=== PATIENT | male | born 1970 | race Caucasian/White ===

== ENCOUNTER 2016-09-26 16:30 | Emergency (ER) | payer BC ==
[2016-09-26 16:49] VITALS: BP 128/69; PULSE 99; RESP 16; TEMP 98.3
[2016-09-26] MEDS ORDERED: PROPARACAINE 0.5% OPHTH DROPS 15 ML BTL RIGHT EYE STA (18:45)
--- NOTE | 2016-09-26 18:52 | ED ---
Eye Problem HPI - General Chief complaint: Eye Problems Stated complaint: Eye Pain Time Seen by Provider: 09/26/16 18:38 Source: patient, RN notes reviewed, old records reviewed Mode of arrival: ambulatory Limitations: no limitations - History of Present Illness Initial comments: And is a 46-year-old male presenting plan of left eye pain for approximately 3 days. Patient reports that the pain started after trying on glasses at [facility]. Patient reports that he got a new pair of reading glasses and since then he has noticed increased redness and irritation of the left eye. He denies any drainage. He denies any foreign body to the eye. 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 Patient reports no decreased vision. He denies any pain with extraocular eye movements. He does not wear contacts. Patient denies any recent fever, chills, shortness of breath, chest pain, back pain, abdominal pain, nausea vomiting, numbness or tingling, dysuria or hematuria, constipation or diarrhea, headaches or visual changes, or any other current symptoms - Related Data Home Medications Medication Instructions Recorded Confirmed Atorvastatin [Lipitor] 10 mg PO DAILY 12/12/15 02/21/16 Citalopram Hydrobromide [CeleXA] 20 mg PO DAILY 12/12/15 02/21/16 Empagliflozin [Jardiance] 25 mg PO DAILY 12/12/15 02/21/16 Insulin Glargine [Lantus] 50 unit SQ HS 12/12/15 02/21/16 Pioglitazone [Actos] 30 mg PO DAILY 12/12/15 02/21/16 glipiZIDE [Glucotrol] 2.5 mg PO AC-BRKFST 12/12/15 02/21/16 metFORMIN HCL [Glucophage] 1,000 mg PO BID 12/12/15 02/21/16 Previous Rx's Medication Instructions Recorded Albuterol Inhaler [Ventolin Hfa 2 puff INHALATION Q4HR PRN #1 02/21/16 Inhaler] inhaler Promethazine 6.25MG/5Ml [Phenergan 6.25 mg PO Q4H #180 ml 02/21/16 Syrup] methylPREDNISolone [Medrol] 4 mg PO DIRECTED #1 tab.ds.pk 02/21/16 Allergies Allergy/AdvReac Type Severity Reaction Status Date / Time No Known Allergies Allergy Verified 09/26/16 16:49 Review of Systems ROS Statement: Those systems with pertinent positive or pertinent negative responses have been documented in the HPI. ROS Other: All systems not noted in ROS Statement are negative. Past Medical History Past Medical History: Diabetes Mellitus, Hyperlipidemia History of Any Multi-Drug Resistant Organisms: None Reported Past Surgical History: Cholecystectomy Past Psychological History: Anxiety Smoking Status: Former smoker Past Alcohol Use History: Occasional Past Drug Use History: None Reported General Exam - General Exam Comments Initial Comments: pleasant well appearing 46 year old male. Limitations: no limitations General appearance: alert, in no apparent distress Head exam: Present: atraumatic, normocephalic, normal inspection Eye exam: Present: PERRL, EOMI, conjunctival injection (left eye mild conjunctival injection. ). Absent: scleral icterus, periorbital swelling ENT exam: Present: normal exam, mucous membranes moist Neck exam: Present: normal inspection. Absent: tenderness, meningismus, lymphadenopathy Respiratory exam: Present: normal lung sounds bilaterally. Absent: respiratory distress, wheezes, rales, rhonchi, stridor Cardiovascular Exam: Present: regular rate, normal rhythm, normal heart sounds. Absent: systolic murmur, diastolic murmur, rubs, gallop, clicks GI/Abdominal exam: Present: soft, normal bowel sounds. Absent: distended, tenderness, guarding, rebound, rigid Extremities exam: Present: normal inspection, full ROM, normal capillary refill. Absent: tenderness, pedal edema, joint swelling, calf tenderness Back exam: Present: normal inspection Neurological exam: Present: alert, oriented X3, CN II-XII intact Psychiatric exam: Present: normal affect, normal mood Skin exam: Present: warm, dry, intact, normal color. Absent: rash Course Vital Signs 09/26/16 16:44 Temperature 98.3 F Pulse Rate 99 Respiratory 16 Rate Blood Pressure 128/69 O2 Sat by Pulse 97 Oximetry Procedures - Procedures Initial comment: Fluorescein eye exam preformed with 3 drops of proparicaine and a Wood's lamp. No evidence of foreign body after flipping eyelid and doing a through inspection. There is evdience of corneal abrasion at the 6 oclock position measuring 3mm. Patient tolerated the procedure well. Medical Decision Making - Medical Decision Making Patient is a 46 year old male with left eye injection for 3 days. He denies any eye drainage. Patient has evidence of a corneal abrasion at the 6 oclock position measuring 3 mm. Patient has been plaved on tobramycin drops and given a referral for opthamololgy. Patient has no changes in vision, and eyesight is 20/25 in both eyes. Patient understands treatment plan and will comply. Return parameters discussed. Disposition Clinical Impression: Corneal abrasion Disposition: HOME SELF-CARE Condition: Good Instructions: Corneal Abrasion (ED) Additional Instructions: Patient instructed to apply antibiotic drops every 4 hours as directed. Patient instructed to follow-up with primary care provider if symptoms continue to persist. Also follow-up with training director if any alarming signs or symptoms continue to occur. If any severe changes in vision return to the [facility]. Referrals: Summer De La Cruz DO [Primary Care Provider] - 1-2 days Hernandez De La Garza MD [STAFF PHYSICIAN] - 1-2 days Time of Disposition: 19:12
[2016-09-26] MEDS ORDERED: TOBRAMYCIN 0.3% OPHTH DROPS 5 ML BTL LEFT EYE STA (19:13)
== END 2016-09-26 19:22 | disposition home or self-care (01) ==
LOC: EC 16:30
DX: S05.02XA Injury of conjunctiva and corneal abrasion without foreign body, left eye, initial encounter (principal); X58.XXXA Exposure to other specified factors, initial encounter; E78.5 Hyperlipidemia, unspecified; E11.9 Type 2 diabetes mellitus without complications; Z87.891 Personal history of nicotine dependence; F41.9 Anxiety disorder, unspecified; Z79.899 Other long term (current) drug therapy; Z79.84 Long term (current) use of oral hypoglycemic drugs
CPT/HCPCS: 99283

== ENCOUNTER → 2016-10-05 | Outpatient (CLI) | payer BC ==
[2016-10-05 08:41] LABS: Hemoglobin A1C 16.2 % (4.2-6.1)
[2016-10-05 08:49] LABS: ALT 46 U/L (21-72); AST 19 U/L (17-59); Alkaline Phosphatase 113 U/L (38-126); Anion Gap 13 mmol/L; Blood Urea Nitrogen 23 mg/dL (9-20); Calcium 10.3 mg/dL (8.4-10.2); Carbon Dioxide 24 mmol/L (22-30); Chloride 102 mmol/L (98-107); HDL Cholesterol 49 mg/dL (40-60); Non-African American GFR(MDRD) >60 (>60 ml/min/1.73 sqM); Potassium 5.4 mmol/L (3.5-5.1); Sodium 139 mmol/L (137-145)
[2016-10-05 09:34] LABS: Glucose 460 mg/dL (74-99)
[2016-10-05 09:35] LABS: Cholesterol 350 mg/dL (<200); Triglycerides 511 mg/dL (<150)
== END | disposition home or self-care (01) ==
LOC: LABWHC1 07:56
PROVIDERS: ATTEND Internal Medicine Endocrinology, Diabetes & Metabolism
DX: E11.65 Type 2 diabetes mellitus with hyperglycemia (principal)
CPT/HCPCS: 36415; 80053; 80061; 82043; 83036

== ENCOUNTER 2017-04-30 12:53 | Inpatient (IN) | payer BC ==
[2017-04-30] MEDS ORDERED: SODIUM CHLORIDE 0.9% 1,000 ML IV STA ×2 (13:06→14:33)
--- NOTE | 2017-04-30 13:10 | ED ---
General Adult HPI <ArieMessi - Last Filed: 04/30/17 15:24> - General Source: patient, RN notes reviewed Mode of arrival: ambulatory Limitations: no limitations <Lakisha Gilliam - Last Filed: 04/30/17 15:28> - General Chief complaint: Skin/Abscess/Foreign Body Stated complaint: Male Time Seen by Provider: 04/30/17 13:01 - History of Present Illness Initial comments: 47-year-old male presents to the emergency department with a chief complaint of redness and swelling to the left testicle. Patient states it started as what looked like an ingrown hair and now is full testicle is red and swollen. Patient states it's very tender to touch. Patient admits to history of diabetes. He was put on Bactrim by his doctor a few days ago he states it is not getting any better. Patient denies any cough cold runny nose with this. Patient denies any nausea or vomiting. They were concerned due to the patient' s worsening symptoms so he thought that he should be seen. Patient states very tender to the touch better at rest or when not moving. Patient denies any recent fever, chills, shortness of breath, chest pain, back pain, abdominal pain , nausea vomiting, numbness or tingling, dysuria or hematuria, constipation or diarrhea, headaches or visual changes, or any other current symptoms. (Lakisha Gilliam) - Related Data Home Medications Medication Instructions Recorded Confirmed Citalopram Hydrobromide [CeleXA] 40 mg PO DAILY 12/12/15 04/30/17 Pioglitazone [Actos] 30 mg PO DAILY 12/12/15 04/30/17 Albuterol Inhaler [Ventolin Hfa 2 puff INHALATION RT-Q4H PRN 04/30/17 04/30/17 Inhaler] Dapagliflozin Propanediol [Farxiga] 10 mg PO DAILY 04/30/17 04/30/17 Liraglutide [Victoza 2-Jerry] 1.8 mg SQ DAILY 04/30/17 04/30/17 Ranitidine HCl [Zantac] 150 mg PO BID 04/30/17 04/30/17 Sulfamethox-Tmp 800-160Mg [Bactrim 1 tab PO Q12H 04/30/17 04/30/17 DS 800-160 mg] glipiZIDE [Glucotrol] 10 mg PO AC-BRKFST 04/30/17 04/30/17 metFORMIN HCL 1,000 mg PO BID 04/30/17 04/30/17 valACYclovir HCL [Valtrex] 1,000 mg PO TID 04/30/17 04/30/17 Allergies Allergy/AdvReac Type Severity Reaction Status Date / Time No Known Allergies Allergy Verified 04/30/17 14:12 Review of Systems ROS Other: All systems not noted in ROS Statement are negative. <Messi Sargent - Last Filed: 04/30/17 15:24> ROS Other: All systems not noted in ROS Statement are negative. <Lakisha Gilliam - Last Filed: 04/30/17 15:28> ROS Statement: Those systems with pertinent positive or pertinent negative responses have been documented in the HPI. Past Medical History Past Medical History: Diabetes Mellitus, Hyperlipidemia History of Any Multi-Drug Resistant Organisms: None Reported Past Surgical History: Cholecystectomy Past Psychological History: Anxiety Smoking Status: Former smoker Past Alcohol Use History: Occasional Past Drug Use History: None Reported <Lakisha Gilliam - Last Filed: 04/30/17 15:28> General Exam Limitations: no limitations General appearance: alert, in no apparent distress ENT exam: Present: normal exam, mucous membranes moist Neck exam: Present: normal inspection. Absent: tenderness, meningismus, lymphadenopathy Respiratory exam: Present: normal lung sounds bilaterally. Absent: respiratory distress, wheezes, rales, rhonchi, stridor Cardiovascular Exam: Present: regular rate, normal rhythm, normal heart sounds. Absent: systolic murmur, diastolic murmur, rubs, gallop, clicks exam: Present: testicular tenderness (To the left testicle), scrotal swelling (Left testicle), circumcision, other ( an erythematous swollen left testicle) Neurological exam: Present: alert, oriented X3 Psychiatric exam: Present: normal affect, normal mood Skin exam: Present: warm, dry, intact, normal color. Absent: rash <Lakisha Gilliam - Last Filed: 04/30/17 15:28> Medical Decision Making - Lab Data Result diagrams: 04/30/17 13:20 04/30/17 13:20 <Messi Sargent - Last Filed: 04/30/17 15:24> - Lab Data Result diagrams: 04/30/17 13:20 04/30/17 13:20 - Radiology Data Radiology results: report reviewed, image reviewed <Lakisha Gilliam - Last Filed: 04/30/17 15:28> - Medical Decision Making Medical decision-making. The patient presents with a tender swollen edematous scrotal sac for last several days. Previously on Augmentin now on Bactrim and infection swelling and pains getting worse. The patient is an insulin- dependent diabetic. Sugar is 450 in the emergency room. He states he did not take any of his antidiabetic medications today. He'll be started on fluids and insulin. The case was discussed with Dr. Dupree on-call urologist patient be admitted to Dr. Randolph with urology to consult. The patient was started on Zosyn. Dr. Sargent (Messi Sargent) 47 -year-old male presents emergency Department chief complaint of left testicular swelling with some associated drainage. At this time we will admit the patient has an elevated lactic acid. He has failed outpatient treatment. Nursing. Left scrotal cellulitis. Patient was started on Zosyn. We will consult urology admit to the patient's doctor Dr. Randolph. (Lakisha Gilliam) - Lab Data Lab Results 04/30/17 04/30/17 04/30/17 Range/Units 13:20 13:20 13:20 WBC 10.2 (3.8-10.6) k/uL RBC 4.19 L (4.30-5.90) m/uL Hgb 13.1 (13.0-17.5) gm/dL Hct 38.2 L (39.0-53.0) % MCV 91.2 (80.0-100.0) fL MCH 31.2 (25.0-35.0) pg MCHC 34.2 (31.0-37.0) g/dL RDW 14.0 (11.5-15.5) % Plt Count 231 (150-450) k/uL Neutrophils % 81 % Lymphocytes % 9 % Monocytes % 7 % Eosinophils % 1 % Basophils % 1 % Neutrophils # 8.2 H (1.3-7.7) k/uL Lymphocytes # 0.9 L (1.0-4.8) k/uL Monocytes # 0.7 (0-1.0) k/uL Eosinophils # 0.1 (0-0.7) k/uL Basophils # 0.1 (0-0.2) k/uL Sodium 135 L (137-145) mmol/L Potassium 4.3 (3.5-5.1) mmol/L Chloride 103 (98-107) mmol/L Carbon Dioxide 19 L (22-30) mmol/L Anion Gap 13 mmol/L BUN 13 (9-20) mg/dL Creatinine 0.90 (0.66-1.25) mg/dL Est GFR (MDRD) Af Amer >60 (>60 ml/min/1.73 sqM) Est GFR (MDRD) Non-Af >60 (>60 ml/min/1.73 sqM) Glucose 451 H* (74-99) mg/dL POC Glucose (mg/dL) (75-99) mg/dL POC Glu Environmental Protection Specialist ID Plasma Lactic Acid Don 2.5 H* (0.7-2.0) mmol/L Calcium 8.7 (8.4-10.2) mg/dL Total Bilirubin 0.6 (0.2-1.3) mg/dL AST 17 (17-59) U/L ALT 30 (21-72) U/L Alkaline Phosphatase 122 (38-126) U/L Total Protein 6.4 (6.3-8.2) g/dL Albumin 3.6 (3.5-5.0) g/dL Urine Color Urine Appearance (Clear) Urine pH (5.0-8.0) Ur Specific [place] (1.001-1.035) Urine Protein (Negative) Urine Glucose (UA) (Negative) Urine Ketones (Negative) Urine Blood (Negative) Urine Nitrite (Negative) Urine Bilirubin (Negative) Urine Urobilinogen (<2.0) mg/dL Ur Leukocyte Esterase (Negative) Acetone, Qual (Negative) 04/30/17 04/30/17 04/30/17 Range/Units 13:20 13:20 14:54 WBC (3.8-10.6) k/uL RBC (4.30-5.90) m/uL Hgb (13.0-17.5) gm/dL Hct (39.0-53.0) % MCV (80.0-100.0) fL MCH (25.0-35.0) pg MCHC (31.0-37.0) g/dL RDW (11.5-15.5) % Plt Count (150-450) k/uL Neutrophils % % Lymphocytes % % Monocytes % % Eosinophils % % Basophils % % Neutrophils # (1.3-7.7) k/uL Lymphocytes # (1.0-4.8) k/uL Monocytes # (0-1.0) k/uL Eosinophils # (0-0.7) k/uL Basophils # (0-0.2) k/uL Sodium (137-145) mmol/L Potassium (3.5-5.1) mmol/L Chloride (98-107) mmol/L Carbon Dioxide (22-30) mmol/L Anion Gap mmol/L BUN (9-20) mg/dL Creatinine (0.66-1.25) mg/dL Est GFR (MDRD) Af Amer (>60 ml/min/1.73 sqM) Est GFR (MDRD) Non-Af (>60 ml/min/1.73 sqM) Glucose (74-99) mg/dL POC Glucose (mg/dL) 414 H (75-99) mg/dL POC Glu Environmental Protection Specialist ID Lilian Belcher Plasma Lactic Acid Don (0.7-2.0) mmol/L Calcium (8.4-10.2) mg/dL Total Bilirubin (0.2-1.3) mg/dL AST (17-59) U/L ALT (21-72) U/L Alkaline Phosphatase (38-126) U/L Total Protein (6.3-8.2) g/dL Albumin (3.5-5.0) g/dL Urine Color Light Yellow Urine Appearance Clear (Clear) Urine pH 5.0 (5.0-8.0) Ur Specific [place] 1.027 (1.001-1.035) Urine Protein Negative (Negative) Urine Glucose (UA) 4+ H (Negative) Urine Ketones 1+ H (Negative) Urine Blood Negative (Negative) Urine Nitrite Negative (Negative) Urine Bilirubin Negative (Negative) Urine Urobilinogen <2.0 (<2.0) mg/dL Ur Leukocyte Esterase Negative (Negative) Acetone, Qual Negative (Negative) Disposition <Messi Sargent - Last Filed: 04/30/17 15:24> Decision Date: 04/30/17 Decision Time: 15:28 <Lakisha Gilliam - Last Filed: 04/30/17 15:28> Clinical Impression: Cellulitis of scrotum, Failure of outpatient treatment, Sepsis, Hyperglycemia Disposition: ADMITTED IP TO THIS [facility] Condition: Stable Referrals: Summer De La Cruz DO [Primary Care Provider] - 1-2 days
[2017-04-30 13:38] LABS: Appearance,Urine Clear (Clear); Bilirubin,Urine Negative (Negative); Glucose,Urine (UA) 4+ (Negative); Ketones,Urine 1+ (Negative); Leukocyte Esterase,Urine Negative (Negative); Nitrite,Urine Negative (Negative); Protein,Urine Negative (Negative); Specific Gravity,Urine 1.027 (1.001-1.035); UA Billing (MACRO vs. MICRO) CHEM; Urobilinogen,Urine <2.0 mg/dL (<2.0)
[2017-04-30 13:46] LABS: ALT 30 U/L (21-72); AST 17 U/L (17-59); Alkaline Phosphatase 122 U/L (38-126); Anion Gap 13 mmol/L; Basophils # (A) 0.1 k/uL (0-0.2); Basophils % (A) 1 %; Blood Urea Nitrogen 13 mg/dL (9-20); CH 32.6; CHCM 35.9; Calcium 8.7 mg/dL (8.4-10.2); Carbon Dioxide 19 mmol/L (22-30); Chloride 103 mmol/L (98-107); Eosinophils # (A) 0.1 k/uL (0-0.7); Eosinophils % (A) 1 %; HCT 38.2 % (39.0-53.0); HDW 2.91; HGB 13.1 gm/dL (13.0-17.5); Luc # (Auto) 0.23; Luc % (Auto) 2; Lymphocytes # (A) 0.9 k/uL (1.0-4.8); Lymphocytes % (A) 9 %; MCH 31.2 pg (25.0-35.0); MCHC 34.2 g/dL (31.0-37.0); MCV 91.2 fL (80.0-100.0); Mean Platelet Volume 8.8; Monocytes # (A) 0.7 k/uL (0-1.0); Monocytes % (A) 7 %; Neutrophils # (A) 8.2 k/uL (1.3-7.7); Neutrophils % (A) 81 %; Non-African American GFR(MDRD) >60 (>60 ml/min/1.73 sqM); Potassium 4.3 mmol/L (3.5-5.1); RBC 4.19 m/uL (4.30-5.90); Sodium 135 mmol/L (137-145); Total Bilirubin 0.6 mg/dL (0.2-1.3); Total Protein 6.4 g/dL (6.3-8.2); WBC 10.2 k/uL (3.8-10.6); WBC (Perox) 10.01
[2017-04-30 13:53] LABS: Glucose 451 mg/dL (74-99)
--- NOTE | 2017-04-30 14:15 | US ---
EXAMINATION TYPE: US scrotum with doppler. Grayscale and color Doppler Duplex imaging performed of juliette pickett scrotum. DATE OF EXAM: 04/30/2017 COMPARISON: NONE CLINICAL HISTORY: Pain. Pain bilaterally. Lump left testicle EXAM MEASUREMENTS: TESTICLES: Right Testicle: 3.7 x 2.4 x 2.2 cm Left Testicle: 3.3 x 1.9 x 2.8 cm EPIDIDYMIS HEAD: Right Epididymis: 2.2 cm Left Epididymis: 1.3 cm Doppler performed to assess for testicular vascularity; good bilateral color flow and waveforms are s een. There is no evidence of testicular torsion. Presence of hydroceles: yes, fluid collection lateral to right testicle = 2.7cm and lateral to left testicle = 2.8cm Presence of varicoceles: yes, medial to right testicle and lateral to left testicle Cystic area right epididymis = 0.4cm Increased size of varicoceles are seen on the bilaterally with Valsalva. Possible left inguinal herni a noted. IMPRESSION: 1. No current evidence of testicular torsion during the examination or epididymal orchitis. 2. Bilateral small hydroceles, simple on the left and minimally complex on the right. 3. Bilateral varicoceles. Nonemergent workup for the right varicocele is recommended. 4. Possible left inguinal hernia, correlate with clinical examination. 5. Benign 4 mm right epididymal cyst.
[2017-04-30] MEDS ORDERED: MORPHINE SULFATE 4 MG/ML SYRINGE IV STA (14:31)
[2017-04-30] MEDS ORDERED: INSULIN LISPRO (humaLOG) 300 UNIT/3 ML VIAL SQ ONE (14:54)
[2017-04-30] MEDS ORDERED: PIPERACILLIN-TAZOBACTAM 3.375 GM in DEXTROSE/WATER 1 50ML.BAG IVPB STA (14:54)
[2017-04-30 14:59] LABS: Glucose,Whole Blood 414 mg/dL (75-99)
[2017-04-30] MEDS ORDERED: ACETAMINOPHEN TAB 325 MG TAB PO PRN (15:28)
[2017-04-30] MEDS ORDERED: IBUPROFEN 400 MG TAB PO PRN (15:28)
[2017-04-30] MEDS ORDERED: NALOXONE 0.4 MG/ML 1 ML VIAL IV PRN (15:28)
[2017-04-30] MEDS ORDERED: MORPHINE SULFATE 4 MG/ML SYRINGE IV PRN (15:28)
[2017-04-30] MEDS ORDERED: ALBUTEROL NEBULIZED 2.5 MG/3 ML INHALATION PRN (15:30)
[2017-04-30 15:47] LABS: Glucose,Whole Blood 356 mg/dL (75-99)
[2017-04-30] MEDS: HYDROcodone/APAP 5-325MG 1 EACH TAB PO PRN (17:18)
[2017-04-30 17:25] LABS: Glucose,Whole Blood 264 mg/dL (75-99)
[2017-04-30 17:45] VITALS: BMI 32.4
[2017-04-30] MEDS: SODIUM CHLORIDE 0.9% 1,000 ML IV SCH (18:16)
[2017-04-30 18:23] LABS: Glucose,Whole Blood 290 mg/dL (75-99)
[2017-04-30] MEDS: INSULIN LISPRO (humaLOG) 300 UNIT/3 ML VIAL SQ SCH ×2 (18:31→20:50)
[2017-04-30 20:36] LABS: Hemoglobin A1C 11.9 % (4.2-6.1)
[2017-04-30 20:40] LABS: Glucose,Whole Blood 223 mg/dL (75-99)
[2017-04-30] MEDS: FAMOTIDINE 20 MG TAB PO SCH (20:49)
[2017-04-30] MEDS: valACYclovir HCL 1,000 MG TABLET PO SCH (20:49)
[2017-04-30] MEDS: metFORMIN 500 MG TAB PO SCH (20:50)
[2017-04-30] MEDS: PIPERACILLIN-TAZOBACTAM 3.375 GM in DEXTROSE/WATER 1 50ML.BAG IVPB SCH (23:02)
[2017-05-01] MEDS: SODIUM CHLORIDE 0.9% 1,000 ML IV SCH ×2 (03:07→16:01)
[2017-05-01 07:19] LABS: Glucose,Whole Blood 167 mg/dL (75-99)
[2017-05-01] MEDS: HYDROcodone/APAP 5-325MG 1 EACH TAB PO PRN ×3 (08:31→21:41)
[2017-05-01] MEDS: PIPERACILLIN-TAZOBACTAM 3.375 GM in DEXTROSE/WATER 1 50ML.BAG IVPB SCH ×2 (08:32→16:02)
[2017-05-01 08:40] LABS: Basophils # (A) 0.1 k/uL (0-0.2); Basophils % (A) 1 %; CH 31.6; CHCM 35.4; Eosinophils # (A) 0.1 k/uL (0-0.7); Eosinophils % (A) 2 %; HCT 34.1 % (39.0-53.0); HDW 3.01; HGB 12.1 gm/dL (13.0-17.5); Luc # (Auto) 0.22; Luc % (Auto) 3; Lymphocytes # (A) 1.2 k/uL (1.0-4.8); Lymphocytes % (A) 13 %; MCH 31.9 pg (25.0-35.0); MCHC 35.6 g/dL (31.0-37.0); MCV 89.5 fL (80.0-100.0); Monocytes # (A) 0.6 k/uL (0-1.0); Monocytes % (A) 6 %; Neutrophils # (A) 6.9 k/uL (1.3-7.7); Neutrophils % (A) 76 %; RDW 13.3 % (11.5-15.5); WBC (Perox) 9.26
[2017-05-01 08:58] LABS: ALT 34 U/L (21-72); AST 28 U/L (17-59); Alkaline Phosphatase 117 U/L (38-126); Anion Gap 7 mmol/L; Blood Urea Nitrogen 12 mg/dL (9-20); Calcium 7.9 mg/dL (8.4-10.2); Carbon Dioxide 23 mmol/L (22-30); Chloride 106 mmol/L (98-107); Glucose 165 mg/dL (74-99); Non-African American GFR(MDRD) >60 (>60 ml/min/1.73 sqM); Potassium 4.6 mmol/L (3.5-5.1); Sodium 136 mmol/L (137-145); Total Bilirubin 0.6 mg/dL (0.2-1.3); Total Protein 5.6 g/dL (6.3-8.2)
[2017-05-01] MEDS ORDERED: NON-FORMULARY DRUG (Dapagliflozin Propanediol [Farxiga] 10 MG) PO SCH (09:00)
[2017-05-01] MEDS ORDERED: NON-FORMULARY DRUG (Liraglutide [Victoza 2-Pak] 1.8 MG) SQ SCH (09:00)
[2017-05-01] MEDS: INSULIN LISPRO (humaLOG) 300 UNIT/3 ML VIAL SQ SCH ×4 (09:13→21:42)
[2017-05-01] MEDS: CITALOPRAM HYDROBROMIDE 20 MG TAB PO SCH (09:52)
[2017-05-01] MEDS: valACYclovir HCL 1,000 MG TABLET PO SCH ×3 (09:52→21:41)
[2017-05-01] MEDS: FAMOTIDINE 20 MG TAB PO SCH ×2 (09:52→21:41)
[2017-05-01] MEDS: metFORMIN 500 MG TAB PO SCH ×2 (09:52→21:41)
[2017-05-01] MEDS: PIOGLITAZONE 30 MG TAB PO SCH (09:53)
[2017-05-01] MEDS: glipiZIDE 10 MG TAB PO SCH (09:54)
--- NOTE | 2017-05-01 10:25 | P.HPIM ---
History of Present Illness H&P Date: 05/01/17 Chief Complaint: Scrotal cellulitis and abscess This is a 47-year-old male, patient of Dr. Baker. He has a known past medical history of diabetes mellitus and hyperlipidemia. Patient presents to the emergency room with increased scrotal swelling and pain and tenderness in the left testicle. Patient has a wound with some drainage coming out of it on the left testicle. Patient reports that he thinks it was an ingrown hair. And also that he had tried to pop it at one point. The symptoms started last Monday. He's been on Augmentin and Bactrim with no improvement in symptoms. He did feel some slight fever at home. But since his symptoms were not improving with antibiotics he presented to the emergency room for further evaluation and treatment. Patient was started on IV Zosyn and urology was consulted. Patient is scheduled for an I&D with urology this afternoon. He also had a blood sugar of 451. Hemoglobin A1c is 11.9. Patient reports that he has been taking his diabetes meds at home however he has not been following a very strict diet. Patient denies any chills or sweats. Denies any nausea or vomiting. Denies any bowel movement changes or urinary symptoms. Review of Systems Please refer to HPI otherwise unremarkable Past Medical History Past Medical History: Diabetes Mellitus, Hyperlipidemia History of Any Multi-Drug Resistant Organisms: None Reported Past Surgical History: Cholecystectomy Past Anesthesia/Blood Transfusion Reactions: No Reported Reaction Past Psychological History: Anxiety Smoking Status: Former smoker Past Alcohol Use History: None Reported, Occasional Past Drug Use History: None Reported - Past Family History Mother Family Medical History: Diabetes Mellitus Medications and Allergies Home Medications Medication Instructions Recorded Confirmed Type Citalopram Hydrobromide [CeleXA] 40 mg PO DAILY 12/12/15 04/30/17 History Pioglitazone [Actos] 30 mg PO DAILY 12/12/15 04/30/17 History Albuterol Inhaler [Ventolin Hfa 2 puff INHALATION RT-Q4H PRN 04/30/17 04/30/17 History Inhaler] Dapagliflozin Propanediol [Farxiga] 10 mg PO DAILY 04/30/17 04/30/17 History Liraglutide [Victoza 2-Jerry] 1.8 mg SQ DAILY 04/30/17 04/30/17 History Ranitidine HCl [Zantac] 150 mg PO BID 04/30/17 04/30/17 History Sulfamethox-Tmp 800-160Mg [Bactrim 1 tab PO Q12H 04/30/17 04/30/17 History DS 800-160 mg] glipiZIDE [Glucotrol] 10 mg PO AC-BRKFST 04/30/17 04/30/17 History metFORMIN HCL 1,000 mg PO BID 04/30/17 04/30/17 History valACYclovir HCL [Valtrex] 1,000 mg PO TID 04/30/17 04/30/17 History Allergies Allergy/AdvReac Type Severity Reaction Status Date / Time No Known Allergies Allergy Verified 04/30/17 14:12 Physical Exam Vitals: Vital Signs Temp Pulse Pulse Resp BP BP Pulse Ox 05/01/17 08:00 16 05/01/17 07:00 98.5 F 81 16 109/61 98 04/30/17 21:34 98.7 F 80 16 103/62 100 04/30/17 17:48 99 F 85 16 107/57 97 04/30/17 17:23 98.4 F 68 17 119/70 98 04/30/17 15:39 61 18 121/60 97 04/30/17 12:54 99.1 F 78 18 133/69 99 Intake and Output 04/30/17 05/01/17 05/01/17 22:59 06:59 14:59 Intake Total 300 800 Balance 300 800 Intake: IV 300 800 Sodium Chloride 0.9% 1, 300 800 000 ml @ 100 mls/hr IV . Q10H [facility] Rx#:[id number] Other: Voiding Method Toilet Toilet # Voids 1 1 1 Weight 94 kg 94 kg 94 kg Patient Weight 05/02/17 06:59 Weight 94 kg Head normocephalic Neck supple Lungs clear to auscultation bilaterally no wheezing or crackles Heart regular rate and rhythm S1-S2, no rub or gallop Abdomen is soft nontender nondistended positive bowel sounds no hepatosplenomegaly Extremities no edema Neuro alert and orientated to 3 : Scrotum is red and swollen. Top of left testicle wound present with scabbing. From and tender with palpation Results CBC & Chem 7: 05/01/17 07:43 05/01/17 07:43 Labs: Abnormal Lab Results - Last 24 Hours (Table) 04/30/17 04/30/17 04/30/17 Range/Units 13:20 13:20 13:20 RBC 4.19 L (4.30-5.90) m/uL Hgb (13.0-17.5) gm/dL Hct 38.2 L (39.0-53.0) % Neutrophils # 8.2 H (1.3-7.7) k/uL Lymphocytes # 0.9 L (1.0-4.8) k/uL Sodium 135 L (137-145) mmol/L Carbon Dioxide 19 L (22-30) mmol/L Glucose 451 H* (74-99) mg/dL POC Glucose (mg/dL) (75-99) mg/dL Hemoglobin A1c (4.2-6.1) % Plasma Lactic Acid Don 2.5 H* (0.7-2.0) mmol/L Calcium (8.4-10.2) mg/dL Total Protein (6.3-8.2) g/dL Albumin (3.5-5.0) g/dL Urine Glucose (UA) (Negative) Urine Ketones (Negative) 04/30/17 04/30/17 04/30/17 Range/Units 13:20 13:20 14:54 RBC (4.30-5.90) m/uL Hgb (13.0-17.5) gm/dL Hct (39.0-53.0) % Neutrophils # (1.3-7.7) k/uL Lymphocytes # (1.0-4.8) k/uL Sodium (137-145) mmol/L Carbon Dioxide (22-30) mmol/L Glucose (74-99) mg/dL POC Glucose (mg/dL) 414 H (75-99) mg/dL Hemoglobin A1c 11.9 H (4.2-6.1) % Plasma Lactic Acid Don (0.7-2.0) mmol/L Calcium (8.4-10.2) mg/dL Total Protein (6.3-8.2) g/dL Albumin (3.5-5.0) g/dL Urine Glucose (UA) 4+ H (Negative) Urine Ketones 1+ H (Negative) 04/30/17 04/30/17 04/30/17 Range/Units 15:44 17:22 18:13 RBC (4.30-5.90) m/uL Hgb (13.0-17.5) gm/dL Hct (39.0-53.0) % Neutrophils # (1.3-7.7) k/uL Lymphocytes # (1.0-4.8) k/uL Sodium (137-145) mmol/L Carbon Dioxide (22-30) mmol/L Glucose (74-99) mg/dL POC Glucose (mg/dL) 356 H 264 H 290 H (75-99) mg/dL Hemoglobin A1c (4.2-6.1) % Plasma Lactic Acid Don (0.7-2.0) mmol/L Calcium (8.4-10.2) mg/dL Total Protein (6.3-8.2) g/dL Albumin (3.5-5.0) g/dL Urine Glucose (UA) (Negative) Urine Ketones (Negative) 04/30/17 05/01/17 05/01/17 Range/Units 20:39 07:16 07:43 RBC 3.80 L (4.30-5.90) m/uL Hgb 12.1 L (13.0-17.5) gm/dL Hct 34.1 L (39.0-53.0) % Neutrophils # (1.3-7.7) k/uL Lymphocytes # (1.0-4.8) k/uL Sodium (137-145) mmol/L Carbon Dioxide (22-30) mmol/L Glucose (74-99) mg/dL POC Glucose (mg/dL) 223 H 167 H (75-99) mg/dL Hemoglobin A1c (4.2-6.1) % Plasma Lactic Acid Don (0.7-2.0) mmol/L Calcium (8.4-10.2) mg/dL Total Protein (6.3-8.2) g/dL Albumin (3.5-5.0) g/dL Urine Glucose (UA) (Negative) Urine Ketones (Negative) 05/01/17 Range/Units 07:43 RBC (4.30-5.90) m/uL Hgb (13.0-17.5) gm/dL Hct (39.0-53.0) % Neutrophils # (1.3-7.7) k/uL Lymphocytes # (1.0-4.8) k/uL Sodium 136 L (137-145) mmol/L Carbon Dioxide (22-30) mmol/L Glucose 165 H (74-99) mg/dL POC Glucose (mg/dL) (75-99) mg/dL Hemoglobin A1c (4.2-6.1) % Plasma Lactic Acid Don (0.7-2.0) mmol/L Calcium 7.9 L (8.4-10.2) mg/dL Total Protein 5.6 L (6.3-8.2) g/dL Albumin 2.8 L (3.5-5.0) g/dL Urine Glucose (UA) (Negative) Urine Ketones (Negative) Thrombosis Risk Factor Assmnt - Choose All That Apply Each Factor Represents 1 point: Age 41-60 years, Obesity (BMI >25), Sepsis (< 1month) Each Risk Factor Represents 2 Points: Patient confined to bed Other congenital or acquired thrombophilia - If yes, enter type in comment: No Thrombosis Risk Factor Assessment Total Risk Factor Score: 5 Thrombosis Risk Factor Assessment Level: High Risk Assessment and Plan Plan: 1. Scrotal cellulitis and left testicular abscess: Continue IV Zosyn. Urology consulted and plan for I&D this afternoon. Failed outpatient antibiotics. 2. Elevated lactic acid on admission now improved secondary to the left testicular abscess and cellulitis 3. Diabetes mellitus type 2 with uncontrolled blood sugars. Blood sugar 451 on admission with a hemoglobin A1c of 11.9. Blood sugars now 167. Continue sliding scale coverage. He is nothing by mouth. Continue metformin. Acetone negative 4. Hyperlipidemia GI prophylaxis Pepcid and DVT prophylaxis will give SCDs since patient is having surgical procedure Time with Patient: Greater than 30 (Greater than 50% of the total time spent in counseling and coordination of care.I performed an examination of the patient and discussed their management with the physician Sergeant At Arms. I have reviewed the Physician Sergeant At [employer]'s notes and agree with the documented findings and plan of care)
[2017-05-01 11:31] LABS: Glucose,Whole Blood 135 mg/dL (75-99)
--- NOTE | 2017-05-01 16:36 | P.GSCN ---
History of Present Illness Consult date: 05/01/17 Reason for Consult: Scrotal pain and swelling Requesting physician: Michael Randolph History of present illness: The patient is a 47-year-old white male who has experienced left scrotal pain and swelling since April 26, 2017. He saw Dr. De La Cruz at that time, and was placeon [facility]. However, his condition has worsened. He initially felt that he had an ingrown hair. He has had no prior similar episodes. Review of Systems - Constitutional Reports chills, Reports fever - Gastrointestinal Denies nausea, Denies vomiting - Genitourinary Denies dysuria, Denies hematuria Past Medical History Past Medical History: Diabetes Mellitus, Hyperlipidemia History of Any Multi-Drug Resistant Organisms: None Reported Past Surgical History: Cholecystectomy Past Anesthesia/Blood Transfusion Reactions: No Reported Reaction Past Psychological History: Anxiety Smoking Status: Former smoker Past Alcohol Use History: None Reported, Occasional Past Drug Use History: None Reported - Past Family History Mother Family Medical History: Diabetes Mellitus Medications and Allergies Home Medications Medication Instructions Recorded Confirmed Type Citalopram Hydrobromide [CeleXA] 40 mg PO DAILY 12/12/15 04/30/17 History Pioglitazone [Actos] 30 mg PO DAILY 12/12/15 04/30/17 History Albuterol Inhaler [Ventolin Hfa 2 puff INHALATION RT-Q4H PRN 04/30/17 04/30/17 History Inhaler] Dapagliflozin Propanediol [Farxiga] 10 mg PO DAILY 04/30/17 04/30/17 History Liraglutide [Victoza 2-Jerry] 1.8 mg SQ DAILY 04/30/17 04/30/17 History Ranitidine HCl [Zantac] 150 mg PO BID 04/30/17 04/30/17 History Sulfamethox-Tmp 800-160Mg [Bactrim 1 tab PO Q12H 04/30/17 04/30/17 History DS 800-160 mg] glipiZIDE [Glucotrol] 10 mg PO AC-BRKFST 04/30/17 04/30/17 History metFORMIN HCL 1,000 mg PO BID 04/30/17 04/30/17 History valACYclovir HCL [Valtrex] 1,000 mg PO TID 04/30/17 04/30/17 History Allergies Allergy/AdvReac Type Severity Reaction Status Date / Time No Known Allergies Allergy Verified 04/30/17 14:12 Surgical - Exam Vital Signs Temp Pulse Resp BP Pulse Ox 99.1 F 78 18 133/69 99 04/30/17 12:54 04/30/17 12:54 04/30/17 12:54 04/30/17 12:54 04/30/17 12:54 - General well developed, well nourished, no distress - Respiratory normal respiratory effort - Genitourinary normal penis with no external lesions, other (moderate left scrotal edema, with a small area of fluctuance on the upper anterior aspect of the left hemiscrotum) Results - Labs 05/01/17 07:43 05/01/17 07:43 Abnormal Lab Results - Last 24 Hours (Table) 04/30/17 04/30/17 04/30/17 Range/Units 13:20 13:20 13:20 RBC 4.19 L (4.30-5.90) m/uL Hct 38.2 L (39.0-53.0) % Neutrophils # 8.2 H (1.3-7.7) k/uL Lymphocytes # 0.9 L (1.0-4.8) k/uL Sodium 135 L (137-145) mmol/L Carbon Dioxide 19 L (22-30) mmol/L Glucose 451 H* (74-99) mg/dL POC Glucose (mg/dL) (75-99) mg/dL Hemoglobin A1c (4.2-6.1) % Plasma Lactic Acid Don 2.5 H* (0.7-2.0) mmol/L Urine Glucose (UA) (Negative) Urine Ketones (Negative) 04/30/17 04/30/17 04/30/17 Range/Units 13:20 13:20 14:54 RBC (4.30-5.90) m/uL Hct (39.0-53.0) % Neutrophils # (1.3-7.7) k/uL Lymphocytes # (1.0-4.8) k/uL Sodium (137-145) mmol/L Carbon Dioxide (22-30) mmol/L Glucose (74-99) mg/dL POC Glucose (mg/dL) 414 H (75-99) mg/dL Hemoglobin A1c 11.9 H (4.2-6.1) % Plasma Lactic Acid Don (0.7-2.0) mmol/L Urine Glucose (UA) 4+ H (Negative) Urine Ketones 1+ H (Negative) 04/30/17 04/30/17 04/30/17 Range/Units 15:44 17:22 18:13 RBC (4.30-5.90) m/uL Hct (39.0-53.0) % Neutrophils # (1.3-7.7) k/uL Lymphocytes # (1.0-4.8) k/uL Sodium (137-145) mmol/L Carbon Dioxide (22-30) mmol/L Glucose (74-99) mg/dL POC Glucose (mg/dL) 356 H 264 H 290 H (75-99) mg/dL Hemoglobin A1c (4.2-6.1) % Plasma Lactic Acid Don (0.7-2.0) mmol/L Urine Glucose (UA) (Negative) Urine Ketones (Negative) 04/30/17 Range/Units 20:39 RBC (4.30-5.90) m/uL Hct (39.0-53.0) % Neutrophils # (1.3-7.7) k/uL Lymphocytes # (1.0-4.8) k/uL Sodium (137-145) mmol/L Carbon Dioxide (22-30) mmol/L Glucose (74-99) mg/dL POC Glucose (mg/dL) 223 H (75-99) mg/dL Hemoglobin A1c (4.2-6.1) % Plasma Lactic Acid Don (0.7-2.0) mmol/L Urine Glucose (UA) (Negative) Urine Ketones (Negative) Diabetes panel 04/30/17 04/30/17 Range/Units 13:20 13:20 Sodium 135 L (137-145) mmol/L Potassium 4.3 (3.5-5.1) mmol/L Chloride 103 (98-107) mmol/L Carbon Dioxide 19 L (22-30) mmol/L BUN 13 (9-20) mg/dL Creatinine 0.90 (0.66-1.25) mg/dL Glucose 451 H* (74-99) mg/dL Hemoglobin A1c 11.9 H (4.2-6.1) % Calcium 8.7 (8.4-10.2) mg/dL AST 17 (17-59) U/L ALT 30 (21-72) U/L Alkaline Phosphatase 122 (38-126) U/L Total Protein 6.4 (6.3-8.2) g/dL Albumin 3.6 (3.5-5.0) g/dL Calcium panel 04/30/17 Range/Units 13:20 Calcium 8.7 (8.4-10.2) mg/dL Albumin 3.6 (3.5-5.0) g/dL Pituitary panel 04/30/17 Range/Units 13:20 Sodium 135 L (137-145) mmol/L Potassium 4.3 (3.5-5.1) mmol/L Chloride 103 (98-107) mmol/L Carbon Dioxide 19 L (22-30) mmol/L BUN 13 (9-20) mg/dL Creatinine 0.90 (0.66-1.25) mg/dL Glucose 451 H* (74-99) mg/dL Calcium 8.7 (8.4-10.2) mg/dL Adrenal panel 04/30/17 Range/Units 13:20 Sodium 135 L (137-145) mmol/L Potassium 4.3 (3.5-5.1) mmol/L Chloride 103 (98-107) mmol/L Carbon Dioxide 19 L (22-30) mmol/L BUN 13 (9-20) mg/dL Creatinine 0.90 (0.66-1.25) mg/dL Glucose 451 H* (74-99) mg/dL Calcium 8.7 (8.4-10.2) mg/dL Total Bilirubin 0.6 (0.2-1.3) mg/dL AST 17 (17-59) U/L ALT 30 (21-72) U/L Alkaline Phosphatase 122 (38-126) U/L Total Protein 6.4 (6.3-8.2) g/dL Albumin 3.6 (3.5-5.0) g/dL Assessment and Plan (1) Scrotal abscess Status: Acute Plan: The patient is a 47-year-old Diabetic male with progressive left scrotal pain and swelling. Ultrasound revealed possible hydroceles, but an abscess is clinically suspected. For this reason, I have suggested he undergo incision and drainage with possible drain placement. The rationale for this procedure was discussed, as were potential risks. These include anesthesia, persistent infection, and testicular injury. Time with Patient: Greater than 30
[2017-05-01 16:55] LABS: Glucose,Whole Blood 101 mg/dL (75-99)
[2017-05-01] MEDS ORDERED: ONDANSETRON 4 MG/2 ML VIAL IVP ONE (16:59)
[2017-05-01] MEDS ORDERED: IV FLUID CONTINUATION 1,000 ML IV ONE (17:00)
[2017-05-01] MEDS ORDERED: LIDOCAINE 1% INJ 10MG/ML (20 ML MDV) ONE (17:17)
[2017-05-01] MEDS ORDERED: PROPOFOL 10 MG/ML 20 ML VIAL IV ONE (17:17)
[2017-05-01] MEDS ORDERED: MIDAZOLAM 2 MG/2 ML VIAL ONE (17:17)
[2017-05-01] MEDS ORDERED: fentaNYL (PF) 50 MCG/ML 2 ML AMP ONE (17:17)
--- NOTE | 2017-05-01 17:48 | P.OP ---
Date of Procedure: 05/01/17 Preoperative Diagnosis: Left Scrotal Abscess Postoperative Diagnosis: Same Procedure(s) Performed: Incision and Drainage of Left Scrotal Abscess Implants: Anesthesia: CHANTALA Surgeon: Rd Ortega Estimated Blood Loss (ml): 20 IV fluids (ml): 300 Pathology: none sent Condition: stable Disposition: PACU Indications for Procedure: The patient is a 47-year-old male who developed left scrotal pain and swelling on 04/26/2017. His condition has worsened despite treatment with Bactrim. He is presumed to have a left scrotal abscess and comes for incision and drainage. Operative Findings: Abscess involving the upper left hemiscrotum. Description of Procedure: The patient was taken to the operating room and placed in the supine position, with his legs frog legged. The external genitalia was prepped and draped sterilely. The scrotum was examined. A small opening was present on the anterior aspect of the left upper hemiscrotum. Purulence could be expressed through this. Cultures were sent. The scalpel was then used to make a transverse incision to enlarge this opening to approximately 1 cm in length. A hemostat was passed into the wound to break down any loculations, thus opening the abscess cavity. The cavity extended superiorly only approximately 5 millimeters. Inferiorly, the cavity extended 3-4 cm. The cavity extended medially somewhat, but not at all laterally. The hemostat was passed inferiorly , and the scalpel was used to make a counterincision through the scrotal skin at the inferior aspect of the abscess cavity. The wound was then irrigated with 0.9 normal saline. A quarter-inch [place] drain was passed between the 2 incisions, and was sutured in place. The wound was again irrigated. There was no residual purulence. The wound was then packed with iodoform gauze. Blood loss was minimal. All sponge and needle counts were correct. Fluffs were placed over the incisions, followed by a scrotal support. The patient tolerated the procedure well was taken to the recovery room in stable condition.
[2017-05-01 18:09] LABS: Glucose,Whole Blood 105 mg/dL (75-99)
[2017-05-01 19:44] LABS: Glucose,Whole Blood 150 mg/dL (75-99)
[2017-05-02] MEDS: PIPERACILLIN-TAZOBACTAM 3.375 GM in DEXTROSE/WATER 1 50ML.BAG IVPB SCH ×4 (00:08→23:39)
[2017-05-02] MEDS: SODIUM CHLORIDE 0.9% 1,000 ML IV SCH ×3 (00:08→22:33)
[2017-05-02] MEDS: HYDROcodone/APAP 5-325MG 1 EACH TAB PO PRN ×3 (07:12→19:49)
[2017-05-02] MEDS: glipiZIDE 10 MG TAB PO SCH (07:12)
[2017-05-02 07:22] LABS: Glucose,Whole Blood 168 mg/dL (75-99)
[2017-05-02 07:54] LABS: Basophils # (A) 0.1 k/uL (0-0.2); Basophils % (A) 1 %; CH 32.5; CHCM 35.1; Eosinophils # (A) 0.2 k/uL (0-0.7); Eosinophils % (A) 2 %; HCT 35.8 % (39.0-53.0); HDW 2.98; HGB 11.9 gm/dL (13.0-17.5); Luc # (Auto) 0.21; Luc % (Auto) 3; Lymphocytes # (A) 1.1 k/uL (1.0-4.8); Lymphocytes % (A) 13 %; MCHC 33.3 g/dL (31.0-37.0); Mean Platelet Volume 8.5; Monocytes # (A) 0.5 k/uL (0-1.0); Monocytes % (A) 6 %; Neutrophils # (A) 6.4 k/uL (1.3-7.7); Neutrophils % (A) 76 %; RBC 3.84 m/uL (4.30-5.90); RDW 13.7 % (11.5-15.5); WBC 8.4 k/uL (3.8-10.6)
[2017-05-02] MEDS: INSULIN LISPRO (humaLOG) 300 UNIT/3 ML VIAL SQ SCH ×4 (07:56→20:23)
[2017-05-02] MEDS: metFORMIN 500 MG TAB PO SCH ×2 (07:57→20:22)
[2017-05-02] MEDS: FAMOTIDINE 20 MG TAB PO SCH ×2 (07:57→20:22)
[2017-05-02] MEDS: PIOGLITAZONE 30 MG TAB PO SCH (07:57)
[2017-05-02] MEDS: valACYclovir HCL 1,000 MG TABLET PO SCH ×3 (07:57→22:32)
[2017-05-02] MEDS: CITALOPRAM HYDROBROMIDE 20 MG TAB PO SCH (07:57)
[2017-05-02 08:27] LABS: ALT 38 U/L (21-72); AST 22 U/L (17-59); Alkaline Phosphatase 144 U/L (38-126); Anion Gap 10 mmol/L; Blood Urea Nitrogen 11 mg/dL (9-20); Calcium 8.2 mg/dL (8.4-10.2); Carbon Dioxide 20 mmol/L (22-30); Chloride 107 mmol/L (98-107); Glucose 163 mg/dL (74-99); Non-African American GFR(MDRD) >60 (>60 ml/min/1.73 sqM); Potassium 4.9 mmol/L (3.5-5.1); Sodium 137 mmol/L (137-145); Total Bilirubin 0.5 mg/dL (0.2-1.3); Total Protein 5.9 g/dL (6.3-8.2)
--- NOTE | 2017-05-02 10:51 | P.PN ---
Subjective Principal diagnosis: POD #1, s/p I & D of scrotal abscess Patient states he is feeling much better. Objective - Vital Signs Vital signs: Vital Signs Temp 97.1 F L 05/02/17 07:00 Pulse 84 05/02/17 07:34 Resp 18 05/02/17 07:00 BP 115/59 05/02/17 07:00 Pulse Ox 96 05/02/17 07:24 Intake & Output 05/01/17 05/02/17 05/02/17 18:59 06:59 18:59 Intake Total 350 1490 Output Total 20 Balance 330 1490 Weight 94 kg Intake: IV 350 900 Sodium Chloride 0.9% 1, 900 000 ml @ 100 mls/hr IV . Q10H LUIZA Rx#:[id number] Oral 590 Output: Estimated Blood Loss 20 Other: Voiding Method Toilet Toilet # Voids 1 2 - Constitutional General appearance: Present: cooperative, no acute distress - Genitourinary Genitourinary Comment(s): Normal phallus. Mild serosanguinous scrotal drainage. Packing removed. No purulence. - Psychiatric Psychiatric: Present: A&O x's 3, appropriate affect - Labs CBC & Chem 7: 05/02/17 07:22 05/02/17 07:22 Labs: Abnormal Lab Results - Last 24 Hours (Table) 05/01/17 05/01/17 05/01/17 Range/Units 11:27 16:53 18:05 RBC (4.30-5.90) m/uL Hgb (13.0-17.5) gm/dL Hct (39.0-53.0) % Carbon Dioxide (22-30) mmol/L Glucose (74-99) mg/dL POC Glucose (mg/dL) 135 H 101 H 105 H (75-99) mg/dL Calcium (8.4-10.2) mg/dL Alkaline Phosphatase (38-126) U/L Total Protein (6.3-8.2) g/dL Albumin (3.5-5.0) g/dL 05/01/17 05/02/17 05/02/17 Range/Units 19:41 07:21 07:22 RBC 3.84 L (4.30-5.90) m/uL Hgb 11.9 L (13.0-17.5) gm/dL Hct 35.8 L (39.0-53.0) % Carbon Dioxide (22-30) mmol/L Glucose (74-99) mg/dL POC Glucose (mg/dL) 150 H 168 H (75-99) mg/dL Calcium (8.4-10.2) mg/dL Alkaline Phosphatase (38-126) U/L Total Protein (6.3-8.2) g/dL Albumin (3.5-5.0) g/dL 05/02/17 Range/Units 07:22 RBC (4.30-5.90) m/uL Hgb (13.0-17.5) gm/dL Hct (39.0-53.0) % Carbon Dioxide 20 L (22-30) mmol/L Glucose 163 H (74-99) mg/dL POC Glucose (mg/dL) (75-99) mg/dL Calcium 8.2 L (8.4-10.2) mg/dL Alkaline Phosphatase 144 H (38-126) U/L Total Protein 5.9 L (6.3-8.2) g/dL Albumin 2.9 L (3.5-5.0) g/dL Microbiology - Last 24 Hours (Table) 05/01/17 17:30 Gram Stain - Preliminary Scrotum Wound Culture - Preliminary 05/01/17 17:30 Anaerobic Culture - Preliminary Scrotum 04/30/17 13:20 Blood Culture - Preliminary Blood No Growth after 24 hours Assessment and Plan (1) Scrotal abscess Status: Acute Plan: Continue Zosyn. Cultures pending. Local wound care.
[2017-05-02 12:02] LABS: Glucose,Whole Blood 198 mg/dL (75-99)
--- NOTE | 2017-05-02 17:05 | P.PN ---
Subjective This is a 47-year-old male, patient of Dr. Baker. He has a known past medical history of diabetes mellitus and hyperlipidemia. Patient presents to the emergency room with increased scrotal swelling and pain and tenderness in the left testicle. Patient has a wound with some drainage coming out of it on the left testicle. Patient reports that he thinks it was an ingrown hair. And also that he had tried to pop it at one point. The symptoms started last Monday. He's been on Augmentin and Bactrim with no improvement in symptoms. He did feel some slight fever at home. But since his symptoms were not improving with antibiotics he presented to the emergency room for further evaluation and treatment. Patient was started on IV Zosyn and urology was consulted. Patient is scheduled for an I&D with urology this afternoon. He also had a blood sugar of 451. Hemoglobin A1c is 11.9. Patient reports that he has been taking his diabetes meds at home however he has not been following a very strict diet. Patient denies any chills or sweats. Denies any nausea or vomiting. Denies any bowel movement changes or urinary symptoms. On 05/02/2017 patient was seen and examined pain and discomfort in the scrotal area has improved significantly, otherwise he denies any complaints, patient continues to receive Zosyn, cultures are still pending without any growth so far. Patient is maintained on insulin for glucose control Objective - Vital Signs Vital signs: Vital Signs Temp 98.1 F 05/02/17 15:00 Pulse 77 05/02/17 15:00 Resp 18 05/02/17 15:00 BP 117/60 05/02/17 15:00 Pulse Ox 95 05/02/17 15:00 Intake & Output 05/01/17 05/02/17 05/02/17 18:59 06:59 18:59 Intake Total 350 1490 800 Output Total 20 Balance 330 1490 800 Weight 94 kg Intake: IV 350 900 800 Sodium Chloride 0.9% 1, 900 800 000 ml @ 100 mls/hr IV . Q10H LUIZA Rx#:[id number] Oral 590 Output: Estimated Blood Loss 20 Other: Voiding Method Toilet Toilet # Voids 1 2 4 - Exam In general patient is alert and oriented 3 in no apparent distress HEENT head normocephalic and atraumatic Neck is supple no JVD no goiter no lymphadenopathy Chest exam reveals a scattered crackles in both bases no wheezing Cardiac exam reveals regular heart sounds S1 and S2 no gallops no murmurs Abdomen is soft nontender no organomegaly with normal bowel sounds Extremity exam reveals no edema no cyanosis or clubbing : Scrotum is red and swollen. Top of left testicle wound present with scabbing, tender with palpation. - Labs CBC & Chem 7: 05/02/17 07:22 05/02/17 07:22 Labs: Abnormal Lab Results - Last 24 Hours (Table) 05/01/17 05/01/17 05/02/17 Range/Units 18:05 19:41 07:21 RBC (4.30-5.90) m/uL Hgb (13.0-17.5) gm/dL Hct (39.0-53.0) % Carbon Dioxide (22-30) mmol/L Glucose (74-99) mg/dL POC Glucose (mg/dL) 105 H 150 H 168 H (75-99) mg/dL Calcium (8.4-10.2) mg/dL Alkaline Phosphatase (38-126) U/L Total Protein (6.3-8.2) g/dL Albumin (3.5-5.0) g/dL 05/02/17 05/02/17 05/02/17 Range/Units 07:22 07:22 12:01 RBC 3.84 L (4.30-5.90) m/uL Hgb 11.9 L (13.0-17.5) gm/dL Hct 35.8 L (39.0-53.0) % Carbon Dioxide 20 L (22-30) mmol/L Glucose 163 H (74-99) mg/dL POC Glucose (mg/dL) 198 H (75-99) mg/dL Calcium 8.2 L (8.4-10.2) mg/dL Alkaline Phosphatase 144 H (38-126) U/L Total Protein 5.9 L (6.3-8.2) g/dL Albumin 2.9 L (3.5-5.0) g/dL Microbiology - Last 24 Hours (Table) 04/30/17 13:20 Blood Culture - Preliminary Blood No Growth after 48 hours 05/01/17 17:30 Gram Stain - Preliminary Scrotum Wound Culture - Preliminary 05/01/17 17:30 Anaerobic Culture - Preliminary Scrotum Assessment and Plan Plan: 1. Scrotal cellulitis and left testicular abscess: Continue IV Zosyn. Urology consulted and plan for I&D this afternoon. Failed outpatient antibiotics. 2. Elevated lactic acid on admission now improved secondary to the left testicular abscess and cellulitis 3. Diabetes mellitus type 2 with uncontrolled blood sugars. Blood sugar 451 on admission with a hemoglobin A1c of 11.9. Blood sugars now 167. Continue sliding scale coverage. Continue metformin. Acetone negative 4. Hyperlipidemia
[2017-05-02 17:06] LABS: Glucose,Whole Blood 181 mg/dL (75-99)
[2017-05-02 20:12] LABS: Glucose,Whole Blood 226 mg/dL (75-99)
[2017-05-03] MEDS: HYDROcodone/APAP 5-325MG 1 EACH TAB PO PRN ×3 (04:42→19:50)
[2017-05-03] MEDS: SODIUM CHLORIDE 0.9% 1,000 ML IV SCH ×4 (04:43→23:32)
[2017-05-03 07:28] LABS: Glucose,Whole Blood 185 mg/dL (75-99)
[2017-05-03 07:54] LABS: Basophils % (A) 1 %; CH 32.1; CHCM 34.8; Eosinophils # (A) 0.3 k/uL (0-0.7); Eosinophils % (A) 4 %; HCT 35.5 % (39.0-53.0); HDW 3.07; HGB 11.9 gm/dL (13.0-17.5); Luc # (Auto) 0.19; Luc % (Auto) 3; Lymphocytes # (A) 1.3 k/uL (1.0-4.8); Lymphocytes % (A) 19 %; MCH 31.1 pg (25.0-35.0); MCHC 33.5 g/dL (31.0-37.0); MCV 92.9 fL (80.0-100.0); Mean Platelet Volume 8.3; Monocytes # (A) 0.4 k/uL (0-1.0); Monocytes % (A) 5 %; Neutrophils # (A) 4.8 k/uL (1.3-7.7); Neutrophils % (A) 69 %; RBC 3.82 m/uL (4.30-5.90); WBC (Perox) 6.91
[2017-05-03 08:15] LABS: ALT 40 U/L (21-72); AST 20 U/L (17-59); Alkaline Phosphatase 142 U/L (38-126); Anion Gap 8 mmol/L; Blood Urea Nitrogen 9 mg/dL (9-20); Carbon Dioxide 23 mmol/L (22-30); Chloride 109 mmol/L (98-107); Glucose 177 mg/dL (74-99); Non-African American GFR(MDRD) >60 (>60 ml/min/1.73 sqM); Potassium 4.5 mmol/L (3.5-5.1); Sodium 140 mmol/L (137-145); Total Bilirubin 0.3 mg/dL (0.2-1.3); Total Protein 5.8 g/dL (6.3-8.2)
[2017-05-03] MEDS: glipiZIDE 10 MG TAB PO SCH (08:28)
[2017-05-03] MEDS: CITALOPRAM HYDROBROMIDE 20 MG TAB PO SCH (08:30)
[2017-05-03] MEDS: PIPERACILLIN-TAZOBACTAM 3.375 GM in DEXTROSE/WATER 1 50ML.BAG IVPB SCH ×3 (08:31→23:29)
[2017-05-03] MEDS: FAMOTIDINE 20 MG TAB PO SCH ×2 (08:32→19:58)
[2017-05-03] MEDS: metFORMIN 500 MG TAB PO SCH ×2 (08:33→19:58)
[2017-05-03] MEDS: PIOGLITAZONE 30 MG TAB PO SCH (08:33)
[2017-05-03] MEDS: valACYclovir HCL 1,000 MG TABLET PO SCH ×3 (08:35→22:20)
[2017-05-03] MEDS: INSULIN LISPRO (humaLOG) 300 UNIT/3 ML VIAL SQ SCH ×4 (08:35→20:00)
--- NOTE | 2017-05-03 12:26 | P.PN ---
Subjective Principal diagnosis: POD #2, s/p I & D of scrotal abscess Patient states he continues to feel much better. Objective - Vital Signs Vital signs: Vital Signs Temp 98.4 F 05/03/17 07:24 Pulse 65 05/03/17 07:24 Resp 18 05/03/17 07:24 BP 125/69 05/03/17 07:24 Pulse Ox 95 05/02/17 23:00 Intake & Output 05/02/17 05/03/17 05/03/17 18:59 06:59 18:59 Intake Total 800 1200 Balance 800 1200 Weight 94 kg Intake: IV 800 1150 Sodium Chloride 0.9% 1, 800 1150 000 ml @ 100 mls/hr IV . Q10H LUIZA Rx#:[id number] Intake, IV Titration 50 Amount Piperacillin-Tazobactam 3 50 .375 gm In Dextrose/Water 1 50ml.bag @ 12.5 mls/hr IVPB Q8HR LUIZA Rx#: [id number] Other: Voiding Method Toilet # Voids 4 2 # Bowel Movements 1 - Constitutional General appearance: Present: cooperative, no acute distress - Genitourinary Genitourinary Comment(s): Normal phallus. Decreased scrotal swelling. The [place] drain is in place. There is no purulence noted. Between the 2 incisions there is a small area of eschar on the scrotal skin. - Psychiatric Psychiatric: Present: A&O x's 3, appropriate affect - Labs CBC & Chem 7: 05/03/17 07:09 05/03/17 07:09 Labs: Abnormal Lab Results - Last 24 Hours (Table) 05/02/17 05/02/17 05/03/17 Range/Units 17:03 20:09 07:09 RBC 3.82 L (4.30-5.90) m/uL Hgb 11.9 L (13.0-17.5) gm/dL Hct 35.5 L (39.0-53.0) % Chloride (98-107) mmol/L Glucose (74-99) mg/dL POC Glucose (mg/dL) 181 H 226 H (75-99) mg/dL Calcium (8.4-10.2) mg/dL Alkaline Phosphatase (38-126) U/L Total Protein (6.3-8.2) g/dL Albumin (3.5-5.0) g/dL 05/03/17 05/03/17 Range/Units 07:09 07:17 RBC (4.30-5.90) m/uL Hgb (13.0-17.5) gm/dL Hct (39.0-53.0) % Chloride 109 H (98-107) mmol/L Glucose 177 H (74-99) mg/dL POC Glucose (mg/dL) 185 H (75-99) mg/dL Calcium 8.0 L (8.4-10.2) mg/dL Alkaline Phosphatase 142 H (38-126) U/L Total Protein 5.8 L (6.3-8.2) g/dL Albumin 2.9 L (3.5-5.0) g/dL Microbiology - Last 24 Hours (Table) 04/30/17 13:20 Blood Culture - Preliminary Blood No Growth after 48 hours Assessment and Plan (1) Scrotal abscess Status: Acute Plan: The patient's condition continues to improve. Wound cultures are pending. I am hopeful that the patient may be discharged home on oral antibiotics, such as Keflex. If he remains hospitalized, I will likely remove the drain in 1-2 days. If he is discharged home, he can follow up with me in the office for drain removal. The eschar on the scrotal skin will continue to be assessed, but I do not anticipate the need for debridement
--- NOTE | 2017-05-03 13:00 | P.PN ---
Subjective This is a 47-year-old male, patient of Dr. Baker. He has a known past medical history of diabetes mellitus and hyperlipidemia. Patient presents to the emergency room with increased scrotal swelling and pain and tenderness in the left testicle. Patient has a wound with some drainage coming out of it on the left testicle. Patient reports that he thinks it was an ingrown hair. And also that he had tried to pop it at one point. The symptoms started last Monday. He's been on Augmentin and Bactrim with no improvement in symptoms. He did feel some slight fever at home. But since his symptoms were not improving with antibiotics he presented to the emergency room for further evaluation and treatment. Patient was started on IV Zosyn and urology was consulted. Patient is scheduled for an I&D with urology this afternoon. He also had a blood sugar of 451. Hemoglobin A1c is 11.9. Patient reports that he has been taking his diabetes meds at home however he has not been following a very strict diet. Patient denies any chills or sweats. Denies any nausea or vomiting. Denies any bowel movement changes or urinary symptoms. On 05/02/2017 patient was seen and examined pain and discomfort in the scrotal area has improved significantly, otherwise he denies any complaints, patient continues to receive Zosyn, cultures are still pending without any growth so far. Patient is maintained on insulin for glucose control Objective - Vital Signs Vital signs: Vital Signs Temp 98.4 F 05/03/17 07:24 Pulse 65 05/03/17 07:24 Resp 18 05/03/17 07:24 BP 125/69 05/03/17 07:24 Pulse Ox 95 05/02/17 23:00 Intake & Output 05/02/17 05/03/17 05/03/17 18:59 06:59 18:59 Intake Total 800 1200 Balance 800 1200 Weight 94 kg Intake: IV 800 1150 Sodium Chloride 0.9% 1, 800 1150 000 ml @ 100 mls/hr IV . Q10H LUIZA Rx#:[id number] Intake, IV Titration 50 Amount Piperacillin-Tazobactam 3 50 .375 gm In Dextrose/Water 1 50ml.bag @ 12.5 mls/hr IVPB Q8HR LUIZA Rx#: [id number] Other: Voiding Method Toilet # Voids 4 2 # Bowel Movements 1 - Exam In general patient is alert and oriented 3 in no apparent distress HEENT head normocephalic and atraumatic Neck is supple no JVD no goiter no lymphadenopathy Chest exam reveals a scattered crackles in both bases no wheezing Cardiac exam reveals regular heart sounds S1 and S2 no gallops no murmurs Abdomen is soft nontender no organomegaly with normal bowel sounds Extremity exam reveals no edema no cyanosis or clubbing : Scrotum is red and swollen. Top of left testicle wound present with scabbing, tender with palpation. - Labs CBC & Chem 7: 05/03/17 07:09 05/03/17 07:09 Labs: Abnormal Lab Results - Last 24 Hours (Table) 05/02/17 05/02/17 05/03/17 Range/Units 17:03 20:09 07:09 RBC 3.82 L (4.30-5.90) m/uL Hgb 11.9 L (13.0-17.5) gm/dL Hct 35.5 L (39.0-53.0) % Chloride (98-107) mmol/L Glucose (74-99) mg/dL POC Glucose (mg/dL) 181 H 226 H (75-99) mg/dL Calcium (8.4-10.2) mg/dL Alkaline Phosphatase (38-126) U/L Total Protein (6.3-8.2) g/dL Albumin (3.5-5.0) g/dL 05/03/17 05/03/17 Range/Units 07:09 07:17 RBC (4.30-5.90) m/uL Hgb (13.0-17.5) gm/dL Hct (39.0-53.0) % Chloride 109 H (98-107) mmol/L Glucose 177 H (74-99) mg/dL POC Glucose (mg/dL) 185 H (75-99) mg/dL Calcium 8.0 L (8.4-10.2) mg/dL Alkaline Phosphatase 142 H (38-126) U/L Total Protein 5.8 L (6.3-8.2) g/dL Albumin 2.9 L (3.5-5.0) g/dL Microbiology - Last 24 Hours (Table) 04/30/17 13:20 Blood Culture - Preliminary Blood No Growth after 48 hours Assessment and Plan Plan: 1. Scrotal cellulitis and left testicular abscess: Continue IV Zosyn. Urology consulted and plan for I&D this afternoon. Failed outpatient antibiotics. 2. Elevated lactic acid on admission now improved secondary to the left testicular abscess and cellulitis 3. Diabetes mellitus type 2 with uncontrolled blood sugars. Blood sugar 451 on admission with a hemoglobin A1c of 11.9. Blood sugars now 167. Continue sliding scale coverage. Continue metformin. Acetone negative 4. Hyperlipidemia At this time we are awiting culture results and awaiting removal of drainage catheter Possible discharge in the next 1 - 2 days
[2017-05-03] MEDS ORDERED: DIPHENOX-ATROP 2.5-0.025 MG 1 EACH TAB PO PRN (13:35)
[2017-05-03 14:07] LABS: Glucose,Whole Blood 228 mg/dL (75-99)
[2017-05-03 14:59] VITALS: RESP 16
[2017-05-03 17:08] LABS: Glucose,Whole Blood 149 mg/dL (75-99)
[2017-05-03 20:06] LABS: Glucose,Whole Blood 216 mg/dL (75-99)
[2017-05-04] MEDS: HYDROcodone/APAP 5-325MG 1 EACH TAB PO PRN (03:28)
[2017-05-04 07:13] LABS: Glucose,Whole Blood 196 mg/dL (75-99)
[2017-05-04 08:14] LABS: Basophils # (A) 0.1 k/uL (0-0.2); Basophils % (A) 1 %; CH 31.1; CHCM 34.5; Eosinophils # (A) 0.3 k/uL (0-0.7); Eosinophils % (A) 4 %; HCT 33.7 % (39.0-53.0); HDW 3.16; HGB 11.9 gm/dL (13.0-17.5); Luc # (Auto) 0.22; Luc % (Auto) 4; Lymphocytes # (A) 1.5 k/uL (1.0-4.8); Lymphocytes % (A) 24 %; MCH 32.1 pg (25.0-35.0); MCHC 35.3 g/dL (31.0-37.0); MCV 90.7 fL (80.0-100.0); Mean Platelet Volume 7.7; Monocytes # (A) 0.5 k/uL (0-1.0); Monocytes % (A) 7 %; Neutrophils # (A) 3.8 k/uL (1.3-7.7); Neutrophils % (A) 60 %; RBC 3.72 m/uL (4.30-5.90); RDW 13.6 % (11.5-15.5); WBC 6.3 k/uL (3.8-10.6)
[2017-05-04] MEDS: valACYclovir HCL 1,000 MG TABLET PO SCH (08:22)
[2017-05-04] MEDS: FAMOTIDINE 20 MG TAB PO SCH (08:22)
[2017-05-04] MEDS: metFORMIN 500 MG TAB PO SCH (08:22)
[2017-05-04] MEDS: glipiZIDE 10 MG TAB PO SCH (08:22)
[2017-05-04] MEDS: INSULIN LISPRO (humaLOG) 300 UNIT/3 ML VIAL SQ SCH ×2 (08:22→13:11)
[2017-05-04] MEDS: CITALOPRAM HYDROBROMIDE 20 MG TAB PO SCH (08:22)
[2017-05-04] MEDS: PIOGLITAZONE 30 MG TAB PO SCH (08:22)
[2017-05-04] MEDS: PIPERACILLIN-TAZOBACTAM 3.375 GM in DEXTROSE/WATER 1 50ML.BAG IVPB SCH (08:27)
[2017-05-04 08:31] LABS: ALT 43 U/L (21-72); AST 27 U/L (17-59); Alkaline Phosphatase 149 U/L (38-126); Anion Gap 6 mmol/L; Blood Urea Nitrogen 9 mg/dL (9-20); Calcium 8.1 mg/dL (8.4-10.2); Carbon Dioxide 25 mmol/L (22-30); Chloride 108 mmol/L (98-107); Glucose 175 mg/dL (74-99); Non-African American GFR(MDRD) >60 (>60 ml/min/1.73 sqM); Potassium 4.6 mmol/L (3.5-5.1); Sodium 139 mmol/L (137-145); Total Bilirubin 0.4 mg/dL (0.2-1.3); Total Protein 5.6 g/dL (6.3-8.2)
[2017-05-04 08:42] VITALS: BP 130/77; PULSE 65; TEMP 97.8
[2017-05-04 11:33] LABS: Glucose,Whole Blood 227 mg/dL (75-99)
--- NOTE | 2017-05-04 12:37 | P.DS ---
Providers Date of admission: 04/30/17 16:10 Expected date of discharge: 05/04/17 Attending physician: Michael Randolph Consults: 04/30/17 15:29 Consult Physician Routine Consulting Provider: Rd Ortega Consult Reason/Comments: scrotal cellulitis Do you want consulting provider notified?: Yes Primary care physician: Summer De La Cruz [place] [facility] Course: Discharge diagnosis 1. Scrotal cellulitis and left testicular abscess: Failed outpatient antibiotics. Status post I&D with urology. Urine culture growing only beta- hemolytic strep group C. Patient had been on IV Zosyn. We will discharge him with Keflex 500 mg 3 times a day for 10 days. He will follow-up with urology outpatient for drainage tube removal. 2. Elevated lactic acid on admission now improved secondary to the left testicular abscess and cellulitis 3. Diabetes mellitus type 2 with uncontrolled blood sugars. Blood sugar 451 on admission with a hemoglobin A1c of 11.9. Blood sugars now 167. Continue sliding scale coverage. Continue metformin. Acetone negative. Patient will be restarted on his home blood sugar medications. Some of them are nonformulary here. This will help better control his blood sugars. He has been educated on following a diabetic diet. 4. Hyperlipidemia Hospital course this is a 47-year-old male, patient of Dr. De La Cruz's. He has a known past medical history of diabetes mellitus and hyperlipidemia. Patient presents to the emergency room with increased scrotal swelling and pain and tenderness in the left testicle. Patient has a wound with some drainage coming out of it on the left testicle. Patient reports that he thinks it was an ingrown hair. And also that he had tried to pop it at one point. The symptoms started last Monday. He's been on Augmentin and Bactrim with no improvement in symptoms. He did feel some slight fever at home. But since his symptoms were not improving with antibiotics he presented to the emergency room for further evaluation and treatment. Patient was started on IV Zosyn and urology was consulted. Patient is scheduled for an I&D with urology this afternoon. He also had a blood sugar of 451. Hemoglobin A1c is 11.9. Patient reports that he has been taking his diabetes meds at home however he has not been following a very strict diet. Patient was seen evaluated by urology. He underwent incision and drainage of the testicular abscess. He's been treated with IV antibiotics in the form Zosyn. His symptoms have improved greatly. He has a drainage tube still in place. He'll follow with urology tomorrow to possibly have that removed. He' ll continue Keflex for 10 days. Patient is medically stable for discharge and his been cleared by urology. Please refer to chart for any further details I performed an examination of the patient and discussed their management with the physician Base Remover. I have reviewed the Physician Base Remover's notes and agree with the documented findings and plan of care Patient Condition at Discharge: Stable Plan - Discharge Summary New Discharge Prescriptions: New Cephalexin [Keflex] 500 mg PO Q8HR #30 cap HYDROcodone/APAP 5-325MG [[place] 5-325] 1 each PO Q4HR PRN #40 tab PRN Reason: Moderate Pain Continue Pioglitazone [Actos] 30 mg PO DAILY Citalopram Hydrobromide [CeleXA] 40 mg PO DAILY Ranitidine HCl [Zantac] 150 mg PO BID Liraglutide [Victoza 2-Jerry] 1.8 mg SQ DAILY Dapagliflozin Propanediol [Farxiga] 10 mg PO DAILY valACYclovir HCL [Valtrex] 1,000 mg PO TID metFORMIN HCL 1,000 mg PO BID glipiZIDE [Glucotrol] 10 mg PO AC-BRKFST Albuterol Inhaler [Ventolin Hfa Inhaler] 2 puff INHALATION RT-Q4H PRN PRN Reason: Wheezing Discontinued Sulfamethox-Tmp 800-160Mg [Bactrim DS 800-160 mg] 1 tab PO Q12H Discharge Medication List Citalopram Hydrobromide [CeleXA] 40 mg PO DAILY 12/12/15 [History] Pioglitazone [Actos] 30 mg PO DAILY 12/12/15 [History] Albuterol Inhaler [Ventolin Hfa Inhaler] 2 puff INHALATION RT-Q4H PRN 04/30/17 [ History] Dapagliflozin Propanediol [Farxiga] 10 mg PO DAILY 04/30/17 [History] Liraglutide [Victoza 2-Jerry] 1.8 mg SQ DAILY 04/30/17 [History] Ranitidine HCl [Zantac] 150 mg PO BID 04/30/17 [History] glipiZIDE [Glucotrol] 10 mg PO AC-BRKFST 04/30/17 [History] metFORMIN HCL 1,000 mg PO BID 04/30/17 [History] valACYclovir HCL [Valtrex] 1,000 mg PO TID 04/30/17 [History] Cephalexin [Keflex] 500 mg PO Q8HR #30 cap 05/04/17 [Rx] HYDROcodone/APAP 5-325MG [[place] 5-325] 1 each PO Q4HR PRN #40 tab 05/04/17 [Rx] Follow up Appointment(s)/Referral(s): Summer De La Cruz DO [Primary Care Provider] - [address] Ortega MD [STAFF PHYSICIAN] - 05/05/17 Activity/Diet/Wound Care/Special Instructions: Diet: diabetic Activity: as tolerated Discharge Disposition: HOME SELF-CARE
[2017-05-04] MEDS: SODIUM CHLORIDE 0.9% 1,000 ML IV SCH (13:04)
--- NOTE | 2017-05-04 16:51 | P.PN ---
Progress Note - Text Mr. Squires continues to feel better. He is afebrile and reports diminished scrotal pain. On examination, the scrotal edema is mild and continues to decrease. There is minimal drainage. The skin and eschar is unchanged. There is no cellulitis. The drain was removed. He is being discharged home on Keflex , and will follow up with me in 1 week. He was advised to notify me if his condition worsens in any way.
== END 2017-05-04 14:25 | disposition home or self-care (01) | DRG 728 ==
LOC: EC 12:53 → 5MS5E 16:10
PROVIDERS: ADMIT Internal Medicine; ATTEND Internal Medicine
PROC: 0H9AXZZ Drainage of Inguinal Skin, External Approach (ICD-10-PCS; principal; 2017-05-01 22:00)
DX: N45.4 Abscess of epididymis or testis (principal); E11.65 Type 2 diabetes mellitus with hyperglycemia; N49.2 Inflammatory disorders of scrotum; E78.5 Hyperlipidemia, unspecified; F41.9 Anxiety disorder, unspecified; Z79.84 Long term (current) use of oral hypoglycemic drugs; Z79.899 Other long term (current) drug therapy; Z87.891 Personal history of nicotine dependence
CPT/HCPCS: 36415; 76870; 80053; 81003; 82009; 83036; 83605; 85025; 87040; 87070; 87075; 87205; 93975; 94640; 94760; 96361; 96365; 96366; 96375; 99284

== ENCOUNTER 2017-06-01 07:36 | Emergency (ER) | payer BC ==
[2017-06-01 07:45] VITALS: BP 120/74; PULSE 107; RESP 17; TEMP 97.1
--- NOTE | 2017-06-01 08:21 | ED ---
General Adult HPI - General Chief complaint: Skin/Abscess/Foreign Body Stated complaint: cellulitis on back Time Seen by Provider: 06/01/17 08:11 Source: patient, RN notes reviewed Mode of arrival: ambulatory Limitations: no limitations - History of Present Illness Initial comments: 47-year-old male presents to the emergency Department chief complaint of area of redness to his upper back. Patient states now some purulent drainage from the area tenderness without that he should be evaluated. Patient denies any nausea vomiting fever chills with this. Patient states that he has not had before. Patient denies history of MRSA. Patient states he has had some purulent drainage. Patient states that there is pain to touch but if he sits still no pain. Patient was concerned due to his continued symptoms he thought that he should be evaluated. Patient denies any recent fever, chills, shortness of breath, chest pain, back pain, abdominal pain, nausea vomiting, numbness or tingling, dysuria or hematuria, constipation or diarrhea, headaches or visual changes, or any other current symptoms. - Related Data Home Medications Medication Instructions Recorded Confirmed Citalopram Hydrobromide [CeleXA] 40 mg PO DAILY 12/12/15 06/01/17 Pioglitazone [Actos] 30 mg PO DAILY 12/12/15 06/01/17 Albuterol Inhaler [Ventolin Hfa 2 puff INHALATION RT-Q4H PRN 04/30/17 06/01/17 Inhaler] Dapagliflozin Propanediol [Farxiga] 10 mg PO DAILY 04/30/17 06/01/17 Liraglutide [Victoza 2-Jerry] 1.8 mg SQ DAILY 04/30/17 06/01/17 glipiZIDE [Glucotrol] 10 mg PO AC-BRKFST 04/30/17 06/01/17 metFORMIN HCL 1,000 mg PO BID 04/30/17 06/01/17 Ibuprofen [Motrin] 800 mg PO Q6H PRN 06/01/17 06/01/17 Previous Rx's Medication Instructions Recorded Sulfamethox-Tmp 800-160Mg [Bactrim 2 each PO Q12HR #56 tab 06/01/17 DS 800-160 mg] Allergies Allergy/AdvReac Type Severity Reaction Status Date / Time No Known Allergies Allergy Verified 06/01/17 08:12 Review of Systems ROS Statement: Those systems with pertinent positive or pertinent negative responses have been documented in the HPI. ROS Other: All systems not noted in ROS Statement are negative. Past Medical History Past Medical History: Diabetes Mellitus, Hyperlipidemia History of Any Multi-Drug Resistant Organisms: None Reported Past Surgical History: Cholecystectomy Past Anesthesia/Blood Transfusion Reactions: No Reported Reaction Past Psychological History: Anxiety Smoking Status: Former smoker Past Alcohol Use History: None Reported, Occasional Past Drug Use History: None Reported - Past Family History Mother Family Medical History: Diabetes Mellitus General Exam Limitations: no limitations General appearance: alert, in no apparent distress Eye exam: Present: normal appearance, PERRL, EOMI. Absent: scleral icterus, conjunctival injection, periorbital swelling ENT exam: Present: normal exam, mucous membranes moist Neck exam: Present: normal inspection. Absent: tenderness, meningismus, lymphadenopathy Respiratory exam: Present: normal lung sounds bilaterally. Absent: respiratory distress, wheezes, rales, rhonchi, stridor Cardiovascular Exam: Present: regular rate, normal rhythm, normal heart sounds. Absent: systolic murmur, diastolic murmur, rubs, gallop, clicks Neurological exam: Present: alert, oriented X3 Psychiatric exam: Present: normal affect, normal mood Skin exam: Present: warm, dry, other (Patient appears to have an erythematous area surrounding abscess that does appear to be draining. It is indurated at this time with no fluctuance very hard to touch.) Course Vital Signs 06/01/17 07:41 Temperature 97.1 F L Pulse Rate 107 H Respiratory 17 Rate Blood Pressure 120/74 O2 Sat by Pulse 99 Oximetry Medical Decision Making - Medical Decision Making 47 shows male presents for draining abscess that is tender to touch. This time we discussed warm compresses to the area we discussed we will place him on antibiotics. We discussed return parameters and follow-up all patient's questions. He stated that he understood he is given plan. This time on questions have been answered. This time the patient will be discharged home. Disposition Clinical Impression: Abscess or cellulitis of back, Cellulitis and abscess of right leg Disposition: HOME SELF-CARE Condition: Stable Instructions: Abscess (ED), Cellulitis (ED) Additional Instructions: Please use medication as discussed. Please follow up with family doctor if symptoms have not improved over the next two days. Please return to the emergency room if your symptoms increase or worsen or for any other concerns. Prescriptions: Sulfamethox-Tmp 800-160Mg [Bactrim DS 800-160 mg] 2 each PO Q12HR #56 tab Referrals: Summer De La Cruz DO [Primary Care Provider] - 1-2 days Time of Disposition: 08:20
== END 2017-06-01 08:26 | disposition home or self-care (01) ==
LOC: EC 07:36
DX: L03.115 Cellulitis of right lower limb (principal); L02.415 Cutaneous abscess of right lower limb; M54.9 Dorsalgia, unspecified; R23.8 Other skin changes; E11.9 Type 2 diabetes mellitus without complications; Z87.891 Personal history of nicotine dependence; Z79.84 Long term (current) use of oral hypoglycemic drugs; Z79.899 Other long term (current) drug therapy
CPT/HCPCS: 99283

== ENCOUNTER 2017-12-19 06:16 | Observation (INO) | payer BC ==
[2017-12-19] MEDS ORDERED: ASPIRIN 81 MG PO STA (06:31)
[2017-12-19] MEDS ORDERED: NITROGLYCERIN OINT 1 INCH/GM PACKET TOPICAL STA (06:31)
--- NOTE | 2017-12-19 06:36 | ED ---
General Adult HPI - General Source: patient, RN notes reviewed Mode of arrival: ambulatory Limitations: no limitations <Arun Prabhakar - Last Filed: 12/19/17 06:33> <Torres Hutchins - Last Filed: 12/19/17 08:36> - General Chief complaint: Chest Pain Stated complaint: chest pain,arm pain Time Seen by Provider: 12/19/17 06:20 - History of Present Illness Initial comments: This is a 47-year-old male who has a past medical history significant for smoking and diabetes. Patient states for the last week he has had a cough but nonproductive. Patient states this morning he got up at 5:30 and had some chest pain in the center of his chest and it radiates to his left arm. Patient states cough and does seem to make it worse however. Patient denies any diaphoresis. Patient denies any nausea. Patient did not exert himself this morning so he does not know if exertion makes it worse. Patient denies any abdominal pain. Patient denies any recent fever but states he has had some chills this past week. Patient denies any headache patient denies numbness weakness. Patient denies lightheadedness dizziness or near syncopal episode. ( Arun Prabhakar) - Related Data Home Medications Medication Instructions Recorded Confirmed metFORMIN HCL 1,000 mg PO BID 04/30/17 12/19/17 Ibuprofen [Motrin] 800 mg PO TID PRN 06/01/17 12/19/17 Gabapentin [Neurontin] 1,200 mg PO HS 12/19/17 12/19/17 Insulin Glargine,Hum.rec.anlog 40 units SQ DAILY 12/19/17 12/19/17 [Toujeo Solostar] Insulin Lispro [humaLOG Kwikpen] See Protocol SQ AC-TID 12/19/17 12/19/17 Zolpidem [Ambien] 10 mg PO HS 12/19/17 12/19/17 glipiZIDE XL [Glucotrol Xl] 10 mg PO DAILY 12/19/17 12/19/17 Allergies Allergy/AdvReac Type Severity Reaction Status Date / Time No Known Allergies Allergy Verified 12/19/17 07:46 Review of Systems ROS Other: All systems not noted in ROS Statement are negative. <Arun Prabhakar - Last Filed: 12/19/17 06:33> ROS Other: All systems not noted in ROS Statement are negative. <Torres Hutchins Sherri - Last Filed: 12/19/17 08:36> ROS Statement: Those systems with pertinent positive or pertinent negative responses have been documented in the HPI. Past Medical History Past Medical History: Diabetes Mellitus, Hyperlipidemia History of Any Multi-Drug Resistant Organisms: None Reported Past Surgical History: Cholecystectomy Past Anesthesia/Blood Transfusion Reactions: No Reported Reaction Past Psychological History: Anxiety Smoking Status: Former smoker Past Alcohol Use History: None Reported, Occasional Past Drug Use History: None Reported - Past Family History Mother Family Medical History: Diabetes Mellitus <Arun Prabhakar - Last Filed: 12/19/17 06:33> General Exam Limitations: no limitations <Arun Prabhakar - Last Filed: 12/19/17 06:33> <SoledadivettTorres Sherri - Last Filed: 12/19/17 08:36> - General Exam Comments Initial Comments: GENERAL: Patient is well-developed and well-nourished. Patient is nontoxic and well- hydrated and is in mild distress. ENT: Neck is soft and supple. No significant lymphadenopathy is noted. Oropharynx is clear. Moist mucous membranes. Neck has full range of motion without eliciting any pain. EYES: The sclera were anicteric and conjunctiva were pink and moist. Extraocular movements were intact and pupils were equal round and reactive to light. Eyelids were unremarkable. PULMONARY: Unlabored respirations. Good breath sounds bilaterally. No audible rales rhonchi or wheezing was noted. CARDIOVASCULAR: There is a regular rate and rhythm without any murmurs gallops or rubs. ABDOMEN: Soft and nontender with normal bowel sounds. No palpable organomegaly was noted. There is no palpable pulsatile mass. SKIN: Skin is clear with no lesions or rashes and otherwise unremarkable. NEUROLOGIC: Patient is alert and oriented x3. Cranial nerves II through XII are grossly intact. Motor and sensory are also intact. Normal speech, volume and content. Symmetrical smile. MUSCULOSKELETAL: Normal extremities with adequate strength and full range of motion. No lower extremity swelling or edema. No calf tenderness. LYMPHATICS: No significant lymphadenopathy is noted PSYCHIATRIC: Normal psychiatric evaluation. (Arun Prabhakar) Vital Signs 12/19/17 12/19/17 12/19/17 06:18 06:32 07:47 Temperature 98.6 F 98 F Pulse Rate 111 H 96 Pulse Rate [ 104 H Sales Support Rep ] Respiratory 20 20 Rate Blood Pressure 144/77 132/68 O2 Sat by Pulse 99 98 Oximetry Medical Decision Making <Arun Prabhakar - Last Filed: 12/19/17 06:33> - Lab Data Result diagrams: 12/19/17 06:24 12/19/17 06:24 <Torres Hutchins - Last Filed: 12/19/17 08:36> - Medical Decision Making EKG shows sinus tachycardia at 109 bpm NH interval is 136 QRS is 104 QT interval 348 QTC is 468. Patient's EKG shows no ST segment elevation or depression or T wave abnormalities are noted. Dr. Hutchins will taking over the care of this patient at 7 AM (Arun Prabhakar ) 47 yo male presenting with 1 week of cough, and chest pain which began this morning. Patient is a diabetic, he is a current smoker. He was evaluated by Dr. Prabhakar, given aspirin and nitroglycerin. Nitroglycerin did somewhat improve his pain. Pain was described as a pressure, radiating to his left arm. Although the patient has had cough he does have significant risk factors. He will be admitted for serial cardiac enzymes as his pain began just shortly before presenting to the emergency department. Cardiology will be based on consult. Laboratory studies reveal glucose 400, he is given some IV fluids and insulin. Chest x-ray shows no focal pneumonia, there is reactive airway consistent with viral infection. (Torres Hutchins) - Lab Data Lab Results 12/19/17 12/19/17 12/19/17 Range/Units 06:24 06:24 06:24 WBC 8.2 (3.8-10.6) k/uL RBC 5.61 (4.30-5.90) m/uL Hgb 17.4 (13.0-17.5) gm/dL Hct 46.5 (39.0-53.0) % MCV 82.8 (80.0-100.0) fL MCH 31.0 (25.0-35.0) pg MCHC 37.4 H (31.0-37.0) g/dL RDW 12.1 (11.5-15.5) % Plt Count 207 (150-450) k/uL Neutrophils % (Manual) 68 % Lymphocytes % (Manual) 22 % Monocytes % (Manual) 7 % Eosinophils % (Manual) 3 % Neutrophils # (Manual) 5.58 (1.3-7.7) k/uL Lymphocytes # (Manual) 1.80 (1.0-4.8) k/uL Monocytes # (Manual) 0.57 (0-1.0) k/uL Eosinophils # (Manual) 0.25 (0-0.7) k/uL Nucleated RBCs 0 (0-0) /100 WBC Manual Slide Review Performed Hyperchromasia Moderate PT (9.0-12.0) sec INR (<1.2) APTT (22.0-30.0) sec Sodium 136 L (137-145) mmol/L Potassium 4.4 (3.5-5.1) mmol/L Chloride 96 L (98-107) mmol/L Carbon Dioxide 27 (22-30) mmol/L Anion Gap 13 mmol/L BUN 29 H (9-20) mg/dL Creatinine 0.91 (0.66-1.25) mg/dL Est GFR (CKD-EPI)AfAm >90 (>60 ml/min/1.73 sqM) Est GFR (CKD-EPI)NonAf >90 (>60 ml/min/1.73 sqM) Glucose 401 H (74-99) mg/dL Calcium 9.9 (8.4-10.2) mg/dL Magnesium 1.8 (1.6-2.3) mg/dL Total Bilirubin 0.5 (0.2-1.3) mg/dL AST 20 (17-59) U/L ALT 37 (21-72) U/L Alkaline Phosphatase 92 (38-126) U/L Total Creatine Kinase 136 (55-170) U/L CK-MB (CK-2) 1.9 (0.0-2.4) ng/mL CK-MB (CK-2) Rel Index 1.4 Troponin I <0.012 (0.000-0.034) ng/mL Total Protein 7.1 (6.3-8.2) g/dL Albumin 3.9 (3.5-5.0) g/dL 12/19/17 Range/Units 06:24 WBC (3.8-10.6) k/uL RBC (4.30-5.90) m/uL Hgb (13.0-17.5) gm/dL Hct (39.0-53.0) % MCV (80.0-100.0) fL MCH (25.0-35.0) pg MCHC (31.0-37.0) g/dL RDW (11.5-15.5) % Plt Count (150-450) k/uL Neutrophils % (Manual) % Lymphocytes % (Manual) % Monocytes % (Manual) % Eosinophils % (Manual) % Neutrophils # (Manual) (1.3-7.7) k/uL Lymphocytes # (Manual) (1.0-4.8) k/uL Monocytes # (Manual) (0-1.0) k/uL Eosinophils # (Manual) (0-0.7) k/uL Nucleated RBCs (0-0) /100 WBC Manual Slide Review Hyperchromasia PT 9.8 (9.0-12.0) sec INR 1.0 (<1.2) APTT 21.7 L (22.0-30.0) sec Sodium (137-145) mmol/L Potassium (3.5-5.1) mmol/L Chloride (98-107) mmol/L Carbon Dioxide (22-30) mmol/L Anion Gap mmol/L BUN (9-20) mg/dL Creatinine (0.66-1.25) mg/dL Est GFR (CKD-EPI)AfAm (>60 ml/min/1.73 sqM) Est GFR (CKD-EPI)NonAf (>60 ml/min/1.73 sqM) Glucose (74-99) mg/dL Calcium (8.4-10.2) mg/dL Magnesium (1.6-2.3) mg/dL Total Bilirubin (0.2-1.3) mg/dL AST (17-59) U/L ALT (21-72) U/L Alkaline Phosphatase (38-126) U/L Total Creatine Kinase (55-170) U/L CK-MB (CK-2) (0.0-2.4) ng/mL CK-MB (CK-2) Rel Index Troponin I (0.000-0.034) ng/mL Total Protein (6.3-8.2) g/dL Albumin (3.5-5.0) g/dL Disposition <Arun Prabhakar - Last Filed: 12/19/17 06:33> Is patient prescribed a controlled substance at discharge?: No Decision to Admit Reason: Admit from EC Decision Date: 12/19/17 Decision Time: 08:36 <Torres Hutchins - Last Filed: 12/19/17 08:36> Clinical Impression: Chest pain Disposition: ADMITTED IP TO THIS [facility] Condition: Stable Referrals: Summer De La Cruz DO [Primary Care Provider] - 1-2 days
[2017-12-19 06:45] LABS: Hyperchromasia Moderate; MCV 82.8 fL (80.0-100.0)
[2017-12-19 06:57] LABS: Prothrombin Time 9.8 sec (9.0-12.0)
[2017-12-19 06:58] LABS: ALT 37 U/L (21-72); AST 20 U/L (17-59); Albumin 3.9 g/dL (3.5-5.0); Alkaline Phosphatase 92 U/L (38-126); Anion Gap 13 mmol/L; Blood Urea Nitrogen 29 mg/dL (9-20); Calcium 9.9 mg/dL (8.4-10.2); Carbon Dioxide 27 mmol/L (22-30); Chloride 96 mmol/L (98-107); Glucose 401 mg/dL (74-99); Magnesium 1.8 mg/dL (1.6-2.3); Potassium 4.4 mmol/L (3.5-5.1); Sodium 136 mmol/L (137-145); Total Bilirubin 0.5 mg/dL (0.2-1.3); Total Protein 7.1 g/dL (6.3-8.2)
[2017-12-19 06:59] LABS: Partial Thromboplastin Time 21.7 sec (22.0-30.0)
[2017-12-19 07:00] LABS: HCT 46.5 % (39.0-53.0); HGB 17.4 gm/dL (13.0-17.5); MCHC 37.4 g/dL (31.0-37.0); Mean Platelet Volume 9.1; Platelet Count 207 k/uL (150-450); RBC 5.61 m/uL (4.30-5.90); RDW 12.1 % (11.5-15.5); WBC 8.2 k/uL (3.8-10.6)
--- NOTE | 2017-12-19 07:22 | XR ---
EXAMINATION TYPE: XR chest 2V DATE OF EXAM: 12/19/2017 COMPARISON: Chest x-ray February 21, 2016. HISTORY: Chest pain per patient and order. Cough and congestion. TECHNIQUE: Frontal and lateral views of the chest are obtained. FINDINGS: There is Central perihilar peribronchial cuffing with slightly more focal retrocardiac opa city. No large pleural effusion or pneumothorax is seen bilaterally. Stable somewhat low lung volume s are redemonstrated. The cardiac silhouette size is within normal limits. The osseous structures a re intact. Cholecystectomy clips are noted. IMPRESSION: Central perihilar peribronchial cuffing could reflect reactive airway disease from a vir al bronchiolitis, slightly more prominent focal retrocardiac infiltrate noted.
[2017-12-19 07:29] LABS: Eosinophils # (M) 0.25 k/uL (0-0.7); Monocytes # (M) 0.57 k/uL (0-1.0); Neutrophils # (M) 5.58 k/uL (1.3-7.7); Neutrophils % (M) 68 %; Nucleated Red Blood Cells 0 /100 WBC (0-0); Total Cells Counted 100
[2017-12-19 07:41] LABS: Creatine Kinase MB 1.9 ng/mL (0.0-2.4); Troponin I <0.012 ng/mL (0.000-0.034)
[2017-12-19 07:42] LABS: Creatine Kinase 136 U/L (55-170)
[2017-12-19] MEDS ORDERED: SODIUM CHLORIDE 0.9% 500 ML IV ONE ×2 (08:17→09:25)
[2017-12-19] MEDS ORDERED: INSULIN REGULAR 100 UNIT/ML VIAL IV ONE ×2 (08:17→09:24)
[2017-12-19] MEDS ORDERED: IPRATROPIUM-ALBUTEROL 3 ML NEB INHALATION STA ×2 (08:22→10:10)
[2017-12-19] MEDS ORDERED: NALOXONE 0.4 MG/ML 1 ML VIAL IV PRN (08:31)
[2017-12-19 09:22] LABS: Glucose,Whole Blood 360 mg/dL (75-99)
[2017-12-19] MEDS ORDERED: DEXAMETHASONE SOD PHOSPHATE 10 MG/ML 1 ML VIAL IV STA (10:12)
[2017-12-19] MEDS ORDERED: IPRATROPIUM-ALBUTEROL 3 ML NEB INHALATION PRN (11:53)
[2017-12-19] MEDS ORDERED: IBUPROFEN 800 MG TAB PO PRN (12:29)
[2017-12-19] MEDS ORDERED: INSULIN ASPART 100 UNIT/ML 1 ML 10 ML VIAL SQ SCH (12:30)
[2017-12-19 12:55] LABS: Glucose,Whole Blood 475 mg/dL (75-99)
--- NOTE | 2017-12-19 13:48 | P.CRDCN ---
History of Present Illness Consult date: 12/19/17 History of present illness: Mr. Squires is a pleasant 47-year-old male past medical history significant for diabetes mellitus, hyperlipidemia, neuropathy and tobacco use. He denies history of coronary artery disease and has never seen a coach operator for any reason. We have been asked to see him in consultation for complaints of chest pain. he states he woke up this morning with pain in the mid-sternal/pre- cordial region. The pain is described as sharp heavy pain that radiates into the left shoulder. It has been intermittent since this morning and is made worse with movement, coughing and palpation. He denies shortness of breath, dizziness, palpitations, nausea, vomiting or diaphoresis. The feeling in his arm is described more as a numb/tingling. He states he has been coughing for over a month and recently quit smoking 2 weeks ago. EKG reveals sinus tachycardia with incomplete right bundle and left atrial enlargement. No acute ST or T-wave abnormalities. Chest xray reveals central perihilar peribronchial cuffing possibly reflective of reactive airway disease possibly bronchiolitis. Laboratory data reviewed, hemoglobin 17.4, platelets 207, sodium 136, potassium 4.4, creatinine 0.9, magnesium 1.8, cardiac enzymes negative 1. Review of Systems CONSTITUTIONAL: Denies fever. Denies chills. EYES: Denies blurred vision. Denies vision changes. Denies eye pain. EARS, NOSE, MOUTH & THROAT: Denies headache. Denies sore throat. Denies ear pain. CARDIOVASCULAR: Complains of reproducible chest pain. Denies shortness of breath. Denies orthopnea. Denies PND. Denies palpitations. RESPIRATORY: Complains of cough. GASTROINTESTINAL: Denies abdominal pain. Denies diarrhea. Denies constipation. Denies nausea. Denies vomiting. MUSCULOSKELETAL: Denies myalgias. INTEGUMENTARY: Denies pruitis. Denies rash. NEUROLOGIC: Denies numbness. Denies tingling. Denies weakness. PSYCHIATRIC: Denies anxiety. Denies depression. ENDOCRINE: Denies fatigue. Denies weight change. Denies polydipsia. Denies polyurina. GENITOURINARY: Denies burning, hematuria or urgency with micturation. HEMATOLOGIC: Denies history of anemia. Denies bleeding. Past Medical History Past Medical History: Diabetes Mellitus, Hyperlipidemia Additional Past Medical History / Comment(s): IDDM type II, neuropathy bilateral feet, past scrotal cellulitis/L testicular abscess with surgery and back abscess with surgery. History of Any Multi-Drug Resistant Organisms: None Reported Past Surgical History: Cholecystectomy Additional Past Surgical History / Comment(s): I&D scrotal abscess, I&D back abscess Past Anesthesia/Blood Transfusion Reactions: No Reported Reaction Smoking Status: Former smoker - Past Family History Mother Family Medical History: Diabetes Mellitus Father History Unknown: Yes Medications and Allergies Home Medications Medication Instructions Recorded Confirmed Type metFORMIN HCL 1,000 mg PO BID 04/30/17 12/19/17 History Ibuprofen [Motrin] 800 mg PO TID PRN 06/01/17 12/19/17 History Gabapentin [Neurontin] 1,200 mg PO HS 12/19/17 12/19/17 History Insulin Glargine,Hum.rec.anlog 40 units SQ DAILY 12/19/17 12/19/17 History [Toujeo Solostar] Insulin Lispro [humaLOG Kwikpen] See Protocol SQ AC-TID 12/19/17 12/19/17 History Zolpidem [Ambien] 10 mg PO HS 12/19/17 12/19/17 History glipiZIDE XL [Glucotrol Xl] 10 mg PO DAILY 12/19/17 12/19/17 History Allergies Allergy/AdvReac Type Severity Reaction Status Date / Time No Known Allergies Allergy Verified 12/19/17 07:46 Physical Exam Vitals: Vital Signs Temp Pulse Pulse Resp BP Pulse Ox 12/19/17 13:10 97.5 F L 97 18 130/68 98 12/19/17 11:07 97 18 128/69 98 12/19/17 10:31 106 H 12/19/17 10:18 102 H 12/19/17 09:56 100 18 133/87 96 12/19/17 08:42 96 12/19/17 08:32 95 12/19/17 07:47 98 F 96 20 132/68 98 12/19/17 06:32 104 H 12/19/17 06:18 98.6 F 111 H 20 144/77 99 Intake and Output 12/18/17 12/19/17 12/19/17 22:59 06:59 14:59 Other: Weight 90.718 kg Blood pressure 130/68 heart rate 97 afebrile maintaining oxygen saturation on room air GENERAL: This is a 47-year-old male in no apparent distress at the time of my examination. HEENT: Head is atraumatic, normocephalic. Pupils are equal, round. Sclerae anicteric. Conjunctivae are clear. Mucous membranes of the mouth are moist. Neck is supple. There is no jugular venous distention. No carotid bruit is heard. LUNGS: Clear to auscultation no wheezes, rales or rhonchi. No chest wall tenderness is noted on palpation or with deep breathing. HEART: Regular rate and rhythm without murmurs, rubs or gallops. S1 and S2 heard. ABDOMEN: Soft, nontender. Bowel sounds are heard. No organomegaly noted. EXTREMITIES: No evidence of peripheral edema and no calf tenderness noted. VASCULAR: Radial and dorsalis pedis pulses palpated, no evidence of clubbing. NEUROLOGIC: Patient is awake, alert and oriented x3. Results 12/19/17 06:24 12/19/17 06:24 Cardiac Enzymes 12/19/17 12/19/17 Range/Units 06:24 06:24 AST 20 (17-59) U/L CK-MB (CK-2) 1.9 (0.0-2.4) ng/mL Troponin I <0.012 (0.000-0.034) ng/mL Coagulation 12/19/17 Range/Units 06:24 PT 9.8 (9.0-12.0) sec APTT 21.7 L (22.0-30.0) sec CBC 12/19/17 Range/Units 06:24 WBC 8.2 (3.8-10.6) k/uL RBC 5.61 (4.30-5.90) m/uL Hgb 17.4 (13.0-17.5) gm/dL Hct 46.5 (39.0-53.0) % Plt Count 207 (150-450) k/uL Comprehensive Metabolic Panel 12/19/17 Range/Units 06:24 Sodium 136 L (137-145) mmol/L Potassium 4.4 (3.5-5.1) mmol/L Chloride 96 L (98-107) mmol/L Carbon Dioxide 27 (22-30) mmol/L BUN 29 H (9-20) mg/dL Creatinine 0.91 (0.66-1.25) mg/dL Glucose 401 H (74-99) mg/dL Calcium 9.9 (8.4-10.2) mg/dL AST 20 (17-59) U/L ALT 37 (21-72) U/L Alkaline Phosphatase 92 (38-126) U/L Total Protein 7.1 (6.3-8.2) g/dL Albumin 3.9 (3.5-5.0) g/dL Current Medications Generic Name Dose Route Start Last Admin Trade Name Freq PRN Reason Stop Dose Admin Albuterol/Ipratropium 3 ml 12/19/17 12:00 Duoneb 0.5 Mg-3 Mg/3 Ml Soln INHALATION RT-QID LUIZA Albuterol/Ipratropium 3 ml 12/19/17 11:53 Duoneb 0.5 Mg-3 Mg/3 Ml Soln INHALATION RT-Q2H PRN Shortness Of Breath Or Wheezing Famotidine 20 mg 12/20/17 09:00 Pepcid PO DAILY [facility] Gabapentin 1,200 mg 12/19/17 21:00 Neurontin PO HS [facility] Glipizide 5 mg 12/20/17 07:30 Glucotrol PO AC-BID [facility] Heparin Sodium (Porcine) 5,000 unit 12/19/17 21:00 Heparin SQ Q12HR [facility] Ibuprofen 800 mg 12/19/17 12:29 Motrin PO TID PRN Pain Insulin Aspart 0 unit 12/19/17 12:30 12/19/17 13:05 Novolog SQ 9 unit ACHS [facility] Administration Protocol Insulin Detemir 40 unit 12/19/17 21:00 Levemir SQ HS [facility] Naloxone HCl 0.2 mg 12/19/17 08:31 Narcan IV Q2M PRN Opioid Reversal Zolpidem Tartrate 10 mg 12/19/17 21:00 Ambien PO HS [facility] Intake and Output 12/18/17 12/19/17 12/19/17 22:59 06:59 14:59 Other: Weight 90.718 kg 12/19/17 06:24 12/19/17 06:24 Assessment and Plan Assessment: ASSESSMENT 1. Precordial musculoskeletal chest pain, atypical for an acute coronary event. 2. Persistent cough 1 month 3. Diabetes mellitus 4. Chronic tobacco abuse PLAN Continue to obtain serial cardiac enzymes and repeat EKG in the morning. Obtain 2-D echocardiogram and Doppler study to assess cardiac structure and function. Check lipid panel in the morning. Cardiac enzymes are negative we'll proceed with a stress test in the morning to rule out stress induced cardiac ischemia. Thank you kindly for this consultation. Further recommendations to follow. Nurse Practitioner note has been reviewed, I agree with a documented findings and plan of care. Patient was seen and examined.
[2017-12-19 14:01] LABS: Creatine Kinase 122 U/L (55-170)
[2017-12-19 14:13] LABS: Creatine Kinase MB 1.4 ng/mL (0.0-2.4)
--- NOTE | 2017-12-19 14:24 | P.HPIM ---
History of Present Illness H&P Date: 12/19/17 Chief Complaint: Chest pain This is a 47-year-old male, patient of [facility]. He has a known past medical history of diabetes mellitus type 2 and nicotine dependence. Patient presents to the emergency room with complaints of left-sided chest pain that radiated into the left arm with some left arm numbness. He admits to having some shortness of breath and nausea with this pain. Patient reports pain started around 5:30 in the this morning in the center of his chest. He was getting ready for work initially thought it was related to his coughing. However, on his drive into work he started to have some blurry vision and the chest pain. He turned his car around and came straight to the emergency room. First set up her troponins were negative. EKG had shown sinus tachycardia with a heart rate of 109 and incomplete right bundle branch block. Cardiology was consulted. Patient also has been reporting a mildly productive cough for the past week. About 3 weeks ago he had done a course of antibiotics from the urgent care for an upper respiratory infection. But the cough never did resolve. Chest x-ray shows central. He'll her peribronchial coughing could reflect reactive airway disease from a viral bronchiolitis, slightly more prominent focal retrocardiac infiltrate noted. Patient is been afebrile white count normal. He was given a dose of IV Solu-Medrol and bronchodilators in the emergency room. Patient was also noted to have a blood sugar in the 400s upon admission. He states that he was running late C did not take any of his diabetic meds this morning. The blurry vision has resolved. He does still some lingering chest discomfort that does worsen with his cough. He reports some improvement after being given nitro. And he also has some tenderness with palpation of the chest wall. Patient denies any fever or chills. Denies any vomiting. Denies any bowel movement changes or urinary symptoms. Denies any numbness or tingling in the legs. Patient does report a previous stress test about 5 years ago that was negative Review of Systems Please refer to HPI otherwise unremarkable Past Medical History Past Medical History: Diabetes Mellitus, Hyperlipidemia Additional Past Medical History / Comment(s): IDDM type II, neuropathy bilateral feet, past scrotal cellulitis/L testicular abscess with surgery and back abscess with surgery. History of Any Multi-Drug Resistant Organisms: None Reported Past Surgical History: Cholecystectomy Additional Past Surgical History / Comment(s): I&D scrotal abscess, I&D back abscess Past Anesthesia/Blood Transfusion Reactions: No Reported Reaction Smoking Status: Former smoker - Past Family History Mother Family Medical History: Diabetes Mellitus Father History Unknown: Yes Medications and Allergies Home Medications Medication Instructions Recorded Confirmed Type metFORMIN HCL 1,000 mg PO BID 04/30/17 12/19/17 History Ibuprofen [Motrin] 800 mg PO TID PRN 06/01/17 12/19/17 History Gabapentin [Neurontin] 1,200 mg PO HS 12/19/17 12/19/17 History Insulin Glargine,Hum.rec.anlog 40 units SQ DAILY 12/19/17 12/19/17 History [Toujeo Solostar] Insulin Lispro [humaLOG Kwikpen] See Protocol SQ AC-TID 12/19/17 12/19/17 History Zolpidem [Ambien] 10 mg PO HS 12/19/17 12/19/17 History glipiZIDE XL [Glucotrol Xl] 10 mg PO DAILY 12/19/17 12/19/17 History Allergies Allergy/AdvReac Type Severity Reaction Status Date / Time No Known Allergies Allergy Verified 12/19/17 07:46 Physical Exam Vitals: Vital Signs Temp Pulse Pulse Resp BP Pulse Ox 12/19/17 11:07 97 18 128/69 98 12/19/17 10:31 106 H 12/19/17 10:18 102 H 12/19/17 09:56 100 18 133/87 96 12/19/17 08:42 96 12/19/17 08:32 95 12/19/17 07:47 98 F 96 20 132/68 98 12/19/17 06:32 104 H 12/19/17 06:18 98.6 F 111 H 20 144/77 99 Intake and Output 12/18/17 12/19/17 12/19/17 22:59 06:59 14:59 Other: Weight 90.718 kg Head normocephalic Neck supple Lungs when patient tries to take a deep breath he starts to cough. Otherwise on sounds are clear Heart regular rate and rhythm S1-S2, no rub or gallop. Tenderness with palpation of the chest wall Abdomen is soft nontender nondistended positive bowel sounds no hepatosplenomegaly Extremities no edema Neuro alert and orientated to 3 Results CBC & Chem 7: 12/19/17 06:24 12/19/17 06:24 Labs: Abnormal Lab Results - Last 24 Hours (Table) 12/19/17 12/19/17 12/19/17 Range/Units 06:24 06:24 06:24 MCHC 37.4 H (31.0-37.0) g/dL APTT 21.7 L (22.0-30.0) sec Sodium 136 L (137-145) mmol/L Chloride 96 L (98-107) mmol/L BUN 29 H (9-20) mg/dL Glucose 401 H (74-99) mg/dL POC Glucose (mg/dL) (75-99) mg/dL 12/19/17 Range/Units 09:21 MCHC (31.0-37.0) g/dL APTT (22.0-30.0) sec Sodium (137-145) mmol/L Chloride (98-107) mmol/L BUN (9-20) mg/dL Glucose (74-99) mg/dL POC Glucose (mg/dL) 360 H (75-99) mg/dL Thrombosis Risk Factor Assmnt - Choose All That Apply Any of the Below Risk Factors Present?: Yes Each Factor Represents 1 point: Age 41-60 years, Obesity (BMI >25) Other Risk Factors: No Other congenital or acquired thrombophilia - If yes, enter type in comment: No Thrombosis Risk Factor Assessment Total Risk Factor Score: 2 Thrombosis Risk Factor Assessment Level: Low Risk Assessment and Plan Assessment: 1. Chest pain: Troponin negative 1. EKG showing sinus tachycardia with a heart rate of 109 and incomplete right bundle branch block. Cardiology has been consulted 2. Cough with chest x-ray showing central perihilar peribronchial cuffing that could reflect reactive airway disease from a viral bronchiolitis, slightly more prominent focal retrocardiac infiltrate noted. Patient given a dose of IV dexamethasone and nebulizer treatments in the ER. Influenza screen negative. Continue nebulizer treatments. Start patient on azithromycin and Rocephin 3. Diabetes mellitus type II with elevated blood sugars on admission. Patient did not take his morning medications. We'll resume the Levemir in place of the Tojeo and glipizide. Add sliding scale coverage. 4. Nicotine dependence: Discussed smoking cessation for greater than 3 minutes. Patient is working on quitting smoking is down to 2 cigarettes a day GI prophylaxis Pepcid and DVT prophylaxis subcu heparin Time with Patient: Greater than 30 (Greater than 50% of the total time spent in counseling and coordination of care.I performed an examination of the patient and discussed their management with the physician Patternmaker Pressure Cast. I have reviewed the Physician Patternmaker Pressure Cast's notes and agree with the documented findings and plan of care)
[2017-12-19 14:33] LABS: Troponin I <0.012 ng/mL (0.000-0.034)
[2017-12-19 15:09] LABS: Glucose,Whole Blood 483 mg/dL (75-99)
[2017-12-19] MEDS: cefTRIAXone IN SWFI 1,000 MG/10 ML SYRINGE IVP SCH (15:17)
[2017-12-19] MEDS: ACETAMINOPHEN TAB 325 MG TAB PO PRN ×2 (15:20→20:23)
[2017-12-19] MEDS ORDERED: AZITHROMYCIN 500 MG in SODIUM CHLORIDE 0.9% 250 ML IVPB SCH (16:00)
[2017-12-19] MEDS: INSULIN REGULAR 100 UNIT in SODIUM CHLORIDE 0.9% 100 ML IV SCH ×2 (16:04→21:49)
[2017-12-19] MEDS: IPRATROPIUM-ALBUTEROL 3 ML NEB INHALATION SCH ×3 (16:14→19:12)
[2017-12-19 16:41] LABS: Glucose,Whole Blood 574 mg/dL (75-99)
[2017-12-19 17:04] LABS: Glucose,Whole Blood 518 mg/dL (75-99)
[2017-12-19 17:33] LABS: Glucose,Whole Blood 549 mg/dL (75-99)
[2017-12-19] MEDS: AZITHROMYCIN 500 MG TAB PO SCH (17:50)
[2017-12-19] MEDS: INSULIN ASPART 100 UNIT/ML 1 ML 10 ML VIAL SQ SCH (17:50)
[2017-12-19 18:45] LABS: Creatine Kinase 137 U/L (55-170)
[2017-12-19 18:58] LABS: Creatine Kinase MB 1.6 ng/mL (0.0-2.4); Troponin I <0.012 ng/mL (0.000-0.034)
[2017-12-19 19:05] LABS: Glucose,Whole Blood 546 mg/dL (75-99)
[2017-12-19 20:49] LABS: Glucose,Whole Blood 399 mg/dL (75-99)
[2017-12-19] MEDS ORDERED: INSULIN DETEMIR 100 UNIT/ML 10 ML VIAL SQ SCH (21:00)
[2017-12-19 21:14] LABS: Glucose,Whole Blood 342 mg/dL (75-99)
[2017-12-19] MEDS: GABAPENTIN 400 MG CAP PO SCH (21:20)
[2017-12-19] MEDS: ZOLPIDEM 10 MG TAB PO SCH (21:20)
[2017-12-19] MEDS: HEPARIN SODIUM,PORCINE 5,000 UNIT/ML 1 ML VIAL SQ SCH (21:21)
[2017-12-19 21:22] LABS: Hemoglobin A1C 12.9 % (4.0-6.0)
[2017-12-19] MEDS ORDERED: IPRATROPIUM-ALBUTEROL 3 ML NEB ONE (22:10)
[2017-12-19 22:19] LABS: Glucose,Whole Blood 241 mg/dL (75-99)
[2017-12-20 03:13] LABS: Glucose,Whole Blood 245 mg/dL (75-99)
[2017-12-20 03:13] LABS: Glucose,Whole Blood 251 mg/dL (75-99)
[2017-12-20 04:20] LABS: Glucose,Whole Blood 204 mg/dL (75-99)
[2017-12-20 06:23] LABS: Glucose,Whole Blood 257 mg/dL (75-99)
[2017-12-20] MEDS: ACETAMINOPHEN TAB 325 MG TAB PO PRN ×2 (06:45→16:25)
[2017-12-20] MEDS ORDERED: glipiZIDE 5 MG TAB PO SCH (07:30)
[2017-12-20 07:35] LABS: Basophils % (A) 0 %; Eosinophils # (A) 0.1 k/uL (0-0.7); Eosinophils % (A) 1 %; HCT 37.8 % (39.0-53.0); Hyperchromasia Slight; Lymphocytes # (A) 1.5 k/uL (1.0-4.8); Lymphocytes % (A) 14 %; MCH 30.5 pg (25.0-35.0); MCHC 36.4 g/dL (31.0-37.0); MCV 83.8 fL (80.0-100.0); Mean Platelet Volume 9.5; Monocytes # (A) 0.4 k/uL (0-1.0); Monocytes % (A) 4 %; Neutrophils # (A) 8.6 k/uL (1.3-7.7); Neutrophils % (A) 80 %; Platelet Count 201 k/uL (150-450); RBC 4.51 m/uL (4.30-5.90); WBC 10.8 k/uL (3.8-10.6)
[2017-12-20 07:45] LABS: HGB 13.8 gm/dL (13.0-17.5)
[2017-12-20 07:54] LABS: ALT 26 U/L (21-72); AST 15 U/L (17-59); Albumin 3.1 g/dL (3.5-5.0); Alkaline Phosphatase 62 U/L (38-126); Anion Gap 10 mmol/L; Blood Urea Nitrogen 24 mg/dL (9-20); Calcium 8.8 mg/dL (8.4-10.2); Carbon Dioxide 24 mmol/L (22-30); Chloride 105 mmol/L (98-107); Cholesterol 207 mg/dL (<200); Glucose 243 mg/dL (74-99); HDL Cholesterol 39 mg/dL (40-60); LDL Cholesterol,Calculated 116 mg/dL (0-99); Potassium 4.1 mmol/L (3.5-5.1); Sodium 139 mmol/L (137-145); Total Bilirubin 0.2 mg/dL (0.2-1.3); Total Protein 5.8 g/dL (6.3-8.2); Triglycerides 262 mg/dL (<150)
[2017-12-20] MEDS: IPRATROPIUM-ALBUTEROL 3 ML NEB INHALATION SCH ×4 (07:56→19:17)
[2017-12-20 08:17] LABS: Glucose,Whole Blood 247 mg/dL (75-99)
[2017-12-20 10:09] LABS: Glucose,Whole Blood 248 mg/dL (75-99)
[2017-12-20] MEDS: INSULIN ASPART 100 UNIT/ML 1 ML 10 ML VIAL SQ SCH ×3 (10:15→16:54)
[2017-12-20] MEDS: HEPARIN SODIUM,PORCINE 5,000 UNIT/ML 1 ML VIAL SQ SCH ×2 (10:19→21:32)
--- NOTE | 2017-12-20 10:35 | ECHOF ---
Referral Reason:cp MEASUREMENTS -------- HEIGHT: 170.2 cm WEIGHT: 90.7 kg BP: 128/69 RVIDd: 2.5 cm (< 3.3) IVSd: 1.1 cm (0.6 - 1.1) LVIDd: 4.5 cm (3.9 - 5.3) LVPWd: 1.1 cm (0.6 - 1.1) IVSs: 1.4 cm LVIDs: 3.2 cm LVPWs: 1.4 cm LAESV Index (A-L): 20.30 ml/m Ao Diam: 3.1 cm (2.0 - 3.7) AV Cusp: 1.9 cm (1.5 - 2.6) LA Diam: 3.4 cm (2.7 - 3.8) EPSS: 0.9 cm MV E Tawanda: 0.83 m/s MV DecT: 202 ms MV A T[place]anda: 0.87 m/s MV E/A Ratio: 0.95 RAP: 5.00 mmHg RVSP: 28.84 mmHg MV EF SLOPE: 91.98 mm/s (70 - 150) MV EXCURSION: 1.44 cm (> 18.000) FINDINGS -------- Sinus rhythm. This was a technically adequate study. The left ventricular size is normal. There is borderline concentric left ventricular hypertrophy. Overall left ventricular systolic function is normal with, an EF between 55 - 60 %. The right ventricle is normal in size and function. Normal LA size by volume 22+/-6 ml/m2. The right atrium is normal in size. Aortic valve is trileaflet and is mildly thickened. There is mild aortic regurgitation. There is no evidence of aortic stenosis. The mitral valve leaflets are mildly thickened. There is trace to mild mitral regurgitation. Trace tricuspid regurgitation present. Right ventricular systolic pressure is normal at < 35 mmHg. There is no evidence of pulmonary hypertension. Trace/mild (physiologic) pulmonic regurgitation. The aortic root size is normal. Normal inferior vena cava with normal inspiratory collapse consistent with estimated right atrial pre ssure of 5 mmHg. There is no pericardial effusion. CONCLUSIONS -------- 1. Sinus rhythm. 2. This was a technically adequate study. 3. The left ventricular size is normal. 4. There is borderline concentric left ventricular hypertrophy. 5. Overall left ventricular systolic function is normal with, an EF between 55 - 60 %. 6. Normal LA size by volume 22+/-6 ml/m2. 7. Aortic valve is trileaflet and is mildly thickened. 8. There is mild aortic regurgitation. 9. The mitral valve leaflets are mildly thickened. 10. There is trace to mild mitral regurgitation. 11. Trace tricuspid regurgitation present. 12. Right ventricular systolic pressure is normal at < 35 mmHg. 13. There is no evidence of pulmonary hypertension. 14. Trace/mild (physiologic) pulmonic regurgitation. 15. The aortic root size is normal. 16. There is no pericardial effusion. HANDLE TURNER: Eddie Mojica RDCS
[2017-12-20] MEDS: FAMOTIDINE 20 MG TAB PO SCH (10:46)
--- NOTE | 2017-12-20 11:21 | P.PN ---
Subjective Progress Note Date: 12/20/17 Mr. Squires is seen and examined this morning in follow-up from initial consultation for chest pain. Cardiac enzymes were checked and came in to be negative x3. Repeat EKG unremarkable for ST or T-wave changes. He continues to complain of frequent dry cough with pain in the mid-sternal region with each cough. The pain is again reproducible on palpation. He has been up walking the halls with no symptoms of chest pain unless he coughs. Blood sugars have been elevated and he has been started on an insulin drip per primary. He is also on antibiotics and breathing treatments around the clock with little to no improvement in his cough. Blood pressure 131/62 with heart rate 91 afebrile maintaining oxygen saturation on room air. Echocardiogram obtained reveals preserved left ventricular systolic function with ejection fraction 55-60%, borderline concentric left ventricular hypertrophy, mild aortic regurgitation and no evidence of pulmonary hypertension. LDL 116, HDL 39, triglycerides 262" half-way 107. Objective - Vital Signs Vital signs: Vital Signs Temp 98.4 F 12/20/17 07:25 Pulse 96 12/20/17 08:07 Resp 18 12/20/17 07:25 BP 131/62 12/20/17 07:25 Pulse Ox 98 12/20/17 07:25 Intake & Output 12/19/17 12/20/17 12/20/17 18:59 06:59 18:59 Intake Total 155.46 12.3 Balance 155.46 12.3 Weight 92.4 kg Intake: Intake, IV Titration 155.46 12.3 Amount Insulin Regular 100 unit 155.46 12.3 In Sodium Chloride 0.9% 100 ml @ Titrate IV .Q0M [facility] Rx#:[id number] Other: # Voids 3 - Exam GENERAL: Well-appearing, well-nourished and in no acute distress. NECK: Supple without JVD or thyromegaly. LUNGS: Breath sounds clear to auscultation bilaterally. Respiration equal and unlabored. No wheezes, rales or rhonchi. HEART: Regular rate and rhythm without murmurs, rubs or gallops. S1 and S2 heard. EXTREMITIES: Normal range of motion, no edema. No clubbing or cyanosis. Peripheral pulses intact and strong. - Labs CBC & Chem 7: 12/20/17 06:38 12/20/17 06:38 Labs: Abnormal Lab Results - Last 24 Hours (Table) 12/19/17 12/19/17 12/19/17 Range/Units 12:50 12:54 15:07 WBC (3.8-10.6) k/uL Hct (39.0-53.0) % Neutrophils # (1.3-7.7) k/uL BUN (9-20) mg/dL Glucose (74-99) mg/dL POC Glucose (mg/dL) 475 H 483 H (75-99) mg/dL Hemoglobin A1c 12.9 H (4.0-6.0) % AST (17-59) U/L Total Protein (6.3-8.2) g/dL Albumin (3.5-5.0) g/dL Triglycerides (<150) mg/dL Cholesterol (<200) mg/dL LDL Cholesterol, Calc (0-99) mg/dL HDL Cholesterol (40-60) mg/dL 12/19/17 12/19/17 12/19/17 Range/Units 16:39 17:01 17:31 WBC (3.8-10.6) k/uL Hct (39.0-53.0) % Neutrophils # (1.3-7.7) k/uL BUN (9-20) mg/dL Glucose (74-99) mg/dL POC Glucose (mg/dL) 574 H 518 H 549 H (75-99) mg/dL Hemoglobin A1c (4.0-6.0) % AST (17-59) U/L Total Protein (6.3-8.2) g/dL Albumin (3.5-5.0) g/dL Triglycerides (<150) mg/dL Cholesterol (<200) mg/dL LDL Cholesterol, Calc (0-99) mg/dL HDL Cholesterol (40-60) mg/dL 12/19/17 12/19/17 12/19/17 Range/Units 19:02 20:48 21:13 WBC (3.8-10.6) k/uL Hct (39.0-53.0) % Neutrophils # (1.3-7.7) k/uL BUN (9-20) mg/dL Glucose (74-99) mg/dL POC Glucose (mg/dL) 546 H 399 H 342 H (75-99) mg/dL Hemoglobin A1c (4.0-6.0) % AST (17-59) U/L Total Protein (6.3-8.2) g/dL Albumin (3.5-5.0) g/dL Triglycerides (<150) mg/dL Cholesterol (<200) mg/dL LDL Cholesterol, Calc (0-99) mg/dL HDL Cholesterol (40-60) mg/dL 12/19/17 12/20/17 12/20/17 Range/Units 22:17 00:17 02:17 WBC (3.8-10.6) k/uL Hct (39.0-53.0) % Neutrophils # (1.3-7.7) k/uL BUN (9-20) mg/dL Glucose (74-99) mg/dL POC Glucose (mg/dL) 241 H 245 H 251 H (75-99) mg/dL Hemoglobin A1c (4.0-6.0) % AST (17-59) U/L Total Protein (6.3-8.2) g/dL Albumin (3.5-5.0) g/dL Triglycerides (<150) mg/dL Cholesterol (<200) mg/dL LDL Cholesterol, Calc (0-99) mg/dL HDL Cholesterol (40-60) mg/dL 12/20/17 12/20/17 12/20/17 Range/Units 04:18 06:22 06:38 WBC 10.8 H (3.8-10.6) k/uL Hct 37.8 L (39.0-53.0) % Neutrophils # 8.6 H (1.3-7.7) k/uL BUN (9-20) mg/dL Glucose (74-99) mg/dL POC Glucose (mg/dL) 204 H 257 H (75-99) mg/dL Hemoglobin A1c (4.0-6.0) % AST (17-59) U/L Total Protein (6.3-8.2) g/dL Albumin (3.5-5.0) g/dL Triglycerides (<150) mg/dL Cholesterol (<200) mg/dL LDL Cholesterol, Calc (0-99) mg/dL HDL Cholesterol (40-60) mg/dL 12/20/17 12/20/17 12/20/17 Range/Units 06:38 08:14 10:06 WBC (3.8-10.6) k/uL Hct (39.0-53.0) % Neutrophils # (1.3-7.7) k/uL BUN 24 H (9-20) mg/dL Glucose 243 H (74-99) mg/dL POC Glucose (mg/dL) 247 H 248 H (75-99) mg/dL Hemoglobin A1c (4.0-6.0) % AST 15 L (17-59) U/L Total Protein 5.8 L (6.3-8.2) g/dL Albumin 3.1 L (3.5-5.0) g/dL Triglycerides 262 H (<150) mg/dL Cholesterol 207 H (<200) mg/dL LDL Cholesterol, Calc 116 H (0-99) mg/dL HDL Cholesterol 39 L (40-60) mg/dL Assessment and Plan Assessment: ASSESSMENT 1. Precordial musculoskeletal chest pain, atypical for an acute coronary event. 2. Persistent cough 1 month 3. Diabetes mellitus 4. Chronic tobacco abuse 5. Dyslipidemia PLAN An acute coronary event has been ruled out. No EKG evidence of ischemia and negative cardiac enzymes. Continue with ongoing medical management of bronchitis and uncontrolled diabetes. Recommend lifestyle modifications to decrease cholesterol and smoking cessation. Pain is musculoskeletal in nature with persistent cough. No further cardiac work -up during this admission. Follow-up with Dr. Dickson in 2-3 weeks to discuss outpatient stress testing. Nurse Practitioner note has been reviewed, I agree with a documented findings and plan of care. Patient was seen and examined.
[2017-12-20 11:31] VITALS: BMI 31.8
[2017-12-20] MEDS: cefTRIAXone IN SWFI 1,000 MG/10 ML SYRINGE IVP SCH (11:37)
--- NOTE | 2017-12-20 11:50 | P.PN ---
Subjective Progress Note Date: 12/20/17 This is a 47-year-old male, patient of [facility]. He has a known past medical history of diabetes mellitus type 2 and nicotine dependence. Patient presents to the emergency room with complaints of left-sided chest pain that radiated into the left arm with some left arm numbness. He admits to having some shortness of breath and nausea with this pain. Patient reports pain started around 5:30 in the this morning in the center of his chest. He was getting ready for work initially thought it was related to his coughing. However, on his drive into work he started to have some blurry vision and the chest pain. He turned his car around and came straight to the emergency room. First set up her troponins were negative. EKG had shown sinus tachycardia with a heart rate of 109 and incomplete right bundle branch block. Cardiology was consulted. Patient also has been reporting a mildly productive cough for the past week. About 3 weeks ago he had done a course of antibiotics from the urgent care for an upper respiratory infection. But the cough never did resolve. Chest x-ray shows central. He'll her peribronchial coughing could reflect reactive airway disease from a viral bronchiolitis, slightly more prominent focal retrocardiac infiltrate noted. Patient is been afebrile white count normal. He was given a dose of IV Solu-Medrol and bronchodilators in the emergency room. Patient was also noted to have a blood sugar in the 400s upon admission. He states that he was running late C did not take any of his diabetic meds this morning. The blurry vision has resolved. He does still some lingering chest discomfort that does worsen with his cough. He reports some improvement after being given nitro. And he also has some tenderness with palpation of the chest wall. Patient denies any fever or chills. Denies any vomiting. Denies any bowel movement changes or urinary symptoms. Denies any numbness or tingling in the legs. Patient does report a previous stress test about 5 years ago that was negative. Objective - Vital Signs Vital signs: Vital Signs Temp 98.4 F 12/20/17 07:25 Pulse 96 12/20/17 08:07 Resp 18 12/20/17 08:00 BP 131/62 12/20/17 07:25 Pulse Ox 98 12/20/17 07:25 Intake & Output 04/12/20/17 12/20/17 18:59 06:59 18:59 Intake Total 155.46 12.3 Balance 155.46 12.3 Weight 92.4 kg 92.4 kg Intake: Intake, IV Titration 155.46 12.3 Amount Insulin Regular 100 unit 155.46 12.3 In Sodium Chloride 0.9% 100 ml @ Titrate IV .Q0M [facility] Rx#:[id number] Other: Voiding Method Toilet # Voids 3 - Exam Head normocephalic Neck supple Lungs when patient tries to take a deep breath he starts to cough. Otherwise on sounds are clear Heart regular rate and rhythm S1-S2, no rub or gallop. Tenderness with palpation of the chest wall Abdomen is soft nontender nondistended positive bowel sounds no hepatosplenomegaly Extremities no edema Neuro alert and orientated to 3 - Labs CBC & Chem 7: 12/20/17 06:38 12/20/17 06:38 Labs: Abnormal Lab Results - Last 24 Hours (Table) 12/19/17 12/19/17 12/19/17 Range/Units 12:50 12:54 15:07 WBC (3.8-10.6) k/uL Hct (39.0-53.0) % Neutrophils # (1.3-7.7) k/uL BUN (9-20) mg/dL Glucose (74-99) mg/dL POC Glucose (mg/dL) 475 H 483 H (75-99) mg/dL Hemoglobin A1c 12.9 H (4.0-6.0) % AST (17-59) U/L Total Protein (6.3-8.2) g/dL Albumin (3.5-5.0) g/dL Triglycerides (<150) mg/dL Cholesterol (<200) mg/dL LDL Cholesterol, Calc (0-99) mg/dL HDL Cholesterol (40-60) mg/dL 12/19/17 12/19/17 12/19/17 Range/Units 16:39 17:01 17:31 WBC (3.8-10.6) k/uL Hct (39.0-53.0) % Neutrophils # (1.3-7.7) k/uL BUN (9-20) mg/dL Glucose (74-99) mg/dL POC Glucose (mg/dL) 574 H 518 H 549 H (75-99) mg/dL Hemoglobin A1c (4.0-6.0) % AST (17-59) U/L Total Protein (6.3-8.2) g/dL Albumin (3.5-5.0) g/dL Triglycerides (<150) mg/dL Cholesterol (<200) mg/dL LDL Cholesterol, Calc (0-99) mg/dL HDL Cholesterol (40-60) mg/dL 12/19/17 12/19/17 12/19/17 Range/Units 19:02 20:48 21:13 WBC (3.8-10.6) k/uL Hct (39.0-53.0) % Neutrophils # (1.3-7.7) k/uL BUN (9-20) mg/dL Glucose (74-99) mg/dL POC Glucose (mg/dL) 546 H 399 H 342 H (75-99) mg/dL Hemoglobin A1c (4.0-6.0) % AST (17-59) U/L Total Protein (6.3-8.2) g/dL Albumin (3.5-5.0) g/dL Triglycerides (<150) mg/dL Cholesterol (<200) mg/dL LDL Cholesterol, Calc (0-99) mg/dL HDL Cholesterol (40-60) mg/dL 12/19/17 12/20/17 12/20/17 Range/Units 22:17 00:17 02:17 WBC (3.8-10.6) k/uL Hct (39.0-53.0) % Neutrophils # (1.3-7.7) k/uL BUN (9-20) mg/dL Glucose (74-99) mg/dL POC Glucose (mg/dL) 241 H 245 H 251 H (75-99) mg/dL Hemoglobin A1c (4.0-6.0) % AST (17-59) U/L Total Protein (6.3-8.2) g/dL Albumin (3.5-5.0) g/dL Triglycerides (<150) mg/dL Cholesterol (<200) mg/dL LDL Cholesterol, Calc (0-99) mg/dL HDL Cholesterol (40-60) mg/dL 12/20/17 12/20/17 12/20/17 Range/Units 04:18 06:22 06:38 WBC 10.8 H (3.8-10.6) k/uL Hct 37.8 L (39.0-53.0) % Neutrophils # 8.6 H (1.3-7.7) k/uL BUN (9-20) mg/dL Glucose (74-99) mg/dL POC Glucose (mg/dL) 204 H 257 H (75-99) mg/dL Hemoglobin A1c (4.0-6.0) % AST (17-59) U/L Total Protein (6.3-8.2) g/dL Albumin (3.5-5.0) g/dL Triglycerides (<150) mg/dL Cholesterol (<200) mg/dL LDL Cholesterol, Calc (0-99) mg/dL HDL Cholesterol (40-60) mg/dL 12/20/17 12/20/17 12/20/17 Range/Units 06:38 08:14 10:06 WBC (3.8-10.6) k/uL Hct (39.0-53.0) % Neutrophils # (1.3-7.7) k/uL BUN 24 H (9-20) mg/dL Glucose 243 H (74-99) mg/dL POC Glucose (mg/dL) 247 H 248 H (75-99) mg/dL Hemoglobin A1c (4.0-6.0) % AST 15 L (17-59) U/L Total Protein 5.8 L (6.3-8.2) g/dL Albumin 3.1 L (3.5-5.0) g/dL Triglycerides 262 H (<150) mg/dL Cholesterol 207 H (<200) mg/dL LDL Cholesterol, Calc 116 H (0-99) mg/dL HDL Cholesterol 39 L (40-60) mg/dL Assessment and Plan Plan: 1. Chest pain: Troponin negative 1. EKG showing sinus tachycardia with a heart rate of 109 and incomplete right bundle branch block. Cardiology has been consulted 2. Cough with chest x-ray showing central perihilar peribronchial cuffing that could reflect reactive airway disease from a viral bronchiolitis, slightly more prominent focal retrocardiac infiltrate noted. Patient given a dose of IV dexamethasone and nebulizer treatments in the ER. Influenza screen negative. Continue nebulizer treatments. Start patient on azithromycin and Rocephin 3. Diabetes mellitus type II with elevated blood sugars on admission. Patient did not take his morning medications. We'll resume the Levemir in place of the Tojeo and glipizide. Add sliding scale coverage. 4. Nicotine dependence: Discussed smoking cessation for greater than 3 minutes. Patient is working on quitting smoking is down to 2 cigarettes a day GI prophylaxis Pepcid and DVT prophylaxis subcu heparin. Today patient was seen and examined he is still complaining of significant shortness of breath, no plan per Cardiology for any intervention at this time. Will consult pulmonary consultation Medication and labs were reviewed Will follow in a.m.
[2017-12-20 12:13] LABS: Glucose,Whole Blood 292 mg/dL (75-99)
[2017-12-20 14:07] LABS: Glucose,Whole Blood 269 mg/dL (75-99)
[2017-12-20] MEDS: INSULIN REGULAR 100 UNIT in SODIUM CHLORIDE 0.9% 100 ML IV SCH (14:42)
[2017-12-20 16:18] LABS: Glucose,Whole Blood 323 mg/dL (75-99)
[2017-12-20] MEDS: AZITHROMYCIN 500 MG TAB PO SCH (16:23)
[2017-12-20] MEDS: PROMETHAZ-COD 6.25-10 MG/5 ML 5 ML CUP PO PRN ×2 (17:35→21:32)
[2017-12-20 18:26] LABS: Glucose,Whole Blood 235 mg/dL (75-99)
[2017-12-20 20:08] LABS: Glucose,Whole Blood 279 mg/dL (75-99)
[2017-12-20] MEDS ORDERED: HYDROcodone/APAP 5-325MG 1 EACH TAB PO PRN (20:31)
[2017-12-20] MEDS: ZOLPIDEM 10 MG TAB PO SCH (21:31)
[2017-12-20] MEDS: GABAPENTIN 400 MG CAP PO SCH (21:32)
[2017-12-20 22:05] LABS: Glucose,Whole Blood 346 mg/dL (75-99)
[2017-12-21 00:08] LABS: Glucose,Whole Blood 191 mg/dL (75-99)
[2017-12-21 02:14] LABS: Glucose,Whole Blood 190 mg/dL (75-99)
[2017-12-21] MEDS: PROMETHAZ-COD 6.25-10 MG/5 ML 5 ML CUP PO PRN ×5 (02:41→22:45)
[2017-12-21 04:11] LABS: Glucose,Whole Blood 207 mg/dL (75-99)
[2017-12-21 05:53] LABS: Basophils # (A) 0.1 k/uL (0-0.2); Basophils % (A) 1 %; Eosinophils # (A) 0.5 k/uL (0-0.7); Eosinophils % (A) 7 %; HCT 39.2 % (39.0-53.0); HGB 13.2 gm/dL (13.0-17.5); Lymphocytes # (A) 2.2 k/uL (1.0-4.8); Lymphocytes % (A) 34 %; MCH 29.2 pg (25.0-35.0); MCHC 33.8 g/dL (31.0-37.0); MCV 86.4 fL (80.0-100.0); Monocytes # (A) 0.4 k/uL (0-1.0); Monocytes % (A) 5 %; Neutrophils # (A) 3.3 k/uL (1.3-7.7); Neutrophils % (A) 50 %; Platelet Count 183 k/uL (150-450); RBC 4.53 m/uL (4.30-5.90); RDW 12.4 % (11.5-15.5); WBC 6.6 k/uL (3.8-10.6)
[2017-12-21 06:03] LABS: ALT 21 U/L (21-72); AST 17 U/L (17-59); Albumin 2.9 g/dL (3.5-5.0); Alkaline Phosphatase 49 U/L (38-126); Anion Gap 8 mmol/L; Blood Urea Nitrogen 22 mg/dL (9-20); Calcium 8.3 mg/dL (8.4-10.2); Carbon Dioxide 26 mmol/L (22-30); Chloride 108 mmol/L (98-107); Glucose 160 mg/dL (74-99); Potassium 4.1 mmol/L (3.5-5.1); Sodium 142 mmol/L (137-145); Total Bilirubin 0.2 mg/dL (0.2-1.3); Total Protein 5.4 g/dL (6.3-8.2)
[2017-12-21 06:13] LABS: Glucose,Whole Blood 126 mg/dL (75-99)
[2017-12-21 07:04] LABS: Glucose,Whole Blood 137 mg/dL (75-99)
[2017-12-21] MEDS: IPRATROPIUM-ALBUTEROL 3 ML NEB INHALATION SCH ×4 (07:17→18:58)
[2017-12-21 08:11] LABS: Glucose,Whole Blood 202 mg/dL (75-99)
[2017-12-21] MEDS: INSULIN REGULAR 100 UNIT in SODIUM CHLORIDE 0.9% 100 ML IV SCH (08:23)
[2017-12-21] MEDS: FAMOTIDINE 20 MG TAB PO SCH (08:33)
[2017-12-21] MEDS: HEPARIN SODIUM,PORCINE 5,000 UNIT/ML 1 ML VIAL SQ SCH ×2 (08:33→20:46)
[2017-12-21] MEDS: INSULIN ASPART 100 UNIT/ML 1 ML 10 ML VIAL SQ SCH ×6 (08:33→21:26)
[2017-12-21 10:05] LABS: Glucose,Whole Blood 280 mg/dL (75-99)
--- NOTE | 2017-12-21 10:59 | XR ---
EXAMINATION TYPE: XR chest 2V DATE OF EXAM: 12/21/2017 COMPARISON: 12/19/2017 HISTORY: Chest pain TECHNIQUE: Frontal and lateral views of the chest are obtained. FINDINGS: There is no focal air space opacity. No evidence for pneumothorax. No pleural effusion. The cardiac silhouette size is within normal limits. The osseous structures are grossly intact. IMPRESSION: 1. No acute cardiopulmonary process.
[2017-12-21] MEDS: glipiZIDE 10 MG TAB PO SCH (11:07)
[2017-12-21] MEDS: cefTRIAXone IN SWFI 1,000 MG/10 ML SYRINGE IVP SCH (11:07)
[2017-12-21] MEDS: metFORMIN 500 MG TAB PO SCH ×2 (11:07→18:33)
[2017-12-21] MEDS: INSULIN DETEMIR 100 UNIT/ML 10 ML VIAL SQ SCH (11:07)
[2017-12-21] MEDS ORDERED: RX INFO: IV CONTRAST WAS GIVEN 1 EACH MISC MISCELLANE PRN (11:33)
--- NOTE | 2017-12-21 11:35 | P.PN ---
Subjective Progress Note Date: 12/21/17 This is a 47-year-old male, patient of [facility]. He has a known past medical history of diabetes mellitus type 2 and nicotine dependence. Patient presents to the emergency room with complaints of left-sided chest pain that radiated into the left arm with some left arm numbness. He admits to having some shortness of breath and nausea with this pain. Patient reports pain started around 5:30 in the this morning in the center of his chest. He was getting ready for work initially thought it was related to his coughing. However, on his drive into work he started to have some blurry vision and the chest pain. He turned his car around and came straight to the emergency room. First set up her troponins were negative. EKG had shown sinus tachycardia with a heart rate of 109 and incomplete right bundle branch block. Cardiology was consulted. Patient also has been reporting a mildly productive cough for the past week. About 3 weeks ago he had done a course of antibiotics from the urgent care for an upper respiratory infection. But the cough never did resolve. Chest x-ray shows central. He'll her peribronchial coughing could reflect reactive airway disease from a viral bronchiolitis, slightly more prominent focal retrocardiac infiltrate noted. Patient is been afebrile white count normal. He was given a dose of IV Solu-Medrol and bronchodilators in the emergency room. Patient was also noted to have a blood sugar in the 400s upon admission. He states that he was running late C did not take any of his diabetic meds this morning. The blurry vision has resolved. He does still some lingering chest discomfort that does worsen with his cough. He reports some improvement after being given nitro. And he also has some tenderness with palpation of the chest wall. Patient denies any fever or chills. Denies any vomiting. Denies any bowel movement changes or urinary symptoms. Denies any numbness or tingling in the legs. Patient does report a previous stress test about 5 years ago that was negative. 12/21/2017 patient seen by cardiology and his been cleared for discharge. Patient is still complaining of cough. Awaiting pulmonary service consult. Repeat chest x-ray for this morning is negative. A1c is 12.9. Blood sugar this morning was 137 and trending up into the 200s. We have restarted the Levemir and oral hypoglycemics. Objective - Vital Signs Vital signs: Vital Signs Temp 98.5 F 12/21/17 09:55 Pulse 80 12/21/17 11:13 Resp 16 12/21/17 09:55 BP 108/57 12/21/17 09:55 Pulse Ox 97 12/21/17 09:55 Intake & Output 12/20/17 12/21/17 12/21/17 18:59 06:59 18:59 Intake Total 583.951 5068.494 250.555 Balance 042.402 2935.494 250.555 Weight 92.4 kg Intake: IV 315 0.9 NS @ KVO 240 Insulin Regular 100 unit 75 In Sodium Chloride 0.9% 100 ml @ Titrate IV .Q0M [facility] Rx#:[id number] Intake, IV Titration 75.376 63.494 0.555 Amount Insulin Regular 100 unit 75.376 63.494 0.555 In Sodium Chloride 0.9% 100 ml @ Titrate IV .Q0M [facility] Rx#:[id number] Oral 520 1720 250 Other: Voiding Method Toilet Toilet Toilet # Voids 4 2 - Exam Head normocephalic Neck supple Lungs diminished. Deep inhale causes cough Heart regular rate and rhythm S1-S2, no rub or gallop Abdomen is soft nontender nondistended positive bowel sounds no hepatosplenomegaly Extremities no edema Neuro alert and orientated to 3 - Labs CBC & Chem 7: 12/21/17 05:32 12/21/17 05:32 Labs: Abnormal Lab Results - Last 24 Hours (Table) 12/20/17 12/20/17 12/20/17 Range/Units 12:06 14:04 16:13 Chloride (98-107) mmol/L BUN (9-20) mg/dL Glucose (74-99) mg/dL POC Glucose (mg/dL) 292 H 269 H 323 H (75-99) mg/dL Calcium (8.4-10.2) mg/dL Total Protein (6.3-8.2) g/dL Albumin (3.5-5.0) g/dL 12/20/17 12/20/17 12/20/17 Range/Units 18:23 20:02 22:02 Chloride (98-107) mmol/L BUN (9-20) mg/dL Glucose (74-99) mg/dL POC Glucose (mg/dL) 235 H 279 H 346 H (75-99) mg/dL Calcium (8.4-10.2) mg/dL Total Protein (6.3-8.2) g/dL Albumin (3.5-5.0) g/dL 12/21/17 12/21/17 12/21/17 Range/Units 00:04 02:11 04:05 Chloride (98-107) mmol/L BUN (9-20) mg/dL Glucose (74-99) mg/dL POC Glucose (mg/dL) 191 H 190 H 207 H (75-99) mg/dL Calcium (8.4-10.2) mg/dL Total Protein (6.3-8.2) g/dL Albumin (3.5-5.0) g/dL 12/21/17 12/21/17 12/21/17 Range/Units 05:32 06:11 07:02 Chloride 108 H (98-107) mmol/L BUN 22 H (9-20) mg/dL Glucose 160 H (74-99) mg/dL POC Glucose (mg/dL) 126 H 137 H (75-99) mg/dL Calcium 8.3 L (8.4-10.2) mg/dL Total Protein 5.4 L (6.3-8.2) g/dL Albumin 2.9 L (3.5-5.0) g/dL 12/21/17 12/21/17 Range/Units 08:05 10:02 Chloride (98-107) mmol/L BUN (9-20) mg/dL Glucose (74-99) mg/dL POC Glucose (mg/dL) 202 H 280 H (75-99) mg/dL Calcium (8.4-10.2) mg/dL Total Protein (6.3-8.2) g/dL Albumin (3.5-5.0) g/dL Assessment and Plan Assessment: 1. Chest pain: Troponin negative 3. EKG showing sinus tachycardia with a heart rate of 109 and incomplete right bundle branch block. NH ruled out. Patient evaluated by cardiology and cleared for discharge. Most likely his chest pain is musculoskeletal due to his cough 2. Cough with bronchitis: Continue with antibiotics and nebulizer treatment. Awaiting pulmonary service evaluation. Repeat chest x-ray negative 3. Diabetes mellitus type II with elevated blood sugars on admission. Patient did require an insulin drip. At this time we'll restart his Levemir and oral hypoglycemics 4. Nicotine dependence: Discussed smoking cessation for greater than 3 minutes. Patient is working on quitting smoking is down to 2 cigarettes a day GI prophylaxis Pepcid and DVT prophylaxis subcu heparin I performed an examination of the patient and discussed their management with the physician [employer]. I have reviewed the Physician [employer]'s notes and agree with the documented findings and plan of care
[2017-12-21 11:55] LABS: Glucose,Whole Blood 251 mg/dL (75-99)
--- NOTE | 2017-12-21 12:19 | P.CNPUL ---
History of Present Illness Consult date: 12/21/17 Requesting physician: Michael Randolph Reason for consult: dyspnea Chief complaint: Shortness of breath, cough History of present illness: This is a very pleasant 47-year-old male who follows with Dr. Martinez in the [facility]. He has a history of diabetes mellitus, hyperlipidemia. He has a history of chronic and ongoing tobacco dependence. He has not been seen by a food manager in the past. No home inhalers. He presented here to the emergency room on 12/19/2017 with complaints of midsternal chest discomfort. He also states he has had a dry nonproductive cough for approximately one month now. No fever, chills or night sweats. No hemoptysis. He had been seen and evaluated by cardiology for his chest pain. Echocardiogram revealed preserved left ventricular systolic function. No further cardiac workup was recommended. Was felt to be more of a chest wall discomfort. His tetanus ongoing symptoms were consulted today. He is seen in consultation on the observation unit. He is currently awake and alert in no acute distress. He continues with a dry nonproductive cough. He's been up and bleeding in the house without any desaturations. His chest x-ray was reviewed. There is no acute pulmonary process. No leukocytosis. He's been afebrile. Review of Systems 14 point review of system was conducted. All negative other than as mentioned in HPI. Past Medical History Past Medical History: Diabetes Mellitus, Hyperlipidemia Additional Past Medical History / Comment(s): IDDM type II, neuropathy bilateral feet, past scrotal cellulitis/L testicular abscess with surgery and back abscess with surgery. History of Any Multi-Drug Resistant Organisms: None Reported Past Surgical History: Cholecystectomy Additional Past Surgical History / Comment(s): I&D scrotal abscess, I&D back abscess Past Anesthesia/Blood Transfusion Reactions: No Reported Reaction Smoking Status: Former smoker - Past Family History Mother Family Medical History: Diabetes Mellitus Father History Unknown: Yes Medications and Allergies Home Medications Medication Instructions Recorded Confirmed Type metFORMIN HCL 1,000 mg PO BID 04/30/17 12/19/17 History Ibuprofen [Motrin] 800 mg PO TID PRN 06/01/17 12/19/17 History Albuterol Inhaler [Ventolin Hfa 1 - 2 puff INHALATION Q6HR PRN 12/19/17 History Inhaler] Gabapentin [Neurontin] 1,200 mg PO HS 12/19/17 12/19/17 History Insulin Glargine,Hum.rec.anlog 40 units SQ DAILY 12/19/17 12/19/17 History [[place] Solostar] Insulin Lispro [humaLOG Kwikpen] See Protocol SQ AC-TID 12/19/17 12/19/17 History Zolpidem [Ambien] 10 mg PO HS 12/19/17 12/19/17 History glipiZIDE XL [Glucotrol Xl] 10 mg PO DAILY 12/19/17 12/19/17 History Allergies Allergy/AdvReac Type Severity Reaction Status Date / Time No Known Allergies Allergy Verified 12/19/17 07:46 Physical Exam Vitals: Vital Signs Temp Pulse Pulse Pulse Resp BP BP 12/21/17 11:13 80 12/21/17 11:03 84 12/21/17 09:55 98.5 F 96 16 108/57 12/21/17 07:39 88 12/21/17 07:25 80 12/21/17 04:00 97.9 F 78 18 133/79 12/20/17 23:46 97.8 F 88 18 127/62 12/20/17 23:39 94 18 12/20/17 20:00 94 18 12/20/17 19:47 98.0 F 84 18 116/65 12/20/17 19:29 94 12/20/17 19:19 94 12/20/17 16:00 109 H 101 H 18 12/20/17 15:50 98.5 F 101 H 18 114/63 12/20/17 15:40 96 12/20/17 15:30 94 Pulse Ox 12/21/17 11:13 12/21/17 11:03 12/21/17 09:55 97 12/21/17 07:39 12/21/17 07:25 12/21/17 04:00 97 12/20/17 23:46 98 12/20/17 23:39 12/20/17 20:00 12/20/17 19:47 97 12/20/17 19:29 12/20/17 19:19 12/20/17 16:00 12/20/17 15:50 98 12/20/17 15:40 12/20/17 15:30 Intake and Output 12/20/17 12/21/17 12/21/17 22:59 06:59 14:59 Intake Total 1276.106 851.224 250.555 Balance 1276.106 851.224 250.555 Intake: IV 105 210 0.9 NS @ KVO 80 160 Insulin Regular 100 unit 25 50 In Sodium Chloride 0.9% 100 ml @ Titrate IV .Q0M [facility] Rx#:[id number] Intake, IV Titration 51.106 41.224 0.555 Amount Insulin Regular 100 unit 51.106 41.224 0.555 In Sodium Chloride 0.9% 100 ml @ Titrate IV .Q0M [facility] Rx#:[id number] Oral 1120 600 250 Other: Voiding Method Toilet Toilet Toilet # Voids 2 2 GENERAL EXAM: Alert, active, comfortable in no apparent distress. HEAD: Normocephalic. EYES: Normal reaction of pupils, equal size. NOSE: Clear with pink turbinates. THROAT: No erythema or exudates. NECK: No masses, no JVD. CHEST: No chest wall deformity. LUNGS: Equal air entry with no crackles, wheeze, rhonchi or dullness. CVS: S1 and S2 normal with no audible murmur, regular rhythm. ABDOMEN: No hepatosplenomegaly, normal bowel sounds, no guarding or rigidity. SPINE: No scoliosis or deformity SKIN: No rashes CENTRAL NERVOUS SYSTEM: No focal deficits, tone is normal in all 4 extremities. EXTREMITIES: There is no peripheral edema. No clubbing, no cyanosis. Peripheral pulses are intact. Results - Laboratory Findings CBC and BMP: 12/21/17 05:32 12/21/17 05:32 PT/INR, D-dimer PT 9.8 sec (9.0-12.0) 12/19/17 06:24 INR 1.0 (<1.2) 12/19/17 06:24 D-Dimer 0.24 mg/L FEU (<0.60) 12/20/17 12:07 Abnormal lab findings: Abnormal Labs 12/19/17 12/19/17 12/19/17 06:24 06:24 06:24 WBC Hct MCHC 37.4 H Neutrophils # APTT 21.7 L Sodium 136 L Chloride 96 L BUN 29 H Glucose 401 H POC Glucose (mg/dL) Hemoglobin A1c Calcium AST Total Protein Albumin Triglycerides Cholesterol LDL Cholesterol, Calc HDL Cholesterol 12/19/17 12/19/17 12/19/17 09:21 12:50 12:54 WBC Hct MCHC Neutrophils # APTT Sodium Chloride BUN Glucose POC Glucose (mg/dL) 360 H 475 H Hemoglobin A1c 12.9 H Calcium AST Total Protein Albumin Triglycerides Cholesterol LDL Cholesterol, Calc HDL Cholesterol 12/19/17 12/19/17 12/19/17 15:07 16:39 17:01 WBC Hct MCHC Neutrophils # APTT Sodium Chloride BUN Glucose POC Glucose (mg/dL) 483 H 574 H 518 H Hemoglobin A1c Calcium AST Total Protein Albumin Triglycerides Cholesterol LDL Cholesterol, Calc HDL Cholesterol 12/19/17 12/19/17 12/19/17 17:31 19:02 20:48 WBC Hct MCHC Neutrophils # APTT Sodium Chloride BUN Glucose POC Glucose (mg/dL) 549 H 546 H 399 H Hemoglobin A1c Calcium AST Total Protein Albumin Triglycerides Cholesterol LDL Cholesterol, Calc HDL Cholesterol 12/19/17 12/19/17 12/20/17 21:13 22:17 00:17 WBC Hct MCHC Neutrophils # APTT Sodium Chloride BUN Glucose POC Glucose (mg/dL) 342 H 241 H 245 H Hemoglobin A1c Calcium AST Total Protein Albumin Triglycerides Cholesterol LDL Cholesterol, Calc HDL Cholesterol 12/20/17 12/20/17 12/20/17 02:17 04:18 06:22 WBC Hct MCHC Neutrophils # APTT Sodium Chloride BUN Glucose POC Glucose (mg/dL) 251 H 204 H 257 H Hemoglobin A1c Calcium AST Total Protein Albumin Triglycerides Cholesterol LDL Cholesterol, Calc HDL Cholesterol 12/20/17 12/20/17 12/20/17 06:38 06:38 08:14 WBC 10.8 H Hct 37.8 L MCHC Neutrophils # 8.6 H APTT Sodium Chloride BUN 24 H Glucose 243 H POC Glucose (mg/dL) 247 H Hemoglobin A1c Calcium AST 15 L Total Protein 5.8 L Albumin 3.1 L Triglycerides 262 H Cholesterol 207 H LDL Cholesterol, Calc 116 H HDL Cholesterol 39 L 12/20/17 12/20/17 12/20/17 10:06 12:06 14:04 WBC Hct MCHC Neutrophils # APTT Sodium Chloride BUN Glucose POC Glucose (mg/dL) 248 H 292 H 269 H Hemoglobin A1c Calcium AST Total Protein Albumin Triglycerides Cholesterol LDL Cholesterol, Calc HDL Cholesterol 04/18/18 04/18/18 04/18/18 16:13 18:23 20:02 WBC Hct MCHC Neutrophils # APTT Sodium Chloride BUN Glucose POC Glucose (mg/dL) 323 H 235 H 279 H Hemoglobin A1c Calcium AST Total Protein Albumin Triglycerides Cholesterol LDL Cholesterol, Calc HDL Cholesterol 12/20/17 12/21/17 12/21/17 22:02 00:04 02:11 WBC Hct MCHC Neutrophils # APTT Sodium Chloride BUN Glucose POC Glucose (mg/dL) 346 H 191 H 190 H Hemoglobin A1c Calcium AST Total Protein Albumin Triglycerides Cholesterol LDL Cholesterol, Calc HDL Cholesterol 12/21/17 12/21/17 12/21/17 04:05 05:32 06:11 WBC Hct MCHC Neutrophils # APTT Sodium Chloride 108 H BUN 22 H Glucose 160 H POC Glucose (mg/dL) 207 H 126 H Hemoglobin A1c Calcium 8.3 L AST Total Protein 5.4 L Albumin 2.9 L Triglycerides Cholesterol LDL Cholesterol, Calc HDL Cholesterol 12/21/17 12/21/17 12/21/17 07:02 08:05 10:02 WBC Hct MCHC Neutrophils # APTT Sodium Chloride BUN Glucose POC Glucose (mg/dL) 137 H 202 H 280 H Hemoglobin A1c Calcium AST Total Protein Albumin Triglycerides Cholesterol LDL Cholesterol, Calc HDL Cholesterol 12/21/17 11:51 WBC Hct MCHC Neutrophils # APTT Sodium Chloride BUN Glucose POC Glucose (mg/dL) 251 H Hemoglobin A1c Calcium AST Total Protein Albumin Triglycerides Cholesterol LDL Cholesterol, Calc HDL Cholesterol - Diagnostic Findings Chest x-ray: image reviewed Assessment and Plan Assessment: Impression: #1 Atypical chest pain with ongoing shortness of breath and dry productive cough. No clear evidence of pneumonia. #2 Diabetes mellitus, type II. #3 Hyperlipidemia. #4 Chronic and ongoing tobacco dependence. Plan: The patient was seen and evaluated by Dr. Faulkner. His chest x-ray and labs were reviewed. We'll go ahead and perform a computed tomography scan of the chest with contrast to rule out any underlying abnormalities. Continue with empiric antibiotics. Continue DuoNeb inhalations. Add Pulmicort 1 mg inhalations twice a day. Continue Phenergan with codeine. He is educated regarding the importance of complete smoking cessation. He may benefit from a outpatient workup in our office to perform full pulmonary function testing to evaluate for any suspected chronic obstructive pulmonary disease. We will increase his activity as tolerated. We will continue to follow. I, the cosigning physician, performed a history & physical examination of the patient. Lungs sounds are clear. Maintaining good O2 saturations in the 90s on room air. I discussed the assessment and plan of care with my nurse practitioner, Ashley Dueñas. I attest to the above consultation as dictated by her. Time with Patient: Greater than 30
--- NOTE | 2017-12-21 16:08 | CT ---
EXAMINATION TYPE: CT chest w con DATE OF EXAM: 12/21/2017 COMPARISON: NONE HISTORY: Patient complains of chronic unproductive cough x1 month. CT DLP: 463.7 mGycm, Automated exposure control for dose reduction was used. CONTRAST: Performed injected with 100 mL of Isovue 300. TECHNIQUE: Axial images were obtained at 5 mm thick sections. Reconstructed images are reviewed on [employer] computer in the coronal plane. FINDINGS: Portion of the thyroid visualized is normal. No suspicious lung nodules or focal infiltrates are present. No enlarged mediastinal or hilar adenopathy is evident. The ascending aorta diameter at the level o f the main pulmonary artery is 3.4 cm. The main pulmonary artery diameter at the bifurcation is 2.[address] sections are obtained through the upper abdomen. Abdomen is essentially unremarkable. IMPRESSIONS: 1. No suspicious acute pulmonary process.
[2017-12-21 17:31] LABS: Glucose,Whole Blood 220 mg/dL (75-99)
[2017-12-21] MEDS: AZITHROMYCIN 500 MG TAB PO SCH (18:35)
[2017-12-21] MEDS: BUDESONIDE 1 MG/2 ML NEBU INHALATION SCH (18:58)
[2017-12-21] MEDS: GABAPENTIN 400 MG CAP PO SCH (20:46)
[2017-12-21] MEDS: ZOLPIDEM 10 MG TAB PO SCH (20:46)
[2017-12-21 20:53] LABS: Glucose,Whole Blood 166 mg/dL (75-99)
[2017-12-22] MEDS: PROMETHAZ-COD 6.25-10 MG/5 ML 5 ML CUP PO PRN ×2 (03:55→12:16)
[2017-12-22 06:59] LABS: Basophils # (A) 0.1 k/uL (0-0.2); Basophils % (A) 1 %; Eosinophils # (A) 0.6 k/uL (0-0.7); Eosinophils % (A) 8 %; HCT 41.7 % (39.0-53.0); HGB 14.1 gm/dL (13.0-17.5); Lymphocytes % (A) 28 %; MCH 29.2 pg (25.0-35.0); MCHC 33.9 g/dL (31.0-37.0); MCV 86.2 fL (80.0-100.0); Mean Platelet Volume 9.4; Monocytes # (A) 0.4 k/uL (0-1.0); Monocytes % (A) 6 %; Neutrophils # (A) 3.9 k/uL (1.3-7.7); Neutrophils % (A) 55 %; Platelet Count 194 k/uL (150-450); RBC 4.83 m/uL (4.30-5.90); RDW 12.4 % (11.5-15.5)
[2017-12-22] MEDS: IPRATROPIUM-ALBUTEROL 3 ML NEB INHALATION SCH ×2 (06:59→11:26)
[2017-12-22] MEDS: BUDESONIDE 1 MG/2 ML NEBU INHALATION SCH (06:59)
[2017-12-22 07:09] LABS: Glucose,Whole Blood 199 mg/dL (75-99)
[2017-12-22 07:44] LABS: ALT 28 U/L (21-72); AST 19 U/L (17-59); Albumin 3.1 g/dL (3.5-5.0); Alkaline Phosphatase 56 U/L (38-126); Anion Gap 7 mmol/L; Blood Urea Nitrogen 17 mg/dL (9-20); Calcium 8.6 mg/dL (8.4-10.2); Carbon Dioxide 27 mmol/L (22-30); Chloride 104 mmol/L (98-107); Glucose 208 mg/dL (74-99); Potassium 4.6 mmol/L (3.5-5.1); Sodium 138 mmol/L (137-145); Total Bilirubin 0.3 mg/dL (0.2-1.3); Total Protein 5.7 g/dL (6.3-8.2)
[2017-12-22] MEDS: INSULIN ASPART 100 UNIT/ML 1 ML 10 ML VIAL SQ SCH ×4 (08:16→13:08)
[2017-12-22] MEDS: FAMOTIDINE 20 MG TAB PO SCH (08:17)
[2017-12-22] MEDS: HEPARIN SODIUM,PORCINE 5,000 UNIT/ML 1 ML VIAL SQ SCH (08:17)
[2017-12-22] MEDS: glipiZIDE 10 MG TAB PO SCH (08:17)
[2017-12-22 08:43] VITALS: RESP 18
[2017-12-22] MEDS ORDERED: MUPIROCIN 2% OINT 22 GM TUBE TOPICAL SCH (09:00)
[2017-12-22] MEDS: INSULIN DETEMIR 100 UNIT/ML 10 ML VIAL SQ SCH (09:12)
[2017-12-22 11:57] VITALS: BP 120/71; PULSE 98; TEMP 98.1
[2017-12-22] MEDS: cefTRIAXone IN SWFI 1,000 MG/10 ML SYRINGE IVP SCH (12:12)
[2017-12-22 12:19] LABS: Glucose,Whole Blood 243 mg/dL (75-99)
--- NOTE | 2017-12-22 12:36 | P.PN ---
Subjective Progress Note Date: 12/22/17 Principal diagnosis: Shortness of breath, dry productive cough, possibly related to COPD exacerbation This is a very pleasant 47-year-old male who follows with Dr. Martinez in the [facility]. He has a history of diabetes mellitus, hyperlipidemia. He has a history of chronic and ongoing tobacco dependence. 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 No home inhalers. He presented here to the emergency room on 12/19/2017 with complaints of midsternal chest discomfort. He also states he has had a dry nonproductive cough for approximately one month now. No fever, chills or night sweats. No hemoptysis. He had been seen and evaluated by cardiology for his chest pain. Echocardiogram revealed preserved left ventricular systolic function. No further cardiac workup was recommended. Was felt to be more of a chest wall discomfort. His tetanus ongoing symptoms were consulted today. He is seen in consultation on the observation unit. He is currently awake and alert in no acute distress. He continues with a dry nonproductive cough. He's been up and bleeding in the house without any desaturations. His chest x-ray was reviewed. There is no acute pulmonary process. No leukocytosis. He's been afebrile. On 12/22/2017 patient seen in follow-up. He was started on nebulized Pulmicort , and today he reports improvement with his coughing, shortness of breath. We avoided putting patient on systemic steroids in view of his diabetes. Today he is on room air, O2 sat 98%. Afebrile, respirations are even and nonlabored, although patient does get short of breath with activity. Occasional dry nonproductive cough. Improving. No leukocytosis, renal profile and electrolytes are all within normal limits. From pulmonary standpoint patient is stable for discharge home today, and case management was alert and in regards to obtaining patient nebulizer machine for at home, and Pulmicort nebulized treatments 1 mg twice a day follow-up in the office with Dr. Faulkner in 7-10 days. Objective - Vital Signs Vital signs: Vital Signs Temp 98.1 F 12/22/17 11:56 Pulse 98 12/22/17 12:00 Resp 18 12/22/17 12:00 BP 120/71 12/22/17 11:56 Pulse Ox 98 12/22/17 11:56 Intake & Output 12/21/17 12/22/17 12/22/17 18:59 06:59 18:59 Intake Total 250.555 476 Balance 250.555 476 Intake: Intake, IV Titration 0.555 Amount Insulin Regular 100 unit 0.555 In Sodium Chloride 0.9% 100 ml @ Titrate IV .Q0M LUIZA Rx#:[id number] Oral 250 476 Other: Voiding Method Toilet Toilet Toilet - Exam GENERAL EXAM: Alert, active, comfortable in no apparent distress. HEAD: Normocephalic. EYES: Normal reaction of pupils, equal size. NOSE: Clear with pink turbinates. THROAT: No erythema or exudates. NECK: No masses, no JVD. CHEST: No chest wall deformity. LUNGS: Equal air entry with no crackles, wheeze, rhonchi or dullness. CVS: S1 and S2 normal with no audible murmur, regular rhythm. ABDOMEN: No hepatosplenomegaly, normal bowel sounds, no guarding or rigidity. SPINE: No scoliosis or deformity SKIN: No rashes CENTRAL NERVOUS SYSTEM: No focal deficits, tone is normal in all 4 extremities. EXTREMITIES: There is no peripheral edema. No clubbing, no cyanosis. Peripheral pulses are intact. - Labs CBC & Chem 7: 12/22/17 06:27 12/22/17 06:27 Labs: Abnormal Lab Results - Last 24 Hours (Table) 12/21/17 12/21/17 12/22/17 Range/Units 17:26 20:52 06:27 Glucose 208 H (74-99) mg/dL POC Glucose (mg/dL) 220 H 166 H (75-99) mg/dL Total Protein 5.7 L (6.3-8.2) g/dL Albumin 3.1 L (3.5-5.0) g/dL 12/22/17 12/22/17 Range/Units 07:06 12:10 Glucose (74-99) mg/dL POC Glucose (mg/dL) 199 H 243 H (75-99) mg/dL Total Protein (6.3-8.2) g/dL Albumin (3.5-5.0) g/dL Assessment and Plan Plan: Assessment: #1 Atypical chest pain with ongoing shortness of breath and dry productive cough , likely related to underlying COPD . No clear evidence of pneumonia. #2 Diabetes mellitus, type II. #3 Hyperlipidemia. #4 Chronic and ongoing tobacco dependence. Plan: CT chest was negative for any suspicious acute pulmonary process. Yesterday we started patient on Pulmicort, and today patient reports improvement in his dry nonproductive cough, and dyspnea. Vital signs are stable, he is on room air. From pulmonary standpoint he can be discharged home today on Pulmicort 1 mg nebulized treatments twice a day, follow-up in the office by Dr. Faulkner in 7- 10 days I performed a history & physical examination of the patient and discussed their management with my nurse practitioner, Angela Rucker. I reviewed the nurse practitioner's note and agree with the documented findings and plan of care. Lung sounds are positive for clear lung sounds. The findings and the impression was discussed with the patient. I attest to the documentation by the nurse practitioner. Time with Patient: Less than 30
--- NOTE | 2017-12-22 14:41 | P.DS ---
Providers Date of admission: 12/19/17 08:32 Expected date of discharge: 12/22/17 Attending physician: Michael Randolph Consults: 12/19/17 08:32 Consult Physician Routine Consulting Provider: Pieter Payne Consult Reason/Comments: CP Do you want consulting provider notified?: Yes 12/20/17 11:45 Consult Physician Routine Consulting Provider: Sadie Faulkner Consult Reason/Comments: shortness of breath Do you want consulting provider notified?: Yes Primary care physician: [facility] Course: Discharge diagnosis 1. Chest pain: Troponin negative 3. EKG showing sinus tachycardia with a heart rate of 109 and incomplete right bundle branch block. NM ruled out. Patient evaluated by cardiology and cleared for discharge. Most likely his chest pain is musculoskeletal due to his cough and underlying COPD. Echo shows an EF of 55-60% 2. Cough with bronchitis: Continue with antibiotics and nebulizer treatment. Chest x-ray negative. Computed tomography scan of the chest negative 3. Diabetes mellitus type II with elevated blood sugars on admission. Patient did require an insulin drip. Increase patient's Toujeo to 42 units daily 4. Nicotine dependence: Discussed smoking cessation for greater than 3 minutes. Patient is working on quitting smoking is down to 2 cigarettes a day Hospital course This is a 47-year-old male, patient of [facility]. He has a known past medical history of diabetes mellitus type 2 and nicotine dependence. Patient presents to the emergency room with complaints of left-sided chest pain that radiated into the left arm with some left arm numbness. He admits to having some shortness of breath and nausea with this pain. Patient reports pain started around 5:30 in the this morning in the center of his chest. He was getting ready for work initially thought it was related to his coughing. However, on his drive into work he started to have some blurry vision and the chest pain. He turned his car around and came straight to the emergency room. First set up her troponins were negative. EKG had shown sinus tachycardia with a heart rate of 109 and incomplete right bundle branch block. Cardiology was consulted. Patient also has been reporting a mildly productive cough for the past week. About 3 weeks ago he had done a course of antibiotics from the urgent care for an upper respiratory infection. But the cough never did resolve. Chest x-ray shows central. He'll her peribronchial coughing could reflect reactive airway disease from a viral bronchiolitis, slightly more prominent focal retrocardiac infiltrate noted. Patient is been afebrile white count normal. He was given a dose of IV Solu-Medrol and bronchodilators in the emergency room. Patient was also noted to have a blood sugar in the 400s upon admission. He states that he was running late C did not take any of his diabetic meds this morning. The blurry vision has resolved. He does still some lingering chest discomfort that does worsen with his cough. He reports some improvement after being given nitro. And he also has some tenderness with palpation of the chest wall. Patient denies any fever or chills. Denies any vomiting. Denies any bowel movement changes or urinary symptoms. Denies any numbness or tingling in the legs. Patient does report a previous stress test about 5 years ago that was negative. Patient was seen evaluated by cardiology. Acute coronary syndrome was ruled out. Likely patient's chest discomfort was related to his COPD and cough from the bronchitis. Patient will continue azithromycin for 5 more days. He was seen evaluated by pulmonary service they've added Pulmicort to his regimen of medications and will follow-up with him in the office. Patient also required an insulin drip on admission he did receive a dose of dexamethasone in the ER likely treating to his elevated blood sugars. Blood sugars have improved his A1c is 12.9. 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 At this time his Toujeo has been increased to 42 units daily. Patient is medically stable for discharge. He has been cleared by consulting physicians for discharge. Please refer to chart for any further details. I performed an examination of the patient and discussed their management with the physician Carnival Worker. I have reviewed the Physician Carnival Worker's notes and agree with the documented findings and plan of care Patient Condition at Discharge: Stable Plan - Discharge Summary Discharge Rx Participant: No New Discharge Prescriptions: New Azithromycin [Zithromax] 500 mg PO DAILY@1600 #5 tab Budesonide [Pulmicort] 1 mg INHALATION RT-BID nebu Promethaz-Cod 6.25-10 mg/5 ml [Phenergan with Codeine] 5 ml PO Q4H PRN #90 ml PRN Reason: Cold Symptoms Continue metFORMIN HCL 1,000 mg PO BID Ibuprofen [Motrin] 800 mg PO TID PRN PRN Reason: Pain Gabapentin [Neurontin] 1,200 mg PO HS Insulin Lispro [humaLOG Kwikpen] See Protocol SQ AC-TID glipiZIDE XL [Glucotrol XL] 10 mg PO DAILY Zolpidem [Ambien] 10 mg PO HS Albuterol Inhaler [Ventolin Hfa Inhaler] 1 - 2 puff INHALATION Q6HR PRN PRN Reason: sob Changed Insulin Glargine,Hum.rec.anlog [Toujeo Solostar] 42 units SQ DAILY #0 Discharge Medication List metFORMIN HCL 1,000 mg PO BID 04/30/17 [History] Ibuprofen [Motrin] 800 mg PO TID PRN 06/01/17 [History] Albuterol Inhaler [Ventolin Hfa Inhaler] 1 - 2 puff INHALATION Q6HR PRN [History] Gabapentin [Neurontin] 1,200 mg PO HS 12/19/17 [History] Insulin Lispro [humaLOG Kwikpen] See Protocol SQ AC-TID 12/19/17 [History] Zolpidem [Ambien] 10 mg PO HS 12/19/17 [History] glipiZIDE XL [Glucotrol XL] 10 mg PO DAILY 12/19/17 [History] Azithromycin [Zithromax] 500 mg PO DAILY@1600 #5 tab 12/22/17 [Rx] Budesonide [Pulmicort] 1 mg INHALATION RT-BID nebu 12/22/17 [Rx] Insulin Glargine,Hum.rec.anlog [Toujeo Solostar] 42 units SQ DAILY #0 12/22/17 [ Rx] Promethaz-Cod 6.25-10 mg/5 ml [Phenergan with Codeine] 5 ml PO Q4H PRN #90 ml [Rx] Follow up Appointment(s)/Referral(s): Summer De La Cruz DO [Primary Care Provider] - 1-2 days Alfredo Dickson MD [STAFF PHYSICIAN] - 01/11/18 4:30 pm Sadie Faulkner MD [STAFF PHYSICIAN] - 1 Week Activity/Diet/Wound Care/Special Instructions: Nebulizer - [facility] - [phone] - will deliver to bedside before discharge. Diet: diabetic Activity: as tolerated Discharge Disposition: HOME SELF-CARE
== END 2017-12-22 15:25 | disposition home or self-care (01) ==
LOC: EC 06:16 → 3OBS 08:32
PROVIDERS: ADMIT Internal Medicine; ATTEND Internal Medicine
DX: R07.89 Other chest pain (principal); J40 Bronchitis, not specified as acute or chronic; F17.210 Nicotine dependence, cigarettes, uncomplicated; E11.65 Type 2 diabetes mellitus with hyperglycemia; E11.40 Type 2 diabetes mellitus with diabetic neuropathy, unspecified; E66.9 Obesity, unspecified; Z68.31 Body mass index [BMI] 31.0-31.9, adult; F41.9 Anxiety disorder, unspecified; E78.5 Hyperlipidemia, unspecified; Z79.4 Long term (current) use of insulin; Z79.899 Other long term (current) drug therapy; Z83.3 Family history of diabetes mellitus
CPT/HCPCS: 99285 ×2; 96375 ×3; 96361 ×2; 96365; 96372 ×3; 96376 ×3; 36415; 94640 ×8; 93005; 93306; 85379; 80061; 80053 ×4; 82550; 82553; 83735; 84484; 85025 ×4; 85610; 85730; 87502; 83036; 71046 ×2; 71260; G0378 ×4; J1644 ×3; J1100; J0456; J0696 ×4; Q9967

== ENCOUNTER 2018-03-09 11:54 | Emergency (ER) | payer BC ==
[2018-03-09 12:02] VITALS: RESP 18
[2018-03-09] MEDS ORDERED: SODIUM CHLORIDE 0.9% 2,000 ML IV STA (12:10)
--- NOTE | 2018-03-09 12:20 | ED ---
General Adult HPI - General Chief complaint: Recheck/Abnormal Lab/Rx Stated complaint: hyperglycemia Time Seen by Provider: 03/09/18 12:07 Source: patient, RN notes reviewed Mode of arrival: ambulatory Limitations: no limitations - History of Present Illness Initial comments: This a 48-year-old male presents emergency from for PCPs office for hyperglycemia. Patient states that he has not taken any of his medications over the last 6 months because he just gave up on it. Patient states he now feels that he wants to get things corrected. Patient wants PCP who gave him insulin and symptom here for further evaluation. Patient, read high and was about 600 the time. Patient has no specific complaints. Patient denies any nausea, vomiting, headache, dizziness, chest pain, shortness breath. He doesn' t is mild polydipsia polyuria. - Related Data Home Medications Medication Instructions Recorded Confirmed Ibuprofen [Motrin] 800 mg PO TID PRN 06/01/17 03/09/18 Gabapentin [Neurontin] 300 mg PO TID 12/19/17 03/09/18 Allergies Allergy/AdvReac Type Severity Reaction Status Date / Time No Known Allergies Allergy Verified 03/09/18 12:38 Review of Systems ROS Statement: Those systems with pertinent positive or pertinent negative responses have been documented in the HPI. ROS Other: All systems not noted in ROS Statement are negative. Past Medical History Past Medical History: Diabetes Mellitus, Hyperlipidemia Additional Past Medical History / Comment(s): IDDM type II, neuropathy bilateral feet, past scrotal cellulitis/L testicular abscess with surgery and back abscess with surgery. History of Any Multi-Drug Resistant Organisms: None Reported Past Surgical History: Cholecystectomy Additional Past Surgical History / Comment(s): I&D scrotal abscess, I&D back abscess Past Anesthesia/Blood Transfusion Reactions: No Reported Reaction Past Psychological History: Anxiety Smoking Status: Former smoker Past Alcohol Use History: None Reported Past Drug Use History: None Reported - Past Family History Mother Family Medical History: Diabetes Mellitus Father History Unknown: Yes General Exam Limitations: no limitations General appearance: alert, in no apparent distress Head exam: Present: atraumatic, normocephalic, normal inspection Eye exam: Present: normal appearance, PERRL, EOMI. Absent: scleral icterus, conjunctival injection, periorbital swelling ENT exam: Present: normal exam, mucous membranes moist. Absent: normal oropharynx (Missing dentition noted) Neck exam: Present: normal inspection. Absent: tenderness, meningismus, lymphadenopathy Respiratory exam: Present: normal lung sounds bilaterally. Absent: respiratory distress, wheezes, rales, rhonchi, stridor Cardiovascular Exam: Present: regular rate, normal rhythm, normal heart sounds. Absent: systolic murmur, diastolic murmur, rubs, gallop, clicks GI/Abdominal exam: Present: soft, normal bowel sounds. Absent: distended, tenderness, guarding, rebound, rigid Neurological exam: Present: alert, oriented X3, CN II-XII intact Skin exam: Present: warm, dry, intact, normal color. Absent: rash Course Vital Signs 03/09/18 03/09/18 03/09/18 11:58 13:25 14:20 Temperature 97.6 F 98.0 F 97.8 F Pulse Rate 96 85 74 Respiratory 18 18 18 Rate Blood Pressure 110/72 141/81 131/79 O2 Sat by Pulse 100 84 L 96 Oximetry Medical Decision Making - Medical Decision Making This a 48-year-old male presented from for hyperglycemia. Patient stated that he had not been taking care of himself because he chose not to uses insulin. Patient went to his PCP and sent here. Patient's found to be hypoglycemic was given IV fluids and IV insulin blood sugar has improved. Patient is not in DKA. Patient will be discharged advised follow-up PCP for medications and return parameters were discussed. - Lab Data Result diagrams: 03/09/18 12:26 03/09/18 12:26 Lab Results 03/09/18 03/09/18 03/09/18 Range/Units 12:26 12:26 12:26 WBC 7.6 (3.8-10.6) k/uL RBC 5.23 (4.30-5.90) m/uL Hgb 16.1 (13.0-17.5) gm/dL Hct 46.2 (39.0-53.0) % MCV 88.3 (80.0-100.0) fL MCH 30.9 (25.0-35.0) pg MCHC 35.0 (31.0-37.0) g/dL RDW 12.7 (11.5-15.5) % Plt Count 229 (150-450) k/uL Neutrophils % 74 % Lymphocytes % 17 % Monocytes % 5 % Eosinophils % 2 % Basophils % 1 % Neutrophils # 5.6 (1.3-7.7) k/uL Lymphocytes # 1.3 (1.0-4.8) k/uL Monocytes # 0.4 (0-1.0) k/uL Eosinophils # 0.2 (0-0.7) k/uL Basophils # 0.1 (0-0.2) k/uL VBG pH (7.31-7.41) VBG pCO2 (37-51) mmHg VBG HCO3 (24-28) mmol/L Sodium 134 L (137-145) mmol/L Potassium 4.5 (3.5-5.1) mmol/L Chloride 96 L (98-107) mmol/L Carbon Dioxide 24 (22-30) mmol/L Anion Gap 14 mmol/L BUN 18 (9-20) mg/dL Creatinine 0.90 (0.66-1.25) mg/dL Est GFR (CKD-EPI)AfAm >90 (>60 ml/min/1.73 sqM) Est GFR (CKD-EPI)NonAf >90 (>60 ml/min/1.73 sqM) Glucose 527 H* (74-99) mg/dL POC Glucose (mg/dL) (75-99) mg/dL POC Glu Rubber Covering Machine Operator ID Calcium 9.4 (8.4-10.2) mg/dL Total Bilirubin 0.6 (0.2-1.3) mg/dL AST 22 (17-59) U/L ALT 33 (21-72) U/L Alkaline Phosphatase 95 (38-126) U/L Total Protein 6.8 (6.3-8.2) g/dL Albumin 4.0 (3.5-5.0) g/dL Amylase 66 (30-110) U/L Lipase 230 (23-300) U/L Urine Color Light Yellow Urine Appearance Clear (Clear) Urine pH 6.0 (5.0-8.0) Ur Specific Birney 1.025 (1.001-1.035) Urine Protein Negative (Negative) Urine Glucose (UA) 4+ H (Negative) Urine Ketones Negative (Negative) Urine Blood Negative (Negative) Urine Nitrite Negative (Negative) Urine Bilirubin Negative (Negative) Urine Urobilinogen <2.0 (<2.0) mg/dL Ur Leukocyte Esterase Negative (Negative) Acetone, Qual Negative (Negative) 03/09/18 03/09/18 03/09/18 Range/Units 12:26 13:27 14:20 WBC (3.8-10.6) k/uL RBC (4.30-5.90) m/uL Hgb (13.0-17.5) gm/dL Hct (39.0-53.0) % MCV (80.0-100.0) fL MCH (25.0-35.0) pg MCHC (31.0-37.0) g/dL RDW (11.5-15.5) % Plt Count (150-450) k/uL Neutrophils % % Lymphocytes % % Monocytes % % Eosinophils % % Basophils % % Neutrophils # (1.3-7.7) k/uL Lymphocytes # (1.0-4.8) k/uL Monocytes # (0-1.0) k/uL Eosinophils # (0-0.7) k/uL Basophils # (0-0.2) k/uL VBG pH 7.31 (7.31-7.41) VBG pCO2 56 H (37-51) mmHg VBG HCO3 27 (24-28) mmol/L Sodium (137-145) mmol/L Potassium (3.5-5.1) mmol/L Chloride (98-107) mmol/L Carbon Dioxide (22-30) mmol/L Anion Gap mmol/L BUN (9-20) mg/dL Creatinine (0.66-1.25) mg/dL Est GFR (CKD-EPI)AfAm (>60 ml/min/1.73 sqM) Est GFR (CKD-EPI)NonAf (>60 ml/min/1.73 sqM) Glucose (74-99) mg/dL POC Glucose (mg/dL) 456 H 204 H (75-99) mg/dL POC Glu Rubber Covering Machine Operator Chantal Herron Nicole Calcium (8.4-10.2) mg/dL Total Bilirubin (0.2-1.3) mg/dL AST (17-59) U/L ALT (21-72) U/L Alkaline Phosphatase (38-126) U/L Total Protein (6.3-8.2) g/dL Albumin (3.5-5.0) g/dL Amylase (30-110) U/L Lipase (23-300) U/L Urine Color Urine Appearance (Clear) Urine pH (5.0-8.0) Ur Specific Birney (1.001-1.035) Urine Protein (Negative) Urine Glucose (UA) (Negative) Urine Ketones (Negative) Urine Blood (Negative) Urine Nitrite (Negative) Urine Bilirubin (Negative) Urine Urobilinogen (<2.0) mg/dL Ur Leukocyte Esterase (Negative) Acetone, Qual (Negative) Disposition Clinical Impression: Hyperglycemia, Noncompliance with medications, Uncontrolled diabetes mellitus Disposition: HOME SELF-CARE Condition: Stable Instructions: Diabetic Hyperglycemia (ED) Additional Instructions: Please return to the Emergency Department if symptoms worsen or any other concerns. Is patient prescribed a controlled substance at d/c from ED?: No Referrals: Summer De La Cruz DO [Primary Care Provider] - 1-2 days Time of Disposition: 14:25
[2018-03-09 12:37] LABS: Appearance,Urine Clear (Clear); Bilirubin,Urine Negative (Negative); Blood,Urine Negative (Negative); Color,Urine Light Yellow; Glucose,Urine (UA) 4+ (Negative); Ketones,Urine Negative (Negative); Leukocyte Esterase,Urine Negative (Negative); Nitrite,Urine Negative (Negative); Protein,Urine Negative (Negative); Specific Gravity,Urine 1.025 (1.001-1.035); Urobilinogen,Urine <2.0 mg/dL (<2.0)
[2018-03-09 12:39] LABS: Basophils # (A) 0.1 k/uL (0-0.2); Basophils % (A) 1 %; Eosinophils # (A) 0.2 k/uL (0-0.7); Eosinophils % (A) 2 %; HCT 46.2 % (39.0-53.0); HGB 16.1 gm/dL (13.0-17.5); Lymphocytes # (A) 1.3 k/uL (1.0-4.8); Lymphocytes % (A) 17 %; MCH 30.9 pg (25.0-35.0); MCV 88.3 fL (80.0-100.0); Mean Platelet Volume 8.5; Monocytes # (A) 0.4 k/uL (0-1.0); Monocytes % (A) 5 %; Neutrophils # (A) 5.6 k/uL (1.3-7.7); Neutrophils % (A) 74 %; Platelet Count 229 k/uL (150-450); RBC 5.23 m/uL (4.30-5.90); RDW 12.7 % (11.5-15.5); VBG PH 7.31 (7.31-7.41); WBC 7.6 k/uL (3.8-10.6)
[2018-03-09 12:53] LABS: ALT 33 U/L (21-72); AST 22 U/L (17-59); Alkaline Phosphatase 95 U/L (38-126); Amylase 66 U/L (30-110); Anion Gap 14 mmol/L; Blood Urea Nitrogen 18 mg/dL (9-20); Calcium 9.4 mg/dL (8.4-10.2); Carbon Dioxide 24 mmol/L (22-30); Chloride 96 mmol/L (98-107); Lipase 230 U/L (23-300); Potassium 4.5 mmol/L (3.5-5.1); Sodium 134 mmol/L (137-145); Total Bilirubin 0.6 mg/dL (0.2-1.3); Total Protein 6.8 g/dL (6.3-8.2)
[2018-03-09 13:03] LABS: Glucose 527 mg/dL (74-99)
[2018-03-09] MEDS ORDERED: INSULIN REGULAR 100 UNIT/ML VIAL IV ONE (13:15)
[2018-03-09 13:29] LABS: Glucose,Whole Blood 456 mg/dL (75-99)
[2018-03-09 14:21] VITALS: BP 131/79; PULSE 74; TEMP 97.8
[2018-03-09 14:22] LABS: Glucose,Whole Blood 204 mg/dL (75-99)
== END 2018-03-09 14:51 | disposition home or self-care (01) ==
LOC: EC 11:54
DX: E11.65 Type 2 diabetes mellitus with hyperglycemia (principal); Z91.14 Patient's other noncompliance with medication regimen; E11.40 Type 2 diabetes mellitus with diabetic neuropathy, unspecified; Z87.891 Personal history of nicotine dependence; Z79.899 Other long term (current) drug therapy
CPT/HCPCS: 36415; 80053; 81003; 82009; 82150; 82803; 83690; 85025; 96360; 96361; 99283

== ENCOUNTER 2018-06-25 15:34 | Emergency (ER) | payer BC ==
[2018-06-25 15:44] VITALS: BP 129/83; PULSE 84; RESP 18; TEMP 97.6
[2018-06-25] MEDS ORDERED: CEPHALEXIN 500 MG CAP PO STA (15:51)
--- NOTE | 2018-06-25 15:53 | ED ---
Skin/Abscess/FB HPI - General Chief complaint: Skin/Abscess/Foreign Body Stated complaint: Lump on shoulder Time Seen by Provider: 06/25/18 15:45 Source: patient, RN notes reviewed Mode of arrival: ambulatory Limitations: no limitations - History of Present Illness Initial comments: This is a 48-year-old male who presents to the emergency department with chief complaint of left shoulder "lump." Patient states that he noticed a small lesion on his left shoulder 4 days ago. He states that it has grown in size and is becoming red. He states he has been applying a wound cream as well as an antibiotic cream. He denies any drainage. Denies any fevers or chills. States that he has a history of cellulitis and abscesses. Denies any history of MRSA. Denies chest pain or shortness of breath, abdominal pain, nausea or vomiting. - Related Data Home Medications Medication Instructions Recorded Confirmed Ibuprofen [Motrin] 800 mg PO TID PRN 06/01/17 03/09/18 Gabapentin [Neurontin] 300 mg PO TID 12/19/17 03/09/18 Previous Rx's Medication Instructions Recorded Cephalexin [Keflex] 500 mg PO Q12HR #20 cap 06/25/18 Allergies Allergy/AdvReac Type Severity Reaction Status Date / Time No Known Allergies Allergy Verified 06/25/18 15:44 Review of Systems ROS Statement: Those systems with pertinent positive or pertinent negative responses have been documented in the HPI. ROS Other: All systems not noted in ROS Statement are negative. Past Medical History Past Medical History: Diabetes Mellitus, Hyperlipidemia Additional Past Medical History / Comment(s): IDDM type II, neuropathy bilateral feet, past scrotal cellulitis/L testicular abscess with surgery and back abscess with surgery. History of Any Multi-Drug Resistant Organisms: None Reported Past Surgical History: Cholecystectomy Additional Past Surgical History / Comment(s): I&D scrotal abscess, I&D back abscess Past Anesthesia/Blood Transfusion Reactions: No Reported Reaction Past Psychological History: Anxiety Smoking Status: Current every day smoker Past Alcohol Use History: Occasional Past Drug Use History: None Reported - Past Family History Mother Family Medical History: Diabetes Mellitus Father History Unknown: Yes General Exam - General Exam Comments Initial Comments: General: Awake and alert, well-developed; in no apparent distress. HEENT: Head atraumatic, normocephalic. Pupils are equal, round and reactive to light. Extraocular movements intact. Oropharynx moist without erythema or exudate. Neck: Supple. Normal ROM. Cardiovascular: Regular rate and rhythm. No murmurs, rubs or gallops. Chest symmetrical. Respiratory: Lungs clear to auscultation bilaterally. No wheezes, rales or rhonchi. Normal respiratory effort with no use of accessory muscles. Musculoskeletal: Normal ROM, no tenderness bilateral upper and lower extremities. Ambulating normally. Skin: Approximately 2.0 cm raised erythematous area of induration with no active drainage and central dark crusting left superior shoulder. Neurological: Alert and oriented x3. CN II-XII grossly intact. Speech is fluent and answers are appropriate. No focal neuro deficits. Psychiatric: Normal mood and affect. No overt signs of depression or anxiety noted. Limitations: no limitations Course Vital Signs 06/25/18 15:42 Temperature 97.6 F Pulse Rate 84 Respiratory 18 Rate Blood Pressure 129/83 O2 Sat by Pulse 98 Oximetry Medical Decision Making - Medical Decision Making This is a 48-year-old male who presents to the emergency department with chief complaint of left shoulder "lump.". Patient has an erythematous raised area of induration on the left shoulder. No active drainage. Patient denies any fevers or chills. Denies history of MRSA. Recommended warm compresses. Patient will be started on a course of Keflex. Vitals are stable and patient is in no acute distress. He will be discharged home at this time. He is in agreement with plan and voices understanding. All questions were answered. Disposition Clinical Impression: Cellulitis Disposition: HOME SELF-CARE Condition: Good Instructions: Cellulitis (ED), Abscess (ED) Additional Instructions: Please take medications as prescribed. Please apply warm compresses 15 minutes at a time for at least 4 times daily. Please follow up with primary care provider within 1-2 days. Return to emergency department if symptoms should worsen or any concerns arise. Prescriptions: Cephalexin [Keflex] 500 mg PO Q12HR #20 cap Is patient prescribed a controlled substance at d/c from ED?: No Referrals: Summer De La Cruz DO [Primary Care Provider] - 1-2 days Time of Disposition: 15:53
== END 2018-06-25 16:03 | disposition home or self-care (01) ==
LOC: EC 15:34
DX: L03.114 Cellulitis of left upper limb (principal); G62.9 Polyneuropathy, unspecified; F41.9 Anxiety disorder, unspecified; F17.200 Nicotine dependence, unspecified, uncomplicated; Z90.49 Acquired absence of other specified parts of digestive tract; Z98.890 Other specified postprocedural states; Z79.899 Other long term (current) drug therapy
CPT/HCPCS: 99282

== ENCOUNTER 2019-11-02 14:36 | Observation (INO) | payer BC, OTHER ==
[2019-11-02] MEDS ORDERED: ASPIRIN 81 MG PO STA ×2 (14:46→15:55)
[2019-11-02 15:32] LABS: Albumin 3.8 g/dL (3.5-5.0); Calcium 9.4 mg/dL (8.4-10.2); Magnesium 1.9 mg/dL (1.6-2.3); Potassium 4.7 mmol/L (3.5-5.1); Total Bilirubin 0.3 mg/dL (0.2-1.3); Total Protein 6.7 g/dL (6.3-8.2)
--- NOTE | 2019-11-02 15:35 | ED ---
Dizziness HPI - General Source: patient Mode of arrival: ambulatory Limitations: no limitations <Keya Gray - Last Filed: 11/03/19 16:20> <Malena Christopher - Last Filed: 11/03/19 23:04> - General Chief Complaint: Dizziness Stated Complaint: Dizzy Time Seen by Provider: 11/02/19 14:46 - History of Present Illness Initial Comments: 49-year-old male with PMH of DMII insulin dependent presenting today for chief complaint of lightheadedness x4 days. Patient states that he has had been lightheaded for the past 4 days as well as experiencing some intermittent chest pain that he describes as stabbing states at times it does increase with inspiration. He states he can feel in his neck as well as in his back. Patient denies any syncope, but states he has felt pre syncopal. Patient states this has occurred in the past when he had low blood pressure. Patient denies ripping, tearing back or neck pain. Patient denies vomiting nausea nausea headache sensation that the room is spinning nor diplopia. Denies hemoptysis recent surgeries swelling recent immobilization or travel, exogenous hormone use active cancer recent DVT or pulmonary embolism. Patient did have a retinal surgery diabetic retinopathy earlier this week (right eye). Patient denies new vision loss speech changes weakness of the upper or lower extremities, sensation deficits. Patient upon arrival appears well, nontoxic. (Keya Gray) - Related Data Home Medications Medication Instructions Recorded Confirmed Ibuprofen [Motrin] 800 mg PO TID PRN 06/01/17 11/02/19 Albuterol Inhaler [Ventolin Hfa 1 - 2 puff INHALATION RT-Q6H PRN 11/02/19 11/02/19 Inhaler] DULoxetine HCL [Cymbalta] 60 mg PO DAILY 11/02/19 11/02/19 Gabapentin 800 mg PO TID 11/02/19 11/02/19 Insulin Glargine,Hum.rec.anlog 80 unit SQ HS 11/02/19 11/02/19 [Basaglar Jeniikpen U-100] Insulin Lispro [Admelog] See Protocol SQ AC-TID 11/02/19 11/02/19 Rosuvastatin [Crestor] 10 mg PO HS 11/02/19 11/02/19 metFORMIN HCL 1,000 mg PO BID 11/02/19 11/02/19 traZODone HCL 50 - 100 mg PO HS PRN 11/02/19 11/02/19 Allergies Allergy/AdvReac Type Severity Reaction Status Date / Time No Known Allergies Allergy Verified 11/02/19 15:26 Review of Systems ROS Other: All systems not noted in ROS Statement are negative. <Keya Gray - Last Filed: 11/03/19 16:20> ROS Other: All systems not noted in ROS Statement are negative. <Malena Christopher Harshal - Last Filed: 11/03/19 23:04> ROS Statement: Those systems with pertinent positive or pertinent negative responses have been documented in the HPI. Past Medical History Past Medical History: Diabetes Mellitus, Hyperlipidemia Additional Past Medical History / Comment(s): IDDM type II, neuropathy bilateral feet, past scrotal cellulitis/L testicular abscess with surgery and back abscess with surgery. History of Any Multi-Drug Resistant Organisms: None Reported Past Surgical History: Cholecystectomy Additional Past Surgical History / Comment(s): I&D scrotal abscess, I&D back abscess Past Anesthesia/Blood Transfusion Reactions: No Reported Reaction Past Psychological History: Anxiety Smoking Status: Current every day smoker Past Alcohol Use History: Occasional Past Drug Use History: None Reported - Past Family History Mother Family Medical History: Diabetes Mellitus Father History Unknown: Yes <Keya Gray - Last Filed: 11/03/19 16:20> General Exam Limitations: no limitations <Keya Gray - Last Filed: 11/03/19 16:20> - General Exam Comments Initial Comments: General: The patient is awake and alert, in no distress Eye: +3 mm pupils are equal, round and reactive to light, extra-ocular movements are intact. No nystagmus. There is normal conjunctiva bilaterally. No signs of icterus. Ears, nose, mouth and throat: There are moist mucous membranes and no oral lesions. Neck: The neck is supple, there is no tenderness or JVD. Cardiovascular: There is a regular rate and rhythm. No murmur, rub or gallop is appreciated. Respiratory: Lungs are clear to auscultation, respirations are non-labored, breath sounds are equal. No wheezes, stridor, rales, or rhonchi. Gastrointestinal: Soft, non-distended, non-tender abdomen without masses or organomegaly noted. There is no rebound or guarding present. Musculoskeletal: Normal ROM, no tenderness. Strength 5/5. Sensation intact. Radial and DP pulses equal bilaterally 2+. Neurological: A&O x 3. CN II-XII intact grossly, There are no obvious motor or sensory deficits. Coordination appears grossly intact. Speech is normal. Heel to leon, finger to nose smooth and coordinated, gait coordinated. Skin: Skin is warm and dry and no rashes or lesions are noted. NO LE edema or calf swelling. Psychiatric: Cooperative, appropriate mood & affect, normal judgment. (Keya Gray) Course Vital Signs 11/02/19 11/02/19 11/02/19 14:38 15:42 16:15 Temperature 97.8 F Pulse Rate 96 68 80 Pulse Rate [ Pulse Oximetery ] Respiratory 16 17 17 Rate Blood Pressure 118/78 95/61 102/59 Blood Pressure [Sitting] Blood Pressure [Standing] Blood Pressure [Supine] O2 Sat by Pulse 100 99 98 Oximetry 11/02/19 11/02/19 11/02/19 16:27 16:51 17:06 Temperature Pulse Rate 80 82 Pulse Rate [ 88 Pulse Oximetery ] Respiratory 17 17 17 Rate Blood Pressure 127/85 165/89 Blood Pressure 116/80 [Sitting] Blood Pressure 103/70 [Standing] Blood Pressure 150/88 [Supine] O2 Sat by Pulse 98 98 99 Oximetry Medical Decision Making - Lab Data Result diagrams: 11/02/19 15:13 11/02/19 15:13 <Keya Gray - Last Filed: 11/03/19 16:20> - Lab Data Result diagrams: 11/02/19 15:13 11/02/19 15:13 <Malena Christopher - Last Filed: 11/03/19 23:04> - Medical Decision Making 49-year-old male presents today for chief complaint of lightheadedness, pre- syncope, intermittenet chest pain. Given aspirin on arrival. nitroglycerin will be held for now as patient was found to have blood pressure in the lower aspect of normal and was significantly orthostatic. Chest pain resolved within an hour of arriving. Patient was found to have NIXON. Patient has dry lips, concern for possible pre-renal injury in the ddx, No flank pain, history of stones, patient producing urine. Now new medications. He has no current SOB, oxygenating well on RA. Dimer WNL. No active cancer, recent surgeries, calf swelling, recent adela el/immobilization. Patient will be admitted for chest pain r/o, NIXON evaluation, presyncope. Case discussed with who discussed case with accepting admitting provider. Patietn agreeable to admission. Cardiology on consult. (Keya Gray) I was available for consultation in the emergency department. The history and physical exam were done by the midlevel provider. I was consulted for this patients care. I reviewed the case with the midlevel provider and based on their presentation of the patient, I agree with the assessment, medical decision making and plan of care as documented. I discussed the case with Dr. Pollock who accepted admission Chart was dictated using [employer] dictation software. Attempts were made to correct any dictation errors however some typographical errors may persist. (Malena Christopher) - Lab Data Lab Results 11/02/19 11/02/19 11/02/19 Range/Units 15:13 15:13 15:13 WBC 7.3 (3.8-10.6) k/uL RBC 4.83 (4.30-5.90) m/uL Hgb 14.1 (13.0-17.5) gm/dL Hct 40.1 (39.0-53.0) % MCV 83.0 (80.0-100.0) fL MCH 29.2 (25.0-35.0) pg MCHC 35.1 (31.0-37.0) g/dL RDW 12.8 (11.5-15.5) % Plt Count 214 (150-450) k/uL Neutrophils % (Manual) 60 % Lymphocytes % (Manual) 36 % Monocytes % (Manual) 2 % Eosinophils % (Manual) 2 % Neutrophils # (Manual) 4.38 (1.3-7.7) k/uL Lymphocytes # (Manual) 2.63 (1.0-4.8) k/uL Monocytes # (Manual) 0.15 (0-1.0) k/uL Eosinophils # (Manual) 0.15 (0-0.7) k/uL Nucleated RBCs 0 (0-0) /100 WBC Manual Slide Review Performed Hyperchromasia Slight PT 9.9 (9.0-12.0) sec INR 0.9 (<1.2) APTT 22.5 (22.0-30.0) sec D-Dimer 0.25 (<0.60) mg/L FEU Sodium 135 L (137-145) mmol/L Potassium 4.7 (3.5-5.1) mmol/L Chloride 101 (98-107) mmol/L Carbon Dioxide 26 (22-30) mmol/L Anion Gap 8 mmol/L BUN 32 H (9-20) mg/dL Creatinine 1.83 H (0.66-1.25) mg/dL Est GFR (CKD-EPI)AfAm 49 (>60 ml/min/1.73 sqM) Est GFR (CKD-EPI)NonAf 43 (>60 ml/min/1.73 sqM) Glucose 278 H (74-99) mg/dL Calcium 9.4 (8.4-10.2) mg/dL Magnesium 1.9 (1.6-2.3) mg/dL Total Bilirubin 0.3 (0.2-1.3) mg/dL AST 18 (17-59) U/L ALT 22 (4-49) U/L Alkaline Phosphatase 81 (38-126) U/L Troponin I (0.000-0.034) ng/mL NT-Pro-B Natriuret Pep pg/mL Total Protein 6.7 (6.3-8.2) g/dL Albumin 3.8 (3.5-5.0) g/dL 11/02/19 11/02/19 Range/Units 15:13 15:13 WBC (3.8-10.6) k/uL RBC (4.30-5.90) m/uL Hgb (13.0-17.5) gm/dL Hct (39.0-53.0) % MCV (80.0-100.0) fL MCH (25.0-35.0) pg MCHC (31.0-37.0) g/dL RDW (11.5-15.5) % Plt Count (150-450) k/uL Neutrophils % (Manual) % Lymphocytes % (Manual) % Monocytes % (Manual) % Eosinophils % (Manual) % Neutrophils # (Manual) (1.3-7.7) k/uL Lymphocytes # (Manual) (1.0-4.8) k/uL Monocytes # (Manual) (0-1.0) k/uL Eosinophils # (Manual) (0-0.7) k/uL Nucleated RBCs (0-0) /100 WBC Manual Slide Review Hyperchromasia PT (9.0-12.0) sec INR (<1.2) APTT (22.0-30.0) sec D-Dimer (<0.60) mg/L FEU Sodium (137-145) mmol/L Potassium (3.5-5.1) mmol/L Chloride (98-107) mmol/L Carbon Dioxide (22-30) mmol/L Anion Gap mmol/L BUN (9-20) mg/dL Creatinine (0.66-1.25) mg/dL Est GFR (CKD-EPI)AfAm (>60 ml/min/1.73 sqM) Est GFR (CKD-EPI)NonAf (>60 ml/min/1.73 sqM) Glucose (74-99) mg/dL Calcium (8.4-10.2) mg/dL Magnesium (1.6-2.3) mg/dL Total Bilirubin (0.2-1.3) mg/dL AST (17-59) U/L ALT (4-49) U/L Alkaline Phosphatase (38-126) U/L Troponin I <0.012 (0.000-0.034) ng/mL NT-Pro-B Natriuret Pep 259 pg/mL Total Protein (6.3-8.2) g/dL Albumin (3.5-5.0) g/dL Disposition Is patient prescribed a controlled substance at d/c from ED?: No Time of Disposition: 16:21 Decision to Admit Reason: Admit from EC Decision Date: 11/02/19 Decision Time: 16:21 <Keya Gray - Last Filed: 11/03/19 16:20> <Malena Christopher - Last Filed: 11/03/19 23:04> Clinical Impression: NIXON (acute kidney injury), Chest pain, Lightheaded, Pre-syncope Disposition: ADMITTED IP TO THIS [facility] Condition: Serious
[2019-11-02] MEDS ORDERED: SODIUM CHLORIDE 0.9% 1,000 ML IV ONE (15:36)
--- NOTE | 2019-11-02 15:40 | XR ---
EXAMINATION TYPE: XR chest 2V DATE OF EXAM: 11/02/2019 COMPARISON: 12/21/2017 INDICATION: Chest pain TECHNIQUE: Frontal and lateral views of the chest are obtained. FINDINGS: The heart size is normal. The pulmonary vasculature is normal. The lungs are clear. IMPRESSION: 1. No acute pulmonary process.
[2019-11-02 15:45] LABS: HCT 40.1 % (39.0-53.0); HGB 14.1 gm/dL (13.0-17.5); Hyperchromasia Slight; MCH 29.2 pg (25.0-35.0); MCHC 35.1 g/dL (31.0-37.0); Mean Platelet Volume 9.8; Platelet Count 214 k/uL (150-450); RBC 4.83 m/uL (4.30-5.90); RDW 12.8 % (11.5-15.5); WBC 7.3 k/uL (3.8-10.6)
[2019-11-02 15:52] LABS: D-Dimer 0.25 mg/L FEU (<0.60); INR 0.9 (<1.2); Prothrombin Time 9.9 sec (9.0-12.0)
[2019-11-02] MEDS ORDERED: NITROGLYCERIN OINT 1 INCH/GM PACKET TOPICAL STA (15:55)
[2019-11-02 16:02] LABS: Eosinophils # (M) 0.15 k/uL (0-0.7); Lymphocytes # (M) 2.63 k/uL (1.0-4.8); Monocytes # (M) 0.15 k/uL (0-1.0); Neutrophils # (M) 4.38 k/uL (1.3-7.7); Neutrophils % (M) 60 %; Nucleated Red Blood Cells 0 /100 WBC (0-0); Total Cells Counted 100
[2019-11-02 16:04] LABS: Partial Thromboplastin Time 22.5 sec (22.0-30.0)
[2019-11-02] MEDS ORDERED: SODIUM CHLORIDE 0.9% 500 ML 500 ML IV ONE (16:25)
[2019-11-02] MEDS ORDERED: traZODone HCL 50 MG TAB PO PRN (17:47)
[2019-11-02 17:52] LABS: Glucose,Whole Blood 311 mg/dL (75-99)
[2019-11-02] MEDS ORDERED: INSULIN ASPART (NovoLOG) 100 UNIT/ML VIAL SQ ONE (18:08)
[2019-11-02] MEDS: SODIUM CHLORIDE 0.9% 1,000 ML IV SCH ×2 (18:09→20:32)
[2019-11-02 20:15] LABS: Glucose,Whole Blood 427 mg/dL (75-99)
[2019-11-02] MEDS: NITROGLYCERIN SL TABS 0.4 MG TAB SUBLINGUAL PRN (20:23)
[2019-11-02] MEDS: INSULIN ASPART (NovoLOG) 100 UNIT/ML VIAL SQ SCH (20:24)
[2019-11-02] MEDS ORDERED: ATORVASTATIN 20 MG TAB PO SCH (21:00)
[2019-11-02] MEDS ORDERED: INSULIN DETEMIR (LEVEMIR) 100 UNIT/ML SYR SQ SCH (21:00)
[2019-11-02] MEDS: GABAPENTIN 400 MG CAP PO SCH (22:09)
[2019-11-03 01:48] LABS: Glucose,Whole Blood 126 mg/dL (75-99)
[2019-11-03 03:17] LABS: Cholesterol 163 mg/dL (<200); HDL Cholesterol 28 mg/dL (40-60); LDL Cholesterol,Calculated 71 mg/dL (0-99); Triglycerides 321 mg/dL (<150)
[2019-11-03] MEDS: NITROGLYCERIN SL TABS 0.4 MG TAB SUBLINGUAL PRN (03:22)
[2019-11-03] MEDS: INSULIN ASPART (NovoLOG) 100 UNIT/ML VIAL SQ SCH ×4 (04:42→21:32)
[2019-11-03 05:47] LABS: Glucose,Whole Blood 132 mg/dL (75-99)
[2019-11-03] MEDS: SODIUM CHLORIDE 0.9% 1,000 ML IV SCH ×2 (06:51→11:20)
[2019-11-03] MEDS: GABAPENTIN 400 MG CAP PO SCH ×3 (08:33→21:32)
[2019-11-03] MEDS: DULoxetine HCL 30 MG CAPSULE.DR PO SCH (08:33)
[2019-11-03] MEDS ORDERED: ASPIRIN 325 MG TAB PO SCH (09:00)
[2019-11-03] MEDS ORDERED: ALBUTEROL NEBULIZED 2.5 MG/3 ML INHALATION PRN (10:57)
[2019-11-03] MEDS: PANTOPRAZOLE 40 MG/10 ML VIAL IVP SCH (11:08)
[2019-11-03] MEDS: LISINOPRIL 10 MG TAB PO SCH (11:20)
[2019-11-03 11:37] LABS: Glucose,Whole Blood 104 mg/dL (75-99)
--- NOTE | 2019-11-03 12:07 | P.HPIM ---
History of Present Illness 9-year-old male came in with complaints of retrosternal chest pain moderate pain has been going on for last 3-4 days nonradiating. denied lightheaded denied any nausea vomiting diarrhea denied any fever chills denied any cough no associated diaphoresis or shortness of breath.skin is nonpleuritic. Patient does have some mild vision problems secondary to diabetic retinopathy denies any significant visual loss. Review of Systems REVIEW OF SYSTEMS: CONSTITUTIONAL: No fever, no malaise, no fatigue. HEENT: No recent visual problems or hearing problems. Denied any sore throat. CARDIOVASCULAR: Noorthopnea, PND, no palpitations, no syncope. PULMONARY: No shortness of breath, no cough, no hemoptysis. GASTROINTESTINAL: No diarrhea, no nausea, no vomiting, no abdominal pain. NEUROLOGICAL: No headaches, no weakness, no numbness. HEMATOLOGICAL: Denies any bleeding or petechiae. GENITOURINARY: Denies any burning micturition, frequency, or urgency. MUSCULOSKELETAL/RHEUMATOLOGICAL: Denies any joint pain, swelling, or any muscle pain. ENDOCRINE: Denies any polyuria or polydipsia. The rest of the 14-point review of systems is negative. Past Medical History Past Medical History: Diabetes Mellitus, Hyperlipidemia Additional Past Medical History / Comment(s): IDDM type II, neuropathy bilateral feet, past scrotal cellulitis/L testicular abscess with surgery and back abscess with surgery. Patient had shingles a few months ago History of Any Multi-Drug Resistant Organisms: None Reported Past Surgical History: Cholecystectomy Additional Past Surgical History / Comment(s): I&D scrotal abscess, I&D back abscess Past Anesthesia/Blood Transfusion Reactions: No Reported Reaction Past Psychological History: Anxiety Additional Psychological History / Comment(s): Pt resides with his brother. He is independent. He works in [employer]. Smoking Status: Former smoker Past Alcohol Use History: Occasional Additional Past Alcohol Use History / Comment(s): Pt started smoking in 1987 and quit 2 weeks ago. Past Drug Use History: None Reported - Past Family History Mother Family Medical History: Diabetes Mellitus Father History Unknown: Yes Medications and Allergies Home Medications Medication Instructions Recorded Confirmed Type Ibuprofen [Motrin] 800 mg PO TID PRN 06/01/17 11/02/19 History Albuterol Inhaler [Ventolin Hfa 1 - 2 puff INHALATION RT-Q6H PRN 11/02/19 11/02/19 History Inhaler] DULoxetine HCL [Cymbalta] 60 mg PO DAILY 11/02/19 11/02/19 History Gabapentin 800 mg PO TID 11/02/19 11/02/19 History Insulin Glargine,Hum.rec.anlog 80 unit SQ HS 11/02/19 11/02/19 History [Basaglar Kwikpen U-100] Insulin Lispro [Admelog] See Protocol SQ AC-TID 11/02/19 11/02/19 History Rosuvastatin [Crestor] 10 mg PO HS 11/02/19 11/02/19 History metFORMIN HCL 1,000 mg PO BID 11/02/19 11/02/19 History traZODone HCL 50 - 100 mg PO HS PRN 11/02/19 11/02/19 History Allergies Allergy/AdvReac Type Severity Reaction Status Date / Time No Known Allergies Allergy Verified 11/02/19 15:26 Physical Exam Vitals: Vital Signs Temp Pulse Pulse Resp BP BP BP 11/03/19 11:18 97.7 F 82 18 139/75 11/03/19 08:00 98.1 F 84 18 140/79 11/03/19 04:00 82 16 11/03/19 03:45 82 11/03/19 03:34 83 89/53 11/03/19 03:29 83/53 11/03/19 03:22 127/76 11/03/19 03:18 97.3 F L 78 16 11/03/19 00:14 97.8 F 82 16 11/03/19 00:00 82 16 11/02/19 20:49 11/02/19 20:22 11/02/19 20:03 98.4 F 87 16 11/02/19 20:00 87 16 11/02/19 17:06 82 17 165/89 11/02/19 16:51 88 17 116/80 103/70 11/02/19 16:27 80 17 127/85 11/02/19 16:15 80 17 102/59 11/02/19 15:42 68 17 95/61 11/02/19 14:38 97.8 F 96 16 118/78 BP Pulse Ox 11/03/19 11:18 99 11/03/19 08:00 99 11/03/19 04:00 11/03/19 03:45 119/69 11/03/19 03:34 11/03/19 03:29 11/03/19 03:22 11/03/19 03:18 127/74 99 11/03/19 00:14 113/73 98 11/03/19 00:00 11/02/19 20:49 85/75 11/02/19 20:22 102/62 11/02/19 20:03 105/68 11/02/19 20:00 11/02/19 17:06 99 11/02/19 16:51 150/88 98 11/02/19 16:27 98 11/02/19 16:15 98 11/02/19 15:42 99 11/02/19 14:38 100 Intake and Output 11/02/19 11/03/19 11/03/19 22:59 06:59 14:59 Other: Voiding Method Toilet Toilet # Voids 1 Weight 87.09 kg 87.8 kg PHYSICAL EXAMINATION: GENERAL: The patient is alert and oriented x3, not in any acute distress. Well developed, well nourished. HEENT: Pupils are round and equally reacting to light. EOMI. No scleral icterus. No conjunctival pallor. Normocephalic, atraumatic. No pharyngeal erythema. No thyromegaly. CARDIOVASCULAR: S1 and S2 present. No murmurs, rubs, or gallops. PULMONARY: Chest is clear to auscultation, no wheezing or crackles. ABDOMEN: Soft, nontender, nondistended, normoactive bowel sounds. No palpable organomegaly. MUSCULOSKELETAL: No joint swelling or deformity. EXTREMITIES: No cyanosis, clubbing, or pedal edema. NEUROLOGICAL: Gross neurological examination did not reveal any focal deficits. SKIN: No rashes. Results CBC & Chem 7: 11/02/19 15:13 11/02/19 15:13 Labs: Abnormal Lab Results - Last 24 Hours (Table) 11/02/19 11/02/19 11/02/19 Range/Units 15:13 17:50 20:14 Sodium 135 L (137-145) mmol/L BUN 32 H (9-20) mg/dL Creatinine 1.83 H (0.66-1.25) mg/dL Glucose 278 H (74-99) mg/dL POC Glucose (mg/dL) 311 H 427 H (75-99) mg/dL Triglycerides (<150) mg/dL HDL Cholesterol (40-60) mg/dL 11/03/19 11/03/19 11/03/19 Range/Units 01:46 02:45 05:45 Sodium (137-145) mmol/L BUN (9-20) mg/dL Creatinine (0.66-1.25) mg/dL Glucose (74-99) mg/dL POC Glucose (mg/dL) 126 H 132 H (75-99) mg/dL Triglycerides 321 H (<150) mg/dL HDL Cholesterol 28 L (40-60) mg/dL 11/03/19 Range/Units 11:35 Sodium (137-145) mmol/L BUN (9-20) mg/dL Creatinine (0.66-1.25) mg/dL Glucose (74-99) mg/dL POC Glucose (mg/dL) 104 H (75-99) mg/dL Triglycerides (<150) mg/dL HDL Cholesterol (40-60) mg/dL Assessment and Plan Plan: chest pain: Rule out acute medicine syndromes patient has atypical chest pain patient may have some gastroesophageal reflux disease will use that pileup proton pump inhibitor has been his risk factors patient may need a stress test cardiology will evaluate the patient -diabetes mellitus unsure whether it's type I or type II patient does have diabetic retinopathy and peripheral neuropathy continue with his home regimen except for cutting down Lantus to 50 units tonight as patient will undergo stress test tomorrow continue his pre-meal insulin which he uses carb counting of believe -Depression -Hyperlipidemia -acute renal failure can be related to nonsteroidal anti-inflammatory his patient will be started on IV fluids will recheck the basic metabolic profile tomorrow patient had normal creatinine in the past nicotine abuse: Counseling was provided
--- NOTE | 2019-11-03 12:24 | P.CRDCN ---
History of Present Illness History of present illness: This is Mya Oconnor PA-C dictating a consult on this patient The patient was interviewed and examined by me as well as by Dr. Rodriguez Case discussed with Dr. Rodriguez and he agrees with the plan of care HPI Patient is a 49-year-old male with a past medical history of type 1 diabetes and dyslipidemia who presented with complaints of chest discomfort and presyncope. 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 He recently had laser eye surgery on the right eye on . On Monday he was in his normal state of health in his vision normal. He is eating and drinking normally. Patient states he woke up yesterday and felt very dizzy" woozy" and had a hard time seeing. He walked into the kitchen and he had a warm sensation come over his body. He felt like he was going to pass out but he didn't. No palpitations. He also started to feel" indigestion" in the center of his chest accompanied by a left sided sharp stabbing pain. The pain was worse when he took a deep breath. He felt short of breath and nauseated. No vomiting or diarrhea. He has had symptoms like this one time before about a year ago. The symptoms occurred while he was at work he was also vomiting. He did go to the hospital at that time and was diagnosed with dehydration. Patient came into the hospital for further evaluation. Upon presentation his pulse was 96 and his blood pressure is 118/78. EKG shows sinus mechanism without any acute ST or T-wave abnormalities. Chest x-ray showed no acute process. He received nitroglycerin without any relief. Labs demonstrated BUN 32, creatinine 1.83. Troponins negative 3. Patient seen and examined sitting in his chair. He continues to have chest discomfort this morning. Repeat EKG this again does not demonstrate any abnormalities. He is a former smoker and just quit a few days ago Drinks alcohol socially Denies any known family history of heart disease ROS: No fevers, chills or rigors, no cough, phlegm or expectoration, Positive for nausea, no vomiting or diarrhea, no hematuria, dysuria, Positive for peripheral neuropathy no strokes or seizures, no skin lesions. EXAMINATION: Patient is afebrile, pulse 80, respirations 18, blood pressure 139/75, oxygen saturation 99% on room air Patient seen and examined sitting in his chair, does not appear to be in any acute distress Lungs are clear to auscultation bilaterally Heart is regular, no audible murmurs Carotid bruit present on the left No elevated JVD No lower extremity edema REVIEW OF LABS, ECG & MEDICAL DATA WBC 7.3, hemoglobin 14.1, platelets 214, potassium 4.7, BUN 32, creatinine 1.83 Troponin negative 3 LDL 71 IMPRESSION / ASSESSMENT: Atypical chest discomfort, sharp and pleuritic in nature and associated with indigestion, no acute EKG changes, troponin negative 3 likely musculoskeletal or GI related however the patient does have risk factors, he is a diabetic and former smoker Presyncope with associated warm sensation and nausea,possibly vasovagal Type I diabetic Former smoker, just quit a few days ago Dyslipidemia PLAN: Dobutamine stress echo tomorrow, he cannot walk due to his peripheral neuropathy Increase statin dose, start Atorvastatin 40 mg daily Start Lisinopril 10 mg daily monitor BMP Monitor telemetry for arrhythmias Further evaluation of carotid bruit can be done as an outpatient Past Medical History Past Medical History: Diabetes Mellitus, Hyperlipidemia Additional Past Medical History / Comment(s): IDDM type II, neuropathy bilateral feet, past scrotal cellulitis/L testicular abscess with surgery and back abscess with surgery. Patient had shingles a few months ago History of Any Multi-Drug Resistant Organisms: None Reported Past Surgical History: Cholecystectomy Additional Past Surgical History / Comment(s): I&D scrotal abscess, I&D back abscess Past Anesthesia/Blood Transfusion Reactions: No Reported Reaction Past Psychological History: Anxiety Additional Psychological History / Comment(s): Pt resides with his brother. He is independent. He works in [employer]. Smoking Status: Former smoker Past Alcohol Use History: Occasional Additional Past Alcohol Use History / Comment(s): Pt started smoking in 1987 and quit 2 weeks ago. Past Drug Use History: None Reported - Past Family History Mother Family Medical History: Diabetes Mellitus Father History Unknown: Yes Medications and Allergies Home Medications Medication Instructions Recorded Confirmed Type Ibuprofen [Motrin] 800 mg PO TID PRN 06/01/17 11/02/19 History Albuterol Inhaler [Ventolin Hfa 1 - 2 puff INHALATION RT-Q6H PRN 11/02/19 11/02/19 History Inhaler] DULoxetine HCL [Cymbalta] 60 mg PO DAILY 11/02/19 11/02/19 History Gabapentin 800 mg PO TID 11/02/19 11/02/19 History Insulin Glargine,Hum.rec.anlog 80 unit SQ HS 11/02/19 11/02/19 History [Basaglar Kwikpen U-100] Insulin Lispro [Admelog] See Protocol SQ AC-TID 11/02/19 11/02/19 History Rosuvastatin [Crestor] 10 mg PO HS 11/02/19 11/02/19 History metFORMIN HCL 1,000 mg PO BID 11/02/19 11/02/19 History traZODone HCL 50 - 100 mg PO HS PRN 11/02/19 11/02/19 History Allergies Allergy/AdvReac Type Severity Reaction Status Date / Time No Known Allergies Allergy Verified 11/02/19 15:26 Physical Exam Vitals: Vital Signs Temp Pulse Pulse Resp BP BP BP 11/03/19 11:18 97.7 F 82 18 139/75 11/03/19 08:00 98.1 F 84 18 140/79 11/03/19 04:00 82 16 11/03/19 03:45 82 11/03/19 03:34 83 89/53 11/03/19 03:29 83/53 11/03/19 03:22 127/76 11/03/19 03:18 97.3 F L 78 16 11/03/19 00:14 97.8 F 82 16 11/03/19 00:00 82 16 11/02/19 20:49 11/02/19 20:22 11/02/19 20:03 98.4 F 87 16 11/02/19 20:00 87 16 11/02/19 17:06 82 17 165/89 11/02/19 16:51 88 17 116/80 103/70 11/02/19 16:27 80 17 127/85 11/02/19 16:15 80 17 102/59 11/02/19 15:42 68 17 95/61 11/02/19 14:38 97.8 F 96 16 118/78 BP Pulse Ox 11/03/19 11:18 99 11/03/19 08:00 99 11/03/19 04:00 11/03/19 03:45 119/69 11/03/19 03:34 11/03/19 03:29 11/03/19 03:22 11/03/19 03:18 127/74 99 11/03/19 00:14 113/73 98 11/03/19 00:00 11/02/19 20:49 85/75 11/02/19 20:22 102/62 11/02/19 20:03 105/68 11/02/19 20:00 11/02/19 17:06 99 11/02/19 16:51 150/88 98 11/02/19 16:27 98 11/02/19 16:15 98 11/02/19 15:42 99 11/02/19 14:38 100 Intake and Output 11/02/19 11/03/19 11/03/19 22:59 06:59 14:59 Other: Voiding Method Toilet Toilet # Voids 1 Weight 87.09 kg 87.8 kg Results 11/02/19 15:13 11/02/19 15:13 Cardiac Enzymes 11/02/19 11/02/19 11/02/19 Range/Units 15:13 15:13 20:26 AST 18 (17-59) U/L Troponin I <0.012 <0.012 (0.000-0.034) ng/mL 11/03/19 Range/Units 02:45 AST (17-59) U/L Troponin I <0.012 (0.000-0.034) ng/mL Coagulation 11/02/19 Range/Units 15:13 PT 9.9 (9.0-12.0) sec APTT 22.5 (22.0-30.0) sec Lipids 11/03/19 Range/Units 02:45 Triglycerides 321 H (<150) mg/dL Cholesterol 163 (<200) mg/dL HDL Cholesterol 28 L (40-60) mg/dL CBC 11/02/19 Range/Units 15:13 WBC 7.3 (3.8-10.6) k/uL RBC 4.83 (4.30-5.90) m/uL Hgb 14.1 (13.0-17.5) gm/dL Hct 40.1 (39.0-53.0) % Plt Count 214 (150-450) k/uL Comprehensive Metabolic Panel 11/02/19 Range/Units 15:13 Sodium 135 L (137-145) mmol/L Potassium 4.7 (3.5-5.1) mmol/L Chloride 101 (98-107) mmol/L Carbon Dioxide 26 (22-30) mmol/L BUN 32 H (9-20) mg/dL Creatinine 1.83 H (0.66-1.25) mg/dL Glucose 278 H (74-99) mg/dL Calcium 9.4 (8.4-10.2) mg/dL AST 18 (17-59) U/L ALT 22 (4-49) U/L Alkaline Phosphatase 81 (38-126) U/L Total Protein 6.7 (6.3-8.2) g/dL Albumin 3.8 (3.5-5.0) g/dL Current Medications Generic Name Dose Route Start Last Admin Trade Name Freq PRN Reason Stop Dose Admin Albuterol Sulfate 2.5 mg 11/03/19 10:57 Ventolin Nebulized INHALATION RT-Q6H PRN Shortness Of Breath Aspirin 81 mg 11/04/19 09:00 Aspirin PO DAILY [facility] Atorvastatin Calcium 40 mg 11/03/19 21:00 Lipitor PO HS [facility] Duloxetine HCl 30 mg 11/03/19 09:00 11/03/19 08:33 Cymbalta PO 30 mg DAILY [facility] Administration Gabapentin 400 mg 11/02/19 22:00 11/03/19 08:33 Neurontin PO 400 mg TID [facility] Administration Sodium Chloride 1,000 mls @ 130 mls/hr 11/02/19 16:30 11/03/19 11:20 Saline 0.9% IV Not Given .Q7H42M [facility] Dobutamine HCl/Dextrose 500 mg 250 mls @ 26.34 mls/hr 11/04/19 09:00 / IV Solution IV 11/04/19 18:29 .Q9H30M ONE Protocol 10 MCG/KG/MIN Insulin Aspart 0 unit 11/02/19 21:00 11/03/19 11:08 Novolog SQ Not Given ACHS [facility] Protocol Insulin Detemir 50 unit 11/03/19 21:00 Levemir SQ HS [facility] Lisinopril 10 mg 11/03/19 11:15 11/03/19 11:20 Zestril PO 10 mg DAILY [facility] Administration Nitroglycerin 0.4 mg 11/02/19 16:19 11/03/19 03:22 Nitrostat SUBLINGUAL 0.4 mg Q5M PRN Administration Chest Pain Pantoprazole Sodium 40 mg 11/03/19 11:00 11/03/19 11:08 Protonix IVP 40 mg DAILY [facility] Administration Trazodone HCl 50 mg 11/02/19 17:47 Desyrel PO HS PRN Insomnia Intake and Output 11/02/19 11/03/19 11/03/19 22:59 06:59 14:59 Other: Voiding Method Toilet Toilet # Voids 1 Weight 87.09 kg 87.8 kg 11/02/19 15:13 11/02/19 15:13
[2019-11-03] MEDS ORDERED: ONDANSETRON 4 MG/2 ML VIAL ONE (13:51)
[2019-11-03 16:39] LABS: Glucose,Whole Blood 209 mg/dL (75-99)
[2019-11-03 20:35] LABS: Glucose,Whole Blood 270 mg/dL (75-99)
[2019-11-03] MEDS: ATORVASTATIN 40 MG TAB PO SCH (21:32)
[2019-11-03] MEDS: INSULIN DETEMIR (LEVEMIR) 100 UNIT/ML SYR SQ SCH (21:32)
[2019-11-03] MEDS: ACETAMINOPHEN TAB 325 MG TAB PO PRN (21:33)
[2019-11-03] MEDS: ONDANSETRON 4 MG/2 ML VIAL IVP PRN (21:38)
[2019-11-04 04:02] VITALS: RESP 18
[2019-11-04 06:04] LABS: Glucose,Whole Blood 141 mg/dL (75-99)
[2019-11-04] MEDS: INSULIN ASPART (NovoLOG) 100 UNIT/ML VIAL SQ SCH ×4 (06:05→20:55)
[2019-11-04] MEDS: SODIUM CHLORIDE 0.9% 1,000 ML IV SCH ×3 (06:06→17:46)
[2019-11-04 06:41] LABS: African American GFR (CKD) >90 (>60 ml/min/1.73 sqM); Anion Gap 3 mmol/L; Blood Urea Nitrogen 23 mg/dL (9-20); Calcium 8.4 mg/dL (8.4-10.2); Carbon Dioxide 28 mmol/L (22-30); Chloride 106 mmol/L (98-107); Glucose 94 mg/dL (74-99); Non-African American GFR(CKD) >90 (>60 ml/min/1.73 sqM); Potassium 4.5 mmol/L (3.5-5.1); Sodium 137 mmol/L (137-145)
[2019-11-04] MEDS ORDERED: DOBUTamine DRIP for NUC MED 500 MG in DEXTROSE/WATER 1 250ML.BAG IV ONE (09:00)
[2019-11-04 09:09] LABS: Glucose,Whole Blood 89 mg/dL (75-99)
--- NOTE | 2019-11-04 10:55 | P.DS ---
Providers Date of admission: 11/02/19 16:19 Attending physician: Pasquale Pollock Consults: 11/02/19 16:19 Consult Physician Urgent Consulting Provider: Wilton Medrano Consult Reason/Comments: presyncope, chest pain Do you want consulting provider notified?: Yes Primary care physician: Meet Erazo [facility] Course: patient is admitted for near syncope lightheadedness and blurry vision secondary to near-syncope patient has positive orthostatic vitals which are improving at this time lisinopril will be discontinued which was started here eventually he will need lisinopril since he has lightheadedness, I'll discontinue his lisinopril patient will also complaining of atypical chest pain considering his risk factors patient will go for a stress test if that's negative patient will be discharged today his blood pressure is actually better today. Serum sodium and serum creatinine improved renal failure resolved. PHYSICAL EXAMINATION: GENERAL: The patient is alert and oriented x3, not in any acute distress. Well developed, well nourished. HEENT: Pupils are round and equally reacting to light. EOMI. No scleral icterus. No conjunctival pallor. Normocephalic, atraumatic. No pharyngeal erythema. No thyromegaly. CARDIOVASCULAR: S1 and S2 present. No murmurs, rubs, or gallops. PULMONARY: Chest is clear to auscultation, no wheezing or crackles. ABDOMEN: Soft, nontender, nondistended, normoactive bowel sounds. No palpable organomegaly. MUSCULOSKELETAL: No joint swelling or deformity. EXTREMITIES: No cyanosis, clubbing, or pedal edema. NEUROLOGICAL: Gross neurological examination did not reveal any focal deficits. SKIN: No rashes. Assessment and Plan Plan: chest pain: Ruled out acutecoronary syndromes syndromes patient has atypical c hest pain patient may have some gastroesophageal reflux diseaseare peptic ulcer disease for which patient will be discharged on Prilosec patient will undergo stress test today this negative patient will be discharged -presyncopeand blood revision secondary to presyncope symptoms improved patient has positive orthostatic vitals his creatinine improved with IV fluids patient received IV fluids during this hospitalization patient is still complaining of mild lightheadedness which I'm expecting to improve -diabetes mellitus unsure whether it's type I or type II patient does have diabetic retinopathy and peripheral neuropathy , patient will resume on his home regimen of insulin -Depression -Hyperlipidemia -acute renal failureprerenal azotemia secondary to intravascular well and patient there may be a contribution from nonsteroidal anti-inflammatory is renal failure resolved creatinine improved -Mild hyponatremia which is hypovolemic hyponatremia improved with IV fluids. nicotine abuse: Counseling was provided Patient Condition at Discharge: Serious Plan - Discharge Summary New Discharge Prescriptions: New Aspirin 81 mg PO DAILY #30 chew Omeprazole [PriLOSEC] 40 mg PO AC-BRKFST #14 capsule.dr Enrique traZODone HCL 50 - 100 mg PO HS PRN PRN Reason: Insomnia metFORMIN HCL 1,000 mg PO BID Rosuvastatin [Crestor] 10 mg PO HS Gabapentin 800 mg PO TID Insulin Glargine,Hum.rec.anlog [Basaglar Kwikpen U-100] 80 unit SQ HS DULoxetine HCL [Cymbalta] 60 mg PO DAILY Albuterol Inhaler [Ventolin Hfa Inhaler] 1 - 2 puff INHALATION RT-Q6H PRN PRN Reason: Shortness Of Breath Insulin Lispro [Admelog] See Protocol SQ AC-TID Discontinued Ibuprofen [Motrin] 800 mg PO TID PRN PRN Reason: Pain Discharge Medication List Albuterol Inhaler [Ventolin Hfa Inhaler] 1 - 2 puff INHALATION RT-Q6H PRN 11/02/19 [History] DULoxetine HCL [Cymbalta] 60 mg PO DAILY 11/02/19 [History] Gabapentin 800 mg PO TID 11/02/19 [History] Insulin Glargine,Hum.rec.anlog [Basaglar Kwikpen U-100] 80 unit SQ HS 11/02/19 [History] Insulin Lispro [Admelog] See Protocol SQ AC-TID 11/02/19 [History] Rosuvastatin [Crestor] 10 mg PO HS 11/02/19 [History] metFORMIN HCL 1,000 mg PO BID 11/02/19 [History] traZODone HCL 50 - 100 mg PO HS PRN 11/02/19 [History] Aspirin 81 mg PO DAILY #30 chew 11/04/19 [Rx] Omeprazole [PriLOSEC] 40 mg PO AC-BRKFST #14 capsule. 11/04/19 [Rx] Follow up Appointment(s)/Referral(s): Charles Rodriguez MD [STAFF PHYSICIAN] - 1 Week Meet Fontanez DO [Primary Care Provider] - 3 Days Discharge Disposition: HOME SELF-CARE
[2019-11-04] MEDS ORDERED: LISINOPRIL 10 MG TAB PO SCH (11:11)
[2019-11-04 11:27] LABS: Hemoglobin A1C 11.8 % (4.0-6.0)
[2019-11-04 11:55] LABS: Glucose,Whole Blood 112 mg/dL (75-99)
[2019-11-04] MEDS: ASPIRIN 81 MG PO SCH (12:21)
[2019-11-04] MEDS: DULoxetine HCL 30 MG CAPSULE.DR PO SCH (12:21)
[2019-11-04] MEDS: GABAPENTIN 400 MG CAP PO SCH ×3 (12:21→20:56)
[2019-11-04] MEDS: PANTOPRAZOLE 40 MG/10 ML VIAL IVP SCH (12:22)
[2019-11-04] MEDS: LISINOPRIL 10 MG TAB PO SCH (13:18)
--- NOTE | 2019-11-04 13:22 | ECHOS ---
STRESS ECHOCARDIOGRAM DATE OF SERVICE: 11/04/2019 INDICATIONS: Chest pain. MEDICATIONS: BASELINE HEART RATE: 80 BASELINE BLOOD PRESSURE: 153/85 MAXIMUM HEART RATE: 147 MAXIMUM BLOOD PRESSURE: 204/27 85% MPHR: 146 100% MPHR: 172 METS: MAXIMUM STAGE REACHED: TOTAL EXERCISE TIME: CLINICAL INFORMATION: The patient was given dobutamine infusion according to the standard protocol. Peak heart rate of 147 was achieved. Maximum blood pressure of 204/27 mmHg was noted. Resting EKG shows normal sinus rhythm with normal [place] interval and QRS duration and normal ST-T waves. During dobutamine infusion, no ST-segment depression suggestive of ischemia is noted. The baseline echocardiographic images reveals a normal left ventricular chamber size with normal left ventricular systolic function. At the peak dose of dobutamine infusion, normal increase in the wall thickness and contractility is noted. FINAL IMPRESSION: 1. This dobutamine stress echocardiographic study is negative for stress-induced ischemia. 2. EKG portion of the stress test is not suggestive of ischemia. MMODL / IJN: [id number] /
--- NOTE | 2019-11-04 14:36 | P.PN ---
Subjective Progress Note Date: 11/04/19 This is a 49-year-old gentleman with past medical history significant for diabetes, hyperlipidemia, who presented with symptoms of chest discomfort and syncope. He was seen in consultation by Dr. Hamilton and recommended today to undergo a dobutamine echocardiographic study. Dobutamine echocardiographic study was negative for stress-induced ischemia. Patient did have mild drop in blood pressure from sitting to standing position, he's been encouraged to increase his salt intake. Hemodynamically stable. Sodium 137, potassium 4.5, BUN 23, creatinine 0.9. Objective - Vital Signs Vital signs: Vital Signs Temp 98.0 F 11/04/19 08:30 Pulse 87 11/04/19 08:35 Resp 18 11/04/19 08:35 BP 135/80 11/04/19 08:35 Pulse Ox 99 11/04/19 08:35 Intake & Output 11/03/19 11/04/19 11/04/19 18:59 06:59 18:59 Intake Total 420 Balance 420 Weight 89 kg 89 kg Intake: Oral 420 Other: Voiding Method Toilet # Voids 2 1 - Exam Patient is afebrile, pulse 80, respirations 18, blood pressure 139/75, oxygen saturation 99% on room air Patient seen and examined sitting in his chair, does not appear to be in any acute distress Lungs are clear to auscultation bilaterally Heart is regular, no audible murmurs Carotid bruit present on the left No elevated JVD No lower extremity edema - Labs CBC & Chem 7: 11/02/19 15:13 11/04/19 05:44 Labs: Abnormal Lab Results - Last 24 Hours (Table) 11/03/19 11/03/19 11/03/19 Range/Units 02:45 16:37 20:34 BUN (9-20) mg/dL POC Glucose (mg/dL) 209 H 270 H (75-99) mg/dL Hemoglobin A1c 11.8 H (4.0-6.0) % 11/04/19 11/04/19 11/04/19 Range/Units 05:44 06:03 11:53 BUN 23 H (9-20) mg/dL POC Glucose (mg/dL) 141 H 112 H (75-99) mg/dL Hemoglobin A1c (4.0-6.0) % Assessment and Plan Plan: IMPRESSION / ASSESSMENT: #1Atypical chest discomfort, sharp and pleuritic in nature and associated with indigestion, no acute EKG changes, troponin negative 3 likely musculoskeletal or GI related however the patient does have risk factors, he is a diabetic and former smoker #2Presyncope with associated warm sensation and nausea,possibly vasovagal #3Type I diabetic #4Former smoker, just quit a few days ago #5Dyslipidemia Plan Dobutamine echocardiographic study negative for any reversible ischemia. From our perspective he may be able to be discharged home today. We will make him a follow-up appointment in the office post discharge. DNP note has been reviewed, I agree with a documented findings and plan of care. Patient was seen and examined.
[2019-11-04] MEDS: NITROGLYCERIN SL TABS 0.4 MG TAB SUBLINGUAL PRN (14:40)
[2019-11-04 15:38] VITALS: BMI 30.7
[2019-11-04 16:32] LABS: Glucose,Whole Blood 218 mg/dL (75-99)
[2019-11-04 20:48] LABS: Glucose,Whole Blood 309 mg/dL (75-99)
[2019-11-04] MEDS: ATORVASTATIN 40 MG TAB PO SCH (20:55)
[2019-11-04] MEDS: ONDANSETRON 4 MG/2 ML VIAL IVP PRN (20:55)
[2019-11-04] MEDS: INSULIN DETEMIR (LEVEMIR) 100 UNIT/ML SYR SQ SCH (20:55)
[2019-11-04] MEDS: ACETAMINOPHEN TAB 325 MG TAB PO PRN (21:02)
[2019-11-05 04:50] LABS: Glucose,Whole Blood 84 mg/dL (75-99)
[2019-11-05 06:06] LABS: Glucose,Whole Blood 159 mg/dL (75-99)
[2019-11-05] MEDS: SODIUM CHLORIDE 0.9% 1,000 ML IV SCH ×2 (06:37→06:38)
[2019-11-05] MEDS: INSULIN ASPART (NovoLOG) 100 UNIT/ML VIAL SQ SCH (06:37)
[2019-11-05] MEDS ORDERED: PANTOPRAZOLE 40 MG TABLET PO SCH (07:30)
[2019-11-05] MEDS: GABAPENTIN 400 MG CAP PO SCH (08:44)
[2019-11-05] MEDS: DULoxetine HCL 30 MG CAPSULE.DR PO SCH (08:44)
[2019-11-05] MEDS: ASPIRIN 81 MG PO SCH (08:44)
[2019-11-05 08:49] VITALS: BP 109/75; PULSE 90; TEMP 98.9
[2019-11-05 11:30] LABS: Glucose,Whole Blood 170 mg/dL (75-99)
--- NOTE | 2019-11-05 12:40 | CT ---
EXAMINATION TYPE: CT angio chest DATE OF EXAM: 11/05/2019 COMPARISON: 12/21/2017 HISTORY: chest pain CT DLP: 496.1 mGycm. Automated Exposure Control for Dose Reduction was Utilized. CONTRAST: CTA scan of the thorax is performed with IV Contrast, patient injected with 100 mL of Isovue 370, pul monary embolism protocol. MIP Images are created on CT scanner and reviewed. FINDINGS: LUNGS: The lungs are grossly clear, there is no concerning parenchymal mass or nodule identified. T here is no pleural effusion or pneumothorax seen. The tracheobronchial tree is patent. MEDIASTINUM: There is satisfactory enhancement of the pulmonary artery and its branches, there is no CT evidence for pulmonary embolism. There are no greater than 1 cm hilar or mediastinal lymph nodes. Although there is limited evaluation for coronary calcifications given the phase of contrast no alli s evidence of coronary artery calcification seen. Incidentally noted normal variant bovine aortic ar ch. No cardiomegaly or pericardial effusion is seen. Aortic root and ascending thoracic aorta are wit hin normal limits measuring 3.0 and 3.5 cm respectively. No gross evidence of thoracic aortic dissect ion seen. OTHER: Minimal bilateral retroareolar symmetric probable gynecomastia. Gallbladder surgically absent. IMPRESSION: No evidence of pulmonary embolus or thoracic aortic aneurysm. No gross evidence of thorac ic aortic dissection.
--- NOTE | 2019-11-05 13:04 | P.DS ---
Providers Date of admission: 11/02/19 16:19 Expected date of discharge: 11/05/19 Attending physician: Pasquale Pollock Consults: 11/02/19 16:19 Consult Physician Urgent Consulting Provider: Wilton Medrano Consult Reason/Comments: presyncope, chest pain Do you want consulting provider notified?: Yes Primary care physician: Meet Fontanez [facility] Course: Final diagnosis -chest pain: Ruled out acute coronary syndromes -presyncope -diabetes mellitus -Depression -Hyperlipidemia -acute renal failure prerenal azotemia secondary to intravascular depletion -Mild hyponatremia which is hypovolemic hyponatremia -nicotine abuse Discharge disposition Patient is being discharged in a stable condition with guarded prognosis to home and will follow-up with Dr. Meet Fontanez upon discharge. Patient will also follow-up with Dr. Jennifer garcia in the outpatient setting as well. Patient will continue on a baby aspirin daily along with Prilosec 40 mg daily for the next 2 weeks. Total time taken is 35 minutes. History of present illness This is a 49-year-old male who was recently admitted for syncope, lightheadedness, blurry vision secondary to a near syncopal episode who had positive orthostatic vitals and was being closely monitored. Patient was also found to have some chest pain and underwent a stress test during hospitalization which was negative. Patient had some elevated blood pressure readings and was taking lisinopril but will be discontinued until follow-up with primary care provider. During hospitalization patient also underwent CTA of the chest which was negative for any pulmonary embolism. Patient states he is staying in [place] with his aunt and uncle and her caring for them as they are sick and would like resources for closer PCP as his current PCP is in [place]. Resources will be provided. Currently patient has no reports of chest pain, shortness of breath, or palpitations. Patient is afebrile. No reports of nausea vomiting and patient is tolerating diet. Patient will continue with Prilosec 40 mg daily for the next 2 weeks and also with a baby aspirin. Patient will follow-up with cardiology in the outpatient setting as discussed and scheduled. Currently patient's condition is stable and is ready for discharge today. On exam vital signs are stable. Temp is 98.9F, pulse is 90, respirations are 16, blood pressure is 109/75, oxygen saturation is 98% on room air. Cardio S1, S2 are present. Respiratory system is clear to auscultation. Abdomen is soft and nontender. Nervous system shows no focal deficits. Please refer to medication reconciliation sheet for a list of medications. Patient Condition at Discharge: Stable Plan - Discharge Summary New Discharge Prescriptions: New Aspirin 81 mg PO DAILY #30 chew Omeprazole [PriLOSEC] 40 mg PO AC-BRKFST #14 capsule. Nitroglycerin Sl Tabs [Nitrostat] 0.4 mg SUBLINGUAL Q5M PRN #30 tab PRN Reason: Chest Pain Continue traZODone HCL 50 - 100 mg PO HS PRN PRN Reason: Insomnia metFORMIN HCL 1,000 mg PO BID Rosuvastatin [Crestor] 10 mg PO HS Gabapentin 800 mg PO TID Insulin Glargine,Hum.rec.anlog [Basaglar Kwikpen U-100] 80 unit SQ HS DULoxetine HCL [Cymbalta] 60 mg PO DAILY Albuterol Inhaler [Ventolin Hfa Inhaler] 1 - 2 puff INHALATION RT-Q6H PRN PRN Reason: Shortness Of Breath Insulin Lispro [Admelog] See Protocol SQ AC-TID Discontinued Ibuprofen [Motrin] 800 mg PO TID PRN PRN Reason: Pain Discharge Medication List Albuterol Inhaler [Ventolin Hfa Inhaler] 1 - 2 puff INHALATION RT-Q6H PRN 11/02/19 [History] DULoxetine HCL [Cymbalta] 60 mg PO DAILY 11/02/19 [History] Gabapentin 800 mg PO TID 11/02/19 [History] Insulin Glargine,Hum.rec.anlog [Basaglar Kwikpen U-100] 80 unit SQ HS 11/02/19 [History] Insulin Lispro [Admelog] See Protocol SQ AC-TID 11/02/19 [History] Rosuvastatin [Crestor] 10 mg PO HS 11/02/19 [History] metFORMIN HCL 1,000 mg PO BID 11/02/19 [History] traZODone HCL 50 - 100 mg PO HS PRN 11/02/19 [History] Aspirin 81 mg PO DAILY #30 chew 11/04/19 [Rx] Omeprazole [PriLOSEC] 40 mg PO AC-BRKFST #14 capsule. 11/04/19 [Rx] Nitroglycerin Sl Tabs [Nitrostat] 0.4 mg SUBLINGUAL Q5M PRN #30 tab 11/05/19 [Rx] Follow up Appointment(s)/Referral(s): Meet Fontanez DO [Primary Care Provider] - 11/07/19 8:30 am () Viola Heath MD [STAFF PHYSICIAN] - 1 Week Alfredo Dickson MD [STAFF PHYSICIAN] - 11/12/19 9:00 am (Monday) Patient Instructions/Handouts: Chest Pain (DC) Activity/Diet/Wound Care/Special Instructions: activity limited until follow up follow up with primary care provider upon discharge please provide number to Dr. Patience Heath for possible establishment for closer pcp follow up with cardiology continue current diet Discharge Disposition: HOME SELF-CARE
--- NOTE | 2019-11-05 13:51 | P.PN ---
Subjective Progress Note Date: 11/05/19 This is a 49-year-old gentleman with past medical history significant for diabetes, hyperlipidemia, who presented with symptoms of chest discomfort and syncope. He was seen in consultation by Dr. Hamilton and recommended today to undergo a dobutamine echocardiographic study. Dobutamine echocardiographic study was negative for stress-induced ischemia. Patient did have mild drop in blood pressure from sitting to standing position, he's been encouraged to increase his salt intake. Hemodynamically stable. Sodium 137, potassium 4.5, BUN 23, creatinine 0.9. 11/05/2019 Patient seen and examined this morning, denies any further chest pain, ambulating in the hallway without any difficulty. Hemodynamically stable. Objective - Vital Signs Vital signs: Vital Signs Temp 98.9 F 11/05/19 08:00 Pulse 90 11/05/19 08:00 Resp 18 11/05/19 08:00 BP 109/75 11/05/19 08:00 Pulse Ox 98 11/05/19 08:00 Intake & Output 11/04/19 11/05/19 11/05/19 18:59 06:59 18:59 Intake Total 236 480 Balance 236 480 Weight 89 kg 88.5 kg Intake: Oral 236 480 Other: Voiding Method Toilet Toilet Toilet # Voids 2 - Exam Patient is afebrile, pulse 80, respirations 18, blood pressure 139/75, oxygen saturation 99% on room air Patient seen and examined sitting in his chair, does not appear to be in any acute distress Lungs are clear to auscultation bilaterally Heart is regular, no audible murmurs Carotid bruit present on the left No elevated JVD No lower extremity edema - Labs CBC & Chem 7: 11/02/19 15:13 11/04/19 05:44 Labs: Abnormal Lab Results - Last 24 Hours (Table) 11/04/19 11/04/19 11/05/19 Range/Units 16:30 20:46 06:05 POC Glucose (mg/dL) 218 H 309 H 159 H (75-99) mg/dL 11/05/19 Range/Units 11:29 POC Glucose (mg/dL) 170 H (75-99) mg/dL Assessment and Plan Plan: IMPRESSION / ASSESSMENT: #1Atypical chest discomfort, sharp and pleuritic in nature and associated with indigestion, no acute EKG changes, troponin negative 3 likely musculoskeletal or GI related however the patient does have risk factors, he is a diabetic and former smoker #2Presyncope with associated warm sensation and nausea,possibly vasovagal #3Type I diabetic #4Former smoker, just quit a few days ago #5Dyslipidemia Plan Dobutamine echocardiographic study negative for any reversible ischemia. From our perspective he may be able to be discharged home today. We will make him a follow-up appointment in the office post discharge. DNP note has been reviewed, I agree with a documented findings and plan of care. Patient was seen and examined.
== END 2019-11-05 12:55 | disposition home or self-care (01) ==
LOC: EC 14:36 → 3SCARD 16:19
PROVIDERS: ADMIT Internal Medicine; ATTEND Internal Medicine
DX: R07.89 Other chest pain (principal); R55 Syncope and collapse; E10.319 Type 1 diabetes mellitus with unspecified diabetic retinopathy without macular edema; F32.9 Major depressive disorder, single episode, unspecified; E78.5 Hyperlipidemia, unspecified; E10.22 Type 1 diabetes mellitus with diabetic chronic kidney disease; N17.9 Acute kidney failure, unspecified; G62.9 Polyneuropathy, unspecified; Z79.4 Long term (current) use of insulin; N45.4 Abscess of epididymis or testis; F41.9 Anxiety disorder, unspecified; L02.212 Cutaneous abscess of back [any part, except buttock and flank]; Z87.891 Personal history of nicotine dependence; Z79.1 Long term (current) use of non-steroidal anti-inflammatories (NSAID); Z79.899 Other long term (current) drug therapy; Z79.51 Long term (current) use of inhaled steroids; Z83.3 Family history of diabetes mellitus; E87.1 Hypo-osmolality and hyponatremia; E86.1 Hypovolemia; R79.89 Other specified abnormal findings of blood chemistry
CPT/HCPCS: 96376; 96361 ×2; 96374; 96375; 93005 ×3; 99285; 36415; 93351; 85379; 83880; 80061; 80053; 80048; 83735; 84484 ×2; 85025; 85610; 85730; 87502; 83036; 71046; 71275; G0378 ×4; J1250; J2405 ×2; C9113 ×2; Q9967

== ENCOUNTER 2020-01-31 18:57 | Emergency (ER) | payer OTHER ==
--- NOTE | 2020-01-31 19:30 | ED ---
Extremity Problem HPI - General Chief complaint: Extremity Problem,Nontraumatic Stated complaint: R Big Toe Pain Time Seen by Provider: 01/31/20 19:17 Source: patient, RN notes reviewed, old records reviewed Mode of arrival: wheelchair Limitations: no limitations - History of Present Illness Initial comments: Patient is a 49-year-old male with history of diabetes who presents the emergency department today with right great toe infection. Patient reports that on Wednesdays toenail fell off. Patient states he's had since then progressive erythema from the great toe extending up to the dorsum of the foot. Patient states that he works in [employer]. He also states that he has multiple wounds over his bilateral thighs been trying to heal on his own. He's had no recent antibiotics. He denies any significant pain with movement of the great toe. - Related Data Home Medications Medication Instructions Recorded Confirmed Albuterol Inhaler (Mhu) [Ventolin 1 - 2 puff INHALATION RT-Q6H PRN 11/02/19 11/02/19 Hfa Inhaler (Mhu)] DULoxetine HCL [Cymbalta] 60 mg PO DAILY 11/02/19 11/02/19 Gabapentin 800 mg PO TID 11/02/19 11/02/19 Insulin Glargine,Hum.rec.anlog 80 unit SQ HS 11/02/19 11/02/19 [Basaglar Jeniikpen U-100] Insulin Lispro [Admelog] See Protocol SQ AC-TID 11/02/19 11/02/19 Rosuvastatin [Crestor] 10 mg PO HS 11/02/19 11/02/19 metFORMIN HCL 1,000 mg PO BID 11/02/19 11/02/19 traZODone HCL 50 - 100 mg PO HS PRN 11/02/19 11/02/19 Previous Rx's Medication Instructions Recorded Aspirin 81 mg PO DAILY #30 chew 11/04/19 Omeprazole [PriLOSEC] 40 mg PO AC-BRKFST #14 capsule. 11/04/19 Nitroglycerin Sl Tabs [Nitrostat] 0.4 mg SUBLINGUAL Q5M PRN #30 tab 11/05/19 Sulfamethox-Tmp 800-160Mg [Bactrim 2 tab PO BID #40 tab 01/31/20 DS 800-160 mg] Allergies Allergy/AdvReac Type Severity Reaction Status Date / Time No Known Allergies Allergy Verified 01/31/20 19:06 Review of Systems ROS Statement: Those systems with pertinent positive or pertinent negative responses have been documented in the HPI. ROS Other: All systems not noted in ROS Statement are negative. Past Medical History Past Medical History: Diabetes Mellitus, Hyperlipidemia Additional Past Medical History / Comment(s): IDDM type II, neuropathy bilateral feet, past scrotal cellulitis/L testicular abscess with surgery and back abscess with surgery. History of Any Multi-Drug Resistant Organisms: None Reported Past Surgical History: Cholecystectomy Additional Past Surgical History / Comment(s): I&D scrotal abscess, I&D back abscess Past Anesthesia/Blood Transfusion Reactions: No Reported Reaction Past Psychological History: Anxiety Smoking Status: Current every day smoker Past Alcohol Use History: Occasional Past Drug Use History: None Reported - Past Family History Mother Family Medical History: Diabetes Mellitus Father History Unknown: Yes General Exam - General Exam Comments Initial Comments: 49-year-old male. Alert and oriented. No significant distress. Limitations: no limitations General appearance: alert, in no apparent distress Head exam: Present: atraumatic, normocephalic, normal inspection Eye exam: Present: normal appearance ENT exam: Present: normal exam, mucous membranes moist Neck exam: Present: normal inspection. Absent: tenderness, meningismus, lymphadenopathy Respiratory exam: Present: normal lung sounds bilaterally. Absent: respiratory distress, wheezes, rales, rhonchi, stridor Cardiovascular Exam: Present: regular rate, normal rhythm, normal heart sounds. Absent: systolic murmur, diastolic murmur, rubs, gallop, clicks GI/Abdominal exam: Present: soft, normal bowel sounds. Absent: distended, tenderness, guarding, rebound, rigid Extremities exam: Present: normal inspection, full ROM, normal capillary refill. Absent: tenderness, pedal edema, joint swelling, calf tenderness Right Upper Leg exam: Present: normal inspection, full ROM Knee exam: Present: normal inspection, full ROM Lower Leg exam: Present: normal inspection, full ROM Ankle exam: Present: normal inspection, full ROM Foot/Toe exam: Present: full ROM, swelling, erythema (Patient is swelling and erythema over the right great toe. Missing first toenail. There is sloughing of skin at the first toe.). Absent: normal inspection Neurovascular tendon exam: Present: no vascular compromise Gait: observed and normal Back exam: Present: normal inspection, full ROM Neurological exam: Present: alert, oriented X3, CN II-XII intact Psychiatric exam: Present: normal affect, normal mood Skin exam: Present: warm, dry, intact, normal color. Absent: rash Course Vital Signs 01/31/20 19:02 Temperature 98.4 F Pulse Rate 94 Respiratory 18 Rate Blood Pressure 128/77 O2 Sat by Pulse 99 Oximetry Medical Decision Making - Medical Decision Making 49-year-old male presents to emergency department today with complaints of infected right great toe. Patient reports his toenail came off and he now has surrounding erythema. Wound culture obtained today with some drainage. Lab work was otherwise unremarkable he has no pain with range of motion. X-ray shows no bony destruction or concern for osteomyelitis at this time. I discussed the Patient would benefit from wound care is a diabetic with history of neuropathy. Given referral for wound care and Patient started on antibiotics. He was given The Emergency Department. Discussed Strict Return Parameters and Close Follow-Up with PCP. - Lab Data Result diagrams: 01/31/20 18:02 01/31/20 18:02 Lab Results 01/31/20 01/31/20 01/31/20 Range/Units 18:02 18:02 18:02 WBC 7.1 (3.8-10.6) k/uL RBC 3.39 L (4.30-5.90) m/uL Hgb 10.3 L (13.0-17.5) gm/dL Hct 29.9 L (39.0-53.0) % MCV 88.0 (80.0-100.0) fL MCH 30.3 (25.0-35.0) pg MCHC 34.4 (31.0-37.0) g/dL RDW 11.6 (11.5-15.5) % Plt Count 236 (150-450) k/uL Neutrophils % 65 % Lymphocytes % 21 % Monocytes % 6 % Eosinophils % 6 % Basophils % 1 % Neutrophils # 4.6 (1.3-7.7) k/uL Lymphocytes # 1.5 (1.0-4.8) k/uL Monocytes # 0.4 (0-1.0) k/uL Eosinophils # 0.4 (0-0.7) k/uL Basophils # 0.1 (0-0.2) k/uL PT 9.8 (9.0-12.0) sec INR 0.9 (<1.2) APTT 23.4 (22.0-30.0) sec Sodium 137 (137-145) mmol/L Potassium 4.6 (3.5-5.1) mmol/L Chloride 102 (98-107) mmol/L Carbon Dioxide 27 (22-30) mmol/L Anion Gap 8 mmol/L BUN 38 H (9-20) mg/dL Creatinine 1.55 H (0.66-1.25) mg/dL Est GFR (CKD-EPI)AfAm 60 (>60 ml/min/1.73 sqM) Est GFR (CKD-EPI)NonAf 52 (>60 ml/min/1.73 sqM) Glucose 257 H (74-99) mg/dL Calcium 8.8 (8.4-10.2) mg/dL Total Bilirubin 0.4 (0.2-1.3) mg/dL AST 18 (17-59) U/L ALT 19 (4-49) U/L Alkaline Phosphatase 93 (38-126) U/L Total Protein 6.9 (6.3-8.2) g/dL Albumin 3.5 (3.5-5.0) g/dL - Radiology Data Radiology results: report reviewed No Fracture dislocation of the right foot. Disposition Clinical Impression: Cellulitis in diabetic foot Disposition: HOME SELF-CARE Condition: Good Instructions (If sedation given, give patient instructions): Wound Infection (ED) Additional Instructions: Take antibiotic as prescribed. Follow-up with the wound care clinic. Return to the emergency department if any alarming signs or symptoms occur. Prescriptions: Sulfamethox-Tmp 800-160Mg [Bactrim DS 800-160 mg] 2 tab PO BID #40 tab Is patient prescribed a controlled substance at d/c from ED?: No Referrals: Meet Fontanez DO [Primary Care Provider] - 1-2 days Vandana Begrman NPC [Nurse Practitioner] - 1-2 days Time of Disposition: 21:21
--- NOTE | 2020-01-31 20:06 | XR ---
EXAMINATION TYPE: XR foot complete RT DATE OF EXAM: 01/31/2020 CLINICAL HISTORY: Right foot pain TECHNIQUE: Frontal, lateral, and oblique images of the right foot are obtained. COMPARISON: None FINDINGS: There is no acute fracture/dislocation evident in the right foot. The joint spaces in the right foot appear aligned. Mild degenerative change of the distal interphalangeal joints is seen as osseous proliferation. Very small plantar and Achilles enthesophytes are seen. The overlying soft tis regis appears unremarkable. IMPRESSION: There is no acute fracture or dislocation in the right foot.
[2020-01-31 20:25] LABS: Basophils # (A) 0.1 k/uL (0-0.2); Basophils % (A) 1 %; Eosinophils # (A) 0.4 k/uL (0-0.7); Eosinophils % (A) 6 %; HCT 29.9 % (39.0-53.0); HGB 10.3 gm/dL (13.0-17.5); Lymphocytes # (A) 1.5 k/uL (1.0-4.8); Lymphocytes % (A) 21 %; MCH 30.3 pg (25.0-35.0); MCHC 34.4 g/dL (31.0-37.0); Mean Platelet Volume 9.3; Monocytes # (A) 0.4 k/uL (0-1.0); Monocytes % (A) 6 %; Neutrophils # (A) 4.6 k/uL (1.3-7.7); Neutrophils % (A) 65 %; Platelet Count 236 k/uL (150-450); RBC 3.39 m/uL (4.30-5.90); RDW 11.6 % (11.5-15.5); WBC 7.1 k/uL (3.8-10.6)
[2020-01-31 20:33] LABS: Albumin 3.5 g/dL (3.5-5.0); Calcium 8.8 mg/dL (8.4-10.2); Potassium 4.6 mmol/L (3.5-5.1); Total Bilirubin 0.4 mg/dL (0.2-1.3); Total Protein 6.9 g/dL (6.3-8.2)
[2020-01-31 20:37] LABS: INR 0.9 (<1.2); Partial Thromboplastin Time 23.4 sec (22.0-30.0); Prothrombin Time 9.8 sec (9.0-12.0)
[2020-01-31 21:58] VITALS: BP 152/90; PULSE 88; RESP 16; TEMP 98
== END 2020-01-31 22:00 | disposition home or self-care (01) ==
LOC: EC 18:57
DX: L03.031 Cellulitis of right toe (principal); E11.42 Type 2 diabetes mellitus with diabetic polyneuropathy; E78.5 Hyperlipidemia, unspecified; F41.9 Anxiety disorder, unspecified; Z79.4 Long term (current) use of insulin; F17.200 Nicotine dependence, unspecified, uncomplicated; Z79.899 Other long term (current) drug therapy
CPT/HCPCS: 99284 ×2; 96365 ×2; 36415; 80053; 85025; 85610; 85730; 87040; 87070; 87205; 87077; 87186; 73630; J0690

== ENCOUNTER 2020-03-11 19:35 | Inpatient (IN) | payer OTHER ==
[2020-03-11] MEDS ORDERED: cefTRIAXone IN SWFI 1,000 MG/10 ML SYRINGE IVP STA (20:16)
[2020-03-11] MEDS ORDERED: VANCOMYCIN IV PER PHARMACY 1 EACH MISC MISCELLANE PRN (20:16)
--- NOTE | 2020-03-11 20:20 | ED ---
General Adult HPI - General Source: patient, RN notes reviewed, old records reviewed Mode of arrival: ambulatory Limitations: no limitations <Torres Hutchins - Last Filed: 03/11/20 20:22> <Malena Christopher - Last Filed: 03/17/20 01:26> - General Chief complaint: Shortness of Breath Stated complaint: SOB/diarrhea Time Seen by Provider: 03/11/20 20:01 - History of Present Illness Initial comments: 50-year-old male presented for evaluation of vomiting diarrhea. Patient has history diabetes. He has had approximately 5 episodes of vomiting over the past 24 hours. No specific abdominal pain. He's also had greater than 10 episodes of diarrhea. Denies fever or chills. Patient had recent I&D of left flank a bscess. He has had radius skin and soft tissue infections in the past. He does report some mild sore throat associated with his vomiting. No cough. (Torers Hutchins) - Related Data Home Medications Medication Instructions Recorded Confirmed DULoxetine HCL [Cymbalta] 60 mg PO DAILY 11/02/19 03/11/20 Gabapentin 800 mg PO TID 11/02/19 03/11/20 Insulin Glargine,Hum.rec.anlog 60 unit SQ HS 11/02/19 03/11/20 [Basaglar Kwikpen U-100] traZODone HCL 50 - 100 mg PO HS PRN 11/02/19 03/11/20 Albuterol Sulfate [Ventolin HFA] 2 puff INHALATION RT-Q6H PRN 03/11/20 03/11/20 Ibuprofen [Motrin] 800 mg PO TID-W/MEALS PRN 03/11/20 03/11/20 Semaglutide [Ozempic] 1.5 ml SQ ARAUJO 03/11/20 03/11/20 Previous Rx's Medication Instructions Recorded Omeprazole [PriLOSEC] 40 mg PO AC-BRKFST #14 capsule. 11/04/19 Nitroglycerin Sl Tabs [Nitrostat] 0.4 mg SUBLINGUAL Q5M PRN #30 tab 11/05/19 Allergies Allergy/AdvReac Type Severity Reaction Status Date / Time No Known Allergies Allergy Verified 03/11/20 22:57 Review of Systems ROS Other: All systems not noted in ROS Statement are negative. <LisetTorres Sherri - Last Filed: 03/11/20 20:22> ROS Other: All systems not noted in ROS Statement are negative. <Malena Christopher - Last Filed: 03/17/20 01:26> ROS Statement: Those systems with pertinent positive or pertinent negative responses have been documented in the HPI. Past Medical History Past Medical History: Diabetes Mellitus, Hyperlipidemia Additional Past Medical History / Comment(s): IDDM type II, neuropathy bilateral feet, gout History of Any Multi-Drug Resistant Organisms: MRSA Date of last positivie culture/infection: 01/31/20 MDRO Source:: Right Foot Past Surgical History: Cholecystectomy Additional Past Surgical History / Comment(s): I&D scrotal abscess, I&D back abscess Past Anesthesia/Blood Transfusion Reactions: No Reported Reaction Past Psychological History: Anxiety Smoking Status: Current every day smoker Past Alcohol Use History: Occasional Past Drug Use History: None Reported - Past Family History Mother Family Medical History: Diabetes Mellitus Father History Unknown: Yes <Torres Hutchins - Last Filed: 03/11/20 20:22> General Exam Limitations: no limitations General appearance: alert, in no apparent distress Head exam: Present: atraumatic, normocephalic Eye exam: Present: normal appearance, PERRL ENT exam: Present: mucous membranes dry Neck exam: Present: normal inspection. Absent: tenderness, meningismus Respiratory exam: Present: normal lung sounds bilaterally. Absent: respiratory distress, wheezes Cardiovascular Exam: Present: normal rhythm, tachycardia GI/Abdominal exam: Present: soft, tenderness (Mild suprapubic tenderness). Absent: distended, guarding Extremities exam: Present: other (Left lower leg nonhealing wound.) Back exam: Present: other (Left posterior chest wall and left flank, abscess which has been incised and approximately 4 cm of surrounding cellulitis) Neurological exam: Present: alert, oriented X3, CN II-XII intact. Absent: motor sensory deficit Psychiatric exam: Present: normal affect, normal mood Skin exam: Present: warm, dry, intact, other (Left chest wall draining abscess with minimal cellulitis, abscess and cellulitis in the left posterior chest and flank as described above.). Absent: cyanosis, diaphoretic <Torres Hutchins - Last Filed: 03/11/20 20:22> Course <Torres Hutchins - Last Filed: 03/11/20 20:22> Vital Signs 03/11/20 03/11/20 03/11/20 19:37 20:00 20:01 Temperature 99.3 F Pulse Rate 106 H 101 H Respiratory 20 18 20 Rate Blood Pressure 65/31 91/62 O2 Sat by Pulse 99 93 L Oximetry 03/11/20 03/11/20 03/11/20 20:45 21:00 21:26 Temperature Pulse Rate 98 Respiratory 18 Rate Blood Pressure 112/68 116/56 118/63 O2 Sat by Pulse 99 Oximetry 03/12/20 03/12/20 00:00 00:25 Temperature 98.9 F Pulse Rate 97 Respiratory 18 18 Rate Blood Pressure 125/63 O2 Sat by Pulse 99 Oximetry - Reevaluation(s) Reevaluation #1: 03/11/20 2100 Patient's care is signed out to Dr. Christopher at shift change awaiting laboratory testing and final disposition. (Torres Hutchins) EKG Findings - EKG Comments: EKG Findings:: EKG: Sinus tachycardia, incomplete right bundle-branch block, rate of 101, MT interval 146, QRS duration 110 over QTC 451, no ST segment elevation. <Torres Hutchins - Last Filed: 03/11/20 20:22> Medical Decision Making - Lab Data Result diagrams: 03/16/20 06:13 03/16/20 06:13 <Malena Christopher - Last Filed: 03/17/20 01:26> - Medical Decision Making Upon arrival patient is placed into room 7. He is hooked up to continuous pulse ox and cardiac monitoring. Patient has notably low blood pressures upon arrival. Blood pressure 65/31. Peripheral IV was established. Patient was given IV fluids. Originally seen by Dr. Hutchins and then care was transferred to ma. Review of labs demonstrate a white blood cell count of 20,000. Hemoglobin 11. Platelets 269. Glucose 341. Sodium 131 potassium 4.5. CO2 is 23 with an anion gap of 11. Creatinine is 2.3. Lactic acid 1.7. Patient was given a dose of Rocephin and Vanco for his left flank abscess. Abscess was I&D this AM per patient by PCP. I provided the patient with 10 units insulin due to his hyperglycemia. Patient will be admitted to the hospital in order to trend his blood pressures. Patient will remain on fluids and antiemetics. Patient placed on sliding scale. Patient is currently awaiting a bed on the floor (Malena Christopher) - Lab Data Lab Results 03/11/20 03/11/20 03/11/20 Range/Units 20:20 20:40 20:40 WBC 20.3 H (3.8-10.6) k/uL RBC 3.85 L (4.30-5.90) m/uL Hgb 11.0 L (13.0-17.5) gm/dL Hct 33.3 L (39.0-53.0) % MCV 86.5 (80.0-100.0) fL MCH 28.5 (25.0-35.0) pg MCHC 33.0 (31.0-37.0) g/dL RDW 12.1 (11.5-15.5) % Plt Count 269 (150-450) k/uL Neutrophils % 88 % Lymphocytes % 5 % Monocytes % 5 % Eosinophils % 1 % Basophils % 0 % Neutrophils # 17.9 H (1.3-7.7) k/uL Lymphocytes # 1.0 (1.0-4.8) k/uL Monocytes # 1.0 (0-1.0) k/uL Eosinophils # 0.1 (0-0.7) k/uL Basophils # 0.1 (0-0.2) k/uL PT (9.0-12.0) sec INR (<1.2) APTT (22.0-30.0) sec Sodium 131 L (137-145) mmol/L Potassium 4.5 (3.5-5.1) mmol/L Chloride 97 L (98-107) mmol/L Carbon Dioxide 23 (22-30) mmol/L Anion Gap 11 mmol/L BUN 44 H (9-20) mg/dL Creatinine 2.30 H (0.66-1.25) mg/dL Est GFR (CKD-EPI)AfAm 37 (>60 ml/min/1.73 sqM) Est GFR (CKD-EPI)NonAf 32 (>60 ml/min/1.73 sqM) Glucose 341 H (74-99) mg/dL POC Glucose (mg/dL) 373 H (75-99) mg/dL POC Glu Interventional Physician ID Aundrea Jara Plasma Lactic Acid Don (0.7-2.0) mmol/L Calcium 8.3 L (8.4-10.2) mg/dL Total Bilirubin 0.4 (0.2-1.3) mg/dL AST 16 L (17-59) U/L ALT 12 (4-49) U/L Alkaline Phosphatase 127 H (38-126) U/L Total Protein 6.5 (6.3-8.2) g/dL Albumin 3.3 L (3.5-5.0) g/dL Amylase <30 L (30-110) U/L Lipase 33 (23-300) U/L 03/11/20 03/11/20 Range/Units 20:40 20:40 WBC (3.8-10.6) k/uL RBC (4.30-5.90) m/uL Hgb (13.0-17.5) gm/dL Hct (39.0-53.0) % MCV (80.0-100.0) fL MCH (25.0-35.0) pg MCHC (31.0-37.0) g/dL RDW (11.5-15.5) % Plt Count (150-450) k/uL Neutrophils % % Lymphocytes % % Monocytes % % Eosinophils % % Basophils % % Neutrophils # (1.3-7.7) k/uL Lymphocytes # (1.0-4.8) k/uL Monocytes # (0-1.0) k/uL Eosinophils # (0-0.7) k/uL Basophils # (0-0.2) k/uL PT 10.2 (9.0-12.0) sec INR 1.0 (<1.2) APTT 23.7 (22.0-30.0) sec Sodium (137-145) mmol/L Potassium (3.5-5.1) mmol/L Chloride (98-107) mmol/L Carbon Dioxide (22-30) mmol/L Anion Gap mmol/L BUN (9-20) mg/dL Creatinine (0.66-1.25) mg/dL Est GFR (CKD-EPI)AfAm (>60 ml/min/1.73 sqM) Est GFR (CKD-EPI)NonAf (>60 ml/min/1.73 sqM) Glucose (74-99) mg/dL POC Glucose (mg/dL) (75-99) mg/dL POC Glu Interventional Physician ID Plasma Lactic Acid Don 1.7 (0.7-2.0) mmol/L Calcium (8.4-10.2) mg/dL Total Bilirubin (0.2-1.3) mg/dL AST (17-59) U/L ALT (4-49) U/L Alkaline Phosphatase (38-126) U/L Total Protein (6.3-8.2) g/dL Albumin (3.5-5.0) g/dL Amylase (30-110) U/L Lipase (23-300) U/L Disposition <Torres Hutchins - Last Filed: 03/11/20 20:22> Is patient prescribed a controlled substance at d/c from ED?: No Decision to Admit Reason: Admit from EC Decision Date: 03/11/20 Decision Time: 23:03 <Malena Christopher - Last Filed: 03/17/20 01:26> Clinical Impression: NIXON (acute kidney injury), Diabetes mellitus, Hyperglycemia, Abscess, Leukoc ytosis, Hypotension Disposition: ADMITTED IP TO THIS HOSP Condition: Stable
--- NOTE | 2020-03-11 20:45 | XR ---
EXAMINATION TYPE: XR chest 2V DATE OF EXAM: 03/11/2020 COMPARISON: 11/02/2019 HISTORY: Chest pain. Short of breath TECHNIQUE: FINDINGS: Heart and mediastinum are normal. Lungs are clear. Diaphragm is normal. Bony thorax appears normal. IMPRESSION: Normal chest. No change.
[2020-03-11 20:48] LABS: Basophils # (A) 0.1 k/uL (0-0.2); Basophils % (A) 0 %; Eosinophils # (A) 0.1 k/uL (0-0.7); Eosinophils % (A) 1 %; HCT 33.3 % (39.0-53.0); Lymphocytes % (A) 5 %; MCH 28.5 pg (25.0-35.0); MCV 86.5 fL (80.0-100.0); Mean Platelet Volume 8.9; Monocytes % (A) 5 %; Neutrophils # (A) 17.9 k/uL (1.3-7.7); Neutrophils % (A) 88 %; Platelet Count 269 k/uL (150-450); RBC 3.85 m/uL (4.30-5.90); RDW 12.1 % (11.5-15.5); WBC 20.3 k/uL (3.8-10.6)
[2020-03-11 20:59] LABS: ALT 12 U/L (4-49); AST 16 U/L (17-59); African American GFR (CKD) 37 (>60 ml/min/1.73 sqM); Albumin 3.3 g/dL (3.5-5.0); Alkaline Phosphatase 127 U/L (38-126); Amylase <30 U/L (30-110); Anion Gap 11 mmol/L; Blood Urea Nitrogen 44 mg/dL (9-20); Calcium 8.3 mg/dL (8.4-10.2); Carbon Dioxide 23 mmol/L (22-30); Chloride 97 mmol/L (98-107); Glucose 341 mg/dL (74-99); Lipase 33 U/L (23-300); Non-African American GFR(CKD) 32 (>60 ml/min/1.73 sqM); Potassium 4.5 mmol/L (3.5-5.1); Sodium 131 mmol/L (137-145); Total Bilirubin 0.4 mg/dL (0.2-1.3); Total Protein 6.5 g/dL (6.3-8.2)
[2020-03-11 21:03] LABS: Partial Thromboplastin Time 23.7 sec (22.0-30.0); Prothrombin Time 10.2 sec (9.0-12.0)
[2020-03-11] MEDS ORDERED: VANCOMYCIN 1,500 MG in SODIUM CHLORIDE 0.9% 250 ML IVPB ONE (22:00)
[2020-03-11] MEDS ORDERED: INSULIN REGULAR 100 UNIT/ML VIAL SQ ONE (23:02)
[2020-03-11] MEDS ORDERED: NALOXONE 0.4 MG/ML 1 ML VIAL IV PRN (23:04)
[2020-03-11] MEDS ORDERED: ONDANSETRON 4 MG/2 ML VIAL IVP PRN (23:04)
[2020-03-11] MEDS ORDERED: INSULIN DETEMIR (LEVEMIR) 100 UNIT/ML SYR SQ SCH (23:30)
[2020-03-12] MEDS: SODIUM CHLORIDE 0.9% 1,000 ML IV SCH ×4 (00:38→18:27)
[2020-03-12] MEDS ORDERED: GABAPENTIN 400 MG CAP PO STA (00:45)
[2020-03-12] MEDS ORDERED: IBUPROFEN 600 MG TAB PO STA (00:46)
[2020-03-12 07:53] LABS: Basophils # (A) 0.1 k/uL (0-0.2); Basophils % (A) 0 %; Eosinophils # (A) 0.3 k/uL (0-0.7); Eosinophils % (A) 1 %; HCT 32.5 % (39.0-53.0); Lymphocytes % (A) 10 %; MCH 29.6 pg (25.0-35.0); MCV 87.3 fL (80.0-100.0); Mean Platelet Volume 8.9; Monocytes # (A) 0.9 k/uL (0-1.0); Monocytes % (A) 5 %; Neutrophils % (A) 82 %; Platelet Count 272 k/uL (150-450); RBC 3.73 m/uL (4.30-5.90); RDW 12.2 % (11.5-15.5); WBC 19.5 k/uL (3.8-10.6)
[2020-03-12 07:58] LABS: Calcium 7.9 mg/dL (8.4-10.2); Potassium 4.2 mmol/L (3.5-5.1); Total Bilirubin 0.4 mg/dL (0.2-1.3); Total Protein 6.2 g/dL (6.3-8.2)
[2020-03-12] MEDS: INSULIN ASPART (NovoLOG) 100 UNIT/ML VIAL SQ SCH ×4 (08:43→21:01)
[2020-03-12] MEDS: DULoxetine HCL 60 MG CAPSULE.DR PO SCH (09:33)
[2020-03-12] MEDS: PANTOPRAZOLE 40 MG TABLET PO SCH (09:33)
[2020-03-12] MEDS ORDERED: CLINDAMYCIN 600 MG in DEXTROSE 5% IN WATER 50 ML IVPB SCH ×2 (12:30)
--- NOTE | 2020-03-12 13:38 | P.HPIM ---
History of Present Illness H&P Date: 03/12/20 Chief Complaint: Diarrhea, tired History of present complaint: This is a very pleasant 50-year-old patient was chronic stable medical conditions include diabetes mellitus type 2, peripheral neuropathy, hyperlipidemia and a prior history of MRSA the right foot. 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 Yesterday patient had 6 episodes of diarrhea and vomited about 3 times. Abdominal pain. No fever but did have some chills. Patient also was noticed to have a abscess in the left chest wall posteriorly. He felt something there for last for 5 days. Had gone to his family doctor and it I&D. Patient presents really weak tired rundown. Found to be in renal failure. Given IV fluids. Feels a bit better this morning. The felt dizzy with standing up. Outside temperatures being the 90s while he was working and mowing lawn outside. Patient felt dehydrated. No further vomiting. No further diarrhea. Review of systems: GEN.: Tired dizzy EYES: None HEENT: None NECK: None RESPIRATORY: None CARDIOVASCULAR: None GASTROINTESTINAL: As above GENITOURINARY: None MUSCULOSKELETAL: As above LYMPHATICS: None HEMATOLOGICAL: None PSYCHIATRY: None NEUROLOGICAL: No focal Past medical history to include: Diabetes, hyperlipidemia, peripheral neuropathy, MRSA infection the right foot, anxiety Social history: Patient lives with his uncle and aunt. The [place] tenderness. Smoking 2 packs a day for 20 years. Alcohol occasionally. Physical examination: VITAL SIGNS: 99.3, 106, 20, 65/31, 99% room air GENERAL: BMI 28.7, laying in bed, awake a bit tired. EYES: Pupils equal. Conjunctiva normal. HEENT: External appearance of nose and ears normal, oral cavity grossly normal. NECK: JVD not raised; masses not palpable. HEART: First and second heart sounds are normal; no edema. LUNGS: Respiratory rate normal; clear to auscultation. ABDOMEN: Soft, nontender, liver spleen not palpable, no masses palpable. PSYCH: Alert and oriented x3; mood and affect normal. CHEST wall: Left posterior chest wall shows an indurated area, with a central area having about with some pus and there. NEUROLOGICAL: Cranial nerves grossly intact; no facial asymmetry, power and sensation grossly intact. LYMPHATICS: No lymph nodes palpable in the axilla and neck INVESTIGATIONS, reviewed in the clinical context: White count 20.3 hemoglobin 11 increased neutrophils potassium 4.5 bun 44 creatinine 2.30 blood glucose 331 EKG tracing personally reviewed by me-sinus rhythm heart rate of 101 Chest x-ray film personally reviewed by me-lung manzo clear Assessment: -Acute kidney injury possibly combination of ATN from being on medication the setting of prerenal from patient having nausea vomiting diarrhea also working out of the sun. Temperature was 90. Note also patient is on Motrin. -Hypotension from volume loss and dehydration -Diabetes mellitus type 2 chronically on insulin uncontrolled with both hyper and hypoglycemia -Diabetic peripheral neuropathy -Hyperlipidemia -Left chest wall abscess that was drained in the office still significantly indurated. Patient's a prior history of MRSA infections. Likely culprit again Plan: Patient was started on IV vancomycin the ER. We'll switched her to daptomycin in view of renal function. Increase IV fluid to 1 50 mL an hour. Home medications to be resumed. Decrease Levemir to 46 units at night. Patient initially was on clear liquids and advance to soft bland diet. Check labs closely. General surgery been consulted with review to I&D. Lovenox for DVT prophylaxis. Follow labs closely. Stopped NSAIDs. Past Medical History Past Medical History: Diabetes Mellitus, Hyperlipidemia Additional Past Medical History / Comment(s): IDDM type II, neuropathy bilateral feet, gout History of Any Multi-Drug Resistant Organisms: MRSA Date of last positivie culture/infection: 01/31/20 MDRO Source:: Right Foot Past Surgical History: Cholecystectomy Additional Past Surgical History / Comment(s): I&D scrotal abscess, I&D back abscess Past Anesthesia/Blood Transfusion Reactions: No Reported Reaction Past Psychological History: Anxiety Additional Psychological History / Comment(s): Pt resides with his aunt and uncle. He is independent. He works in [employer]. Smoking Status: Former smoker Past Alcohol Use History: Occasional Additional Past Alcohol Use History / Comment(s): Pt started smoking in 1987 and quit 2 weeks ago. Past Drug Use History: None Reported - Past Family History Mother Family Medical History: Diabetes Mellitus Father History Unknown: Yes Medications and Allergies Home Medications Medication Instructions Recorded Confirmed Type DULoxetine HCL [Cymbalta] 60 mg PO DAILY 11/02/19 03/11/20 History Gabapentin 800 mg PO TID 11/02/19 03/11/20 History Insulin Glargine,Hum.rec.anlog 60 unit SQ HS 11/02/19 03/11/20 History [Basaglar Kwikpen U-100] traZODone HCL 50 - 100 mg PO HS PRN 11/02/19 03/11/20 History Omeprazole [PriLOSEC] 40 mg PO AC-BRKFST #14 capsule. 11/04/19 03/11/20 Rx Nitroglycerin Sl Tabs [Nitrostat] 0.4 mg SUBLINGUAL Q5M PRN #30 tab 11/05/19 Rx Albuterol Sulfate [Ventolin HFA] 2 puff INHALATION RT-Q6H PRN 03/11/20 03/11/20 History Ibuprofen [Motrin] 800 mg PO TID-W/MEALS PRN 03/11/20 03/11/20 History Semaglutide [Ozempic] 1.5 ml SQ ARAUJO 03/11/20 03/11/20 History Allergies Allergy/AdvReac Type Severity Reaction Status Date / Time No Known Allergies Allergy Verified 03/11/20 22:57 Physical Exam Vitals: Vital Signs Temp Pulse Pulse Resp BP BP Pulse Ox 03/12/20 07:00 97.5 F L 89 18 135/73 100 03/12/20 04:00 18 03/12/20 02:22 18 03/12/20 01:36 99.6 F 101 H 119/71 97 03/12/20 00:25 98.9 F 97 18 125/63 99 03/12/20 00:00 18 03/11/20 21:26 98 18 118/63 99 03/11/20 21:00 116/56 03/11/20 20:45 112/68 03/11/20 20:01 101 H 20 91/62 93 L 03/11/20 20:00 18 65/31 03/11/20 19:37 99.3 F 106 H 20 99 Intake and Output 03/11/20 03/12/20 03/12/20 22:59 06:59 14:59 Other: Voiding Method Urinal Weight 83.007 kg 83.007 kg Results CBC & Chem 7: 03/12/20 06:44 03/12/20 06:44 Labs: Abnormal Lab Results - Last 24 Hours (Table) 03/11/20 03/11/20 03/12/20 Range/Units 20:40 20:40 06:44 WBC 20.3 H 19.5 H (3.8-10.6) k/uL RBC 3.85 L 3.73 L (4.30-5.90) m/uL Hgb 11.0 L 11.0 L (13.0-17.5) gm/dL Hct 33.3 L 32.5 L (39.0-53.0) % Neutrophils # 17.9 H 16.0 H (1.3-7.7) k/uL Sodium 131 L (137-145) mmol/L Chloride 97 L (98-107) mmol/L BUN 44 H (9-20) mg/dL Creatinine 2.30 H (0.66-1.25) mg/dL Glucose 341 H (74-99) mg/dL Calcium 8.3 L (8.4-10.2) mg/dL AST 16 L (17-59) U/L Alkaline Phosphatase 127 H (38-126) U/L Total Protein (6.3-8.2) g/dL Albumin 3.3 L (3.5-5.0) g/dL Amylase <30 L (30-110) U/L 03/12/20 Range/Units 06:44 WBC (3.8-10.6) k/uL RBC (4.30-5.90) m/uL Hgb (13.0-17.5) gm/dL Hct (39.0-53.0) % Neutrophils # (1.3-7.7) k/uL Sodium (137-145) mmol/L Chloride (98-107) mmol/L BUN 42 H (9-20) mg/dL Creatinine 1.88 H (0.66-1.25) mg/dL Glucose 53 L (74-99) mg/dL Calcium 7.9 L (8.4-10.2) mg/dL AST 14 L (17-59) U/L Alkaline Phosphatase (38-126) U/L Total Protein 6.2 L (6.3-8.2) g/dL Albumin 3.0 L (3.5-5.0) g/dL Amylase (30-110) U/L Thrombosis Risk Factor Assmnt - Choose All That Apply Other Risk Factors: No Other congenital or acquired thrombophilia - If yes, enter type in comment: No
[2020-03-12] MEDS ORDERED: MAG HYDROX/AL HYDROX/SIMETH 30 ML CUP PO PRN (13:39)
[2020-03-12] MEDS ORDERED: MAGNESIUM HYDROXIDE 2,400 MG/10 ML CUP PO PRN (13:39)
[2020-03-12] MEDS ORDERED: LACTULOSE 20 GM/30 ML CUP PO PRN (13:39)
[2020-03-12] MEDS ORDERED: CALCIUM CARBONATE 500 MG CHEWABLE PO PRN (13:39)
[2020-03-12] MEDS ORDERED: TEMAZEPAM 15 MG CAP PO PRN (13:39)
[2020-03-12] MEDS: ENOXAPARIN 40 MG/0.4 ML SYRINGE SQ SCH (14:44)
[2020-03-12] MEDS: DAPTOmycin 500 MG in SODIUM CHLORIDE 0.9% 50 ML IVPB SCH (14:44)
[2020-03-12] MEDS: ACETAMINOPHEN TAB 325 MG TAB PO PRN ×2 (14:50→21:11)
[2020-03-12] MEDS: NICOTINE 21MG/24HR PATCH TRANSDERM SCH (15:07)
[2020-03-12 15:27] LABS: Glucose,Whole Blood 134 mg/dL (75-99)
[2020-03-12 15:30] LABS: Glucose,Whole Blood 264 mg/dL (75-99)
[2020-03-12 15:37] LABS: Glucose,Whole Blood 373 mg/dL (75-99)
[2020-03-12 15:40] LABS: Glucose,Whole Blood 327 mg/dL (75-99)
[2020-03-12 15:42] LABS: Glucose,Whole Blood 69 mg/dL (75-99)
[2020-03-12] MEDS: GABAPENTIN 300 MG CAP PO SCH ×2 (16:26→21:12)
[2020-03-12 20:35] LABS: Glucose,Whole Blood 104 mg/dL (75-99)
[2020-03-12] MEDS ORDERED: VANCOMYCIN 1,500 MG in SODIUM CHLORIDE 0.9% 250 ML IVPB SCH (21:00)
[2020-03-12] MEDS: INSULIN DETEMIR (LEVEMIR) 100 UNIT/ML SYR SQ SCH (21:11)
[2020-03-12] MEDS ORDERED: VANCOMYCIN 1,250 MG in SODIUM CHLORIDE 0.9% 250 ML IVPB SCH (23:00)
[2020-03-13] MEDS: SODIUM CHLORIDE 0.9% 1,000 ML IV SCH ×3 (02:11→12:50)
[2020-03-13] MEDS: ACETAMINOPHEN TAB 325 MG TAB PO PRN ×2 (03:37→21:40)
[2020-03-13 05:51] LABS: Glucose,Whole Blood 55 mg/dL (75-99)
[2020-03-13] MEDS ORDERED: DEXTROSE 50% SYRINGE 50 ML IVP ONE (06:00)
[2020-03-13] MEDS ORDERED: DEXTROSE 50% SYRINGE 50 ML IVP STA (06:03)
[2020-03-13] MEDS ORDERED: DEXTROSE 5%-0.9% NACL 1,000 ML IV SCH (06:15)
[2020-03-13 06:23] LABS: Calcium 7.6 mg/dL (8.4-10.2); Potassium 3.3 mmol/L (3.5-5.1)
[2020-03-13 06:27] LABS: Glucose,Whole Blood 147 mg/dL (75-99)
[2020-03-13] MEDS: INSULIN ASPART (NovoLOG) 100 UNIT/ML VIAL SQ SCH ×4 (06:32→21:41)
[2020-03-13] MEDS: NICOTINE 21MG/24HR PATCH TRANSDERM SCH (07:49)
[2020-03-13] MEDS: ENOXAPARIN 40 MG/0.4 ML SYRINGE SQ SCH (07:52)
[2020-03-13] MEDS: GABAPENTIN 300 MG CAP PO SCH ×3 (07:52→21:40)
[2020-03-13] MEDS: DULoxetine HCL 60 MG CAPSULE.DR PO SCH (07:52)
[2020-03-13] MEDS: PANTOPRAZOLE 40 MG TABLET PO SCH (07:52)
[2020-03-13 07:55] LABS: Glucose,Whole Blood 112 mg/dL (75-99)
[2020-03-13] MEDS ORDERED: POTASSIUM CHLORIDE ER 20 MEQ TAB.ER PO STA (08:59)
[2020-03-13 09:12] LABS: Basophils # (A) 0.1 k/uL (0-0.2); Basophils % (A) 1 %; Eosinophils # (A) 0.2 k/uL (0-0.7); Eosinophils % (A) 1 %; HCT 31.9 % (39.0-53.0); HGB 10.5 gm/dL (13.0-17.5); Lymphocytes # (A) 1.4 k/uL (1.0-4.8); Lymphocytes % (A) 9 %; MCH 28.8 pg (25.0-35.0); MCHC 32.8 g/dL (31.0-37.0); MCV 87.7 fL (80.0-100.0); Monocytes # (A) 0.9 k/uL (0-1.0); Monocytes % (A) 6 %; Neutrophils # (A) 12.1 k/uL (1.3-7.7); Neutrophils % (A) 82 %; Platelet Count 247 k/uL (150-450); RBC 3.63 m/uL (4.30-5.90); RDW 12.1 % (11.5-15.5); WBC 14.7 k/uL (3.8-10.6)
--- NOTE | 2020-03-13 10:30 | CT ---
EXAMINATION TYPE: CT abdomen pelvis wo con DATE OF EXAM: 03/13/2020 COMPARISON: 01/25/2013 HISTORY: Lt flank cellulitis CT DLP: 801.9 mGycm Automated exposure control for dose reduction was used. TECHNIQUE: Helical acquisition of images was performed from the lung bases through the pelvis. FINDINGS: LUNG BASES: Subsegmental changes involving the lung bases. Most typical of atelectasis. LIVER/GB: Postcholecystectomy changes. PANCREAS: No significant abnormality is seen. SPLEEN: No significant abnormality is seen. ADRENALS: No significant abnormality is seen. KIDNEYS: Nonspecific diffuse perinephric stranding can occasionally be associated with infectious lopez ology correlate clinically. No hydronephrosis. No nephrolithiasis. FREE AIR: No free air is visualized URINARY BLADDER: No significant abnormality is seen. ADENOPATHY: None visualized. OSSEOUS STRUCTURES: Mild hypertrophic change of the thoracolumbar junction.. BOWEL: No significant abnormality is seen. OTHER: Diffuse subcutaneous edema. Greater on the left. IMPRESSION: 1. Diffuse subcutaneous edema involving the left flank and back correlate for cellulitis. 2. Nonspecific perinephric edema with no evidence of hydronephrosis or nephrolithiasis. Correlate wit h urinalysis to exclude infection. 3. Post cholecystectomy.
--- NOTE | 2020-03-13 10:31 | P.GSCN ---
History of Present Illness Consult date: 03/13/20 History of present illness: CHIEF COMPLAINT: Abscess HISTORY OF PRESENT ILLNESS: The patient is a 50 year old male who was seen and evaluated. He reports having moderate size abscess along the left lower back including new lesion along the left chest wall. He has uncontrolled diabetes. He has history of MRSA. He has history of multiple incisions and drainage. PAST MEDICAL HISTORY: See list and reviewed PAST SURGICAL HISTORY: See list and reviewed MEDICATIONS: See list and reviewed ALLERGIES: See list and reviewed SOCIAL HISTORY: See list and reviewed FAMILY HISTORY: See list and reviewed REVIEW OF ORGAN SYSTEMS: CONSTITUTIONAL: No fevers or chills. No recent weight loss. EYES: Denies any trouble with vision. No glasses. HEENT: No difficulties with hearing. No nosebleeds. No difficulty swallowing. RESPIRATORY: Denies pneumonia. Denies any troubles with breathing or dyspnea on exertion. CARDIOVASCULAR: Denies any chest pain, palpitations, or recent heart attacks. Has hyperlipidemia. GASTROINTESTINAL: Denies fatty food intolerance. Denies change in bowel habits and gas bloat. GENITOURINARY: Denies any blood in urine or increased urinary frequency. NEUROLOGICAL: Has numbness or tingling along the distal extremities. No seizure disorders or headaches. MUSCULOSKELETAL: Has back pain, stiffness or joint arthritis. Has gout. SKIN: No current skin cancer. Has rash. PSYCHIATRIC: Denies current depression or suicidal thoughts. ENDOCRINE: Denies current thyroid disorders. Has blood sugar glucose intolerance. HEME/LYMPHATIC: Denies any lumps and bumps around the neck. No recent deep venous thrombosis. ALLERGY/IMMUNOLOGY: No immunoglobulin therapy. No immune deficiencies. BREAST: Denies current breast lumps, pain or nipple discharge. PHYSICAL EXAM: VITALS: Reviewed CONSTITUTIONAL: Well developed and in no acute distress. EYES: Conjuctivae without sclera icterus. Pupils are equally round and reactive to light. Extraocular movements grossly intact. HEAD, EARS, NOSE, THROAT: Moist buccal mucosa. Head is atraumatic, normocephalic. Hears conversational speech. No nasal drainage. NECK: Supple. No JV distention. No thyroidomegaly. RESPIRATORY: Non-labored respirations and equal bilateral excursions. No gross wheezes. CARDIOVASCULAR: Regular rate and rhythm. Extremities without moderate edema. Palpable 2+ radial pulses. ABDOMEN: Soft. Non-tender. Nondistended. LYMPH: No neck lymphadenopathy. MUSCULOSKELETAL: Nail and fingers with good capillary refill. SKIN: Warm and well perfused with good skin turgor. Has moderate size abscess along the left lower back including new lesion along the left chest wall. NEUROLOGIC: Cranial nerves II through XII grossly intact. Sensation upper and extremities intact. No focal or lateralizing signs. PSYCH: Appropriate affect. Alert and oriented to person, place and time. Displays appropriate insight. CLINCAL LABS: Reviewed. WBC 20,000 elevated. ASSESSMENT: 1. Sepsis 2. Complicated back abscess 3. Uncontrolled diabetes type II PLAN: 1. Recommend CT of the abdomen pelvis to also elucidate abscess and cellulitis along the back as well as chest wall. 2. Will need tight glycemic control. 3. Will proceed with incision and drainage of left lower back abscess. 4. Recommend IV antibiotics with infectious disease management Thank you for this kind consultation. Past Medical History Past Medical History: Diabetes Mellitus, Hyperlipidemia Additional Past Medical History / Comment(s): IDDM type II, neuropathy bilateral feet, gout History of Any Multi-Drug Resistant Organisms: MRSA Year Discovered:: 01/31/20 MDRO Source:: Right Foot Past Surgical History: Cholecystectomy Additional Past Surgical History / Comment(s): I&D scrotal abscess, I&D back a bscess Past Anesthesia/Blood Transfusion Reactions: No Reported Reaction Past Psychological History: Anxiety Additional Psychological History / Comment(s): Pt resides with his aunt and uncle. He is independent. He works in [employer]. Smoking Status: Former smoker Past Alcohol Use History: Occasional Additional Past Alcohol Use History / Comment(s): Pt started smoking in 1987 and quit 2 weeks ago. Past Drug Use History: None Reported - Past Family History Mother Family Medical History: Diabetes Mellitus Father History Unknown: Yes Medications and Allergies Home Medications Medication Instructions Recorded Confirmed Type Omeprazole [PriLOSEC] 40 mg PO AC-BRKFST #14 capsule. 11/04/19 07/25/20 Rx Nitroglycerin Sl Tabs [Nitrostat] 0.4 mg SUBLINGUAL Q5M PRN #30 tab 11/05/19 07/25/20 Rx Semaglutide [Ozempic] 1.5 ml SQ MO 03/11/20 07/25/20 History Gabapentin 800 mg PO TID 03/31/20 07/25/20 History DULoxetine HCL [Cymbalta] 60 mg PO DAILY 04/01/20 07/25/20 History Acetaminophen Tab [Tylenol] 650 mg PO Q4H PRN 07/25/20 07/25/20 History Albuterol Sulfate [Proair Hfa] 2 puff INHALATION RT-Q6H PRN 07/25/20 07/25/20 History Daptomycin 800mg 800 mg IV DAILY 07/25/20 07/25/20 History Fluticasone Propion/Salmeterol 1 puff INHALATION RT-BID 07/25/20 07/25/20 Hist ory [Wixela 250-50 Inhub] amLODIPine [Norvasc] 5 mg PO BID 07/25/20 07/25/20 History Furosemide [Lasix] 20 mg PO BID #60 tab 07/27/20 Rx Insulin Glargine,Hum.rec.anlog 48 unit SQ HS #0 07/27/20 07/25/20 Rx [Basaglar Kwikpen U-100] Metoprolol Tartrate [Lopressor] 25 mg PO BID #60 tab 07/27/20 Rx Potassium Chloride ER [K-Dur 20] 20 meq PO DAILY #0 07/27/20 07/25/20 Rx Allergies Allergy/AdvReac Type Severity Reaction Status Date / Time No Known Allergies Allergy Verified 07/25/20 07:36 Surgical - Exam Vital Signs Temp Pulse Resp Pulse Ox 99.3 F 106 H 20 99 03/11/20 19:37 03/11/20 19:37 03/11/20 19:37 03/11/20 19:37 Results - Labs 03/17/20 07:19 03/20/20 06:50 Abnormal Lab Results - Last 24 Hours (Table) 03/11/20 03/12/20 03/12/20 Range/Units 20:20 00:06 06:54 WBC (3.8-10.6) k/uL RBC (4.30-5.90) m/uL Hgb (13.0-17.5) gm/dL Hct (39.0-53.0) % Neutrophils # (1.3-7.7) k/uL Sodium (137-145) mmol/L Potassium (3.5-5.1) mmol/L BUN (9-20) mg/dL Creatinine (0.66-1.25) mg/dL Glucose (74-99) mg/dL POC Glucose (mg/dL) 373 H 327 H 69 L (75-99) mg/dL Calcium (8.4-10.2) mg/dL 03/12/20 03/12/20 03/12/20 Range/Units 07:29 11:52 20:34 WBC (3.8-10.6) k/uL RBC (4.30-5.90) m/uL Hgb (13.0-17.5) gm/dL Hct (39.0-53.0) % Neutrophils # (1.3-7.7) k/uL Sodium (137-145) mmol/L Potassium (3.5-5.1) mmol/L BUN (9-20) mg/dL Creatinine (0.66-1.25) mg/dL Glucose (74-99) mg/dL POC Glucose (mg/dL) 264 H 134 H 104 H (75-99) mg/dL Calcium (8.4-10.2) mg/dL 03/13/20 03/13/20 03/13/20 Range/Units 05:49 06:00 06:26 WBC (3.8-10.6) k/uL RBC (4.30-5.90) m/uL Hgb (13.0-17.5) gm/dL Hct (39.0-53.0) % Neutrophils # (1.3-7.7) k/uL Sodium 136 L (137-145) mmol/L Potassium 3.3 L (3.5-5.1) mmol/L BUN 25 H (9-20) mg/dL Creatinine 1.28 H (0.66-1.25) mg/dL Glucose 64 L (74-99) mg/dL POC Glucose (mg/dL) 55 L 147 H (75-99) mg/dL Calcium 7.6 L (8.4-10.2) mg/dL 03/13/20 03/13/20 Range/Units 07:38 08:45 WBC 14.7 H (3.8-10.6) k/uL RBC 3.63 L (4.30-5.90) m/uL Hgb 10.5 L (13.0-17.5) gm/dL Hct 31.9 L (39.0-53.0) % Neutrophils # 12.1 H (1.3-7.7) k/uL Sodium (137-145) mmol/L Potassium (3.5-5.1) mmol/L BUN (9-20) mg/dL Creatinine (0.66-1.25) mg/dL Glucose (74-99) mg/dL POC Glucose (mg/dL) 112 H (75-99) mg/dL Calcium (8.4-10.2) mg/dL Microbiology - Last 24 Hours (Table) 03/12/20 14:50 Gram Stain - Preliminary Back Wound Culture - Preliminary 03/11/20 20:40 Blood Culture - Preliminary Blood No Growth after 24 hours 03/12/20 14:50 Anaerobic Culture - Preliminary Back Diabetes panel 03/13/20 Range/Units 06:00 Sodium 136 L (137-145) mmol/L Potassium 3.3 L (3.5-5.1) mmol/L Chloride 105 (98-107) mmol/L Carbon Dioxide 24 (22-30) mmol/L BUN 25 H (9-20) mg/dL Creatinine 1.28 H (0.66-1.25) mg/dL Glucose 64 L (74-99) mg/dL Calcium 7.6 L (8.4-10.2) mg/dL Calcium panel 03/13/20 Range/Units 06:00 Calcium 7.6 L (8.4-10.2) mg/dL Pituitary panel 03/13/20 Range/Units 06:00 Sodium 136 L (137-145) mmol/L Potassium 3.3 L (3.5-5.1) mmol/L Chloride 105 (98-107) mmol/L Carbon Dioxide 24 (22-30) mmol/L BUN 25 H (9-20) mg/dL Creatinine 1.28 H (0.66-1.25) mg/dL Glucose 64 L (74-99) mg/dL Calcium 7.6 L (8.4-10.2) mg/dL Adrenal panel 03/13/20 Range/Units 06:00 Sodium 136 L (137-145) mmol/L Potassium 3.3 L (3.5-5.1) mmol/L Chloride 105 (98-107) mmol/L Carbon Dioxide 24 (22-30) mmol/L BUN 25 H (9-20) mg/dL Creatinine 1.28 H (0.66-1.25) mg/dL Glucose 64 L (74-99) mg/dL Calcium 7.6 L (8.4-10.2) mg/dL
[2020-03-13 12:06] LABS: Glucose,Whole Blood 74 mg/dL (75-99)
[2020-03-13] MEDS ORDERED: ONDANSETRON 4 MG/2 ML VIAL ONE (13:02)
[2020-03-13] MEDS ORDERED: IV FLUID CONTINUATION 1,000 ML IV ONE (13:05)
[2020-03-13] MEDS ORDERED: ONDANSETRON 4 MG/2 ML VIAL IVP ONE (13:06)
[2020-03-13] MEDS ORDERED: DEXAMETHASONE SOD PHOSPHATE 10 MG/ML 1 ML VIAL IV ONE (13:07)
[2020-03-13] MEDS ORDERED: MIDAZOLAM 2 MG/2 ML VIAL ONE (13:12)
[2020-03-13] MEDS ORDERED: PROPOFOL 10 MG/ML 20 ML VIAL IV ONE (13:12)
[2020-03-13] MEDS ORDERED: LIDOCAINE 1% INJ 10MG/ML (20 ML MDV) ONE (13:12)
[2020-03-13] MEDS ORDERED: SUCCINYLCHOLINE CHLORIDE 100 MG/5 ML SYR IV ONE (13:12)
[2020-03-13] MEDS ORDERED: fentaNYL (PF) 50 MCG/ML 2 ML AMP ONE (13:12)
[2020-03-13] MEDS ORDERED: BUPIVACAIN-EPI 0.25%-1:200,000 30 ML VIAL SQ ONE (13:51)
[2020-03-13 14:09] LABS: Glucose,Whole Blood 116 mg/dL (75-99)
--- NOTE | 2020-03-13 14:19 | P.OP ---
Date of Procedure: 03/13/20 Description of Procedure: SURGEON: CHAS JOSE MD LABOR OPERATOR: NONE. PREOPERATIVE DIAGNOSES: 1. Complex back abscess with cellulitis 2. Uncontrolled diabetes type 2 3. Diabetic neuropathy of the feet 4. Depressive disorder 5. Previous history of methicillin sensitive staph aureus infection 6. Sepsis due to complex back abscess POSTOPERATIVE DIAGNOSES: 1. Complex left lower back abscess/cellulitis to the fascia, 10 x 16 cm, over 30 mL 2. History of tobacco abuse 3. Leukocytosis 4. Chronic skin infections 5. Previous history of methicillin sensitive staph aureus infection 6. Sepsis due to complex back abscess OPERATION: 1. Incision and drainage of complex subfascial lower back abscess, 10 x 16 cm, over 30 mL 2. Mechanical debridement using 3 L of pulse lavage of complex lower back abscess, subfascial ANESTHESIA: Gen. ESTIMATED BLOOD LOSS: 10 mL. SPECIMENS REMOVED: 1. Aerobic, anaerobic culture of back abscess COMPLICATIONS: None. INDICATIONS: The patient presents with acutely erythematous large abscess of the left lower back. CT obtained demonstrated extension to the subcutaneous tissue. He presented with tachycardia, fevers and leukocytosis with white count of over 20,000. Given the complexity and size of his abscess with sepsis, prompt surgica l intervention was advised. Benefits and risks were reviewed. Informed consent was obtained. DESCRIPTION OF PROCEDURE: Patient was brought into the operating room and laid in supine position. After adequate general induction, he was positioned prone. The back was prepped and draped in a standard sterile fashion. Attention was then brought to the complex left lower back mass measured 10 x 16 cm. Using a #15 blade a transverse incision was made along the skin tension lines, 4 cm followed by a skipped incision also 4 cm in size. A hemostat was used to actually dissect through the subcutaneous tissue to the fascia whereby the abscess was subfascial. Immediately, an egress of thomas purulence was found and aerobic and anaerobic cultures were obtained. Next suction was used whereby over 30 mL of thomas pus was aspirated from the wound. Using a pulse lavage of 3 L normal saline for mechanical debridement to the fascia, the deep subcutaneous pocket was copiously irrigated. Dilute hydrogen peroxide was used to irrigate the wound. A quarter inch Chica drain was tunneled underneath the skin flap and exited via the incisions and tacked to the skin using 2-0 nylon. The skin was cleansed and covered with 4 x 4 followed by ABD and 6 inch Medipore tape. The patient was awoken from anesthesia. All sponge and instrument counts were verified correct by surgical supervisor. The patient was transferred to postanesthesia care unit in stable condition and pain free. FINDINGS: 1. Subfascial complex back abscess, 10 x 16 cm 2. Approximately 30 mL of thomas purulence evacuated.
[2020-03-13 14:23] LABS: Glucose,Whole Blood 70 mg/dL (75-99)
[2020-03-13] MEDS ORDERED: LACTATED RINGERS 1,000 ML IV ONE ×2 (14:40)
[2020-03-13] MEDS: DAPTOmycin 500 MG in SODIUM CHLORIDE 0.9% 50 ML IVPB SCH (16:09)
[2020-03-13 17:28] LABS: Glucose,Whole Blood 133 mg/dL (75-99)
[2020-03-13 20:31] LABS: Glucose,Whole Blood 303 mg/dL (75-99)
[2020-03-13] MEDS: INSULIN DETEMIR (LEVEMIR) 100 UNIT/ML SYR SQ SCH (21:40)
--- NOTE | 2020-03-13 22:44 | P.PN ---
Progress Note - Text Progress Note Date: 03/13/20 Chief Complaint: Diarrhea, tired History of present complaint: This is a very pleasant 50-year-old patient was chronic stable medical conditions include diabetes mellitus type 2, peripheral neuropathy, hyperlipidemia and a prior history of MRSA the right foot. Patient does [employer] and works outside. Yesterday patient had 6 episodes of diarrhea and vomited about 3 times. Abdominal pain. No fever but did have some chills. Patient also was noticed to have a abscess in the left chest wall posteriorly. He felt something there for last for 5 days. Had gone to his family doctor and it I&D. Patient presents really weak tired rundown. Found to be in renal ubaldo lure. Given IV fluids. Feels a bit better this morning. The felt dizzy with standing up. Outside temperatures being the 90s while he was working and mowing lawn outside. Patient felt dehydrated. No further vomiting. No further diarrhea. Admitted with acute kidney injury from ATN, hypertension, left posterior chest wall abscess. Today-fitting a bit better. Taken to the OR per surgery. About 30-40 mL of pus was obtained. Cultures growing MRSA. Review of systems: Was done for constitutional, cardiovascular, GI, pulmonary. relevant finding as above Active Medications Acetaminophen (Tylenol Tab) 650 mg PO Q6HR PRN PRN Reason: Mild Pain or Fever > 100.5 Last Admin: 03/13/20 21:40 Dose: 650 mg Documented by: Al Hydroxide/Mg Hydroxide (Maalox) 15 ml PO Q6HR PRN PRN Reason: Indigestion Calcium Carbonate/Glycine (Tums) 1,000 mg PO Q4HR PRN PRN Reason: Dyspepsia Duloxetine HCl (Cymbalta) 60 mg PO DAILY ON [facility] OF [facility] Last Admin: 03/13/20 07:52 Dose: 60 mg Documented by: Enoxaparin Sodium (Lovenox) 40 mg SQ DAILY ON [facility] OF [facility] Last Admin: 03/13/20 07:52 Dose: 40 mg Documented by: Gabapentin (Neurontin) 300 mg PO TID ON LICENSE OF [facility] Last Admin: 03/13/20 21:40 Dose: 300 mg Documented by: Sodium Chloride (Saline 0.9%) 1,000 mls @ 150 mls/hr IV .Q6H40M ON LICENSE OF [facility] Last Admin: 03/13/20 12:50 Dose: Not Given Documented by: Daptomycin 500 mg/ Sodium (Chloride) 50 mls @ 100 mls/hr IVPB Q24H ON LICENSE OF [facility]; Protocol Last Admin: 03/13/20 16:09 Dose: 100 mls/hr Documented by: Insulin Aspart (Novolog) 0 unit SQ ACHS ON [facility] OF [facility]; Protocol Last Admin: 03/13/20 21:41 Dose: 5 unit Documented by: Insulin Detemir (Levemir) 46 unit SQ HS ON [facility] OF [facility] Last Admin: 03/13/20 21:40 Dose: 46 unit Documented by: Lactulose (Cephulac) 20 gm PO DAILY PRN PRN Reason: Constipation Magnesium Hydroxide (Milk Of Magnesia) 2,400 mg PO DAILY PRN PRN Reason: Constipation Naloxone HCl (Narcan) 0.2 mg IV Q2M PRN PRN Reason: Opioid Reversal Nicotine (Habitrol 21mg/24hr Patch) 1 patch TRANSDERM DAILY ON [facility] OF [facility] Last Admin: 03/13/20 07:49 Dose: Not Given Documented by: Ondansetron HCl (Zofran) 4 mg IVP Q8HR PRN PRN Reason: Nausea And Vomiting Pantoprazole Sodium (Protonix) 40 mg PO AC-BRKFST ON LICENSE OF [facility] Last Admin: 03/13/20 07:52 Dose: 40 mg Documented by: Temazepam (Restoril) 15 mg PO HS PRN PRN Reason: Insomnia Physical examination: VITAL SIGNS: 98.6, 97, 16, 152/72 5, 98% room air GENERAL: Sitting of age of the bed EYES: Pupils equal. Conjunctiva normal. HEENT: External appearance of nose and ears normal, oral cavity grossly normal. NECK: JVD not raised; masses not palpable. HEART: First and second heart sounds are normal; no edema. LUNGS: Respiratory rate normal; clear to auscultation. ABDOMEN: Soft, nontender, liver spleen not palpable, no masses palpable. PSYCH: Alert and oriented x3; mood and affect normal. CHEST wall: Left posterior chest wall shows an indurated area, with a central area having about with some pus and there. INVESTIGATIONS, reviewed in the clinical context: White count 14.7 hemoglobin 10.5 bun 25 creatinine 1.28 Accu-Cheks 74, 70, 133 Wound culture-presumptive MRSA Previous testing White count 20.3 hemoglobin 11 increased neutrophils potassium 4.5 bun 44 creatinine 2.30 blood glucose 331 EKG tracing personally reviewed by me-sinus rhythm heart rate of 101 Chest x-ray film personally reviewed by me-lung manzo clear Assessment: -Acute kidney injury possibly combination of ATN from being on medication the setting of prerenal from patient having nausea vomiting diarrhea also working out of the sun. Temperature was 90. Note also patient is on Motrin.-Improving -Hypotension from volume loss and dehydration-improving -Diabetes mellitus type 2 chronically on insulin uncontrolled with both hyper and hypoglycemia -Diabetic peripheral neuropathy -Hyperlipidemia -Left posterior chest wall abscess that was drained in the office still significantly indurated.-Cultures growing MRSA. Status post I&D today Plan: Continue with IV daptomycin IV fluids. Repeat labs in the morning. Dressing changes as per surgery. Potassium supplemented
[2020-03-14] MEDS: SODIUM CHLORIDE 0.9% 1,000 ML IV SCH ×5 (03:22→23:15)
[2020-03-14 06:52] LABS: Glucose,Whole Blood 126 mg/dL (75-99)
[2020-03-14] MEDS: INSULIN ASPART (NovoLOG) 100 UNIT/ML VIAL SQ SCH ×5 (06:57→20:44)
[2020-03-14 07:59] LABS: African American GFR (CKD) >90 (>60 ml/min/1.73 sqM); Anion Gap 5 mmol/L; Blood Urea Nitrogen 20 mg/dL (9-20); Calcium 7.5 mg/dL (8.4-10.2); Carbon Dioxide 25 mmol/L (22-30); Chloride 106 mmol/L (98-107); Glucose 144 mg/dL (74-99); Non-African American GFR(CKD) 88 (>60 ml/min/1.73 sqM); Potassium 4.6 mmol/L (3.5-5.1); Sodium 136 mmol/L (137-145)
[2020-03-14] MEDS: DULoxetine HCL 60 MG CAPSULE.DR PO SCH (08:26)
[2020-03-14] MEDS: PANTOPRAZOLE 40 MG TABLET PO SCH (08:26)
[2020-03-14] MEDS: ENOXAPARIN 40 MG/0.4 ML SYRINGE SQ SCH (08:27)
[2020-03-14] MEDS: GABAPENTIN 300 MG CAP PO SCH ×3 (08:27→20:43)
[2020-03-14] MEDS: NICOTINE 21MG/24HR PATCH TRANSDERM SCH (08:27)
[2020-03-14 11:27] LABS: Glucose,Whole Blood 205 mg/dL (75-99)
[2020-03-14] MEDS: DAPTOmycin 500 MG in SODIUM CHLORIDE 0.9% 50 ML IVPB SCH (12:46)
--- NOTE | 2020-03-14 13:31 | P.PN ---
Subjective Progress Note Date: 03/14/20 Principal diagnosis: Back abscess Patient doing well today. Pain is improved. No fevers. Objective - Vital Signs Vital signs: Vital Signs Temp 98 F 03/14/20 07:10 Pulse 86 03/14/20 07:10 Resp 16 03/14/20 07:10 BP 148/75 03/14/20 07:10 Pulse Ox 99 03/14/20 07:10 Intake & Output 03/13/20 03/14/20 03/14/20 18:59 06:59 18:59 Intake Total 1100 1000 650 Output Total 10 Balance 1090 1000 650 Intake: IV 1100 600 Sodium Chloride 0.9% 1, 600 000 ml @ 150 mls/hr IV . Q6H40M [facility] Rx#:[id number] Intake, IV Titration 1000 50 Amount DAPTOmycin 500 mg In 50 Sodium Chloride 0.9% 50 ml @ 100 mls/hr IVPB Q24H [facility] Rx#:[id number] Sodium Chloride 0.9% 1, 1000 000 ml @ 150 mls/hr IV . Q6H40M [facility] Rx#:[id number] Output: Estimated Blood Loss 10 Other: Voiding Method Toilet Urinal # Voids 1 1 - Exam Left lower back incision and drainage site noted, small amount of purulent drainage, outside dressings changed. - Labs CBC & Chem 7: 03/13/20 08:45 03/14/20 07:23 Labs: Abnormal Lab Results - Last 24 Hours (Table) 03/12/20 03/13/20 03/13/20 Range/Units 16:44 14:22 17:27 Sodium (137-145) mmol/L Glucose (74-99) mg/dL POC Glucose (mg/dL) 116 H 70 L 133 H (75-99) mg/dL Calcium (8.4-10.2) mg/dL 03/13/20 03/14/20 03/14/20 Range/Units 20:30 06:51 07:23 Sodium 136 L (137-145) mmol/L Glucose 144 H (74-99) mg/dL POC Glucose (mg/dL) 303 H 126 H (75-99) mg/dL Calcium 7.5 L (8.4-10.2) mg/dL 03/14/20 Range/Units 11:25 Sodium (137-145) mmol/L Glucose (74-99) mg/dL POC Glucose (mg/dL) 205 H (75-99) mg/dL Calcium (8.4-10.2) mg/dL Microbiology - Last 24 Hours (Table) 03/12/20 14:50 Gram Stain - Final Back Wound Culture - Final Methicillin resist S. aureus 03/13/20 13:00 Gram Stain - Preliminary Back Wound Culture - Preliminary 03/13/20 13:00 Anaerobic Culture - Preliminary Back 03/11/20 20:40 Blood Culture - Preliminary Blood No Growth after 48 hours Assessment and Plan (1) Abscess Narrative/Plan: Patient doing better today. Continue antibiotics at this time. Change outer dressing. May shower. Current Visit: Yes Status: Acute Code(s): L02.91 - CUTANEOUS ABSCESS, UNSPECIFIED SNOMED Code(s): 293829604
[2020-03-14] MEDS: IPRATROPIUM-ALBUTEROL 3 ML NEB INHALATION SCH ×2 (15:15→19:19)
[2020-03-14 16:57] LABS: Glucose,Whole Blood 283 mg/dL (75-99)
[2020-03-14 20:17] LABS: Glucose,Whole Blood 326 mg/dL (75-99)
[2020-03-14] MEDS ORDERED: INSULIN DETEMIR (LEVEMIR) 100 UNIT/ML SYR SQ SCH (21:00)
--- NOTE | 2020-03-14 22:42 | P.PN ---
Progress Note - Text Progress Note Date: 03/14/20 Chief Complaint: Diarrhea, tired History of present complaint: This is a very pleasant 50-year-old patient was chronic stable medical conditions include diabetes mellitus type 2, peripheral neuropathy, hyperlipidemia and a prior history of MRSA the right foot. Patient does [employer] and works outside. Yesterday patient had 6 episodes of diarrhea and vomited about 3 times. Abdominal pain. No fever but did have some chills. Patient also was noticed to have a abscess in the left chest wall posteriorly. He felt something there for last for 5 days. Had gone to his family doctor and it I&D. Patient presents really weak tired rundown. Found to be in renal ubaldo lure. Given IV fluids. Feels a bit better this morning. The felt dizzy with standing up. Outside temperatures being the 90s while he was working and mowing lawn outside. Patient felt dehydrated. No further vomiting. No further diarrhea. Admitted with acute kidney injury from ATN, hypertension, left posterior chest wall abscess.Taken to the OR - 30-40 mL of pus was obtained. Cultures growing MRSA. Today-feeling better. Has a drain at the abscess site. Not much coming out. No fever no chills. Feels better. Oral intake improved. Daughter is present. Review of systems: Was done for constitutional, cardiovascular, GI, pulmonary. relevant finding as above Active Medications Acetaminophen (Tylenol Tab) 650 mg PO Q6HR PRN PRN Reason: Mild Pain or Fever > 100.5 Last Admin: 03/13/20 21:40 Dose: 650 mg Documented by: Al Hydroxide/Mg Hydroxide (Maalox) 15 ml PO Q6HR PRN PRN Reason: Indigestion Albuterol/Ipratropium (Duoneb 0.5 Mg-3 Mg/3 Ml Soln) 3 ml INHALATION RT-TID [facility] Last Admin: 03/14/20 19:19 Dose: 3 ml Documented by: Calcium Carbonate/Glycine (Tums) 1,000 mg PO Q4HR PRN PRN Reason: Dyspepsia Duloxetine HCl (Cymbalta) 60 mg PO DAILY [facility] Last Admin: 03/14/20 08:26 Dose: 60 mg Documented by: Enoxaparin Sodium (Lovenox) 40 mg SQ DAILY [facility] Last Admin: 03/14/20 08:27 Dose: 40 mg Documented by: Gabapentin (Neurontin) 300 mg PO TID [facility] Last Admin: 03/14/20 20:43 Dose: 300 mg Documented by: Sodium Chloride (Saline 0.9%) 1,000 mls @ 150 mls/hr IV .Q6H40M [facility] Last Admin: 03/14/20 15:00 Dose: 150 mls/hr Documented by: Daptomycin 500 mg/ Sodium (Chloride) 50 mls @ 100 mls/hr IVPB Q24H [facility]; Protocol Last Admin: 03/14/20 12:46 Dose: 100 mls/hr Documented by: Insulin Aspart (Novolog) 0 unit SQ ACHS [facility]; Protocol Last Admin: 03/14/20 20:44 Dose: 6 unit Documented by: Insulin Aspart (Novolog) 8 unit SQ AC-TID [facility] Last Admin: 03/14/20 17:33 Dose: 8 unit Documented by: Insulin Detemir (Levemir) 54 unit SQ HS [facility] Last Admin: 03/14/20 20:43 Dose: 54 unit Documented by: Lactulose (Cephulac) 20 gm PO DAILY PRN PRN Reason: Constipation Magnesium Hydroxide (Milk Of Magnesia) 2,400 mg PO DAILY PRN PRN Reason: Constipation Naloxone HCl (Narcan) 0.2 mg IV Q2M PRN PRN Reason: Opioid Reversal Nicotine (Habitrol 21mg/24hr Patch) 1 patch TRANSDERM DAILY [facility] Last Admin: 03/14/20 08:27 Dose: 1 patch Documented by: Ondansetron HCl (Zofran) 4 mg IVP Q8HR PRN PRN Reason: Nausea And Vomiting Pantoprazole Sodium (Protonix) 40 mg PO AC-BRKFST [facility] Last Admin: 03/14/20 08:26 Dose: 40 mg Documented by: Temazepam (Restoril) 15 mg PO HS PRN PRN Reason: Insomnia Physical examination: VITAL SIGNS: 98, 86, 16, 140-75, 99% room air GENERAL: Sitting up, comfortable EYES: Pupils equal. Conjunctiva normal. HEENT: External appearance of nose and ears normal, oral cavity grossly normal. NECK: JVD not raised; masses not palpable. HEART: First and second heart sounds are normal; no edema. LUNGS: Respiratory rate normal; clear to auscultation. ABDOMEN: Soft, nontender, liver spleen not palpable, no masses palpable. PSYCH: Alert and oriented x3; mood and affect normal. CHEST wall: Left posterior chest wall shows has a drain at the abscess site INVESTIGATIONS, reviewed in the clinical context: Potassium 4.6 creatinine 1 Previous testing White count 14.7 hemoglobin 10.5 bun 25 creatinine 1.28 Accu-Cheks 74, 70, 133 Wound culture-presumptive MRSA Previous testing White count 20.3 hemoglobin 11 increased neutrophils potassium 4.5 bun 44 creatinine 2.30 blood glucose 331 EKG tracing personally reviewed by me-sinus rhythm heart rate of 101 Chest x-ray film personally reviewed by me-lung manzo clear Assessment: -Acute kidney injury possibly combination of ATN from being on medication the setting of prerenal from patient having nausea vomiting diarrhea also working out of the sun. Temperature was 90. Note also patient is on Motrin.-Corrected -Hypotension from volume loss and dehydration-improving -Diabetes mellitus type 2 chronically on insulin uncontrolled with both hyper and hypoglycemia -Diabetic peripheral neuropathy -Hyperlipidemia -Left posterior chest wall abscess that was drained in the office still significantly indurated.-Cultures growing MRSA. Status post I&D . Plan: Continue with IV daptomycin -DC IV fluids later today. Care was discussed the patient. We'll discuss with who made rounds today
[2020-03-14] MEDS: ACETAMINOPHEN TAB 325 MG TAB PO PRN (23:15)
[2020-03-15 06:49] LABS: Glucose,Whole Blood 57 mg/dL (75-99)
[2020-03-15] MEDS: INSULIN ASPART (NovoLOG) 100 UNIT/ML VIAL SQ SCH ×7 (06:57→20:47)
[2020-03-15 07:19] LABS: Glucose,Whole Blood 62 mg/dL (75-99)
[2020-03-15 07:21] LABS: Glucose,Whole Blood 88 mg/dL (75-99)
[2020-03-15 07:31] LABS: HCT 26.4 % (39.0-53.0); MCH 30.3 pg (25.0-35.0); MCHC 34.2 g/dL (31.0-37.0); MCV 88.6 fL (80.0-100.0); Mean Platelet Volume 8.2; Platelet Count 285 k/uL (150-450); RBC 2.98 m/uL (4.30-5.90); RDW 12.2 % (11.5-15.5); WBC 7.9 k/uL (3.8-10.6)
[2020-03-15 07:52] LABS: African American GFR (CKD) >90 (>60 ml/min/1.73 sqM); Anion Gap 4 mmol/L; Blood Urea Nitrogen 18 mg/dL (9-20); Calcium 7.7 mg/dL (8.4-10.2); Carbon Dioxide 27 mmol/L (22-30); Chloride 109 mmol/L (98-107); Non-African American GFR(CKD) 83 (>60 ml/min/1.73 sqM); Sodium 140 mmol/L (137-145)
[2020-03-15 08:01] LABS: Glucose 41 mg/dL (74-99)
[2020-03-15] MEDS: ENOXAPARIN 40 MG/0.4 ML SYRINGE SQ SCH (08:04)
[2020-03-15] MEDS: GABAPENTIN 300 MG CAP PO SCH ×3 (08:04→21:50)
[2020-03-15] MEDS: DULoxetine HCL 60 MG CAPSULE.DR PO SCH (08:04)
[2020-03-15] MEDS: PANTOPRAZOLE 40 MG TABLET PO SCH (08:04)
[2020-03-15] MEDS: NICOTINE 21MG/24HR PATCH TRANSDERM SCH (08:04)
[2020-03-15] MEDS: IPRATROPIUM-ALBUTEROL 3 ML NEB INHALATION SCH ×3 (08:25→19:25)
--- NOTE | 2020-03-15 10:41 | P.PN ---
Subjective Progress Note Date: 03/15/20 Principal diagnosis: Back abscess Patient doing better today. Pain still present although somewhat improved. Mild drainage. Cultures are showing MRSA. He is afebrile. Objective - Vital Signs Vital signs: Vital Signs Temp 97.9 F 03/15/20 06:55 Pulse 100 03/15/20 06:55 Resp 16 03/15/20 06:55 BP 166/83 03/15/20 06:55 Pulse Ox 92 L 03/15/20 06:55 Intake & Output 03/14/20 03/15/20 03/15/20 18:59 06:59 18:59 Intake Total 650 Balance 650 Intake: IV 600 Sodium Chloride 0.9% 1, 600 000 ml @ 150 mls/hr IV . Q6H40M [facility] Rx#:[id number] Intake, IV Titration 50 Amount DAPTOmycin 500 mg In 50 Sodium Chloride 0.9% 50 ml @ 100 mls/hr IVPB Q24H [facility] Rx#:[id number] Other: Voiding Method Toilet Urinal - Exam Back: Drain in place, small to moderate amount of purulent drainage, mild tenderness - Labs CBC & Chem 7: 03/15/20 06:40 03/15/20 06:40 Labs: Abnormal Lab Results - Last 24 Hours (Table) 03/14/20 03/14/20 03/14/20 Range/Units 11:25 16:55 20:16 RBC (4.30-5.90) m/uL Hgb (13.0-17.5) gm/dL Hct (39.0-53.0) % Chloride (98-107) mmol/L Glucose (74-99) mg/dL POC Glucose (mg/dL) 205 H 283 H 326 H (75-99) mg/dL Calcium (8.4-10.2) mg/dL 03/15/20 03/15/20 03/15/20 Range/Units 06:40 06:40 06:46 RBC 2.98 L (4.30-5.90) m/uL Hgb 9.0 L D (13.0-17.5) gm/dL Hct 26.4 L (39.0-53.0) % Chloride 109 H (98-107) mmol/L Glucose 41 L* (74-99) mg/dL POC Glucose (mg/dL) 57 L (75-99) mg/dL Calcium 7.7 L (8.4-10.2) mg/dL 03/15/20 Range/Units 07:00 RBC (4.30-5.90) m/uL Hgb (13.0-17.5) gm/dL Hct (39.0-53.0) % Chloride (98-107) mmol/L Glucose (74-99) mg/dL POC Glucose (mg/dL) 62 L (75-99) mg/dL Calcium (8.4-10.2) mg/dL Microbiology - Last 24 Hours (Table) 03/11/20 20:40 Blood Culture - Preliminary Blood No Growth after 72 hours 03/13/20 13:00 Gram Stain - Preliminary Back Wound Culture - Preliminary Presumptive MRSA 03/12/20 14:50 Anaerobic Culture - Preliminary Back 03/12/20 14:50 Gram Stain - Final Back Wound Culture - Final Methicillin resist S. aureus Assessment and Plan (1) Abscess Narrative/Plan: Patient doing better after recent incision and drainage. Still having enough pain that ongoing antibiotics advised. Anticipate discharge tomorrow. Current Visit: Yes Status: Acute Code(s): L02.91 - CUTANEOUS ABSCESS, UNSPECIFIED SNOMED Code(s): 986793218
[2020-03-15 11:49] LABS: Glucose,Whole Blood 89 mg/dL (75-99)
[2020-03-15] MEDS: HYDROcodone/APAP 5-325MG 1 EACH TAB PO PRN (12:46)
[2020-03-15] MEDS: SODIUM CHLORIDE 0.9% 1,000 ML IV SCH (12:47)
[2020-03-15] MEDS: NAPROXEN 250 MG TAB PO SCH ×2 (13:00→20:46)
[2020-03-15] MEDS: DAPTOmycin 500 MG in SODIUM CHLORIDE 0.9% 50 ML IVPB SCH (13:02)
[2020-03-15 16:51] LABS: Glucose,Whole Blood 152 mg/dL (75-99)
--- NOTE | 2020-03-15 17:56 | P.PN ---
Progress Note - Text Progress Note Date: 03/15/20 Chief Complaint: Diarrhea, tired History of present complaint: This is a very pleasant 50-year-old patient was chronic stable medical conditions include diabetes mellitus type 2, peripheral neuropathy, hyperlipidemia and a prior history of MRSA the right foot. Patient does [employer] and works outside. Yesterday patient had 6 episodes of diarrhea and vomited about 3 times. Abdominal pain. No fever but did have some chills. Patient also was noticed to have a abscess in the left chest wall posteriorly. He felt something there for last for 5 days. Had gone to his family doctor and it I&D. Patient presents really weak tired rundown. Found to be in renal ubaldo lure. Given IV fluids. Feels a bit better this morning. The felt dizzy with standing up. Outside temperatures being the 90s while he was working and mowing lawn outside. Patient felt dehydrated. No further vomiting. No further diarrhea. Admitted with acute kidney injury from ATN, hypertension, left posterior chest wall abscess.Taken to the OR - 30-40 mL of pus was obtained. Cultures growing MRSA. Has a drain in place. Today-patient became hypoglycemic. Some drained from the abscess site. Decreased redness over the skin. Some local pain.. Review of systems: Was done for constitutional, cardiovascular, GI, pulmonary. relevant finding as above Active Medications Acetaminophen (Tylenol Tab) 650 mg PO Q6HR PRN PRN Reason: Mild Pain or Fever > 100.5 Last Admin: 03/14/20 23:15 Dose: 650 mg Documented by: Hydrocodone Bitart/Acetaminophen ([place] 5-325) 1 each PO Q4HR PRN PRN Reason: Pain Last Admin: 03/15/20 12:46 Dose: 1 each Documented by: Al Hydroxide/Mg Hydroxide (Maalox) 15 ml PO Q6HR PRN PRN Reason: Indigestion Albuterol/Ipratropium (Duoneb 0.5 Mg-3 Mg/3 Ml Soln) 3 ml INHALATION RT-TID [facility] Last Admin: 03/15/20 11:34 Dose: Not Given Documented by: Calcium Carbonate/Glycine (Tums) 1,000 mg PO Q4HR PRN PRN Reason: Dyspepsia Duloxetine HCl (Cymbalta) 60 mg PO DAILY [facility] Last Admin: 03/15/20 08:04 Dose: 60 mg Documented by: Enoxaparin Sodium (Lovenox) 40 mg SQ DAILY [facility] Last Admin: 03/15/20 08:04 Dose: 40 mg Documented by: Gabapentin (Neurontin) 300 mg PO TID [facility] Last Admin: 03/15/20 15:55 Dose: 300 mg Documented by: Daptomycin 500 mg/ Sodium (Chloride) 50 mls @ 100 mls/hr IVPB Q24H [facility]; Protocol Last Admin: 03/15/20 13:02 Dose: 100 mls/hr Documented by: Insulin Aspart (Novolog) 0 unit SQ ACHS [facility]; Protocol Last Admin: 03/15/20 17:34 Dose: 1 unit Documented by: Insulin Aspart (Novolog) 8 unit SQ AC-TID [facility] Last Admin: 03/15/20 17:34 Dose: 8 unit Documented by: Insulin Detemir (Levemir) 45 unit SQ HS [facility] Lactulose (Cephulac) 20 gm PO DAILY PRN PRN Reason: Constipation Magnesium Hydroxide (Milk Of Magnesia) 2,400 mg PO DAILY PRN PRN Reason: Constipation Naloxone HCl (Narcan) 0.2 mg IV Q2M PRN PRN Reason: Opioid Reversal Naproxen (Naprosyn) 250 mg PO BID [facility] Last Admin: 03/15/20 13:00 Dose: 250 mg Documented by: Nicotine (Habitrol 21mg/24hr Patch) 1 patch TRANSDERM DAILY [facility] Last Admin: 03/15/20 08:04 Dose: Not Given Documented by: Ondansetron HCl (Zofran) 4 mg IVP Q8HR PRN PRN Reason: Nausea And Vomiting Pantoprazole Sodium (Protonix) 40 mg PO AC-BRKFST [facility] Last Admin: 03/15/20 08:04 Dose: 40 mg Documented by: Temazepam (Restoril) 15 mg PO HS PRN PRN Reason: Insomnia Last Admin: 03/14/20 23:15 Dose: 15 mg Documented by: Physical examination: VITAL SIGNS: 98.7, 88, 17, 166/83, 92% room air GENERAL: Sitting up, comfortable EYES: Pupils equal. Conjunctiva normal. HEENT: External appearance of nose and ears normal, oral cavity grossly normal. NECK: JVD not raised; masses not palpable. HEART: First and second heart sounds are normal; no edema. LUNGS: Respiratory rate normal; clear to auscultation. ABDOMEN: Soft, nontender, liver spleen not palpable, no masses palpable. PSYCH: Alert and oriented x3; mood and affect normal. CHEST wall: Left posterior chest wall - has a drain at the abscess site. Overlying redness decreased INVESTIGATIONS, reviewed in the clinical context: Accu-Cheks 57, 62, 88 Potassium 4.6 creatinine 1 Previous testing White count 14.7 hemoglobin 10.5 bun 25 creatinine 1.28 Accu-Cheks 74, 70, 133 Wound culture-presumptive MRSA Previous testing White count 20.3 hemoglobin 11 increased neutrophils potassium 4.5 bun 44 creatinine 2.30 blood glucose 331 EKG tracing personally reviewed by me-sinus rhythm heart rate of 101 Chest x-ray film personally reviewed by me-lung manzo clear Assessment: -Acute kidney injury possibly combination of ATN from being on medication the setting of prerenal from patient having nausea vomiting diarrhea also working out of the sun. Temperature was 90. Note also patient is on Motrin.-Corrected -Hypotension from volume loss and dehydration-improving -Diabetes mellitus type 2 chronically on insulin uncontrolled with both hyper and hypoglycemia -Diabetic peripheral neuropathy -Hyperlipidemia -Left posterior chest wall abscess that was drained in the office still significantly indurated.-Cultures growing MRSA. Status post I&D . Plan: -Continue with IV daptomycin. Consult ID to see if IV antibiotics will be needed. And naproxen for pain control and anti-inflammation. Does of Levemir decreased to 45 units. Repeat labs in the morning.
[2020-03-15] MEDS ORDERED: SODIUM CHLORIDE 0.9% 1,000 ML IV SCH (18:00)
[2020-03-15 20:31] LABS: Glucose,Whole Blood 146 mg/dL (75-99)
--- NOTE | 2020-03-15 23:53 | P.CONS ---
History of Present Illness - Reason for Consult Consult date: 03/15/20 Back abscess MRSA Requesting physician: Armando Pablo - Chief Complaint Back pain swelling and redness x few days - History of Present Illness Patient is a 50-year-old male presented to the ER at [facility] on 03/11/2020 with chief complaints of feeling weak and tired dizziness and a painful sore to his left lower back area with the patient says started as a pimple and has gradually increased in size over the next few days, to become more painful swollen and red, pain on arrival to the ER was throbbing almost 8 out of 10 and no radiation, patient on admission Hospital was afebrile, subsequent to have low-grade fever 100.3F, patient did have elevated white count of 20,000 admission, patient did have a CT suggestive of subcutaneous abscess, patient has been seen by surgery and the patient did have drainage of this abscess on 03/13/2020, blood culture has been negative, local wound culture: Positive with MRSA for which infectious disease was consulted today for further management of antibiotic patient has been treated with daptomycin since admission to the hospital by admitting physician Review of Systems Positive point has been mentioned in the HPI rest of the systems are negative Past Medical History Past Medical History: Diabetes Mellitus, Hyperlipidemia Additional Past Medical History / Comment(s): IDDM type II, neuropathy bilateral feet, gout History of Any Multi-Drug Resistant Organisms: MRSA Year Discovered:: 01/31/20 MDRO Source:: Right Foot Past Surgical History: Cholecystectomy Additional Past Surgical History / Comment(s): I&D scrotal abscess, I&D back abscess Past Anesthesia/Blood Transfusion Reactions: No Reported Reaction Past Psychological History: Anxiety Additional Psychological History / Comment(s): Pt resides with his aunt and uncle. He is independent. He works in [employer]. Smoking Status: Former smoker Past Alcohol Use History: Occasional Additional Past Alcohol Use History / Comment(s): Pt started smoking in 1987 and quit 2 weeks ago. Past Drug Use History: None Reported - Past Family History Mother Family Medical History: Diabetes Mellitus Father History Unknown: Yes Medications and Allergies Home Medications Medication Instructions Recorded Confirmed Type DULoxetine HCL [Cymbalta] 60 mg PO DAILY 11/02/19 03/11/20 History Gabapentin 800 mg PO TID 11/02/19 03/11/20 History Insulin Glargine,Hum.rec.anlog 60 unit SQ HS 11/02/19 03/11/20 History [Basaglar Kwikpen U-100] traZODone HCL 50 - 100 mg PO HS PRN 11/02/19 03/11/20 History Omeprazole [PriLOSEC] 40 mg PO AC-BRKFST #14 capsule.dr 11/04/19 03/11/20 Rx Nitroglycerin Sl Tabs [Nitrostat] 0.4 mg SUBLINGUAL Q5M PRN #30 tab 11/05/19 03/11/20 Rx Albuterol Sulfate [Ventolin HFA] 2 puff INHALATION RT-Q6H PRN 03/11/20 03/11/20 History Ibuprofen [Motrin] 800 mg PO TID-W/MEALS PRN 03/11/20 03/11/20 History Semaglutide [Ozempic] 1.5 ml SQ ARAUJO 03/11/20 03/11/20 History Allergies Allergy/AdvReac Type Severity Reaction Status Date / Time No Known Allergies Allergy Verified 03/11/20 22:57 Physical Exam Vitals: Vital Signs Temp Pulse Pulse Resp BP Pulse Ox 03/15/20 06:55 97.9 F 100 16 166/83 92 L 03/15/20 01:15 98.3 F 100 18 145/76 95 03/14/20 19:29 95 03/14/20 19:20 92 03/14/20 18:47 98.7 F 104 H 18 152/82 97 03/14/20 15:30 95 03/14/20 15:15 92 Intake and Output 03/15/20 03/15/20 03/15/20 06:59 14:59 22:59 Intake Total 650 Balance 650 Intake: Intake, IV Titration 650 Amount DAPTOmycin 500 mg In 50 Sodium Chloride 0.9% 50 ml @ 100 mls/hr IVPB Q24H [facility] Rx#:[id number] Sodium Chloride 0.9% 1, 600 000 ml @ 75 mls/hr IV . [id number] [facility] Rx#:[id number] GENERAL DESCRIPTION: Middle-aged male lying in bed, no distress. No tachypnea or accessory muscle of respiration use. HEENT: Shows Pallor , no scleral icterus. Oral mucous membrane is dry. No pharyngeal erythema or thrush NECK: Trachea central, no thyromegaly. LUNGS: Unlabored breathing. Clear to auscultation anteriorly. No wheeze or crackle. HEART: S1, S2, regular rate and rhythm. No loud murmur ABDOMEN: Soft, no tenderness , guarding or rigidity, no organomegaly EXTREMITIES: No edema of feet. SKIN: Left lower back did have an area of swelling and redness and induration with a [place] drain and purulent drainage NEUROLOGICAL: The patient is awake, alert, oriented x3, mood and affect normal. Results CBC & Chem 7: 03/15/20 06:40 03/15/20 06:40 Labs: Abnormal Lab Results - Last 24 Hours (Table) 03/14/20 03/14/20 03/15/20 Range/Units 16:55 20:16 06:40 RBC (4.30-5.90) m/uL Hgb (13.0-17.5) gm/dL Hct (39.0-53.0) % Chloride 109 H (98-107) mmol/L Glucose 41 L* (74-99) mg/dL POC Glucose (mg/dL) 283 H 326 H (75-99) mg/dL Calcium 7.7 L (8.4-10.2) mg/dL 03/15/20 03/15/20 03/15/20 Range/Units 06:40 06:46 07:00 RBC 2.98 L (4.30-5.90) m/uL Hgb 9.0 L D (13.0-17.5) gm/dL Hct 26.4 L (39.0-53.0) % Chloride (98-107) mmol/L Glucose (74-99) mg/dL POC Glucose (mg/dL) 57 L 62 L (75-99) mg/dL Calcium (8.4-10.2) mg/dL Microbiology - Last 24 Hours (Table) 03/11/20 20:40 Blood Culture - Preliminary Blood No Growth after 72 hours 03/13/20 13:00 Gram Stain - Preliminary Back Wound Culture - Preliminary Presumptive MRSA 03/12/20 14:50 Anaerobic Culture - Preliminary Back 03/12/20 14:50 Gram Stain - Final Back Wound Culture - Final Methicillin resist S. aureus Assessment and Plan Assessment: 1- patient with her left lower back MRSA abscess status post surgical drainage however the patient still has significant area of induration and cellulitis with concern for possible failure of oral antibiotics (1) Abscess of lower back Current Visit: Yes Status: Acute Code(s): L02.212 - CUTANEOUS ABSCESS OF BACK [ANY PART, EXCEPT BUTTOCK] SNOMED Code(s): 275999962 (2) MRSA (methicillin resistant staph aureus) culture positive Current Visit: Yes Status: Acute Code(s): Z22.322 - CARRIER OR SUSPECTED CARRIER OF METHICILLIN RESIS STAPH SNOMED Code(s): 485734725 (3) MRSA (methicillin resistant Staphylococcus aureus) infection Current Visit: Yes Status: Acute Code(s): A49.02 - METHICILLIN RESIS STAPH INFECTION, UNSP SITE SNOMED Code(s): 279713670 Plan: 1- patient is already on daptomycin for 5 days, he will continue his structure of switching more to vancomycin as planned on possible continuation of IV daptomycin outpatient setting with a daily dose to be more feasible and then the vancomycin possible twice a day 2- midline when Outpatient IV antibiotics is arranged We will follow on clinical condition and cultures to further adjust medication if needed Thank you for this consultation will follow this patient with you Time with Patient: Greater than 30
[2020-03-16 00:30] LABS: Glucose,Whole Blood 143 mg/dL (75-99)
[2020-03-16] MEDS: INSULIN DETEMIR (LEVEMIR) 100 UNIT/ML SYR SQ SCH ×2 (00:42→23:58)
[2020-03-16] MEDS: ACETAMINOPHEN TAB 325 MG TAB PO PRN (06:20)
[2020-03-16 07:12] LABS: Glucose,Whole Blood 97 mg/dL (75-99)
[2020-03-16] MEDS: INSULIN ASPART (NovoLOG) 100 UNIT/ML VIAL SQ SCH ×7 (07:15→21:23)
[2020-03-16] MEDS: IPRATROPIUM-ALBUTEROL 3 ML NEB INHALATION SCH ×3 (07:56→20:50)
[2020-03-16 07:57] LABS: HCT 27.9 % (39.0-53.0); MCH 28.7 pg (25.0-35.0); MCHC 32.3 g/dL (31.0-37.0); MCV 88.8 fL (80.0-100.0); Mean Platelet Volume 8.2; Platelet Count 223 k/uL (150-450); RBC 3.15 m/uL (4.30-5.90); RDW 12.4 % (11.5-15.5); WBC 9.1 k/uL (3.8-10.6)
--- NOTE | 2020-03-16 08:10 | P.PN ---
Subjective From records This is a very pleasant 50-year-old patient was chronic stable medical conditions include diabetes mellitus type 2, peripheral neuropathy, hyperlipidemia and a prior history of MRSA the right foot. 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 Yesterday patient had 6 episodes of diarrhea and vomited about 3 times. Abdominal pain. No fever but did have some chills. Patient also was noticed to have a abscess in the left chest wall posteriorly. He felt something there for last for 5 days. Had gone to his family doctor and it I&D. Patient presents really weak tired rundown. Found to be in renal failure. Given IV fluids. Feels a bit better this morning. The felt dizzy with standing up. Outside temperatures being the 90s while he was working and mowing lawn outside. Patient felt dehydrated. No further vomiting. No further diarrhea. Admitted with acute kidney injury from [facility], hypertension, left posterior chest wall abscess.Taken to the OR - 30-40 mL of pus was obtained. Cultures growing MRSA. Has a drain in place. Today-patient became hypoglycemic. Some drained from the abscess site. Decreased redness over the skin. Some local pain.. Subjective 03/16/2020 This is a pleasant 50 years old male with past medical history of diabetes mellitus. Presents with left sided flank abscess secondary to MRSA per culture. Currently on daptomycin and normal saline at 50 mL per hour, he has 2 small surgical wounds the left flank with surrounding erythema/redness and swelling and tenderness from cellulitis. There is some purulent discharge Also he had some gastroenteritis-like picture presentation with improvement, however patient complaining of from dyspnea and he is on 4 L oxygen this morning saturating 94%. He complains from blurred vision but states that he does not have his eyeglasses and he'll call his daughter to get it today. His blood pressure on the high side 172/83 and we will add Norvasc 5 mg daily. Labs today show normal WBC of 9.1K. Hemoglobin was stable at 9.0. Objective - Vital Signs Vital signs: Vital Signs Temp 97.8 F 03/16/20 07:00 Pulse 98 03/16/20 07:00 Resp 18 03/16/20 07:00 BP 172/83 03/16/20 07:00 Pulse Ox 94 L 03/16/20 07:00 Intake & Output 03/15/20 03/16/2020 18:59 06:59 18:59 Intake Total 650 Balance 650 Intake: Intake, IV Titration 650 Amount DAPTOmycin 500 mg In 50 Sodium Chloride 0.9% 50 ml @ 100 mls/hr IVPB Q24H [facility] Rx#:[id number] Sodium Chloride 0.9% 1, 600 000 ml @ 75 mls/hr IV . [id number] [facility] Rx#:[id number] Other: Voiding Method Toilet Urinal # Voids 1 - Exam GENERAL: The patient is alert and oriented x3, not in any acute distress. Well developed, well nourished. HEENT: Pupils are round and equally reacting to light. EOMI. No scleral icterus. No conjunctival pallor. Normocephalic, atraumatic. No pharyngeal erythema. No thyromegaly. CARDIOVASCULAR: S1 and S2 present. No murmurs, rubs, or gallops. PULMONARY: Chest is clear to auscultation, no wheezing or crackles. -ABDOMEN: Soft, nontender, nondistended, normoactive bowel sounds. No palpable organomegaly. Left flank cellulitis with 2 surgical wounds and some purulent discharge MUSCULOSKELETAL: No joint swelling or deformity. EXTREMITIES: No cyanosis, clubbing, or pedal edema. NEUROLOGICAL: Gross neurological examination did not reveal any focal deficits. SKIN: No rashes. no petechiae. - Labs CBC & Chem 7: 03/16/20 06:13 03/15/20 06:40 Labs: Abnormal Lab Results - Last 24 Hours (Table) 03/15/20 03/15/20 03/15/20 Range/Units 06:40 16:50 20:26 RBC (4.30-5.90) m/uL Hgb (13.0-17.5) gm/dL Hct (39.0-53.0) % Chloride 109 H (98-107) mmol/L Glucose 41 L* (74-99) mg/dL POC Glucose (mg/dL) 152 H 146 H (75-99) mg/dL Calcium 7.7 L (8.4-10.2) mg/dL 03/16/20 03/16/20 Range/Units 00:26 06:13 RBC 3.15 L (4.30-5.90) m/uL Hgb 9.0 L (13.0-17.5) gm/dL Hct 27.9 L (39.0-53.0) % Chloride (98-107) mmol/L Glucose (74-99) mg/dL POC Glucose (mg/dL) 143 H (75-99) mg/dL Calcium (8.4-10.2) mg/dL Microbiology - Last 24 Hours (Table) 03/11/20 20:40 Blood Culture - Preliminary Blood No Growth after 96 hours 03/13/20 13:00 Anaerobic Culture - Preliminary Back 03/13/20 13:00 Gram Stain - Final Back Wound Culture - Final Methicillin resist S. aureus Assessment and Plan Assessment: Diagnoses: -Left flank cellulitis and abscess, status post I&D secondary to MRSA. On IV antibiotic -Acute kidney injury possibly improved -Hypotension from volume loss and dehydration-improved -Diabetes mellitus type 2 chronically on insulin uncontrolled with both hyper and hypoglycemia -Diabetic peripheral neuropathy -Hypertension, start Norvasc -Hyperlipidemia Plan: This is a pleasant 50 years old male who presents with left flank cellulitis and abscess status post I&D secondary to MRSA. Currently on antibiotics per ID team. Currently on daptomycin normocephalic 50 mL/h. His creatinine is back to normal, keep gentle hydration. Start Norvasc for high blood pressure. We'll check chest x-ray for patient is a little dyspneic. Patient is advised to get his eyeglasses and he agrees. Labs and medication were reviewed.. Continue same treatment. Continue with symptomatic treatment. Resume home medication. Monitor lytes and vitals. DVT and GI prophylaxis. Further recommendations of the clinical course of the patient DVT prophylaxis: Subcutaneous Lovenox GI Prophylaxis: Ppi
[2020-03-16 08:14] LABS: ALT 62 U/L (4-49); AST 53 U/L (17-59); African American GFR (CKD) >90 (>60 ml/min/1.73 sqM); Albumin 2.6 g/dL (3.5-5.0); Alkaline Phosphatase 257 U/L (38-126); Anion Gap 6 mmol/L; Blood Urea Nitrogen 18 mg/dL (9-20); Calcium 7.9 mg/dL (8.4-10.2); Carbon Dioxide 23 mmol/L (22-30); Chloride 108 mmol/L (98-107); Glucose 106 mg/dL (74-99); Non-African American GFR(CKD) >90 (>60 ml/min/1.73 sqM); Potassium 4.5 mmol/L (3.5-5.1); Sodium 137 mmol/L (137-145); Total Bilirubin 0.3 mg/dL (0.2-1.3); Total Protein 5.7 g/dL (6.3-8.2)
[2020-03-16] MEDS: NAPROXEN 250 MG TAB PO SCH ×2 (08:35→21:24)
[2020-03-16] MEDS: GABAPENTIN 300 MG CAP PO SCH ×3 (08:35→21:23)
[2020-03-16] MEDS: PANTOPRAZOLE 40 MG TABLET PO SCH (08:35)
[2020-03-16] MEDS: DULoxetine HCL 60 MG CAPSULE.DR PO SCH (08:35)
[2020-03-16] MEDS: NICOTINE 21MG/24HR PATCH TRANSDERM SCH (08:35)
[2020-03-16] MEDS: ENOXAPARIN 40 MG/0.4 ML SYRINGE SQ SCH (08:35)
[2020-03-16] MEDS: amLODIPine 5 MG TAB PO SCH (08:36)
--- NOTE | 2020-03-16 08:38 | XR ---
EXAMINATION TYPE: XR chest 1V DATE OF EXAM: 03/16/2020 COMPARISON: Prior chest x-ray dated 03/11/2020 HISTORY: Shortness of breath TECHNIQUE: Single frontal view of the chest is obtained. FINDINGS: Bilateral mixed interstitial and airspace disease present which is developed in the lungs in the interval. No evident pneumothorax or pleural effusion. Lung lines are low. Heart size is likel y stable. Bones are unchanged. IMPRESSION: Correlate for pneumonia, edema, follow-up is recommended.
[2020-03-16 11:35] LABS: Glucose,Whole Blood 119 mg/dL (75-99)
[2020-03-16] MEDS ORDERED: VANCOMYCIN IV PER PHARMACY 1 EACH MISC MISCELLANE PRN (13:19)
--- NOTE | 2020-03-16 13:22 | P.PN ---
Subjective Progress Note Date: 03/16/20 CHIEF COMPLAINT: Back abscess HISTORY OF PRESENT ILLNESS: 50-year-old male who is status post incision and drainage of back abscess with Dr. Feng. Patient examined at the bedside with Dr. Feng. He states his pain is tolerable. Cultures are positive for MRSA. WBC 9.1. Hemoglobin 9.0. Vital signs stable. PHYSICAL EXAM: VITAL SIGNS: Reviewed GENERAL: Well-developed in no acute distress. HEENT: No sclera icterus. Extraocular movements grossly intact. Moist buccal mucosa. Head is atraumatic, normocephalic. Hears conversational speech. No nasal drainage. NECK: Supple without lymphadenopathy. CHEST: Non-labored respirations and equal bilateral excursions. CARDIOVASCULAR: Regular rate with regular rhythm. Palpable 2+ radial pulses. ABDOMEN: Soft. Nondistended. Nontender. MUSCULOSKELETAL: No clubbing or cyanosis. NEUROLOGIC: No focal or lateralizing signs. Cranial nerves II through XII grossly intact. PSYCH: Appropriate affect. Alert and oriented to person, place and time. SKIN: Well perfused. Good skin turgor. Dressing to back clean dry intact. ASSESSMENT: 1. Back abscess PLAN: -Continue daily dressing changes -Antibiotics per Dr. Milligan -Stable for discharge home from a surgical standpoint -Patient to follow up with Dr. Feng outpatient for removal of hubert drain -We will sign off. Please reconsult if needed Nurse practitioner note has been reviewed by physician. Signing provider agrees with the documented findings, assessment, and plan of care. Objective - Vital Signs Vital signs: Vital Signs Temp 97.8 F 03/16/20 07:00 Pulse 98 03/16/20 07:00 Resp 18 03/16/20 07:00 BP 172/83 03/16/20 07:00 Pulse Ox 94 L 03/16/20 07:00 Intake & Output 03/15/20 03/16/20 03/16/20 18:59 06:59 18:59 Intake Total 650 Balance 650 Intake: Intake, IV Titration 650 Amount DAPTOmycin 500 mg In 50 Sodium Chloride 0.9% 50 ml @ 100 mls/hr IVPB Q24H [facility] Rx#:[id number] Sodium Chloride 0.9% 1, 600 000 ml @ 75 mls/hr IV . [id number] [facility] Rx#:[id number] Other: Voiding Method Toilet Urinal # Voids 1 - Labs CBC & Chem 7: 03/17/20 07:19 03/17/20 07:19 Labs: Abnormal Lab Results - Last 24 Hours (Table) 03/15/20 03/15/20 03/15/20 Range/Units 06:40 16:50 20:26 RBC (4.30-5.90) m/uL Hgb (13.0-17.5) gm/dL Hct (39.0-53.0) % Chloride (98-107) mmol/L Glucose (74-99) mg/dL POC Glucose (mg/dL) 152 H 146 H (75-99) mg/dL Calcium (8.4-10.2) mg/dL ALT (4-49) U/L Alkaline Phosphatase (38-126) U/L Total Protein (6.3-8.2) g/dL Albumin (3.5-5.0) g/dL Procalcitonin 0.19 H (0.02-0.09) ng/mL 03/16/20 03/16/20 03/16/20 Range/Units 00:26 06:13 06:13 RBC 3.15 L (4.30-5.90) m/uL Hgb 9.0 L (13.0-17.5) gm/dL Hct 27.9 L (39.0-53.0) % Chloride 108 H (98-107) mmol/L Glucose 106 H (74-99) mg/dL POC Glucose (mg/dL) 143 H (75-99) mg/dL Calcium 7.9 L (8.4-10.2) mg/dL ALT 62 H (4-49) U/L Alkaline Phosphatase 257 H (38-126) U/L Total Protein 5.7 L (6.3-8.2) g/dL Albumin 2.6 L (3.5-5.0) g/dL Procalcitonin (0.02-0.09) ng/mL Microbiology - Last 24 Hours (Table) 03/11/20 20:40 Blood Culture - Preliminary Blood No Growth after 96 hours 03/13/20 13:00 Anaerobic Culture - Preliminary Back 03/13/20 13:00 Gram Stain - Final Back Wound Culture - Final Methicillin resist S. aureus
[2020-03-16] MEDS: VANCOMYCIN 1,500 MG in SODIUM CHLORIDE 0.9% 250 ML IVPB SCH (14:56)
[2020-03-16] MEDS: FUROSEMIDE 10 MG/ML 4 ML VIAL IV SCH (14:57)
[2020-03-16 16:27] LABS: Glucose,Whole Blood 256 mg/dL (75-99)
--- NOTE | 2020-03-16 19:37 | CONS ---
CONSULTATION DATE OF SERVICE: 03/16/2020 HISTORY: This is a 50-year-old white male with a longstanding history of diabetes, type 2, and complications which include diabetic retinopathy. The patient states that he has undergone laser treatments to the retina of both eyes and believes the treating physician is Dr. Kate. More recently, the patient states that he noticed some blurred vision while watching TV the last 2 days, and also states that this has been improving to the point that his visual acuity has almost returned back to his baseline level of what it was when he first was admitted to the hospital. Previous medical history is significant for elevated glucose levels. The patient states that they have reached levels over 1000, and more recently have been in the 300 to 400 range. He is currently admitted for treatment of a MRSA infection and has been undergoing IV antibiotics since being admitted last week. He is currently resting and comfortable, in no apparent distress. On exam, visual acuity measured 20/40 uncorrected bilaterally. Pupils were equal and reactive to light. There was no afferent defect. Extraocular movements were full in all gaze positions. On penlight exam, the lids were normal. The conjunctivae were quiet. Both corneas were clear. The anterior chambers were well formed. The irides were normal and the lenses appeared clear and centered. Undilated fundus exam revealed some moderate diabetic retinopathy in the posterior pole of each eye. IMPRESSION: Diabetic retinopathy: This patient's elevated glucose is likely creating a myopic shift, and the resultant change in his vision is likely due to the lens swelling. 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 MMODL / IJN: [id number] /
[2020-03-16 21:20] LABS: Glucose,Whole Blood 162 mg/dL (75-99)
--- NOTE | 2020-03-16 22:16 | PN ---
PROGRESS NOTE DATE OF SERVICE: 03/16/2020 REASON FOR FOLLOWUP: Left lower back MRSA abscess and cellulitis. INTERVAL HISTORY: The patient is currently afebrile, has been breathing comfortably. Denies having any chest pain or shortness of breath or cough. No nausea, vomiting or abdominal pain or any worsening pain to the back area. PHYSICAL EXAMINATION: His blood pressure is 119/67 with a pulse of 107, temperature 98.5. He is 94% on 4 L nasal cannula. General description is a middle-aged male lying in bed in no distress. RESPIRATORY SYSTEM: Unlabored breathing with decreased intensity of breath sounds. No wheeze. HEART: S1, S2. Regular rate and rhythm. EXAMINATION OF BACK AREA: Overall swelling, redness and drainage have decreased. LABS: Hemoglobin is 9, white count 9.1, creatinine 0.95. Wound culture with MRSA. Blood cultures have been negative. DIAGNOSTIC IMPRESSION AND PLAN: Patient with methicillin-resistant Staphylococcus aeruginosa left lower back abscess. The patient at this time is covered with daptomycin and will be transitioned to IV vancomycin with a plan for outpatient antibiotic for at least 2 weeks and close outpatient followup. Continue supportive care. MMODL / IJN: [id number] /
[2020-03-17] LABS: Glucose,Whole Blood 285 mg/dL (75-99)
[2020-03-17] MEDS: FUROSEMIDE 10 MG/ML 4 ML VIAL IV SCH ×2 (02:19→15:21)
[2020-03-17] MEDS: VANCOMYCIN 1,500 MG in SODIUM CHLORIDE 0.9% 250 ML IVPB SCH ×2 (02:20→15:21)
[2020-03-17] MEDS: HYDROcodone/APAP 5-325MG 1 EACH TAB PO PRN (02:21)
[2020-03-17] MEDS: NICOTINE 21MG/24HR PATCH TRANSDERM SCH (07:00)
[2020-03-17] MEDS: INSULIN ASPART (NovoLOG) 100 UNIT/ML VIAL SQ SCH ×7 (07:30→21:18)
[2020-03-17 07:31] LABS: Glucose,Whole Blood 143 mg/dL (75-99)
[2020-03-17] MEDS: ENOXAPARIN 40 MG/0.4 ML SYRINGE SQ SCH (07:34)
[2020-03-17] MEDS: DULoxetine HCL 60 MG CAPSULE.DR PO SCH (08:10)
[2020-03-17] MEDS: amLODIPine 5 MG TAB PO SCH (08:10)
[2020-03-17] MEDS: PANTOPRAZOLE 40 MG TABLET PO SCH (08:11)
[2020-03-17] MEDS: GABAPENTIN 300 MG CAP PO SCH ×3 (08:11→21:24)
[2020-03-17] MEDS: NAPROXEN 250 MG TAB PO SCH ×2 (08:11→21:24)
--- NOTE | 2020-03-17 08:16 | P.PN ---
Subjective From records This is a very pleasant 50-year-old patient was chronic stable medical conditions include diabetes mellitus type 2, peripheral neuropathy, hyperlipidemia and a prior history of MRSA the right foot. 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 Yesterday patient had 6 episodes of diarrhea and vomited about 3 times. Abdominal pain. No fever but did have some chills. Patient also was noticed to have a abscess in the left chest wall posteriorly. He felt something there for last for 5 days. Had gone to his family doctor and it I&D. Patient presents really weak tired rundown. Found to be in renal failure. Given IV fluids. Feels a bit better this morning. The felt dizzy with standing up. Outside temperatures being the 90s while he was working and mowing lawn outside. Patient felt dehydrated. No further vomiting. No further diarrhea. Admitted with acute kidney injury from ATN, hypertension, left posterior chest wall abscess.Taken to the OR - 30-40 mL of pus was obtained. Cultures growing MRSA. Has a drain in place. Today-patient became hypoglycemic. Some drained from the abscess site. Decreased redness over the skin. Some local pain.. Subjective 03/16/2020 This is a pleasant 50 years old male with past medical history of diabetes mellitus. Presents with left sided flank abscess secondary to MRSA per culture. Currently on daptomycin and normal saline at 50 mL per hour, he has 2 small surgical wounds the left flank with surrounding erythema/redness and swelling and tenderness from cellulitis. There is some purulent discharge Also he had some gastroenteritis-like picture presentation with improvement, however patient complaining of from dyspnea and he is on 4 L oxygen this morning saturating 94%. He complains from blurred vision but states that he does not have his eyeglasses and he'll call his daughter to get it today. His blood pressure on the high side 172/83 and we will add Norvasc 5 mg daily. Labs today show normal WBC of 9.1K. Hemoglobin was stable at 9.0. 03/17/2020 Patient is awake and alert, his to compare from dyspnea however his blurred vision is better, communications advisor evaluated him and found him to have blurred vision secondary to fluctuating sugar level and recommended outpatient follow-up with his communications advisor, patient states that he follow-up with [facility] as per patient he has a contact information and he agrees with instruction to call and make an appointment within 1 week. No chest pain. He still saturating in 90s at 4 L oxygen via nasal cannula. Repeat chest x-ray pending the final report however when I review the CXR by myself looks like distal pulmonary congestion. Given his smoking history (quit 2 weeks prior to hospitalization) we will start the patient on Pulmicort. Echocardiogram done on 12/2017 showing ejection fraction of 55-60% with borderline LVH, we will repeat echocardiogram. In the meantime patient remains on Lasix 40 mg twice daily, we'll add fluid restriction to 1200 ml per day. Infectious disease recommended IV vancomycin for 2 weeks, surgery on the case and recommended outpatient follow-up with Dr. Victoria in one week Review of systems CONSTITUTIONAL: No fever, no malaise, no fatigue. HEENT: No recent visual problems or hearing problems. Denied any sore throat. CARDIOVASCULAR: no palpitations, no syncope. PULMONARY: no hemoptysis. GASTROINTESTINAL: No diarrhea, no nausea, no vomiting, no abdominal pain. Normoactive bowel sounds. NEUROLOGICAL: No headaches, no weakness, no numbness. HEMATOLOGICAL: Denies any bleeding or petechiae. GENITOURINARY: Denies any burning micturition, frequency, or urgency. MUSCULOSKELETAL/RHEUMATOLOGICAL: Denies any joint pain, swelling, or any muscle pain. ENDOCRINE: Denies any polyuria or polydipsia. Active Medications Generic Name Dose Route Start Last Admin Trade Name Freq PRN Reason Stop Dose Admin Acetaminophen 650 mg 03/12/20 13:39 03/16/20 06:20 Tylenol Tab PO 650 mg Q6HR PRN Administration Mild Pain or Fever > 100.5 Hydrocodone Bitart/Acetaminophen 1 each 03/15/20 09:52 03/17/20 02:21 [place] 5-325 PO 1 each Q4HR PRN Administration Pain Al Hydroxide/Mg Hydroxide 15 ml 03/12/20 13:39 Maalox PO Q6HR PRN Indigestion Albuterol/Ipratropium 3 ml 03/14/20 13:00 03/16/20 20:50 Duoneb 0.5 Mg-3 Mg/3 Ml Soln INHALATION 3 ml RT-TID LUIZA Administration Amlodipine Besylate 5 mg 03/16/20 09:00 03/17/20 08:10 Norvasc PO 5 mg DAILY LUIZA Administration Budesonide 0.5 mg 03/17/20 20:00 Pulmicort INHALATION RT-BID [facility] Calcium Carbonate/Glycine 1,000 mg 03/12/20 13:39 Tums PO Q4HR PRN Dyspepsia Duloxetine HCl 60 mg 03/12/20 09:00 03/17/20 08:10 Cymbalta PO 60 mg DAILY LUIZA Administration Enoxaparin Sodium 40 mg 03/12/20 12:15 03/17/20 07:34 Lovenox SQ Not Given DAILY [facility] Furosemide 40 mg 03/16/20 15:00 03/17/20 02:19 Lasix IV 40 mg Q12H LUIZA Administration Gabapentin 300 mg 03/12/20 16:00 03/17/20 08:11 Neurontin PO 300 mg TID [facility] Administration Vancomycin HCl 1,500 mg/ 250 mls @ 125 mls/hr 03/16/20 14:00 03/17/20 02:20 Sodium Chloride IVPB 125 mls/hr Q12H LUIZA Administration Insulin Aspart 0 unit 03/12/20 07:30 03/17/20 08:11 Novolog SQ 1 unit ACHS [facility] Administration Protocol Insulin Aspart 8 unit 03/14/20 17:30 03/17/20 07:30 Novolog SQ Not Given AC-TID [facility] Insulin Detemir 45 unit 03/15/20 21:00 03/16/20 23:58 Levemir SQ 45 unit HS [facility] Administration Lactulose 20 gm 03/12/20 13:39 Cephulac PO DAILY PRN Constipation Magnesium Hydroxide 2,400 mg 03/12/20 13:39 Milk Of Magnesia PO DAILY PRN Constipation Naloxone HCl 0.2 mg 03/11/20 23:04 Narcan IV Q2M PRN Opioid Reversal Naproxen 250 mg 03/15/20 12:15 03/16/20 21:24 Naprosyn PO 250 mg BID [facility] Administration Nicotine 1 patch 03/12/20 13:45 03/17/20 07:00 Habitrol 21mg/24hr Patch TRANSDERM Not Given DAILY [facility] Ondansetron HCl 4 mg 03/11/20 23:04 Zofran IVP Q8HR PRN Nausea And Vomiting Pantoprazole Sodium 40 mg 03/12/20 07:30 03/17/20 08:11 Protonix PO 40 mg AC-[id number] [facility] Administration Temazepam 15 mg 03/12/20 13:39 03/14/20 23:15 Restoril PO 15 mg HS PRN Administration Insomnia Objective - Vital Signs Vital signs: Vital Signs Temp 98.9 F 03/17/20 07:00 Pulse 80 03/17/20 07:00 Resp 16 03/17/20 07:00 BP 160/83 03/17/20 07:00 Pulse Ox 96 03/17/20 07:00 Intake & Output 03/16/20 03/17/20 03/17/20 18:59 06:59 18:59 Intake Total 200 Output Total 700 Balance -700 200 Intake: Oral 200 Output: Urine 700 Other: # Voids 3 - Exam GENERAL: The patient is alert and oriented x3, not in any acute distress. Well developed, well nourished. HEENT: Pupils are round and equally reacting to light. EOMI. No scleral icterus. No conjunctival pallor. Normocephalic, atraumatic. No pharyngeal erythema. No thyromegaly. CARDIOVASCULAR: S1 and S2 present. No murmurs, rubs, or gallops. PULMONARY: Chest is clear to auscultation, no wheezing or crackles. -ABDOMEN: Soft, nontender, nondistended, normoactive bowel sounds. No palpable organomegaly. Left flank cellulitis with 2 surgical wounds and some purulent discharge MUSCULOSKELETAL: No joint swelling or deformity. EXTREMITIES: No cyanosis, clubbing, or pedal edema. NEUROLOGICAL: Gross neurological examination did not reveal any focal deficits. SKIN: No rashes. no petechiae. - Labs CBC & Chem 7: 03/16/20 06:13 03/16/20 06:13 Labs: Abnormal Lab Results - Last 24 Hours (Table) 03/15/20 03/16/20 03/16/20 Range/Units 06:40 06:13 06:13 Chloride 108 H (98-107) mmol/L Glucose 106 H (74-99) mg/dL POC Glucose (mg/dL) (75-99) mg/dL Calcium 7.9 L (8.4-10.2) mg/dL ALT 62 H (4-49) U/L Alkaline Phosphatase 257 H (38-126) U/L Total Protein 5.7 L (6.3-8.2) g/dL Albumin 2.6 L (3.5-5.0) g/dL Procalcitonin 0.19 H 0.11 H (0.02-0.09) ng/mL 03/16/20 03/16/20 03/16/20 Range/Units 11:33 16:25 21:16 Chloride (98-107) mmol/L Glucose (74-99) mg/dL POC Glucose (mg/dL) 119 H 256 H 162 H (75-99) mg/dL Calcium (8.4-10.2) mg/dL ALT (4-49) U/L Alkaline Phosphatase (38-126) U/L Total Protein (6.3-8.2) g/dL Albumin (3.5-5.0) g/dL Procalcitonin (0.02-0.09) ng/mL 03/16/20 03/17/20 Range/Units 23:58 07:14 Chloride (98-107) mmol/L Glucose (74-99) mg/dL POC Glucose (mg/dL) 285 H 143 H (75-99) mg/dL Calcium (8.4-10.2) mg/dL ALT (4-49) U/L Alkaline Phosphatase (38-126) U/L Total Protein (6.3-8.2) g/dL Albumin (3.5-5.0) g/dL Procalcitonin (0.02-0.09) ng/mL Microbiology - Last 24 Hours (Table) 03/11/20 20:40 Blood Culture - Preliminary Blood No Growth after 120 hours 03/12/20 14:50 Anaerobic Culture - Final Back Assessment and Plan Assessment: Diagnoses: -Left flank cellulitis and abscess, status post I&D secondary to MRSA. On IV an tibiotic -Acute kidney injury possibly improved back to normal -Hypotension from volume loss and dehydration-improved -Diabetes mellitus type 2 chronically on insulin uncontrolled with both hyper and hypoglycemia -Diabetic peripheral neuropathy -Hypertension, start Norvasc -Hyperlipidemia Plan: This is a pleasant 50 years old male who presents with left flank cellulitis and abscess status post I&D secondary to MRSA. Currently on antibiotics per ID team. Currently on IV vancomycin His creatinine is back to normal, keep gentle hydration. DC Norvasc and continue with IV Lasix. Fluid restriction. Follow- up chest x-ray and echocardiogram. Patient instructed to follow up with his communications advisor as an outpatient and he agrees Labs and medication were reviewed.. Continue same treatment. Continue with symptomatic treatment. Resume home medication. Monitor lytes and vitals. DVT and GI prophylaxis. Further recommendations of the clinical course of the estella lemus DVT prophylaxis: Subcutaneous Lovenox GI Prophylaxis: Ppi
[2020-03-17] MEDS: IPRATROPIUM-ALBUTEROL 3 ML NEB INHALATION SCH ×3 (08:23→19:55)
[2020-03-17 08:41] LABS: Basophils # (A) 0.1 k/uL (0-0.2); Basophils % (A) 1 %; Eosinophils # (A) 0.3 k/uL (0-0.7); Eosinophils % (A) 4 %; HCT 28.8 % (39.0-53.0); HGB 9.3 gm/dL (13.0-17.5); Lymphocytes # (A) 1.2 k/uL (1.0-4.8); Lymphocytes % (A) 15 %; MCH 28.7 pg (25.0-35.0); MCHC 32.3 g/dL (31.0-37.0); MCV 88.8 fL (80.0-100.0); Mean Platelet Volume 7.7; Monocytes # (A) 0.5 k/uL (0-1.0); Monocytes % (A) 6 %; Neutrophils % (A) 72 %; Platelet Count 385 k/uL (150-450); RBC 3.25 m/uL (4.30-5.90); RDW 12.6 % (11.5-15.5); WBC 8.3 k/uL (3.8-10.6)
[2020-03-17 08:46] LABS: Potassium 4.6 mmol/L (3.5-5.1)
[2020-03-17 08:47] LABS: Calcium 8.6 mg/dL (8.4-10.2)
--- NOTE | 2020-03-17 09:14 | XR ---
EXAMINATION TYPE: XR chest 1V DATE OF EXAM: 03/17/2020 COMPARISON: Prior chest x-ray 03/16/2020 HISTORY: Interstitial airspace disease, follow-up TECHNIQUE: Single frontal view of the chest is obtained. FINDINGS: Findings are similar to prior exam, lung lines are lower. There is subsegmental basilar at electatic change suspected. Difficult to exclude minimal effusion. There is no pneumothorax. Heart si ze is likely stable. IMPRESSION: Correlate for pneumonia,, interstitial edema, follow-up.
[2020-03-17] MEDS ORDERED: LIDOCAINE 1% INJ 10MG/ML (20 ML MDV) SQ ONE (09:25)
--- NOTE | 2020-03-17 10:32 | IR ---
EXAMINATION TYPE: IR cvc insert >=5 years DATE OF EXAM: 03/17/2020 COMPARISON: NONE CLINICAL HISTORY: Infection Needs long-term intravenous access for antibiotics. PROCEDURE: Hand hygiene obtained with soap and water and alcohol-based hand rub. After informed consent, the skin overlying the right basilic vein was localized with ultrasound and n oted to be compressible and patent. An ultrasound image was obtained and submitted on the patient's chart. The overlying skin was prepped and draped and Lidocaine was used for local anesthesia. A ski n [place] was made with a scalpel. Access was gained to the vein under ultrasound guidance with a 21 ga uge needle and a 0.018 inch wire was advanced. Access site was dilated with Peel-Away sheath and cat heter tailored to the appropriate length and advanced such that the distal tip is at the cavoatrial j unction. Spot image was obtained verifying placement. Catheter was fixed to the skin and a sterile dressing was placed following hemostasis. Catheter was aspirated and flushed with saline. Patient w as discharged in stable condition without complication. Maximal barrier technique is utilized. Ultra sound image is documented on the chart. Ultrasound used with sterile technique. Fluoro time and fluoroscopic images submitted to document procedure: 250 intraoperative images, 0.4 m inutes fluoroscopy time IMPRESSION: STATUS POST ULTRASOUND AND FLUOROSCOPIC GUIDED PICC LINE PLACEMENT, READY FOR USE. THIS PROCEDURE WAS PERFORMED BY THE UNDERSIGNED.
--- NOTE | 2020-03-17 10:54 | ECHOF ---
Referral Reason:Rule out heart disease MEASUREMENTS -------- HEIGHT: 170.2 cm WEIGHT: 83.0 kg BP: RVIDd: 2.4 cm (< 3.3) IVSd: 1.2 cm (0.6 - 1.1) LVIDd: 4.5 cm (3.9 - 5.3) LVPWd: 1.4 cm (0.6 - 1.1) IVSs: 1.6 cm LVIDs: 2.7 cm LVPWs: 2.1 cm LAESV Index (A-L): 24.33 ml/m Ao Diam: 3.0 cm (2.0 - 3.7) AV Cusp: 2.0 cm (1.5 - 2.6) LA Diam: 4.3 cm (2.7 - 3.8) MV EXCURSION: 19.892 mm (> 18.000) MV EF SLOPE: 133 mm/s (70 - 150) EPSS: 0.7 cm MV E T[place]anda: 1.08 m/s MV DecT: 200 ms MV A [place]: 1.01 m/s MV E/A Ratio: 1.07 AR PHT: 384 ms RAP: 5.00 mmHg RVSP: 19.94 mmHg FINDINGS -------- Sinus rhythm. This was a technically adequate study. The left ventricular size is normal. There is mild concentric left ventricular hypertrophy. Overa ll left ventricular systolic function is normal with, an EF between 55 - 60 %. The right ventricle is normal in size. Normal LA size by volume 22+/-6 ml/m2. The right atrial size is normal. The aortic valve is trileaflet and appears structurally normal. There is mild aortic regurgitation. The mitral valve is normal. Mild mitral regurgitation is present. The tricuspid valve appears structurally normal. Mild tricuspid regurgitation present. Right vent ricular systolic pressure is normal at < 35 mmHg. There is no pulmonic regurgitation present. The aortic root size is normal. Normal inferior vena cava with normal inspiratory collapse consistent with estimated right atrial pre ssure of 5 mmHg. There is no pericardial effusion. CONCLUSIONS -------- 1. There is mild concentric left ventricular hypertrophy. 2. Overall left ventricular systolic function is normal with, an EF between 55 - 60 %. 3. Normal LA size by volume 22+/-6 ml/m2. 4. There is mild aortic regurgitation. 5. Mild mitral regurgitation is present. 6. Mild tricuspid regurgitation present. 7. There is no pericardial effusion. [employer] ENFORCEMENT OFFICER: Johana Schneider RDCS
[2020-03-17 11:40] LABS: Glucose,Whole Blood 182 mg/dL (75-99)
[2020-03-17 17:10] LABS: Glucose,Whole Blood 262 mg/dL (75-99)
[2020-03-17] MEDS: BUDESONIDE 0.5 MG/2 ML NEBU INHALATION SCH (19:55)
[2020-03-17 20:55] LABS: Glucose,Whole Blood 129 mg/dL (75-99)
--- NOTE | 2020-03-17 21:50 | PN ---
PROGRESS NOTE DATE OF SERVICE: 03/17/2020 REASON FOR FOLLOWUP: Left lower back abscess, MRSA. INTERVAL HISTORY: The patient is currently afebrile, has been breathing comfortably. Denies having any chest pain or any cough. Overall pain and discomfort to the left lower back area has decreased. Drainage has decreased. No abdominal pain or diarrhea. PHYSICAL EXAMINATION: Blood pressure 143/80 with a pulse of 100, temperature 98.8. He is 93% on room air. General description is a middle-aged male up in the bed in no distress. RESPIRATORY SYSTEM: Unlabored breathing with decreased breath sounds at the base. No wheeze. HEART: S1, S2. Regular rate and rhythm. ABDOMEN: Soft. No tenderness. Left lower back swelling and redness have decreased. No drainage on the dressing. LABS: Hemoglobin 9.3, white count 8.3, creatinine 1.20. DIAGNOSTIC IMPRESSION AND PLAN: Patient with left lower back abscess, status post surgical drainage. Culture with MRSA. Blood culture has been negative. Patient is covered with vancomycin; to continue for another week, with close outpatient followup. MMODL / IJN: [id number] /
[2020-03-17 23:50] LABS: Glucose,Whole Blood 268 mg/dL (75-99)
[2020-03-17] MEDS: INSULIN DETEMIR (LEVEMIR) 100 UNIT/ML SYR SQ SCH (23:52)
[2020-03-17] MEDS: ACETAMINOPHEN TAB 325 MG TAB PO PRN (23:54)
[2020-03-18] MEDS: FUROSEMIDE 10 MG/ML 4 ML VIAL IV SCH ×2 (02:46→14:32)
[2020-03-18] MEDS: VANCOMYCIN 1,500 MG in SODIUM CHLORIDE 0.9% 250 ML IVPB SCH (02:46)
[2020-03-18 06:58] LABS: Glucose,Whole Blood 203 mg/dL (75-99)
[2020-03-18] MEDS: NICOTINE 21MG/24HR PATCH TRANSDERM SCH (07:06)
[2020-03-18] MEDS: ENOXAPARIN 40 MG/0.4 ML SYRINGE SQ SCH (07:08)
[2020-03-18] MEDS: NAPROXEN 250 MG TAB PO SCH ×2 (07:08→21:51)
[2020-03-18] MEDS: DULoxetine HCL 60 MG CAPSULE.DR PO SCH (07:09)
[2020-03-18] MEDS: INSULIN ASPART (NovoLOG) 100 UNIT/ML VIAL SQ SCH ×7 (07:09→21:51)
[2020-03-18] MEDS: GABAPENTIN 300 MG CAP PO SCH ×3 (07:09→21:51)
[2020-03-18] MEDS: PANTOPRAZOLE 40 MG TABLET PO SCH (07:09)
[2020-03-18 07:46] LABS: Calcium 8.2 mg/dL (8.4-10.2); Magnesium 1.7 mg/dL (1.6-2.3); Potassium 4.2 mmol/L (3.5-5.1)
[2020-03-18] MEDS: IPRATROPIUM-ALBUTEROL 3 ML NEB INHALATION SCH ×3 (08:07→19:30)
[2020-03-18] MEDS: BUDESONIDE 0.5 MG/2 ML NEBU INHALATION SCH ×2 (08:07→19:30)
[2020-03-18 10:43] VITALS: BMI 28.6
[2020-03-18 11:07] LABS: Glucose,Whole Blood 219 mg/dL (75-99)
[2020-03-18] MEDS ORDERED: guaiFENesin-DM 100-10MG/5ML 10 ML CUP PO PRN (12:24)
--- NOTE | 2020-03-18 12:37 | P.PN ---
Subjective From records This is a very pleasant 50-year-old patient was chronic stable medical conditions include diabetes mellitus type 2, peripheral neuropathy, hyperlipidemia and a prior history of MRSA the right foot. 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 Yesterday patient had 6 episodes of diarrhea and vomited about 3 times. Abdominal pain. No fever but did have some chills. Patient also was noticed to have a abscess in the left chest wall posteriorly. He felt something there for last for 5 days. Had gone to his family doctor and it I&D. Patient presents really weak tired rundown. Found to be in renal failure. Given IV fluids. Feels a bit better this morning. The felt dizzy with standing up. Outside temperatures being the 90s while he was working and mowing lawn outside. Patient felt dehydrated. No further vomiting. No further diarrhea. Admitted with acute kidney injury from ATN, hypertension, left posterior chest wall abscess.Taken to the OR - 30-40 mL of pus was obtained. Cultures growing MRSA. Has a drain in place. Today-patient became hypoglycemic. Some drained from the abscess site. Decreased redness over the skin. Some local pain.. Subjective 03/16/2020 This is a pleasant 50 years old male with past medical history of diabetes mellitus. Presents with left sided flank abscess secondary to MRSA per culture. Currently on daptomycin and normal saline at 50 mL per hour, he has 2 small surgical wounds the left flank with surrounding erythema/redness and swelling and tenderness from cellulitis. There is some purulent discharge Also he had some gastroenteritis-like picture presentation with improvement, however patient complaining of from dyspnea and he is on 4 L oxygen this morning saturating 94%. He complains from blurred vision but states that he does not have his eyeglasses and he'll call his daughter to get it today. His blood pressure on the high side 172/83 and we will add Norvasc 5 mg daily. Labs today show normal WBC of 9.1K. Hemoglobin was stable at 9.0. 03/17/2020 Patient is awake and alert, his to compare from dyspnea however his blurred vision is better, side gluer evaluated him and found him to have blurred vision secondary to fluctuating sugar level and recommended outpatient follow-up with his side gluer, patient states that he follow-up with [facility] as per patient he has a contact information and he agrees with instruction to call and make an appointment within 1 week. No chest pain. He still saturating in 90s at 4 L oxygen via nasal cannula. Repeat chest x-ray pending the final report however when I review the CXR by myself looks like distal pulmonary congestion. Given his smoking history (quit 2 weeks prior to hospitalization) we will start the patient on Pulmicort. Echocardiogram done on 12/2017 showing ejection fraction of 55-60% with borderline LVH, we will repeat echocardiogram. In the meantime patient remains on Lasix 40 mg twice daily, we'll add fluid restriction to 1200 ml per day. Infectious disease recommended IV vancomycin for 2 weeks, surgery on the case and recommended outpatient follow-up with Dr. Victoria in one week 03/18/2020 Patient is fully awake and oriented, he thinks he still have some breathing difficulty however his saturation 94% on room air. Patient also has central chest pain with coughing only, he has dry cough. Rest of Vitas looks stable. Creatinine still stable 1.1 and is normal, sugar control around 200, the proximal normal. Magnesium 1.7 echocardiogram" ejection fraction 55-60% with mild LVH, no significant valve heart disease Patient remains on vancomycin IV for MRSA Says infection in his left flank area, still on IV Lasix 40 mg twice daily. We will repeat chest x-ray, start Robitussin as needed Objective - Vital Signs Vital signs: Vital Signs Temp 98.2 F 03/18/20 07:00 Pulse 100 03/18/20 11:55 Resp 18 03/18/20 07:00 BP 153/80 03/18/20 07:00 Pulse Ox 94 L 03/18/20 07:00 Intake & Output 03/17/20 03/18/20 03/18/20 18:59 06:59 18:59 Intake Total 720 250 640 Output Total 600 Balance 720 -350 640 Weight 83.007 kg Intake: Intake, IV Titration 250 Amount Vancomycin 1,500 mg In 250 Sodium Chloride 0.9% 250 ml @ 125 mls/hr IVPB Q12H [facility] Rx#:[id number] Oral 720 640 Output: Urine 600 Other: Voiding Method Toilet Urinal # Voids 3 - Exam GENERAL: The patient is alert and oriented x3, not in any acute distress. Well developed, well nourished. HEENT: Pupils are round and equally reacting to light. EOMI. No scleral icterus. No conjunctival pallor. Normocephalic, atraumatic. No pharyngeal erythema. No thyromegaly. CARDIOVASCULAR: S1 and S2 present. No murmurs, rubs, or gallops. PULMONARY: Chest is clear to auscultation, no wheezing or crackles. -ABDOMEN: Soft, nontender, nondistended, normoactive bowel sounds. No palpable organomegaly. Left flank cellulitis with 2 surgical wounds and some purulent discharge MUSCULOSKELETAL: No joint swelling or deformity. EXTREMITIES: No cyanosis, clubbing, or pedal edema. NEUROLOGICAL: Gross neurological examination did not reveal any focal deficits. SKIN: No rashes. no petechiae. - Labs CBC & Chem 7: 03/17/20 07:19 03/18/20 06:55 Labs: Abnormal Lab Results - Last 24 Hours (Table) 03/17/20 03/17/20 03/17/20 Range/Units 17:07 20:54 23:49 Carbon Dioxide (22-30) mmol/L BUN (9-20) mg/dL Glucose (74-99) mg/dL POC Glucose (mg/dL) 262 H 129 H 268 H (75-99) mg/dL Calcium (8.4-10.2) mg/dL 03/18/20 03/18/20 03/18/20 Range/Units 06:55 06:57 11:06 Carbon Dioxide 33 H (22-30) mmol/L BUN 22 H (9-20) mg/dL Glucose 175 H (74-99) mg/dL POC Glucose (mg/dL) 203 H 219 H (75-99) mg/dL Calcium 8.2 L (8.4-10.2) mg/dL Microbiology - Last 24 Hours (Table) 03/13/20 13:00 Anaerobic Culture - Final Back 03/11/20 20:40 Blood Culture - Final Blood No Growth after 144 hours 03/13/20 13:00 Gram Stain - Final Back Wound Culture - Final Methicillin resist S. aureus Assessment and Plan Assessment: Diagnoses: -Left flank cellulitis and abscess, status post I&D secondary to MRSA. On IV antibiotic -Acute kidney injury possibly improved back to normal -Hypotension from volume loss and dehydration-improved -Diabetes mellitus type 2 chronically on insulin uncontrolled with both hyper and hypoglycemia -Diabetic peripheral neuropathy -Hypertension, start Norvasc -Hyperlipidemia Plan: This is a pleasant 50 years old male who presents with left flank cellulitis and abscess status post I&D secondary to MRSA. Currently on antibiotics per ID team. Currently on IV vancomycin His creatinine is back to normal, keep gentle hydration. DC Norvasc and continue with IV Lasix. Fluid restriction. Follow- up chest x-ray Patient instructed to follow up with his side gluer as an outpatient and he agrees Labs and medication were reviewed.. Continue same treatment. Continue with symptomatic treatment. Resume home medication. Monitor lytes and vitals. DVT and GI prophylaxis. Further recommendations of the clinical course of the patient DVT prophylaxis: Subcutaneous Lovenox GI Prophylaxis: Ppi
[2020-03-18] MEDS ORDERED: VANCOMYCIN TROUGH DUE 1 EACH MISC MISCELLANE ONE (13:00)
--- NOTE | 2020-03-18 13:02 | XR ---
EXAMINATION TYPE: XR chest 1V DATE OF EXAM: 03/18/2020 COMPARISON: Chest 03/17/2020 HISTORY: Abnormal chest x-ray TECHNIQUE: Single frontal view of the chest is obtained. FINDINGS: Findings are essentially stable. IMPRESSION: No interval change evident. Correlate for pneumonia.
[2020-03-18] MEDS: HYDROcodone/APAP 5-325MG 1 EACH TAB PO PRN (13:11)
[2020-03-18] MEDS: VANCOMYCIN 1,250 MG in SODIUM CHLORIDE 0.9% 250 ML IVPB SCH (14:32)
--- NOTE | 2020-03-18 15:51 | PN ---
PROGRESS NOTE DATE OF SERVICE: 03/18/2020 REASON FOR FOLLOWUP: Left lower back abscess and cellulitis. INTERVAL HISTORY: Patient is currently afebrile, has been breathing comfortably. Denies having any chest pain or shortness of breath. Occasional cough. No abdominal pain or pain to the left lower back area. PHYSICAL EXAMINATION: Blood pressure is 153/80 with a pulse of 0=94, temperature 98.2, he is 94% on room air. General description is a middle-aged male, up in the bed in no distress. RESPIRATORY SYSTEM: Unlabored breathing, with breath sounds at the base, no wheeze. HEART: S1-S2, regular rate and rhythm. ABDOMEN: Soft, no tenderness. Left lower back wound is currently dressed, no drainage on the dressing. LABS: BUN of 22, creatinine 1.15. DIAGNOSTIC IMPRESSION AND PLAN: 1. Patient with left lower back MRSA abscess, status post drainage. Currently covered with vancomycin in view of extensive infection. 2. Keep the patient on IV vancomycin 7 days and continue with supportive care. MMODL / IJN: [id number] /
[2020-03-18 16:36] LABS: Glucose,Whole Blood 287 mg/dL (75-99)
--- NOTE | 2020-03-18 17:23 | P.CNPUL ---
History of Present Illness Consult date: 03/18/20 Requesting physician: Ramy England Reason for consult: dyspnea, hypoxemia Chief complaint: acute hypoxic respiratory failure related to possibility of pneumonia History of present illness: 50-year-old white male patient of Dr. Meet Fontanez, with history of type 2 diabetes, poorly controlled, hyperlipidemia, previous history of MRSA infection in the right foot, and abscesses involving scrotal area and his back, was admitted to the hospital on a 03/11/2020 for sepsis related to left posterior chest the skin abscess status post outpatient I&D. Patient was hypotensive on admission, with blood pressure of 65 with 31, was fluid resuscitated, started on antibiotics, he required surgical debridement of the left posterior chest abscess and drainage of 30-40 mL of purulent material. Wound culture was positive for methicillin-resistant staph aureus. patient is covered with vancomycin, ID service is following. patient developed worsening shortness of breath on 03/16/2020. She required supplemental oxygen, his initial chest x-ray on admission on 03/16/2020 showed normal chest, where lungs. his chest x-ray on 03/16/2020 showed mixed interstitial and airspace disease and bilateral lungs, w ith the possibility of fluid overload, patient was started on IV diuretics. he has diabetes, follow-up chest x-ray on 03/17/2020 showing similar findings of interstitial and airspace disease in bilateral lungs. Today patient is off the oxygen, his sat 94% on room air, that his chest x-ray findings still show persistent interstitial and airspace disease bilaterally. Mild signs are stable, no fever or chills. he is on room air, being of dyspnea, and did have some central chest pain with coughing, which is nonproductive. nebulized bronchodilators were started, patient continues on IV Lasix. his lab work was reviewed, his CBC from yesterday show white blood cell count of 8.3, chief significantly improved from admission. hemoglobin is 9.3, serum sodium was 138, potassium is 4.2, CO2 is 33, BUN is 22, creatinine is 1.15. His pro calcitonin is trending down, it was 0.19 on 03/15/2020, and subsequently came down to 0.11. echocardiogram was completed showing preserved LV function, with an EF of 55- 60%, mild MR, and mild TR, no pericardial effusion, no pulmonary hypertension Review of Systems All systems: negative Constitutional: Reports fatigue, Reports weakness, Denies chills, Denies fever Eyes: denies blurred vision, denies pain Ears, nose, mouth and throat: Denies headache, Denies sore throat Cardiovascular: Reports chest pain, Denies shortness of breath Respiratory: Reports dyspnea, Denies cough Gastrointestinal: Denies abdominal pain, Denies diarrhea, Denies nausea, Denies vomiting Musculoskeletal: Denies myalgias Integumentary: Reports boils, Reports wounds, Denies pruritus, Denies rash Neurological: Denies numbness, Denies weakness Psychiatric: Denies anxiety, Denies depression Endocrine: Denies fatigue, Denies weight change Past Medical History Past Medical History: Diabetes Mellitus, Hyperlipidemia Additional Past Medical History / Comment(s): IDDM type II, neuropathy bilateral feet, gout History of Any Multi-Drug Resistant Organisms: MRSA Date of last positivie culture/infection: 03/13/20 MDRO Source:: MRSA BACK Past Surgical History: Cholecystectomy Additional Past Surgical History / Comment(s): I&D scrotal abscess, I&D back abscess Past Anesthesia/Blood Transfusion Reactions: No Reported Reaction Past Psychological History: Anxiety Additional Psychological History / Comment(s): Pt resides with his aunt and uncle. He is independent. He works in [employer]. Past Alcohol Use History: Occasional Additional Past Alcohol Use History / Comment(s): Pt started smoking in 1987 and quit 2 weeks ago. Past Drug Use History: None Reported - Past Family History Mother Family Medical History: Diabetes Mellitus Father History Unknown: Yes Medications and Allergies Home Medications Medication Instructions Recorded Confirmed Type DULoxetine HCL [Cymbalta] 60 mg PO DAILY 11/02/19 03/11/20 History Gabapentin 800 mg PO TID 11/02/19 03/11/20 History Insulin Glargine,Hum.rec.anlog 60 unit SQ HS 11/02/19 03/11/20 History [Basaglar Kwikpen U-100] traZODone HCL 50 - 100 mg PO HS PRN 11/02/19 03/11/20 History Omeprazole [PriLOSEC] 40 mg PO AC-BRKFST #14 capsule. 11/04/19 03/11/20 Rx Nitroglycerin Sl Tabs [Nitrostat] 0.4 mg SUBLINGUAL Q5M PRN #30 tab 11/05/19 03/11/20 Rx Albuterol Sulfate [Ventolin HFA] 2 puff INHALATION RT-Q6H PRN 03/11/20 03/11/20 History Ibuprofen [Motrin] 800 mg PO TID-W/MEALS PRN 03/11/20 03/11/20 History Semaglutide [Ozempic] 1.5 ml SQ ARAUJO 03/11/20 03/11/20 History Allergies Allergy/AdvReac Type Severity Reaction Status Date / Time No Known Allergies Allergy Verified 03/11/20 22:57 Physical Exam Vitals: Vital Signs Temp Pulse Pulse Pulse Resp BP Pulse Ox 03/18/20 15:00 98.3 F 105 H 18 152/80 94 L 03/18/20 11:55 100 03/18/20 11:45 96 03/18/20 08:24 92 03/18/20 08:07 92 03/18/20 07:00 98.2 F 94 18 153/80 94 L 03/18/20 01:08 98.2 F 98 18 134/71 93 L 03/18/20 00:00 18 03/17/20 20:29 96 03/17/20 20:00 99 18 03/17/20 19:56 100 03/17/20 19:47 98.8 F 99 18 143/80 93 L Intake and Output 03/18/20 03/18/20 03/18/20 06:59 14:59 22:59 Intake Total 250 640 Output Total 600 Balance -350 640 Intake: Intake, IV Titration 250 Amount Vancomycin 1,500 mg In 250 Sodium Chloride 0.9% 250 ml @ 125 mls/hr IVPB Q12H [facility] Rx#:[id number] Oral 640 Output: Urine 600 Other: Voiding Method Toilet Urinal # Voids 3 Weight 83.007 kg GENERAL EXAM: Alert, pleasant, 50-year-old white male, on room air, the pulse ox 94%, mildly dyspneic with exertion but appears comfortable in no apparent distress. HEAD: Normocephalic/atraumatic. EYES: Normal reaction of pupils, equal size. Conjunctiva pink, sclera white. NOSE: Clear with pink turbinates. THROAT: No erythema or exudates. NECK: No masses, no JVD, no thyroid enlargement, no adenopathy. CHEST: No chest wall deformity. Symmetrical expansion. LUNGS: Equal air entry with no crackles, wheeze, rhonchi or dullness. CVS: Regular rate and rhythm, normal S1 and S2, no gallops, no murmurs, no rubs ABDOMEN: Soft, nontender. No hepatosplenomegaly, normal bowel sounds, no guarding or rigidity. EXTREMITIES: No clubbing, no edema, no cyanosis, 2+ pulses and upper and lower extremities. MUSCULOSKELETAL: Muscle strength and tone normal. SPINE: No scoliosis or deformity SKIN: left flank cellulitis, 2 surg wounds, covered with dressings CENTRAL NERVOUS SYSTEM: Alert and oriented -3. No focal deficits, tone is normal in all 4 extremities. PSYCHIATRIC: Alert and oriented -3. Appropriate affect. Intact judgment and insight. Results - Laboratory Findings CBC and BMP: 03/17/20 07:19 03/18/20 06:55 PT/INR, D-dimer PT 10.2 sec (9.0-12.0) 03/11/20 20:40 INR 1.0 (<1.2) 03/11/20 20:40 Abnormal lab findings: Abnormal Labs 03/11/20 03/11/20 03/11/20 20:20 20:40 20:40 WBC 20.3 H RBC 3.85 L Hgb 11.0 L Hct 33.3 L Neutrophils # 17.9 H Sodium 131 L Potassium Chloride 97 L Carbon Dioxide BUN 44 H Creatinine 2.30 H Glucose 341 H POC Glucose (mg/dL) 373 H Calcium 8.3 L AST 16 L ALT Alkaline Phosphatase 127 H Total Protein Albumin 3.3 L Amylase <30 L Procalcitonin 03/12/20 03/12/20 03/12/20 00:06 06:44 06:44 WBC 19.5 H RBC 3.73 L Hgb 11.0 L Hct 32.5 L Neutrophils # 16.0 H Sodium Potassium Chloride Carbon Dioxide BUN 42 H Creatinine 1.88 H Glucose 53 L POC Glucose (mg/dL) 327 H Calcium 7.9 L AST 14 L ALT Alkaline Phosphatase Total Protein 6.2 L Albumin 3.0 L Amylase Procalcitonin 03/12/20 03/12/20 03/12/20 06:54 07:29 11:52 WBC RBC Hgb Hct Neutrophils # Sodium Potassium Chloride Carbon Dioxide BUN Creatinine Glucose POC Glucose (mg/dL) 69 L 264 H 134 H Calcium AST ALT Alkaline Phosphatase Total Protein Albumin Amylase Procalcitonin 03/12/20 03/12/20 03/13/20 16:44 20:34 05:49 WBC RBC Hgb Hct Neutrophils # Sodium Potassium Chloride Carbon Dioxide BUN Creatinine Glucose POC Glucose (mg/dL) 116 H 104 H 55 L Calcium AST ALT Alkaline Phosphatase Total Protein Albumin Amylase Procalcitonin 03/13/20 03/13/20 03/13/20 06:00 06:26 07:38 WBC RBC Hgb Hct Neutrophils # Sodium 136 L Potassium 3.3 L Chloride Carbon Dioxide BUN 25 H Creatinine 1.28 H Glucose 64 L POC Glucose (mg/dL) 147 H 112 H Calcium 7.6 L AST ALT Alkaline Phosphatase Total Protein Albumin Amylase Procalcitonin 03/13/20 03/13/20 03/13/20 08:45 12:05 14:22 WBC 14.7 H RBC 3.63 L Hgb 10.5 L Hct 31.9 L Neutrophils # 12.1 H Sodium Potassium Chloride Carbon Dioxide BUN Creatinine Glucose POC Glucose (mg/dL) 74 L 70 L Calcium AST ALT Alkaline Phosphatase Total Protein Albumin Amylase Procalcitonin 03/13/20 03/13/20 03/14/20 17:27 20:30 06:51 WBC RBC Hgb Hct Neutrophils # Sodium Potassium Chloride Carbon Dioxide BUN Creatinine Glucose POC Glucose (mg/dL) 133 H 303 H 126 H Calcium AST ALT Alkaline Phosphatase Total Protein Albumin Amylase Procalcitonin 03/14/20 03/14/20 03/14/20 07:23 11:25 16:55 WBC RBC Hgb Hct Neutrophils # Sodium 136 L Potassium Chloride Carbon Dioxide BUN Creatinine Glucose 144 H POC Glucose (mg/dL) 205 H 283 H Calcium 7.5 L AST ALT Alkaline Phosphatase Total Protein Albumin Amylase Procalcitonin 03/14/20 03/15/20 03/15/20 20:16 06:40 06:40 WBC RBC Hgb Hct Neutrophils # Sodium Potassium Chloride 109 H Carbon Dioxide BUN Creatinine Glucose 41 L* POC Glucose (mg/dL) 326 H Calcium 7.7 L AST ALT Alkaline Phosphatase Total Protein Albumin Amylase Procalcitonin 0.19 H 03/15/20 03/15/20 03/15/20 06:40 06:46 07:00 WBC RBC 2.98 L Hgb 9.0 L D Hct 26.4 L Neutrophils # Sodium Potassium Chloride Carbon Dioxide BUN Creatinine Glucose POC Glucose (mg/dL) 57 L 62 L Calcium AST ALT Alkaline Phosphatase Total Protein Albumin Amylase Procalcitonin 03/15/20 03/15/20 03/16/20 16:50 20:26 00:26 WBC RBC Hgb Hct Neutrophils # Sodium Potassium Chloride Carbon Dioxide BUN Creatinine Glucose POC Glucose (mg/dL) 152 H 146 H 143 H Calcium AST ALT Alkaline Phosphatase Total Protein Albumin Amylase Procalcitonin 03/16/20 03/16/20 03/16/20 06:13 06:13 06:13 WBC RBC 3.15 L Hgb 9.0 L Hct 27.9 L Neutrophils # Sodium Potassium Chloride 108 H Carbon Dioxide BUN Creatinine Glucose 106 H POC Glucose (mg/dL) Calcium 7.9 L AST ALT 62 H Alkaline Phosphatase 257 H Total Protein 5.7 L Albumin 2.6 L Amylase Procalcitonin 0.11 H 03/16/20 03/16/20 03/16/20 11:33 16:25 21:16 WBC RBC Hgb Hct Neutrophils # Sodium Potassium Chloride Carbon Dioxide BUN Creatinine Glucose POC Glucose (mg/dL) 119 H 256 H 162 H Calcium AST ALT Alkaline Phosphatase Total Protein Albumin Amylase Procalcitonin 03/16/20 03/17/20 03/17/20 23:58 07:14 07:19 WBC RBC 3.25 L Hgb 9.3 L Hct 28.8 L Neutrophils # Sodium Potassium Chloride Carbon Dioxide BUN Creatinine Glucose POC Glucose (mg/dL) 285 H 143 H Calcium AST ALT Alkaline Phosphatase Total Protein Albumin Amylase Procalcitonin 03/17/20 03/17/20 03/17/20 07:19 11:33 17:07 WBC RBC Hgb Hct Neutrophils # Sodium Potassium Chloride Carbon Dioxide BUN 22 H Creatinine Glucose 128 H POC Glucose (mg/dL) 182 H 262 H Calcium AST ALT Alkaline Phosphatase Total Protein Albumin Amylase Procalcitonin 03/17/20 03/17/20 03/18/20 20:54 23:49 06:55 WBC RBC Hgb Hct Neutrophils # Sodium Potassium Chloride Carbon Dioxide 33 H BUN 22 H Creatinine Glucose 175 H POC Glucose (mg/dL) 129 H 268 H Calcium 8.2 L AST ALT Alkaline Phosphatase Total Protein Albumin Amylase Procalcitonin 03/18/20 03/18/20 06:57 11:06 WBC RBC Hgb Hct Neutrophils # Sodium Potassium Chloride Carbon Dioxide BUN Creatinine Glucose POC Glucose (mg/dL) 203 H 219 H Calcium AST ALT Alkaline Phosphatase Total Protein Albumin Amylase Procalcitonin - Diagnostic Findings Chest x-ray: report reviewed, image reviewed Additional studies: echocardiogram reviewed Assessment and Plan Plan: assessment: #1. Acute hypoxic respiratory failure and secondary shortness of breath possibly related to pneumonia, consider perioperative aspiration, or possibility of ARDS #2. left flank cellulitis and abscess, status post surgical I&D, secondary to MRSA, covered with vancomycin #3. Acute kidney injury related to hypotension, and ATN #4. Septic shock related to MRSA wound infection #5. Diabetes mellitus type 2, poorly controlled with diabetic retinopathy #6. Hypertension #7. Hyperlipidemia #8. Previous history of MRSA infections and skin abscess in the groin Plan: Continue antibiotics per ID service recommendations, chest x-ray has been reviewed still showing persistent interstitial and airspace infiltrates, consider perioperative aspiration pneumonia, or ARDS. Echocardiogram results have been reviewed, patient has preserved LV function, we can consider cutting back the diuretics patient is developing volume contraction alkalosis. Will continue same medical treatment, patient is feeling better overall, breathings easier, he is now on room air. will repeat chest X-ray in the morning. will follow I performed a history & physical examination of the patient and discussed their management with my nurse practitioner, Angela Rucker. I reviewed the nurse practitioner's note and agree with the documented findings and plan of care. Lung sounds are positive for diminished breath sounds. The findings and the impression was discussed with the patient. I attest to the documentation by the nurse practitioner. Time with Patient: Greater than 30
[2020-03-18 21:23] LABS: Glucose,Whole Blood 230 mg/dL (75-99)
[2020-03-18 23:26] LABS: Glucose,Whole Blood 267 mg/dL (75-99)
[2020-03-18] MEDS: INSULIN DETEMIR (LEVEMIR) 100 UNIT/ML SYR SQ SCH (23:35)
[2020-03-19] MEDS: VANCOMYCIN 1,250 MG in SODIUM CHLORIDE 0.9% 250 ML IVPB SCH ×2 (01:47→14:40)
[2020-03-19] MEDS: HYDROcodone/APAP 5-325MG 1 EACH TAB PO PRN (04:12)
[2020-03-19 06:53] LABS: Glucose,Whole Blood 85 mg/dL (75-99)
[2020-03-19] MEDS: INSULIN ASPART (NovoLOG) 100 UNIT/ML VIAL SQ SCH ×7 (07:05→21:12)
--- NOTE | 2020-03-19 07:48 | XR ---
EXAMINATION TYPE: XR chest 2V DATE OF EXAM: 03/19/2020 COMPARISON: Prior chest x-ray 03/18/2020 HISTORY: Abnormal chest x-ray TECHNIQUE: Frontal and lateral views of the chest are obtained. FINDINGS: Left-sided PICC line shows the distal tip in the right atrium. Bilateral airspace disease is present, there is no evident pneumothorax or pleural effusion. Heart size is stable. IMPRESSION: Correlate for pneumonia, edema.
[2020-03-19] MEDS: BUDESONIDE 0.5 MG/2 ML NEBU INHALATION SCH ×2 (07:51→18:55)
[2020-03-19] MEDS: IPRATROPIUM-ALBUTEROL 3 ML NEB INHALATION SCH ×3 (07:51→18:55)
[2020-03-19] MEDS: ENOXAPARIN 40 MG/0.4 ML SYRINGE SQ SCH (08:25)
[2020-03-19] MEDS: DULoxetine HCL 60 MG CAPSULE.DR PO SCH (08:26)
[2020-03-19] MEDS: GABAPENTIN 300 MG CAP PO SCH ×3 (08:26→21:12)
[2020-03-19] MEDS: NICOTINE 21MG/24HR PATCH TRANSDERM SCH (08:26)
[2020-03-19] MEDS: FUROSEMIDE 10 MG/ML 4 ML VIAL IV SCH (08:26)
[2020-03-19] MEDS: NAPROXEN 250 MG TAB PO SCH ×2 (08:26→21:12)
[2020-03-19] MEDS: PANTOPRAZOLE 40 MG TABLET PO SCH (08:26)
[2020-03-19 08:56] LABS: African American GFR (CKD) >90 (>60 ml/min/1.73 sqM); Anion Gap 5 mmol/L; Blood Urea Nitrogen 23 mg/dL (9-20); Calcium 8.5 mg/dL (8.4-10.2); Carbon Dioxide 33 mmol/L (22-30); Chloride 101 mmol/L (98-107); Glucose 60 mg/dL (74-99); Magnesium 1.9 mg/dL (1.6-2.3); Non-African American GFR(CKD) 86 (>60 ml/min/1.73 sqM); Potassium 4.4 mmol/L (3.5-5.1); Sodium 139 mmol/L (137-145)
--- NOTE | 2020-03-19 09:36 | P.PN ---
Subjective From records This is a very pleasant 50-year-old patient was chronic stable medical conditions include diabetes mellitus type 2, peripheral neuropathy, hyperlipidemia and a prior history of MRSA the right foot. 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 Yesterday patient had 6 episodes of diarrhea and vomited about 3 times. Abdominal pain. No fever but did have some chills. Patient also was noticed to have a abscess in the left chest wall posteriorly. He felt something there for last for 5 days. Had gone to his family doctor and it I&D. Patient presents really weak tired rundown. Found to be in renal failure. Given IV fluids. Feels a bit better this morning. The felt dizzy with standing up. Outside temperatures being the 90s while he was working and mowing lawn outside. Patient felt dehydrated. No further vomiting. No further diarrhea. Admitted with acute kidney injury from ATN, hypertension, left posterior chest wall abscess.Taken to the OR - 30-40 mL of pus was obtained. Cultures growing MRSA. Has a drain in place. Today-patient became hypoglycemic. Some drained from the abscess site. Decreased redness over the skin. Some local pain.. Subjective 03/16/2020 This is a pleasant 50 years old male with past medical history of diabetes mellitus. Presents with left sided flank abscess secondary to MRSA per culture. Currently on daptomycin and normal saline at 50 mL per hour, he has 2 small surgical wounds the left flank with surrounding erythema/redness and swelling and tenderness from cellulitis. There is some purulent discharge Also he had some gastroenteritis-like picture presentation with improvement, however patient complaining of from dyspnea and he is on 4 L oxygen this morning saturating 94%. He complains from blurred vision but states that he does not have his eyeglasses and he'll call his daughter to get it today. His blood pressure on the high side 172/83 and we will add Norvasc 5 mg daily. Labs today show normal WBC of 9.1K. Hemoglobin was stable at 9.0. 03/17/2020 Patient is awake and alert, his to compare from dyspnea however his blurred vision is better, balance assembler evaluated him and found him to have blurred vision secondary to fluctuating sugar level and recommended outpatient follow-up with his balance assembler, patient states that he follow-up with [facility] as per patient he has a contact information and he agrees with instruction to call and make an appointment within 1 week. No chest pain. He still saturating in 90s at 4 L oxygen via nasal cannula. Repeat chest x-ray pending the final report however when I review the CXR by myself looks like distal pulmonary congestion. Given his smoking history (quit 2 weeks prior to hospitalization) we will start the patient on Pulmicort. Echocardiogram done on 12/2017 showing ejection fraction of 55-60% with borderline LVH, we will repeat echocardiogram. In the meantime patient remains on Lasix 40 mg twice daily, we'll add fluid restriction to 1200 ml per day. Infectious disease recommended IV vancomycin for 2 weeks, surgery on the case and recommended outpatient follow-up with Dr. Victoria in one week 03/18/2020 Patient is fully awake and oriented, he thinks he still have some breathing difficulty however his saturation 94% on room air. Patient also has central chest pain with coughing only, he has dry cough. Rest of Vitas looks stable. Creatinine still stable 1.1 and is normal, sugar control around 200, the proximal normal. Magnesium 1.7 echocardiogram" ejection fraction 55-60% with mild LVH, no significant valve heart disease Patient remains on vancomycin IV for MRSA Says infection in his left flank area, still on IV Lasix 40 mg twice daily. We will repeat chest x-ray, start Robitussin as needed 03/19/2020 Patient still complaining from dyspnea although he saturating 92% on room air this morning, yesterday we checked exertional oxygen level and it was okay, we'll go neutropenic today. Pulmonary input is appreciated there is possibility of perioperative pneumonia v ersus ARDS versus aspiration pneumonia. Patient denies vomiting in the recent few days however he says that is been choking and he feels that food stuck in his throat, therefore we going to call for swallow evaluation and will discuss with infectious disease of the need to adjust his antibiotic coverage. Repeat chest x-ray this morning showing the same changes although when I review it there might be slight improvement BNP stable and sugar controlled. He still have some blurry vision, already evaluated by balance assembler, he plans to follow up with his balance assembler upon discharge Objective - Vital Signs Vital signs: Vital Signs Temp 97.8 F 03/19/20 07:00 Pulse 100 03/19/20 08:05 Resp 18 03/19/20 07:00 BP 152/79 03/19/20 07:00 Pulse Ox 92 L 03/19/20 07:00 Intake & Output 03/18/20 03/19/20 03/19/20 18:59 06:59 18:59 Intake Total 640 472 Balance 640 472 Weight 83.007 kg Intake: Intake, IV Titration 250 Amount Vancomycin 1,250 mg In 250 Sodium Chloride 0.9% 250 ml @ 125 mls/hr IVPB Q12H [facility] Rx#:[id number] Oral 640 222 Other: Voiding Method Toilet Toilet Urinal Urinal # Voids 3 1 - Exam GENERAL: The patient is alert and oriented x3, not in any acute distress. Well developed, well nourished. HEENT: Pupils are round and equally reacting to light. EOMI. No scleral icterus. No conjunctival pallor. Normocephalic, atraumatic. No pharyngeal erythema. No thyromegaly. CARDIOVASCULAR: S1 and S2 present. No murmurs, rubs, or gallops. PULMONARY: Chest is clear to auscultation, no wheezing or crackles. -ABDOMEN: Soft, nontender, nondistended, normoactive bowel sounds. No palpable organomegaly. Left flank cellulitis with 2 surgical wounds and some purulent discharge MUSCULOSKELETAL: No joint swelling or deformity. EXTREMITIES: No cyanosis, clubbing, or pedal edema. NEUROLOGICAL: Gross neurological examination did not reveal any focal deficits. SKIN: No rashes. no petechiae. - Labs CBC & Chem 7: 03/17/20 07:19 03/19/20 07:32 Labs: Abnormal Lab Results - Last 24 Hours (Table) 03/18/20 03/18/20 03/18/20 Range/Units 11:06 16:34 21:21 Carbon Dioxide (22-30) mmol/L BUN (9-20) mg/dL Glucose (74-99) mg/dL POC Glucose (mg/dL) 219 H 287 H 230 H (75-99) mg/dL 03/18/20 03/19/20 Range/Units 23:25 07:32 Carbon Dioxide 33 H (22-30) mmol/L BUN 23 H (9-20) mg/dL Glucose 60 L (74-99) mg/dL POC Glucose (mg/dL) 267 H (75-99) mg/dL Assessment and Plan Assessment: Diagnoses: -Left flank cellulitis and abscess, status post I&D secondary to MRSA. On IV antibiotic - Acute hypoxic respiratory failure (improved ) related to pneumonia, vs perioperative aspiration, or possibility of ARDS -Acute kidney injury possibly improved back to normal -Hypotension from volume loss and dehydration-improved -Diabetes mellitus type 2 chronically on insulin uncontrolled with both hyper and hypoglycemia -Diabetic peripheral neuropathy -Hypertension, start Norvasc -Hyperlipidemia Plan: This is a pleasant 50 years old male who presents with left flank cellulitis and abscess status post I&D secondary to MRSA. Currently on antibiotics per ID tea m. Currently on IV vancomycin His creatinine is back to normal, keep gentle hydration. DC Norvasc and continue with IV Lasix. Fluid restriction. Follow- up chest x-ray Check swallow evaluation, follow-up recommendation by the pulmonary and infectious disease Patient instructed to follow up with his balance assembler as an outpatient and he agrees Labs and medication were reviewed.. Continue same treatment. Continue with symptomatic treatment. Resume home medication. Monitor lytes and vitals. DVT and GI prophylaxis. Further recommendations of the clinical course of the patient DVT prophylaxis: Subcutaneous Lovenox GI Prophylaxis: Ppi
[2020-03-19 11:18] LABS: Glucose,Whole Blood 88 mg/dL (75-99)
--- NOTE | 2020-03-19 12:56 | P.PN ---
Subjective Progress Note Date: 03/19/20 Principal diagnosis: Acute hypoxic respiratory failure related to possibility of pneumonia 50-year-old white male patient of Dr. Meet Fontanez, with history of type 2 diabetes, poorly controlled, hyperlipidemia, previous history of MRSA infection in the right foot, and abscesses involving scrotal area and his back, was admitted to the hospital on a 03/11/2020 for sepsis related to left posterior chest the skin abscess status post outpatient I&D. Patient was hypotensive on admission, with blood pressure of 65 with 31, was fluid resuscitated, started on antibiotics, he required surgical debridement of the left posterior chest abscess and drainage of 30-40 mL of purulent material. Wound culture was positive for methicillin-resistant staph aureus. patient is covered with [facility], ID service is following. patient developed worsening shortness of breath on 03/16/2020. She required supplemental oxygen, his initial chest x-ray on admission on 03/16/2020 showed normal chest, where lungs. his chest x-ray on 03/16/2020 showed mixed interstitial and airspace disease and bilateral lungs, with the possibility of fluid overload, patient was started on IV diuretics. he has diabetes, follow-up chest x-ray on 03/17/2020 showing similar findings of interstitial and airspace disease in bilateral lungs. Today patient is off the oxygen, his sat 94% on room air, that his chest x-ray findings still show persistent interstitial and airspace disease bilaterally. Mild signs are stable, no fever or chills. he is on room air, being of dyspnea, and did have some central chest pain with coughing, which is nonproductive. nebulized bronchodilators were started, patient continues on IV Lasix. his lab work was reviewed, his CBC from yesterday show white blood cell count of 8.3, chief significantly improved from admission. hemoglobin is 9.3, serum sodium was 138, potassium is 4.2, CO2 is 33, BUN is 22, creatinine is 1.15. His pro calcitonin is trending down, it was 0.19 on 03/15/2020, and subsequently came down to 0.11. echocardiogram was completed showing preserved LV function, with an EF of 55- 60%, mild MR, and mild TR, no pericardial effusion, no pulmonary hypertension On 03/19/2020 patient seen in follow-up on general medical surgical floor. He is awake and alert, in no acute distress, remainder pulse ox is 92%, he states he still feels somewhat short of breath especially with exertion, but appears to be in no acute distress, lung sounds reveal scattered inspiratory crackles in bilateral mid to lower lungs posteriorly. And is going for a swallow evaluation , he does report some swallowing issues. We'll cut back his Lasix to once daily, is difficult to estimate his net fluid balance, as there is no accurate intake and output recorded. Patient is voiding without any issues, he continues on vancomycin for MRSA related abscess on his left flank. He has [address] in the surgical incision on his left flank area which is covered with the large ABG dressing, and there is still some limited purulent material around the [place] insertion site. Patient has been afebrile, hemodynamically stable. Today's chest x-ray still shows bilateral airspace disease, stable in appearance. Objective - Vital Signs Vital signs: Vital Signs Temp 97.8 F 03/19/20 07:00 Pulse 96 03/19/20 11:15 Resp 18 03/19/20 07:00 BP 152/79 03/19/20 07:00 Pulse Ox 92 L 03/19/20 07:00 Intake & Output 03/18/20 03/19/20 03/19/20 18:59 06:59 18:59 Intake Total 640 472 Balance 640 472 Weight 83.007 kg Intake: Intake, IV Titration 250 Amount Vancomycin 1,250 mg In 250 Sodium Chloride 0.9% 250 ml @ 125 mls/hr IVPB Q12H [facility] Rx#:[id number] Oral 640 222 Other: Voiding Method Toilet Toilet Urinal Urinal # Voids 3 1 - Exam GENERAL EXAM: Alert, pleasant, 50-year-old white male, on room air, the pulse ox 92%, mildly dyspneic with exertion but appears comfortable in no apparent distress. HEAD: Normocephalic/atraumatic. EYES: Normal reaction of pupils, equal size. Conjunctiva pink, sclera white. NOSE: Clear with pink turbinates. THROAT: No erythema or exudates. NECK: No masses, no JVD, no thyroid enlargement, no adenopathy. CHEST: No chest wall deformity. Symmetrical expansion. LUNGS: Equal air entry with mild inspiratory crackles over bilateral mid to lower lungs posteriorly CVS: Regular rate and rhythm, normal S1 and S2, no gallops, no murmurs, no rubs ABDOMEN: Soft, nontender. No hepatosplenomegaly, normal bowel sounds, no guarding or rigidity. EXTREMITIES: No clubbing, no edema, no cyanosis, 2+ pulses and upper and lower extremities. MUSCULOSKELETAL: Muscle strength and tone normal. SPINE: No scoliosis or deformity SKIN: left flank cellulitis, 2 surg wounds on his left flank area with 2 [place] drains with some limited purulent material from around the [place] insertion site, covered with dressings CENTRAL NERVOUS SYSTEM: Alert and oriented -3. No focal deficits, tone is normal in all 4 extremities. PSYCHIATRIC: Alert and oriented -3. Appropriate affect. Intact judgment and insight. - Labs CBC & Chem 7: 03/17/20 07:19 03/19/20 07:32 Labs: Abnormal Lab Results - Last 24 Hours (Table) 03/18/20 03/18/20 03/18/20 Range/Units 16:34 21:21 23:25 Carbon Dioxide (22-30) mmol/L BUN (9-20) mg/dL Glucose (74-99) mg/dL POC Glucose (mg/dL) 287 H 230 H 267 H (75-99) mg/dL 03/19/20 Range/Units 07:32 Carbon Dioxide 33 H (22-30) mmol/L BUN 23 H (9-20) mg/dL Glucose 60 L (74-99) mg/dL POC Glucose (mg/dL) (75-99) mg/dL Assessment and Plan Plan: assessment: #1. Acute hypoxic respiratory failure and secondary shortness of breath possibly related to pneumonia, consider perioperative aspiration, or possibility of ARDS #2. left flank cellulitis and abscess, status post surgical I&D, secondary to MRSA, covered with vancomycin #3. Acute kidney injury related to hypotension, and ATN #4. Septic shock related to MRSA wound infection #5. Diabetes mellitus type 2, poorly controlled with diabetic retinopathy #6. Hypertension #7. Hyperlipidemia #8. Previous history of MRSA infections and skin abscess in the groin Plan: Today's chest x-ray shows relatively stable appearance of bilateral airspace disease, clinically patient is stable, room air pulse ox is 92%, he is going for swallow evaluation today, continue with current antibiotic coverage, vital signs are stable, patient is afebrile, no significant cough or phlegm production. Co ntinue with once daily dose of Lasix. Patient can be considered for discharge home today on antibiotics, he will need outpatient follow-up in the office with Dr. Faulkner in the 7-10 days for repeat chest x-ray I performed a history & physical examination of the patient and discussed their management with my nurse practitioner, Angela Rucker. I reviewed the nurse practitioner's note and agree with the documented findings and plan of care. Lung sounds are positive for diminished breath sounds. The findings and the impression was discussed with the patient. I attest to the documentation by the nurse practitioner. Time with Patient: Less than 30
[2020-03-19 16:41] LABS: Glucose,Whole Blood 276 mg/dL (75-99)
[2020-03-19 21:05] LABS: Glucose,Whole Blood 151 mg/dL (75-99)
--- NOTE | 2020-03-19 23:23 | PN ---
PROGRESS NOTE DATE OF SERVICE: 03/19/2020 REASON FOR FOLLOWUP: Left posterior back abscess and cellulitis. INTERVAL HISTORY: The patient is currently afebrile. He is breathing comfortably. Complaining of some cough but no sputum production. No nausea, no vomiting. No abdominal pain or diarrhea. PHYSICAL EXAMINATION: Blood pressure is 162/88 with a pulse of 98, temperature 98.1. He is 96% on room air. General description is a middle-aged male up in the bed in no distress. RESPIRATORY SYSTEM: Unlabored breathing with decreased breath sounds at the base. No wheeze. HEART: S1, S2. Regular rate and rhythm. ABDOMEN: Soft. No tenderness. EXAMINATION OF THE BACK AREA: Swelling and redness have largely improved. LABS: BUN of 23, creatinine 1.02. DIAGNOSTIC IMPRESSION AND PLAN: Patient with a back abscess, status post surgical drainage. Culture with MRSA. Patient is covered with vancomycin; to continue and monitor his clinical course closely. Clinically doubt aspiration pneumonia in this patient. Continue supportive care. MMODL / IJN: [id number] /
[2020-03-19 23:27] LABS: Glucose,Whole Blood 199 mg/dL (75-99)
[2020-03-19] MEDS: INSULIN DETEMIR (LEVEMIR) 100 UNIT/ML SYR SQ SCH (23:42)
[2020-03-20] MEDS: VANCOMYCIN 1,250 MG in SODIUM CHLORIDE 0.9% 250 ML IVPB SCH ×2 (02:10→14:36)
[2020-03-20] MEDS: HYDROcodone/APAP 5-325MG 1 EACH TAB PO PRN ×2 (02:39→07:06)
[2020-03-20 05:39] VITALS: RESP 18
[2020-03-20] MEDS: PANTOPRAZOLE 40 MG TABLET PO SCH (07:06)
[2020-03-20] MEDS: BUDESONIDE 0.5 MG/2 ML NEBU INHALATION SCH (07:23)
[2020-03-20] MEDS: IPRATROPIUM-ALBUTEROL 3 ML NEB INHALATION SCH ×2 (07:23→11:38)
[2020-03-20 08:02] LABS: Glucose,Whole Blood 134 mg/dL (75-99)
[2020-03-20] MEDS: DULoxetine HCL 60 MG CAPSULE.DR PO SCH (08:10)
[2020-03-20] MEDS: FUROSEMIDE 10 MG/ML 4 ML VIAL IV SCH (08:10)
[2020-03-20] MEDS: NICOTINE 21MG/24HR PATCH TRANSDERM SCH (08:10)
[2020-03-20] MEDS: ENOXAPARIN 40 MG/0.4 ML SYRINGE SQ SCH (08:10)
[2020-03-20] MEDS: GABAPENTIN 300 MG CAP PO SCH ×2 (08:10→16:09)
[2020-03-20] MEDS: NAPROXEN 250 MG TAB PO SCH (08:10)
[2020-03-20] MEDS: INSULIN ASPART (NovoLOG) 100 UNIT/ML VIAL SQ SCH ×4 (08:11→12:32)
[2020-03-20 08:27] LABS: African American GFR (CKD) >90 (>60 ml/min/1.73 sqM); Anion Gap 3 mmol/L; Blood Urea Nitrogen 27 mg/dL (9-20); Calcium 8.5 mg/dL (8.4-10.2); Carbon Dioxide 33 mmol/L (22-30); Chloride 101 mmol/L (98-107); Glucose 98 mg/dL (74-99); Magnesium 1.9 mg/dL (1.6-2.3); Non-African American GFR(CKD) 82 (>60 ml/min/1.73 sqM); Sodium 137 mmol/L (137-145)
[2020-03-20 08:36] VITALS: BP 153/79; TEMP 97.5
--- NOTE | 2020-03-20 10:10 | XR ---
EXAMINATION TYPE: XR chest 1V portable DATE OF EXAM: 03/20/2020 COMPARISON: 03/19/2020 HISTORY: Chest pain TECHNIQUE: Single frontal view of the chest is obtained. FINDINGS: Scattered infiltrates are seen bilaterally with slight interval improvement suggested. Left-sided PIC C line appropriately placed. Cardiomediastinal silhouette within normal limits. IMPRESSION: 1. Scattered infiltrates are seen bilaterally with slight interval improvement suggested.
[2020-03-20 10:18] LABS: Glucose,Whole Blood 62 mg/dL (75-99)
[2020-03-20 10:30] LABS: Glucose,Whole Blood 51 mg/dL (75-99)
[2020-03-20 10:37] LABS: Glucose,Whole Blood 74 mg/dL (75-99)
[2020-03-20 11:48] VITALS: PULSE 88
[2020-03-20 11:54] LABS: Glucose,Whole Blood 116 mg/dL (75-99)
--- NOTE | 2020-03-20 12:06 | P.PN ---
Subjective Progress Note Date: 03/20/20 Principal diagnosis: Acute hypoxic respiratory failure related to possibility of pneumonia 50-year-old white male patient of Dr. Meet Fontanez, with history of type 2 diabetes, poorly controlled, hyperlipidemia, previous history of MRSA infection in the right foot, and abscesses involving scrotal area and his back, was admitted to the hospital on a 03/11/2020 for sepsis related to left posterior chest the skin abscess status post outpatient I&D. Patient was hypotensive on admission, with blood pressure of 65 with 31, was fluid resuscitated, started on antibiotics, he required surgical debridement of the left posterior chest abscess and drainage of 30-40 mL of purulent material. Wound culture was positive for methicillin-resistant staph aureus. patient is covered with [facility], ID service is following. patient developed worsening shortness of breath on 03/16/2020. She required supplemental oxygen, his initial chest x-ray on admission on 03/16/2020 showed normal chest, where lungs. his chest x-ray on 03/16/2020 showed mixed interstitial and airspace disease and bilateral lungs, with the possibility of fluid overload, patient was started on IV diuretics. he has diabetes, follow-up chest x-ray on 03/17/2020 showing similar findings of interstitial and airspace disease in bilateral lungs. Today patient is off the oxygen, his sat 94% on room air, that his chest x-ray findings still show persistent interstitial and airspace disease bilaterally. Mild signs are stable, no fever or chills. he is on room air, being of dyspnea, and did have some central chest pain with coughing, which is nonproductive. nebulized bronchodilators were started, patient continues on IV Lasix. his lab work was reviewed, his CBC from yesterday show white blood cell count of 8.3, chief significantly improved from admission. hemoglobin is 9.3, serum sodium was 138, potassium is 4.2, CO2 is 33, BUN is 22, creatinine is 1.15. His pro calcitonin is trending down, it was 0.19 on 03/15/2020, and subsequently came down to 0.11. echocardiogram was completed showing preserved LV function, with an EF of 55- 60%, mild MR, and mild TR, no pericardial effusion, no pulmonary hypertension On 03/19/2020 patient seen in follow-up on general medical surgical floor. He is awake and alert, in no acute distress, remainder pulse ox is 92%, he states he still feels somewhat short of breath especially with exertion, but appears to be in no acute distress, lung sounds reveal scattered inspiratory crackles in bilateral mid to lower lungs posteriorly. And is going for a swallow evaluation , he does report some swallowing issues. We'll cut back his Lasix to once daily, is difficult to estimate his net fluid balance, as there is no accurate intake and output recorded. Patient is voiding without any issues, he continues on vancomycin for MRSA related abscess on his left flank. He has [address] in the surgical incision on his left flank area which is covered with the large ABG dressing, and there is still some limited purulent material around the [place] insertion site. Patient has been afebrile, hemodynamically stable. Today's chest x-ray still shows bilateral airspace disease, stable in appearance. On 03/20/2020 patient seen in follow-up on general medical surgical floor. He is up ambulating in the hallway, he states last night he had episode of shortne ss of breath, he thinks may have been related to coughing, and apparently had to be placed back on supplemental oxygen, this morning his vital signs are stable. His room air pulse ox is 90-96%. He is in no apparent distress, he has been ambulating extensively in the hallway, tolerating it very well, afebrile, hemodynamically patient is stable, lung sounds still reveal some scattered crackles in bilateral mid to lower lobes, no significant wheezing, occasional cough, no phlegm production. Follow-up chest x-ray still shows scattered infiltrates seen bilaterally, with slight interval improvement. She remains on daily dose of IV Lasix, breathing treatments, and vancomycin for MRSA related le ft flank abscess, status post surgical I&D. No acute events overnight, today's labs have been reviewed, showing sodium of 137, potassium is 5.0, chloride is 101, CO2 is 33, B1 is 27, creatinine is 1.07. Patient is anticipated to be discharged home today Objective - Vital Signs Vital signs: Vital Signs Temp 97.5 F L 03/20/20 07:00 Pulse 88 03/20/20 11:48 Resp 18 03/20/20 07:00 BP 153/79 03/20/20 07:00 Pulse Ox 90 L 03/20/20 07:00 Intake & Output 03/19/20 03/20/20 03/20/20 18:59 06:59 18:59 Intake Total 1192 Output Total 725 Balance 467 Weight 90.4 kg Intake: Intake, IV Titration 250 Amount Vancomycin 1,500 mg In 250 Sodium Chloride 0.9% 250 ml @ 125 mls/hr IVPB [facility] Rx#:[id number] Oral 942 Output: Urine 725 Other: Voiding Method Toilet Toilet Toilet Urinal Urinal Urinal # Voids 3 # Bowel Movements 1 - Exam GENERAL EXAM: Alert, pleasant, 50-year-old white male, on room air, the pulse ox 96%, appears comfortable in no apparent distress. Patient is ambulating extensively in the hallway, appears to be in no acute distress, and tolerating exertion well HEAD: Normocephalic/atraumatic. EYES: Normal reaction of pupils, equal size. Conjunctiva pink, sclera white. NOSE: Clear with pink turbinates. THROAT: No erythema or exudates. NECK: No masses, no JVD, no thyroid enlargement, no adenopathy. CHEST: No chest wall deformity. Symmetrical expansion. LUNGS: Equal air entry with mild inspiratory crackles over bilateral mid to lower lungs posteriorly CVS: Regular rate and rhythm, normal S1 and S2, no gallops, no murmurs, no rubs ABDOMEN: Soft, nontender. No hepatosplenomegaly, normal bowel sounds, no guarding or rigidity. EXTREMITIES: No clubbing, no edema, no cyanosis, 2+ pulses and upper and lower extremities. MUSCULOSKELETAL: Muscle strength and tone normal. SPINE: No scoliosis or deformity SKIN: left flank cellulitis, 2 surg wounds on his left flank area with 2 [place] drains with some limited purulent material from around the [place] insertion site, covered with dressings CENTRAL NERVOUS SYSTEM: Alert and oriented -3. No focal deficits, tone is normal in all 4 extremities. PSYCHIATRIC: Alert and oriented -3. Appropriate affect. Intact judgment and insight. - Labs CBC & Chem 7: 03/17/20 07:19 03/20/20 06:50 Labs: Abnormal Lab Results - Last 24 Hours (Table) 03/19/20 03/19/20 03/19/20 Range/Units 16:40 21:00 23:25 Carbon Dioxide (22-30) mmol/L BUN (9-20) mg/dL POC Glucose (mg/dL) 276 H 151 H 199 H (75-99) mg/dL 03/20/20 03/20/20 03/20/20 Range/Units 06:50 07:52 09:59 Carbon Dioxide 33 H (22-30) mmol/L BUN 27 H (9-20) mg/dL POC Glucose (mg/dL) 134 H 62 L (75-99) mg/dL 03/20/20 03/20/20 03/20/20 Range/Units 10:19 10:35 11:52 Carbon Dioxide (22-30) mmol/L BUN (9-20) mg/dL POC Glucose (mg/dL) 51 L 74 L 116 H (75-99) mg/dL Assessment and Plan Plan: assessment: #1. Acute hypoxic respiratory failure and secondary shortness of breath possibly related to pneumonia, consider perioperative aspiration, or possibility of ARDS, resolved, and patient is currently on room air, with a pulse ox of 90- 96% #2. left flank cellulitis and abscess, status post surgical I&D, secondary to MRSA, covered with vancomycin #3. Acute kidney injury related to hypotension, and ATN #4. Septic shock related to MRSA wound infection #5. Diabetes mellitus type 2, poorly controlled with diabetic retinopathy #6. Hypertension #7. Hyperlipidemia #8. Previous history of MRSA infections and skin abscess in the groin Plan: Follow-up chest x-ray has been reviewed, still showing bilateral infiltrates with some slight improvement, clinically patient has remained stable, his been afebrile, he is on room air, he is tolerating ambulation, no acute events overnight, he remains on breathing treatments, no wheezing or congestion, or significant phlegm production. From pulmonary perspective patient can be considered for discharge home today with outpatient follow-up with Dr. Faulkner in the office in 7-10 days and follow-up chest x-ray in the office. I performed a history & physical examination of the patient and discussed their management with my nurse practitioner, Angela Rucker. I reviewed the nurse practitioner's note and agree with the documented findings and plan of care. Lung sounds are positive for diminished breath sounds. The findings and the impression was discussed with the patient. I attest to the documentation by the nurse practitioner. Time with Patient: Less than 30
[2020-03-20] MEDS ORDERED: VANCOMYCIN TROUGH DUE 1 EACH MISC MISCELLANE ONE (13:00)
--- NOTE | 2020-03-20 16:44 | PN ---
PROGRESS NOTE DATE OF SERVICE: 03/20/2020 REASON FOR FOLLOWUP: Left lower back abscess and cellulitis. INTERVAL HISTORY: The patient is currently afebrile. The patient is breathing comfortably. Denies having any chest pain or shortness of breath. Occasional cough. No abdominal pain or diarrhea. PHYSICAL EXAMINATION: His blood pressure is 153/79 with a pulse of 91, temperature 97.5. He is 90% on room air. General description is a middle-aged male up in the bed in no distress. RESPIRATORY SYSTEM: Unlabored breathing with decreased breath sounds at the base. No wheeze. HEART: S1, S2. Regular rate and rhythm. ABDOMEN: Soft. No tenderness. LABS: Vancomycin trough was slightly high today. Chest x-ray this morning: Continued infiltrates bilaterally, slight improvement. DIAGNOSTIC IMPRESSION AND PLAN: Patient with left lower back abscess, status post surgical drainage. Culture has been positive for MRSA. The patient is currently on IV vancomycin; to continue for another week to finish his course of therapy. see in the office in about a week to see need for any further IV or oral antibiotics. Questions and concerns were answered. MMODL / IJN: [id number] / NICK
[2020-03-20] MEDS ORDERED: INSULIN DETEMIR (LEVEMIR) 100 UNIT/ML SYR SQ SCH (21:00)
[2020-03-21] MEDS ORDERED: VANCOMYCIN 1,250 MG in SODIUM CHLORIDE 0.9% 250 ML IVPB SCH (06:00)
--- NOTE | 2020-03-23 09:18 | CDI ---
Documentation Clarification Form Date: 03/23/20 From: Britt Cha CCS Phone: If you have a question about this query, please contact Ro Hamilton, Cnc Machine Operator at [phone] between 8am and 5pm. Admit Date: 03/11/20 Discharge Date:03/20/20 Patient Name: Marquez Squires Visit Number: [id number] ATTENTION: The Clinical Documentation Specialists (CDI) and [facility] Coding Staff appreciate your assistance in clarifying documentation. Please respond to the clarification below the line at the bottom and electronically sign. The CDI & [facility] Coding staff will review the response and follow-up if needed. Please note: Queries are made part of the Legal Health Record. If you have any questions, please contact the author of this message via ITS. Dear Dr. England, The patient presented with the following abscess , chest, flank and back. Sepsis with septic shock is documented in the Procedure, PNs and Consult. Consult 03/18 PN 03/19, 03/20: Patient was admitted to the hospital on a 03/11/2020 for sepsis related to left posterior chest the skin abscess status post outpatient I D. Septic shock related to MRSA wound infection Procedure: Given the complexity and size of his abscess with sepsis, prompt surgical intervention was advised. History/Risk Factors: Abscess, DM w/ complications, HTN Clinical Indicators: Tachycardia, Hypotension, Elevated WBC WBC: 20.3, 19.5, 14.7 Lactic acid: 1.7 Blood cultures: No growth after 144 hours Vitals signs on admission: BP 125/63, DC 97, RR 18, Temp 98.9, O2 Sat 99 Other Clinical Indicators: Acute Renal Failure Treatment: Rocephin 1,000 mg IVP, Vancomycin 1,500 mg IVPB ID Consult: Srini Other: I&D with pulse lavage debridement In your professional opinion, please clarify if these findings signify one of the following conditions, whether the condition is POA, and cause, if known: Condition Sepsis ruled out Sepsis Severe Sepsis Septic Shock Other, please specify Unable to determine SIRS Criteria (2 or more of the following may indicate SIRS): -Temperature < 96.8F (36C) or > 101.0F (38.3C) -Heart Rate > 90 bpm -Respiratory Rate > 20 breaths/min or PaCO2 < 32 mmHg -White Blood Cell Count > 12,000 or < 4,000 cells/mm3 or > 10% bands -Lactate >2.0 mmol/L (>4.0 is equivalent to septic shock) he had sepsis on admission , with episodic fever, leukocytosis and fever he meets SIRS criteria MTDD
--- NOTE | 2020-03-23 09:30 | CDI ---
Documentation Clarification Form Date: 03/23/20 From: Britt Cha CCS Phone: If you have a question about this query, please contact Ro Hamilton, Supervisor Facepiece Line at [phone] between 8am and 5pm. Admit Date: 03/11/20 Discharge Date:03/20/20 Patient Name: Marquez Squires Visit Number: [id number] ATTENTION: The Clinical Documentation Specialists (CDI) and [facility] Coding Staff appreciate your assistance in clarifying documentation. Please respond to the clarification below the line at the bottom and electronically sign. The CDI & [facility] Coding staff will review the response and follow-up if needed. Please note: Queries are made part of the Legal Health Record. If you have any questions, please contact the author of this message via ITS. Dear Dr. England, Consult 03/18, PN 03/19, 03/20 documents: Acute hypoxic respiratory failure and secondary shortness of breath possibly related to pneumonia, consider perioperative aspiration, or possibility of ARDS History/Risk Factors: DM, HTN, Sepsis, Multiple abscess Clinical Indicators: Pneumonia postoperative X-ray: Correlate for pneumonia, edema, follow-up is recommended. Treatment: Vancomycin 1,500 mg IVPB Q 12 H O2: Nasal Cannula 2 lpm Breathing Tx: Hand nebulizer In order to capture the severity of condition, please clarify if the condition signifies and you are treating for: Aspiration Pneumonia Pneumonia (perioperative) is a complication of the procedure Pneumonia Unspecified Bacterial Pneumonia Healthcare Acquired Pneumonia/Pneumonia, unspecified Pneumonia ruled out Other, please specify Unable to determine Pneumonia Unspecified MTDD
--- NOTE | 2020-03-23 10:01 | P.DS ---
Providers Date of admission: 03/11/20 23:06 Attending physician: Armando Pablo Consults: 03/15/20 12:08 Consult Physician Routine Consulting Provider: Shaan Milligan Consult Reason/Comments: assess for iv ANTIBIOTICS Do you want consulting provider notified?: Yes 03/16/20 14:21 Consult Physician Urgent Consulting Provider: Clarence Jameson Consult Reason/Comments: Blurry Vision Do you want consulting provider notified?: Yes 03/18/20 14:05 Consult Physician Urgent Consulting Provider: Sadie Faulkner Consult Reason/Comments: dyspnea , not responding to treatment Do you want consulting provider notified?: Yes Primary care physician: [facility] Course: Diagnoses: -Left flank cellulitis and abscess, status post I&D secondary to MRSA. On IV antibiotic -Perioperative pneumonia versus ARDS -Acute kidney injury possibly improved back to normal -Hypotension from volume loss and dehydration-improved -Diabetes mellitus type 2 chronically on insulin uncontrolled with both hyper and hypoglycemia -Diabetic peripheral neuropathy -Hypertension, start Norvasc -Hyperlipidemia Hospital course: This is a pleasant 50 years old male with past medical history of diabetes melli tus. Presents with left sided flank abscess secondary to MRSA per culture. Initially he was treated with daptomycin, later on switched to vancomycin per infectious disease recommendation, patient showed interval improvement and he will be discharged on IV vancomycin as per ID team recommendation However his hospital course has been complicated with acute hypoxic respiratory failure, needing 45 L of oxygen via nasal cannula, chest x-ray showing bilateral pulmonary congestion versus infiltrate or pneumonia. Echocardiogram showed normal ejection fraction at 55-60% with mild LVH. Patient was treated initially with IV Lasix which helped him wean him off oxygen and he was saturating 90s on room air, however patient remained feel some dyspnea and the pictures x-ray showed persistent changes, at this point pulmonary services were consulted who diagnosed patient with (pneumonia, consider perioperative aspiration, or possibility of ARDS) Eventually patient showed interval improvement in his breathing improved, he denies chest pain on the day of discharge, and his left flank/side abscess and cellulitis were improving, it is a status post surgical drainage and [place] drain is in a Place with recommendation for the patient to follow up outpatient with infectious disease and surgery with Dr. Victoria and he agrees Patient returned close to his baseline on the day of discharge and he agrees to go home Patient was cleared for discharge by all consultants including surgical, infectious disease and pulmonary services Problems and management plan were discussed with the patient and he verbalized understanding and acceptance Patient was found stable and can be discharged home however he needs follow-up as an outpatient. Patient was instructed to follow up with PCP within one week a nd patient agrees. i talked to the pt and he agrees to me appointments made for him with (ID) on 03/31 and (pulmonary) on 04/01 and on 04/02 and states he will follow up with them Gen: patient is a AAOx3, no distress CVS: S1-S2, RRR, no murmur Lungs: B/L CTA, no wheezing Abdomen: soft, no distention, no tenderness, positive bowel sounds Extremity: no leg edema or induration Time spent more than 35 minutes Patient Condition at Discharge: Stable Plan - Discharge Summary Discharge Rx Participant: Yes New Discharge Prescriptions: New Furosemide [Lasix] 40 mg PO DAILY #15 tablet Insulin Detemir (Levemir) [Levemir] 40 unit SQ HS #1 vial Gabapentin [Neurontin] 300 mg PO TID #60 cap HYDROcodone/APAP 5-325MG [[place] 5-325] 1 each PO DAILY PRN 3 Days #3 tab PRN Reason: Pain INSULIN ASPART (NovoLOG) [NovoLOG (formulary)] 8 unit SQ AC-TID vial INSULIN ASPART (NovoLOG) [NovoLOG (formulary)] 0 unit SQ ACHS vial guaiFENesin-DM 100-10MG/5ML [Robitussin DM] 10 ml PO Q6H PRN #70 ml PRN Reason: Cough Acetaminophen Tab [Tylenol] 650 mg PO Q6HR PRN tab PRN Reason: Mild Pain Or Fever > 100.5 Continue DULoxetine HCL [Cymbalta] 60 mg PO DAILY Omeprazole [PriLOSEC] 40 mg PO AC-BRKFST #14 capsule. Nitroglycerin Sl Tabs [Nitrostat] 0.4 mg SUBLINGUAL Q5M PRN #30 tab PRN Reason: Chest Pain Semaglutide [Ozempic] 1.5 ml SQ ARAUJO Albuterol Sulfate [Ventolin HFA] 2 puff INHALATION RT-Q6H PRN #1 inhaler PRN Reason: Shortness Of Breath Discontinued traZODone HCL 50 - 100 mg PO HS PRN PRN Reason: Insomnia Gabapentin 800 mg PO TID Insulin Glargine,Hum.rec.anlog [Basaglar Kwikpen U-100] 60 unit SQ HS Ibuprofen [Motrin] 800 mg PO TID-W/MEALS PRN PRN Reason: Pain Discharge Medication List DULoxetine HCL [Cymbalta] 60 mg PO DAILY 11/02/19 [History] Omeprazole [PriLOSEC] 40 mg PO AC-BRKFST #14 capsule. 11/04/19 [Rx] Nitroglycerin Sl Tabs [Nitrostat] 0.4 mg SUBLINGUAL Q5M PRN #30 tab 11/05/19 [Rx] Semaglutide [Ozempic] 1.5 ml SQ ARAUJO 03/11/20 [History] Acetaminophen Tab [Tylenol] 650 mg PO Q6HR PRN tab 03/20/20 [Rx] Albuterol Sulfate [Ventolin HFA] 2 puff INHALATION RT-Q6H PRN #1 inhaler 03/20/20 [Rx] Furosemide [Lasix] 40 mg PO DAILY #15 tablet 03/20/20 [Rx] Gabapentin [Neurontin] 300 mg PO TID #60 cap 03/20/20 [Rx] HYDROcodone/APAP 5-325MG [[place] 5-325] 1 each PO DAILY PRN 3 Days #3 tab 03/20/20 [Rx] INSULIN ASPART (NovoLOG) [NovoLOG (formulary)] 0 unit SQ ACHS vial 03/20/20 [Rx] INSULIN ASPART (NovoLOG) [NovoLOG (formulary)] 8 unit SQ AC-TID vial 03/20/20 [Rx] Insulin Detemir (Levemir) [Levemir] 40 unit SQ HS #1 vial 03/20/20 [Rx] guaiFENesin-DM 100-10MG/5ML [Robitussin DM] 10 ml PO Q6H PRN #70 ml 03/20/20 [Rx] Follow up Appointment(s)/Referral(s): Meet Fontanez DO [Primary Care Provider] - 1-2 days Lucero Feng MD [STAFF PHYSICIAN] - 04/02/20 3:00 pm [facility], [NON-STAFF] - Shaan Milligan MD [STAFF PHYSICIAN] - 03/31/20 11:00 am Sadie Faulkner MD [STAFF PHYSICIAN] - 04/01/20 9:45 am Patient Instructions/Handouts: MRSA (Methicillin-Resistant Staphylococcus Aureus) (DC), Abscess Incision and Drainage (DC) Activity/Diet/Wound Care/Special Instructions: 1. Per Dr. Milligan's direction, The IV antibiotics for home will be Vancomycin with pharmacy to dose x1 week. 2. [facility] infusion company: [phone]. Supplies will be delivered to patient's home on: 03/20/2020 between 6pm and 9pm. 3. [facility] will start visits on the morning of 03/21/2020 to begin home IV antibiotic infusions. Discharge Disposition: HOME WITH HOME HEALTH SERVICES
== END 2020-03-20 17:11 | disposition home health service (06) | DRG 853 ==
LOC: EC 19:35 → 4SSUR 23:06
PROVIDERS: ADMIT Hospitalist; ATTEND Hospitalist
PROC: 0JD70ZZ Extraction of Back Subcutaneous Tissue and Fascia, Open Approach (ICD-10-PCS; principal; 2020-03-13 09:00)
PROC: 02HV33Z Insertion of Infusion Device into Superior Vena Cava, Percutaneous Approach (ICD-10-PCS; 2020-03-17)
DX: A41.02 Sepsis due to Methicillin resistant Staphylococcus aureus (principal); N17.0 Acute kidney failure with tubular necrosis; J96.01 Acute respiratory failure with hypoxia; J18.9 Pneumonia, unspecified organism; L02.212 Cutaneous abscess of back [any part, except buttock and flank]; L03.312 Cellulitis of back [any part except buttock and flank]; L03.313 Cellulitis of chest wall; L02.213 Cutaneous abscess of chest wall; L03.311 Cellulitis of abdominal wall; L02.211 Cutaneous abscess of abdominal wall; Z20.828 Contact with and (suspected) exposure to other viral communicable diseases; E11.649 Type 2 diabetes mellitus with hypoglycemia without coma; E11.311 Type 2 diabetes mellitus with unspecified diabetic retinopathy with macular edema; I95.89 Other hypotension; E11.42 Type 2 diabetes mellitus with diabetic polyneuropathy; E11.65 Type 2 diabetes mellitus with hyperglycemia; Z79.4 Long term (current) use of insulin; F32.9 Major depressive disorder, single episode, unspecified; E78.5 Hyperlipidemia, unspecified; M10.9 Gout, unspecified; F41.9 Anxiety disorder, unspecified; I45.10 Unspecified right bundle-branch block; E86.0 Dehydration; F17.210 Nicotine dependence, cigarettes, uncomplicated; H35.30 Unspecified macular degeneration; Z71.3 Dietary counseling and surveillance; I10 Essential (primary) hypertension; E87.70 Fluid overload, unspecified; I08.1 Rheumatic disorders of both mitral and tricuspid valves; Z79.899 Other long term (current) drug therapy; Z90.49 Acquired absence of other specified parts of digestive tract; Z86.14 Personal history of Methicillin resistant Staphylococcus aureus infection; Z98.890 Other specified postprocedural states; Z83.3 Family history of diabetes mellitus
CPT/HCPCS: 36415; 36573; 71045; 71046; 74176; 80048; 80053; 80202; 82150; 82565; 83605; 83690; 83735; 84145; 85025; 85027; 85610; 85730; 87040; 87070; 87075; 87077; 87186; 87205; 93005; 93306; 94640; 99285

== ENCOUNTER 2020-03-31 16:36 | Inpatient (IN) | payer OTHER ==
--- NOTE | 2020-03-31 17:50 | ED ---
General Adult HPI - General Chief complaint: Shortness of Breath Stated complaint: Vision problems Time Seen by Provider: 03/31/20 17:36 Source: patient, family Mode of arrival: wheelchair Limitations: no limitations - History of Present Illness Initial comments: Dictation was produced using [email or web address] dictation software. please excuse any grammatical, word or spelling errors. This patient was cared for during a federal and state declared state of emergency secondary to Covid 19 Chief Complaint: 50-year-old male with past medical history diabetes, hyperlipidemia, retinopathy presents with cough, vision problems and cough. History of Present Illness: Is a 50-year-old male he was just admitted to the hospital last week. Patient is admitted for left flank cellulitis and abscess. He had an I&D was also findings of MRSA. Patient also had perioperative pneumonia versus ARDS. Patient states that since being discharged she has not been feeling at baseline. He reports that having some vision problems. Recently patient had injections to his orbits. He states that he gets injections to his eyes for some sort of blood vessel problem to his retina. Patient also reports that he's been having this lingering cough. Denies any c hest pain. Denies any fever, chills or night sweats. Patient also reports that his third chief complaint is a warm sensation that intermittently goes from his toes up to his mid thigh area. Lasted for several minutes and went away. The ROS documented in this emergency department record has been reviewed and confirmed by me. Those systems with pertinent positive or negative responses have been documented in the HPI. All other systems are other negative and/or noncontributory. PHYSICAL EXAM: General Impression: Alert and oriented x3, not in acute distress HEENT: Normocephalic atraumatic, extra-ocular movements intact, pupils equal and reactive to light bilaterally, mucous membranes moist, no oropharyngeal erythema Cardiovascular: Heart regular rate and rhythm Chest: Able to complete full sentences, no retractions, no tachypnea, lungs clear to auscultation bilaterally Abdomen: abdomen soft, non-tender, non-distended, no organomegaly Musculoskeletal: Pulses present and equal in all extremities, no peripheral edema Motor: no focal deficits noted Neurological: CN II-XII grossly intact, no focal motor or sensory deficits noted Skin: Intact with no visualized rashes, surgical sickly trying intact with loop drain in place Psych: Normal affect and mood ED course: 50-year-old male presents with multiple complaints. As upon arrival shows blood pressure 72/40, respiratory signs within acceptable limits. This was likely an error because once patient got into the ER room repeat blood pressure is 92/58. Patient has multiple comorbidities. Laboratory evaluation obtained. CBC unremarkable. Coag panel is negative. Metabolic panel shows glucose of 5 with a lactic acidosis of 2.5. Significantly elevated renal markers are creatinine 3.02 and a BUN of 49. Clinical presentati on consistent with acute kidney injury. Lactic acidosis likely secondary to dehydration and hypoperfusion patient given intravenous fluids. Blood pressure remained stable in the emergency department. X-rays pending radiology rate however after my review no acute findings. Patient be admitted here discussed patient case with MUNIR Medina who is willing to accept patients care on behalf of [facility] hospitalist group. EKG interpretation: Ventricular rate 89, normal sinus rhythm, SC interval 150, QRS 100, QTC 438. No SC prolongation, no QTC prolongation, no ST or T-wave changes noted. EKG compared to 03/11/2020 showing no changes. Overall, this EKG is unremarkable - Related Data Home Medications Medication Instructions Recorded Confirmed DULoxetine HCL [Cymbalta] 60 mg PO DAILY 11/02/19 03/11/20 Semaglutide [Ozempic] 1.5 ml SQ ARAUJO 03/11/20 03/11/20 Previous Rx's Medication Instructions Recorded Omeprazole [PriLOSEC] 40 mg PO AC-BRKFST #14 capsule. 11/04/19 Nitroglycerin Sl Tabs [Nitrostat] 0.4 mg SUBLINGUAL Q5M PRN #30 tab 11/05/19 Acetaminophen Tab [Tylenol] 650 mg PO Q6HR PRN tab 03/20/20 Albuterol Sulfate [Ventolin HFA] 2 puff INHALATION RT-Q6H PRN #1 03/20/20 inhaler Furosemide [Lasix] 40 mg PO DAILY #15 tablet 03/20/20 Gabapentin [Neurontin] 300 mg PO TID #60 cap 03/20/20 HYDROcodone/APAP 5-325MG [[place] 1 each PO DAILY PRN 3 Days #3 tab 03/20/20 5-325] INSULIN ASPART (NovoLOG) [NovoLOG 0 unit SQ ACHS vial 03/20/20 (formulary)] INSULIN ASPART (NovoLOG) [NovoLOG 8 unit SQ AC-TID vial 03/20/20 (formulary)] Insulin Detemir (Levemir) [Levemir] 40 unit SQ HS #1 vial 03/20/20 guaiFENesin-DM 100-10MG/5ML 10 ml PO Q6H PRN #70 ml 03/20/20 [Robitussin DM] Allergies Allergy/AdvReac Type Severity Reaction Status Date / Time No Known Allergies Allergy Verified 03/31/20 17:21 Review of Systems ROS Statement: Those systems with pertinent positive or pertinent negative responses have been documented in the HPI. ROS Other: All systems not noted in ROS Statement are negative. Past Medical History Past Medical History: Diabetes Mellitus, Hyperlipidemia Additional Past Medical History / Comment(s): IDDM type II, neuropathy bilateral feet, gout History of Any Multi-Drug Resistant Organisms: MRSA Date of last positivie culture/infection: 03/13/20 MDRO Source:: MRSA BACK Past Surgical History: Cholecystectomy Additional Past Surgical History / Comment(s): I&D scrotal abscess, I&D back abscess Past Anesthesia/Blood Transfusion Reactions: No Reported Reaction Past Psychological History: Anxiety Smoking Status: Former smoker Past Alcohol Use History: Occasional Past Drug Use History: None Reported - Past Family History Mother Family Medical History: Diabetes Mellitus Father History Unknown: Yes General Exam Limitations: no limitations Course Vital Signs 03/31/20 03/31/20 03/31/20 17:18 17:40 18:29 Temperature 98.8 F Pulse Rate 90 94 114 H Respiratory 18 18 20 Rate Blood Pressure 72/48 92/58 117/79 O2 Sat by Pulse 99 98 96 Oximetry Medical Decision Making - Lab Data Result diagrams: 03/31/20 17:45 03/31/20 17:45 Lab Results 03/31/20 03/31/20 03/31/20 Range/Units 17:45 17:45 17:45 WBC 7.2 (3.8-10.6) k/uL RBC 4.04 L (4.30-5.90) m/uL Hgb 12.0 L (13.0-17.5) gm/dL Hct 35.4 L (39.0-53.0) % MCV 87.6 (80.0-100.0) fL MCH 29.8 (25.0-35.0) pg MCHC 34.0 (31.0-37.0) g/dL RDW 13.4 (11.5-15.5) % Plt Count 269 (150-450) k/uL Neutrophils % 67 % Lymphocytes % 18 % Monocytes % 7 % Eosinophils % 5 % Basophils % 2 % Neutrophils # 4.8 (1.3-7.7) k/uL Lymphocytes # 1.3 (1.0-4.8) k/uL Monocytes # 0.5 (0-1.0) k/uL Eosinophils # 0.4 (0-0.7) k/uL Basophils # 0.1 (0-0.2) k/uL PT 9.9 (9.0-12.0) sec INR 0.9 (<1.2) APTT 22.0 (22.0-30.0) sec Sodium 131 L (137-145) mmol/L Potassium 5.3 H (3.5-5.1) mmol/L Chloride 95 L (98-107) mmol/L Carbon Dioxide 25 (22-30) mmol/L Anion Gap 11 mmol/L BUN 49 H (9-20) mg/dL Creatinine 3.02 H (0.66-1.25) mg/dL Est GFR (CKD-EPI)AfAm 27 (>60 ml/min/1.73 sqM) Est GFR (CKD-EPI)NonAf 23 (>60 ml/min/1.73 sqM) Glucose 508 H* (74-99) mg/dL Plasma Lactic Acid Dno (0.7-2.0) mmol/L Calcium 9.4 (8.4-10.2) mg/dL Ionized Calcium Asim 4.9 (4.5-5.3) mg/dL Magnesium 2.0 (1.6-2.3) mg/dL Total Bilirubin 0.5 (0.2-1.3) mg/dL AST 18 (17-59) U/L ALT 21 (4-49) U/L Alkaline Phosphatase 192 H (38-126) U/L Troponin I (0.000-0.034) ng/mL C-Reactive Protein <5.0 (<10.0) mg/L Total Protein 8.1 (6.3-8.2) g/dL Albumin 4.2 (3.5-5.0) g/dL 03/31/20 03/31/20 Range/Units 17:45 17:45 WBC (3.8-10.6) k/uL RBC (4.30-5.90) m/uL Hgb (13.0-17.5) gm/dL Hct (39.0-53.0) % MCV (80.0-100.0) fL MCH (25.0-35.0) pg MCHC (31.0-37.0) g/dL RDW (11.5-15.5) % Plt Count (150-450) k/uL Neutrophils % % Lymphocytes % % Monocytes % % Eosinophils % % Basophils % % Neutrophils # (1.3-7.7) k/uL Lymphocytes # (1.0-4.8) k/uL Monocytes # (0-1.0) k/uL Eosinophils # (0-0.7) k/uL Basophils # (0-0.2) k/uL PT (9.0-12.0) sec INR (<1.2) APTT (22.0-30.0) sec Sodium (137-145) mmol/L Potassium (3.5-5.1) mmol/L Chloride (98-107) mmol/L Carbon Dioxide (22-30) mmol/L Anion Gap mmol/L BUN (9-20) mg/dL Creatinine (0.66-1.25) mg/dL Est GFR (CKD-EPI)AfAm (>60 ml/min/1.73 sqM) Est GFR (CKD-EPI)NonAf (>60 ml/min/1.73 sqM) Glucose (74-99) mg/dL Plasma Lactic Acid Don 2.5 H* (0.7-2.0) mmol/L Calcium (8.4-10.2) mg/dL Ionized Calcium Asim (4.5-5.3) mg/dL Magnesium (1.6-2.3) mg/dL Total Bilirubin (0.2-1.3) mg/dL AST (17-59) U/L ALT (4-49) U/L Alkaline Phosphatase (38-126) U/L Troponin I <0.012 (0.000-0.034) ng/mL C-Reactive Protein (<10.0) mg/L Total Protein (6.3-8.2) g/dL Albumin (3.5-5.0) g/dL Disposition Clinical Impression: NIXON (acute kidney injury) Disposition: ADMITTED IP TO THIS HOSP Condition: Fair Referrals: Meet Fontanez DO [Primary Care Provider] - 1-2 days Decision Time: 19:16
[2020-03-31 18:02] LABS: Basophils # (A) 0.1 k/uL (0-0.2); Basophils % (A) 2 %; Eosinophils # (A) 0.4 k/uL (0-0.7); Eosinophils % (A) 5 %; HCT 35.4 % (39.0-53.0); Lymphocytes # (A) 1.3 k/uL (1.0-4.8); Lymphocytes % (A) 18 %; MCH 29.8 pg (25.0-35.0); MCV 87.6 fL (80.0-100.0); Mean Platelet Volume 8.9; Monocytes # (A) 0.5 k/uL (0-1.0); Monocytes % (A) 7 %; Neutrophils # (A) 4.8 k/uL (1.3-7.7); Neutrophils % (A) 67 %; Platelet Count 269 k/uL (150-450); RBC 4.04 m/uL (4.30-5.90); RDW 13.4 % (11.5-15.5); WBC 7.2 k/uL (3.8-10.6)
[2020-03-31 18:09] LABS: Ionized Calcium 4.9 mg/dL (4.5-5.3)
[2020-03-31 18:11] LABS: INR 0.9 (<1.2); Prothrombin Time 9.9 sec (9.0-12.0)
[2020-03-31 18:25] LABS: ALT 21 U/L (4-49); AST 18 U/L (17-59); African American GFR (CKD) 27 (>60 ml/min/1.73 sqM); Albumin 4.2 g/dL (3.5-5.0); Alkaline Phosphatase 192 U/L (38-126); Anion Gap 11 mmol/L; Blood Urea Nitrogen 49 mg/dL (9-20); C Reactive Protein <5.0 mg/L (<10.0); Calcium 9.4 mg/dL (8.4-10.2); Carbon Dioxide 25 mmol/L (22-30); Chloride 95 mmol/L (98-107); Non-African American GFR(CKD) 23 (>60 ml/min/1.73 sqM); Potassium 5.3 mmol/L (3.5-5.1); Sodium 131 mmol/L (137-145); Total Bilirubin 0.5 mg/dL (0.2-1.3); Total Protein 8.1 g/dL (6.3-8.2)
[2020-03-31 18:34] LABS: Glucose 508 mg/dL (74-99)
[2020-03-31] MEDS ORDERED: SODIUM CHLORIDE 0.9% 1,000 ML IV STA (18:35)
[2020-03-31] MEDS ORDERED: INSULIN REGULAR 100 UNIT/ML VIAL IV ONE (18:39)
[2020-03-31] MEDS ORDERED: NALOXONE 0.4 MG/ML 1 ML VIAL IV PRN (19:13)
--- NOTE | 2020-03-31 19:54 | XR ---
EXAMINATION TYPE: XR chest 2V DATE OF EXAM: 03/31/2020 CLINICAL HISTORY: Cough. Shortness of breath. TECHNIQUE: Frontal and lateral views of the chest are obtained. COMPARISON: Chest radiograph 03/20/2020 FINDINGS: The cardiomediastinal silhouette is within normal limits for size. Pulmonary vasculature i s normal. There is improved aeration of the bilateral lungs versus 03/20/2020 comparison. There is no focal air space opacity, pleural effusion, or pneumothorax seen. The osseous structures are intact. IMPRESSION: No acute cardiopulmonary process.
[2020-03-31 20:01] LABS: Glucose,Whole Blood 202 mg/dL (75-99)
[2020-03-31 20:50] LABS: Glucose,Whole Blood 188 mg/dL (75-99)
[2020-03-31] MEDS ORDERED: HYDROcodone/APAP 5-325MG 1 EACH TAB PO PRN (20:54)
[2020-03-31] MEDS ORDERED: NITROGLYCERIN SL TABS 0.4 MG TAB SUBLINGUAL PRN (20:54)
[2020-03-31] MEDS: GABAPENTIN 400 MG CAP PO SCH (21:47)
[2020-03-31] MEDS: INSULIN DETEMIR (LEVEMIR) 100 UNIT/ML SYR SQ SCH (21:47)
[2020-03-31] MEDS: SODIUM CHLORIDE 0.9% 1,000 ML IV SCH (21:48)
[2020-03-31] MEDS: INSULIN ASPART (NovoLOG) 100 UNIT/ML VIAL SQ SCH (21:48)
[2020-04-01] MEDS: SODIUM CHLORIDE 0.9% 1,000 ML IV SCH ×2 (04:13→11:32)
[2020-04-01 07:25] LABS: Glucose,Whole Blood 139 mg/dL (75-99)
[2020-04-01] MEDS: PANTOPRAZOLE 40 MG TABLET PO SCH (07:52)
[2020-04-01] MEDS: ACETAMINOPHEN TAB 325 MG TAB PO PRN (08:09)
[2020-04-01] MEDS: ALBUTEROL NEBULIZED 2.5 MG/3 ML INHALATION PRN ×3 (08:26→15:32)
[2020-04-01] MEDS: GABAPENTIN 400 MG CAP PO SCH (09:31)
[2020-04-01] MEDS: INSULIN ASPART (NovoLOG) 100 UNIT/ML VIAL SQ SCH ×4 (09:31→21:44)
[2020-04-01] MEDS: guaiFENesin-DM 100-10MG/5ML 10 ML CUP PO PRN ×2 (09:32→19:33)
--- NOTE | 2020-04-01 10:08 | P.NPCON ---
History of Present Illness - Reason for Consult acute renal failure - History of Present Illness Reason for consultation: Acute kidney injury History of present illness: Patient is a 50-year-old male seen in renal consultation for acute kidney injury. Patient baseline creatinine is 1 and was elevated at 3.02 on admission yesterday. Patient presented to the hospital due to not feeling well and also having some vision changes. He admits to good urine output. Denies any hematuria or dysuria. Denies vomiting. States he did have some diarrhea a few days ago but none in the last 2 days. Oral intake has been fair. No chest pain or shortness of breath. Admits to taking Motrin only as needed. Has not taken it recently. Denies family history of renal disease. He does have long- standing history of diabetes mellitus. Patient's blood sugar was over 500 on admission. He is currently maintained on normal saline. He does take Lasix at home which is currently held. Chest x-ray is not suggestive of fluid overload. Patient was recently discharged from the hospital about a week ago. At that time he underwent drainage of abscess in his back and has completed 2 weeks of vancomycin. Vital signs are stable. General: The patient appeared well nourished and normally developed. HEENT: Head exam is unremarkable. Neck is without jugular venous distension. LUNGS: Lungs are clear to auscultation and percussion. Breath sounds decreased. HEART: Rate and Rhythm are regular. ABDOMEN: Soft, nontender. EXTREMITITES: No clubbing, cyanosis, or edema. Past Medical History Past Medical History: Diabetes Mellitus, Hyperlipidemia Additional Past Medical History / Comment(s): IDDM type II, neuropathy bilateral feet, gout History of Any Multi-Drug Resistant Organisms: MRSA Date of last positivie culture/infection: 03/13/20 MDRO Source:: MRSA BACK Past Surgical History: Cholecystectomy Additional Past Surgical History / Comment(s): I&D scrotal abscess, I&D back abscess Past Anesthesia/Blood Transfusion Reactions: No Reported Reaction Past Psychological History: Anxiety Additional Psychological History / Comment(s): Pt resides with his aunt and uncle. He is independent. He works in [employer]. Smoking Status: Former smoker Past Alcohol Use History: Occasional Additional Past Alcohol Use History / Comment(s): Pt started smoking in 1987 and quit 2 weeks ago. Past Drug Use History: None Reported - Past Family History Mother Family Medical History: Diabetes Mellitus Father History Unknown: Yes Medications and Allergies Home Medications Medication Instructions Recorded Confirmed Type Omeprazole [PriLOSEC] 40 mg PO AC-BRKFST #14 capsule.dr 11/04/19 03/31/20 Rx Nitroglycerin Sl Tabs [Nitrostat] 0.4 mg SUBLINGUAL Q5M PRN #30 tab 11/05/19 03/31/20 Rx Semaglutide [Ozempic] 1.5 ml SQ TU 03/11/20 03/31/20 History Acetaminophen Tab [Tylenol] 650 mg PO Q6HR PRN tab 03/20/20 03/31/20 Rx Albuterol Sulfate [Ventolin HFA] 2 puff INHALATION RT-Q6H PRN #1 03/20/20 03/31/20 Rx inhaler Furosemide [Lasix] 40 mg PO DAILY #15 tablet 03/20/20 03/31/20 Rx guaiFENesin-DM 100-10MG/5ML 10 ml PO Q6H PRN #70 ml 03/20/20 03/31/20 Rx [Robitussin DM] Gabapentin 800 mg PO TID 03/31/20 03/31/20 History HYDROcodone/APAP 5-325MG [[place] 1 tab PO DAILY PRN 03/31/20 03/31/20 History 5-325] Insulin Glargine,Hum.rec.anlog 60 unit SQ HS 03/31/20 03/31/20 History [Basaglar Kwikpen U-100] Allergies Allergy/AdvReac Type Severity Reaction Status Date / Time No Known Allergies Allergy Verified 03/31/20 19:45 Physical Exam Vitals: Vital Signs Temp Pulse Pulse Resp BP BP Pulse Ox 04/01/20 08:40 80 04/01/20 08:27 80 04/01/20 07:00 97.6 F 82 135/79 98 04/01/20 01:18 98.1 F 87 117/73 100 03/31/20 20:24 97.4 F L 88 18 102/64 98 03/31/20 20:03 102 H 16 117/87 100 03/31/20 18:29 114 H 20 117/79 96 03/31/20 17:40 94 18 92/58 98 03/31/20 17:18 98.8 F 90 18 72/48 99 Intake and Output 03/31/20 04/01/20 04/01/20 22:59 06:59 14:59 Other: Voiding Method Toilet # Voids 1 1 Weight 83.007 kg Results - Lab Results Most recent lab results Calcium 9.4 mg/dL (8.4-10.2) 03/31/20 17:45 Magnesium 2.0 mg/dL (1.6-2.3) 03/31/20 17:45 03/31/20 17:45 03/31/20 17:45 Assessment and Plan Plan: Assessment: 1. Acute kidney injury mostly prerenal secondary to hypovolemia secondary to hyperglycemia and diuretics. Creatinine 3.02 on admission. Baseline creatinine near 1. 2. Hypertonic hyponatremia secondary to hyperglycemia. Corrected sodium in the normal range. 3. Recent lower back abscess status post drainage and completion of IV vancomycin for 2 weeks. 4. Insulin-dependent diabetes mellitus. Plan: Maintain normal saline. I will decrease the rate to 75 mL an hour. Continue to hold diuretics. Check renal ultrasound. Check urinalysis. Check vancomycin level. Continue to monitor renal function and urine output. Morning labs pending. Thank you for the consultation. I will continue to follow the patient with you during his hospital stay.
[2020-04-01 11:04] LABS: Calcium 8.4 mg/dL (8.4-10.2); Magnesium 1.9 mg/dL (1.6-2.3); Potassium 4.7 mmol/L (3.5-5.1)
[2020-04-01 11:09] LABS: Vancomycin,Random 7.8 ug/mL
--- NOTE | 2020-04-01 11:26 | US ---
EXAMINATION TYPE: US kidneys/renal and bladder DATE OF EXAM: 04/01/2020 COMPARISON: NONE CLINICAL HISTORY: NIXON. Abnormal labs. EXAM MEASUREMENTS: Right Kidney: 11.2 x 5.1 x 5.8 cm Left Kidney: 10.6 x 4.7 x 5.3 cm Right Kidney: Normal. No nephrolithiasis. Left Kidney: Normal. No nephrolithiasis. Bladder: Anechoic urine. No bladder wall thickening. There is visualization of the bilateral ureteral jets. Bilateral Jets seen IMPRESSION: Normal ultrasound of the kidneys and urinary bladder. No hydronephrosis.
[2020-04-01 11:39] LABS: Glucose,Whole Blood 343 mg/dL (75-99)
[2020-04-01 12:20] LABS: Appearance,Urine Clear (Clear); Bacteria,Urine Rare /hpf; Bilirubin,Urine Negative (Negative); Blood,Urine Negative (Negative); Color,Urine Yellow; Glucose,Urine (UA) 4+ (Negative); Granular Casts,Urine 3 /lpf (0); Hyaline Casts,Urine 16 /lpf (0-2); Ketones,Urine Negative (Negative); Leukocyte Esterase,Urine Negative (Negative); Mucus,Urine Rare /hpf; Nitrite,Urine Negative (Negative); PH, Urine 5.5 (5.0-8.0); Protein,Urine 1+ (Negative); RBC,Urine <1 /hpf (0-5); Specific Gravity,Urine 1.021 (1.001-1.035); Squamous Epithelial Cell,Urine <1 /hpf (0-4); Urobilinogen,Urine <2.0 mg/dL (<2.0); WBC,Urine 2 /hpf (0-5)
[2020-04-01] MEDS: GABAPENTIN 300 MG CAP PO SCH ×2 (15:58→21:44)
[2020-04-01 16:32] LABS: Glucose,Whole Blood 349 mg/dL (75-99)
[2020-04-01] MEDS: DULoxetine HCL 60 MG CAPSULE.DR PO SCH (17:10)
[2020-04-01 21:22] LABS: Glucose,Whole Blood 246 mg/dL (75-99)
[2020-04-01] MEDS: INSULIN DETEMIR (LEVEMIR) 100 UNIT/ML SYR SQ SCH (21:44)
--- NOTE | 2020-04-02 00:43 | P.HPIM ---
History of Present Illness H&P Date: 04/01/20 Chief Complaint: Generalized weakness and fatigue Patient is been 50-year-old male with a known history of diabetes type 2 insulin-dependent, bilateral peripheral neuropathy, gout, recent IND of the back abscess status post antibiotic course and previous history of smoking came to ER with complaints of generalized weakness and blurry vision patient was also compl aining of cough. No chest pain or shortness of breath. No fever no chills. Patient was recently admitted to the hospital and was discharged about a week ago. Completed antibiotic course for MRSA infection and abscess on the left side of On admission lab data laboratory data showed WBC 7.2, hemoglobin 12.0 and platelets 269 Sodium 131, potassium 5.3, chloride 95, BUN 14 and creatinine 03.02 Blood sugar is 508 Lactic acid 2.5 Alk phos 192 CRP less than 5 Troponin less than 0.012 EKG showed normal sinus rhythm Chest x-ray showed no acute cardiopulmonary process Patient was hypotensive with blood pressure 72/48 on admission Pulse is 90 respiration 18 pulse ox 99% on room air Review of Systems Constitutional: Patient denies any fever or chills . generalized weakness and fatique. no weight loss. Abdomen: Patient denied nausea vomiting and diarrhea and abdominal pain. Cardiovascular: Patient denies any chest pain or short of breath no palpitations. Respiratory: patient denied any cough is from production. No shortness of b reath Neurologic: Patient denied any numbness or tingling headache. Musculoskeletal: Patient denies any complaints of joint swelling or deformity. Skin: Negative Psychiatric: Negative Endocrine: No heat or cold intolerance. No recent weight gain. Genitourinary: No dysuria or hematuria. All other 14 point ROS negative except the above Past Medical History Past Medical History: Diabetes Mellitus, Hyperlipidemia Additional Past Medical History / Comment(s): IDDM type II, neuropathy bilateral feet, gout History of Any Multi-Drug Resistant Organisms: MRSA Date of last positivie culture/infection: 03/13/20 MDRO Source:: MRSA BACK Past Surgical History: Cholecystectomy Additional Past Surgical History / Comment(s): I&D scrotal abscess, I&D back abscess Past Anesthesia/Blood Transfusion Reactions: No Reported Reaction Past Psychological History: Anxiety Additional Psychological History / Comment(s): Pt resides with his aunt and uncle. He is independent. He works in [employer]. Smoking Status: Former smoker Past Alcohol Use History: Occasional Additional Past Alcohol Use History / Comment(s): Pt started smoking in 1987 and quit 2 weeks ago. Past Drug Use History: None Reported - Past Family History Mother Family Medical History: Diabetes Mellitus Father History Unknown: Yes Medications and Allergies Home Medications Medication Instructions Recorded Confirmed Type Omeprazole [PriLOSEC] 40 mg PO AC-BRKFST #14 capsule. 11/04/19 03/31/20 Rx Nitroglycerin Sl Tabs [Nitrostat] 0.4 mg SUBLINGUAL Q5M PRN #30 tab 11/05/19 03/31/20 Rx Semaglutide [Ozempic] 1.5 ml SQ TU 03/11/20 03/31/20 History Acetaminophen Tab [Tylenol] 650 mg PO Q6HR PRN tab 03/20/20 03/31/20 Rx Albuterol Sulfate [Ventolin HFA] 2 puff INHALATION RT-Q6H PRN #1 03/20/20 03/31/20 Rx inhaler Furosemide [Lasix] 40 mg PO DAILY #15 tablet 03/20/20 03/31/20 Rx guaiFENesin-DM 100-10MG/5ML 10 ml PO Q6H PRN #70 ml 03/20/20 03/31/20 Rx [Robitussin DM] Gabapentin 800 mg PO TID 03/31/20 03/31/20 History HYDROcodone/APAP 5-325MG [[place] 1 tab PO DAILY PRN 03/31/20 03/31/20 History 5-325] Insulin Glargine,Hum.rec.anlog 60 unit SQ HS 03/31/20 03/31/20 History [Basaglar Kwikpen U-100] DULoxetine HCL [Cymbalta] 60 mg PO DAILY 04/01/20 04/01/20 History Allergies Allergy/AdvReac Type Severity Reaction Status Date / Time No Known Allergies Allergy Verified 03/31/20 19:45 Physical Exam Vitals: Vital Signs Temp Pulse Pulse Resp BP BP Pulse Ox 04/01/20 08:40 80 04/01/20 08:27 80 04/01/20 08:00 18 04/01/20 07:00 97.6 F 82 135/79 98 04/01/20 01:18 98.1 F 87 117/73 100 03/31/20 20:24 97.4 F L 88 18 102/64 98 03/31/20 20:03 102 H 16 117/87 100 03/31/20 18:29 114 H 20 117/79 96 03/31/20 17:40 94 18 92/58 98 03/31/20 17:18 98.8 F 90 18 72/48 99 Intake and Output 03/31/20 04/01/20 04/01/20 22:59 06:59 14:59 Intake Total 450 Balance 450 Intake: Intake, IV Titration 450 Amount Sodium Chloride 0.9% 1, 450 000 ml @ 75 mls/hr IV . [id number] [facility] Rx#:[id number] Other: Voiding Method Toilet Toilet # Voids 1 1 1 Weight 83.007 kg PHYSICAL EXAMINATION: Patient is lying in the bed comfortably, no acute distress, awake alert and oriented.. HEENT: Normocephalic. Neck is supple. Pupils reactive. Nostrils clear. Oral cavity is moist. Ears reveal no drainage. Neck reveals no JVD, carotid bruits, or thyromegaly. CHEST EXAMINATION: Trachea is central. Symmetrical expansion. Lung manzo clear to auscultation and percussion. CARDIAC: Normal S1, S2 with no gallops. No murmurs ABDOMEN: Soft. Bowel sounds normal. No organomegaly. No abdominal bruits. Extremities: reveal no edema. No clubbing or cyanosis Neurologically awake, alert, oriented x3 with well-coordinated movements. No f ocal deficits noted Skin: No rash or skin lesions. Psychiatric: Coperative. Nonsuicidal Musculoskeletal: No joint swelling or deformity. Normal range of motion. Results CBC & Chem 7: 03/31/20 17:45 04/01/20 10:35 Labs: Abnormal Lab Results - Last 24 Hours (Table) 03/31/20 03/31/20 03/31/20 Range/Units 17:45 17:45 17:45 RBC 4.04 L (4.30-5.90) m/uL Hgb 12.0 L (13.0-17.5) gm/dL Hct 35.4 L (39.0-53.0) % Sodium 131 L (137-145) mmol/L Potassium 5.3 H (3.5-5.1) mmol/L Chloride 95 L (98-107) mmol/L BUN 49 H (9-20) mg/dL Creatinine 3.02 H (0.66-1.25) mg/dL Glucose 508 H* (74-99) mg/dL POC Glucose (mg/dL) (75-99) mg/dL Plasma Lactic Acid Don 2.5 H* (0.7-2.0) mmol/L Alkaline Phosphatase 192 H (38-126) U/L 03/31/20 03/31/20 04/01/20 Range/Units 20:00 20:48 07:23 RBC (4.30-5.90) m/uL Hgb (13.0-17.5) gm/dL Hct (39.0-53.0) % Sodium (137-145) mmol/L Potassium (3.5-5.1) mmol/L Chloride (98-107) mmol/L BUN (9-20) mg/dL Creatinine (0.66-1.25) mg/dL Glucose (74-99) mg/dL POC Glucose (mg/dL) 202 H 188 H 139 H (75-99) mg/dL Plasma Lactic Acid Don (0.7-2.0) mmol/L Alkaline Phosphatase (38-126) U/L 04/01/20 04/01/20 Range/Units 10:35 11:37 RBC (4.30-5.90) m/uL Hgb (13.0-17.5) gm/dL Hct (39.0-53.0) % Sodium 134 L (137-145) mmol/L Potassium (3.5-5.1) mmol/L Chloride (98-107) mmol/L BUN 51 H (9-20) mg/dL Creatinine 2.61 H (0.66-1.25) mg/dL Glucose 336 H (74-99) mg/dL POC Glucose (mg/dL) 343 H (75-99) mg/dL Plasma Lactic Acid Don (0.7-2.0) mmol/L Alkaline Phosphatase (38-126) U/L Thrombosis Risk Factor Assmnt - DVT/VTE Prophylaxis DVT/VTE Prophylaxis: Pharmacologic Prophylaxis ordered - Choose All That Apply Each Factor Represents 1 point: Age 41-60 years Thrombosis Risk Factor Assessment Total Risk Factor Score: 1 Thrombosis Risk Factor Assessment Level: Low Risk Assessment and Plan Assessment: Hyperglycemia with uncontrolled diabetes type 2 Acute kidney injury likely secondary to prerenal. Pseudohyponatremia Lactic acidosis secondary to dehydration and tissue perfusion Recent back abscess status post incision and drainage and completed antibiotic course with vancomycin for 2 weeks GI and DVT prophylaxis Bilateral diabetic peripheral neuropathy History of gout Hyperlipidemia Previous history of smoking Plan: Patient be continued on IV hydration and started back on insulin regimen. Adjust dose as needed. Continue with insulin sliding scale. Diuretics on hold. Monitor renal function. Nephrology is on board. Follow-up closely and further recommendations based on the clinical course. Time with Patient: Greater than 30
[2020-04-02] MEDS: SODIUM CHLORIDE 0.9% 1,000 ML IV SCH ×2 (02:57→15:27)
[2020-04-02 03:22] LABS: Glucose,Whole Blood 64 mg/dL (75-99)
[2020-04-02 03:51] LABS: Glucose,Whole Blood 130 mg/dL (75-99)
[2020-04-02 07:31] LABS: Glucose,Whole Blood 108 mg/dL (75-99)
[2020-04-02 07:38] LABS: Calcium 8.1 mg/dL (8.4-10.2); Potassium 4.7 mmol/L (3.5-5.1)
[2020-04-02] MEDS: INSULIN ASPART (NovoLOG) 100 UNIT/ML VIAL SQ SCH ×4 (07:42→20:29)
[2020-04-02] MEDS: PANTOPRAZOLE 40 MG TABLET PO SCH (07:44)
[2020-04-02] MEDS: GABAPENTIN 300 MG CAP PO SCH ×3 (07:44→20:29)
[2020-04-02] MEDS: DULoxetine HCL 60 MG CAPSULE.DR PO SCH (07:44)
--- NOTE | 2020-04-02 09:27 | CONS ---
CONSULTATION DATE OF SERVICE: 04/01/2020. OPHTHALMOLOGY CONSULT: CHIEF COMPLAINT: Blurred vision. HISTORY OF PRESENT ILLNESS: Mr. Squires is a 50-year-old male with a long history of poor vision in both eyes. Patient has a history of diabetic retinopathy in both eyes and he is currently under the care of a retina specialist. The patient explains that he gets regular treatment with Avastin injections and has an appointment next week with his research advisor as an outpatient. The blurred vision is moderate and has been stable for several years. There are no recent changes in vision. There is no pain or flashes or floaters. REVIEW OF SYSTEMS: The patient reports difficulty keeping his fluids, and keeping hydrated. There is no pain, no difficulty with gait, no dizziness, no skin abnormalities or rashes, no dysuria or hematuria. PAST MEDICAL HISTORY: Significant for diabetes mellitus, hyperlipidemia, gout, renal failure. SOCIAL HISTORY: Former smoker. Patient resides with his aunt and uncle. He denies drug use. MEDICATIONS: Omeprazole, Nitrostat, Ozempic, Lasix, [place], insulin. ALLERGIES: No known drug allergies. OPHTHALMIC EXAM: Visual acuity with near without correction is 2100 in the right eye and 2200 in the left eye. Extraocular movements are full. Pupils are equal, round, and reactive to light accommodation. There is no APD. Intra-ocular pressures are soft to palpation. Anterior examination is essentially within normal limits. Posterior examination reveals retinal hemorrhages in both retinas. ASSESSMENT AND PLAN: 1. Proliferative diabetic retinopathy, bilateral. The patient is currently under the care of a retina specialist and was recently seen by his research advisor. The patient has an appointment with his research advisor next week. The patient understands the importance of keeping his blood sugars under control. 2. Diabetes mellitus type 2. Based on his retinopathy, his blood sugars need to be better controlled. He may have additional sequela from his diabetes including early cataracts or neovascular glaucoma. These additional issues need to be evaluated in an outpatient setting. I recommend the patient see me in the office in the next several weeks for evaluation of his additional possible ophthalmic sequela. He understands the importance of followup. 3. Thank you for allowing me to participate in this patient's care. MMODL / IJN: [id number] /
--- NOTE | 2020-04-02 09:33 | P.PN ---
Subjective Patient is seen in follow-up for acute kidney injury. Renal function is improving. Creatinine 1.88 today. Good urine output. Did have loose bowel movement this morning. Tolerating oral intake. Vital signs are stable. General: The patient appeared well nourished and normally developed. HEENT: Head exam is unremarkable. Neck is without jugular venous distension. LUNGS: Breath sounds decreased. HEART: Rate and Rhythm are regular. ABDOMEN: Soft, nontender. EXTREMITITES: No clubbing, cyanosis, or edema. Objective - Vital Signs Vital signs: Vital Signs Temp 98.0 F 04/02/20 07:34 Pulse 92 04/02/20 07:34 Resp 16 04/02/20 07:34 BP 168/84 04/02/20 07:34 Pulse Ox 96 04/02/20 07:34 Intake & Output 04/01/20 04/02/20 04/02/20 18:59 06:59 18:59 Intake Total 450 Balance 450 Intake: Intake, IV Titration 450 Amount Sodium Chloride 0.9% 1, 450 000 ml @ 75 mls/hr IV . [id number] [facility] Rx#:[id number] Other: Voiding Method Toilet Toilet # Voids 1 1 - Labs CBC & Chem 7: 03/31/20 17:45 04/02/20 06:59 Labs: Abnormal Lab Results - Last 24 Hours (Table) 04/01/20 04/01/20 04/01/20 Range/Units 10:35 11:37 11:46 Sodium 134 L (137-145) mmol/L Chloride (98-107) mmol/L BUN 51 H (9-20) mg/dL Creatinine 2.61 H (0.66-1.25) mg/dL Glucose 336 H (74-99) mg/dL POC Glucose (mg/dL) 343 H (75-99) mg/dL Calcium (8.4-10.2) mg/dL Urine Protein 1+ H (Negative) Urine Glucose (UA) 4+ H (Negative) Urine Bacteria Rare H (None) /hpf Hyaline Casts 16 H (0-2) /lpf Urine Mucus Rare H (None) /hpf 04/01/20 04/01/20 04/02/20 Range/Units 16:31 21:20 03:20 Sodium (137-145) mmol/L Chloride (98-107) mmol/L BUN (9-20) mg/dL Creatinine (0.66-1.25) mg/dL Glucose (74-99) mg/dL POC Glucose (mg/dL) 349 H 246 H 64 L (75-99) mg/dL Calcium (8.4-10.2) mg/dL Urine Protein (Negative) Urine Glucose (UA) (Negative) Urine Bacteria (None) /hpf Hyaline Casts (0-2) /lpf Urine Mucus (None) /hpf 04/02/20 04/02/20 04/02/20 Range/Units 03:49 06:59 07:28 Sodium (137-145) mmol/L Chloride 108 H (98-107) mmol/L BUN 40 H (9-20) mg/dL Creatinine 1.88 H (0.66-1.25) mg/dL Glucose 119 H (74-99) mg/dL POC Glucose (mg/dL) 130 H 108 H (75-99) mg/dL Calcium 8.1 L (8.4-10.2) mg/dL Urine Protein (Negative) Urine Glucose (UA) (Negative) Urine Bacteria (None) /hpf Hyaline Casts (0-2) /lpf Urine Mucus (None) /hpf Assessment and Plan Plan: Assessment: 1. Acute kidney injury mostly prerenal secondary to hypovolemia secondary to hyperglycemia and diuretics. Creatinine 3.02 on admission and is down to 1.88 today. Baseline creatinine near 1. No hydronephrosis noted on kidney ultrasound. 2. Hypertonic hyponatremia secondary to hyperglycemia. Corrected sodium in the normal range. Stable. 3. Recent lower back abscess status post drainage and completion of IV vancomycin for 2 weeks. Vancomycin level not elevated. 4. Insulin-dependent diabetes mellitus. 5. Proteinuria. Can be nonspecific in the setting of dehydration and acute kidney injury. Further workup outpatient. Plan: Maintain normal saline at 75 mL an hour. Continue to hold diuretics. Avoid nephrotoxins.
--- NOTE | 2020-04-02 10:58 | P.GSCN ---
History of Present Illness Consult date: 04/02/20 Reason for Consult: drain removal Requesting physician: Carol Sparks History of present illness: CHIEF COMPLAINT: Drain removal HISTORY OF PRESENT ILLNESS: 50-year-old male who is known to surgical services secondary to recent incision and drainage of complex lower back abscess with [place] drain insertion on 03/13/2020. Patient is readmitted to the hospital secondary to acute kidney injury and hyperglycemia. General surgery was consulted for drain removal. Patient examined at the bedside with Dr. Feng. Patient denies pain or discomfort to back. Reports minimal drainage from wound. Denies fever or chills. PAST MEDICAL HISTORY: See list. PAST SURGICAL HISTORY: See list. MEDICATIONS: See list. ALLERGIES: See list. SOCIAL HISTORY: No illicit drug use. History of nicotine dependence. REVIEW OF SYSTEMS: CONSTITUTIONAL: Denies fever or chills. HEENT: Denies eye pain. Reports vision changes. Denies hemoptysis ENDOCRINE: Denies heat or cold intolerance. CARDIOVASCULAR: Denies chest pain or pressure. RESPIRATORY: No shortness of breath. GASTROINTESTINAL: Denies abdominal pain. Denies nausea or vomiting. NEURO: Denies history of seizures. PSYCH: No depression or suicidal ideation. History of anxiety HEMATOLOGIC: Denies bleeding disorders. LYMPHATIC: The patient denies any lumps and bumps around the neck. GENITOURINARY: Denies any blood in urine or increased urinary frequency. MUSCULOSKELETAL: Denies myalgias. Denies joint swelling. Denies decreased range of motion beyond patients baseline. SKIN: Denies pruitis. Denies rash. History of recent back abscess. PHYSICAL EXAM: VITAL SIGNS: Reviewed GENERAL: Well-developed in no acute distress. HEENT: No sclera icterus. Extraocular movements grossly intact. Moist buccal mucosa. Head is atraumatic, normocephalic. Hears conversational speech. No nasal drainage. NECK: Supple without lymphadenopathy. CHEST: Non-labored respirations and equal bilateral excursions. CARDIOVASCULAR: Regular rate with regular rhythm. Palpable 2+ radial pulses. ABDOMEN: Soft. Nondistended. Nontender MUSCULOSKELETAL: No clubbing or cyanosis. NEUROLOGIC: No focal or lateralizing signs. Cranial nerves II through XII grossly intact. PSYCH: Appropriate affect. Alert and oriented to person, place and time. SKIN: Well perfused. Good skin turgor. Hubert drain to back intact with no drainage present. LABORATORY DATA: WBC 7.2. Hemoglobin 12.0. Platelet count 269. Sodium 138. Potassium 4.7. BUN 40. Creatinine 1.8. Magnesium 2.0. ASSESSMENT: 1. History of back abscess, s/p I&D and hubert drain placement PLAN: Hubert drain removed at the bedside. Patient tolerated well. Skin cleaned and new dressing applied. Patient may follow up outpatient. We will sign off. Please re-consult if needed. Nurse practitioner note has been reviewed by physician. Signing provider agrees with the documented findings, assessment, and plan of care. Past Medical History Past Medical History: Diabetes Mellitus, Hyperlipidemia Additional Past Medical History / Comment(s): IDDM type II, neuropathy bilateral feet, gout History of Any Multi-Drug Resistant Organisms: MRSA Year Discovered:: 03/13/20 MDRO Source:: MRSA BACK Past Surgical History: Cholecystectomy Additional Past Surgical History / Comment(s): I&D scrotal abscess, I&D back abscess Past Anesthesia/Blood Transfusion Reactions: No Reported Reaction Past Psychological History: Anxiety Additional Psychological History / Comment(s): Pt resides with his aunt and uncle. He is independent. He works in [employer]. Smoking Status: Former smoker Past Alcohol Use History: Occasional Additional Past Alcohol Use History / Comment(s): Pt started smoking in 1987 and quit 2 weeks ago. Past Drug Use History: None Reported - Past Family History Mother Family Medical History: Diabetes Mellitus Father History Unknown: Yes Medications and Allergies Home Medications Medication Instructions Recorded Confirmed Type Omeprazole [PriLOSEC] 40 mg PO AC-BRKFST #14 capsule. 11/04/19 03/31/20 Rx Nitroglycerin Sl Tabs [Nitrostat] 0.4 mg SUBLINGUAL Q5M PRN #30 tab 11/05/19 03/31/20 Rx Semaglutide [Ozempic] 1.5 ml SQ TU 03/11/20 03/31/20 History Acetaminophen Tab [Tylenol] 650 mg PO Q6HR PRN tab 03/20/20 03/31/20 Rx Albuterol Sulfate [Ventolin HFA] 2 puff INHALATION RT-Q6H PRN #1 03/20/20 Rx inhaler Furosemide [Lasix] 40 mg PO DAILY #15 tablet 03/20/20 03/31/20 Rx guaiFENesin-DM 100-10MG/5ML 10 ml PO Q6H PRN #70 ml 03/20/20 03/31/20 Rx [Robitussin DM] Gabapentin 800 mg PO TID 03/31/20 03/31/20 History HYDROcodone/APAP 5-325MG [[place] 1 tab PO DAILY PRN 03/31/20 03/31/20 History 5-325] Insulin Glargine,Hum.rec.anlog 60 unit SQ HS 03/31/20 03/31/20 History [Basaglar Kwikpen U-100] DULoxetine HCL [Cymbalta] 60 mg PO DAILY 04/01/20 04/01/20 History Allergies Allergy/AdvReac Type Severity Reaction Status Date / Time No Known Allergies Allergy Verified 03/31/20 19:45 Surgical - Exam Vital Signs Temp Pulse Resp BP Pulse Ox 98.8 F 90 18 72/48 99 03/31/20 17:18 03/31/20 17:18 03/31/20 17:18 03/31/20 17:18 03/31/20 17:18 Results - Labs 03/31/20 17:45 04/02/20 06:59 Abnormal Lab Results - Last 24 Hours (Table) 04/01/20 04/01/20 04/01/20 Range/Units 10:35 11:37 11:46 Sodium 134 L (137-145) mmol/L Chloride (98-107) mmol/L BUN 51 H (9-20) mg/dL Creatinine 2.61 H (0.66-1.25) mg/dL Glucose 336 H (74-99) mg/dL POC Glucose (mg/dL) 343 H (75-99) mg/dL Calcium (8.4-10.2) mg/dL Urine Protein 1+ H (Negative) Urine Glucose (UA) 4+ H (Negative) Urine Bacteria Rare H (None) /hpf Hyaline Casts 16 H (0-2) /lpf Urine Mucus Rare H (None) /hpf 04/01/20 04/01/20 04/02/20 Range/Units 16:31 21:20 03:20 Sodium (137-145) mmol/L Chloride (98-107) mmol/L BUN (9-20) mg/dL Creatinine (0.66-1.25) mg/dL Glucose (74-99) mg/dL POC Glucose (mg/dL) 349 H 246 H 64 L (75-99) mg/dL Calcium (8.4-10.2) mg/dL Urine Protein (Negative) Urine Glucose (UA) (Negative) Urine Bacteria (None) /hpf Hyaline Casts (0-2) /lpf Urine Mucus (None) /hpf 04/02/20 04/02/20 04/02/20 Range/Units 03:49 06:59 07:28 Sodium (137-145) mmol/L Chloride 108 H (98-107) mmol/L BUN 40 H (9-20) mg/dL Creatinine 1.88 H (0.66-1.25) mg/dL Glucose 119 H (74-99) mg/dL POC Glucose (mg/dL) 130 H 108 H (75-99) mg/dL Calcium 8.1 L (8.4-10.2) mg/dL Urine Protein (Negative) Urine Glucose (UA) (Negative) Urine Bacteria (None) /hpf Hyaline Casts (0-2) /lpf Urine Mucus (None) /hpf Diabetes panel 04/01/20 04/02/20 Range/Units 10:35 06:59 Sodium 134 L 138 (137-145) mmol/L Potassium 4.7 4.7 (3.5-5.1) mmol/L Chloride 102 108 H (98-107) mmol/L Carbon Dioxide 24 27 (22-30) mmol/L BUN 51 H 40 H (9-20) mg/dL Creatinine 2.61 H 1.88 H (0.66-1.25) mg/dL Glucose 336 H 119 H (74-99) mg/dL Calcium 8.4 8.1 L (8.4-10.2) mg/dL Calcium panel 04/01/20 04/02/20 Range/Units 10:35 06:59 Calcium 8.4 8.1 L (8.4-10.2) mg/dL Pituitary panel 04/01/20 04/02/20 Range/Units 10:35 06:59 Sodium 134 L 138 (137-145) mmol/L Potassium 4.7 4.7 (3.5-5.1) mmol/L Chloride 102 108 H (98-107) mmol/L Carbon Dioxide 24 27 (22-30) mmol/L BUN 51 H 40 H (9-20) mg/dL Creatinine 2.61 H 1.88 H (0.66-1.25) mg/dL Glucose 336 H 119 H (74-99) mg/dL Calcium 8.4 8.1 L (8.4-10.2) mg/dL Adrenal panel 04/01/20 04/02/20 Range/Units 10:35 06:59 Sodium 134 L 138 (137-145) mmol/L Potassium 4.7 4.7 (3.5-5.1) mmol/L Chloride 102 108 H (98-107) mmol/L Carbon Dioxide 24 27 (22-30) mmol/L BUN 51 H 40 H (9-20) mg/dL Creatinine 2.61 H 1.88 H (0.66-1.25) mg/dL Glucose 336 H 119 H (74-99) mg/dL Calcium 8.4 8.1 L (8.4-10.2) mg/dL
[2020-04-02 11:19] LABS: Glucose,Whole Blood 74 mg/dL (75-99)
[2020-04-02] MEDS: ACETAMINOPHEN TAB 325 MG TAB PO PRN ×2 (13:49→19:45)
--- NOTE | 2020-04-02 14:10 | XR ---
EXAMINATION TYPE: XR chest 1V DATE OF EXAM: 04/02/2020 COMPARISON: 03/31/2020 HISTORY: Cough TECHNIQUE: Single frontal view of the chest is obtained. FINDINGS: Bilateral consolidation and reduced inspiration. No pneumothorax. Heart size normal. No pl eural effusion. IMPRESSION: Bilateral lower lobe infiltrate or atelectasis correlate clinically.
[2020-04-02 15:21] VITALS: BMI 28.6
[2020-04-02] MEDS: ALBUTEROL NEBULIZED 2.5 MG/3 ML INHALATION PRN (15:50)
[2020-04-02 16:53] LABS: Glucose,Whole Blood 133 mg/dL (75-99)
[2020-04-02] MEDS: HEPARIN SODIUM,PORCINE 5,000 UNIT/ML 1 ML VIAL SQ SCH ×2 (17:04→23:45)
[2020-04-02 20:12] VITALS: RESP 18
[2020-04-02 20:19] LABS: Glucose,Whole Blood 300 mg/dL (75-99)
[2020-04-02] MEDS: INSULIN DETEMIR (LEVEMIR) 100 UNIT/ML SYR SQ SCH (20:28)
--- NOTE | 2020-04-03 00:27 | P.PN ---
Subjective Progress Note Date: 04/02/20 Principal diagnosis: Hyperglycemia with uncontrolled diabetes type 2 insulin-dependent Acute kidney injury Patient is been 50-year-old male with a known history of diabetes type 2 insulin-dependent, bilateral peripheral neuropathy, gout, recent IND of the back abscess status post antibiotic course and previous history of smoking came to ER with complaints of generalized weakness and blurry vision patient was also complaining of cough. No chest pain or shortness of breath. No fever no chills. Patient was recently admitted to the hospital and was discharged about a week ago. Completed antibiotic course for MRSA infection and abscess on the left side of On admission lab data laboratory data showed WBC 7.2, hemoglobin 12.0 and platelets 269 Sodium 131, potassium 5.3, chloride 95, BUN 14 and creatinine 03.02 Blood sugar is 508 Lactic acid 2.5 Alk phos 192 CRP less than 5 Troponin less than 0.012 EKG showed normal sinus rhythm Chest x-ray showed no acute cardiopulmonary process Patient was hypotensive with blood pressure 72/48 on admission Pulse is 90 respiration 18 pulse ox 99% on room air 04/02/2020 Patient is currently sitting on the chair comfortably. No complaints of chest pain. Patient complains of pleuritic chest pain with deep breathing. Chest x-ray showed bibasilar atelectasis. Unlikely pneumonia. No fever no chills. No leukocytosis. No cough or sputum production. Otherwise renal function is improving with creatinine level 1.88 today. Nephrology is following. Patient was seen by general surgery due to recent left back abscess. [place] drain was removed. Antibiotic course have been completed in the form of vancomycin at home. Patient is tolerating oral diet. Encouraged with incentive spirometry. Objective - Vital Signs Vital signs: Vital Signs Temp 98.0 F 04/02/20 20:11 Pulse 102 H 04/02/20 20:11 Resp 18 04/02/20 20:11 BP 156/78 04/02/20 20:11 Pulse Ox 98 04/02/20 20:11 Intake & Output 04/02/20 04/02/20 04/03/20 06:59 18:59 06:59 Intake Total 540 Balance 540 Weight 83.007 kg Intake: Oral 540 Other: Voiding Method Toilet Toilet # Voids 1 2 2 - Exam PHYSICAL EXAMINATION: Patient is lying in the bed comfortably, no acute distress, awake alert and oriented.. HEENT: Normocephalic. Neck is supple. Pupils reactive. Nostrils clear. Oral cavity is moist. Ears reveal no drainage. Neck reveals no JVD, carotid bruits, or thyromegaly. CHEST EXAMINATION: Trachea is central. Symmetrical expansion. Lung manzo clear to auscultation and percussion. CARDIAC: Normal S1, S2 with no gallops. No murmurs ABDOMEN: Soft. Bowel sounds normal. No organomegaly. No abdominal bruits. Extremities: reveal no edema. No clubbing or cyanosis Neurologically awake, alert, oriented x3 with well-coordinated movements. No focal deficits noted Skin: No rash or skin lesions. Psychiatric: Coperative. Nonsuicidal Musculoskeletal: No joint swelling or deformity. Normal range of motion. - Labs CBC & Chem 7: 03/31/20 17:45 04/02/20 06:59 Labs: Abnormal Lab Results - Last 24 Hours (Table) 04/02/20 04/02/20 04/02/20 Range/Units 03:20 03:49 06:59 Chloride 108 H (98-107) mmol/L BUN 40 H (9-20) mg/dL Creatinine 1.88 H (0.66-1.25) mg/dL Glucose 119 H (74-99) mg/dL POC Glucose (mg/dL) 64 L 130 H (75-99) mg/dL Calcium 8.1 L (8.4-10.2) mg/dL 04/02/20 04/02/20 04/02/20 Range/Units 07:28 11:18 16:50 Chloride (98-107) mmol/L BUN (9-20) mg/dL Creatinine (0.66-1.25) mg/dL Glucose (74-99) mg/dL POC Glucose (mg/dL) 108 H 74 L 133 H (75-99) mg/dL Calcium (8.4-10.2) mg/dL 04/02/20 Range/Units 20:17 Chloride (98-107) mmol/L BUN (9-20) mg/dL Creatinine (0.66-1.25) mg/dL Glucose (74-99) mg/dL POC Glucose (mg/dL) 300 H (75-99) mg/dL Calcium (8.4-10.2) mg/dL Assessment and Plan Assessment: Hyperglycemia with uncontrolled diabetes type 2 Acute kidney injury likely secondary to prerenal. Bibasilar atelectasis unlikely pneumonia Pseudohyponatremia Lactic acidosis secondary to dehydration and tissue perfusion Recent back abscess status post incision and drainage and completed antibiotic course with vancomycin for 2 weeks GI and DVT prophylaxis Bilateral diabetic peripheral neuropathy History of gout Hyperlipidemia Previous history of smoking Plan: Patient be continued on IV hydration and started back on insulin regimen. Adjust dose as needed. Continue with insulin sliding scale. Diuretics on hold. Monitor renal function. Nephrology is on board. Follow-up closely and further recommendations based on the clinical course. Time with Patient: Greater than 30
[2020-04-03 01:25] LABS: Glucose,Whole Blood 56 mg/dL (75-99)
[2020-04-03 01:42] LABS: Glucose,Whole Blood 53 mg/dL (75-99)
[2020-04-03 02:00] LABS: Glucose,Whole Blood 62 mg/dL (75-99)
[2020-04-03 02:22] LABS: Glucose,Whole Blood 117 mg/dL (75-99)
[2020-04-03 03:25] LABS: Glucose,Whole Blood 144 mg/dL (75-99)
[2020-04-03] MEDS: SODIUM CHLORIDE 0.9% 1,000 ML IV SCH (04:34)
[2020-04-03 07:03] LABS: Glucose,Whole Blood 120 mg/dL (75-99)
[2020-04-03] MEDS: DULoxetine HCL 60 MG CAPSULE.DR PO SCH (07:23)
[2020-04-03] MEDS: INSULIN ASPART (NovoLOG) 100 UNIT/ML VIAL SQ SCH ×2 (07:24→11:36)
[2020-04-03] MEDS: ACETAMINOPHEN TAB 325 MG TAB PO PRN (08:03)
[2020-04-03] MEDS: HEPARIN SODIUM,PORCINE 5,000 UNIT/ML 1 ML VIAL SQ SCH ×2 (08:06→15:41)
[2020-04-03] MEDS: GABAPENTIN 300 MG CAP PO SCH ×2 (08:07→15:41)
[2020-04-03] MEDS: PANTOPRAZOLE 40 MG TABLET PO SCH (08:07)
[2020-04-03 08:54] VITALS: TEMP 97.9
[2020-04-03 08:58] LABS: Basophils # (A) 0.1 k/uL (0-0.2); Basophils % (A) 1 %; Eosinophils # (A) 0.5 k/uL (0-0.7); Eosinophils % (A) 9 %; HCT 32.5 % (39.0-53.0); HGB 10.6 gm/dL (13.0-17.5); Lymphocytes # (A) 1.2 k/uL (1.0-4.8); Lymphocytes % (A) 24 %; MCH 28.6 pg (25.0-35.0); MCHC 32.7 g/dL (31.0-37.0); MCV 87.7 fL (80.0-100.0); Mean Platelet Volume 8.5; Monocytes # (A) 0.3 k/uL (0-1.0); Monocytes % (A) 6 %; Neutrophils # (A) 2.9 k/uL (1.3-7.7); Neutrophils % (A) 56 %; Platelet Count 212 k/uL (150-450); RBC 3.71 m/uL (4.30-5.90); RDW 13.5 % (11.5-15.5); WBC 5.2 k/uL (3.8-10.6)
[2020-04-03 09:16] LABS: Calcium 8.1 mg/dL (8.4-10.2); Potassium 4.9 mmol/L (3.5-5.1)
--- NOTE | 2020-04-03 11:09 | P.PN ---
Subjective Patient is seen in follow-up for acute kidney injury. Renal function is improving. Creatinine 1.37 today. Good urine output. No edema. Oral intake is good. No active complaints. Vital signs are stable. General: The patient appeared well nourished and normally developed. HEENT: Head exam is unremarkable. Neck is without jugular venous distension. LUNGS: Breath sounds decreased. HEART: Rate and Rhythm are regular. ABDOMEN: Soft, nontender. EXTREMITITES: No clubbing, cyanosis, or edema. Objective - Vital Signs Vital signs: Vital Signs Temp 97.9 F 04/03/20 08:52 Pulse 88 04/03/20 08:52 Resp 18 04/03/20 08:52 BP 185/90 04/03/20 09:35 Pulse Ox 99 04/03/20 08:52 Intake & Output 04/02/20 04/03/20 04/03/20 18:59 06:59 18:59 Intake Total 540 500 Balance 540 500 Weight 83.007 kg Intake: Oral 540 500 Other: Voiding Method Toilet Toilet Toilet # Voids 2 1 - Labs CBC & Chem 7: 04/03/20 08:18 04/03/20 08:18 Labs: Abnormal Lab Results - Last 24 Hours (Table) 04/02/20 04/02/20 04/02/20 Range/Units 11:18 16:50 20:17 RBC (4.30-5.90) m/uL Hgb (13.0-17.5) gm/dL Hct (39.0-53.0) % BUN (9-20) mg/dL Creatinine (0.66-1.25) mg/dL Glucose (74-99) mg/dL POC Glucose (mg/dL) 74 L 133 H 300 H (75-99) mg/dL Calcium (8.4-10.2) mg/dL 04/03/20 04/03/20 04/03/20 Range/Units 01:22 01:38 01:53 RBC (4.30-5.90) m/uL Hgb (13.0-17.5) gm/dL Hct (39.0-53.0) % BUN (9-20) mg/dL Creatinine (0.66-1.25) mg/dL Glucose (74-99) mg/dL POC Glucose (mg/dL) 56 L 53 L 62 L (75-99) mg/dL Calcium (8.4-10.2) mg/dL 04/03/20 04/03/20 04/03/20 Range/Units 02:19 03:22 07:03 RBC (4.30-5.90) m/uL Hgb (13.0-17.5) gm/dL Hct (39.0-53.0) % BUN (9-20) mg/dL Creatinine (0.66-1.25) mg/dL Glucose (74-99) mg/dL POC Glucose (mg/dL) 117 H 144 H 120 H (75-99) mg/dL Calcium (8.4-10.2) mg/dL 04/03/20 04/03/20 Range/Units 08:18 08:18 RBC 3.71 L (4.30-5.90) m/uL Hgb 10.6 L (13.0-17.5) gm/dL Hct 32.5 L (39.0-53.0) % BUN 27 H (9-20) mg/dL Creatinine 1.37 H (0.66-1.25) mg/dL Glucose 144 H (74-99) mg/dL POC Glucose (mg/dL) (75-99) mg/dL Calcium 8.1 L (8.4-10.2) mg/dL Assessment and Plan Plan: Assessment: 1. Acute kidney injury mostly prerenal secondary to hypovolemia secondary to hyperglycemia and diuretics. Creatinine 3.02 on admission and is down to 1.37 today. Baseline creatinine near 1. No hydronephrosis noted on kidney ultrasound. 2. Hypertonic hyponatremia secondary to hyperglycemia. Corrected sodium in the normal range. Stable. 3. Recent lower back abscess status post drainage and completion of IV vancomycin for 2 weeks. Vancomycin level not elevated. 4. Insulin-dependent diabetes mellitus. 5. Proteinuria. Can be nonspecific in the setting of dehydration and acute kidney injury. Further workup outpatient. Plan: Hep-Lock IV fluids. Continue to hold diuretics. Avoid nephrotoxins. Monitor blood pressure. If remains persistently above 140/90, can add amlodipine.
[2020-04-03 11:34] LABS: Glucose,Whole Blood 118 mg/dL (75-99)
[2020-04-03 12:01] LABS: Glucose,Whole Blood 79 mg/dL (75-99)
[2020-04-03 12:27] LABS: Glucose,Whole Blood 122 mg/dL (75-99)
[2020-04-03] MEDS ORDERED: amLODIPine 5 MG TAB PO SCH (14:45)
[2020-04-03 15:06] VITALS: PULSE 99
[2020-04-03 16:17] VITALS: BP 187/94
== END 2020-04-03 16:44 | disposition home health service (06) | DRG 683 ==
LOC: EC 16:36 → 4SSUR 19:13
PROVIDERS: ADMIT Hospitalist; ATTEND Hospitalist
PROC: 2W55XYZ Removal of Other Device on Back (ICD-10-PCS; principal; 2020-04-02)
DX: N17.9 Acute kidney failure, unspecified (principal); E87.2 Acidosis; E87.1 Hypo-osmolality and hyponatremia; J98.11 Atelectasis; Z11.59 Encounter for screening for other viral diseases; E11.3593 Type 2 diabetes mellitus with proliferative diabetic retinopathy without macular edema, bilateral; E11.36 Type 2 diabetes mellitus with diabetic cataract; E11.42 Type 2 diabetes mellitus with diabetic polyneuropathy; I95.9 Hypotension, unspecified; E11.69 Type 2 diabetes mellitus with other specified complication; E11.65 Type 2 diabetes mellitus with hyperglycemia; Z79.4 Long term (current) use of insulin; E78.5 Hyperlipidemia, unspecified; E86.0 Dehydration; M10.9 Gout, unspecified; F41.9 Anxiety disorder, unspecified; H40.89 Other specified glaucoma; R80.9 Proteinuria, unspecified; E86.1 Hypovolemia; Z71.3 Dietary counseling and surveillance; Z79.899 Other long term (current) drug therapy; Z96.89 Presence of other specified functional implants; Z86.14 Personal history of Methicillin resistant Staphylococcus aureus infection; Z87.01 Personal history of pneumonia (recurrent); Z90.49 Acquired absence of other specified parts of digestive tract; Z98.890 Other specified postprocedural states; Z87.891 Personal history of nicotine dependence; Z86.19 Personal history of other infectious and parasitic diseases; Z83.3 Family history of diabetes mellitus
CPT/HCPCS: 36415; 71045; 71046; 76770; 80048; 80053; 80202; 81001; 82330; 83605; 83735; 84484; 85025; 85610; 85730; 86140; 93005; 94640; 96360; 99285

== ENCOUNTER → 2020-05-19 | Outpatient (CLI) | payer OTHER ==
--- NOTE | 2020-05-19 17:38 | ECHOF ---
Referral Reason:E11.49 Type 2 diabetes mellitus with other diabeti MEASUREMENTS -------- HEIGHT: 170.2 cm WEIGHT: 95.3 kg BP: IVSd: 1.0 cm (0.6 - 1.1) LVIDd: 5.1 cm (3.9 - 5.3) LVPWd: 1.1 cm (0.6 - 1.1) EDV(Teich): 124 ml IVSs: 1.9 cm LVIDs: 3.0 cm LVPWs: 1.7 cm %IVS Thck: 86 % ESV(Teich): 36 ml EF(Teich): 71 % %FS: 41 % SV(Teich): 88 ml IVC: 16.69 mm LALs A4C: 4.5 cm LAAs A4C: 14.6 cm LAESV A-L A4C: 40 ml LAESV MOD A4C: 35 ml LALs A2C: 5.0 cm LAAs A2C: 17.9 cm LAESV A-L A2C: 54 ml LAESV MOD A2C: 51 ml LAESV(A-L): 49 ml LAESV Index (A-L): 23.63 ml/m Ao Diam: 2.9 cm (2.0 - 3.7) LA Diam: 3.9 cm (2.7 - 3.8) AV Cusp: 2.0 cm (1.5 - 2.6) EPSS: 1.5 cm MV E Tawanda: 1.03 m/s MV DecT: 131 ms MV Dec Eaton: 7.8 m/s MV A Tawanda: 0.93 m/s MV E/A Ratio: 1.10 MV PHT: 38 ms AV Vmax: 1.24 m/s AV maxP.13 mmHg AR Vmax: 3.45 m/s AR maxP.73 mmHg AR PHT: 322 ms AR Dec Time: 1111 ms AR Dec Eaton: 3.1 m/s TR Vmax: 2.17 m/s TR maxP.85 mmHg RAP: 5.00 mmHg RVSP: 23.85 mmHg MV EF SLOPE: 131.65 mm/s (70 - 150) MV EXCURSION: 17.70 mm (> 18.000) FINDINGS -------- This was a technically adequate study. The left ventricular size is normal. Left ventricular wall thickness is normal. Overall left vent ricular systolic function is normal with, an EF between 55 - 60 %. Normal LAP Grade 1 Diastolic Dys function. The right ventricle is normal in size. The left atrial size is normal. Normal LA size by volume 22+/-6 ml/m2. The right atrial size is normal. Interatrial and interventricular septum intact. The aortic valve is trileaflet and appears structurally normal. There is mild aortic regurgitation. The mitral valve is normal. There is trace mitral regurgitation. The tricuspid valve appears structurally normal. Trace tricuspid regurgitation present. Right clementina tricular systolic pressure is normal at < 35 mmHg. There is no pulmonic regurgitation present. The aortic root size is normal. Normal inferior vena cava with normal inspiratory collapse consistent with estimated right atrial pre ssure of 5 mmHg. There is no pericardial effusion. CONCLUSIONS -------- 1. The left ventricular size is normal. 2. Left ventricular wall thickness is normal. 3. Overall left ventricular systolic function is normal with, an EF between 55 - 60 %. 4. Normal LAP Grade 1 Diastolic Dysfunction. 5. There is mild aortic regurgitation. 6. There is trace mitral regurgitation. 7. Trace tricuspid regurgitation present. 8. There is no pericardial effusion. FLIGHT CONTROLS ENGINEER: Johana Schneider RDCS
--- NOTE | 2020-05-20 20:28 | CT ---
EXAMINATION TYPE: CT abdomen wo/w con DATE OF EXAM: 05/19/2020 COMPARISON: CT abdomen pelvis 03/13/2020. HISTORY: Elevated BP and abdominal discomfort. CT DLP: 1591.5 mGycm Automated exposure control for dose reduction was used. TECHNIQUE: Helical acquisition of images was performed from the lung bases through the top of iliac crest to include entire abdomen. CONTRAST: Performed with Oral Contrast and without and with IV Contrast, patient injected with 100 mL of Isovue 300. FINDINGS: LUNG BASES: Large bilateral pleural effusions which were not present on 03/13/2020 CT comparison. Mild calcified coronary artery disease. No significant pericardial effusion. LIVER/GB: Normal liver. Status post cholecystomy. No intrahepatic or extra hepatic biliary ductal dil atation. PANCREAS: Normal. SPLEEN: Normal. ADRENALS: Normal. KIDNEYS: No nephrolithiasis. Normal kidneys bilaterally. BOWEL: No evidence of bowel obstruction or thickening. The visualized portions of the appendix are n ormal, although not entirely seen. LYMPH NODES: No lymphadenopathy. OSSEOUS STRUCTURES: No acute osseous abnormality. PERITONEUM: No free air is visualized. No ascites. OTHER: No abdominal aortic aneurysm. There is diffuse anasarca. There is redemonstrated subcutaneous inflammatory stranding of the left flank, mildly decreased versus 03/13/2020. IMPRESSION: 1. No acute intra-abdominal process to explain patient's abdominal pain. 2. Large bilateral pleural effusions, new from 03/13/2020 CT comparison. 3. Previously demonstrated cellulitis of the left flank is mildly decreased versus 03/13/2020.
== END | disposition home or self-care (01) ==
LOC: RADECHMAIN 10:59
PROVIDERS: ATTEND Family Medicine
DX: N28.89 Other specified disorders of kidney and ureter (principal); I08.3 Combined rheumatic disorders of mitral, aortic and tricuspid valves; R06.02 Shortness of breath; R07.2 Precordial pain; E11.49 Type 2 diabetes mellitus with other diabetic neurological complication; Z79.4 Long term (current) use of insulin; N18.3 Chronic kidney disease, stage 3 (moderate)
CPT/HCPCS: 93306; 74170; 36415; Q9967

== ENCOUNTER 2020-07-25 05:01 | Inpatient (IN) | payer OTHER ==
--- NOTE | 2020-07-25 05:21 | ED ---
Chest Pain HPI - General Chief Complaint: Chest Pain Stated Complaint: Chest Pain, SOB Time Seen by Provider: 07/25/20 05:13 Source: patient, family, RN notes reviewed, old records reviewed Mode of arrival: ambulatory Limitations: no limitations - History of Present Illness Initial Comments: This is a 50-year-old male DF for evaluation recent diagnosis of valve issues with that occurs to bacteremia. Prolonged hospitalization still currently on vancomycin his infection is MRSA and his blood. Patient is having increasing shortness of breath and chest pain today. Patient also concern for significant amount of weight gain he states he is up or 50 pounds since his recent hospital admission. Occasional shortness of breath especially with MD Complaint: chest pain, other (recent diagnosis of heart infection) -: days(s) Onset: during rest Pain Location: left chest Pain Radiation: none Consistency: constant Improves With: nothing Worsens With: nothing Context: recent illness Anginal Symptoms: nausea Other Symptoms: cough Treatments Prior to Arrival: none - Related Data Home Medications Medication Instructions Recorded Confirmed Semaglutide [Ozempic] 1.5 ml SQ MO 03/11/20 07/25/20 Gabapentin 800 mg PO TID 03/31/20 07/25/20 Insulin Glargine,Hum.rec.anlog 56 unit SQ HS 03/31/20 07/25/20 [Basaglar Kwikpen U-100] DULoxetine HCL [Cymbalta] 60 mg PO DAILY 04/01/20 07/25/20 Acetaminophen Tab [Tylenol] 650 mg PO Q4H PRN 07/25/20 07/25/20 Albuterol Sulfate [Proair Hfa] 2 puff INHALATION RT-Q6H PRN 07/25/20 07/25/20 Daptomycin 800mg 800 mg IV DAILY 07/25/20 07/25/20 Fluticasone Propion/Salmeterol 1 puff INHALATION RT-BID 07/25/20 07/25/20 [Wixela 250-50 Inhub] Furosemide [Lasix] 20 mg PO DAILY 07/25/20 07/25/20 Ibuprofen [Motrin] 800 mg PO Q8H PRN 07/25/20 07/25/20 Potassium Chloride ER [K-Dur 20] 20 meq PO BID 07/25/20 07/25/20 amLODIPine [Norvasc] 5 mg PO BID 07/25/20 07/25/20 hydrALAZINE HCL [Apresoline] 25 mg PO TID 07/25/20 07/25/20 Previous Rx's Medication Instructions Recorded Omeprazole [PriLOSEC] 40 mg PO AC-LORIKFST #14 capsule. 11/04/19 Nitroglycerin Sl Tabs [Nitrostat] 0.4 mg SUBLINGUAL Q5M PRN #30 tab 11/05/19 Allergies Allergy/AdvReac Type Severity Reaction Status Date / Time No Known Allergies Allergy Verified 07/25/20 07:36 Review of Systems ROS Statement: Those systems with pertinent positive or pertinent negative responses have been documented in the HPI. ROS Other: All systems not noted in ROS Statement are negative. EKG Findings - EKG Comments: EKG Findings:: EKG shows sinus rhythm 93 NJ 164 QRS 96 QTc 447 Past Medical History Past Medical History: Heart Failure, Diabetes Mellitus, Hyperlipidemia Additional Past Medical History / Comment(s): IDDM type II, neuropathy bilateral feet, gout History of Any Multi-Drug Resistant Organisms: MRSA Date of last positivie culture/infection: 03/13/20 MDRO Source:: MRSA BACK Past Surgical History: Cholecystectomy Additional Past Surgical History / Comment(s): I&D scrotal abscess, I&D back abscess Past Anesthesia/Blood Transfusion Reactions: No Reported Reaction Past Psychological History: Anxiety Smoking Status: Former smoker Past Alcohol Use History: Occasional Past Drug Use History: None Reported - Past Family History Mother Family Medical History: Diabetes Mellitus Father History Unknown: Yes General Exam Limitations: no limitations General appearance: alert, in no apparent distress, anxious Head exam: Present: atraumatic, normocephalic, normal inspection Eye exam: Present: normal appearance, PERRL, EOMI. Absent: scleral icterus, conjunctival injection, periorbital swelling ENT exam: Present: normal exam, mucous membranes dry Neck exam: Present: normal inspection. Absent: tenderness, meningismus, lymphadenopathy Respiratory exam: Present: respiratory distress, rhonchi, accessory muscle use, decreased breath sounds, prolonged expiratory. Absent: wheezes, rales, stridor Cardiovascular Exam: Present: regular rate, normal rhythm, normal heart sounds. Absent: systolic murmur, diastolic murmur, rubs, gallop, clicks GI/Abdominal exam: Present: soft, normal bowel sounds. Absent: distended, tenderness, guarding, rebound, rigid Extremities exam: Present: normal inspection, full ROM, normal capillary refill. Absent: tenderness, pedal edema, joint swelling, calf tenderness Back exam: Present: normal inspection Neurological exam: Present: alert, oriented X3, CN II-XII intact Psychiatric exam: Present: normal affect, normal mood Skin exam: Present: warm, dry, intact, normal color. Absent: rash Course Vital Signs 07/25/20 07/25/20 05:04 06:51 Temperature 98.1 F Pulse Rate 95 87 Respiratory 22 18 Rate Blood Pressure 178/91 177/90 O2 Sat by Pulse 93 L 94 L Oximetry - Reevaluation(s) Reevaluation #1: Medical records reviewed Patient with persistent shortness of breath here in the emergency department Spoke with patient at length regarding need for diuresis, likely cardiomyopathy secondary to his recent bacterial infection, patient having difficulty understanding diagnosis, questions are attempted to be answered Patient will be admitted for diuresis and cardiology to evaluate Chest Pain MDM - MDM 50 male DF for evaluation of chest pain shortness of breath known endocarditis bacterial infection bacteremia MRSA on the ankle, the Vanco is continued, patient will have echo and evaluation regarding significant pleural effusion Disposition Clinical Impression: Endocarditis, Atypical chest pain, Pleural effusion, MRSA (methicillin resistant Staphylococcus aureus) infection Disposition: ADMITTED IP TO THIS HOSP Condition: Fair Is patient prescribed a controlled substance at d/c from ED?: No
[2020-07-25 05:33] LABS: Basophils # (A) 0.1 k/uL (0-0.2); Basophils % (A) 2 %; Eosinophils # (A) 0.2 k/uL (0-0.7); Eosinophils % (A) 4 %; HCT 30.4 % (39.0-53.0); HGB 9.9 gm/dL (13.0-17.5); Lymphocytes # (A) 0.7 k/uL (1.0-4.8); Lymphocytes % (A) 14 %; MCH 27.8 pg (25.0-35.0); MCHC 32.5 g/dL (31.0-37.0); MCV 85.5 fL (80.0-100.0); Mean Platelet Volume 7.5; Monocytes # (A) 0.4 k/uL (0-1.0); Monocytes % (A) 7 %; Neutrophils # (A) 3.6 k/uL (1.3-7.7); Neutrophils % (A) 71 %; Platelet Count 284 k/uL (150-450); RBC 3.56 m/uL (4.30-5.90); RDW 14.9 % (11.5-15.5); WBC 5.1 k/uL (3.8-10.6)
[2020-07-25 05:39] LABS: INR 1.1 (<1.2); Partial Thromboplastin Time 24.9 sec (22.0-30.0); Prothrombin Time 11.5 sec (9.0-12.0)
[2020-07-25 05:41] LABS: Albumin 3.1 g/dL (3.5-5.0); Calcium 8.5 mg/dL (8.4-10.2); Magnesium 1.8 mg/dL (1.6-2.3); Potassium 4.6 mmol/L (3.5-5.1); Total Bilirubin 0.6 mg/dL (0.2-1.3); Total Protein 6.6 g/dL (6.3-8.2)
--- NOTE | 2020-07-25 05:49 | XR ---
EXAM: XR Chest, 1 View CLINICAL HISTORY: Chest pain. TECHNIQUE: Frontal view of the chest. COMPARISON: 04/02/2020. FINDINGS: Lungs: Minimal patchy airspace disease in the mid lower lung zones. Subsegmental atelectasis left midlung zone. Pleural space: Small bilateral pleural effusions are now noted. No pneumothorax. Heart: Cardiomegaly. Mediastinum: Unremarkable. Bones/joints: Osteopenia. Other findings: Hypoaeration. IMPRESSION: 1. Cardiomegaly and small bilateral pleural effusions. Clinical correlation is advised to assess her congestive heart failure. 2. Patchy airspace disease in the mid lower lung zones bilaterally of uncertain significance. 3. Hypoaeration. 4. Osteopenia. 5. Subsegmental atelectasis left midlung zone.
[2020-07-25] MEDS ORDERED: FUROSEMIDE 10 MG/ML 4 ML VIAL IV SCH (06:45)
[2020-07-25 06:50] LABS: C Reactive Protein 6.3 mg/L (<10.0); Magnesium 1.9 mg/dL (1.6-2.3)
[2020-07-25] MEDS ORDERED: FUROSEMIDE 40 MG TAB PO SCH (09:00)
[2020-07-25] MEDS ORDERED: NITROGLYCERIN SL TABS 0.4 MG TAB SUBLINGUAL PRN (09:24)
[2020-07-25] MEDS ORDERED: ALBUTEROL NEBULIZED 2.5 MG/3 ML INHALATION PRN (09:24)
[2020-07-25] MEDS ORDERED: IBUPROFEN 800 MG TAB PO PRN (09:24)
[2020-07-25 10:20] LABS: Glucose,Whole Blood 385 mg/dL (75-99)
[2020-07-25] MEDS: PANTOPRAZOLE 40 MG TABLET PO SCH (10:23)
[2020-07-25] MEDS: INSULIN ASPART (NovoLOG) 100 UNIT/ML VIAL SQ SCH ×4 (10:23→21:29)
[2020-07-25] MEDS: METOPROLOL TARTRATE 25 MG TAB PO SCH ×2 (10:23→21:27)
[2020-07-25] MEDS: POTASSIUM CHLORIDE ER 20 MEQ TAB.ER PO SCH ×2 (10:23→21:29)
[2020-07-25] MEDS: DULoxetine HCL 60 MG CAPSULE.DR PO SCH (10:23)
[2020-07-25] MEDS: hydrALAZINE HCL 25 MG TAB PO SCH ×3 (10:23→21:27)
[2020-07-25] MEDS: ENOXAPARIN 40 MG/0.4 ML SYRINGE SQ SCH (10:23)
[2020-07-25] MEDS: amLODIPine 5 MG TAB PO SCH ×2 (10:23→21:28)
[2020-07-25] MEDS: GABAPENTIN 400 MG CAP PO SCH ×3 (11:20→21:29)
--- NOTE | 2020-07-25 11:25 | CT ---
EXAMINATION TYPE: CT chest wo con DATE OF EXAM: 07/25/2020 COMPARISON: 11/05/2019 HISTORY: dyspnea, endocarditis CT DLP: 473.[address] of the chest was performed with lung and mediastinal window settings submitted. The la ck of contrast limits evaluation of the vascular, mediastinal and parenchymal structures including th e upper abdomen. LUNGS: Moderate bilateral pleural effusions measuring AP dimension 7. Centimeters on the right and 8 cm on the left. Associated compressive atelectasis. Scattered groundglass densities within the upper lobes. MEDIASTINUM/ROCÍO: Thoracic aorta is of normal caliber with limited evaluation given lack of contrast . The heart is mildly enlarged. No evidence for mediastinal mass. No lymph nodes greater than 1cm . UPPER ABDOMEN: No significant abnormality is seen. OTHER: No significant other abnormality. IMPRESSION: 1. Moderate bilateral pleural effusions and compressive atelectasis. 2. Scattered groundglass opacities within the upper lobes may reflect acute inflammatory process.
[2020-07-25 11:49] LABS: Ferritin 74.2 ng/mL (22.0-322.0)
[2020-07-25 12:10] LABS: Glucose,Whole Blood 228 mg/dL (75-99)
--- NOTE | 2020-07-25 12:11 | P.CRDCN ---
History of Present Illness History of present illness: HISTORY OF PRESENTING ILLNESS This is a pleasant 50-year-old male past medical history significant for type 1 diabetes mellitus, hypertension, dyslipidemia and chronic nicotine dependence. He was diagnosed last month at [facility] with endocarditis and was transferred to [facility] for possible abscess. The patient believes this was located on the aortic valve. Exact details are unavailable. We have been asked to see in consultation for heart failure. He states for the previous 2-3 days he has noticed an increase in shortness of breath. He also has lower extremity edema and feels full in his abdomen. He states it feels something is pushing up from his stomach into his chest. He has some intermittent discomfort in the chest when he takes a deep breath but not with exertion. He states he's been compliant with his IV antibiotics and is sti ll has a PICC line in place. Most recent echocardiogram obtained here May 2020 reveals preserved LV systolic function with ejection fraction 55-60% with grade 1 diastolic dysfunction. DIAGNOSTICS EKG reveals sinus mechanism with no acute ST or T wave abnormalities noted. Chest xray cardiomegaly and small bilateral pleural effusions, patchy airspace disease in the mid lower lung zones bilaterally and mid lung atelectasis. CT of the chest revealed moderate bilateral pleural effusions and compressive atelectasis with scattered groundglass opacity is within the upper lobes. Laboratory reviewed, WBC 5.1, hemoglobin 9.9, platelets 284, sodium 136, potassium 4.6, creatinine 1.39, magnesium 1.9, troponin negative 2, NT proBNP 3620 and Covid negative. Current cardiac medications include Lasix 20 mg daily, amlodipine 5 mg twice a day and hydralazine 25 mg 3 times a day. REVIEW OF SYSTEMS At the time of my exam: CONSTITUTIONAL: Denies fever or chills. CARDIOVASCULAR: Complains of shortness of breath. Denies chest pain, orthopnea, PND or palpitations. RESPIRATORY: Denies cough. GASTROINTESTINAL: Denies abdominal pain, diarrhea, constipation, nausea or vomiting. MUSCULOSKELETAL: Denies myalgias. NEUROLOGIC: Denies numbness, tingling or weakness. ENDOCRINE: Denies fatigue, weight change, polydipsia or polyurina. GENITOURINARY: Denies burning, hematuria or urgency with micturation. HEMATOLOGIC: Denies history of anemia or bleeding. PHYSICAL EXAMINATION Blood pressure 191/96 heart rate 92 afebrile and maintaining oxygen saturation on nasal cannula. CONSTITUTIONAL: No apparent distress. HEENT: Head is normocephalic. Pupils are equal, round. Sclerae anicteric. Mucous membranes of the mouth are moist. No JVD. No carotid bruit. CHEST EXAMINATION: Lungs are clear to auscultation. No chest wall tenderness is noted on palpation or with deep breathing. HEART EXAMINATION: Regular rate and rhythm. S1, S2 heard. No murmurs, gallops or rub. ABDOMEN: Soft, nontender. Positive bowel sounds. EXTREMITIES: 2+ peripheral pulses, trace bilateral lower extremity edema and no calf tenderness. NEUROLOGIC EXAMINATION: Patient is awake, alert and oriented x3. ASSESSMENT Shortness of breath with hypoxia documented. Acute on chronic diastolic heart failure, improved after IV diuretics Recent diagnosis of endocarditis currently maintained on outpatient IV antibiotics Hypertension Dyslipidemia Diabetes mellitus Chronic nicotine dependence PLAN Shortness of breath multi-factorial secondary to heart failure and possible pneumonia. We will transiton to oral diuretics today and ask for pulmonary evaluation. Add lopressor 25 mg BID. Request recent MICHELET report from [facility]. Resume IV antibiotics for treatment of endocarditis. Further recommendations to follow based on clinical course. Thank you kindly for this consultation. Nurse Practitioner note has been reviewed, I agree with a documented findings and plan of care. Patient was seen and examined. Past Medical History Past Medical History: Heart Failure, Diabetes Mellitus, Hyperlipidemia Additional Past Medical History / Comment(s): IDDM type II, neuropathy bilateral feet, gout History of Any Multi-Drug Resistant Organisms: MRSA Date of last positivie culture/infection: 03/13/20 MDRO Source:: MRSA BACK Past Surgical History: Cholecystectomy Additional Past Surgical History / Comment(s): I&D scrotal abscess, I&D back ab scess Past Anesthesia/Blood Transfusion Reactions: No Reported Reaction Past Psychological History: Anxiety Smoking Status: Former smoker Past Alcohol Use History: Occasional Past Drug Use History: None Reported - Past Family History Mother Family Medical History: Diabetes Mellitus Father History Unknown: Yes Medications and Allergies Home Medications Medication Instructions Recorded Confirmed Type Omeprazole [PriLOSEC] 40 mg PO AC-BRKFST #14 capsule. 11/04/19 07/25/20 Rx Nitroglycerin Sl Tabs [Nitrostat] 0.4 mg SUBLINGUAL Q5M PRN #30 tab 11/05/19 07/25/20 Rx Semaglutide [Ozempic] 1.5 ml SQ MO 03/11/20 07/25/20 History Gabapentin 800 mg PO TID 03/31/20 07/25/20 History Insulin Glargine,Hum.rec.anlog 56 unit SQ HS 03/31/20 07/25/20 History [Basaglar Kwikpen U-100] DULoxetine HCL [Cymbalta] 60 mg PO DAILY 04/01/20 07/25/20 History Acetaminophen Tab [Tylenol] 650 mg PO Q4H PRN 07/25/20 07/25/20 History Albuterol Sulfate [Proair Hfa] 2 puff INHALATION RT-Q6H PRN 07/25/20 07/25/20 History Daptomycin 800mg 800 mg IV DAILY 07/25/20 07/25/20 History Fluticasone Propion/Salmeterol 1 puff INHALATION RT-BID 07/25/20 07/25/20 History [Wixela 250-50 Inhub] Furosemide [Lasix] 20 mg PO DAILY 07/25/20 07/25/20 History Ibuprofen [Motrin] 800 mg PO Q8H PRN 07/25/20 07/25/20 History Potassium Chloride ER [K-Dur 20] 20 meq PO BID 07/25/20 07/25/20 History amLODIPine [Norvasc] 5 mg PO BID 07/25/20 07/25/20 History hydrALAZINE HCL [Apresoline] 25 mg PO TID 07/25/20 07/25/20 History Allergies Allergy/AdvReac Type Severity Reaction Status Date / Time No Known Allergies Allergy Verified 07/25/20 07:36 Physical Exam Vitals: Vital Signs Temp Pulse Pulse Resp BP BP Pulse Ox 07/25/20 07:59 94 L 07/25/20 07:58 98.1 F 92 16 191/96 88 L 07/25/20 06:51 87 18 177/90 94 L 07/25/20 05:04 98.1 F 95 22 178/91 93 L Intake and Output 07/24/20 07/25/20 07/25/20 22:59 06:59 14:59 Other: Weight 98.883 kg Results 07/25/20 05:24 07/25/20 05:24 Cardiac Enzymes 07/25/20 07/25/20 07/25/20 Range/Units 05:24 05:24 06:38 AST 34 (17-59) U/L Lactate Dehydrogenase 659 H (313-618) U/L Troponin I <0.012 (0.000-0.034) ng/mL Coagulation 07/25/20 Range/Units 05:24 PT 11.5 (9.0-12.0) sec APTT 24.9 (22.0-30.0) sec CBC 07/25/20 Range/Units 05:24 WBC 5.1 (3.8-10.6) k/uL RBC 3.56 L (4.30-5.90) m/uL Hgb 9.9 L (13.0-17.5) gm/dL Hct 30.4 L (39.0-53.0) % Plt Count 284 (150-450) k/uL Comprehensive Metabolic Panel 07/25/20 Range/Units 05:24 Sodium 136 L (137-145) mmol/L Potassium 4.6 (3.5-5.1) mmol/L Chloride 100 (98-107) mmol/L Carbon Dioxide 34 H (22-30) mmol/L BUN 28 H (9-20) mg/dL Creatinine 1.39 H (0.66-1.25) mg/dL Glucose 368 H (74-99) mg/dL Calcium 8.5 (8.4-10.2) mg/dL AST 34 (17-59) U/L ALT 47 (4-49) U/L Alkaline Phosphatase 279 H (38-126) U/L Total Protein 6.6 (6.3-8.2) g/dL Albumin 3.1 L (3.5-5.0) g/dL Current Medications Generic Name Dose Route Start Last Admin Trade Name Freq PRN Reason Stop Dose Admin Amlodipine Besylate 5 mg 07/25/20 09:00 Amlodipine 5 Mg Tab PO BID [facility] Enoxaparin Sodium 40 mg 07/25/20 09:00 Enoxaparin 40 Mg/0.4 Ml Syringe SQ DAILY LUIZA Furosemide 40 mg 07/25/20 06:45 07/25/20 07:00 Furosemide 10 Mg/Ml 4 Ml Vial IV 40 mg Q12HR LUIZA Administration Hydralazine HCl 25 mg 07/25/20 09:00 Hydralazine Hcl 25 Mg Tab PO TID LUIZA Intake and Output 07/24/20 07/25/20 07/25/20 22:59 06:59 14:59 Other: Weight 98.883 kg 07/25/20 05:24 07/25/20 05:24
--- NOTE | 2020-07-25 12:47 | ECHOF ---
Referral Reason:Heart Failure/endocarditis MEASUREMENTS -------- HEIGHT: 170.2 cm WEIGHT: 98.9 kg BP: IVSd: 1.5 cm (0.6 - 1.1) LVIDd: 4.6 cm (3.9 - 5.3) LVPWd: 1.5 cm (0.6 - 1.1) IVSs: 1.5 cm LVIDs: 4.0 cm LVPWs: 1.7 cm LA Diam: 4.5 cm (2.7 - 3.8) LAESV Index (A-L): 35.40 ml/m Ao Diam: 3.1 cm (2.0 - 3.7) AV Cusp: 1.7 cm (1.5 - 2.6) LA Diam: 4.7 cm (2.7 - 3.8) MV EXCURSION: 15.618 mm (> 18.000) MV EF SLOPE: 71 mm/s (70 - 150) EPSS: 1.1 cm MV E Tawanda: 1.00 m/s MV DecT: 108 ms MV A Tawanda: 0.90 m/s MV E/A Ratio: 1.12 AR PHT: 690 ms RAP: 5.00 mmHg RVSP: 49.95 mmHg FINDINGS -------- Sinus rhythm. This was a technically good study. The left ventricular size is normal. There is mild concentric left ventricular hypertrophy. Overa ll left ventricular systolic function is low-normal with, an EF between 50 - 55 %. The right ventricle is normal in size. The left atrium is moderately dilated. LA is moderately dilated 34-39 ml/m2 The right atrial size is normal. There is mild aortic regurgitation. Mild mitral regurgitation is present. Mild tricuspid regurgitation present. There is moderate pulmonary hypertension. Trace/mild (physiologic) pulmonic regurgitation. The aortic root size is normal. There is a small pericardial effusion is located near the right atrium. CONCLUSIONS -------- 1. The left ventricular size is normal. 2. There is mild concentric left ventricular hypertrophy. 3. Overall left ventricular systolic function is low-normal with, an EF between 50 - 55 %. 4. The right ventricle is normal in size. 5. The left atrium is moderately dilated. 6. LA is moderately dilated 34-39 ml/m2 7. The right atrial size is normal. 8. There is mild aortic regurgitation. 9. Mild mitral regurgitation is present. 10. Mild tricuspid regurgitation present. 11. There is moderate pulmonary hypertension. 12. Trace/mild (physiologic) pulmonic regurgitation. 13. The aortic root size is normal. 14. There is a small pericardial effusion is located near the right atrium. CLINICAL EDUCATION SPECIALIST: Freya Allen RDCS
--- NOTE | 2020-07-25 14:30 | P.CNPUL ---
History of Present Illness Consult date: 07/25/20 Reason for consult: dyspnea History of present illness: A 50-year-old male patient coming into the hospital for some increased shortness of breath. This patient is a very calm to get medical history. Most recently, the patient was diagnosed having an endocarditis, secondary to MRSA, the exact involve valve is not known to me at this point although I suspect this was the aortic valve with possibly a cardiac Since. The patient is a PICC line and the patient is currently receiving daptomycin an outpatient basis. Diagnosis was established at [facility]. The patient came into the hospital because of some chest pain and shortness of breath. He is known to have diabetes mellitus type 1 and he has also hypertension and hyperlipidemia and previous history of skin and soft tissue infection with MRSA requiring incision and drainage. He is afebrile. No nausea. No vomiting. No abdominal pain. No pleurisy. No hemoptysis. His white cell count is at 5.1 with a hemoglobin of 9.9. He does have some relative lymphopenia. Correlation profile is within normal limits. Urine is a 28 with a creatinine of 1.39 consistent with an acute kidney injury. Blood sugars remain poorly controlled with a sugar of 228. The alkaline phosphatase is 279, LDH is at 659, on a 0.13 and a coronavirus: 19 testing came back negative. The chest x-ray shows cardiac regular with small bilateral pleural effusion and some atelectatic changes in lung bases. The CAT scan of the chest was ordered. The CAT scan of the chest shows some moderate size by 2 pleural effusion mainly in lung bases and these were present on a previous CAT scan of the abdomen that was done as part of a abdominal pain workup on 05/19/2020. Review of Systems Constitutional: Reports fatigue, Reports weakness, Denies chills, Denies fever Eyes: denies blurred vision, denies pain Ears, nose, mouth and throat: Denies headache, Denies sore throat Cardiovascular: Reports chest pain, admits to some exertional dyspnea. There is also some vague anterior chest wall pain. Respiratory: Reports dyspnea, Denies cough Gastrointestinal: Denies abdominal pain, Denies diarrhea, Denies nausea, Denies vomiting Musculoskeletal: Denies myalgias Integumentary: Reports boils, Reports wounds, Denies pruritus, Denies rash, history of recurrent MRSA boils most of them healed at this point in time. 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, MRSA related borders and soft tissue skin infection History of Any Multi-Drug Resistant Organisms: MRSA Date of last positivie culture/infection: 03/13/20 MDRO Source:: MRSA BACK Past Surgical History: Cholecystectomy Additional Past Surgical History / Comment(s): I&D scrotal abscess, I&D back ab scess Past Anesthesia/Blood Transfusion Reactions: No Reported Reaction Past Psychological History: Anxiety Smoking Status: Former smoker Past Alcohol Use History: Occasional Past Drug Use History: None Reported - Past Family History Mother Family Medical History: Diabetes Mellitus Father History Unknown: Yes Medications and Allergies Home Medications Medication Instructions Recorded Confirmed Type Omeprazole [PriLOSEC] 40 mg PO AC-LORIKFSKacey #14 capsule. 11/04/19 07/25/20 Rx Nitroglycerin Sl Tabs [Nitrostat] 0.4 mg SUBLINGUAL Q5M PRN #30 tab 11/05/19 07/25/20 Rx Semaglutide [Ozempic] 1.5 ml SQ MO 03/11/20 07/25/20 History Gabapentin 800 mg PO TID 03/31/20 07/25/20 History Insulin Glargine,Hum.rec.anlog 56 unit SQ HS 03/31/20 07/25/20 History [Wilagljonny Lazar U-100] DULoxetine HCL [Cymbalta] 60 mg PO DAILY 04/01/20 07/25/20 History Acetaminophen Tab [Tylenol] 650 mg PO Q4H PRN 07/25/20 07/25/20 History Albuterol Sulfate [Proair Hfa] 2 puff INHALATION RT-Q6H PRN 07/25/20 07/25/20 History Daptomycin 800mg 800 mg IV DAILY 07/25/20 07/25/20 History Fluticasone Propion/Salmeterol 1 puff INHALATION RT-BID 07/25/20 07/25/20 History [Wixela 250-50 Inhub] Furosemide [Lasix] 20 mg PO DAILY 07/25/20 07/25/20 History Ibuprofen [Motrin] 800 mg PO Q8H PRN 07/25/20 07/25/20 History Potassium Chloride ER [K-Dur 20] 20 meq PO BID 07/25/20 07/25/20 History amLODIPine [Norvasc] 5 mg PO BID 07/25/20 07/25/20 History hydrALAZINE HCL [Apresoline] 25 mg PO TID 07/25/20 07/25/20 History Allergies Allergy/AdvReac Type Severity Reaction Status Date / Time No Known Allergies Allergy Verified 07/25/20 07:36 Physical Exam Vitals: Vital Signs Temp Pulse Pulse Resp BP BP Pulse Ox 07/25/20 13:21 94 L 07/25/20 07:59 94 L 07/25/20 07:58 98.1 F 92 16 191/96 88 L 07/25/20 06:51 87 18 177/90 94 L 07/25/20 05:04 98.1 F 95 22 178/91 93 L Intake and Output 07/24/20 07/25/20 07/25/20 22:59 06:59 14:59 Other: Voiding Method Toilet Weight 98.883 kg 98.883 kg GENERAL EXAM: Alert, pleasant, 50-year-old white male, on room air, the pulse ox 94%, no significant shortness of breath at this point in time. Patient is currently on 4 L of oxygen by nasal cannula. HEAD: Normocephalic/atraumatic. EYES: Normal reaction of pupils, equal size. Conjunctiva pink, sclera white. NOSE: Clear with pink turbinates. THROAT: No erythema or exudates. NECK: No masses, no JVD, no thyroid enlargement, no adenopathy. CHEST: No chest wall deformity. Symmetrical expansion. LUNGS: Equal air entry with no crackles, wheeze, rhonchi or dullness. Breath sounds are diminished in lung bases bilaterally along with some dullness to percussion CVS: Regular rate and rhythm, normal S1 and S2, no gallops, no murmurs, no rubs, there is a stage II systolic ejection murmur over the apex. ABDOMEN: Soft, nontender. No hepatosplenomegaly, normal bowel sounds, no guarding or rigidity. EXTREMITIES: No clubbing, no edema, no cyanosis, 2+ pulses and upper and lower extremities. MUSCULOSKELETAL: Muscle strength and tone normal. SPINE: No scoliosis or deformity SKIN: left flank cellulitis, 2 surg wounds, covered with dressings CENTRAL NERVOUS SYSTEM: Alert and oriented -3. No focal deficits, tone is normal in all 4 extremities. PSYCHIATRIC: Alert and oriented -3. Appropriate affect. Intact judgment and insight. Results - Laboratory Findings CBC and BMP: 07/25/20 05:24 07/25/20 05:24 PT/INR, D-dimer PT 11.5 sec (9.0-12.0) 07/25/20 05:24 INR 1.1 (<1.2) 07/25/20 05:24 Abnormal lab findings: Abnormal Labs 07/25/20 07/25/20 07/25/20 05:24 05:24 06:38 RBC 3.56 L Hgb 9.9 L Hct 30.4 L Lymphocytes # 0.7 L Sodium 136 L Carbon Dioxide 34 H BUN 28 H Creatinine 1.39 H Glucose 368 H POC Glucose (mg/dL) Alkaline Phosphatase 279 H Lactate Dehydrogenase 659 H Creatine Kinase 184 H Albumin 3.1 L Procalcitonin 07/25/20 07/25/20 07/25/20 06:38 10:18 12:08 RBC Hgb Hct Lymphocytes # Sodium Carbon Dioxide BUN Creatinine Glucose POC Glucose (mg/dL) 385 H 228 H Alkaline Phosphatase Lactate Dehydrogenase Creatine Kinase Albumin Procalcitonin 0.13 H - Diagnostic Findings Chest x-ray: image reviewed CT scan - chest: image reviewed Assessment and Plan Plan: 1 bilateral pleural effusion, chronic, moderate right along with some compressive atelectasis. Consent underlying CHF. 2 infective endocarditis of the aortic valve along with a cardiac Status and the patient is currently on IV daptomycin via PICC line 3 chest pain, nonspecific 4 history of recurrent MRSA soft tissue infections including a left flank cellulitis/abscesses requiring incision and drainage along with multiple skin boils 5 acute kidney injury 6 diabetes mellitus type 2 with poorly controlled blood sugar 7 diabetic retinopathy 8 diabetic peripheral neuropathy 9 hypertension 10 hyperlipidemia plan No indication for pneumonia the patient has bilateral pleural effusion and this is most likely CHF and these are chronic pleural effusions as seen on previous CAT scan of the abdomen that was done 2 months ago. Nevertheless, diagnostic thoracentesis may be further helpful to characterized the exact nature of this pleural fluid. Continue daptomycin regarding infective endocarditis Monitor renal function Offered this patient Lasix 40 mg IV push every 24 hours Residual medications Blood sugar control with B insulin 50 mL at bedtime along with ascites coverage Cardiology consultation We'll continue to follow Time with Patient: Greater than 30
[2020-07-25 14:36] VITALS: BMI 34.1
[2020-07-25] MEDS: FUROSEMIDE 10 MG/ML 4 ML VIAL IV SCH ×2 (15:43→21:28)
[2020-07-25 16:30] LABS: Glucose,Whole Blood 106 mg/dL (75-99)
--- NOTE | 2020-07-25 18:46 | P.HPIM ---
History of Present Illness H&P Date: 07/25/20 Chief Complaint: Short of breath istory of present complaint: This is a very pleasant 50-year-old patient was chronic stable medical conditions include diabetes mellitus type 2, peripheral neuropathy, hyperlipidemia and a prior history of MRSA abscess and cellulitis.. Patient woke up from sleeping shortness of breath. Dry cough. No fever. Decreased appetite. No phlegm. Patient has chronic edema. No obvious chills. Patient last month was diagnosed at [facility] with endocarditis and was transferred to [facility] for a possible abscess. Possibly located aortic valve. Has a PICC line in place with IV antibiotics/daptomycin. Echocardiogram in May of this year showed EF of 55-60%. His edema is rather chronic. Review of systems: GEN.: Tired EYES: None HEENT: None NECK: None RESPIRATORY: As above CARDIOVASCULAR: Edema GASTROINTESTINAL: As above GENITOURINARY: None MUSCULOSKELETAL: As above LYMPHATICS: None HEMATOLOGICAL: None PSYCHIATRY: None NEUROLOGICAL: No focal Past medical history to include: Diabetes, hyperlipidemia, peripheral neuropathy, MRSA infection including abscess and cellulitis,, anxiety, possible aortic valve endocarditis last month for which patient is on IV daptomycin Social history: Patient lives with his 2 children. Does [employer]. Smoking 2 packs a day for 32 years-now down to 2-3 cigarettes a day.. Alcohol occasionally. Physical examination: VITAL SIGNS: 98.1, 95, 22, 178.91, 93% on room air GENERAL: BMI 34.1, sitting up in a chair, a bit anxious EYES: Pupils equal. Conjunctiva normal. HEENT: External appearance of nose and ears normal, oral cavity grossly normal. NECK: JVD not raised; masses not palpable. HEART: First and second heart sounds are normal; edema present LUNGS: Respiratory rate increased, decreased breath sounds. ABDOMEN: Soft, nontender, liver spleen not palpable, no masses palpable. PSYCH: Alert and oriented x3; mood and affect normal. NEUROLOGICAL: Cranial nerves grossly intact; no facial asymmetry, power and sensation grossly intact. LYMPHATICS: No lymph nodes palpable in the axilla and neck INVESTIGATIONS, reviewed in the clinical context: White count 5.1 hemoglobin 9.9 platelets 24 potassium 4.6 bun 28 creatinine 1.39 blood glucose 368. ABG 1.8. Troponin I 2 negative proBNP 3620 CRP 6.3 Pro-calcitonin 0.13 Coronavirus-not detected EKG tracing personally reviewed by me-normal sinus rhythm Chest x-ray film personally reviewed by me-cardiomegaly, pulmonary edema 2-D echocardiogram-EF 55-55%, moderate pulmonary hypertension Assessment: -Acute congestive heart failure exacerbation from diastolic dysfunction EF 50- 55% -Secondary pulmonary hypertension due to CHF -Recent aortic valve endocarditis for which patient is an IV daptomycin, -Diabetes mellitus type 2 chronically on insulin uncontrolled with hyperglycemia -Diabetic peripheral neuropathy -Hyperlipidemia -COPD in a current smoker -Chronic kidney disease stage III likely combination of diabetic nephropathy and hypertensive medicine sclerosis Plan: Continue IV daptomycin. Started on IV Lasix. Home medications resumed. Consultation to , ID cardiology and pulmonary. Discussed with the patient. Lovenox for DVT prophylaxis. Patient will be made inpatient expected to have more than 2 nights stay Past Medical History Past Medical History: Heart Failure, Diabetes Mellitus, Hyperlipidemia Additional Past Medical History / Comment(s): IDDM type II, neuropathy bilateral feet, gout History of Any Multi-Drug Resistant Organisms: MRSA Date of last positivie culture/infection: 03/13/20 MDRO Source:: MRSA BACK Past Surgical History: Cholecystectomy Additional Past Surgical History / Comment(s): I&D scrotal abscess, I&D back abscess Past Anesthesia/Blood Transfusion Reactions: No Reported Reaction Past Psychological History: Anxiety Additional Psychological History / Comment(s): Pt resides with his aunt and uncle. He is independent. He works in [employer]. Smoking Status: Former smoker Past Alcohol Use History: Occasional Additional Past Alcohol Use History / Comment(s): Pt started smoking in 1987 and quit 2 weeks ago. Past Drug Use History: None Reported - Past Family History Mother Family Medical History: Diabetes Mellitus Father History Unknown: Yes Medications and Allergies Home Medications Medication Instructions Recorded Confirmed Type Omeprazole [PriLOSEC] 40 mg PO LUPILLO-BRKFST #14 capsule. 11/04/19 07/25/20 Rx Nitroglycerin Sl Tabs [Nitrostat] 0.4 mg SUBLINGUAL Q5M PRN #30 tab 11/05/19 07/25/20 Rx Semaglutide [Ozempic] 1.5 ml SQ MO 03/11/20 07/25/20 History Gabapentin 800 mg PO TID 03/31/20 07/25/20 History Insulin Glargine,Hum.rec.anlog 56 unit SQ HS 03/31/20 07/25/20 History [Basaglar Kwikpen U-100] DULoxetine HCL [Cymbalta] 60 mg PO DAILY 04/01/20 07/25/20 History Acetaminophen Tab [Tylenol] 650 mg PO Q4H PRN 07/25/20 07/25/20 History Albuterol Sulfate [Proair Hfa] 2 puff INHALATION RT-Q6H PRN 07/25/20 07/25/20 History Daptomycin 800mg 800 mg IV DAILY 07/25/20 07/25/20 History Fluticasone Propion/Salmeterol 1 puff INHALATION RT-BID 07/25/20 07/25/20 History [Wixela 250-50 Inhub] Furosemide [Lasix] 20 mg PO DAILY 07/25/20 07/25/20 History Ibuprofen [Motrin] 800 mg PO Q8H PRN 07/25/20 07/25/20 History Potassium Chloride ER [K-Dur 20] 20 meq PO BID 07/25/20 07/25/20 History amLODIPine [Norvasc] 5 mg PO BID 07/25/20 07/25/20 History hydrALAZINE HCL [Apresoline] 25 mg PO TID 07/25/20 07/25/20 History Allergies Allergy/AdvReac Type Severity Reaction Status Date / Time No Known Allergies Allergy Verified 07/25/20 07:36 Physical Exam Vitals: Vital Signs Temp Pulse Pulse Resp BP BP Pulse Ox 07/25/20 07:59 94 L 07/25/20 07:58 98.1 F 92 16 191/96 88 L 07/25/20 06:51 87 18 177/90 94 L 07/25/20 05:04 98.1 F 95 22 178/91 93 L Intake and Output 07/24/20 07/25/20 07/25/20 22:59 06:59 14:59 Other: Weight 98.883 kg 98.883 kg Results CBC & Chem 7: 07/25/20 05:24 07/25/20 05:24 Labs: Abnormal Lab Results - Last 24 Hours (Table) 07/25/20 07/25/20 07/25/20 Range/Units 05:24 05:24 06:38 RBC 3.56 L (4.30-5.90) m/uL Hgb 9.9 L (13.0-17.5) gm/dL Hct 30.4 L (39.0-53.0) % Lymphocytes # 0.7 L (1.0-4.8) k/uL Sodium 136 L (137-145) mmol/L Carbon Dioxide 34 H (22-30) mmol/L BUN 28 H (9-20) mg/dL Creatinine 1.39 H (0.66-1.25) mg/dL Glucose 368 H (74-99) mg/dL POC Glucose (mg/dL) (75-99) mg/dL Alkaline Phosphatase 279 H (38-126) U/L Lactate Dehydrogenase 659 H (313-618) U/L Creatine Kinase 184 H (55-170) U/L Albumin 3.1 L (3.5-5.0) g/dL 07/25/ Range/Units 10:18 RBC (4.30-5.90) m/uL Hgb (13.0-17.5) gm/dL Hct (39.0-53.0) % Lymphocytes # (1.0-4.8) k/uL Sodium (137-145) mmol/L Carbon Dioxide (22-30) mmol/L BUN (9-20) mg/dL Creatinine (0.66-1.25) mg/dL Glucose (74-99) mg/dL POC Glucose (mg/dL) 385 H (75-99) mg/dL Alkaline Phosphatase (38-126) U/L Lactate Dehydrogenase (313-618) U/L Creatine Kinase (55-170) U/L Albumin (3.5-5.0) g/dL Thrombosis Risk Factor Assmnt - Choose All That Apply Any of the Below Risk Factors Present?: Yes Each Factor Represents 1 point: Age 41-60 years Other Risk Factors: No Thrombosis Risk Factor Assessment Total Risk Factor Score: 1 Thrombosis Risk Factor Assessment Level: Low Risk
[2020-07-25] MEDS: SYMBICORT 80-4.5 MCG INHALER INHALATION SCH (20:42)
[2020-07-25 21:09] LABS: Glucose,Whole Blood 395 mg/dL (75-99)
[2020-07-25] MEDS: INSULIN DETEMIR (LEVEMIR) 100 UNIT/ML SYR SQ SCH (21:30)
[2020-07-25] MEDS: ACETAMINOPHEN TAB 325 MG TAB PO PRN (21:41)
[2020-07-26] MEDS: PANTOPRAZOLE 40 MG TABLET PO SCH (06:50)
[2020-07-26 06:58] LABS: Glucose,Whole Blood 395 mg/dL (75-99)
[2020-07-26] MEDS: INSULIN ASPART (NovoLOG) 100 UNIT/ML VIAL SQ SCH ×4 (07:01→22:11)
[2020-07-26 08:10] LABS: Calcium 8.4 mg/dL (8.4-10.2); Potassium 4.2 mmol/L (3.5-5.1)
[2020-07-26] MEDS: SYMBICORT 80-4.5 MCG INHALER INHALATION SCH ×2 (08:10→19:37)
[2020-07-26] MEDS: ENOXAPARIN 40 MG/0.4 ML SYRINGE SQ SCH (08:44)
[2020-07-26] MEDS: GABAPENTIN 400 MG CAP PO SCH ×3 (08:44→22:10)
[2020-07-26] MEDS: POTASSIUM CHLORIDE ER 20 MEQ TAB.ER PO SCH ×2 (08:45→22:10)
[2020-07-26] MEDS: METOPROLOL TARTRATE 25 MG TAB PO SCH ×2 (08:45→22:10)
[2020-07-26] MEDS: hydrALAZINE HCL 25 MG TAB PO SCH ×3 (08:45→22:11)
[2020-07-26] MEDS: FUROSEMIDE 10 MG/ML 4 ML VIAL IV SCH (08:45)
[2020-07-26] MEDS: DULoxetine HCL 60 MG CAPSULE.DR PO SCH (08:45)
[2020-07-26] MEDS: amLODIPine 5 MG TAB PO SCH ×2 (08:45→22:10)
[2020-07-26] MEDS ORDERED: FUROSEMIDE 20 MG TAB PO SCH (09:00)
[2020-07-26] MEDS ORDERED: DAPTOMYCIN IV SCH (09:00)
[2020-07-26 09:24] LABS: Glucose,Whole Blood 106 mg/dL (75-99)
[2020-07-26 11:45] LABS: Glucose,Whole Blood 113 mg/dL (75-99)
--- NOTE | 2020-07-26 13:22 | P.PN ---
Subjective Progress Note Date: 07/26/20 Principal diagnosis: Acute on Chronic CHF PROGRESS NOTE 07/26/2020 Patient looks to be much improved this a.m. Patient sitting up at bedside with no current complaints of chest pain, chest pressure, shortness of breath or palpitations. ID being consulted. Continue with IV daptomycin for endo- carditis. Pt continues sinus rhythm. Vital signs stable. 98% on room air. Afebrile. CT of chest shows bilateral moderate pleural effusions. Patient weight down 10 kg with IV lasix. Pulmonary discussing thoracentesis. Patient is a very poor historian and probably noncompliant. Patient has hard time remembering who his physicians are for his treatments. HISTORY OF PRESENTING ILLNESS This is a pleasant 50-year-old male past medical history significant for type 1 diabetes mellitus, hypertension, dyslipidemia and chronic nicotine dependence. He was diagnosed last month at [facility] with endocarditis and was transferred to [facility] for possible abscess. The patient believes this was located on the aortic valve. Exact details are unavailable. We have been asked to see in consultation for heart failure. He states for the previous 2-3 days he has noticed an increase in shortness of breath. He also has lower extremity edema and feels full in his abdomen. He states it feels something is pushing up from his stomach into his chest. He has some intermittent discomfort in the chest when he takes a deep breath but not with exertion. He states he's been compliant with his IV antibiotics and is still has a PICC line in place. Most recent echocardiogram obtained here May 2020 reveals preserved LV systolic function with ejection fraction 55- 60% with grade 1 diastolic dysfunction. PHYSICAL EXAMINATION: HEENT: Head is atraumatic, normocephalic. Pupils are equal, round. Sclerae anicteric. Conjunctivae are clear. Mucous membranes of the mouth are moist. Neck is supple. There is no jugular venous distention. No carotid bruit is heard. No thyromegaly. LUNGS: Clear to auscultation no wheezes, rales or rhonchi. No chest wall tenderness is noted on palpation or with deep breathing. HEART: Regular rate and rhythm without murmurs, rubs or gallops. S1 and S2 heard. ABDOMEN: Abdominal exam revealed normal bowel sounds. The abdomen was soft, non- tender, and without masses, organomegaly, or appreciable enlargement of the abdominal aorta. EXTREMITIES: Examination of the extremities revealed easily palpable radial, femoral and pedal pulses. There was no cyanosis, clubbing. 3+ edema to bilateral lower extremties. No calf tenderness noted. VASCULAR: Radial and dorsalis pedis pulses palpated, no evidence of clubbing. NEUROLOGIC: Patient is awake, alert and oriented x3. There were no obvious focal neurologic abnormalities. INTEGUMENTARY: Multiple skin sores, multiple bruising and below the waist edema present. FINAL IMPRESSION: 1. Endocarditis, treatment with IV daptomycin 2. Acute on chronic Systolic Heart Failure, improved 3. Bilateral Pleural effusions 4. Hypertension 5. Diabeted mellitus PLAN: ID consulted for therapy input. Continue with Daptomycin IV. START Lasix 20 mg by oral route once daily. Continue same all other medical/medication regimes. Advised medication compliance. Advised smoking cessation. Objective - Vital Signs Vital signs: Vital Signs Temp 97.8 F 07/26/20 08:36 Pulse 82 07/26/20 08:36 Resp 14 07/26/20 10:11 BP 114/59 07/26/20 08:36 Pulse Ox 94 L 07/26/20 08:36 Intake & Output 07/25/20 07/26/20 07/26/20 18:59 06:59 18:59 Weight 98.883 kg 87.5 kg Other: Voiding Method Toilet Toilet - Labs CBC & Chem 7: 07/25/20 05:24 07/26/20 07:42 Labs: Abnormal Lab Results - Last 24 Hours (Table) 07/25/20 07/25/20 07/25/20 Range/Units 06:38 12:08 16:26 Carbon Dioxide (22-30) mmol/L BUN (9-20) mg/dL Creatinine (0.66-1.25) mg/dL POC Glucose (mg/dL) 228 H 106 H (75-99) mg/dL Procalcitonin 0.13 H (0.02-0.09) ng/mL 07/25/20 07/26/20 07/26/20 Range/Units 21:03 06:51 07:42 Carbon Dioxide 36 H (22-30) mmol/L BUN 36 H (9-20) mg/dL Creatinine 2.08 H (0.66-1.25) mg/dL POC Glucose (mg/dL) 395 H 395 H (75-99) mg/dL Procalcitonin (0.02-0.09) ng/mL 07/26/20 Range/Units 09:23 Carbon Dioxide (22-30) mmol/L BUN (9-20) mg/dL Creatinine (0.66-1.25) mg/dL POC Glucose (mg/dL) 106 H (75-99) mg/dL Procalcitonin (0.02-0.09) ng/mL Microbiology - Last 24 Hours (Table) 07/25/20 06:46 Blood Culture - Preliminary Blood No Growth after 24 hours
--- NOTE | 2020-07-26 13:59 | P.PN ---
Subjective Progress Note Date: 07/26/20 A 50-year-old male patient coming into the hospital for some increased shortness of breath. This patient is a very calm to get medical history. Most recently, the patient was diagnosed having an endocarditis, secondary to MRSA, the exact involve valve is not known to me at this point although I suspect this was the aortic valve with possibly a cardiac Since. The patient is a PICC line and the patient is currently receiving daptomycin an outpatient basis. Diagnosis was established at [facility]. The patient came into the hospital because of some chest pain and shortness of breath. He is known to have diabetes mellitus type 1 and he has also hypertension and hyperlipidemia and previous history of skin and soft tissue infection with MRSA requiring incision and drainage. He is afebrile. No nausea. No vomiting. No abdominal pain. No pleurisy. No hemoptysis. His white cell count is at 5.1 with a hemoglobin of 9.9. He does have some relative lymphopenia. Correlation profile is within normal limits. Urine is a 28 with a creatinine of 1.39 consistent with an acute kidney injury. Blood sugars remain poorly controlled with a sugar of 228. The alkaline phosphatase is 279, LDH is at 659, on a 0.13 and a coronavirus: 19 testing came back negative. The chest x-ray shows cardiac regular with small bilateral pleural effusion and some atelectatic changes in lung bases. The CAT scan of the chest was ordered. The CAT scan of the chest shows some moderate size by 2 pleural effusion mainly in lung bases and these were present on a previous CAT scan of the abdomen that was done as part of a abdominal pain workup on 05/19/2020. 07/26/2020, the patient is feeling well. No specific complaints. He is on room air oxygen. As mentioned earlier, he has bilateral pleural effusions which are essentially chronic and he would need a thoracentesis later stage. A consent wa s given. He is not producing much of urine output while being on IV Lasix. Creatinine is up to 2.08 with a mean of 38 and I and up stopping the Lasix for now. He is repeat echocardiogram was noted. There is no evidence of any valvular vegetation. His ejection fraction is normal to 50-55%. There is moderate degree of pulmonary hypertension. There is small pericardial effusion. The bowels are essentially functioning well and there is no evidence of any vegetation the patient remains on daptomycin regarding his infective endocarditis with a cardiac. The repeat blood cultures are negative thus far. Objective - Vital Signs Vital signs: Vital Signs Temp 97.8 F 07/26/20 08:36 Pulse 82 07/26/20 08:36 Resp 14 07/26/20 10:11 BP 114/59 07/26/20 08:36 Pulse Ox 94 L 07/26/20 08:36 Intake & Output 07/25/20 07/26/20 07/26/20 18:59 06:59 18:59 Weight 98.883 kg 87.5 kg Other: Voiding Method Toilet Toilet - Exam GENERAL EXAM: Alert, pleasant, 50-year-old white male, on room air, the pulse ox 94%, no significant shortness of breath at this point in time. Patient is currently on room air oxygen with a pulse ox of 94% HEAD: Normocephalic/atraumatic. EYES: Normal reaction of pupils, equal size. Conjunctiva pink, sclera white. NOSE: Clear with pink turbinates. THROAT: No erythema or exudates. NECK: No masses, no JVD, no thyroid enlargement, no adenopathy. CHEST: No chest wall deformity. Symmetrical expansion. LUNGS: Equal air entry with no crackles, wheeze, rhonchi or dullness. Breath sounds are diminished in lung bases bilaterally along with some dullness to percussion CVS: Regular rate and rhythm, normal S1 and S2, no gallops, no murmurs, no rubs, there is a stage II systolic ejection murmur over the apex. ABDOMEN: Soft, nontender. No hepatosplenomegaly, normal bowel sounds, no guarding or rigidity. EXTREMITIES: No clubbing, no edema, no cyanosis, 2+ pulses and upper and lower extremities. MUSCULOSKELETAL: Muscle strength and tone normal. SPINE: No scoliosis or deformity SKIN: left flank cellulitis, 2 surg wounds, covered with dressings CENTRAL NERVOUS SYSTEM: Alert and oriented -3. No focal deficits, tone is normal in all 4 extremities. PSYCHIATRIC: Alert and oriented -3. Appropriate affect. Intact judgment and i nsight. - Labs CBC & Chem 7: 07/25/20 05:24 07/26/20 07:42 Labs: Abnormal Lab Results - Last 24 Hours (Table) 07/25/20 07/25/20 07/26/20 Range/Units 16:26 21:03 06:51 Carbon Dioxide (22-30) mmol/L BUN (9-20) mg/dL Creatinine (0.66-1.25) mg/dL POC Glucose (mg/dL) 106 H 395 H 395 H (75-99) mg/dL 07/26/20 07/26/20 07/26/20 Range/Units 07:42 09:23 11:43 Carbon Dioxide 36 H (22-30) mmol/L BUN 36 H (9-20) mg/dL Creatinine 2.08 H (0.66-1.25) mg/dL POC Glucose (mg/dL) 106 H 113 H (75-99) mg/dL Microbiology - Last 24 Hours (Table) 07/25/20 06:46 Blood Culture - Preliminary Blood No Growth after 24 hours Assessment and Plan Plan: 1 bilateral pleural effusion, chronic, moderate right along with some compressive atelectasis. Consent underlying CHF. I reviewed the CAT scan of the chest. The CAT scan of the chest shows bilateral pleural effusion and pleural effusions were present on a previous CAT scan of the abdomen that was done back in May. As such, these are chronic pleural effusions. 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 plan No indication for pneumonia the patient has bilateral pleural effusion and this is most likely CHF and these are chronic pleural effusions as seen on previous CAT scan of the abdomen that was done 2 months ago. Nevertheless, diagnostic thoracentesis may be further helpful to characterized the exact nature of this pleural fluid. A consent was obtained. I'm going to do the procedure the later stage and this will be for diagnostic and therapeutic purposes. Continue daptomycin regarding infective endocarditis, repeat echo cardiac exam shows no evidence of any valvular vegetation Monitor renal function Hold Lasix for now Cardiology consultation We'll continue to follow
--- NOTE | 2020-07-26 16:07 | PN ---
PROGRESS NOTE This gentleman has history of endocarditis and this was a diagnosis made while he was here in [facility] and then transferred to [facility] for another opinion. This hospitalization is more for shortness of breath with bilateral pleural effusion and possible pneumonia as well. He is Covid negative. We are awaiting further input from Dr. Milligan from Infectious Disease standpoint, but in the meantime, we will continue his current antibiotics and so far the blood culture has been negative that was drawn yesterday. He has lost weight, is more comfortable, breathing easier, has no chest discomfort. Lungs also reveal improved air entry. S1-S2 heard normally. Short systolic murmur noted. We will continue antibiotics for now. Await further input from Infectious Disease and in regards to his pleural effusion, thoracentesis is being considered. MMODL / IJN: [id number] /
[2020-07-26 16:35] LABS: Glucose,Whole Blood 266 mg/dL (75-99)
--- NOTE | 2020-07-26 17:30 | P.PN ---
Progress Note - Text Progress Note Date: 07/26/20 Chief Complaint: Short of breath istory of present complaint: This is a very pleasant 50-year-old patient was chronic stable medical conditions include diabetes mellitus type 2, peripheral neuropathy, hyperlipidemia and a prior history of MRSA abscess and cellulitis.. Patient woke up from sleeping shortness of breath. Dry cough. No fever. Decreased appetite. No phlegm. Patient has chronic edema. No obvious chills. Patient last month was diagnosed at [facility] with endocarditis and was transferred to [facility] for a possible abscess. Possibly located aortic valve. Has a PICC line in place with IV antibiotics/daptomycin. Echocardiogram in May of this year showed EF of 55-60%. His edema is rather chronic. Admitted with acute CHF exacerbation EF 50-55%. Put on IV Lasix. 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 Computed tomography scan of the chest shows bilateral pleural effusions. Reviewed by Dr. Faulkner. [place] to be chronic. Today-breathing a bit better. Oral intake fair. No fever no chills. Getting antibiotics. Review of systems: Was done for constitutional, cardiovascular, GI, pulmonary. relevant finding as above Active Medications Acetaminophen (Acetaminophen Tab 325 Mg Tab) 650 mg PO Q4H PRN PRN Reason: Mild Pain or Fever > 100.5 Last Admin: 07/25/20 21:41 Dose: 650 mg Documented by: Albuterol Sulfate (Albuterol Nebulized 2.5 Mg/3 Ml) 2.5 mg INHALATION RT-Q6H PRN PRN Reason: Shortness Of Breath Amlodipine Besylate (Amlodipine 5 Mg Tab) 5 mg PO BID [facility] Last Admin: 07/26/20 08:45 Dose: 5 mg Documented by: Budesonide/Formoterol Fumarate (Symbicort 80-4.5 Mcg Inhaler) 2 puff INHALATION RT-BID [facility] Last Admin: 07/26/20 08:10 Dose: 2 puff Documented by: Duloxetine HCl (Duloxetine Hcl 60 Mg Capsule.) 60 mg PO DAILY [facility] Last Admin: 07/26/20 08:45 Dose: 60 mg Documented by: Enoxaparin Sodium (Enoxaparin 40 Mg/0.4 Ml Syringe) 40 mg SQ DAILY [facility] Last Admin: 07/26/20 08:44 Dose: 40 mg Documented by: Furosemide (Furosemide 20 Mg Tab) 20 mg PO DAILY [facility] Gabapentin (Gabapentin 400 Mg Cap) 800 mg PO TID [facility] Last Admin: 07/26/20 16:33 Dose: 800 mg Documented by: Hydralazine HCl (Hydralazine Hcl 25 Mg Tab) 25 mg PO TID [facility] Last Admin: 07/26/20 16:33 Dose: 25 mg Documented by: Daptomycin 800 mg/ Sodium (Chloride) 50 mls @ 100 mls/hr IVPB DAILY [facility] Last Admin: 07/26/20 08:45 Dose: 100 mls/hr Documented by: Ibuprofen (Ibuprofen 800 Mg Tab) 800 mg PO Q8H PRN PRN Reason: Pain Insulin Aspart (Insulin Aspart (Novolog) 100 Unit/Ml Vial) 0 unit SQ ACHS [facility]; Protocol Last Admin: 07/26/20 16:37 Dose: 4 unit Documented by: Insulin Detemir (Insulin Detemir (Levemir) 100 Unit/Ml Syr) 56 unit SQ HS [facility] Last Admin: 07/25/20 21:30 Dose: 56 unit Documented by: Metoprolol Tartrate (Metoprolol Tartrate 25 Mg Tab) 25 mg PO BID [facility] Last Admin: 07/26/20 08:45 Dose: 25 mg Documented by: Nitroglycerin (Nitroglycerin Sl Tabs 0.4 Mg Tab) 0.4 mg SUBLINGUAL Q5M PRN PRN Reason: Chest Pain Pantoprazole Sodium (Pantoprazole 40 Mg Tablet) 40 mg PO AC-BRKFST [facility] Last Admin: 07/26/20 06:50 Dose: 40 mg Documented by: Potassium Chloride (Potassium Chloride Er 20 Meq Tab.Er) 20 meq PO BID [facility] Last Admin: 07/26/20 08:45 Dose: 20 meq Documented by: Physical examination: VITAL SIGNS: Afebrile, 82, 14, 114/59, 94% room air GENERAL: BMI 34.1, sitting up, not in distress EYES: Pupils equal. Conjunctiva normal. NECK: JVD not raised; masses not palpable. HEART: First and second heart sounds are normal; edema present LUNGS: Respiratory rate increased, decreased breath sounds. ABDOMEN: Soft, nontender, liver spleen not palpable, no masses palpable. PSYCH: Alert and oriented x3; mood and affect normal. INVESTIGATIONS, reviewed in the clinical context: Bun 36 creatinine 2.08 Previous testing White count 5.1 hemoglobin 9.9 platelets 24 potassium 4.6 bun 28 creatinine 1.39 blood glucose 368. ABG 1.8. Troponin I 2 negative proBNP 3620 CRP 6.3 Pro-calcitonin 0.13 Coronavirus-not detected EKG tracing personally reviewed by me-normal sinus rhythm Chest x-ray film personally reviewed by me-cardiomegaly, pulmonary edema 2-D echocardiogram-EF 55-55%, moderate pulmonary hypertension Assessment: -Acute congestive heart failure exacerbation from diastolic dysfunction EF 50-55%-clinically improved -Bilateral pleural effusion felt to be chronic. 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 Faulkner. Patient has current acute kidney injury. Will DC Motrin. Cut back the dose of Neurontin. Repeat labs in the morning.
[2020-07-26 22:11] LABS: Glucose,Whole Blood 322 mg/dL (75-99)
[2020-07-26] MEDS: INSULIN DETEMIR (LEVEMIR) 100 UNIT/ML SYR SQ SCH (22:11)
--- NOTE | 2020-07-26 22:24 | P.CONS ---
History of Present Illness - Reason for Consult Consult date: 07/26/20 Endocarditis Requesting physician: Armando Pablo - Chief Complaint Shortness of breath and chest pain 2 days - History of Present Illness Patient is a 50-year male was recently admitted to [facility] in this patient who did have evidence of MRSA bacteremia work-up did show some possibility of aortic wall endocarditis or possible abscess subsequently the patient was transferred to [facility] for a CT surgery evaluation patient was evaluated by us CT surgery MICHELET was reviewed and they were of the pain and there was no evidence of any endocarditis or abscess they thought his bacteremia was more likely to his skin and soft tissue as he did have multiple wounds on his lower extremity patient did get a PICC line and he was advised a 4-week course of IV daptomycin with the patient is currently receiving since July 04, 2020 patient presenting to [facility] yesterday with concern for increasing shortness of breath and chest pain that apparently started the day of presentation to the hospital patient chest pain has been mostly center of the chest and described more of a sharp in nature patient also have significant weight gain and lower extremity swelling on arrival to the ER patient was afebrile patient was maintaining his sats on room air patient did have a normal white count with lymphopenia he did have a LDH of 659 CRP of 6.3 colchicine 0.13 walsh PCR was negative patient did have a chest x-ray which shows cardiomegaly and small bilateral pleural effusion. Airspace disease in the mid to lower lung zones bilaterally of uncertain significance patient did have an echocardiogram which did not show any evidence of vegetation patient also have a CT of the chest with moderate bilateral pleural effusion and compressive atelectasis scheduled on also proceed with an upper lobe segmental flight acute abdominal process patient is currently being treated with daptomycin and officially was consulted with concern for endocarditis and further antibiotic management Review of Systems Positive point has been mentioned in the HPI rest of the systems are negative Past Medical History Past Medical History: Heart Failure, Diabetes Mellitus, Hyperlipidemia Additional Past Medical History / Comment(s): IDDM type II, neuropathy bilateral feet, gout History of Any Multi-Drug Resistant Organisms: MRSA Year Discovered:: 03/13/20 MDRO Source:: MRSA BACK Past Surgical History: Cholecystectomy Additional Past Surgical History / Comment(s): I&D scrotal abscess, I&D back abscess Past Anesthesia/Blood Transfusion Reactions: No Reported Reaction Past Psychological History: Anxiety Smoking Status: Former smoker Past Alcohol Use History: Occasional Past Drug Use History: None Reported - Past Family History Mother Family Medical History: Diabetes Mellitus Father History Unknown: Yes Medications and Allergies Home Medications Medication Instructions Recorded Confirmed Type Omeprazole [PriLOSEC] 40 mg PO AC-BRKFST #14 capsule. 11/04/19 07/25/20 Rx Nitroglycerin Sl Tabs [Nitrostat] 0.4 mg SUBLINGUAL Q5M PRN #30 tab 11/05/19 07/25/20 Rx Semaglutide [Ozempic] 1.5 ml SQ MO 03/11/20 07/25/20 History Gabapentin 800 mg PO TID 03/31/20 07/25/20 History Insulin Glargine,Hum.rec.anlog 56 unit SQ HS 03/31/20 07/25/20 History [Basaglar Kwikpen U-100] DULoxetine HCL [Cymbalta] 60 mg PO DAILY 04/01/20 07/25/20 History Acetaminophen Tab [Tylenol] 650 mg PO Q4H PRN 07/25/20 07/25/20 History Albuterol Sulfate [Proair Hfa] 2 puff INHALATION RT-Q6H PRN 07/25/20 07/25/20 History Daptomycin 800mg 800 mg IV DAILY 07/25/20 07/25/20 History Fluticasone Propion/Salmeterol 1 puff INHALATION RT-BID 07/25/20 07/25/20 History [Wixela 250-50 Inhub] Furosemide [Lasix] 20 mg PO DAILY 07/25/20 07/25/20 History Ibuprofen [Motrin] 800 mg PO Q8H PRN 07/25/20 07/25/20 History Potassium Chloride ER [K-Dur 20] 20 meq PO BID 07/25/20 07/25/20 History amLODIPine [Norvasc] 5 mg PO BID 07/25/20 07/25/20 History hydrALAZINE HCL [Apresoline] 25 mg PO TID 07/25/20 07/25/20 History Allergies Allergy/AdvReac Type Severity Reaction Status Date / Time No Known Allergies Allergy Verified 07/25/20 07:36 Physical Exam Vitals: Vital Signs Temp Pulse Resp BP Pulse Ox 07/26/20 19:37 93 L 07/26/20 15:25 97.7 F 88 18 139/82 94 L 07/26/20 10:11 14 07/26/20 08:36 97.8 F 82 14 114/59 94 L 07/26/20 03:00 98.0 F 79 18 104/64 97 Intake and Output 07/26/20 07/26/20 07/26/20 06:59 14:59 22:59 Other: Voiding Method Toilet Weight 87.5 kg GENERAL DESCRIPTION: Middle-aged male lying in bed, no distress. No tachypnea or accessory muscle of respiration use. HEENT: Shows Pallor , no scleral icterus. Oral mucous membrane is dry. No pharyngeal erythema or thrush NECK: Trachea central, no thyromegaly. LUNGS: Unlabored breathing. Decreased present at the base. No wheeze or crackle. HEART: S1, S2, regular rate and rhythm. No loud murmur ABDOMEN: Soft, no tenderness , guarding or rigidity, no organomegaly EXTREMITIES: 2+ edema of feet. SKIN: No rash, no masses palpable. NEUROLOGICAL: The patient is awake, alert, oriented x3, mood and affect normal. Results CBC & Chem 7: 07/25/20 05:24 07/26/20 07:42 Labs: Abnormal Lab Results - Last 24 Hours (Table) 07/26/20 07/26/20 07/26/20 Range/Units 06:51 07:42 09:23 Carbon Dioxide 36 H (22-30) mmol/L BUN 36 H (9-20) mg/dL Creatinine 2.08 H (0.66-1.25) mg/dL POC Glucose (mg/dL) 395 H 106 H (75-99) mg/dL 07/26/20 07/26/20 07/26/20 Range/Units 11:43 16:32 22:01 Carbon Dioxide (22-30) mmol/L BUN (9-20) mg/dL Creatinine (0.66-1.25) mg/dL POC Glucose (mg/dL) 113 H 266 H 322 H (75-99) mg/dL Microbiology - Last 24 Hours (Table) 07/25/20 06:46 Blood Culture - Preliminary Blood No Growth after 24 hours Assessment and Plan Assessment: 1- patient with recent MRSA bacteremia which was thought to be related to skin and soft tissue source that his lower extremity wound and cellulitis in this patient MICHELET was reviewed by CT surgery team at [facility] and they were of the Opinion that There was no endocarditis or aortic valve abscess, the patient be converted to the hospital with decrease in shortness of breath with evidence of 2+ edema feet and bilateral pleural effusion likely secondary to underlying fluid overload state and there was no evidence of any vegetation on 2-D echocardiogram during this admission (1) MRSA (methicillin resistant Staphylococcus aureus) infection Current Visit: Yes Status: Acute Code(s): A49.02 - METHICILLIN RESIS STAPH INFECTION, UNSP SITE SNOMED Code(s): 801168765 Plan: 1- patient to continue with daptomycin 800 mg IVPB daily to finish a 6 week course of therapy 2-diuretics and management of underlying fluid overload per cardiology and pulmonary team We will follow on clinical condition and cultures to further adjust medication if needed Thank you for this consultation will follow this patient with you Time with Patient: Greater than 30
[2020-07-27] MEDS: ACETAMINOPHEN TAB 325 MG TAB PO PRN (03:00)
[2020-07-27 03:41] VITALS: TEMP 98.1
[2020-07-27 06:22] LABS: Glucose,Whole Blood 107 mg/dL (75-99)
[2020-07-27] MEDS: PANTOPRAZOLE 40 MG TABLET PO SCH (06:33)
[2020-07-27] MEDS: INSULIN ASPART (NovoLOG) 100 UNIT/ML VIAL SQ SCH (06:33)
[2020-07-27] MEDS: SYMBICORT 80-4.5 MCG INHALER INHALATION SCH (07:26)
[2020-07-27] MEDS: DULoxetine HCL 60 MG CAPSULE.DR PO SCH (07:54)
[2020-07-27] MEDS: hydrALAZINE HCL 25 MG TAB PO SCH (07:54)
[2020-07-27] MEDS: METOPROLOL TARTRATE 25 MG TAB PO SCH (07:54)
[2020-07-27] MEDS: amLODIPine 5 MG TAB PO SCH (07:54)
[2020-07-27] MEDS: GABAPENTIN 400 MG CAP PO SCH (07:54)
[2020-07-27] MEDS: POTASSIUM CHLORIDE ER 20 MEQ TAB.ER PO SCH (07:55)
[2020-07-27] MEDS: ENOXAPARIN 40 MG/0.4 ML SYRINGE SQ SCH (07:55)
[2020-07-27 08:39] VITALS: BP 99/62; PULSE 77; RESP 16
[2020-07-27] MEDS ORDERED: FUROSEMIDE 20 MG TAB PO SCH ×2 (09:00→16:00)
--- NOTE | 2020-07-27 11:10 | P.NPCON ---
History of Present Illness - Reason for Consult acute renal failure - History of Present Illness Reason for consultation: Acute kidney injury History of present illness: Patient is a 50-year-old male seen in consultation for acute kidney injury. Patient's creatinine as of 03/16/2020 was as low as 0.95. It appears that he has developed episodes of acute kidney injury in the past. Creatinine was 1.39 this admission and went up to 2.08 as of yesterday. He was maintained on IV Lasix and was subsequently changed to oral Lasix yesterday. Patient presented to the hospital with chest pain or shortness of breath. Patient recently had MRSA bacteremia mostly related to skin and soft tissue source and is currently maintained on daptomycin. There was concern for endocarditis but it appears that was not the case. There is no evidence of any vegetation on echocardiogram done this admission. Infectious disease is following. Patient tested negative for Covid. He denies use of nonsteroidals. No vomiting or diarrhea. Oral intake is fair. Good urine output. No hematuria or dysuria. He does have long-standing history of diabetes mellitus. Denies family history of renal disease. Blood cultures negative this admission. Echocardiogram revealed preserved ejection fraction with moderate pulmonary hypertension. Blood pressures on the lower side this morning. Vital signs are stable. General: The patient appeared well nourished and normally developed. HEENT: Head exam is unremarkable. Neck is without jugular venous distension. LUNGS: Lungs are clear to auscultation and percussion. Breath sounds decreased. HEART: Rate and Rhythm are regular. ABDOMEN: Soft, nontender. EXTREMITITES: 1+ edema. Past Medical History Past Medical History: Heart Failure, Diabetes Mellitus, Hyperlipidemia Additional Past Medical History / Comment(s): IDDM type II, neuropathy bilateral feet, gout History of Any Multi-Drug Resistant Organisms: MRSA Date of last positivie culture/infection: 03/13/20 MDRO Source:: MRSA BACK Past Surgical History: Cholecystectomy Additional Past Surgical History / Comment(s): I&D scrotal abscess, I&D back abscess Past Anesthesia/Blood Transfusion Reactions: No Reported Reaction Past Psychological History: Anxiety Smoking Status: Former smoker Past Alcohol Use History: Occasional Past Drug Use History: None Reported - Past Family History Mother Family Medical History: Diabetes Mellitus Father History Unknown: Yes Medications and Allergies Home Medications Medication Instructions Recorded Confirmed Type Omeprazole [PriLOSEC] 40 mg PO AC-BRKFST #14 capsule. 11/04/19 07/25/20 Rx Nitroglycerin Sl Tabs [Nitrostat] 0.4 mg SUBLINGUAL Q5M PRN #30 tab 11/05/19 07/25/20 Rx Semaglutide [Ozempic] 1.5 ml SQ MO 03/11/20 07/25/20 History Gabapentin 800 mg PO TID 03/31/20 07/25/20 History Insulin Glargine,Hum.rec.anlog 56 unit SQ HS 03/31/20 07/25/20 History [Basaglar Kwikpen U-100] DULoxetine HCL [Cymbalta] 60 mg PO DAILY 04/01/20 07/25/20 History Acetaminophen Tab [Tylenol] 650 mg PO Q4H PRN 07/25/20 07/25/20 History Albuterol Sulfate [Proair Hfa] 2 puff INHALATION RT-Q6H PRN 07/25/20 07/25/20 History Daptomycin 800mg 800 mg IV DAILY 07/25/20 07/25/20 History Fluticasone Propion/Salmeterol 1 puff INHALATION RT-BID 07/25/20 07/25/20 History [Wixela 250-50 Inhub] Furosemide [Lasix] 20 mg PO DAILY 07/25/20 07/25/20 History Ibuprofen [Motrin] 800 mg PO Q8H PRN 07/25/20 07/25/20 History Potassium Chloride ER [K-Dur 20] 20 meq PO BID 07/25/20 07/25/20 History amLODIPine [Norvasc] 5 mg PO BID 07/25/20 07/25/20 History hydrALAZINE HCL [Apresoline] 25 mg PO TID 07/25/20 07/25/20 History Allergies Allergy/AdvReac Type Severity Reaction Status Date / Time No Known Allergies Allergy Verified 07/25/20 07:36 Physical Exam Vitals: Vital Signs Temp Pulse Resp BP Pulse Ox 07/27/20 08:41 77 16 07/27/20 08:38 98.1 F 77 16 99/62 96 07/27/20 02:50 98.1 F 83 18 126/72 98 07/26/20 20:00 98 F 86 17 136/78 97 07/26/20 19:37 93 L 07/26/20 15:25 97.7 F 88 18 139/82 94 L Intake and Output 07/26/20 07/27/20 07/27/20 22:59 06:59 14:59 Other: Voiding Method Toilet Toilet Toilet # Voids 2 1 1 # Bowel Movements 1 1 Weight 88.2 kg Results - Lab Results Most recent lab results Calcium 8.4 mg/dL (8.4-10.2) 07/26/20 07:42 Magnesium 1.9 mg/dL (1.6-2.3) 07/25/20 06:38 07/25/20 05:24 07/26/20 07:42 Assessment and Plan Plan: Assessment: 1. Acute kidney injury mostly prerenal secondary to diuresis and infection. Creatinine 2.09 today. Creatinine was as low as 0.95 as of 03/16/2020. 2. MRSA bacteremia maintained on antibiotics per infectious disease. 3. Acute on chronic diastolic CHF with moderate pulmonary hypertension. 4. Benign hypertension. Blood pressure in the lower side this morning. 5. Insulin-dependent diabetes mellitus. 6. Rule out chronic kidney disease. His prior UA which showed proteinuria which is likely secondary to underlying diabetic kidney disease. Further workup outpatient. 7. Fluid overload. Plan: Increase Lasix to 20 mg twice daily. Hold amlodipine and hydralazine for systolic blood pressure less than 120. Check urinalysis. Ultrasound from March 2020 revealed no evidence of hydronephrosis. Avoid nephrotoxins. I advised the patient to maintain a fluid restriction of less than 40 ounces per day and also follow a low-salt diet. He was also advised to monitor his weight closely at home and to call if edema worsens or gains more than 2-3 pounds. Repeat BMP and magnesium level 3-4 days postdischarge. Follow up outpatient in 1-2 weeks. Thank you for the consultation. I will continue to follow the patient with you during his hospital stay.
[2020-07-27 11:52] LABS: Potassium 4.4 mmol/L (3.5-5.1)
--- NOTE | 2020-07-27 11:54 | P.PN ---
Subjective Progress Note Date: 07/27/20 This is a 50-year-old gentleman with prior history of diabetes, hypertension, hyperlipidemia, chronic nicotine dependence, patient had a recent evidence of MRSA bacteremia workup which showed possibility of aortic valve endocarditis or possible abscess, subsequently the patient was transferred to [facility] for a CT surgery evaluation. He was evaluated by computed tomography scan, MICHELET was reviewed and there was no evidence of any endocarditis or abscess, they thought his bacteremia was more likely related to skin and soft tissue as the patient did have multiple wounds on his lower extremities. He did get a PICC line and was advised a four-week course of IV daptomycin which the patient has been receiving. He presented to the hospital on this admission with symptoms of shortness of breath and chest discomfort, seen in consultation by Dr. Michelle Schwarz. Patient was also found to be in some mild heart failure and was initiated on IV Lasix which had subsequently been changed to oral diuretics. Patient did have a notable rise in his creatinine for which nephrology has also been consulted to see him. His CAT scan of the chest showed moderate bilateral pleural effusions and compressive atelectasis. Blood pressure this morning 99/62, heart rate in the 70s, 96% on room air. Laboratory data from this morning is pending Objective - Vital Signs Vital signs: Vital Signs Temp 98.1 F 07/27/20 08:38 Pulse 77 07/27/20 08:41 Resp 16 07/27/20 08:41 BP 99/62 07/27/20 08:38 Pulse Ox 96 07/27/20 11:22 Intake & Output 07/26/20 07/27/20 07/27/20 18:59 06:59 18:59 Weight 87.5 kg 88.2 kg Other: Voiding Method Toilet Toilet Toilet # Voids 1 1 # Bowel Movements 1 1 - Exam PHYSICAL EXAMINATION: GENERAL: 50-year-old gentleman in no acute distress at the time of my examination HEENT: Head is atraumatic, normocephalic. Pupils equal, round. Sclera anicteric. Conjunctiva are clear. Mucous membranes of the mouth are moist. Neck is supple. There is no elevated jugular venous pressure. No carotid bruit is heard. HEART EXAMINATION: Heart S1, S2 normal. No murmur or gallop heard. CHEST EXAMINATION: Lungs are clear with diminished air entry to the bases bilaterally ABDOMEN: Soft, nontender. Bowel sounds are heard. No organomegaly noted. EXTREMITIES: 2+ peripheral pulses with 1+ evidence of peripheral edema and no calf tenderness noted. NEUROLOGIC patient is awake, alert and oriented 3 . - Labs CBC & Chem 7: 07/25/20 05:24 07/26/20 07:42 Labs: Abnormal Lab Results - Last 24 Hours (Table) 07/26/20 07/26/20 07/27/20 Range/Units 16:32 22:01 06:20 POC Glucose (mg/dL) 266 H 322 H 107 H (75-99) mg/dL Microbiology - Last 24 Hours (Table) 07/25/20 06:46 Blood Culture - Preliminary Blood No Growth after 48 hours Assessment and Plan Plan: Assessment and plan #1 MRSA bacteremia maintained on antibiotics per infectious disease #2 diastolic congestive heart failure, acute on chronic, moderate pulmonary hypertension #3 acute on chronic kidney disease #4 diabetes #5 hypertension #6 hyperlipidemia Plan From cardiology's perspective we will defer diuretic management to nephrology. No evidence of endocarditis. We will follow this patient along with you now on an as-needed basis only, please don't hesitate to call if you have any questions. DNP note has been reviewed, I agree with a documented findings and plan of care. Patient was seen and examined.
[2020-07-27 11:55] LABS: Glucose,Whole Blood 66 mg/dL (75-99)
--- NOTE | 2020-07-27 13:55 | P.PN ---
Subjective Progress Note Date: 07/27/20 Principal diagnosis: Bilateral pleural effusions secondary to acute diastolic congestive heart failure and infective endocarditis. A 50-year-old male patient coming into the hospital for some increased shortness of breath. This patient is a very calm to get medical history. Most recently, the patient was diagnosed having an endocarditis, secondary to MRSA, the exact involve valve is not known to me at this point although I suspect this was the aortic valve with possibly a cardiac Since. The patient is a PICC line and the patient is currently receiving daptomycin an outpatient basis. Diagnosis was established at [facility]. The patient came into the hospital because of some chest pain and shortness of breath. He is known to have diabetes mellitus type 1 and he has also hypertension and hyperlipidemia and previous history of skin and soft tissue infection with MRSA requiring incision and drainage. He is afebrile. No nausea. No vomiting. No abdominal pain. No pleurisy. No hemoptysis. His white cell count is at 5.1 with a hemoglobin of 9.9. He does have some relative lymphopenia. Correlation profile is within normal limits. Urine is a 28 with a creatinine of 1.39 consistent with an acute kidney injury. Blood sugars remain poorly controlled with a sugar of 228. The alkaline phosphatase is 279, LDH is at 659, on a 0.13 and a coronavirus: 19 testing came back negative. The chest x-ray shows cardiac regular with small bilateral pleural effusion and some atelectatic changes in lung bases. The CAT scan of the chest was ordered. The CAT scan of the chest shows some moderate size by 2 pleural effusion mainly in lung bases and these were present on a previous CAT scan of the abdomen that was done as part of a abdominal pain workup on 05/19/2020. 07/26/2020, the patient is feeling well. No specific complaints. He is on room air oxygen. As mentioned earlier, he has bilateral pleural effusions which are essentially chronic and he would need a thoracentesis later stage. A consent was given. He is not producing much of urine output while being on IV Lasix. Creatinine is up to 2.08 with a mean of 38 and I and up stopping the Lasix for now. He is repeat echocardiogram was noted. There is no evidence of any valvular vegetation. His ejection fraction is normal to 50-55%. There is moderate degree of pulmonary hypertension. There is small pericardial effusion. The bowels are essentially functioning well and there is no evidence of any vegetation the patient remains on daptomycin regarding his infective endocarditis with a cardiac. The repeat blood cultures are negative thus far. Reevaluated today on 07/27/20, patient remains in the observation unit, feeling better, breathing easier, chest x-ray is showing slight improvement in his pleural effusion hence I have recommended no need for thoracentesis. Patient is on diuretics, and he is responding well to diuretics. Electrolytes are normal BUN is 41 creatinine 2.0, BNP level was 3620 LDH is 659 and CPK is 184. Patient is negative for coronavirus PCR. WBC count is 5.1 hemoglobin is 9.9 patient had previous history of MRSA bacteremia, remains on antibiotics via PICC line. Objective - Vital Signs Vital signs: Vital Signs Temp 98.1 F 07/27/20 08:38 Pulse 77 07/27/20 08:41 Resp 16 07/27/20 08:41 BP 99/62 07/27/20 08:38 Pulse Ox 96 07/27/20 11:22 Intake & Output 07/26/20 07/27/20 07/27/20 18:59 06:59 18:59 Weight 87.5 kg 88.2 kg Other: Voiding Method Toilet Toilet Toilet # Voids 1 1 # Bowel Movements 1 1 - Exam GENERAL EXAM: Revealed a 50-year-old white male in no distress. Head: Atraumatic, normocephalic. EENT: PERRLA, EOMI, no icterus. CHEST: No chest wall deformity. Symmetrical expansion. LUNGS: Equal air entry with , fine crackles at the bases. CVS: Regular rate and rhythm, normal S1 and S2, no gallops, no murmurs, no rubs, there is a stage II systolic ejection murmur over the apex. ABDOMEN: Soft, nontender. No hepatosplenomegaly, normal bowel sounds, no guarding or rigidity. EXTREMITIES: No clubbing, no edema, no cyanosis, 2+ pulses and upper and lower extremities. MUSCULOSKELETAL: Muscle strength and tone normal. SPINE: No scoliosis or deformity SKIN: left flank cellulitis, 2 surg wounds, covered with dressings, multiple skin abrasions noted and lower extremities bilaterally. CENTRAL NERVOUS SYSTEM: Alert and oriented -3. No focal deficits.. PSYCHIATRIC: Normal mood, affect and normal mental status examination. - Labs CBC & Chem 7: 07/25/20 05:24 07/27/20 11:22 Labs: Abnormal Lab Results - Last 24 Hours (Table) 07/26/20 07/26/20 07/27/20 Range/Units 16:32 22:01 06:20 Carbon Dioxide (22-30) mmol/L BUN (9-20) mg/dL Creatinine (0.66-1.25) mg/dL Glucose (74-99) mg/dL POC Glucose (mg/dL) 266 H 322 H 107 H (75-99) mg/dL Calcium (8.4-10.2) mg/dL 07/27/20 07/27/20 Range/Units 11:22 11:52 Carbon Dioxide 35 H (22-30) mmol/L BUN 41 H (9-20) mg/dL Creatinine 2.00 H (0.66-1.25) mg/dL Glucose 65 L (74-99) mg/dL POC Glucose (mg/dL) 66 L (75-99) mg/dL Calcium 8.0 L (8.4-10.2) mg/dL Microbiology - Last 24 Hours (Table) 07/25/20 06:46 Blood Culture - Preliminary Blood No Growth after 48 hours Assessment and Plan Assessment: Impression: Bilateral pleural effusions, secondary to underlying diastolic congestive heart failure, acute, and underlying infective endocarditis. Infective endocarditis of the aortic valve currently on daptomycin via PICC line. Acute kidney injury Type 2 diabetes with complications as below Diabetic retinopathy and peripheral neuropathy Benign essential hypertension Recommendation: Continue present treatment plan including diuretics, antibiotics, no need for diagnostic or therapeutic thoracentesis. Patient is presently on room air, consider discharge planning, cleared from our perspective, if cleared by cardiology for discharge planning. Cardiology is following. Nephrology is also following his renal function. We'll follow the patient is not discharged home. Time with Patient: Less than 30
--- NOTE | 2020-07-27 14:36 | PN ---
PROGRESS NOTE DATE OF SERVICE: 07/27/2020 REASON FOR FOLLOWUP: MRSA bacteremia. INTERVAL HISTORY: The patient is currently afebrile. The patient is breathing comfortably. Denies having any chest pain or shortness of breath. The patient had chest pain, his breathing has improved. Did have a cough, not bringing up any sputum. No nausea, vomiting, no abdominal pain or diarrhea. PHYSICAL EXAMINATION: Blood pressure 99/62 with pulse of 77, temperature 98.1, he is 96% on room air. General description is a middle-aged male, up in the in no distress. RESPIRATORY SYSTEM: Unlabored breathing, decreased breath sounds, no wheeze. HEART: S1, S2. Regular rate and rhythm. ABDOMEN: Soft. LEGS: Currently wrapped up. LABS: BUN 41, creatinine is 2.1. DIAGNOSTIC IMPRESSION AND PLAN: Patient with MRSA bacteremia source was lower extremity wound cellulitis in this patient currently on IV daptomycin to continue, local care to continue as ordered and close outpatient followup. MMODL / IJN: [id number] /
--- NOTE | 2020-07-28 23:42 | P.DS ---
Providers Date of admission: 07/25/20 18:42 Expected date of discharge: 07/27/20 Attending physician: Armando Pablo Consults: 07/25/20 06:31 Consult Physician Routine Consulting Provider: Pieter Payne Consult Reason/Comments: chf Do you want consulting provider notified?: Yes 07/25/20 08:54 Consult Physician Routine Consulting Provider: Sadie Faulkner Consult Reason/Comments: possible pneumonia Do you want consulting provider notified?: Yes 07/25/20 18:43 Consult Physician Routine Consulting Provider: Shaan Milligan Consult Reason/Comments: Endocarditis Do you want consulting provider notified?: Yes 07/26/20 17:31 Consult Physician Routine Consulting Provider: Rito Christine Consult Reason/Comments: Kidney disease Do you want consulting provider notified?: Yes Primary care physician: [facility] Course: Chief Complaint: Short of breath istory of present complaint: This is a very pleasant 50-year-old patient was chronic stable medical conditions include diabetes mellitus type 2, peripheral neuropathy, hyperlipidemia and a prior history of MRSA abscess and cellulitis.. Patient woke up from sleeping shortness of breath. Dry cough. No fever. Decreased appetite. No phlegm. Patient has chronic edema. No obvious chills. Patient last month was diagnosed at [facility] with endocarditis and was transferred to [facility] for a possible abscess. Possibly located aortic valve. Has a PICC line in place with IV antibiotics/daptomycin. Echocardiogram in May of this year showed EF of 55-60%. His edema is rather chronic. Admitted with acute CHF exacerbation EF 50-55%. Put on IV Lasix. IV daptomycin continued for MRSA bacteremia felt to be from lower extremity wound. Patient does not seem to have had aortic valve dermatitis.. Computed tomography scan of the chest shows bilateral pleural effusions. Reviewed by Dr. Faulkner. [place] to be chronic.not for thoracentesis. Today-breathing improved. Discussed with the patient. With complete his course of daptomycin. Cleared by cardiology and pulmonary.blood culture negative. Consultation: Dr. Faulkner [facility] Dr. Milligan from [facility] Physical examination: VITAL SIGNS:98.1, 77, 16, 99/62, 96% room air GENERAL: sitting up, comfortable EYES: Pupils equal. Conjunctiva normal. NECK: JVD not raised; masses not palpable. HEART: First and second heart sounds are normal; edema present LUNGS: Respiratory rate increased, decreased breath sounds. ABDOMEN: Soft, nontender, liver spleen not palpable, no masses palpable. PSYCH: Alert and oriented x3; mood and affect normal. INVESTIGATIONS, reviewed in the clinical context: BUN 41, creatinine 2 Previous testing White count 5.1 hemoglobin 9.9 platelets 24 potassium 4.6 bun 28 creatinine 1.39 blood glucose 368. ABG 1.8. Troponin I 2 negative proBNP 3620 CRP 6.3 Pro-calcitonin 0.13 Coronavirus-not detected EKG tracing personally reviewed by me-normal sinus rhythm Chest x-ray film personally reviewed by me-cardiomegaly, pulmonary edema 2-D echocardiogram-EF 55-55%, moderate pulmonary hypertension Assessment: -Acute congestive heart failure exacerbation from diastolic dysfunction EF 50-55%-clinically improved -Bilateral pleural effusion felt to be chronic.-not for thoracentesis -Secondary pulmonary hypertension due to CHF -recent MRSA bacteremia from lower extremity wounds. [Patient did not have aortic valve endocarditis]. 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 Nitroglycerin Sl Tabs [Nitrostat] 0.4 mg SUBLINGUAL Q5M PRN #30 tab PRN Reason: Chest Pain Semaglutide [Ozempic] 1.5 ml SQ MO DULoxetine HCL [Cymbalta] 60 mg PO DAILY Acetaminophen Tab [Tylenol] 650 mg PO Q4H PRN PRN Reason: Mild Pain Or Fever > 100.5 Albuterol Sulfate [Proair Hfa] 2 puff INHALATION RT-Q6H PRN PRN Reason: Shortness Of Breath amLODIPine [Norvasc] 5 mg PO BID Fluticasone Propion/Salmeterol [Wixela 250-50 Inhub] 1 puff INHALATION RT-BID Daptomycin 800mg 800 mg IV DAILY Changed Insulin Glargine,Hum.rec.anlog [Basaglar Kwikpen U-100] 48 unit SQ HS #0 Potassium Chloride ER [K-Dur 20] 20 meq PO DAILY #0 Furosemide [Lasix] 20 mg PO BID #60 tab Discontinued hydrALAZINE HCL [Apresoline] 25 mg PO TID Ibuprofen [Motrin] 800 mg PO Q8H PRN PRN Reason: Pain No Action Gabapentin 800 mg PO TID Discharge Medication List Omeprazole [PriLOSEC] 40 mg PO AC-BRKFST #14 capsule. 11/04/19 [Rx] Nitroglycerin Sl Tabs [Nitrostat] 0.4 mg SUBLINGUAL Q5M PRN #30 tab 11/05/19 [Rx] Semaglutide [Ozempic] 1.5 ml SQ MO 03/11/20 [History] Gabapentin 800 mg PO TID 03/31/20 [History] DULoxetine HCL [Cymbalta] 60 mg PO DAILY 04/01/20 [History] Acetaminophen Tab [Tylenol] 650 mg PO Q4H PRN 07/25/20 [History] Albuterol Sulfate [Proair Hfa] 2 puff INHALATION RT-Q6H PRN 07/25/20 [History] Daptomycin 800mg 800 mg IV DAILY 07/25/20 [History] Fluticasone Propion/Salmeterol [Wixela 250-50 Inhub] 1 puff INHALATION RT-BID 07/25/20 [History] amLODIPine [Norvasc] 5 mg PO BID 07/25/20 [History] Furosemide [Lasix] 20 mg PO BID #60 tab 07/27/20 [Rx] Insulin Glargine,Hum.rec.anlog [Basaglar Kwikpen U-100] 48 unit SQ HS #0 07/27/20 [Rx] Metoprolol Tartrate [Lopressor] 25 mg PO BID #60 tab 07/27/20 [Rx] Potassium Chloride ER [K-Dur 20] 20 meq PO DAILY #0 07/27/20 [Rx] Follow up Appointment(s)/Referral(s): [facility], [NON-STAFF] - As Needed Meet Fontanez DO [Primary Care Provider] - 1-2 days Rito Christine DO [STAFF PHYSICIAN] - 10 Days ( ) Shaan Milligan MD [STAFF PHYSICIAN] - 08/10/20 2:00 pm Sadie Faulkner MD [STAFF PHYSICIAN] - 08/03/20 2:15 pm Patient Instructions/Handouts: Endocarditis (DC), MRSA (Methicillin-Resistant Staphylococcus Aureus) (DC), Pleural Effusion (DC) Activity/Diet/Wound Care/Special Instructions: [facility] #[phone] cbc/bmp - 4 days
--- NOTE | 2020-07-29 12:37 | CDI ---
Documentation Clarification Form Date: 07/29/2020 12:27:00 PM From: Sammi Ocasio Phone: If you have a question about this query, please contact Ro Hamilton Technician Assistant at [phone] between 8am and 5pm Admit Date: 07/25/2020 06:42:00 PM Patient Name: Marquez Squires Visit Number: [id number] Discharge Date: 07/27/2020 01:38:00 PM ATTENTION: The Clinical Documentation Specialists (CDI) and [facility] Coding Staff appreciate your assistance in clarifying documentation. Please respond to the clarification below the line at the bottom and electronically sign. The CDI & [facility] Coding staff will review the response and follow-up if needed. Please note: Queries are made part of the Legal Health Record. If you have any questions, please contact the author of this message via ITS. Dr. Armando Pablo Conflicting documentation has been found in the medical record: Per Pulmonary consult and PN's 07/26 and 07/27 patient has Diabetes Type I uncontrolled. Per H and P and DCS patient has Type II Diabetes uncontrolled. Please clarify if patient has Type I or Type II Diabetes. History/Risk Factors: DM retinopathy, neuropathy, CKD III Clinical Indicators: Treatment: Insulin In your opinion, what is the most clinically appropriate diagnosis for this patient? Type I DM uncontrolled Type II DM uncontrolled Other explanation of clinical findings Unable to determine (no explanation for clinical findings) Diabetes mellitus type 2 uncontrolled MTDD
== END 2020-07-27 13:38 | disposition home or self-care (01) | DRG 291 ==
LOC: EC 05:01 → 1SOBS 06:34 → OBSVTOIN 18:42
PROVIDERS: ADMIT Hospitalist; ATTEND Hospitalist
DX: I13.0 Hypertensive heart and chronic kidney disease with heart failure and stage 1 through stage 4 chronic kidney disease, or unspecified chronic kidney disease (principal); I50.33 Acute on chronic diastolic (congestive) heart failure; J98.11 Atelectasis; L03.119 Cellulitis of unspecified part of limb; I31.3 Pericardial effusion (noninflammatory); N17.9 Acute kidney failure, unspecified; J44.9 Chronic obstructive pulmonary disease, unspecified; B95.62 Methicillin resistant Staphylococcus aureus infection as the cause of diseases classified elsewhere; I27.29 Other secondary pulmonary hypertension; D72.810 Lymphocytopenia; Z20.828 Contact with and (suspected) exposure to other viral communicable diseases; E11.22 Type 2 diabetes mellitus with diabetic chronic kidney disease; E11.65 Type 2 diabetes mellitus with hyperglycemia; N18.30 Chronic kidney disease, stage 3 unspecified; Z79.4 Long term (current) use of insulin; E11.319 Type 2 diabetes mellitus with unspecified diabetic retinopathy without macular edema; E11.42 Type 2 diabetes mellitus with diabetic polyneuropathy; E78.5 Hyperlipidemia, unspecified; F17.210 Nicotine dependence, cigarettes, uncomplicated; F41.9 Anxiety disorder, unspecified; R09.02 Hypoxemia; T50.2X5A Adverse effect of carbonic-anhydrase inhibitors, benzothiadiazides and other diuretics, initial encounter; Z79.899 Other long term (current) drug therapy; Z83.3 Family history of diabetes mellitus; Z86.79 Personal history of other diseases of the circulatory system; Z91.19 Patient's noncompliance with other medical treatment and regimen; Z90.49 Acquired absence of other specified parts of digestive tract; M10.9 Gout, unspecified; Z79.2 Long term (current) use of antibiotics
CPT/HCPCS: 36415; 71045; 71250; 80048; 80053; 82550; 82728; 83605; 83615; 83690; 83735; 83880; 84145; 84484; 85025; 85610; 85730; 86140; 87040; 87635; 93005; 93306; 94640; 96374; 99285

== ENCOUNTER 2020-10-03 13:04 | Inpatient (IN) | payer OTHER ==
[2020-10-03] MEDS ORDERED: SODIUM CHLORIDE 0.9% 500 ML 500 ML IV STA (13:16)
--- NOTE | 2020-10-03 13:41 | ED ---
General Adult HPI - General Chief complaint: Chest Pain Stated complaint: chest pain Time Seen by Provider: 10/03/20 13:15 Source: patient, RN notes reviewed, old records reviewed Mode of arrival: wheelchair Limitations: no limitations - History of Present Illness Initial comments: 50-year-old male presented for evaluation of left upper chest pain. Pain is worse with deep inspiration. Described as a sharp pain that is between his shoulder and sternum. He denies central radiating chest pain. Denies diaphoresis. Denies significant dyspnea. Denies preceding cough. No fever. No abdominal pain. No nausea vomiting or diaphoresis. He has previous history of endocarditis, CHF, type 1 diabetes. - Related Data Home Medications Medication Instructions Recorded Confirmed Gabapentin 800 mg PO TID 03/31/20 10/03/20 DULoxetine HCL [Cymbalta] 60 mg PO DAILY 04/01/20 10/03/20 Acetaminophen Tab [Tylenol] 650 mg PO Q4H PRN 07/25/20 10/03/20 Albuterol Sulfate [Proair Hfa] 2 puff INHALATION RT-Q6H PRN 07/25/20 10/03/20 Fluticasone Propion/Salmeterol 1 puff INHALATION RT-BID 07/25/20 10/03/20 [Wixela 250-50 Inhub] amLODIPine [Norvasc] 5 mg PO BID 07/25/20 10/03/20 Insulin Glargine,Hum.rec.anlog 56 unit SQ HS 10/03/20 10/03/20 [Basaglar Kwikpen U-100] Ketorolac 0.5% Ophth Soln [Acular] 1 drops RIGHT EYE QID 10/03/20 10/03/20 Ofloxacin 0.3% Ophth Soln [Ocuflox 1 drop RIGHT EYE TID 10/03/20 10/03/20 Ophth Soln] Potassium Chloride ER [K-Dur 20] 20 meq PO BID 10/03/20 10/03/20 Semaglutide [Ozempic] 1 mg SQ TH 10/03/20 10/03/20 prednisoLONE ACETATE [Pred Forte 1 drop RIGHT EYE QID 10/03/20 10/03/20 1%] traZODone HCL 150 mg PO HS 10/03/20 10/03/20 Previous Rx's Medication Instructions Recorded Omeprazole [PriLOSEC] 40 mg PO AC-BRKFST #14 capsule. 11/04/19 Nitroglycerin Sl Tabs [Nitrostat] 0.4 mg SUBLINGUAL Q5M PRN #30 tab 11/05/19 Furosemide [Lasix] 20 mg PO BID #60 tab 07/27/20 Metoprolol Tartrate [Lopressor] 25 mg PO BID #60 tab 07/27/20 Allergies Allergy/AdvReac Type Severity Reaction Status Date / Time No Known Allergies Allergy Verified 10/03/20 13:56 Review of Systems ROS Statement: Those systems with pertinent positive or pertinent negative responses have been documented in the HPI. ROS Other: All systems not noted in ROS Statement are negative. Past Medical History Past Medical History: Heart Failure, Diabetes Mellitus, Hyperlipidemia, Hypertension Additional Past Medical History / Comment(s): IDDM type II, neuropathy bilateral feet, gout History of Any Multi-Drug Resistant Organisms: MRSA Date of last positivie culture/infection: 03/13/20 MDRO Source:: MRSA BACK Past Surgical History: Cholecystectomy Additional Past Surgical History / Comment(s): I&D scrotal abscess, I&D back abscess Past Anesthesia/Blood Transfusion Reactions: No Reported Reaction Past Psychological History: Anxiety Smoking Status: Former smoker Past Alcohol Use History: Occasional Past Drug Use History: None Reported - Past Family History Mother Family Medical History: Diabetes Mellitus Father History Unknown: Yes General Exam Limitations: no limitations General appearance: alert, in no apparent distress Head exam: Present: atraumatic, normocephalic Eye exam: Present: normal appearance, PERRL ENT exam: Present: normal exam Neck exam: Present: normal inspection. Absent: tenderness, meningismus Respiratory exam: Present: decreased breath sounds (Somewhat decreased on the left). Absent: respiratory distress, wheezes, rales, rhonchi Cardiovascular Exam: Present: regular rate, normal rhythm GI/Abdominal exam: Present: soft. Absent: distended, tenderness, guarding Extremities exam: Present: normal inspection, normal capillary refill. Absent: pedal edema, joint swelling, calf tenderness Neurological exam: Present: alert, oriented X3, CN II-XII intact. Absent: motor sensory deficit Psychiatric exam: Present: normal affect, normal mood Skin exam: Present: warm, dry, intact. Absent: cyanosis, diaphoretic Course Vital Signs 10/03/20 13:05 Temperature 98.2 F Pulse Rate 101 H Respiratory 16 Rate Blood Pressure 91/63 O2 Sat by Pulse 100 Oximetry EKG Findings - EKG Comments: EKG Findings:: EKG obtained at 1315, normal sinus rhythm, possible left atrial enlargement, rate of 94, CA interval 156, QRS duration 100, QTC 445, question ST segment elevation in V2 alone versus CA depression. EKG is repeated at 1336, normal sinus rhythm, rate of 94, CA interval 152, QRS duration 96, QTC 450, no visible ST segment elevation. Medical Decision Making - Medical Decision Making 50-year-old male with left upper chest pain. Multiple medical problems include diabetes, hypertension, hyperlipidemia, endocarditis in the recent past, she has CHF. EKG showing sinus rhythm, chest x-rays negative for acute cardiopulmonary findings. He has a normal white blood cell count, hemoglobin is 12.1 which is trending up. He has creatinine 2.39 which is essentially baseline for this patient. His troponin is negative. Given the pleuritic nature of his chest pain I did order a VQ scan to rule out pulmonary embolism. Pain is improved while in the emergency department. I discussed case with Dr. Coffey who will accept admission, cardiology placed on consult, VQ scan pending. - Lab Data Result diagrams: 10/03/20 13:32 10/03/20 13:32 Lab Results 10/03/20 10/03/20 10/03/20 Range/Units 13:32 13:32 13:32 WBC 7.0 (3.8-10.6) k/uL RBC 4.33 (4.30-5.90) m/uL Hgb 12.1 L (13.0-17.5) gm/dL Hct 34.1 L (39.0-53.0) % MCV 78.8 L (80.0-100.0) fL MCH 28.1 (25.0-35.0) pg MCHC 35.7 (31.0-37.0) g/dL RDW 14.5 (11.5-15.5) % Plt Count 250 (150-450) k/uL MPV 8.6 Neutrophils % 65 % Lymphocytes % 20 % Monocytes % 7 % Eosinophils % 4 % Basophils % 1 % Neutrophils # 4.6 (1.3-7.7) k/uL Lymphocytes # 1.4 (1.0-4.8) k/uL Monocytes # 0.5 (0-1.0) k/uL Eosinophils # 0.3 (0-0.7) k/uL Basophils # 0.1 (0-0.2) k/uL PT 9.9 (9.0-12.0) sec INR 0.9 (<1.2) APTT 21.7 L (22.0-30.0) sec Sodium 132 L (137-145) mmol/L Potassium 5.1 (3.5-5.1) mmol/L Chloride 97 L (98-107) mmol/L Carbon Dioxide 23 (22-30) mmol/L Anion Gap 12 mmol/L BUN 59 H (9-20) mg/dL Creatinine 2.39 H (0.66-1.25) mg/dL Est GFR (CKD-EPI)AfAm 36 (>60 ml/min/1.73 sqM) Est GFR (CKD-EPI)NonAf 31 (>60 ml/min/1.73 sqM) Glucose 329 H (74-99) mg/dL Calcium 9.4 (8.4-10.2) mg/dL Magnesium 2.4 H (1.6-2.3) mg/dL Total Bilirubin 0.6 (0.2-1.3) mg/dL AST 32 (17-59) U/L ALT 30 (4-49) U/L Alkaline Phosphatase 171 H (38-126) U/L Troponin I (0.000-0.034) ng/mL NT-Pro-B Natriuret Pep pg/mL Total Protein 7.8 (6.3-8.2) g/dL Albumin 3.8 (3.5-5.0) g/dL Lipase 120 (23-300) U/L Coronavirus (PCR) (Not Detectd) 10/03/20 10/03/20 10/03/20 Range/Units 13:32 13:32 13:32 WBC (3.8-10.6) k/uL RBC (4.30-5.90) m/uL Hgb (13.0-17.5) gm/dL Hct (39.0-53.0) % MCV (80.0-100.0) fL MCH (25.0-35.0) pg MCHC (31.0-37.0) g/dL RDW (11.5-15.5) % Plt Count (150-450) k/uL MPV Neutrophils % % Lymphocytes % % Monocytes % % Eosinophils % % Basophils % % Neutrophils # (1.3-7.7) k/uL Lymphocytes # (1.0-4.8) k/uL Monocytes # (0-1.0) k/uL Eosinophils # (0-0.7) k/uL Basophils # (0-0.2) k/uL PT (9.0-12.0) sec INR (<1.2) APTT (22.0-30.0) sec Sodium (137-145) mmol/L Potassium (3.5-5.1) mmol/L Chloride (98-107) mmol/L Carbon Dioxide (22-30) mmol/L Anion Gap mmol/L BUN (9-20) mg/dL Creatinine (0.66-1.25) mg/dL Est GFR (CKD-EPI)AfAm (>60 ml/min/1.73 sqM) Est GFR (CKD-EPI)NonAf (>60 ml/min/1.73 sqM) Glucose (74-99) mg/dL Calcium (8.4-10.2) mg/dL Magnesium (1.6-2.3) mg/dL Total Bilirubin (0.2-1.3) mg/dL AST (17-59) U/L ALT (4-49) U/L Alkaline Phosphatase (38-126) U/L Troponin I <0.012 (0.000-0.034) ng/mL NT-Pro-B Natriuret Pep 330 pg/mL Total Protein (6.3-8.2) g/dL Albumin (3.5-5.0) g/dL Lipase (23-300) U/L Coronavirus (PCR) Not Detected (Not Detectd) Disposition Clinical Impression: Atypical chest pain, Chest pain Disposition: ADMITTED IP TO THIS [facility] Condition: Stable Is patient prescribed a controlled substance at d/c from ED?: No Referrals: Meet Fontanez DO [Primary Care Provider] - 1-2 days Decision to Admit Reason: Admit from EC Decision Date: 10/03/20 Decision Time: 14:46
[2020-10-03 13:43] LABS: Basophils # (A) 0.1 k/uL (0-0.2); Basophils % (A) 1 %; Eosinophils # (A) 0.3 k/uL (0-0.7); Eosinophils % (A) 4 %; HCT 34.1 % (39.0-53.0); HGB 12.1 gm/dL (13.0-17.5); Lymphocytes # (A) 1.4 k/uL (1.0-4.8); Lymphocytes % (A) 20 %; MCH 28.1 pg (25.0-35.0); MCHC 35.7 g/dL (31.0-37.0); MCV 78.8 fL (80.0-100.0); Mean Platelet Volume 8.6; Monocytes # (A) 0.5 k/uL (0-1.0); Monocytes % (A) 7 %; Neutrophils # (A) 4.6 k/uL (1.3-7.7); Neutrophils % (A) 65 %; Platelet Count 250 k/uL (150-450); RBC 4.33 m/uL (4.30-5.90); RDW 14.5 % (11.5-15.5)
[2020-10-03 13:58] LABS: Albumin 3.8 g/dL (3.5-5.0); Calcium 9.4 mg/dL (8.4-10.2); Magnesium 2.4 mg/dL (1.6-2.3); Potassium 5.1 mmol/L (3.5-5.1); Total Bilirubin 0.6 mg/dL (0.2-1.3); Total Protein 7.8 g/dL (6.3-8.2)
[2020-10-03 14:04] LABS: INR 0.9 (<1.2); Prothrombin Time 9.9 sec (9.0-12.0)
--- NOTE | 2020-10-03 14:04 | XR ---
EXAMINATION TYPE: XR chest 1V portable DATE OF EXAM: 10/03/2020 COMPARISON: Chest x-ray dated 07/25/2020 HISTORY: Chest pain TECHNIQUE: Single frontal view of the chest is obtained. FINDINGS: There is no focal air space opacity, pleural effusion, or pneumothorax seen. The cardiac silhouette size is within normal limits. There are overlying cardiac leads. The osseous structures a re intact. IMPRESSION: No acute process.
[2020-10-03] MEDS ORDERED: HYDROmorphone 0.5 MG/0.5 ML SYRINGE IVP STA (14:09)
[2020-10-03 14:22] LABS: Partial Thromboplastin Time 21.7 sec (22.0-30.0)
[2020-10-03] MEDS ORDERED: HYDROmorphone 1 MG/ML 1 ML SYRINGE IVP PRN (14:39)
[2020-10-03] MEDS ORDERED: NALOXONE 0.4 MG/ML 1 ML VIAL IV PRN (14:39)
[2020-10-03] MEDS ORDERED: ACETAMINOPHEN TAB 325 MG TAB PO PRN (14:39)
[2020-10-03] MEDS ORDERED: ASPIRIN 325 MG TAB PO STA (14:39)
[2020-10-03] MEDS ORDERED: HYDROmorphone 0.5 MG/0.5 ML SYRINGE IVP PRN (14:39)
[2020-10-03] MEDS ORDERED: SODIUM CHLORIDE 0.9% 1,000 ML IV SCH (14:45)
--- NOTE | 2020-10-03 15:38 | NM ---
EXAMINATION TYPE: NM pul vent and perfuse DATE OF EXAM: 10/03/2020 COMPARISON: NONE HISTORY: TECHNIQUE: Utilizing inhalation of 69.2 mCi Tc 99m DTPA aerosol and intravenous injection of 5.0 mCi of Tc 99m MAA, ventilation and perfusion images are acquired post injection in multiple projections. FINDINGS: There is fairly normal uniform ventilation and perfusion of both lungs. I see no segmental or subsegm ental defect. IMPRESSION: Normal exam. There is very low probability of pulmonary embolism.
[2020-10-03] MEDS ORDERED: NITROGLYCERIN SL TABS 0.4 MG TAB SUBLINGUAL PRN (19:11)
[2020-10-03] MEDS ORDERED: ALBUTEROL NEBULIZED 2.5 MG/3 ML INHALATION PRN (19:11)
[2020-10-03] MEDS ORDERED: ALPRAZolam 0.25 MG TAB PO PRN (19:13)
[2020-10-03] MEDS ORDERED: HYDROcodone/APAP 5-325MG 1 EACH TAB PO PRN (19:13)
[2020-10-03] MEDS: SYMBICORT 80-4.5 MCG INHALER INHALATION SCH (20:27)
--- NOTE | 2020-10-03 21:22 | HP ---
HISTORY AND PHYSICAL DATE OF SERVICE: 10/03/2020 CHIEF COMPLAINT: Chest pain. HISTORY OF PRESENT ILLNESS: This 50-year-old gentleman with a past medical history of multiple medical problems including CHF, diabetes, hypertension, hyperlipidemia, history of peripheral neuropathy history of MRSA, apparent aortic endocarditis, being followed by Dr. Meet Fontanez in the outpatient setting also had a recent history of MRSA bacteremia. The patient is complaining of left upper chest pain which is worse with deep inspiration. The patient has multiple abnormal labs including creatinine 2.39 and the baseline is only about 1.6 and even normal a few months ago. The patient admitted for evaluation and treatment. A chest x-ray which was reviewed personally by me showed no acute process. A V/Q scan was done because of the elevated D-dimer, but the creatinine showed low probability of pulmonary embolism. Covid 19 testing is negative at this time rapid testing. There is no history of fever, rigors. No headache or loss of consciousness. Patient has some vomiting at this time. 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 Examination of the skin revealed multiple cellulitis present on the right upper arm, and also right leon. PAST MEDICAL HISTORY: History of CHF, diabetes mellitus type 2, hypertension, hyperlipidemia, history of cholecystectomy. MEDICATIONS: Trazodone, PredForte, , K-Dur, Prilosec, Nitrostat. Lopressor, QV pen, Lasix, Cymbalta, Norvasc, ProAir, Tylenol. ALLERGIES: None. FAMILY HISTORY: Diabetes mellitus type 2 in the family. SOCIAL HISTORY: Previous history of smoking. No history of alcohol intake. REVIEW OF SYSTEMS: ENT: No diminished vision. No diminished hearing. Cardiovascular as mentioned earlier. RESPIRATORY: As mentioned earlier. GI no nausea or vomiting. no dysuria. NERVOUS SYSTEM: No numbness, weakness. ALLERGY/IMMUNOLOGY: No asthma or hayfever. MUSCULOSKELETAL as mentioned earlier. HEMATOLOGY/ONCOLOGY: No history of anemia. ENDOCRINE: As mentioned earlier. CONSTITUTIONAL: As mentioned earlier. DERMATOLOGY: Negative. RHEUMATOLOGY: Negative. PSYCHIATRIC: As mentioned earlier. PHYSICAL EXAMINATION: Alert and oriented times three. Pulse 90, blood pressure 150/80, respirations 16, temperature 97.6. Pulse ox 100 percent on room air. HEENT: Conjunctivae normal. NECK: No JVD. CARDIOVASCULAR: S1, S2 muffled. RESPIRATORY SYSTEM: Breath sounds diminished at the bases. A few scattered rhonchi. No crackles. ABDOMEN: Soft, nontender. No mass palpable. LEGS: No edema. No swelling. NERVOUS SYSTEM: Higher functions as mentioned earlier. Moves all 4 limbs. No focal motor or sensory deficits. LYMPHATICS: No lymph nodes palpable in the neck, axilla or groin. SKIN: No ulcers, no rashes and no bleeding. JOINTS: No active deforming arthropathy. LABS: WBC 7, hemoglobin is 12.1. Sodium is 132, creatinine 2.39. ASSESSMENT: 1. Chest pain possible unstable angina. 2. Acute renal failure with prerenal acute tubular necrosis. 3. Chronic kidney stage 3 possibly. 4. Severe multiple cellulitis process. 5. Hyponatremia. 6. Anemia microcytic. 7. History of congestive heart failure with ejection fraction 50-55 percent with chronic diastolic dysfunction. 8. History of MRSA bacteremia. 9. History of diabetes type 2. 10.Hypertension. 11.Hyperlipidemia. 12.History of bilateral peripheral neuropathy. 13.History of gout. 14.History of cholecystectomy. 15.History of anxiety. 16.Remote history of nicotine dependence. 17.FULL CODE. RECOMMENDATIONS AND DISCUSSION: This 50-year-old gentleman who presented with multiple complex medical issues, we will monitor the patient closely, continue the current medications, management and symptomatic treatment. Rule out myocardial infarction. Resume the home medications. Cardiology consultation. Repeat labs. Avoid nephrotoxic medications. Cautious IV fluids. Otherwise I would also recommend a short course of antibiotics because of the infections and I would also recommend Kefzol at this time and obtain the cultures and continue to monitor. Guarded prognosis. Further recommendations to follow. MMODL / IJN: [id number] / MTDPatience
[2020-10-03 21:23] LABS: Glucose,Whole Blood 438 mg/dL (75-99)
[2020-10-03] MEDS: amLODIPine 5 MG TAB PO SCH (21:45)
[2020-10-03] MEDS: GABAPENTIN 400 MG CAP PO SCH (22:39)
[2020-10-03] MEDS: traZODone HCL 50 MG TAB PO SCH (22:39)
[2020-10-03] MEDS: METOPROLOL TARTRATE 25 MG TAB PO SCH (22:40)
[2020-10-03] MEDS: KETOROLAC 0.5% OPHTH DROPS 5 ML BTL RIGHT EYE SCH (22:41)
[2020-10-03] MEDS: prednisoLONE ACETATE 1% OPHTH DROPS 5 ML BTL RIGHT EYE SCH (22:41)
[2020-10-03] MEDS: HEPARIN SODIUM,PORCINE 5,000 UNIT/ML 1 ML VIAL SQ SCH (22:41)
[2020-10-03] MEDS: POTASSIUM CHLORIDE ER 20 MEQ TAB.ER PO SCH (22:42)
[2020-10-03] MEDS: INSULIN ASPART (NovoLOG) 100 UNIT/ML VIAL SQ SCH (22:43)
[2020-10-03] MEDS: OFLOXACIN 0.3% OPHTH DROPS 5 ML BOTTLE RIGHT EYE SCH (22:43)
[2020-10-03] MEDS: INSULIN DETEMIR (LEVEMIR) 100 UNIT/ML SYR SQ SCH (22:44)
[2020-10-04] LABS: African American GFR (CKD) 33.7 (60.0-200.0); Albumin 3.5 g/dL (3.80-4.90); Albumin/Globulin Ratio 1.17 (1.60-3.17); Anion Gap 4.8 mmol/L (4.00-12.00); BUN/Creat Ratio 23.2 Ratio (12.00-20.00); Calcium 8.6 mg/dL (8.7-10.3); Carbon Dioxide 26.2 mmol/L (21.6-31.8); Non-African American GFR(CKD) 29.1 (60.0-200.0); Potassium 5.3 mmol/L (3.5-5.5); Total Bilirubin 0.4 mg/dL (0.2-1.2); Total Protein 6.5 g/dL (6.2-8.2)
[2020-10-04] MEDS: FUROSEMIDE 20 MG TAB PO SCH ×4 (00:12→17:37)
[2020-10-04 00:23] LABS: Amorphous Sediment,Urine Rare /hpf; Appearance,Urine Clear (Clear); Bilirubin,Urine Negative (Negative); Blood,Urine Negative (Negative); Color,Urine Light Yellow; Glucose,Urine (UA) 4+ (Negative); Hyaline Casts,Urine 10 /lpf (0-2); Ketones,Urine Negative (Negative); Leukocyte Esterase,Urine Negative (Negative); Mucus,Urine Rare /hpf; Nitrite,Urine Negative (Negative); Protein,Urine 1+ (Negative); Specific Gravity,Urine 1.018 (1.001-1.035); Urobilinogen,Urine <2.0 mg/dL (<2.0); WBC,Urine <1 /hpf (0-5)
[2020-10-04 03:04] LABS: Glucose,Whole Blood 176 mg/dL (75-99)
[2020-10-04] MEDS: POTASSIUM CHLORIDE ER 20 MEQ TAB.ER PO SCH ×2 (07:07→21:16)
[2020-10-04 07:17] LABS: Glucose,Whole Blood 151 mg/dL (75-99)
[2020-10-04] MEDS: amLODIPine 5 MG TAB PO SCH ×2 (07:20→21:15)
[2020-10-04] MEDS: METOPROLOL TARTRATE 25 MG TAB PO SCH ×2 (07:21→21:16)
[2020-10-04] MEDS ORDERED: NON FORMULARY DRUG (Omeprazole 40 MG Capsule.Dr) PO SCH (07:30)
[2020-10-04] MEDS: INSULIN ASPART (NovoLOG) 100 UNIT/ML VIAL SQ SCH ×4 (07:38→21:17)
[2020-10-04 07:48] LABS: Basophils % (A) 1 %; Eosinophils # (A) 0.3 k/uL (0-0.7); Eosinophils % (A) 5 %; HCT 28.6 % (39.0-53.0); HGB 10.5 gm/dL (13.0-17.5); Lymphocytes # (A) 1.2 k/uL (1.0-4.8); Lymphocytes % (A) 22 %; MCH 29.1 pg (25.0-35.0); MCHC 36.8 g/dL (31.0-37.0); MCV 79.2 fL (80.0-100.0); Mean Platelet Volume 8.3; Monocytes # (A) 0.3 k/uL (0-1.0); Monocytes % (A) 6 %; Neutrophils # (A) 3.4 k/uL (1.3-7.7); Neutrophils % (A) 64 %; Platelet Count 214 k/uL (150-450); RBC 3.62 m/uL (4.30-5.90); RDW 14.3 % (11.5-15.5); WBC 5.4 k/uL (3.8-10.6)
[2020-10-04] MEDS: SYMBICORT 80-4.5 MCG INHALER INHALATION SCH ×2 (07:58→19:37)
[2020-10-04] MEDS: GABAPENTIN 400 MG CAP PO SCH ×3 (08:28→21:16)
[2020-10-04] MEDS: PANTOPRAZOLE 40 MG TABLET PO SCH (08:28)
[2020-10-04] MEDS: SODIUM CHLORIDE 0.9% 1,000 ML IV SCH ×2 (08:29→21:16)
[2020-10-04] MEDS: HEPARIN SODIUM,PORCINE 5,000 UNIT/ML 1 ML VIAL SQ SCH ×2 (08:29→21:16)
[2020-10-04] MEDS: DULoxetine HCL 60 MG CAPSULE.DR PO SCH (08:29)
[2020-10-04] MEDS: KETOROLAC 0.5% OPHTH DROPS 5 ML BTL RIGHT EYE SCH ×4 (08:30→21:39)
[2020-10-04] MEDS: prednisoLONE ACETATE 1% OPHTH DROPS 5 ML BTL RIGHT EYE SCH ×4 (08:30→21:39)
[2020-10-04] MEDS: OFLOXACIN 0.3% OPHTH DROPS 5 ML BOTTLE RIGHT EYE SCH ×3 (08:30→21:39)
--- NOTE | 2020-10-04 08:53 | P.CRDCN ---
History of Present Illness Consult date: 10/04/20 Chief complaint: Chest pain History of present illness: This is a 50-year-old gentleman with a past medical history significant for diabetes and hypertension and dyslipidemia and history of heart failure with preserved ejection fraction as well as history of chronic kidney disease and also history of "infective endocarditis" presented to the hospital complaining of chest discomfort. The patient stated that he was in his usual state of healt h until yesterday when he noticed that he started experiencing discomfort over the left upper chest. Initially the chest discomfort was pleuritic in nature and worse with deep breath. Because of that d-dimer was performed and came in to be abnormal and subsequently the patient underwent a VQ scan which showed low priority for PE. Currently the patient is chest pain-free. No shortness of breath or dizziness or lightheadedness or any feeling of heart racing or fluttering or syncope. No fever or chills. The chest x-ray showed no acute abnormalities. The troponin was checked and came in to be unremarkable. Currently the patient is chest pain-free. The last echo revealed normal left ventricular systolic function without any significant valvular abnormalities. Currently the patient's blood pressure has been marginal and with a systolic pressure around 80 mmHg I am going to give the patient a bolus of 200 mm of 0.9 normal saline and continue monitor him. If he continues to be hypotensive I would transfer the patient to the third floor or intensive care unit. He denies any fever or chills. He underwent urinalysis and that showed no evidence of urinary tract infection. Past Medical History Past Medical History: Heart Failure, Diabetes Mellitus, Hyperlipidemia, Hypertension Additional Past Medical History / Comment(s): IDDM type II, neuropathy bilateral feet, gout, right eye catarct removal . History of Any Multi-Drug Resistant Organisms: MRSA Date of last positivie culture/infection: 03/13/20 MDRO Source:: MRSA BACK Past Surgical History: Cholecystectomy Additional Past Surgical History / Comment(s): I&D scrotal abscess, I&D back abscess Past Anesthesia/Blood Transfusion Reactions: No Reported Reaction Past Psychological History: Anxiety Additional Psychological History / Comment(s): He is independent. He works in [employer]. Smoking Status: Former smoker Past Alcohol Use History: Occasional Additional Past Alcohol Use History / Comment(s): Pt started smoking in 1987 and quit 2 weeks ago. Past Drug Use History: None Reported - Past Family History Mother Family Medical History: Diabetes Mellitus Father History Unknown: Yes Medications and Allergies Home Medications Medication Instructions Recorded Confirmed Type Omeprazole [PriLOSEC] 40 mg PO AC-BRKFST #14 capsule. 11/04/19 10/03/20 Rx Nitroglycerin Sl Tabs [Nitrostat] 0.4 mg SUBLINGUAL Q5M PRN #30 tab 11/05/19 10/03/20 Rx Gabapentin 800 mg PO TID 03/31/20 10/03/20 History DULoxetine HCL [Cymbalta] 60 mg PO DAILY 04/01/20 10/03/20 History Acetaminophen Tab [Tylenol] 650 mg PO Q4H PRN 07/25/20 10/03/20 History Albuterol Sulfate [Proair Hfa] 2 puff INHALATION RT-Q6H PRN 07/25/20 10/03/20 History Fluticasone Propion/Salmeterol 1 puff INHALATION RT-BID 07/25/20 10/03/20 History [Wixela 250-50 Inhub] amLODIPine [Norvasc] 5 mg PO BID 07/25/20 10/03/20 History Furosemide [Lasix] 20 mg PO BID #60 tab 07/27/20 10/03/20 Rx Metoprolol Tartrate [Lopressor] 25 mg PO BID #60 tab 07/27/20 10/03/20 Rx Insulin Glargine,Hum.rec.anlog 56 unit SQ HS 10/03/20 10/03/20 History [Wilaglar Adeliapen U-100] Ketorolac 0.5% Ophth Soln [Acular] 1 drops RIGHT EYE QID 10/03/20 10/03/20 History Ofloxacin 0.3% Ophth Soln [Ocuflox 1 drop RIGHT EYE TID 10/03/20 10/03/20 History Ophth Soln] Potassium Chloride ER [K-Dur 20] 20 meq PO BID 10/03/20 10/03/20 History Semaglutide [Ozempic] 1 mg SQ TH 10/03/20 10/03/20 History prednisoLONE ACETATE [Pred Forte 1 drop RIGHT EYE QID 10/03/20 10/03/20 History 1%] traZODone HCL 150 mg PO HS 10/03/20 10/03/20 History Allergies Allergy/AdvReac Type Severity Reaction Status Date / Time No Known Allergies Allergy Verified 10/03/20 13:56 Physical Exam Vitals: Vital Signs Temp Pulse Pulse Pulse Resp BP BP 10/04/20 07:23 82 85 16 76/52 10/04/20 01:17 97.9 F 67 16 148/67 10/03/20 20:00 67 16 10/03/20 16:24 97.6 F 90 16 153/80 10/03/20 15:43 98.1 F 88 18 118/82 10/03/20 14:47 98.1 F 93 16 120/86 10/03/20 13:05 98.2 F 101 H 16 91/63 Pulse Ox 10/04/20 07:23 98 10/04/20 01:17 97 10/03/20 20:00 10/03/20 16:24 100 10/03/20 15:43 98 10/03/20 14:47 99 10/03/20 13:05 100 Intake and Output 10/03/20 10/04/20 10/04/20 22:59 06:59 14:59 Intake Total 50 1100 Balance 50 1100 Intake: Amount of Fluid Infused ( 50 ml) Intake, IV Titration 600 Amount Sodium Chloride 0.9% 1, 600 000 ml @ 50 mls/hr IV . Q20H [facility] Rx#:[id number] Oral 500 Other: Voiding Method Toilet # Voids 2 3 # Bowel Movements 1 Weight 78.471 kg - Constitutional General appearance: no acute distress - Respiratory Respiratory: bilateral: CTA - Cardiovascular Rhythm: regular Heart sounds: normal: S1, S2 Results 10/04/20 07:01 10/03/20 19:27 Cardiac Enzymes 10/03/20 10/03/20 10/03/20 Range/Units 13:32 13:32 16:59 AST 32 (17-59) U/L Troponin I <0.012 <0.012 (0.000-0.034) ng/mL 10/03/20 10/03/20 Range/Units 19:27 19:27 AST 64 H (17-59) U/L Troponin I <0.012 (0.000-0.034) ng/mL Coagulation 10/03/20 Range/Units 13:32 PT 9.9 (9.0-12.0) sec APTT 21.7 L (22.0-30.0) sec CBC 10/03/20 10/04/20 Range/Units 13:32 07:01 WBC 7.0 5.4 (3.8-10.6) k/uL RBC 4.33 3.62 L (4.30-5.90) m/uL Hgb 12.1 L 10.5 L (13.0-17.5) gm/dL Hct 34.1 L 28.6 L (39.0-53.0) % Plt Count 250 214 (150-450) k/uL Comprehensive Metabolic Panel 10/03/20 10/03/20 Range/Units 13:32 19:27 Sodium 132 L 132 L (137-145) mmol/L Potassium 5.1 5.3 (3.5-5.1) mmol/L Chloride 97 L 101 (98-107) mmol/L Carbon Dioxide 23 26.2 (22-30) mmol/L BUN 59 H 58.0 H (9-20) mg/dL Creatinine 2.39 H 2.5 H (0.66-1.25) mg/dL Glucose 329 H 435 H (74-99) mg/dL Calcium 9.4 8.6 L (8.4-10.2) mg/dL AST 32 64 H (17-59) U/L ALT 30 42 (4-49) U/L Alkaline Phosphatase 171 H 216 H (38-126) U/L Total Protein 7.8 6.5 (6.3-8.2) g/dL Albumin 3.8 3.50 L (3.5-5.0) g/dL Current Medications Generic Name Dose Route Start Last Admin Trade Name Freq PRN Reason Stop Dose Admin Acetaminophen 650 mg 10/03/20 14:39 Acetaminophen Tab 325 Mg Tab PO Q6HR PRN Mild Pain or Fever > 100.5 Hydrocodone Bitart/Acetaminophen 1 each 10/03/20 19:13 Hydrocodone/Apap 5-325mg 1 Each Tab PO Q6HR PRN Pain Albuterol Sulfate 2.5 mg 10/03/20 19:11 Albuterol Nebulized 2.5 Mg/3 Ml INHALATION RT-Q6H PRN Shortness Of Breath Alprazolam 0.25 mg 10/03/20 19:13 Alprazolam 0.25 Mg Tab PO TID PRN Anxiety Amlodipine Besylate 5 mg 10/03/20 21:00 10/04/20 07:20 Amlodipine 5 Mg Tab PO Not Given BID LUIZA Budesonide/Formoterol Fumarate 2 puff 10/03/20 20:00 10/04/20 07:58 Symbicort 80-4.5 Mcg Inhaler INHALATION 2 puff RT-BID LUIZA Administration Duloxetine HCl 60 mg 10/04/20 09:00 10/04/20 08:29 Duloxetine Hcl 60 Mg Capsule.Dr PO 60 mg DAILY LUIZA Administration Furosemide 20 mg 10/03/20 21:00 10/04/20 07:20 Furosemide 20 Mg Tab PO Not Given BID@0900,1600 [facility] Gabapentin 800 mg 10/03/20 22:00 10/04/20 08:28 Gabapentin 400 Mg Cap PO 800 mg TID LUZIA Administration Heparin Sodium (Porcine) 5,000 unit 10/03/20 21:00 10/04/20 08:29 Heparin Sodium,Porcine 5,000 Unit/Ml 1 Ml Vial SQ 5,000 unit Q12HR LUIZA Administration Hydromorphone HCl 0.5 mg 10/03/20 14:39 Hydromorphone 0.5 Mg/0.5 Ml Syringe IVP Q3HR PRN Moderate Pain Hydromorphone HCl 1 mg 10/03/20 14:39 Hydromorphone 1 Mg/Ml 1 Ml Syringe IVP Q3HR PRN Severe Pain Sodium Chloride 1,000 mls @ 75 mls/hr 10/04/20 07:30 10/04/20 08:29 Saline 0.9% IV 75 mls/hr .[id number] LUIZA Administration Insulin Aspart 0 unit 10/03/20 21:00 10/04/20 07:38 Insulin Aspart (Novolog) 100 Unit/Ml Vial SQ Not Given ACHS [facility] Protocol Insulin Detemir 56 unit 10/03/20 21:00 10/03/20 22:44 Insulin Detemir (Levemir) 100 Unit/Ml Syr SQ 56 unit HS [facility] Administration Ketorolac Tromethamine 1 drops 10/03/20 22:00 10/04/20 08:30 Ketorolac 0.5% Ophth Drops 5 Ml Btl RIGHT EYE 1 drops QID [facility] Administration Metoprolol Tartrate 25 mg 10/03/20 21:00 10/04/20 07:21 Metoprolol Tartrate 25 Mg Tab PO Not Given BID LUIZA Naloxone HCl 0.2 mg 10/03/20 14:39 Naloxone 0.4 Mg/Ml 1 Ml Vial IV Q2M PRN Opioid Reversal Nitroglycerin 0.4 mg 10/03/20 19:11 Nitroglycerin Sl Tabs 0.4 Mg Tab SUBLINGUAL Q5M PRN Chest Pain Patient's Own ( 1 mg 10/08/20 09:00 Semaglutide [Ozempic SQ ] 1 Mg/0.75 Ml Pen. TH [facility] Injctr) Ofloxacin 1 drops 10/03/20 22:00 10/04/20 08:30 Ofloxacin 0.3% Ophth Drops 5 Ml Bottle RIGHT EYE 1 drops TID LUIZA Administration Pantoprazole Sodium 40 mg 10/04/20 07:30 10/04/20 08:28 Pantoprazole 40 Mg Tablet PO 40 mg AC-BRKFST LUIZA Administration Potassium Chloride 20 meq 10/03/20 21:00 10/04/20 07:07 Potassium Chloride Er 20 Meq Tab.Er PO Not Given BID LUIZA Prednisolone Acetate 1 drops 10/03/20 22:00 10/04/20 08:30 Prednisolone Acetate 1% Ophth Drops 5 Ml Btl RIGHT EYE 1 drops QID LUIZA Administration Trazodone HCl 150 mg 10/03/20 21:00 10/03/20 22:39 Trazodone Hcl 50 Mg Tab PO 150 mg HS LUIZA Administration Intake and Output 10/03/20 10/04/20 10/04/20 22:59 06:59 14:59 Intake Total 50 1100 Balance 50 1100 Intake: Amount of Fluid Infused ( 50 ml) Intake, IV Titration 600 Amount Sodium Chloride 0.9% 1, 600 000 ml @ 50 mls/hr IV . Q20H [facility] Rx#:[id number] Oral 500 Other: Voiding Method Toilet # Voids 2 3 # Bowel Movements 1 Weight 78.471 kg 10/04/20 07:01 10/03/20 19:27 Assessment and Plan Assessment: Assessment #1 atypical chest discomfort #2 chronic kidney disease #3 history of infective endocarditis according to him #4 margin the low blood pressure Plan #1 support the blood pressure with IV fluid #2 acute coronary event was ruled out #3 I will obtain an echocardiogram was Doppler #4 severe CAD to be ruled out with a stress test down the line #5 PT was ruled out #6 follow up with the patient
[2020-10-04] MEDS ORDERED: SODIUM CHLORIDE 0.9% 500 ML 200 ML IV ONE (10:07)
[2020-10-04] MEDS ORDERED: SODIUM CHLORIDE 0.9% 500 ML 500 ML IV ONE (11:38)
[2020-10-04 12:24] LABS: Glucose,Whole Blood 205 mg/dL (75-99)
[2020-10-04] MEDS ORDERED: LOPERAMIDE 2 MG CAP PO PRN (12:39)
[2020-10-04 12:46] LABS: Basophils % (A) 1 %; Eosinophils # (A) 0.2 k/uL (0-0.7); Eosinophils % (A) 4 %; HCT 29.4 % (39.0-53.0); HGB 10.3 gm/dL (13.0-17.5); Lymphocytes % (A) 17 %; MCH 28.7 pg (25.0-35.0); MCHC 35.2 g/dL (31.0-37.0); MCV 81.5 fL (80.0-100.0); Mean Platelet Volume 8.6; Monocytes # (A) 0.4 k/uL (0-1.0); Monocytes % (A) 7 %; Neutrophils # (A) 4.3 k/uL (1.3-7.7); Neutrophils % (A) 71 %; Platelet Count 208 k/uL (150-450); RBC 3.61 m/uL (4.30-5.90); RDW 14.6 % (11.5-15.5); WBC 6.1 k/uL (3.8-10.6)
[2020-10-04 12:48] LABS: African American GFR (CKD) 35.4 (60.0-200.0); Albumin 3.3 g/dL (3.80-4.90); Albumin/Globulin Ratio 1.27 (1.60-3.17); Anion Gap 4.7 mmol/L (4.00-12.00); BUN/Creat Ratio 23.75 Ratio (12.00-20.00); Calcium 8.7 mg/dL (8.7-10.3); Carbon Dioxide 28.3 mmol/L (21.6-31.8); Globulin 2.6 g/dL (1.6-3.3); Magnesium 2.3 mg/dL (1.5-2.4); Non-African American GFR(CKD) 30.5 (60.0-200.0); Potassium 4.6 mmol/L (3.5-5.5); Total Bilirubin 0.2 mg/dL (0.2-1.2); Total Protein 5.9 g/dL (6.2-8.2)
[2020-10-04 17:14] LABS: Glucose,Whole Blood 288 mg/dL (75-99)
--- NOTE | 2020-10-04 17:21 | PN ---
PROGRESS NOTE DATE OF SERVICE: 10/04/2020 This 50-year-old gentleman was admitted with chest pain also had acute renal failure and chronic kidney disease. Patient also had severe multiple bilateral cellulitis. Patient apparently had MRSA infection and subsequently was admitted to [facility] and referred to [facility] because of the suspicion of infective endocarditis. The details are not available. The patient was discharged with IV vancomycin for some time through the PICC line, according to him. There is no history of fever, rigors. No history of chest pain or palpitation. PAST MEDICAL HISTORY: Reviewed. REVIEW OF SYMPTOMS: CARDIOVASCULAR: No angina. RESPIRATORY: As mentioned earlier. GI as mentioned earlier. : No dysuria. NERVOUS SYSTEM: No numbness, weakness. CURRENT MEDICATIONS: Reviewed and include: Tylenol, [place], Ventolin, Xanax, Norvasc, Symbicort, Dilaudid, K- Dur, Desyrel. PHYSICAL EXAM: Patient is alert and oriented times three. Pulse 90, blood pressure 91/60, respirations 16, temperature is normal. Pulse ox 98% on room air. HEENT: Conjunctivae normal. NECK: No JVD. CARDIOVASCULAR: S1, S2. RESPIRATORY SYSTEM: Breath sounds diminished at the bases. No rhonchi. No crackles. ABDOMEN: Soft, nontender. LEGS: No edema. No swelling. NERVOUS SYSTEM: Diffusely weak. SKIN: Multiple areas of cellulitis present. LABS: WBC 6.2, hemoglobin 10.3. ASSESSMENT: 1. Chest pain possible unstable angina. 2. Acute renal failure with prerenal acute tubular necrosis. 3. Chronic kidney disease stage 3. 4. Multiple cellulitis present. 5. History of possibly recent MRSA and as well as infective endocarditis evaluated at [facility]. 6. Hyponatremia. 7. Anemia microcytic. 8. History of congestive heart failure with ejection fraction 50-55 percent with chronic diastolic dysfunction. 9. History of MRSA bacteremia. 10.History of diabetes type 2. 11.Hypertension. 12.Hyperlipidemia. 13.History of bilateral peripheral neuropathy. 14.History of gout. 15.History of cholecystectomy. 16.History of anxiety. 17.Remote history of nicotine dependence. 18.FULL CODE. RECOMMENDATIONS AND DISCUSSION: In this 50-year-old gentleman who presented with multiple complex medical issues, we will monitor the patient closely, continue the current medications, management and symptomatic treatment. Otherwise, I would recommend local cultures and also antibiotic and continue to monitor. Guarded prognosis. Further recommendations to follow. We will obtain the old records at [facility] and as well as [facility] also. See orders for details. MMODL / IJN: [id number] /
[2020-10-04 20:24] LABS: Glucose,Whole Blood 69 mg/dL (75-99)
[2020-10-04] MEDS: traZODone HCL 50 MG TAB PO SCH (21:15)
[2020-10-04] MEDS: INSULIN DETEMIR (LEVEMIR) 100 UNIT/ML SYR SQ SCH (21:16)
--- NOTE | 2020-10-05 00:02 | CONS ---
CONSULTATION DATE OF SERVICE: 10/04/2020. REASON FOR CONSULTATION: 1. Skin lesion. 2. Endocarditis. HISTORY OF PRESENT ILLNESS: The patient is a 50-year-old male admitted to [facility] in June of 2020 in this patient who did have evidence of an MRSA bacteremia. Echocardiogram was suspicious for possible abscess around the cardiac valve for which the patient subsequently was transferred to [facility]. An echocardiogram at that facility did not show any evidence of wall abscess. They thought actually was more likely due to his skin and soft tissue infection. He was given a month of daptomycin which the patient has completed. Cardiology team at [facility] recommended repeat echocardiogram for which the patient was referred back to his host/hostess in [place] which the patient has seen and have recommended against doing another echocardiogram. The patient does follow up with [facility]. He was noticed to have infected wound to the right lower extremity that has been treated with oral doxycycline and patient mentioned has improvement but not completely resolved. The patient now presented to hospital with chest pain for which the patient is being monitored by Cardiology team. He also did have an episode of hypertension, weakness that has prompted this Infectious Disease consultation especially with history of endocarditis. The patient currently denies having any fever or chills. The patient denies having any URI symptoms. No chest pain or shortness of breath or cough. No abdominal pain. He did have a wound on his lower extremity, though that is healing and no worsening or no new lesion has been noticed with no drainage from that. The patient was started on cefazolin. Infectious Disease was consulted for further management of antibiotic therapy. The patient has been afebrile since admitted to the hospital. The patient did have a normal white count. He did have elevated BUN and creatinine. REVIEW OF SYSTEMS: Positive points have been mentioned in HPI. Rest of the systems are negative. PAST MEDICAL HISTORY: Significant for heart failure, diabetes mellitus, hyperlipidemia, hypertension and MRSA bacteremia. PAST SURGICAL HISTORY: Cholecystectomy. SOCIAL HISTORY: Remote history of smoking, occasionally drinks. No drug use. FAMILY HISTORY: Mother history of diabetes mellitus. ALLERGIES: No known drug allergies. MEDICATIONS: The patient is currently on Tylenol, [place], Ventolin, Xanax, Norvasc, Symbicort, Cymbalta, Lasix, Neurontin, heparin, Dilaudid, NovoLog, Levemir, Lopressor, Narcan, Protonix, K-Dur. PHYSICAL EXAMINATION: Blood pressure 114/82 with a pulse of 90, temperature 98.6. He is 100% on room air. General description is a middle-aged male lying in bed in no distress. No tachypnea or accessory muscles of respiration use. HEENT: Examination shows slight pallor. No scleral icterus. Oral mucous membranes dry. No pharyngeal erythema or thrush. NECK: Trachea central. No thyromegaly. LUNGS: Unlabored breathing, clear to auscultation anteriorly. No wheeze or crackles. HEART S1, S2. Regular rate and rhythm. ABDOMEN: Soft, no tenderness. EXTREMITIES: No edema of the feet. Did have some skin lesions with minimal swelling, redness, but no foul-smelling drainage. NEUROLOGICAL: The patient is awake, alert, oriented x3. Mood and affect normal. LABS: Hemoglobin is 10.1, white count 6.1. Creatinine was mildly elevated. Chest x-ray report negative for any acute infiltrate. DIAGNOSTIC IMPRESSION AND PLAN: Patient admitted to the hospital with chest pain, being monitored by cardiology team in this patient who did have a history of MRSA bacteremia with concern for possible endocarditis that was ruled out by the [facility] Cardiology team and the patient has completed his antibiotic therapy. The patient did have skin lesions treated with outpatient therapy with oral doxycycline with improvement but not complete resolution. PLAN: 1. We will obtain blood cultures, CRP and a sedimentation rate. 2. Discontinue cefazolin. 3. Start the patient on 100 twice a day. 4. The patient ,may benefit from an echocardiogram. 5. We will follow up on clinical condition and culture to further adjust medication if needed. Thank you for this consultation. Will follow this patient along with you. MMODL / IJN: [id number] /
[2020-10-05 03:12] LABS: Glucose,Whole Blood 81 mg/dL (75-99)
[2020-10-05 06:19] LABS: Glucose,Whole Blood 63 mg/dL (75-99)
[2020-10-05] MEDS: PANTOPRAZOLE 40 MG TABLET PO SCH (06:22)
[2020-10-05] MEDS: INSULIN ASPART (NovoLOG) 100 UNIT/ML VIAL SQ SCH ×4 (06:22→21:01)
[2020-10-05 06:33] LABS: Glucose,Whole Blood 62 mg/dL (75-99)
[2020-10-05 07:06] LABS: Glucose,Whole Blood 143 mg/dL (75-99)
[2020-10-05 07:59] LABS: Basophils # (A) 0.1 k/uL (0-0.2); Basophils % (A) 1 %; Eosinophils # (A) 0.2 k/uL (0-0.7); Eosinophils % (A) 3 %; HCT 28.8 % (39.0-53.0); HGB 10.2 gm/dL (13.0-17.5); Lymphocytes # (A) 0.9 k/uL (1.0-4.8); Lymphocytes % (A) 15 %; MCH 28.5 pg (25.0-35.0); MCHC 35.3 g/dL (31.0-37.0); MCV 80.8 fL (80.0-100.0); Mean Platelet Volume 8.5; Monocytes # (A) 0.3 k/uL (0-1.0); Monocytes % (A) 5 %; Neutrophils # (A) 4.4 k/uL (1.3-7.7); Neutrophils % (A) 75 %; Platelet Count 219 k/uL (150-450); RBC 3.57 m/uL (4.30-5.90); WBC 5.9 k/uL (3.8-10.6)
[2020-10-05 08:15] LABS: African American GFR (CKD) 46 (>60 ml/min/1.73 sqM); Anion Gap 8 mmol/L; Blood Urea Nitrogen 38 mg/dL (9-20); Calcium 8.3 mg/dL (8.4-10.2); Carbon Dioxide 23 mmol/L (22-30); Chloride 106 mmol/L (98-107); Glucose 138 mg/dL (74-99); Non-African American GFR(CKD) 40 (>60 ml/min/1.73 sqM); Potassium 4.8 mmol/L (3.5-5.1); Sodium 137 mmol/L (137-145)
[2020-10-05] MEDS: SYMBICORT 80-4.5 MCG INHALER INHALATION SCH ×2 (08:15→21:16)
[2020-10-05 09:02] LABS: C Reactive Protein <5.0 mg/L (<10.0)
[2020-10-05] MEDS: FUROSEMIDE 20 MG TAB PO SCH ×2 (09:43→17:53)
[2020-10-05] MEDS: DULoxetine HCL 60 MG CAPSULE.DR PO SCH (09:43)
[2020-10-05] MEDS: DOXYCYCLINE 100 MG CAP PO SCH ×2 (09:43→21:01)
[2020-10-05] MEDS: METOPROLOL TARTRATE 25 MG TAB PO SCH ×2 (09:43→21:00)
[2020-10-05] MEDS: amLODIPine 5 MG TAB PO SCH (09:44)
[2020-10-05] MEDS: prednisoLONE ACETATE 1% OPHTH DROPS 5 ML BTL RIGHT EYE SCH ×4 (09:44→21:11)
[2020-10-05] MEDS: HEPARIN SODIUM,PORCINE 5,000 UNIT/ML 1 ML VIAL SQ SCH ×2 (09:44→21:01)
[2020-10-05] MEDS: KETOROLAC 0.5% OPHTH DROPS 5 ML BTL RIGHT EYE SCH ×4 (09:44→21:11)
[2020-10-05] MEDS: GABAPENTIN 400 MG CAP PO SCH ×3 (09:44→21:00)
[2020-10-05] MEDS: POTASSIUM CHLORIDE ER 20 MEQ TAB.ER PO SCH ×2 (09:45→21:02)
[2020-10-05] MEDS: OFLOXACIN 0.3% OPHTH DROPS 5 ML BOTTLE RIGHT EYE SCH ×3 (09:45→21:11)
--- NOTE | 2020-10-05 10:34 | ECHOF ---
Referral Reason:h/o endocarditis MEASUREMENTS -------- HEIGHT: 170.2 cm WEIGHT: 89.4 kg BP: RVIDd: 2.6 cm (< 3.3) IVSd: 0.9 cm (0.6 - 1.1) LVIDd: 4.7 cm (3.9 - 5.3) LVPWd: 1.4 cm (0.6 - 1.1) IVSs: 1.6 cm LVIDs: 3.1 cm LVPWs: 2.0 cm LA Diam: 3.7 cm (2.7 - 3.8) LAESV Index (A-L): 27.27 ml/m Ao Diam: 2.8 cm (2.0 - 3.7) AV Cusp: 1.9 cm (1.5 - 2.6) LA Diam: 4.4 cm (2.7 - 3.8) MV EXCURSION: 17.007 mm (> 18.000) MV EF SLOPE: 70 mm/s (70 - 150) EPSS: 0.8 cm MV E T[place]anda: 0.57 m/s MV DecT: 258 ms MV A [place]: 0.82 m/s MV E/A Ratio: 0.69 RAP: 5.00 mmHg RVSP: 19.39 mmHg FINDINGS -------- Sinus rhythm. This was a technically good study. LV size, wall thickness and systolic function are normal, with an EF greater than 55%. The left clementina tricular size is normal. The right ventricle is normal in size. Normal LA size by volume 22+/-6 ml/m2. The right atrial size is normal. The aortic valve is trileaflet, and appears structurally normal. No aortic stenosis or regurgitation. There is trace mitral regurgitation. Mild tricuspid regurgitation present. Right ventricular systolic pressure is normal at < 35 mmHg. There is no pulmonic regurgitation present. The aortic root size is normal. There is no pericardial effusion. CONCLUSIONS -------- 1. LV size, wall thickness and systolic function are normal, with an EF greater than 55%. 2. The left ventricular size is normal. 3. The right ventricle is normal in size. 4. Normal LA size by volume 22+/-6 ml/m2. 5. The right atrial size is normal. 6. There is trace mitral regurgitation. 7. Mild tricuspid regurgitation present. 8. The aortic root size is normal. 9. There is no pericardial effusion. MANAGER DESKTOP: Freya Allne RDCS
[2020-10-05 10:52] LABS: Erythrocyte Sedimentation Rate 64 mm/hr (0-15)
--- NOTE | 2020-10-05 11:27 | P.PN ---
Subjective This is a pleasant 50-year-old male past medical history significant for diabetes mellitus, hypertension, dyslipidemia, chronic diastolic heart failure and chronic kidney disease. 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 He is seen and examined sitting up in bed in no acute distress. He denies any further chest pain, no shortness of breath, dizziness or palpitations. Blood pressure 98/60 heart rate 85 afebrile and maintaining oxygen saturation room air. Echocardiogram obtained reveals preserved LV systolic function with EF greater than 55%. Laboratory data reviewed, WBC 5.9, hgb 10.2, plt 219, sodium 137, potassium 4.8, creatinine 1.92, ESR 64 and CRP less than 5. Currently maintained on amlodipine 5 mg BID, lasix 20 mg BID, lopressor 25 mg BID. GENERAL: Well-appearing, well-nourished and in no acute distress. NECK: Supple without JVD or thyromegaly. LUNGS: Breath sounds clear to auscultation bilaterally. Respiration equal and unlabored. No wheezes, rales or rhonchi. HEART: Regular rate and rhythm without murmurs, rubs or gallops. S1 and S2 heard. EXTREMITIES: Normal range of motion, no edema. No clubbing or cyanosis. Peripheral pulses intact. ASSESSMENT chest pain, pleuritic. An acute coronary event has been ruled out. Questionable history of endocarditis 07/2020. Further work-up at determined there was no endocarditis or abscess Diabetes mellitus Hypertension Dyslipidemia Chronic kidney disease Chronic diastolic heart failure, clinically euvolemic PLAN Echocardiogram reviewed, no evidence of endocarditis or valve abnormality. Initiate atorvastatin 40 mg daily due to his history of diabetes mellitus. No further cardiac work-up at this time. We will follow along as needed, follow up upon discharge with Dr. Dickson. Nurse Practitioner note has been reviewed, I agree with a documented findings and plan of care. Patient was seen and examined. Objective - Vital Signs Vital signs: Vital Signs Temp 98.1 F 10/05/20 04:00 Pulse 85 10/05/20 04:00 Resp 17 10/05/20 04:00 BP 98/60 10/05/20 04:00 Pulse Ox 99 10/05/20 04:00 Intake & Output 10/04/20 10/05/20 10/05/20 18:59 06:59 18:59 Intake Total 540 Output Total 550 Balance 540 -550 Weight 78.471 kg 89.5 kg Intake: Oral 540 Output: Urine 550 Other: Voiding Method Toilet Toilet # Voids 2 1 # Bowel Movements 4 1 - Labs CBC & Chem 7: 10/05/20 07:33 10/05/20 07:33 Labs: Abnormal Lab Results - Last 24 Hours (Table) 10/04/20 10/04/20 10/04/20 Range/Units 07:01 12:22 12:40 RBC 3.61 L (4.30-5.90) m/uL Hgb 10.3 L (13.0-17.5) gm/dL Hct 29.4 L (39.0-53.0) % Lymphocytes # (1.0-4.8) k/uL ESR (0-15) mm/hr BUN 57.0 H (9.0-27.0) mg/dL Creatinine 2.4 H (0.6-1.5) mg/dL Est GFR (CKD-EPI)AfAm 35.4 L (60.0-200.0) Est GFR (CKD-EPI)NonAf 30.5 L (60.0-200.0) BUN/Creatinine Ratio 23.75 H (12.00-20.00) Ratio Glucose (74-99) mg/dL POC Glucose (mg/dL) 205 H (75-99) mg/dL Calcium (8.4-10.2) mg/dL Alkaline Phosphatase 184 H (41-126) U/L Total Protein 5.9 L (6.2-8.2) g/dL Albumin 3.30 L (3.80-4.90) g/dL Albumin/Globulin Ratio 1.27 L (1.60-3.17) g/dL 10/04/20 10/04/20 10/05/20 Range/Units 17:03 20:24 06:18 RBC (4.30-5.90) m/uL Hgb (13.0-17.5) gm/dL Hct (39.0-53.0) % Lymphocytes # (1.0-4.8) k/uL ESR (0-15) mm/hr BUN (9.0-27.0) mg/dL Creatinine (0.6-1.5) mg/dL Est GFR (CKD-EPI)AfAm (60.0-200.0) Est GFR (CKD-EPI)NonAf (60.0-200.0) BUN/Creatinine Ratio (12.00-20.00) Ratio Glucose (74-99) mg/dL POC Glucose (mg/dL) 288 H 69 L 63 L (75-99) mg/dL Calcium (8.4-10.2) mg/dL Alkaline Phosphatase (41-126) U/L Total Protein (6.2-8.2) g/dL Albumin (3.80-4.90) g/dL Albumin/Globulin Ratio (1.60-3.17) g/dL 10/05/20 10/05/20 10/05/20 Range/Units 06:31 06:53 07:33 RBC (4.30-5.90) m/uL Hgb (13.0-17.5) gm/dL Hct (39.0-53.0) % Lymphocytes # (1.0-4.8) k/uL ESR (0-15) mm/hr BUN 38 H (9.0-27.0) mg/dL Creatinine 1.92 H (0.6-1.5) mg/dL Est GFR (CKD-EPI)AfAm (60.0-200.0) Est GFR (CKD-EPI)NonAf (60.0-200.0) BUN/Creatinine Ratio (12.00-20.00) Ratio Glucose 138 H (74-99) mg/dL POC Glucose (mg/dL) 62 L 143 H (75-99) mg/dL Calcium 8.3 L (8.4-10.2) mg/dL Alkaline Phosphatase (41-126) U/L Total Protein (6.2-8.2) g/dL Albumin (3.80-4.90) g/dL Albumin/Globulin Ratio (1.60-3.17) g/dL 10/05/20 Range/Units 07:33 RBC 3.57 L (4.30-5.90) m/uL Hgb 10.2 L (13.0-17.5) gm/dL Hct 28.8 L (39.0-53.0) % Lymphocytes # 0.9 L (1.0-4.8) k/uL ESR 64 H (0-15) mm/hr BUN (9.0-27.0) mg/dL Creatinine (0.6-1.5) mg/dL Est GFR (CKD-EPI)AfAm (60.0-200.0) Est GFR (CKD-EPI)NonAf (60.0-200.0) BUN/Creatinine Ratio (12.00-20.00) Ratio Glucose (74-99) mg/dL POC Glucose (mg/dL) (75-99) mg/dL Calcium (8.4-10.2) mg/dL Alkaline Phosphatase (41-126) U/L Total Protein (6.2-8.2) g/dL Albumin (3.80-4.90) g/dL Albumin/Globulin Ratio (1.60-3.17) g/dL Microbiology - Last 24 Hours (Table) 10/04/20 17:32 Gram Stain - Preliminary Knee - Right Wound Culture - Preliminary
[2020-10-05 11:41] LABS: Glucose,Whole Blood 256 mg/dL (75-99)
[2020-10-05] MEDS: ATORVASTATIN 40 MG TAB PO SCH (12:31)
--- NOTE | 2020-10-05 13:13 | CT ---
EXAMINATION TYPE: CT brain wo con DATE OF EXAM: 10/05/2020 COMPARISON: None. HISTORY: Weakness CT DLP: 1052.4 mGycm. Automated Exposure Control for Dose Reduction was Utilized. TECHNIQUE: CT scan of the head is performed without contrast. FINDINGS: There is no acute intracranial hemorrhage, mass effect, or midline shift identified. The ventricles and sulci are within normal limits in size. Elmore-white matter differentiation fairly well -maintained. The globes are intact and the visualized sinuses are clear. IMPRESSION: No acute intracranial hemorrhage or midline shift is seen.
--- NOTE | 2020-10-05 16:10 | PN ---
PROGRESS NOTE DATE OF SERVICE: 10/05/2020 HISTORY OF PRESENT ILLNESS: This 50-year-old gentleman who was admitted with chest pain also had renal failure and acute on chronic kidney disease as well. The patient also had multiple cellulitis especially on the right upper and lower limbs. 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 Currently the patient is complaining of some chest pain. The patient also had some hypotension and the patient had been closely monitored at this time. Lab colbert, the white count is normal at 5.9, hemoglobin 10.2. The patient had elevated ESR at 64 and CRP was less than 5. Creatinine is 1.92, which is an improvement from the previous labs. The albumin was 3.3. The COVID-19 was negative. PAST MEDICAL HISTORY: Reviewed. REVIEW OF SYSTEMS: CARDIOVASCULAR SYSTEM: As mentioned earlier. RESPIRATORY SYSTEM: As mentioned earlier. GI: As mentioned earlier. : No dysuria. NERVOUS SYSTEM: No numbness or weakness. CURRENT MEDICATIONS: Current medications are reviewed and include Tylenol, [place], Xanax, Lipitor, Symbicort, doxycycline, Cymbalta, Lasix, Neurontin, heparin, NovoLog, Levemir, Acular, Nitro, Protonix. PHYSICAL EXAMINATION: Patient is alert and oriented x3. Pulse is 92, blood pressure 120/61, respirations 16, temperature 97.5, pulse ox 99% on room air. HEENT: Conjunctivae normal. NECK: No jugular venous distention. CARDIOVASCULAR: S1, S2 muffled. RESPIRATORY: Breath sounds diminished at the bases. Scattered rhonchi and crackles. ABDOMEN: Soft, nontender. LEGS: Significant ulceration present. NERVOUS SYSTEM: No focal deficits. LABS: Creatinine is 1.92, hemoglobin 10.2. ASSESSMENT: 1. Chest pain possible unstable angina. 2. Acute renal failure with prerenal acute tubular necrosis. 3. Chronic kidney disease stage 3, baseline. 4. 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 5. Multiple cellulitis on the right side, upper and lower limbs. 6. Hyponatremia. 7. Anemia microcytic. 8. Relative hypotension. 9. History of congestive heart failure, ejection fraction 50% to 55% with chronic diastolic dysfunction. 10.History of MRSA bacteremia. 11.History of diabetes mellitus type 2. 12.Hypertension. 13.Hyperlipidemia. 14.History of bilateral peripheral neuropathy. 15.History of gout. 16.History of cholecystectomy. 17.History of anxiety. 18.Remote history of nicotine dependence. 19.FULL CODE. RECOMMENDATIONS AND DISCUSSION: Recommend to continue current medications, continue with monitoring and symptomatic treatment. Continue with antibiotics. Patient is on doxycycline per Dr. Milligan for the superficial infections. Blood cultures are pending at this time. Otherwise, we will continue to monitor. The patient had relative hypotension. The exact etiology is not known at this time. I would also recommend a D-dimer and if it is positive, I would also recommend DVT scan as well. Prognosis guarded. Further recommendations to follow. MMODL / IJN: [id number] /
[2020-10-05 16:45] LABS: Glucose,Whole Blood 155 mg/dL (75-99)
[2020-10-05] MEDS: SODIUM CHLORIDE 0.9% 1,000 ML IV SCH (17:55)
[2020-10-05 20:34] LABS: Glucose,Whole Blood 226 mg/dL (75-99)
[2020-10-05] MEDS: traZODone HCL 50 MG TAB PO SCH (20:59)
[2020-10-05] MEDS: INSULIN DETEMIR (LEVEMIR) 100 UNIT/ML SYR SQ SCH (21:01)
--- NOTE | 2020-10-05 22:00 | PN ---
PROGRESS NOTE DATE OF SERVICE: 10/05/2020 REASON FOR FOLLOW UP: Multiple skin lesions with MRSA infection. INTERVAL HISTORY: Patient is currently afebrile, has been breathing comfortably. Denies having any chest pain. No shortness of breath or cough. No abdominal pain or diarrhea. Denies any worsening lesions to the lower extremity. PHYSICAL EXAMINATION: Blood pressure 137/72 with a pulse of 94, temperature of 98.7. He is 97% on room air. General description is a middle-aged male up in the bed in no distress. Respiratory system: Unlabored breathing with decreased breath sounds in the bases. No wheeze. Heart S1, S2. Regular rate and rhythm. ABDOMEN: Soft, no tenderness. Legs have multiple lesions but minimal redness. No drainage. LABS: Hemoglobin is 10.3, white count 5.9, BUN of 30, creatinine 1.92. Culture from the showing presumptive MRSA. Blood culture so far pending. Echocardiogram did not show any vegetation. DIAGNOSTIC IMPRESSION AND PLAN: Patient with multiple skin lesions with MRSA infection. The patient did have borderline kidney function. Covered with doxycycline, to continue. Will wait for the blood culture to finalize and monitor clinical course closely. Continue with doxycycline. MMODL / IJN: [id number] /
[2020-10-06 06:02] LABS: Glucose,Whole Blood 134 mg/dL (75-99)
[2020-10-06] MEDS: INSULIN ASPART (NovoLOG) 100 UNIT/ML VIAL SQ SCH ×4 (06:19→20:56)
[2020-10-06] MEDS: PANTOPRAZOLE 40 MG TABLET PO SCH (06:33)
[2020-10-06] MEDS: FUROSEMIDE 20 MG TAB PO SCH ×2 (08:44→15:07)
[2020-10-06] MEDS: ATORVASTATIN 40 MG TAB PO SCH (08:44)
[2020-10-06] MEDS: DULoxetine HCL 60 MG CAPSULE.DR PO SCH (08:44)
[2020-10-06] MEDS: GABAPENTIN 400 MG CAP PO SCH ×3 (08:44→22:11)
[2020-10-06] MEDS: DOXYCYCLINE 100 MG CAP PO SCH ×2 (08:44→20:53)
[2020-10-06] MEDS: HEPARIN SODIUM,PORCINE 5,000 UNIT/ML 1 ML VIAL SQ SCH ×2 (08:44→20:53)
[2020-10-06] MEDS: POTASSIUM CHLORIDE ER 20 MEQ TAB.ER PO SCH ×2 (08:44→20:52)
[2020-10-06] MEDS: METOPROLOL TARTRATE 25 MG TAB PO SCH ×2 (08:44→20:53)
[2020-10-06] MEDS: prednisoLONE ACETATE 1% OPHTH DROPS 5 ML BTL RIGHT EYE SCH ×4 (08:45→22:11)
[2020-10-06] MEDS: KETOROLAC 0.5% OPHTH DROPS 5 ML BTL RIGHT EYE SCH ×4 (08:45→22:11)
[2020-10-06] MEDS: OFLOXACIN 0.3% OPHTH DROPS 5 ML BOTTLE RIGHT EYE SCH ×3 (08:45→22:12)
[2020-10-06] MEDS: SODIUM CHLORIDE 0.9% 1,000 ML IV SCH ×2 (09:01→15:10)
[2020-10-06 09:03] LABS: Basophils # (A) 0.1 k/uL (0-0.2); Basophils % (A) 1 %; Eosinophils # (A) 0.3 k/uL (0-0.7); Eosinophils % (A) 6 %; HCT 30.6 % (39.0-53.0); HGB 10.3 gm/dL (13.0-17.5); Lymphocytes # (A) 1.4 k/uL (1.0-4.8); Lymphocytes % (A) 26 %; MCH 27.4 pg (25.0-35.0); MCHC 33.5 g/dL (31.0-37.0); MCV 81.7 fL (80.0-100.0); Mean Platelet Volume 8.8; Monocytes # (A) 0.3 k/uL (0-1.0); Monocytes % (A) 6 %; Neutrophils # (A) 3.2 k/uL (1.3-7.7); Neutrophils % (A) 59 %; Platelet Count 223 k/uL (150-450); RBC 3.75 m/uL (4.30-5.90); RDW 14.4 % (11.5-15.5); WBC 5.5 k/uL (3.8-10.6)
[2020-10-06 09:16] LABS: Calcium 8.8 mg/dL (8.4-10.2); Potassium 4.7 mmol/L (3.5-5.1)
[2020-10-06] MEDS: SYMBICORT 80-4.5 MCG INHALER INHALATION SCH ×2 (09:38→20:31)
[2020-10-06 11:56] LABS: Glucose,Whole Blood 118 mg/dL (75-99)
--- NOTE | 2020-10-06 13:25 | PN ---
PROGRESS NOTE DATE OF SERVICE: 10/06/2020 REASON FOR FOLLOWUP: Lower extremity wound and secondary infection with MRSA. INTERVAL HISTORY: The patient is currently afebrile, has been breathing comfortably. Did mention complaining of feeling weak, especially when he gets up. No chest pain though. No abdominal pain. No new skin lesion or any pain or swelling associated with it. No drainage. PHYSICAL EXAMINATION: Blood pressure 121/70 with a pulse of 84, temperature 97.9. He is 98% on room air. General description is a middle-aged male lying in bed in no distress. RESPIRATORY SYSTEM: Unlabored breathing, clear to auscultation anteriorly. HEART: S1, S2. Regular rate and rhythm. ABDOMEN: Soft, no tenderness. Right leg did have a small wound superficial with no swelling, no redness, no drainage. LABS: Hemoglobin is 10.3, white count of 5.5, BUN of 25, creatinine 1.71. Blood culture has been negative. DIAGNOSTIC IMPRESSION AND PLAN: Patient with multiple wound to the lower extremities with possible secondary cellulitis covered with doxycycline to continue. Blood culture has been negative. Echo did not show any abnormality to the wall, especially vegetation. Continue supportive care. MMODL / IJN: [id number] /
--- NOTE | 2020-10-06 14:16 | CT ---
EXAMINATION TYPE: CT brain wo con DATE OF EXAM: 10/06/2020 COMPARISON: 10/05/2020 INDICATION: Weakness DLP: 1099.4 mGycm, Automated exposure control for dose reduction was used. CONTRAST: None CT of the brain is performed utilizing 3 mm thick sections through the posterior fossa and 3 mm thick sections through the remaining calvarium. Study is performed within 24 hours of arrival to the hosp [facility]. No abnormal hyperdensity is present to suggest an acute intracranial hemorrhage. No mass lesion is evident. No acute infarcts are evident. Ventricles and sulci are appropriate for the patient age. Paranasal sinuses and mastoid air cells within the [id number] are clear. IMPRESSIONS: 1. No Acute intracranial process.
[2020-10-06] MEDS: IOPAMIDOL CONTRAST (ORAL USE) VIAL PO PRN ×2 (15:07→16:28)
--- NOTE | 2020-10-06 16:03 | PN ---
PROGRESS NOTE DATE OF SERVICE: 10/06/2020 This 50-year-old gentleman who was admitted with chest pain also had acute renal failure. The patient also had chronic kidney disease. Patient also had history of recent endocarditis, had to rule out abscess. Patient will be completing the antibiotic treatment. The patient also had MRSA grown from the skin infected site. Last night, the patient had problems with the legs with some weakness and the patient being closely monitored at this time. There is no history of fever or rigors. No history of headache, loss of consciousness or seizures. Patient not feeling well. A 2D echo with Doppler which was done on 10/05/2020 read by Cardiology did not show acute abnormality. Aortic root size was normal. PAST MEDICAL HISTORY: Reviewed. REVIEW OF SYSTEMS: CARDIOVASCULAR SYSTEM: As mentioned earlier. RESPIRATORY SYSTEM: As mentioned earlier. GI: As mentioned earlier. : No dysuria. NERVOUS SYSTEM: No numbness or weakness. CURRENT MEDICATIONS: Current medications are reviewed and include Tylenol, [place], Ventolin, Xanax, Lipitor, Symbicort b.i.d. Vibramycin, Cymbalta, Lasix, Neurontin, heparin, Imodium, Lopressor. Doses are reviewed. PHYSICAL EXAMINATION: The patient is alert and oriented x3. Pulse 84, blood pressure 121/70, respiration 18, temperature 97.9, pulse ox 98% on room air. HEENT: Conjunctivae normal. NECK: No jugular venous distention. CARDIOVASCULAR: S1, S2 muffled. RESPIRATORY: Breath sounds diminished at the bases. A few scattered rhonchi and crackles. ABDOMEN: Soft, nontender. LEGS: No edema. No swelling NERVOUS SYSTEM: Diffusely weak. LAB STUDIES: Hemoglobin 10.3 otherwise creatinine is 1.71. Accu-Cheks noted. Glucose 65. ASSESSMENT: 1. Chest pain possible unstable angina, present on admission. 2. Weakness of the legs, rule out transient ischemic attack. 3. Acute renal failure with prerenal acute tubular necrosis. 4. Chronic kidney disease, stage 3, baseline. 5. 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 treated with daptomycin for 4 weeks from [facility]. 6. Multiple cellulitis on the right side, upper and lower limbs, possibly from MRSA. 7. Hyponatremia. 8. Anemia, microcytic. 9. Relative hypotension. 10.History of congestive heart failure, ejection fraction 50% to 55% with chronic diastolic dysfunction. 11.History of MRSA bacteremia previously. 12.History of diabetes mellitus type 2. 13.Hypertension. 14.Hyperlipidemia. 15.History of bilateral peripheral neuropathy. 16.History of gout. 17.History of cholecystectomy. 18.History of anxiety. 19.Remote history of nicotine dependence. 20.FULL CODE. RECOMMENDATIONS AND DISCUSSION: Recommend to continue current medications, continue symptomatic treatment and continue the antibiotics. Infectious Disease is following the patient closely. Recommend repeat labs in the morning. Otherwise, I would also recommend a CT scan of the chest, abdomen and pelvis to complete the workup also. Otherwise, the CT scan of the brain. Neurology consultation. Guarded prognosis. Further recommendations to follow. MMODL / IJN: [id number] / MTDD
[2020-10-06 16:51] LABS: Glucose,Whole Blood 205 mg/dL (75-99)
--- NOTE | 2020-10-06 19:18 | CT ---
EXAMINATION TYPE: CT ChestAbdPelvis wo con DATE OF EXAM: 10/06/2020 COMPARISON: CT abdomen and chest 05/19/2020 and 07/25/2020 HISTORY: Endocarditis CT DLP: 699 mGycm Automated exposure control for dose reduction was used. Images obtained from the thoracic inlet to the floor the pelvis with oral contrast only.. The lungs are clear of consolidation. There is no evidence of a pulmonary mass. There is no pleural e ffusion. There is no pericardial effusion. Heart size is fairly normal. There are no hilar masses. Th ere is no mediastinal adenopathy. There are a few small paratracheal lymph nodes up to 1 cm. There is contrast in the stomach. Liver and spleen are intact. There are clips from cholecystectomy. There is no pancreatic mass. There is no adrenal mass. The bile ducts are not dilated. Kidneys have normal size. There is mild per inephric fat stranding unchanged compared to old exam. There is no hydronephrosis. Ureters are not di lated. There is no retroperitoneal adenopathy. There is normal contrast opacification of the small prema wel. There is no mesenteric edema. There is no ascites or free air. There is no bowel obstruction. Ap pendix is partly filled with air and posterior and appears normal. Bladder distends smoothly. There is no inguinal hernia. There is no free fluid in the pelvis. There i s no sign of a pelvic mass. The lumbar and thoracic vertebra have normal spacing and alignment. There is no compression fracture. Sternum is intact. The bony pelvis is intact. Hip joints are intact. The ribs appear intact. IMPRESSION: Negative CT scan of the chest abdomen pelvis. There is clearing of the bilateral pleural effusions co mpared to old exam. There is clearing of the small pericardial effusion.
[2020-10-06 20:13] LABS: Glucose,Whole Blood 266 mg/dL (75-99)
[2020-10-06] MEDS: traZODone HCL 50 MG TAB PO SCH (20:55)
[2020-10-06] MEDS: INSULIN DETEMIR (LEVEMIR) 100 UNIT/ML SYR SQ SCH (20:56)
[2020-10-07 00:45] LABS: Glucose,Whole Blood 100 mg/dL (75-99)
[2020-10-07 02:52] LABS: Glucose,Whole Blood 57 mg/dL (75-99)
[2020-10-07 03:09] LABS: Glucose,Whole Blood 82 mg/dL (75-99)
[2020-10-07 06:19] LABS: Glucose,Whole Blood 114 mg/dL (75-99)
[2020-10-07] MEDS: INSULIN ASPART (NovoLOG) 100 UNIT/ML VIAL SQ SCH ×4 (06:39→22:15)
[2020-10-07] MEDS: SODIUM CHLORIDE 0.9% 1,000 ML IV SCH ×2 (06:41→16:49)
[2020-10-07] MEDS: PANTOPRAZOLE 40 MG TABLET PO SCH (06:41)
[2020-10-07] MEDS: SYMBICORT 80-4.5 MCG INHALER INHALATION SCH ×2 (08:05→19:02)
[2020-10-07 08:14] LABS: Basophils # (A) 0.1 k/uL (0-0.2); Basophils % (A) 1 %; Eosinophils # (A) 0.3 k/uL (0-0.7); Eosinophils % (A) 5 %; HCT 28.8 % (39.0-53.0); HGB 9.9 gm/dL (13.0-17.5); Lymphocytes # (A) 1.3 k/uL (1.0-4.8); Lymphocytes % (A) 20 %; MCHC 34.2 g/dL (31.0-37.0); MCV 81.9 fL (80.0-100.0); Mean Platelet Volume 8.5; Monocytes # (A) 0.4 k/uL (0-1.0); Monocytes % (A) 6 %; Neutrophils # (A) 4.2 k/uL (1.3-7.7); Neutrophils % (A) 66 %; Platelet Count 200 k/uL (150-450); Poikilocytosis Slight; RBC 3.51 m/uL (4.30-5.90); RDW 15.9 % (11.5-15.5); WBC 6.3 k/uL (3.8-10.6)
[2020-10-07] MEDS: POTASSIUM CHLORIDE ER 20 MEQ TAB.ER PO SCH ×2 (08:39→22:19)
[2020-10-07] MEDS: METOPROLOL TARTRATE 25 MG TAB PO SCH ×2 (08:39→22:17)
[2020-10-07] MEDS: KETOROLAC 0.5% OPHTH DROPS 5 ML BTL RIGHT EYE SCH ×4 (08:39→22:55)
[2020-10-07] MEDS: DULoxetine HCL 60 MG CAPSULE.DR PO SCH (08:39)
[2020-10-07] MEDS: GABAPENTIN 400 MG CAP PO SCH ×3 (08:39→22:16)
[2020-10-07] MEDS: prednisoLONE ACETATE 1% OPHTH DROPS 5 ML BTL RIGHT EYE SCH ×4 (08:39→22:56)
[2020-10-07] MEDS: FUROSEMIDE 20 MG TAB PO SCH ×2 (08:39→15:25)
[2020-10-07] MEDS: DOXYCYCLINE 100 MG CAP PO SCH ×2 (08:39→22:14)
[2020-10-07] MEDS: ATORVASTATIN 40 MG TAB PO SCH (08:39)
[2020-10-07] MEDS: OFLOXACIN 0.3% OPHTH DROPS 5 ML BOTTLE RIGHT EYE SCH ×3 (08:40→22:56)
[2020-10-07] MEDS: HEPARIN SODIUM,PORCINE 5,000 UNIT/ML 1 ML VIAL SQ SCH ×2 (08:40→22:10)
--- NOTE | 2020-10-07 10:08 | P.CNNES ---
History of Present Illness Consult date: 10/07/20 Requesting physician: Niko Coffey Reason for Consult: weakness History of Present Illness: This is a 50-year-old gentleman with history of uncontrolled diabetes who is insulin dependent (diabetes for >20 years), diabetic peripheral neuropathy hypertension, hyperlipidemia, heart failure preserved ejection fraction and ch ronic kidney disease as well as history of endocarditis that presented to the emergency department with chest discomfort of left upper quadrant. As well as the patient was having the pain with inspiration. Neurologist consulted because of the patient's generalized weaknes. During the hospital stay his initial blood pressure was 153/80 but the next day his blood pressure systolic was in the 70s to 90s and diastolic was in the 40s to 50s. His blood pressure improved and that he has not had any further hypertensive episodes but according to the nurse his blood pressure continues to fluctuates. During overnight from 10/05/20 till 10/06/20, patient had an episode where he was sitting and then he tried and he attempted walking and he felt his whole body was weak, he said his legs gave out but he didn't fall. He didn't lose consciousness, denied urinary or bowel incontinence or tongue bite. He said his whole body was weak and his legs gave out and he felt lightheaded during the episode as well as that he had the blurry vision episode lasted for couple minutes according to him. He said that he's been having that's for at least 6 more and happens at random times and he can be sitting down or he can be going from sitting to standing and he feels lightheaded dizzy. Again he denies loss of consciousness with these episodes. He said that at home he does not check his sugars. He also had an episode of glucose of 65 on 10/06/2020 serum in the morning in our facility. Patient denies history of seizure in the past. He denies any focal weakness, numbness, visual disturbance or difficulty getting his words out at this time. Workup in the hospital consisted of: Patient orthostatic on 10/06/2020 at around 17:57 is supine is 140/62 with a heart rate of 87 sitting is 141/68 with a heart rate of 88 and standing is a 130/69 with a heart rate of 87. Therefore this is negative for orthostatic hypotension. CT of the head on 10/05/2020 is reported as no acute intracranial hemorrhage or midline shift is seen. Patient had another CT of the head on 10/06/2020 for weakness and was reported as no acute intracranial process. EKG is reported as normal sinus rhythm. Normal EKG. 2-D echo was reported as left ventricular size is normal as well as the wall thickness is normal. Ejection fraction of 55%. Normal left atrial size. In the hospital the patient does not have any leukocytosis. He does have anemia initially hemoglobin of 512.1 and the latest is 9.9 initial MCV 78.8 but that recent is 81.9. ESR is 64. On initial presentation the patient sodium is 132 and the most recent is 139. On initial presentation the creatinine was 2.39 and the most recent is 1.71. His glucose has been peripheral ranging from 65-435. He had an episode of 65 on 10/06/2020 and that blood was drawn around 8:38am and it is serum glucose. TSH is 1.23 which is considered normal. AST is 32 and ALT is 30. Urinary analysis is negative for urinary tract infection Coronavirus PCR: Negative. Upon reviewing the hemoglobin A1c and the patient's record there is improvement was as high as 16.2 and 2017 and then the repeated after 6 month in 2017 and went down to 11.9 but it continues to be elevated the last one is an May 2020 and that's 9.6 Review of Systems Review of system: The 12 point system was reviewed and apparent positive and negative per HPI. Past Medical History Past Medical History: Heart Failure, Diabetes Mellitus, Hyperlipidemia, Hypertension Additional Past Medical History / Comment(s): IDDM type II, neuropathy bilateral feet, gout, right eye catarct removal . History of Any Multi-Drug Resistant Organisms: MRSA Date of last positivie culture/infection: 03/13/20 MDRO Source:: MRSA BACK Past Surgical History: Cholecystectomy Additional Past Surgical History / Comment(s): I&D scrotal abscess, I&D back abscess Past Anesthesia/Blood Transfusion Reactions: No Reported Reaction Past Psychological History: Anxiety Additional Psychological History / Comment(s): He is independent. He works in [employer]. Smoking Status: Former smoker Past Alcohol Use History: Occasional Additional Past Alcohol Use History / Comment(s): Pt started smoking in 1987 and quit 2 weeks ago. Past Drug Use History: None Reported - Past Family History Mother Family Medical History: Diabetes Mellitus Father History Unknown: Yes Medications and Allergies Home Medications Medication Instructions Recorded Confirmed Type Omeprazole [PriLOSEC] 40 mg PO LUPILLO-BRKFST #14 amparo. 11/04/19 10/03/20 Rx Nitroglycerin Sl Tabs [Nitrostat] 0.4 mg SUBLINGUAL Q5M PRN #30 tab 11/05/19 10/03/20 Rx Gabapentin 800 mg PO TID 03/31/20 10/03/20 History DULoxetine HCL [Cymbalta] 60 mg PO DAILY 04/01/20 10/03/20 History Acetaminophen Tab [Tylenol] 650 mg PO Q4H PRN 07/25/20 10/03/20 History Albuterol Sulfate [Proair Hfa] 2 puff INHALATION RT-Q6H PRN 07/25/20 10/03/20 History Fluticasone Propion/Salmeterol 1 puff INHALATION RT-BID 07/25/20 10/03/20 History [Wixela 250-50 Inhub] amLODIPine [Norvasc] 5 mg PO BID 07/25/20 10/03/20 History Furosemide [Lasix] 20 mg PO BID #60 tab 07/27/20 10/03/20 Rx Metoprolol Tartrate [Lopressor] 25 mg PO BID #60 tab 07/27/20 10/03/20 Rx Insulin Glargine,Hum.rec.anlog 56 unit SQ HS 10/03/20 10/03/20 History [Basaglar Kwikpen U-100] Ketorolac 0.5% Ophth Soln [Acular] 1 drops RIGHT EYE QID 10/03/20 10/03/20 History Ofloxacin 0.3% Ophth Soln [Ocuflox 1 drop RIGHT EYE TID 10/03/20 10/03/20 History Ophth Soln] Potassium Chloride ER [K-Dur 20] 20 meq PO BID 10/03/20 10/03/20 History Semaglutide [Ozempic] 1 mg SQ TH 10/03/20 10/03/20 History prednisoLONE ACETATE [Pred Forte 1 drop RIGHT EYE QID 10/03/20 10/03/20 History 1%] traZODone HCL 150 mg PO HS 10/03/20 10/03/20 History Allergies Allergy/AdvReac Type Severity Reaction Status Date / Time No Known Allergies Allergy Verified 10/03/20 13:56 Physical Examination - Vital Signs Vital Signs: Vital Signs Temp Pulse Pulse Pulse Pulse Pulse Resp 10/07/20 03:05 97.9 F 94 18 10/07/20 00:15 98.7 F 93 18 10/06/20 20:35 98.1 F 89 17 10/06/20 17:58 88 87 87 10/06/20 17:57 10/06/20 15:11 97.7 F 83 18 10/06/20 13:33 89 18 10/06/20 12:00 97.9 F 84 18 10/06/20 08:41 97.9 F 86 16 BP BP BP BP Pulse Ox 10/07/20 03:05 154/84 99 10/07/20 00:15 124/60 99 10/06/20 20:35 114/66 100 10/06/20 17:58 10/06/20 17:57 141/68 138/69 140/63 10/06/20 15:11 143/72 99 10/06/20 13:33 10/06/20 12:00 121/70 98 10/06/20 08:41 118/62 99 Intake and Output 10/06/20 10/07/20 10/07/20 22:59 06:59 14:59 Intake Total 960 Balance 960 Intake: Oral 960 Other: Voiding Method Toilet Toilet Urinal # Voids 2 2 Weight 87.5 kg GENERAL: The patient is lying in bed and is not in acute distress. CHEST: The heart rate is regular rate rhythm. No murmurs to auscultation. LUNG: Clear to auscultation bilaterally no wheezing noted throughout. Not labored breathing. ABDOMEN/GI: Bowel sounds present in all 4 quadrants. No tenderness to palpation throughout. INTEGUMENTARY: Has different ertyhematous somewhat circular skin lesion on the right lower extremity (from scratching) leading to infection (Per nurse has MRSA). NEUROLOGICAL: Higher mental function: The patient is awake, alert, oriented to self, place and time. Patient is following commands. No aphasia and no neglect. Cranial nerves: The pupils are round, equal and reactive to light and accommodation. Visual manzo are full to confrontation throughout. Extraocular movement is intact no nystagmus is noted. Facial sensation is normal to touch throughout. The facial strength is normal throughout. Hearing is normal bilaterally to hand rub. Tongue is midline and moved [id number] without any difficulty. No dysarthria is noted. Shoulder shrug is normal bilaterally. Motor: Gait is normal with normal arms swings. The strength is 5 over 5 throughout. Normal tone and bulk. Cerebellum: Normal finger to nose bilaterally. Sensation: Sensation is normal to touch throughout. Reflexes (right/left): 1+ throughout except ankles are 0+ bilaterally and patellar are 0-1 bilaterally. Plantars are downgoing bilaterally. Results - Laboratory Findings CBC and BMP: 10/07/20 07:32 10/06/20 08:38 Abnormal Lab Findings: Abnormal Labs 10/03/20 10/03/20 10/03/20 13:32 13:32 13:32 RBC Hgb 12.1 L Hct 34.1 L MCV 78.8 L RDW Lymphocytes # ESR APTT 21.7 L D-Dimer Sodium 132 L Chloride 97 L BUN 59 H Creatinine 2.39 H Est GFR (CKD-EPI)AfAm Est GFR (CKD-EPI)NonAf BUN/Creatinine Ratio Glucose 329 H POC Glucose (mg/dL) Calcium Magnesium 2.4 H AST Alkaline Phosphatase 171 H Total Protein Albumin Albumin/Globulin Ratio Urine Protein Urine Glucose (UA) Amorphous Sediment Hyaline Casts Urine Mucus 10/03/20 10/03/20 10/03/20 19:27 21:22 22:55 RBC Hgb Hct MCV RDW Lymphocytes # ESR APTT D-Dimer Sodium 132 L Chloride BUN 58.0 H Creatinine 2.5 H Est GFR (CKD-EPI)AfAm 33.7 L Est GFR (CKD-EPI)NonAf 29.1 L BUN/Creatinine Ratio 23.20 H Glucose 435 H POC Glucose (mg/dL) 438 H Calcium 8.6 L Magnesium AST 64 H Alkaline Phosphatase 216 H Total Protein Albumin 3.50 L Albumin/Globulin Ratio 1.17 L Urine Protein 1+ H Urine Glucose (UA) 4+ H Amorphous Sediment Rare H Hyaline Casts 10 H Urine Mucus Rare H 10/04/20 10/04/20 10/04/20 03:02 07:01 07:01 RBC 3.62 L Hgb 10.5 L Hct 28.6 L MCV 79.2 L RDW Lymphocytes # ESR APTT D-Dimer Sodium Chloride BUN 57.0 H Creatinine 2.4 H Est GFR (CKD-EPI)AfAm 35.4 L Est GFR (CKD-EPI)NonAf 30.5 L BUN/Creatinine Ratio 23.75 H Glucose POC Glucose (mg/dL) 176 H Calcium Magnesium AST Alkaline Phosphatase 184 H Total Protein 5.9 L Albumin 3.30 L Albumin/Globulin Ratio 1.27 L Urine Protein Urine Glucose (UA) Amorphous Sediment Hyaline Casts Urine Mucus 10/04/20 10/04/20 10/04/20 07:16 12:22 12:40 RBC 3.61 L Hgb 10.3 L Hct 29.4 L MCV RDW Lymphocytes # ESR APTT D-Dimer Sodium Chloride BUN Creatinine Est GFR (CKD-EPI)AfAm Est GFR (CKD-EPI)NonAf BUN/Creatinine Ratio Glucose POC Glucose (mg/dL) 151 H 205 H Calcium Magnesium AST Alkaline Phosphatase Total Protein Albumin Albumin/Globulin Ratio Urine Protein Urine Glucose (UA) Amorphous Sediment Hyaline Casts Urine Mucus 10/04/20 10/04/20 10/05/20 17:03 20:24 06:18 RBC Hgb Hct MCV RDW Lymphocytes # ESR APTT D-Dimer Sodium Chloride BUN Creatinine Est GFR (CKD-EPI)AfAm Est GFR (CKD-EPI)NonAf BUN/Creatinine Ratio Glucose POC Glucose (mg/dL) 288 H 69 L 63 L Calcium Magnesium AST Alkaline Phosphatase Total Protein Albumin Albumin/Globulin Ratio Urine Protein Urine Glucose (UA) Amorphous Sediment Hyaline Casts Urine Mucus 10/05/20 10/05/20 10/05/20 06:31 06:53 07:33 RBC Hgb Hct MCV RDW Lymphocytes # ESR APTT D-Dimer Sodium Chloride BUN 38 H Creatinine 1.92 H Est GFR (CKD-EPI)AfAm Est GFR (CKD-EPI)NonAf BUN/Creatinine Ratio Glucose 138 H POC Glucose (mg/dL) 62 L 143 H Calcium 8.3 L Magnesium AST Alkaline Phosphatase Total Protein Albumin Albumin/Globulin Ratio Urine Protein Urine Glucose (UA) Amorphous Sediment Hyaline Casts Urine Mucus 10/05/20 10/05/20 10/05/20 07:33 11:40 15:14 RBC 3.57 L Hgb 10.2 L Hct 28.8 L MCV RDW Lymphocytes # 0.9 L ESR 64 H APTT D-Dimer 0.78 H Sodium Chloride BUN Creatinine Est GFR (CKD-EPI)AfAm Est GFR (CKD-EPI)NonAf BUN/Creatinine Ratio Glucose POC Glucose (mg/dL) 256 H Calcium Magnesium AST Alkaline Phosphatase Total Protein Albumin Albumin/Globulin Ratio Urine Protein Urine Glucose (UA) Amorphous Sediment Hyaline Casts Urine Mucus 10/05/20 10/05/20 10/06/20 16:43 20:32 06:01 RBC Hgb Hct MCV RDW Lymphocytes # ESR APTT D-Dimer Sodium Chloride BUN Creatinine Est GFR (CKD-EPI)AfAm Est GFR (CKD-EPI)NonAf BUN/Creatinine Ratio Glucose POC Glucose (mg/dL) 155 H 226 H 134 H Calcium Magnesium AST Alkaline Phosphatase Total Protein Albumin Albumin/Globulin Ratio Urine Protein Urine Glucose (UA) Amorphous Sediment Hyaline Casts Urine Mucus 10/06/20 10/06/20 10/06/20 08:38 08:38 11:55 RBC 3.75 L Hgb 10.3 L Hct 30.6 L MCV RDW Lymphocytes # ESR APTT D-Dimer Sodium Chloride BUN 25 H Creatinine 1.71 H Est GFR (CKD-EPI)AfAm Est GFR (CKD-EPI)NonAf BUN/Creatinine Ratio Glucose 65 L POC Glucose (mg/dL) 118 H Calcium Magnesium AST Alkaline Phosphatase Total Protein Albumin Albumin/Globulin Ratio Urine Protein Urine Glucose (UA) Amorphous Sediment Hyaline Casts Urine Mucus 10/06/20 10/06/20 10/07/20 16:50 20:05 00:43 RBC Hgb Hct MCV RDW Lymphocytes # ESR APTT D-Dimer Sodium Chloride BUN Creatinine Est GFR (CKD-EPI)AfAm Est GFR (CKD-EPI)NonAf BUN/Creatinine Ratio Glucose POC Glucose (mg/dL) 205 H 266 H 100 H Calcium Magnesium AST Alkaline Phosphatase Total Protein Albumin Albumin/Globulin Ratio Urine Protein Urine Glucose (UA) Amorphous Sediment Hyaline Casts Urine Mucus 10/07/20 10/07/20 10/07/20 02:50 06:16 07:32 RBC 3.51 L Hgb 9.9 L Hct 28.8 L MCV RDW 15.9 H Lymphocytes # ESR APTT D-Dimer Sodium Chloride BUN Creatinine Est GFR (CKD-EPI)AfAm Est GFR (CKD-EPI)NonAf BUN/Creatinine Ratio Glucose POC Glucose (mg/dL) 57 L 114 H Calcium Magnesium AST Alkaline Phosphatase Total Protein Albumin Albumin/Globulin Ratio Urine Protein Urine Glucose (UA) Amorphous Sediment Hyaline Casts Urine Mucus Assessment and Plan Assessment: This is a 50-year-old gentleman multiple medical problems that presented to the emergency department on 10/03/2020 for chest discomfort in the left upper quad rant and having pain with inspiration. During the hospital stay, had episodes of hypotensive and the systolic was ranging between 70 to 90s while diastolic was ranging between 40s to 50s as well as the patient the has brittle diabetes and the last serum glucose was 65 on 10/06/2020. Generalized weakness due to multifactorial: Episodes of hypotensive, brittle diabetes with episode of mild hypoglycemia not that significant and possibly a component of autonomic dysfunction especially with uncontrolled diabetes Diabetic peripheral neuropathy Brittle diabetes Uncontrolled diabetes who is insulin dependent Episodes of hypotension---resolved Acute on chronic kidney insufficiency Hyperlipidemia Heart failure with preserved ejection fraction History of endocarditis Hypertension Plan: Patient orthostatic on 10/06/2020 at around 17:57 is supine is 140/62 with a heart rate of 87 sitting is 141/68 with a heart rate of 88 and standing is a 130/69 with a heart rate of 87. Therefore this is negative for orthostatic hypotension. CT of the head on 10/05/2020 is reported as no acute intracranial hemorrhage or midline shift is seen. Patient had another CT of the head on 10/06/2020 for weakness and was reported as no acute intracranial process. 2-D echo was reported as left ventricular size is normal as well as the wall thickness is normal. Ejection fraction of 55%. Normal left atrial size. TSH is 1.23 which is considered normal. AST is 32 and ALT is 30. I ordered vitamin B12 and folate and that is pending. I ordered Vitamin B6. I ordered tilt table test. Consulted physical therapy and occupation therapy. The patient is on gabapentin 800 mg 1 tablet 3 times a day for his peripheral neuropathy. The patient is on Cymbalta 60 mg daily The patient is on opiates and Xanax. I recommend avoiding pain medications and benzos medication as much as possible. Reason avoid any further hypotensive episode as well as hypoglycemic episode which can cause generalized weakness as well as falls and we will defer the management to the primary team. Thank you for the consultation. Franklin Long M.D. Neuro-hospitalist Time with Patient: Greater than 30
[2020-10-07 11:34] LABS: Glucose,Whole Blood 306 mg/dL (75-99)
[2020-10-07 11:36] LABS: Glucose,Whole Blood 325 mg/dL (75-99)
--- NOTE | 2020-10-07 12:54 | P.PN ---
Subjective Progress Note Date: 10/07/20 This is a 50-year-old male who was recently admitted with chest pain was also found to have acute renal failure and is being closely monitored. Does have history of chronic kidney disease and diabetes mellitus and patient is maintained on Accu-Cheks before meals and at bedtime uncontrolled blood sugars. Patient continues to have right lower extremity discomfort and continues with oral antibiotics in the form of doxycycline. Infectious disease is following. Patient states he does follow with the wound care clinic in the outpatient setting. Patient states he has been having episodes of fall be tight feeling and weakness in the lower extremities with position changes and standing and neurology was consulted. Tilt table test was ordered and currently pending at this time. Patient underwent CT abdomen chest and pelvis which was negative and also shows the lungs are clear of consolidation with no evidence of pleural effusion or pericardial effusion noted. Blood cultures remain negative. C ultures of the right knee finalized showing MRSA. Patient currently denies any chest pain or shortness of breath. Patient is tolerating diet with no reports of nausea or vomiting noted. PT/OT to evaluate the patient. Review of systems: Constitutional: No reports of fatigue, fever, or chills Cardiovascular: No reports of chest pain or palpitations Respiratory: No reports of shortness of breath or cough GI: No reports of nausea, vomiting, or diarrhea : No reports of dysuria or retention Neurovascular: Reports occasional weakness of the lower extremities All medications have been reviewed Active Medications Acetaminophen (Acetaminophen Tab 325 Mg Tab) 650 mg PO Q6HR PRN PRN Reason: Mild Pain or Fever > 100.5 Hydrocodone Bitart/Acetaminophen (Hydrocodone/Apap 5-325mg 1 Each Tab) 1 each PO Q6HR PRN PRN Reason: Pain Albuterol Sulfate (Albuterol Nebulized 2.5 Mg/3 Ml) 2.5 mg INHALATION RT-Q6H PRN PRN Reason: Shortness Of Breath Alprazolam (Alprazolam 0.25 Mg Tab) 0.25 mg PO TID PRN PRN Reason: Anxiety Atorvastatin Calcium (Atorvastatin 40 Mg Tab) 40 mg PO DAILY [facility] Last Admin: 10/07/20 08:39 Dose: 40 mg Documented by: Budesonide/Formoterol Fumarate (Symbicort 80-4.5 Mcg Inhaler) 2 puff INHALATION RT-BID [facility] Last Admin: 10/07/20 08:05 Dose: 2 puff Documented by: Doxycycline Monohydrate (Doxycycline 100 Mg Cap) 100 mg PO BID [facility] Last Admin: 10/07/20 08:39 Dose: 100 mg Documented by: Duloxetine HCl (Duloxetine Hcl 60 Mg Capsule.Dr) 60 mg PO DAILY [facility] Last Admin: 10/07/20 08:39 Dose: 60 mg Documented by: Furosemide (Furosemide 20 Mg Tab) 20 mg PO BID@0900,1600 [facility] Last Admin: 10/07/20 08:39 Dose: 20 mg Documented by: Gabapentin (Gabapentin 400 Mg Cap) 800 mg PO TID [facility] Last Admin: 10/07/20 08:39 Dose: 800 mg Documented by: Heparin Sodium (Porcine) (Heparin Sodium,Porcine 5,000 Unit/Ml 1 Ml Vial) 5,000 unit SQ Q12HR [facility] Last Admin: 10/07/20 08:40 Dose: 5,000 unit Documented by: Hydromorphone HCl (Hydromorphone 0.5 Mg/0.5 Ml Syringe) 0.5 mg IVP Q3HR PRN PRN Reason: Moderate Pain Hydromorphone HCl (Hydromorphone 1 Mg/Ml 1 Ml Syringe) 1 mg IVP Q3HR PRN PRN Reason: Severe Pain Sodium Chloride (Saline 0.9%) 1,000 mls @ 75 mls/hr IV .[id number] [facility] Last Admin: 10/07/20 06:41 Dose: 75 mls/hr Documented by: Insulin Aspart (Insulin Aspart (Novolog) 100 Unit/Ml Vial) 0 unit SQ [facility]; Protocol Last Admin: 10/07/20 12:08 Dose: 5 unit Documented by: Insulin Detemir (Insulin Detemir (Levemir) 100 Unit/Ml Syr) 56 unit SQ HS [facility] Last Admin: 10/06/20 20:56 Dose: 56 unit Documented by: Ketorolac Tromethamine (Ketorolac 0.5% Ophth Drops 5 Ml Btl) 1 drops RIGHT EYE QID [facility] Last Admin: 10/07/20 12:08 Dose: 1 drops Documented by: Loperamide HCl (Loperamide 2 Mg Cap) 2 mg PO QID PRN PRN Reason: Diarrhea Last Admin: 10/04/20 12:50 Dose: 2 mg Documented by: Metoprolol Tartrate (Metoprolol Tartrate 25 Mg Tab) 25 mg PO BID [facility] Last Admin: 10/07/20 08:39 Dose: 25 mg Documented by: Naloxone HCl (Naloxone 0.4 Mg/Ml 1 Ml Vial) 0.2 mg IV Q2M PRN PRN Reason: Opioid Reversal Nitroglycerin (Nitroglycerin Sl Tabs 0.4 Mg Tab) 0.4 mg SUBLINGUAL Q5M PRN PRN Reason: Chest Pain Patient's Own ( Semaglutide [Ozempic ] 1 Mg/0.75 Ml Pen. Injctr) 1 mg SQ TH [facility] Ofloxacin (Ofloxacin 0.3% Ophth Drops 5 Ml Bottle) 1 drops RIGHT EYE TID [facility] Last Admin: 10/07/20 08:40 Dose: 1 drops Documented by: Pantoprazole Sodium (Pantoprazole 40 Mg Tablet) 40 mg PO AC-BRKFST [facility] Last Admin: 10/07/20 06:41 Dose: 40 mg Documented by: Potassium Chloride (Potassium Chloride Er 20 Meq Tab.Er) 20 meq PO BID [facility] Last Admin: 10/07/20 08:39 Dose: 20 meq Documented by: Prednisolone Acetate (Prednisolone Acetate 1% Ophth Drops 5 Ml Btl) 1 drops RIGHT EYE QID [facility] Last Admin: 10/07/20 12:09 Dose: 1 drops Documented by: Trazodone HCl (Trazodone Hcl 50 Mg Tab) 150 mg PO HS [facility] Last Admin: 10/06/20 20:55 Dose: 150 mg Documented by: Objective - Vital Signs Vital signs: Vital Signs Temp 98.4 F 10/07/20 08:36 Pulse 87 10/07/20 08:36 Resp 18 10/07/20 08:36 BP 115/66 10/07/20 08:36 Pulse Ox 99 10/07/20 08:36 Intake & Output 10/06/20 10/07/20 10/07/20 18:59 06:59 18:59 Intake Total 2640 960 Balance 2640 960 Weight 87.5 kg Intake: Oral 2640 960 Other: Voiding Method Toilet Toilet Toilet Urinal Urinal # Voids 2 2 1 - Exam Gen: This is a 50-year-old male awake, alert and oriented 3, well-developed, well-nourished. Temp is 98.4F, pulse is 87, respirations are 18, blood pressure is 115/66 and oxygen saturation is 99% on room air. HEENT: Head is atraumatic, normocephalic. Pupils equal, round. Sclerae is anicteric. NECK: Supple. No JVD. No lymphadenopathy. No thyromegaly. LUNGS: Diminished breath sounds with some scattered rhonchi noted. No intercostal retractions. HEART: S1, S2 are muffled ABDOMEN: Soft. Bowel sounds are present. No masses. No tenderness. EXTREMITIES: No pedal edema. No calf tenderness. NEUROLOGICAL: Patient is awake, alert and oriented x3. Diffusely weak - Labs CBC & Chem 7: 10/07/20 07:32 10/06/20 08:38 Labs: Abnormal Lab Results - Last 24 Hours (Table) 10/06/20 10/06/20 10/07/20 Range/Units 16:50 20:05 00:43 RBC (4.30-5.90) m/uL Hgb (13.0-17.5) gm/dL Hct (39.0-53.0) % RDW (11.5-15.5) % POC Glucose (mg/dL) 205 H 266 H 100 H (75-99) mg/dL 10/07/20 10/07/20 10/07/20 Range/Units 02:50 06:16 07:32 RBC 3.51 L (4.30-5.90) m/uL Hgb 9.9 L (13.0-17.5) gm/dL Hct 28.8 L (39.0-53.0) % RDW 15.9 H (11.5-15.5) % POC Glucose (mg/dL) 57 L 114 H (75-99) mg/dL 10/07/20 10/07/20 Range/Units 11:33 11:35 RBC (4.30-5.90) m/uL Hgb (13.0-17.5) gm/dL Hct (39.0-53.0) % RDW (11.5-15.5) % POC Glucose (mg/dL) 306 H 325 H (75-99) mg/dL Microbiology - Last 24 Hours (Table) 10/06/20 08:38 Blood Culture - Preliminary Blood No Growth after 24 hours 10/05/20 07:33 Blood Culture - Preliminary Blood No Growth after 48 hours 10/04/20 17:32 Gram Stain - Final Knee - Right Wound Culture - Final Methicillin resist S. 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 treated with daptomycin for 4 weeks from [facility] Multiple cellulitis on the right side, upper and lower limbs, possibly from MRSA Hyponatremia anemia, microcytic Relative hypotension History of congestive heart failure, ejection fraction 50-55% with chronic diastolic dysfunction MRSA bacteremia previously History of diabetes mellitus type 2 Hypertension hyperlipidemia History of bilateral peripheral neuropathy history of gout history of cholecystectomy History of anxiety Remote history of nicotine dependence Full code Recommendations and discussion: Recommend to continue with current medications, management, and symptomatic treatment. PT/OT to evaluate the patient. Increase activity as tolerated. Patient is maintained on oral doxycycline and will continue and infectious disease is following. Neurology also evaluated the patient and ordered tilt table testing which is currently pending at this time. Will await report. Patient underwent CT scan of the chest abdomen pelvis mentioned previously. Continue to monitor blood sugars before meals and at bedtime and treat accordingly. Given multiple complex medical issues, prognosis is guarded. Further recommendations to follow. Possible discharge in 24-48 hours.
[2020-10-07 14:14] VITALS: BMI 30.2
[2020-10-07 16:36] LABS: Glucose,Whole Blood 308 mg/dL (75-99)
[2020-10-07 20:45] LABS: Glucose,Whole Blood 268 mg/dL (75-99)
[2020-10-07] MEDS: INSULIN DETEMIR (LEVEMIR) 100 UNIT/ML SYR SQ SCH (22:11)
[2020-10-07] MEDS: CLINDAMYCIN 150 MG CAP PO SCH (22:15)
[2020-10-07] MEDS: traZODone HCL 50 MG TAB PO SCH (22:20)
--- NOTE | 2020-10-07 22:30 | PN ---
PROGRESS NOTE DATE OF SERVICE: 10/07/2020 REASON FOR FOLLOWUP: Multiple skin lesions with MRSA infection. INTERVAL HISTORY: The patient is currently afebrile. The patient is breathing comfortably. Denies having any chest pain or shortness of breath or cough. No abdominal pain or any pain to his wound area. PHYSICAL EXAMINATION: Blood pressure 152/78 with a pulse of 88, temperature 97.8. He is 100% on room air. General description is a middle-aged male lying in bed in no distress. RESPIRATORY SYSTEM: Unlabored breathing. Clear to auscultation anteriorly. HEART: S1, S2. Regular rate and rhythm. ABDOMEN: Soft. No tenderness. LABS: Wound culture with MRSA that is resistant to doxycycline, tetracycline patient with multiple skin destruction with secondary MRSA infection that is resistant to the tetracycline. Antibiotic will be switched over to oral clindamycin, as he is not able to use vancomycin because of his borderline kidney function, and Zyvox cannot be used because of the patient is on. MMODL / IJN: [id number] /
[2020-10-08 03:15] LABS: Glucose,Whole Blood 344 mg/dL (75-99)
[2020-10-08 06:07] LABS: Glucose,Whole Blood 207 mg/dL (75-99)
[2020-10-08] MEDS: PANTOPRAZOLE 40 MG TABLET PO SCH (06:43)
[2020-10-08] MEDS: INSULIN ASPART (NovoLOG) 100 UNIT/ML VIAL SQ SCH ×4 (06:43→20:36)
[2020-10-08] MEDS: SODIUM CHLORIDE 0.9% 1,000 ML IV SCH ×2 (06:44→18:33)
[2020-10-08] MEDS: SYMBICORT 80-4.5 MCG INHALER INHALATION SCH ×2 (07:52→20:22)
[2020-10-08] MEDS ORDERED: SEMAGLUTIDE 1 MG/0.75 ML SQ SCH (09:00)
[2020-10-08] MEDS: DULoxetine HCL 60 MG CAPSULE.DR PO SCH (09:26)
[2020-10-08] MEDS: ATORVASTATIN 40 MG TAB PO SCH (09:26)
[2020-10-08] MEDS: GABAPENTIN 400 MG CAP PO SCH ×3 (09:27→19:55)
[2020-10-08] MEDS: POTASSIUM CHLORIDE ER 20 MEQ TAB.ER PO SCH ×2 (09:27→19:49)
[2020-10-08] MEDS: METOPROLOL TARTRATE 25 MG TAB PO SCH ×2 (09:27→19:55)
[2020-10-08] MEDS: HEPARIN SODIUM,PORCINE 5,000 UNIT/ML 1 ML VIAL SQ SCH ×2 (09:27→19:55)
[2020-10-08] MEDS: FUROSEMIDE 20 MG TAB PO SCH ×2 (09:27→16:33)
[2020-10-08] MEDS: prednisoLONE ACETATE 1% OPHTH DROPS 5 ML BTL RIGHT EYE SCH ×4 (09:27→19:56)
[2020-10-08] MEDS: OFLOXACIN 0.3% OPHTH DROPS 5 ML BOTTLE RIGHT EYE SCH ×3 (09:28→19:56)
[2020-10-08] MEDS: KETOROLAC 0.5% OPHTH DROPS 5 ML BTL RIGHT EYE SCH ×4 (09:28→19:56)
[2020-10-08] MEDS: CLINDAMYCIN 150 MG CAP PO SCH ×3 (09:32→19:55)
[2020-10-08 11:56] LABS: Glucose,Whole Blood 177 mg/dL (75-99)
--- NOTE | 2020-10-08 11:58 | P.PN ---
Subjective Progress Note Date: 10/08/20 Patient was seen today and he stated that he has not had any further episodes of falls or near falls. He denies of any focal weakness, numbness, visual disturbance or difficulty getting his words out. He had a tilt table test on 10/07/20 and I was notified by the nurse that the upon standing his blood pressure dropped on the tilt table test. There is no preliminary or final reports in the system yet. The patient sugar continues to be in the 200s to 300's level. Objective - Vital Signs Vital signs: Vital Signs Temp 98.5 F 10/08/20 08:00 Pulse 98 10/08/20 08:00 Resp 16 10/08/20 08:00 BP 130/67 10/08/20 08:00 Pulse Ox 97 10/08/20 08:00 Intake & Output 10/07/20 10/08/20 10/08/20 18:59 06:59 18:59 Intake Total 1440 720 Balance 1440 720 Weight 87.5 kg 87.5 kg Intake: Oral 1440 720 Other: Voiding Method Toilet Toilet Toilet Urinal Urinal Urinal # Voids 3 0 1 # Bowel Movements 0 - Exam GENERAL: The patient is lying in bed and is not in acute distress. INTEGUMENTARY: Has different ertyhematous somewhat circular skin lesion on the right lower extremity (from scratching) leading to infection (Per nurse has MRSA). NEUROLOGICAL: Higher mental function: The patient is awake, alert, oriented to self, place and time. Patient is following commands. No aphasia and no neglect. Cranial nerves: The pupils are round, equal and reactive to light and accommodation. Visual manzo are full to confrontation throughout. Extraocular movement is intact no nystagmus is noted. Facial sensation is normal to touch throughout. The facial strength is normal throughout. Hearing is normal bilaterally to hand rub. Tongue is midline and moved [id number] without any difficulty. No dysarthria is noted. Shoulder shrug is normal bilaterally. Motor: Gait is normal with normal arms swings. The strength is 5 over 5 throughout. Normal tone and bulk. Cerebellum: Normal finger to nose bilaterally. Sensation: Sensation is normal to touch throughout. Reflexes (right/left): 1+ throughout except ankles are 0+ bilaterally and patellar are 0-1 bilaterally. Plantars are downgoing bilaterally. - Labs CBC & Chem 7: 10/07/20 07:32 10/08/20 14:22 Labs: Abnormal Lab Results - Last 24 Hours (Table) 10/07/20 10/07/20 10/08/20 Range/Units 16:34 20:40 03:13 POC Glucose (mg/dL) 308 H 268 H 344 H (75-99) mg/dL 10/08/20 Range/Units 06:02 POC Glucose (mg/dL) 207 H (75-99) mg/dL Microbiology - Last 24 Hours (Table) 10/06/20 08:38 Blood Culture - Preliminary Blood No Growth after 48 hours 10/05/20 07:33 Blood Culture - Preliminary Blood No Growth after 72 hours Assessment and Plan Assessment: This is a 50-year-old gentleman multiple medical problems that presented to the emergency department on 10/03/2020 for chest discomfort in the left upper quadrant and having pain with inspiration. During the hospital stay, had episodes of hypotensive and the systolic was ranging between 70 to 90s while diastolic was ranging between 40s to 50s as well as the patient the has brittle diabetes and the last serum glucose was 65 on 10/06/2020. Generalized weakness due to multifactorial: Episodes of hypotensive, brittle diabetes with episode of mild hypoglycemia not that significant and seems autonomic dysfunction especially with uncontrolled diabetes Possible autonomic dysfunction (especially with positive tilt table test) Diabetic peripheral neuropathy Cellulitis (MRSA) Brittle sugar Uncontrolled diabetes who is insulin dependent Episodes of hypotension---resolved Acute on chronic kidney insufficiency Hyperlipidemia Heart failure with preserved ejection fraction History of endocarditis Hypertension Plan: Patient orthostatic on 10/06/2020 at around 17:57 is supine is 140/62 with a heart rate of 87 sitting is 141/68 with a heart rate of 88 and standing is a 130/69 with a heart rate of 87. Therefore this is negative for orthostatic hypotension. CT of the head on 10/05/2020 is reported as no acute intracranial hemorrhage or midline shift is seen. Patient had another CT of the head on 10/06/2020 for weakness and was reported as no acute intracranial process. 2-D echo was reported as left ventricular size is normal as well as the wall thickness is normal. Ejection fraction of 55%. Normal left atrial size. TSH is 1.23 which is considered normal. AST is 32 and ALT is 30. Vitamin B12 level: 741 (normal). Folate and Vitamin B6 are pending. Tilt table test report is pending. I notified the nurse practitioner from the primary team as well as the nurse for cardiology to reevaluate him especially with the positive tilt table test. Possibly the patient can benefit from a salt tablet if his blood pressure Dropping or maybe midodrine but will get the opinoin of cardiology team. Recommend better control of the diabetes. Physical therapy and occupation therapy are consulted. The patient is on gabapentin 800 mg 1 tablet 3 times a day for his peripheral neuropathy. The patient is on Cymbalta 60 mg daily The patient is on opiates and Xanax. I recommend avoiding pain medications and benzos medication as much as possible. Reason avoid any further hypotensive episode as well as hypoglycemic episode which can cause generalized weakness as well as falls and we will defer the management to the primary team. I recommended the patient follows up with a neurologist as an outpatient within 2 weeks. Infection disease is on board. Will defer the rest of the medical management to the primary team. Franklin Long M.D. Neuro-hospitalist Time with Patient: Less than 30
[2020-10-08] MEDS: MUPIROCIN 2% OINT 22 GM TUBE TOPICAL SCH ×3 (12:21→19:56)
[2020-10-08 14:56] LABS: Calcium 8.5 mg/dL (8.4-10.2); Potassium 5.5 mmol/L (3.5-5.1)
[2020-10-08] MEDS ORDERED: SODIUM POLYSTYRENE SULFONATE 15 GM/60 ML BOTTLE PO STA (15:03)
--- NOTE | 2020-10-08 15:12 | PN ---
PROGRESS NOTE DATE OF SERVICE: 10/08/2020 REASON FOR FOLLOWUP: Multiple skin lesions with MRSA infection. INTERVAL HISTORY: The patient is currently afebrile. Patient is breathing comfortably. Patient denies having any chest pain or shortness of breath or cough. No abdominal pain or any worsening pain to the leg wound area. PHYSICAL EXAMINATION: Blood pressure 138/77, pulse of 92, temperature 98.1. He is 100% on room air. General description is a middle-aged male lying in bed in no distress. RESPIRATORY SYSTEM: Unlabored breathing, clear to auscultation anteriorly. HEART: S1, S2. Regular rate and rhythm. ABDOMEN: Soft, no tenderness. Right leg has some superficial ulceration. No significant cellulitis. LABS: No new labs have been obtained today. DIAGNOSTIC IMPRESSION AND PLAN: Patient admitted to the hospital with , has had chest pain, did have extensive workup due to chest negative for any abnormality. Blood culture has been negative. Echocardiogram did not show any vegetation. The patient is currently on oral clindamycin to continue for about 5 to 6 days. Patient continue local care with dry Aquacel Silver dressing. MMODL / IJN: [id number] /
--- NOTE | 2020-10-08 15:20 | P.PN ---
Subjective Progress Note Date: 10/08/20 This is a 50-year-old male who was recently admitted with chest pain was also found to have acute renal failure and is being closely monitored. Does have history of chronic kidney disease and diabetes mellitus and patient is maintained on Accu-Cheks before meals and at bedtime uncontrolled blood sugars. Patient continues to have right lower extremity discomfort and continues with oral antibiotics in the form of doxycycline. Infectious disease is following. Patient states he does follow with the wound care clinic in the outpatient setting. Patient states he has been having episodes of fall be tight feeling and weakness in the lower extremities with position changes and standing and neurology was consulted. Tilt table test was ordered and currently pending at this time. Patient underwent CT abdomen chest and pelvis which was negative and also shows the lungs are clear of consolidation with no evidence of pleural effusion or pericardial effusion noted. Blood cultures remain negative. C ultures of the right knee finalized showing MRSA. Patient currently denies any chest pain or shortness of breath. Patient is tolerating diet with no reports of nausea or vomiting noted. PT/OT to evaluate the patient. 10/08/2020 Patient is seen and evaluated in follow-up and continues to have intermittent periods of chest pain and is being closely monitored. Patient underwent tilt table test which per nursing staff was noted to be positive as patient became hypotensive and awaiting for official report. Patient states he continues to have periods of weakness in the lower extremities and feelings of dizziness and fogginess with position changes. Potassium was elevated at 5.5 today and will repeat a.m. labs. A dose of Kayexalate will be given. Creatinine is currently 1.78. Multiple medical consultations following. Patient with multiple wounds healing and non-healing with scabs noted all over upper and lower extremities and mupirocin ordered. Patient is currently maintained on oral antibiotics in the form of clindamycin for MRSA noted on cultures and patient is unable to tolerate vancomycin given worsening kidney functions. Infectious disease is following. Review of systems: Constitutional: No reports of fatigue, fever, or chills, reports occasional dizziness with position changes Cardiovascular: No reports of chest pain or palpitations Respiratory: No reports of shortness of breath or cough GI: No reports of nausea, vomiting, or diarrhea : No reports of dysuria or retention Neurovascular: Reports occasional weakness of the lower extremities All medications have been reviewed Active Medications Acetaminophen (Acetaminophen Tab 325 Mg Tab) 650 mg PO Q6HR PRN PRN Reason: Mild Pain or Fever > 100.5 Hydrocodone Bitart/Acetaminophen (Hydrocodone/Apap 5-325mg 1 Each Tab) 1 each PO Q6HR PRN PRN Reason: Pain Albuterol Sulfate (Albuterol Nebulized 2.5 Mg/3 Ml) 2.5 mg INHALATION RT-Q6H PRN PRN Reason: Shortness Of Breath Alprazolam (Alprazolam 0.25 Mg Tab) 0.25 mg PO TID PRN PRN Reason: Anxiety Atorvastatin Calcium (Atorvastatin 40 Mg Tab) 40 mg PO DAILY [facility] Last Admin: 10/08/20 09:26 Dose: 40 mg Documented by: Budesonide/Formoterol Fumarate (Symbicort 80-4.5 Mcg Inhaler) 2 puff INHALATION RT-BID [facility] Last Admin: 10/08/20 07:52 Dose: 2 puff Documented by: Clindamycin HCl (Clindamycin 150 Mg Cap) 450 mg PO TID [facility] Last Admin: 10/08/20 09:32 Dose: 450 mg Documented by: Duloxetine HCl (Duloxetine Hcl 60 Mg Capsule.Dr) 60 mg PO DAILY [facility] Last Admin: 10/08/20 09:26 Dose: 60 mg Documented by: Furosemide (Furosemide 20 Mg Tab) 20 mg PO BID@0900,1600 [facility] Last Admin: 10/08/20 09:27 Dose: 20 mg Documented by: Gabapentin (Gabapentin 400 Mg Cap) 800 mg PO TID [facility] Last Admin: 10/08/20 09:27 Dose: 800 mg Documented by: Heparin Sodium (Porcine) (Heparin Sodium,Porcine 5,000 Unit/Ml 1 Ml Vial) 5,000 unit SQ Q12HR [facility] Last Admin: 10/08/20 09:27 Dose: 5,000 unit Documented by: Hydromorphone HCl (Hydromorphone 0.5 Mg/0.5 Ml Syringe) 0.5 mg IVP Q3HR PRN PRN Reason: Moderate Pain Hydromorphone HCl (Hydromorphone 1 Mg/Ml 1 Ml Syringe) 1 mg IVP Q3HR PRN PRN Reason: Severe Pain Sodium Chloride (Saline 0.9%) 1,000 mls @ 75 mls/hr IV .[id number] [facility] Last Admin: 10/08/20 06:44 Dose: 75 mls/hr Documented by: Insulin Aspart (Insulin Aspart (Novolog) 100 Unit/Ml Vial) 0 unit SQ [facility]; Protocol Last Admin: 10/08/20 12:21 Dose: 2 unit Documented by: Insulin Detemir (Insulin Detemir (Levemir) 100 Unit/Ml Syr) 56 unit SQ HS [facility] Last Admin: 10/07/20 22:11 Dose: 56 unit Documented by: Ketorolac Tromethamine (Ketorolac 0.5% Ophth Drops 5 Ml Btl) 1 drops RIGHT EYE QID [facility] Last Admin: 10/08/20 13:57 Dose: 1 drops Documented by: Loperamide HCl (Loperamide 2 Mg Cap) 2 mg PO QID PRN PRN Reason: Diarrhea Last Admin: 10/04/20 12:50 Dose: 2 mg Documented by: Metoprolol Tartrate (Metoprolol Tartrate 25 Mg Tab) 25 mg PO BID [facility] Last Admin: 10/08/20 09:27 Dose: 25 mg Documented by: Mupirocin (Mupirocin 2% Oint 22 Gm Tube) 1 applic TOPICAL TID [facility] Last Admin: 10/08/20 12:21 Dose: 1 applic Documented by: Naloxone HCl (Naloxone 0.4 Mg/Ml 1 Ml Vial) 0.2 mg IV Q2M PRN PRN Reason: Opioid Reversal Nitroglycerin (Nitroglycerin Sl Tabs 0.4 Mg Tab) 0.4 mg SUBLINGUAL Q5M PRN PRN Reason: Chest Pain Patient's Own ( Semaglutide [Ozempic ] 1 Mg/0.75 Ml Pen. Injctr) 1 mg SQ TH [facility] Last Admin: 10/08/20 09:28 Dose: Not Given Documented by: Ofloxacin (Ofloxacin 0.3% Ophth Drops 5 Ml Bottle) 1 drops RIGHT EYE TID [facility] Last Admin: 10/08/20 09:28 Dose: 1 drops Documented by: Pantoprazole Sodium (Pantoprazole 40 Mg Tablet) 40 mg PO AC-BRKFST [facility] Last Admin: 10/08/20 06:43 Dose: 40 mg Documented by: Potassium Chloride (Potassium Chloride Er 20 Meq Tab.Er) 20 meq PO BID [facility] Last Admin: 10/08/20 09:27 Dose: 20 meq Documented by: Prednisolone Acetate (Prednisolone Acetate 1% Ophth Drops 5 Ml Btl) 1 drops RIGHT EYE QID [facility] Last Admin: 10/08/20 13:58 Dose: 1 drops Documented by: Trazodone HCl (Trazodone Hcl 50 Mg Tab) 150 mg PO HS [facility] Last Admin: 10/07/20 22:20 Dose: 150 mg Documented by: Objective - Vital Signs Vital signs: Vital Signs Temp 98.5 F 10/08/20 08:00 Pulse 98 10/08/20 08:00 Resp 16 10/08/20 08:00 BP 130/67 10/08/20 08:00 Pulse Ox 97 10/08/20 08:00 Intake & Output 10/07/20 10/08/20 10/08/20 18:59 06:59 18:59 Intake Total 1440 720 Balance 1440 720 Weight 87.5 kg 87.5 kg Intake: Oral 1440 720 Other: Voiding Method Toilet Toilet Toilet Urinal Urinal Urinal # Voids 3 0 1 # Bowel Movements 0 - Exam Gen: This is a 50-year-old male awake, alert and oriented 3, well-developed, well-nourished. Temp is 98.1F, pulse is 92, respirations are 16, blood pressure is 138/77 and oxygen saturation is 100% on room air. HEENT: Head is atraumatic, normocephalic. Pupils equal, round. Sclerae is anicteric. NECK: Supple. No JVD. No lymphadenopathy. No thyromegaly. LUNGS: Diminished breath sounds with some scattered rhonchi noted. No intercostal retractions. HEART: S1, S2 are muffled ABDOMEN: Soft. Bowel sounds are present. No masses. No tenderness. EXTREMITIES: No pedal edema. No calf tenderness. Multiple wounds healing and nonhealing with multiple scabs noted to bilateral upper and lower extremities with ulceration noted on the right leon NEUROLOGICAL: Patient is awake, alert and oriented x3. Diffusely weak - Labs CBC & Chem 7: 10/07/20 07:32 10/08/20 14:22 Labs: Abnormal Lab Results - Last 24 Hours (Table) 10/07/20 10/07/20 10/07/20 Range/Units 11:33 11:35 16:34 POC Glucose (mg/dL) 306 H 325 H 308 H (75-99) mg/dL 10/07/20 10/08/20 10/08/20 Range/Units 20:40 03:13 06:02 POC Glucose (mg/dL) 268 H 344 H 207 H (75-99) mg/dL Microbiology - Last 24 Hours (Table) 10/06/20 08:38 Blood Culture - Preliminary Blood No Growth after 48 hours 10/05/20 07:33 Blood Culture - Preliminary Blood No Growth after 72 hours Assessment and Plan Assessment: Chest pain possible unstable angina, present on admission Weakness of the legs, rule out TIA Positive tilt table test Acute renal failure with prerenal acute tubular necrosis Chronic kidney disease, stage III, baseline 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 treated with daptomycin for 4 weeks from [facility] Multiple cellulitis on the right side, upper and lower limbs, possibly from MRSA Hyponatremia anemia, microcytic Relative hypotension History of congestive heart failure, ejection fraction 50-55% with chronic diastolic dysfunction MRSA bacteremia previously History of diabetes mellitus type 2 Hypertension hyperlipidemia History of bilateral peripheral neuropathy history of gout history of cholecystectomy History of anxiety Remote history of nicotine dependence Full code Recommendations and discussion: Recommend to continue with current medications, management, and symptomatic treatment. PT/OT following. Patient continues to have lower extremity weakness and dizziness intermittently when getting up. Patient underwent tilt table test with cardiology yesterday and was positive and patient became hypotensive unable to complete the rest of the testing. Creatinine slightly elevated at 1.75 today and will repeat a.m. labs. Patient is maintained on oral clindamycin and will continue and infectious disease is following. Mupirocin ordered for multiple wounds that are healing and non-healing with scabs noted over upper and lower extremities. Neurology following. Awaiting official tilt table report. Continue to monitor blood sugars before meals and at bedtime and treat accordingly. Given multiple complex medical issues, prognosis is guarded. Further recommendations to follow. Possible discharge in 24-48 hours.
[2020-10-08 16:34] LABS: Glucose,Whole Blood 90 mg/dL (75-99)
--- NOTE | 2020-10-08 18:37 | P.EPPROC ---
- EP Procedure Note Electrophysiology Procedure Note: Diagnosis Recurrent syncope 12-lead EKG was reviewed and shows sinus rhythm with early repolarization abnormality inferolaterally normal TN interval and QT interval no delta waves Tilt table test per protocol Baseline blood pressure 160/85 mmHg Baseline heart rate 86 beats a minute Patient was tilted upright at an angle of 70 per protocol There was an immediate drop in blood pressure to 97/57 mmHg without any change in heart rate. The blood pressure further declined slowly to 65 x 50 m mercury. He complained of blurring of vision and feeling weak in the legs When he was a supine his blood pressure immediately improved to 109/65 mmHg and then 246/72 mmHg Impression Normal twelve-lead EKG Orthostatic hypotension syndrome/dysautonomia
[2020-10-08] MEDS: traZODone HCL 50 MG TAB PO SCH (19:55)
[2020-10-08 20:17] LABS: Glucose,Whole Blood 300 mg/dL (75-99)
[2020-10-08] MEDS: INSULIN DETEMIR (LEVEMIR) 100 UNIT/ML SYR SQ SCH (20:37)
[2020-10-09] MEDS: SODIUM CHLORIDE 0.9% 1,000 ML IV SCH (03:00)
[2020-10-09] MEDS: PANTOPRAZOLE 40 MG TABLET PO SCH (06:29)
[2020-10-09 06:30] LABS: Glucose,Whole Blood 122 mg/dL (75-99)
[2020-10-09] MEDS: INSULIN ASPART (NovoLOG) 100 UNIT/ML VIAL SQ SCH ×4 (06:30→21:21)
[2020-10-09] MEDS: SYMBICORT 80-4.5 MCG INHALER INHALATION SCH ×2 (07:45→20:00)
[2020-10-09 08:20] LABS: Calcium 8.1 mg/dL (8.4-10.2); Potassium 4.3 mmol/L (3.5-5.1)
[2020-10-09] MEDS: FUROSEMIDE 20 MG TAB PO SCH (08:45)
[2020-10-09] MEDS: CLINDAMYCIN 150 MG CAP PO SCH ×3 (08:45→21:29)
[2020-10-09] MEDS: ATORVASTATIN 40 MG TAB PO SCH (08:45)
[2020-10-09] MEDS: HEPARIN SODIUM,PORCINE 5,000 UNIT/ML 1 ML VIAL SQ SCH ×2 (08:45→21:20)
[2020-10-09] MEDS: DULoxetine HCL 60 MG CAPSULE.DR PO SCH (08:45)
[2020-10-09] MEDS: GABAPENTIN 400 MG CAP PO SCH ×3 (08:45→21:20)
[2020-10-09] MEDS: POTASSIUM CHLORIDE ER 20 MEQ TAB.ER PO SCH ×2 (08:45→21:20)
[2020-10-09] MEDS: OFLOXACIN 0.3% OPHTH DROPS 5 ML BOTTLE RIGHT EYE SCH ×3 (08:46→21:21)
[2020-10-09] MEDS: prednisoLONE ACETATE 1% OPHTH DROPS 5 ML BTL RIGHT EYE SCH ×4 (08:46→21:22)
[2020-10-09] MEDS: KETOROLAC 0.5% OPHTH DROPS 5 ML BTL RIGHT EYE SCH ×4 (08:46→21:22)
[2020-10-09] MEDS: MUPIROCIN 2% OINT 22 GM TUBE TOPICAL SCH ×3 (08:47→21:21)
[2020-10-09] MEDS: METOPROLOL TARTRATE 25 MG TAB PO SCH (08:48)
[2020-10-09 11:58] LABS: Glucose,Whole Blood 285 mg/dL (75-99)
--- NOTE | 2020-10-09 13:36 | P.PN ---
Subjective This is a pleasant 50-year-old male past medical history significant for diabetes mellitus, hypertension, dyslipidemia, chronic diastolic heart failure and chronic kidney disease. 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 He is seen and examined sitting up in bed in no acute distress. He had a tilt table test yesterday that was positive. He continues to have orthostatic changes. He denies chest pain, shortness of breath, dizziness or palpitations. Blood pressure 107/64 heart rate 85 afebrile and maintaining oxygen saturation on room air. Currently maintained on atorvastatin 40 mg daily, lasix 20 mg BID, lopresor 25 mg BID. Laboratory data reviewed, sodium 138, potassium 4.3, creatinine 1.74. GENERAL: Well-appearing, well-nourished and in no acute distress. NECK: Supple without JVD or thyromegaly. LUNGS: Breath sounds clear to auscultation bilaterally. Respiration equal and unlabored. No wheezes, rales or rhonchi. HEART: Regular rate and rhythm without murmurs, rubs or gallops. S1 and S2 heard. EXTREMITIES: Normal range of motion, no edema. No clubbing or cyanosis. Peripheral pulses intact. Multiple ulcers on the lower extremities. ASSESSMENT chest pain, pleuritic. An acute coronary event has been ruled out. Questionable history of endocarditis 07/2020. Further work-up at determined there was no endocarditis or abscess Diabetes mellitus Hypertension Dyslipidemia Chronic kidney disease Chronic diastolic heart failure, clinically euvolemic PLAN Discontinue lopressor and lasix. Apply FLORA hose. Check for orthostatic changes in the morning. Nurse Practitioner note has been reviewed, I agree with a documented findings and plan of care. Patient was seen and examined. Objective - Vital Signs Vital signs: Vital Signs Temp 97.5 F L 10/09/20 12:00 Pulse 85 10/09/20 12:00 Resp 15 10/09/20 12:00 BP 107/64 10/09/20 12:00 Pulse Ox 98 10/09/20 12:00 Intake & Output 10/08/20 10/09/20 10/09/20 18:59 06:59 18:59 Intake Total 1200 1000 Balance 1200 1000 Weight 89.5 kg Intake: Oral 1200 1000 Other: Voiding Method Toilet Toilet Urinal Urinal # Voids 2 1 # Bowel Movements 1 - Labs CBC & Chem 7: 10/07/20 07:32 10/09/20 07:22 Labs: Abnormal Lab Results - Last 24 Hours (Table) 10/08/20 10/08/20 10/09/20 Range/Units 14:22 20:15 06:28 Sodium 136 L (137-145) mmol/L Potassium 5.5 H (3.5-5.1) mmol/L Carbon Dioxide (22-30) mmol/L BUN 28 H (9-20) mg/dL Creatinine 1.78 H (0.66-1.25) mg/dL Glucose 102 H (74-99) mg/dL POC Glucose (mg/dL) 300 H 122 H (75-99) mg/dL Calcium (8.4-10.2) mg/dL 10/09/20 10/09/20 Range/Units 07:22 11:57 Sodium (137-145) mmol/L Potassium (3.5-5.1) mmol/L Carbon Dioxide 32 H (22-30) mmol/L BUN 30 H (9-20) mg/dL Creatinine 1.74 H (0.66-1.25) mg/dL Glucose 118 H (74-99) mg/dL POC Glucose (mg/dL) 285 H (75-99) mg/dL Calcium 8.1 L (8.4-10.2) mg/dL Microbiology - Last 24 Hours (Table) 10/06/20 08:38 Blood Culture - Preliminary Blood No Growth after 72 hours 10/05/20 07:33 Blood Culture - Preliminary Blood No Growth after 96 hours
--- NOTE | 2020-10-09 14:23 | PN ---
PROGRESS NOTE DATE OF SERVICE: 10/09/2020 REASON FOR FOLLOWUP: Multiple skin lesions with MRSA infection. INTERVAL HISTORY: The patient is currently afebrile, has been breathing comfortably. Denies having any chest pain. No shortness of breath or cough. No abdominal pain. No pain to the lower extremity wound. PHYSICAL EXAMINATION: Blood pressure is 107/64, pulse of 85, temperature 97.5. He is 98% on room air. General description is a middle-aged male up in the bed in no distress. RESPIRATORY SYSTEM: Unlabored breathing, clear to auscultation anteriorly. HEART: S1, S2. Regular rate and rhythm. ABDOMEN: Soft, no tenderness. Legs are currently dressed up. No obvious drainage on the dressing. LABS: BUN of 30, creatinine 1.74. DIAGNOSTIC IMPRESSION AND PLAN: Patient with bilateral extremity multiple wounds with secondary cellulitis, MRSA, on oral clindamycin to continue for about a week and continue with supportive care. MMODL / IJN: [id number] /
--- NOTE | 2020-10-09 14:26 | P.PN ---
Subjective Progress Note Date: 10/09/20 This is a 50-year-old male who was recently admitted with chest pain was also found to have acute renal failure and is being closely monitored. Does have history of chronic kidney disease and diabetes mellitus and patient is maintained on Accu-Cheks before meals and at bedtime uncontrolled blood sugars. Patient continues to have right lower extremity discomfort and continues with oral antibiotics in the form of doxycycline. Infectious disease is following. Patient states he does follow with the wound care clinic in the outpatient setting. Patient states he has been having episodes of fall be tight feeling and weakness in the lower extremities with position changes and standing and neurology was consulted. Tilt table test was ordered and currently pending at this time. Patient underwent CT abdomen chest and pelvis which was negative and also shows the lungs are clear of consolidation with no evidence of pleural effusion or pericardial effusion noted. Blood cultures remain negative. C ultures of the right knee finalized showing MRSA. Patient currently denies any chest pain or shortness of breath. Patient is tolerating diet with no reports of nausea or vomiting noted. PT/OT to evaluate the patient. 10/08/2020 Patient is seen and evaluated in follow-up and continues to have intermittent periods of chest pain and is being closely monitored. Patient underwent tilt table test which per nursing staff was noted to be positive as patient became hypotensive and awaiting for official report. Patient states he continues to have periods of weakness in the lower extremities and feelings of dizziness and fogginess with position changes. Potassium was elevated at 5.5 today and will repeat a.m. labs. A dose of Kayexalate will be given. Creatinine is currently 1.78. Multiple medical consultations following. Patient with multiple wounds healing and non-healing with scabs noted all over upper and lower extremities and mupirocin ordered. Patient is currently maintained on oral antibiotics in the form of clindamycin for MRSA noted on cultures and patient is unable to tolerate vancomycin given worsening kidney functions. Infectious disease is following. 10/09/2020 Patient continues to be extremely orthostatic and is being closely monitored. Cardiology following closely recommending discontinuing Lasix and Lopressor. Patient was maintained on gentle IV hydration for continued elevated creatinine which continues to be elevated with a BUN of 30 and creatinine is 1.74. Potassium was found to be elevated and corrected and is currently 4.3 today with sodium of 138. Blood sugars being closely monitored as they continue to be variable with extreme lows and highs as noted per nursing staff. Patient is maintained on sliding scale along with long acting and will continue to monitor Accu-Cheks before meals and at bedtime. Patient to continue with oral clindamycin due to worsening creatinine and unable to tolerate vancomycin with cultures being positive for MRSA. Infectious disease is following. Patient instructed when getting up to get up slowly and sit on at the side of the bed for 1-2 minutes prior to getting up. Patient underwent tilt table test showing orthostatic hypotension syndrome/dysautonomia and cardiology is following closely. Cardiology recommending close observation for an additional 24 hours to monitor blood pressures and medication changes. Will continue to monitor closely. Review of systems: Constitutional: No reports of fatigue, fever, or chills, reports continued dizziness and visual fogginess with position changes Cardiovascular: No reports of chest pain or palpitations Respiratory: No reports of shortness of breath or cough GI: No reports of nausea, vomiting, or diarrhea : No reports of dysuria or retention Neurovascular: Reports occasional weakness of the lower extremities All medications have been reviewed Active Medications Acetaminophen (Acetaminophen Tab 325 Mg Tab) 650 mg PO Q6HR PRN PRN Reason: Mild Pain or Fever > 100.5 Hydrocodone Bitart/Acetaminophen (Hydrocodone/Apap 5-325mg 1 Each Tab) 1 each PO Q6HR PRN PRN Reason: Pain Albuterol Sulfate (Albuterol Nebulized 2.5 Mg/3 Ml) 2.5 mg INHALATION RT-Q6H PRN PRN Reason: Shortness Of Breath Alprazolam (Alprazolam 0.25 Mg Tab) 0.25 mg PO TID PRN PRN Reason: Anxiety Atorvastatin Calcium (Atorvastatin 40 Mg Tab) 40 mg PO DAILY [facility] Last Admin: 10/09/20 08:45 Dose: 40 mg Documented by: Budesonide/Formoterol Fumarate (Symbicort 80-4.5 Mcg Inhaler) 2 puff INHALATION RT-BID [facility] Last Admin: 10/09/20 07:45 Dose: Not Given Documented by: Clindamycin HCl (Clindamycin 150 Mg Cap) 450 mg PO TID [facility] Last Admin: 10/09/20 08:45 Dose: 450 mg Documented by: Duloxetine HCl (Duloxetine Hcl 60 Mg Capsule.Dr) 60 mg PO DAILY [facility] Last Admin: 10/09/20 08:45 Dose: 60 mg Documented by: Gabapentin (Gabapentin 400 Mg Cap) 800 mg PO TID [facility] Last Admin: 10/09/20 08:45 Dose: 800 mg Documented by: Heparin Sodium (Porcine) (Heparin Sodium,Porcine 5,000 Unit/Ml 1 Ml Vial) 5,000 unit SQ Q12HR [facility] Last Admin: 10/09/20 08:45 Dose: 5,000 unit Documented by: Hydromorphone HCl (Hydromorphone 0.5 Mg/0.5 Ml Syringe) 0.5 mg IVP Q3HR PRN PRN Reason: Moderate Pain Hydromorphone HCl (Hydromorphone 1 Mg/Ml 1 Ml Syringe) 1 mg IVP Q3HR PRN PRN Reason: Severe Pain Insulin Aspart (Insulin Aspart (Novolog) 100 Unit/Ml Vial) 0 unit SQ [facility]; Protocol Last Admin: 10/09/20 12:26 Dose: 5 unit Documented by: Insulin Detemir (Insulin Detemir (Levemir) 100 Unit/Ml Syr) 56 unit SQ [facility] Last Admin: 10/08/20 20:37 Dose: 56 unit Documented by: Ketorolac Tromethamine (Ketorolac 0.5% Ophth Drops 5 Ml Btl) 1 drops RIGHT EYE QID [facility] Last Admin: 10/09/20 12:26 Dose: 1 drops Documented by: Loperamide HCl (Loperamide 2 Mg Cap) 2 mg PO QID PRN PRN Reason: Diarrhea Last Admin: 10/04/20 12:50 Dose: 2 mg Documented by: Mupirocin (Mupirocin 2% Oint 22 Gm Tube) 1 applic TOPICAL TID [facility] Last Admin: 10/09/20 08:47 Dose: 1 applic Documented by: Naloxone HCl (Naloxone 0.4 Mg/Ml 1 Ml Vial) 0.2 mg IV Q2M PRN PRN Reason: Opioid Reversal Nitroglycerin (Nitroglycerin Sl Tabs 0.4 Mg Tab) 0.4 mg SUBLINGUAL Q5M PRN PRN Reason: Chest Pain Patient's Own ( Semaglutide [Ozempic ] 1 Mg/0.75 Ml Pen. Injctr) 1 mg SQ [facility] Last Admin: 10/08/20 09:28 Dose: Not Given Documented by: Ofloxacin (Ofloxacin 0.3% Ophth Drops 5 Ml Bottle) 1 drops RIGHT EYE TID [facility] Last Admin: 10/09/20 08:46 Dose: 1 drops Documented by: Pantoprazole Sodium (Pantoprazole 40 Mg Tablet) 40 mg PO AC-BRKFST [facility] Last Admin: 10/09/20 06:29 Dose: 40 mg Documented by: Potassium Chloride (Potassium Chloride Er 20 Meq Tab.Er) 20 meq PO BID [facility] Last Admin: 10/09/20 08:45 Dose: 20 meq Documented by: Prednisolone Acetate (Prednisolone Acetate 1% Ophth Drops 5 Ml Btl) 1 drops RIGHT EYE QID [facility] Last Admin: 10/09/20 12:26 Dose: 1 drops Documented by: Trazodone HCl (Trazodone Hcl 50 Mg Tab) 150 mg PO HS [facility] Last Admin: 10/08/20 19:55 Dose: 150 mg Documented by: Objective - Vital Signs Vital signs: Vital Signs Temp 97.6 F 10/09/20 08:00 Pulse 89 10/09/20 08:00 Resp 16 10/09/20 08:00 BP 113/60 10/09/20 08:00 Pulse Ox 99 10/09/20 08:00 Intake & Output 10/08/20 10/09/20 10/09/20 18:59 06:59 18:59 Intake Total 1200 1000 Balance 1200 1000 Weight 89.5 kg Intake: Oral 1200 1000 Other: Voiding Method Toilet Toilet Urinal Urinal # Voids 2 1 # Bowel Movements 1 - Exam Gen: This is a 50-year-old male awake, alert and oriented 3, well-developed, well-nourished. Temp is 97.6F, pulse is 89, respirations are 16, blood pressure is 113/60 and oxygen saturation is 99% on room air. HEENT: Head is atraumatic, normocephalic. Pupils equal, round. Sclerae is anicteric. NECK: Supple. No JVD. No lymphadenopathy. No thyromegaly. LUNGS: Diminished breath sounds with some scattered rhonchi noted. No intercostal retractions. HEART: S1, S2 are muffled ABDOMEN: Soft. Bowel sounds are present. No masses. No tenderness. EXTREMITIES: No pedal edema. No calf tenderness. Multiple wounds healing and nonhealing with multiple scabs noted to bilateral upper and lower extremities with ulceration noted on the right leon NEUROLOGICAL: Patient is awake, alert and oriented x3. Diffusely weak - Labs CBC & Chem 7: 10/07/20 07:32 10/09/20 07:22 Labs: Abnormal Lab Results - Last 24 Hours (Table) 10/06/20 10/08/20 10/08/20 Range/Units 08:38 11:55 14:22 Sodium 136 L (137-145) mmol/L Potassium 5.5 H (3.5-5.1) mmol/L Carbon Dioxide (22-30) mmol/L BUN 28 H (9-20) mg/dL Creatinine 1.78 H (0.66-1.25) mg/dL Glucose 102 H (74-99) mg/dL POC Glucose (mg/dL) 177 H (75-99) mg/dL Calcium (8.4-10.2) mg/dL RBC Folate 1,028 H (280 - 791) ng/mL 10/08/20 10/09/20 10/09/20 Range/Units 20:15 06:28 07:22 Sodium (137-145) mmol/L Potassium (3.5-5.1) mmol/L Carbon Dioxide 32 H (22-30) mmol/L BUN 30 H (9-20) mg/dL Creatinine 1.74 H (0.66-1.25) mg/dL Glucose 118 H (74-99) mg/dL POC Glucose (mg/dL) 300 H 122 H (75-99) mg/dL Calcium 8.1 L (8.4-10.2) mg/dL RBC Folate (280 - 791) ng/mL Microbiology - Last 24 Hours (Table) 10/06/20 08:38 Blood Culture - Preliminary Blood No Growth after 72 hours 10/05/20 07:33 Blood Culture - Preliminary Blood No Growth after 96 hours Assessment and Plan Assessment: Chest pain possible unstable angina, present on admission Orthostatic hypotension syndrome/dysautonomia as noted on tilt table test Weakness of the legs, rule out TIA Acute renal failure with prerenal acute tubular necrosis Chronic kidney disease, stage III, baseline 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 treated with daptomycin for 4 weeks from [facility] Multiple areas of cellulitis on the right side, upper and lower limbs, possibly from MRSA Hyponatremia anemia, microcytic Relative hypotension History of congestive heart failure, ejection fraction 50-55% with chronic diastolic dysfunction MRSA bacteremia previously History of diabetes mellitus type 2 Hypertension hyperlipidemia History of bilateral peripheral neuropathy history of gout history of cholecystectomy History of anxiety Remote history of nicotine dependence Full code Recommendations and discussion: Recommend to continue with current medications, management, and symptomatic treatment. PT/OT following. Patient continues to have lower extremity weakness and dizziness intermittently when getting up. Patient tilt table test positive for orthostatic hypotension syndrome/dysautonomia. Cardiology following recommending close observation for an additional 24 hours and Lasix and metoprolol have been discontinued. IV fluids discontinued as well. Creatinine continues to be elevated at 1.74 today. Continue with close monitoring of vital signs and continue with orthostatic blood pressures. Patient is maintained on oral clindamycin and will continue and infectious disease is following. Continue to monitor blood sugars before meals and at bedtime and treat accordingly with long-acting along with sliding scale. Given multiple complex medical issues, prognosis is guarded. Further recommendations to follow. Anticipate discharge in 24 hours.
--- NOTE | 2020-10-09 15:53 | P.PN ---
Subjective Progress Note Date: 10/09/20 She was seen at bedside and he stated that he is doing well. He denies any further episodes of feeling weakness of her lower extremity or having the any falls. He feels much better today compared to the his initial presentation. I was notified by the nurse that the cardiology stopped Lasix as well as met oprolol. He had a tilt table test on 10/08/2020 through reported as normal tall lead EKG. It showed orthostatic hypotension syndrome/dysautonomia. In the body it is documented as baseline blood pressure is 160/85 mmHg and the heart rate was 86 beats a minute. The patient was tilted upright at an angle of 70 per protocol then there is immediate drop in blood pressure to 97/57 without any change in heart rate he complained of blurring of the vision and feeling weak in his legs. It is noted in the cardiology note Questionable history of endocarditis 07/2020. Further work-up at [facility] determined there was no endocarditis or abscess. Objective - Vital Signs Vital signs: Vital Signs Temp 97.5 F L 10/09/20 12:00 Pulse 85 10/09/20 12:00 Resp 15 10/09/20 12:00 BP 107/64 10/09/20 12:00 Pulse Ox 98 10/09/20 12:00 Intake & Output 10/08/20 10/09/20 10/09/20 18:59 06:59 18:59 Intake Total 1200 1000 660 Balance 1200 1000 660 Weight 89.5 kg Intake: Oral 1200 1000 660 Other: Voiding Method Toilet Toilet Urinal Urinal # Voids 2 1 2 # Bowel Movements 1 1 - Exam GENERAL: The patient is lying in bed and is not in acute distress. INTEGUMENTARY: Has different ertyhematous somewhat circular skin lesion on the right lower extremity (from scratching) leading to infection (Per nurse has MRSA). NEUROLOGICAL: Higher mental function: The patient is awake, alert, oriented to self, place and time. Patient is following commands. No aphasia and no neglect. Cranial nerves: The pupils are round, equal and reactive to light and accommodation. Visual manzo are full to confrontation throughout. Extraocular movement is intact no nystagmus is noted. Facial sensation is normal to touch throughout. The facial strength is normal throughout. Hearing is normal bilaterally to hand rub. Tongue is midline and moved [id number] without any difficulty. No dysarthria is noted. Shoulder shrug is normal bilaterally. Motor: Gait is normal with normal arms swings. The strength is 5 over 5 throughout. Normal tone and bulk. Cerebellum: Normal finger to nose bilaterally. Sensation: Sensation is normal to touch throughout. Reflexes (right/left): 1+ throughout except ankles are 0+ bilaterally and patellar are 0-1 bilaterally. Plantars are downgoing bilaterally. - Labs CBC & Chem 7: 10/07/20 07:32 10/09/20 07:22 Labs: Abnormal Lab Results - Last 24 Hours (Table) 10/08/20 10/09/20 10/09/20 Range/Units 20:15 06:28 07:22 Carbon Dioxide 32 H (22-30) mmol/L BUN 30 H (9-20) mg/dL Creatinine 1.74 H (0.66-1.25) mg/dL Glucose 118 H (74-99) mg/dL POC Glucose (mg/dL) 300 H 122 H (75-99) mg/dL Calcium 8.1 L (8.4-10.2) mg/dL 10/09/20 Range/Units 11:57 Carbon Dioxide (22-30) mmol/L BUN (9-20) mg/dL Creatinine (0.66-1.25) mg/dL Glucose (74-99) mg/dL POC Glucose (mg/dL) 285 H (75-99) mg/dL Calcium (8.4-10.2) mg/dL Microbiology - Last 24 Hours (Table) 10/06/20 08:38 Blood Culture - Preliminary Blood No Growth after 72 hours 10/05/20 07:33 Blood Culture - Preliminary Blood No Growth after 96 hours Assessment and Plan Assessment: This is a 50-year-old gentleman multiple medical problems that presented to the emergency department on 10/03/2020 for chest discomfort in the left upper quadrant and having pain with inspiration. During the hospital stay, had episodes of hypotensive and the systolic was ranging between 70 to 90s while diastolic was ranging between 40s to 50s as well as the patient the has brittle diabetes and the last serum glucose was 65 on 10/06/2020. Autonomic dysfunction / Orthostatic hypotension (with positive tilt table test) Generalized weakness due to multifactorial: Episodes of hypotensive, brittle diabetes with episode of mild hypoglycemia not that significant and seems autonomic dysfunction especially with uncontrolled diabetes Diabetic peripheral neuropathy Cellulitis (MRSA) Brittle sugar Uncontrolled diabetes who is insulin dependent Episodes of hypotension---resolved Acute on chronic kidney insufficiency Hyperlipidemia Heart failure with preserved ejection fraction Questionable history of endocarditis 07/2020. Further work-up at [facility] determined there was no endocarditis or abscess. Hypertension Plan: * Patient orthostatic on 10/06/2020 at around 17:57 is supine is 140/62 with a heart rate of 87 sitting is 141/68 with a heart rate of 88 and standing is a 130/69 with a heart rate of 87. Therefore this is negative for orthostatic hypotension. * CT of the head on 10/05/2020 is reported as no acute intracranial hemorrhage or midline shift is seen. * Patient had another CT of the head on 10/06/2020 for weakness and was reported as no acute intracranial process. * Tilt table test on 10/08/2020 through reported as normal tall lead EKG. It showed orthostatic hypotension syndrome/dysautonomia. In the body it is documented as baseline blood pressure is 160/85 mmHg and the heart rate was 86 beats a minute. The patient was tilted upright at an angle of 70 per protocol then there is immediate drop in blood pressure to 97/57 without any change in heart rate he complained of blurring of the vision and feeling weak in his legs. * 2-D echo was reported as left ventricular size is normal as well as the wall thickness is normal. Ejection fraction of 55%. Normal left atrial size. * TSH is 1.23 which is considered normal. * AST is 32 and ALT is 30. * Vitamin B12 level: 741 (normal). Folate and Vitamin B6 are pending. * Cardiology team stopped Lopressor as well as Lasix and the the patient will be wearing FLORA hose per cardiology team. * Regarding that this autonomic dysfunction/orthostatic hypotension patient needs to follow-up with a cardiology team as well as neurology team as an outpatient. * Recommend better control of the diabetes. * Physical therapy and occupation therapy are consulted. * The patient is on gabapentin 800 mg 1 tablet 3 times a day for his peripheral neuropathy. * The patient is on Cymbalta 60 mg daily * The patient is on opiates and Xanax. I recommend avoiding pain medications and benzos medication as much as possible. * Reason avoid any further hypotensive episode as well as hypoglycemic episode which can cause generalized weakness as well as falls and we will defer the management to the primary team. * I recommended the patient follows up with a neurologist as an outpatient within 2 weeks. * Infection disease is on board. * Will defer the rest of the medical management to the primary team. There is no further neurological work-up needed. Franklin Long M.D. Neuro-hospitalist Time with Patient: Less than 30
[2020-10-09 17:07] LABS: Glucose,Whole Blood 237 mg/dL (75-99)
[2020-10-09 20:55] LABS: Glucose,Whole Blood 317 mg/dL (75-99)
[2020-10-09] MEDS: traZODone HCL 50 MG TAB PO SCH (21:20)
[2020-10-09] MEDS: INSULIN DETEMIR (LEVEMIR) 100 UNIT/ML SYR SQ SCH (21:20)
[2020-10-10 06:20] LABS: Glucose,Whole Blood 132 mg/dL (75-99)
[2020-10-10] MEDS: PANTOPRAZOLE 40 MG TABLET PO SCH (06:24)
[2020-10-10] MEDS: INSULIN ASPART (NovoLOG) 100 UNIT/ML VIAL SQ SCH ×4 (06:24→20:56)
[2020-10-10] MEDS: SYMBICORT 80-4.5 MCG INHALER INHALATION SCH ×2 (07:54→19:28)
[2020-10-10] MEDS: POTASSIUM CHLORIDE ER 20 MEQ TAB.ER PO SCH ×2 (09:52→20:55)
[2020-10-10] MEDS: ATORVASTATIN 40 MG TAB PO SCH (09:52)
[2020-10-10] MEDS: GABAPENTIN 400 MG CAP PO SCH ×3 (09:53→20:55)
[2020-10-10] MEDS: DULoxetine HCL 60 MG CAPSULE.DR PO SCH (09:53)
[2020-10-10] MEDS: CLINDAMYCIN 150 MG CAP PO SCH ×3 (09:53→20:55)
[2020-10-10] MEDS: HEPARIN SODIUM,PORCINE 5,000 UNIT/ML 1 ML VIAL SQ SCH ×2 (09:53→20:56)
[2020-10-10] MEDS: MUPIROCIN 2% OINT 22 GM TUBE TOPICAL SCH ×3 (09:54→20:57)
[2020-10-10] MEDS: OFLOXACIN 0.3% OPHTH DROPS 5 ML BOTTLE RIGHT EYE SCH ×3 (09:54→20:56)
[2020-10-10] MEDS: prednisoLONE ACETATE 1% OPHTH DROPS 5 ML BTL RIGHT EYE SCH ×4 (09:54→20:56)
[2020-10-10] MEDS: KETOROLAC 0.5% OPHTH DROPS 5 ML BTL RIGHT EYE SCH ×4 (09:54→20:56)
[2020-10-10 11:43] LABS: Glucose,Whole Blood 264 mg/dL (75-99)
--- NOTE | 2020-10-10 14:35 | P.PN ---
Subjective Progress Note Date: 10/10/20 The patient was interviewed and examined sitting comfortably on the side of the bed. He states overall he feels as though he has improved since discontinuing his diuretic. He denies any chest pain or chest pressure. No shortness of breath, palpitations, dizziness, or lightheadedness. His blood pressure did drop on orthostatic pressures yesterday. GENERAL: Well-appearing, well-nourished and in no acute distress. NECK: Supple without JVD or thyromegaly. LUNGS: Breath sounds clear to auscultation bilaterally. Respiration equal and unlabored. No wheezes, rales or rhonchi. HEART: Regular rate and rhythm without murmurs, rubs or gallops. S1 and S2 heard. EXTREMITIES: Normal range of motion, no edema. No clubbing or cyanosis. Multiple ulcers on the lower extremities. Compression socks in place. 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 Plan of care has been reviewed and agreed upon by Dr Rodriguez. Objective - Vital Signs Vital signs: Vital Signs Temp 98.1 F 10/10/20 08:00 Pulse 98 10/10/20 12:00 Resp 18 10/10/20 12:00 BP 132/75 10/10/20 12:00 Pulse Ox 98 10/10/20 12:00 Intake & Output 10/09/20 10/10/20 10/10/20 18:59 06:59 18:59 Intake Total 1260 480 840 Balance 1260 480 840 Weight 89.5 kg Intake: Oral 1260 480 840 Other: Voiding Method Toilet Urinal # Voids 2 2 2 # Bowel Movements 1 - Labs CBC & Chem 7: 10/07/20 07:32 10/09/20 07:22 Labs: Abnormal Lab Results - Last 24 Hours (Table) 10/09/20 10/09/20 10/10/20 Range/Units 16:55 20:54 06:19 POC Glucose (mg/dL) 237 H 317 H 132 H (75-99) mg/dL 10/10/20 Range/Units 11:41 POC Glucose (mg/dL) 264 H (75-99) mg/dL Microbiology - Last 24 Hours (Table) 10/06/20 08:38 Blood Culture - Preliminary Blood No Growth after 96 hours 10/05/20 07:33 Blood Culture - Preliminary Blood No Growth after 120 hours
[2020-10-10 16:48] LABS: Glucose,Whole Blood 294 mg/dL (75-99)
--- NOTE | 2020-10-10 18:45 | PN ---
PROGRESS NOTE DATE OF SERVICE: 10/10/2020 REASON FOR FOLLOWUP: Multiple lower extremity skin wound secondary to MRSA infection. INTERVAL HISTORY: Patient is currently afebrile. Patient is breathing comfortably. Denies having any chest pain. No shortness of breath. No abdominal pain or any worsening pain to his leg wound area. PHYSICAL EXAMINATION: Blood pressure 132/75 with a pulse of 98, temperature 98.1. He is 98% on room air. General description is a middle-aged male lying in bed in no distress. Respiratory system: Unlabored breathing, clear to auscultation anteriorly. Heart S1, S2. Regular rate and rhythm. Abdomen soft, no tenderness. Leg wounds are currently dressed. No drainage on the dressing. LABS: No new labs have been obtained today. DIAGNOSTIC IMPRESSION AND PLAN: Patient with multiple lower extremity wounds with secondary cellulitis. Culture positive for MRSA. Patient is covered with clindamycin. Local care with dry Aquacel dressing and close outpatient followup in [facility] on discharge. MMODL / IJN: [id number] /
[2020-10-10 20:05] LABS: Glucose,Whole Blood 311 mg/dL (75-99)
--- NOTE | 2020-10-10 20:39 | PN ---
PROGRESS NOTE DATE OF SERVICE: 10/10/2020. This 50-year-old gentleman who was admitted with chest pain also had multiple medical issues including orthostatic hypotension. Cardiology following the patient closely and as well as Neurology. The blood sugar is elevated. No chest pain. No palpitations. No fever. PHYSICAL EXAMINATION: Alert and oriented times three. Pulse 101, blood pressure 125/60, respiration 18, temperature is 98.1, pulse ox 98% on room air. HEENT: Conjunctivae normal. NECK: No JVD. CARDIOVASCULAR: S1, S2 muffled. RESPIRATORY: Breath sounds diminished in the bases. No rhonchi. No crackles. ABDOMEN: Soft, nontender. LEGS are no edema. No swelling. NERVOUS SYSTEM: No focal deficits. LABS: Hemoglobin 9.9, sodium 130, potassium 4.3. ASSESSMENT: 1. Chest pain possible unstable angina, present on admission. 2. Orthostatic hypotension possible dysautonomia. Positive tilt-table test. 3. Weakness of the legs, rule out transient ischemic attack. 4. Acute renal failure with acute prerenal acute tubular necrosis. 5. Chronic kidney stage 3 baseline. 6. History of recent endocarditis with aortic root abscess with aortic regurgitation, treated with daptomycin for 4 weeks at [facility]. 7. Multiple areas of cellulitis of the right side, upper and lower limbs, possibly from MRSA. 8. Hyponatremia. 9. Anemia microcytic. 10.Relative hypotension. 11.Congestive heart failure, ejection fraction 50% to 55% with chronic diastolic dysfunction. 12.History of diabetes type 2. 13.Hypertension. 14.Hyperlipidemia. 15.History of bilateral peripheral neuropathy. 16.History of gout. 17.History of cholecystectomy. 18.Anxiety. 19.Remote history of nicotine dependence. 20.FULL CODE. RECOMMENDATIONS AND DISCUSSION: Recommend to continue current medications, monitoring, symptomatic treatment. Otherwise, at this time, I will recommend repeat labs. Continue the rest of the medications. Continue the antibiotics per Dr. Milligan. The patient is on clindamycin. Guarded prognosis. Further recommendations to follow. MMODL / IJN: [id number] /
[2020-10-10] MEDS: traZODone HCL 50 MG TAB PO SCH (20:55)
[2020-10-10] MEDS: INSULIN DETEMIR (LEVEMIR) 100 UNIT/ML SYR SQ SCH (20:56)
[2020-10-11 06:38] LABS: Glucose,Whole Blood 138 mg/dL (75-99)
[2020-10-11] MEDS: INSULIN ASPART (NovoLOG) 100 UNIT/ML VIAL SQ SCH ×4 (06:46→21:04)
[2020-10-11] MEDS: PANTOPRAZOLE 40 MG TABLET PO SCH (06:46)
[2020-10-11 07:06] LABS: Basophils # (A) 0.1 k/uL (0-0.2); Basophils % (A) 1 %; Eosinophils # (A) 0.3 k/uL (0-0.7); Eosinophils % (A) 6 %; HCT 27.9 % (39.0-53.0); HGB 9.6 gm/dL (13.0-17.5); Lymphocytes # (A) 1.4 k/uL (1.0-4.8); Lymphocytes % (A) 25 %; MCH 28.3 pg (25.0-35.0); MCHC 34.4 g/dL (31.0-37.0); MCV 82.2 fL (80.0-100.0); Mean Platelet Volume 8.5; Monocytes # (A) 0.4 k/uL (0-1.0); Monocytes % (A) 7 %; Neutrophils # (A) 3.4 k/uL (1.3-7.7); Neutrophils % (A) 59 %; Platelet Count 202 k/uL (150-450); RBC 3.39 m/uL (4.30-5.90); RDW 14.7 % (11.5-15.5); WBC 5.7 k/uL (3.8-10.6)
[2020-10-11 07:18] LABS: Calcium 8.7 mg/dL (8.4-10.2); Potassium 4.6 mmol/L (3.5-5.1)
[2020-10-11] MEDS: SYMBICORT 80-4.5 MCG INHALER INHALATION SCH ×2 (08:01→20:27)
[2020-10-11] MEDS: GABAPENTIN 400 MG CAP PO SCH ×3 (09:36→21:04)
[2020-10-11] MEDS: POTASSIUM CHLORIDE ER 20 MEQ TAB.ER PO SCH (09:36)
[2020-10-11] MEDS: CLINDAMYCIN 150 MG CAP PO SCH ×3 (09:37→21:03)
[2020-10-11] MEDS: HEPARIN SODIUM,PORCINE 5,000 UNIT/ML 1 ML VIAL SQ SCH ×2 (09:37→21:04)
[2020-10-11] MEDS: ATORVASTATIN 40 MG TAB PO SCH (09:37)
[2020-10-11] MEDS: DULoxetine HCL 60 MG CAPSULE.DR PO SCH (09:37)
[2020-10-11] MEDS: prednisoLONE ACETATE 1% OPHTH DROPS 5 ML BTL RIGHT EYE SCH ×4 (09:38→21:05)
[2020-10-11] MEDS: KETOROLAC 0.5% OPHTH DROPS 5 ML BTL RIGHT EYE SCH ×4 (09:38→21:05)
[2020-10-11] MEDS: OFLOXACIN 0.3% OPHTH DROPS 5 ML BOTTLE RIGHT EYE SCH ×3 (09:38→21:05)
[2020-10-11] MEDS: MUPIROCIN 2% OINT 22 GM TUBE TOPICAL SCH ×3 (09:39→21:15)
--- NOTE | 2020-10-11 10:47 | P.PN ---
Subjective Progress Note Date: 10/11/20 Stated that he can use to be doing well. Denies off any further weakness of lower extremities. Denies any further episodes of falls. Patient stated that for the past 3 days he has been feeling much better and denies any further episodes of light-headedness upon standing up or walking. He denies of any lower back pain or urinary or bowel incontinence. Deneis of any focal weakness. Patient most recent orthostatic on 10/10/2020 at 2000 shows that the blood pressure supine is 181/87 with a heart rate of 101; sitting is 161/73 with a heart rate of 102 and standing is a blood pressure of 136/63 with a heart rate of 103 which is consistent with orthostatic hypotension. Objective - Vital Signs Vital signs: Vital Signs Temp 98.4 F 10/11/20 03:25 Pulse 97 10/11/20 03:25 Resp 17 10/11/20 03:25 BP 119/62 10/11/20 03:25 Pulse Ox 98 10/11/20 03:25 Intake & Output 10/10/20 10/11/20 10/11/20 18:59 06:59 18:59 Intake Total 1320 540 360 Balance 1320 540 360 Weight 88 kg Intake: Oral 1320 540 360 Other: Voiding Method Toilet Urinal # Voids 2 1 - Exam GENERAL: The patient is lying in bed and is not in acute distress. INTEGUMENTARY: Has different ertyhematous somewhat circular skin lesion on the right lower extremity (from scratching) leading to infection (Per nurse has MRSA). NEUROLOGICAL: Higher mental function: The patient is awake, alert, oriented to self, place and time. Patient is following commands. No aphasia and no neglect. Cranial nerves: The pupils are round, equal and reactive to light and accommodation. Visual manzo are full to confrontation throughout. Extraocular movement is intact no nystagmus is noted. Facial sensation is normal to touch throughout. The facial strength is normal throughout. Hearing is normal bilaterally to hand rub. Tongue is midline and moved [id number] without any difficulty. No dysarthria is noted. Shoulder shrug is normal bilaterally. Motor: Gait is normal with normal arms swings. The strength is 5 over 5 throughout. Normal tone and bulk. Cerebellum: Normal finger to nose bilaterally. Sensation: Sensation is normal to touch throughout. Reflexes (right/left): 1+ throughout except ankles are 0+ bilaterally and patellar are 0-1 bilaterally. Plantars are downgoing bilaterally. - Labs CBC & Chem 7: 10/11/20 06:41 10/11/20 06:41 Labs: Abnormal Lab Results - Last 24 Hours (Table) 10/10/20 10/10/20 10/10/20 Range/Units 11:41 16:46 20:03 RBC (4.30-5.90) m/uL Hgb (13.0-17.5) gm/dL Hct (39.0-53.0) % Carbon Dioxide (22-30) mmol/L BUN (9-20) mg/dL Creatinine (0.66-1.25) mg/dL Glucose (74-99) mg/dL POC Glucose (mg/dL) 264 H 294 H 311 H (75-99) mg/dL 10/11/20 10/11/20 10/11/20 Range/Units 06:37 06:41 06:41 RBC 3.39 L (4.30-5.90) m/uL Hgb 9.6 L (13.0-17.5) gm/dL Hct 27.9 L (39.0-53.0) % Carbon Dioxide 31 H (22-30) mmol/L BUN 31 H (9-20) mg/dL Creatinine 1.59 H (0.66-1.25) mg/dL Glucose 116 H (74-99) mg/dL POC Glucose (mg/dL) 138 H (75-99) mg/dL Microbiology - Last 24 Hours (Table) 10/06/20 08:38 Blood Culture - Preliminary Blood No Growth after 96 hours 10/05/20 07:33 Blood Culture - Preliminary Blood No Growth after 120 hours Assessment and Plan Assessment: This is a 50-year-old gentleman multiple medical problems that presented to the emergency department on 10/03/2020 for chest discomfort in the left upper quadrant and having pain with inspiration. During the hospital stay, had episodes of hypotensive and the systolic was ranging between 70 to 90s while diastolic was ranging between 40s to 50s as well as the patient the has brittle diabetes and the last serum glucose was 65 on 10/06/2020. Orthostatic hypotension/Dysautonomia (with positive tilt table test) Generalized weakness due to multifactorial: Episodes of hypotensive, brittle diabetes with episode of mild hypoglycemia not that significant and seems autonomic dysfunction especially with uncontrolled diabetes Diabetic peripheral neuropathy Cellulitis (MRSA) Brittle sugar Uncontrolled diabetes who is insulin dependent Episodes of hypotension---resolved Acute on chronic kidney insufficiency Hyperlipidemia Heart failure with preserved ejection fraction Questionable history of endocarditis 07/2020. Further work-up at [facility] determined there was no endocarditis or abscess. Hypertension Plan: * Patient orthostatic on 10/06/2020 at around 17:57 is supine is 140/62 with a heart rate of 87 sitting is 141/68 with a heart rate of 88 and standing is a 130/69 with a heart rate of 87. Therefore this is negative for orthostatic hypotension. * CT of the head on 10/05/2020 is reported as no acute intracranial hemorrhage or midline shift is seen. * Patient had another CT of the head on 10/06/2020 for weakness and was reported as no acute intracranial process. * Tilt table test on 10/08/2020 through reported as normal tall lead EKG. It sh owed orthostatic hypotension syndrome/dysautonomia. In the body it is documented as baseline blood pressure is 160/85 mmHg and the heart rate was 86 beats a minute. The patient was tilted upright at an angle of 70 per protocol then there is immediate drop in blood pressure to 97/57 without any change in heart rate he complained of blurring of the vision and feeling weak in his legs. * 2-D echo was reported as left ventricular size is normal as well as the wall thickness is normal. Ejection fraction of 55%. Normal left atrial size. * TSH is 1.23 which is considered normal. * AST is 32 and ALT is 30. * Vitamin B12 level: 741 (normal). Folate and Vitamin B6 are pending. * Cardiology team stopped Lopressor as well as Lasix and the the patient will be wearing FLORA hose per cardiology team. * Regarding that this autonomic Orthostatic hypotension. His most recent orthostatic on 10/10/2019 1 at night was positive. Consider midodrine (2.5mg q8 hours then titrate up if needed) vs Fludrcortisone (0.1mg 1 tab bid) versus salt tablets. I spoke with Cardiology team and will start him on salt tablets since his blood pressure is elevated currently. * Recommend better control of the diabetes. * Physical therapy and occupation therapy are consulted. * The patient is on gabapentin 800 mg 1 tablet 3 times a day for his peripheral neuropathy. * The patient is on Cymbalta 60 mg daily * The patient is on opiates and Xanax. I recommend avoiding pain medications and benzos medication as much as possible. * Reason avoid any further hypotensive episode as well as hypoglycemic episode which can cause generalized weakness as well as falls and we will defer the management to the primary team. * I recommended the patient follows up with a neurologist as an outpatient withi n 2 weeks. * Infection disease is on board. * Will defer the rest of the medical management to the primary team. From the neurology perspective will follow sporadically if he continues to be in the hospital. Dr. Cerda will start coverage tomorrow for neurology service. Franklin Long M.D. Neuro-hospitalist Time with Patient: Less than 30
[2020-10-11 11:46] LABS: Glucose,Whole Blood 250 mg/dL (75-99)
--- NOTE | 2020-10-11 13:24 | P.PN ---
Subjective Progress Note Date: 10/11/20 The patient was interviewed and examined sitting comfortably on the side of the bed. He states he feels well. He did have one episode of dizziness in the bathroom last night when having a bowel movement. He denies any chest pain or chest pressure. No shortness of breath or palpitations. GENERAL: Well-appearing, well-nourished and in no acute distress. NECK: Supple without JVD or thyromegaly. LUNGS: Breath sounds clear to auscultation bilaterally. Respiration equal and unlabored. No wheezes, rales or rhonchi. HEART: Regular rate and rhythm without murmurs, rubs or gallops. S1 and S2 heard. EXTREMITIES: Normal range of motion, no edema. No clubbing or cyanosis. Multiple ulcers on the lower extremities. Compression socks in place. VITALS: Orthostatic blood pressures last evening showed supine hypertension at 181/87 with drop in blood pressure to 161/73 sitting, and then 136/63 standing. Similar readings this morning. 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 #3 orthostatic hypotension, positive tilt table test #4 dyslipidemia #5 chronic kidney disease, improving #6 chronic diastolic heart failure, currently euvolemic PLAN: Start patient on captopril 12.5 mg at at bedtime for nocturnal supine hypertension Continue to avoid diuretics Do not recommend Florinef or sodium tablets for orthostatic blood pressure changes as he has supine hypertension; consider Midodrine only for symptomatic orthostatic changes in blood pressure Aggressive diabetes management Continue compression socks and encourage adequate hydration The patient has been seen and evaluated. Plan of care has been reviewed and agreed upon by Dr Rodriguez. Objective - Vital Signs Vital signs: Vital Signs Temp 98.1 F 10/11/20 08:00 Pulse 101 H 10/11/20 08:00 Resp 18 10/11/20 08:00 BP 133/67 10/11/20 08:00 Pulse Ox 99 10/11/20 08:00 Intake & Output 10/10/20 10/11/20 10/11/20 18:59 06:59 18:59 Intake Total 1320 540 360 Balance 1320 540 360 Weight 88 kg Intake: Oral 1320 540 360 Other: Voiding Method Toilet Urinal # Voids 2 1 - Labs CBC & Chem 7: 10/11/20 06:41 10/11/20 06:41 Labs: Abnormal Lab Results - Last 24 Hours (Table) 10/10/20 10/10/20 10/11/20 Range/Units 16:46 20:03 06:37 RBC (4.30-5.90) m/uL Hgb (13.0-17.5) gm/dL Hct (39.0-53.0) % Carbon Dioxide (22-30) mmol/L BUN (9-20) mg/dL Creatinine (0.66-1.25) mg/dL Glucose (74-99) mg/dL POC Glucose (mg/dL) 294 H 311 H 138 H (75-99) mg/dL 10/11/20 10/11/20 10/11/20 Range/Units 06:41 06:41 11:45 RBC 3.39 L (4.30-5.90) m/uL Hgb 9.6 L (13.0-17.5) gm/dL Hct 27.9 L (39.0-53.0) % Carbon Dioxide 31 H (22-30) mmol/L BUN 31 H (9-20) mg/dL Creatinine 1.59 H (0.66-1.25) mg/dL Glucose 116 H (74-99) mg/dL POC Glucose (mg/dL) 250 H (75-99) mg/dL Microbiology - Last 24 Hours (Table) 10/06/20 08:38 Blood Culture - Preliminary Blood No Growth after 120 hours 10/05/20 07:33 Blood Culture - Final Blood No Growth after 144 hours
--- NOTE | 2020-10-11 14:36 | P.PN ---
Progress Note - Text Discussed management plan with patient's nurse and nurse practitioner Patient has severe uncontrolled diabetes with diabetic neuropathy and autonomic dysfunction He has severe supine hypertension and evidence of dysautonomia/orthostatic hypotension syndrome We stopped his Lasix and metoprolol This resulted in improvement in symptoms but his nocturnal, supine hypertension and orthostatic drop persisted However he is asymptomatic from this orthostatic drop At this time I would avoid salt, salt tablets a Florinef since this would exac erbate supine hypertension and increase nocturnal natriuresis and exacerbate a.m. orthostatic changes The role of Midrin is only symptomatic and during waking hours him a when patient is upright. If he has asymptomatic from his orthostatic hypotension then there is no clear role for Midrin He is a diabetic and needs garrison inhibitors He also needs better blood pressure control to blunt the supine hypertension I will start him on captopril once daily in the evening at about 9 PM only. Once a day captopril timed at 9 PM to counteract supine hypertension Orthostatic blood pressure check tomorrow morning
--- NOTE | 2020-10-11 14:57 | PN ---
PROGRESS NOTE DATE OF SERVICE: 10/11/2020. This 50-year-old gentleman was admitted chest pain, possible unstable angina, also had orthostatic hypotension. The patient being closely monitored. No chest pain. No palpitations. No fever. PHYSICAL EXAMINATION: The patient is alert and oriented times three. Pulse 100. Blood pressure is 156/70, respiration 18, temp 98.1, pulse ox 99% on room air. HEENT: Conjunctivae normal. NECK: No JVD. CARDIOVASCULAR: S1, S2 muffled. RESPIRATION: Breath sounds diminished in the bases. No rhonchi. No crackles. ABDOMEN: Soft. Nontender. LEGS are no edema. No swelling. NERVOUS SYSTEM: No focal deficits. LABS: Hemoglobin 9.6 and creatinine is 1.59. ASSESSMENT: 1. Chest pain possible unstable angina, present on admission. 2. Orthostatic hypotension possible dysautonomia possible tilt table test. 3. Weakness of the legs, rule out transient ischemic attack. 4. Acute renal failure with acute prerenal tubular necrosis. 5. Chronic kidney stage 3 baseline. 6. 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 7. Multiple areas of cellulitis of the right side, upper and lower limbs, possibly from MRSA. 8. Hyponatremia. 9. Anemia microcytic. 10.Relative hypotension. 11.Congestive heart failure with ejection fraction 50-55 percent with chronic diastolic dysfunction. 12.History of diabetes type 2. 13.Hypertension. 14.Hyperlipidemia. 15.History of bilateral peripheral neuropathy. 16.History of gout. 17.History of cholecystectomy. 18.Anxiety. 19.Remote history of nicotine dependence. 20.FULL CODE. RECOMMENDATIONS AND DISCUSSION: In this 50-year-old gentleman who presented with multiple complex medical issues, we will monitor the patient closely, continue the current medications, continue symptomatic treatment. Continue to check orthostatic vitals. Otherwise, continue the rest of medications. Blood culture negative for 5 days. Closely follow with Cardiology. Further recommendations to follow. MMODL / IJN: [id number] /
[2020-10-11 16:47] LABS: Glucose,Whole Blood 263 mg/dL (75-99)
[2020-10-11 20:23] LABS: Glucose,Whole Blood 313 mg/dL (75-99)
[2020-10-11] MEDS: INSULIN DETEMIR (LEVEMIR) 100 UNIT/ML SYR SQ SCH (21:03)
[2020-10-11] MEDS: traZODone HCL 50 MG TAB PO SCH (21:04)
--- NOTE | 2020-10-11 23:04 | PN ---
PROGRESS NOTE DATE OF SERVICE: 10/11/2020 REASON FOR FOLLOWUP: Bilateral lower extremity wound and cellulitis. INTERVAL HISTORY: Patient is currently afebrile, breathing comfortably. Denies any chest pain, cough, abdominal pain, or any worsening lower extremity wound area. PHYSICAL EXAMINATION: Blood pressure 166/79 with a pulse of 90, temperature 98.1. She is 97% on room air. General description: The patient is a middle-aged male lying in bed in no distress. Respiratory system: Unlabored breathing, clear to auscultation anteriorly. Heart S1, S2. Regular rate and rhythm. ABDOMEN: Soft. No tenderness. LEGS: Wounds currently no significant redness or drainage. LABS: Hemoglobin is 9.8, white count 5.7, BUN of 31, creatinine 1.59. DIAGNOSTIC IMPRESSION AND PLAN: Patient with bilateral lower extremity wound with cellulitis. Culture positive for MRSA. Patient on oral clindamycin. Local care with dry Aquacel silver dressing and followup [facility]. MMODL / IJN: [id number] /
[2020-10-12 06:12] LABS: Glucose,Whole Blood 124 mg/dL (75-99)
[2020-10-12] MEDS: PANTOPRAZOLE 40 MG TABLET PO SCH (06:53)
[2020-10-12] MEDS: INSULIN ASPART (NovoLOG) 100 UNIT/ML VIAL SQ SCH ×4 (06:54→20:29)
[2020-10-12 07:27] LABS: Basophils % (A) 1 %; Eosinophils # (A) 0.3 k/uL (0-0.7); Eosinophils % (A) 5 %; HCT 27.4 % (39.0-53.0); HGB 9.2 gm/dL (13.0-17.5); Lymphocytes # (A) 1.3 k/uL (1.0-4.8); Lymphocytes % (A) 22 %; MCH 27.9 pg (25.0-35.0); MCHC 33.5 g/dL (31.0-37.0); MCV 83.2 fL (80.0-100.0); Mean Platelet Volume 8.4; Monocytes # (A) 0.4 k/uL (0-1.0); Monocytes % (A) 6 %; Neutrophils # (A) 3.8 k/uL (1.3-7.7); Neutrophils % (A) 63 %; Platelet Count 207 k/uL (150-450); RBC 3.29 m/uL (4.30-5.90); RDW 15.3 % (11.5-15.5)
[2020-10-12 07:44] LABS: Calcium 8.7 mg/dL (8.4-10.2)
[2020-10-12] MEDS: SYMBICORT 80-4.5 MCG INHALER INHALATION SCH ×2 (07:52→21:25)
[2020-10-12] MEDS: DULoxetine HCL 60 MG CAPSULE.DR PO SCH (08:52)
[2020-10-12] MEDS: ATORVASTATIN 40 MG TAB PO SCH (08:52)
[2020-10-12] MEDS: CLINDAMYCIN 150 MG CAP PO SCH ×3 (08:52→20:30)
[2020-10-12] MEDS: prednisoLONE ACETATE 1% OPHTH DROPS 5 ML BTL RIGHT EYE SCH ×4 (08:52→20:32)
[2020-10-12] MEDS: GABAPENTIN 400 MG CAP PO SCH ×3 (08:52→20:31)
[2020-10-12] MEDS: HEPARIN SODIUM,PORCINE 5,000 UNIT/ML 1 ML VIAL SQ SCH ×2 (08:52→20:31)
[2020-10-12] MEDS: OFLOXACIN 0.3% OPHTH DROPS 5 ML BOTTLE RIGHT EYE SCH ×3 (08:52→20:32)
[2020-10-12] MEDS: MUPIROCIN 2% OINT 22 GM TUBE TOPICAL SCH ×3 (08:53→22:15)
[2020-10-12] MEDS: KETOROLAC 0.5% OPHTH DROPS 5 ML BTL RIGHT EYE SCH ×4 (08:53→20:32)
[2020-10-12 11:53] LABS: Glucose,Whole Blood 264 mg/dL (75-99)
--- NOTE | 2020-10-12 11:59 | CDI ---
Documentation Clarification Form Date: 10/12/2020 11:44:28 AM From: Joanna Ramires CCS, CCDS Admit Date: 10/06/2020 12:37:00 PM Patient Name: Marquez Squires Visit Number: [id number] Discharge Date: ATTENTION: The Clinical Documentation Specialists (CDI) and [facility] Coding Staff appreciate your assistance in clarifying documentation. Please respond to the clarification below the line at the bottom and electronically sign. The CDI & [facility] Coding staff will review the response and follow-up if needed. Please note: Queries are made part of the Legal Health Record. If you have any questions, please contact the author of this message via ITS. Dr. Niko Coffey: Per the Attending Progress Notes: 10/07, 10/08: Chest pain, possible unstable angina, present on admission, weakness in legs, rule out TIA. Per the Attending Progress Note 10/09: Chest pain possible unstable angina, present on admission, Orthostatic hypotension syndrome/dysautonomia as noted on tilt table test. Weakness of the legs, rule out TIA Patient history/risk factors: Hypertension, CKD III, Hyperlipidemia, DM Type I with Bilateral Peripheral Neuropathy, Endocarditis with aortic root abscess, History of MRSA, CHF: Chronic Diastolic, Former Smoker. Clinical indicators: Patient presented to the ED on 10/03 with Chest Pain to left upper chest, worse with deep inspiration. VS 10/03: T 98.2, P 101, R 16 - 18, BP 91/63 - 118/82; PO 100 RA VS 10/06: T 97.6, P 89, R 16-18, BP 100/54 - 121/70; PO 98 RA LAB 10/06: Hgb 10.3, BUN 25, Creatinine 1.71, Glucose 65 RAD: 10/03 CXR: No acute process. 10/03 NM lung scan: Very low probability of PE. 10/05 CT Brain: No acute intracranial hemorrhage or midline shift. 10/06 CT Brain: No acute intracranial process 10/06 CT Chest/Abdomen/Pelvis: Negative CT scan of the chest abdomen pelvis. There is clearing of the bilateral pleural effusions compared to old exam. There is clearing of the small pericardial effusion. EKG 10/03: R 94 nsr. 10/04: R 81 nsr, Inc RBBB. 10/08 Tilt Table Test: Orthostatic Hypotension syndrome/Dysautonomia In your professional opinion, please clarify the following: o TIA ruled out o TIA ruled in, please specify cause if known: o TIA ruled in, Etiology unknown or unable to determine o Other (please specify): (Last Revision: June 2017) TIA ruled ou MTDD
[2020-10-12] MEDS: MIDODRINE 5 MG TAB PO SCH ×2 (12:21→17:02)
--- NOTE | 2020-10-12 13:05 | P.PN ---
Subjective Progress Note Date: 10/12/20 This is a 50-year-old male who was recently admitted with chest pain, possible unstable angina, also had orthostatic hypotension and is being closely monitored. Cardiology following closely and making adjustments to medications. Midodrine being added as patient continues to have orthostatic hypotension. Captopril has been added as well at night. Patient did have a recent tilt table test which was positive showing orthostatic hypotension syndrome/dysautonomia. Patient states he continues to have weakness and dizziness noted with position changes and getting up to the bathroom this morning. Creatinine this morning is 1.75 with a BUN of 31. Review of systems: Constitutional: No reports of fatigue, fever, or chills Cardiovascular: No reports of chest pain or palpitations Respiratory: No reports of shortness of breath or cough GI: No reports of nausea, vomiting, or diarrhea : No reports of dysuria or retention Neurovascular: reports weakness of the lower extremities with getting up and p osition changes All medications have been reviewed Active Medications Acetaminophen (Acetaminophen Tab 325 Mg Tab) 650 mg PO Q6HR PRN PRN Reason: Mild Pain or Fever > 100.5 Last Admin: 10/11/20 23:51 Dose: 650 mg Documented by: Hydrocodone Bitart/Acetaminophen (Hydrocodone/Apap 5-325mg 1 Each Tab) 1 each PO Q6HR PRN PRN Reason: Pain Albuterol Sulfate (Albuterol Nebulized 2.5 Mg/3 Ml) 2.5 mg INHALATION RT-Q6H PRN PRN Reason: Shortness Of Breath Alprazolam (Alprazolam 0.25 Mg Tab) 0.25 mg PO TID PRN PRN Reason: Anxiety Atorvastatin Calcium (Atorvastatin 40 Mg Tab) 40 mg PO DAILY [facility] Last Admin: 10/12/20 08:52 Dose: 40 mg Documented by: Budesonide/Formoterol Fumarate (Symbicort 80-4.5 Mcg Inhaler) 2 puff INHALATION RT-BID [facility] Last Admin: 10/12/20 07:52 Dose: 2 puff Documented by: Captopril (Captopril 25 Mg Tab) 12.5 mg PO HS [facility] Last Admin: 10/11/20 21:03 Dose: 12.5 mg Documented by: Clindamycin HCl (Clindamycin 150 Mg Cap) 450 mg PO TID [facility] Last Admin: 10/12/20 08:52 Dose: 450 mg Documented by: Duloxetine HCl (Duloxetine Hcl 60 Mg Capsule.Dr) 60 mg PO DAILY [facility] Last Admin: 10/12/20 08:52 Dose: 60 mg Documented by: Gabapentin (Gabapentin 400 Mg Cap) 800 mg PO TID [facility] Last Admin: 10/12/20 08:52 Dose: 800 mg Documented by: Heparin Sodium (Porcine) (Heparin Sodium,Porcine 5,000 Unit/Ml 1 Ml Vial) 5,000 unit SQ Q12HR [facility] Last Admin: 10/12/20 08:52 Dose: 5,000 unit Documented by: Hydromorphone HCl (Hydromorphone 0.5 Mg/0.5 Ml Syringe) 0.5 mg IVP Q3HR PRN PRN Reason: Moderate Pain Hydromorphone HCl (Hydromorphone 1 Mg/Ml 1 Ml Syringe) 1 mg IVP Q3HR PRN PRN Reason: Severe Pain Insulin Aspart (Insulin Aspart (Novolog) 100 Unit/Ml Vial) 0 unit SQ [facility]; Protocol Last Admin: 10/12/20 12:21 Dose: 4 unit Documented by: Insulin Detemir (Insulin Detemir (Levemir) 100 Unit/Ml Syr) 56 unit SQ [facility] Last Admin: 10/11/20 21:03 Dose: 56 unit Documented by: Ketorolac Tromethamine (Ketorolac 0.5% Ophth Drops 5 Ml Btl) 1 drops RIGHT EYE QID [facility] Last Admin: 10/12/20 08:53 Dose: 1 drops Documented by: Loperamide HCl (Loperamide 2 Mg Cap) 2 mg PO QID PRN PRN Reason: Diarrhea Last Admin: 10/04/20 12:50 Dose: 2 mg Documented by: Midodrine (Midodrine 5 Mg Tab) 2.5 mg PO AC-TID [facility] Last Admin: 10/12/20 12:21 Dose: Not Given Documented by: Mupirocin (Mupirocin 2% Oint 22 Gm Tube) 1 applic TOPICAL TID [facility] Last Admin: 10/12/20 08:53 Dose: 1 applic Documented by: Naloxone HCl (Naloxone 0.4 Mg/Ml 1 Ml Vial) 0.2 mg IV Q2M PRN PRN Reason: Opioid Reversal Nitroglycerin (Nitroglycerin Sl Tabs 0.4 Mg Tab) 0.4 mg SUBLINGUAL Q5M PRN PRN Reason: Chest Pain Patient's Own ( Semaglutide [Ozempic ] 1 Mg/0.75 Ml Pen. Injctr) 1 mg SQ TH [facility] Last Admin: 10/08/20 09:28 Dose: Not Given Documented by: Ofloxacin (Ofloxacin 0.3% Ophth Drops 5 Ml Bottle) 1 drops RIGHT EYE TID [facility] Last Admin: 10/12/20 08:52 Dose: 1 drops Documented by: Pantoprazole Sodium (Pantoprazole 40 Mg Tablet) 40 mg PO AC-BRKFST [facility] Last Admin: 10/12/20 06:53 Dose: 40 mg Documented by: Prednisolone Acetate (Prednisolone Acetate 1% Ophth Drops 5 Ml Btl) 1 drops RIGHT EYE QID [facility] Last Admin: 10/12/20 08:52 Dose: 1 drops Documented by: Trazodone HCl (Trazodone Hcl 50 Mg Tab) 150 mg PO HS [facility] Last Admin: 10/11/20 21:04 Dose: 150 mg Documented by: Objective - Vital Signs Vital signs: Vital Signs Temp 97.8 F 10/12/20 08:05 Pulse 88 10/12/20 08:05 Resp 18 10/12/20 08:05 BP 119/70 10/12/20 08:05 Pulse Ox 98 10/12/20 08:05 Intake & Output 10/11/20 10/12/20 10/12/20 18:59 06:59 18:59 Intake Total 1080 826 Balance 1080 826 Weight 84.7 kg Intake: Oral 1080 826 Other: Voiding Method Toilet Urinal # Voids 2 2 - Exam Gen: This is a 50-year-old male awake, alert and oriented 3, well-developed, well-nourished. Temp is 97.8F, pulse is 90, respirations are 18, blood pressure is 119/70 and oxygen saturation is 98% on room air. Blood pressure supine is 133/75 with a heart rate of 88, standing blood pressure is 113/60 with a heart rate of 91 HEENT: Head is atraumatic, normocephalic. Pupils equal, round. Sclerae is anicteric. NECK: Supple. No JVD. No lymphadenopathy. No thyromegaly. LUNGS: Diminished breath sounds with some scattered rhonchi noted. No intercostal retractions. HEART: S1, S2 are muffled ABDOMEN: Soft. Bowel sounds are present. No masses. No tenderness. EXTREMITIES: No pedal edema. No calf tenderness. Multiple wounds healing and nonhealing with multiple scabs noted to bilateral upper and lower extremities with ulceration noted on the right leon, showing some improvement NEUROLOGICAL: Patient is awake, alert and oriented x3. Diffusely weak - Labs CBC & Chem 7: 10/12/20 06:49 10/12/20 06:49 Labs: Abnormal Lab Results - Last 24 Hours (Table) 10/11/20 10/11/20 10/11/20 Range/Units 11:45 16:45 20:22 RBC (4.30-5.90) m/uL Hgb (13.0-17.5) gm/dL Hct (39.0-53.0) % Sodium (137-145) mmol/L Carbon Dioxide (22-30) mmol/L BUN (9-20) mg/dL Creatinine (0.66-1.25) mg/dL Glucose (74-99) mg/dL POC Glucose (mg/dL) 250 H 263 H 313 H (75-99) mg/dL 10/12/20 10/12/20 10/12/20 Range/Units 06:10 06:49 06:49 RBC 3.29 L (4.30-5.90) m/uL Hgb 9.2 L (13.0-17.5) gm/dL Hct 27.4 L (39.0-53.0) % Sodium 136 L (137-145) mmol/L Carbon Dioxide 31 H (22-30) mmol/L BUN 31 H (9-20) mg/dL Creatinine 1.75 H (0.66-1.25) mg/dL Glucose 73 L (74-99) mg/dL POC Glucose (mg/dL) 124 H (75-99) mg/dL Microbiology - Last 24 Hours (Table) 10/06/20 08:38 Blood Culture - Final Blood No Growth after 144 hours 10/05/20 07:33 Blood Culture - Final Blood No Growth after 144 hours Assessment and Plan Assessment: Chest pain possible unstable angina, present on admission Orthostatic hypotension syndrome, possible dysautonomia with positive tilt table test Weakness of the legs, rule out TIA Acute renal failure with prerenal acute tubular necrosis Chronic kidney disease, stage III, baseline 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 treated with daptomycin for 4 weeks from [facility] Multiple areas of cellulitis on the right side, upper and lower limbs, possibly from MRSA Hyponatremia anemia, microcytic Relative hypotension History of congestive heart failure, ejection fraction 50-55% with chronic diastolic dysfunction MRSA bacteremia previously History of diabetes mellitus type 2 Hypertension hyperlipidemia History of bilateral peripheral neuropathy history of gout history of cholecystectomy History of anxiety Remote history of nicotine dependence Full code Recommendations and discussion: Recommend to continue with current medications, management, and symptomatic treatment. Cardiology and infectious disease following. Continue with close monitoring of vital signs and continue with orthostatic blood pressures. Patient continues to be orthostatic and medications are being adjusted. Patient is maintained on oral clindamycin and will continue. Blood cultures remain negative. Continue to monitor blood sugars before meals and at bedtime and treat accordingly with long-acting along with sliding scale. Given multiple complex medical issues, prognosis is guarded. Further recommendations to follow. Possible discharge in 24 hours.
--- NOTE | 2020-10-12 15:05 | P.PN ---
Subjective Progress Note Date: 10/12/20 HISTORY OF PRESENT ILLNESS: Patient examined this morning at the bedside. Patient denies chest pain or pressure. Denies shortness of breath. Patient had positive tilt table test during admission. His lasix and metoprolol have been discontinued. Orthostatic blood pressures this morning reveal supine 140/80, sitting 130/70, and standing 90/50. Patient states he felt some weakness in his legs when he was standing and some dizziness. PHYSICAL EXAM: VITAL SIGNS: Reviewed. GENERAL: Well-developed in no acute distress. NECK: Supple. No JVD or thyromegaly LUNGS: Respirations even and unlabored. Lungs essentially clear to auscultation bilaterally. HEART: Regular rate and rhythm. S1 and S2 heard. EXTREMITIES: Normal range of motion. No clubbing or cyanosis. Peripheral pulses intact. No lower extremity edema ASSESSMENT: Dysautonomia, positive tilt table test Orthostatic hypotension Diabetes mellitus, uncontrolled Hyperlipidemia Chronic kidney disease Chronic diastolic heart failure, currently euvolemic PLAN: Lasix and metoprolol have been discontinued over the weekend Captopril 12.5mg at HS added yesterday per Dr. Jennifer Dickson recommends adding Midodrine 2.5mg TID Repeat orthostatic blood pressures tomorrow Further recommendations pending patient course Nurse practitioner note has been reviewed by physician. Signing provider agrees with the documented findings, assessment, and plan of care. Objective - Vital Signs Vital signs: Vital Signs Temp 97.3 F L 10/12/20 12:30 Pulse 93 10/12/20 12:30 Resp 18 10/12/20 12:30 BP 172/90 10/12/20 12:30 Pulse Ox 98 10/12/20 12:30 Intake & Output 10/11/20 10/12/20 10/12/20 18:59 06:59 18:59 Intake Total 1080 826 Balance 1080 826 Weight 84.7 kg Intake: Oral 1080 826 Other: Voiding Method Toilet Urinal # Voids 2 2 # Bowel Movements 0 - Labs CBC & Chem 7: 10/12/20 06:49 10/12/20 06:49 Labs: Abnormal Lab Results - Last 24 Hours (Table) 10/11/20 10/11/20 10/12/20 Range/Units 16:45 20:22 06:10 RBC (4.30-5.90) m/uL Hgb (13.0-17.5) gm/dL Hct (39.0-53.0) % Sodium (137-145) mmol/L Carbon Dioxide (22-30) mmol/L BUN (9-20) mg/dL Creatinine (0.66-1.25) mg/dL Glucose (74-99) mg/dL POC Glucose (mg/dL) 263 H 313 H 124 H (75-99) mg/dL 10/12/20 10/12/20 10/12/20 Range/Units 06:49 06:49 11:51 RBC 3.29 L (4.30-5.90) m/uL Hgb 9.2 L (13.0-17.5) gm/dL Hct 27.4 L (39.0-53.0) % Sodium 136 L (137-145) mmol/L Carbon Dioxide 31 H (22-30) mmol/L BUN 31 H (9-20) mg/dL Creatinine 1.75 H (0.66-1.25) mg/dL Glucose 73 L (74-99) mg/dL POC Glucose (mg/dL) 264 H (75-99) mg/dL Microbiology - Last 24 Hours (Table) 10/06/20 08:38 Blood Culture - Final Blood No Growth after 144 hours
[2020-10-12 16:54] LABS: Glucose,Whole Blood 167 mg/dL (75-99)
[2020-10-12 20:13] LABS: Glucose,Whole Blood 257 mg/dL (75-99)
[2020-10-12] MEDS: INSULIN DETEMIR (LEVEMIR) 100 UNIT/ML SYR SQ SCH (20:29)
[2020-10-12] MEDS: traZODone HCL 50 MG TAB PO SCH (20:31)
--- NOTE | 2020-10-12 21:24 | PN ---
PROGRESS NOTE DATE OF SERVICE: 10/12/2020 REASON FOR FOLLOWUP: Multiple skin lesions with MRSA infection. INTERVAL HISTORY: The patient is currently afebrile. The patient is breathing comfortably. The patient denies having any chest pain or cough. No abdominal pain no diarrhea. PHYSICAL EXAMINATION: Blood pressure is 119/70, pulse of 90, temperature 97.8. He is 98% on room air. General description is a middle-aged male lying in bed in no distress. RESPIRATORY SYSTEM: Unlabored breathing. Clear to auscultation. HEART: S1, S2. Regular rate and rhythm. ABDOMEN: Soft. No tenderness. LEGS: Multiple superficial ulcerations. No significant drainage. LABS: Hemoglobin is 9.2, white count 6.0, BUN of 21, creatinine 1.75. DIAGNOSTIC IMPRESSION AND PLAN: Patient with multiple skin wounds with secondary methicillin-resistant Staphylococcus aeruginosa infection. The patient is currently on oral doxycycline; to continue for another few days. Local care with dry Aquacel Silver dressing and close outpatient followup in the wound care center. MMODL / IJN: [id number] /
--- NOTE | 2020-10-12 21:52 | P.PN ---
Subjective Progress Note Date: 10/12/20 Patient was seen for a follow-up. Patient was initially seen by Dr. Crow Long. Please refer to his note for detail. Patient states that he came to the hospital for chest pain, dizziness, shortness of breath. Patient had a near syncopal spell, when he was sitting on the edge of the bed, couldn't stand up, he required help to go to the bathroom. Patient had an episode of hypotension which his systolic blood pressure was running between 70 to 90s. Patient had a tilt table test on 10/08/2020, which was positive for orthostatic hypotension syndrome/dysautonomia. CT head showed no acute process. Patient has been started on midodrine 2.5 mg 3 times a day. Patient also on gabapentin 800 mg 3 times a day, Cymbalta 60 mg, Captopril 12.5 mg at bedtime and trazodone 150 mg at bedtime, which can also produce orthostasis. Patient has diabetes for last 20 years. Patient's hemoglobin A1c 9.6 on 0 05/19/2020. Vitamin B6 is borderline 9 on 10/07/2020. B12 is 12/09/1939, RBC folate 1028. TSH normal. Telemetry monitoring showing sinus rhythm, sinus tachycardia. Objective - Vital Signs Vital signs: Vital Signs Temp 98.2 F 10/12/20 20:00 Pulse 97 10/12/20 20:00 Resp 18 10/12/20 20:00 BP 176/83 10/12/20 20:00 Pulse Ox 98 10/12/20 20:00 Intake & Output 10/12/20 10/12/20 10/13/20 06:59 18:59 06:59 Intake Total 1486 Balance 1486 Weight 84.7 kg Intake: Oral 1486 Other: Voiding Method Toilet Urinal # Voids 2 1 # Bowel Movements 0 - Exam Patient's mental status, speech and language functions are normal. Cranial nerves are normal. Muscle strength is normal in both arms area and in the lower limbs, patient's hip flexion is slightly weak, 5-on the left, ankle dorsiflexion also 5-on the left with some giveaway weakness at times. Sensations are equal. No ataxia. Gait deferred. - Labs CBC & Chem 7: 10/12/20 06:49 10/12/20 06:49 Labs: Abnormal Lab Results - Last 24 Hours (Table) 10/12/20 10/12/20 10/12/20 Range/Units 06:10 06:49 06:49 RBC 3.29 L (4.30-5.90) m/uL Hgb 9.2 L (13.0-17.5) gm/dL Hct 27.4 L (39.0-53.0) % Sodium 136 L (137-145) mmol/L Carbon Dioxide 31 H (22-30) mmol/L BUN 31 H (9-20) mg/dL Creatinine 1.75 H (0.66-1.25) mg/dL Glucose 73 L (74-99) mg/dL POC Glucose (mg/dL) 124 H (75-99) mg/dL 10/12/20 10/12/20 10/12/20 Range/Units 11:51 16:53 20:12 RBC (4.30-5.90) m/uL Hgb (13.0-17.5) gm/dL Hct (39.0-53.0) % Sodium (137-145) mmol/L Carbon Dioxide (22-30) mmol/L BUN (9-20) mg/dL Creatinine (0.66-1.25) mg/dL Glucose (74-99) mg/dL POC Glucose (mg/dL) 264 H 167 H 257 H (75-99) mg/dL Microbiology - Last 24 Hours (Table) 10/06/20 08:38 Blood Culture - Final Blood No Growth after 144 hours Assessment and Plan Assessment: * Near syncopal spell, probably due to Orthostatic hypotension with positive tilt table test. * Diabetes, poorly controlled with diabetic neuropathy. * Cellulitis with MRSA. * Acute on chronic renal insufficiency * Hypertension Plan: * Patient's 2-D echo from 10/05/2020 shows EF > 55%, normal left atrial size. Trace MR. * We will check carotid Doppler to rule out stenosis. * Optimize control of diabetes. * Patient started on midodrine 2.5 mg 3 times a day for orthostatic hypotension. * Consider aspirin 81 mg daily if no medical contraindication. * Continue Lipitor. * Patient has mild renal insufficiency, therefore we'll decrease dose of gabapentin to 600 mg 3 times a day. * Consider decreasing trazodone to 100 mg, which can also produce orthostasis.
[2020-10-12] MEDS: GABAPENTIN 300 MG CAP PO SCH (22:16)
[2020-10-13 06:10] LABS: Glucose,Whole Blood 75 mg/dL (75-99)
[2020-10-13] MEDS: INSULIN ASPART (NovoLOG) 100 UNIT/ML VIAL SQ SCH ×2 (06:10→12:35)
[2020-10-13] MEDS: PANTOPRAZOLE 40 MG TABLET PO SCH (06:22)
[2020-10-13] MEDS: MIDODRINE 5 MG TAB PO SCH ×2 (06:22→12:35)
[2020-10-13 08:02] LABS: Calcium 8.7 mg/dL (8.4-10.2)
[2020-10-13] MEDS: SYMBICORT 80-4.5 MCG INHALER INHALATION SCH (08:23)
--- NOTE | 2020-10-13 08:27 | US ---
EXAMINATION TYPE: US carotid duplex BILAT DATE OF EXAM: 10/13/2020 COMPARISON: NONE CLINICAL HISTORY: Near syncope. EXAM MEASUREMENTS: RIGHT: Peak Systolic Velocity (PSV) cm/sec ----- Right CCA: 71.5 ----- Right ICA: 83.4 ----- Right ECA: 89.4 ICA/CCA ratio: 1.2 RIGHT: End Diastole cm/sec ----- Right CCA: 18.8 ----- Right ICA: 38.0 ----- Right ECA: 8.7 LEFT: Peak Systolic Velocity (PSV) cm/sec ----- Left CCA: 68.9 ----- Left ICA: 104.6 ----- Left ECA: 135.0 ICA/CCA ratio: 1.5 LEFT: End Diastole cm/sec ----- Left CCA: 17.5 ----- Left ICA: 29.4 ----- Left ECA: 7.4 VERTEBRALS (direction of flow): Right Vertebral: Antegrade Left Vertebral: Antegrade Rhythm: Normal Mild atherosclerotic changes with no significant velocity increases. Grayscale, color Doppler, spect ral Doppler imaging performed of the carotid arteries. Waveform analysis does not show significant st enosis of the internal carotid arteries. IMPRESSION: No hemodynamic significant stenosis the proximal internal carotid arteries by Doppler cr iteria, an indirect measurement of carotid stenosis Criteria for Assigning % of Stenosis / Diameter reduction (Estimation based on the indirect measurements of the internal carotid artery velocities (ICA PSV). 1. Normal (no stenosis)=ICA PSV < 125 cm/s: ratio < 2.0: ICA EDV<40 cm/s. 2. Less than 50% stenosis=ICA PSV < 125 cm/s: ratio < 2.0: ICA EDV<40 cm/s. 3. 50 to 69% stenosis=ICA PSV of 125 to 230 cm/s: ration 2.0 ? 4.0: ICA EDV 40-100 cm/s. 4. Greater than 70% stenosis to near occlusion= ICA PSV > 230 cm/s: ratio > 4.0: ICA EDV > 100 cm/s. 5. Near occlusion= ICA PSV velocities may be low or undetectable: variable ratio and ICA EDV. 6. Total occlusion=unable to detect flow.
[2020-10-13] MEDS: ATORVASTATIN 40 MG TAB PO SCH (10:47)
[2020-10-13] MEDS: CLINDAMYCIN 150 MG CAP PO SCH (10:48)
[2020-10-13] MEDS: DULoxetine HCL 60 MG CAPSULE.DR PO SCH (10:49)
[2020-10-13] MEDS: HEPARIN SODIUM,PORCINE 5,000 UNIT/ML 1 ML VIAL SQ SCH (10:50)
[2020-10-13] MEDS: GABAPENTIN 300 MG CAP PO SCH (10:50)
[2020-10-13] MEDS: KETOROLAC 0.5% OPHTH DROPS 5 ML BTL RIGHT EYE SCH ×2 (10:51→13:52)
[2020-10-13] MEDS: OFLOXACIN 0.3% OPHTH DROPS 5 ML BOTTLE RIGHT EYE SCH (10:54)
[2020-10-13] MEDS: prednisoLONE ACETATE 1% OPHTH DROPS 5 ML BTL RIGHT EYE SCH ×2 (10:55→13:52)
[2020-10-13] MEDS: MUPIROCIN 2% OINT 22 GM TUBE TOPICAL SCH (10:56)
[2020-10-13 11:58] VITALS: BP 144/71; PULSE 89; RESP 14; TEMP 98
[2020-10-13 12:02] LABS: Glucose,Whole Blood 161 mg/dL (75-99)
--- NOTE | 2020-10-13 13:54 | PN ---
PROGRESS NOTE DATE OF SERVICE: 10/13/2020 REASON FOR FOLLOWUP: Bilateral lower extremity wound, cellulitis and MRSA. INTERVAL HISTORY: The patient is currently afebrile. The patient is breathing comfortably. Waiting for discharge. Denies having any chest pain or shortness of breath or cough. No abdominal pain or diarrhea. PHYSICAL EXAMINATION: Blood pressure 144/71 with a pulse of 89, temperature 98. He is 99% on room air. General description is a middle-aged male up in the bed in no distress. RESPIRATORY SYSTEM: Unlabored breathing, clear to auscultation anteriorly. HEART: S1, S2. Regular rate and rhythm. ABDOMEN: Soft, no tenderness. Leg wounds are currently dressed. No drainage on the dressing. LABS: BUN of 33, creatinine 1.74. DIAGNOSTIC IMPRESSION AND PLAN: Patient with multiple superficial wounds to the lower extremity with secondary cellulitis, culture positive for MRSA. Plan is to local wound care with Aquacel Silver dressing. Follow up in the [facility]. days of clindamycin. Prescription sent to the pharmacy. MMYINGL / IJN: [id number] /
--- NOTE | 2020-10-13 15:13 | P.PN ---
Subjective Progress Note Date: 10/13/20 HISTORY OF PRESENT ILLNESS: 10/12/2020 Patient examined this morning at the bedside. Patient denies chest pain or pressure. Denies shortness of breath. Patient had positive tilt table test during admission. His lasix and metoprolol have been discontinued. Orthostatic blood pressures this morning reveal supine 140/80, sitting 130/70, and standing 90/50. Patient states he felt some weakness in his legs when he was standing and some dizziness. 10/13/2020 Patient examined this point the bedside. He denies chest pain or pressure. Denies shortness of breath. Orthostatic blood pressures completed at 1 AM revealed blood pressure supine 169/86. Blood pressure standing 177/86. Blood pressure sitting 177/85. Repeat orthostatics performed this morning at 9 AM revealed blood pressure supine 136/80. Blood pressure standing 112/58. Blood pressure sitting 120/76. Patient states he did not feel dizzy or lightheaded today when orthostatic blood pressures were performed. PHYSICAL EXAM: VITAL SIGNS: Reviewed. GENERAL: Well-developed in no acute distress. NECK: Supple. No JVD or thyromegaly LUNGS: Respirations even and unlabored. Lungs essentially clear to auscultation bilaterally. HEART: Regular rate and rhythm. S1 and S2 heard. EXTREMITIES: Normal range of motion. No clubbing or cyanosis. Peripheral pulses intact. No lower extremity edema ASSESSMENT: Dysautonomia, positive tilt table test Orthostatic hypotension Diabetes mellitus, uncontrolled Hyperlipidemia Chronic kidney disease Chronic diastolic heart failure, currently euvolemic PLAN: Continue current cardiac medications Patient may be discharged home today from a cardiac standpoint. He is to follow up on an outpatient basis. Nurse practitioner note has been reviewed by physician. Signing provider agrees with the documented findings, assessment, and plan of care. Objective - Vital Signs Vital signs: Vital Signs Temp 98.0 F 10/13/20 11:57 Pulse 89 10/13/20 11:57 Resp 14 10/13/20 11:57 BP 144/71 10/13/20 11:57 Pulse Ox 99 10/13/20 11:57 Intake & Output 10/12/20 10/13/20 10/13/20 18:59 06:59 18:59 Intake Total 1486 1440 Balance 1486 1440 Weight 84.5 kg Intake: Oral 1486 1440 Other: Voiding Method Toilet Toilet Urinal Urinal # Voids 1 # Bowel Movements 0 0 - Labs CBC & Chem 7: 10/12/20 06:49 10/13/20 06:55 Labs: Abnormal Lab Results - Last 24 Hours (Table) 10/12/20 10/12/20 10/13/20 Range/Units 16:53 20:12 06:55 Sodium 136 L (137-145) mmol/L BUN 33 H (9-20) mg/dL Creatinine 1.74 H (0.66-1.25) mg/dL Glucose 70 L (74-99) mg/dL POC Glucose (mg/dL) 167 H 257 H (75-99) mg/dL 10/13/20 Range/Units 11:48 Sodium (137-145) mmol/L BUN (9-20) mg/dL Creatinine (0.66-1.25) mg/dL Glucose (74-99) mg/dL POC Glucose (mg/dL) 161 H (75-99) mg/dL Microbiology - Last 24 Hours (Table) 10/06/20 08:38 Blood Culture - Final Blood No Growth after 144 hours
--- NOTE | 2020-10-13 18:52 | P.PN ---
Subjective Progress Note Date: 10/13/20 09/12/2020: Patient feeling fine, no further syncopal spells. Patient's sitting on the sofa. Wants to go home. No focal symptoms. 09/11/2020: Patient was seen for a follow-up. Patient was initially seen by Dr. Crow Long. Please refer to his note for detail. Patient states that he came to the hospital for chest pain, dizziness, shortness of breath. Patient had a near syncopal spell, when he was sitting on the edge of the bed, couldn't stand up, he required help to go to the bathroom. Patient had an episode of hypotension which his systolic blood pressure was running between 70 to 90s. Patient had a tilt table test on 10/08/2020, which was positive for orthostatic hypotension syndrome/dysautonomia. CT head showed no acute process. Patient has been started on midodrine 2.5 mg 3 times a day. Patient also on gabapentin 800 mg 3 times a day, Cymbalta 60 mg, Captopril 12.5 mg at bedtime and trazodone 150 mg at bedtime, which can also produce orthostasis. Patient has diabetes for last 20 years. Patient's hemoglobin A1c 9.6 on 05/19/2020. Vitamin B6 is borderline 9 on 10/07/2020. B12 is 12/09/1939, RBC folate 1028. TSH normal. Telemetry monitoring showing sinus rhythm, sinus tachycardia. Objective - Vital Signs Vital signs: Vital Signs Temp 98.0 F 10/13/20 11:57 Pulse 89 10/13/20 11:57 Resp 14 10/13/20 11:57 BP 144/71 10/13/20 11:57 Pulse Ox 99 10/13/20 11:57 Intake & Output 10/12/20 10/13/20 10/13/20 18:59 06:59 18:59 Intake Total 1486 840 Balance 1486 840 Weight 84.5 kg Intake: Oral 1486 840 Other: Voiding Method Toilet Toilet Urinal Urinal # Voids 1 # Bowel Movements 0 - Exam Patient's mental status, speech and language functions are normal. Cranial nerves are normal. Muscle strength is normal in both arms area and in the lower limbs, patient's hip flexion is slightly weak, 5-on the left, ankle dorsiflexion also 5-on the left with some giveaway weakness at times. Sensations are equal. No ataxia. Gait deferred. - Labs CBC & Chem 7: 10/12/20 06:49 10/13/20 06:55 Labs: Abnormal Lab Results - Last 24 Hours (Table) 10/12/20 10/12/20 10/13/20 Range/Units 16:53 20:12 06:55 Sodium 136 L (137-145) mmol/L BUN 33 H (9-20) mg/dL Creatinine 1.74 H (0.66-1.25) mg/dL Glucose 70 L (74-99) mg/dL POC Glucose (mg/dL) 167 H 257 H (75-99) mg/dL 10/13/20 Range/Units 11:48 Sodium (137-145) mmol/L BUN (9-20) mg/dL Creatinine (0.66-1.25) mg/dL Glucose (74-99) mg/dL POC Glucose (mg/dL) 161 H (75-99) mg/dL Microbiology - Last 24 Hours (Table) 10/06/20 08:38 Blood Culture - Final Blood No Growth after 144 hours Assessment and Plan Assessment: * Near syncopal spell, probably due to Orthostatic hypotension with positive tilt table test. * Diabetes, poorly controlled with diabetic neuropathy. * Cellulitis with MRSA. * Acute on chronic renal insufficiency * Hypertension Plan: * Patient's 2-D echo from 10/05/2020 shows EF > 55%, normal left atrial size. Trace MR. * Carotid Doppler revealed no hemodynamic significant stenosis. * Optimize control of diabetes. * Continue midodrine 2.5 mg 3 times a day for orthostatic hypotension. * Consider aspirin 81 mg daily if no medical contraindication. * Continue Lipitor. * Patient has mild renal insufficiency, therefore we'll decrease dose of gabapentin to 600 mg 3 times a day. * Consider decreasing trazodone to 100 mg, which can also produce orthostasis. * Neurologically clear for discharge.
--- NOTE | 2020-10-14 01:14 | P.DS ---
Providers Date of admission: 10/06/20 12:37 Attending physician: Niko Coffey Consults: 10/03/20 14:40 Consult Physician Routine Consulting Provider: Wilton Medrano Consult Reason/Comments: CP Do you want consulting provider notified?: Yes 10/04/20 12:39 Consult Physician Routine Consulting Provider: Shaan Milligan Consult Reason/Comments: hx of endocarditis, hypotension Do you want consulting provider notified?: Yes 10/06/20 11:57 Consult Physician Routine Consulting Provider: Franklin Long Consult Reason/Comments: weakness Do you want consulting provider notified?: Already Contacted 10/08/20 14:57 Consult Physician Routine Consulting Provider: Charles Rodriguez Consult Reason/Comments: orthostatic hypotension Do you want consulting provider notified?: Already Contacted Primary care physician: Meet Erazo [facility] Course: Diagnoses: Chest pain , POA. Completely resolved and patient was cleared for discharge by building operator Orthostatic hypotension syndrome, possible dysautonomia with positive tilt table test. Started on medial drain. Improved Bilateral leg cellulitis secondary to MRSA. Discharge on oral clindamycin as per ID team Dizziness secondary to orthostatic hypertension and possible medication. Completely resolved prior to discharge and patient was cleared by neurologist and building operator to go home today Acute renal failure with prerenal acute tubular necrosis. 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 treated with daptomycin for 4 weeks from [facility] Multiple areas of cellulitis on the right side, upper and lower limbs, possibly from MRSA Hyponatremia anemia, microcytic Relative hypotension History of congestive heart failure, ejection fraction 50-55% with chronic diastolic dysfunction MRSA bacteremia previously History of diabetes mellitus type 2 Hypertension hyperlipidemia History of bilateral peripheral neuropathy history of gout history of cholecystectomy History of anxiety Remote history of nicotine dependence Hospital course: This is a 50-year-old male with multiple medical problems as above. Presents because of chest pain with complete resolution Perative discharge however patient was not a still complaining from dizziness and he is been evaluated by neurologist and building operator, patient had positive tilt table test secondary to dysautonomia. Patient was started on midodrine and FLORA hose socks. Also his metoprolol, Lasix and Norvasc were stopped and he was started on captopril upon discharge. Also medial drain has been added. His blood pressure is improved and his orthostatic hypotension is also improved, patient today he was still in me that his dizziness is completely resolved and he denies any headache or weakness. On the top of that I spoke with her son who recommended to lower his trazodone from 150 down to 100 mg daily, patient informed and he agrees. He states he takes trazodone to help him sleep. Patient had an unremarkable CT of the chest, abdomen and pelvis without contrast. Pulmonary perfusion was very low probability for PE. Wound culture was growing MRSA and patient was placed on oral clindamycin per ID team upon discharge On the day of discharge patient states that he is back to his baseline and he was eager to go home today. He denies chest pain or dyspnea. No weakness or numbness or headache. No change in urine or bowel habits. No fever Patient was cleared for discharge by all consultants including building operator, neurologist and infectious disease team Problems and management plan were discussed with the patient and he verbalized understanding and acceptance Patient was found stable and can be discharged home however he needs follow-up as an outpatient. Patient was instructed to follow up with PCP Dr. Izaguirre within one week and patient agrees I called and spoke with his PCP and they discussed the case with her with a recommendation for outpatient follow-up with building operator and neurologist and she currently took note of these. Also patient was instructed to follow up with Dr. Dickson in 1-2 weeks and neurologist in 2 weeks and he agrees to call and make his own appointment Physical exam Gen: patient is a AAOx3, no distress CVS: S1-S2, RRR, no murmur Lungs: B/L CTA, no wheezing Abdomen: soft, no distention, no tenderness, positive bowel sounds Extremity: no leg edema or induration Time spent more than 35 minutes Patient Condition at Discharge: Stable Plan - Discharge Summary Discharge Rx Participant: No New Discharge Prescriptions: New captopriL [Capoten] 12.5 mg PO HS #15 tab traZODone HCL [Desyrel] 100 mg PO HS #30 tab Atorvastatin [Lipitor] 40 mg PO DAILY #30 tab Midodrine [ProAmatine] 2.5 mg PO AC-TID #50 tab Clindamycin [Cleocin] 300 mg PO Q8H #24 cap Continue Omeprazole [PriLOSEC] 40 mg PO AC-BRKFST #14 capsule. Nitroglycerin Sl Tabs [Nitrostat] 0.4 mg SUBLINGUAL Q5M PRN #30 tab PRN Reason: Chest Pain Gabapentin 800 mg PO TID DULoxetine HCL [Cymbalta] 60 mg PO DAILY Acetaminophen Tab [Tylenol] 650 mg PO Q4H PRN PRN Reason: Mild Pain Or Fever > 100.5 Albuterol Sulfate [Proair Hfa] 2 puff INHALATION RT-Q6H PRN PRN Reason: Shortness Of Breath Fluticasone Propion/Salmeterol [Wixela 250-50 Inhub] 1 puff INHALATION RT-BID prednisoLONE ACETATE [Pred Forte 1%] 1 drop RIGHT EYE QID Ofloxacin 0.3% Ophth Soln [Ocuflox Ophth Soln] 1 drop RIGHT EYE TID Ketorolac 0.5% Ophth Soln [Acular 0.5%] 1 drops RIGHT EYE QID Semaglutide [Ozempic] 1 mg SQ TH Insulin Glargine,Hum.rec.anlog [Basaglar Kwikpen U-100] 56 unit SQ HS Discontinued amLODIPine [Norvasc] 5 mg PO BID Furosemide [Lasix] 20 mg PO BID #60 tab Metoprolol Tartrate [Lopressor] 25 mg PO BID #60 tab Potassium Chloride ER [K-Dur 20] 20 meq PO BID traZODone HCL 150 mg PO HS Discharge Medication List Omeprazole [PriLOSEC] 40 mg PO AC-BRKFST #14 capsule. 11/04/19 [Rx] Nitroglycerin Sl Tabs [Nitrostat] 0.4 mg SUBLINGUAL Q5M PRN #30 tab 11/05/19 [Rx] Gabapentin 800 mg PO TID 03/31/20 [History] DULoxetine HCL [Cymbalta] 60 mg PO DAILY 04/01/20 [History] Acetaminophen Tab [Tylenol] 650 mg PO Q4H PRN 07/25/20 [History] Albuterol Sulfate [Proair Hfa] 2 puff INHALATION RT-Q6H PRN 07/25/20 [History] Fluticasone Propion/Salmeterol [Wixela 250-50 Inhub] 1 puff INHALATION RT-BID 07/25/20 [History] Insulin Glargine,Hum.rec.anlog [Wilagljonny Delvallepen U-100] 56 unit SQ HS 10/03/20 [History] Ketorolac 0.5% Ophth Soln [Acular 0.5%] 1 drops RIGHT EYE QID 10/03/20 [History] Ofloxacin 0.3% Ophth Soln [Ocuflox Ophth Soln] 1 drop RIGHT EYE TID 10/03/20 [History] Semaglutide [Ozempic] 1 mg SQ TH 10/03/20 [History] prednisoLONE ACETATE [Pred Forte 1%] 1 drop RIGHT EYE QID 10/03/20 [History] Atorvastatin [Lipitor] 40 mg PO DAILY #30 tab 10/13/20 [Rx] Clindamycin [Cleocin] 300 mg PO Q8H #24 cap 10/13/20 [Rx] Midodrine [ProAmatine] 2.5 mg PO AC-TID #50 tab 10/13/20 [Rx] captopriL [Capoten] 12.5 mg PO HS #15 tab 10/13/20 [Rx] traZODone HCL [Desyrel] 100 mg PO HS #30 tab 10/13/20 [Rx] Follow up Appointment(s)/Referral(s): Juan Woodall MD [REFERRING] - 2 Weeks (office will call you with an appointment) Zina Meier PAC [REFERRING] - 10/20/20 9:15 am Jonathan Strong MD [Medical Doctor] - 2 Weeks (neurologist ) Ariella Woodall MD [REFERRING] - 2 Weeks (neurologist ) Alfredo Dickson MD [STAFF PHYSICIAN] - 10/22/20 10:30 am Patient Instructions/Handouts: Angina (DC), Hypotension (DC) Activity/Diet/Wound Care/Special Instructions: Heart healthy diet Activity is restricted until you see your doctor Continue using FLORA hose and follow-up with your doctor Discharge Disposition: HOME SELF-CARE
== END 2020-10-13 15:04 | disposition home or self-care (01) | DRG 91 ==
LOC: EC 13:04 → 6NMEDSUR 15:12 → 3SCARD 10-04 10:00 → OBSVTOIN 10-06 12:37
PROVIDERS: ADMIT Hospitalist; ATTEND Hospitalist
PROC: 4A02XFZ Measurement of Cardiac Rhythm, External Approach (ICD-10-PCS; principal; 2020-10-08)
PROC: 4A03XB1 Measurement of Arterial Pressure, Peripheral, External Approach (ICD-10-PCS; principal; 2020-10-08)
DX: G90.1 Familial dysautonomia [Riley-Day] (principal); N17.0 Acute kidney failure with tubular necrosis; E87.1 Hypo-osmolality and hyponatremia; I13.0 Hypertensive heart and chronic kidney disease with heart failure and stage 1 through stage 4 chronic kidney disease, or unspecified chronic kidney disease; I50.32 Chronic diastolic (congestive) heart failure; L03.115 Cellulitis of right lower limb; L03.116 Cellulitis of left lower limb; L03.114 Cellulitis of left upper limb; L03.113 Cellulitis of right upper limb; E10.42 Type 1 diabetes mellitus with diabetic polyneuropathy; E10.22 Type 1 diabetes mellitus with diabetic chronic kidney disease; E10.65 Type 1 diabetes mellitus with hyperglycemia; E10.649 Type 1 diabetes mellitus with hypoglycemia without coma; I95.1 Orthostatic hypotension; B95.62 Methicillin resistant Staphylococcus aureus infection as the cause of diseases classified elsewhere; D50.9 Iron deficiency anemia, unspecified; E78.5 Hyperlipidemia, unspecified; F41.9 Anxiety disorder, unspecified; I35.1 Nonrheumatic aortic (valve) insufficiency; N18.30 Chronic kidney disease, stage 3 unspecified; Z20.822 Contact with and (suspected) exposure to COVID-19; Z79.4 Long term (current) use of insulin; Z79.899 Other long term (current) drug therapy; Z83.3 Family history of diabetes mellitus; Z86.14 Personal history of Methicillin resistant Staphylococcus aureus infection; Z86.79 Personal history of other diseases of the circulatory system; Z87.891 Personal history of nicotine dependence; Z90.49 Acquired absence of other specified parts of digestive tract; Z98.41 Cataract extraction status, right eye; Z86.19 Personal history of other infectious and parasitic diseases; M10.9 Gout, unspecified
CPT/HCPCS: 36415; 70450; 71045; 71250; 74176; 78582; 80048; 80053; 81001; 82607; 82747; 83690; 83735; 83880; 84207; 84443; 84484; 85025; 85379; 85610; 85652; 85730; 86140; 87040; 87070; 87077; 87186; 87205; 87635; 93005; 93306; 93660; 93880; 94640; 96374; 99285

== ENCOUNTER 2020-11-13 13:29 | Emergency (ER) | payer OTHER ==
[2020-11-13 13:33] VITALS: RESP 18
[2020-11-13] MEDS ORDERED: KETOROLAC 15 MG/ML 1 ML VIAL IM STA (14:24)
--- NOTE | 2020-11-13 14:38 | ED ---
Skin/Abscess/FB HPI - General Chief complaint: Skin/Abscess/Foreign Body Stated complaint: Facial Rash Time Seen by Provider: 11/13/20 14:12 Source: patient, RN notes reviewed Mode of arrival: ambulatory Limitations: no limitations - History of Present Illness Initial comments: 50-year-old white male patient presents to the emergency room with 2-3 days of facial abscesses 3. States was seen at urgent care yesterday and prescribed an oral antibiotic he believes is Keflex, states unable to sleep related to pain whenever anything touches his face increases pain. Was told that this could be related to folliculitis from him trying to grow his shetty. Patient denies fevers, nausea vomiting. Patient denies any trauma or risk of foreign body. MD complaint: abscess/boil -: days(s) (3) Location: face (one to right side of face near oral commissure, two to upper cheek, all with dried blood and yellow crust) Severity scale (1-10): 8 Quality: sharp Consistency: constant Improves with: none (given oral abx yesterday by urgent care, and 2% cream (unknown name)) Worsens with: palpation, movement Context: other (thinks related to growing his shetty) Associated symptoms: denies other symptoms Treatments Prior to Arrival: antibiotic - Related Data Home Medications Medication Instructions Recorded Confirmed Gabapentin 800 mg PO TID 03/31/20 10/03/20 DULoxetine HCL [Cymbalta] 60 mg PO DAILY 04/01/20 10/03/20 Acetaminophen Tab [Tylenol] 650 mg PO Q4H PRN 07/25/20 10/03/20 Albuterol Sulfate [Proair Hfa] 2 puff INHALATION RT-Q6H PRN 07/25/20 10/03/20 Fluticasone Propion/Salmeterol 1 puff INHALATION RT-BID 07/25/20 10/03/20 [Wixela 250-50 Inhub] Insulin Glargine,Hum.rec.anlog 56 unit SQ HS 10/03/20 10/03/20 [Jaciel Lazar U-100] Ketorolac 0.5% Ophth Soln [Acular 1 drops RIGHT EYE QID 10/03/20 10/03/20 0.5%] Ofloxacin 0.3% Ophth Soln [Ocuflox 1 drop RIGHT EYE TID 10/03/20 10/03/20 Ophth Soln] Semaglutide [Ozempic] 1 mg SQ TH 10/03/20 10/03/20 prednisoLONE ACETATE [Pred Forte 1 drop RIGHT EYE QID 10/03/20 10/03/20 1%] Previous Rx's Medication Instructions Recorded Omeprazole [PriLOSEC] 40 mg PO AC-BRKFST #14 capsule.dr 11/04/19 Nitroglycerin Sl Tabs [Nitrostat] 0.4 mg SUBLINGUAL Q5M PRN #30 tab 11/05/19 Atorvastatin [Lipitor] 40 mg PO DAILY #30 tab 10/13/20 Clindamycin [Cleocin] 300 mg PO Q8H #24 cap 10/13/20 Midodrine [ProAmatine] 2.5 mg PO AC-TID #50 tab 10/13/20 captopriL [Capoten] 12.5 mg PO HS #15 tab 10/13/20 traZODone HCL [Desyrel] 100 mg PO HS #30 tab 10/13/20 Sulfamethox-Tmp 800-160Mg [Bactrim 1 tab PO Q12HR #14 tab 11/13/20 DS 800-160 mg] Allergies Allergy/AdvReac Type Severity Reaction Status Date / Time No Known Allergies Allergy Verified 11/13/20 13:33 Review of Systems ROS Statement: Those systems with pertinent positive or pertinent negative responses have been documented in the HPI. ROS Other: All systems not noted in ROS Statement are negative. Past Medical History Past Medical History: Heart Failure, Diabetes Mellitus, Hyperlipidemia, Hypertension Additional Past Medical History / Comment(s): IDDM type II, neuropathy bilateral feet, gout, right eye catarct removal . History of Any Multi-Drug Resistant Organisms: MRSA Date of last positivie culture/infection: 10/04/20 MDRO Source:: Right Knee Past Surgical History: Cholecystectomy Additional Past Surgical History / Comment(s): I&D scrotal abscess, I&D back abscess Past Anesthesia/Blood Transfusion Reactions: No Reported Reaction Past Psychological History: Anxiety Smoking Status: Current every day smoker Past Alcohol Use History: Occasional Past Drug Use History: None Reported - Past Family History Mother Family Medical History: Diabetes Mellitus Father History Unknown: Yes General Exam Limitations: no limitations General appearance: alert, in no apparent distress Head exam: Present: atraumatic Eye exam: Present: normal appearance, PERRL, EOMI. Absent: scleral icterus, conjunctival injection, periorbital swelling ENT exam: Present: normal exam, mucous membranes moist Neck exam: Present: normal inspection. Absent: tenderness, meningismus, lymphadenopathy Respiratory exam: Present: normal lung sounds bilaterally. Absent: respiratory distress, wheezes, rales, rhonchi, stridor Cardiovascular Exam: Present: regular rate, normal rhythm, normal heart sounds. Absent: systolic murmur, diastolic murmur, rubs, gallop, clicks Neurological exam: Present: alert, oriented X3, CN II-XII intact Psychiatric exam: Present: normal affect, normal mood Skin exam: Present: warm, dry, intact, normal color. Absent: rash Course Vital Signs 11/13/20 13:31 Temperature 97.7 F Pulse Rate 95 Respiratory 18 Rate Blood Pressure 196/91 O2 Sat by Pulse 98 Oximetry Medical Decision Making - Medical Decision Making Patient currently on Keflex from urgent care, will add MRSA coverage and prescrib Bactrim. no concern for periorbital cellulitis, no systemic signs of fever, no fluctuance to any lesion noted. Patient directed to return if worse and warm moist compresses TID. Disposition Clinical Impression: Facial abscess, Abscess Disposition: HOME SELF-CARE Condition: Good Instructions (If sedation given, give patient instructions): Abscess (ED) Additional Instructions: Take previously prescribed Keflex in addition to the Bactrim prescribed today. Warm moist compresses 3 times a day along with 1 to hot showers again. Return if worsening symptoms, fever, or increased facial swelling. Prescriptions: Sulfamethox-Tmp 800-160Mg [Bactrim DS 800-160 mg] 1 tab PO Q12HR #14 tab Is patient prescribed a controlled substance at d/c from ED?: No Referrals: Meet Fontanez DO [Primary Care Provider] - 1-2 days Time of Disposition: 14:51
[2020-11-13 15:18] VITALS: BP 177/78; PULSE 77; TEMP 98.1
== END 2020-11-13 15:00 | disposition home or self-care (01) ==
LOC: EC 13:29
DX: L02.01 Cutaneous abscess of face (principal); I11.0 Hypertensive heart disease with heart failure; I50.9 Heart failure, unspecified; Z79.1 Long term (current) use of non-steroidal anti-inflammatories (NSAID); Z79.4 Long term (current) use of insulin; Z79.51 Long term (current) use of inhaled steroids; E11.9 Type 2 diabetes mellitus without complications; E78.5 Hyperlipidemia, unspecified; F17.200 Nicotine dependence, unspecified, uncomplicated; F41.9 Anxiety disorder, unspecified
CPT/HCPCS: 99283; 96372; J1885

== ENCOUNTER 2020-12-03 22:33 | Emergency (ER) | payer OTHER ==
[2020-12-03 22:48] VITALS: TEMP 97.6
[2020-12-04 00:22] VITALS: BP 172/76; PULSE 87; RESP 19
[2020-12-04] MEDS ORDERED: SODIUM CHLORIDE 0.9% 1,000 ML IV STA ×3 (00:24→02:01)
--- NOTE | 2020-12-04 00:24 | ED ---
Dizziness HPI - General Chief Complaint: Dizziness Stated Complaint: Weakness, fall, chest pain, vomiting Time Seen by Provider: 12/04/20 00:07 Source: patient, RN notes reviewed, old records reviewed Limitations: no limitations - History of Present Illness Initial Comments: This is a 50-year-old male DF for evaluation patient Dese for evaluation regards to dizziness and episode of syncope following down as well as having is had some headache and chest pain. Patient states multiple events of similar has happened in the past. The symptoms happened while patient was brought to go to work today. He presents to the ER a few times but never really had a significant diagnosis. Patient this time is no complaints patient has history of diabetes heart failure cholesterol. MD Complaint: dizziness, lightheadedness, near syncope -: hour(s) Timing: sudden onset Description: difficulty walking, near-syncope History of Same: Yes History of Trauma: Yes Severity: mild Improves With: remaining still Worsens With: movement Associated Symptoms: chest pain - Related Data Home Medications Medication Instructions Recorded Confirmed Gabapentin 800 mg PO TID 03/31/20 11/13/20 DULoxetine HCL [Cymbalta] 60 mg PO DAILY 04/01/20 11/13/20 Acetaminophen Tab [Tylenol] 650 mg PO Q4H PRN 07/25/20 11/13/20 Albuterol Sulfate [Proair Hfa] 2 puff INHALATION RT-Q6H PRN 07/25/20 11/13/20 Fluticasone Propion/Salmeterol 1 puff INHALATION RT-BID 07/25/20 11/13/20 [Wixela 250-50 Inhub] Insulin Glargine,Hum.rec.anlog 56 unit SQ HS 10/03/20 11/13/20 [Wilagljonny Lazar U-100] Ketorolac 0.5% Ophth Soln [Acular 1 drops RIGHT EYE QID 10/03/20 11/13/20 0.5%] Ofloxacin 0.3% Ophth Soln [Ocuflox 1 drop RIGHT EYE TID 10/03/20 11/13/20 Ophth Soln] Semaglutide [Ozempic] 1 mg SQ TH 10/03/20 11/13/20 prednisoLONE ACETATE [Pred Forte 1 drop RIGHT EYE QID 10/03/20 11/13/20 1%] Previous Rx's Medication Instructions Recorded Omeprazole [PriLOSEC] 40 mg PO AC-BRKFST #14 amparo. 11/04/19 Nitroglycerin Sl Tabs [Nitrostat] 0.4 mg SUBLINGUAL Q5M PRN #30 tab 11/05/19 Atorvastatin [Lipitor] 40 mg PO DAILY #30 tab 10/13/20 Midodrine [ProAmatine] 2.5 mg PO AC-TID #50 tab 10/13/20 captopriL [Capoten] 12.5 mg PO HS #15 tab 10/13/20 traZODone HCL [Desyrel] 100 mg PO HS #30 tab 10/13/20 Sulfamethox-Tmp 800-160Mg [Bactrim 1 tab PO Q12HR #14 tab 11/13/20 DS 800-160 mg] Allergies Allergy/AdvReac Type Severity Reaction Status Date / Time No Known Allergies Allergy Verified 12/03/20 22:48 Review of Systems ROS Statement: Those systems with pertinent positive or pertinent negative responses have been documented in the HPI. ROS Other: All systems not noted in ROS Statement are negative. Past Medical History Past Medical History: Heart Failure, Diabetes Mellitus, Hyperlipidemia, Hyperte nsion Additional Past Medical History / Comment(s): IDDM type II, neuropathy bilateral feet, gout, right eye catarct removal . History of Any Multi-Drug Resistant Organisms: MRSA Date of last positivie culture/infection: 10/04/20 MDRO Source:: Right Knee Past Surgical History: Cholecystectomy Additional Past Surgical History / Comment(s): I&D scrotal abscess, I&D back abscess Past Anesthesia/Blood Transfusion Reactions: No Reported Reaction Past Psychological History: Anxiety Smoking Status: Current every day smoker Past Alcohol Use History: Occasional Past Drug Use History: None Reported - Past Family History Mother Family Medical History: Diabetes Mellitus Father History Unknown: Yes General Exam Limitations: no limitations General appearance: alert, in no apparent distress Head exam: Present: atraumatic, normocephalic, normal inspection Eye exam: Present: normal appearance, PERRL, EOMI. Absent: scleral icterus, conjunctival injection, periorbital swelling ENT exam: Present: normal exam, mucous membranes moist Neck exam: Present: normal inspection. Absent: tenderness, meningismus, lymphadenopathy Respiratory exam: Present: normal lung sounds bilaterally. Absent: respiratory distress, wheezes, rales, rhonchi, stridor Cardiovascular Exam: Present: regular rate, normal rhythm, normal heart sounds. Absent: systolic murmur, diastolic murmur, rubs, gallop, clicks GI/Abdominal exam: Present: soft, normal bowel sounds. Absent: distended, tenderness, guarding, rebound, rigid Extremities exam: Present: normal inspection, full ROM, normal capillary refill. Absent: tenderness, pedal edema, joint swelling, calf tenderness Back exam: Present: normal inspection Neurological exam: Present: alert, oriented X3, CN II-XII intact Psychiatric exam: Present: normal affect, normal mood Skin exam: Present: warm, dry, intact, normal color. Absent: rash Course Vital Signs 12/03/20 12/04/20 22:45 00:19 Temperature 97.6 F Pulse Rate 83 87 Respiratory 18 19 Rate Blood Pressure 180/81 172/76 O2 Sat by Pulse 99 99 Oximetry - Reevaluation(s) Reevaluation #1: 12/04/20 01:41 Medical record is reviewed Reevaluation #2: 12/04/20 01:41 No recurrent syncope here in the ER Reevaluation #3: 12/04/20 01:41 Patient symptoms remain resolved and can be discharged Medical Decision Making - Medical Decision Making 50 male with syncopal event, no real significant trauma testing is negative here in the ER he can be discharged home - Lab Data Result diagrams: 12/04/20 00:24 12/04/20 00:24 Lab Results 12/04/20 12/04/20 12/04/20 Range/Units 00:24 00:24 00:24 WBC 5.8 (3.8-10.6) k/uL RBC 3.34 L (4.30-5.90) m/uL Hgb 9.9 L (13.0-17.5) gm/dL Hct 29.9 L (39.0-53.0) % MCV 89.5 D (80.0-100.0) fL MCH 29.8 (25.0-35.0) pg MCHC 33.3 (31.0-37.0) g/dL RDW 12.8 (11.5-15.5) % Plt Count 219 (150-450) k/uL MPV 9.0 Neutrophils % 67 % Lymphocytes % 20 % Monocytes % 6 % Eosinophils % 4 % Basophils % 1 % Neutrophils # 3.9 (1.3-7.7) k/uL Lymphocytes # 1.2 (1.0-4.8) k/uL Monocytes # 0.4 (0-1.0) k/uL Eosinophils # 0.3 (0-0.7) k/uL Basophils # 0.1 (0-0.2) k/uL PT 9.7 (9.0-12.0) sec INR 0.9 (<1.2) APTT 22.6 (22.0-30.0) sec D-Dimer 0.46 (<0.60) mg/L FEU Sodium 125 L (137-145) mmol/L Potassium 5.3 H (3.5-5.1) mmol/L Chloride 93 L (98-107) mmol/L Carbon Dioxide 23 (22-30) mmol/L Anion Gap 9 mmol/L BUN 51 H (9-20) mg/dL Creatinine 1.99 H (0.66-1.25) mg/dL Est GFR (CKD-EPI)AfAm 44 (>60 ml/min/1.73 sqM) Est GFR (CKD-EPI)NonAf 38 (>60 ml/min/1.73 sqM) Glucose 743 H* (74-99) mg/dL Plasma Lactic Acid Don (0.7-2.0) mmol/L Calcium 8.7 (8.4-10.2) mg/dL Phosphorus 5.5 H (2.5-4.5) mg/dL Magnesium 2.2 (1.6-2.3) mg/dL Total Bilirubin 0.4 (0.2-1.3) mg/dL AST 27 (17-59) U/L ALT 32 (4-49) U/L Alkaline Phosphatase 163 H (38-126) U/L Creatine Kinase 220 H (55-170) U/L NT-Pro-B Natriuret Pep pg/mL Total Protein 6.8 (6.3-8.2) g/dL Albumin 3.6 (3.5-5.0) g/dL 12/04/20 12/04/20 Range/Units 00:24 00:25 WBC (3.8-10.6) k/uL RBC (4.30-5.90) m/uL Hgb (13.0-17.5) gm/dL Hct (39.0-53.0) % MCV (80.0-100.0) fL MCH (25.0-35.0) pg MCHC (31.0-37.0) g/dL RDW (11.5-15.5) % Plt Count (150-450) k/uL MPV Neutrophils % % Lymphocytes % % Monocytes % % Eosinophils % % Basophils % % Neutrophils # (1.3-7.7) k/uL Lymphocytes # (1.0-4.8) k/uL Monocytes # (0-1.0) k/uL Eosinophils # (0-0.7) k/uL Basophils # (0-0.2) k/uL PT (9.0-12.0) sec INR (<1.2) APTT (22.0-30.0) sec D-Dimer (<0.60) mg/L FEU Sodium (137-145) mmol/L Potassium (3.5-5.1) mmol/L Chloride (98-107) mmol/L Carbon Dioxide (22-30) mmol/L Anion Gap mmol/L BUN (9-20) mg/dL Creatinine (0.66-1.25) mg/dL Est GFR (CKD-EPI)AfAm (>60 ml/min/1.73 sqM) Est GFR (CKD-EPI)NonAf (>60 ml/min/1.73 sqM) Glucose (74-99) mg/dL Plasma Lactic Acid Don 1.2 (0.7-2.0) mmol/L Calcium (8.4-10.2) mg/dL Phosphorus (2.5-4.5) mg/dL Magnesium (1.6-2.3) mg/dL Total Bilirubin (0.2-1.3) mg/dL AST (17-59) U/L ALT (4-49) U/L Alkaline Phosphatase (38-126) U/L Creatine Kinase (55-170) U/L NT-Pro-B Natriuret Pep 701 pg/mL Total Protein (6.3-8.2) g/dL Albumin (3.5-5.0) g/dL Disposition Clinical Impression: Syncope, Dizziness Disposition: HOME SELF-CARE Condition: Good Instructions (If sedation given, give patient instructions): Dizziness (ED) Is patient prescribed a controlled substance at d/c from ED?: No Referrals: Meet Fontanez, [Primary Care Provider] - 1-2 days
[2020-12-04 01:30] LABS: Basophils # (A) 0.1 k/uL (0-0.2); Basophils % (A) 1 %; Eosinophils # (A) 0.3 k/uL (0-0.7); Eosinophils % (A) 4 %; HCT 29.9 % (39.0-53.0); HGB 9.9 gm/dL (13.0-17.5); Lymphocytes # (A) 1.2 k/uL (1.0-4.8); Lymphocytes % (A) 20 %; MCH 29.8 pg (25.0-35.0); MCHC 33.3 g/dL (31.0-37.0); Monocytes # (A) 0.4 k/uL (0-1.0); Monocytes % (A) 6 %; Neutrophils # (A) 3.9 k/uL (1.3-7.7); Neutrophils % (A) 67 %; Platelet Count 219 k/uL (150-450); RBC 3.34 m/uL (4.30-5.90); RDW 12.8 % (11.5-15.5); WBC 5.8 k/uL (3.8-10.6)
[2020-12-04 01:33] LABS: D-Dimer 0.46 mg/L FEU (<0.60); INR 0.9 (<1.2); MCV 89.5 fL (80.0-100.0); Partial Thromboplastin Time 22.6 sec (22.0-30.0); Prothrombin Time 9.7 sec (9.0-12.0)
[2020-12-04 01:44] LABS: Albumin 3.6 g/dL (3.5-5.0); Calcium 8.7 mg/dL (8.4-10.2); Magnesium 2.2 mg/dL (1.6-2.3); Phosphorus 5.5 mg/dL (2.5-4.5); Potassium 5.3 mmol/L (3.5-5.1); Total Bilirubin 0.4 mg/dL (0.2-1.3); Total Protein 6.8 g/dL (6.3-8.2)
[2020-12-04] MEDS ORDERED: SODIUM CHLORIDE 0.9% 500 ML 500 ML IV STA (02:01)
[2020-12-04] MEDS ORDERED: INSULIN REGULAR 100 UNIT/ML VIAL IV ONE ×2 (02:04→03:33)
[2020-12-04] MEDS ORDERED: INSULIN REGULAR 100 UNIT/ML VIAL SQ ONE (02:04)
[2020-12-04 02:20] LABS: Appearance,Urine Clear (Clear); Bilirubin,Urine Negative (Negative); Blood,Urine Small (Negative); Color,Urine Colorless; Glucose,Urine (UA) 4+ (Negative); Ketones,Urine Negative (Negative); Leukocyte Esterase,Urine Negative (Negative); Nitrite,Urine Negative (Negative); Protein,Urine 1+ (Negative); RBC,Urine 3 /hpf (0-5); Specific Gravity,Urine 1.022 (1.001-1.035); Urobilinogen,Urine <2.0 mg/dL (<2.0); WBC,Urine <1 /hpf (0-5)
[2020-12-04 03:33] LABS: Glucose,Whole Blood 568 mg/dL (75-99)
[2020-12-04] MEDS ORDERED: IBUPROFEN 600 MG TAB PO STA (03:33)
== END 2020-12-04 03:56 | disposition home or self-care (01) ==
LOC: EC 22:33
DX: R42 Dizziness and giddiness (principal); R55 Syncope and collapse; I11.0 Hypertensive heart disease with heart failure; I50.9 Heart failure, unspecified; E11.9 Type 2 diabetes mellitus without complications; E78.5 Hyperlipidemia, unspecified; F17.200 Nicotine dependence, unspecified, uncomplicated; Z79.1 Long term (current) use of non-steroidal anti-inflammatories (NSAID); Z79.4 Long term (current) use of insulin; Z79.51 Long term (current) use of inhaled steroids
CPT/HCPCS: 36415; 80053; 81001; 82550; 83605; 83735; 83880; 84100; 84484; 85025; 85379; 85610; 85730; 93005; 96361; 96374; 96376; 99285

== ENCOUNTER 2020-12-16 14:20 | Inpatient (IN) | payer OTHER ==
[2020-12-16 15:05] LABS: Glucose,Whole Blood >600 mg/dL (75-99)
[2020-12-16 15:29] LABS: Basophils # (A) 0.1 k/uL (0-0.2); Basophils % (A) 1 %; Eosinophils # (A) 0.1 k/uL (0-0.7); Eosinophils % (A) 1 %; HCT 29.3 % (39.0-53.0); Lymphocytes # (A) 0.8 k/uL (1.0-4.8); Lymphocytes % (A) 7 %; MCH 29.8 pg (25.0-35.0); MCV 87.9 fL (80.0-100.0); Mean Platelet Volume 8.4; Monocytes # (A) 0.7 k/uL (0-1.0); Monocytes % (A) 6 %; Neutrophils # (A) 8.8 k/uL (1.3-7.7); Neutrophils % (A) 83 %; Platelet Count 259 k/uL (150-450); RBC 3.34 m/uL (4.30-5.90); RDW 12.1 % (11.5-15.5); WBC 10.6 k/uL (3.8-10.6)
[2020-12-16 15:38] LABS: INR 0.9 (<1.2); Partial Thromboplastin Time 23.4 sec (22.0-30.0); Prothrombin Time 10.2 sec (9.0-12.0)
[2020-12-16] MEDS ORDERED: SODIUM CHLORIDE 0.9% 1,000 ML IV STA (15:39)
[2020-12-16 15:40] LABS: ALT 17 U/L (4-49); AST 21 U/L (17-59); African American GFR (CKD) 51 (>60 ml/min/1.73 sqM); Albumin 3.4 g/dL (3.5-5.0); Alkaline Phosphatase 160 U/L (38-126); Anion Gap 8 mmol/L; Blood Urea Nitrogen 44 mg/dL (9-20); Calcium 8.4 mg/dL (8.4-10.2); Carbon Dioxide 27 mmol/L (22-30); Chloride 90 mmol/L (98-107); Non-African American GFR(CKD) 44 (>60 ml/min/1.73 sqM); Sodium 125 mmol/L (137-145); Total Bilirubin 0.5 mg/dL (0.2-1.3); Total Protein 6.7 g/dL (6.3-8.2)
[2020-12-16 15:52] LABS: Glucose 623 mg/dL (74-99)
[2020-12-16 16:08] LABS: Appearance,Urine Clear (Clear); Bacteria,Urine Rare /hpf; Bilirubin,Urine Negative (Negative); Blood,Urine Small (Negative); Color,Urine Light Yellow; Glucose,Urine (UA) 4+ (Negative); Ketones,Urine Negative (Negative); Leukocyte Esterase,Urine Negative (Negative); Nitrite,Urine Negative (Negative); Protein,Urine 2+ (Negative); RBC,Urine 9 /hpf (0-5); Specific Gravity,Urine 1.028 (1.001-1.035); Squamous Epithelial Cell,Urine <1 /hpf (0-4); Urobilinogen,Urine <2.0 mg/dL (<2.0); WBC,Urine 1 /hpf (0-5)
--- NOTE | 2020-12-16 16:19 | XR ---
EXAMINATION TYPE: XR chest 2V DATE OF EXAM: 12/16/2020 COMPARISON: Chest x-ray September 06, 2020. CT chest October 06, 2020. HISTORY: Chest pain. TECHNIQUE: Frontal and lateral views of the chest are obtained. FINDINGS: There is no focal air space opacity, pleural effusion, or pneumothorax seen. The cardiac silhouette size is mildly enlarged on current study. The osseous structures are intact. Overlying E KG leads redemonstrated. IMPRESSION: Mild cardiomegaly without acute pulmonary process.
[2020-12-16] MEDS ORDERED: INSULIN REGULAR 100 UNIT/ML VIAL IV STA (16:21)
[2020-12-16] MEDS ORDERED: LIDOCAINE 1% INJ 10MG/ML (20 ML MDV) SQ STA (16:46)
[2020-12-16 18:00] LABS: Glucose,Whole Blood 399 mg/dL (75-99)
[2020-12-16] MEDS ORDERED: amLODIPine 5 MG TAB PO STA (18:24)
[2020-12-16] MEDS ORDERED: VANCOMYCIN IV PER PHARMACY 1 EACH MISC MISCELLANE PRN (18:45)
--- NOTE | 2020-12-16 18:53 | ED ---
General Adult HPI - General Chief complaint: Skin/Abscess/Foreign Body Stated complaint: open abscess on both legs, chest pain Time Seen by Provider: 12/16/20 15:23 Source: patient, RN notes reviewed Mode of arrival: wheelchair Limitations: no limitations - History of Present Illness Initial comments: 50-year-old male with a past medical history of hyperlipidemia, hypertension, heart failure, IDDM type II presents to the emergency room for several com plaints. Patient states that he has abscesses on his legs. States that these have been ongoing for several months however worsened significantly in the past few days. States he had a fever over the weekend. Patient reports that he has had to be admitted for I&D in the past. Patient also states she has had mild chest pain starting earlier today. Discharge as a dull pain. States it is persistent. Denies alleviating or aggravating symptoms. Denies radiating pain.Patient has no other complaints at this time including shortness of breath, chest pain, abdominal pain, nausea or vomiting, headache, or visual changes. - Related Data Home Medications Medication Instructions Recorded Confirmed Gabapentin 800 mg PO TID 03/31/20 12/16/20 DULoxetine HCL [Cymbalta] 60 mg PO DAILY 04/01/20 12/16/20 Acetaminophen Tab [Tylenol] 650 mg PO Q4H PRN 07/25/20 12/16/20 Albuterol Sulfate [Proair Hfa] 2 puff INHALATION RT-Q6H PRN 07/25/20 12/16/20 Insulin Glargine,Hum.rec.anlog 56 unit SQ HS 10/03/20 12/16/20 [Wilagljonny Lazar U-100] Semaglutide [Ozempic] 1 mg SQ TH 10/03/20 12/16/20 Fluticasone/Salmeterol [Advair 1 puff INHALATION RT-BID 12/16/20 12/16/20 250-50 Diskus] Furosemide [Lasix] 20 mg PO DAILY PRN 12/16/20 12/16/20 Midodrine HCl [ProAmantine] 2.5 mg PO AC-TID 12/16/20 12/16/20 Nitroglycerin Sl Tabs [Nitrostat] 0.4 mg SL Q5M PRN 12/16/20 12/16/20 Ondansetron [Zofran] 4 mg PO TID PRN 12/16/20 12/16/20 Sulfamethox-Tmp 800-160Mg [Bactrim 1 tab PO BID 12/16/20 12/16/20 DS 800-160 mg] amLODIPine [Norvasc] 5 mg PO DAILY 12/16/20 12/16/20 hydrALAZINE HCL [Apresoline] 50 mg PO AC-TID 12/16/20 12/16/20 Previous Rx's Medication Instructions Recorded Omeprazole [PriLOSEC] 40 mg PO AC-BRKFST #14 capsule. 11/04/19 Atorvastatin [Lipitor] 40 mg PO DAILY #30 tab 10/13/20 traZODone HCL [Desyrel] 100 mg PO HS #30 tab 10/13/20 Allergies Allergy/AdvReac Type Severity Reaction Status Date / Time No Known Allergies Allergy Verified 12/16/20 18:05 Review of Systems ROS Statement: Those systems with pertinent positive or pertinent negative responses have been documented in the HPI. ROS Other: All systems not noted in ROS Statement are negative. Past Medical History Past Medical History: Heart Failure, Diabetes Mellitus, Hyperlipidemia, Hypertension Additional Past Medical History / Comment(s): IDDM type II, neuropathy bilateral feet, gout, right eye catarct removal . History of Any Multi-Drug Resistant Organisms: MRSA Date of last positivie culture/infection: 10/04/20 MDRO Source:: Right Knee Past Surgical History: Cholecystectomy Additional Past Surgical History / Comment(s): I&D scrotal abscess, I&D back abscess Past Anesthesia/Blood Transfusion Reactions: No Reported Reaction Past Psychological History: Anxiety Smoking Status: Current every day smoker Past Alcohol Use History: Occasional Past Drug Use History: None Reported - Past Family History Mother Family Medical History: Diabetes Mellitus Father History Unknown: Yes General Exam - General Exam Comments Initial Comments: Patient has several abscesses on the bilateral lower extremities. Of note he has a large abscess to the right proximal anterior thigh, medial knee, as well as the lateral lower extremity. mild surrounding erythema. Patient has 2 less pronounced abscesses noted to the left leg. Cap refill < 2 seconds BLE. Limitations: no limitations General appearance: alert Head exam: Present: atraumatic, normocephalic, normal inspection Eye exam: Present: normal appearance, PERRL, EOMI. Absent: scleral icterus, conjunctival injection, periorbital swelling ENT exam: Present: normal exam, mucous membranes moist Neck exam: Present: normal inspection. Absent: tenderness, meningismus, lymphadenopathy Respiratory exam: Present: normal lung sounds bilaterally. Absent: respiratory distress, wheezes, rales, rhonchi, stridor Cardiovascular Exam: Present: regular rate, normal rhythm, normal heart sounds. Absent: systolic murmur, diastolic murmur, rubs, gallop, clicks GI/Abdominal exam: Present: soft, normal bowel sounds. Absent: distended, tenderness, guarding, rebound, rigid Course Vital Signs 12/16/20 12/16/20 12/16/20 15:03 15:50 18:38 Temperature 97.8 F Pulse Rate 93 90 100 Respiratory 20 18 18 Rate Blood Pressure 190/87 200/96 142/76 O2 Sat by Pulse 100 98 98 Oximetry EKG Findings - EKG Comments: EKG Findings:: Normal sinus rhythm, ventricular rate 89, HI interval 148, QTC 440 Procedures - Incision & Drainage Consent Obtained: verbal consent Indication: abscess Site: lower extremity (proximal anterior thigh, medial knee, and lateral lower leg) Anesthetic Used: lidocaine 1% I&D Cleaning Method: Chloroprep Sterile Field Used?: Yes Scalpel Used: #11 I&D Drainage Obtained: Pus Patient Tolerated Procedure: well, no complications Medical Decision Making - Medical Decision Making Vitals are stable. Physical exam does reveal large abscesses noted of the lower extremities. I did incise and drain the proximal anterior thigh abscess, medial knee abscess, and lateral lower leg abscess on the right lower extremity. CBC shows a white blood cell count of 10.6 with a left shift of 8.8. Patient started on Vanco and cefazolin. Patient also has a CMP with hyperglycemia of 623. Pseudohyponatremia noted of 125. Patient has chronic kidney disease. We did give patient insulin bolus and fluid bolus which did improve his glucose to 399. Acetone negative, anion gap 8. No ketones in the urine. EKG shows a normal sinus rhythm. Troponin negative. Patient will be admitted for ID consult as well as cardiology consultation for his chest pain. Discussed case with Dr. Pablo who does accept patient. - Lab Data Result diagrams: 12/16/20 15:21 12/16/20 15:21 Lab Results 12/16/20 12/16/2021 Range/Units 15:04 15:20 15:21 WBC 10.6 (3.8-10.6) k/uL RBC 3.34 L (4.30-5.90) m/uL Hgb 10.0 L (13.0-17.5) gm/dL Hct 29.3 L (39.0-53.0) % MCV 87.9 (80.0-100.0) fL MCH 29.8 (25.0-35.0) pg MCHC 34.0 (31.0-37.0) g/dL RDW 12.1 (11.5-15.5) % Plt Count 259 (150-450) k/uL MPV 8.4 Neutrophils % 83 % Lymphocytes % 7 % Monocytes % 6 % Eosinophils % 1 % Basophils % 1 % Neutrophils # 8.8 H (1.3-7.7) k/uL Lymphocytes # 0.8 L (1.0-4.8) k/uL Monocytes # 0.7 (0-1.0) k/uL Eosinophils # 0.1 (0-0.7) k/uL Basophils # 0.1 (0-0.2) k/uL PT (9.0-12.0) sec INR (<1.2) APTT (22.0-30.0) sec Sodium (137-145) mmol/L Potassium (3.5-5.1) mmol/L Chloride (98-107) mmol/L Carbon Dioxide (22-30) mmol/L Anion Gap mmol/L BUN (9-20) mg/dL Creatinine (0.66-1.25) mg/dL Est GFR (CKD-EPI)AfAm (>60 ml/min/1.73 sqM) Est GFR (CKD-EPI)NonAf (>60 ml/min/1.73 sqM) Glucose (74-99) mg/dL POC Glucose (mg/dL) >600 H (75-99) mg/dL POC Glu Clock And Watch Hands Dipper ID Gasper Kerri Plasma Lactic Acid Don 0.9 (0.7-2.0) mmol/L Calcium (8.4-10.2) mg/dL Magnesium (1.6-2.3) mg/dL Total Bilirubin (0.2-1.3) mg/dL AST (17-59) U/L ALT (4-49) U/L Alkaline Phosphatase (38-126) U/L Troponin I (0.000-0.034) ng/mL Total Protein (6.3-8.2) g/dL Albumin (3.5-5.0) g/dL Urine Color Urine Appearance (Clear) Urine pH (5.0-8.0) Ur Specific Biddle (1.001-1.035) Urine Protein (Negative) Urine Glucose (UA) (Negative) Urine Ketones (Negative) Urine Blood (Negative) Urine Nitrite (Negative) Urine Bilirubin (Negative) Urine Urobilinogen (<2.0) mg/dL Ur Leukocyte Esterase (Negative) Urine RBC (0-5) /hpf Urine WBC (0-5) /hpf Ur Squamous Epith Cells (0-4) /hpf Urine Bacteria (None) /hpf Acetone, Qual (Negative) Coronavirus (PCR) (Not Detectd) 12/16/20 12/16/20 12/16/20 Range/Units 15:21 15:21 15:21 WBC (3.8-10.6) k/uL RBC (4.30-5.90) m/uL Hgb (13.0-17.5) gm/dL Hct (39.0-53.0) % MCV (80.0-100.0) fL MCH (25.0-35.0) pg MCHC (31.0-37.0) g/dL RDW (11.5-15.5) % Plt Count (150-450) k/uL MPV Neutrophils % % Lymphocytes % % Monocytes % % Eosinophils % % Basophils % % Neutrophils # (1.3-7.7) k/uL Lymphocytes # (1.0-4.8) k/uL Monocytes # (0-1.0) k/uL Eosinophils # (0-0.7) k/uL Basophils # (0-0.2) k/uL PT 10.2 (9.0-12.0) sec INR 0.9 (<1.2) APTT 23.4 (22.0-30.0) sec Sodium 125 L (137-145) mmol/L Potassium 5.0 (3.5-5.1) mmol/L Chloride 90 L (98-107) mmol/L Carbon Dioxide 27 (22-30) mmol/L Anion Gap 8 mmol/L BUN 44 H (9-20) mg/dL Creatinine 1.77 H (0.66-1.25) mg/dL Est GFR (CKD-EPI)AfAm 51 (>60 ml/min/1.73 sqM) Est GFR (CKD-EPI)NonAf 44 (>60 ml/min/1.73 sqM) Glucose 623 H* (74-99) mg/dL POC Glucose (mg/dL) (75-99) mg/dL POC Glu Clock And Watch Hands Dipper ID Plasma Lactic Acid Don (0.7-2.0) mmol/L Calcium 8.4 (8.4-10.2) mg/dL Magnesium 2.0 (1.6-2.3) mg/dL Total Bilirubin 0.5 (0.2-1.3) mg/dL AST 21 (17-59) U/L ALT 17 (4-49) U/L Alkaline Phosphatase 160 H (38-126) U/L Troponin I <0.012 (0.000-0.034) ng/mL Total Protein 6.7 (6.3-8.2) g/dL Albumin 3.4 L (3.5-5.0) g/dL Urine Color Urine Appearance (Clear) Urine pH (5.0-8.0) Ur Specific Biddle (1.001-1.035) Urine Protein (Negative) Urine Glucose (UA) (Negative) Urine Ketones (Negative) Urine Blood (Negative) Urine Nitrite (Negative) Urine Bilirubin (Negative) Urine Urobilinogen (<2.0) mg/dL Ur Leukocyte Esterase (Negative) Urine RBC (0-5) /hpf Urine WBC (0-5) /hpf Ur Squamous Epith Cells (0-4) /hpf Urine Bacteria (None) /hpf Acetone, Qual Negative (Negative) Coronavirus (PCR) (Not Detectd) 12/16/20 12/16/20 12/16/20 Range/Units 15:46 15:46 17:58 WBC (3.8-10.6) k/uL RBC (4.30-5.90) m/uL Hgb (13.0-17.5) gm/dL Hct (39.0-53.0) % MCV (80.0-100.0) fL MCH (25.0-35.0) pg MCHC (31.0-37.0) g/dL RDW (11.5-15.5) % Plt Count (150-450) k/uL MPV Neutrophils % % Lymphocytes % % Monocytes % % Eosinophils % % Basophils % % Neutrophils # (1.3-7.7) k/uL Lymphocytes # (1.0-4.8) k/uL Monocytes # (0-1.0) k/uL Eosinophils # (0-0.7) k/uL Basophils # (0-0.2) k/uL PT (9.0-12.0) sec INR (<1.2) APTT (22.0-30.0) sec Sodium (137-145) mmol/L Potassium (3.5-5.1) mmol/L Chloride (98-107) mmol/L Carbon Dioxide (22-30) mmol/L Anion Gap mmol/L BUN (9-20) mg/dL Creatinine (0.66-1.25) mg/dL Est GFR (CKD-EPI)AfAm (>60 ml/min/1.73 sqM) Est GFR (CKD-EPI)NonAf (>60 ml/min/1.73 sqM) Glucose (74-99) mg/dL POC Glucose (mg/dL) 399 H (75-99) mg/dL POC Glu Clock [employer] Watch Hands Dipper ID Luisa Amato Plasma Lactic Acid Don (0.7-2.0) mmol/L Calcium (8.4-10.2) mg/dL Magnesium (1.6-2.3) mg/dL Total Bilirubin (0.2-1.3) mg/dL AST (17-59) U/L ALT (4-49) U/L Alkaline Phosphatase (38-126) U/L Troponin I (0.000-0.034) ng/mL Total Protein (6.3-8.2) g/dL Albumin (3.5-5.0) g/dL Urine Color Light Yellow Urine Appearance Clear (Clear) Urine pH 6.0 (5.0-8.0) Ur Specific Biddle 1.028 (1.001-1.035) Urine Protein 2+ H (Negative) Urine Glucose (UA) 4+ H (Negative) Urine Ketones Negative (Negative) Urine Blood Small H (Negative) Urine Nitrite Negative (Negative) Urine Bilirubin Negative (Negative) Urine Urobilinogen <2.0 (<2.0) mg/dL Ur Leukocyte Esterase Negative (Negative) Urine RBC 9 H (0-5) /hpf Urine WBC 1 (0-5) /hpf Ur Squamous Epith Cells <1 (0-4) /hpf Urine Bacteria Rare H (None) /hpf Acetone, Qual (Negative) Coronavirus (PCR) Not Detected (Not Detectd) Disposition Clinical Impression: Multiple abscesses of both legs, CKD (chronic kidney disease), Hyperglycemia, Chest pain Disposition: ADMITTED IP TO THIS HOSP Is patient prescribed a controlled substance at d/c from ED?: No Referrals: Meet Fontanez DO [Primary Care Provider] - 1-2 days Time of Disposition: 18:54
[2020-12-16] MEDS ORDERED: ASPIRIN 81 MG PO STA (18:57)
[2020-12-16] MEDS ORDERED: ALBUTEROL NEBULIZED 2.5 MG/3 ML INHALATION PRN (19:00)
[2020-12-16] MEDS ORDERED: NITROGLYCERIN SL TABS 0.4 MG TAB SUBLINGUAL PRN (19:00)
[2020-12-16] MEDS ORDERED: FUROSEMIDE 20 MG TAB PO PRN (19:00)
[2020-12-16] MEDS ORDERED: VANCOMYCIN 1,500 MG in SODIUM CHLORIDE 0.9% 250 ML IVPB ONE (19:30)
[2020-12-16] MEDS: SYMBICORT 80-4.5 MCG INHALER INHALATION SCH (20:30)
[2020-12-16 21:02] LABS: Glucose,Whole Blood 367 mg/dL (75-99)
[2020-12-16] MEDS: GABAPENTIN 400 MG CAP PO SCH (21:47)
[2020-12-16] MEDS: ACETAMINOPHEN TAB 325 MG TAB PO PRN (21:47)
[2020-12-16] MEDS: traZODone HCL 100 MG TAB PO SCH (21:48)
[2020-12-16] MEDS: INSULIN ASPART (NovoLOG) 100 UNIT/ML VIAL SQ SCH (21:48)
[2020-12-17 07:10] LABS: Glucose,Whole Blood 363 mg/dL (75-99)
[2020-12-17] MEDS: SYMBICORT 80-4.5 MCG INHALER INHALATION SCH ×2 (07:54→19:52)
[2020-12-17] MEDS ORDERED: ASPIRIN 325 MG TAB PO SCH (09:00)
[2020-12-17 09:53] LABS: Chol/HDL Ratio 3.53; LDL Cholesterol,Calculated 62.8 mg/dL (0.0-131.0); VLDL Calculation 46.2 mg/dL (5.00-40.00)
[2020-12-17] MEDS ORDERED: INSULIN NPH 300 UNIT/3 ML VIAL SQ SCH (11:00)
[2020-12-17] MEDS: hydrALAZINE HCL 50 MG TAB PO SCH ×3 (11:13→17:27)
[2020-12-17] MEDS: ATORVASTATIN 40 MG TAB PO SCH (11:13)
[2020-12-17] MEDS: MIDODRINE 5 MG TAB PO SCH ×3 (11:14→17:27)
[2020-12-17] MEDS: DULoxetine HCL 60 MG CAPSULE.DR PO SCH (11:14)
[2020-12-17] MEDS: GABAPENTIN 400 MG CAP PO SCH ×3 (11:14→20:33)
[2020-12-17] MEDS: PANTOPRAZOLE 40 MG TABLET PO SCH (11:14)
[2020-12-17] MEDS: amLODIPine 5 MG TAB PO SCH (11:15)
[2020-12-17] MEDS: INSULIN ASPART (NovoLOG) 100 UNIT/ML VIAL SQ SCH ×4 (11:15→20:34)
--- NOTE | 2020-12-17 12:06 | P.CRDCN ---
History of Present Illness Consult date: 12/17/20 History of present illness: HISTORY OF PRESENT ILLNESS: This is a 50-year-old male with a past medical history significant for diabetes mellitus, hyperlipidemia, chronic kidney disease, diastolic congestive heart failure, former nicotine dependence, recurrent syncope, and orthostatic hypotension. Patient follows in the office with Dr. Dickson. We have been asked to see the patient in consultation for chest pain. Patient examined at the bedside. Patient states he recently came to the hospital because the wounds on his legs appear to be getting worse. Patient's blood sugars were noted to be in the 600s when he presented to the hospital. She also reports having an episode of chest pain that started yesterday while he was at home relaxing. He states it was a dull ache. He felt like his heart was pounding out of his chest but he did not feel as it was racing. He states the pain lasted for about an hour and was relieved after taking nitro. He states the pain is worse with deep inspiration and pain is reproducible with chest wall palpation. EKG reveals sinus mechanism with no signs of acute ischemia Chest xray mild cardiomegaly without acute pulmonary process Laboratory data: WBC 10.6. Hemoglobin 10.0. Platelet Count 259. Sodium 125. Potassium 5.0. BUN 44. Creatinine 1.77. Troponin negative 3 Current home cardiac medications include hydralazine 50 mg 3 times a day, amlodipine 5 mg daily, midodrine 2.5 mg 3 times a day, Lasix 20 mg daily as needed, Lipitor 40 mg daily Most recent echocardiogram obtained in October 2020 revealed ejection fraction greater than 55%, trace mitral regurgitation, and mild tricuspid regurgitation Patient underwent dobutamine stress echo in November 2019 which was negative for stress-induced ischemia REVIEW OF SYSTEMS: At the time of my exam: CONSTITUTIONAL: Denies fever or chills. HEENT: Denies blurred vision, vision changes, or eye pain. Denies hemoptysis CARDIOVASCULAR: Denies chest pain. Denies orthopnea. Denies PND. Denies palpitations RESPIRATORY: Denies shortness of breath. GASTROINTESTINAL: Denies abdominal pain. Denies nausea or vomiting. HEMATOLOGIC: Denies bleeding disorders. GENITOURINARY: Denies any blood in urine. SKIN: Denies pruitis. Denies rash. PHYSICAL EXAM: VITAL SIGNS: Reviewed. GENERAL: Well-developed in no acute distress. HEENT: Head is normocephalic. Pupils are equal, round. Sclerae anicteric. Mucous membranes of the mouth are moist. Neck supple. No JVD or thyromegaly LUNGS: Respirations even and unlabored. Lungs essentially clear to auscultation bilaterally. HEART: Regular rate and rhythm. S1 and S2 heard. ABDOMEN: Soft. Nondistended. Nontender. EXTREMITIES: Normal range of motion. No clubbing or cyanosis. Peripheral pulses intact. Wounds to bilateral lower extremities noted. NEUROLOGIC: Awake and alert. Oriented x 3. ASSESSMENT: Chest pain Diabetes mellitus, uncontrolled Hypertension Hyperlipidemia Lower extremity wounds Chronic kidney disease History of dysautonomia, positive tilt table test History of orthostatic hypotension Chronic diastolic heart failure, currently euvolemic PLAN: An acute coronary event has been ruled out No need to repeat echocardiogram as this was performed in October 2020 Resume home cardiac medications No further inpatient workup from a cardiac standpoint We will sign off. Please reconsult if needed Patient to follow up outpatient with Dr. Dickson Nurse practitioner note has been reviewed by physician. Signing provider agrees with the documented findings, assessment, and plan of care. Past Medical History Past Medical History: Heart Failure, Diabetes Mellitus, Hyperlipidemia, Hypertension Additional Past Medical History / Comment(s): IDDM type II, neuropathy bilateral feet, gout, bilateral eye catarct removal . History of Any Multi-Drug Resistant Organisms: MRSA Date of last positivie culture/infection: 10/04/20 MDRO Source:: Right Knee Past Surgical History: Cholecystectomy Additional Past Surgical History / Comment(s): I&D scrotal abscess, I&D back abscess Past Anesthesia/Blood Transfusion Reactions: No Reported Reaction Past Psychological History: Anxiety Additional Psychological History / Comment(s): He is independent. He works in [employer]. Smoking Status: Former smoker Past Alcohol Use History: Occasional Additional Past Alcohol Use History / Comment(s): Pt started smoking in 1987 and quit 2 weeks ago. Past Drug Use History: None Reported - Past Family History Mother Family Medical History: Diabetes Mellitus Father History Unknown: Yes Medications and Allergies Home Medications Medication Instructions Recorded Confirmed Type Omeprazole [PriLOSEC] 40 mg PO AC-BRKFST #14 capsule. 11/04/19 12/16/20 Rx Gabapentin 800 mg PO TID 03/31/20 12/16/20 History DULoxetine HCL [Cymbalta] 60 mg PO DAILY 04/01/20 12/16/20 History Acetaminophen Tab [Tylenol] 650 mg PO Q4H PRN 07/25/20 12/16/20 History Albuterol Sulfate [Proair Hfa] 2 puff INHALATION RT-Q6H PRN 07/25/20 12/16/20 History Insulin Glargine,Hum.rec.anlog 56 unit SQ HS 10/03/20 12/16/20 History [Basaglar Kwikpen U-100] Semaglutide [Ozempic] 1 mg SQ TH 10/03/20 12/16/20 History Atorvastatin [Lipitor] 40 mg PO DAILY #30 tab 10/13/20 12/16/20 Rx traZODone HCL [Desyrel] 100 mg PO HS #30 tab 10/13/20 12/16/20 Rx Fluticasone/Salmeterol [Advair 1 puff INHALATION RT-BID 12/16/20 12/16/20 History 250-50 Diskus] Furosemide [Lasix] 20 mg PO DAILY PRN 12/16/20 12/16/20 History Midodrine HCl [ProAmantine] 2.5 mg PO AC-TID 12/16/20 12/16/20 History Nitroglycerin Sl Tabs [Nitrostat] 0.4 mg SL Q5M PRN 12/16/20 12/16/20 History Ondansetron [Zofran] 4 mg PO TID PRN 12/16/20 12/16/20 History Sulfamethox-Tmp 800-160Mg [Bactrim 1 tab PO BID 12/16/20 12/16/20 History DS 800-160 mg] amLODIPine [Norvasc] 5 mg PO DAILY 12/16/20 12/16/20 History hydrALAZINE HCL [Apresoline] 50 mg PO AC-TID 12/16/20 12/16/20 History Allergies Allergy/AdvReac Type Severity Reaction Status Date / Time No Known Allergies Allergy Verified 12/16/20 18:05 Physical Exam Vitals: Vital Signs Temp Pulse Pulse Resp BP BP Pulse Ox 12/17/20 08:06 99 12/17/20 07:52 97.8 F 81 16 164/80 99 12/17/20 02:19 97.7 F 77 18 102/61 100 12/17/20 01:09 20 12/16/20 20:52 101.1 F H 88 20 174/82 98 12/16/20 19:57 99.2 F 98 18 198/99 97 12/16/20 18:38 100 18 142/76 98 12/16/20 15:50 90 18 200/96 98 12/16/20 15:03 97.8 F 93 20 190/87 100 Intake and Output 12/16/20 12/17/20 12/17/20 22:59 06:59 14:59 Other: Voiding Method Toilet Toilet # Voids 1 2 Weight 79.832 kg Results 12/16/20 15:21 12/17/20 10:53 Cardiac Enzymes 12/16/20 12/16/20 12/16/20 Range/Units 00:28 15:21 15:21 AST 21 (17-59) U/L Troponin I <0.012 <0.012 (0.000-0.034) ng/mL 12/16/20 Range/Units 20:08 AST (17-59) U/L Troponin I <0.012 (0.000-0.034) ng/mL Coagulation 12/16/20 Range/Units 15:21 PT 10.2 (9.0-12.0) sec APTT 23.4 (22.0-30.0) sec Lipids 12/16/20 Range/Units 15:21 Triglycerides 231.0 H (0.0-149.0) mg/dL Cholesterol 152 (0-200) mg/dL HDL Cholesterol 43.0 (40.0-60.0) mg/dL Cholesterol/HDL Ratio 3.53 CBC 12/16/20 Range/Units 15:21 WBC 10.6 (3.8-10.6) k/uL RBC 3.34 L (4.30-5.90) m/uL Hgb 10.0 L (13.0-17.5) gm/dL Hct 29.3 L (39.0-53.0) % Plt Count 259 (150-450) k/uL Comprehensive Metabolic Panel 12/16/20 12/17/20 Range/Units 15:21 10:53 Sodium 125 L (137-145) mmol/L Potassium 5.0 (3.5-5.1) mmol/L Chloride 90 L (98-107) mmol/L Carbon Dioxide 27 (22-30) mmol/L BUN 44 H (9-20) mg/dL Creatinine 1.77 H 1.76 H (0.66-1.25) mg/dL Glucose 623 H* (74-99) mg/dL Calcium 8.4 (8.4-10.2) mg/dL AST 21 (17-59) U/L ALT 17 (4-49) U/L Alkaline Phosphatase 160 H (38-126) U/L Total Protein 6.7 (6.3-8.2) g/dL Albumin 3.4 L (3.5-5.0) g/dL Current Medications Generic Name Dose Route Start Last Admin Trade Name Freq PRN Reason Stop Dose Admin Acetaminophen 650 mg 12/16/20 19:00 12/16/20 21:47 Acetaminophen Tab 325 Mg Tab PO 650 mg Q4H PRN Administration Mild Pain or Fever > 100.5 Albuterol Sulfate 2.5 mg 12/16/20 19:00 Albuterol Nebulized 2.5 Mg/3 Ml INHALATION RT-Q6H PRN Shortness Of Breath Amlodipine Besylate 5 mg 12/17/20 09:00 12/17/20 11:15 Amlodipine 5 Mg Tab PO 5 mg DAILY LUIZA Administration Aspirin 325 mg 12/17/20 09:00 12/17/20 11:14 Aspirin 325 Mg Tab PO 325 mg DAILY LUIZA Administration Atorvastatin Calcium 40 mg 12/17/20 09:00 12/17/20 11:13 Atorvastatin 40 Mg Tab PO 40 mg DAILY LUIZA Administration Budesonide/Formoterol Fumarate 2 puff 12/16/20 20:00 12/17/20 07:54 Symbicort 80-4.5 Mcg Inhaler INHALATION 2 puff RT-BID LUIZA Administration Duloxetine HCl 60 mg 12/17/20 09:00 12/17/20 11:14 Duloxetine Hcl 60 Mg Capsule.Dr PO 60 mg DAILY LUIZA Administration Furosemide 20 mg 12/16/20 19:00 Furosemide 20 Mg Tab PO DAILY PRN Edema Gabapentin 800 mg 12/16/20 22:00 12/17/20 11:14 Gabapentin 400 Mg Cap PO 800 mg TID LUIZA Administration Hydralazine HCl 50 mg 12/17/20 07:30 12/17/20 11:13 Hydralazine Hcl 50 Mg Tab PO 50 mg AC-TID LUIZA Administration Cefazolin Sodium 2 gm/ Sodium 50 mls @ 100 mls/hr 12/17/20 04:00 12/17/20 04:04 Chloride IVPB 100 mls/hr Q8H LUIZA Administration Vancomycin HCl 1,500 mg/ 250 mls @ 125 mls/hr 12/17/20 10:00 Sodium Chloride IVPB Q16H LUIZA Insulin Aspart 0 unit 12/16/20 21:00 12/17/20 11:15 Insulin Aspart (Novolog) 100 Unit/Ml Vial SQ 6 unit ACHS LUIZA Administration Protocol Insulin Detemir 56 unit 12/17/20 21:00 Insulin Detemir (Levemir) 100 Unit/Ml Syr SQ HS [facility] Midodrine 2.5 mg 12/17/20 07:30 12/17/20 11:14 Midodrine 5 Mg Tab PO 2.5 mg AC-TID LUIZA Administration Nitroglycerin 0.4 mg 12/16/20 19:00 Nitroglycerin Sl Tabs 0.4 Mg Tab SUBLINGUAL Q5M PRN Chest Pain Ondansetron HCl 4 mg 12/16/20 19:00 Ondansetron 4 Mg Tab PO TID PRN Nausea Pantoprazole Sodium 40 mg 12/17/20 07:30 12/17/20 11:14 Pantoprazole 40 Mg Tablet PO 40 mg AC-BRKFST LUIZA Administration Trazodone HCl 100 mg 12/16/20 21:00 12/16/20 21:48 Trazodone Hcl 100 Mg Tab PO 100 mg HS [facility] Administration Intake and Output 12/16/20 12/17/20 12/17/20 22:59 06:59 14:59 Other: Voiding Method Toilet Toilet # Voids 1 2 Weight 79.832 kg 12/16/20 15:21 12/17/20 10:53
[2020-12-17 12:16] LABS: Glucose,Whole Blood 462 mg/dL (75-99)
[2020-12-17] MEDS: VANCOMYCIN 1,500 MG in SODIUM CHLORIDE 0.9% 250 ML IVPB SCH (12:36)
[2020-12-17 16:53] LABS: Glucose,Whole Blood 477 mg/dL (75-99)
--- NOTE | 2020-12-17 16:59 | CONS ---
CONSULTATION DATE OF SERVICE: 12/17/2020 REASON FOR CONSULTATION: Lower extremity wound and cellulitis. HISTORY OF PRESENT ILLNESS: The patient is a 50-year-old male with a past medical history significant for recurrent lower extremity MRSA and abscess and a previous episode of MRSA bacteremia. The patient presented to the ER for evaluation of generalized not feeling well. The patient mentioned he did have a fever over the weekend and still had some chest pain the day of presentation to the hospital, described to more of a dull aching, but persistent. No factor and no radiation. Denies any shortness of breath. The patient mentioned he did have some nausea, vomiting and diarrhea. The patient also was noted to have multiple lesions on his right lower extremity, one on the right upper thigh that seemed to be getting worse over the last few days. The patient did have occasional dull aching pain, about 2/10, with no radiation. The wound on the right leg has been draining some purulent drainage. The patient on presentation to the hospital did have a fever of 101 degrees Fahrenheit. The patient is currently 99% to 100% on room air. Patient did have a normal white count with a left shift as well as lymphopenia. Creatinine was mildly elevated. Liver enzymes are normal. CRP and procalcitonin were not done. Gregory PCR was negative. Urine was negative. The patient did have a chest x-ray showing mild cardiomegaly without acute pulmonary process. The patient was admitted to the hospital. He was started on Unasyn and vancomycin. Infectious Disease was consulted for further management. REVIEW OF SYSTEMS: Positive points have been mentioned in the HPI. Rest of the systems are negative. PAST MEDICAL HISTORY: Heart failure, diabetes mellitus, hypertension, hyperlipidemia, history of MRSA in a soft tissue infection and bacteremia. PAST SURGICAL HISTORY: Cholecystectomy, I and D of the abscesses. SOCIAL HISTORY: Current everyday smoker. Occasional drinking. No drug use. FAMILY HISTORY: Mother with history of diabetes mellitus. ALLERGIES: NO KNOWN DRUG ALLERGIES. MEDICATIONS: The patient is currently on Tylenol, Ventolin, Norvasc, Lipitor, Symbicort, Cymbalta, Lasix, Neurontin, hydralazine, NovoLog, Levemir, Nitrostat, Zofran, Protonix, vancomycin and cefazolin. PHYSICAL EXAMINATION: Blood pressure 154/80 with a pulse of 81, temperature 97.8. He is 99% on room air. General description is a middle-aged male up in the bed in no distress. HEENT: Examination shows slight pallor. No scleral icterus. Oral mucous membrane is dry. NECK: Trachea is central. No thyromegaly. LUNGS: Unlabored breathing. Clear to auscultation. No wheeze or crackle. HEART: S1, S2. Regular rate and rhythm. ABDOMEN: Soft. No tenderness. No guarding or rigidity. EXTREMITIES: No edema of the feet. Patient did have multiple wounds on his right lower extremity. The wound on the right leg is draining some purulent material which has been cultured. There is some surrounding redness. Not foul-smelling, though. Neurologically the patient is awake, alert, oriented x3. Mood and affect normal. LABS: Hemoglobin is 10, white count 10.6, BUN of 44, creatinine 1.77. normal. Urine is negative. Chest x-ray negative for pneumonia. DIAGNOSTIC IMPRESSION AND PLAN: Patient admitted to hospital with generalized not feeling well. Did have a fever, possibly related to right lower extremity multiple skin lesions with secondary cellulitis in this patient with a history of MRSA infection. Need to cover for that pathogen. PLAN: 1. Vancomycin, Pharmacy to dose. Target of 15 while watching his kidney function closely. 2. Discontinue cefazolin. 3. Local culture has been further antibiotic therapy. 4. Will follow clinical condition and culture to further adjust medication if needed. Thank you for this consultation. Will follow this patient along with you. MMODL / IJN: [id number] /
[2020-12-17 20:21] LABS: Glucose,Whole Blood 411 mg/dL (75-99)
[2020-12-17] MEDS: traZODone HCL 100 MG TAB PO SCH (20:33)
[2020-12-17] MEDS: INSULIN DETEMIR (LEVEMIR) 100 UNIT/ML SYR SQ SCH (20:33)
--- NOTE | 2020-12-17 21:22 | P.HPIM ---
History of Present Illness H&P Date: 12/17/20 Chief Complaint: Leg wounds History of presenting complaint This is a very pleasant 50-year-old patient was chronic stable medical conditions include diabetes mellitus type 2, peripheral neuropathy, hyperlipidemia and a prior history of MRSA abscess and cellulitis.. Patient has chronic leg wounds which is followed up with Dr. Milligan for some time. Did used to follow with him at the wound care center. Of recently's note is that the wounds of become worse. This scattered on the legs. Couple of been draining. For a week. Has had some fever and chills. Has decided to come in. Painful Review of systems: GEN.: Fever and chills EYES: None HEENT: None NECK: None RESPIRATORY: As above CARDIOVASCULAR: Edema GASTROINTESTINAL: As above GENITOURINARY: None MUSCULOSKELETAL: As above LYMPHATICS: None HEMATOLOGICAL: None DERMATOLOGICAL: Leg wounds PSYCHIATRY: None NEUROLOGICAL: No focal Past medical history to include: Diabetes, hyperlipidemia, peripheral neuropathy, MRSA infection including abscess and cellulitis,, anxiety, Social history: Patient lives with his 2 children. Previously did [employer]. Smoking 2 packs a day for 32 , claiming stop 2 weeks ago. Alcohol occasionally. Physical examination: VITAL SIGNS: 101.1, 88, 20, 174 with 82, 98% room air GENERAL: BMI 27.6, sitting up in the bed, awake EYES: Pupils equal. Conjunctiva normal. HEENT: External appearance of nose and ears normal, oral cavity grossly normal. NECK: JVD not raised; masses not palpable. HEART: First and second heart sounds are normal; edema present LUNGS: Respiratory rate increased, decreased breath sounds. ABDOMEN: Soft, nontender, liver spleen not palpable, no masses palpable. PSYCH: Alert and oriented x3; mood and affect normal. DERMATOLOGICAL: On the lower extremity patient has wounds of different ages pretty much localized. With some scarring. Some rather active with active inflammation and tenderness. More detail in nursing notes. NEUROLOGICAL: Cranial nerves grossly intact; no facial asymmetry, power and sensation grossly intact. LYMPHATICS: No lymph nodes palpable in the axilla and neck INVESTIGATIONS, reviewed in the clinical context: WBC 10.6 hemoglobin 10 platelets 259 sodium 125 potassium 5 bun 44 creatinine 1.77 glucose 623 LDL 62 Serum acetone negative Coronavirus [PCR]-not detected EKG tracing personally reviewed by me- Chest x-ray film personally reviewed by me-clear Previous testing: BUN 33 creatinine 1.74 on 10/13/2020 Assessment and plan: -Acute on chronic lower extremity wounds of different ages some being active. Patient has previous MRSA infection. This time presenting with a sepsis picture. Started IV vancomycin. 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 Follow Accu-Cheks. Resume long-acting insulin. Add 8 units of Humalog with each meal. 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 Consult ID. Wound culture. Given the complexity and severity of patient's condition expect the patient to be in the hospital at least for 2 overnights Past Medical History Past Medical History: Heart Failure, Diabetes Mellitus, Hyperlipidemia, Hypertension Additional Past Medical History / Comment(s): IDDM type II, neuropathy bilateral feet, gout, bilateral eye catarct removal . History of Any Multi-Drug Resistant Organisms: MRSA Date of last positivie culture/infection: 10/04/20 MDRO Source:: Right Knee Past Surgical History: Cholecystectomy Additional Past Surgical History / Comment(s): I&D scrotal abscess, I&D back abscess Past Anesthesia/Blood Transfusion Reactions: No Reported Reaction Past Psychological History: Anxiety Additional Psychological History / Comment(s): He is independent. He works in [employer]. Smoking Status: Former smoker Past Alcohol Use History: Occasional Additional Past Alcohol Use History / Comment(s): Pt started smoking in 1987 and quit 2 weeks ago. Past Drug Use History: None Reported - Past Family History Mother Family Medical History: Diabetes Mellitus Father History Unknown: Yes Medications and Allergies Home Medications Medication Instructions Recorded Confirmed Type Omeprazole [PriLOSEC] 40 mg PO LUPILLO-BRKFST #14 capsule. 11/04/19 12/16/20 Rx Gabapentin 800 mg PO TID 03/31/20 12/16/20 History DULoxetine HCL [Cymbalta] 60 mg PO DAILY 04/01/20 12/16/20 History Acetaminophen Tab [Tylenol] 650 mg PO Q4H PRN 07/25/20 12/16/20 History Albuterol Sulfate [Proair Hfa] 2 puff INHALATION RT-Q6H PRN 07/25/20 12/16/20 History Insulin Glargine,Hum.rec.anlog 56 unit SQ HS 10/03/20 12/16/20 History [Basaglar Kwikpen U-100] Semaglutide [Ozempic] 1 mg SQ TH 10/03/20 12/16/20 History Atorvastatin [Lipitor] 40 mg PO DAILY #30 tab 10/13/20 12/16/20 Rx traZODone HCL [Desyrel] 100 mg PO HS #30 tab 10/13/20 12/16/20 Rx Fluticasone/Salmeterol [Advair 1 puff INHALATION RT-BID 12/16/20 12/16/20 History 250-50 Diskus] Furosemide [Lasix] 20 mg PO DAILY PRN 12/16/20 12/16/20 History Midodrine HCl [ProAmantine] 2.5 mg PO AC-TID 12/16/20 12/16/20 History Nitroglycerin Sl Tabs [Nitrostat] 0.4 mg SL Q5M PRN 12/16/20 12/16/20 History Ondansetron [Zofran] 4 mg PO TID PRN 12/16/20 12/16/20 History Sulfamethox-Tmp 800-160Mg [Bactrim 1 tab PO BID 12/16/20 12/16/20 History DS 800-160 mg] amLODIPine [Norvasc] 5 mg PO DAILY 12/16/20 12/16/20 History hydrALAZINE HCL [Apresoline] 50 mg PO AC-TID 12/16/20 12/16/20 History Allergies Allergy/AdvReac Type Severity Reaction Status Date / Time No Known Allergies Allergy Verified 12/16/20 18:05 Physical Exam Vitals: Vital Signs Temp Pulse Pulse Resp BP BP Pulse Ox 12/17/20 08:06 99 12/17/20 07:52 97.8 F 81 16 164/80 99 12/17/20 02:19 97.7 F 77 18 102/61 100 12/17/20 01:09 20 12/16/20 20:52 101.1 F H 88 20 174/82 98 12/16/20 19:57 99.2 F 98 18 198/99 97 12/16/20 18:38 100 18 142/76 98 12/16/20 15:50 90 18 200/96 98 12/16/20 15:03 97.8 F 93 20 190/87 100 Intake and Output 12/16/20 12/17/20 12/17/20 22:59 06:59 14:59 Other: Voiding Method Toilet Toilet # Voids 1 2 Weight 79.832 kg Results CBC & Chem 7: 12/16/20 15:21 12/17/20 10:53 Labs: Abnormal Lab Results - Last 24 Hours (Table) 12/16/20 12/16/20 12/16/20 Range/Units 15: 15: 15:21 RBC 3.34 L (4.30-5.90) m/uL Hgb 10.0 L (13.0-17.5) gm/dL Hct 29.3 L (39.0-53.0) % Neutrophils # 8.8 H (1.3-7.7) k/uL Lymphocytes # 0.8 L (1.0-4.8) k/uL Sodium 125 L (137-145) mmol/L Chloride 90 L (98-107) mmol/L BUN 44 H (9-20) mg/dL Creatinine 1.77 H (0.66-1.25) mg/dL Glucose 623 H* (74-99) mg/dL POC Glucose (mg/dL) >600 H (75-99) mg/dL Alkaline Phosphatase 160 H (38-126) U/L Albumin 3.4 L (3.5-5.0) g/dL Triglycerides (0.0-149.0) mg/dL VLDL Cholesterol, Calc (5.00-40.00) mg/dL Urine Protein (Negative) Urine Glucose (UA) (Negative) Urine Blood (Negative) Urine RBC (0-5) /hpf Urine Bacteria (None) /hpf 12/16/20 12/16/20 12/16/20 Range/Units 15:21 15:46 17:58 RBC (4.30-5.90) m/uL Hgb (13.0-17.5) gm/dL Hct (39.0-53.0) % Neutrophils # (1.3-7.7) k/uL Lymphocytes # (1.0-4.8) k/uL Sodium (137-145) mmol/L Chloride (98-107) mmol/L BUN (9-20) mg/dL Creatinine (0.66-1.25) mg/dL Glucose (74-99) mg/dL POC Glucose (mg/dL) 399 H (75-99) mg/dL Alkaline Phosphatase (38-126) U/L Albumin (3.5-5.0) g/dL Triglycerides 231.0 H (0.0-149.0) mg/dL VLDL Cholesterol, Calc 46.20 H (5.00-40.00) mg/dL Urine Protein 2+ H (Negative) Urine Glucose (UA) 4+ H (Negative) Urine Blood Small H (Negative) Urine RBC 9 H (0-5) /hpf Urine Bacteria Rare H (None) /hpf 12/16/20 12/17/20 Range/Units 21:00 07:09 RBC (4.30-5.90) m/uL Hgb (13.0-17.5) gm/dL Hct (39.0-53.0) % Neutrophils # (1.3-7.7) k/uL Lymphocytes # (1.0-4.8) k/uL Sodium (137-145) mmol/L Chloride (98-107) mmol/L BUN (9-20) mg/dL Creatinine (0.66-1.25) mg/dL Glucose (74-99) mg/dL POC Glucose (mg/dL) 367 H 363 H (75-99) mg/dL Alkaline Phosphatase (38-126) U/L Albumin (3.5-5.0) g/dL Triglycerides (0.0-149.0) mg/dL VLDL Cholesterol, Calc (5.00-40.00) mg/dL Urine Protein (Negative) Urine Glucose (UA) (Negative) Urine Blood (Negative) Urine RBC (0-5) /hpf Urine Bacteria (None) /hpf Thrombosis Risk Factor Assmnt - Choose All That Apply Any of the Below Risk Factors Present?: Yes Each Factor Represents 1 point: Age 41-60 years, Obesity (BMI >25) Other Risk Factors: No Other congenital or acquired thrombophilia - If yes, enter type in comment: No Thrombosis Risk Factor Assessment Total Risk Factor Score: 2 Thrombosis Risk Factor Assessment Level: Low Risk
[2020-12-17] MEDS: ENOXAPARIN 40 MG/0.4 ML SYRINGE SQ SCH (23:05)
[2020-12-17] MEDS: SODIUM CHLORIDE 0.9% 1,000 ML IV SCH (23:06)
[2020-12-18] MEDS: VANCOMYCIN 1,500 MG in SODIUM CHLORIDE 0.9% 250 ML IVPB SCH ×2 (01:26→21:07)
[2020-12-18 06:00] LABS: African American GFR (CKD) 25 (>60 ml/min/1.73 sqM); Anion Gap 4 mmol/L; Blood Urea Nitrogen 50 mg/dL (9-20); Carbon Dioxide 29 mmol/L (22-30); Chloride 99 mmol/L (98-107); Glucose 169 mg/dL (74-99); Non-African American GFR(CKD) 22 (>60 ml/min/1.73 sqM); Potassium 4.3 mmol/L (3.5-5.1); Sodium 132 mmol/L (137-145)
[2020-12-18 07:59] LABS: Glucose,Whole Blood 193 mg/dL (75-99)
[2020-12-18] MEDS: SYMBICORT 80-4.5 MCG INHALER INHALATION SCH ×2 (09:29→20:01)
[2020-12-18] MEDS: MIDODRINE 5 MG TAB PO SCH ×3 (09:38→16:37)
[2020-12-18] MEDS: amLODIPine 5 MG TAB PO SCH (09:38)
[2020-12-18] MEDS: DULoxetine HCL 60 MG CAPSULE.DR PO SCH (09:38)
[2020-12-18] MEDS: GABAPENTIN 400 MG CAP PO SCH ×3 (09:38→20:57)
[2020-12-18] MEDS: ATORVASTATIN 40 MG TAB PO SCH (09:38)
[2020-12-18] MEDS: PANTOPRAZOLE 40 MG TABLET PO SCH (09:38)
[2020-12-18] MEDS: hydrALAZINE HCL 50 MG TAB PO SCH ×3 (09:38→16:37)
[2020-12-18] MEDS: ENOXAPARIN 40 MG/0.4 ML SYRINGE SQ SCH (09:39)
[2020-12-18] MEDS: SODIUM CHLORIDE 0.9% 1,000 ML IV SCH ×2 (09:39→19:35)
[2020-12-18] MEDS: INSULIN ASPART (NovoLOG) 100 UNIT/ML VIAL SQ SCH ×7 (09:40→20:58)
[2020-12-18 12:00] LABS: Glucose,Whole Blood 183 mg/dL (75-99)
[2020-12-18 17:43] LABS: Glucose,Whole Blood 303 mg/dL (75-99)
[2020-12-18 20:08] LABS: Glucose,Whole Blood 381 mg/dL (75-99)
[2020-12-18] MEDS: traZODone HCL 100 MG TAB PO SCH (20:58)
[2020-12-18] MEDS: INSULIN DETEMIR (LEVEMIR) 100 UNIT/ML SYR SQ SCH (20:59)
--- NOTE | 2020-12-18 21:52 | PN ---
PROGRESS NOTE DATE OF SERVICE: 12/18/2020 REASON FOR FOLLOWUP: Right lower extremity multiple skin ulcers and cellulitis, MRSA. INTERVAL HISTORY: The patient is afebrile. She is currently breathing comfortably. Denies having any chest pain or shortness of breath or cough. Some nausea but no vomiting. Some minimal lower abdominal pain. Did have one lesion on his right mid thigh that seems to be more painful for him. PHYSICAL EXAMINATION: Blood pressure 162/80 with a pulse of 83, temperature 98. He is 99% on room air. General description is a middle-aged male up in the room in no distress. RESPIRATORY SYSTEM: Unlabored breathing. Clear to auscultation anteriorly. HEART: S1, S2. Regular rate and rhythm. ABDOMEN: Soft. No tenderness. Right leg with multiple lesions. One on the thigh has more fluctuance. DIAGNOSTIC IMPRESSION AND PLAN: Patient with multiple skin lesions, cellulitis and possible abscess. May benefit from surgical drainage of the right thigh one. In view of the worsening of his kidney function, will discontinue the vancomycin, add daptomycin 4 mg/kg, and continue supportive care. MMODL / IJN: [id number] /
[2020-12-18] MEDS ORDERED: INSULIN DETEMIR (LEVEMIR) 100 UNIT/ML SYR SQ SCH (23:58)
--- NOTE | 2020-12-19 | P.PN ---
Progress Note - Text Progress Note Date: 12/18/20 Chief Complaint: Leg wounds History of presenting complaint This is a very pleasant 50-year-old patient was chronic stable medical conditions include diabetes mellitus type 2, peripheral neuropathy, hyperlipidemia and a prior history of MRSA abscess and cellulitis.. Patient has chronic leg wounds which is followed up with Dr. Milligan for some time. Did used to follow with him at the wound care center. Of recently's note is that the wounds of become worse. This scattered on the legs. Couple of been draining. For a week. Has had some fever and chills. Has decided to come in. Painful Today: Eating well. On IV daptomycin. Oral intake fair. Review of systems: Was done for constitutional, cardiovascular, GI, pulmonary. relevant finding as above Active Medications Acetaminophen (Acetaminophen Tab 325 Mg Tab) 650 mg PO Q4H PRN PRN Reason: Mild Pain or Fever > 100.5 Last Admin: 12/16/20 21:47 Dose: 650 mg Documented by: Albuterol Sulfate (Albuterol Nebulized 2.5 Mg/3 Ml) 2.5 mg INHALATION RT-Q6H PRN PRN Reason: Shortness Of Breath Amlodipine Besylate (Amlodipine 5 Mg Tab) 5 mg PO DAILY [facility] Last Admin: 12/18/20 09:38 Dose: 5 mg Documented by: Budesonide/Formoterol Fumarate (Symbicort 80-4.5 Mcg Inhaler) 2 puff INHALATION RT-BID [facility] Last Admin: 12/18/20 20:01 Dose: 2 puff Documented by: Duloxetine HCl (Duloxetine Hcl 60 Mg Lisette.) 60 mg PO DAILY [facility] Last Admin: 12/18/20 09:38 Dose: 60 mg Documented by: Enoxaparin Sodium (Enoxaparin 30 Mg/0.3 Ml Syringe) 30 mg SQ DAILY [facility] Furosemide (Furosemide 20 Mg Tab) 20 mg PO DAILY PRN PRN Reason: Edema Gabapentin (Gabapentin 400 Mg Cap) 800 mg PO TID [facility] Last Admin: 12/18/20 20:57 Dose: 800 mg Documented by: Hydralazine HCl (Hydralazine Hcl 50 Mg Tab) 50 mg PO AC-TID [facility] Last Admin: 12/18/20 16:37 Dose: 50 mg Documented by: Sodium Chloride (Saline 0.9%) 1,000 mls @ 100 mls/hr IV .Q10H [facility] Last Admin: 12/18/20 19:35 Dose: 100 mls/hr Documented by: Daptomycin 300 mg/ Sodium (Chloride) 50 mls @ 100 mls/hr IVPB Q24HR [facility]; Protoc ol Insulin Aspart (Insulin Aspart (Novolog) 100 Unit/Ml Vial) 0 unit SQ [facility]; Protocol Last Admin: 12/18/20 20:58 Dose: 7 unit Documented by: Insulin Aspart (Insulin Aspart (Novolog) 100 Unit/Ml Vial) 8 unit SQ AC-TID [facility] Last Admin: 12/18/20 18:10 Dose: 8 unit Documented by: Insulin Detemir (Insulin Detemir (Levemir) 100 Unit/Ml Syr) 56 unit SQ [facility] Last Admin: 12/18/20 20:59 Dose: 56 unit Documented by: Midodrine (Midodrine 5 Mg Tab) 2.5 mg PO AC-TID [facility] Last Admin: 12/18/20 16:37 Dose: 2.5 mg Documented by: Nitroglycerin (Nitroglycerin Sl Tabs 0.4 Mg Tab) 0.4 mg SUBLINGUAL Q5M PRN PRN Reason: Chest Pain Ondansetron HCl (Ondansetron 4 Mg Tab) 4 mg PO TID PRN PRN Reason: Nausea Pantoprazole Sodium (Pantoprazole 40 Mg Tablet) 40 mg PO AC-BRKT [facility] Last Admin: 12/18/20 09:38 Dose: 40 mg Documented by: Trazodone HCl (Trazodone Hcl 100 Mg Tab) 100 mg PO [facility] Last Admin: 12/18/20 20:58 Dose: 100 mg Documented by: Past medical history to include: Diabetes, hyperlipidemia, peripheral neuropathy, MRSA infection including abscess and cellulitis,, anxiety, Social history: Patient lives with his 2 children. Previously did [employer]. Smoking 2 packs a day for 32 , claiming stop 2 weeks ago. Alcohol occasionally. Physical examination: VITAL SIGNS: 98.4, 91, 18, 120/64, 99% on room air GENERAL: BMI 27.6, sitting up in the bed, awake EYES: Pupils equal. Conjunctiva normal. HEENT: External appearance of nose and ears normal, oral cavity grossly normal. NECK: JVD not raised; masses not palpable. HEART: First and second heart sounds are normal; edema present LUNGS: Respiratory rate increased, decreased breath sounds. ABDOMEN: Soft, nontender, liver spleen not palpable, no masses palpable. PSYCH: Alert and oriented x3; mood and affect normal. DERMATOLOGICAL: On the lower extremity patient has wounds of different ages pretty much localized. With some scarring. Some rather active with active inflammation and tenderness. More detail in nursing notes. INVESTIGATIONS, reviewed in the clinical context: December 18: Potassium 4.3 creatinine 3.17 sodium 132 WBC 10.6 hemoglobin 10 platelets 259 sodium 125 potassium 5 bun 44 creatinine 1.77 glucose 623 LDL 62 Serum acetone negative Coronavirus [PCR]-not detected EKG tracing personally reviewed by me- Chest x-ray film personally reviewed by me-clear Previous testing: BUN 33 creatinine 1.74 on 10/13/2020 Assessment and plan: -Acute on chronic lower extremity wounds of different ages some being active. Patient has previous MRSA infection. This time presenting with a sepsis picture. Started IV vancomycin.-Changed over to daptomycin -Chronic congestive heart failure from diastolic dysfunction EF 50-55% Follow hemodynamic state/fluids state -Secondary pulmonary hypertension due to CHF Follow clinically -Diabetes mellitus type 2 chronically on insulin uncontrolled with nonketotic hyperglycemia IV fluids. Follow Accu-Cheks. Resume long-acting insulin. 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 Continue IV daptomycin. Increase to 10 units of Humalog with each by mouth
[2020-12-19 00:55] LABS: Glucose,Whole Blood 288 mg/dL (75-99)
[2020-12-19] MEDS: SODIUM CHLORIDE 0.9% 1,000 ML IV SCH ×2 (04:42→15:44)
[2020-12-19 06:52] LABS: Glucose,Whole Blood 237 mg/dL (75-99)
[2020-12-19] MEDS: SYMBICORT 80-4.5 MCG INHALER INHALATION SCH ×2 (08:05→19:37)
[2020-12-19] MEDS: amLODIPine 5 MG TAB PO SCH (08:49)
[2020-12-19] MEDS: hydrALAZINE HCL 50 MG TAB PO SCH ×3 (08:49→18:12)
[2020-12-19] MEDS: MIDODRINE 5 MG TAB PO SCH ×4 (08:50→20:43)
[2020-12-19] MEDS: PANTOPRAZOLE 40 MG TABLET PO SCH (08:50)
[2020-12-19] MEDS: GABAPENTIN 400 MG CAP PO SCH ×3 (08:50→20:43)
[2020-12-19] MEDS: DULoxetine HCL 60 MG CAPSULE.DR PO SCH (08:50)
[2020-12-19] MEDS: ENOXAPARIN 30 MG/0.3 ML SYRINGE SQ SCH (08:51)
[2020-12-19] MEDS: INSULIN ASPART (NovoLOG) 100 UNIT/ML VIAL SQ SCH ×7 (08:51→20:44)
[2020-12-19] MEDS ORDERED: VANCOMYCIN TROUGH DUE 1 EACH MISC MISCELLANE ONE (09:00)
[2020-12-19 11:44] LABS: Glucose,Whole Blood 146 mg/dL (75-99)
[2020-12-19 17:01] LABS: Glucose,Whole Blood 150 mg/dL (75-99)
--- NOTE | 2020-12-19 19:05 | PN ---
PROGRESS NOTE DATE OF SERVICE: 12/19/2020 REASON FOR FOLLOWUP: Right lower extremity multiple wounds with secondary MRSA infection. INTERVAL HISTORY: The patient is currently afebrile. Patient is feeling better. Breathing comfortably. No chest pain or cough. No abdominal pain or any worsening pain in the right lower extremity. Multiple wounds area especially the upper thigh wound has become less painful. PHYSICAL EXAMINATION: Blood pressure 158/79, pulse of 89, temperature is 97.7. He is 97% on room air. General description: The patient is a middle-aged male up in the room in no distress. Respiratory system: Unlabored breathing, clear to auscultation anteriorly. Heart S1, S2. Regular rate and rhythm. Abdomen soft, no tenderness. LABS: Creatinine is 2.43. Local culture with MRSA and Streptococcus pyogenes. DIAGNOSTIC IMPRESSION AND PLAN: Patient with right lower extremity multiple abscesses and cellulitis and ulceration. Culture with strep and MRSA. Patient to continue with daptomycin because of his problem with the vancomycin and elevated creatinine and monitor clinical course closely. MMODL / IJN: [id number] /
--- NOTE | 2020-12-19 19:21 | CONS ---
CONSULTATION REASON FOR CONSULT: Renal failure. HISTORY OF PRESENT ILLNESS: The patient is a 50-year-old male who was admitted to the hospital on December 16 with complaints of lower extremity wounds, which were showing worsening with increased drainage. He also had fever prior to admission. Patient has underlying CKD and follows with us as outpatient. His creatinine was 1.7 on initial admission. It did increase to 3.1 and today it is down to 2.43. Prior creatinine documented at about 1.[address] back to October of 2020 and July of 2020. Currently patient has been voiding. His blood pressure has been around 115-120 mmHg with a few low readings noted at 94 systolic on 12/17/2020. Currently patient is maintained on IV fluids. His UA shows 2+ protein and small blood. PCR for walsh virus is negative. PAST MEDICAL HISTORY: CKD NKF stage IIIB, with baseline creatinine about 1.7 and GFR of about 40-46 mL/minutes. Past medical history also significant for peripheral vascular disease, type 2 diabetes, hyperlipidemia, history of CHF, history of neuropathy, gout, cataract. PAST SURGICAL HISTORY: Cholecystectomy, cataract surgery, I and D of back abscess, scrotal abscess. SOCIAL HISTORY: Patient is a former smoker. No history of drug abuse or alcohol abuse. MEDICATIONS: Medications prior to admission included: Prilosec, Cymbalta, gabapentin, Tylenol, Ozempic, Lipitor, Desyrel, midodrine, Lasix, Zofran, Nitrostat, Norvasc, hydralazine, Bactrim. ALLERGIES: NONE. REVIEW OF SYSTEMS: As per HPI. Other systems negative. EXAMINATION: Currently comfortable, awake. He is alert, oriented x3, not in any acute distress. Blood pressure was 124/65, heart rate 81 per minute, he is afebrile. Examination shows no significant edema lower extremities. Patient has ulcers on his right leg in the thigh area and on the lower leg lateral aspect. These are not draining significantly at this point. He is euvolemic with no evidence of edema lower extremities. OPTICAL WORKER exam grossly intact. LAB: Show sodium 132 from yesterday 12/18/2020, potassium 4.3, BUN 50, creatinine 3.17, calcium 8.0. ASSESSMENT: 1. Acute kidney injury possibly prerenal currently improving with IV hydration. The patient's blood pressure was also low on 12/17/2020 which most likely added to a component of acute tubular necrosis. UA shows evidence of proteinuria. 2. Chronic kidney disease, NKF stage III, with baseline creatinine about 1.7. Etiology is diabetic kidney disease. 3. History of neuropathy. 4. Lower extremity ulcers, maintained on antibiotics in the form of daptomycin. The patient was on vancomycin. I do not see a vancomycin level recently. PLAN: Continue with IV fluids. Check ultrasound of the kidneys. The patient will follow up as outpatient for CKD. Avoid hypotension. DC Norvasc and we can add parameters to the hydralazine. I will change the midodrine to p.r.n. as blood pressure has not been low anymore. A few readings have been on the higher side. Thank you for this consultation. We will continue to follow the patient with you during his hospitalization. ADAM / JAN: [id number] /
[2020-12-19 20:14] LABS: Glucose,Whole Blood 222 mg/dL (75-99)
[2020-12-19] MEDS: traZODone HCL 100 MG TAB PO SCH (20:44)
[2020-12-19] MEDS: INSULIN DETEMIR (LEVEMIR) 100 UNIT/ML SYR SQ SCH (20:44)
--- NOTE | 2020-12-19 23:29 | P.PN ---
Progress Note - Text Progress Note Date: 12/19/20 Chief Complaint: Leg wounds History of presenting complaint This is a very pleasant 50-year-old patient was chronic stable medical conditions include diabetes mellitus type 2, peripheral neuropathy, hyperlipidemia and a prior history of MRSA abscess and cellulitis.. Patient has chronic leg wounds which is followed up with Dr. Milligan for some time. Did used to follow with him at the wound care center. Of recently's note is that the wounds of become worse. This scattered on the legs. Couple of been draining. For a week. Has had some fever and chills. Has decided to come in. Painful Admitted with multiple superficial ulcer/abscess of lower extremity. Started on IV vancomycin. Swished total IV daptomycin. Acute kidney injury. IV fluids. Today: Getting IV daptomycin. Skin lesions of the lower extremity improving. Oral intake fair. Review of systems: Was done for constitutional, cardiovascular, GI, pulmonary. relevant finding as above Active Medications Acetaminophen (Acetaminophen Tab 325 Mg Tab) 650 mg PO Q4H PRN PRN Reason: Mild Pain or Fever > 100.5 Last Admin: 12/16/20 21:47 Dose: 650 mg Documented by: Albuterol Sulfate (Albuterol Nebulized 2.5 Mg/3 Ml) 2.5 mg INHALATION RT-Q6H PRN PRN Reason: Shortness Of Breath Amlodipine Besylate (Amlodipine 5 Mg Tab) 5 mg PO DAILY [facility] Last Admin: 12/19/20 08:49 Dose: 5 mg Documented by: Budesonide/Formoterol Fumarate (Symbicort 80-4.5 Mcg Inhaler) 2 puff INHALATION RT-BID [facility] Last Admin: 12/19/20 19:37 Dose: 2 puff Documented by: Duloxetine HCl (Duloxetine Hcl 60 Mg Capsule.) 60 mg PO DAILY [facility] Last Admin: 12/19/20 08:50 Dose: 60 mg Documented by: Enoxaparin Sodium (Enoxaparin 30 Mg/0.3 Ml Syringe) 30 mg SQ DAILY [facility] Last Admin: 12/19/20 08:51 Dose: 30 mg Documented by: Gabapentin (Gabapentin 400 Mg Cap) 400 mg PO TID [facility] Last Admin: 12/19/20 20:43 Dose: 400 mg Documented by: Hydralazine HCl (Hydralazine Hcl 50 Mg Tab) 50 mg PO AC-TID [facility] Last Admin: 12/19/20 18:12 Dose: 50 mg Documented by: Sodium Chloride (Saline 0.9%) 1,000 mls @ 100 mls/hr IV .Q10H [facility] Last Admin: 12/19/20 15:44 Dose: 100 mls/hr Documented by: Daptomycin 300 mg/ Sodium (Chloride) 50 mls @ 100 mls/hr IVPB Q24HR [facility]; Protocol Last Admin: 12/19/20 09:04 Dose: 100 mls/hr Documented by: Insulin Aspart (Insulin Aspart (Novolog) 100 Unit/Ml Vial) 0 unit SQ ACHS [facility]; Protocol Last Admin: 12/19/20 20:44 Dose: 3 unit Documented by: Insulin Aspart (Insulin Aspart (Novolog) 100 Unit/Ml Vial) 10 unit SQ AC-TID [facility] Last Admin: 12/19/20 18:14 Dose: 10 unit Documented by: Insulin Detemir (Insulin Detemir (Levemir) 100 Unit/Ml Syr) 62 unit SQ [facility] Last Admin: 12/19/20 20:44 Dose: 62 unit Documented by: Midodrine (Midodrine 5 Mg Tab) 2.5 mg PO AC-TID [facility] Last Admin: 12/19/20 20:43 Dose: 2.5 mg Documented by: Nitroglycerin (Nitroglycerin Sl Tabs 0.4 Mg Tab) 0.4 mg SUBLINGUAL Q5M PRN PRN Reason: Chest Pain Ondansetron HCl (Ondansetron 4 Mg Tab) 4 mg PO TID PRN PRN Reason: Nausea Pantoprazole Sodium (Pantoprazole 40 Mg Tablet) 40 mg PO AC-BRKFST [facility] Last Admin: 12/19/20 08:50 Dose: 40 mg Documented by: Trazodone HCl (Trazodone Hcl 100 Mg Tab) 100 mg PO [facility] Last Admin: 12/19/20 20:44 Dose: 100 mg Documented by: Past medical history to include: Diabetes, hyperlipidemia, peripheral neuropathy, MRSA infection including abscess and cellulitis,, anxiety, Social history: Patient lives with his 2 children. Previously did [employer]. Smoking 2 packs a day for 32 , claiming stop 2 weeks ago. Alcohol occasionally. Physical examination: VITAL SIGNS: 97.7, 89, 14, 150/79, 97% room air GENERAL: BMI 27.6, sitting up in the bed, awake EYES: Pupils equal. Conjunctiva normal. HEENT: External appearance of nose and ears normal, oral cavity grossly normal. NECK: JVD not raised; masses not palpable. HEART: First and second heart sounds are normal; edema present LUNGS: Respiratory rate increased, decreased breath sounds. ABDOMEN: Soft, nontender, liver spleen not palpable, no masses palpable. PSYCH: Alert and oriented x3; mood and affect normal. DERMATOLOGICAL: On the lower extremity patient has wounds of different ages pretty much localized. With some scarring. Some rather active with active inflammation and tenderness. More detail in nursing notes. INVESTIGATIONS, reviewed in the clinical context: December 19: Creatinine 2.43 December 18: Potassium 4.3 creatinine 3.17 sodium 132 WBC 10.6 hemoglobin 10 platelets 259 sodium 125 potassium 5 bun 44 creatinine 1.77 glucose 623 LDL 62 Serum acetone negative Coronavirus [PCR]-not detected Wound culture: MRSA, streptococcus pyogenous group A EKG tracing personally reviewed by me- Chest x-ray film personally reviewed by me-clear Previous testing: BUN 33 creatinine 1.74 on 10/13/2020 Assessment and plan: -Acute on chronic lower extremity wounds of different ages some being active. Patient has previous MRSA infection. This time presenting with a sepsis picture. Wound cultures positive for: MRSA and Streptococcus pyogenes group A Started IV vancomycin.-Changed over to daptomycin -Chronic congestive heart failure from diastolic dysfunction EF 50-55% Follow hemodynamic state/fluids state -Secondary pulmonary hypertension due to CHF Follow clinically -Diabetes mellitus type 2 chronically on insulin uncontrolled with nonketotic hyperglycemia IV fluids. Follow Accu-Cheks. Resume long-acting insulin. Humalog with meals -Diabetic peripheral neuropathy Continue gabapentin -Hyperlipidemia Lipitor -COPD in a current smoker Continue home bronchodilators -Chronic kidney disease stage III likely combination of diabetic nephropathy and hypertensive medicine sclerosis Follow renal function Accu-Cheks are better controlled. Creatinine started to come down. Repeat labs in the morning. Home antibiotics per Dr. Milligan from [facility]
[2020-12-20] MEDS: SODIUM CHLORIDE 0.9% 1,000 ML IV SCH ×3 (00:37→20:27)
[2020-12-20] MEDS: MIDODRINE 5 MG TAB PO SCH ×3 (06:20→17:59)
[2020-12-20 06:22] LABS: African American GFR (CKD) 36 (>60 ml/min/1.73 sqM); Anion Gap 5 mmol/L; Blood Urea Nitrogen 51 mg/dL (9-20); Calcium 7.7 mg/dL (8.4-10.2); Carbon Dioxide 23 mmol/L (22-30); Chloride 103 mmol/L (98-107); Glucose 350 mg/dL (74-99); Non-African American GFR(CKD) 31 (>60 ml/min/1.73 sqM); Sodium 131 mmol/L (137-145)
[2020-12-20 07:47] LABS: Glucose,Whole Blood 345 mg/dL (75-99)
[2020-12-20] MEDS: SYMBICORT 80-4.5 MCG INHALER INHALATION SCH ×2 (09:03→19:12)
[2020-12-20] MEDS: GABAPENTIN 400 MG CAP PO SCH ×3 (09:08→21:06)
[2020-12-20] MEDS: hydrALAZINE HCL 50 MG TAB PO SCH ×3 (09:08→18:00)
[2020-12-20] MEDS: PANTOPRAZOLE 40 MG TABLET PO SCH (09:08)
[2020-12-20] MEDS: DULoxetine HCL 60 MG CAPSULE.DR PO SCH (09:09)
[2020-12-20] MEDS: INSULIN ASPART (NovoLOG) 100 UNIT/ML VIAL SQ SCH ×7 (09:09→21:07)
[2020-12-20] MEDS: ENOXAPARIN 30 MG/0.3 ML SYRINGE SQ SCH (09:09)
[2020-12-20] MEDS: amLODIPine 5 MG TAB PO SCH (09:09)
[2020-12-20 11:17] LABS: Glucose,Whole Blood 197 mg/dL (75-99)
[2020-12-20] MEDS ORDERED: SODIUM POLYSTYRENE SULFONATE 15 GM/60 ML BOTTLE PO STA (11:52)
--- NOTE | 2020-12-20 13:41 | US ---
EXAMINATION TYPE: US kidneys/renal and bladder DATE OF EXAM: 12/20/2020 COMPARISON: CT October 06, 2020 CLINICAL HISTORY: RF. abnormal labs. No pain. EXAM MEASUREMENTS: Right Kidney: 11.1 x 5.3 x 6.1 cm Left Kidney: 11.5 x 5.1 x 6.0 cm Right Kidney: No hydronephrosis or masses seen Left Kidney: trace amount of free fluid seen in adjacent to lower pole Bladder: distended, anechoic Right bladder jet seen There is no evidence for hydronephrosis at this point in time. No nephrolithiasis is seen. No sandy s are identified on images saved. Trace free fluid near lower pole left kidney of uncertain etiology or significance. The urinary bladder is satisfactorily distended. Bilateral ureteral jets are not s een. IMPRESSION: No hydronephrosis is noted bilaterally.
--- NOTE | 2020-12-20 13:57 | PN ---
PROGRESS NOTE Patient is seen for followup for acute kidney injury. His creatinine has improved slightly, but remains elevated, going down to about 2.3 from 2.43 yesterday. Potassium is also high at 6.0 today. The patient states he has been voiding. Blood pressure is not low, it is staying about 130-150 mL mmHg systolic. The patient is maintained on IV fluids. His blood sugar was elevated today. He did get a dose of Kayexalate this morning. PHYSICAL EXAMINATION: Blood pressure 156/75, heart rate 87 per minute, he is afebrile. Examination of the lower extremities shows no evidence of edema. Abscesses on the right leg appear to be slowly improving, they appear more dry today. No edema noted. SOCIAL INSURANCE SPECIALIST exam grossly intact. LAB: Show sodium 131, potassium 6.0, chloride 103, BUN 51, creatinine 2.39. ASSESSMENT: 1. Acute kidney injury, most likely acute tubular necrosis, currently slightly improved. Rule out obstructive uropathy. Check post-void residual and check ultrasound of the kidneys. UA shows evidence of proteinuria and small blood. 2. Hyperkalemia associated with acute kidney injury as well as significant hyperglycemia status post one dose of Kayexalate. Rule out urine retention. 3. Chronic kidney disease with previous creatinine mostly around 1.7 mg/dL, NKF stage 3. Etiology is diabetic nephropathy. 4. Multiple small abscesses right leg, maintained on daptomycin. PLAN: Check ultrasound of the kidneys. Check postvoid residual. Control blood sugars. Maintain low-potassium diet. Continue IV fluids. Repeat labs in a.m. MMODL / IJN: [id number] /
[2020-12-20 17:22] LABS: Glucose,Whole Blood 224 mg/dL (75-99)
--- NOTE | 2020-12-20 18:53 | PN ---
PROGRESS NOTE DATE OF SERVICE: 12/20/2020 REASON FOR FOLLOWUP: Right lower extremity wound cellulitis MRSA. INTERVAL HISTORY: Patient is afebrile. The patient is breathing slightly better, breathing comfortably. No chest pain. No shortness of breath. No cough. No abdominal pain. Overall, lesions on the lower extremities are drying out and less painful. PHYSICAL EXAMINATION: Blood pressure 129/68, pulse 93, temperature 98.1. He is 100% on room air. General description: The patient is a middle-aged male up in the bed in no distress. Respiratory system: Unlabored breathing, clear to auscultation anteriorly. Heart S1, S2. Regular rate and rhythm. ABDOMEN: Soft, no tenderness. Right leg with multiple lesions. Less drainage. DIAGNOSTIC IMPRESSION AND PLAN: Patient with multiple right lower extremity lesions from the MRSA. Unfortunately do not have any good oral option available. Will recommend getting a midline and continuation of daptomycin outpatient setting for 2 weeks with close outpatient followup. All his questions and concerns were answered. MMODL / IJN: [id number] /
[2020-12-20 20:54] LABS: Glucose,Whole Blood 203 mg/dL (75-99)
[2020-12-20] MEDS: traZODone HCL 100 MG TAB PO SCH (21:07)
[2020-12-20] MEDS: INSULIN DETEMIR (LEVEMIR) 100 UNIT/ML SYR SQ SCH (21:07)
--- NOTE | 2020-12-20 23:08 | P.PN ---
Progress Note - Text Progress Note Date: 12/20/20 Chief Complaint: Leg wounds History of presenting complaint This is a very pleasant 50-year-old patient was chronic stable medical conditions include diabetes mellitus type 2, peripheral neuropathy, hyperlipidemia and a prior history of MRSA abscess and cellulitis.. Patient has chronic leg wounds which is followed up with Dr. Milligan for some time. Did used to follow with him at the wound care center. Of recently's note is that the wounds of become worse. This scattered on the legs. Couple of been draining. For a week. Has had some fever and chills. Has decided to come in. Painful Admitted with multiple superficial ulcer/abscess of lower extremity. Started on IV vancomycin. Swished total IV daptomycin. Acute kidney injury. IV fluids. Today: Skin lesions are slowly improving. On IV daptomycin. Oral intake is good. Review of systems: Was done for constitutional, cardiovascular, GI, pulmonary. relevant finding as above Active Medications Acetaminophen (Acetaminophen Tab 325 Mg Tab) 650 mg PO Q4H PRN PRN Reason: Mild Pain or Fever > 100.5 Last Admin: 12/16/20 21:47 Dose: 650 mg Documented by: Albuterol Sulfate (Albuterol Nebulized 2.5 Mg/3 Ml) 2.5 mg INHALATION RT-Q6H PRN PRN Reason: Shortness Of Breath Amlodipine Besylate (Amlodipine 5 Mg Tab) 5 mg PO DAILY [facility] Last Admin: 12/20/20 09:09 Dose: 5 mg Documented by: Budesonide/Formoterol Fumarate (Symbicort 80-4.5 Mcg Inhaler) 2 puff INHALATION RT-BID [facility] Last Admin: 12/20/20 19:12 Dose: 2 puff Documented by: Duloxetine HCl (Duloxetine Hcl 60 Mg Capsule.) 60 mg PO DAILY [facility] Last Admin: 12/20/20 09:09 Dose: 60 mg Documented by: Enoxaparin Sodium (Enoxaparin 30 Mg/0.3 Ml Syringe) 30 mg SQ DAILY [facility] Last Admin: 12/20/20 09:09 Dose: 30 mg Documented by: Gabapentin (Gabapentin 400 Mg Cap) 400 mg PO TID [facility] Last Admin: 12/20/20 21:06 Dose: 400 mg Documented by: Hydralazine HCl (Hydralazine Hcl 50 Mg Tab) 50 mg PO AC-TID [facility] Last Admin: 12/20/20 18:00 Dose: 50 mg Documented by: Sodium Chloride (Saline 0.9%) 1,000 mls @ 100 mls/hr IV .Q10H [facility] Last Admin: 12/20/20 20:27 Dose: Not Given Documented by: Daptomycin 300 mg/ Sodium (Chloride) 50 mls @ 100 mls/hr IVPB Q24HR [facility]; Protocol Last Admin: 12/20/20 09:10 Dose: 100 mls/hr Documented by: Insulin Aspart (Insulin Aspart (Novolog) 100 Unit/Ml Vial) 0 unit SQ ACHS [facility]; Protocol Last Admin: 12/20/20 21:07 Dose: 2 unit Documented by: Insulin Aspart (Insulin Aspart (Novolog) 100 Unit/Ml Vial) 10 unit SQ AC-TID [facility] Last Admin: 12/20/20 18:02 Dose: 10 unit Documented by: Insulin Detemir (Insulin Detemir (Levemir) 100 Unit/Ml Syr) 62 unit SQ [facility] Last Admin: 12/20/20 21:07 Dose: 62 unit Documented by: Midodrine (Midodrine 5 Mg Tab) 2.5 mg PO AC-TID [facility] Last Admin: 12/20/20 17:59 Dose: 2.5 mg Documented by: Nitroglycerin (Nitroglycerin Sl Tabs 0.4 Mg Tab) 0.4 mg SUBLINGUAL Q5M PRN PRN Reason: Chest Pain Ondansetron HCl (Ondansetron 4 Mg Tab) 4 mg PO TID PRN PRN Reason: Nausea Pantoprazole Sodium (Pantoprazole 40 Mg Tablet) 40 mg PO AC-BRKT [facility] Last Admin: 12/20/20 09:08 Dose: 40 mg Documented by: Trazodone HCl (Trazodone Hcl 100 Mg Tab) 100 mg PO [facility] Last Admin: 12/20/20 21:07 Dose: 100 mg Documented by: Past medical history to include: Diabetes, hyperlipidemia, peripheral neuropathy, MRSA infection including abscess and cellulitis,, anxiety, Social history: Patient lives with his 2 children. Previously did [employer]. Smoking 2 packs a day for 32 , claiming stop 2 weeks ago. Alcohol occasionally. Physical examination: VITAL SIGNS: 98.1, 93, 16, 129 with 68, 95% room air GENERAL:, sitting up in the bed, comfortable EYES: Pupils equal. Conjunctiva normal. HEENT: External appearance of nose and ears normal, oral cavity grossly normal. NECK: JVD not raised; masses not palpable. HEART: First and second heart sounds are normal; edema present LUNGS: Respiratory rate increased, decreased breath sounds. ABDOMEN: Soft, nontender, liver spleen not palpable, no masses palpable. PSYCH: Alert and oriented x3; mood and affect normal. DERMATOLOGICAL: lower extremity patient has wounds of different ages pretty much localized. With some scarring. Some rather active with active inflammation and tenderness. More detail in nursing notes. INVESTIGATIONS, reviewed in the clinical context: December 20: Potassium 6 creatinine 2.39 December 19: Creatinine 2.43 December 18: Potassium 4.3 creatinine 3.17 sodium 132 WBC 10.6 hemoglobin 10 platelets 259 sodium 125 potassium 5 bun 44 creatinine 1.77 glucose 623 LDL 62 Serum acetone negative Coronavirus [PCR]-not detected Wound culture: MRSA, streptococcus pyogenous group A EKG tracing personally reviewed by me- Chest x-ray film personally reviewed by me-clear Previous testing: BUN 33 creatinine 1.74 on 10/13/2020 Assessment and plan: -Acute on chronic lower extremity wounds of different ages some being active. Patient has previous MRSA infection. This time presenting with a sepsis picture. Wound cultures positive for: MRSA and Streptococcus pyogenes group A Started IV vancomycin.-Changed over to daptomycin -Chronic congestive heart failure from diastolic dysfunction EF 50-55% Follow hemodynamic state/fluids state -Secondary pulmonary hypertension due to CHF Follow clinically -Diabetes mellitus type 2 chronically on insulin uncontrolled with nonketotic hyperglycemia IV fluids. Follow Accu-Cheks. Resume long-acting insulin. Humalog with meals -Diabetic peripheral neuropathy Continue gabapentin -Hyperlipidemia Lipitor -COPD in a current smoker Continue home bronchodilators -Chronic kidney disease stage III likely combination of diabetic nephropathy and hypertensive medicine sclerosis Follow renal function -Acute kidney injury, could be from vancomycin Vancomycin discontinued. IV fluids. Follow creatinine -Hyperkalemia secondary to kidney disease Kayexalate today. Renal diet to continue. Patient had received drinks from outside the hospital.. Told and so discontinued the same. Kayexalate. Repeat labs. Discussed with Dr. Milligan from ID. IV daptomycin for 2 weeks as outpatient
[2020-12-21] MEDS: SODIUM CHLORIDE 0.9% 1,000 ML IV SCH ×2 (05:32→16:43)
[2020-12-21 07:05] LABS: Glucose,Whole Blood 347 mg/dL (75-99)
[2020-12-21] MEDS: ENOXAPARIN 30 MG/0.3 ML SYRINGE SQ SCH (07:37)
[2020-12-21] MEDS: DULoxetine HCL 60 MG CAPSULE.DR PO SCH (07:38)
[2020-12-21] MEDS: amLODIPine 5 MG TAB PO SCH (07:38)
[2020-12-21] MEDS: PANTOPRAZOLE 40 MG TABLET PO SCH (07:38)
[2020-12-21] MEDS: hydrALAZINE HCL 50 MG TAB PO SCH ×3 (07:38→17:34)
[2020-12-21] MEDS: GABAPENTIN 400 MG CAP PO SCH ×3 (07:38→19:28)
[2020-12-21] MEDS: MIDODRINE 5 MG TAB PO SCH ×3 (07:39→17:37)
[2020-12-21] MEDS: ACETAMINOPHEN TAB 325 MG TAB PO PRN (07:56)
[2020-12-21] MEDS: SYMBICORT 80-4.5 MCG INHALER INHALATION SCH ×2 (08:18→20:59)
[2020-12-21] MEDS: INSULIN ASPART (NovoLOG) 100 UNIT/ML VIAL SQ SCH ×6 (08:40→21:18)
[2020-12-21] MEDS ORDERED: FUROSEMIDE 10 MG/ML 2 ML VIAL IV ONE (11:00)
[2020-12-21 11:06] LABS: Glucose,Whole Blood 369 mg/dL (75-99)
[2020-12-21 11:24] LABS: African American GFR (CKD) 33 (>60 ml/min/1.73 sqM); Anion Gap 6 mmol/L; Blood Urea Nitrogen 54 mg/dL (9-20); Calcium 8.1 mg/dL (8.4-10.2); Carbon Dioxide 26 mmol/L (22-30); Chloride 101 mmol/L (98-107); Glucose 338 mg/dL (74-99); Non-African American GFR(CKD) 28 (>60 ml/min/1.73 sqM); Sodium 133 mmol/L (137-145)
[2020-12-21 11:36] LABS: Potassium 6.1 mmol/L (3.5-5.1)
[2020-12-21] MEDS ORDERED: SODIUM POLYSTYRENE SULFONATE 15 GM/60 ML BOTTLE PO STA ×2 (11:43→11:58)
[2020-12-21] MEDS ORDERED: SODIUM BICARB 8.4% 50 ML SYR (1 MEQ/ML) IV STA (11:44)
[2020-12-21] MEDS ORDERED: INSULIN REGULAR 100 UNIT/ML VIAL IV ONE (12:00)
[2020-12-21] MEDS ORDERED: CALCIUM GLUCONATE 1 GM in SODIUM CHLORIDE 0.9% 100 ML IVPB ONE (12:30)
[2020-12-21 16:59] LABS: Glucose,Whole Blood 206 mg/dL (75-99)
--- NOTE | 2020-12-21 17:12 | PN ---
PROGRESS NOTE DATE OF SERVICE: 12/21/2020 REASON FOR FOLLOWUP: Right lower extremity MRSA abscess and cellulitis. INTERVAL HISTORY: The patient is afebrile, has been complaining of swelling in both upper and lower extremities. Denies having any chest pain or shortness of breath or cough or any worsening pain to the right lower extremity wound area. PHYSICAL EXAMINATION: Blood pressure 156/74, pulse of 92, temperature 97.6. He is 96% on room air. General description is a middle-aged male up in the bed in no distress. RESPIRATORY SYSTEM: Unlabored breathing with decreased breath sounds at the base. No wheeze. HEART: S1, S2. Regular rate and rhythm. ABDOMEN: Soft. No tenderness. Right lower extremity did have multiple superficial ulceration and abscess areas, though redness has decreased. LABS: BUN of 54, creatinine is 2.56. DIAGNOSTIC IMPRESSION AND PLAN: Patient with right lower extremity multiple abscesses and cellulitis. Culture has been positive for MRSA and Streptococcus agalactiae. The patient did have worsening of his kidney function with the vancomycin and high risk of nephrotoxicity with Bactrim DS and he is resistant to doxycycline; hence recommend getting a midline for a 2-week course of IV daptomycin in the outpatient setting with close outpatient followup. All his questions and concerns were answered. MMODL / IJN: [id number] /
[2020-12-21] MEDS ORDERED: INSULIN ASPART (NovoLOG) 100 UNIT/ML VIAL SQ SCH (17:30)
--- NOTE | 2020-12-21 18:18 | PN ---
PROGRESS NOTE Patient is seen for followup for acute kidney injury. His creatinine is actually worse today, up to 2.5 from 2.3 yesterday. Patient states his urine output has decreased. Serum potassium remains elevated as well. No evidence of hydronephrosis noted on ultrasound. Patient has been voiding. Blood pressure was low yesterday, with systolic around 93 mmHg. Patient has not received any nephrotoxic medications. PHYSICAL EXAMINATION: On examination today, blood pressure was 144/55, heart rate 85 per minute. He is afebrile. Examination shows edema 1+ bilaterally in lower extremities. Multiple abscesses noted in the right leg. There is one noted in the left leg as well. MECHANICAL SYSTEMS CONTROL ENGINEER exam grossly intact. LABS: Labs from today show sodium 133, potassium 6.1, chloride 101, BUN 54, serum creatinine 2.56. ASSESSMENT: 1. Acute kidney injury with worsening renal function. No evidence of hydronephrosis on ultrasound. UA shows evidence of protein and blood. Patient has not received any IV contrast during this hospitalization. I will check a post-void bladder scan and we will also check serologies to rule out underlying acute GN, given the hematuria and proteinuria. 2. Chronic kidney disease. Previous creatinine has been around 1.7 mg/dL. Etiology diabetic nephropathy. 3. Multiple abscesses, right leg, as well as one in the left leg, too, maintained on daptomycin. 4. Hyperkalemia associated with acute kidney injury as well as hyperglycemia. PLAN: Lasix 20 mg IV x1. Check post-void residual. Control blood sugars. Check serologies to rule out any underlying acute GN, given the worsening renal function over the past few days. MMODL / IJN: [id number] /
[2020-12-21] MEDS: traZODone HCL 100 MG TAB PO SCH (19:28)
[2020-12-21 20:28] LABS: Glucose,Whole Blood 277 mg/dL (75-99)
[2020-12-21] MEDS: INSULIN DETEMIR (LEVEMIR) 100 UNIT/ML SYR SQ SCH (21:17)
--- NOTE | 2020-12-21 23:14 | P.PN ---
Progress Note - Text Progress Note Date: 12/21/20 Chief Complaint: Leg wounds History of presenting complaint This is a very pleasant 50-year-old patient was chronic stable medical conditions include diabetes mellitus type 2, peripheral neuropathy, hyperlipidemia and a prior history of MRSA abscess and cellulitis.. Patient has chronic leg wounds which is followed up with Dr. Milligan for some time. Did used to follow with him at the wound care center. Of recently's note is that the wounds of become worse. This scattered on the legs. Couple of been draining. For a week. Has had some fever and chills. Has decided to come in. Painful Admitted with multiple superficial ulcer/abscess of lower extremity. Started on IV vancomycin. Swished total IV daptomycin. Acute kidney injury. IV fluids. Today: On IV daptomycin. Potassium again 6.1 this morning. Getting some supplemental drinks with potassium and the same. I did ask the nurse to discontinue. Put extremity edema Review of systems: Was done for constitutional, cardiovascular, GI, pulmonary. relevant finding as above Active Medications Acetaminophen (Acetaminophen Tab 325 Mg Tab) 650 mg PO Q4H PRN PRN Reason: Mild Pain or Fever > 100.5 Last Admin: 12/21/20 07:56 Dose: 650 mg Documented by: Albuterol Sulfate (Albuterol Nebulized 2.5 Mg/3 Ml) 2.5 mg INHALATION RT-Q6H PRN PRN Reason: Shortness Of Breath Amlodipine Besylate (Amlodipine 5 Mg Tab) 5 mg PO DAILY [facility] Last Admin: 12/21/20 07:38 Dose: 5 mg Documented by: Budesonide/Formoterol Fumarate (Symbicort 80-4.5 Mcg Inhaler) 2 puff INHALATION RT-BID [facility] Last Admin: 12/21/20 20:59 Dose: 2 puff Documented by: Duloxetine HCl (Duloxetine Hcl 60 Mg Capsule.) 60 mg PO DAILY [facility] Last Admin: 12/21/20 07:38 Dose: 60 mg Documented by: Enoxaparin Sodium (Enoxaparin 30 Mg/0.3 Ml Syringe) 30 mg SQ DAILY [facility] Last Admin: 12/21/20 07:37 Dose: 30 mg Documented by: Gabapentin (Gabapentin 400 Mg Cap) 400 mg PO TID [facility] Last Admin: 12/21/20 19:28 Dose: 400 mg Documented by: Hydralazine HCl (Hydralazine Hcl 50 Mg Tab) 50 mg PO AC-TID [facility] Last Admin: 12/21/20 17:34 Dose: 50 mg Documented by: Daptomycin 300 mg/ Sodium (Chloride) 50 mls @ 100 mls/hr IVPB Q24HR [facility]; Protocol Last Admin: 12/21/20 07:37 Dose: 100 mls/hr Documented by: Insulin Aspart (Insulin Aspart (Novolog) 100 Unit/Ml Vial) 0 unit SQ [facility]; Protocol Last Admin: 12/21/20 21:18 Dose: 4 unit Documented by: Insulin Aspart (Insulin Aspart (Novolog) 100 Unit/Ml Vial) 14 unit SQ AC-TID [facility] Last Admin: 12/21/20 17:34 Dose: 14 unit Documented by: Insulin Detemir (Insulin Detemir (Levemir) 100 Unit/Ml Syr) 62 unit SQ [facility] Last Admin: 12/21/20 21:17 Dose: 62 unit Documented by: Midodrine (Midodrine 5 Mg Tab) 2.5 mg PO AC-TID [facility] Last Admin: 12/21/20 17:37 Dose: Not Given Documented by: Nitroglycerin (Nitroglycerin Sl Tabs 0.4 Mg Tab) 0.4 mg SUBLINGUAL Q5M PRN PRN Reason: Chest Pain Ondansetron HCl (Ondansetron 4 Mg Tab) 4 mg PO TID PRN PRN Reason: Nausea Pantoprazole Sodium (Pantoprazole 40 Mg Tablet) 40 mg PO AC-BRKFST [facility] Last Admin: 12/21/20 07:38 Dose: 40 mg Documented by: Trazodone HCl (Trazodone Hcl 100 Mg Tab) 100 mg PO [facility] Last Admin: 12/21/20 19:28 Dose: 100 mg Documented by: Past medical history to include: Diabetes, hyperlipidemia, peripheral neuropathy, MRSA infection including abscess and cellulitis,, anxiety, Social history: Patient lives with his 2 children. 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 Smoking 2 packs a day for 32 , claiming stop 2 weeks ago. Alcohol occasionally. Physical examination: VITAL SIGNS: 97.6, 92, 18, 1 5634, 96% room air GENERAL:, sitting up in the bed, comfortable EYES: Pupils equal. Conjunctiva normal. HEENT: External appearance of nose and ears normal, oral cavity grossly normal. NECK: JVD not raised; masses not palpable. HEART: First and second heart sounds are normal; edema present LUNGS: Respiratory rate increased, decreased breath sounds. ABDOMEN: Soft, nontender, liver spleen not palpable, no masses palpable. PSYCH: Alert and oriented x3; mood and affect normal. DERMATOLOGICAL: lower extremity patient has wounds of different ages pretty much localized. With some scarring. Some rather active with active inflammation and tenderness. More detail in nursing notes. INVESTIGATIONS, reviewed in the clinical context: December 21: Potassium 6.1 creatinine 2.56 December 20: Potassium 6 creatinine 2.39 December 19: Creatinine 2.43 December 18: Potassium 4.3 creatinine 3.17 sodium 132 WBC 10.6 hemoglobin 10 platelets 259 sodium 125 potassium 5 bun 44 creatinine 1.77 glucose 623 LDL 62 Serum acetone negative Coronavirus [PCR]-not detected Wound culture: MRSA, streptococcus pyogenous group A EKG tracing personally reviewed by me- Chest x-ray film personally reviewed by me-clear Previous testing: BUN 33 creatinine 1.74 on 10/13/2020 Assessment and plan: -Acute on chronic lower extremity wounds of different ages some being active. Patient has previous MRSA infection. This time presenting with a sepsis picture. Wound cultures positive for: MRSA and Streptococcus pyogenes group A IV vancomycin.-Changed over to daptomycin -Chronic congestive heart failure from diastolic dysfunction EF 50-55% Follow hemodynamic state/fluids state -Secondary pulmonary hypertension due to CHF Follow clinically -Diabetes mellitus type 2 chronically on insulin uncontrolled with nonketotic hyperglycemia IV fluids. Follow Accu-Cheks. Resume long-acting insulin. Humalog with meals -Diabetic peripheral neuropathy Continue gabapentin -Hyperlipidemia Lipitor -COPD in a current smoker Continue home bronchodilators -Chronic kidney disease stage III likely combination of diabetic nephropathy and hypertensive medicine sclerosis Follow renal function -Acute kidney injury, could be from vancomycin Vancomycin discontinued. IV fluids. Follow creatinine -Hyperkalemia secondary to kidney disease-slow to respond Kayexalate 45 g. Sodium bicarbonate. Calcium gluconate. IV insulin. IV Lasix. Follow potassium Discussed with the patient. Also place on fluid restriction. Repeat labs
[2020-12-21] MEDS ORDERED: INSULIN DETEMIR (LEVEMIR) 100 UNIT/ML SYR SQ SCH (23:16)
[2020-12-22 03:48] LABS: Hepatitis B Surface AB- Quant 3.5 mIU/mL; Hepatitis B Surface Antibody Non-Reactive (Non-Reactive); Hepatitis B Surface Antigen Non-Reactive (Non-Reactive); Hepatitis C IgG Antibody Non-Reactive (Non-Reactive)
[2020-12-22 07:38] LABS: Glucose,Whole Blood 235 mg/dL (75-99)
[2020-12-22] MEDS: ENOXAPARIN 30 MG/0.3 ML SYRINGE SQ SCH (07:38)
[2020-12-22] MEDS: GABAPENTIN 400 MG CAP PO SCH ×3 (07:38→21:33)
[2020-12-22] MEDS: amLODIPine 5 MG TAB PO SCH (07:38)
[2020-12-22] MEDS: PANTOPRAZOLE 40 MG TABLET PO SCH (07:38)
[2020-12-22] MEDS: DULoxetine HCL 60 MG CAPSULE.DR PO SCH (07:39)
[2020-12-22] MEDS: hydrALAZINE HCL 50 MG TAB PO SCH ×3 (07:39→18:10)
[2020-12-22] MEDS: MIDODRINE 5 MG TAB PO SCH ×3 (07:40→17:44)
[2020-12-22] MEDS: ACETAMINOPHEN TAB 325 MG TAB PO PRN ×3 (07:51→21:40)
[2020-12-22] MEDS: INSULIN ASPART (NovoLOG) 100 UNIT/ML VIAL SQ SCH ×7 (07:52→21:33)
[2020-12-22] MEDS: SYMBICORT 80-4.5 MCG INHALER INHALATION SCH ×2 (08:35→19:38)
[2020-12-22 11:22] LABS: Glucose,Whole Blood 178 mg/dL (75-99)
--- NOTE | 2020-12-22 13:01 | US ---
EXAMINATION TYPE: US venous doppler duplex LE DATE OF EXAM: 12/22/2020 12:53 PM COMPARISON: CT chest abdomen and pelvis October 06, 2020 CLINICAL HISTORY: Rule out DVT. Leg swelling SIDE PERFORMED: Bilateral TECHNIQUE: The lower extremity deep venous system is examined utilizing real time linear array sonog german with graded compression, doppler sonography and color-flow sonography. VESSELS IMAGED: Common Femoral Vein Deep Femoral Vein Greater Saphenous Vein * Femoral Vein Popliteal Vein Small Saphenous Vein * Proximal Calf Veins (* superficial vessels) Right Leg: Negative for DVT, multiple enlarged lymph nodes within right groin Left Leg: Negative for DVT Grayscale, color doppler, spectral doppler imaging performed of the deep veins of the bilateral lower extremities. There is normal flow, compressibility, vascular waveforms. IMPRESSION: No ultrasound evidence for acute DVT in either lower extremity. Prominent right groin ly mph nodes redemonstrated. Prominent left groin lymph nodes on recent CT not clearly seen on ultrasoun d images saved today.
[2020-12-22] MEDS ORDERED: FUROSEMIDE 10 MG/ML 4 ML VIAL IV STA (13:22)
--- NOTE | 2020-12-22 15:31 | PN ---
PROGRESS NOTE The patient is seen for followup for acute kidney injury. His renal function has been worsening over the past couple of days. The patient has also had increased lower extremity edema. He was given a dose of IV Lasix yesterday and states that he has not had any significant improvement. Urine output is not accurately charted, but patient does not have elevated postvoid residual. PHYSICAL EXAMINATION: On examination today, blood pressure was 144/71, heart rate 94 per minute. He is afebrile. Examination shows edema 2+ bilaterally upper and lower extremities. Multiple abscesses noted in the right leg and one on the left leg too. FORM SETTER HELPER exam grossly intact. Abdomen is soft, nontender. LABS: Labs are pending from today. ASSESSMENT: 1. Acute kidney injury, rule out underlying GN. Otherwise, most likely acute tubular necrosis. Renal function slightly worsening over the last few days. Serologies were ordered so far negative. Continue to maintain patient off of IV fluids. No evidence of urine retention. An ultrasound was unremarkable. Repeat labs today. 2. Chronic kidney disease. Previous creatinine about 1.7 secondary to diabetic nephropathy NKF stage 3B. 3. Abscesses on the right leg and one on the left leg also, maintained on daptomycin, being followed by ID. 4. Hyperkalemia associated with hyperglycemia, status post Kayexalate yesterday. Repeat labs pending from today. 5. Volume overload. PLAN: Repeat IV Lasix. I will give 40 mg IV as compared to 20 mg yesterday. Repeat labs in a.m. Await further serologies. Continue to avoid nephrotoxic agents and avoid hypotension. MMODL / IJN: [id number] /
--- NOTE | 2020-12-22 16:12 | P.PN ---
Subjective From records: This is a very pleasant 50-year-old patient was chronic stable medical conditions include diabetes mellitus type 2, peripheral neuropathy, hyperlipidemia and a prior history of MRSA abscess and cellulitis.. Patient has chronic leg wounds which is followed up with Dr. Milligan for some time. Did used to follow with him at the wound care center. Of recently's note is that the wounds of become worse. This scattered on the legs. Couple of been draining. For a week. Has had some fever and chills. Has decided to come in. Painful Admitted with multiple superficial ulcer/abscess of lower extremity. Started on IV vancomycin. Swished total IV daptomycin. Acute kidney injury. IV fluids. Today: On IV daptomycin. Potassium again 6.1 this morning. Getting some supplemental drinks with potassium and the same. I did ask the nurse to discontinue. Put extremity edema Subjective: 12/22/2020 This is a pleasant 50 years old male who presents with bilateral lower extremity ulcers secondary to MRSA and Streptococcus agalactiae been covered currently with daptomycin, he will need 2 weeks of IV antibiotics upon discharge. Infe ctious disease team on the case. Also nephrology team following the case for acute kidney injury secondary to Vanco, with urinalysis showing protein and blood sample, nephrology of the case and serology for possible, and arthritis is ordered and is pending. Creatinine yesterday was elevated at 2.5 compared to baseline of 1.7. Activities Officer. We will check creatinine tomorrow. The patient hemodynamically stable. His sugar has been elevated and insulin dose was adjusted. His ejection fraction is 50-55%. Patient has been complaining of from chest pain since admission however cardiology cleared him. Patient's Chest pain as mild 1-2/10, felt like dull, and the middle radiated to the left side. Doppler of the lower extremity is negative for DVT and shortened right groin lymphadenopathy, mostly related to his infection Patient currently is covered with daptomycin as above. Objective - Vital Signs Vital signs: Vital Signs Temp 97.9 F 12/22/20 15:00 Pulse 87 12/22/20 15:00 Resp 16 12/22/20 15:00 BP 150/61 12/22/20 15:00 Pulse Ox 93 L 12/22/20 15:00 Intake & Output 12/21/20 12/22/20 12/22/20 18:59 06:59 18:59 Intake Total 200 Output Total 407 150 525 Balance -407 -150 -325 Weight 79.832 kg Intake: Oral 200 Output: Urine 325 150 525 Post Void Residual 82 Other: Voiding Method Toilet Toilet Toilet # Voids 3 2 # Bowel Movements 2 - Exam GENERAL: The patient is alert and oriented x3, not in any acute distress. Well developed, well nourished. HEENT: Pupils are round and equally reacting to light. EOMI. No scleral icterus. No conjunctival pallor. Normocephalic, atraumatic. No pharyngeal erythema. No thyromegaly. CARDIOVASCULAR: S1 and S2 present. No murmurs, rubs, or gallops. PULMONARY: Chest is clear to auscultation, no wheezing or crackles. ABDOMEN: Soft, nontender, nondistended, normoactive bowel sounds. No palpable organomegaly. MUSCULOSKELETAL: No joint swelling or deformity. -EXTREMITIES: No cyanosis, clubbing, bilateral pitting leg edema. Mild superficial threadlike ulcer in the left leg and 2 large ulcers in the right knee and the right leg with no surrounding cellulitis, healing NEUROLOGICAL: Gross neurological examination did not reveal any focal deficits. SKIN: No rashes. no petechiae. - Labs CBC & Chem 7: 12/16/20 15:21 12/21/20 10:38 Labs: Abnormal Lab Results - Last 24 Hours (Table) 12/21/20 12/21/20 12/22/20 Range/Units 16:58 20:25 07:36 POC Glucose (mg/dL) 206 H 277 H 235 H (75-99) mg/dL 12/22/20 Range/Units 11:21 POC Glucose (mg/dL) 178 H (75-99) mg/dL Microbiology - Last 24 Hours (Table) 12/16/20 19:51 Blood Culture - Preliminary Blood No Growth after 120 hours Assessment and Plan Assessment: Bilateral lower extremity superficial ulceration with infection secondary to MRSA and Streptococcus galactorrhea -Acute kidney injury, suspected secondary to IV vancomycin on the top of chronic kidney disease stage III. -Proteinuria and mild hematuria, rule out, nephritis. Activities Officer team on the case -Chronic kidney disease stage III -Chronic diastolic CHF with EF 50-55% -Chronic leg wound, patient follow up with ID Dr. Srini -Hyperlipidemia -2 diabetes mellitus -Diabetic peripheral neuropathy -COPD in current smoker -Nicotine dependence Plan: This is a pleasant 50 years old male who presents with leg infection on both sides secondary to MRSA and Streptococcus galactorrhea on daptomycin. ID team on the case and they recommended daptomycin for 2 weeks as an outpatient with close following. Activities Officer team on the case for acute kidney injury and serology for GN is requested PER Dr. Rodgers Labs and medication were reviewed.. Continue same treatment. Continue with symptomatic treatment. Resume home medication. Monitor lytes and vitals. DVT and GI prophylaxis. Further recommendationsas per clinical course of the patien t DVT prophylaxis: Subcutaneous Lovenox GI Prophylaxis: PPI PT/OT: Pending Prognosis is guarded
--- NOTE | 2020-12-22 16:42 | PN ---
PROGRESS NOTE DATE OF SERVICE: 12/22/2020 REASON FOR FOLLOWUP: Right lower extremity abscess and cellulitis INTERVAL HISTORY: The patient is afebrile. The patient has been breathing comfortably. Patient denies any chest pain. Complaining of shortness of breath and lower extremity and upper extremity swelling with abdominal distention and complaining of some diarrhea. PHYSICAL EXAMINATION: Blood pressure is 144/71, pulse 94, temperature 98.6, he is 94% on room air. General description is a middle-aged male lying in bed in no distress. Respiratory system: Unlabored breathing, clear to auscultation anteriorly. HEART: S1, S2. Regular rate and rhythm. Abdomen is soft, no tenderness. Right lower extremity multiple skin intensity. LABS: No new labs have been obtained today. DIAGNOSTIC IMPRESSION AND PLAN: 1. Patient with right lower extremity abscess and cellulitis, MRSA and strep. Patient is on daptomycin as she did have problems with vancomycin and continue in the outpatient setting for another 10 days to 2 weeks to finish a course of therapy. 2. Patient with diarrhea. Check a stool for C difficile and treat if positive. MMODL / IJN: [id number] /
[2020-12-22 17:29] LABS: Glucose,Whole Blood 124 mg/dL (75-99)
[2020-12-22 20:37] LABS: Glucose,Whole Blood 220 mg/dL (75-99)
[2020-12-22] MEDS ORDERED: INSULIN DETEMIR (LEVEMIR) 100 UNIT/ML SYR SQ SCH (21:00)
[2020-12-22] MEDS: traZODone HCL 100 MG TAB PO SCH (21:33)
[2020-12-22] MEDS: ONDANSETRON 4 MG TAB PO PRN (21:40)
[2020-12-23 00:04] LABS: African American GFR (CKD) 33.7 (60.0-200.0); Anion Gap 9.1 mmol/L (4.00-12.00); BUN/Creat Ratio 22.8 Ratio (12.00-20.00); Calcium 8.5 mg/dL (8.7-10.3); Carbon Dioxide 23.9 mmol/L (21.6-31.8); Non-African American GFR(CKD) 29.1 (60.0-200.0)
[2020-12-23] MEDS: SYMBICORT 80-4.5 MCG INHALER INHALATION SCH ×2 (07:29→20:49)
[2020-12-23 08:00] LABS: Glucose,Whole Blood 80 mg/dL (75-99)
[2020-12-23] MEDS: MIDODRINE 5 MG TAB PO SCH ×3 (08:10→17:18)
[2020-12-23] MEDS: INSULIN ASPART (NovoLOG) 100 UNIT/ML VIAL SQ SCH ×7 (08:10→21:08)
[2020-12-23] MEDS: PANTOPRAZOLE 40 MG TABLET PO SCH (08:23)
[2020-12-23] MEDS: DULoxetine HCL 60 MG CAPSULE.DR PO SCH (08:23)
[2020-12-23] MEDS: amLODIPine 5 MG TAB PO SCH (08:23)
[2020-12-23] MEDS: GABAPENTIN 400 MG CAP PO SCH ×3 (08:23→21:12)
[2020-12-23] MEDS: ENOXAPARIN 30 MG/0.3 ML SYRINGE SQ SCH (08:23)
[2020-12-23] MEDS: hydrALAZINE HCL 50 MG TAB PO SCH ×3 (08:23→17:21)
[2020-12-23] MEDS: FUROSEMIDE 10 MG/ML 4 ML VIAL IV SCH ×2 (09:12→20:57)
[2020-12-23 09:54] LABS: Basophils # (A) 0.03 X 10*3/uL (0.00-0.10); Basophils % (A) 0.5 %; Eosinophils # (A) 0.14 X 10*3/uL (0.04-0.35); Eosinophils % (A) 2.2 %; HCT 22.4 % (39.6-50.0); HGB 7.1 g/dL (13.0-17.0); Lymphocytes # (A) 0.85 X 10*3/uL (0.90-5.00); Lymphocytes % (A) 13.4 %; MCH 29.7 pg (27.0-32.0); MCHC 31.7 g/dL (32.0-37.0); MCV 93.7 fL (80.0-97.0); Monocytes # (A) 0.76 X 10*3/uL (0.20-1.00); Neutrophils # (A) 4.41 X 10*3/uL (1.80-7.70); Neutrophils % (A) 69.4 %; Platelet Count 209 X 10*3/uL (140-440); RBC 2.39 X 10*6/uL (4.40-5.60); RDW 11.9 % (11.5-14.5); WBC 6.35 X 10*3/uL (4.50-10.00)
[2020-12-23 11:13] LABS: African American GFR (CKD) 30.7 (60.0-200.0); Anion Gap 4.7 mmol/L (4.00-12.00); BUN/Creat Ratio 23.33 Ratio (12.00-20.00); Calcium 8.4 mg/dL (8.7-10.3); Carbon Dioxide 27.3 mmol/L (21.6-31.8); Magnesium 2.3 mg/dL (1.5-2.4); Non-African American GFR(CKD) 26.5 (60.0-200.0)
[2020-12-23 12:10] LABS: Glucose,Whole Blood 263 mg/dL (75-99)
--- NOTE | 2020-12-23 13:04 | XR ---
EXAMINATION TYPE: XR chest 1V DATE OF EXAM: 12/23/2020 CLINICAL HISTORY: Difficulty breathing and cough progress study. TECHNIQUE: Single AP portable upright view of the chest is obtained. COMPARISON: Chest x-ray from one week earlier. CT October 06, 2020 FINDINGS: Stable mild cardiomegaly. New Increased bibasilar and left mid to lower lung peripheral op acity on background low lung volumes similar to prior. Osseous structures are intact. IMPRESSION: Mild cardiomegaly and low lung volumes with new bibasilar and peripheral left mid to lowe r lung acute opacities, consider covid-19 infection in current environment.
[2020-12-23 13:40] LABS: C-ANCA <1:20 Titer (<1:20)
[2020-12-23] MEDS: ACETAMINOPHEN TAB 325 MG TAB PO PRN (15:14)
[2020-12-23] MEDS: guaiFENesin-Coden 100-10MG/5ML 10 ML CUP PO SCH ×2 (15:53→21:12)
[2020-12-23 17:15] LABS: Glucose,Whole Blood 232 mg/dL (75-99)
--- NOTE | 2020-12-23 17:27 | PN ---
PROGRESS NOTE DATE OF SERVICE: 12/23/2020 REASON FOR FOLLOWUP: Right lower extremity abscess and cellulitis secondary to MRSA and Streptococcus pyogenes. INTERVAL HISTORY: The patient is currently afebrile. He mentioned he is breathing slightly comfortably. Still complaining of abdominal distention. Right lower extremity with multiple legions, have decreased in intensity and no drainage. PHYSICAL EXAMINATION: Blood pressure 156/73, pulse of 85, temperature 98.1. He is 96% on room air. General description is a middle-aged male up in the bed in no distress. Respiratory system: Unlabored breathing, decreased breath sounds in the base, no wheeze. Heart S1, S2. Regular rate and rhythm. Abdomen soft, no tenderness. Right lower extremity with multiple ulcerations and cellulitis but has shown improvement. No drainage. LABS: Hemoglobin 7.8, white count 6.35, BUN of 63, creatinine 2.7. DIAGNOSTIC IMPRESSION AND PLAN: Patient with right lower extremity multiple lesions, MRSA and strep. The patient is covered with daptomycin because of problems with vancomycin and kidney function. Plan is for another 10 days of IV daptomycin in outpatient setting. Continue supportive care. MMODL / IJN: [id number] /
[2020-12-23 20:11] LABS: Glucose,Whole Blood 117 mg/dL (75-99)
--- NOTE | 2020-12-23 20:18 | PN ---
PROGRESS NOTE The patient is seen for followup for acute kidney injury. He is currently sitting up in bed. Edema has improved but still present. Overall, patient states he is feeling slightly better but continues to feel weak. His potassium remains at 6. EXAMINATION: On examination today, blood pressure is 127/63, heart rate 92 per minute. He is afebrile. Examination of lower extremities shows edema, slightly decreased. Multiple abscesses on the right leg and a couple in the left leg, seem to be improving. [employer] exam grossly intact. LAB: Show sodium 134, potassium 6.0, chloride 102, BUN 63, serum creatinine 2.7 mg/dL. ASSESSMENT: 1. Acute kidney injury most likely acute tubular necrosis associated with underlying infection. There was possibility of acute GN associated with underlying infection given the presence of proteinuria and hematuria. The urine serologies are currently negative. Serum creatinine is again higher today. The patient is off IV fluids secondary to volume overload. He is not on any nephrotoxic medications. He may need a kidney biopsy if his renal function continues to worsen. 2. Hyperkalemia associated with acute kidney injury. Expect improvement with the initiation of loop diuretics. No evidence of obstruction. 3. Possible gastrointestinal bleed. Hemoglobin is decreased to 7.1 g/dL. 4. Cellulitis abscess in the lower extremities. Maintained on antibiotics. Wound cultures growing MRSA, not on vancomycin. 5. Volume overload maintained on Lasix. We will continue with b.i.d. dosing for now to help with the hyperkalemia and repeat labs in a.m. PLAN: Maintain Lasix q.12 hours. Repeat labs in a.m. Consider kidney biopsy if renal function continues to worsen. So far all serologies are negative. MMODL / IJN: [id number] /
[2020-12-23] MEDS: traZODone HCL 100 MG TAB PO SCH (20:56)
--- NOTE | 2020-12-23 20:56 | P.PN ---
Subjective From records: This is a very pleasant 50-year-old patient was chronic stable medical conditions include diabetes mellitus type 2, peripheral neuropathy, hyperlipidemia and a prior history of MRSA abscess and cellulitis.. Patient has chronic leg wounds which is followed up with Dr. Milligan for some time. Did used to follow with him at the wound care center. Of recently's note is that the wounds of become worse. This scattered on the legs. Couple of been draining. For a week. Has had some fever and chills. Has decided to come in. Painful Admitted with multiple superficial ulcer/abscess of lower extremity. Started on IV vancomycin. Swished total IV daptomycin. Acute kidney injury. IV fluids. Today: On IV daptomycin. Potassium again 6.1 this morning. Getting some supplemental drinks with potassium and the same. I did ask the nurse to discontinue. Put extremity edema Subjective: 12/22/2020 This is a pleasant 50 years old male who presents with bilateral lower extremity ulcers secondary to MRSA and Streptococcus agalactiae been covered currently with daptomycin, he will need 2 weeks of IV antibiotics upon discharge. Infe ctious disease team on the case. Also nephrology team following the case for acute kidney injury secondary to Vanco, with urinalysis showing protein and blood sample, nephrology of the case and serology for possible, and arthritis is ordered and is pending. Creatinine yesterday was elevated at 2.5 compared to baseline of 1.7. Negative Spotter. We will check creatinine tomorrow. The patient hemodynamically stable. His sugar has been elevated and insulin dose was adjusted. His ejection fraction is 50-55%. Patient has been complaining of from chest pain since admission however cardiology cleared him. Patient's Chest pain as mild 1-2/10, felt like dull, and the middle radiated to the left side. Doppler of the lower extremity is negative for DVT and shortened right groin lymphadenopathy, mostly related to his infection Patient currently is covered with daptomycin as above. 12/23/2020 Patient is awake, does not look distress however he is coughing a lot with central chest pain with coughing and is bothering him although it is mild. Robitussin is provided and chest x-ray repeated showing bilateral mid and lower lung field infiltrates, suspicious for infection and the planned image sitting per radiologist's recommendation. covid PCR is requested. Oxygen is below 95 but above 90% since yesterday Other than that his creatinine trended up 2.5 to 2.7, potassium 6.0 from 6.1 yesterday. Serology workup is negative. Discussed the case with nephrology team, we will monitor patient creatinine tomorrow. Kidney biopsy to be considered if no improvement in renal function per nephrology team. Mucosa fluctuating 80-200, swelling is adjusted increasing level of 220 units with meals and oriented and Levemir to 65 units at bedtime. Patient remains on daptomycin for right leg ulcers and infection with MRSA and stripped agalactia. Continue with Lasix IV 40 mg twice daily. Prognosis is guarded for the patient Review of systems CONSTITUTIONAL: No fever, no malaise, no fatigue. HEENT: No recent visual problems or hearing problems. Denied any sore throat. CARDIOVASCULAR: No orthopnea, PND, no palpitations, no syncope. PULMONARY: No chest wall tenderness, no hemoptysis. GASTROINTESTINAL: No diarrhea, no nausea, no vomiting, no abdominal pain. Normoactive bowel sounds. NEUROLOGICAL: No headaches, no weakness, no numbness. Active Medications Generic Name Dose Route Start Last Admin Trade Name Freq PRN Reason Stop Dose Admin Acetaminophen 650 mg 12/16/20 19:00 12/23/20 15:14 Acetaminophen Tab 325 Mg Tab PO 650 mg Q4H PRN Administration Mild Pain or Fever > 100.5 Albuterol Sulfate 2.5 mg 12/16/20 19:00 Albuterol Nebulized 2.5 Mg/3 Ml INHALATION RT-Q6H PRN Shortness Of Breath Amlodipine Besylate 5 mg 12/17/20 09:00 12/23/20 08:23 Amlodipine 5 Mg Tab PO 5 mg DAILY LUIZA Administration Budesonide/Formoterol Fumarate 2 puff 12/16/20 20:00 12/23/20 20:49 Symbicort 80-4.5 Mcg Inhaler INHALATION 2 puff RT-BID LUIZA Administration Duloxetine HCl 60 mg 12/17/20 09:00 12/23/20 08:23 Duloxetine Hcl 60 Mg Capsule.Dr PO 60 mg DAILY LUIZA Administration Enoxaparin Sodium 40 mg 12/24/20 09:00 Enoxaparin 40 Mg/0.4 Ml Syringe SQ DAILY LUIZA Furosemide 40 mg 12/23/20 09:00 12/23/20 09:12 Furosemide 10 Mg/Ml 4 Ml Vial IV 40 mg Q12HR LUIZA Administration Gabapentin 400 mg 12/19/20 09:00 12/23/20 15:53 Gabapentin 400 Mg Cap PO 400 mg TID LUIZA Administration Guaifenesin/Codeine Phosphate 10 ml 12/23/20 16:00 12/23/20 15:53 Guaifenesin-Coden 100-10mg/5ml 10 Ml Cup PO 10 ml TID LUIZA Administration Hydralazine HCl 50 mg 12/17/20 07:30 12/23/20 17:21 Hydralazine Hcl 50 Mg Tab PO 50 mg AC-TID LUIZA Administration Daptomycin 300 mg/ Sodium 50 mls @ 100 mls/hr 12/19/20 09:00 12/23/20 08:24 Chloride IVPB 100 mls/hr Q24HR LUIZA Administration Protocol Insulin Aspart 0 unit 12/16/20 21:00 12/23/20 17:21 Insulin Aspart (Novolog) 100 Unit/Ml Vial SQ 3 unit ACHS [facility] Administration Protocol Insulin Aspart 20 unit 12/24/20 07:30 Insulin Aspart (Novolog) 100 Unit/Ml Vial SQ AC-TID [facility] Insulin Detemir 65 unit 12/23/20 21:00 Insulin Detemir (Levemir) 100 Unit/Ml Syr SQ HS [facility] Midodrine 2.5 mg 12/17/20 07:30 12/23/20 17:18 Midodrine 5 Mg Tab PO Not Given AC-TID LUIZA Nitroglycerin 0.4 mg 12/16/20 19:00 Nitroglycerin Sl Tabs 0.4 Mg Tab SUBLINGUAL Q5M PRN Chest Pain Ondansetron HCl 4 mg 12/16/20 19:00 12/22/20 21:40 Ondansetron 4 Mg Tab PO 4 mg TID PRN Administration Nausea Pantoprazole Sodium 40 mg 12/17/20 07:30 12/23/20 08:23 Pantoprazole 40 Mg Tablet PO 40 mg AC-BRKFST [facility] Administration Trazodone HCl 100 mg 12/16/20 21:00 12/22/20 21:33 Trazodone Hcl 100 Mg Tab PO 100 mg HS [facility] Administration Objective - Vital Signs Vital signs: Vital Signs Temp 98.6 F 12/23/20 15:00 Pulse 92 12/23/20 15:00 Resp 18 12/23/20 15:00 BP 127/63 12/23/20 15:00 Pulse Ox 94 L 12/23/20 15:00 Intake & Output 12/22/20 12/23/20 12/23/20 18:59 06:59 18:59 Intake Total 500 530 Output Total 925 650 Balance -425 -650 530 Weight 79.832 kg Intake: Intake, IV Titration 50 Amount DAPTOmycin 300 mg In 50 Sodium Chloride 0.9% 50 ml @ 100 mls/hr IVPB Q24HR [facility] Rx#:[id number] Oral 500 480 Output: Urine 925 650 Other: Voiding Method Toilet Toilet Toilet # Voids 1 - Exam GENERAL: The patient is alert and oriented x3, not in any acute distress. Well developed, well nourished. HEENT: Pupils are round and equally reacting to light. EOMI. No scleral icterus. No conjunctival pallor. Normocephalic, atraumatic. No pharyngeal erythema. No thyromegaly. CARDIOVASCULAR: S1 and S2 present. No murmurs, rubs, or gallops. PULMONARY: Chest is clear to auscultation, no wheezing or crackles. ABDOMEN: Soft, nontender, nondistended, normoactive bowel sounds. No palpable organomegaly. MUSCULOSKELETAL: No joint swelling or deformity. -EXTREMITIES: No cyanosis, clubbing, bilateral pitting leg edema. Mild superficial threadlike ulcer in the left leg and 2 large ulcers in the right knee and the right leg with no surrounding cellulitis, healing NEUROLOGICAL: Gross neurological examination did not reveal any focal deficits. SKIN: No rashes. no petechiae. - Labs CBC & Chem 7: 12/23/20 04:49 12/23/20 04:49 Labs: Abnormal Lab Results - Last 24 Hours (Table) 12/22/20 12/22/20 12/22/20 Range/Units 06:33 17:23 20:36 RBC (4.40-5.60) X 10*6/uL Hgb (13.0-17.0) g/dL Hct (39.6-50.0) % MCHC (32.0-37.0) g/dL Immature Gran # (0.00-0.04) X 10*3/uL Lymphocytes # (0.90-5.00) X 10*3/uL Sodium (135-145) mmol/L Potassium 6.0 H (3.5-5.5) mmol/L BUN 57.0 H (9.0-27.0) mg/dL Creatinine 2.5 H (0.6-1.5) mg/dL Est GFR (CKD-EPI)AfAm 33.7 L (60.0-200.0) Est GFR (CKD-EPI)NonAf 29.1 L (60.0-200.0) BUN/Creatinine Ratio 22.80 H (12.00-20.00) Ratio Glucose 230 H (70-110) mg/dL POC Glucose (mg/dL) 124 H 220 H (75-99) mg/dL Calcium 8.5 L (8.7-10.3) mg/dL 12/23/20 12/23/20 12/23/20 Range/Units 04:49 04:49 12:09 RBC 2.39 L (4.40-5.60) X 10*6/uL Hgb 7.1 L (13.0-17.0) g/dL Hct 22.4 L (39.6-50.0) % MCHC 31.7 L (32.0-37.0) g/dL Immature Gran # 0.16 H (0.00-0.04) X 10*3/uL Lymphocytes # 0.85 L (0.90-5.00) X 10*3/uL Sodium 134 L (135-145) mmol/L Potassium 6.0 H (3.5-5.5) mmol/L BUN 63.0 H (9.0-27.0) mg/dL Creatinine 2.7 H (0.6-1.5) mg/dL Est GFR (CKD-EPI)AfAm 30.7 L (60.0-200.0) Est GFR (CKD-EPI)NonAf 26.5 L (60.0-200.0) BUN/Creatinine Ratio 23.33 H (12.00-20.00) Ratio Glucose 197 H (70-110) mg/dL POC Glucose (mg/dL) 263 H (75-99) mg/dL Calcium 8.4 L (8.7-10.3) mg/dL Microbiology - Last 24 Hours (Table) 12/16/20 19:51 Blood Culture - Final Blood No Growth after 144 hours Assessment and Plan Assessment: Bilateral lower extremity superficial ulceration with infection secondary to MRSA and Streptococcus galactorrhea -Acute kidney injury, suspected secondary to IV vancomycin on the top of chronic kidney disease stage III. -Proteinuria and mild hematuria, rule out, nephritis. Negative Spotter team on the case -Chronic kidney disease stage III -Chronic diastolic CHF with EF 50-55% -Chronic leg wound, patient follow up with ID Dr. Milligan -Hyperlipidemia -2 diabetes mellitus -Diabetic peripheral neuropathy -COPD in current smoker -Nicotine dependence Plan: This is a pleasant 50 years old male who presents with leg infection on both sides secondary to MRSA and Streptococcus galactorrhea on daptomycin. ID team on the case and they recommended daptomycin for 10d an outpatient with close following. Bilateral pulmonary infiltrates, check COVID-19 PCR Negative Spotter team on the case for acute kidney injury and serology for GN is req uested PER Dr. Rodgers. Workup is negative so far. Kidney biopsy may be needed per nephrology team Labs and medication were reviewed.. Continue same treatment. Continue with symptomatic treatment. Resume home medication. Monitor lytes and vitals. DVT and GI prophylaxis. Further recommendationsas per clinical course of the patient DVT prophylaxis: Subcutaneous Lovenox GI Prophylaxis: PPI Prognosis is guarded
[2020-12-23] MEDS ORDERED: INSULIN DETEMIR (LEVEMIR) 100 UNIT/ML SYR SQ SCH (21:00)
[2020-12-24] MEDS: ACETAMINOPHEN TAB 325 MG TAB PO PRN (05:48)
[2020-12-24 07:32] LABS: Glucose,Whole Blood 65 mg/dL (75-99)
[2020-12-24 07:40] LABS: Glucose,Whole Blood 76 mg/dL (75-99)
[2020-12-24] MEDS ORDERED: ENOXAPARIN 40 MG/0.4 ML SYRINGE SQ SCH (09:00)
[2020-12-24] MEDS: amLODIPine 5 MG TAB PO SCH (09:15)
[2020-12-24] MEDS: hydrALAZINE HCL 50 MG TAB PO SCH ×3 (09:15→17:42)
[2020-12-24] MEDS: PANTOPRAZOLE 40 MG TABLET PO SCH (09:15)
[2020-12-24] MEDS: INSULIN ASPART (NovoLOG) 100 UNIT/ML VIAL SQ SCH ×7 (09:15→20:35)
[2020-12-24] MEDS: guaiFENesin-Coden 100-10MG/5ML 10 ML CUP PO SCH ×3 (09:15→21:08)
[2020-12-24] MEDS: GABAPENTIN 400 MG CAP PO SCH ×3 (09:15→21:08)
[2020-12-24] MEDS: FUROSEMIDE 10 MG/ML 4 ML VIAL IV SCH ×2 (09:16→20:34)
[2020-12-24] MEDS: DULoxetine HCL 60 MG CAPSULE.DR PO SCH (09:16)
[2020-12-24] MEDS: MIDODRINE 5 MG TAB PO SCH ×3 (09:17→17:43)
[2020-12-24] MEDS: SYMBICORT 80-4.5 MCG INHALER INHALATION SCH ×2 (11:29→20:53)
[2020-12-24 11:38] LABS: African American GFR (CKD) 26 (>60 ml/min/1.73 sqM); Anion Gap 4 mmol/L; Blood Urea Nitrogen 64 mg/dL (9-20); Calcium 8.8 mg/dL (8.4-10.2); Carbon Dioxide 28 mmol/L (22-30); Chloride 99 mmol/L (98-107); Glucose 116 mg/dL (74-99); Non-African American GFR(CKD) 22 (>60 ml/min/1.73 sqM); Sodium 131 mmol/L (137-145)
[2020-12-24 12:08] LABS: Glucose,Whole Blood 57 mg/dL (75-99)
[2020-12-24 12:15] LABS: Glucose,Whole Blood 51 mg/dL (75-99)
[2020-12-24 12:22] LABS: Potassium 6.3 mmol/L (3.5-5.1)
[2020-12-24 12:34] LABS: Glucose,Whole Blood 87 mg/dL (75-99)
[2020-12-24] MEDS ORDERED: DEXTROSE 50% SYRINGE 50 ML IVP STA (14:34)
[2020-12-24] MEDS ORDERED: INSULIN ASPART (NovoLOG) 100 UNIT/ML VIAL SQ ONE (14:34)
--- NOTE | 2020-12-24 14:39 | P.PN ---
Subjective From records: This is a very pleasant 50-year-old patient was chronic stable medical conditions include diabetes mellitus type 2, peripheral neuropathy, hyperlipidemia and a prior history of MRSA abscess and cellulitis.. Patient has chronic leg wounds which is followed up with Dr. Milligan for some time. Did used to follow with him at the wound care center. Of recently's note is that the wounds of become worse. This scattered on the legs. Couple of been draining. For a week. Has had some fever and chills. Has decided to come in. Painful Admitted with multiple superficial ulcer/abscess of lower extremity. Started on IV vancomycin. Swished total IV daptomycin. Acute kidney injury. IV fluids. Today: On IV daptomycin. Potassium again 6.1 this morning. Getting some supplemental drinks with potassium and the same. I did ask the nurse to discontinue. Put extremity edema Subjective: 12/22/2020 This is a pleasant 50 years old male who presents with bilateral lower extremity ulcers secondary to MRSA and Streptococcus agalactiae been covered currently with daptomycin, he will need 2 weeks of IV antibiotics upon discharge. Infe ctious disease team on the case. Also nephrology team following the case for acute kidney injury secondary to Vanco, with urinalysis showing protein and blood sample, nephrology of the case and serology for possible, and arthritis is ordered and is pending. Creatinine yesterday was elevated at 2.5 compared to baseline of 1.7. 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 We will check creatinine tomorrow. The patient hemodynamically stable. His sugar has been elevated and insulin dose was adjusted. His ejection fraction is 50-55%. Patient has been complaining of from chest pain since admission however cardiology cleared him. Patient's Chest pain as mild 1-2/10, felt like dull, and the middle radiated to the left side. Doppler of the lower extremity is negative for DVT and shortened right groin lymphadenopathy, mostly related to his infection Patient currently is covered with daptomycin as above. 12/23/2020 Patient is awake, does not look distress however he is coughing a lot with central chest pain with coughing and is bothering him although it is mild. Robitussin is provided and chest x-ray repeated showing bilateral mid and lower lung field infiltrates, suspicious for infection and the planned image sitting per radiologist's recommendation. covid PCR is requested. Oxygen is below 95 but above 90% since yesterday Other than that his creatinine trended up 2.5 to 2.7, potassium 6.0 from 6.1 yesterday. Serology workup is negative. Discussed the case with nephrology team, we will monitor patient creatinine tomorrow. Kidney biopsy to be considered if no improvement in renal function per nephrology team. Mucosa fluctuating 80-200, swelling is adjusted increasing level of 220 units with meals and oriented and Levemir to 65 units at bedtime. Patient remains on daptomycin for right leg ulcers and infection with MRSA and stripped agalactia. Continue with Lasix IV 40 mg twice daily. Prognosis is guarded for the patient 12/24/20 Patient still has mild dyspnea, still has bilateral leg swelling. His chest x- ray showed bilateral infiltrates suspicious for, but however, with PCR is negative. Patient with no worsening leukocytosis or fever, discussed with ID team most likely patient has pulmonary contusion secondary to his kidney disease. No other new complaint Patient is still on room air with oxygen saturation is 90-95%. Past creatinine went up to 3.1 from 2.7 yesterday, his potassium is slightly up to 6.3. Glucose was on the low side that probably because of his worsening renal function he will need less dose of insulin so we lowered his Levemir tonight to 40 units at bedtime and 15 units of NovoLog with meals. Other than that we will keep patient on IV daptomycin and IV Lasix with nephrology following the patient closely Nephrology team are considering kidney biopsy if no improvement and other workup is negative We'll keep monitoring and discussed with nephrology team Review of systems CONSTITUTIONAL: No fever, no malaise, no fatigue. HEENT: No recent visual problems or hearing problems. Denied any sore throat. CARDIOVASCULAR: No orthopnea, PND, no palpitations, no syncope. PULMONARY: No chest wall tenderness, no hemoptysis. GASTROINTESTINAL: No diarrhea, no nausea, no vomiting, no abdominal pain. Normoactive bowel sounds. NEUROLOGICAL: No headaches, no weakness, no numbness. Active Medications Generic Name Dose Route Start Last Admin Trade Name Freq PRN Reason Stop Dose Admin Acetaminophen 650 mg 12/16/20 19:00 12/24/20 05:48 Acetaminophen Tab 325 Mg Tab PO 650 mg Q4H PRN Administration Mild Pain or Fever > 100.5 Albuterol Sulfate 2.5 mg 04/14/21 19:00 Albuterol Nebulized 2.5 Mg/3 Ml INHALATION RT-Q6H PRN Shortness Of Breath Amlodipine Besylate 5 mg 12/17/20 09:00 12/24/20 09:15 Amlodipine 5 Mg Tab PO 5 mg DAILY LUIZA Administration Budesonide/Formoterol Fumarate 2 puff 12/16/20 20:00 12/24/20 11:29 Symbicort 80-4.5 Mcg Inhaler INHALATION 2 puff RT-BID LUIZA Administration Duloxetine HCl 60 mg 12/17/20 09:00 12/24/20 09:16 Duloxetine Hcl 60 Mg Capsule.Dr PO 60 mg DAILY LUIZA Administration Enoxaparin Sodium 40 mg 12/24/20 09:00 12/24/20 09:15 Enoxaparin 40 Mg/0.4 Ml Syringe SQ 40 mg DAILY LUIZA Administration Furosemide 40 mg 12/23/20 09:00 12/24/20 09:16 Furosemide 10 Mg/Ml 4 Ml Vial IV 40 mg Q12HR LUIZA Administration Gabapentin 400 mg 12/19/20 09:00 12/24/20 09:15 Gabapentin 400 Mg Cap PO 400 mg TID [facility] Administration Guaifenesin/Codeine Phosphate 10 ml 12/23/20 16:00 12/24/20 09:15 Guaifenesin-Coden 100-10mg/5ml 10 Ml Cup PO 10 ml TID LUIZA Administration Hydralazine HCl 50 mg 12/17/20 07:30 12/24/20 13:11 Hydralazine Hcl 50 Mg Tab PO 50 mg AC-TID LUIZA Administration Daptomycin 300 mg/ Sodium 50 mls @ 100 mls/hr 12/19/20 09:00 12/24/20 09:14 Chloride IVPB 100 mls/hr Q24HR [facility] Administration Protocol Insulin Aspart 0 unit 12/16/20 21:00 12/24/20 12:31 Insulin Aspart (Novolog) 100 Unit/Ml Vial SQ Not Given ACHS [facility] Protocol Insulin Aspart 15 unit 12/24/20 17:30 Insulin Aspart (Novolog) 100 Unit/Ml Vial SQ AC-TID [facility] Insulin Detemir 40 unit 12/24/20 21:00 Insulin Detemir (Levemir) 100 Unit/Ml Syr SQ HS [facility] Midodrine 2.5 mg 12/17/20 07:30 12/24/20 13:11 Midodrine 5 Mg Tab PO 2.5 mg AC-TID LUIZA Administration Nitroglycerin 0.4 mg 12/16/20 19:00 Nitroglycerin Sl Tabs 0.4 Mg Tab SUBLINGUAL Q5M PRN Chest Pain Ondansetron HCl 4 mg 12/16/20 19:00 12/22/20 21:40 Ondansetron 4 Mg Tab PO 4 mg TID PRN Administration Nausea Pantoprazole Sodium 40 mg 12/17/20 07:30 12/24/20 09:15 Pantoprazole 40 Mg Tablet PO 40 mg AC-[id number] LUIZA Administration Trazodone HCl 100 mg 12/16/20 21:00 12/23/20 20:56 Trazodone Hcl 100 Mg Tab PO 100 mg HS LUIZA Administration Objective - Vital Signs Vital signs: Vital Signs Temp 98.2 F 12/24/20 07:10 Pulse 80 12/24/20 07:10 Resp 16 12/24/20 07:10 BP 106/61 12/24/20 07:10 Pulse Ox 90 L 12/24/20 07:10 Intake & Output 12/23/20 12/24/20 12/24/20 18:59 06:59 18:59 Intake Total 770 250 360 Output Total 300 800 Balance 470 -550 360 Intake: Intake, IV Titration 50 Amount DAPTOmycin 300 mg In 50 Sodium Chloride 0.9% 50 ml @ 100 mls/hr IVPB Q24HR [facility] Rx#:[id number] Oral 720 250 360 Output: Urine 300 800 Other: Voiding Method Toilet Toilet Urinal - Exam GENERAL: The patient is alert and oriented x3, not in any acute distress. Well developed, well nourished. HEENT: Pupils are round and equally reacting to light. EOMI. No scleral icterus. No conjunctival pallor. Normocephalic, atraumatic. No pharyngeal erythema. No thyromegaly. CARDIOVASCULAR: S1 and S2 present. No murmurs, rubs, or gallops. PULMONARY: Chest is clear to auscultation, no wheezing or crackles. ABDOMEN: Soft, nontender, nondistended, normoactive bowel sounds. No palpable organomegaly. MUSCULOSKELETAL: No joint swelling or deformity. -EXTREMITIES: No cyanosis, clubbing, bilateral pitting leg edema. Mild superficial threadlike ulcer in the left leg and 2 large ulcers in the right knee and the right leg with no surrounding cellulitis, healing NEUROLOGICAL: Gross neurological examination did not reveal any focal deficits. SKIN: No rashes. no petechiae. - Labs CBC & Chem 7: 12/23/20 04:49 12/24/20 10:33 Labs: Abnormal Lab Results - Last 24 Hours (Table) 12/23/20 12/23/20 12/24/20 Range/Units 17:11 20:09 07:12 Sodium (137-145) mmol/L Potassium (3.5-5.1) mmol/L BUN (9-20) mg/dL Creatinine (0.66-1.25) mg/dL Glucose (74-99) mg/dL POC Glucose (mg/dL) 232 H 117 H 65 L (75-99) mg/dL 12/24/20 12/24/20 12/24/20 Range/Units 10:33 11:56 12:13 Sodium 131 L (137-145) mmol/L Potassium 6.3 H* (3.5-5.1) mmol/L BUN 64 H (9-20) mg/dL Creatinine 3.12 H (0.66-1.25) mg/dL Glucose 116 H (74-99) mg/dL POC Glucose (mg/dL) 57 L 51 L (75-99) mg/dL Assessment and Plan Assessment: Bilateral lower extremity superficial ulceration with infection secondary to MRSA and Streptococcus galactorrhea -Acute kidney injury, suspected secondary to IV vancomycin on the top of chronic kidney disease stage III. -Proteinuria and mild hematuria, rule out, nephritis. 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 Milligan -Hyperlipidemia -2 diabetes mellitus -Diabetic peripheral neuropathy -COPD in current smoker -Nicotine dependence Plan: This is a pleasant 50 years old male who presents with leg infection on both sides secondary to MRSA and Streptococcus galactorrhea on daptomycin. ID team on the case and they recommended daptomycin for 10d an outpatient with close following. Bilateral pulmonary infiltrates, check COVID-19 PCR Offender Employment Specialist team on the case for acute kidney injury and serology for GN is re quested PER Dr. Rodgers. Workup is negative so far. Kidney biopsy may be needed per nephrology team Labs and medication were reviewed.. Continue same treatment. Continue with symptomatic treatment. Resume home medication. Monitor lytes and vitals. DVT and GI prophylaxis. Further recommendationsas per clinical course of the patient DVT prophylaxis: Subcutaneous Lovenox GI Prophylaxis: PPI Prognosis is guarded
--- NOTE | 2020-12-24 15:30 | PN ---
PROGRESS NOTE DATE OF SERVICE: 12/24/2020 REASON FOR FOLLOWUP: Right lower extremity wound and cellulitis. INTERVAL HISTORY: Patient is currently afebrile. Patient is breathing comfortably. The patient denies having any chest pain or shortness of breath. Occasional cough which is dry. No abdominal pain. Still complaining of abdominal and lower extremity swelling and lower extremity wound is decreased in size. PHYSICAL EXAMINATION: Blood pressure 106/81, pulse of 80, temperature 98.2, he is 99% on room air. General description is a middle-aged male up in the bed in no distress. Respiratory system: Unlabored breathing, increased intensity of breath sounds, no wheeze. Heart S1, S2. Regular rate and rhythm. Abdomen is soft, no tenderness. Right lower extremity with multiple wounds that are drying out and surrounding . LABS: Creatinine slightly up to 3.1, 6.3. DIAGNOSTIC IMPRESSION AND PLAN: Patient with right lower extremity wound and secondary cellulitis. Culture has been positive for strep and MRSA. Patient had problems with vancomycin. Currently on daptomycin which will be continued to finish a 2 week course of therapy. Monitor clinical course closely. MMODL / IJN: [id number] /
[2020-12-24] MEDS ORDERED: SODIUM POLYSTYRENE SULFONATE 15 GM/60 ML BOTTLE PO STA (16:50)
[2020-12-24 17:16] LABS: Glucose,Whole Blood 310 mg/dL (75-99)
--- NOTE | 2020-12-24 18:07 | PN ---
PROGRESS NOTE Patient is seen for followup for acute kidney injury. Patient's renal function continues to worsen. He was admitted to the hospital with multiple abscesses in both his lower extremities. His UA does show evidence of blood and protein. All serologies are negative. There is no evidence of obstruction. He has also been hyperkalemic. Patient was initially maintained on IV fluids but developed volume overload and is currently off of IV fluids and maintained on Lasix. His creatinine has increased to 3.1 today from 2.7 yesterday. I have advised the patient that we will probably need to proceed with kidney biopsy, as his renal function continues to worsen. PHYSICAL EXAMINATION: On examination today, blood pressure was 106/61, heart rate 80 per minute. He is afebrile. EXAMINATION OF THE HEART: S1 and S2. EXAMINATION OF LUNGS: Decreased breath sounds at bases. ABDOMEN: Soft, non-tender. Examination of lower extremities shows bilateral extremities to be wrapped. Multiple abscesses noted in the right leg and a few on the left leg, too. CARE DIRECTOR RN exam is grossly intact. LABS: Sodium 131, potassium 6.3, BUN 64, serum creatinine 3.12, calcium 8.8. ASSESSMENT: 1. Acute kidney injury, possible underlying acute GN. Current serologies are negative. Patient will likely need a kidney biopsy, since his renal function continues to worsen. He should not be discharged at this point. 2. Hyperkalemia associated with worsening renal failure. Patient's blood sugars had been elevated. Currently they are much better controlled. He is maintained on IV Lasix. I will treat him with insulin and D50 and give him a dose of Kayexalate as well, although we do not like to use the Kayexalate on a regular basis due to risk of colonic necrosis. 3. Multiple abscesses, right leg, and on the left leg as well, maintained on antibiotics, being followed by ID, currently on daptomycin. 4. Hypertension, controlled. PLAN: Treat hyperkalemia with insulin and D50. Give one dose of Kayexalate. Arrange for kidney biopsy. Continue with antibiotics. Maintain low-potassium diet as well. MMODL / IJN: [id number] /
[2020-12-24 20:11] LABS: Glucose,Whole Blood 208 mg/dL (75-99)
[2020-12-24] MEDS: traZODone HCL 100 MG TAB PO SCH (20:34)
[2020-12-24] MEDS ORDERED: INSULIN DETEMIR (LEVEMIR) 100 UNIT/ML SYR SQ SCH ×2 (21:00)
[2020-12-25 06:52] LABS: Glucose,Whole Blood 84 mg/dL (75-99)
[2020-12-25 07:25] LABS: African American GFR (CKD) 26 (>60 ml/min/1.73 sqM); Anion Gap 6 mmol/L; Blood Urea Nitrogen 64 mg/dL (9-20); Calcium 8.1 mg/dL (8.4-10.2); Carbon Dioxide 30 mmol/L (22-30); Chloride 98 mmol/L (98-107); Glucose 85 mg/dL (74-99); Magnesium 2.1 mg/dL (1.6-2.3); Non-African American GFR(CKD) 23 (>60 ml/min/1.73 sqM); Potassium 5.1 mmol/L (3.5-5.1); Sodium 134 mmol/L (137-145)
[2020-12-25] MEDS: SYMBICORT 80-4.5 MCG INHALER INHALATION SCH ×2 (07:36→18:48)
[2020-12-25] MEDS: INSULIN ASPART (NovoLOG) 100 UNIT/ML VIAL SQ SCH ×7 (07:46→21:30)
[2020-12-25] MEDS: hydrALAZINE HCL 50 MG TAB PO SCH ×3 (07:53→17:21)
[2020-12-25] MEDS: MIDODRINE 5 MG TAB PO SCH ×3 (07:53→17:21)
[2020-12-25] MEDS: PANTOPRAZOLE 40 MG TABLET PO SCH (07:53)
[2020-12-25] MEDS: ENOXAPARIN 30 MG/0.3 ML SYRINGE SQ SCH (08:37)
[2020-12-25] MEDS: guaiFENesin-Coden 100-10MG/5ML 10 ML CUP PO SCH ×3 (08:37→21:30)
[2020-12-25] MEDS: DULoxetine HCL 60 MG CAPSULE.DR PO SCH (08:38)
[2020-12-25] MEDS: amLODIPine 5 MG TAB PO SCH (08:38)
[2020-12-25] MEDS: FUROSEMIDE 10 MG/ML 4 ML VIAL IV SCH ×2 (08:38→21:30)
[2020-12-25] MEDS: GABAPENTIN 400 MG CAP PO SCH ×3 (08:38→21:30)
[2020-12-25 11:30] LABS: Glucose,Whole Blood 65 mg/dL (75-99)
[2020-12-25 11:59] LABS: Glucose,Whole Blood 49 mg/dL (75-99)
[2020-12-25 12:01] LABS: Glucose,Whole Blood 53 mg/dL (75-99)
[2020-12-25 12:32] LABS: Glucose,Whole Blood >600 mg/dL (75-99)
[2020-12-25 12:34] LABS: Glucose,Whole Blood 75 mg/dL (75-99)
--- NOTE | 2020-12-25 14:37 | P.PN ---
Subjective From records: This is a very pleasant 50-year-old patient was chronic stable medical conditions include diabetes mellitus type 2, peripheral neuropathy, hyperlipidemia and a prior history of MRSA abscess and cellulitis.. Patient has chronic leg wounds which is followed up with Dr. Milligan for some time. Did used to follow with him at the wound care center. Of recently's note is that the wounds of become worse. This scattered on the legs. Couple of been draining. For a week. Has had some fever and chills. Has decided to come in. Painful Admitted with multiple superficial ulcer/abscess of lower extremity. Started on IV vancomycin. Swished total IV daptomycin. Acute kidney injury. IV fluids. Today: On IV daptomycin. Potassium again 6.1 this morning. Getting some supplemental drinks with potassium and the same. I did ask the nurse to discontinue. Put extremity edema Subjective: 12/22/2020 This is a pleasant 50 years old male who presents with bilateral lower extremity ulcers secondary to MRSA and Streptococcus agalactiae been covered currently with daptomycin, he will need 2 weeks of IV antibiotics upon discharge. Infe ctious disease team on the case. Also nephrology team following the case for acute kidney injury secondary to Vanco, with urinalysis showing protein and blood sample, nephrology of the case and serology for possible, and arthritis is ordered and is pending. Creatinine yesterday was elevated at 2.5 compared to baseline of 1.7. 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 We will check creatinine tomorrow. The patient hemodynamically stable. His sugar has been elevated and insulin dose was adjusted. His ejection fraction is 50-55%. Patient has been complaining of from chest pain since admission however cardiology cleared him. Patient's Chest pain as mild 1-2/10, felt like dull, and the middle radiated to the left side. Doppler of the lower extremity is negative for DVT and shortened right groin lymphadenopathy, mostly related to his infection Patient currently is covered with daptomycin as above. 12/23/2020 Patient is awake, does not look distress however he is coughing a lot with central chest pain with coughing and is bothering him although it is mild. Robitussin is provided and chest x-ray repeated showing bilateral mid and lower lung field infiltrates, suspicious for infection and the planned image sitting per radiologist's recommendation. covid PCR is requested. Oxygen is below 95 but above 90% since yesterday Other than that his creatinine trended up 2.5 to 2.7, potassium 6.0 from 6.1 yesterday. Serology workup is negative. Discussed the case with nephrology team, we will monitor patient creatinine tomorrow. Kidney biopsy to be considered if no improvement in renal function per nephrology team. Mucosa fluctuating 80-200, swelling is adjusted increasing level of 220 units with meals and oriented and Levemir to 65 units at bedtime. Patient remains on daptomycin for right leg ulcers and infection with MRSA and stripped agalactia. Continue with Lasix IV 40 mg twice daily. Prognosis is guarded for the patient 12/24/20 Patient still has mild dyspnea, still has bilateral leg swelling. His chest x- ray showed bilateral infiltrates suspicious for, but however, with PCR is negative. Patient with no worsening leukocytosis or fever, discussed with ID team most likely patient has pulmonary contusion secondary to his kidney disease. No other new complaint Patient is still on room air with oxygen saturation is 90-95%. Past creatinine went up to 3.1 from 2.7 yesterday, his potassium is slightly up to 6.3. Glucose was on the low side that probably because of his worsening renal function he will need less dose of insulin so we lowered his Levemir tonight to 40 units at bedtime and 15 units of NovoLog with meals. Other than that we will keep patient on IV daptomycin and IV Lasix with nephrology following the patient closely Nephrology team are considering kidney biopsy if no improvement and other workup is negative We'll keep monitoring and discussed with nephrology team 12/25/2020 Patient breathing significantly improved and he is staying on room air with oxygen saturation about 93%. Patient still has bilateral leg swelling with garrison wrap provided. Patient creatinine today around the same at 3.09, potassium came down to 5.1 after 1 dose of Kayexalate yesterday. His glucose still on the low side and his insulin dose lowered compared to home dose, Levemir was 62 units at home currently he is lowered to 20 units at bedtime and NovoLog was 14 units at home lowered currently to 10 units with meals, most likely secondary to his kidney disease. I discussed the case with Dr. Rodgers, he is most likely has glomerulonephritis and since his creatinine is still elevated he might need kidney biopsy. As per Dr. Rodgers we going to monitor the patient over the weekend and if no improvement then we will consider kidney biopsy early next week. In the meantime patient continued on Lasix 40 mg twice a day, change fluid restriction from 1000 daily up to 1500 daily up on patient request. Continue with daptomycin for his right leg ulcers and infection Objective - Vital Signs Vital signs: Vital Signs Temp 97.9 F 12/25/20 07:51 Pulse 88 12/25/20 07:51 Resp 16 12/25/20 07:51 BP 150/77 12/25/20 07:51 Pulse Ox 93 L 12/25/20 07:51 Intake & Output 12/24/20 12/25/20 12/25/20 18:59 06:59 18:59 Intake Total 600 480 Output Total 2138 738 3346 Balance -500 750 -971 Intake: Oral 600 480 Output: Urine 3407 335 0758 Other: Voiding Method Toilet Urinal # Voids 450 # Bowel Movements 0 - Exam GENERAL: The patient is alert and oriented x3, not in any acute distress. Well developed, well nourished. HEENT: Pupils are round and equally reacting to light. EOMI. No scleral icterus. No conjunctival pallor. Normocephalic, atraumatic. No pharyngeal erythema. No thyromegaly. CARDIOVASCULAR: S1 and S2 present. No murmurs, rubs, or gallops. PULMONARY: Chest is clear to auscultation, no wheezing or crackles. ABDOMEN: Soft, nontender, nondistended, normoactive bowel sounds. No palpable organomegaly. MUSCULOSKELETAL: No joint swelling or deformity. -EXTREMITIES: No cyanosis, clubbing, bilateral pitting leg edema. Mild superficial threadlike ulcer in the left leg and 2 large ulcers in the right knee and the right leg with no surrounding cellulitis, healing NEUROLOGICAL: Gross neurological examination did not reveal any focal deficits. SKIN: No rashes. no petechiae. - Labs CBC & Chem 7: 12/23/20 04:49 12/25/20 06:14 Labs: Abnormal Lab Results - Last 24 Hours (Table) 12/24/20 12/24/20 12/25/20 Range/Units 17:15 20:09 06:14 Sodium 134 L (137-145) mmol/L BUN 64 H (9-20) mg/dL Creatinine 3.09 H (0.66-1.25) mg/dL POC Glucose (mg/dL) 310 H 208 H (75-99) mg/dL Calcium 8.1 L (8.4-10.2) mg/dL 12/25/20 12/25/20 12/25/20 Range/Units 11:28 11:57 11:59 Sodium (137-145) mmol/L BUN (9-20) mg/dL Creatinine (0.66-1.25) mg/dL POC Glucose (mg/dL) 65 L 49 L 53 L (75-99) mg/dL Calcium (8.4-10.2) mg/dL 12/25/20 Range/Units 12:30 Sodium (137-145) mmol/L BUN (9-20) mg/dL Creatinine (0.66-1.25) mg/dL POC Glucose (mg/dL) >600 H (75-99) mg/dL Calcium (8.4-10.2) mg/dL Assessment and Plan Assessment: -Bilateral lower extremity superficial ulceration with infection secondary to MRSA and Streptococcus galactorrhea -Acute kidney injury, suspected secondary to IV vancomycin on the top of chronic kidney disease stage III. GLOMERULOnephritis of suspected -Proteinuria and mild hematuria, rule out, nephritis. Shipping Checker team on the case -Chronic kidney disease stage III -Chronic diastolic CHF with EF 50-55% -Chronic leg wound, patient follow up with ID Dr. Milligan -Hyperlipidemia -2 diabetes mellitus -Diabetic peripheral neuropathy -COPD in current smoker -Nicotine dependence Plan: This is a pleasant 50 years old male who presents with leg infection on both sides secondary to MRSA and Streptococcus galactorrhea on daptomycin. ID team on the case and they recommended daptomycin for 10d an outpatient with close following. Bilateral pulmonary infiltrates, secondary to fluid overload improved with Lasix and fluid restriction. Continue with Lasix 40 mg twice daily. Shipping Checker team on the case for acute kidney injury and serology for GN is requested PER Dr. Rodgers. Workup is negative so far. Kidney biopsy may be con sidered next week if no improvement in creatinine. Labs and medication were reviewed.. Continue same treatment. Continue with symptomatic treatment. Resume home medication. Monitor lytes and vitals. DVT and GI prophylaxis. Further recommendationsas per clinical course of the patient DVT prophylaxis: Subcutaneous Lovenox GI Prophylaxis: PPI Prognosis is guarded
[2020-12-25 17:08] LABS: Glucose,Whole Blood 467 mg/dL (75-99)
[2020-12-25 20:26] LABS: Glucose,Whole Blood 143 mg/dL (75-99)
--- NOTE | 2020-12-25 20:35 | PN ---
PROGRESS NOTE Patient is seen for followup for acute kidney injury. His renal function has been progressively worsening. Patient was admitted to the hospital with significant infection, cellulitis and abscesses on his right leg and a few on his left leg, too. He has been maintained on daptomycin. Serum creatinine has increased from 1.7 to 3.1 yesterday. There is no evidence of obstruction. Ultrasound is unremarkable. UA showed 2+ protein and small blood, because of which the serologies were sent out, which are all negative currently. Patient was initially hydrated; however, he developed volume overload and IV fluids were discontinued and he has been maintained on Lasix. There was consideration for kidney biopsy if his renal function continues to worsen. However, today it appears that his creatinine may have plateaued. PHYSICAL EXAMINATION: On examination today, blood pressure is 150/77, heart rate 88 per minute. He is afebrile. EXAMINATION OF THE HEART: S1 and S2. EXAMINATION OF LUNGS: Bilateral breath sounds are heard. ABDOMEN: Soft. Examination of lower extremities shows bilateral extremities to be wrapped. Abscess is noted on the upper part of the legs. These are improving. AGRICULTURE EXTENSION SPECIALIST exam grossly intact. LABS: Sodium 134, potassium 5.1, BUN 64, serum creatinine 3.09. ASSESSMENT: 1. Acute kidney injury, acute tubular necrosis versus possible acute interstitial nephritis. Urine eosinophiles came back positive. Patient is not maintained on any nephrotoxic medications. His serologies are negative and there is no obstruction. I will add prednisone for concern for possible acute interstitial nephritis. If the renal function continues to worsen, he will need a kidney biopsy, which can be performed as inpatient hopefully early next week. 2. Hypertension, partly volume-sensitive. 3. Abscesses, right lower extremity, with a couple in the left leg as well, maintained on daptomycin, currently improving. Wound culture grew MRSA. 4. Volume overload, maintained on IV Lasix. 5. Possible gastrointestinal bleed with drop in hemoglobin and persistent hyperkalemia. 6. Chronic kidney disease; baseline creatinine about 1.7 prior to admission. Etiology secondary to diabetic nephropathy, NKF stage IIIB. 7. Hyperkalemia associated with acute kidney injury, currently improved, maintained on loop diuretics, which I will continue. PLAN: Add trial of steroids for a short course for possible acute interstitial nephritis. If renal function does not improve over the weekend, patient should have a kidney biopsy performed. MMODL / IJN: [id number] /
[2020-12-25] MEDS: INSULIN DETEMIR (LEVEMIR) 100 UNIT/ML SYR SQ SCH (21:30)
[2020-12-25] MEDS: traZODone HCL 100 MG TAB PO SCH (21:30)
[2020-12-25] MEDS: ACETAMINOPHEN TAB 325 MG TAB PO PRN (21:43)
[2020-12-25] MEDS: ONDANSETRON 4 MG TAB PO PRN (23:38)
--- NOTE | 2020-12-26 07:08 | PN ---
PROGRESS NOTE DATE OF SERVICE: 12/25/2020 REASON FOR FOLLOWUP: Right lower extremity MRSA infection with multiple wounds. INTERVAL HISTORY: The patient is currently afebrile, has been breathing comfortably. Denies having any chest pain or any worsening shortness of breath. He did have a cough with clear sputum. No abdominal pain. No diarrhea. PHYSICAL EXAMINATION: Blood pressure is 130/78 with a pulse of 95, temperature 98. He is 91% on room air. GENERAL DESCRIPTION: A middle-aged male up in the bed in no distress. RESPIRATORY SYSTEM: Unlabored breathing, decreased intensity of breath sounds, no wheeze. HEART: S1, S2. Regular rate and rhythm. ABDOMEN: Soft, no tenderness. LABS: Creatinine up to 3.09. DIAGNOSTIC IMPRESSION AND PLAN: Patient with multiple right lower extremity skin abscesses and cellulitis. The patient culture with strep agalactiae and MRSA. Patient is covered with daptomycin, to continue while monitoring clinical course closely. Continue supportive care. MMODL / IJN: [id number] /
[2020-12-26] MEDS: INSULIN ASPART (NovoLOG) 100 UNIT/ML VIAL SQ SCH ×7 (07:21→21:24)
[2020-12-26 07:23] LABS: African American GFR (CKD) 28 (>60 ml/min/1.73 sqM); Anion Gap 5 mmol/L; Blood Urea Nitrogen 69 mg/dL (9-20); Calcium 8.3 mg/dL (8.4-10.2); Carbon Dioxide 31 mmol/L (22-30); Chloride 101 mmol/L (98-107); Glucose 91 mg/dL (74-99); Magnesium 2.2 mg/dL (1.6-2.3); Non-African American GFR(CKD) 24 (>60 ml/min/1.73 sqM); Potassium 5.2 mmol/L (3.5-5.1); Sodium 137 mmol/L (137-145)
[2020-12-26 07:35] LABS: Glucose,Whole Blood 95 mg/dL (75-99)
[2020-12-26] MEDS: SYMBICORT 80-4.5 MCG INHALER INHALATION SCH ×2 (07:45→20:18)
[2020-12-26] MEDS: predniSONE 20 MG TAB PO SCH (07:58)
[2020-12-26] MEDS: guaiFENesin-Coden 100-10MG/5ML 10 ML CUP PO SCH ×3 (07:58→21:26)
[2020-12-26] MEDS: ENOXAPARIN 30 MG/0.3 ML SYRINGE SQ SCH (07:59)
[2020-12-26] MEDS: PANTOPRAZOLE 40 MG TABLET PO SCH (07:59)
[2020-12-26] MEDS: hydrALAZINE HCL 50 MG TAB PO SCH ×3 (07:59→17:29)
[2020-12-26] MEDS: amLODIPine 5 MG TAB PO SCH (07:59)
[2020-12-26] MEDS: GABAPENTIN 400 MG CAP PO SCH ×3 (07:59→21:25)
[2020-12-26] MEDS: DULoxetine HCL 60 MG CAPSULE.DR PO SCH (07:59)
[2020-12-26] MEDS: FUROSEMIDE 10 MG/ML 4 ML VIAL IV SCH (08:00)
[2020-12-26] MEDS: MIDODRINE 5 MG TAB PO SCH ×3 (08:01→17:31)
[2020-12-26] MEDS: ACETAMINOPHEN TAB 325 MG TAB PO PRN ×2 (08:06→21:25)
[2020-12-26 08:19] LABS: C Reactive Protein 1.9 mg/dL (<1.0)
[2020-12-26 11:05] LABS: Basophils # (A) 0.04 X 10*3/uL (0.00-0.10); Eosinophils # (A) 0.13 X 10*3/uL (0.04-0.35); Eosinophils % (A) 3.1 %; Lymphocytes # (A) 0.81 X 10*3/uL (0.90-5.00); Lymphocytes % (A) 19.3 %; Monocytes # (A) 0.44 X 10*3/uL (0.20-1.00); Monocytes % (A) 10.5 %; Neutrophils # (A) 2.69 X 10*3/uL (1.80-7.70); Neutrophils % (A) 64.2 %
[2020-12-26 11:06] LABS: HCT 21.2 % (39.6-50.0); HGB 6.6 g/dL (13.0-17.0); Hypochromasia (M) 2+; MCHC 31.1 g/dL (32.0-37.0); MCV 96.4 fL (80.0-97.0); Mean Platelet Volume 10.5 fL (9.5-12.2); Platelet Count 217 X 10*3/uL (140-440); RDW 12.2 % (11.5-14.5); WBC 4.19 X 10*3/uL (4.50-10.00)
[2020-12-26 11:39] LABS: Glucose,Whole Blood 209 mg/dL (75-99)
[2020-12-26] MEDS: ONDANSETRON 4 MG TAB PO PRN (12:31)
--- NOTE | 2020-12-26 12:48 | P.PN ---
Subjective Progress Note Date: 12/26/20 Principal diagnosis: This is a 50-year-old male with acute kidney injury, related to sepsis,. He was started on prednisone yesterday because of concern from acute interstitial nep hritis. He had 2+ proteinuria and eosinophiurea. He was hydrated but when intoxicated congestive heart failure and is currently on Lasix. His urine output is picked up and he is creatinine has come down. He complains of abdominal pain this morning that has resolved now almost completely it was both flanks and middle of the abdomen. There is no nausea vomiting appetite is fair he has not had any bowel movement for 2 days though he does not feel constipated. This morning he did have some nausea but has been relieved after taking medications No chest pain but does have cough. Objective - Vital Signs Vital signs: Vital Signs Temp 97.2 F L 12/26/20 07:30 Pulse 86 12/26/20 08:00 Resp 16 12/26/20 08:00 BP 99/58 12/26/20 07:30 Pulse Ox 91 L 12/26/20 07:30 Intake & Output 12/25/20 12/26/20 12/26/20 18:59 06:59 18:59 Intake Total 1040 222 222 Output Total 1771 1025 400 Balance -731 -803 -178 Intake: Oral 1040 222 222 Output: Urine 1771 1025 400 Other: Voiding Method Toilet Toilet Toilet Urinal Urinal Urinal # Voids 1 1 1 # Bowel Movements 0 HEENT exam no JVP neck is supple no facial asymmetry Lungs are clear to auscultation good air entry bilaterally Heart sounds are unremarkable for any murmur rub gallop Abdomen soft nontender Extremity exam was trace edema with multiple areas of scabs but no obvious cellulitis. Neurologically awake alert oriented - Labs CBC & Chem 7: 12/26/20 06:34 12/26/20 06:34 Labs: Abnormal Lab Results - Last 24 Hours (Table) 12/25/20 12/25/20 12/26/20 Range/Units 17:07 20:24 06:34 WBC (4.50-10.00) X 10*3/uL RBC (4.40-5.60) X 10*6/uL Hgb (13.0-17.0) g/dL Hct (39.6-50.0) % MCHC (32.0-37.0) g/dL Immature Gran # (0.00-0.04) X 10*3/uL Lymphocytes # (0.90-5.00) X 10*3/uL Potassium 5.2 H (3.5-5.1) mmol/L Carbon Dioxide 31 H (22-30) mmol/L BUN 69 H (9-20) mg/dL Creatinine 2.90 H (0.66-1.25) mg/dL POC Glucose (mg/dL) 467 H 143 H (75-99) mg/dL Calcium 8.3 L (8.4-10.2) mg/dL C-Reactive Protein 1.9 H (<1.0) mg/dL 12/26/20 12/26/20 Range/Units 06:34 11:37 WBC 4.19 L (4.50-10.00) X 10*3/uL RBC 2.20 L (4.40-5.60) X 10*6/uL Hgb 6.6 L* (13.0-17.0) g/dL Hct 21.2 L (39.6-50.0) % MCHC 31.1 L (32.0-37.0) g/dL Immature Gran # 0.08 H (0.00-0.04) X 10*3/uL Lymphocytes # 0.81 L (0.90-5.00) X 10*3/uL Potassium (3.5-5.1) mmol/L Carbon Dioxide (22-30) mmol/L BUN (9-20) mg/dL Creatinine (0.66-1.25) mg/dL POC Glucose (mg/dL) 209 H (75-99) mg/dL Calcium (8.4-10.2) mg/dL C-Reactive Protein (<1.0) mg/dL Assessment and Plan Assessment: Impression 1. Acute kidney injury secondary to possible acute interstitial nephritis started on prednisone. Creatinine improving 2. Admitted with cellulitis of legs 3. Congestive heart failure after IV fluids improving on Lasix 4. Hyperkalemia secondary acute kidney injury improved, possible GI bleed 5. 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 6. Anemia hemoglobin down from 10 on 414-6.6 as of this morning but no obvious bleeding 7. Abdominal pain today, resolved Recommendation 1. Continue Lasix and prednisone. 2. Follow-up regarding possible GI bleed, deferred to the primary 3. Monitor renal function for another 24 hours he could be discharged if stable from nephrological perspective once his creatinine continues to show downward trend on prednisone for 2 weeks and then will taper him off
[2020-12-26 16:42] LABS: Glucose,Whole Blood 398 mg/dL (75-99)
--- NOTE | 2020-12-26 19:30 | PN ---
PROGRESS NOTE DATE OF SERVICE: 12/26/2020 REASON FOR FOLLOWUP: Right lower extremity MRSA infection with cellulitis. INTERIM HISTORY: Patient is currently afebrile. Patient is breathing comfortably. Has been complaining of cough with occasional sputum production. No chest pain. No abdominal pain. Overall, right lower extremity ( ) have decreased in intensity. PHYSICAL EXAMINATION: Blood pressure 132/65, pulse of 89, temperature 97. He is 91% on room air. General description is a middle-aged male lying in bed in no distress. Respiratory system: Unlabored breathing, decreased breath sounds. Heart S1, S2. Regular rate and rhythm. Abdomen soft. No tenderness. Right leg: Multiple skin areas of cellulitis and infection which has decreased in intensity. LABS: BUN of 69, creatinine is 2.90. DIAGNOSTIC IMPRESSION AND PLAN: Patient with multiple skin lesions in the right lower extremity. Culture positive for MRSA and Streptococcus. The patient is currently covered with daptomycin because of problems with vancomycin. Continue current treatment and monitor clinical course closely. MMODL / IJN: [id number] /
[2020-12-26 20:10] LABS: Glucose,Whole Blood 480 mg/dL (75-99)
[2020-12-26] MEDS: INSULIN DETEMIR (LEVEMIR) 100 UNIT/ML SYR SQ SCH (21:24)
[2020-12-26] MEDS: traZODone HCL 100 MG TAB PO SCH (21:25)
[2020-12-27 02:41] LABS: Glucose,Whole Blood 437 mg/dL (75-99)
[2020-12-27 06:13] LABS: Basophils % (A) 0 %; Eosinophils % (A) 0 %; HCT 26.3 % (39.0-53.0); HGB 8.7 gm/dL (13.0-17.5); Lymphocytes # (A) 0.8 k/uL (1.0-4.8); Lymphocytes % (A) 9 %; MCH 31.3 pg (25.0-35.0); MCHC 33.2 g/dL (31.0-37.0); Mean Platelet Volume 7.5; Monocytes # (A) 0.6 k/uL (0-1.0); Monocytes % (A) 7 %; Neutrophils # (A) 7.1 k/uL (1.3-7.7); Neutrophils % (A) 82 %; Platelet Count 242 k/uL (150-450); RBC 2.79 m/uL (4.30-5.90); RDW 12.9 % (11.5-15.5); WBC 8.6 k/uL (3.8-10.6)
[2020-12-27 06:22] LABS: African American GFR (CKD) 24 (>60 ml/min/1.73 sqM); Anion Gap 9 mmol/L; Blood Urea Nitrogen 78 mg/dL (9-20); Calcium 8.5 mg/dL (8.4-10.2); Carbon Dioxide 28 mmol/L (22-30); Chloride 95 mmol/L (98-107); Glucose 362 mg/dL (74-99); Non-African American GFR(CKD) 21 (>60 ml/min/1.73 sqM); Potassium 5.4 mmol/L (3.5-5.1); Sodium 132 mmol/L (137-145)
[2020-12-27 06:23] LABS: MCV 94.4 fL (80.0-100.0)
[2020-12-27 07:13] LABS: Glucose,Whole Blood 374 mg/dL (75-99)
[2020-12-27] MEDS: ENOXAPARIN 30 MG/0.3 ML SYRINGE SQ SCH (07:42)
[2020-12-27] MEDS: GABAPENTIN 400 MG CAP PO SCH ×3 (07:43→21:27)
[2020-12-27] MEDS: INSULIN ASPART (NovoLOG) 100 UNIT/ML VIAL SQ SCH ×7 (07:43→21:27)
[2020-12-27] MEDS: FUROSEMIDE 10 MG/ML 4 ML VIAL IV SCH (07:43)
[2020-12-27] MEDS: DULoxetine HCL 60 MG CAPSULE.DR PO SCH (07:43)
[2020-12-27] MEDS: PANTOPRAZOLE 40 MG TABLET PO SCH (07:44)
[2020-12-27] MEDS: hydrALAZINE HCL 50 MG TAB PO SCH ×3 (07:44→17:03)
[2020-12-27] MEDS: predniSONE 20 MG TAB PO SCH (07:44)
[2020-12-27] MEDS: MIDODRINE 5 MG TAB PO SCH ×4 (07:44→17:04)
[2020-12-27] MEDS: amLODIPine 5 MG TAB PO SCH (07:44)
[2020-12-27] MEDS: guaiFENesin-Coden 100-10MG/5ML 10 ML CUP PO SCH ×4 (07:44→21:37)
[2020-12-27] MEDS: SYMBICORT 80-4.5 MCG INHALER INHALATION SCH ×2 (08:27→20:40)
[2020-12-27 11:37] LABS: Glucose,Whole Blood 130 mg/dL (75-99)
--- NOTE | 2020-12-27 12:54 | P.PN ---
Subjective Progress Note Date: 12/27/20 Principal diagnosis: This is a 50-year-old male with acute kidney injury, related to sepsis,. He was started on prednisone yesterday because of concern from acute interstitial nep hritis. He had 2+ proteinuria and eosinophiurea. He was hydrated but then had congestive heart failure and is currently on Lasix. His urine output is picked up and he is creatinine had come down. His creatinine starts to go up again. His edema is better. He denies any chest pain shortness of breath dizziness no fever chills cough gets some abdominal pain yesterday that has resolved. Denies any problem with his urine. He has a good appetite. He remains on pantoprazole Objective - Vital Signs Vital signs: Vital Signs Temp 98.2 F 12/27/20 10:40 Pulse 88 12/27/20 10:40 Resp 16 12/27/20 10:40 BP 134/75 12/27/20 10:40 Pulse Ox 93 L 12/27/20 10:40 Intake & Output 12/26/20 12/27/20 12/27/20 18:59 06:59 18:59 Intake Total 1422 870 560 Output Total 550 650 300 Balance 872 220 260 Intake: Oral 1422 560 560 Blood Product 310 Rc As-1 Unit 310 [id number] Output: Urine 550 650 300 Other: Voiding Method Toilet Toilet Toilet Urinal Urinal Urinal # Voids 1 1 HEENT exam no JVP neck is supple no facial asymmetry Lungs are clear to auscultation good air entry bilaterally Heart sounds are unremarkable for any murmur rub gallop Abdomen soft nontender Extremity exam mild edema with multiple areas of scabs but no obvious c ellulitis. Neurologically awake alert oriented - Labs CBC & Chem 7: 12/27/20 05:44 12/27/20 05:44 Labs: Abnormal Lab Results - Last 24 Hours (Table) 12/26/20 12/26/20 12/26/20 Range/Units 16:41 18:45 20:08 RBC (4.30-5.90) m/uL Hgb (13.0-17.5) gm/dL Hct (39.0-53.0) % Lymphocytes # (1.0-4.8) k/uL Sodium (137-145) mmol/L Potassium (3.5-5.1) mmol/L Chloride (98-107) mmol/L BUN (9-20) mg/dL Creatinine (0.66-1.25) mg/dL Glucose (74-99) mg/dL POC Glucose (mg/dL) 398 H 480 H (75-99) mg/dL Crossmatch See Detail 12/27/20 12/27/20 12/27/20 Range/Units 02:39 05:44 05:44 RBC 2.79 L (4.30-5.90) m/uL Hgb 8.7 L (13.0-17.5) gm/dL Hct 26.3 L (39.0-53.0) % Lymphocytes # 0.8 L (1.0-4.8) k/uL Sodium 132 L (137-145) mmol/L Potassium 5.4 H (3.5-5.1) mmol/L Chloride 95 L (98-107) mmol/L BUN 78 H (9-20) mg/dL Creatinine 3.29 H (0.66-1.25) mg/dL Glucose 362 H (74-99) mg/dL POC Glucose (mg/dL) 437 H (75-99) mg/dL Crossmatch 12/27/20 12/27/20 Range/Units 07:12 11:33 RBC (4.30-5.90) m/uL Hgb (13.0-17.5) gm/dL Hct (39.0-53.0) % Lymphocytes # (1.0-4.8) k/uL Sodium (137-145) mmol/L Potassium (3.5-5.1) mmol/L Chloride (98-107) mmol/L BUN (9-20) mg/dL Creatinine (0.66-1.25) mg/dL Glucose (74-99) mg/dL POC Glucose (mg/dL) 374 H 130 H (75-99) mg/dL Crossmatch Assessment and Plan Assessment: Impression 1. Acute kidney injury secondary to possible acute interstitial nephritis started on prednisone 40 mg daily dated 12/22/20132020. Creatinine slightly worse at 3.29. Post 3.12 at [facility], his baseline is 1.5 as of 10/11/2020 2. Admitted with cellulitis of legs, improved 3. Congestive heart failure after IV fluids improving on Lasix 4. Hyperkalemia secondary acute kidney injury improved, possible GI bleed 5. 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 6. Anemia hemoglobin down from to 10 on 12/17/2019 126.6 on 12/26/2020, and is up to 8.7 7. Abdominal pain today, resolved Recommendation 1. Continue Lasix and prednisone. 2. Follow-up regarding possible GI bleed, deferred to the primary 3. Monitor renal function for another 24 hours he could be discharged if stable from nephrological perspective once his creatinine continues to show downward trend on prednisone for 2 weeks and then will taper him off
[2020-12-27] MEDS: ACETAMINOPHEN TAB 325 MG TAB PO PRN ×2 (14:25→21:36)
--- NOTE | 2020-12-27 16:32 | PN ---
PROGRESS NOTE DATE OF SERVICE: 12/27/2020 REASON FOR FOLLOWUP: Right lower extremity multiple abscess secondary to MRSA. INTERVAL HISTORY: The patient is currently afebrile. Patient is breathing comfortably. Denies having any chest pain or shortness of breath. No cough. No abdominal pain. Overall lesions in the right lower extremity are crusting out. PHYSICAL EXAMINATION: Blood pressure 134/75, pulse of 88, temperature 98.2. He is 93% on room air. General description: The patient is a middle-aged male lying in bed in no distress. Respiratory system: Unlabored breathing, clear to auscultation anteriorly. Heart S1, S2. Regular rate and rhythm. Abdomen soft, no tenderness. Right lower extremity with multiple crusting lesions. No new redness has improved. LABS: Hemoglobin 8.7, white count 8.3, BUN of 78, creatinine 2.29. DIAGNOSTIC IMPRESSION AND PLAN: Patient with right lower extremity multiple abscess and cellulitis with MRSA and Streptococcus pyogenes. Patient on daptomycin because of his kidney functions. Continue while monitoring clinical course closely. Continue supportive care. MMODL / IJN: [id number] /
[2020-12-27 16:48] LABS: Glucose,Whole Blood 362 mg/dL (75-99)
--- NOTE | 2020-12-27 16:56 | P.PN ---
Subjective Progress Note Date: 12/26/20 Principal diagnosis: Bilateral lower extremity cellulitis with MRSA, [place] I Mr. Squires is a 50-year-old male with a past medical history of type 2 diabetes mellitus, peripheral neuropathy, hyperlipidemia, prior history of MRSA coming in with worsening of his lower extremity wounds. Patient had scattered wounds that has been draining for the past few days. So the patient was started on IV vancomycin and admitted. Eventually he was changed to IV daptomycin. Patient's wound culture grew MRSA and Streptococcus pyogenes. Patient's creatinine was also elevated and did not respond to IV fluid challenge and so nephrology has been consulted was following the patient. He also had Doppler of his lower extremity that is negative for DVT. On 12/26/2020 - patient is seen and examined at the bedside. He states that he is wounds have been having less drainage and his lower extremity swelling is slowly improving. Patient states that he is thirsty but cannot drink a lot of F ortaz he is on 1800 mL of fluid restriction daily. Patient denies having any chest pain or palpitations. No cough or difficulty in breathing. No abdominal pain nausea vomiting or diarrhea. No dysuria or hematuria. On reviewing his vitals temperature 98.2, heart rate 90, respiratory rate 16, he is saturating at 95% on room air. On reviewing the labs white count of 14.9, hemoglobin of 6.6, platelets 217. Sodium 137, ratio 5.2, chloride 101, bicarb 31, PA and 69, creatinine 2.90. Patient's medications have been reviewed Objective - Vital Signs Vital signs: Vital Signs Temp 97.2 F L 12/26/20 07:30 Pulse 86 12/26/20 08:00 Resp 16 12/26/20 08:00 BP 99/58 12/26/20 07:30 Pulse Ox 91 L 12/26/20 07:30 Intake & Output 12/25/20 12/26/20 12/26/20 18:59 06:59 18:59 Intake Total 1040 222 222 Output Total 1771 1025 400 Balance -731 -803 -178 Intake: Oral 1040 222 222 Output: Urine 1771 1025 400 Other: Voiding Method Toilet Toilet Toilet Urinal Urinal Urinal # Voids 1 1 1 # Bowel Movements 0 - Exam GENERAL: The patient is alert and oriented x3, not in any acute distress. Well developed, well nourished. HEENT: Pupils are round and equally reacting to light. EOMI. No scleral icterus. No conjunctival pallor. CARDIOVASCULAR: S1 and S2 present. No murmurs, rubs, or gallops. PULMONARY: Chest is clear to auscultation, no wheezing or crackles. ABDOMEN: Soft, nontender, nondistended, normoactive bowel sounds. No palpable organomegaly. MUSCULOSKELETAL: No joint swelling or deformity. -EXTREMITIES: No cyanosis, clubbing, mild bilateral pitting leg edema. Mild superficial threadlike ulcer in the left leg and 2 large ulcers in the right knee and the right leg with no surrounding cellulitis, healing NEUROLOGICAL: Gross neurological examination did not reveal any focal deficits. SKIN: No rashes. no petechiae. - Labs CBC & Chem 7: 12/27/20 05:44 12/27/20 05:44 Labs: Abnormal Lab Results - Last 24 Hours (Table) 12/25/20 12/25/20 12/26/20 Range/Units 17:07 20:24 06:34 WBC (4.50-10.00) X 10*3/uL RBC (4.40-5.60) X 10*6/uL Hgb (13.0-17.0) g/dL Hct (39.6-50.0) % MCHC (32.0-37.0) g/dL Immature Gran # (0.00-0.04) X 10*3/uL Lymphocytes # (0.90-5.00) X 10*3/uL Potassium 5.2 H (3.5-5.1) mmol/L Carbon Dioxide 31 H (22-30) mmol/L BUN 69 H (9-20) mg/dL Creatinine 2.90 H (0.66-1.25) mg/dL POC Glucose (mg/dL) 467 H 143 H (75-99) mg/dL Calcium 8.3 L (8.4-10.2) mg/dL C-Reactive Protein 1.9 H (<1.0) mg/dL Procalcitonin (0.02-0.09) ng/mL 12/26/20 12/26/20 12/26/20 Range/Units 06:34 06:34 11:37 WBC 4.19 L (4.50-10.00) X 10*3/uL RBC 2.20 L (4.40-5.60) X 10*6/uL Hgb 6.6 L* (13.0-17.0) g/dL Hct 21.2 L (39.6-50.0) % MCHC 31.1 L (32.0-37.0) g/dL Immature Gran # 0.08 H (0.00-0.04) X 10*3/uL Lymphocytes # 0.81 L (0.90-5.00) X 10*3/uL Potassium (3.5-5.1) mmol/L Carbon Dioxide (22-30) mmol/L BUN (9-20) mg/dL Creatinine (0.66-1.25) mg/dL POC Glucose (mg/dL) 209 H (75-99) mg/dL Calcium (8.4-10.2) mg/dL C-Reactive Protein (<1.0) mg/dL Procalcitonin 0.14 H (0.02-0.09) ng/mL Assessment and Plan Assessment: ASSESSMENT -Bilateral lower extremity superficial ulceration with infection secondary to MRSA and Streptococcus galactorrhea -Acute kidney injury, possibly acute interstitial nephritis currently on prednisone -Proteinuria and mild hematuria, rule out, nephritis. Public Finance Specialist team on the case -Chronic kidney disease stage III -Chronic diastolic CHF with EF 50-55% -Chronic leg wound, patient follow up with ID Dr. Milligan -Hyperlipidemia -2 diabetes mellitus -Diabetic peripheral neuropathy -COPD in current smoker -Nicotine dependence PLAN: Patient is currently being treated for bilateral lower extremity wounds with daptomycin. Patient's pulmonary infiltrates improved with Lasix and fluid restriction. His dose of Lasix is 40 mg twice a day, changed to 40 mg on Monday today. Nephrology on board and following for acute kidney injury. Patient's hemoglobin low at 6.6 this morning. His hemoglobin was 7.1 on 12/23 and his base kine is 9-10. Patient denied having any bloody bowel movements or epigastric pain or vomiting. We will transfuse with 1 unit of PRBCs and check CBC again, might consider GI consult. Continue with the current medication regimen for now. The treatment plan was discussed in detail with the patient at bedside. Further recommendations to follow depending on the progress of the patient.
--- NOTE | 2020-12-27 17:00 | P.PN ---
Subjective Progress Note Date: 12/27/20 Principal diagnosis: Bilateral lower extremity cellulitis with MRSA, [place] I Mr. Squires is a 50-year-old male with a past medical history of type 2 diabetes mellitus, peripheral neuropathy, hyperlipidemia, prior history of MRSA coming in with worsening of his lower extremity wounds. Patient had scattered wounds that has been draining for the past few days. So the patient was started on IV vancomycin and admitted. Eventually he was changed to IV daptomycin. Patient's wound culture grew MRSA and Streptococcus pyogenes. Patient's creatinine was also elevated and did not respond to IV fluid challenge and so nephrology has been consulted was following the patient. He also had Doppler of his lower extremity that is negative for DVT. On 12/26/2020 - patient is seen and examined at the bedside. He states that he is wounds have been having less drainage and his lower extremity swelling is slowly improving. Patient states that he is thirsty but cannot drink a lot of F ortaz he is on 1800 mL of fluid restriction daily. Patient denies having any chest pain or palpitations. No cough or difficulty in breathing. No abdominal pain nausea vomiting or diarrhea. No dysuria or hematuria. On reviewing his vitals temperature 98.2, heart rate 90, respiratory rate 16, he is saturating at 95% on room air. On reviewing the labs white count of 14.9, hemoglobin of 6.6, platelets 217. Sodium 137, ratio 5.2, chloride 101, bicarb 31, PA and 69, creatinine 2.90. On 12/27/2020 - patient was seen and examined at the bedside. He is complaining of increased thirst and is requesting for more fluid intake. Patient denies having any chest pain or palpitations. His lower extremity wounds are healing well. Patient denies having any nausea vomiting or abdominal pain. No blood in his stools. Patient did receive 1 unit of PRBC yesterday and his hemoglobin this morning is 8.7. On reviewing the vitals temperature of 98.2, heart rate 93, respiratory rate 16, blood pressure 135/72, saturating 90% on room air. Reviewing the labs sodium 135, potassium 4.4, chloride 90, bicarbonate 20, B and 78, creatinine 3.29. His hemoglobin is 8.7, platelets 242 and white count of 8 .3. Active Medications Acetaminophen (Acetaminophen Tab 325 Mg Tab) 650 mg PO Q4H PRN PRN Reason: Mild Pain or Fever > 100.5 Last Admin: 12/27/20 14:25 Dose: 650 mg Documented by: Albuterol Sulfate (Albuterol Nebulized 2.5 Mg/3 Ml) 2.5 mg INHALATION RT-Q6H PRN PRN Reason: Shortness Of Breath Amlodipine Besylate (Amlodipine 5 Mg Tab) 5 mg PO DAILY [facility] Last Admin: 12/27/20 07:44 Dose: 5 mg Documented by: Budesonide/Formoterol Fumarate (Symbicort 80-4.5 Mcg Inhaler) 2 puff INHALATION RT-BID [facility] Last Admin: 12/27/20 08:27 Dose: 2 puff Documented by: Duloxetine HCl (Duloxetine Hcl 60 Mg Capsule.Dr) 60 mg PO DAILY [facility] Last Admin: 12/27/20 07:43 Dose: 60 mg Documented by: Enoxaparin Sodium (Enoxaparin 30 Mg/0.3 Ml Syringe) 30 mg SQ DAILY [facility] Last Admin: 12/27/20 07:42 Dose: 30 mg Documented by: Famotidine (Famotidine 20 Mg Tab) 40 mg PO DAILY [facility] Furosemide (Furosemide 10 Mg/Ml 4 Ml Vial) 40 mg IV DAILY [facility] Last Admin: 12/27/20 07:43 Dose: 40 mg Documented by: Gabapentin (Gabapentin 400 Mg Cap) 400 mg PO TID [facility] Last Admin: 12/27/20 07:43 Dose: 400 mg Documented by: Guaifenesin/Codeine Phosphate (Guaifenesin-Coden 100-10mg/5ml 10 Ml Cup) 10 ml PO TID [facility] Last Admin: 12/27/20 07:44 Dose: Not Given Documented by: Hydralazine HCl (Hydralazine Hcl 50 Mg Tab) 50 mg PO AC-TID [facility] Last Admin: 12/27/20 12:43 Dose: 50 mg Documented by: Daptomycin 300 mg/ Sodium (Chloride) 50 mls @ 100 mls/hr IVPB Q48H [facility]; Protocol Last Admin: 12/26/20 08:00 Dose: 100 mls/hr Documented by: Insulin Aspart (Insulin Aspart (Novolog) 100 Unit/Ml Vial) 0 unit SQ ACHS [facility]; Protocol Last Admin: 12/27/20 12:36 Dose: Not Given Documented by: Insulin Aspart (Insulin Aspart (Novolog) 100 Unit/Ml Vial) 10 unit SQ AC-TID [facility] Last Admin: 12/27/20 12:37 Dose: Not Given Documented by: Insulin Detemir (Insulin Detemir (Levemir) 100 Unit/Ml Syr) 28 unit SQ [facility] Midodrine (Midodrine 5 Mg Tab) 2.5 mg PO AC-TID [facility] Last Admin: 12/27/20 12:43 Dose: 2.5 mg Documented by: Nitroglycerin (Nitroglycerin Sl Tabs 0.4 Mg Tab) 0.4 mg SUBLINGUAL Q5M PRN PRN Reason: Chest Pain Ondansetron HCl (Ondansetron 4 Mg Tab) 4 mg PO TID PRN PRN Reason: Nausea Last Admin: 12/26/20 12:31 Dose: 4 mg Documented by: Prednisone (Prednisone 20 Mg Tab) 40 mg PO DAILY [facility] Last Admin: 12/27/20 07:44 Dose: 40 mg Documented by: Trazodone HCl (Trazodone Hcl 100 Mg Tab) 100 mg PO [facility] Last Admin: 12/26/20 21:25 Dose: 100 mg Documented by: Objective - Vital Signs Vital signs: Vital Signs Temp 98.2 F 12/27/20 10:40 Pulse 88 12/27/20 10:40 Resp 16 12/27/20 10:40 BP 134/75 12/27/20 10:40 Pulse Ox 93 L 12/27/20 10:40 Intake & Output 12/26/20 12/27/20 12/27/20 18:59 06:59 18:59 Intake Total 1422 870 560 Output Total 550 650 300 Balance 872 220 260 Intake: Oral 1422 560 560 Blood Product 310 Rc As-1 Unit 310 [id number] Output: Urine 550 650 300 Other: Voiding Method Toilet Toilet Toilet Urinal Urinal Urinal # Voids 1 1 - Exam GENERAL: The patient is alert and oriented x3, not in any acute distress. Well developed, well nourished. HEENT: Pupils are round and equally reacting to light. EOMI. No scleral icterus. No conjunctival pallor. CARDIOVASCULAR: S1 and S2 present. No murmurs, rubs, or gallops. PULMONARY: Chest is clear to auscultation, no wheezing or crackles. ABDOMEN: Soft, nontender, nondistended, normoactive bowel sounds. No palpable organomegaly. MUSCULOSKELETAL: No joint swelling or deformity. -EXTREMITIES: No cyanosis, clubbing, mild bilateral pitting leg edema. Mild superficial threadlike ulcer in the left leg and 2 large ulcers in the right knee and the right leg with no surrounding cellulitis, healing NEUROLOGICAL: Gross neurological examination did not reveal any focal deficits. - Labs CBC & Chem 7: 12/27/20 05:44 12/27/20 05:44 Labs: Abnormal Lab Results - Last 24 Hours (Table) 12/26/20 12/26/20 12/26/20 Range/Units 06:34 06:34 16:41 WBC 4.19 L (4.50-10.00) X 10*3/uL RBC 2.20 L (4.40-5.60) X 10*6/uL Hgb 6.6 L* (13.0-17.0) g/dL Hct 21.2 L (39.6-50.0) % MCHC 31.1 L (32.0-37.0) g/dL Immature Gran # 0.08 H (0.00-0.04) X 10*3/uL Lymphocytes # 0.81 L (0.90-5.00) X 10*3/uL Sodium (137-145) mmol/L Potassium (3.5-5.1) mmol/L Chloride (98-107) mmol/L BUN (9-20) mg/dL Creatinine (0.66-1.25) mg/dL Glucose (74-99) mg/dL POC Glucose (mg/dL) 398 H (75-99) mg/dL Procalcitonin 0.14 H (0.02-0.09) ng/mL Crossmatch 12/26/20 12/26/20 12/27/20 Range/Units 18:45 20:08 02:39 WBC (4.50-10.00) X 10*3/uL RBC (4.40-5.60) X 10*6/uL Hgb (13.0-17.0) g/dL Hct (39.6-50.0) % MCHC (32.0-37.0) g/dL Immature Gran # (0.00-0.04) X 10*3/uL Lymphocytes # (0.90-5.00) X 10*3/uL Sodium (137-145) mmol/L Potassium (3.5-5.1) mmol/L Chloride (98-107) mmol/L BUN (9-20) mg/dL Creatinine (0.66-1.25) mg/dL Glucose (74-99) mg/dL POC Glucose (mg/dL) 480 H 437 H (75-99) mg/dL Procalcitonin (0.02-0.09) ng/mL Crossmatch See Detail 12/27/20 12/27/20 12/27/20 Range/Units 05:44 05:44 07:12 WBC (4.50-10.00) X 10*3/uL RBC 2.79 L (4.40-5.60) X 10*6/uL Hgb 8.7 L (13.0-17.0) g/dL Hct 26.3 L (39.6-50.0) % MCHC (32.0-37.0) g/dL Immature Gran # (0.00-0.04) X 10*3/uL Lymphocytes # 0.8 L (0.90-5.00) X 10*3/uL Sodium 132 L (137-145) mmol/L Potassium 5.4 H (3.5-5.1) mmol/L Chloride 95 L (98-107) mmol/L BUN 78 H (9-20) mg/dL Creatinine 3.29 H (0.66-1.25) mg/dL Glucose 362 H (74-99) mg/dL POC Glucose (mg/dL) 374 H (75-99) mg/dL Procalcitonin (0.02-0.09) ng/mL Crossmatch 12/27/20 Range/Units 11:33 WBC (4.50-10.00) X 10*3/uL RBC (4.40-5.60) X 10*6/uL Hgb (13.0-17.0) g/dL Hct (39.6-50.0) % MCHC (32.0-37.0) g/dL Immature Gran # (0.00-0.04) X 10*3/uL Lymphocytes # (0.90-5.00) X 10*3/uL Sodium (137-145) mmol/L Potassium (3.5-5.1) mmol/L Chloride (98-107) mmol/L BUN (9-20) mg/dL Creatinine (0.66-1.25) mg/dL Glucose (74-99) mg/dL POC Glucose (mg/dL) 130 H (75-99) mg/dL Procalcitonin (0.02-0.09) ng/mL Crossmatch Assessment and Plan Assessment: ASSESSMENT -Bilateral lower extremity superficial ulceration with infection secondary to MRSA and Streptococcus galactorrhea -Acute kidney injury, possibly acute interstitial nephritis currently on prednisone -Proteinuria and mild hematuria, rule out, nephritis. Healthcare Liaison team on the case -Chronic kidney disease stage III -Chronic diastolic CHF with EF 50-55% -Chronic leg wound, patient follow up with ID Dr. Milligan -Hyperlipidemia -2 diabetes mellitus -Diabetic peripheral neuropathy -COPD in current smoker -Nicotine dependence PLAN: Patient is currently being treated for bilateral lower extremity wounds with daptomycin. Patient's pulmonary infiltrates improved with Lasix and fluid restriction. His dose of Lasix is 40 mg twice a day, changed to 40 mg yesterday. Nephrology on board and following for acute kidney injury. Patient received 1 unit of PRBC yesterday and his hemoglobin is at 8.7 today. Patient denied having any bloody bowel movements or epigastric pain or vomiting. Continue with the current medication regimen for now. Nephrology possible plan for for kidney biopsy . The treatment plan was discussed in detail with the patient at bedside. Further recommendations to follow depending on the progress of the patient.
[2020-12-27 20:21] LABS: Glucose,Whole Blood 473 mg/dL (75-99)
[2020-12-27] MEDS ORDERED: INSULIN ASPART (NovoLOG) 100 UNIT/ML VIAL SQ ONE (21:15)
[2020-12-27] MEDS: traZODone HCL 100 MG TAB PO SCH (21:27)
[2020-12-27] MEDS: INSULIN DETEMIR (LEVEMIR) 100 UNIT/ML SYR SQ SCH (21:28)
[2020-12-28 06:45] LABS: Glucose,Whole Blood 416 mg/dL (75-99)
[2020-12-28] MEDS: SYMBICORT 80-4.5 MCG INHALER INHALATION SCH ×2 (07:14→20:09)
[2020-12-28] MEDS: ENOXAPARIN 30 MG/0.3 ML SYRINGE SQ SCH (08:09)
[2020-12-28] MEDS: INSULIN ASPART (NovoLOG) 100 UNIT/ML VIAL SQ SCH ×7 (08:09→21:06)
[2020-12-28] MEDS: guaiFENesin-Coden 100-10MG/5ML 10 ML CUP PO SCH ×3 (08:10→21:07)
[2020-12-28] MEDS: GABAPENTIN 400 MG CAP PO SCH ×3 (08:10→21:06)
[2020-12-28] MEDS: DULoxetine HCL 60 MG CAPSULE.DR PO SCH (08:10)
[2020-12-28] MEDS: FAMOTIDINE 20 MG TAB PO SCH (08:10)
[2020-12-28] MEDS: FUROSEMIDE 10 MG/ML 4 ML VIAL IV SCH (08:11)
[2020-12-28] MEDS: predniSONE 20 MG TAB PO SCH (08:11)
[2020-12-28] MEDS: hydrALAZINE HCL 50 MG TAB PO SCH ×3 (08:11→17:19)
[2020-12-28] MEDS: amLODIPine 5 MG TAB PO SCH (08:11)
[2020-12-28] MEDS: MIDODRINE 5 MG TAB PO SCH ×3 (08:29→17:19)
[2020-12-28 11:24] LABS: BUN/Creat Ratio 29.35 Ratio (12.00-20.00); Calcium 8.1 mg/dL (8.7-10.3); Non-African American GFR(CKD) 22.4 (60.0-200.0); Potassium 5.9 mmol/L (3.5-5.5)
[2020-12-28 11:57] LABS: Basophils # (A) 0.03 X 10*3/uL (0.00-0.10); Basophils % (A) 0.4 %; Eosinophils # (A) 0.01 X 10*3/uL (0.04-0.35); Eosinophils % (A) 0.1 %; HCT 24.5 % (39.6-50.0); HGB 7.6 g/dL (13.0-17.0); Lymphocytes # (A) 0.79 X 10*3/uL (0.90-5.00); Lymphocytes % (A) 9.6 %; MCH 29.9 pg (27.0-32.0); MCV 96.5 fL (80.0-97.0); Mean Platelet Volume 10.7 fL (9.5-12.2); Monocytes # (A) 0.65 X 10*3/uL (0.20-1.00); Monocytes % (A) 7.9 %; Neutrophils # (A) 6.63 X 10*3/uL (1.80-7.70); Platelet Count 234 X 10*3/uL (140-440); RBC 2.54 X 10*6/uL (4.40-5.60); RDW 12.8 % (11.5-14.5); WBC 8.19 X 10*3/uL (4.50-10.00)
[2020-12-28 11:57] LABS: Glucose,Whole Blood 310 mg/dL (75-99)
--- NOTE | 2020-12-28 13:30 | P.PN ---
Subjective Patient is seen in follow-up for acute kidney injury on chronic kidney disease. He is maintained on prednisone due to concern for acute interstitial nephritis. Renal function is slightly better today. Has been voiding. No chest pain or shortness of breath. Oral intake fair. Vital signs are stable. General: The patient appeared well nourished and normally developed. HEENT: Head exam is unremarkable. Neck is without jugular venous distension. LUNGS: Breath sounds decreased. HEART: Rate and Rhythm are regular. ABDOMEN: Soft, no distention. EXTREMITITES: 1+ edema. No drainage noted. Objective - Vital Signs Vital signs: Vital Signs Temp 97.8 F 12/28/20 07:01 Pulse 83 12/28/20 07:01 Resp 18 12/28/20 07:01 BP 135/78 12/28/20 12:47 Pulse Ox 91 L 12/28/20 07:01 Intake & Output 12/27/20 12/28/20 12/28/20 18:59 06:59 18:59 Intake Total 996 240 Output Total 650 225 Balance 346 15 Intake: Oral 996 240 Output: Urine 650 225 Other: Voiding Method Toilet Toilet Urinal Urinal # Voids 1 - Labs CBC & Chem 7: 12/28/20 06:21 12/28/20 06:21 Labs: Abnormal Lab Results - Last 24 Hours (Table) 12/27/20 12/27/20 12/28/20 Range/Units 16:45 20:19 06:21 RBC 2.54 L (4.40-5.60) X 10*6/uL Hgb 7.6 L (13.0-17.0) g/dL Hct 24.5 L (39.6-50.0) % MCHC 31.0 L (32.0-37.0) g/dL Immature Gran # 0.08 H (0.00-0.04) X 10*3/uL Lymphocytes # 0.79 L (0.90-5.00) X 10*3/uL Eosinophils # 0.01 L (0.04-0.35) X 10*3/uL Sodium (135-145) mmol/L Potassium (3.5-5.5) mmol/L BUN (9.0-27.0) mg/dL Creatinine (0.6-1.5) mg/dL Est GFR (CKD-EPI)AfAm (60.0-200.0) Est GFR (CKD-EPI)NonAf (60.0-200.0) BUN/Creatinine Ratio (12.00-20.00) Ratio Glucose (70-110) mg/dL POC Glucose (mg/dL) 362 H 473 H (75-99) mg/dL Calcium (8.7-10.3) mg/dL 12/28/20 12/28/20 12/28/20 Range/Units 06:21 06:43 11:55 RBC (4.40-5.60) X 10*6/uL Hgb (13.0-17.0) g/dL Hct (39.6-50.0) % MCHC (32.0-37.0) g/dL Immature Gran # (0.00-0.04) X 10*3/uL Lymphocytes # (0.90-5.00) X 10*3/uL Eosinophils # (0.04-0.35) X 10*3/uL Sodium 132 L (135-145) mmol/L Potassium 5.9 H (3.5-5.5) mmol/L BUN 91.0 H (9.0-27.0) mg/dL Creatinine 3.1 H (0.6-1.5) mg/dL Est GFR (CKD-EPI)AfAm 26.0 L (60.0-200.0) Est GFR (CKD-EPI)NonAf 22.4 L (60.0-200.0) BUN/Creatinine Ratio 29.35 H (12.00-20.00) Ratio Glucose 408 H (70-110) mg/dL POC Glucose (mg/dL) 416 H 310 H (75-99) mg/dL Calcium 8.1 L (8.7-10.3) mg/dL Assessment and Plan Plan: Assessment: 1. Acute kidney injury secondary to ATN secondary to infection. Also consent for acute interstitial nephritis. Urine eosinophils 1%. Serologies negative. Started on prednisone 12/26/2020. Creatinine peaked at 3.29 and is 3.1 today. 2. Lower extremity cellulitis maintain on antibiotics. 3. Hyperkalemia secondary to acute kidney injury and hyperglycemia. 4. Hypertonic hyponatremia. Corrected sodium and a normal range. 5. Anemia of chronic kidney disease. 6. Hypertension with chronic kidney disease. Stable. 7. Acute on chronic diastolic CHF. 8. Chronic kidney disease stage IIIa with baseline creatinine near 1.5-2 secondary to diabetic kidney disease. Plan: Maintain IV Lasix. Transitioned to oral diuretics tomorrow. Type blood sugar control. Low potassium diet. Repeat potassium level this evening. Maintain prednisone. Started 12/26/2020. PPI discontinued. On Pepcid now. Check iron studies. Add Aranesp. Follow-up serum and urine immunofixation. If renal function continues to improve, then he can be discharged. He will need to follow-up outpatient in 1 week. If function not improving, will proceed with kidney biopsy. Patient in agreement with the plan.
[2020-12-28] MEDS ORDERED: DARBEPOETIN ALFA 40 MCG/0.4 ML SYRINGE SQ SCH (14:00)
--- NOTE | 2020-12-28 14:34 | PN ---
PROGRESS NOTE DATE OF SERVICE: 12/28/2020 REASON FOR FOLLOWUP: Right lower extremity multiple MRSA abscess, cellulitis. INTERVAL HISTORY: The patient is currently afebrile. The patient is breathing comfortably. Denies having any chest pain, shortness of breath or cough. No abdominal pain. Overall, right lower extremity lesions are dry and crusting out. No new lesions or drainage. PHYSICAL EXAMINATION: Blood pressure is 135/78 with a pulse of 83, temperature 97.8. He is 91% on room air. General description is a middle-aged male lying in bed in no distress. Respiratory system: Unlabored breathing, clear to auscultation anteriorly. HEART: S1, S2. Regular rate and rhythm. ABDOMEN: Soft, no tenderness. Right leg wounds are currently drying and crusting. No new lesions. LABS: Hemoglobin is 7.1, white count 8.19. BUN of 91, creatinine 3.1. DIAGNOSTIC IMPRESSION AND PLAN: Patient with right lower extremity multiple lesions secondary to MRSA. Patient is covered with daptomycin to continue for another week and close outpatient followup. MMODL / IJN: [id number] /
[2020-12-28 16:40] LABS: Glucose,Whole Blood 381 mg/dL (75-99)
[2020-12-28] MEDS ORDERED: INSULIN REGULAR 100 UNIT/ML VIAL IV ONE (18:12)
--- NOTE | 2020-12-28 18:33 | P.PN ---
Subjective Progress Note Date: 12/28/20 Principal diagnosis: Bilateral lower extremity cellulitis with MRSA, [place] I Mr. Squires is a 50-year-old male with a past medical history of type 2 diabetes mellitus, peripheral neuropathy, hyperlipidemia, prior history of MRSA coming in with worsening of his lower extremity wounds. Patient had scattered wounds that has been draining for the past few days. So the patient was started on IV vancomycin and admitted. Eventually he was changed to IV daptomycin. Patient's wound culture grew MRSA and Streptococcus pyogenes. Patient's creatinine was also elevated and did not respond to IV fluid challenge and so nephrology has been consulted was following the patient. He also had Doppler of his lower extremity that is negative for DVT. On 12/26/2020 - patient is seen and examined at the bedside. He states that he is wounds have been having less drainage and his lower extremity swelling is slowly improving. Patient states that he is thirsty but cannot drink a lot of F ortaz he is on 1800 mL of fluid restriction daily. Patient denies having any chest pain or palpitations. No cough or difficulty in breathing. No abdominal pain nausea vomiting or diarrhea. No dysuria or hematuria. On reviewing his vitals temperature 98.2, heart rate 90, respiratory rate 16, he is saturating at 95% on room air. On reviewing the labs white count of 14.9, hemoglobin of 6.6, platelets 217. Sodium 137, ratio 5.2, chloride 101, bicarb 31, PA and 69, creatinine 2.90. On 12/27/2020 - patient was seen and examined at the bedside. He is complaining of increased thirst and is requesting for more fluid intake. Patient denies having any chest pain or palpitations. His lower extremity wounds are healing well. Patient denies having any nausea vomiting or abdominal pain. No blood in his stools. Patient did receive 1 unit of PRBC yesterday and his hemoglobin this morning is 8.7. On reviewing the vitals temperature of 98.2, heart rate 93, respiratory rate 16, blood pressure 135/72, saturating 90% on room air. Reviewing the labs sodium 135, potassium 4.4, chloride 90, bicarbonate 20, B and 78, creatinine 3.29. His hemoglobin is 8.7, platelets 242 and white count of 8 .3. On 12/28/2020 - patient was seen and examined at the bedside. He has no active complaints. No acute events reported by nursing staff overnight. Patient denies having any chest pain or palpitations. Denies having any swelling of his lower extremities. No orthopnea or PND. No cough or difficulty in breathing. He states that his lower extremity wounds are healing well. No abdominal pain nausea vomiting or diarrhea. No dysuria or hematuria. On reviewing his vitals temperature of 98.1, heart rate 97, respiratory rate 18, blood pressure 167/77, saturating at 94% on room air. On reviewing the labs white count of 8.1, hemoglobin 7.6, platelets 234. Sodium 132, potassium 4.9, chloride 97, bicarbonate 28, BUN 91, creatinine 3.1. Patient's medications have been reviewed and he is on- Tylenol, Ventolin, Norvasc, Symbicort, daptomycin, and SSEP, Cymbalta, Lovenox, Pepcid, Lasix, Linda rontin, Robitussin, hydralazine, NovoLog, Levemir, Midodrin, prednisone, Zofran Objective - Vital Signs Vital signs: Vital Signs Temp 97.8 F 12/28/20 07:01 Pulse 83 12/28/20 07:01 Resp 18 12/28/20 07:01 BP 135/78 12/28/20 12:47 Pulse Ox 91 L 12/28/20 07:01 Intake & Output 12/27/20 12/28/20 12/28/20 18:59 06:59 18:59 Intake Total 996 240 Output Total 650 225 Balance 346 15 Intake: Oral 996 240 Output: Urine 650 225 Other: Voiding Method Toilet Toilet Urinal Urinal # Voids 1 - Exam GENERAL: The patient is alert and oriented x3, not in any acute distress. Well developed, well nourished. HEENT: Pupils are round and equally reacting to light. EOMI. mild pallor. CARDIOVASCULAR: S1 and S2 present. No murmurs, rubs, or gallops. PULMONARY: Chest is clear to auscultation, no wheezing or crackles. ABDOMEN: Soft, nontender, nondistended, normoactive bowel sounds. No palpable organomegaly. MUSCULOSKELETAL: No joint swelling or deformity. -EXTREMITIES: No cyanosis, clubbing, mild bilateral pitting leg edema. Mild superficial threadlike ulcer in the left leg and 2 large ulcers in the right knee and the right leg with no surrounding cellulitis, healing NEUROLOGICAL: Gross neurological examination did not reveal any focal deficits. - Labs CBC & Chem 7: 12/28/20 06:21 12/28/20 17:25 Labs: Abnormal Lab Results - Last 24 Hours (Table) 12/27/20 12/27/20 12/28/20 Range/Units 16:45 20:19 06:21 RBC 2.54 L (4.40-5.60) X 10*6/uL Hgb 7.6 L (13.0-17.0) g/dL Hct 24.5 L (39.6-50.0) % MCHC 31.0 L (32.0-37.0) g/dL Immature Gran # 0.08 H (0.00-0.04) X 10*3/uL Lymphocytes # 0.79 L (0.90-5.00) X 10*3/uL Eosinophils # 0.01 L (0.04-0.35) X 10*3/uL Sodium (135-145) mmol/L Potassium (3.5-5.5) mmol/L BUN (9.0-27.0) mg/dL Creatinine (0.6-1.5) mg/dL Est GFR (CKD-EPI)AfAm (60.0-200.0) Est GFR (CKD-EPI)NonAf (60.0-200.0) BUN/Creatinine Ratio (12.00-20.00) Ratio Glucose (70-110) mg/dL POC Glucose (mg/dL) 362 H 473 H (75-99) mg/dL Calcium (8.7-10.3) mg/dL 12/28/20 12/28/20 12/28/20 Range/Units 06:21 06:43 11:55 RBC (4.40-5.60) X 10*6/uL Hgb (13.0-17.0) g/dL Hct (39.6-50.0) % MCHC (32.0-37.0) g/dL Immature Gran # (0.00-0.04) X 10*3/uL Lymphocytes # (0.90-5.00) X 10*3/uL Eosinophils # (0.04-0.35) X 10*3/uL Sodium 132 L (135-145) mmol/L Potassium 5.9 H (3.5-5.5) mmol/L BUN 91.0 H (9.0-27.0) mg/dL Creatinine 3.1 H (0.6-1.5) mg/dL Est GFR (CKD-EPI)AfAm 26.0 L (60.0-200.0) Est GFR (CKD-EPI)NonAf 22.4 L (60.0-200.0) BUN/Creatinine Ratio 29.35 H (12.00-20.00) Ratio Glucose 408 H (70-110) mg/dL POC Glucose (mg/dL) 416 H 310 H (75-99) mg/dL Calcium 8.1 L (8.7-10.3) mg/dL Assessment and Plan Assessment: ASSESSMENT -Bilateral lower extremity superficial ulceration with infection secondary to MRSA and Streptococcus galactorrhea -Acute kidney injury, possibly acute interstitial nephritis currently on prednisone -Proteinuria and mild hematuria, rule out, nephritis. [facility] on the case - Anemia -Chronic kidney disease stage III -Chronic diastolic CHF with EF 50-55% -Chronic leg wound, patient follow up with ID Dr. Milligan -Hyperlipidemia -2 diabetes mellitus -Diabetic peripheral neuropathy -COPD in current smoker -Nicotine dependence PLAN: Patient is currently being treated for bilateral lower extremity wounds with daptomycin. Patient's pulmonary infiltrates improved with Lasix and fluid restriction. His dose of Lasix is 40 mg twice a day, changed to 40 mg yesterday. Nephrology on board and following for acute kidney injury- suspicion for acute interstitial nephritis, to be continued on prednisone as per discussi on with Dr. Christine this morning. Patient denied having any bloody bowel movements or epigastric pain or vomiting, his hemoglobin has been stable at 7.6, if it drops any further to consider GI or Hematology evaluation. The treatment plan was discussed in detail with the patient at bedside. Further recommendations to follow depending on the progress of the patient.
[2020-12-28 20:53] LABS: Glucose,Whole Blood 441 mg/dL (75-99)
[2020-12-28] MEDS: traZODone HCL 100 MG TAB PO SCH (21:06)
[2020-12-28] MEDS: INSULIN DETEMIR (LEVEMIR) 100 UNIT/ML SYR SQ SCH (21:06)
[2020-12-28 23:02] LABS: Glucose,Whole Blood 416 mg/dL (75-99)
[2020-12-28] MEDS ORDERED: INSULIN REGULAR 100 UNIT/ML VIAL SQ STA (23:08)
[2020-12-28] MEDS ORDERED: INSULIN REGULAR 100 UNIT/ML VIAL IV STA (23:21)
[2020-12-29 04:30] LABS: Ferritin 120.5 ng/mL (22.0-322.0)
[2020-12-29 04:34] LABS: % Iron Saturation 12.1 (15.00-50.00)
[2020-12-29] MEDS: SYMBICORT 80-4.5 MCG INHALER INHALATION SCH (07:10)
[2020-12-29 07:49] VITALS: RESP 16
[2020-12-29 08:18] LABS: Glucose,Whole Blood 281 mg/dL (75-99)
[2020-12-29] MEDS: MIDODRINE 5 MG TAB PO SCH ×2 (09:43→12:52)
[2020-12-29] MEDS: ENOXAPARIN 30 MG/0.3 ML SYRINGE SQ SCH (09:45)
[2020-12-29] MEDS: guaiFENesin-Coden 100-10MG/5ML 10 ML CUP PO SCH (09:46)
[2020-12-29] MEDS: DULoxetine HCL 60 MG CAPSULE.DR PO SCH (09:46)
[2020-12-29] MEDS: INSULIN ASPART (NovoLOG) 100 UNIT/ML VIAL SQ SCH ×4 (09:46→12:51)
[2020-12-29] MEDS: GABAPENTIN 400 MG CAP PO SCH (09:46)
[2020-12-29] MEDS: FUROSEMIDE 10 MG/ML 4 ML VIAL IV SCH (09:46)
[2020-12-29] MEDS: hydrALAZINE HCL 50 MG TAB PO SCH ×2 (09:47→12:51)
[2020-12-29] MEDS: amLODIPine 5 MG TAB PO SCH (09:47)
[2020-12-29] MEDS: predniSONE 20 MG TAB PO SCH (09:47)
[2020-12-29] MEDS: FAMOTIDINE 20 MG TAB PO SCH (09:47)
[2020-12-29] MEDS: ACETAMINOPHEN TAB 325 MG TAB PO PRN ×2 (09:55→14:51)
[2020-12-29 10:28] LABS: Basophils # (A) 0.05 X 10*3/uL (0.00-0.10); Basophils % (A) 0.6 %; Eosinophils # (A) 0.06 X 10*3/uL (0.04-0.35); Eosinophils % (A) 0.7 %; HCT 25.1 % (39.6-50.0); HGB 7.7 g/dL (13.0-17.0); Lymphocytes # (A) 0.99 X 10*3/uL (0.90-5.00); Lymphocytes % (A) 11.8 %; MCH 29.4 pg (27.0-32.0); MCHC 30.7 g/dL (32.0-37.0); MCV 95.8 fL (80.0-97.0); Mean Platelet Volume 10.5 fL (9.5-12.2); Monocytes # (A) 0.72 X 10*3/uL (0.20-1.00); Monocytes % (A) 8.6 %; Neutrophils # (A) 6.54 X 10*3/uL (1.80-7.70); Neutrophils % (A) 77.7 %; Platelet Count 244 X 10*3/uL (140-440); RBC 2.62 X 10*6/uL (4.40-5.60); RDW 12.7 % (11.5-14.5); WBC 8.41 X 10*3/uL (4.50-10.00)
[2020-12-29 11:14] LABS: Glucose,Whole Blood 345 mg/dL (75-99)
[2020-12-29 11:17] LABS: African American GFR (CKD) 28.1 (60.0-200.0); BUN/Creat Ratio 32.41 Ratio (12.00-20.00); Magnesium 2.5 mg/dL (1.5-2.4); Non-African American GFR(CKD) 24.3 (60.0-200.0)
[2020-12-29] MEDS ORDERED: SODIUM FERRIC GLUCONAT-SUCROSE 125 MG in SODIUM CHLORIDE 0.9% 100 ML IVPB ONE (12:04)
--- NOTE | 2020-12-29 12:05 | P.PN ---
Subjective Patient is seen in follow-up for acute kidney injury on chronic kidney disease. He is maintained on prednisone due to concern for acute interstitial nephritis. Renal function is gradually improving. Has been voiding. No chest pain or shortness of breath. Oral intake fair. Vital signs are stable. General: The patient appeared well nourished and normally developed. HEENT: Head exam is unremarkable. Neck is without jugular venous distension. LUNGS: Breath sounds decreased. HEART: Rate and Rhythm are regular. ABDOMEN: Soft, no distention. EXTREMITITES: 1+ edema. No drainage noted. Objective - Vital Signs Vital signs: Vital Signs Temp 97.7 F 12/29/20 07:48 Pulse 85 12/29/20 07:48 Resp 16 12/29/20 07:48 BP 165/82 12/29/20 07:48 Pulse Ox 96 12/29/20 07:48 Intake & Output 12/28/20 12/29/20 12/29/20 18:59 06:59 18:59 Intake Total 1437 236 Output Total 800 Balance 637 236 Weight 80.5 kg Intake: Oral 1437 236 Output: Urine 800 Other: Voiding Method Toilet Urinal # Voids 2 - Labs CBC & Chem 7: 12/29/20 05:37 12/29/20 05:37 Labs: Abnormal Lab Results - Last 24 Hours (Table) 12/28/20 12/28/20 12/28/20 Range/Units 16:38 17:25 17:25 RBC (4.40-5.60) X 10*6/uL Hgb (13.0-17.0) g/dL Hct (39.6-50.0) % MCHC (32.0-37.0) g/dL Immature Gran # (0.00-0.04) X 10*3/uL Sodium (135-145) mmol/L Potassium 6.4 H* (3.5-5.1) mmol/L BUN (9.0-27.0) mg/dL Creatinine (0.6-1.5) mg/dL Est GFR (CKD-EPI)AfAm (60.0-200.0) Est GFR (CKD-EPI)NonAf (60.0-200.0) BUN/Creatinine Ratio (12.00-20.00) Ratio Glucose (70-110) mg/dL POC Glucose (mg/dL) 381 H (75-99) mg/dL Calcium (8.7-10.3) mg/dL Magnesium (1.5-2.4) mg/dL Iron 34 L (65-175) ug/dL % Saturation 12.10 L (15.00-50.00) 12/28/20 12/28/20 12/28/20 Range/Units 20:51 23:01 23:40 RBC (4.40-5.60) X 10*6/uL Hgb (13.0-17.0) g/dL Hct (39.6-50.0) % MCHC (32.0-37.0) g/dL Immature Gran # (0.00-0.04) X 10*3/uL Sodium (135-145) mmol/L Potassium 5.3 H (3.5-5.1) mmol/L BUN (9.0-27.0) mg/dL Creatinine (0.6-1.5) mg/dL Est GFR (CKD-EPI)AfAm (60.0-200.0) Est GFR (CKD-EPI)NonAf (60.0-200.0) BUN/Creatinine Ratio (12.00-20.00) Ratio Glucose (70-110) mg/dL POC Glucose (mg/dL) 441 H 416 H (75-99) mg/dL Calcium (8.7-10.3) mg/dL Magnesium (1.5-2.4) mg/dL Iron (65-175) ug/dL % Saturation (15.00-50.00) 12/29/20 12/29/20 12/29/20 Range/Units 05:37 05:37 06:55 RBC 2.62 L (4.40-5.60) X 10*6/uL Hgb 7.7 L (13.0-17.0) g/dL Hct 25.1 L (39.6-50.0) % MCHC 30.7 L (32.0-37.0) g/dL Immature Gran # 0.05 H (0.00-0.04) X 10*3/uL Sodium 133 L (135-145) mmol/L Potassium (3.5-5.1) mmol/L BUN 94.0 H (9.0-27.0) mg/dL Creatinine 2.9 H (0.6-1.5) mg/dL Est GFR (CKD-EPI)AfAm 28.1 L (60.0-200.0) Est GFR (CKD-EPI)NonAf 24.3 L (60.0-200.0) BUN/Creatinine Ratio 32.41 H (12.00-20.00) Ratio Glucose 288 H (70-110) mg/dL POC Glucose (mg/dL) 281 H (75-99) mg/dL Calcium 8.0 L (8.7-10.3) mg/dL Magnesium 2.5 H (1.5-2.4) mg/dL Iron (65-175) ug/dL % Saturation (15.00-50.00) 12/29/20 Range/Units 11:13 RBC (4.40-5.60) X 10*6/uL Hgb (13.0-17.0) g/dL Hct (39.6-50.0) % MCHC (32.0-37.0) g/dL Immature Gran # (0.00-0.04) X 10*3/uL Sodium (135-145) mmol/L Potassium (3.5-5.1) mmol/L BUN (9.0-27.0) mg/dL Creatinine (0.6-1.5) mg/dL Est GFR (CKD-EPI)AfAm (60.0-200.0) Est GFR (CKD-EPI)NonAf (60.0-200.0) BUN/Creatinine Ratio (12.00-20.00) Ratio Glucose (70-110) mg/dL POC Glucose (mg/dL) 345 H (75-99) mg/dL Calcium (8.7-10.3) mg/dL Magnesium (1.5-2.4) mg/dL Iron (65-175) ug/dL % Saturation (15.00-50.00) Assessment and Plan Plan: Assessment: 1. Acute kidney injury secondary to ATN secondary to infection. Also concern for acute interstitial nephritis. Urine eosinophils 1%. Serologies negative. Started on prednisone 12/26/2020. Creatinine peaked at 3.29 and is 3.1 today. 2. Lower extremity cellulitis maintain on antibiotics. 3. Hyperkalemia secondary to acute kidney injury and hyperglycemia. Better. 4. Hypertonic hyponatremia. Corrected sodium and a normal range. 5. Anemia of chronic kidney disease. Maintained on Aranesp. Iron deficiency noted. 6. Hypertension with chronic kidney disease. Stable. 7. Acute on chronic diastolic CHF. 8. Chronic kidney disease stage IIIa with baseline creatinine near 1.5-2 secondary to diabetic kidney disease. 9. Serum immunofixation positive for kappa paraprotein. He will need to fo llow-up with oncology outpatient. Plan: I will change Lasix to 40 mg orally once daily. Tight blood sugar control. Low potassium diet. Maintain prednisone. Started 12/26/2020. PPI discontinued. On Pepcid now. I will give him a dose of IV iron today. Follow-up with oncology outpatient. Renal function is improving. He can be discharged home on prednisone. Repeat BMP and magnesium level this Monday. Follow up outpatient in 1 week. Kidney biopsy has been discussed with the patient.
[2020-12-29 12:39] VITALS: BMI 27.8
[2020-12-29 14:35] VITALS: BP 147/77; PULSE 92; TEMP 98
--- NOTE | 2020-12-29 19:01 | PN ---
PROGRESS NOTE DATE OF SERVICE: 12/29/2020 REASON FOR FOLLOWUP: Right lower extremity multiple skin abscesses and cellulitis secondary to MRSA. INTERVAL HISTORY: The patient is currently afebrile. The patient is breathing comfortably. The patient denies having any chest pain or shortness of breath or cough. No abdominal pain. Overall right lower extremity lesions have been crusting up and the redness has improved. PHYSICAL EXAMINATION: Blood pressure is 147/77, pulse of 92, temperature 98. He is 92% on room air. General description is a middle-aged male lying in bed in no distress. RESPIRATORY SYSTEM: Unlabored breathing. Clear to auscultation anteriorly. HEART: S1, S2. Regular rate and rhythm. ABDOMEN: Soft. No tenderness. RIGHT LOWER EXTREMITY: Multiple lesions that have been crusting up and redness has decreased. LABS: Hemoglobin is 7.7, white count 8.41, BUN of 94, creatinine is 2.9. DIAGNOSTIC IMPRESSION AND PLAN: Patient with right lower extremity multiple skin and soft tissue lesions, abscesses, cellulitis. Overall improvement with daptomycin; to continue for another week and close outpatient followup. Continue supportive care. MMODL / IJN: [id number] /
[2020-12-30] MEDS ORDERED: FUROSEMIDE 40 MG TAB PO SCH (09:00)
--- NOTE | 2020-12-30 14:03 | P.DS ---
Providers Date of admission: 12/16/20 18:32 Expected date of discharge: 12/30/20 Attending physician: Armando Pablo Consults: 12/16/20 18:57 Consult Physician Routine Consulting Provider: Shaan Milligan Consult Reason/Comments: multiple abscesses Do you want consulting provider notified?: Yes 12/19/20 00:01 Consult Physician Routine Consulting Provider: Rito Christine Consult Reason/Comments: [place] Do you want consulting provider notified?: Yes 12/22/20 11:11 Consult Physician Routine Consulting Provider: Alfredo Dickson Consult Reason/Comments: chest pain Do you want consulting provider notified?: Yes Primary care physician: Meet Fontanez [facility] Course: Final diagnosis -Bilateral lower extremity superficial ulceration with infection secondary to MRSA and Streptococcus galactorrhea -Acute kidney injury, possibly acute interstitial nephritis currently on prednisone -Proteinuria and mild hematuria, rule out, nephritis. [employer] team on the case - Anemia -Chronic kidney disease stage III -Chronic diastolic CHF with EF 50-55% -Chronic leg wound, patient follow up with ID Dr. Milligan -Hyperlipidemia -2 diabetes mellitus -Diabetic peripheral neuropathy -COPD in current smoker -Nicotine dependence Discharge disposition Patient is being discharged in stable condition with guarded prognosis to home. Patient will follow-up with Dr. Fontanez in the outpatient setting upon discharge. Patient also instructed to follow-up with nephrology in one week. Patient to continue with IV antibiotics per infectious disease and will follow-up at the wound center outpatient. Total time taken is greater than 35 minutes. Hospital course Bilateral lower extremity cellulitis with MRSA, [place] I Mr. Squires is a 50-year-old male with a past medical history of type 2 diabetes mellitus, peripheral neuropathy, hyperlipidemia, prior history of MRSA coming in with worsening of his lower extremity wounds. Patient had scattered wounds that has been draining for the past few days. So the patient was started on IV vancomycin and admitted. Eventually he was changed to IV daptomycin. Patient's wound culture grew MRSA and Streptococcus pyogenes. Patient's creatinine was also elevated and did not respond to IV fluid challenge and so nephrology has been consulted was following the patient. He also had Doppler of his lower extremity that is negative for DVT. On 12/26/2020 - patient is seen and examined at the bedside. He states that he is wounds have been having less drainage and his lower extremity swelling is slowly improving. Patient states that he is thirsty but cannot drink a lot of [place] he is on 1800 mL of fluid restriction daily. Patient denies having any chest pain or palpitations. No cough or difficulty in breathing. No abdominal pain nausea vomiting or diarrhea. No dysuria or hematuria. On reviewing his vitals temperature 98.2, heart rate 90, respiratory rate 16, he is saturating at 95% on room air. On reviewing the labs white count of 14.9, hemoglobin of 6.6, platelets 217. Sodium 137, ratio 5.2, chloride 101, bicarb 31, PA and 69, creatinine 2.90. On 12/27/2020 - patient was seen and examined at the bedside. He is complaining of increased thirst and is requesting for more fluid intake. Patient denies having any chest pain or palpitations. His lower extremity wounds are healing well. Patient denies having any nausea vomiting or abdominal pain. No blood in his stools. Patient did receive 1 unit of PRBC yesterday and his hemoglobin this morning is 8.7. On reviewing the vitals temperature of 98.2, heart rate 93, respiratory rate 16, blood pressure 135/72, saturating 90% on room air. Reviewing the labs sodium 135, potassium 4.4, chloride 90, bicarbonate 20, B and 78, creatinine 3.29. His hemoglobin is 8.7, platelets 242 and white count of 8.3. On 12/28/2020 - patient was seen and examined at the bedside. He has no active complaints. No acute events reported by nursing staff overnight. Patient denies having any chest pain or palpitations. Denies having any swelling of his lower extremities. No orthopnea or PND. No cough or difficulty in breathing. He states that his lower extremity wounds are healing well. No abdominal pain nausea vomiting or diarrhea. No dysuria or hematuria. On reviewing his vitals temperature of 98.1, heart rate 97, respiratory rate 18, blood pressure 167/77, saturating at 94% on room air. On reviewing the labs white count of 8.1, hemoglobin 7.6, platelets 234. Sodium 132, potassium 4.9, chloride 97, bicarbonate 28, BUN 91, creatinine 3.1. 12/29/2020 Patient is seen in follow-up in kidney function slowly trending down and will continue with current medications and Lasix and prescription provided for repeat labs in a few days and patient instructed to follow-up with nephrology in the outpatient setting in 1 week. Patient was maintained on IV antibiotics and has received a midline and will be continuing with IV antibiotic per infectious dise ase and follow-up in the wound center outpatient. Currently no reports of chest pain, shortness of breath, or palpitations. Patient is afebrile. No reports of nausea or vomiting and patient is tolerating diet. Patient will be discharged to home today. Guarded prognosis. On exam vital signs are stable. Cardio S1, S2 are muffled. Respiratory shows diminished breath sounds at the bases with no wheezing or rhonchi noted. Abdomen is soft and nontender. Nervous system shows no focal deficits. Please refer to medication reconciliation sheet for a list of medications Patient Condition at Discharge: Stable Plan - Discharge Summary Discharge Rx Participant: No New Discharge Prescriptions: New Darbepoetin Andrez [Aranesp] 40 mcg SQ Q7D syringe INSULIN ASPART (NovoLOG) [NovoLOG (formulary)] 10 unit SQ AC-TID 30 Days #5 vial predniSONE [Deltasone] 40 mg PO DAILY 30 Days #60 tab INSULIN ASPART (NovoLOG) [NovoLOG (formulary)] 0 unit SQ ACHS vial guaiFENesin-Coden 100-10MG/5ML [Robitussin AC] 10 ml PO TID #100 ml Continue Omeprazole [PriLOSEC] 40 mg PO AC-BRKFST #14 capsule. DULoxetine HCL [Cymbalta] 60 mg PO DAILY Acetaminophen Tab [Tylenol] 650 mg PO Q4H PRN PRN Reason: Mild Pain Or Fever > 100.5 Albuterol Sulfate [Proair Hfa] 2 puff INHALATION RT-Q6H PRN PRN Reason: Shortness Of Breath Semaglutide [Ozempic] 1 mg SQ TH Insulin Glargine,Hum.rec.anlog [Basaglar Kwikpen U-100] 56 unit SQ HS traZODone HCL [Desyrel] 100 mg PO HS #30 tab Atorvastatin [Lipitor] 40 mg PO DAILY #30 tab Fluticasone/Salmeterol [Advair 250-50 Diskus] 1 puff INHALATION RT-BID hydrALAZINE HCL [Apresoline] 50 mg PO AC-TID Nitroglycerin Sl Tabs [Nitrostat] 0.4 mg SL Q5M PRN PRN Reason: Chest Pain amLODIPine [Norvasc] 5 mg PO DAILY Midodrine HCl [ProAmantine] 2.5 mg PO AC-TID Ondansetron [Zofran] 4 mg PO TID PRN PRN Reason: Nausea Changed Gabapentin 400 mg PO TID #0 Furosemide [Lasix] 40 mg PO DAILY PRN 30 Days #60 tab PRN Reason: Edema Discontinued Sulfamethox-Tmp 800-160Mg [Bactrim DS 800-160 mg] 1 tab PO BID Discharge Medication List Omeprazole [PriLOSEC] 40 mg PO AC-BRKFST #14 capsule. 11/04/19 [Rx] DULoxetine HCL [Cymbalta] 60 mg PO DAILY 04/01/20 [History] Acetaminophen Tab [Tylenol] 650 mg PO Q4H PRN 07/25/20 [History] Albuterol Sulfate [Proair Hfa] 2 puff INHALATION RT-Q6H PRN 07/25/20 [History] Insulin Glargine,Hum.rec.anlog [Basaglar Kwikpen U-100] 56 unit SQ HS 10/03/20 [History] Semaglutide [Ozempic] 1 mg SQ TH 10/03/20 [History] Atorvastatin [Lipitor] 40 mg PO DAILY #30 tab 10/13/20 [Rx] traZODone HCL [Desyrel] 100 mg PO HS #30 tab 10/13/20 [Rx] Fluticasone/Salmeterol [Advair 250-50 Diskus] 1 puff INHALATION RT-BID 12/16/20 [History] Midodrine HCl [ProAmantine] 2.5 mg PO AC-TID 12/16/20 [History] Nitroglycerin Sl Tabs [Nitrostat] 0.4 mg SL Q5M PRN 12/16/20 [History] Ondansetron [Zofran] 4 mg PO TID PRN 12/16/20 [History] amLODIPine [Norvasc] 5 mg PO DAILY 12/16/20 [History] hydrALAZINE HCL [Apresoline] 50 mg PO AC-TID 12/16/20 [History] Darbepoetin Andrez [Aranesp] 40 mcg SQ Q7D syringe 12/29/20 [Rx] Furosemide [Lasix] 40 mg PO DAILY PRN 30 Days #60 tab 12/29/20 [Rx] Gabapentin 400 mg PO TID #0 12/29/20 [Rx] INSULIN ASPART (NovoLOG) [NovoLOG (formulary)] 0 unit SQ ACHS vial 12/29/20 [Rx] INSULIN ASPART (NovoLOG) [NovoLOG (formulary)] 10 unit SQ AC-TID 30 Days #5 vial 12/29/20 [Rx] guaiFENesin-Coden 100-10MG/5ML [Robitussin AC] 10 ml PO TID #100 ml 12/29/20 [Rx] predniSONE [Deltasone] 40 mg PO DAILY 30 Days #60 tab 12/29/20 [Rx] Follow up Appointment(s)/Referral(s): Meet Fontanez DO [Primary Care Provider] - 1-2 Days (Office stating that patient is going to different provider.) Rito Christine DO [STAFF PHYSICIAN] - 1 Week (office not answering Please call to schedule appointment ) [facility] [REFERRING] - 12/30/20 7:45 am Ambulatory/Diagnostic Orders: Complete Blood Count w/diff [LAB.AMB] Time Frame: 2 Days, Location: None Selected Activity/Diet/Wound Care/Special Instructions: Activity Limited until follow-up Continue to monitor blood sugars and keep a diary for primary care follow-up NovoLog sliding scale 0-150 equals 0 units 151-200 equals 2 units 201-250 equals 4 units 251-300 equals 6 units 301-350 equals 8 units 351-400 equals 10 units Please notify provider if blood sugar is 400 or above continue sliding scale, long acting, and pre-meal insulin 3 times daily with meals Follow-up with nephrology outpatient Continue IV antibiotics per infectious disease Follow-up infectious disease outpatient Follow-up primary care provider continue consistent carb diet follow-up cardiology outpatient Repeat labs in 2-3 days Discharge Disposition: HOME SELF-CARE
== END 2020-12-29 15:54 | disposition home or self-care (01) | DRG 871 ==
LOC: EC 14:20 → 6NMEDSUR 18:32 → 4SSUR 12-27 10:25
PROVIDERS: ADMIT Hospitalist; ATTEND Hospitalist
PROC: 0H9KXZZ Drainage of Right Lower Leg Skin, External Approach (ICD-10-PCS; principal; 2020-12-16)
PROC: 05HA33Z Insertion of Infusion Device into Left Brachial Vein, Percutaneous Approach (ICD-10-PCS; 2020-12-21 12:55)
PROC: 30233N1 Transfusion of Nonautologous Red Blood Cells into Peripheral Vein, Percutaneous Approach (ICD-10-PCS; 2020-12-27)
DX: A41.9 Sepsis, unspecified organism (principal); I50.33 Acute on chronic diastolic (congestive) heart failure; N17.0 Acute kidney failure with tubular necrosis; N00.9 Acute nephritic syndrome with unspecified morphologic changes; L02.415 Cutaneous abscess of right lower limb; I13.0 Hypertensive heart and chronic kidney disease with heart failure and stage 1 through stage 4 chronic kidney disease, or unspecified chronic kidney disease; L97.919 Non-pressure chronic ulcer of unspecified part of right lower leg with unspecified severity; E87.1 Hypo-osmolality and hyponatremia; L97.929 Non-pressure chronic ulcer of unspecified part of left lower leg with unspecified severity; L02.416 Cutaneous abscess of left lower limb; L03.115 Cellulitis of right lower limb; L03.116 Cellulitis of left lower limb; I27.29 Other secondary pulmonary hypertension; I73.9 Peripheral vascular disease, unspecified; D63.1 Anemia in chronic kidney disease; E11.42 Type 2 diabetes mellitus with diabetic polyneuropathy; E11.22 Type 2 diabetes mellitus with diabetic chronic kidney disease; E11.65 Type 2 diabetes mellitus with hyperglycemia; N18.31 Chronic kidney disease, stage 3a; J44.9 Chronic obstructive pulmonary disease, unspecified; G90.1 Familial dysautonomia [Riley-Day]; Z79.4 Long term (current) use of insulin; Z20.822 Contact with and (suspected) exposure to COVID-19; B95.0 Streptococcus, group A, as the cause of diseases classified elsewhere; B95.62 Methicillin resistant Staphylococcus aureus infection as the cause of diseases classified elsewhere; E87.5 Hyperkalemia; I95.1 Orthostatic hypotension; D72.810 Lymphocytopenia; E61.1 Iron deficiency; R07.9 Chest pain, unspecified; E78.5 Hyperlipidemia, unspecified; I07.1 Rheumatic tricuspid insufficiency; R19.7 Diarrhea, unspecified; F41.9 Anxiety disorder, unspecified; F17.211 Nicotine dependence, cigarettes, in remission; Z79.51 Long term (current) use of inhaled steroids; Z79.899 Other long term (current) drug therapy; Z98.41 Cataract extraction status, right eye; Z98.42 Cataract extraction status, left eye; Z90.49 Acquired absence of other specified parts of digestive tract; Z87.19 Personal history of other diseases of the digestive system; Z87.39 Personal history of other diseases of the musculoskeletal system and connective tissue; Z86.14 Personal history of Methicillin resistant Staphylococcus aureus infection; Z86.19 Personal history of other infectious and parasitic diseases; Z87.2 Personal history of diseases of the skin and subcutaneous tissue; Z98.890 Other specified postprocedural states; Z83.3 Family history of diabetes mellitus
CPT/HCPCS: 36410; 36415; 71045; 71046; 76770; 76937; 80048; 80053; 80061; 81001; 82009; 82565; 82728; 83540; 83550; 83605; 83735; 83930; 84132; 84145; 84484; 85025; 85610; 85730; 86038; 86140; 86160; 86255; 86334; 86335; 86706; 86803; 86850; 86900; 86901; 86920; 87040; 87070; 87077; 87186; 87205; 87340; 87635; 93005; 93970; 94640; 94760; 96361; 96372; 96374; 99285

== ENCOUNTER 2021-01-04 09:02 | Inpatient (IN) | payer OTHER ==
[2021-01-04 09:20] LABS: Glucose,Whole Blood 581 mg/dL (75-99)
[2021-01-04] MEDS ORDERED: NITROGLYCERIN SL TABS 0.4 MG TAB SUBLINGUAL PRN ×2 (09:20→12:48)
--- NOTE | 2021-01-04 09:20 | ED ---
General Adult HPI - General Chief complaint: Chest Pain Stated complaint: Chest Pain Time Seen by Provider: 01/04/21 09:05 Source: patient, RN notes reviewed, old records reviewed Mode of arrival: ambulatory Limitations: no limitations - History of Present Illness Initial comments: 50-year-old male presenting from the infusion center for evaluation of chest pain and dyspnea over the past one week. This has specifically worsen over the past 3 days. He does have a history of CHF. In review of the medical record does indicate that this patient had a previous MRSA infection and a aortitis. He is currently on IV antibiotics. He was found to be hypoxic and hypertensive at the infusion center. He has history of hypertension, diabetes, congestive heart failure. He denies cough or fever. He has had some intermittent vague chest discomfort. Additionally he reports lower extremity swelling which is worse on the left. - Related Data Home Medications Medication Instructions Recorded Confirmed DULoxetine HCL [Cymbalta] 60 mg PO DAILY 04/01/20 01/04/21 Acetaminophen Tab [Tylenol] 650 mg PO Q4H PRN 07/25/20 01/04/21 Albuterol Sulfate [Proair Hfa] 2 puff INHALATION RT-Q6H PRN 07/25/20 01/04/21 Insulin Glargine,Hum.rec.anlog 56 unit SQ HS 10/03/20 01/04/21 [Basaglar Kwikpen U-100] Semaglutide [Ozempic] 1 mg SQ TH 10/03/20 01/04/21 Fluticasone/Salmeterol [Advair 1 puff INHALATION RT-BID 12/16/20 01/04/21 250-50 Diskus] Midodrine HCl [ProAmantine] 2.5 mg PO AC-TID 12/16/20 01/04/21 Nitroglycerin Sl Tabs [Nitrostat] 0.4 mg SL Q5M PRN 12/16/20 01/04/21 Ondansetron [Zofran] 4 mg PO TID PRN 12/16/20 01/04/21 amLODIPine [Norvasc] 5 mg PO DAILY 12/16/20 01/04/21 hydrALAZINE HCL [Apresoline] 50 mg PO AC-TID 12/16/20 01/04/21 Previous Rx's Medication Instructions Recorded Omeprazole [PriLOSEC] 40 mg PO AC-BRKFST #14 capsule. 11/04/19 Atorvastatin [Lipitor] 40 mg PO DAILY #30 tab 10/13/20 traZODone HCL [Desyrel] 100 mg PO HS #30 tab 10/13/20 Darbepoetin Andrez [Aranesp] 40 mcg SQ Q7D syringe 12/29/20 Furosemide [Lasix] 40 mg PO DAILY PRN 30 Days #60 tab 12/29/20 Gabapentin 400 mg PO TID #0 12/29/20 INSULIN ASPART (NovoLOG) [NovoLOG 0 unit SQ ACHS vial 12/29/20 (formulary)] INSULIN ASPART (NovoLOG) [NovoLOG 10 unit SQ AC-TID 30 Days #5 vial 12/29/20 (formulary)] guaiFENesin-Coden 100-10MG/5ML 10 ml PO TID #100 ml 12/29/20 [Robitussin AC] predniSONE [Deltasone] 40 mg PO DAILY 30 Days #60 tab 12/29/20 Allergies Allergy/AdvReac Type Severity Reaction Status Date / Time No Known Allergies Allergy Verified 01/04/21 09:07 Review of Systems ROS Statement: Those systems with pertinent positive or pertinent negative responses have been documented in the HPI. ROS Other: All systems not noted in ROS Statement are negative. Past Medical History Past Medical History: Heart Failure, Diabetes Mellitus, Hyperlipidemia, Hypertension Additional Past Medical History / Comment(s): IDDM type II, neuropathy bilateral feet, gout, bilateral eye catarct removal, MRSA . History of Any Multi-Drug Resistant Organisms: MRSA Date of last positivie culture/infection: 10/04/20 MDRO Source:: Right Knee Past Surgical History: Cholecystectomy Additional Past Surgical History / Comment(s): I&D scrotal abscess, I&D back abscess Past Anesthesia/Blood Transfusion Reactions: No Reported Reaction Past Psychological History: Anxiety Smoking Status: Former smoker Past Alcohol Use History: Occasional Past Drug Use History: None Reported - Past Family History Mother Family Medical History: Diabetes Mellitus Father History Unknown: Yes General Exam Limitations: no limitations General appearance: alert, in no apparent distress Head exam: Present: atraumatic, normocephalic Eye exam: Present: normal appearance, PERRL ENT exam: Present: normal exam Neck exam: Present: normal inspection. Absent: tenderness, meningismus Respiratory exam: Present: respiratory distress, rales Cardiovascular Exam: Present: regular rate, normal rhythm GI/Abdominal exam: Present: soft. Absent: distended, tenderness, guarding Extremities exam: Present: pedal edema Neurological exam: Present: alert, oriented X3, CN II-XII intact. Absent: motor sensory deficit Psychiatric exam: Present: normal affect, normal mood Skin exam: Present: warm, dry, intact. Absent: cyanosis, diaphoretic Course Vital Signs 01/04/21 01/04/21 09:04 10:33 Temperature 98.7 F Pulse Rate 89 90 Respiratory 20 22 Rate Blood Pressure 218/112 178/95 O2 Sat by Pulse 84 L 95 Oximetry EKG Findings - EKG Comments: EKG Findings:: EKG: Normal sinus rhythm, rate of 88, OH interval 160 Duration 104, QTC [address] segment elevation. Medical Decision Making - Medical Decision Making 50-year-old male with worsening dyspnea minimal chest discomfort over the past several days. History of CHF. Patient is hypoxic, hypertensive upon arrival. Placed on supplemental oxygen, he does have rails bilaterally. Lower extremity edema which is worse on the left. Chest x-ray suggestive of CHF versus atypical pneumonia. His presentation is more consistent with CHF he has an elevated BNP of 8000. He is given Lasix in the emergency department. Case discussed with Dr. Pollock who will admit. His hemoglobin is stable. No leukocytosis. Stable chronic kidney disease. Negative coronavirus. Echo will be ordered. - Lab Data Result diagrams: 01/04/21 09:18 01/04/21 09:18 Lab Results 01/04/21 01/04/21 01/04/21 Range/Units 09:08 09:18 09:18 WBC 9.1 (3.8-10.6) k/uL RBC 3.29 L (4.30-5.90) m/uL Hgb 10.0 L (13.0-17.5) gm/dL Hct 31.1 L (39.0-53.0) % MCV 94.4 (80.0-100.0) fL MCH 30.4 (25.0-35.0) pg MCHC 32.2 (31.0-37.0) g/dL RDW 13.8 (11.5-15.5) % Plt Count 245 (150-450) k/uL MPV 8.1 Neutrophils % 85 % Lymphocytes % 7 % Monocytes % 6 % Eosinophils % 1 % Basophils % 0 % Neutrophils # 7.7 (1.3-7.7) k/uL Lymphocytes # 0.7 L (1.0-4.8) k/uL Monocytes # 0.5 (0-1.0) k/uL Eosinophils # 0.1 (0-0.7) k/uL Basophils # 0.0 (0-0.2) k/uL PT 11.2 (9.0-12.0) sec INR 1.1 (<1.2) APTT 23.8 (22.0-30.0) sec Sodium (137-145) mmol/L Potassium (3.5-5.1) mmol/L Chloride (98-107) mmol/L Carbon Dioxide (22-30) mmol/L Anion Gap mmol/L BUN (9-20) mg/dL Creatinine (0.66-1.25) mg/dL Est GFR (CKD-EPI)AfAm (>60 ml/min/1.73 sqM) Est GFR (CKD-EPI)NonAf (>60 ml/min/1.73 sqM) Glucose (74-99) mg/dL POC Glucose (mg/dL) 581 H (75-99) mg/dL POC Glu [employer] [place] Douglas Santana Calcium (8.4-10.2) mg/dL Magnesium (1.6-2.3) mg/dL Total Bilirubin (0.2-1.3) mg/dL AST (17-59) U/L ALT (4-49) U/L Alkaline Phosphatase (38-126) U/L Troponin I (0.000-0.034) ng/mL NT-Pro-B Natriuret Pep pg/mL Total Protein (6.3-8.2) g/dL Albumin (3.5-5.0) g/dL Influenza Type A (PCR) (Not Detectd) Influenza Type B (PCR) (Not Detectd) RSV (PCR) (Not Detectd) SARS-CoV-2 (PCR) (Not Detectd) 01/04/21 01/04/21 01/04/21 Range/Units 09:18 09:18 09:18 WBC (3.8-10.6) k/uL RBC (4.30-5.90) m/uL Hgb (13.0-17.5) gm/dL Hct (39.0-53.0) % MCV (80.0-100.0) fL MCH (25.0-35.0) pg MCHC (31.0-37.0) g/dL RDW (11.5-15.5) % Plt Count (150-450) k/uL MPV Neutrophils % % Lymphocytes % % Monocytes % % Eosinophils % % Basophils % % Neutrophils # (1.3-7.7) k/uL Lymphocytes # (1.0-4.8) k/uL Monocytes # (0-1.0) k/uL Eosinophils # (0-0.7) k/uL Basophils # (0-0.2) k/uL PT (9.0-12.0) sec INR (<1.2) APTT (22.0-30.0) sec Sodium 128 L (137-145) mmol/L Potassium 5.3 H (3.5-5.1) mmol/L Chloride 92 L (98-107) mmol/L Carbon Dioxide 29 (22-30) mmol/L Anion Gap 7 mmol/L BUN 70 H (9-20) mg/dL Creatinine 2.34 H (0.66-1.25) mg/dL Est GFR (CKD-EPI)AfAm 36 (>60 ml/min/1.73 sqM) Est GFR (CKD-EPI)NonAf 31 (>60 ml/min/1.73 sqM) Glucose 601 H* (74-99) mg/dL POC Glucose (mg/dL) (75-99) mg/dL POC Glu [employer] [place] Calcium 8.2 L (8.4-10.2) mg/dL Magnesium 2.7 H (1.6-2.3) mg/dL Total Bilirubin 0.6 (0.2-1.3) mg/dL AST 36 (17-59) U/L ALT 70 H (4-49) U/L Alkaline Phosphatase 366 H (38-126) U/L Troponin I <0.012 (0.000-0.034) ng/mL NT-Pro-B Natriuret Pep 8050 pg/mL Total Protein 6.9 (6.3-8.2) g/dL Albumin 3.2 L (3.5-5.0) g/dL Influenza Type A (PCR) (Not Detectd) Influenza Type B (PCR) (Not Detectd) RSV (PCR) (Not Detectd) SARS-CoV-2 (PCR) (Not Detectd) 01/04/21 Range/Units 10:39 WBC (3.8-10.6) k/uL RBC (4.30-5.90) m/uL Hgb (13.0-17.5) gm/dL Hct (39.0-53.0) % MCV (80.0-100.0) fL MCH (25.0-35.0) pg MCHC (31.0-37.0) g/dL RDW (11.5-15.5) % Plt Count (150-450) k/uL MPV Neutrophils % % Lymphocytes % % Monocytes % % Eosinophils % % Basophils % % Neutrophils # (1.3-7.7) k/uL Lymphocytes # (1.0-4.8) k/uL Monocytes # (0-1.0) k/uL Eosinophils # (0-0.7) k/uL Basophils # (0-0.2) k/uL PT (9.0-12.0) sec INR (<1.2) APTT (22.0-30.0) sec Sodium (137-145) mmol/L Potassium (3.5-5.1) mmol/L Chloride (98-107) mmol/L Carbon Dioxide (22-30) mmol/L Anion Gap mmol/L BUN (9-20) mg/dL Creatinine (0.66-1.25) mg/dL Est GFR (CKD-EPI)AfAm (>60 ml/min/1.73 sqM) Est GFR (CKD-EPI)NonAf (>60 ml/min/1.73 sqM) Glucose (74-99) mg/dL POC Glucose (mg/dL) (75-99) mg/dL POC Glu [employer] Engineer ID Calcium (8.4-10.2) mg/dL Magnesium (1.6-2.3) mg/dL Total Bilirubin (0.2-1.3) mg/dL AST (17-59) U/L ALT (4-49) U/L Alkaline Phosphatase (38-126) U/L Troponin I (0.000-0.034) ng/mL NT-Pro-B Natriuret Pep pg/mL Total Protein (6.3-8.2) g/dL Albumin (3.5-5.0) g/dL Influenza Type A (PCR) Not Detected (Not Detectd) Influenza Type B (PCR) Not Detected (Not Detectd) RSV (PCR) Not Detected (Not Detectd) SARS-CoV-2 (PCR) Not Detected (Not Detectd) Disposition Clinical Impression: CHF (congestive heart failure) Disposition: ADMITTED IP TO THIS [facility] Condition: Stable Is patient prescribed a controlled substance at d/c from ED?: No Referrals: Zina Meier PAC [Primary Care Provider] - 1-2 days Decision to Admit Reason: Admit from EC Decision Date: 01/04/21 Decision Time: 11:38
[2021-01-04 09:30] LABS: Basophils % (A) 0 %; Eosinophils # (A) 0.1 k/uL (0-0.7); Eosinophils % (A) 1 %; HCT 31.1 % (39.0-53.0); Lymphocytes # (A) 0.7 k/uL (1.0-4.8); Lymphocytes % (A) 7 %; MCH 30.4 pg (25.0-35.0); MCHC 32.2 g/dL (31.0-37.0); MCV 94.4 fL (80.0-100.0); Mean Platelet Volume 8.1; Monocytes # (A) 0.5 k/uL (0-1.0); Monocytes % (A) 6 %; Neutrophils # (A) 7.7 k/uL (1.3-7.7); Neutrophils % (A) 85 %; Platelet Count 245 k/uL (150-450); RBC 3.29 m/uL (4.30-5.90); RDW 13.8 % (11.5-15.5); WBC 9.1 k/uL (3.8-10.6)
[2021-01-04 09:39] LABS: INR 1.1 (<1.2); Partial Thromboplastin Time 23.8 sec (22.0-30.0); Prothrombin Time 11.2 sec (9.0-12.0)
--- NOTE | 2021-01-04 09:41 | XR ---
EXAMINATION TYPE: XR chest 2V DATE OF EXAM: 01/04/2021 CLINICAL HISTORY: Chest Pain. Shortness of breath. TECHNIQUE: Frontal and lateral view of the chest. COMPARISON: 12/23/2020 FINDINGS: The cardiomediastinal silhouette is within normal limits for size. Pulmonary vasculature i s normal. There are new moderate focal airspace opacities over the bilateral upper lobes. The airspac e opacity over the lung bases are mildly improved versus 12/23/2020. No pleural effusion. No pneumoth orax seen. No acute displaced osseous fracture. IMPRESSION: 1. New moderate focal airspace opacities of the bilateral upper lobes. Findings likely represent mult ilobar pneumonia. 2. Mildly improved airspace opacities over the lung bases versus 12/23/2020.
[2021-01-04 09:46] LABS: Albumin 3.2 g/dL (3.5-5.0); Calcium 8.2 mg/dL (8.4-10.2); Magnesium 2.7 mg/dL (1.6-2.3); Potassium 5.3 mmol/L (3.5-5.1); Total Bilirubin 0.6 mg/dL (0.2-1.3); Total Protein 6.9 g/dL (6.3-8.2)
[2021-01-04] MEDS ORDERED: FUROSEMIDE 10 MG/ML 4 ML VIAL IV STA (10:20)
[2021-01-04] MEDS ORDERED: INSULIN REGULAR 100 UNIT/ML VIAL IV ONE (10:20)
[2021-01-04] MEDS ORDERED: ACETAMINOPHEN TAB 500 MG TAB PO STA (10:31)
[2021-01-04] MEDS ORDERED: NALOXONE 0.4 MG/ML 1 ML VIAL IV PRN (11:35)
[2021-01-04 12:18] LABS: Glucose,Whole Blood 315 mg/dL (75-99)
--- NOTE | 2021-01-04 12:44 | US ---
EXAMINATION TYPE: US venous doppler duplex LE LT DATE OF EXAM: 01/04/2021 9:14 AM COMPARISON: Bilateral lower extremity ultrasound December 22, 2020 CLINICAL HISTORY: swelling. SWELLING FOR A LONG TIME, NO H/O DVT SIDE PERFORMED: LEFT TECHNIQUE: The lower extremity deep venous system is examined utilizing real time linear array sonog german with graded compression, doppler sonography and color-flow sonography. VESSELS IMAGED: Common Femoral Vein Deep Femoral Vein Greater Saphenous Vein * Femoral Vein Popliteal Vein Small Saphenous Vein * Proximal Calf Veins (* superficial vessels) Left Leg: Negative for DVT Grayscale, color doppler, spectral doppler imaging performed of the deep veins of the bilateral lower extremities. There is normal flow, compressibility, vascular waveforms. IMPRESSION: No ultrasound evidence for acute DVT in either lower extremity.
[2021-01-04] MEDS ORDERED: ONDANSETRON 4 MG TAB PO PRN (12:48)
[2021-01-04] MEDS ORDERED: ALBUTEROL NEBULIZED 2.5 MG/3 ML INHALATION PRN (12:48)
[2021-01-04 12:59] LABS: Glucose,Whole Blood 309 mg/dL (75-99)
[2021-01-04] MEDS ORDERED: predniSONE 20 MG TAB PO SCH (13:00)
[2021-01-04] MEDS: INSULIN ASPART (NovoLOG) 100 UNIT/ML VIAL SQ SCH ×3 (13:01→17:23)
[2021-01-04] MEDS: hydrALAZINE HCL 50 MG TAB PO SCH (13:11)
[2021-01-04] MEDS: DARBEPOETIN ALFA 40 MCG/0.4 ML SYRINGE SQ SCH (15:15)
--- NOTE | 2021-01-04 15:26 | P.HPIM ---
History of Present Illness 50-year-old male came in with the complaints of shortness of breath denied any significant orthopnea or Dyspnea He Does Have History of Her Congestive Failure Chronic Systolic Dysfunction Chest X-Rays Consistent with CHF Patient Does Have Elevated JVD As Well As Elevated BNP Patient Was Started on IV Lasix. Patient Was Recently Hospitalized Was Discharged Home Patient Had an MRSA Infection for Which Patient Came to Infusion Center for IV antibiotics and found to be hypoxic with his of which patient was sent to ER. Patient has multiple other medical problems. A she was recently discharged for from the hospital after he was treated for bilateral lower extremity superficial ulcerations and MRSA infection. Patient was also treated for acute kidney injury from acute interstitial nephritis and was on prednisone for that. Review of Systems REVIEW OF SYSTEMS: CONSTITUTIONAL: No fever, no malaise, no fatigue. HEENT: No recent visual problems or hearing problems. Denied any sore throat. CARDIOVASCULAR: No chest pain, orthopnea, PND, no palpitations, no syncope. PULMONARY: No shortness of breath, no cough, no hemoptysis. GASTROINTESTINAL: No diarrhea, no nausea, no vomiting, no abdominal pain. NEUROLOGICAL: No headaches, no weakness, no numbness. HEMATOLOGICAL: Denies any bleeding or petechiae. GENITOURINARY: Denies any burning micturition, frequency, or urgency. MUSCULOSKELETAL/RHEUMATOLOGICAL: Denies any joint pain, swelling, or any muscle pain. ENDOCRINE: Denies any polyuria or polydipsia. The rest of the 14-point review of systems is negative. Past Medical History Past Medical History: Heart Failure, Diabetes Mellitus, Hyperlipidemia, Hypertension Additional Past Medical History / Comment(s): IDDM type II, neuropathy bilateral feet, gout, bilateral eye catarct removal, MRSA . History of Any Multi-Drug Resistant Organisms: MRSA Date of last positivie culture/infection: 10/04/20 MDRO Source:: Right Knee Past Surgical History: Cholecystectomy Additional Past Surgical History / Comment(s): I&D scrotal abscess, I&D back abscess Past Anesthesia/Blood Transfusion Reactions: No Reported Reaction Past Psychological History: Anxiety Smoking Status: Former smoker Past Alcohol Use History: Occasional Past Drug Use History: None Reported - Past Family History Mother Family Medical History: Diabetes Mellitus Father History Unknown: Yes Medications and Allergies Home Medications Medication Instructions Recorded Confirmed Type Omeprazole [PriLOSEC] 40 mg PO -BRKFST #14 capsule. 11/04/19 01/04/21 Rx DULoxetine HCL [Cymbalta] 60 mg PO DAILY 04/01/20 01/04/21 History Acetaminophen Tab [Tylenol] 650 mg PO Q4H PRN 07/25/20 01/04/21 History Albuterol Sulfate [Proair Hfa] 2 puff INHALATION RT-Q6H PRN 07/25/20 01/04/21 History Insulin Glargine,Hum.rec.anlog 56 unit SQ HS 10/03/20 01/04/21 History [Basaglar Kwikpen U-100] Semaglutide [Ozempic] 1 mg SQ TH 10/03/20 01/04/21 History Atorvastatin [Lipitor] 40 mg PO DAILY #30 tab 10/13/20 01/04/21 Rx traZODone HCL [Desyrel] 100 mg PO HS #30 tab 10/13/20 01/04/21 Rx Fluticasone/Salmeterol [Advair 1 puff INHALATION RT-BID 12/16/20 01/04/21 History 250-50 Diskus] Midodrine HCl [ProAmantine] 2.5 mg PO AC-TID 12/16/20 01/04/21 History Nitroglycerin Sl Tabs [Nitrostat] 0.4 mg SL Q5M PRN 12/16/20 01/04/21 History Ondansetron [Zofran] 4 mg PO TID PRN 12/16/20 01/04/21 History amLODIPine [Norvasc] 5 mg PO DAILY 12/16/20 01/04/21 History hydrALAZINE HCL [Apresoline] 50 mg PO AC-TID 12/16/20 01/04/21 History Furosemide [Lasix] 40 mg PO DAILY PRN 30 Days #60 tab 12/29/20 01/04/21 Rx Gabapentin 400 mg PO TID #0 12/29/20 01/04/21 Rx INSULIN ASPART (NovoLOG) [NovoLOG 10 unit SQ AC-TID 30 Days #5 vial 12/29/20 01/04/21 Rx (formulary)] guaiFENesin-Coden 100-10MG/5ML 10 ml PO TID #100 ml 12/29/20 01/04/21 Rx [Robitussin AC] predniSONE [Deltasone] 40 mg PO DAILY 30 Days #60 tab 12/29/20 01/04/21 Rx Darbepoetin Andrez [Aranesp] 40 mcg SQ MO 01/04/21 01/04/21 History INSULIN ASPART (NovoLOG) [NovoLOG See Protocol SQ ACHS 01/04/21 01/04/21 History (formulary)] Allergies Allergy/AdvReac Type Severity Reaction Status Date / Time No Known Allergies Allergy Verified 01/04/21 11:46 Physical Exam Vitals: Vital Signs Temp Pulse Resp BP Pulse Ox 01/04/21 14:31 98.3 F 87 20 182/90 94 L 01/04/21 13:03 90 20 165/90 93 L 01/04/21 10:33 90 22 178/95 95 01/04/21 09:04 98.7 F 89 20 218/112 84 L Intake and Output 01/04/21 01/04/21 01/04/21 06:59 14:59 22:59 Output Total 1300 Balance -1300 Output: Urine 1300 Other: Weight 99.79 kg PHYSICAL EXAMINATION: GENERAL: The patient is alert and oriented x3, not in any acute distress. Well developed, well nourished. HEENT: Pupils are round and equally reacting to light. EOMI. No scleral icterus. No conjunctival pallor. Normocephalic, atraumatic. No pharyngeal erythema. No thyromegaly. CARDIOVASCULAR: S1 and S2 present. No murmurs, rubs, or gallops. PULMONARY: Chest is clear to auscultation, no wheezing or crackles. ABDOMEN: Soft, nontender, nondistended, normoactive bowel sounds. No palpable organomegaly. MUSCULOSKELETAL: No joint swelling or deformity. EXTREMITIES: No cyanosis, clubbing, or pedal edema. NEUROLOGICAL: Gross neurological examination did not reveal any focal deficits. SKIN: No rashes. Results CBC & Chem 7: 01/04/21 09:18 01/04/21 09:18 Labs: Abnormal Lab Results - Last 24 Hours (Table) 01/04/21 01/04/21 01/04/21 Range/Units 09:08 09:18 09:18 RBC 3.29 L (4.30-5.90) m/uL Hgb 10.0 L (13.0-17.5) gm/dL Hct 31.1 L (39.0-53.0) % Lymphocytes # 0.7 L (1.0-4.8) k/uL Sodium 128 L (137-145) mmol/L Potassium 5.3 H (3.5-5.1) mmol/L Chloride 92 L (98-107) mmol/L BUN 70 H (9-20) mg/dL Creatinine 2.34 H (0.66-1.25) mg/dL Glucose 601 H* (74-99) mg/dL POC Glucose (mg/dL) 581 H (75-99) mg/dL Calcium 8.2 L (8.4-10.2) mg/dL Magnesium 2.7 H (1.6-2.3) mg/dL ALT 70 H (4-49) U/L Alkaline Phosphatase 366 H (38-126) U/L Albumin 3.2 L (3.5-5.0) g/dL 01/04/21 01/04/21 Range/Units 11:52 12:57 RBC (4.30-5.90) m/uL Hgb (13.0-17.5) gm/dL Hct (39.0-53.0) % Lymphocytes # (1.0-4.8) k/uL Sodium (137-145) mmol/L Potassium (3.5-5.1) mmol/L Chloride (98-107) mmol/L BUN (9-20) mg/dL Creatinine (0.66-1.25) mg/dL Glucose (74-99) mg/dL POC Glucose (mg/dL) 315 H 309 H (75-99) mg/dL Calcium (8.4-10.2) mg/dL Magnesium (1.6-2.3) mg/dL ALT (4-49) U/L Alkaline Phosphatase (38-126) U/L Albumin (3.5-5.0) g/dL Assessment and Plan Plan: -Possible congestive heart failure chronic diastolic dysfunction with acute exacerbation patient will be continued on IV Lasix, cardiology was consulted. She had an EF of around 50-52% -Recent a history of ALLERGIC interstitial nephritis with the elevated creatinine present creatinine is 2.4 which is an improvement from 2.9. Patient is on systemic steroids which will be continued. Nephrology will be consulted -Type 2 diabetes mellitus with highly elevated blood sugars and hyperglycemic because of systemic steroids patient will continue on present regimen along with the sliding scale insulin titration depending on the blood sugars patient blood sugars on admission was around 600. -Hyperkalemia secondary to renal failure -Hyponatremia: Hypervolemic hyponatremia expected to improve with Lasix -Hyperlipidemia -Hypertension -Recent MRSA infection bilateral lower extremity ulcerations for which patient the is receiving daptomycin as an outpatient which will be resumed and infecti ous disease will be consulted -Diabetic peripheral neuropathy -COPD without any acute exacerbation -DVT prophylaxis: Subcutaneous heparin
[2021-01-04] MEDS: guaiFENesin-Coden 100-10MG/5ML 10 ML CUP PO SCH ×2 (16:56→22:34)
[2021-01-04] MEDS: HEPARIN SODIUM,PORCINE/PF 5,000 UNIT/0.5 ML SYRINGE SQ SCH ×2 (16:56→23:22)
[2021-01-04 17:04] LABS: Glucose,Whole Blood 572 mg/dL (75-99)
[2021-01-04 18:23] LABS: Glucose,Whole Blood 393 mg/dL (75-99)
[2021-01-04 20:06] LABS: Glucose,Whole Blood 62 mg/dL (75-99)
[2021-01-04 20:30] LABS: Glucose,Whole Blood 165 mg/dL (75-99)
[2021-01-04] MEDS: SYMBICORT 80-4.5 MCG INHALER INHALATION SCH (20:31)
[2021-01-04] MEDS ORDERED: FUROSEMIDE 10 MG/ML 10 ML VIAL IV SCH (21:00)
[2021-01-04] MEDS ORDERED: INSULIN DETEMIR (LEVEMIR) 100 UNIT/ML SYR SQ SCH (21:00)
[2021-01-04] MEDS ORDERED: FUROSEMIDE 10 MG/ML 4 ML VIAL IV SCH (21:00)
[2021-01-04] MEDS: traZODone HCL 100 MG TAB PO SCH (21:23)
[2021-01-04] MEDS: MIDODRINE 5 MG TAB PO SCH (22:34)
[2021-01-04 23:13] LABS: Glucose,Whole Blood 137 mg/dL (75-99)
[2021-01-05 02:26] LABS: Glucose,Whole Blood 169 mg/dL (75-99)
[2021-01-05] MEDS: INSULIN ASPART (NovoLOG) 100 UNIT/ML VIAL SQ SCH ×7 (03:17→20:27)
[2021-01-05 06:07] LABS: Glucose,Whole Blood 181 mg/dL (75-99)
[2021-01-05] MEDS: hydrALAZINE HCL 50 MG TAB PO SCH ×3 (06:23→16:42)
[2021-01-05] MEDS: PANTOPRAZOLE 40 MG TABLET PO SCH (06:23)
[2021-01-05] MEDS: MIDODRINE 5 MG TAB PO SCH (06:24)
--- NOTE | 2021-01-05 07:21 | P.PN ---
Subjective 50-year-old male came in with the complaints of shortness of breath denied any significant orthopnea or Dyspnea He Does Have History of Her Congestive Failure Chronic Systolic Dysfunction Chest X-Rays Consistent with CHF Patient Does Have Elevated JVD As Well As Elevated BNP Patient Was Started on IV Lasix. Patient Was Recently Hospitalized Was Discharged Home Patient Had an MRSA Infection for Which Patient Came to Infusion Center for IV antibiotics and found to be hypoxic with his of which patient was sent to ER. Patient has multiple other medical problems. A she was recently discharged for from the hospital after he was treated for bilateral lower extremity superficial ulcerations and MRSA infection. Patient was also treated for acute kidney injury from acute interstitial nephritis and was on prednisone for that. 01/05/2021 Patient the blood sugars have come down quite a bit patient can urine output. We'll cut down the Lasix dose to 40 mg twice a day. Patient the became hypoglycemic because of that reason we will continue to monitor his blood sugars patient's long-acting insulin will be changed to 40 units from 57 units. Patient remains on daptomycin. Constitutional: Denied any fatigue denied any fever. Cardio vascular: denied any chest pain, palpitations Gastrointestinal denied any nausea vomiting Pulmonary: Denied any shortness of breath cough Neurologic denied any new focal deficits All inpatient medications were reviewed and appropriate changes in these medications as dictated in the interval history and assessment and plan. Objective - Vital Signs Vital signs: Vital Signs Temp 96.9 F L 01/05/21 04:00 Pulse 75 01/05/21 04:00 Resp 18 01/05/21 04:00 BP 190/89 01/05/21 04:00 Pulse Ox 92 L 01/05/21 04:00 Intake & Output 01/04/21 01/05/21 01/05/21 18:59 06:59 18:59 Intake Total 240 Output Total 1300 2500 Balance -1300 -2260 Weight 99.79 kg 94.9 kg Intake: Oral 240 Output: Urine 1300 2500 Other: Voiding Method Urinal # Voids 1 - Exam PHYSICAL EXAMINATION: GENERAL: The patient is alert and oriented x3, not in any acute distress. Well developed, well nourished. HEENT: Pupils are round and equally reacting to light. EOMI. No scleral icterus. No conjunctival pallor. Normocephalic, atraumatic. No pharyngeal erythema. No thyromegaly. CARDIOVASCULAR: S1 and S2 present. No murmurs, rubs, or gallops. PULMONARY: Chest is clear to auscultation, no wheezing or crackles. ABDOMEN: Soft, nontender, nondistended, normoactive bowel sounds. No palpable organomegaly. MUSCULOSKELETAL: No joint swelling or deformity. EXTREMITIES: No cyanosis, clubbing, pedal edema resolved NEUROLOGICAL: Gross neurological examination did not reveal any focal deficits. SKIN: No rashes. - Labs CBC & Chem 7: 01/04/21 09:18 01/04/21 09:18 Labs: Abnormal Lab Results - Last 24 Hours (Table) 01/04/21 01/04/21 01/04/21 Range/Units 09:08 09:18 09:18 RBC 3.29 L (4.30-5.90) m/uL Hgb 10.0 L (13.0-17.5) gm/dL Hct 31.1 L (39.0-53.0) % Lymphocytes # 0.7 L (1.0-4.8) k/uL Sodium 128 L (137-145) mmol/L Potassium 5.3 H (3.5-5.1) mmol/L Chloride 92 L (98-107) mmol/L BUN 70 H (9-20) mg/dL Creatinine 2.34 H (0.66-1.25) mg/dL Glucose 601 H* (74-99) mg/dL POC Glucose (mg/dL) 581 H (75-99) mg/dL Calcium 8.2 L (8.4-10.2) mg/dL Magnesium 2.7 H (1.6-2.3) mg/dL ALT 70 H (4-49) U/L Alkaline Phosphatase 366 H (38-126) U/L Albumin 3.2 L (3.5-5.0) g/dL 01/04/21 01/04/21 01/04/21 Range/Units 11:52 12:57 17:02 RBC (4.30-5.90) m/uL Hgb (13.0-17.5) gm/dL Hct (39.0-53.0) % Lymphocytes # (1.0-4.8) k/uL Sodium (137-145) mmol/L Potassium (3.5-5.1) mmol/L Chloride (98-107) mmol/L BUN (9-20) mg/dL Creatinine (0.66-1.25) mg/dL Glucose (74-99) mg/dL POC Glucose (mg/dL) 315 H 309 H 572 H (75-99) mg/dL Calcium (8.4-10.2) mg/dL Magnesium (1.6-2.3) mg/dL ALT (4-49) U/L Alkaline Phosphatase (38-126) U/L Albumin (3.5-5.0) g/dL 01/04/21 01/04/21 01/04/21 Range/Units 18:21 20:05 20:28 RBC (4.30-5.90) m/uL Hgb (13.0-17.5) gm/dL Hct (39.0-53.0) % Lymphocytes # (1.0-4.8) k/uL Sodium (137-145) mmol/L Potassium (3.5-5.1) mmol/L Chloride (98-107) mmol/L BUN (9-20) mg/dL Creatinine (0.66-1.25) mg/dL Glucose (74-99) mg/dL POC Glucose (mg/dL) 393 H 62 L 165 H (75-99) mg/dL Calcium (8.4-10.2) mg/dL Magnesium (1.6-2.3) mg/dL ALT (4-49) U/L Alkaline Phosphatase (38-126) U/L Albumin (3.5-5.0) g/dL 01/04/21 01/05/21 01/05/21 Range/Units 23:11 02:05 06:06 RBC (4.30-5.90) m/uL Hgb (13.0-17.5) gm/dL Hct (39.0-53.0) % Lymphocytes # (1.0-4.8) k/uL Sodium (137-145) mmol/L Potassium (3.5-5.1) mmol/L Chloride (98-107) mmol/L BUN (9-20) mg/dL Creatinine (0.66-1.25) mg/dL Glucose (74-99) mg/dL POC Glucose (mg/dL) 137 H 169 H 181 H (75-99) mg/dL Calcium (8.4-10.2) mg/dL Magnesium (1.6-2.3) mg/dL ALT (4-49) U/L Alkaline Phosphatase (38-126) U/L Albumin (3.5-5.0) g/dL Assessment and Plan Plan: -Possible congestive heart failure chronic diastolic dysfunction with acute ex acerbation patient will be continued on IV Lasix, cardiology was consulted. She had an EF of around 50-55% -Recent a history of ALLERGIC interstitial nephritis with the elevated creatinine present creatinine is 2.4 which is an improvement from 2.9. Patient is on systemic steroids which will be continued. Nephrology was consulted -Type 2 diabetes mellitus with highly elevated blood sugars and hyperglycemic on admission presently hyperglycemic patient's long-acting insulin will be cut down to 40 units as mentioned above -Hyperkalemia secondary to renal failure -Hyponatremia: Hypervolemic hyponatremia expected to improve with Lasix labs from today are still pending -Hyperlipidemia -Hypertension -Recent MRSA infection bilateral lower extremity ulcerations for which patient the is receiving daptomycin as an outpatient which will be resumed and infectious disease will be consulted -Diabetic peripheral neuropathy -COPD without any acute exacerbation -DVT prophylaxis: Subcutaneous heparin
--- NOTE | 2021-01-05 07:24 | ECHOF ---
Referral Reason:chf MEASUREMENTS -------- HEIGHT: 170.2 cm WEIGHT: 99.8 kg BP: RVIDd: 3.0 cm (< 3.3) IVSd: 1.2 cm (0.6 - 1.1) LVIDd: 5.0 cm (3.9 - 5.3) LVPWd: 1.1 cm (0.6 - 1.1) IVSs: 1.4 cm LVIDs: 4.2 cm LVPWs: 1.3 cm LA Diam: 4.7 cm (2.7 - 3.8) LAESV Index (A-L): 30.85 ml/m Ao Diam: 2.9 cm (2.0 - 3.7) AV Cusp: 1.7 cm (1.5 - 2.6) LA Diam: 4.0 cm (2.7 - 3.8) MV EXCURSION: 23.601 mm (> 18.000) MV EF SLOPE: 140 mm/s (70 - 150) EPSS: 0.9 cm MV E Tawanda: 1.28 m/s MV DecT: 167 ms MV A Tawanda: 1.07 m/s MV E/A Ratio: 1.20 RAP: 5.00 mmHg RVSP: 45.03 mmHg FINDINGS -------- Sinus rhythm. This was a technically adequate study. The left ventricular size is normal. Left ventricular wall thickness is normal. Overall left vent ricular systolic function is normal with, an EF between 55 - 60 %. The right ventricle is normal in size. LA is midly dilated 29-33ml/m2. The right atrial size is normal. There is mild aortic valve sclerosis. There is [id number] aortic regurgitation. Mild mitral annular calcification present. Mild mitral regurgitation is present. The tricuspid valve appears structurally normal. Mild tricuspid regurgitation present. There is m ild pulmonary hypertension. The right ventricular systolic pressure, as measured by Doppler, is 45. 03mmHg. Trace/mild (physiologic) pulmonic regurgitation. The aortic root size is normal. There is a trivial pericardial effusion present. CONCLUSIONS -------- 1. Left ventricular wall thickness is normal. 2. Overall left ventricular systolic function is normal with, an EF between 55 - 60 %. 3. LA is midly dilated 29-33ml/m2. 4. There is mild aortic valve sclerosis. 5. There is [id number] aortic regurgitation. 6. Mild mitral regurgitation is present. 7. Mild tricuspid regurgitation present. 8. There is mild pulmonary hypertension. 9. Trace/mild (physiologic) pulmonic regurgitation. 10. There is a trivial pericardial effusion present. BPM ARCHITECT: Freya Allen RDCS
[2021-01-05] MEDS: SYMBICORT 80-4.5 MCG INHALER INHALATION SCH ×2 (07:26→20:47)
[2021-01-05 08:01] LABS: HCT 31.2 % (39.0-53.0); MCH 29.8 pg (25.0-35.0); MCHC 31.9 g/dL (31.0-37.0); MCV 93.3 fL (80.0-100.0); Mean Platelet Volume 8.2; Platelet Count 250 k/uL (150-450); RBC 3.34 m/uL (4.30-5.90); RDW 14.2 % (11.5-15.5); WBC 8.4 k/uL (3.8-10.6)
[2021-01-05] MEDS: FUROSEMIDE 10 MG/ML 4 ML VIAL IV SCH ×2 (08:44→20:27)
[2021-01-05] MEDS: amLODIPine 10 MG TAB PO SCH (08:44)
[2021-01-05] MEDS: ATORVASTATIN 40 MG TAB PO SCH (08:44)
[2021-01-05] MEDS: DULoxetine HCL 60 MG CAPSULE.DR PO SCH (08:45)
[2021-01-05] MEDS: HEPARIN SODIUM,PORCINE/PF 5,000 UNIT/0.5 ML SYRINGE SQ SCH ×3 (08:45→23:14)
[2021-01-05] MEDS ORDERED: predniSONE 20 MG TAB PO SCH (09:00)
[2021-01-05] MEDS ORDERED: amLODIPine 5 MG TAB PO SCH (09:00)
[2021-01-05] MEDS: guaiFENesin-Coden 100-10MG/5ML 10 ML CUP PO SCH ×3 (09:40→22:20)
[2021-01-05] MEDS: GABAPENTIN 100 MG CAP PO SCH ×3 (09:40→20:27)
[2021-01-05 11:45] LABS: Glucose,Whole Blood 482 mg/dL (75-99)
[2021-01-05 12:41] LABS: Hemoglobin A1C 13.1 % (4.0-6.0)
--- NOTE | 2021-01-05 12:42 | CDI ---
Documentation Clarification Form Date: 01/05/2021 11:54:02 AM From: Belkys Gaytan RN, CCDS Admit Date: 01/04/2021 11:35:00 AM Patient Name: Marquez Squires Visit Number: [id number] Discharge Date: ATTENTION: The Clinical Documentation Specialists (CDI) and [facility] Coding Staff appreciate your assistance in clarifying documentation. Please respond to the clarification below the line at the bottom and electronically sign. The CDI & [facility] Coding staff will review the response and follow-up if needed. Please note: Queries are made part of the Legal Health Record. If you have any questions, please contact the author of this message via ITS. Dr. Pasquale Pollock Your patient has worsening dyspnea over the past 3 days prior to admit. His oxygen saturation on room air was 84 % on arrival to ED on 01/04/21. Based on this information and the findings below, is there an additional diagnosis that is clinically appropriate for this patient? History/Risk Factors: Heart Failure, Diabetes Mellitus, Hypertension Tobacco use: Former smoker Clinical Indicators: 50-year-old male present to ED on 01/04 with complaints of chest pain and dyspnea. In the ED he was found to be hypoxic and hypertensive at the Infusion Center. 01/04 Respiratory exam: respiratory distress, rales 01/04 Vital signs: 218/112 89 20 98.7 84 % RA, 178/85 90 22 95 % 6/L NC; 165/90 90 20 93 % 4/L NC 01/04 CXR: New moderate focal airspace opacities of the bilateral upper lobes. Findings likely represent multilobar pneumonia 01/04 ECHO: EF between 55-60 % 01/04 BMI 8050 Treatment: Breathing TX: Ventolin 2.5 mg Inhalation Q6 PRN Monitor O2 Sat's (titrate) Symbicort 80-4.5 Mcg Inhaler BID Lasix 40 MG IV Q 12 HR Prednisone 20MG PO Daily 01/04 (DC) Prednisone 40 mg PO Daily Is there an additional diagnosis that is clinically appropriate for this patient? [ ] Acute Hypoxic Respiratory Failure (pO2 <60 mm Hg or SpO2 <91% on room air) [ ] Acute Hypercapnia Respiratory Failure (pCO2 >50 and pH <7.35) [ ] Other Diagnosis, please specify [ ] Unable to determine (Template Last Revised: November 2020) Impression is as per my note patient is hypoxic unless he is on 3 L cannot say hypoxic respiratory failure. MTDD
--- NOTE | 2021-01-05 13:59 | P.GSCN ---
History of Present Illness Consult date: 01/05/21 History of present illness: CHIEF COMPLAINT: Shortness of breath Reason for consult left calf wound HISTORY OF PRESENT ILLNESS: This is a 50-year-old male with a known history of congestive heart failure, diabetes, ALLERGIC interstitial nephritis and history of wound infections with MRSA. Patient admitted to the hospital with CHF exacerbation and currently on IV Lasix. Surgical consult was placed in regards to wounds. Patient has multiple wounds on his legs and his arms. The left calf wound is the most significant with increase in pain patient reports as well as redness and. Patient has had no drainage from the wound. There is an old scab there. Patient does report that he does pick at his skin. He denies any fever, chills or sweats. Denies any nausea or vomiting. Denies any bowel changes or urinary symptoms. Patient seen and examined with Dr. Mendez PAST MEDICAL HISTORY: See list. PAST SURGICAL HISTORY: See list. MEDICATIONS: See list. ALLERGIES: See list. SOCIAL HISTORY: No illicit drug use. REVIEW OF SYSTEMS: CONSTITUTIONAL: Denies fever or chills. HEENT: Denies blurred vision, vision changes, or eye pain. Denies hemoptysis CARDIOVASCULAR: Denies chest pain or pressure. RESPIRATORY: No shortness of breath. GASTROINTESTINAL: See HPI for pertinent findings HEMATOLOGIC: Denies bleeding disorders. GENITOURINARY: Denies any blood in urine or increased urinary frequency. SKIN: Denies pruitis. Denies rash. PHYSICAL EXAM: VITAL SIGNS: Reviewed GENERAL: Well-developed in no acute distress. HEENT: No sclera icterus. Extraocular movements grossly intact. Moist buccal mucosa. Head is atraumatic, normocephalic. No nasal drainage. ABDOMEN: Soft. Nondistended. Tenderness with palpation to right lower quadrant. NEUROLOGIC: Alert and oriented. Cranial nerves II through XII grossly intact. Skin exam patient has multiple wounds and scabs noted on the arms and legs. The left calf there is a 2 cm circular scab with cellulitis and erythema changes around it. Tender with palpation and area of induration noted. No drainage. LABORATORY DATA: WBC 8.4 hemoglobin 10 platelets 250 glucose 482 A1c 13.1 IMAGING: ASSESSMENT: 1. Left calf wound and cellulitis PLAN: -No surgical intervention planned -Continue antibiotics -Agree with ID consult -Educated patient not to scratch or pick at his skin Physician Night Shift note has been reviewed by physician. Signing provider agrees with the documented findings, assessment, and plan of care. Past Medical History Past Medical History: Heart Failure, Diabetes Mellitus, Hyperlipidemia, Hypertension Additional Past Medical History / Comment(s): IDDM type II, neuropathy bilateral feet, gout, bilateral eye catarct removal, MRSA . History of Any Multi-Drug Resistant Organisms: MRSA Year Discovered:: 12/17/20 MDRO Source:: Right Leg Past Surgical History: Cholecystectomy Additional Past Surgical History / Comment(s): I&D scrotal abscess, I&D back abscess Past Anesthesia/Blood Transfusion Reactions: No Reported Reaction Smoking Status: Former smoker - Past Family History Mother Family Medical History: Diabetes Mellitus Father History Unknown: Yes Medications and Allergies Home Medications Medication Instructions Recorded Confirmed Type Omeprazole [PriLOSEC] 40 mg PO AC-BRKFST #14 capsule. 11/04/19 01/04/21 Rx DULoxetine HCL [Cymbalta] 60 mg PO DAILY 04/01/20 01/04/21 History Acetaminophen Tab [Tylenol] 650 mg PO Q4H PRN 07/25/20 01/04/21 History Albuterol Sulfate [Proair Hfa] 2 puff INHALATION RT-Q6H PRN 07/25/20 01/04/21 History Insulin Glargine,Hum.rec.anlog 56 unit SQ HS 10/03/20 01/04/21 History [Basaglar Kwikpen U-100] Semaglutide [Ozempic] 1 mg SQ TH 10/03/20 01/04/21 History Atorvastatin [Lipitor] 40 mg PO DAILY #30 tab 10/13/20 01/04/21 Rx traZODone HCL [Desyrel] 100 mg PO HS #30 tab 10/13/20 01/04/21 Rx Fluticasone/Salmeterol [Advair 1 puff INHALATION RT-BID 12/16/20 01/04/21 History 250-50 Diskus] Midodrine HCl [ProAmantine] 2.5 mg PO AC-TID 12/16/20 01/04/21 History Nitroglycerin Sl Tabs [Nitrostat] 0.4 mg SL Q5M PRN 12/16/20 01/04/21 History Ondansetron [Zofran] 4 mg PO TID PRN 12/16/20 01/04/21 History amLODIPine [Norvasc] 5 mg PO DAILY 12/16/20 01/04/21 History hydrALAZINE HCL [Apresoline] 50 mg PO AC-TID 12/16/20 01/04/21 History Furosemide [Lasix] 40 mg PO DAILY PRN 30 Days #60 tab 12/29/20 01/04/21 Rx Gabapentin 400 mg PO TID #0 12/29/20 01/04/21 Rx INSULIN ASPART (NovoLOG) [NovoLOG 10 unit SQ AC-TID 30 Days #5 vial 12/29/20 01/04/21 Rx (formulary)] guaiFENesin-Coden 100-10MG/5ML 10 ml PO TID #100 ml 12/29/20 01/04/21 Rx [Robitussin AC] predniSONE [Deltasone] 40 mg PO DAILY 30 Days #60 tab 12/29/20 01/04/21 Rx Darbepoetin Andrez [Aranesp] 40 mcg SQ MO 01/04/21 01/04/21 History INSULIN ASPART (NovoLOG) [NovoLOG See Protocol SQ ACHS 01/04/21 01/04/21 History (formulary)] Allergies Allergy/AdvReac Type Severity Reaction Status Date / Time No Known Allergies Allergy Verified 01/04/21 11:46 Surgical - Exam Vital Signs Temp Pulse Resp BP Pulse Ox 98.7 F 89 20 218/112 84 L 01/04/21 09:04 01/04/21 09:04 01/04/21 09:04 01/04/21 09:04 01/04/21 09:04 Results - Labs 01/05/21 06:16 01/04/21 09:18 Abnormal Lab Results - Last 24 Hours (Table) 01/04/21 01/04/21 01/04/21 Range/Units 17:02 18:21 20:05 RBC (4.30-5.90) m/uL Hgb (13.0-17.5) gm/dL Hct (39.0-53.0) % POC Glucose (mg/dL) 572 H 393 H 62 L (75-99) mg/dL Hemoglobin A1c (4.0-6.0) % 01/04/21 01/04/21 01/05/21 Range/Units 20:28 23:11 02:05 RBC (4.30-5.90) m/uL Hgb (13.0-17.5) gm/dL Hct (39.0-53.0) % POC Glucose (mg/dL) 165 H 137 H 169 H (75-99) mg/dL Hemoglobin A1c (4.0-6.0) % 01/05/21 01/05/21 01/05/21 Range/Units 06:06 06:16 06:23 RBC 3.34 L (4.30-5.90) m/uL Hgb 10.0 L (13.0-17.5) gm/dL Hct 31.2 L (39.0-53.0) % POC Glucose (mg/dL) 181 H (75-99) mg/dL Hemoglobin A1c 13.1 H (4.0-6.0) % 01/05/21 Range/Units 11:43 RBC (4.30-5.90) m/uL Hgb (13.0-17.5) gm/dL Hct (39.0-53.0) % POC Glucose (mg/dL) 482 H (75-99) mg/dL Hemoglobin A1c (4.0-6.0) % Diabetes panel 01/05/21 Range/Units 06:23 Hemoglobin A1c 13.1 H (4.0-6.0) %
[2021-01-05 14:00] VITALS: BMI 32.8
--- NOTE | 2021-01-05 14:35 | P.CRDCN ---
History of Present Illness History of present illness: HISTORY OF PRESENT ILLNESS: This is a 50-year-old male with a past medical history significant for diabetes mellitus, hyperlipidemia, chronic kidney disease, diastolic congestive heart failure, former nicotine dependence, recurrent syncope, and orthostatic hypotension. Patient follows in the office with Dr. Dickson. We have been asked to see the patient in consultation for congestive heart failure. Patient presented to an infusion center for IV antibiotics, found to be hypoxic and sent to the ER. He states he experiences exertional shortness of breath, which started a wee k ago, and progressively getting worse. He also endorses some chest pain, radiating to his left shoulder, which has resolved. Chest pain worsens with a deep breath. It is non-exertional. He denies associated symptoms. It relieves with rest. He was recently discharged for from the hospital after he was treated for bilateral lower extremity superficial ulcerations and MRSA infection. Patient was also treated for acute kidney injury from acute interstitial nephritis and was placed on prednisone. Patient states he has been drinking about 4 water bottles a day. Patient denies symptoms of orthopnea, PND. He is able to sleep flat with 1 pillow without any shortness of breath. Since receiving Lasix he does feel better. Patient examined at the bedside, no acute distress. DIAGNOSTICS Echocardiogram EF 55-60%, mild to moderate aortic regurgitation, mild MR, mild TR, mild pulmonary hypertension EKG reveals sinus mechanism with no signs of acute ischemia Chest xray new multifocal airspace opacities of the bilateral below, findings likely represent multi-hold for pneumonia, mildly improved airspace opacities of the lung bases Laboratory data: Troponin negative 1, BNP 8050, sodium was 128, potassium 5.3, serum creatinine 2.34, glucose was 601, COVID-19 negative Current home cardiac medications include hydralazine 50 mg 3 times a day, amlodipine 5 mg daily, midodrine 2.5 mg 3 times a day, Lasix 40 mg daily, atorvastatin 40 mg daily Most recent echocardiogram obtained in October 2020 revealed ejection fraction greater than 55%, trace mitral regurgitation, and mild tricuspid regurgitation Patient underwent dobutamine stress echo in November 2019 which was negative for stress-induced ischemia REVIEW OF SYSTEMS: At the time of my exam: CONSTITUTIONAL: Denies fever or chills. HEENT: Denies blurred vision, vision changes, or eye pain. Denies hemoptysis CARDIOVASCULAR: +chest pain Denies orthopnea. Denies PND. Denies palpitations RESPIRATORY: +exertional shortness of breath. GASTROINTESTINAL: Denies abdominal pain. Denies nausea or vomiting. HEMATOLOGIC: Denies bleeding disorders. GENITOURINARY: Denies any blood in urine. SKIN: Denies pruitis. Denies rash.+bilateral leg wounds PHYSICAL EXAM: VITAL SIGNS: Reviewed. Blood pressure 135/78, heart rate 90, afebrile, maintaining oxygen saturations on room air GENERAL: Well-developed in no acute distress. HEENT: Head is normocephalic. Pupils are equal, round. Sclerae anicteric. Mucous membranes of the mouth are moist. JVD present LUNGS: Respirations even and unlabored. Lungs diminished bilateral bases HEART: Regular rate and rhythm. S1 and S2 heard. ABDOMEN: Soft. Nondistended. Nontender. EXTREMITIES: 2+ pitting edema Left lower extremity. Normal range of motion. No clubbing or cyanosis. Peripheral pulses intact. Wounds to bilateral lower extr emities noted. NEUROLOGIC: Awake and alert. Oriented x 3. ASSESSMENT: Chronic diastolic heart failure EF 55-60% Diabetes mellitus, uncontrolled Hb A1C 13.1 Hypertension, Uncontrolled Hyperlipidemia Lower extremity wounds with MRSA infection Acute on Chronic kidney disease - Nephrology consulted History of dysautonomia, positive tilt table test on 10/06/20 History of orthostatic hypotension Hyperkalemia Hyponatremia PLAN: Patient currently on IV Diuresis- IV Lasix 40mg BID Start Metoprolol tartrate 50mg BID Continue statin and amlodipine Patient does need better blood pressure control and glucose control Nephrology consulted, appreciate recs Patient not on acei/arb due to renal function. If patient better later today, ok to discharge from cardiology perspective and follow up outpatient with Dr. Dickson within 2 weeks Nurse practitioner note has been reviewed by physician. Signing provider agrees with the documented findings, assessment, and plan of care. Past Medical History Past Medical History: Heart Failure, Diabetes Mellitus, Hyperlipidemia, Hype rtension Additional Past Medical History / Comment(s): IDDM type II, neuropathy bilateral feet, gout, bilateral eye catarct removal, MRSA . History of Any Multi-Drug Resistant Organisms: MRSA Date of last positivie culture/infection: 12/17/20 MDRO Source:: Right Leg Past Surgical History: Cholecystectomy Additional Past Surgical History / Comment(s): I&D scrotal abscess, I&D back abscess Past Anesthesia/Blood Transfusion Reactions: No Reported Reaction Smoking Status: Former smoker - Past Family History Mother Family Medical History: Diabetes Mellitus Father History Unknown: Yes Medications and Allergies Home Medications Medication Instructions Recorded Confirmed Type Omeprazole [PriLOSEC] 40 mg PO AC-BRKFST #14 capsule. 11/04/19 01/04/21 Rx DULoxetine HCL [Cymbalta] 60 mg PO DAILY 04/01/20 01/04/21 History Acetaminophen Tab [Tylenol] 650 mg PO Q4H PRN 07/25/20 01/04/21 History Albuterol Sulfate [Proair Hfa] 2 puff INHALATION RT-Q6H PRN 07/25/20 01/04/21 History Insulin Glargine,Hum.rec.anlog 56 unit SQ HS 10/03/20 01/04/21 History [Basaglar Kwikpen U-100] Semaglutide [Ozempic] 1 mg SQ TH 10/03/20 01/04/21 History Atorvastatin [Lipitor] 40 mg PO DAILY #30 tab 10/13/20 01/04/21 Rx traZODone HCL [Desyrel] 100 mg PO HS #30 tab 10/13/20 01/04/21 Rx Fluticasone/Salmeterol [Advair 1 puff INHALATION RT-BID 12/16/20 01/04/21 H istory 250-50 Diskus] Midodrine HCl [ProAmantine] 2.5 mg PO AC-TID 12/16/20 01/04/21 History Nitroglycerin Sl Tabs [Nitrostat] 0.4 mg SL Q5M PRN 12/16/20 01/04/21 History Ondansetron [Zofran] 4 mg PO TID PRN 12/16/20 01/04/21 History amLODIPine [Norvasc] 5 mg PO DAILY 12/16/20 01/04/21 History hydrALAZINE HCL [Apresoline] 50 mg PO AC-TID 12/16/20 01/04/21 History Furosemide [Lasix] 40 mg PO DAILY PRN 30 Days #60 tab 12/29/20 01/04/21 Rx Gabapentin 400 mg PO TID #0 12/29/20 01/04/21 Rx INSULIN ASPART (NovoLOG) [NovoLOG 10 unit SQ AC-TID 30 Days #5 vial 12/29/20 01/04/21 Rx (formulary)] guaiFENesin-Coden 100-10MG/5ML 10 ml PO TID #100 ml 12/29/20 01/04/21 Rx [Robitussin AC] predniSONE [Deltasone] 40 mg PO DAILY 30 Days #60 tab 12/29/20 01/04/21 Rx Darbepoetin Andrez [Aranesp] 40 mcg SQ MO 01/04/21 01/04/21 History INSULIN ASPART (NovoLOG) [NovoLOG See Protocol SQ ACHS 01/04/21 01/04/21 History (formulary)] Allergies Allergy/AdvReac Type Severity Reaction Status Date / Time No Known Allergies Allergy Verified 01/04/21 11:46 Physical Exam Vitals: Vital Signs Temp Pulse Pulse Resp BP BP Pulse Ox 01/05/21 08:00 98 F 94 18 159/74 94 L 01/05/21 07:30 94 L 01/05/21 04:00 96.9 F L 75 18 190/89 92 L 01/05/21 02:00 85 18 01/05/21 00:00 85 18 133/74 95 01/04/21 20:15 97.4 F L 105 H 20 157/75 94 L 01/04/21 20:00 105 H 20 01/04/21 16:54 98.3 F 90 20 177/87 94 L 01/04/21 14:31 98.3 F 87 20 182/90 94 L 01/04/21 13:03 90 20 165/90 93 L 01/04/21 10:33 90 22 178/95 95 Intake and Output 01/04/21 01/05/21 01/05/21 22:59 06:59 14:59 Intake Total 240 420 Output Total 2500 Balance 240 -2500 420 Intake: Oral 240 420 Output: Urine 2500 Other: Voiding Method Urinal # Voids 1 Weight 99.79 kg 94.9 kg Results 01/05/21 06:16 01/04/21 09:18 Cardiac Enzymes 01/04/21 01/04/21 Range/Units 09:18 09:18 AST 36 (17-59) U/L Troponin I <0.012 (0.000-0.034) ng/mL Coagulation 01/04/21 Range/Units 09:18 PT 11.2 (9.0-12.0) sec APTT 23.8 (22.0-30.0) sec CBC 01/04/21 01/05/21 Range/Units 09:18 06:16 WBC 9.1 8.4 (3.8-10.6) k/uL RBC 3.29 L 3.34 L (4.30-5.90) m/uL Hgb 10.0 L 10.0 L (13.0-17.5) gm/dL Hct 31.1 L 31.2 L (39.0-53.0) % Plt Count 245 250 (150-450) k/uL Comprehensive Metabolic Panel 01/04/21 Range/Units 09:18 Sodium 128 L (137-145) mmol/L Potassium 5.3 H (3.5-5.1) mmol/L Chloride 92 L (98-107) mmol/L Carbon Dioxide 29 (22-30) mmol/L BUN 70 H (9-20) mg/dL Creatinine 2.34 H (0.66-1.25) mg/dL Glucose 601 H* (74-99) mg/dL Calcium 8.2 L (8.4-10.2) mg/dL AST 36 (17-59) U/L ALT 70 H (4-49) U/L Alkaline Phosphatase 366 H (38-126) U/L Total Protein 6.9 (6.3-8.2) g/dL Albumin 3.2 L (3.5-5.0) g/dL Current Medications Generic Name Dose Route Start Last Admin Trade Name Freq PRN Reason Stop Dose Admin Acetaminophen 650 mg 01/04/21 12:48 Acetaminophen Tab 325 Mg Tab PO Q4H PRN Mild Pain or Fever > 100.5 Albuterol Sulfate 2.5 mg 01/04/21 12:48 Albuterol Nebulized 2.5 Mg/3 Ml INHALATION RT-Q6H PRN Shortness Of Breath Amlodipine Besylate 10 mg 01/05/21 09:00 01/05/21 08:44 Amlodipine 10 Mg Tab PO 10 mg DAILY LUIZA Administration Atorvastatin Calcium 40 mg 01/05/21 09:00 01/05/21 08:44 Atorvastatin 40 Mg Tab PO 40 mg DAILY LUIZA Administration Budesonide/Formoterol Fumarate 2 puff 01/04/21 20:00 01/05/21 07:26 Symbicort 80-4.5 Mcg Inhaler INHALATION 2 puff RT-BID LUIZA Administration Darbepoetin Andrez 40 mcg 01/04/21 15:00 01/04/21 15:15 Darbepoetin Andrez 40 Mcg/0.4 Ml Syringe SQ 40 mcg MO LUIZA Administration Duloxetine HCl 60 mg 01/05/21 09:00 01/05/21 08:45 Duloxetine Hcl 60 Mg Capsule.Dr PO 60 mg DAILY LUIZA Administration Furosemide 40 mg 01/05/21 09:00 01/05/21 08:44 Furosemide 10 Mg/Ml 4 Ml Vial IV 40 mg Q12HR LUIZA Administration Gabapentin 100 mg 01/05/21 09:00 Gabapentin 100 Mg Cap PO TID LUIZA Guaifenesin/Codeine Phosphate 10 ml 01/04/21 16:00 01/04/21 22:34 Guaifenesin-Coden 100-10mg/5ml 10 Ml Cup PO Not Given TID LUIZA Heparin Sodium (Porcine) 5,000 unit 01/04/21 16:00 01/05/21 08:45 Heparin Sodium,Porcine/Pf 5,000 Unit/0.5 Ml Syringe SQ 5,000 unit Q8HR LUIZA Administration Hydralazine HCl 50 mg 01/04/21 17:30 01/05/21 06:23 Hydralazine Hcl 50 Mg Tab PO 50 mg AC-TID LUIZA Administration Daptomycin 400 mg/ Sodium 50 mls @ 100 mls/hr 01/05/21 09:00 01/05/21 08:45 Chloride IVPB 100 mls/hr DAILY LUIZA Administration Protocol Insulin Aspart 10 unit 01/04/21 17:30 01/04/21 17:09 Insulin Aspart (Novolog) 100 Unit/Ml Vial SQ 10 unit AC-TID LUIZA Administration Insulin Aspart 0 unit 01/04/21 17:30 01/05/21 06:23 Insulin Aspart (Novolog) 100 Unit/Ml Vial SQ 3 unit ACHS LUIZA Administration Protocol Insulin Detemir 40 unit 01/05/21 21:00 Insulin Detemir (Levemir) 100 Unit/Ml Syr SQ HS LUIZA Naloxone HCl 0.2 mg 01/04/21 11:35 Naloxone 0.4 Mg/Ml 1 Ml Vial IV Q2M PRN Opioid Reversal Nitroglycerin 0.4 mg 01/04/21 09:20 Nitroglycerin Sl Tabs 0.4 Mg Tab SUBLINGUAL Q5M PRN Chest Pain Nitroglycerin 0.4 mg 01/04/21 12:48 Nitroglycerin Sl Tabs 0.4 Mg Tab SUBLINGUAL Q5M PRN Chest Pain Patient's Own ( 1 mg 01/07/21 12:00 Semaglutide [Ozempic SQ ] 1 Mg/0.75 Ml Pen. TH [facility] Injctr) Ondansetron HCl 4 mg 01/04/21 12:48 Ondansetron 4 Mg Tab PO TID PRN Nausea Pantoprazole Sodium 40 mg 01/05/21 07:30 01/05/21 06:23 Pantoprazole 40 Mg Tablet PO 40 mg AC-BRKFST LUIZA Administration Prednisone 40 mg 01/05/21 09:00 01/05/21 08:44 Prednisone 20 Mg Tab PO 40 mg DAILY LUIZA Administration Trazodone HCl 100 mg 01/04/21 21:00 01/04/21 21:23 Trazodone Hcl 100 Mg Tab PO 100 mg HS LUIZA Administration Intake and Output 01/04/21 01/05/21 01/05/21 22:59 06:59 14:59 Intake Total 240 420 Output Total 2500 Balance 240 -2500 420 Intake: Oral 240 420 Output: Urine 2500 Other: Voiding Method Urinal # Voids 1 Weight 99.79 kg 94.9 kg 01/05/21 06:16 01/04/21 09:18
[2021-01-05 16:20] LABS: Glucose,Whole Blood >600 mg/dL (75-99)
[2021-01-05 16:20] LABS: Glucose,Whole Blood >600 mg/dL (75-99)
--- NOTE | 2021-01-05 16:38 | CONS ---
CONSULTATION REASON FOR CONSULT: Renal failure. HISTORY OF PRESENT ILLNESS: Patient is a 50-year-old male who was recently admitted to the hospital on 12/16/2020 with significant cellulitis and multiple small abscesses on his legs, particularly the right leg. At that time patient was treated with daptomycin. He had developed acute kidney injury on top of chronic kidney disease with serum creatinine peaking at about 3.29 mg/dL. This was presumed to be secondary to possible allergic interstitial nephritis, as patient did have positive eosinophiles in his urine. He also had serologies done which were all negative. Patient does have underlying CKD with baseline creatinine about 1.7 to 2.5 mg/dL. He had developed volume overload during his hospitalization and was treated with IV diuretics. Patient was admitted to the hospital this time with complaints of worsening shortness of breath. He also had chest pressure which is now resolved. He is maintained on IV Lasix and states he is feeling better. Serum creatinine is 2.34 mg/dL from yesterday, and creatinine was at 2.9 at discharge on 12/29/2020. Patient states that he has good urine output. He was discharged on prednisone from last hospitalization 40 mg daily. PAST MEDICAL HISTORY: Significant for chronic kidney disease, NKF stage IV, type 2 diabetes, hyperlipidemia, hypertension, recent cellulitis, multiple abscesses on both legs, status post antibiotics, history of cataracts, history of scrotal abscess. PAST SURGICAL HISTORY: Cholecystectomy, I and D of scrotal abscess and back abscess. SOCIAL HISTORY: Patient is a former smoker. No history of drug abuse or alcohol abuse. MEDICATIONS: Medications prior to admission included Prilosec, Cymbalta, prednisone, insulin, Ozempic, Lipitor, midodrine, Zofran, Norvasc Nitrostat, hydralazine, Lasix, gabapentin, Aranesp, Robitussin. ALLERGIES: NONE. REVIEW OF SYSTEMS: As per HPI. Other systems negative. PHYSICAL EXAMINATION: Patient is comfortable, awake, not in any acute distress. Blood pressure was 159/74, heart rate 94 per minute. He is afebrile. Examination of the lower extremities shows decreased edema, about 1+ now, with healing of the sores on both legs. Currently the lesions are quite dry and not draining. [employer] INSPECTOR exam is grossly intact. LABS: Sodium 128, potassium 5.3, chloride 92, BUN 70, serum creatinine 2.34 on 01/04/2021. ASSESSMENT: 1. Acute kidney injury from last hospitalization from acute interstitial nephritis, status post prednisone, currently with improving renal function. 2. Chronic kidney disease, stage IIIB, with baseline creatinine about 1.7, GFR 40 to 46 mL/minute previously, but creatinine has been as high as 2.3 and 2.4 mg/dL as well. Etiology is diabetic kidney disease. 3. Lower extremity ulcers with cellulitis, status post daptomycin from last admission. 4. Congestive heart failure, diastolic heart failure, ejection fraction 50% to 55%, status post diuresis, probably worsened with use of prednisone. PLAN: Discontinue prednisone. Continue with IV Lasix for one more day. Check labs in a.m. Discontinue midodrine, as blood pressure has been high, and follow up as outpatient in about one week's time post discharge. Patient will be discharged home on 40 mg of Lasix b.i.d. for a couple of days and then switch to daily after that. Thank you for this consultation. Will continue to follow the patient with you during his hospitalization. MMODL / IJN: [id number] /
[2021-01-05] MEDS: METOPROLOL TARTRATE 50 MG TAB PO SCH ×2 (16:42→20:26)
[2021-01-05] MEDS: INSULIN DETEMIR (LEVEMIR) 100 UNIT/ML SYR SQ SCH ×2 (19:16→20:26)
[2021-01-05 20:01] LABS: Glucose,Whole Blood 485 mg/dL (75-99)
[2021-01-05] MEDS: traZODone HCL 100 MG TAB PO SCH (20:27)
[2021-01-05] MEDS ORDERED: INSULIN DETEMIR (LEVEMIR) 100 UNIT/ML SYR SQ SCH ×2 (21:00)
--- NOTE | 2021-01-05 22:56 | P.CONS ---
History of Present Illness - Reason for Consult Consult date: 01/05/21 MRSA leg infection Requesting physician: Pasquale Pollock - Chief Complaint shortness of breath and chest pain x 1 day - History of Present Illness Patient is a 50-year male who was recently admitted at this facility and was treated for right lower extremity multiple skin and soft tissue lesion with MRSA infection patient did have problem with vancomycin and was treated with IV daptomycin subsequent discharged home to continue with IV daptomycin in the outpatient setting with the patient was currently receiving at [facility] patient presented to [facility] ER yesterday for evaluation of chest pain and shortness of breath that the pain has been getting worse for 3 days before presentation to the hospital patient complaining of shortness of breath on minimal exertion and even at rest also complaining of chest pain more of a dull aching to sharp 3-4 out of 10 no radiation patient denies having any cough or sputum production no nausea vomiting no blood no abdominal pain no diarrhea patient right lower extremity extremity wounds almost drying out however the patient developed another lesion on his left leg for the last 3 days significantly more swollen red and painful patient describing to be more of a dull aching to sharp 4 to 5-10 no relation on presentation to the hospital the patient was afebrile patient did have a normal white count creatinine was 2.34 Covid testing was negative patient has been admitted to hospital for CHF exacerbation and he was continued on daptomycin and infectious disease was consulted for further management of antibiotic therapy. Review of Systems Positive point has been mentioned in the HPI rest of the systems are negative Past Medical History Past Medical History: Heart Failure, Diabetes Mellitus, Hyperlipidemia, Hype rtension Additional Past Medical History / Comment(s): IDDM type II, neuropathy bilateral feet, gout, bilateral eye catarct removal, MRSA . History of Any Multi-Drug Resistant Organisms: MRSA Year Discovered:: 12/17/20 MDRO Source:: Right Leg Past Surgical History: Cholecystectomy Additional Past Surgical History / Comment(s): I&D scrotal abscess, I&D back abscess Past Anesthesia/Blood Transfusion Reactions: No Reported Reaction Smoking Status: Former smoker - Past Family History Mother Family Medical History: Diabetes Mellitus Father History Unknown: Yes Medications and Allergies Home Medications Medication Instructions Recorded Confirmed Type Omeprazole [PriLOSEC] 40 mg PO LUPILLO-BRKFST #14 capsule. 11/04/19 01/04/21 Rx DULoxetine HCL [Cymbalta] 60 mg PO DAILY 04/01/20 01/04/21 History Acetaminophen Tab [Tylenol] 650 mg PO Q4H PRN 07/25/20 01/04/21 History Albuterol Sulfate [Proair Hfa] 2 puff INHALATION RT-Q6H PRN 07/25/20 01/04/21 History Insulin Glargine,Hum.rec.anlog 56 unit SQ HS 10/03/20 01/04/21 History [Basaglar Kwikpen U-100] Semaglutide [Ozempic] 1 mg SQ TH 10/03/20 01/04/21 History Atorvastatin [Lipitor] 40 mg PO DAILY #30 tab 10/13/20 01/04/21 Rx traZODone HCL [Desyrel] 100 mg PO HS #30 tab 10/13/20 01/04/21 Rx Fluticasone/Salmeterol [Advair 1 puff INHALATION RT-BID 12/16/20 01/04/21 History 250-50 Diskus] Midodrine HCl [ProAmantine] 2.5 mg PO AC-TID 12/16/20 01/04/21 History Nitroglycerin Sl Tabs [Nitrostat] 0.4 mg SL Q5M PRN 12/16/20 01/04/21 History Ondansetron [Zofran] 4 mg PO TID PRN 12/16/20 01/04/21 History amLODIPine [Norvasc] 5 mg PO DAILY 12/16/20 01/04/21 History hydrALAZINE HCL [Apresoline] 50 mg PO AC-TID 12/16/20 01/04/21 History Furosemide [Lasix] 40 mg PO DAILY PRN 30 Days #60 tab 12/29/20 01/04/21 Rx Gabapentin 400 mg PO TID #0 12/29/20 01/04/21 Rx INSULIN ASPART (NovoLOG) [NovoLOG 10 unit SQ AC-TID 30 Days #5 vial 12/29/20 01/04/21 Rx (formulary)] guaiFENesin-Coden 100-10MG/5ML 10 ml PO TID #100 ml 12/29/20 01/04/21 Rx [Robitussin AC] predniSONE [Deltasone] 40 mg PO DAILY 30 Days #60 tab 12/29/20 01/04/21 Rx Darbepoetin Andrez [Aranesp] 40 mcg SQ MO 01/04/21 01/04/21 History INSULIN ASPART (NovoLOG) [NovoLOG See Protocol SQ ACHS 01/04/21 01/04/21 History (formulary)] Allergies Allergy/AdvReac Type Severity Reaction Status Date / Time No Known Allergies Allergy Verified 01/04/21 11:46 Physical Exam Vitals: Vital Signs Temp Pulse Pulse Resp BP BP Pulse Ox 01/05/21 07:30 94 L 01/05/21 04:00 96.9 F L 75 18 190/89 92 L 01/05/21 02:00 85 18 01/05/21 00:00 85 18 133/74 95 01/04/21 20:15 97.4 F L 105 H 20 157/75 94 L 01/04/21 20:00 105 H 20 01/04/21 16:54 98.3 F 90 20 177/87 94 L 01/04/21 14:31 98.3 F 87 20 182/90 94 L 01/04/21 13:03 90 20 165/90 93 L 01/04/21 10:33 90 22 178/95 95 01/04/21 09:04 98.7 F 89 20 218/112 84 L Intake and Output 01/04/21 01/05/21 01/05/21 22:59 06:59 14:59 Intake Total 240 420 Output Total 2500 Balance 240 -2500 420 Intake: Oral 240 420 Output: Urine 2500 Other: Voiding Method Urinal # Voids 1 Weight 99.79 kg 94.9 kg GENERAL DESCRIPTION: Middle-aged male lying in bed, no distress. No tachypnea or accessory muscle of respiration use. HEENT: Shows Pallor , no scleral icterus. Oral mucous membrane is dry. No pha ryngeal erythema or thrush NECK: Trachea central, no thyromegaly. LUNGS: Unlabored breathing. decreased breath sounds at base. No wheeze or crackle. HEART: S1, S2, regular rate and rhythm. No loud murmur ABDOMEN: Soft, no tenderness , guarding or rigidity, no organomegaly EXTREMITIES: right leg lesions are drying out , left leg with an area of swelling , redness and induration SKIN: No rash, no masses palpable. NEUROLOGICAL: The patient is awake, alert, oriented x3, mood and affect normal. Results CBC & Chem 7: 01/05/21 06:16 01/05/21 16:32 Labs: Abnormal Lab Results - Last 24 Hours (Table) 01/04/21 01/04/21 01/04/21 Range/Units 09:08 09:18 09:18 RBC 3.29 L (4.30-5.90) m/uL Hgb 10.0 L (13.0-17.5) gm/dL Hct 31.1 L (39.0-53.0) % Lymphocytes # 0.7 L (1.0-4.8) k/uL Sodium 128 L (137-145) mmol/L Potassium 5.3 H (3.5-5.1) mmol/L Chloride 92 L (98-107) mmol/L BUN 70 H (9-20) mg/dL Creatinine 2.34 H (0.66-1.25) mg/dL Glucose 601 H* (74-99) mg/dL POC Glucose (mg/dL) 581 H (75-99) mg/dL Calcium 8.2 L (8.4-10.2) mg/dL Magnesium 2.7 H (1.6-2.3) mg/dL ALT 70 H (4-49) U/L Alkaline Phosphatase 366 H (38-126) U/L Albumin 3.2 L (3.5-5.0) g/dL 01/04/21 01/04/21 01/04/21 Range/Units 11:52 12:57 17:02 RBC (4.30-5.90) m/uL Hgb (13.0-17.5) gm/dL Hct (39.0-53.0) % Lymphocytes # (1.0-4.8) k/uL Sodium (137-145) mmol/L Potassium (3.5-5.1) mmol/L Chloride (98-107) mmol/L BUN (9-20) mg/dL Creatinine (0.66-1.25) mg/dL Glucose (74-99) mg/dL POC Glucose (mg/dL) 315 H 309 H 572 H (75-99) mg/dL Calcium (8.4-10.2) mg/dL Magnesium (1.6-2.3) mg/dL ALT (4-49) U/L Alkaline Phosphatase (38-126) U/L Albumin (3.5-5.0) g/dL 01/04/21 01/04/21 01/04/21 Range/Units 18:21 20:05 20:28 RBC (4.30-5.90) m/uL Hgb (13.0-17.5) gm/dL Hct (39.0-53.0) % Lymphocytes # (1.0-4.8) k/uL Sodium (137-145) mmol/L Potassium (3.5-5.1) mmol/L Chloride (98-107) mmol/L BUN (9-20) mg/dL Creatinine (0.66-1.25) mg/dL Glucose (74-99) mg/dL POC Glucose (mg/dL) 393 H 62 L 165 H (75-99) mg/dL Calcium (8.4-10.2) mg/dL Magnesium (1.6-2.3) mg/dL ALT (4-49) U/L Alkaline Phosphatase (38-126) U/L Albumin (3.5-5.0) g/dL 01/04/21 01/05/21 01/05/21 Range/Units 23:11 02:05 06:06 RBC (4.30-5.90) m/uL Hgb (13.0-17.5) gm/dL Hct (39.0-53.0) % Lymphocytes # (1.0-4.8) k/uL Sodium (137-145) mmol/L Potassium (3.5-5.1) mmol/L Chloride (98-107) mmol/L BUN (9-20) mg/dL Creatinine (0.66-1.25) mg/dL Glucose (74-99) mg/dL POC Glucose (mg/dL) 137 H 169 H 181 H (75-99) mg/dL Calcium (8.4-10.2) mg/dL Magnesium (1.6-2.3) mg/dL ALT (4-49) U/L Alkaline Phosphatase (38-126) U/L Albumin (3.5-5.0) g/dL 01/05/21 Range/Units 06:16 RBC 3.34 L (4.30-5.90) m/uL Hgb 10.0 L (13.0-17.5) gm/dL Hct 31.2 L (39.0-53.0) % Lymphocytes # (1.0-4.8) k/uL Sodium (137-145) mmol/L Potassium (3.5-5.1) mmol/L Chloride (98-107) mmol/L BUN (9-20) mg/dL Creatinine (0.66-1.25) mg/dL Glucose (74-99) mg/dL POC Glucose (mg/dL) (75-99) mg/dL Calcium (8.4-10.2) mg/dL Magnesium (1.6-2.3) mg/dL ALT (4-49) U/L Alkaline Phosphatase (38-126) U/L Albumin (3.5-5.0) g/dL Assessment and Plan Assessment: 1-patient with multiple right lower extremity MRSA since cultures infection which seem to have shown clinical improvement with IV daptomycin however the patient on developing another area of inflammation on the left leg which is indurated and concern for underlying abscess (1) Multiple abscesses of both legs Current Visit: No Status: Acute Code(s): L02.415 - CUTANEOUS ABSCESS OF RIGHT LOWER LIMB; L02.416 - CUTANEOUS ABSCESS OF LEFT LOWER LIMB SNOMED Code(s): 078366324 Plan: 1-General surgery evaluation for possible drainage of the left leg abscess this was discussed with the admitting physician 2-daptomycin 4 mg/kg to continue We will follow on clinical condition and cultures to further adjust medication if needed Thank you for this consultation we will follow the patient along with you Time with Patient: Greater than 30
[2021-01-06] MEDS: hydrALAZINE HCL 50 MG TAB PO SCH ×3 (06:35→17:03)
[2021-01-06] MEDS: PANTOPRAZOLE 40 MG TABLET PO SCH (06:35)
[2021-01-06 06:56] LABS: Glucose,Whole Blood 78 mg/dL (75-99)
[2021-01-06] MEDS: INSULIN ASPART (NovoLOG) 100 UNIT/ML VIAL SQ SCH ×7 (07:01→20:24)
[2021-01-06] MEDS: SYMBICORT 80-4.5 MCG INHALER INHALATION SCH ×2 (07:20→20:18)
[2021-01-06 07:30] LABS: HCT 29.2 % (39.0-53.0); HGB 9.9 gm/dL (13.0-17.5); MCH 30.9 pg (25.0-35.0); MCHC 33.9 g/dL (31.0-37.0); MCV 91.3 fL (80.0-100.0); Mean Platelet Volume 7.9; Platelet Count 241 k/uL (150-450); RBC 3.19 m/uL (4.30-5.90); RDW 13.8 % (11.5-15.5); WBC 9.7 k/uL (3.8-10.6)
[2021-01-06 07:42] LABS: Calcium 8.1 mg/dL (8.4-10.2); Potassium 4.4 mmol/L (3.5-5.1)
--- NOTE | 2021-01-06 07:48 | P.PN ---
Subjective 50-year-old male came in with the complaints of shortness of breath denied any significant orthopnea or Dyspnea He Does Have History of Her Congestive Failure Chronic Systolic Dysfunction Chest X-Rays Consistent with CHF Patient Does Have Elevated JVD As Well As Elevated BNP Patient Was Started on IV Lasix. Patient Was Recently Hospitalized Was Discharged Home Patient Had an MRSA Infection for Which Patient Came to Infusion Center for IV antibiotics and found to be hypoxic with his of which patient was sent to ER. Patient has multiple other medical problems. A she was recently discharged for from the hospital after he was treated for bilateral lower extremity superficial ulcerations and MRSA infection. Patient was also treated for acute kidney injury from acute interstitial nephritis and was on prednisone for that. 01/05/2021 Patient the blood sugars have come down quite a bit patient can urine output. We'll cut down the Lasix dose to 40 mg twice a day. Patient the became hypoglycemic because of that reason we will continue to monitor his blood sugars patient's long-acting insulin will be changed to 40 units from 57 units. Patient remains on daptomycin. 01/06/2021 The patient had significant improvement in volume overload. Patient blood sugars are highly fluctuating. Patient's prednisone was discontinued unsure how his blood sugars will be because of which we'll continue to monitor for 1 more day possibility of discharge tomorrow. Patient had a ALLERGIC interstitial nephritis because of which he was on prednisone which is presently discontinued and do not have any labs available from yesterday or today we will await basic metabolic profile. Constitutional: Denied any fatigue denied any fever. Cardio vascular: denied any chest pain, palpitations Gastrointestinal denied any nausea vomiting Pulmonary: Denied any shortness of breath cough Neurologic denied any new focal deficits All inpatient medications were reviewed and appropriate changes in these medications as dictated in the interval history and assessment and plan. Objective - Vital Signs Vital signs: Vital Signs Temp 97.6 F 01/05/21 20:00 Pulse 75 01/06/21 04:00 Resp 16 01/06/21 04:00 BP 159/81 01/06/21 04:00 Pulse Ox 92 L 01/06/21 04:00 Intake & Output 01/05/21 01/06/21 01/06/21 18:59 06:59 18:59 Intake Total 1440 Output Total 500 3250 Balance 940 -3250 Weight 94.9 kg 96.5 kg Intake: Oral 1440 Output: Urine 500 3250 Other: Voiding Method Urinal Urinal - Exam PHYSICAL EXAMINATION: GENERAL: The patient is alert and oriented x3, not in any acute distress. Well developed, well nourished. HEENT: Pupils are round and equally reacting to light. EOMI. No scleral icterus. No conjunctival pallor. Normocephalic, atraumatic. No pharyngeal erythema. No thyromegaly. CARDIOVASCULAR: S1 and S2 present. No murmurs, rubs, or gallops. PULMONARY: Chest is clear to auscultation, no wheezing or crackles. ABDOMEN: Soft, nontender, nondistended, normoactive bowel sounds. No palpable organomegaly. MUSCULOSKELETAL: No joint swelling or deformity. EXTREMITIES: No cyanosis, clubbing, pedal edema resolved NEUROLOGICAL: Gross neurological examination did not reveal any focal deficits. SKIN: No rashes. - Labs CBC & Chem 7: 01/06/21 06:31 01/06/21 06:31 Labs: Abnormal Lab Results - Last 24 Hours (Table) 01/05/21 01/05/21 01/05/21 Range/Units 06:16 06:23 11:43 RBC 3.34 L (4.30-5.90) m/uL Hgb 10.0 L (13.0-17.5) gm/dL Hct 31.2 L (39.0-53.0) % Sodium (137-145) mmol/L Chloride (98-107) mmol/L Carbon Dioxide (22-30) mmol/L BUN (9-20) mg/dL Creatinine (0.66-1.25) mg/dL Glucose (74-99) mg/dL POC Glucose (mg/dL) 482 H (75-99) mg/dL Hemoglobin A1c 13.1 H (4.0-6.0) % Calcium (8.4-10.2) mg/dL 01/05/21 01/05/21 01/05/21 Range/Units 16:16 16:17 16:32 RBC (4.30-5.90) m/uL Hgb (13.0-17.5) gm/dL Hct (39.0-53.0) % Sodium (137-145) mmol/L Chloride (98-107) mmol/L Carbon Dioxide (22-30) mmol/L BUN (9-20) mg/dL Creatinine (0.66-1.25) mg/dL Glucose 620 H* (74-99) mg/dL POC Glucose (mg/dL) >600 H >600 H (75-99) mg/dL Hemoglobin A1c (4.0-6.0) % Calcium (8.4-10.2) mg/dL 01/05/21 01/06/21 01/06/21 Range/Units 19:59 06:31 06:31 RBC 3.19 L (4.30-5.90) m/uL Hgb 9.9 L (13.0-17.5) gm/dL Hct 29.2 L (39.0-53.0) % Sodium 133 L (137-145) mmol/L Chloride 96 L (98-107) mmol/L Carbon Dioxide 32 H (22-30) mmol/L BUN 70 H (9-20) mg/dL Creatinine 2.45 H (0.66-1.25) mg/dL Glucose 57 L (74-99) mg/dL POC Glucose (mg/dL) 485 H (75-99) mg/dL Hemoglobin A1c (4.0-6.0) % Calcium 8.1 L (8.4-10.2) mg/dL Assessment and Plan Plan: -Possible congestive heart failure chronic diastolic dysfunction with acute exacerbation patient was on IV Lasix, cardiology was consulted. She had an EF of around 50-55% again was switched to 40 mg twice a day for Lasix -Recent a history of ALLERGIC interstitial nephritis with the elevated creatinine present creatinine is 2.4 which is an improvement from 2.9. Ev aluated the patient and steroids are being discontinued -Type 2 diabetes mellitus with highly elevated blood sugars and fluctuating blood sugars patient will be continued on present regimen Will monitor him for 1 more day. -Hyperkalemia secondary to renal failure -Hyponatremia: Hypervolemic hyponatremia expected to improve with Lasix labs from today are still pending -Hyperlipidemia -Hypertension -Recent MRSA infection bilateral lower extremity ulcerations for which patient the is receiving daptomycin as an outpatient which will be resumed and infectious disease value to the patient daptomycin is being continued and surgery evaluated the patient for possible debridement. -Diabetic peripheral neuropathy -COPD without any acute exacerbation -DVT prophylaxis: Subcutaneous heparin
[2021-01-06] MEDS: HEPARIN SODIUM,PORCINE/PF 5,000 UNIT/0.5 ML SYRINGE SQ SCH ×2 (08:48→17:04)
[2021-01-06] MEDS: DULoxetine HCL 60 MG CAPSULE.DR PO SCH (08:49)
[2021-01-06] MEDS: GABAPENTIN 100 MG CAP PO SCH ×3 (08:49→20:24)
[2021-01-06] MEDS: FUROSEMIDE 40 MG TAB PO SCH ×2 (08:49→17:03)
[2021-01-06] MEDS: guaiFENesin-Coden 100-10MG/5ML 10 ML CUP PO SCH ×2 (08:49→17:04)
[2021-01-06] MEDS: METOPROLOL TARTRATE 50 MG TAB PO SCH ×2 (08:49→20:24)
[2021-01-06] MEDS: amLODIPine 10 MG TAB PO SCH (08:49)
[2021-01-06] MEDS: ATORVASTATIN 40 MG TAB PO SCH (08:49)
--- NOTE | 2021-01-06 09:46 | P.PN ---
Subjective This is a pleasant 50-year-old male past medical history significant for diabetes mellitus, dyslipidemia, chronic kidney disease, chronic diastolic heart failure, orthostatic hypotension and former nicotine dependence. He follows in the office with Dr. Dickson. He is seen and examined sitting up on the edge of the bed eating breakfast. He denies any worsening shortness of breath. He has no chest pain, dizziness or palpitations. His blood sugars continue to be fluctuating and uncontrolled. Blood pressure 153/77 heart rate 78 afebrile maintaining oxygen saturation on room air. Laboratory data reviewed, WBC 9.7, hemoglobin 9.9, platelets 241, sodium 133, potassium 4.4 and creatinine 2.45. 24-hour urine output over 3000ml. Currently maintained on Lasix 40 mg by mouth twice a day, amlodipine 10 mg daily, atorvastatin 40 mg daily, hydralazine 50 mg 3 times a day and Lopressor 50 mg twice a day. GENERAL: Well-appearing, well-nourished and in no acute distress. NECK: Supple without JVD or thyromegaly. LUNGS: Breath sounds clear to auscultation bilaterally. Respiration equal and unlabored. No wheezes, rales or rhonchi. HEART: Regular rate and rhythm without murmurs, rubs or gallops. S1 and S2 heard. EXTREMITIES: Normal range of motion, 1+ bilateral pitting edema. Wounds noted to bilateral lower extremities. No clubbing or cyanosis. Peripheral pulses intact. ASSESSMENT Acute on chronic diastolic heart failure Diabetes mellitus, uncontrolled Hypertension Dyslipidemia Lower extremity wounds with MRSA Acute on chronic kidney disease Dysautonomia Hyperkalemia Hyponatremia PLAN Continue current medical regimen. Clinically stable from a cardiac perspective. Ongoing medical management of uncontrolled diabetes mellitus. Recommend outpatient follow-up with endocrinology, Dr. Sorto. Follow-up with Dr. Dickson upon discharge. Nurse Practitioner note has been reviewed, I agree with a documented findings and plan of care. Patient was seen and examined. Objective - Vital Signs Vital signs: Vital Signs Temp 97.6 F 01/05/21 20:00 Pulse 75 01/06/21 04:00 Resp 16 01/06/21 04:00 BP 159/81 01/06/21 04:00 Pulse Ox 92 L 01/06/21 04:00 Intake & Output 01/05/21 01/06/21 01/06/21 18:59 06:59 18:59 Intake Total 1440 Output Total 500 3250 Balance 940 -3250 Weight 94.9 kg 96.5 kg Intake: Oral 1440 Output: Urine 500 3250 Other: Voiding Method Urinal Urinal - Labs CBC & Chem 7: 01/06/21 06:31 01/06/21 06:31 Labs: Abnormal Lab Results - Last 24 Hours (Table) 01/05/21 01/05/21 01/05/21 Range/Units 06:23 11:43 16:16 RBC (4.30-5.90) m/uL Hgb (13.0-17.5) gm/dL Hct (39.0-53.0) % Sodium (137-145) mmol/L Chloride (98-107) mmol/L Carbon Dioxide (22-30) mmol/L BUN (9-20) mg/dL Creatinine (0.66-1.25) mg/dL Glucose (74-99) mg/dL POC Glucose (mg/dL) 482 H >600 H (75-99) mg/dL Hemoglobin A1c 13.1 H (4.0-6.0) % Calcium (8.4-10.2) mg/dL 01/05/21 01/05/21 01/05/21 Range/Units 16:17 16:32 19:59 RBC (4.30-5.90) m/uL Hgb (13.0-17.5) gm/dL Hct (39.0-53.0) % Sodium (137-145) mmol/L Chloride (98-107) mmol/L Carbon Dioxide (22-30) mmol/L BUN (9-20) mg/dL Creatinine (0.66-1.25) mg/dL Glucose 620 H* (74-99) mg/dL POC Glucose (mg/dL) >600 H 485 H (75-99) mg/dL Hemoglobin A1c (4.0-6.0) % Calcium (8.4-10.2) mg/dL 01/06/21 01/06/21 Range/Units 06:31 06:31 RBC 3.19 L (4.30-5.90) m/uL Hgb 9.9 L (13.0-17.5) gm/dL Hct 29.2 L (39.0-53.0) % Sodium 133 L (137-145) mmol/L Chloride 96 L (98-107) mmol/L Carbon Dioxide 32 H (22-30) mmol/L BUN 70 H (9-20) mg/dL Creatinine 2.45 H (0.66-1.25) mg/dL Glucose 57 L (74-99) mg/dL POC Glucose (mg/dL) (75-99) mg/dL Hemoglobin A1c (4.0-6.0) % Calcium 8.1 L (8.4-10.2) mg/dL
--- NOTE | 2021-01-06 11:40 | PN ---
PROGRESS NOTE DATE OF SERVICE: 01/06/2021 REASON FOR FOLLOWUP: Bilateral lower extremity MRSA skin infection. INTERVAL HISTORY: The patient is currently afebrile. The patient is breathing more comfortably. The patient did mention overall pain discomfort to the left posterior leg has slightly decreased intensity. There is no drainage. No chest pain, shortness of breath or cough. PHYSICAL EXAMINATION: Blood pressure 153/77 with a pulse of 78, temperature 98.3. He is 95% on room air. General description is a middle-aged male lying in bed in no distress. RESPIRATORY SYSTEM: Unlabored breathing, decreased intensity of breath sounds. No wheeze. HEART: S1, S2. Regular rate and rhythm. ABDOMEN: Soft, no tenderness. Left posterior leg area of swelling, redness has slightly decreased, no drainage. LABS: Hemoglobin 9.9, white count 9.7, BUN of 70, creatinine 2.45. DIAGNOSTIC IMPRESSION AND PLAN: Patient with bilateral lower extremity MRSA infection in this patient right lower extremity did show improvement however developed a new lesion on the left leg. Surgery saw the patient, recommended no drainage. Plan is to continue daptomycin for another week and close outpatient followup. MMODL / IJN: [id number] /
[2021-01-06 12:07] LABS: Glucose,Whole Blood 164 mg/dL (75-99)
[2021-01-06] MEDS: ACETAMINOPHEN TAB 325 MG TAB PO PRN (12:30)
--- NOTE | 2021-01-06 12:30 | P.PN ---
Subjective Progress Note Date: 01/06/21 CHIEF COMPLAINT: Left calf abscess with cellulitis HISTORY OF PRESENT ILLNESS: Patient has multiple wounds upper and lower extremities. History of MRSA. He is a diabetic with A1c of 13.1. Patient's left calf cellulitis and abscess improving with antibiotics. Patient reports decrease in pain. Also has had decrease in erythema around the scabbed area. He is afebrile. WBC is 9.7. PHYSICAL EXAM: VITAL SIGNS: Reviewed. GENERAL: Well-developed in no acute distress. HEENT: No sclera icterus. Extraocular movements grossly intact. Moist buccal mucosa. Head is atraumatic, normocephalic. ABDOMEN: Soft. Nondistended. Nontender. NEUROLOGIC: Alert and oriented. Cranial nerves II through XII grossly intact. Skin exam patient has multiple wounds and scabs noted on the arms and legs. The left calf there is a 2 cm circular scab with decrease in the erythema around the scabbed area. Decrease in area of induration. Nontender. Decreased swelling. No drainage ASSESSMENT: 1. Left calf abscess and cellulitis PLAN: -No surgical intervention planned -Continue antibiotics per ID -Educated patient not to scratch or pick at his skin Physician Alto Singer note has been reviewed by physician. Signing provider agrees with the documented findings, assessment, and plan of care. Objective - Vital Signs Vital signs: Vital Signs Temp 98.3 F 01/06/21 08:50 Pulse 78 01/06/21 08:50 Resp 16 01/06/21 08:50 BP 153/77 01/06/21 08:50 Pulse Ox 95 01/06/21 08:50 Intake & Output 01/05/21 01/06/21 01/06/21 18:59 06:59 18:59 Intake Total 1440 480 Output Total 500 3250 375 Balance 940 -3250 105 Weight 94.9 kg 96.5 kg Intake: Oral 1440 480 Output: Urine 500 3250 375 Other: Voiding Method Urinal Urinal Urinal - Labs CBC & Chem 7: 01/06/21 06:31 01/06/21 06:31 Labs: Abnormal Lab Results - Last 24 Hours (Table) 01/05/21 01/05/21 01/05/21 Range/Units 06:23 16:16 16:17 RBC (4.30-5.90) m/uL Hgb (13.0-17.5) gm/dL Hct (39.0-53.0) % Sodium (137-145) mmol/L Chloride (98-107) mmol/L Carbon Dioxide (22-30) mmol/L BUN (9-20) mg/dL Creatinine (0.66-1.25) mg/dL Glucose (74-99) mg/dL POC Glucose (mg/dL) >600 H >600 H (75-99) mg/dL Hemoglobin A1c 13.1 H (4.0-6.0) % Calcium (8.4-10.2) mg/dL 01/05/21 01/05/21 01/06/21 Range/Units 16:32 19:59 06:31 RBC 3.19 L (4.30-5.90) m/uL Hgb 9.9 L (13.0-17.5) gm/dL Hct 29.2 L (39.0-53.0) % Sodium (137-145) mmol/L Chloride (98-107) mmol/L Carbon Dioxide (22-30) mmol/L BUN (9-20) mg/dL Creatinine (0.66-1.25) mg/dL Glucose 620 H* (74-99) mg/dL POC Glucose (mg/dL) 485 H (75-99) mg/dL Hemoglobin A1c (4.0-6.0) % Calcium (8.4-10.2) mg/dL 01/06/21 01/06/21 Range/Units 06:31 12:06 RBC (4.30-5.90) m/uL Hgb (13.0-17.5) gm/dL Hct (39.0-53.0) % Sodium 133 L (137-145) mmol/L Chloride 96 L (98-107) mmol/L Carbon Dioxide 32 H (22-30) mmol/L BUN 70 H (9-20) mg/dL Creatinine 2.45 H (0.66-1.25) mg/dL Glucose 57 L (74-99) mg/dL POC Glucose (mg/dL) 164 H (75-99) mg/dL Hemoglobin A1c (4.0-6.0) % Calcium 8.1 L (8.4-10.2) mg/dL
--- NOTE | 2021-01-06 12:46 | XR ---
EXAMINATION TYPE: XR chest 1V DATE OF EXAM: 01/06/2021 CLINICAL HISTORY: Difficulty breathing and CHF progress study. TECHNIQUE: Single AP portable upright view of the chest is obtained. COMPARISON: Chest x-ray from 2 days earlier And older studies FINDINGS: Interval improvement with resolution of bilateral upper lobe opacities. New small right pl eural effusion is noted. Associated right basilar compressive atelectasis. Cardiac silhouette size st able and upper limits of normal. Persistent left midlung linear atelectasis. Osseous structures are i ntact. IMPRESSION: Resolved bilateral upper lung edema and/or infiltrates. New small right pleural effusion and associated right basilar compressive atelectasis.
--- NOTE | 2021-01-06 14:09 | PN ---
PROGRESS NOTE The patient is seen for followup for acute kidney injury and volume overload. He was treated with steroids for possible acute interstitial nephritis from last admission. His renal function had improved and the prednisone was discontinued yesterday, mostly because of volume overload and hyperglycemia. This morning serum creatinine is at 2.45, which is slightly up from 2.3 yesterday. Patient was maintained on IV Lasix 40 mg q.12 hours. However, he states that his weight has not improved and he in fact has gained a couple of pounds from yesterday. Patient denies any shortness of breath, although he states that he feels bloated. PHYSICAL EXAMINATION: On examination today, blood pressure is 153/77, heart rate 78 per minute. He is afebrile. EXAMINATION OF THE HEART: S1, S2. EXAMINATION OF THE LUNGS: Decreased breath sounds at bases. Abdomen is soft, nontender. Examination of lower extremities shows edema 1+ bilaterally with healing ulcers/small abscesses on his legs. SURFACE WATER TECHNICIAN exam grossly intact. LABS: Labs show sodium 133, potassium 4.4, chloride 96, CO2 is 32, BUN 70, creatinine 2.45, hemoglobin 9.9 g/dL. ASSESSMENT: 1. Acute kidney injury secondary to acute interstitial nephritis from last admission, currently improved with steroids. Prednisone was discontinued yesterday, mostly due to volume overload and hyperglycemia. I will repeat a chest x-ray and since patient is concerned with weight gain again after initial loss of weight we can resume IV Lasix. I will give him a dose of 60 mg x1 today. We will continue with daily weight measurement. 2. Hyperglycemia secondary to steroids currently improved, post discontinuation of prednisone. 3. Cellulitis with left leg abscesses, maintained on antibiotics, being followed by ID. The patient was on daptomycin. PLAN: IV Lasix 60 mg x1 now. Repeat chest x-ray today. Continue with daily weights. Continue off of prednisone for now and avoid high salt containing foods. MMODL / IJN: [id number] /
[2021-01-06 16:49] LABS: Glucose,Whole Blood 192 mg/dL (75-99)
[2021-01-06 19:51] LABS: Glucose,Whole Blood 226 mg/dL (75-99)
[2021-01-06] MEDS: INSULIN DETEMIR (LEVEMIR) 100 UNIT/ML SYR SQ SCH (20:23)
[2021-01-06] MEDS: traZODone HCL 100 MG TAB PO SCH (20:24)
[2021-01-07] MEDS: guaiFENesin-Coden 100-10MG/5ML 10 ML CUP PO SCH ×4 (00:25→21:36)
[2021-01-07 07:14] LABS: Glucose,Whole Blood 90 mg/dL (75-99)
[2021-01-07] MEDS ORDERED: FUROSEMIDE 10 MG/ML 10 ML VIAL IV STA (08:18)
[2021-01-07] MEDS: FUROSEMIDE 40 MG TAB PO SCH (08:21)
[2021-01-07 08:50] LABS: African American GFR (CKD) 31 (>60 ml/min/1.73 sqM); Anion Gap 3 mmol/L; Blood Urea Nitrogen 73 mg/dL (9-20); Calcium 7.6 mg/dL (8.4-10.2); Carbon Dioxide 32 mmol/L (22-30); Chloride 100 mmol/L (98-107); Glucose 113 mg/dL (74-99); Non-African American GFR(CKD) 27 (>60 ml/min/1.73 sqM); Potassium 4.7 mmol/L (3.5-5.1); Sodium 135 mmol/L (137-145)
[2021-01-07] MEDS: SYMBICORT 80-4.5 MCG INHALER INHALATION SCH ×2 (09:08→21:35)
[2021-01-07] MEDS: FUROSEMIDE 10 MG/ML 10 ML VIAL IV SCH ×2 (09:11→21:41)
[2021-01-07] MEDS: INSULIN ASPART (NovoLOG) 100 UNIT/ML VIAL SQ SCH ×7 (09:11→21:36)
--- NOTE | 2021-01-07 09:18 | P.PN ---
Subjective 50-year-old male came in with the complaints of shortness of breath denied any significant orthopnea or Dyspnea He Does Have History of Her Congestive Failure Chronic Systolic Dysfunction Chest X-Rays Consistent with CHF Patient Does Have Elevated JVD As Well As Elevated BNP Patient Was Started on IV Lasix. Patient Was Recently Hospitalized Was Discharged Home Patient Had an MRSA Infection for Which Patient Came to Infusion Center for IV antibiotics and found to be hypoxic with his of which patient was sent to ER. Patient has multiple other medical problems. A she was recently discharged for from the hospital after he was treated for bilateral lower extremity superficial ulcerations and MRSA infection. Patient was also treated for acute kidney injury from acute interstitial nephritis and was on prednisone for that. 01/05/2021 Patient the blood sugars have come down quite a bit patient can urine output. We'll cut down the Lasix dose to 40 mg twice a day. Patient the became hypoglycemic because of that reason we will continue to monitor his blood sugars patient's long-acting insulin will be changed to 40 units from 57 units. Patient remains on daptomycin. 01/06/2021 The patient had significant improvement in volume overload. Patient blood sugars are highly fluctuating. Patient's prednisone was discontinued unsure how his blood sugars will be because of which we'll continue to monitor for 1 more day possibility of discharge tomorrow. Patient had a ALLERGIC interstitial nephritis because of which he was on prednisone which is presently discontinued and do not have any labs available from yesterday or today we will await basic metabolic profile. 01/07/2021 Patient the edema appears to be bit worse today patient will be started back on IV Lasix blood sugars will be monitored. Constitutional: Denied any fatigue denied any fever. Cardio vascular: denied any chest pain, palpitations Gastrointestinal denied any nausea vomiting Pulmonary: Denied any shortness of breath cough Neurologic denied any new focal deficits All inpatient medications were reviewed and appropriate changes in these medications as dictated in the interval history and assessment and plan. Objective - Vital Signs Vital signs: Vital Signs Temp 98.9 F 01/07/21 07:58 Pulse 69 01/07/21 07:58 Resp 16 01/07/21 07:58 BP 120/62 01/07/21 07:58 Pulse Ox 94 L 01/07/21 07:58 Intake & Output 01/06/21 01/07/21 01/07/21 18:59 06:59 18:59 Intake Total 1220 Output Total 375 Balance 845 Intake: Oral 1220 Output: Urine 375 Other: Voiding Method Urinal Urinal # Voids 2 - Exam PHYSICAL EXAMINATION: GENERAL: The patient is alert and oriented x3, not in any acute distress. Well developed, well nourished. HEENT: Pupils are round and equally reacting to light. EOMI. No scleral icterus. No conjunctival pallor. Normocephalic, atraumatic. No pharyngeal erythema. No thyromegaly. CARDIOVASCULAR: S1 and S2 present. No murmurs, rubs, or gallops. PULMONARY: Chest is clear to auscultation, no wheezing or crackles. ABDOMEN: Soft, nontender, nondistended, normoactive bowel sounds. No palpable organomegaly. MUSCULOSKELETAL: No joint swelling or deformity. EXTREMITIES: No cyanosis, clubbing, pedal edema resolved NEUROLOGICAL: Gross neurological examination did not reveal any focal deficits. SKIN: No rashes. - Labs CBC & Chem 7: 01/06/21 06:31 01/07/21 08:24 Labs: Abnormal Lab Results - Last 24 Hours (Table) 01/06/21 01/06/21 01/06/21 Range/Units 12:06 16:47 19:49 Sodium (137-145) mmol/L Carbon Dioxide (22-30) mmol/L BUN (9-20) mg/dL Creatinine (0.66-1.25) mg/dL Glucose (74-99) mg/dL POC Glucose (mg/dL) 164 H 192 H 226 H (75-99) mg/dL Calcium (8.4-10.2) mg/dL 01/07/21 Range/Units 08:24 Sodium 135 L (137-145) mmol/L Carbon Dioxide 32 H (22-30) mmol/L BUN 73 H (9-20) mg/dL Creatinine 2.66 H (0.66-1.25) mg/dL Glucose 113 H (74-99) mg/dL POC Glucose (mg/dL) (75-99) mg/dL Calcium 7.6 L (8.4-10.2) mg/dL Assessment and Plan Plan: -Possible congestive heart failure chronic diastolic dysfunction with acute exacerbation patient was on IV Lasix, cardiology was consulted. She had an EF of around 50-55% patient will be switched back to IV Lasix because of the worsening edema -Recent a history of ALLERGIC interstitial nephritis with the elevated creatinine present creatinine is 2.4 which is an improvement from 2.9. Nephrology evaluated the patient patient is off steroids patient lost steroid dose was on 01/05/2021 -Type 2 diabetes mellitus with highly elevated blood sugars and fluctuating blood sugars patient will be continued on present regimen , patient blood sugars appear to be fairly well controlled but there is a chance they can come down considering that he is off steroids for almost 48 hours -Hyperkalemia secondary to renal failure -Hyponatremia: Hypervolemic hyponatremia expected to improve with Lasix labs from today are still pending -Hyperlipidemia -Hypertension -Recent MRSA infection bilateral lower extremity ulcerations for which patient the is receiving daptomycin as an outpatient which will be resumed and inf ectious disease value to the patient daptomycin is being continued and surgery evaluated the patient for possible debridement. -Diabetic peripheral neuropathy -COPD without any acute exacerbation -DVT prophylaxis: Subcutaneous heparin
[2021-01-07] MEDS: amLODIPine 10 MG TAB PO SCH (09:22)
[2021-01-07] MEDS: PANTOPRAZOLE 40 MG TABLET PO SCH (09:22)
[2021-01-07] MEDS: GABAPENTIN 100 MG CAP PO SCH ×3 (09:22→21:36)
[2021-01-07] MEDS: hydrALAZINE HCL 50 MG TAB PO SCH ×3 (09:22→16:56)
[2021-01-07] MEDS: ATORVASTATIN 40 MG TAB PO SCH (09:22)
[2021-01-07] MEDS: METOPROLOL TARTRATE 50 MG TAB PO SCH ×2 (09:22→21:36)
[2021-01-07] MEDS: DULoxetine HCL 60 MG CAPSULE.DR PO SCH (09:23)
[2021-01-07] MEDS: HEPARIN SODIUM,PORCINE/PF 5,000 UNIT/0.5 ML SYRINGE SQ SCH ×4 (09:23→22:26)
[2021-01-07] MEDS: ACETAMINOPHEN TAB 325 MG TAB PO PRN ×2 (09:34→22:26)
--- NOTE | 2021-01-07 11:17 | P.PN ---
Subjective Progress Note Date: 01/07/21 CHIEF COMPLAINT: Left calf abscess with cellulitis HISTORY OF PRESENT ILLNESS: Patient has multiple wounds upper and lower extremities. History of MRSA. He is a diabetic with A1c of 13.1. Patient's left calf cellulitis and abscess improving with antibiotics. Patient reports decrease in pain. Also has had decrease in erythema around the scabbed area. He is afebrile. WBC 9.7 yesterday. Medicine service has restarted patient on IV Lasix due to edema PHYSICAL EXAM: VITAL SIGNS: Reviewed. GENERAL: Well-developed in no acute distress. HEENT: No sclera icterus. Extraocular movements grossly intact. Moist buccal mucosa. Head is atraumatic, normocephalic. ABDOMEN: Soft. Nondistended. Nontender. NEUROLOGIC: Alert and oriented. Cranial nerves II through XII grossly intact. Skin exam patient has multiple wounds and scabs noted on the arms and legs. The left calf there is a 2 cm circular scab with decrease in the erythema around the scabbed area. Decrease in area of induration. Nontender. Decreased swelling. No drainage ASSESSMENT: 1. Left calf abscess and cellulitis improving with antibiotics PLAN: -No surgical intervention planned -Continue antibiotics per ID -Educated patient not to scratch or pick at his skin -Educated patient that he can shower Physician Lab Analyst note has been reviewed by physician. Signing provider agrees with the documented findings, assessment, and plan of care. Objective - Vital Signs Vital signs: Vital Signs Temp 98.9 F 01/07/21 07:58 Pulse 69 01/07/21 07:58 Resp 16 01/07/21 07:58 BP 120/62 01/07/21 07:58 Pulse Ox 94 L 01/07/21 07:58 Intake & Output 01/06/21 01/07/21 01/07/21 18:59 06:59 18:59 Intake Total 1220 200 Output Total 375 Balance 845 200 Weight 98.061 kg Intake: Oral 1220 200 Output: Urine 375 Other: Voiding Method Urinal Urinal # Voids 2 1 - Labs CBC & Chem 7: 01/06/21 06:31 01/07/21 08:24 Labs: Abnormal Lab Results - Last 24 Hours (Table) 01/06/21 01/06/21 01/06/21 Range/Units 12:06 16:47 19:49 Sodium (137-145) mmol/L Carbon Dioxide (22-30) mmol/L BUN (9-20) mg/dL Creatinine (0.66-1.25) mg/dL Glucose (74-99) mg/dL POC Glucose (mg/dL) 164 H 192 H 226 H (75-99) mg/dL Calcium (8.4-10.2) mg/dL 01/07/21 Range/Units 08:24 Sodium 135 L (137-145) mmol/L Carbon Dioxide 32 H (22-30) mmol/L BUN 73 H (9-20) mg/dL Creatinine 2.66 H (0.66-1.25) mg/dL Glucose 113 H (74-99) mg/dL POC Glucose (mg/dL) (75-99) mg/dL Calcium 7.6 L (8.4-10.2) mg/dL
[2021-01-07] MEDS: SEMAGLUTIDE 1 MG/0.75 ML SQ SCH (11:22)
[2021-01-07 12:08] LABS: Glucose,Whole Blood 61 mg/dL (75-99)
[2021-01-07 12:08] LABS: Glucose,Whole Blood 122 mg/dL (75-99)
--- NOTE | 2021-01-07 12:09 | P.PN ---
Subjective Progress Note Date: 01/07/21 HISTORY OF PRESENT ILLNESS: This is a pleasant 50-year-old male past medical history significant for diabetes mellitus, dyslipidemia, chronic kidney disease, chronic diastolic heart failure, orthostatic hypotension and former nicotine dependence. He follows in the office with Dr. Dickson. He is seen and examined sitting up on the edge of the bed eating breakfast. He denies any worsening shortness of breath. He has no chest pain, dizziness or palpitations. His blood sugars continue to be fluctuating and uncontrolled. Blood pressure 153/77 heart rate 78 afebrile maintaining oxygen saturation on room air. Laboratory data reviewed, WBC 9.7, hemoglobin 9.9, platelets 241, sodium 133, potassium 4.4 and creatinine 2.45. 24-hour urine output over 3000ml. Currently maintained on Lasix 40 mg by mouth twice a day, amlodipine 10 mg daily, atorvastatin 40 mg daily, hydralazine 50 mg 3 times a day and Lopressor 50 mg twice a day. 01/07/2021 Patient examined at the bedside. Patient is sitting up in the chair. He denies chest pain or pressure. He denies shortness of breath. Patient was placed back on IV lasix per nephrology today for increased lower extremity edema. Blood pressure 120/62. Heart rate in the 60s. He is on room air with oxygen saturation s greater than 92%. Creatinine 2.66 today. PHYSICAL EXAM: VITAL SIGNS: Reviewed. GENERAL: Well-developed in no acute distress. NECK: Supple. No JVD or thyromegaly LUNGS: Respirations even and unlabored. Lungs essentially clear to auscultation bilaterally. HEART: Regular rate and rhythm. S1 and S2 heard. EXTREMITIES: Normal range of motion. No clubbing or cyanosis. Peripheral pulses intact. 2+ lower extremity edema with wounds to bilateral lower extremities. ASSESSMENT: Acute on chronic diastolic heart failure Diabetes mellitus, uncontrolled Hypertension Dyslipidemia Lower extremity wounds with MRSA Acute on chronic kidney disease Dysautonomia Hyperkalemia Hyponatremia PLAN: Continue current cardiac medications Continue diuretic management per nephrology We will sign off. Please reconsult if needed Nurse practitioner note has been reviewed by physician. Signing provider agrees with the documented findings, assessment, and plan of care. Objective - Vital Signs Vital signs: Vital Signs Temp 98.9 F 01/07/21 07:58 Pulse 69 05/06/21 07:58 Resp 16 01/07/21 07:58 BP 120/62 01/07/21 07:58 Pulse Ox 94 L 01/07/21 07:58 Intake & Output 01/06/21 01/07/21 01/07/21 18:59 06:59 18:59 Intake Total 1220 200 Output Total 375 Balance 845 200 Weight 98.061 kg Intake: Oral 1220 200 Output: Urine 375 Other: Voiding Method Urinal Urinal # Voids 2 1 - Labs CBC & Chem 7: 01/06/21 06:31 01/07/21 08:24 Labs: Abnormal Lab Results - Last 24 Hours (Table) 01/06/21 01/06/21 01/06/21 Range/Units 12:06 16:47 19:49 Sodium (137-145) mmol/L Carbon Dioxide (22-30) mmol/L BUN (9-20) mg/dL Creatinine (0.66-1.25) mg/dL Glucose (74-99) mg/dL POC Glucose (mg/dL) 164 H 192 H 226 H (75-99) mg/dL Calcium (8.4-10.2) mg/dL 01/07/21 Range/Units 08:24 Sodium 135 L (137-145) mmol/L Carbon Dioxide 32 H (22-30) mmol/L BUN 73 H (9-20) mg/dL Creatinine 2.66 H (0.66-1.25) mg/dL Glucose 113 H (74-99) mg/dL POC Glucose (mg/dL) (75-99) mg/dL Calcium 7.6 L (8.4-10.2) mg/dL
--- NOTE | 2021-01-07 12:17 | PN ---
PROGRESS NOTE DATE OF SERVICE: 01/07/2021 REASON FOR FOLLOWUP: Bilateral lower extremity monitor infection. INTERVAL HISTORY: The patient is currently afebrile. He is breathing comfortably. Did mention pain to the left posterior leg where he did have an erythematous patch, slightly more than yesterday, wants a little bit more pain medication. Denies having any chest pain, shortness of breath or cough. No abdominal pain. No diarrhea. PHYSICAL EXAMINATION: Blood pressure is 120/62 with a pulse of 69, temperature 98.9. He is 94% on room air. General description is a middle-aged male up in the room in no distress. RESPIRATORY SYSTEM: Unlabored breathing, decreased breath sounds at the bases, no wheeze. HEART: S1, S2. Regular rate and rhythm. ABDOMEN: Soft, no tenderness. Left posterior leg did have an area of erythema, though no worsening was noticed. Covered with a dry scab and no drainage. LABS: BUN of 73, creatinine 2.66. DIAGNOSTIC IMPRESSION AND PLAN: Patient with bilateral lower extremity MRSA infection improvement on the right leg, slight worsening on the left though they seem to be getting better. Plan at this time is continue on daptomycin through [facility] for another week on discharge. Continue supportive care. MMODL / IJN: [id number] /
--- NOTE | 2021-01-07 14:53 | PN ---
PROGRESS NOTE Patient is seen for followup for acute kidney injury on top of chronic kidney disease. Initially there were plans for discharge. However, patient complained of worsening edema and therefore he was restarted on IV Lasix yesterday. His weight has not decreased. However, this may be inaccurate as he is on a different floor today. A 24 hour urine output 3.7 L. Chest x-ray was done yesterday which did show improvement in his pulmonary vasculature as compared to on admission. PHYSICAL EXAMINATION: On examination today, blood pressure is 120/62, heart rate 69 per minute. Patient is afebrile. EXAMINATION OF THE HEART: S1, S2. EXAMINATION OF THE LUNGS: Bilateral breath sounds are heard. Abdomen is soft, nontender. Examination of lower extremities shows edema 2+ bilaterally, worse on the left leg. POLICE DISTRICT SWITCHBOARD OPERATOR exam grossly intact. LABS: Labs show sodium 135, potassium 4.7, chloride 100, CO2 is 32, BUN 73, serum creatinine 2.6 mg/dL. ASSESSMENT: 1. Acute kidney injury acute interstitial nephritis from last admission status post prednisone for about 10 days. Steroids were discontinued this admission secondary to significant hyperglycemia. The patient also has significant volume overload this admission and he is currently being diuresed. Serum creatinine seems to be edging up again. However, he was significantly volume overloaded on initial admission, therefore the initial creatinine may not have been accurate. We will continue to monitor for now. He may need to restart lower dose of prednisone if renal function continues to worsen and we may need to reconsider the kidney biopsy. 2. Volume overload. Lower extremity edema. Switch Lasix to 80 mg q.12 hours. Check daily weights. 3. Cellulitis and abscess bilateral lower extremities, status post daptomycin on last admission. 4. Chronic kidney disease with baseline creatinine 1.7-2.5 mg/dL secondary to diabetic kidney disease. 5. Congestive heart failure, diastolic heart failure, ejection fraction 50% to 55%. 6. Type 2 diabetes with hyperglycemia worsened with use of prednisone, currently improved. PLAN: Switch Lasix to 80 mg q.12 hours. Check daily weights. Repeat labs in a.m. If renal function continues to worsen, may need to start lower dose of prednisone and consider kidney biopsy if there is no improvement in renal function. MMODL / IJN: [id number] /
[2021-01-07 17:02] LABS: Glucose,Whole Blood 239 mg/dL (75-99)
[2021-01-07 21:04] LABS: Glucose,Whole Blood 261 mg/dL (75-99)
[2021-01-07] MEDS: traZODone HCL 100 MG TAB PO SCH (21:36)
[2021-01-07] MEDS: INSULIN DETEMIR (LEVEMIR) 100 UNIT/ML SYR SQ SCH (21:36)
[2021-01-08 06:57] LABS: Glucose,Whole Blood 79 mg/dL (75-99)
[2021-01-08] MEDS: SYMBICORT 80-4.5 MCG INHALER INHALATION SCH ×2 (07:33→19:43)
[2021-01-08] MEDS: guaiFENesin-Coden 100-10MG/5ML 10 ML CUP PO SCH ×3 (08:24→21:04)
[2021-01-08] MEDS: amLODIPine 10 MG TAB PO SCH (08:32)
[2021-01-08] MEDS: HEPARIN SODIUM,PORCINE/PF 5,000 UNIT/0.5 ML SYRINGE SQ SCH ×3 (08:33→23:55)
[2021-01-08] MEDS: DULoxetine HCL 60 MG CAPSULE.DR PO SCH (08:33)
[2021-01-08] MEDS: ATORVASTATIN 40 MG TAB PO SCH (08:33)
[2021-01-08] MEDS: METOPROLOL TARTRATE 50 MG TAB PO SCH ×2 (08:33→21:03)
[2021-01-08] MEDS: PANTOPRAZOLE 40 MG TABLET PO SCH (08:33)
[2021-01-08] MEDS: INSULIN ASPART (NovoLOG) 100 UNIT/ML VIAL SQ SCH ×7 (08:33→21:03)
[2021-01-08] MEDS: hydrALAZINE HCL 50 MG TAB PO SCH ×3 (08:33→18:22)
[2021-01-08] MEDS: GABAPENTIN 100 MG CAP PO SCH ×3 (08:33→21:03)
[2021-01-08 09:42] LABS: African American GFR (CKD) 30 (>60 ml/min/1.73 sqM); Anion Gap 6 mmol/L; Blood Urea Nitrogen 79 mg/dL (9-20); Calcium 7.8 mg/dL (8.4-10.2); Carbon Dioxide 30 mmol/L (22-30); Chloride 99 mmol/L (98-107); Glucose 135 mg/dL (74-99); Non-African American GFR(CKD) 26 (>60 ml/min/1.73 sqM); Potassium 4.7 mmol/L (3.5-5.1); Sodium 135 mmol/L (137-145)
[2021-01-08] MEDS: FUROSEMIDE 100 MG in SODIUM CHLORIDE 0.9% 90 ML IV SCH ×2 (10:02→19:07)
[2021-01-08 11:40] LABS: Glucose,Whole Blood 77 mg/dL (75-99)
--- NOTE | 2021-01-08 11:48 | P.PN ---
Subjective Progress Note Date: 01/08/21 CHIEF COMPLAINT: Left calf abscess with cellulitis HISTORY OF PRESENT ILLNESS: Patient has multiple wounds upper and lower extremities. History of MRSA. He is a diabetic with A1c of 13.1. Patient's left calf cellulitis and abscess improving with antibiotics. Patient reports decrease in pain. Also has had decrease in erythema around the scabbed area. He is afebrile. Nephrology has started patient on Lasix drip for his lower extremity edema PHYSICAL EXAM: VITAL SIGNS: Reviewed. GENERAL: Well-developed in no acute distress. HEENT: No sclera icterus. Extraocular movements grossly intact. Moist buccal mucosa. Head is atraumatic, normocephalic. ABDOMEN: Soft. Nondistended. Nontender. NEUROLOGIC: Alert and oriented. Cranial nerves II through XII grossly intact. Skin exam patient has multiple wounds and scabs noted on the arms and legs. The left calf there is a 2 cm circular scab with decrease in the erythema around the scabbed area. Decrease in area of induration. Nontender. Decreased swelling. No drainage ASSESSMENT: 1. Left calf abscess and cellulitis improving with antibiotics PLAN: -No surgical intervention planned -Continue antibiotics per ID -Educated patient not to scratch or pick at his skin -Continue supportive care Physician Streetcar Conductor note has been reviewed by physician. Signing provider agrees with the documented findings, assessment, and plan of care. Objective - Vital Signs Vital signs: Vital Signs Temp 98.2 F 01/08/21 08:00 Pulse 64 01/08/21 08:00 Resp 17 01/08/21 08:00 BP 124/68 01/08/21 08:00 Pulse Ox 95 01/08/21 08:00 Intake & Output 01/07/21 01/08/21 01/08/21 18:59 06:59 18:59 Intake Total 680 420 Output Total 727 900 200 Balance -47 -900 220 Weight 97.9 kg Intake: Oral 680 420 Output: Urine 700 900 200 Post Void Residual 27 Other: Voiding Method Urinal # Voids 0 1 - Labs CBC & Chem 7: 01/06/21 06:31 01/08/21 08:50 Labs: Abnormal Lab Results - Last 24 Hours (Table) 01/07/21 01/07/21 01/07/21 Range/Units 11:43 12:06 16:56 Sodium (137-145) mmol/L BUN (9-20) mg/dL Creatinine (0.66-1.25) mg/dL Glucose (74-99) mg/dL POC Glucose (mg/dL) 61 L 122 H 239 H (75-99) mg/dL Calcium (8.4-10.2) mg/dL 01/07/21 01/08/21 Range/Units 21:02 08:50 Sodium 135 L (137-145) mmol/L BUN 79 H (9-20) mg/dL Creatinine 2.73 H (0.66-1.25) mg/dL Glucose 135 H (74-99) mg/dL POC Glucose (mg/dL) 261 H (75-99) mg/dL Calcium 7.8 L (8.4-10.2) mg/dL
--- NOTE | 2021-01-08 12:05 | P.PN ---
Subjective 50-year-old male came in with the complaints of shortness of breath denied any significant orthopnea or Dyspnea He Does Have History of Her Congestive Failure Chronic Systolic Dysfunction Chest X-Rays Consistent with CHF Patient Does Have Elevated JVD As Well As Elevated BNP Patient Was Started on IV Lasix. Patient Was Recently Hospitalized Was Discharged Home Patient Had an MRSA Infection for Which Patient Came to Infusion Center for IV antibiotics and found to be hypoxic with his of which patient was sent to ER. Patient has multiple other medical problems. A she was recently discharged for from the hospital after he was treated for bilateral lower extremity superficial ulcerations and MRSA infection. Patient was also treated for acute kidney injury from acute interstitial nephritis and was on prednisone for that. 01/05/2021 Patient the blood sugars have come down quite a bit patient can urine output. We'll cut down the Lasix dose to 40 mg twice a day. Patient the became hypoglycemic because of that reason we will continue to monitor his blood sugars patient's long-acting insulin will be changed to 40 units from 57 units. Patient remains on daptomycin. 01/06/2021 The patient had significant improvement in volume overload. Patient blood sugars are highly fluctuating. Patient's prednisone was discontinued unsure how his blood sugars will be because of which we'll continue to monitor for 1 more day possibility of discharge tomorrow. Patient had a ALLERGIC interstitial nephritis because of which he was on prednisone which is presently discontinued and do not have any labs available from yesterday or today we will await basic metabolic profile. 01/07/2021 Patient the edema appears to be bit worse today patient will be started back on IV Lasix blood sugars will be monitored. 01/08/2021 Patient the blood sugars are highly fluctuating. Patient was started on IV Lasix drip by nephrology because of continued bilateral pedal edema. Patient's creatinine remained fairly stable although bit elevated from 2.66-2.73 serum sodium remained stable at 135. Patient has fairly good urine output. Constitutional: Denied any fatigue denied any fever. Cardio vascular: denied any chest pain, palpitations Gastrointestinal denied any nausea vomiting Pulmonary: Denied any shortness of breath cough Neurologic denied any new focal deficits All inpatient medications were reviewed and appropriate changes in these medi cations as dictated in the interval history and assessment and plan. Objective - Vital Signs Vital signs: Vital Signs Temp 98.2 F 01/08/21 08:00 Pulse 64 01/08/21 08:00 Resp 17 01/08/21 08:00 BP 124/68 01/08/21 08:00 Pulse Ox 95 01/08/21 08:00 Intake & Output 01/07/21 01/08/21 01/08/21 18:59 06:59 18:59 Intake Total 680 420 Output Total 727 900 500 Balance -47 -900 -80 Weight 97.9 kg Intake: Oral 680 420 Output: Urine 700 900 500 Post Void Residual 27 Other: Voiding Method Urinal # Voids 0 1 - Exam PHYSICAL EXAMINATION: GENERAL: The patient is alert and oriented x3, not in any acute distress. Well developed, well nourished. HEENT: Pupils are round and equally reacting to light. EOMI. No scleral icterus. No conjunctival pallor. Normocephalic, atraumatic. No pharyngeal erythema. No thyromegaly. CARDIOVASCULAR: S1 and S2 present. No murmurs, rubs, or gallops. PULMONARY: Chest is clear to auscultation, no wheezing or crackles. ABDOMEN: Soft, nontender, nondistended, normoactive bowel sounds. No palpable organomegaly. MUSCULOSKELETAL: No joint swelling or deformity. EXTREMITIES: No cyanosis, clubbing, pedal edema resolved NEUROLOGICAL: Gross neurological examination did not reveal any focal deficits. SKIN: No rashes. - Labs CBC & Chem 7: 01/06/21 06:31 01/08/21 08:50 Labs: Abnormal Lab Results - Last 24 Hours (Table) 01/07/21 01/07/21 01/07/21 Range/Units 11:43 12:06 16:56 Sodium (137-145) mmol/L BUN (9-20) mg/dL Creatinine (0.66-1.25) mg/dL Glucose (74-99) mg/dL POC Glucose (mg/dL) 61 L 122 H 239 H (75-99) mg/dL Calcium (8.4-10.2) mg/dL 01/07/21 01/08/21 Range/Units 21:02 08:50 Sodium 135 L (137-145) mmol/L BUN 79 H (9-20) mg/dL Creatinine 2.73 H (0.66-1.25) mg/dL Glucose 135 H (74-99) mg/dL POC Glucose (mg/dL) 261 H (75-99) mg/dL Calcium 7.8 L (8.4-10.2) mg/dL Assessment and Plan Plan: -Possible congestive heart failure chronic diastolic dysfunction with acute exacerbation patient was on IV Lasix drip. She had an EF of around 50-55% -Recent a history of ALLERGIC interstitial nephritis with the elevated creatinine present creatinine is 2.7 . Nephrology evaluated the patient patient is off steroids patient last steroid dose was on 01/05/2021 -Type 2 diabetes mellitus with highly elevated blood sugars and fluctuating blood sugars patient will be continued on present regimen , patient blood sugars appear to be fairly well controlled at highly fluctuating -Hyperkalemia secondary to renal failure -Hyponatremia: Hypervolemic hyponatremia improved with Lasix -Hyperlipidemia -Hypertension -Recent MRSA infection bilateral lower extremity ulcerations for which patient the is receiving daptomycin as an outpatient which will be resumed and infectious disease value to the patient daptomycin is being continued and surgery evaluated the patient for possible debridement. -Diabetic peripheral neuropathy -COPD without any acute exacerbation -DVT prophylaxis: Subcutaneous heparin
[2021-01-08] MEDS: ACETAMINOPHEN TAB 325 MG TAB PO PRN ×2 (12:59→21:12)
--- NOTE | 2021-01-08 14:03 | PN ---
PROGRESS NOTE The patient is seen for followup for acute kidney injury, volume overload. He is currently being diuresed although patient states that he has not had significant urine output. Urine output has not been accurately charted. His weight is about the same as yesterday. Serum creatinine is edging up slightly. Patient has history of possible acute interstitial nephritis, treated empirically with prednisone with improvement in renal function on his last admission. Prednisone was discontinued secondary to significant hyperglycemia and patient had had about 10 days of steroids. He remains volume overloaded and was switched to IV Lasix 80 mg q.12 hours yesterday. I have discussed with him regarding fluid restriction and we will start him on a trial of Lasix drip with accurate measurement of urine output. If his renal function worsens again patient may need to be restarted on low-dose prednisone and may need to consider kidney biopsy if there is no improvement. PHYSICAL EXAMINATION: On examination today, blood pressure is 121/70, heart rate 65 per minute. He is afebrile. EXAMINATION OF THE HEART: S1, S2. EXAMINATION OF THE LUNGS: Bilateral breath sounds are heard. Abdomen is soft, nontender. Examination of lower extremities shows edema 2+, worse in the left leg. [employer] exam grossly intact. LABS: Labs show sodium 135, potassium 4.7, chloride 99, CO2 is 30, BUN 79, creatinine 2.73. ASSESSMENT: 1. Acute kidney injury, possible acute interstitial nephritis from last admission status post prednisone with improvement in renal function. Currently the prednisone has been discontinued as renal function had improved with creatinine at about 2.3-2.4 from 3.29 on his last admission. The patient is now being diuresed and serum creatinine slightly edging up. I will maintain him on Lasix drip for about 24 hours and repeat labs in a.m. We may need to restart the prednisone if renal function continues to worsen significantly. Kidney biopsy may also need to be considered. All serologies were negative. During the last admission, patient did have some hematuria and proteinuria. 2. Volume overload. The patient is advised regarding fluid restriction. Will add Lasix drip for 24 hours. 3. Lower extremity cellulitis with multiple abscess formation, maintained on daptomycin, currently improving, being followed by Infectious Disease. 4. Chronic kidney disease secondary to diabetic kidney disease baseline creatinine 1.7- 2.5 mg/dL. 5. Congestive heart failure acute diastolic heart failure. The ejection fraction 50% to 55%. 6. Type 2 diabetes with hyperglycemia worsened with use of prednisone, currently improved. PLAN: Switch to Lasix drip for 24 hours. Accurate I's and O's. Repeat labs in a.m. MMCARMEN / JAN: [id number] /
--- NOTE | 2021-01-08 16:31 | PN ---
PROGRESS NOTE DATE OF SERVICE: 01/08/2021 REASON FOR FOLLOWUP: Bilateral lower extremity skin and soft tissue infection. INTERVAL HISTORY: Patient is currently afebrile. The patient is breathing slightly comfortably currently on room air. Denies any chest pain, shortness of breath or cough. No abdominal pain. The patient did mention the pain and discomfort to the left posterior leg has decreased intensity and redness slightly decreased. PHYSICAL EXAMINATION: Blood pressure 124/68 with a pulse of 64. Temperature 98.2. He is 95% on room air. General description is a middle-aged male up in the room in no distress. Respiratory system: Unlabored breathing, decreased intensity of breath sounds. No wheeze. Heart S1, S2. Regular rate and rhythm. Abdomen soft, no tenderness. Left leg posterior leg area swelling and redness slightly decreased. No drainage. LABS: BUN of 79, creatinine 2.73. DIAGNOSTIC IMPRESSION AND PLAN: Patient with bilateral lower extremity skin and soft tissue infection secondary to MRSA. Right leg has improved. Left leg showing improvement as well. He will need to continue with daptomycin for another few days and monitor clinical course closely. Continue supportive care. MMODL / IJN: [id number] /
[2021-01-08 16:53] LABS: Glucose,Whole Blood 225 mg/dL (75-99)
[2021-01-08 20:19] LABS: Glucose,Whole Blood 327 mg/dL (75-99)
[2021-01-08] MEDS: INSULIN DETEMIR (LEVEMIR) 100 UNIT/ML SYR SQ SCH (21:02)
[2021-01-08] MEDS: traZODone HCL 100 MG TAB PO SCH (21:03)
[2021-01-09] MEDS: FUROSEMIDE 100 MG in SODIUM CHLORIDE 0.9% 90 ML IV SCH ×3 (04:30→20:50)
[2021-01-09 07:03] LABS: Glucose,Whole Blood 70 mg/dL (75-99)
[2021-01-09] MEDS: SYMBICORT 80-4.5 MCG INHALER INHALATION SCH ×2 (07:34→19:41)
[2021-01-09] MEDS: INSULIN ASPART (NovoLOG) 100 UNIT/ML VIAL SQ SCH ×7 (08:38→20:34)
[2021-01-09] MEDS: hydrALAZINE HCL 50 MG TAB PO SCH (09:00)
[2021-01-09] MEDS: amLODIPine 10 MG TAB PO SCH (09:01)
[2021-01-09] MEDS: guaiFENesin-Coden 100-10MG/5ML 10 ML CUP PO SCH ×3 (09:01→20:44)
[2021-01-09] MEDS: METOPROLOL TARTRATE 50 MG TAB PO SCH ×2 (09:02→20:49)
[2021-01-09] MEDS: DULoxetine HCL 60 MG CAPSULE.DR PO SCH (09:03)
[2021-01-09] MEDS: PANTOPRAZOLE 40 MG TABLET PO SCH (09:03)
[2021-01-09] MEDS: ATORVASTATIN 40 MG TAB PO SCH (09:03)
[2021-01-09] MEDS: HEPARIN SODIUM,PORCINE/PF 5,000 UNIT/0.5 ML SYRINGE SQ SCH ×3 (09:03→22:59)
[2021-01-09] MEDS: GABAPENTIN 100 MG CAP PO SCH ×3 (09:03→20:50)
--- NOTE | 2021-01-09 10:26 | P.PN ---
Subjective 50-year-old male came in with the complaints of shortness of breath denied any significant orthopnea or Dyspnea He Does Have History of Her Congestive Failure Chronic Systolic Dysfunction Chest X-Rays Consistent with CHF Patient Does Have Elevated JVD As Well As Elevated BNP Patient Was Started on IV Lasix. Patient Was Recently Hospitalized Was Discharged Home Patient Had an MRSA Infection for Which Patient Came to Infusion Center for IV antibiotics and found to be hypoxic with his of which patient was sent to ER. Patient has multiple other medical problems. A she was recently discharged for from the hospital after he was treated for bilateral lower extremity superficial ulcerations and MRSA infection. Patient was also treated for acute kidney injury from acute interstitial nephritis and was on prednisone for that. 01/05/2021 Patient the blood sugars have come down quite a bit patient can urine output. We'll cut down the Lasix dose to 40 mg twice a day. Patient the became hypoglycemic because of that reason we will continue to monitor his blood sugars patient's long-acting insulin will be changed to 40 units from 57 units. Patient remains on daptomycin. 01/06/2021 The patient had significant improvement in volume overload. Patient blood sugars are highly fluctuating. Patient's prednisone was discontinued unsure how his blood sugars will be because of which we'll continue to monitor for 1 more day possibility of discharge tomorrow. Patient had a ALLERGIC interstitial nephritis because of which he was on prednisone which is presently discontinued and do not have any labs available from yesterday or today we will await basic metabolic profile. 01/07/2021 Patient the edema appears to be bit worse today patient will be started back on IV Lasix blood sugars will be monitored. 01/08/2021 Patient the blood sugars are highly fluctuating. Patient was started on IV Lasix drip by nephrology because of continued bilateral pedal edema. Patient's creatinine remained fairly stable although bit elevated from 2.66-2.73 serum sodium remained stable at 135. Patient has fairly good urine output. January 2021 Patient says he gained weight has actually gained 3 kg since yesterday. Patient still has swelling patient blood pressure is low will hold off on amlodipine in the hydralazine. Patient did have a fairly good urine output patient received 50 mL of normal saline last night because he was hypotensive. Constitutional: Denied any fatigue denied any fever. Cardio vascular: denied any chest pain, palpitations Gastrointestinal denied any nausea vomiting Pulmonary: Denied any shortness of breath cough Neurologic denied any new focal deficits All inpatient medications were reviewed and appropriate changes in these medications as dictated in the interval history and assessment and plan. Objective - Vital Signs Vital signs: Vital Signs Temp 98.6 F 01/09/21 08:00 Pulse 62 01/09/21 08:00 Resp 17 01/09/21 08:00 BP 101/59 01/09/21 08:00 Pulse Ox 97 01/09/21 08:00 Intake & Output 01/08/21 01/09/21 01/09/21 18:59 06:59 18:59 Intake Total 1270 700 300 Output Total 500 300 800 Balance 770 400 -500 Weight 100 kg Intake: Intake, IV Titration 100 Amount Furosemide 100 mg In 100 Sodium Chloride 0.9% 90 ml @ 10 MG/HR 10 mls/hr IV .Q10H [facility] Rx#: [id number] Oral 1270 600 300 Output: Urine 500 300 800 Other: Voiding Method Urinal # Bowel Movements 3 - Exam PHYSICAL EXAMINATION: GENERAL: The patient is alert and oriented x3, not in any acute distress. Well developed, well nourished. HEENT: Pupils are round and equally reacting to light. EOMI. No scleral icterus. No conjunctival pallor. Normocephalic, atraumatic. No pharyngeal erythema. No thyromegaly. CARDIOVASCULAR: S1 and S2 present. No murmurs, rubs, or gallops. PULMONARY: Chest is clear to auscultation, no wheezing or crackles. ABDOMEN: Soft, nontender, nondistended, normoactive bowel sounds. No palpable organomegaly. MUSCULOSKELETAL: No joint swelling or deformity. EXTREMITIES: No cyanosis, clubbing, pedal edema resolved NEUROLOGICAL: Gross neurological examination did not reveal any focal deficits. SKIN: No rashes. - Labs CBC & Chem 7: 01/06/21 06:31 01/08/21 08:50 Labs: Abnormal Lab Results - Last 24 Hours (Table) 01/08/21 01/08/21 01/09/21 Range/Units 16:47 20:17 06:54 POC Glucose (mg/dL) 225 H 327 H 70 L (75-99) mg/dL Assessment and Plan Plan: -Possible congestive heart failure chronic diastolic dysfunction with acute exacerbation patient was on IV Lasix drip. She had an EF of around 50-55%, management of Lasix as per nephrology -Recent a history of ALLERGIC interstitial nephritis with the elevated creatinine present creatinine is 2.7 . Nephrology evaluated the patient patient is off steroids patient last steroid dose was on 01/05/2021 -Type 2 diabetes mellitus with highly elevated blood sugars and fluctuating blood sugars patient will be continued on present regimen , patient blood sugars appear to be fairly well controlled at highly fluctuating -Hyperkalemia secondary to renal failure -Hyponatremia: Hypervolemic hyponatremia improved with Lasix -Hyperlipidemia -Hypertension: Holding off on above-mentioned medications as patient is hypotensive -Recent MRSA infection bilateral lower extremity ulcerations for which patient the is receiving daptomycin as an outpatient which will be resumed and infectious disease value to the patient daptomycin is being continued and surgery evaluated the patient for possible debridement. -Diabetic peripheral neuropathy -COPD without any acute exacerbation -DVT prophylaxis: Subcutaneous heparin
--- NOTE | 2021-01-09 11:10 | P.PN ---
Subjective Patient is seen in follow-up for acute kidney injury on chronic kidney disease. Creatinine 2.73 as of yesterday. Maintained on Lasix drip. Urine output documented is 1.6 L in the last 24 hours. Weight up. Denies chest pain or shortness of breath. Vital signs are stable. General: The patient appeared well nourished and normally developed. HEENT: Head exam is unremarkable. Neck is without jugular venous distension. LUNGS: . Breath sounds decreased. HEART: Rate and Rhythm are regular. ABDOMEN: Soft, obese. EXTREMITITES: 2+ edema. Objective - Vital Signs Vital signs: Vital Signs Temp 98.6 F 01/09/21 08:00 Pulse 62 01/09/21 08:00 Resp 17 01/09/21 08:00 BP 101/59 01/09/21 08:00 Pulse Ox 97 01/09/21 08:00 Intake & Output 01/08/21 01/09/21 01/09/21 18:59 06:59 18:59 Intake Total 1270 700 300 Output Total 500 300 800 Balance 770 400 -500 Weight 100 kg Intake: Intake, IV Titration 100 Amount Furosemide 100 mg In 100 Sodium Chloride 0.9% 90 ml @ 10 MG/HR 10 mls/hr IV .Q10H [facility] Rx#: [id number] Oral 1270 600 300 Output: Urine 500 300 800 Other: Voiding Method Urinal # Bowel Movements 3 - Labs CBC & Chem 7: 01/06/21 06:31 01/08/21 08:50 Labs: Abnormal Lab Results - Last 24 Hours (Table) 01/08/21 01/08/21 01/09/21 Range/Units 16:47 20:17 06:54 POC Glucose (mg/dL) 225 H 327 H 70 L (75-99) mg/dL Assessment and Plan Plan: Assessment: 1. Acute kidney injury secondary to ATN secondary to cardiorenal syndrome. Possible ALLERGIC interstitial nephritis from last admission. Serologies were negative. Prednisone stopped due to edema and improving renal function. Creatinine 2.73 as of yesterday. 2. Chronic kidney disease stage IIIB/4 secondary to diabetic kidney disease. 3. Volume overload. 4. Acute on chronic diastolic CHF. 5. Anemia of chronic kidney disease maintained on Aranesp. 6. Diabetes mellitus. Plan: Increase Lasix drip to 15 mL an hour. Add metolazone 5 mg once daily. 1500 mL fluid restriction. Avoid nephrotoxins. Continue to monitor renal function and urine output. Repeat electrolytes in the morning. Once medically stable and volume status improved, will consider renal biopsy depending on his renal function.
[2021-01-09 11:44] LABS: Glucose,Whole Blood 81 mg/dL (75-99)
[2021-01-09 12:32] LABS: African American GFR (CKD) 28.1 (60.0-200.0); BUN/Creat Ratio 28.62 Ratio (12.00-20.00); Calcium 7.4 mg/dL (8.7-10.3); Non-African American GFR(CKD) 24.3 (60.0-200.0); Potassium 4.5 mmol/L (3.5-5.5)
[2021-01-09] MEDS: metOLazone 5 MG TAB PO SCH (13:26)
--- NOTE | 2021-01-09 13:41 | P.PN ---
Progress Note - Text Progress Note Date: 01/09/21 Patient's skin lesions on his legs are stable. He'll continue local wound care and antibiotics.
[2021-01-09] MEDS: ACETAMINOPHEN TAB 325 MG TAB PO PRN (14:51)
[2021-01-09 16:40] LABS: Glucose,Whole Blood 78 mg/dL (75-99)
[2021-01-09 20:31] LABS: Glucose,Whole Blood 89 mg/dL (75-99)
[2021-01-09] MEDS: INSULIN DETEMIR (LEVEMIR) 100 UNIT/ML SYR SQ SCH (20:44)
[2021-01-09] MEDS: traZODone HCL 100 MG TAB PO SCH (20:49)
--- NOTE | 2021-01-09 21:49 | PN ---
PROGRESS NOTE DATE OF SERVICE: 01/09/2021 REASON FOR FOLLOWUP: Bilateral lower extremity MRSA, skin and soft tissue infection. INTERVAL HISTORY: The patient is currently afebrile. The patient is breathing comfortably. Denies having any chest pain, shortness of breath or cough. Overall pain and discomfort to the left leg has decreased in intensity. PHYSICAL EXAMINATION: Blood pressure is 97/60 with a pulse of 85, temperature is 97.7. He is 96% on room air. General description is a middle-aged male up in the room in no distress. Respiratory system: Unlabored breathing, decreased intensity of breath sounds in the base, with no wheeze. Heart S1, S2. Regular rate and rhythm. Abdomen soft, no tenderness. Left leg swelling has slightly decreased. LABS: BUN of 83, creatinine is 2.9. DIAGNOSTIC IMPRESSION AND PLAN: Patient with bilateral lower extremity MRSA infection. The patient is covered daptomycin and did have overall improvement, to continue for another few days and monitor clinical course closely. MMODL / IJN: [id number] /
[2021-01-10] MEDS: ACETAMINOPHEN TAB 325 MG TAB PO PRN ×2 (00:59→21:42)
[2021-01-10] MEDS: FUROSEMIDE 100 MG in SODIUM CHLORIDE 0.9% 90 ML IV SCH ×3 (03:31→18:29)
[2021-01-10 07:06] LABS: Glucose,Whole Blood 276 mg/dL (75-99)
[2021-01-10] MEDS: guaiFENesin-Coden 100-10MG/5ML 10 ML CUP PO SCH ×3 (07:40→21:06)
[2021-01-10] MEDS: SYMBICORT 80-4.5 MCG INHALER INHALATION SCH ×2 (07:45→20:44)
[2021-01-10] MEDS: ATORVASTATIN 40 MG TAB PO SCH (07:46)
[2021-01-10] MEDS: GABAPENTIN 100 MG CAP PO SCH ×3 (07:46→21:42)
[2021-01-10] MEDS: DULoxetine HCL 60 MG CAPSULE.DR PO SCH (07:46)
[2021-01-10] MEDS: HEPARIN SODIUM,PORCINE/PF 5,000 UNIT/0.5 ML SYRINGE SQ SCH ×3 (07:46→23:09)
[2021-01-10] MEDS: PANTOPRAZOLE 40 MG TABLET PO SCH (07:46)
[2021-01-10] MEDS: INSULIN ASPART (NovoLOG) 100 UNIT/ML VIAL SQ SCH ×7 (07:47→21:41)
[2021-01-10] MEDS: metOLazone 5 MG TAB PO SCH (07:47)
[2021-01-10] MEDS: METOPROLOL TARTRATE 50 MG TAB PO SCH ×2 (07:47→21:41)
--- NOTE | 2021-01-10 09:34 | P.PN ---
Subjective Patient is seen in follow-up for acute kidney injury on chronic kidney disease. Creatinine 2.9 as of yesterday. Maintained on Lasix drip and metolazone. Urine output over 4 L in the last 24 hours. Feels better today. Vital signs are stable. General: The patient appeared well nourished and normally developed. HEENT: Head exam is unremarkable. Neck is without jugular venous distension. LUNGS: . Breath sounds decreased. HEART: Rate and Rhythm are regular. ABDOMEN: Soft, obese. EXTREMITITES: 2+ edema. Objective - Vital Signs Vital signs: Vital Signs Temp 98.5 F 01/10/21 07:36 Pulse 74 01/10/21 07:36 Resp 17 01/10/21 07:36 BP 159/51 01/10/21 07:36 Pulse Ox 96 01/10/21 07:36 Intake & Output 01/09/21 01/10/21 01/10/21 18:59 06:59 18:59 Intake Total 1060.000 891.5 Output Total 1600 2800 1940 Balance -540.000 -1908.5 -1940 Weight 98.7 kg Intake: Intake, IV Titration 100.000 189.5 Amount Furosemide 100 mg In 100.000 189.5 Sodium Chloride 0.9% 90 ml @ 15 MG/HR 15 mls/hr IV .Q6H40M [facility] Rx#: [id number] Oral 960 702 Output: Urine 1600 2800 1940 Other: Voiding Method Urinal # Voids 1 - Labs CBC & Chem 7: 01/06/21 06:31 01/09/21 06:46 Labs: Abnormal Lab Results - Last 24 Hours (Table) 01/09/21 01/10/21 Range/Units 06:46 07:02 BUN 83.0 H (9.0-27.0) mg/dL Creatinine 2.9 H (0.6-1.5) mg/dL Est GFR (CKD-EPI)AfAm 28.1 L (60.0-200.0) Est GFR (CKD-EPI)NonAf 24.3 L (60.0-200.0) BUN/Creatinine Ratio 28.62 H (12.00-20.00) Ratio Glucose 64 L (70-110) mg/dL POC Glucose (mg/dL) 276 H (75-99) mg/dL Calcium 7.4 L (8.7-10.3) mg/dL Assessment and Plan Plan: Assessment: 1. Acute kidney injury secondary to ATN secondary to cardiorenal syndrome. Possible ALLERGIC interstitial nephritis from last admission. Serologies were negative. Prednisone stopped due to edema and improving renal function. Creatinine 2.9 as of yesterday. 2. Chronic kidney disease stage IIIB/4 secondary to diabetic kidney disease. 3. Volume overload. Starting to improve. 4. Acute on chronic diastolic CHF. 5. Anemia of chronic kidney disease maintained on Aranesp. 6. Diabetes mellitus. Plan: Maintain Lasix drip at 15 mL an hour. Continue metolazone 5 mg once daily. 1500 mL fluid restriction. Avoid nephrotoxins. Continue to monitor renal function and urine output. Repeat electrolytes in the morning. Once medically stable and volume status improved, will consider renal biopsy depending on his renal function.
[2021-01-10 10:01] LABS: Anion Gap 6.1 mmol/L (4.00-12.00); BUN/Creat Ratio 27.67 Ratio (12.00-20.00); Calcium 8.1 mg/dL (8.7-10.3); Carbon Dioxide 32.9 mmol/L (21.6-31.8); Magnesium 2.2 mg/dL (1.5-2.4); Non-African American GFR(CKD) 23.3 (60.0-200.0); Potassium 5.4 mmol/L (3.5-5.5)
--- NOTE | 2021-01-10 11:37 | P.PN ---
Progress Note - Text Progress Note Date: 01/10/21 Patient remains stable. His skin lesions on his posterior calves are stable. There is no significant cellulitis. Trauma related to patient's scratching. Patient will Receive local care. No surgical intervention is planned.
[2021-01-10 11:48] LABS: Glucose,Whole Blood 240 mg/dL (75-99)
--- NOTE | 2021-01-10 12:35 | P.PN ---
Subjective 50-year-old male came in with the complaints of shortness of breath denied any significant orthopnea or Dyspnea He Does Have History of Her Congestive Failure Chronic Systolic Dysfunction Chest X-Rays Consistent with CHF Patient Does Have Elevated JVD As Well As Elevated BNP Patient Was Started on IV Lasix. Patient Was Recently Hospitalized Was Discharged Home Patient Had an MRSA Infection for Which Patient Came to Infusion Center for IV antibiotics and found to be hypoxic with his of which patient was sent to ER. Patient has multiple other medical problems. A she was recently discharged for from the hospital after he was treated for bilateral lower extremity superficial ulcerations and MRSA infection. Patient was also treated for acute kidney injury from acute interstitial nephritis and was on prednisone for that. 01/05/2021 Patient the blood sugars have come down quite a bit patient can urine output. We'll cut down the Lasix dose to 40 mg twice a day. Patient the became hypoglycemic because of that reason we will continue to monitor his blood sugars patient's long-acting insulin will be changed to 40 units from 57 units. Patient remains on daptomycin. 01/06/2021 The patient had significant improvement in volume overload. Patient blood sugars are highly fluctuating. Patient's prednisone was discontinued unsure how his blood sugars will be because of which we'll continue to monitor for 1 more day possibility of discharge tomorrow. Patient had a ALLERGIC interstitial nephritis because of which he was on prednisone which is presently discontinued and do not have any labs available from yesterday or today we will await basic metabolic profile. 01/07/2021 Patient the edema appears to be bit worse today patient will be started back on IV Lasix blood sugars will be monitored. 01/08/2021 Patient the blood sugars are highly fluctuating. Patient was started on IV Lasix drip by nephrology because of continued bilateral pedal edema. Patient's creatinine remained fairly stable although bit elevated from 2.66-2.73 serum sodium remained stable at 135. Patient has fairly good urine output. January 2021 Patient says he gained weight has actually gained 3 kg since yesterday. Patient still has swelling patient blood pressure is low will hold off on amlodipine in the hydralazine. Patient did have a fairly good urine output patient received 50 mL of normal saline last night because he was hypotensive. 01/10/2021 Patient was started on Zaroxolyn along with IV Lasix drip patient is urinating was swelling significantly improved he did lose about 1.3 kg of weight. Patient is feeling much better blood pressure is better today. She and most probably can be discharged tomorrow on oral diuretics. Constitutional: Denied any fatigue denied any fever. Cardio vascular: denied any chest pain, palpitations Gastrointestinal denied any nausea vomiting Pulmonary: Denied any shortness of breath cough Neurologic denied any new focal deficits All inpatient medications were reviewed and appropriate changes in these medications as dictated in the interval history and assessment and plan. Objective - Vital Signs Vital signs: Vital Signs Temp 98.5 F 01/10/21 07:36 Pulse 74 01/10/21 07:36 Resp 17 01/10/21 07:36 BP 159/51 01/10/21 07:36 Pulse Ox 96 01/10/21 07:36 Intake & Output 01/09/21 01/10/21 01/10/21 18:59 06:59 18:59 Intake Total 1060.000 891.5 340 Output Total 1600 2800 2700 Balance -540.000 -1908.5 -2360 Weight 98.7 kg Intake: Intake, IV Titration 100.000 189.5 100 Amount Furosemide 100 mg In 100.000 189.5 100 Sodium Chloride 0.9% 90 ml @ 15 MG/HR 15 mls/hr IV .Q6H40M [facility] Rx#: [id number] Oral 960 702 240 Output: Urine 1600 2800 2700 Other: Voiding Method Urinal # Voids 1 - Exam PHYSICAL EXAMINATION: GENERAL: The patient is alert and oriented x3, not in any acute distress. Well developed, well nourished. HEENT: Pupils are round and equally reacting to light. EOMI. No scleral icterus. No conjunctival pallor. Normocephalic, atraumatic. No pharyngeal erythema. No th yromegaly. CARDIOVASCULAR: S1 and S2 present. No murmurs, rubs, or gallops. PULMONARY: Chest is clear to auscultation, no wheezing or crackles. ABDOMEN: Soft, nontender, nondistended, normoactive bowel sounds. No palpable organomegaly. MUSCULOSKELETAL: No joint swelling or deformity. EXTREMITIES: No cyanosis, clubbing, pedal edema resolved NEUROLOGICAL: Gross neurological examination did not reveal any focal deficits. SKIN: No rashes. - Labs CBC & Chem 7: 01/06/21 06:31 01/10/21 06:01 Labs: Abnormal Lab Results - Last 24 Hours (Table) 01/09/21 01/10/21 01/10/21 Range/Units 06:46 06:01 07:02 Carbon Dioxide 32.9 H (21.6-31.8) mmol/L BUN 83.0 H 83.0 H (9.0-27.0) mg/dL Creatinine 2.9 H 3.0 H (0.6-1.5) mg/dL Est GFR (CKD-EPI)AfAm 28.1 L 27.0 L (60.0-200.0) Est GFR (CKD-EPI)NonAf 24.3 L 23.3 L (60.0-200.0) BUN/Creatinine Ratio 28.62 H 27.67 H (12.00-20.00) Ratio Glucose 64 L 218 H (70-110) mg/dL POC Glucose (mg/dL) 276 H (75-99) mg/dL Calcium 7.4 L 8.1 L (8.7-10.3) mg/dL 01/10/21 Range/Units 11:44 Carbon Dioxide (21.6-31.8) mmol/L BUN (9.0-27.0) mg/dL Creatinine (0.6-1.5) mg/dL Est GFR (CKD-EPI)AfAm (60.0-200.0) Est GFR (CKD-EPI)NonAf (60.0-200.0) BUN/Creatinine Ratio (12.00-20.00) Ratio Glucose (70-110) mg/dL POC Glucose (mg/dL) 240 H (75-99) mg/dL Calcium (8.7-10.3) mg/dL Assessment and Plan Plan: -Possible congestive heart failure chronic diastolic dysfunction with acute exacerbation patient was on IV Lasix drip and metolazone.. She had an EF of around 50-55%, management of Lasix as per nephrology out urine output with si gnificant improvement in the edema -Recent a history of ALLERGIC interstitial nephritis with the elevated creatinine present creatinine is 3 . Nephrology evaluated the patient patient is off steroids patient last steroid dose was on 01/06/20 -Type 2 diabetes mellitus with highly elevated blood sugars and fluctuating blood sugars patient will be continued on present regimen , patient blood sugars appear to be fairly well controlled at highly fluctuating -Hyperkalemia secondary to renal failure -Hyponatremia: Hypervolemic hyponatremia improved with Lasix -Hyperlipidemia -Hypertension: Holding off on above-mentioned medications as patient is hypotensive -Recent MRSA infection bilateral lower extremity ulcerations for which patient the is receiving daptomycin as an outpatient which will be resumed and infectious disease value to the patient daptomycin is being continued and surgery evaluated the patient for possible debridement. -Diabetic peripheral neuropathy -COPD without any acute exacerbation -DVT prophylaxis: Subcutaneous heparin
--- NOTE | 2021-01-10 15:53 | PN ---
PROGRESS NOTE DATE OF SERVICE: 01/10/2021 REASON FOR FOLLOWUP VISIT: Bilateral lower extremity MRSA skin and soft tissue infection. INTERVAL HISTORY: The patient is currently afebrile. The patient is breathing more comfortably. The patient denies having any chest pain, shortness of breath or cough. No abdominal pain. Overall pain and discomfort to the left lower extremity area of induration has decreased. No new lesion and no diarrhea. PHYSICAL EXAMINATION: Blood pressure 156/74 with a pulse of 63, temperature 98. He is 98% on room air. General description is a middle-aged male in the room in no distress. Respiratory system: Unlabored breathing, decreased breath sounds in the base, with no wheeze. Heart S1, S2. Regular rate and rhythm. Abdomen soft, no tenderness. Left leg posterior leg area of swelling has slightly decreased. No new area has been noted. Right leg is drying out. LAB DATA: BUN of 83, creatinine 3.0. DIAGNOSTIC IMPRESSION AND PLAN: Patient with bilateral lower extremity skin and soft tissue infection with MRSA. Right leg has showed overall improvement. Left leg has decreased in intensity. To continue with daptomycin and monitor clinical course closely. Continue supportive care. MMODL / IJN: [id number] /
[2021-01-10 16:30] LABS: Glucose,Whole Blood 92 mg/dL (75-99)
[2021-01-10 21:30] LABS: Glucose,Whole Blood 214 mg/dL (75-99)
[2021-01-10] MEDS: INSULIN DETEMIR (LEVEMIR) 100 UNIT/ML SYR SQ SCH (21:41)
[2021-01-10] MEDS: traZODone HCL 100 MG TAB PO SCH (21:42)
[2021-01-11] MEDS: FUROSEMIDE 100 MG in SODIUM CHLORIDE 0.9% 90 ML IV SCH ×4 (01:55→21:26)
[2021-01-11 05:56] LABS: Glucose,Whole Blood 46 mg/dL (75-99)
[2021-01-11 06:12] LABS: Glucose,Whole Blood 66 mg/dL (75-99)
[2021-01-11 06:38] LABS: Glucose,Whole Blood 101 mg/dL (75-99)
[2021-01-11] MEDS: INSULIN ASPART (NovoLOG) 100 UNIT/ML VIAL SQ SCH ×7 (06:46→21:27)
[2021-01-11] MEDS: metOLazone 5 MG TAB PO SCH (07:48)
[2021-01-11] MEDS: GABAPENTIN 100 MG CAP PO SCH ×3 (07:48→21:27)
[2021-01-11] MEDS: METOPROLOL TARTRATE 50 MG TAB PO SCH ×2 (07:48→21:27)
[2021-01-11] MEDS: DULoxetine HCL 60 MG CAPSULE.DR PO SCH (07:48)
[2021-01-11] MEDS: PANTOPRAZOLE 40 MG TABLET PO SCH (07:49)
[2021-01-11] MEDS: ATORVASTATIN 40 MG TAB PO SCH (07:49)
[2021-01-11] MEDS: HEPARIN SODIUM,PORCINE/PF 5,000 UNIT/0.5 ML SYRINGE SQ SCH ×3 (07:49→23:39)
[2021-01-11] MEDS: guaiFENesin-Coden 100-10MG/5ML 10 ML CUP PO SCH ×3 (07:49→21:27)
[2021-01-11] MEDS: SYMBICORT 80-4.5 MCG INHALER INHALATION SCH ×2 (08:50→19:58)
[2021-01-11 10:29] LABS: African American GFR (CKD) 29.4 (60.0-200.0); Albumin 3.2 g/dL (3.80-4.90); Albumin/Globulin Ratio 1.07 (1.60-3.17); Anion Gap 8.9 mmol/L (4.00-12.00); BUN/Creat Ratio 29.29 Ratio (12.00-20.00); Calcium 8.6 mg/dL (8.7-10.3); Carbon Dioxide 37.1 mmol/L (21.6-31.8); Magnesium 2.1 mg/dL (1.5-2.4); Non-African American GFR(CKD) 25.3 (60.0-200.0); Potassium 4.7 mmol/L (3.5-5.5); Total Bilirubin 0.3 mg/dL (0.2-1.2); Total Protein 6.2 g/dL (6.2-8.2)
--- NOTE | 2021-01-11 11:27 | P.PN ---
Subjective Progress Note Date: 01/11/21 CHIEF COMPLAINT: Left calf abscess with cellulitis HISTORY OF PRESENT ILLNESS: Patient has multiple wounds upper and lower extremities. History of MRSA. He is a diabetic with A1c of 13.1. Patient's left calf cellulitis and skin lesion improving with antibiotics. Patient reports no pain at skin lesion site. Also has had decrease in erythema around the scabbed area. He is afebrile. Patient continues to be on Lasix drip for his lower extremity edema PHYSICAL EXAM: VITAL SIGNS: Reviewed. GENERAL: Well-developed in no acute distress. HEENT: No sclera icterus. Extraocular movements grossly intact. Moist buccal mucosa. Head is atraumatic, normocephalic. ABDOMEN: Soft. Nondistended. Nontender. NEUROLOGIC: Alert and oriented. Cranial nerves II through XII grossly intact. Skin exam patient has multiple wounds and scabs noted on the arms and legs. The left calf there is a 2 cm circular scab with decrease in the erythema around the scabbed area. Decrease in area of induration. There is some fluctuance and swelling. Nontender. No drainage ASSESSMENT: 1. Left calf skin lesion and cellulitis improving with antibiotics PLAN: -No surgical intervention planned -Continue antibiotics per ID -Educated patient not to scratch or pick at his skin -Continue supportive care Physician Rotating Field Assembler note has been reviewed by physician. Signing provider agrees with the documented findings, assessment, and plan of care. Objective - Vital Signs Vital signs: Vital Signs Temp 98.1 F 01/11/21 07:53 Pulse 67 01/11/21 08:15 Resp 16 01/11/21 08:15 BP 108/61 01/11/21 07:53 Pulse Ox 95 01/11/21 07:53 Intake & Output 01/10/21 01/11/21 01/11/21 18:59 06:59 18:59 Intake Total 1120 800 340 Output Total 4800 2900 Balance -3680 -2100 340 Weight 91.3 kg Intake: Intake, IV Titration 200 100 100 Amount Furosemide 100 mg In 200 100 100 Sodium Chloride 0.9% 90 ml @ 15 MG/HR 15 mls/hr IV .Q6H40M [facility] Rx#: [id number] Oral 920 700 240 Output: Urine 4800 2900 Other: Voiding Method Urinal Urinal # Voids 1 1 - Labs CBC & Chem 7: 01/06/21 06:31 01/11/21 05:47 Labs: Abnormal Lab Results - Last 24 Hours (Table) 01/10/21 01/10/21 01/11/21 Range/Units 11:44 21:28 05:47 Carbon Dioxide 37.1 H (21.6-31.8) mmol/L BUN 82.0 H (9.0-27.0) mg/dL Creatinine 2.8 H (0.6-1.5) mg/dL Est GFR (CKD-EPI)AfAm 29.4 L (60.0-200.0) Est GFR (CKD-EPI)NonAf 25.3 L (60.0-200.0) BUN/Creatinine Ratio 29.29 H (12.00-20.00) Ratio Glucose 31 L* (70-110) mg/dL POC Glucose (mg/dL) 240 H 214 H (75-99) mg/dL Calcium 8.6 L (8.7-10.3) mg/dL ALT 50 H (10-49) U/L Alkaline Phosphatase 451 H (41-126) U/L Albumin 3.20 L (3.80-4.90) g/dL Albumin/Globulin Ratio 1.07 L (1.60-3.17) g/dL 01/11/21 01/11/21 01/11/21 Range/Units 05:55 06:11 06:37 Carbon Dioxide (21.6-31.8) mmol/L BUN (9.0-27.0) mg/dL Creatinine (0.6-1.5) mg/dL Est GFR (CKD-EPI)AfAm (60.0-200.0) Est GFR (CKD-EPI)NonAf (60.0-200.0) BUN/Creatinine Ratio (12.00-20.00) Ratio Glucose (70-110) mg/dL POC Glucose (mg/dL) 46 L 66 L 101 H (75-99) mg/dL Calcium (8.7-10.3) mg/dL ALT (10-49) U/L Alkaline Phosphatase (41-126) U/L Albumin (3.80-4.90) g/dL Albumin/Globulin Ratio (1.60-3.17) g/dL
[2021-01-11 11:49] LABS: Glucose,Whole Blood 175 mg/dL (75-99)
--- NOTE | 2021-01-11 12:20 | P.PN ---
Subjective Patient is seen in follow-up for acute kidney injury on chronic kidney disease. Maintained on Lasix drip. Urine output significantly improved. Renal function also a little better today. Hemodynamically stable. Vital signs are stable. General: The patient appeared well nourished and normally developed. HEENT: Head exam is unremarkable. Neck is without jugular venous distension. LUNGS: . Breath sounds decreased. HEART: Rate and Rhythm are regular. ABDOMEN: Soft, obese. EXTREMITITES: Trace edema. Objective - Vital Signs Vital signs: Vital Signs Temp 98.1 F 01/11/21 07:53 Pulse 67 01/11/21 08:15 Resp 16 01/11/21 08:15 BP 108/61 01/11/21 07:53 Pulse Ox 95 01/11/21 07:53 Intake & Output 01/10/21 01/11/21 01/11/21 18:59 06:59 18:59 Intake Total 1120 800 340 Output Total 4800 2900 1400 Balance -3680 -2100 -1060 Weight 91.3 kg Intake: Intake, IV Titration 200 100 100 Amount Furosemide 100 mg In 200 100 100 Sodium Chloride 0.9% 90 ml @ 15 MG/HR 15 mls/hr IV .Q6H40M [facility] Rx#: [id number] Oral 920 700 240 Output: Urine 4800 2900 1400 Other: Voiding Method Urinal Urinal # Voids 1 1 - Labs CBC & Chem 7: 01/06/21 06:31 01/11/21 05:47 Labs: Abnormal Lab Results - Last 24 Hours (Table) 01/10/21 01/11/21 01/11/21 Range/Units 21:28 05:47 05:55 Carbon Dioxide 37.1 H (21.6-31.8) mmol/L BUN 82.0 H (9.0-27.0) mg/dL Creatinine 2.8 H (0.6-1.5) mg/dL Est GFR (CKD-EPI)AfAm 29.4 L (60.0-200.0) Est GFR (CKD-EPI)NonAf 25.3 L (60.0-200.0) BUN/Creatinine Ratio 29.29 H (12.00-20.00) Ratio Glucose 31 L* (70-110) mg/dL POC Glucose (mg/dL) 214 H 46 L (75-99) mg/dL Calcium 8.6 L (8.7-10.3) mg/dL ALT 50 H (10-49) U/L Alkaline Phosphatase 451 H (41-126) U/L Albumin 3.20 L (3.80-4.90) g/dL Albumin/Globulin Ratio 1.07 L (1.60-3.17) g/dL 01/11/21 01/11/21 01/11/21 Range/Units 06:11 06:37 11:48 Carbon Dioxide (21.6-31.8) mmol/L BUN (9.0-27.0) mg/dL Creatinine (0.6-1.5) mg/dL Est GFR (CKD-EPI)AfAm (60.0-200.0) Est GFR (CKD-EPI)NonAf (60.0-200.0) BUN/Creatinine Ratio (12.00-20.00) Ratio Glucose (70-110) mg/dL POC Glucose (mg/dL) 66 L 101 H 175 H (75-99) mg/dL Calcium (8.7-10.3) mg/dL ALT (10-49) U/L Alkaline Phosphatase (41-126) U/L Albumin (3.80-4.90) g/dL Albumin/Globulin Ratio (1.60-3.17) g/dL Assessment and Plan Plan: Assessment: 1. Acute kidney injury secondary to ATN secondary to cardiorenal syndrome. Possible ALLERGIC interstitial nephritis from last admission. Serologies were negative. Prednisone stopped due to edema and improving renal function. Renal function better. Creatinine 2.8 today. 2. Chronic kidney disease stage IIIB/4 secondary to diabetic kidney disease. 3. Volume overload. Improving with diuresis. 4. Acute on chronic diastolic CHF. 5. Anemia of chronic kidney disease maintained on Aranesp. 6. Diabetes mellitus. Plan: Decreased Lasix drip to 10 mL an hour. Maintain metolazone. Avoid nephrotoxins. Continue to monitor renal function and urine output. Repeat electrolytes in the morning. Once medically stable and volume status improved, will consider renal biopsy depending on his renal function. Patient has been strongly advised to maintain a low-salt diet and a 40 ounce fluid restriction per day upon discharge.
[2021-01-11] MEDS: DARBEPOETIN ALFA 40 MCG/0.4 ML SYRINGE SQ SCH (15:49)
[2021-01-11 16:40] LABS: Glucose,Whole Blood 279 mg/dL (75-99)
--- NOTE | 2021-01-11 18:20 | PN ---
PROGRESS NOTE DATE OF SERVICE: 01/11/2021 This 50-year-old gentleman admitted with CHF, acute exacerbation, also had hypoglycemia today followed by some hyperglycemia. No chest pain. No palpitations. No fever. The patient is on daptomycin. Infectious Disease is following the patient closely. No chest pain. No palpitations. No fever. PHYSICAL EXAMINATION: Alert and oriented x3. Pulse 71, blood pressure 139/66, respiration 18, temperature 97.8, pulse ox 96% on room air. HEENT: Conjunctivae normal. NECK: No jugular venous distention. CARDIOVASCULAR SYSTEM: S1, S2 muffled. RESPIRATORY SYSTEM: Breath sounds diminished at the bases. A few scattered rhonchi. No crackles. ABDOMEN: Soft, non-tender. LEGS: No edema. No swelling. NERVOUS SYSTEM: No focal deficit. LABS: Creatinine is 2.8. ASSESSMENT: 1. Congestive heart failure, acute exacerbation, with acute on chronic diastolic dysfunction, ejection fraction 50% to 55%. 2. Recent history of allergic interstitial nephritis. 3. Lower extremity cellulitis with methicillin-resistant Staphylococcus aeruginosa. 4. Diabetes mellitus, type 2, with fluctuating hyper- and hypoglycemia. 5. Hyperkalemia secondary to acute renal failure. 6. Acute renal failure, possibly secondary to acute tubular necrosis. 7. Hyponatremia, hypovolemic. 8. Hyperlipidemia. 9. Hypertension. 10.Diabetic peripheral neuropathy. 11.Chronic obstructive pulmonary disease. 12.FULL CODE. RECOMMENDATIONS AND DISCUSSION: In this 50-year-old gentleman who presented with multiple complex medical issues, we will monitor the patient closely, continue the current medications, continue with symptomatic treatment, continue with the daptomycin. Otherwise, continue the rest of the medications. Guarded prognosis because of multiple complex medical issues. Further recommendations to follow. MMODL / IJN: [id number] /
[2021-01-11 20:05] LABS: Glucose,Whole Blood 254 mg/dL (75-99)
[2021-01-11] MEDS ORDERED: INSULIN DETEMIR (LEVEMIR) 100 UNIT/ML SYR SQ SCH (21:00)
[2021-01-11] MEDS: traZODone HCL 100 MG TAB PO SCH (21:27)
[2021-01-11] MEDS: ACETAMINOPHEN TAB 325 MG TAB PO PRN (22:23)
[2021-01-12 06:56] LABS: Glucose,Whole Blood 64 mg/dL (75-99)
[2021-01-12 07:12] LABS: Glucose,Whole Blood 65 mg/dL (75-99)
[2021-01-12] MEDS: INSULIN ASPART (NovoLOG) 100 UNIT/ML VIAL SQ SCH ×7 (07:15→20:07)
[2021-01-12 07:39] LABS: Glucose,Whole Blood 139 mg/dL (75-99)
[2021-01-12] MEDS: SYMBICORT 80-4.5 MCG INHALER INHALATION SCH ×2 (07:44→19:50)
[2021-01-12] MEDS: HEPARIN SODIUM,PORCINE/PF 5,000 UNIT/0.5 ML SYRINGE SQ SCH ×3 (08:03→23:26)
[2021-01-12] MEDS: GABAPENTIN 100 MG CAP PO SCH ×3 (08:04→20:07)
[2021-01-12] MEDS: ATORVASTATIN 40 MG TAB PO SCH (08:04)
[2021-01-12] MEDS: PANTOPRAZOLE 40 MG TABLET PO SCH (08:04)
[2021-01-12] MEDS: metOLazone 5 MG TAB PO SCH (08:04)
[2021-01-12] MEDS: DULoxetine HCL 60 MG CAPSULE.DR PO SCH (08:04)
[2021-01-12] MEDS: METOPROLOL TARTRATE 50 MG TAB PO SCH ×2 (08:04→20:07)
[2021-01-12] MEDS: guaiFENesin-Coden 100-10MG/5ML 10 ML CUP PO SCH ×3 (08:04→20:08)
[2021-01-12] MEDS: FUROSEMIDE 100 MG in SODIUM CHLORIDE 0.9% 90 ML IV SCH (08:22)
[2021-01-12 11:26] LABS: Glucose,Whole Blood 266 mg/dL (75-99)
[2021-01-12 11:40] LABS: Basophils # (A) 0.03 X 10*3/uL (0.00-0.10); Basophils % (A) 0.5 %; Eosinophils # (A) 0.28 X 10*3/uL (0.04-0.35); Eosinophils % (A) 4.9 %; HCT 30.1 % (39.6-50.0); HGB 9.1 g/dL (13.0-17.0); Lymphocytes % (A) 20.8 %; MCH 28.6 pg (27.0-32.0); MCHC 30.2 g/dL (32.0-37.0); MCV 94.7 fL (80.0-97.0); Mean Platelet Volume 10.9 fL (9.5-12.2); Monocytes # (A) 0.87 X 10*3/uL (0.20-1.00); Monocytes % (A) 15.1 %; Neutrophils # (A) 3.37 X 10*3/uL (1.80-7.70); Neutrophils % (A) 58.4 %; Platelet Count 242 X 10*3/uL (140-440); RBC 3.18 X 10*6/uL (4.40-5.60); RDW 12.9 % (11.5-14.5); WBC 5.77 X 10*3/uL (4.50-10.00)
--- NOTE | 2021-01-12 13:02 | P.PN ---
Subjective Progress Note Date: 01/12/21 CHIEF COMPLAINT: Left calf abscess with cellulitis HISTORY OF PRESENT ILLNESS: Patient has multiple wounds upper and lower extremities. History of MRSA. He is a diabetic with A1c of 13.1. Patient's left calf cellulitis and skin lesion improving with antibiotics. Patient reports no pain at skin lesion site. Also has had decrease in erythema around the scabbed area. He is afebrile. Patient continues to be on Lasix drip for his lower extremity edema PHYSICAL EXAM: VITAL SIGNS: Reviewed. GENERAL: Well-developed in no acute distress. HEENT: No sclera icterus. Extraocular movements grossly intact. Moist buccal mucosa. Head is atraumatic, normocephalic. ABDOMEN: Soft. Nondistended. Nontender. NEUROLOGIC: Alert and oriented. Cranial nerves II through XII grossly intact. Skin exam patient has multiple wounds and scabs noted on the arms and legs. The left calf there is a 2 cm circular scab with decrease in the erythema around the scabbed area. Decrease in area of induration. There is some fluctuance and swelling. Nontender. No drainage ASSESSMENT: 1. Left calf skin lesion and cellulitis improving with antibiotics PLAN: -No surgical intervention planned -Continue antibiotics per ID -Educated patient not to scratch or pick at his skin -Continue supportive care Physician Athlete Manager note has been reviewed by physician. Signing provider agrees with the documented findings, assessment, and plan of care. Objective - Vital Signs Vital signs: Vital Signs Temp 98.4 F 01/12/21 08:00 Pulse 71 01/12/21 08:00 Resp 19 01/12/21 08:00 BP 169/76 01/12/21 08:00 Pulse Ox 96 01/12/21 08:00 Intake & Output 01/11/21 01/12/21 01/12/21 18:59 06:59 18:59 Intake Total 430.5 886.25 Output Total 3050 3700 1000 Balance -2619.5 -2813.75 -1000 Weight 86.3 kg Intake: Intake, IV Titration 190.5 184.25 Amount Furosemide 100 mg In 190.5 184.25 Sodium Chloride 0.9% 90 ml @ 10 MG/HR 10 mls/hr IV .Q10H [facility] Rx#: [id number] Oral 240 702 Output: Urine 3050 3700 1000 Other: Voiding Method Urinal Urinal Urinal # Voids 1 - Labs CBC & Chem 7: 01/12/21 06:16 01/11/21 05:47 Labs: Abnormal Lab Results - Last 24 Hours (Table) 01/11/21 01/11/21 01/12/21 Range/Units 16:39 20:03 06:16 RBC 3.18 L (4.40-5.60) X 10*6/uL Hgb 9.1 L (13.0-17.0) g/dL Hct 30.1 L (39.6-50.0) % MCHC 30.2 L (32.0-37.0) g/dL POC Glucose (mg/dL) 279 H 254 H (75-99) mg/dL 01/12/21 01/12/21 01/12/21 Range/Units 06:54 07:10 07:38 RBC (4.40-5.60) X 10*6/uL Hgb (13.0-17.0) g/dL Hct (39.6-50.0) % MCHC (32.0-37.0) g/dL POC Glucose (mg/dL) 64 L 65 L 139 H (75-99) mg/dL 01/12/21 Range/Units 11:25 RBC (4.40-5.60) X 10*6/uL Hgb (13.0-17.0) g/dL Hct (39.6-50.0) % MCHC (32.0-37.0) g/dL POC Glucose (mg/dL) 266 H (75-99) mg/dL
--- NOTE | 2021-01-12 13:29 | PN ---
PROGRESS NOTE DATE OF SERVICE: 01/12/2021 REASON FOR FOLLOWUP: Bilateral lower extremities MRSA skin and soft tissue infection. INTERVAL HISTORY: Patient is currently afebrile. Patient is breathing comfortably. Did mention the swelling in the legs has gone down. He is breathing more comfortably currently on room air. No chest pain, shortness of breath or cough. No abdominal pain. No new skin and soft tissue lesions. Wounds on the legs are getting better. PHYSICAL EXAMINATION: Blood pressure 169/76, pulse of 71, temperature 98.4. He is 96% on room air. GENERAL DESCRIPTION: A middle-aged male up in the bed in no distress. RESPIRATORY SYSTEM: Unlabored breathing, clear to auscultation anteriorly. HEART: S1, S2. Regular rate and rhythm. ABDOMEN: Soft, no tenderness. EXTREMITIES: Leg swelling has gone down. No new lesions have been noticed. Previous lesions are drying out. LABS: Hemoglobin 9.1, white count of 5.77. DIAGNOSTIC IMPRESSION AND PLAN: Patient with bilateral extremity skin and soft tissue infection with MRSA. Has shown overall improvement on the IV daptomycin. Continue until Monday to finish course of therapy and close outpatient followup. MMODL / IJN: [id number] /
[2021-01-12 13:45] LABS: African American GFR (CKD) 32.1 (60.0-200.0); Anion Gap 10.7 mmol/L (4.00-12.00); BUN/Creat Ratio 28.46 Ratio (12.00-20.00); Carbon Dioxide 39.3 mmol/L (21.6-31.8); Magnesium 2.3 mg/dL (1.5-2.4); Non-African American GFR(CKD) 27.7 (60.0-200.0); Potassium 4.8 mmol/L (3.5-5.5)
--- NOTE | 2021-01-12 14:12 | P.PN ---
Subjective Patient is seen in follow-up for acute kidney injury on chronic kidney disease. Maintained on Lasix drip. Nonoliguric. Edema improved. Weight trending down. Feels better. Creatinine trending down. Vital signs are stable. General: The patient appeared well nourished and normally developed. HEENT: Head exam is unremarkable. Neck is without jugular venous distension. LUNGS: . Breath sounds decreased. HEART: Rate and Rhythm are regular. ABDOMEN: Soft, obese. EXTREMITITES: Trace edema. Objective - Vital Signs Vital signs: Vital Signs Temp 98.4 F 01/12/21 08:00 Pulse 71 01/12/21 08:00 Resp 19 01/12/21 08:00 BP 169/76 01/12/21 08:00 Pulse Ox 96 01/12/21 08:00 Intake & Output 01/11/21 01/12/21 01/12/21 18:59 06:59 18:59 Intake Total 430.5 886.25 Output Total 3050 3700 1000 Balance -2619.5 -2813.75 -1000 Weight 86.3 kg Intake: Intake, IV Titration 190.5 184.25 Amount Furosemide 100 mg In 190.5 184.25 Sodium Chloride 0.9% 90 ml @ 10 MG/HR 10 mls/hr IV .Q10H [facility] Rx#: [id number] Oral 240 702 Output: Urine 3050 3700 1000 Other: Voiding Method Urinal Urinal Urinal # Voids 1 - Labs CBC & Chem 7: 01/12/21 06:16 01/12/21 06:16 Labs: Abnormal Lab Results - Last 24 Hours (Table) 01/11/21 01/11/21 01/12/21 Range/Units 16:39 20:03 06:16 RBC (4.40-5.60) X 10*6/uL Hgb (13.0-17.0) g/dL Hct (39.6-50.0) % MCHC (32.0-37.0) g/dL Chloride 92 L (96-109) mmol/L Carbon Dioxide 39.3 H (21.6-31.8) mmol/L BUN 74.0 H (9.0-27.0) mg/dL Creatinine 2.6 H (0.6-1.5) mg/dL Est GFR (CKD-EPI)AfAm 32.1 L (60.0-200.0) Est GFR (CKD-EPI)NonAf 27.7 L (60.0-200.0) BUN/Creatinine Ratio 28.46 H (12.00-20.00) Ratio Glucose 61 L (70-110) mg/dL POC Glucose (mg/dL) 279 H 254 H (75-99) mg/dL 01/12/21 01/12/21 01/12/21 Range/Units 06:16 06:54 07:10 RBC 3.18 L (4.40-5.60) X 10*6/uL Hgb 9.1 L (13.0-17.0) g/dL Hct 30.1 L (39.6-50.0) % MCHC 30.2 L (32.0-37.0) g/dL Chloride (96-109) mmol/L Carbon Dioxide (21.6-31.8) mmol/L BUN (9.0-27.0) mg/dL Creatinine (0.6-1.5) mg/dL Est GFR (CKD-EPI)AfAm (60.0-200.0) Est GFR (CKD-EPI)NonAf (60.0-200.0) BUN/Creatinine Ratio (12.00-20.00) Ratio Glucose (70-110) mg/dL POC Glucose (mg/dL) 64 L 65 L (75-99) mg/dL 01/12/21 01/12/21 Range/Units 07:38 11:25 RBC (4.40-5.60) X 10*6/uL Hgb (13.0-17.0) g/dL Hct (39.6-50.0) % MCHC (32.0-37.0) g/dL Chloride (96-109) mmol/L Carbon Dioxide (21.6-31.8) mmol/L BUN (9.0-27.0) mg/dL Creatinine (0.6-1.5) mg/dL Est GFR (CKD-EPI)AfAm (60.0-200.0) Est GFR (CKD-EPI)NonAf (60.0-200.0) BUN/Creatinine Ratio (12.00-20.00) Ratio Glucose (70-110) mg/dL POC Glucose (mg/dL) 139 H 266 H (75-99) mg/dL Assessment and Plan Plan: Assessment: 1. Acute kidney injury secondary to ATN secondary to cardiorenal syndrome. Possible ALLERGIC interstitial nephritis from last admission. Serologies were negative. Prednisone stopped due to edema and improving renal function. Renal function better. Creatinine 2.6 today. 2. Chronic kidney disease stage IIIB/4 secondary to diabetic kidney disease. Baseline creatinine in the range of 1.5-2. 3. Volume overload. Improving with diuresis. 4. Acute on chronic diastolic CHF. 5. Anemia of chronic kidney disease maintained on Aranesp. 6. Diabetes mellitus. Plan: Stop Lasix drip. Add oral Lasix 40 mg twice daily. Avoid nephrotoxins. Continue to monitor renal function and urine output. Repeat electrolytes in the morning. Patient has been strongly advised to maintain a low-salt diet and a 40 ounce fluid restriction per day upon discharge. Anticipate discharge soon. Repeat BMP and magnesium level 2-3 days postdischarge. Follow up outpatient in 1 week.
[2021-01-12 16:31] LABS: Glucose,Whole Blood 239 mg/dL (75-99)
[2021-01-12] MEDS: FUROSEMIDE 40 MG TAB PO SCH (17:36)
--- NOTE | 2021-01-12 17:50 | PN ---
PROGRESS NOTE DATE OF SERVICE: 01/12/2021 This 50-year-old gentleman admitted with CHF, acute exacerbation, is on Lasix drip. Multiple consultants are following the patient closely. No chest pain. No palpitation. Shortness of breath is reported. PHYSICAL EXAMINATION: Alert and oriented x3. Pulse 71, blood pressure 169/73, respirations 19, temperature 98.4, pulse ox 98% on room air. HEENT: Conjunctivae normal. NECK: No jugular venous distention. CARDIOVASCULAR SYSTEM: S1, S2 muffled. RESPIRATORY SYSTEM: Breath sounds diminished at the bases. A few scattered rhonchi. ABDOMEN: Soft, non-tender. LEGS: No edema. No swelling. NERVOUS SYSTEM: No focal deficit. LABS: Hemoglobin 9.1 and creatinine is 2.6. Glucose is 64 and 65. ASSESSMENT: 1. Congestive heart failure, acute exacerbation, with acute on chronic diastolic dysfunction, ejection fraction 50% to 55%, on IV Lasix drip. 2. Recent history of allergic interstitial nephritis. 3. Diabetes mellitus, type 2, uncontrolled, with hypoglycemia. 4. Lower extremity cellulitis with methicillin-resistant Staphylococcus aeruginosa. 5. Hyperkalemia secondary to acute renal failure. 6. Acute renal failure, possibly secondary to acute tubular necrosis. 7. Hyponatremia, hypovolemic. 8. Hyperlipidemia. 9. Hypertension. 10.Diabetic peripheral neuropathy. 11.Chronic obstructive pulmonary disease. 12.FULL CODE. RECOMMENDATIONS AND DISCUSSION: I recommend to continue current medications, continue with the monitoring, symptomatic treatment. Reduce the dose of Lantus. Repeat labs tomorrow. Closely follow with Nephrology. Guarded prognosis. Further recommendations to follow. MMODL / IJN: [id number] /
[2021-01-12] MEDS: INSULIN DETEMIR (LEVEMIR) 100 UNIT/ML SYR SQ SCH (20:07)
[2021-01-12] MEDS: traZODone HCL 100 MG TAB PO SCH (20:07)
[2021-01-12 20:08] LABS: Glucose,Whole Blood 185 mg/dL (75-99)
[2021-01-12] MEDS: ACETAMINOPHEN TAB 325 MG TAB PO PRN (20:10)
[2021-01-13 07:10] LABS: Glucose,Whole Blood 79 mg/dL (75-99)
[2021-01-13] MEDS: SYMBICORT 80-4.5 MCG INHALER INHALATION SCH ×2 (07:27→19:36)
[2021-01-13 07:52] LABS: African American GFR (CKD) 33 (>60 ml/min/1.73 sqM); Blood Urea Nitrogen 66 mg/dL (9-20); Calcium 8.5 mg/dL (8.4-10.2); Chloride 92 mmol/L (98-107); Glucose 102 mg/dL (74-99); Magnesium 2.1 mg/dL (1.6-2.3); Non-African American GFR(CKD) 28 (>60 ml/min/1.73 sqM); Potassium 4.1 mmol/L (3.5-5.1); Sodium 139 mmol/L (137-145)
[2021-01-13 07:59] LABS: Anion Gap 8 mmol/L
[2021-01-13] MEDS: INSULIN ASPART (NovoLOG) 100 UNIT/ML VIAL SQ SCH ×7 (08:00→20:16)
[2021-01-13 08:03] LABS: Carbon Dioxide 39 mmol/L (22-30)
[2021-01-13] MEDS: METOPROLOL TARTRATE 50 MG TAB PO SCH ×2 (08:10→20:16)
[2021-01-13] MEDS: PANTOPRAZOLE 40 MG TABLET PO SCH (08:10)
[2021-01-13] MEDS: ATORVASTATIN 40 MG TAB PO SCH (08:10)
[2021-01-13] MEDS: HEPARIN SODIUM,PORCINE/PF 5,000 UNIT/0.5 ML SYRINGE SQ SCH ×3 (08:10→23:03)
[2021-01-13] MEDS: DULoxetine HCL 60 MG CAPSULE.DR PO SCH (08:10)
[2021-01-13] MEDS: FUROSEMIDE 40 MG TAB PO SCH ×2 (08:10→17:38)
[2021-01-13] MEDS: guaiFENesin-Coden 100-10MG/5ML 10 ML CUP PO SCH ×3 (08:10→20:16)
[2021-01-13] MEDS: GABAPENTIN 100 MG CAP PO SCH ×3 (08:10→20:16)
--- NOTE | 2021-01-13 10:27 | P.PN ---
Subjective Progress Note Date: 01/13/21 CHIEF COMPLAINT: Left calf abscess with cellulitis HISTORY OF PRESENT ILLNESS: Patient has multiple wounds upper and lower extremities. History of MRSA. He is a diabetic with A1c of 13.1. Patient's left calf cellulitis and skin lesion improving with antibiotics. Patient reports no pain at skin lesion site. Also has had decrease in erythema around the scabbed area. He is afebrile. Nephrology switch patient to oral Lasix PHYSICAL EXAM: VITAL SIGNS: Reviewed. GENERAL: Well-developed in no acute distress. HEENT: No sclera icterus. Extraocular movements grossly intact. Moist buccal mucosa. Head is atraumatic, normocephalic. ABDOMEN: Soft. Nondistended. Nontender. NEUROLOGIC: Alert and oriented. Cranial nerves II through XII grossly intact. Skin exam patient has multiple wounds and scabs noted on the arms and legs. The left calf there is a 2 cm circular scab with decrease in the erythema around the scabbed area. Decrease in swelling. Nontender. No drainage ASSESSMENT: 1. Left calf skin lesion and cellulitis improving with antibiotics PLAN: -No surgical intervention planned -Continue antibiotics per ID -Continue supportive care Physician Application Internship note has been reviewed by physician. Signing provider agrees with the documented findings, assessment, and plan of care. Objective - Vital Signs Vital signs: Vital Signs Temp 98.3 F 01/13/21 08:00 Pulse 65 01/13/21 08:00 Resp 16 01/13/21 08:00 BP 128/79 01/13/21 08:00 Pulse Ox 98 01/13/21 08:00 Intake & Output 01/12/21 01/13/21 01/13/21 18:59 06:59 18:59 Intake Total 1386 Output Total 1999 1500 Balance -614 -1500 Weight 85.2 kg Intake: Oral 1386 Output: Urine 1999 1500 Other: Voiding Method Urinal - Labs CBC & Chem 7: 01/12/21 06:16 01/13/21 05:50 Labs: Abnormal Lab Results - Last 24 Hours (Table) 01/12/21 01/12/21 01/12/21 Range/Units 06:16 06:16 11:25 RBC 3.18 L (4.40-5.60) X 10*6/uL Hgb 9.1 L (13.0-17.0) g/dL Hct 30.1 L (39.6-50.0) % MCHC 30.2 L (32.0-37.0) g/dL Chloride 92 L (96-109) mmol/L Carbon Dioxide 39.3 H (21.6-31.8) mmol/L BUN 74.0 H (9.0-27.0) mg/dL Creatinine 2.6 H (0.6-1.5) mg/dL Est GFR (CKD-EPI)AfAm 32.1 L (60.0-200.0) Est GFR (CKD-EPI)NonAf 27.7 L (60.0-200.0) BUN/Creatinine Ratio 28.46 H (12.00-20.00) Ratio Glucose 61 L (70-110) mg/dL POC Glucose (mg/dL) 266 H (75-99) mg/dL 01/12/21 01/12/21 01/13/21 Range/Units 16:30 20:04 05:50 RBC (4.40-5.60) X 10*6/uL Hgb (13.0-17.0) g/dL Hct (39.6-50.0) % MCHC (32.0-37.0) g/dL Chloride 92 L (96-109) mmol/L Carbon Dioxide 39 H (21.6-31.8) mmol/L BUN 66 H (9.0-27.0) mg/dL Creatinine 2.55 H (0.6-1.5) mg/dL Est GFR (CKD-EPI)AfAm (60.0-200.0) Est GFR (CKD-EPI)NonAf (60.0-200.0) BUN/Creatinine Ratio (12.00-20.00) Ratio Glucose 102 H (70-110) mg/dL POC Glucose (mg/dL) 239 H 185 H (75-99) mg/dL
[2021-01-13 12:02] LABS: Glucose,Whole Blood 271 mg/dL (75-99)
--- NOTE | 2021-01-13 13:44 | P.PN ---
Subjective Patient is seen in follow-up for acute kidney injury on chronic kidney disease. Maintained on IV push Lasix. Renal function stable. Nonoliguric. Weight trending down. Blood pressure controlled. Vital signs are stable. General: The patient appeared well nourished and normally developed. HEENT: Head exam is unremarkable. Neck is without jugular venous distension. LUNGS: . Breath sounds decreased. HEART: Rate and Rhythm are regular. ABDOMEN: Soft, no distention noted. EXTREMITITES: Trace edema. Objective - Vital Signs Vital signs: Vital Signs Temp 98.3 F 01/13/21 08:00 Pulse 65 01/13/21 08:00 Resp 16 01/13/21 08:00 BP 128/79 01/13/21 08:00 Pulse Ox 98 01/13/21 08:00 Intake & Output 01/12/21 01/13/21 01/13/21 18:59 06:59 18:59 Intake Total 1386 Output Total 2000 1500 Balance -614 -1500 Weight 85.2 kg Intake: Oral 1386 Output: Urine 1999 1500 Other: Voiding Method Urinal - Labs CBC & Chem 7: 01/12/21 06:16 01/13/21 05:50 Labs: Abnormal Lab Results - Last 24 Hours (Table) 01/12/21 01/12/21 01/12/21 Range/Units 06:16 16:30 20:04 Chloride 92 L (96-109) mmol/L Carbon Dioxide 39.3 H (21.6-31.8) mmol/L BUN 74.0 H (9.0-27.0) mg/dL Creatinine 2.6 H (0.6-1.5) mg/dL Est GFR (CKD-EPI)AfAm 32.1 L (60.0-200.0) Est GFR (CKD-EPI)NonAf 27.7 L (60.0-200.0) BUN/Creatinine Ratio 28.46 H (12.00-20.00) Ratio Glucose 61 L (70-110) mg/dL POC Glucose (mg/dL) 239 H 185 H (75-99) mg/dL 01/13/21 01/13/21 Range/Units 05:50 11:58 Chloride 92 L (96-109) mmol/L Carbon Dioxide 39 H (21.6-31.8) mmol/L BUN 66 H (9.0-27.0) mg/dL Creatinine 2.55 H (0.6-1.5) mg/dL Est GFR (CKD-EPI)AfAm (60.0-200.0) Est GFR (CKD-EPI)NonAf (60.0-200.0) BUN/Creatinine Ratio (12.00-20.00) Ratio Glucose 102 H (70-110) mg/dL POC Glucose (mg/dL) 271 H (75-99) mg/dL Assessment and Plan Plan: Assessment: 1. Acute kidney injury secondary to ATN secondary to cardiorenal syndrome. Possible ALLERGIC interstitial nephritis from last admission. Serologies were negative. Prednisone stopped due to edema and improving renal function. Renal function better. Creatinine 2.55 today. 2. Chronic kidney disease stage IIIB/4 secondary to diabetic kidney disease. Baseline creatinine in the range of 1.5-2. 3. Volume overload. Improved with diuresis. 4. Acute on chronic diastolic CHF. 5. Anemia of chronic kidney disease maintained on Aranesp. 6. Diabetes mellitus. Plan: Maintain oral Lasix 40 mg twice daily. Avoid nephrotoxins. Continue to monitor renal function and urine output. Repeat electrolytes in the morning. Patient has been strongly advised to maintain a low-salt diet and a 40 ounce fluid restriction per day upon discharge. Anticipate discharge soon. Repeat BMP and magnesium level 2-3 days postdischarge. Follow up outpatient in 1 week. Patient was also advised to monitor his weight closely at home - to call if gains more than 3 pounds in 1 week duration.
[2021-01-13 16:32] LABS: Glucose,Whole Blood 162 mg/dL (75-99)
[2021-01-13 20:11] LABS: Glucose,Whole Blood 310 mg/dL (75-99)
--- NOTE | 2021-01-13 20:13 | PN ---
PROGRESS NOTE DATE OF SERVICE: 01/13/2021 This 50-year-old gentleman who was admitted with CHF, acute exacerbation, was on Lasix drip. The patient is improving significantly. No chest pain. No palpitations. No fever. PHYSICAL EXAMINATION: Alert and oriented x3. Pulse 68, blood pressure 163/70, respiration 20, temperature 98.2, pulse ox 100% on room air. HEENT: Conjunctivae normal. NECK: No jugular venous distention. CARDIOVASCULAR SYSTEM: S1, S2 muffled. RESPIRATORY SYSTEM: Breath sounds diminished at the bases. Scattered rhonchi. ABDOMEN: Soft. NERVOUS SYSTEM: No focal deficit. LABS: Creatinine is 2.35. ASSESSMENT: 1. Congestive heart failure, acute exacerbation, with acute on chronic diastolic dysfunction, ejection fraction 50% to 55%, on IV Lasix drip. 2. Recent history of allergic interstitial nephritis. 3. Diabetes mellitus, type 2, uncontrolled with hypoglycemia. 4. Lower extremity cellulitis with methicillin-resistant Staphylococcus aeruginosa. 5. Hyperkalemia secondary to acute renal failure. 6. Acute renal failure, possibly secondary to acute tubular necrosis. 7. Hyponatremia, hypovolemic. 8. Hyperlipidemia. 9. Hypertension. 10.Diabetic peripheral neuropathy. 11.Chronic obstructive pulmonary disease. 12.FULL CODE. RECOMMENDATIONS AND DISCUSSION: I recommend to continue current medications, continue with the monitoring, symptomatic treatment. Convert the Lasix to p.o. Otherwise, closely follow with multiple consultants, including Nephrology. Infectious Disease is following the patient closely. Recommend IV daptomycin until Monday to finish the course of therapy. Will continue to monitor. Guarded prognosis. Further recommendations to follow. MMODL / IJN: [id number] /
[2021-01-13] MEDS: INSULIN DETEMIR (LEVEMIR) 100 UNIT/ML SYR SQ SCH (20:15)
[2021-01-13] MEDS: traZODone HCL 100 MG TAB PO SCH (20:16)
--- NOTE | 2021-01-13 21:46 | PN ---
PROGRESS NOTE DATE OF SERVICE: 01/13/2021 REASON FOR FOLLOWUP: Bilateral lower extremity wound and cellulitis. INTERVAL HISTORY: Patient is afebrile, has been breathing comfortably. Denies having any chest pain, shortness of breath, cough, no abdominal pain, or any worsening pain to the lower extremity. PHYSICAL EXAMINATION: Blood pressure 136/72 with a pulse of 77, temperature 98.5. He is 98% on room air. General description is a middle-aged male lying in bed in no distress. Respiratory system: Unlabored breathing, clear to auscultation anteriorly. Heart S1, S2. Regular rate and rhythm. Abdomen soft, no tenderness. Lower extremities wounds are drying out, especially right leg. The left posterior leg still has slight area of induration and redness. LABS: BUN of 66, creatinine is 2.55. DIAGNOSTIC IMPRESSION AND PLAN: Patient with bilateral lower extremity cellulitis, MRSA infection with concern for possible left leg. Surgery recommending surgical drainage. Patient to continue with daptomycin for another 4-5 days to finish a course of therapy. Continue supportive care. MMODL / IJN: [id number] /
[2021-01-14 01:28] VITALS: TEMP 98.3
[2021-01-14 06:48] LABS: Glucose,Whole Blood 209 mg/dL (75-99)
[2021-01-14] MEDS: SYMBICORT 80-4.5 MCG INHALER INHALATION SCH (07:34)
[2021-01-14 08:14] VITALS: BP 168/74; PULSE 69; RESP 18
[2021-01-14] MEDS: METOPROLOL TARTRATE 50 MG TAB PO SCH (08:33)
[2021-01-14] MEDS: FUROSEMIDE 40 MG TAB PO SCH (08:34)
[2021-01-14] MEDS: PANTOPRAZOLE 40 MG TABLET PO SCH (08:34)
[2021-01-14] MEDS: GABAPENTIN 100 MG CAP PO SCH (08:34)
[2021-01-14] MEDS: HEPARIN SODIUM,PORCINE/PF 5,000 UNIT/0.5 ML SYRINGE SQ SCH (08:34)
[2021-01-14] MEDS: DULoxetine HCL 60 MG CAPSULE.DR PO SCH (08:34)
[2021-01-14] MEDS: ATORVASTATIN 40 MG TAB PO SCH (08:34)
[2021-01-14] MEDS: INSULIN ASPART (NovoLOG) 100 UNIT/ML VIAL SQ SCH ×4 (08:34→12:26)
[2021-01-14] MEDS: guaiFENesin-Coden 100-10MG/5ML 10 ML CUP PO SCH (08:37)
[2021-01-14] MEDS: SEMAGLUTIDE 1 MG/0.75 ML SQ SCH (09:53)
[2021-01-14 10:05] LABS: Basophils # (A) 0.04 X 10*3/uL (0.00-0.10); Basophils % (A) 0.8 %; Eosinophils # (A) 0.21 X 10*3/uL (0.04-0.35); Eosinophils % (A) 4.3 %; HCT 28.8 % (39.6-50.0); HGB 8.8 g/dL (13.0-17.0); Lymphocytes # (A) 1.13 X 10*3/uL (0.90-5.00); MCH 28.9 pg (27.0-32.0); MCHC 30.6 g/dL (32.0-37.0); MCV 94.4 fL (80.0-97.0); Mean Platelet Volume 10.9 fL (9.5-12.2); Monocytes # (A) 0.66 X 10*3/uL (0.20-1.00); Monocytes % (A) 13.4 %; Neutrophils # (A) 2.85 X 10*3/uL (1.80-7.70); Neutrophils % (A) 58.1 %; Platelet Count 216 X 10*3/uL (140-440); RBC 3.05 X 10*6/uL (4.40-5.60); RDW 12.6 % (11.5-14.5); WBC 4.91 X 10*3/uL (4.50-10.00)
--- NOTE | 2021-01-14 11:40 | P.PN ---
Subjective Patient is seen in follow-up for acute kidney injury on chronic kidney disease. Maintained on po Lasix. Renal function stable as of yesterday. Nonoliguric. Weight trending down. No complaints. Blood pressure controlled. Vital signs are stable. General: The patient appeared well nourished and normally developed. HEENT: Head exam is unremarkable. Neck is without jugular venous distension. LUNGS: . Breath sounds decreased. HEART: Rate and Rhythm are regular. ABDOMEN: Soft, no distention noted. EXTREMITITES: Trace edema. Objective - Vital Signs Vital signs: Vital Signs Temp 98.3 F 01/14/21 07:16 Pulse 69 01/14/21 07:16 Resp 18 01/14/21 07:16 BP 168/74 01/14/21 07:16 Pulse Ox 99 01/14/21 07:16 Intake & Output 01/13/21 01/14/21 01/14/21 18:59 06:59 18:59 Intake Total 2268 222 540 Output Total 2200 2075 Balance 68 -1853 540 Weight 84.1 kg Intake: Oral 2268 540 Other 222 Output: Urine 2199 2074 Other: Voiding Method Urinal - Labs CBC & Chem 7: 01/14/21 05:40 01/13/21 05:50 Labs: Abnormal Lab Results - Last 24 Hours (Table) 01/13/21 01/13/21 01/13/21 Range/Units 11:58 16:27 20:10 RBC (4.40-5.60) X 10*6/uL Hgb (13.0-17.0) g/dL Hct (39.6-50.0) % MCHC (32.0-37.0) g/dL POC Glucose (mg/dL) 271 H 162 H 310 H (75-99) mg/dL 01/14/21 01/14/21 Range/Units 05:40 06:46 RBC 3.05 L (4.40-5.60) X 10*6/uL Hgb 8.8 L (13.0-17.0) g/dL Hct 28.8 L (39.6-50.0) % MCHC 30.6 L (32.0-37.0) g/dL POC Glucose (mg/dL) 209 H (75-99) mg/dL Assessment and Plan Plan: Assessment: 1. Acute kidney injury secondary to ATN secondary to cardiorenal syndrome. Possible ALLERGIC interstitial nephritis from last admission. Serologies were negative. Prednisone stopped due to edema and improving renal function. Renal function better. Creatinine 2.55 as of yesterday. 2. Chronic kidney disease stage IIIB/4 secondary to diabetic kidney disease. Baseline creatinine in the range of 1.5-2. 3. Volume overload. Improved with diuresis. 4. Acute on chronic diastolic CHF. 5. Anemia of chronic kidney disease maintained on Aranesp. 6. Diabetes mellitus. Plan: Maintain oral Lasix 40 mg twice daily. Avoid nephrotoxins. Continue to monitor renal function and urine output. Repeat electrolytes in the morning. Patient has been strongly advised to maintain a low-salt diet and a 40 ounce fluid restriction per day upon discharge. Anticipate discharge soon. Repeat BMP and magnesium level 2-3 days postdischar ge. Follow up outpatient in 1 week. Patient was also advised to monitor his weight closely at home - to call if gains more than 3 pounds in 1 week duration.
--- NOTE | 2021-01-14 11:46 | PN ---
PROGRESS NOTE DATE OF SERVICE: 01/14/2021 REASON FOR FOLLOWUP: Bilateral lower extremity MRSA infection. INTERVAL HISTORY: The patient is currently afebrile. The patient has spontaneous drainage of the left posterior leg abscess. The patient did mention decrease in the pain after spontaneous drainage. Denies having any chest pain, shortness of breath, abdominal pain, no diarrhea. PHYSICAL EXAMINATION: VITAL SIGNS: Bp 168/74, pulse 69, temperature 98.3, he is 99% on room air. GENERAL DESCRIPTION: A middle-aged male up in the room in no distress. RESPIRATORY SYSTEM: Unlabored breathing, clear to auscultation anteriorly. HEART: S1, S2. Regular rate and rhythm. ABDOMEN: Soft, no tenderness. EXTREMITIES: Left posterior leg wound is currently dressed with no drainage on the dressing. LABS: Hemoglobin is 8.1, white count 4.91. DIAGNOSTIC IMPRESSION AND PLAN: Patient with left posterior leg abscess and cellulitis, status post spontaneous drainage with a history of right leg MRSA infection with overall improvement with daptomycin to continue for 5 days on discharge and advised to follow up [facility] next week. Local care with Aquacel Silver dressing. Questions and concerns were answered. MMODL / IJN: [id number] /
[2021-01-14 12:17] LABS: Glucose,Whole Blood 61 mg/dL (75-99)
[2021-01-14 12:21] LABS: Glucose,Whole Blood 65 mg/dL (75-99)
[2021-01-14 12:33] LABS: Glucose,Whole Blood 70 mg/dL (75-99)
--- NOTE | 2021-01-14 13:35 | P.PN ---
Subjective Progress Note Date: 01/14/21 CHIEF COMPLAINT: Left calf abscess with cellulitis HISTORY OF PRESENT ILLNESS: Patient has multiple wounds upper and lower extremities. History of MRSA. He is a diabetic with A1c of 13.1. Patient's left calf cellulitis and skin lesion improving with antibiotics. The skin lesion is now starting to drain. Patient reports no pain at skin lesion site. Also has had decrease in erythema around the scabbed area. He is afebrile. WBC 4.91 PHYSICAL EXAM: VITAL SIGNS: Reviewed. GENERAL: Well-developed in no acute distress. HEENT: No sclera icterus. Extraocular movements grossly intact. Moist buccal mucosa. Head is atraumatic, normocephalic. ABDOMEN: Soft. Nondistended. Nontender. NEUROLOGIC: Alert and oriented. Cranial nerves II through XII grossly intact. Skin exam patient has multiple wounds and scabs noted on the arms and legs. The left calf there is a 2 cm circular scab with decrease in the erythema around the scabbed area. Decrease in swelling. Nontender. Minimal drainage noted ASSESSMENT: 1. Left calf skin lesion and cellulitis improving with antibiotics PLAN: -No surgical intervention planned -Continue antibiotics per ID -Continue supportive care Physician Roll Contour Grinder note has been reviewed by physician. Signing provider agrees with the documented findings, assessment, and plan of care. Objective - Vital Signs Vital signs: Vital Signs Temp 98.3 F 01/14/21 07:16 Pulse 69 01/14/21 07:16 Resp 18 01/14/21 07:16 BP 168/74 01/14/21 07:16 Pulse Ox 99 01/14/21 07:16 Intake & Output 01/13/21 01/14/21 01/14/21 18:59 06:59 18:59 Intake Total 2268 222 540 Output Total 2199 2074 Balance 68 -1853 540 Weight 84.1 kg Intake: Oral 2268 540 Other 222 Output: Urine 2199 2074 Other: Voiding Method Urinal - Labs CBC & Chem 7: 01/14/21 05:40 01/13/21 05:50 Labs: Abnormal Lab Results - Last 24 Hours (Table) 01/13/21 01/13/21 01/14/21 Range/Units 16:27 20:10 05:40 RBC 3.05 L (4.40-5.60) X 10*6/uL Hgb 8.8 L (13.0-17.0) g/dL Hct 28.8 L (39.6-50.0) % MCHC 30.6 L (32.0-37.0) g/dL POC Glucose (mg/dL) 162 H 310 H (75-99) mg/dL 01/14/21 01/14/21 01/14/21 Range/Units 06:46 12:09 12:19 RBC (4.40-5.60) X 10*6/uL Hgb (13.0-17.0) g/dL Hct (39.6-50.0) % MCHC (32.0-37.0) g/dL POC Glucose (mg/dL) 209 H 61 L 65 L (75-99) mg/dL 01/14/21 Range/Units 12:31 RBC (4.40-5.60) X 10*6/uL Hgb (13.0-17.0) g/dL Hct (39.6-50.0) % MCHC (32.0-37.0) g/dL POC Glucose (mg/dL) 70 L (75-99) mg/dL
--- NOTE | 2021-01-14 14:06 | CDI ---
Documentation Clarification Form Date: 01/14/2021 01:52:33 PM From: Joanna Ramires CCS, CCDS Admit Date: 01/04/2021 11:35:00 AM Patient Name: Marquez Squires Visit Number: [id number] Discharge Date: ATTENTION: The Clinical Documentation Specialists (CDI) and [facility] Coding Staff appreciate your assistance in clarifying documentation. Please respond to the clarification below the line at the bottom and electronically sign. The CDI & [facility] Coding staff will review the response and follow-up if needed. Please note: Queries are made part of the Legal Health Record. If you have any questions, please contact the author of this message via ITS. Dr. Niko Coffey: Your patient has Dyspnea, Hypoxia and respiratory distress with rales documented in the 01/04 ED Note & the 01/04 H/P with initial pulse ox in the ED of 84% on room air, patient was put on 6Lnc with pulse ox of 93-94%. Based on this information and the findings below, is there an additional diagnosis that is clinically appropriate for this patient? History/Risk Factors per the 01/04 ED Note Past Medical History: Heart Failure, IDDM II, Hypertension, Hyperlipidemia, MRSA of Right knee, Anxiety and Former smoker. Per the 01/04 H/P the patient also has COPD without acute exacerbation. Clinical Indicators: Presented to the ED on 01/04 from an infusion center with chest pain and dyspnea for a week with history of CHF. Recent MRSA infection on IV antibiotics. Found to be hypoxic & hypertensive with lower extremity swelling greater on left. ED Clinical Impression: CHF 01/04 VS: T 98.7, P 89, R 20 (labored), BP 218/112, PO 84 RA - 95 on 6Lnc. BMI: 29.0 01/04 LAB: Hgb 10.0, Hct 31.1, Lymph 0.7, Na 128, K 5.3, Cl 92, BUN 70, Cr 2.34, Glucose 601, Philip 8.2, Mag 2.7, ALT 70, Alk Phos 366, Albumin 3.2. Influenza A/B, RSV & COVID all negative 01/04 CXR: New moderate focal airspace opacities of the bilateral upper lobes likely multilobar pneumonia. Treatment 5/3: O2 4-6Lnc, IV Lasix, IV Insulin, Heparin sq, INH Symbicort. Patient's own Prednisone continued. Is there an additional diagnosis that is clinically appropriate for this patient? [ ] Acute Hypoxic Respiratory Failure [ ] Acute on Chronic Hypoxic Respiratory Failure [ ] Chronic Hypoxic Respiratory Failure [ ] Other Diagnosis, please specify [ ] Unable to determine (Template Last Revised: November 2020) Acute Hypoxic Respiratory Failure MTDD
[2021-01-14 15:12] LABS: African American GFR (CKD) 35.4 (60.0-200.0); BUN/Creat Ratio 26.25 Ratio (12.00-20.00); Calcium 8.3 mg/dL (8.7-10.3); Non-African American GFR(CKD) 30.5 (60.0-200.0); Potassium 4.5 mmol/L (3.5-5.5)
--- NOTE | 2021-01-15 08:47 | DS ---
DISCHARGE SUMMARY DATE OF SERVICE: 01/14/2021 FINAL DIAGNOSIS: 1. Congestive heart failure acute exacerbation with acute on chronic diastolic dysfunction, ejection fraction 50-55%, status post IV Lasix drip. 2. Recent history of allergic interstitial nephritis. 3. Diabetes mellitus type 2, uncontrolled with hypoglycemia. 4. Lower extremity cellulitis with MRSA. 5. Hyperkalemia secondary to acute renal failure. 6. Acute renal failure possibly secondary to acute tubular necrosis. 7. Hyponatremia, hypovolemic. 8. Hyperlipidemia. 9. Hypertension. 10.Diabetic peripheral neuropathy. 11.Chronic obstructive pulmonary disease. 12.Status post PICC line. 13.FULL CODE. DISPOSITION: The patient will be discharged in stable condition with guarded prognosis. HISTORY OF PRESENT ILLNESS: Total time taken was 35 minutes history. This is a 50-year-old gentleman with a past medical history of multiple medical problems , who was admitted with CHF acute exacerbation and multiple other medical problems. Patient treated with IV Lasix drip. Multiple consultants including Infectious Disease, Dr. Christine and Nephrology saw the patient with hospital physician. Patient also completed a course of daptomycin IV per Dr. Milligan. PHYSICAL EXAMINATION: On exam, vitals are stable. Cardiovascular S1 and S2. Abdomen soft. Nervous system with no focal deficits. DISCHARGE ACTIVITIES: Discharge diet is cardiac. Activity is limited until followup. Follow up with as recommended in 2-3 days. Follow up with Dr. Christine as recommend. Follow up with Dr. Dayday Dickson as recommended. 1. Continue with IV daptomycin through a PICC line per Dr. Milligan. 2. Advair 1 puff b.i.d. 3. Aranesp 40 minutes mcg subcu Monday. 4. Cymbalta 60 mg p.o. daily. 5. Nitrostat p.r.n. 6. NovoLog scale per protocol. 7. Ozempic 1 mg subcu . 8. Albuterol p.r.n. 9. Tylenol p.r.n. 10.Zofran 4 mg t.i.d. p.r.n. 11.Lantus 30 units subcu q.h.s. 12.Desyrel 100 mg q.h.s. 13.Lasix 40 mg p.o. b.i.d. 14.Lipitor 40 mg p.o. daily. 15.Lopressor 50 mg p.o. b.i.d. 16.Neurontin 100 mg p.o. t.i.d. 17.NovoLog 10 mg a.c. t.i.d. 18.Prilosec 40 mg b.i.d. 19.Guaifenesin 10 mg p.o. t.i.d. Once again the patient will be discharged in stable condition. Guarded prognosis. MMODL / IJN: [id number] / MTDD
--- NOTE | 2021-01-18 09:19 | CONS ---
CONSULTATION CHIEF COMPLAINT: Uncontrolled hypertension. This is a 50-year-old gentleman with history of chronic renal insufficiency, hypertension, type 2 diabetes, chronic diastolic heart failure, recurrent syncope, presented to the emergency room because of elevated blood pressures. The patient was in the hospital to receive IV antibiotics for cellulitis and his blood pressure was elevated due to which patient is admitted to hospital. He does not have chest pain, difficulty in breathing, leg edema, PND or orthopnea. The patient has history of bilateral lower extremities superficial ulcerations secondary to MRSA infection and also had interstitial nephritis and renal failure as a result. He was admitted to hospital on 01/04/2021 and was discharged home and comes back in because of the elevated blood pressures. The patient has history of moderate aortic regurgitation. Recent echocardiogram showed an ejection fraction of 55% to 60%, mild to moderate aortic regurgitation. Since being admitted to hospital, he is doing well and is free of significant symptoms. Blood pressure is better controlled this morning at 150s systolic. When he first arrived to the hospital, his blood pressures were in the 200s. The patient had a dobutamine stress echo that is negative for ischemia in November of 2019. He was on multiple blood pressure medications that have been changed recently. At the time of his admission, he was on metoprolol 50 b.i.d. PAST MEDICAL HISTORY: Significant for type 2 diabetes, hypertension, chronic renal failure, insulin-requiring diabetes. MEDICATIONS: Medications at home include Desyrel, Robitussin, Zofran, Prilosec, Nitrostat, Lopressor 50 b.i.d., insulin, Lasix 40 mg b.i.d., Neurontin, Cymbalta, Lipitor, ProAir, and IV antibiotics, the course will complete tomorrow. ALLERGIES: There are no known drug allergies. FAMILY HISTORY: Negative for premature coronary artery disease. SOCIAL HISTORY: He denies current smoking, EtOH abuse, or drug abuse. REVIEW OF SYSTEMS: HEENT is unremarkable. CARDIAC: As described above. RESPIRATORY: Negative. GI: Negative. GENITOURINARY: Negative. ALLERGY/IMMUNOLOGY: Negative. SKIN: Significant for bilateral superficial ulceration and cellulitis. PSYCHOSOCIAL: Negative. ENDOCRINE: Negative. CONSTITUTIONAL: Negative. PHYSICAL EXAMINATION: On exam, comfortable at rest. Heart rate is 63 beats per minute. Afebrile. Blood pressure is 156/75. Respiratory rate is 17. O2 saturation is 100% on room air. There is no jugular venous distention. Carotid upstroke is normal. There is no bruit. Chest exam reveals good air entry bilaterally. Heart exam reveals first and second heart sounds and early diastolic murmur in the aortic area. Abdomen is soft. Examination of the extremities reveals mild edema over the left leg with healing ulcers and pigmentations both sides. Pulses are palpable. EKG shows normal sinus rhythm without significant ST-T wave changes. LABS: Labs show that the hemoglobin is 10.8, platelet count is 248, potassium is 4.6. BUN is 47, creatinine is 2. Troponins are negative. Lipid profile shows a total cholesterol of 203, LDL of 109. ASSESSMENT: 1. Severe uncontrolled hypertension. 2. Chronic renal failure secondary to acute interstitial nephritis. 3. Chronic diastolic heart failure. PLAN: I am going to add amlodipine 10 mg daily. Continue the metoprolol. Feed him and if he is doing well, he can be discharged home. He already has an appointment in the office, which he is going to keep. If he is not discharged home today, we will see him tomorrow. MMODL / IJN: [id number] /
== END 2021-01-14 15:24 | disposition home or self-care (01) | DRG 291 ==
LOC: EC 09:02 → 3SCARD 11:35 → UNDODISIN 01-06 19:16 → 4SSUR 01-06 21:06
PROVIDERS: ADMIT Internal Medicine; ATTEND Internal Medicine
PROC: 05HB33Z Insertion of Infusion Device into Right Basilic Vein, Percutaneous Approach (ICD-10-PCS; principal; 2021-01-12 16:50)
DX: I13.0 Hypertensive heart and chronic kidney disease with heart failure and stage 1 through stage 4 chronic kidney disease, or unspecified chronic kidney disease (principal); I50.33 Acute on chronic diastolic (congestive) heart failure; N17.0 Acute kidney failure with tubular necrosis; J96.01 Acute respiratory failure with hypoxia; E87.1 Hypo-osmolality and hyponatremia; L02.415 Cutaneous abscess of right lower limb; L02.416 Cutaneous abscess of left lower limb; L03.115 Cellulitis of right lower limb; L03.116 Cellulitis of left lower limb; N10 Acute pyelonephritis; Z20.822 Contact with and (suspected) exposure to COVID-19; B95.62 Methicillin resistant Staphylococcus aureus infection as the cause of diseases classified elsewhere; D63.1 Anemia in chronic kidney disease; E11.22 Type 2 diabetes mellitus with diabetic chronic kidney disease; E11.42 Type 2 diabetes mellitus with diabetic polyneuropathy; E11.649 Type 2 diabetes mellitus with hypoglycemia without coma; E11.65 Type 2 diabetes mellitus with hyperglycemia; E66.9 Obesity, unspecified; Z68.29 Body mass index [BMI] 29.0-29.9, adult; E78.5 Hyperlipidemia, unspecified; E86.1 Hypovolemia; E87.5 Hyperkalemia; F41.9 Anxiety disorder, unspecified; G90.1 Familial dysautonomia [Riley-Day]; I95.1 Orthostatic hypotension; I27.20 Pulmonary hypertension, unspecified; I35.1 Nonrheumatic aortic (valve) insufficiency; J44.9 Chronic obstructive pulmonary disease, unspecified; N18.32 Chronic kidney disease, stage 3b; T38.0X5A Adverse effect of glucocorticoids and synthetic analogues, initial encounter; M10.9 Gout, unspecified; T50.2X5A Adverse effect of carbonic-anhydrase inhibitors, benzothiadiazides and other diuretics, initial encounter; Z79.4 Long term (current) use of insulin; Z79.899 Other long term (current) drug therapy; Z83.3 Family history of diabetes mellitus; Z86.14 Personal history of Methicillin resistant Staphylococcus aureus infection; Z87.891 Personal history of nicotine dependence; Z98.42 Cataract extraction status, left eye; Z98.41 Cataract extraction status, right eye; Z90.49 Acquired absence of other specified parts of digestive tract
CPT/HCPCS: 36410; 36415; 71045; 71046; 76937; 80048; 80053; 82947; 83036; 83735; 83880; 84484; 85025; 85027; 85610; 85730; 87636; 93005; 93306; 94640; 94760; 96374; 96375; 99285

== ENCOUNTER 2021-01-17 11:13 | Observation (INO) | payer OTHER ==
[2021-01-17] MEDS ORDERED: ASPIRIN 81 MG PO STA (11:39)
[2021-01-17 11:58] LABS: Basophils # (A) 0.1 k/uL (0-0.2); Basophils % (A) 1 %; Eosinophils # (A) 0.2 k/uL (0-0.7); Eosinophils % (A) 4 %; HCT 33.1 % (39.0-53.0); HGB 10.8 gm/dL (13.0-17.5); Lymphocytes # (A) 0.9 k/uL (1.0-4.8); Lymphocytes % (A) 16 %; MCH 29.5 pg (25.0-35.0); MCHC 32.7 g/dL (31.0-37.0); MCV 90.2 fL (80.0-100.0); Mean Platelet Volume 7.2; Monocytes # (A) 0.4 k/uL (0-1.0); Monocytes % (A) 7 %; Neutrophils # (A) 3.7 k/uL (1.3-7.7); Neutrophils % (A) 70 %; Platelet Count 248 k/uL (150-450); RBC 3.67 m/uL (4.30-5.90); RDW 13.4 % (11.5-15.5); WBC 5.3 k/uL (3.8-10.6)
[2021-01-17 12:10] LABS: Albumin 3.5 g/dL (3.5-5.0); Calcium 8.6 mg/dL (8.4-10.2); Magnesium 1.9 mg/dL (1.6-2.3); Potassium 4.6 mmol/L (3.5-5.1); Total Bilirubin 0.6 mg/dL (0.2-1.3); Total Protein 7.4 g/dL (6.3-8.2)
--- NOTE | 2021-01-17 12:13 | XR ---
EXAMINATION TYPE: XR chest 2V DATE OF EXAM: 01/17/2021 COMPARISON: 01/06/2021 TECHNIQUE: PA and lateral views submitted. HISTORY: Chest pain FINDINGS: Persistent diffuse interstitial pattern with improvement in basilar infiltrate and pleural effusion o n the right. No pneumothorax. Heart size stable. Arthropathy of the shoulders. IMPRESSION: 1. Persistent interstitial venous congestion or pneumonitis with interval marked improvement in right basilar infiltrate and small effusion.
[2021-01-17 12:15] LABS: INR 1.1 (<1.2); Partial Thromboplastin Time 24.8 sec (22.0-30.0); Prothrombin Time 11.2 sec (9.0-12.0)
--- NOTE | 2021-01-17 12:18 | ED ---
General Adult HPI - General Chief complaint: Chest Pain Stated complaint: Hypertensive Time Seen by Provider: 01/17/21 11:33 Source: patient Mode of arrival: ambulatory Limitations: no limitations - History of Present Illness Initial comments: 50-year-old male with a past medical history of heart failure, diabetes mellitus, hyperlipidemia, hypertension presents to the emergency room for a chief complaint of chest pressure. Patient states he has slight pressure in his chest. States this started yesterday. He states that it worsens any presses on the area. Today he noticed it was in his left jaw as well. Patient reports he was recently taken off his blood pressure medications but was kept on metoprolol.he does admit to slight shortness of breath associated with this pain. Patient has no other complaints at this time including abdominal pain, nausea or vomiting, headache, or visual changes. - Related Data Home Medications Medication Instructions Recorded Confirmed DULoxetine HCL [Cymbalta] 60 mg PO DAILY 04/01/20 01/17/21 Acetaminophen Tab [Tylenol] 650 mg PO Q4H PRN 07/25/20 01/17/21 Albuterol Sulfate [Proair Hfa] 2 puff INHALATION RT-Q6H PRN 07/25/20 01/17/21 Semaglutide [Ozempic] 1 mg SQ TH 10/03/20 01/17/21 Fluticasone/Salmeterol [Advair 1 puff INHALATION RT-BID 12/16/20 01/17/21 250-50 Diskus] Nitroglycerin Sl Tabs [Nitrostat] 0.4 mg SL Q5M PRN 12/16/20 01/17/21 Ondansetron [Zofran] 4 mg PO TID PRN 12/16/20 01/17/21 Darbepoetin Andrez [Aranesp] 40 mcg SQ MO 01/04/21 01/17/21 INSULIN ASPART (NovoLOG) [NovoLOG See Protocol SQ ACHS 01/04/21 01/17/21 (formulary)] Previous Rx's Medication Instructions Recorded Omeprazole [PriLOSEC] 40 mg PO LUPILLO-BRKFSKacey #14 capsule. 11/04/19 Atorvastatin [Lipitor] 40 mg PO DAILY #30 tab 10/13/20 traZODone HCL [Desyrel] 100 mg PO HS #30 tab 10/13/20 INSULIN ASPART (NovoLOG) [NovoLOG 10 unit SQ AC-TID 30 Days #5 vial 12/29/20 (formulary)] guaiFENesin-Coden 100-10MG/5ML 10 ml PO TID #100 ml 12/29/20 [Robitussin AC] Furosemide [Lasix] 40 mg PO BID@0900,1600 30 Days #60 01/14/21 tab Gabapentin [Neurontin] 100 mg PO TID #12 cap 01/14/21 Insulin Glargine,Hum.rec.anlog 30 unit SQ HS #0 01/14/21 [Basaglar Kwikpen U-100] Metoprolol Tartrate [Lopressor] 50 mg PO BID 30 Days #60 tab 01/14/21 Allergies Allergy/AdvReac Type Severity Reaction Status Date / Time No Known Allergies Allergy Verified 01/17/21 11:23 Review of Systems ROS Statement: Those systems with pertinent positive or pertinent negative responses have been documented in the HPI. ROS Other: All systems not noted in ROS Statement are negative. Past Medical History Past Medical History: Heart Failure, Diabetes Mellitus, Hyperlipidemia, Hypertension Additional Past Medical History / Comment(s): IDDM type II, neuropathy bilateral feet, gout, bilateral eye catarct removal, MRSA . History of Any Multi-Drug Resistant Organisms: MRSA Date of last positivie culture/infection: 12/17/20 MDRO Source:: Right Leg Past Surgical History: Cholecystectomy Additional Past Surgical History / Comment(s): I&D scrotal abscess, I&D back abscess Past Anesthesia/Blood Transfusion Reactions: No Reported Reaction Past Psychological History: Anxiety Smoking Status: Former smoker - Past Family History Mother Family Medical History: Diabetes Mellitus Father History Unknown: Yes General Exam Limitations: no limitations General appearance: alert, in no apparent distress Head exam: Present: atraumatic, normocephalic, normal inspection Eye exam: Present: normal appearance, PERRL, EOMI. Absent: scleral icterus, conjunctival injection, periorbital swelling ENT exam: Present: normal exam, mucous membranes moist Neck exam: Present: normal inspection, full ROM. Absent: tenderness, meningismus, lymphadenopathy Respiratory exam: Present: normal lung sounds bilaterally. Absent: respiratory distress, wheezes, rales, rhonchi, stridor Cardiovascular Exam: Present: regular rate, normal rhythm, normal heart sounds. Absent: systolic murmur, diastolic murmur, rubs, gallop, clicks GI/Abdominal exam: Present: soft, normal bowel sounds. Absent: distended, tenderness, guarding, rebound, rigid Neurological exam: Present: alert Course Vital Signs 01/17/21 01/17/21 11:20 13:41 Temperature 97.5 F L Pulse Rate 84 84 Respiratory 18 18 Rate Blood Pressure 185/76 177/94 O2 Sat by Pulse 97 98 Oximetry EKG Findings - EKG Comments: EKG Findings:: Normal sinus rhythm, ventricular rate 84, KS interval 170, QTc 453 Medical Decision Making - Medical Decision Making Vitals are stable. Patient presents for chest pain. A CBC is unremarkable. Chronic anemia noted. CMP does show evidence of chronic kidney disease as well as hyperglycemia and at 621. Patient was given regular insulin which did improve his to 397. He is not given fluids and given he does have a BNP elevated at 5300 with a history of heart failure and congestion on chest x-ray. We will at this time admit patient for it cardiac rule out. Home meds are ordered including by mouth Lasix. Case discussed with Dr. Pablo who does request acetone be added. The patient will be placed on a sliding scale. Cardiology will be consulted. - Lab Data Result diagrams: 01/17/21 11:41 01/17/21 11:41 Lab Results 01/17/21 01/17/21 01/17/21 Range/Units 11:41 11:41 11:41 WBC 5.3 (3.8-10.6) k/uL RBC 3.67 L (4.30-5.90) m/uL Hgb 10.8 L (13.0-17.5) gm/dL Hct 33.1 L (39.0-53.0) % MCV 90.2 (80.0-100.0) fL MCH 29.5 (25.0-35.0) pg MCHC 32.7 (31.0-37.0) g/dL RDW 13.4 (11.5-15.5) % Plt Count 248 (150-450) k/uL MPV 7.2 Neutrophils % 70 % Lymphocytes % 16 % Monocytes % 7 % Eosinophils % 4 % Basophils % 1 % Neutrophils # 3.7 (1.3-7.7) k/uL Lymphocytes # 0.9 L (1.0-4.8) k/uL Monocytes # 0.4 (0-1.0) k/uL Eosinophils # 0.2 (0-0.7) k/uL Basophils # 0.1 (0-0.2) k/uL PT 11.2 (9.0-12.0) sec INR 1.1 (<1.2) APTT 24.8 (22.0-30.0) sec Sodium 133 L (137-145) mmol/L Potassium 4.6 (3.5-5.1) mmol/L Chloride 97 L (98-107) mmol/L Carbon Dioxide 30 (22-30) mmol/L Anion Gap 6 mmol/L BUN 47 H (9-20) mg/dL Creatinine 2.07 H (0.66-1.25) mg/dL Est GFR (CKD-EPI)AfAm 42 (>60 ml/min/1.73 sqM) Est GFR (CKD-EPI)NonAf 37 (>60 ml/min/1.73 sqM) Glucose 621 H* (74-99) mg/dL POC Glucose (mg/dL) (75-99) mg/dL POC Glu Mechanism Assembler ID Calcium 8.6 (8.4-10.2) mg/dL Magnesium 1.9 (1.6-2.3) mg/dL Total Bilirubin 0.6 (0.2-1.3) mg/dL AST 33 (17-59) U/L ALT 41 (4-49) U/L Alkaline Phosphatase 409 H (38-126) U/L Troponin I (0.000-0.034) ng/mL NT-Pro-B Natriuret Pep pg/mL Total Protein 7.4 (6.3-8.2) g/dL Albumin 3.5 (3.5-5.0) g/dL Lipase 180 (23-300) U/L 01/17/21 01/17/21 01/17/21 Range/Units 11:41 11:41 13:39 WBC (3.8-10.6) k/uL RBC (4.30-5.90) m/uL Hgb (13.0-17.5) gm/dL Hct (39.0-53.0) % MCV (80.0-100.0) fL MCH (25.0-35.0) pg MCHC (31.0-37.0) g/dL RDW (11.5-15.5) % Plt Count (150-450) k/uL MPV Neutrophils % % Lymphocytes % % Monocytes % % Eosinophils % % Basophils % % Neutrophils # (1.3-7.7) k/uL Lymphocytes # (1.0-4.8) k/uL Monocytes # (0-1.0) k/uL Eosinophils # (0-0.7) k/uL Basophils # (0-0.2) k/uL PT (9.0-12.0) sec INR (<1.2) APTT (22.0-30.0) sec Sodium (137-145) mmol/L Potassium (3.5-5.1) mmol/L Chloride (98-107) mmol/L Carbon Dioxide (22-30) mmol/L Anion Gap mmol/L BUN (9-20) mg/dL Creatinine (0.66-1.25) mg/dL Est GFR (CKD-EPI)AfAm (>60 ml/min/1.73 sqM) Est GFR (CKD-EPI)NonAf (>60 ml/min/1.73 sqM) Glucose (74-99) mg/dL POC Glucose (mg/dL) 397 H (75-99) mg/dL POC Glu Mechanism Assembler ID Douglas Santana Calcium (8.4-10.2) mg/dL Magnesium (1.6-2.3) mg/dL Total Bilirubin (0.2-1.3) mg/dL AST (17-59) U/L ALT (4-49) U/L Alkaline Phosphatase (38-126) U/L Troponin I <0.012 (0.000-0.034) ng/mL NT-Pro-B Natriuret Pep 5310 pg/mL Total Protein (6.3-8.2) g/dL Albumin (3.5-5.0) g/dL Lipase (23-300) U/L Disposition Clinical Impression: Chest pain, Hypertension, CKD (chronic kidney disease), Hyperglycemia Disposition: ADMITTED IP TO THIS HOSP Referrals: Meet Fontanez DO [Primary Care Provider] - 1-2 days Time of Disposition: 13:52
[2021-01-17] MEDS ORDERED: INSULIN REGULAR 100 UNIT/ML VIAL IV STA (12:25)
[2021-01-17 13:41] LABS: Glucose,Whole Blood 397 mg/dL (75-99)
[2021-01-17] MEDS ORDERED: NITROGLYCERIN SL TABS 0.4 MG TAB SUBLINGUAL PRN ×2 (13:43→13:49)
[2021-01-17] MEDS ORDERED: ACETAMINOPHEN TAB 325 MG TAB PO PRN (13:49)
[2021-01-17] MEDS ORDERED: ONDANSETRON 4 MG TAB PO PRN (13:49)
[2021-01-17] MEDS ORDERED: ALBUTEROL NEBULIZED 2.5 MG/3 ML INHALATION PRN (13:49)
[2021-01-17 15:49] LABS: Glucose,Whole Blood 341 mg/dL (75-99)
[2021-01-17] MEDS: GABAPENTIN 100 MG CAP PO SCH ×2 (15:53→21:15)
[2021-01-17] MEDS: FUROSEMIDE 40 MG TAB PO SCH (15:53)
[2021-01-17] MEDS: INSULIN ASPART (NovoLOG) 100 UNIT/ML VIAL SQ SCH ×2 (16:56→21:17)
[2021-01-17 18:37] LABS: Glucose,Whole Blood 322 mg/dL (75-99)
--- NOTE | 2021-01-17 20:59 | P.HPIM ---
History of Present Illness H&P Date: 01/17/21 Chief Complaint: Chest pain History of presenting complaint This is a very pleasant 50-year-old patient was chronic stable medical conditions include diabetes mellitus type 2, peripheral neuropathy, hyperlipidemia patient has chronic lower extremity leg wounds. Recently had an abscess on the left leg was discharged from the hospital on January 14. Patient was to continue on IV daptomycin for 5 more days. Has a PICC line. Patient now presents with central chest pressure. Present on and off most of yesterday. It didn't radiate to the jaw. Some shortness of breath. Some dizziness. No perspiration. Review of systems: GEN.: Tired EYES: None HEENT: None NECK: None RESPIRATORY: As above CARDIOVASCULAR: As above, minimal edema GASTROINTESTINAL: As above GENITOURINARY: None MUSCULOSKELETAL: As above LYMPHATICS: None HEMATOLOGICAL: None DERMATOLOGICAL: Leg wounds PSYCHIATRY: None NEUROLOGICAL: No focal Past medical history to include: Diabetes, hyperlipidemia, peripheral neuropathy, MRSA infection including abscess and cellulitis,, anxiety, Social history: Patient lives with his 2 children. Previously did [employer]. Smoking 2 packs a day for 32 , stopped 6 weeks ago. Alcohol occasionally. Physical examination: VITAL SIGNS: 97.5, 84, 18, 177/94, 97% room air GENERAL: BMI 28.2, sitting at the edge of the bed, not in distress EYES: Pupils equal. Conjunctiva normal. HEENT: External appearance of nose and ears normal, oral cavity grossly normal. NECK: JVD not raised; masses not palpable. HEART: First and second heart sounds are normal; mild edema LUNGS: Respiratory rate normal, decreased breath sounds. ABDOMEN: Soft, nontender, liver spleen not palpable, no masses palpable. PSYCH: Alert and oriented x3; mood and affect normal. DERMATOLOGICAL: Wounds of the lower extremity. See nursing notes. NEUROLOGICAL: Cranial nerves grossly intact; no facial asymmetry, power and sensation grossly intact. LYMPHATICS: No lymph nodes palpable in the axilla and neck INVESTIGATIONS, reviewed in the clinical context: WBC 5.3 hemoglobin 10.8 platelets 248 potassium 4.6 bun 47 creatinine 2.07 Troponin I 2 negative Blood glucose 621. Serum acetone negative. Coronavirus [PCR]-not detected EKG tracing personally reviewed by me-normal sinus rhythm Chest x-ray film personally reviewed by me-improvement compared to previous film. Previous testing: January 14: Bun 63 creatinine 2.4 January 4: 2-D echocardiogram/EF 55-60%, [id number] aortic regurgitation Assessment and plan: -Possible unstable angina in a patient with risk factors include diabetes, smoker recently, hyperlipidemia EKG is unremarkable. Troponins are negative. -Acute on chronic lower extremity wounds of different , positive for MRSA. Patient has an IV PICC line and 5 more days of daptomycin.. -Chronic congestive heart failure from diastolic dysfunction EF 50-55% Follow hemodynamic state/fluids state -Secondary pulmonary hypertension due to CHF Follow clinically -Diabetes mellitus type 2 chronically on insulin uncontrolled with nonketotic hyperglycemia IV fluids. Follow Accu-Cheks. Resume long-acting insulin. 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 Questions answered. Cardiology consulted. Home medications resumed. IV fluids. Past Medical History Past Medical History: Heart Failure, Diabetes Mellitus, Hyperlipidemia, Hypertension Additional Past Medical History / Comment(s): IDDM type II, neuropathy bilateral feet, gout, bilateral eye catarct removal, MRSA . History of Any Multi-Drug Resistant Organisms: MRSA Date of last positivie culture/infection: 12/17/20 MDRO Source:: Right Leg Past Surgical History: Cholecystectomy Additional Past Surgical History / Comment(s): I&D scrotal abscess, I&D back abscess Past Anesthesia/Blood Transfusion Reactions: No Reported Reaction Past Psychological History: Anxiety Smoking Status: Former smoker - Past Family History Mother Family Medical History: Diabetes Mellitus Father History Unknown: Yes Medications and Allergies Home Medications Medication Instructions Recorded Confirmed Type Omeprazole [PriLOSEC] 40 mg PO AC-BRKFST #14 capsule. 11/04/19 01/17/21 Rx DULoxetine HCL [Cymbalta] 60 mg PO DAILY 04/01/20 01/17/21 History Acetaminophen Tab [Tylenol] 650 mg PO Q4H PRN 07/25/20 01/17/21 History Albuterol Sulfate [Proair Hfa] 2 puff INHALATION RT-Q6H PRN 07/25/20 01/17/21 History Semaglutide [Ozempic] 1 mg SQ TH 10/03/20 01/17/21 History Atorvastatin [Lipitor] 40 mg PO DAILY #30 tab 10/13/20 01/17/21 Rx traZODone HCL [Desyrel] 100 mg PO HS #30 tab 10/13/20 01/17/21 Rx Fluticasone/Salmeterol [Advair 1 puff INHALATION RT-BID 12/16/20 01/17/21 History 250-50 Diskus] Nitroglycerin Sl Tabs [Nitrostat] 0.4 mg SL Q5M PRN 12/16/20 01/17/21 History Ondansetron [Zofran] 4 mg PO TID PRN 12/16/20 01/17/21 History INSULIN ASPART (NovoLOG) [NovoLOG 10 unit SQ AC-TID 30 Days #5 vial 12/29/20 Rx (formulary)] guaiFENesin-Coden 100-10MG/5ML 10 ml PO TID #100 ml 12/29/20 01/17/21 Rx [Robitussin AC] Darbepoetin Andrez [Aranesp] 40 mcg SQ MO 01/04/21 01/17/21 History INSULIN ASPART (NovoLOG) [NovoLOG See Protocol SQ ACHS 01/04/21 01/17/21 History (formulary)] Furosemide [Lasix] 40 mg PO BID@0900,1600 30 Days #60 01/14/21 01/17/21 Rx tab Gabapentin [Neurontin] 100 mg PO TID #12 cap 01/14/21 01/17/21 Rx Insulin Glargine,Hum.rec.anlog 30 unit SQ HS #0 01/14/21 01/17/21 Rx [Basaglar Kwikpen U-100] Metoprolol Tartrate [Lopressor] 50 mg PO BID 30 Days #60 tab 01/14/21 01/17/21 Rx Allergies Allergy/AdvReac Type Severity Reaction Status Date / Time No Known Allergies Allergy Verified 01/17/21 11:23 Physical Exam Vitals: Vital Signs Temp Pulse Resp BP Pulse Ox 01/17/21 18:08 79 18 177/90 98 01/17/21 15:54 84 18 176/87 98 01/17/21 13:41 84 18 177/94 98 01/17/21 11:20 97.5 F L 84 18 185/76 97 Intake and Output 01/17/21 01/17/21 01/17/21 06:59 14:59 22:59 Other: Weight 81.647 kg Results CBC & Chem 7: 01/17/21 11:41 01/17/21 11:41 Labs: Abnormal Lab Results - Last 24 Hours (Table) 01/17/21 01/17/21 01/17/21 Range/Units 11:41 11:41 13:39 RBC 3.67 L (4.30-5.90) m/uL Hgb 10.8 L (13.0-17.5) gm/dL Hct 33.1 L (39.0-53.0) % Lymphocytes # 0.9 L (1.0-4.8) k/uL Sodium 133 L (137-145) mmol/L Chloride 97 L (98-107) mmol/L BUN 47 H (9-20) mg/dL Creatinine 2.07 H (0.66-1.25) mg/dL Glucose 621 H* (74-99) mg/dL POC Glucose (mg/dL) 397 H (75-99) mg/dL Alkaline Phosphatase 409 H (38-126) U/L 01/17/21 01/17/21 Range/Units 15:46 18:36 RBC (4.30-5.90) m/uL Hgb (13.0-17.5) gm/dL Hct (39.0-53.0) % Lymphocytes # (1.0-4.8) k/uL Sodium (137-145) mmol/L Chloride (98-107) mmol/L BUN (9-20) mg/dL Creatinine (0.66-1.25) mg/dL Glucose (74-99) mg/dL POC Glucose (mg/dL) 341 H 322 H (75-99) mg/dL Alkaline Phosphatase (38-126) U/L
[2021-01-17] MEDS ORDERED: INSULIN DETEMIR (LEVEMIR) 100 UNIT/ML SYR SQ SCH (21:00)
[2021-01-17] MEDS ORDERED: traZODone HCL 100 MG TAB PO SCH (21:00)
[2021-01-17 21:08] LABS: Glucose,Whole Blood 223 mg/dL (75-99)
[2021-01-17] MEDS: METOPROLOL TARTRATE 50 MG TAB PO SCH (21:15)
[2021-01-17] MEDS: SYMBICORT 80-4.5 MCG INHALER INHALATION SCH (21:36)
[2021-01-18 05:07] VITALS: RESP 17; TEMP 97.5
[2021-01-18 05:12] LABS: Cholesterol 203 mg/dL (<200); HDL Cholesterol 55 mg/dL (40-60); LDL Cholesterol,Calculated 109 mg/dL (0-99); Triglycerides 196 mg/dL (<150)
[2021-01-18] MEDS: INSULIN ASPART (NovoLOG) 100 UNIT/ML VIAL SQ SCH (06:11)
[2021-01-18 06:27] LABS: Glucose,Whole Blood 65 mg/dL (75-99)
[2021-01-18 06:40] LABS: Glucose,Whole Blood 108 mg/dL (75-99)
[2021-01-18] MEDS ORDERED: PANTOPRAZOLE 40 MG TABLET PO SCH (07:30)
[2021-01-18] MEDS ORDERED: INSULIN ASPART (NovoLOG) 100 UNIT/ML VIAL SQ SCH (07:30)
[2021-01-18] MEDS: SYMBICORT 80-4.5 MCG INHALER INHALATION SCH (07:34)
[2021-01-18] MEDS: METOPROLOL TARTRATE 50 MG TAB PO SCH (08:19)
[2021-01-18] MEDS: GABAPENTIN 100 MG CAP PO SCH (08:19)
[2021-01-18] MEDS: FUROSEMIDE 40 MG TAB PO SCH (08:19)
[2021-01-18 08:30] VITALS: BP 156/75; PULSE 63
[2021-01-18] MEDS ORDERED: ASPIRIN 325 MG TAB PO SCH (09:00)
[2021-01-18] MEDS ORDERED: DARBEPOETIN ALFA 40 MCG/0.4 ML SYRINGE SQ SCH (09:00)
[2021-01-18] MEDS ORDERED: amLODIPine 10 MG TAB PO SCH (09:00)
[2021-01-18] MEDS ORDERED: DULoxetine HCL 60 MG CAPSULE.DR PO SCH (09:00)
[2021-01-18] MEDS ORDERED: ATORVASTATIN 40 MG TAB PO SCH (09:00)
--- NOTE | 2021-01-18 15:00 | P.DS ---
Providers Date of admission: 01/17/21 13:46 Expected date of discharge: 01/18/21 Attending physician: Armando Pablo Consults: 01/17/21 13:43 Consult Physician Routine Consulting Provider: [facility] Consult Reason/Comments: Chest pain Do you want consulting provider notified?: Yes Primary care physician: Meet T [facility] [place] Hospital Course: Chief Complaint: Chest pain History of presenting complaint This is a very pleasant 50-year-old patient was chronic stable medical conditions include diabetes mellitus type 2, peripheral neuropathy, hy perlipidemia patient has chronic lower extremity leg wounds. Recently had an abscess on the left leg was discharged from the hospital on January 14. Patient was to continue on IV daptomycin for 5 more days. Has a PICC line. Patient now presents with central chest pressure. Present on and off most of yesterday. It didn't radiate to the jaw. Some shortness of breath. Some dizziness. No perspiration. Admitted unstable angina. And accelerated hypertension. Patient is placed on amlodipine. Also had nonketotic hyperosmolar hyperglycemia. Corrected with IV fluids Today: Blood pressure doing better. No further chest pain. Seen by cartilage he Dr. Jnoa Rousseau. Okay for discharge. Discussed with the patient. Patient complete his does of IV antibiotics tomorrow. And he'll follow with Dr. Milligan from [place]. Also follow with Dr. Jona Rousseau in the office. Discussion and discharge planning more than 35 minutes Consultation: Dr. Jona Dickson from cardiology Past medical history to include: Diabetes, hyperlipidemia, peripheral neuropathy, MRSA infection including abscess and cellulitis,, anxiety, Social history: Patient lives with his 2 children. Previously did [employer] [place] Smoking 2 packs a day for 32 , stopped 6 weeks ago. Alcohol occasionally. Physical examination: VITAL SIGNS: 97.5, 84, 18, 177/94, 97% room air GENERAL: BMI 28.2, sitting at the edge of the bed, not in distress. Right arm PICC line EYES: Pupils equal. Conjunctiva normal. HEENT: External appearance of nose and ears normal, oral cavity grossly normal. NECK: JVD not raised; masses not palpable. HEART: First and second heart sounds are normal; mild edema LUNGS: Respiratory rate normal, decreased breath sounds. ABDOMEN: Soft, nontender, liver spleen not palpable, no masses palpable. PSYCH: Alert and oriented x3; mood and affect normal. DERMATOLOGICAL: Wounds of the lower extremity. See nursing notes. INVESTIGATIONS, reviewed in the clinical context: WBC 5.3 hemoglobin 10.8 platelets 248 potassium 4.6 bun 47 creatinine 2.07 Troponin I 2 negative Blood glucose 621. Serum acetone negative. Coronavirus [PCR]-not detected EKG tracing personally reviewed by me-normal sinus rhythm Chest x-ray film personally reviewed by me-improvement compared to previous film. Previous testing: January 14: Bun 63 creatinine 2.4 January 05: 2-D echocardiogram/EF 55-60%, [id number] aortic regurgitation Assessment and plan: -Possible unstable angina in a patient with risk factors include diabetes, smoker recently, hyperlipidemia EKG is unremarkable. Troponins are negative. Started amlodipine. Outpatient follow-up with cardiology -Acute on chronic lower extremity wounds of different , positive for MRSA. Patient has an IV PICC line and complete course of daptomycin at home. And follow-up with Dr. Milligan. -Chronic congestive heart failure from diastolic dysfunction EF 50-55% Follow hemodynamic state/fluids state -Secondary pulmonary hypertension due to CHF Follow clinically -Diabetes mellitus type 2 chronically on insulin uncontrolled with hyperglycemia IV fluids. Follow Accu-Cheks. Resume long-acting insulin. 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 DULoxetine HCL [Cymbalta] 60 mg PO DAILY Acetaminophen Tab [Tylenol] 650 mg PO Q4H PRN PRN Reason: Mild Pain Or Fever > 100.5 Albuterol Sulfate [Proair Hfa] 2 puff INHALATION RT-Q6H PRN PRN Reason: Shortness Of Breath Semaglutide [Ozempic] 1 mg SQ TH traZODone HCL [Desyrel] 100 mg PO HS #30 tab Atorvastatin [Lipitor] 40 mg PO DAILY #30 tab Fluticasone/Salmeterol [Advair 250-50 Diskus] 1 puff INHALATION RT-BID Nitroglycerin Sl Tabs [Nitrostat] 0.4 mg SL Q5M PRN PRN Reason: Chest Pain INSULIN ASPART (NovoLOG) [NovoLOG (formulary)] 10 unit SQ AC-TID 30 Days #5 vial Gabapentin [Neurontin] 100 mg PO TID #12 cap Insulin Glargine,Hum.rec.anlog [Basaglar Kwikpen U-100] 30 unit SQ HS #0 Ondansetron [Zofran] 4 mg PO TID PRN PRN Reason: Nausea guaiFENesin-Coden 100-10MG/5ML [Robitussin AC] 10 ml PO TID #100 ml Darbepoetin Andrez [Aranesp] 40 mcg SQ MO INSULIN ASPART (NovoLOG) [NovoLOG (formulary)] See Protocol SQ ACHS Furosemide [Lasix] 40 mg PO BID@0900,1600 30 Days #60 tab Metoprolol Tartrate [Lopressor] 50 mg PO BID 30 Days #60 tab Discharge Medication List Omeprazole [PriLOSEC] 40 mg PO AC-BRKFST #14 capsule. 11/04/19 [Rx] DULoxetine HCL [Cymbalta] 60 mg PO DAILY 04/01/20 [History] Acetaminophen Tab [Tylenol] 650 mg PO Q4H PRN 07/25/20 [History] Albuterol Sulfate [Proair Hfa] 2 puff INHALATION RT-Q6H PRN 07/25/20 [History] Semaglutide [Ozempic] 1 mg SQ TH 10/03/20 [History] Atorvastatin [Lipitor] 40 mg PO DAILY #30 tab 10/13/20 [Rx] traZODone HCL [Desyrel] 100 mg PO HS #30 tab 10/13/20 [Rx] Fluticasone/Salmeterol [Advair 250-50 Diskus] 1 puff INHALATION RT-BID 12/16/20 [History] Nitroglycerin Sl Tabs [Nitrostat] 0.4 mg SL Q5M PRN 12/16/20 [History] Ondansetron [Zofran] 4 mg PO TID PRN 12/16/20 [History] INSULIN ASPART (NovoLOG) [NovoLOG (formulary)] 10 unit SQ AC-TID 30 Days #5 vial 12/29/20 [Rx] guaiFENesin-Coden 100-10MG/5ML [Robitussin AC] 10 ml PO TID #100 ml 12/29/20 [Rx] Darbepoetin Andrez [Aranesp] 40 mcg SQ MO 01/04/21 [History] INSULIN ASPART (NovoLOG) [NovoLOG (formulary)] See Protocol SQ ACHS 01/04/21 [History] Furosemide [Lasix] 40 mg PO BID@0900,1600 30 Days #60 tab 01/14/21 [Rx] Gabapentin [Neurontin] 100 mg PO TID #12 cap 01/14/21 [Rx] Insulin Glargine,Hum.rec.anlog [Basaglar Kwikpen U-100] 30 unit SQ HS #0 01/14/21 [Rx] Metoprolol Tartrate [Lopressor] 50 mg PO BID 30 Days #60 tab 01/14/21 [Rx] Aspirin 81 mg PO DAILY #30 chewable 01/18/21 [Rx] amLODIPine [Norvasc] 10 mg PO DAILY #30 tab 01/18/21 [Rx] Follow up Appointment(s)/Referral(s): Meet Fontanez DO [Primary Care Provider] - 01/26/21 10:30 am Shaan Milligan MD [STAFF PHYSICIAN] - 01/25/21 2:45 pm Alfredo Dickson MD [STAFF PHYSICIAN] - 01/22/21 2:30 pm Patient Instructions/Handouts: Angina (DC), Chronic Hypertension (DC) Discharge/Stand Alone Forms: Work/Release Restrictions Form Discharge Disposition: HOME SELF-CARE
[2021-01-21] MEDS ORDERED: NON FORMULARY DRUG (Semaglutide [Ozempic] 1 MG/0.75 ML Pen.Injctr) SQ SCH (09:00)
== END 2021-01-18 11:58 | disposition home or self-care (01) ==
LOC: EC 11:13 → 6NMEDSUR 13:46 → 3SCARD 01-18 04:08
PROVIDERS: ADMIT Hospitalist; ATTEND Hospitalist
DX: R07.89 Other chest pain (principal); I13.0 Hypertensive heart and chronic kidney disease with heart failure and stage 1 through stage 4 chronic kidney disease, or unspecified chronic kidney disease; I50.32 Chronic diastolic (congestive) heart failure; N18.30 Chronic kidney disease, stage 3 unspecified; E11.22 Type 2 diabetes mellitus with diabetic chronic kidney disease; E11.65 Type 2 diabetes mellitus with hyperglycemia; E11.42 Type 2 diabetes mellitus with diabetic polyneuropathy; J44.9 Chronic obstructive pulmonary disease, unspecified; E78.5 Hyperlipidemia, unspecified; M10.9 Gout, unspecified; D64.9 Anemia, unspecified; R42 Dizziness and giddiness; I35.1 Nonrheumatic aortic (valve) insufficiency; L02.416 Cutaneous abscess of left lower limb; L03.116 Cellulitis of left lower limb; B95.62 Methicillin resistant Staphylococcus aureus infection as the cause of diseases classified elsewhere; I27.29 Other secondary pulmonary hypertension; F41.9 Anxiety disorder, unspecified; Z20.822 Contact with and (suspected) exposure to COVID-19; Z79.51 Long term (current) use of inhaled steroids; Z79.4 Long term (current) use of insulin; Z79.899 Other long term (current) drug therapy; Z87.891 Personal history of nicotine dependence; Z95.828 Presence of other vascular implants and grafts; Z86.14 Personal history of Methicillin resistant Staphylococcus aureus infection; Z90.49 Acquired absence of other specified parts of digestive tract; Z98.42 Cataract extraction status, left eye; Z98.41 Cataract extraction status, right eye; Z83.3 Family history of diabetes mellitus
CPT/HCPCS: 93005 ×2; 99285; 36415; 94640 ×2; 83880; 80061; 80053; 82009; 83690; 83735; 84484; 85025; 85610; 85730; 87635; 71046; G0378 ×3

== ENCOUNTER 2021-02-08 14:22 | Inpatient (IN) | payer OTHER ==
[2021-02-08] MEDS ORDERED: SODIUM CHLORIDE 0.9% 500 ML 500 ML IV STA (15:06)
[2021-02-08 15:29] LABS: Basophils # (A) 0.2 k/uL (0-0.2); Basophils % (A) 1 %; Eosinophils # (A) 0.3 k/uL (0-0.7); Eosinophils % (A) 3 %; HCT 36.1 % (39.0-53.0); HGB 12.2 gm/dL (13.0-17.5); Lymphocytes # (A) 1.5 k/uL (1.0-4.8); Lymphocytes % (A) 13 %; MCH 27.7 pg (25.0-35.0); MCHC 33.9 g/dL (31.0-37.0); Mean Platelet Volume 8.1; Monocytes # (A) 0.5 k/uL (0-1.0); Monocytes % (A) 4 %; Neutrophils # (A) 8.8 k/uL (1.3-7.7); Neutrophils % (A) 77 %; Platelet Count 285 k/uL (150-450); RBC 4.43 m/uL (4.30-5.90); RDW 13.4 % (11.5-15.5); WBC 11.4 k/uL (3.8-10.6)
[2021-02-08 15:31] LABS: MCV 81.5 fL (80.0-100.0)
[2021-02-08 15:39] LABS: Albumin 3.6 g/dL (3.5-5.0); Calcium 9.1 mg/dL (8.4-10.2); Magnesium 1.8 mg/dL (1.6-2.3); Potassium 5.2 mmol/L (3.5-5.1); Total Bilirubin 0.4 mg/dL (0.2-1.3); Total Protein 7.1 g/dL (6.3-8.2)
[2021-02-08 15:51] LABS: INR 0.9 (<1.2); Partial Thromboplastin Time 22.8 sec (22.0-30.0); Prothrombin Time 10.1 sec (9.0-12.0)
--- NOTE | 2021-02-08 16:00 | XR ---
EXAMINATION TYPE: XR chest 2V DATE OF EXAM: 02/08/2021 COMPARISON: Chest x-ray January 17, 2021 HISTORY: Syncope and weakness. TECHNIQUE: Frontal and lateral views of the chest are obtained. FINDINGS: There is no new suspicious focal air space opacity, pleural effusion, or pneumothorax seen . The cardiac silhouette size is stable and within normal limits. The osseous structures are intac t. EKG leads redemonstrated. IMPRESSION: No acute cardiopulmonary process currently.
--- NOTE | 2021-02-08 16:12 | ED ---
General Adult HPI - General Chief complaint: Dizziness Stated complaint: Dizzy,Weakness Time Seen by Provider: 02/08/21 15:06 Source: patient, RN notes reviewed, old records reviewed Mode of arrival: ambulatory Limitations: no limitations - History of Present Illness Initial comments: 51-year-old male history of hypertension diabetes, CAD presents for evaluation of dizziness, lightheadedness, near-syncope and chest pressure. Symptoms have been ongoing with multiple recent admissions and prolonged hospital stays with the same or similar symptoms. Patient is a poorly controlled diabetic. He states his diet consists abdominal and fast food. He has had several days of mild chest pressuresignificant chest pain. Also he had several episodes where he nearly collapsed this was with standing. There was no worsening of chest pain or palpitations associated with this. No fever. No vomiting. - Related Data Home Medications Medication Instructions Recorded Confirmed DULoxetine HCL [Cymbalta] 60 mg PO DAILY 04/01/20 01/20/21 Acetaminophen Tab [Tylenol] 650 mg PO Q4H PRN 07/25/20 01/20/21 Albuterol Sulfate [Proair Hfa] 2 puff INHALATION RT-Q6H PRN 07/25/20 01/20/21 Semaglutide [Ozempic] 1 mg SQ TH 10/03/20 01/20/21 Fluticasone/Salmeterol [Advair 1 puff INHALATION RT-BID 12/16/20 01/20/21 250-50 Diskus] Nitroglycerin Sl Tabs [Nitrostat] 0.4 mg SL Q5M PRN 12/16/20 01/20/21 Ondansetron [Zofran] 4 mg PO TID PRN 12/16/20 01/20/21 Darbepoetin Andrez [Aranesp] 40 mcg SQ MO 01/04/21 01/20/21 INSULIN ASPART (NovoLOG) [NovoLOG See Protocol SQ ACHS 01/04/21 01/20/21 (formulary)] Previous Rx's Medication Instructions Recorded Omeprazole [PriLOSEC] 40 mg PO AC-BRKFST #14 capsule. 11/04/19 Atorvastatin [Lipitor] 40 mg PO DAILY #30 tab 10/13/20 traZODone HCL [Desyrel] 100 mg PO HS #30 tab 10/13/20 INSULIN ASPART (NovoLOG) [NovoLOG 10 unit SQ AC-TID 30 Days #5 vial 12/29/20 (formulary)] guaiFENesin-Coden 100-10MG/5ML 10 ml PO TID #100 ml 12/29/20 [Robitussin AC] Furosemide [Lasix] 40 mg PO BID@0900,1600 30 Days #60 01/14/21 tab Gabapentin [Neurontin] 100 mg PO TID #12 cap 01/14/21 Insulin Glargine,Hum.rec.anlog 30 unit SQ HS #0 01/14/21 [Basaglar Kwikpen U-100] Metoprolol Tartrate [Lopressor] 50 mg PO BID 30 Days #60 tab 01/14/21 Aspirin 81 mg PO DAILY #30 chewable 01/18/21 amLODIPine [Norvasc] 10 mg PO DAILY #30 tab 01/18/21 Allergies Allergy/AdvReac Type Severity Reaction Status Date / Time No Known Allergies Allergy Verified 02/08/21 14:38 Review of Systems ROS Statement: Those systems with pertinent positive or pertinent negative responses have been documented in the HPI. ROS Other: All systems not noted in ROS Statement are negative. Past Medical History Past Medical History: Heart Failure, Diabetes Mellitus, Hyperlipidemia, Hypertension Additional Past Medical History / Comment(s): IDDM type II, neuropathy bilateral feet, gout, bilateral eye catarct removal, MRSA . History of Any Multi-Drug Resistant Organisms: MRSA Date of last positivie culture/infection: 12/17/20 MDRO Source:: Right Leg Past Surgical History: Cholecystectomy Additional Past Surgical History / Comment(s): I&D scrotal abscess, I&D back abscess Past Anesthesia/Blood Transfusion Reactions: No Reported Reaction Past Psychological History: Anxiety Smoking Status: Former smoker Past Alcohol Use History: None Reported Past Drug Use History: None Reported - Past Family History Mother Family Medical History: Diabetes Mellitus Father History Unknown: Yes General Exam Limitations: no limitations General appearance: alert, in no apparent distress Head exam: Present: atraumatic, normocephalic Eye exam: Present: normal appearance, PERRL ENT exam: Present: normal exam Neck exam: Present: normal inspection. Absent: tenderness, meningismus Respiratory exam: Present: normal lung sounds bilaterally. Absent: respiratory distress, wheezes Cardiovascular Exam: Present: regular rate, normal rhythm GI/Abdominal exam: Present: soft. Absent: distended, tenderness Extremities exam: Present: normal inspection, normal capillary refill. Absent: pedal edema, calf tenderness Neurological exam: Present: alert, oriented X3, CN II-XII intact. Absent: motor sensory deficit Psychiatric exam: Present: normal affect, normal mood Skin exam: Present: warm, dry, intact. Absent: cyanosis, diaphoretic Course Vital Signs 02/08/21 02/08/21 02/08/21 14:35 15:21 15:54 Temperature 98.5 F Pulse Rate 86 83 86 Respiratory 18 16 16 Rate Blood Pressure 77/52 120/71 156/88 O2 Sat by Pulse 100 98 98 Oximetry 02/08/21 16:44 Temperature Pulse Rate 68 Respiratory 16 Rate Blood Pressure 132/54 O2 Sat by Pulse 98 Oximetry EKG Findings - EKG Comments: EKG Findings:: EKG: Normal sinus rhythm, left axis, incomplete right bundle- branch block, rate of 83, KS interval 156, QRS duration 108, QTC [address] segment elevation. Procedures - [place] Protocol (Time Out) Nurse: Nikia Patricia Medical Decision Making - Medical Decision Making 51-year-old male with near syncope, chest pressure and multiple chronic medical conditions. Patient has EKG showing sinus rhythm without ST segment elevation. Chest x-ray negative for acute cardiopulmonary disease. Is a mild cytosis, hemoglobin is 12.2 which is significantly improved from prior. He has a pseudohyponatremia sodium 129 elevated blood sugar of 517 with no signs of ketosis or anion gap metabolic acidosis. His creatinine is 2.3 which is baseline for this patient. We will be placed in observation for serial cardiac enzymes, hydration, blood sugar management. Case discussed with Dr. Pablo who will admit. - Lab Data Result diagrams: 02/08/21 15:12 02/08/21 15:12 Lab Results 02/08/21 02/08/21 02/08/21 Range/Units 15:12 15:12 15:12 WBC 11.4 H (3.8-10.6) k/uL RBC 4.43 (4.30-5.90) m/uL Hgb 12.2 L (13.0-17.5) gm/dL Hct 36.1 L (39.0-53.0) % MCV 81.5 D (80.0-100.0) fL MCH 27.7 (25.0-35.0) pg MCHC 33.9 (31.0-37.0) g/dL RDW 13.4 (11.5-15.5) % Plt Count 285 (150-450) k/uL MPV 8.1 Neutrophils % 77 % Lymphocytes % 13 % Monocytes % 4 % Eosinophils % 3 % Basophils % 1 % Neutrophils # 8.8 H (1.3-7.7) k/uL Lymphocytes # 1.5 (1.0-4.8) k/uL Monocytes # 0.5 (0-1.0) k/uL Eosinophils # 0.3 (0-0.7) k/uL Basophils # 0.2 (0-0.2) k/uL PT 10.1 (9.0-12.0) sec INR 0.9 (<1.2) APTT 22.8 (22.0-30.0) sec Sodium (137-145) mmol/L Potassium (3.5-5.1) mmol/L Chloride (98-107) mmol/L Carbon Dioxide (22-30) mmol/L Anion Gap mmol/L BUN (9-20) mg/dL Creatinine (0.66-1.25) mg/dL Est GFR (CKD-EPI)AfAm (>60 ml/min/1.73 sqM) Est GFR (CKD-EPI)NonAf (>60 ml/min/1.73 sqM) Glucose (74-99) mg/dL Calcium (8.4-10.2) mg/dL Magnesium (1.6-2.3) mg/dL Total Bilirubin (0.2-1.3) mg/dL AST (17-59) U/L ALT (4-49) U/L Alkaline Phosphatase (38-126) U/L Troponin I (0.000-0.034) ng/mL Total Protein (6.3-8.2) g/dL Albumin (3.5-5.0) g/dL Urine Color Light Yellow Urine Appearance Clear (Clear) Urine pH 6.5 (5.0-8.0) Ur Specific [place] 1.025 (1.001-1.035) Urine Protein 3+ H (Negative) Urine Glucose (UA) 4+ H (Negative) Urine Ketones Negative (Negative) Urine Blood Small H (Negative) Urine Nitrite Negative (Negative) Urine Bilirubin Negative (Negative) Urine Urobilinogen <2.0 (<2.0) mg/dL Ur Leukocyte Esterase Negative (Negative) Urine RBC 7 H (0-5) /hpf Urine WBC 1 (0-5) /hpf 02/08/21 02/08/21 Range/Units 15:12 15:12 WBC (3.8-10.6) k/uL RBC (4.30-5.90) m/uL Hgb (13.0-17.5) gm/dL Hct (39.0-53.0) % MCV (80.0-100.0) fL MCH (25.0-35.0) pg MCHC (31.0-37.0) g/dL RDW (11.5-15.5) % Plt Count (150-450) k/uL MPV Neutrophils % % Lymphocytes % % Monocytes % % Eosinophils % % Basophils % % Neutrophils # (1.3-7.7) k/uL Lymphocytes # (1.0-4.8) k/uL Monocytes # (0-1.0) k/uL Eosinophils # (0-0.7) k/uL Basophils # (0-0.2) k/uL PT (9.0-12.0) sec INR (<1.2) APTT (22.0-30.0) sec Sodium 129 L (137-145) mmol/L Potassium 5.2 H (3.5-5.1) mmol/L Chloride 95 L (98-107) mmol/L Carbon Dioxide 25 (22-30) mmol/L Anion Gap 9 mmol/L BUN 43 H (9-20) mg/dL Creatinine 2.35 H (0.66-1.25) mg/dL Est GFR (CKD-EPI)AfAm 36 (>60 ml/min/1.73 sqM) Est GFR (CKD-EPI)NonAf 31 (>60 ml/min/1.73 sqM) Glucose 517 H* (74-99) mg/dL Calcium 9.1 (8.4-10.2) mg/dL Magnesium 1.8 (1.6-2.3) mg/dL Total Bilirubin 0.4 (0.2-1.3) mg/dL AST 22 (17-59) U/L ALT 22 (4-49) U/L Alkaline Phosphatase 239 H (38-126) U/L Troponin I <0.012 (0.000-0.034) ng/mL Total Protein 7.1 (6.3-8.2) g/dL Albumin 3.6 (3.5-5.0) g/dL Urine Color Urine Appearance (Clear) Urine pH (5.0-8.0) Ur Specific [place] (1.001-1.035) Urine Protein (Negative) Urine Glucose (UA) (Negative) Urine Ketones (Negative) Urine Blood (Negative) Urine Nitrite (Negative) Urine Bilirubin (Negative) Urine Urobilinogen (<2.0) mg/dL Ur Leukocyte Esterase (Negative) Urine RBC (0-5) /hpf Urine WBC (0-5) /hpf Disposition Clinical Impression: Chest pain, Pre-syncope, Diabetes mellitus, Hyperglycemia Disposition: ADMITTED IP TO THIS [facility] Condition: Stable Is patient prescribed a controlled substance at d/c from ED?: No Referrals: Meet Fontanez DO [Primary Care Provider] - 1-2 days Decision to Admit Reason: Admit from EC Decision Date: 02/08/21 Decision Time: 17:22
[2021-02-08] MEDS ORDERED: INSULIN REGULAR 100 UNIT/ML VIAL IV ONE (16:29)
[2021-02-08 16:53] LABS: Appearance,Urine Clear (Clear); Bilirubin,Urine Negative (Negative); Blood,Urine Small (Negative); Color,Urine Light Yellow; Glucose,Urine (UA) 4+ (Negative); Ketones,Urine Negative (Negative); Leukocyte Esterase,Urine Negative (Negative); Nitrite,Urine Negative (Negative); PH, Urine 6.5 (5.0-8.0); Protein,Urine 3+ (Negative); RBC,Urine 7 /hpf (0-5); Specific Gravity,Urine 1.025 (1.001-1.035); Urobilinogen,Urine <2.0 mg/dL (<2.0); WBC,Urine 1 /hpf (0-5)
[2021-02-08] MEDS ORDERED: IBUPROFEN 400 MG TAB PO PRN (17:18)
[2021-02-08] MEDS ORDERED: ACETAMINOPHEN TAB 325 MG TAB PO PRN (17:18)
[2021-02-08] MEDS ORDERED: NALOXONE 0.4 MG/ML 1 ML VIAL IV PRN (17:18)
[2021-02-08] MEDS ORDERED: SODIUM CHLORIDE 0.9% 1,000 ML IV SCH (17:30)
[2021-02-08] MEDS ORDERED: ALBUTEROL NEBULIZED 2.5 MG/3 ML INHALATION PRN (20:10)
[2021-02-08] MEDS ORDERED: NITROGLYCERIN SL TABS 0.4 MG TAB SUBLINGUAL PRN (20:10)
[2021-02-08] MEDS ORDERED: ONDANSETRON 4 MG TAB PO PRN (20:10)
[2021-02-08] MEDS ORDERED: FUROSEMIDE 40 MG TAB PO SCH (20:10)
[2021-02-08] MEDS: METOPROLOL TARTRATE 50 MG TAB PO SCH (21:09)
[2021-02-08] MEDS: GABAPENTIN 100 MG CAP PO SCH (21:09)
[2021-02-08] MEDS: traZODone HCL 100 MG TAB PO SCH (21:09)
[2021-02-08] MEDS: SYMBICORT 80-4.5 MCG INHALER INHALATION SCH (21:48)
--- NOTE | 2021-02-08 22:26 | P.HPIM ---
History of Present Illness H&P Date: 02/08/21 Chief Complaint: Legs became weak History of presenting complaint This is a very pleasant 51-year-old patient, chronic stable medical conditions include diabetes mellitus type 2, peripheral neuropathy, hyperlipidemia patient has chronic lower extremity leg wounds. Patient now presents with episodes of falling down. He states that these happens intermittently. The current episode patient was satting in the kitchen reaching [facility] to get a copy and his legs and he felt weak and then he went down to the ground. no chest pain or palpitation. He does often get dizzy on standing up. No seizure activity. No focal weakness. Appetite is good. No fever no chills. Review of systems: GEN.: Tired EYES: None HEENT: None NECK: None RESPIRATORY: As above CARDIOVASCULAR: None GASTROINTESTINAL: None GENITOURINARY: None MUSCULOSKELETAL: Joint pains LYMPHATICS: None HEMATOLOGICAL: None DERMATOLOGICAL: Leg wounds-improved PSYCHIATRY: None NEUROLOGICAL: Numbness tingling hands and feet Past medical history to include: Diabetes, hyperlipidemia, peripheral neuropathy, MRSA infection including abscess and cellulitis,, anxiety, Social history: Patient lives with his 2 children. Previously did [employer]. Smoking 2 packs a day for 32 , stopped recently. Alcohol occasionally. Physical examination: VITAL SIGNS: 98.5, 86, 18, 77/52, repeat 120/71, 100% on room air GENERAL: BMI 25.5, sitting up in bed, comfortable EYES: Pupils equal. Conjunctiva normal. HEENT: External appearance of nose and ears normal, oral cavity grossly normal. NECK: JVD not raised; masses not palpable. HEART: First and second heart sounds are normal; mild edema LUNGS: Respiratory rate normal, decreased breath sounds. ABDOMEN: Soft, nontender, liver spleen not palpable, no masses palpable. PSYCH: Alert and oriented x3; mood and affect normal. DERMATOLOGICAL: Healed Wounds of the lower extremity. See nursing notes. NEUROLOGICAL: Cranial nerves grossly intact; no facial asymmetry, decreased sensation peripheral LYMPHATICS: No lymph nodes palpable in the axilla and neck INVESTIGATIONS, reviewed in the clinical context: EKG tracing personally reviewed by me-no sinus rhythm, prolonged QT Chest x-ray film personally reviewed by me-lungs clear WBC 11.4 hemoglobin 12.2 platelets 285 sodium 129 potassium 5.2 bun 43 creatinine 2.35 glucose 517 Troponin I 2 negative Previous testing: January 17: Hemoglobin 10.8 potassium 4.6 creatinine 2.07 January 4: 2-D echocardiogram/EF 55-60%, [id number] aortic regurgitation Assessment and plan: -This is a patient who presented with acute weakness in the lower extremity, found to have Accu-Cheks and 500s, likely acute kidney injury. No chest pain. No neurological deficits.. -Chronic lower extremity wounds. Recently completed a course of daptomycin for MRSA infection -Chronic congestive heart failure from diastolic dysfunction EF 50-55% Follow hemodynamic state/fluids state -Secondary pulmonary hypertension due to CHF Follow clinically -Diabetes mellitus type 2 chronically on insulin uncontrolled with nonketotic hyperglycemia IV fluids. Follow Accu-Cheks. 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 Orthostatics. Resume home medications. Consult nephrology. Check labs in the morning. Follow Accu-Cheks Past Medical History Past Medical History: Heart Failure, Diabetes Mellitus, Hyperlipidemia, Hypertension Additional Past Medical History / Comment(s): IDDM type II, neuropathy bilateral feet, gout, bilateral eye catarct removal, MRSA . History of Any Multi-Drug Resistant Organisms: MRSA Date of last positivie culture/infection: 12/17/20 MDRO Source:: Right Leg Past Surgical History: Cholecystectomy Additional Past Surgical History / Comment(s): I&D scrotal abscess, I&D back abscess Past Anesthesia/Blood Transfusion Reactions: No Reported Reaction Past Psychological History: Anxiety Smoking Status: Former smoker Past Alcohol Use History: None Reported Past Drug Use History: None Reported - Past Family History Mother Family Medical History: Diabetes Mellitus Father History Unknown: Yes Medications and Allergies Home Medications Medication Instructions Recorded Confirmed Type Omeprazole [PriLOSEC] 40 mg PO LUPILLO-BRKFST #14 capsule. 11/04/19 02/08/21 Rx DULoxetine HCL [Cymbalta] 60 mg PO DAILY 04/01/20 02/08/21 History Acetaminophen Tab [Tylenol] 650 mg PO Q4H PRN 07/25/20 02/08/21 History Albuterol Sulfate [Proair Hfa] 2 puff INHALATION RT-Q6H PRN 07/25/20 02/08/21 History Semaglutide [Ozempic] 1 mg SQ MO 10/03/20 02/08/21 History Atorvastatin [Lipitor] 40 mg PO DAILY #30 tab 10/13/20 02/08/21 Rx traZODone HCL [Desyrel] 100 mg PO HS #30 tab 10/13/20 02/08/21 Rx Fluticasone/Salmeterol [Advair 1 puff INHALATION RT-BID 12/16/20 02/08/21 History 250-50 Diskus] Nitroglycerin Sl Tabs [Nitrostat] 0.4 mg SL Q5M PRN 12/16/20 02/08/21 History Ondansetron [Zofran] 4 mg PO TID PRN 12/16/20 02/08/21 History INSULIN ASPART (NovoLOG) [NovoLOG 10 unit SQ AC-TID 30 Days #5 vial 12/29/20 02/08/21 Rx (formulary)] INSULIN ASPART (NovoLOG) [NovoLOG See Protocol SQ ACHS 01/04/21 02/08/21 History (formulary)] Furosemide [Lasix] 40 mg PO BID@0900,1600 30 Days #60 01/14/21 02/08/21 Rx tab Gabapentin [Neurontin] 100 mg PO TID #12 cap 01/14/21 02/08/21 Rx Metoprolol Tartrate [Lopressor] 50 mg PO BID 30 Days #60 tab 01/14/21 02/08/21 Rx Aspirin 81 mg PO DAILY #30 chewable 01/18/21 02/08/21 Rx amLODIPine [Norvasc] 10 mg PO DAILY #30 tab 01/18/21 02/08/21 Rx Allergies Allergy/AdvReac Type Severity Reaction Status Date / Time No Known Allergies Allergy Verified 02/08/21 14:38 Physical Exam Vitals: Vital Signs Temp Pulse Resp BP Pulse Ox 02/08/21 18:14 79 16 170/96 98 02/08/21 17:44 67 16 132/54 96 02/08/21 16:44 68 16 132/54 98 02/08/21 15:54 86 16 156/88 98 02/08/21 15:21 83 16 120/71 98 02/08/21 14:35 98.5 F 86 18 77/52 100 Intake and Output 02/08/21 02/08/21 02/08/21 06:59 14:59 22:59 Other: Weight 73.936 kg Results CBC & Chem 7: 02/08/21 15:12 02/08/21 15:12 Labs: Abnormal Lab Results - Last 24 Hours (Table) 02/08/21 02/08/21 02/08/21 Range/Units 15:12 15:12 15:12 WBC 11.4 H (3.8-10.6) k/uL Hgb 12.2 L (13.0-17.5) gm/dL Hct 36.1 L (39.0-53.0) % Neutrophils # 8.8 H (1.3-7.7) k/uL Sodium 129 L (137-145) mmol/L Potassium 5.2 H (3.5-5.1) mmol/L Chloride 95 L (98-107) mmol/L BUN 43 H (9-20) mg/dL Creatinine 2.35 H (0.66-1.25) mg/dL Glucose 517 H* (74-99) mg/dL Alkaline Phosphatase 239 H (38-126) U/L Urine Protein 3+ H (Negative) Urine Glucose (UA) 4+ H (Negative) Urine Blood Small H (Negative) Urine RBC 7 H (0-5) /hpf
[2021-02-08 22:46] LABS: Glucose,Whole Blood 528 mg/dL (75-99)
[2021-02-08] MEDS: INSULIN ASPART (NovoLOG) 100 UNIT/ML VIAL SQ SCH (23:06)
[2021-02-08] MEDS: SODIUM CHLORIDE 0.9% 1,000 ML IV SCH (23:08)
[2021-02-08 23:46] LABS: Glucose,Whole Blood 468 mg/dL (75-99)
[2021-02-09] MEDS: INSULIN ASPART (NovoLOG) 100 UNIT/ML VIAL SQ SCH ×7 (00:59→22:07)
[2021-02-09] MEDS ORDERED: DEXTROSE 50% SYRINGE 50 ML IVP STA (03:28)
[2021-02-09] MEDS ORDERED: DEXTROSE 50% SYRINGE 50 ML IVP ONE (03:29)
[2021-02-09 03:34] LABS: Glucose,Whole Blood 49 mg/dL (75-99)
[2021-02-09 03:46] LABS: Glucose,Whole Blood 189 mg/dL (75-99)
[2021-02-09 06:56] LABS: African American GFR (CKD) 36 (>60 ml/min/1.73 sqM); Anion Gap 8 mmol/L; Blood Urea Nitrogen 47 mg/dL (9-20); Calcium 8.9 mg/dL (8.4-10.2); Carbon Dioxide 29 mmol/L (22-30); Chloride 101 mmol/L (98-107); Glucose 114 mg/dL (74-99); Non-African American GFR(CKD) 31 (>60 ml/min/1.73 sqM); Potassium 4.4 mmol/L (3.5-5.1); Sodium 138 mmol/L (137-145)
[2021-02-09 07:24] LABS: Glucose,Whole Blood 123 mg/dL (75-99)
[2021-02-09] MEDS: SYMBICORT 80-4.5 MCG INHALER INHALATION SCH ×2 (07:59→20:32)
[2021-02-09] MEDS: DULoxetine HCL 60 MG CAPSULE.DR PO SCH (08:56)
[2021-02-09] MEDS: SODIUM CHLORIDE 0.9% 1,000 ML IV SCH ×3 (08:56→22:08)
[2021-02-09] MEDS: ATORVASTATIN 40 MG TAB PO SCH (08:56)
[2021-02-09] MEDS: ASPIRIN 81 MG PO SCH (08:56)
[2021-02-09] MEDS: GABAPENTIN 100 MG CAP PO SCH ×3 (08:57→22:07)
[2021-02-09] MEDS: amLODIPine 10 MG TAB PO SCH (08:57)
[2021-02-09] MEDS: PANTOPRAZOLE 40 MG TABLET PO SCH (08:57)
[2021-02-09] MEDS ORDERED: AMINOPHYLLINE 500 MG/20 ML VIAL IV PRN (09:38)
[2021-02-09] MEDS ORDERED: CAFFEINE CITRATE 60 MG/3 ML VIAL IV PRN (09:38)
[2021-02-09] MEDS ORDERED: REGADENOSON 0.4 MG/5 ML SYRINGE IV PRN (09:38)
--- NOTE | 2021-02-09 10:30 | P.CRDCN ---
History of Present Illness History of present illness: HISTORY OF PRESENTING ILLNESS This is a pleasant 51-year-old male past medical history significant for diabetes mellitus, hypertension, dyslipidemia, former nicotine dependence, bilateral neuropathy, chronic kidney disease and chronic diastolic heart failure. He follows in the office with her tomorrow. We have been asked to see in consultation for chest pain. He states he woke up Monday night to get a drink of water. He walked into the kitchen and while standing at the sink he started feeling light headed. He then developed a pressure in his chest in the left precordial region. He began feeling weak and fell to the floor. He denies loss of consciousness. He states his legs have been more and more weak over the last few weeks and he has no energy to do anything. He was recently discharged from the hospital after having a prolonged stay for uncontrolled hypertension. On admission this time his blood glucose was 517. Most recent stress test was a dobutamine stress echocardiogram performed November 2019 that was negative for stress-induced ischemia. Most recent echocardiogram obtained January 2020 revealed preserved LV systolic function with ejection fraction 55-60%, mild to moderate aortic regurgitation, mild mitral regurgitation and mild tricuspid regurgitation. EKG on this admission revealed sinus mechanism, right bundle branch block and left axis deviation. Chest x-ray negative for an acute cardiopulmonary process. Laboratory data reviewed, WBC 11.4, hemoglobin 12.2, platelets 285, cardiac enzymes negative 3, sodium on admission 120 9 repeat today 138, potassium on admission 5. 2 repeat today 4.4, creatinine 2.37 and magnesium 1.8. Current daily cardiac medications include aspirin 81 mg daily, atorvastatin 40 mg daily, Lasix 40 mg twice a day and amlodipine 10 mg daily REVIEW OF SYSTEMS At the time of my exam: CONSTITUTIONAL: Denies fever or chills. CARDIOVASCULAR: Platelets of chest pain. Denies shortness of breath, orthopnea, PND or palpitations. RESPIRATORY: Denies cough. GASTROINTESTINAL: Denies abdominal pain, diarrhea, constipation, nausea or vomiting. MUSCULOSKELETAL: Denies myalgias. NEUROLOGIC: Complains of dizziness. Denies numbness, tingling, headacbe or weakness. ENDOCRINE: Denies fatigue, weight change, polydipsia or polyurina. GENITOURINARY: Denies burning, hematuria or urgency with micturation. HEMATOLOGIC: Denies history of anemia or bleeding. PHYSICAL EXAMINATION Blood pressure 149/81 heart rate 69 afebrile and maintaining oxygen saturation on room air. CONSTITUTIONAL: No apparent distress. HEENT: Head is normocephalic. Pupils are equal, round. Sclerae anicteric. Mucous membranes of the mouth are moist. No JVD. No carotid bruit. CHEST EXAMINATION: Lungs are clear to auscultation. No chest wall tenderness is noted on palpation or with deep breathing. HEART EXAMINATION: Regular rate and rhythm. S1, S2 heard. No murmurs, gallops or rub. ABDOMEN: Soft, nontender. Positive bowel sounds. EXTREMITIES: 2+ peripheral pulses, no lower extremity edema and no calf tenderness. NEUROLOGIC EXAMINATION: Patient is awake, alert and oriented x3. ASSESSMENT Chest pain Near syncope Hyponatremia Hyperkalemia Chronic kidney disease Hypertension Dyslipidemia Diabetes mellitus, uncontrolled PLAN An acute coronary event has been ruled out. Recent echocardiogram reviewed. Perform Lexiscan stress test to assess for stress-induced cardiac ischemia. Ongoing telemetry monitoring. No evidence of arrhythmia or significant pauses noted thus far. Thank you kindly for this consultation. Nurse Practitioner note has been reviewed, I agree with a documented findings and plan of care. Patient was seen and examined. Past Medical History Past Medical History: Heart Failure, Diabetes Mellitus, Hyperlipidemia, Hypertension Additional Past Medical History / Comment(s): IDDM type II, neuropathy bilateral feet, gout, bilateral eye catarct removal, MRSA . History of Any Multi-Drug Resistant Organisms: MRSA Date of last positivie culture/infection: 12/17/20 MDRO Source:: Right Leg Past Surgical History: Cholecystectomy Additional Past Surgical History / Comment(s): I&D scrotal abscess, I&D back abscess Past Anesthesia/Blood Transfusion Reactions: No Reported Reaction Past Psychological History: Anxiety Smoking Status: Former smoker Past Alcohol Use History: None Reported Past Drug Use History: None Reported - Past Family History Mother Family Medical History: Diabetes Mellitus Father History Unknown: Yes Medications and Allergies Home Medications Medication Instructions Recorded Confirmed Type Omeprazole [PriLOSEC] 40 mg PO AC-BRKFST #14 capsule. 11/04/19 02/08/21 Rx DULoxetine HCL [Cymbalta] 60 mg PO DAILY 04/01/20 02/08/21 History Acetaminophen Tab [Tylenol] 650 mg PO Q4H PRN 07/25/20 02/08/21 History Albuterol Sulfate [Proair Hfa] 2 puff INHALATION RT-Q6H PRN 07/25/20 02/08/21 History Semaglutide [Ozempic] 1 mg SQ MO 10/03/20 02/08/21 History Atorvastatin [Lipitor] 40 mg PO DAILY #30 tab 10/13/20 02/08/21 Rx traZODone HCL [Desyrel] 100 mg PO HS #30 tab 10/13/20 02/08/21 Rx Fluticasone/Salmeterol [Advair 1 puff INHALATION RT-BID 12/16/20 02/08/21 History 250-50 Diskus] Nitroglycerin Sl Tabs [Nitrostat] 0.4 mg SL Q5M PRN 12/16/20 02/08/21 History Ondansetron [Zofran] 4 mg PO TID PRN 12/16/20 02/08/21 History INSULIN ASPART (NovoLOG) [NovoLOG 10 unit SQ AC-TID 30 Days #5 vial 12/29/20 02/08/21 Rx (formulary)] INSULIN ASPART (NovoLOG) [NovoLOG See Protocol SQ ACHS 01/04/21 02/08/21 History (formulary)] Furosemide [Lasix] 40 mg PO BID@0900,1600 30 Days #60 01/14/21 02/08/21 Rx tab Gabapentin [Neurontin] 100 mg PO TID #12 cap 01/14/21 02/08/21 Rx Metoprolol Tartrate [Lopressor] 50 mg PO BID 30 Days #60 tab 01/14/21 02/08/21 Rx Aspirin 81 mg PO DAILY #30 chewable 01/18/21 02/08/21 Rx amLODIPine [Norvasc] 10 mg PO DAILY #30 tab 01/18/21 02/08/21 Rx Allergies Allergy/AdvReac Type Severity Reaction Status Date / Time No Known Allergies Allergy Verified 02/08/21 14:38 Physical Exam Vitals: Vital Signs Temp Pulse Pulse Resp BP BP Pulse Ox 02/09/21 01:57 72 18 02/09/21 01:03 98.1 F 72 16 115/71 100 02/08/21 23:36 97.9 F 72 18 179/92 100 02/08/21 23:05 76 18 158/75 98 02/08/21 18:14 79 16 170/96 98 02/08/21 17:44 67 16 132/54 96 02/08/21 16:44 68 16 132/54 98 02/08/21 15:54 86 16 156/88 98 02/08/21 15:21 83 16 120/71 98 02/08/21 14:35 98.5 F 86 18 77/52 100 Intake and Output 02/08/21 02/09/21 02/09/21 22:59 06:59 14:59 Intake Total 300 350 Balance 300 350 Intake: Oral 300 350 Other: Voiding Method Urinal # Voids 1 1 Weight 73.936 kg Results 02/08/21 15:12 02/09/21 06:08 Cardiac Enzymes 02/08/21 02/08/21 02/08/21 Range/Units 15:12 15:12 17:43 AST 22 (17-59) U/L Troponin I <0.012 <0.012 (0.000-0.034) ng/mL 02/08/21 Range/Units 21:53 AST (17-59) U/L Troponin I <0.012 (0.000-0.034) ng/mL Coagulation 02/08/21 Range/Units 15:12 PT 10.1 (9.0-12.0) sec APTT 22.8 (22.0-30.0) sec CBC 02/08/21 Range/Units 15:12 WBC 11.4 H (3.8-10.6) k/uL RBC 4.43 (4.30-5.90) m/uL Hgb 12.2 L (13.0-17.5) gm/dL Hct 36.1 L (39.0-53.0) % Plt Count 285 (150-450) k/uL Comprehensive Metabolic Panel 02/08/21 02/09/21 Range/Units 15:12 06:08 Sodium 129 L 138 (137-145) mmol/L Potassium 5.2 H 4.4 (3.5-5.1) mmol/L Chloride 95 L 101 (98-107) mmol/L Carbon Dioxide 25 29 (22-30) mmol/L BUN 43 H 47 H (9-20) mg/dL Creatinine 2.35 H 2.37 H (0.66-1.25) mg/dL Glucose 517 H* 114 H (74-99) mg/dL Calcium 9.1 8.9 (8.4-10.2) mg/dL AST 22 (17-59) U/L ALT 22 (4-49) U/L Alkaline Phosphatase 239 H (38-126) U/L Total Protein 7.1 (6.3-8.2) g/dL Albumin 3.6 (3.5-5.0) g/dL Current Medications Generic Name Dose Route Start Last Admin Trade Name Freq PRN Reason Stop Dose Admin Acetaminophen 650 mg 02/08/21 17:18 Acetaminophen Tab 325 Mg Tab PO Q6HR PRN Mild Pain or Fever > 100.5 Albuterol Sulfate 2.5 mg 02/08/21 20:10 Albuterol Nebulized 2.5 Mg/3 Ml INHALATION RT-Q6H PRN Shortness Of Breath Amlodipine Besylate 10 mg 02/09/21 09:00 Amlodipine 10 Mg Tab PO DAILY [facility] Aspirin 81 mg 02/09/21 09:00 Aspirin 81 Mg PO DAILY [facility] Atorvastatin Calcium 40 mg 02/09/21 09:00 Atorvastatin 40 Mg Tab PO DAILY [facility] Budesonide/Formoterol Fumarate 2 puff 02/08/21 20:10 02/08/21 21:48 Symbicort 80-4.5 Mcg Inhaler INHALATION Not Given RT-BID [facility] Duloxetine HCl 60 mg 02/09/21 09:00 Duloxetine Hcl 60 Mg Capsule.Dr PO DAILY [facility] Gabapentin 100 mg 02/08/21 22:00 02/08/21 21:09 Gabapentin 100 Mg Cap PO 100 mg TID LUIZA Administration Sodium Chloride 1,000 mls @ 100 mls/hr 02/08/21 22:30 02/08/21 23:08 Saline 0.9% IV 100 mls/hr .Q10H LUIZA Administration Ibuprofen 400 mg 02/08/21 17:18 Ibuprofen 400 Mg Tab PO Q6HR PRN Mild Pain or Fever > 100.5 Insulin Aspart 10 unit 02/09/21 07:30 Insulin Aspart (Novolog) 100 Unit/Ml Vial SQ AC-TID LUIZA Insulin Aspart 0 unit 02/08/21 22:30 02/09/21 00:59 Insulin Aspart (Novolog) 100 Unit/Ml Vial SQ 10 unit ACHS LUI[facility] Administration Protocol Metoprolol Tartrate 50 mg 02/08/21 21:00 02/08/21 21:09 Metoprolol Tartrate 50 Mg Tab PO 50 mg BID LUIZA Administration Naloxone HCl 0.2 mg 02/08/21 17:18 Naloxone 0.4 Mg/Ml 1 Ml Vial IV Q2M PRN Opioid Reversal Nitroglycerin 0.4 mg 02/08/21 20:10 Nitroglycerin Sl Tabs 0.4 Mg Tab SUBLINGUAL Q5M PRN Chest Pain Non-Formulary Medication 1 mg 03/01/21 09:00 Semaglutide [Ozempic] SQ MO [facility] Ondansetron HCl 4 mg 02/08/21 20:10 Ondansetron 4 Mg Tab PO TID PRN Nausea Pantoprazole Sodium 40 mg 02/09/21 07:30 Pantoprazole 40 Mg Tablet PO AC-BRKFST [facility] Trazodone HCl 100 mg 02/08/21 21:00 02/08/21 21:09 Trazodone Hcl 100 Mg Tab PO 100 mg HS LUIZA Administration Intake and Output 02/08/21 02/09/21 02/09/21 22:59 06:59 14:59 Intake Total 300 350 Balance 300 350 Intake: Oral 300 350 Other: Voiding Method Urinal # Voids 1 1 Weight 73.936 kg 02/08/21 15:12 02/09/21 06:08
[2021-02-09 13:11] LABS: Glucose,Whole Blood 220 mg/dL (75-99)
[2021-02-09] MEDS: FLUDROCORTISONE 0.1 MG TAB PO SCH ×2 (13:53→22:06)
--- NOTE | 2021-02-09 15:06 | NM ---
EXAMINATION TYPE: NM stress lexiscan cardiolite DATE OF EXAM: 02/09/2021 COMPARISON: NONE HISTORY: 51-year-old male with chest pain TECHNIQUE: After the intravenous administration of 10.2 mCi Tc 99m Sestamibi - Cardiolite resting SP ECT images acquired 45 minutes post injection. The patient received 0.4mg Lexiscan, 25.2 mCi Tc 99m Sestamibi - Stress images obtained [address] injection FINDINGS: Review of stress and rest SPECT images demonstrates fixed perfusion defect along the inferior wall an d at the inferior apex. There is subtle, small area of reversibility along the mid anterior wall. Gat ed analysis shows normal wall motion with an estimated left ventricular ejection fraction of 50 %. T ID is calculated at 1.03, within normal limits. IMPRESSION: 1. Fixed defect along the inferior wall could represent diaphragmatic attenuation artifact versus old inferior wall infarct. Clinically correlate. 2. Subtle small area of reversibility along the mid anterior wall. 3. Estimated LVEF of 50%.
[2021-02-09] MEDS: METOPROLOL TARTRATE 50 MG TAB PO SCH ×2 (16:13→22:07)
[2021-02-09 17:24] LABS: Glucose,Whole Blood 535 mg/dL (75-99)
[2021-02-09 17:24] LABS: Glucose,Whole Blood 453 mg/dL (75-99)
--- NOTE | 2021-02-09 19:20 | P.PN ---
Progress Note - Text Progress Note Date: 02/09/21 Chief Complaint: Legs became weak History of presenting complaint This is a very pleasant 51-year-old patient, chronic stable medical conditions include diabetes mellitus type 2, peripheral neuropathy, hyperlipidemia patient has chronic lower extremity leg wounds. Patient now presents with episodes of falling down. He states that these happens intermittently. The current episode patient was satting in the kitchen reaching [facility] to get a copy and his legs and he felt weak and then he went down to the ground. no chest pain or palpitation. He does often get dizzy on standing up. No seizure activity. No focal weakness. Appetite is good. No fever no chills. Admitted with falling down. Found to be orthostatic. Nonketotic hyperosmolar hyperglycemia. IV fluids. Found to be from autonomic dysfunction from diabetes. Also chest pain workup as per cardiology. Today: saw patient this morning. Orthostatic. Patient was due for a stress test this afternoon. No further chest pain. Review of systems: Was done for constitutional, cardiovascular, GI, pulmonary. relevant finding as above Active Medications Acetaminophen (Acetaminophen Tab 325 Mg Tab) 650 mg PO Q6HR PRN PRN Reason: Mild Pain or Fever > 100.5 Albuterol Sulfate (Albuterol Nebulized 2.5 Mg/3 Ml) 2.5 mg INHALATION RT-Q6H PRN PRN Reason: Shortness Of Breath Amlodipine Besylate (Amlodipine 10 Mg Tab) 10 mg PO DAILY [facility] Last Admin: 02/09/21 08:57 Dose: 10 mg Documented by: Aspirin (Aspirin 81 Mg) 81 mg PO DAILY [facility] Last Admin: 02/09/21 08:56 Dose: 81 mg Documented by: Atorvastatin Calcium (Atorvastatin 40 Mg Tab) 40 mg PO DAILY [facility] Last Admin: 02/09/21 08:56 Dose: 40 mg Documented by: Budesonide/Formoterol Fumarate (Symbicort 80-4.5 Mcg Inhaler) 2 puff INHALATION RT-BID [facility] Last Admin: 02/09/21 07:59 Dose: Not Given Documented by: Duloxetine HCl (Duloxetine Hcl 60 Mg Capsule.) 60 mg PO DAILY [facility] Last Admin: 02/09/21 08:56 Dose: 60 mg Documented by: Fludrocortisone Acetate (Fludrocortisone 0.1 Mg Tab) 0.1 mg PO BID [facility] Last Admin: 02/09/21 13:53 Dose: 0.1 mg Documented by: Gabapentin (Gabapentin 100 Mg Cap) 100 mg PO TID [facility] Last Admin: 02/09/21 16:13 Dose: 100 mg Documented by: Sodium Chloride (Saline 0.9%) 1,000 mls @ 100 mls/hr IV .Q10H [facility] Last Admin: 02/09/21 17:40 Dose: Not Given Documented by: Ibuprofen (Ibuprofen 400 Mg Tab) 400 mg PO Q6HR PRN PRN Reason: Mild Pain or Fever > 100.5 Insulin Aspart (Insulin Aspart (Novolog) 100 Unit/Ml Vial) 10 unit SQ AC-TID [facility] Last Admin: 02/09/21 17:39 Dose: 10 unit Documented by: Insulin Aspart (Insulin Aspart (Novolog) 100 Unit/Ml Vial) 0 unit SQ [facility]; Protocol Last Admin: 02/09/21 17:39 Dose: 8 unit Documented by: Metoprolol Tartrate (Metoprolol Tartrate 50 Mg Tab) 50 mg PO BID [facility] Last Admin: 02/09/21 16:13 Dose: Not Given Documented by: Naloxone HCl (Naloxone 0.4 Mg/Ml 1 Ml Vial) 0.2 mg IV Q2M PRN PRN Reason: Opioid Reversal Nitroglycerin (Nitroglycerin Sl Tabs 0.4 Mg Tab) 0.4 mg SUBLINGUAL Q5M PRN PRN Reason: Chest Pain Non-Formulary Medication (Semaglutide [Ozempic]) 1 mg SQ MO [facility] Ondansetron HCl (Ondansetron 4 Mg Tab) 4 mg PO TID PRN PRN Reason: Nausea Pantoprazole Sodium (Pantoprazole 40 Mg Tablet) 40 mg PO AC-BRKFST [facility] Last Admin: 02/09/21 08:57 Dose: 40 mg Documented by: Trazodone HCl (Trazodone Hcl 100 Mg Tab) 100 mg PO HS [facility] Last Admin: 02/08/21 21:09 Dose: 100 mg Documented by: Past medical history to include: Diabetes, hyperlipidemia, peripheral neuropathy, MRSA infection including abscess and cellulitis,, anxiety, Social history: Patient lives with his 2 children. 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 Smoking 2 packs a day for 32 , stopped recently. Alcohol occasionally. Physical examination: VITAL SIGNS: 97.9, 69, 16, 100% on room air. Blood pressure standing 65/49, la ida down 1 28 x 74 GENERAL: in bed, comfortable EYES: Pupils equal. Conjunctiva normal. NECK: JVD not raised; masses not palpable. HEART: First and second heart sounds are normal; mild edema LUNGS: Respiratory rate normal, decreased breath sounds. ABDOMEN: Soft, nontender, liver spleen not palpable, no masses palpable. PSYCH: Alert and oriented x3; mood and affect normal. DERMATOLOGICAL: Healed Wounds of the lower extremity. See nursing notes. NEUROLOGICAL: Cranial nerves grossly intact; no facial asymmetry, decreased sensation peripheral INVESTIGATIONS, reviewed in the clinical context: February 09: Potassium 4.4 bun 47 creatinine 2.37 Nuclear stress test: Fixed defect along the inferior wall. Subtle small area of reversibility along the mid anterior wall. EF 50% EKG tracing personally reviewed by me-no sinus rhythm, prolonged QT Chest x-ray film personally reviewed by me-lungs clear WBC 11.4 hemoglobin 12.2 platelets 285 sodium 129 potassium 5.2 bun 43 creatinine 2.35 glucose 517 Troponin I 2 negative Previous testing: January 17: Hemoglobin 10.8 potassium 4.6 creatinine 2.07 January 4: 2-D echocardiogram/EF 55-60%, [id number] aortic regurgitation Assessment and plan: -Fall, secondary to orthostatic hypertension secondary to autonomic dysfunction from diabetes-new diagnosis Add Florinef 0.1 mg twice daily and FLORA stockings above thigh. Fall precautions -Chronic lower extremity wounds. Recently completed a course of daptomycin for MRSA infection -Chronic congestive heart failure from diastolic dysfunction EF 50-55% Follow hemodynamic state/fluids state -Secondary pulmonary hypertension due to CHF Follow clinically -Diabetes mellitus type 2 chronically on insulin uncontrolled with nonketotic hyperglycemia IV fluids. Follow Accu-Cheks. 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 Florinef added. FLORA stockings. Fall precautions. Stress test results to be followed by cardiology
[2021-02-09 20:10] LABS: Glucose,Whole Blood 267 mg/dL (75-99)
[2021-02-09] MEDS: traZODone HCL 100 MG TAB PO SCH (22:07)
[2021-02-10 07:03] LABS: Glucose,Whole Blood 383 mg/dL (75-99)
[2021-02-10] MEDS: INSULIN ASPART (NovoLOG) 100 UNIT/ML VIAL SQ SCH ×7 (07:27→20:41)
[2021-02-10] MEDS: ATORVASTATIN 40 MG TAB PO SCH (07:36)
[2021-02-10] MEDS: ASPIRIN 81 MG PO SCH (07:36)
[2021-02-10] MEDS: PANTOPRAZOLE 40 MG TABLET PO SCH (07:36)
[2021-02-10] MEDS: amLODIPine 10 MG TAB PO SCH (07:36)
[2021-02-10] MEDS: METOPROLOL TARTRATE 50 MG TAB PO SCH ×2 (07:36→19:34)
[2021-02-10] MEDS: FLUDROCORTISONE 0.1 MG TAB PO SCH ×2 (07:36→19:34)
[2021-02-10] MEDS: DULoxetine HCL 60 MG CAPSULE.DR PO SCH (07:37)
[2021-02-10] MEDS: GABAPENTIN 100 MG CAP PO SCH ×3 (07:37→19:34)
[2021-02-10] MEDS: SYMBICORT 80-4.5 MCG INHALER INHALATION SCH ×2 (08:54→20:39)
[2021-02-10 09:37] LABS: African American GFR (CKD) 37 (>60 ml/min/1.73 sqM); Anion Gap 3 mmol/L; Blood Urea Nitrogen 47 mg/dL (9-20); Calcium 8.6 mg/dL (8.4-10.2); Carbon Dioxide 29 mmol/L (22-30); Chloride 103 mmol/L (98-107); Glucose 353 mg/dL (74-99); Non-African American GFR(CKD) 32 (>60 ml/min/1.73 sqM); Potassium 4.3 mmol/L (3.5-5.1); Sodium 135 mmol/L (137-145)
--- NOTE | 2021-02-10 10:52 | P.PN ---
Subjective HISTORY OF PRESENTING ILLNESS This is a pleasant 51-year-old male past medical history significant for diabetes mellitus, hypertension, dyslipidemia, former nicotine dependence, bilateral neuropathy, chronic kidney disease and chronic diastolic heart failure. He follows in the office with her tomorrow. We have been asked to see in consultation for chest pain. He states he woke up Monday night to get a drink of water. He walked into the kitchen and while standing at the sink he started feeling light headed. He then developed a pressure in his chest in the left precordial region. He began feeling weak and fell to the floor. He denies loss of consciousness. He states his legs have been more and more weak over the last few weeks and he has no energy to do anything. He was recently discharged from the hospital after having a prolonged stay for uncontrolled hypertension. On admission this time his blood glucose was 517. Most recent stress test was a dobutamine stress echocardiogram performed November 2019 that was negative for stress-induced ischemia. Most recent echocardiogram obtained January 2020 revealed preserved LV systolic function with ejection fraction 55-60%, mild to moderate aortic regurgitation, mild mitral regurgitation and mild tricuspid regurgitation. EKG on this admission revealed sinus mechanism, right bundle branch block and left axis deviation. Chest x-ray negative for an acute cardiopulmonary process. Laboratory data reviewed, WBC 11.4, hemoglobin 12.2, platelets 285, cardiac enzymes negative 3, sodium on admission 120 9 repeat today 138, potassium on admission 5. 2 repeat today 4.4, creatinine 2.37 and magnesium 1.8. Current daily cardiac medications include aspirin 81 mg daily, atorvastatin 40 mg daily, Lasix 40 mg twice a day and amlodipine 10 mg daily 02/10/2021 Patient is seen and examined resting comfortably lying flat in bed in no acute distress. He denies symptoms of chest discomfort, shortness of breath or palpitations. He was having some episodes of dizziness yesterday. Orthostatic vital signs were obtained and revealed a significant change in his blood pressure from supine to standing. Although his blood pressure never went below 115/68. Heart rate maintained in the 80s. Lexiscan stress test performed yesterday revealed primarily fixed defect of the inferior wall with a subtle small area of reversibility of the anterior wall. PHYSICAL EXAMINATION CONSTITUTIONAL: No apparent distress. HEENT: Head is normocephalic. Pupils are equal, round. Sclerae anicteric. Mucous membranes of the mouth are moist. No JVD. No carotid bruit. CHEST EXAMINATION: Lungs are clear to auscultation. No chest wall tenderness is noted on palpation or with deep breathing. HEART EXAMINATION: Regular rate and rhythm. S1, S2 heard. No murmurs, gallops or rub. EXTREMITIES: 2+ peripheral pulses, no lower extremity edema and no calf tenderness. ASSESSMENT Chest pain Near syncope Hyponatremia Hyperkalemia Chronic kidney disease Hypertension Dyslipidemia Diabetes mellitus, uncontrolled PLAN Stress test reviewed and reveals a subtle small area of reversibility of the anterior wall however given his history of chronic kidney disease and no high risk factors suggestive of significant concerning coronary artery disease and in the absence of troponin elevation or EKG abnormalities we will maximize his medical therapy. Currently he is maintained on aspirin, atorvastatin and Lopressor. We will add long-acting nitrate to his daily regimen. Continue to monitor for another 24 hours. Increase activity as tolerated. Further recommendations to follow based upon clinical course. Nurse Practitioner note has been reviewed, I agree with a documented findings and plan of care. Patient was seen and examined. Objective - Vital Signs Vital signs: Vital Signs Temp 97.8 F 02/10/21 07:00 Pulse 85 02/10/21 07:00 Resp 18 02/10/21 08:00 BP 164/81 02/10/21 07:00 Pulse Ox 99 02/10/21 08:54 Intake & Output 02/09/21 02/10/21 02/10/21 18:59 06:59 18:59 Output Total 450 Balance -450 Weight 73.94 kg Output: Urine 450 Other: Voiding Method Urinal Urinal # Voids 2 2 - Labs CBC & Chem 7: 02/08/21 15:12 02/10/21 09:02 Labs: Abnormal Lab Results - Last 24 Hours (Table) 02/09/21 02/09/21 02/09/21 Range/Units 13:09 17:22 17:23 Sodium (137-145) mmol/L BUN (9-20) mg/dL Creatinine (0.66-1.25) mg/dL Glucose (74-99) mg/dL POC Glucose (mg/dL) 220 H 535 H 453 H (75-99) mg/dL 02/09/21 02/10/21 02/10/21 Range/Units 20:08 07:01 09:02 Sodium 135 L (137-145) mmol/L BUN 47 H (9-20) mg/dL Creatinine 2.31 H (0.66-1.25) mg/dL Glucose 353 H (74-99) mg/dL POC Glucose (mg/dL) 267 H 383 H (75-99) mg/dL
[2021-02-10 11:41] LABS: Glucose,Whole Blood 483 mg/dL (75-99)
[2021-02-10] MEDS: ISOSORBIDE MONONITRATE ER 30 MG TAB.ER.24H PO SCH (11:56)
[2021-02-10] MEDS: SODIUM CHLORIDE 0.9% 1,000 ML IV SCH (11:57)
--- NOTE | 2021-02-10 14:11 | EST ---
EXERCISE STRESS DATE OF SERVICE: February 10, 2021. INDICATION: Chest pain. STRESS DATA: Heart rate 81, pressure is 142/81 mmHg. Baseline EKG showed sinus mechanism. 0.4 mg of Lexiscan given over 15 seconds per protocol. Max heart rate 90 minutes/minute. Maximum pressure was 142/81 mmHg. Clinically, the patient did not have any symptoms and the EKG did not show any significant ST or T-wave abnormalities concerning for ischemia. CONCLUSION: 1. Nondiagnostic electrocardiogram stress testing in response to Lexiscan. 2. Please follow up on the Cardiolite portion. MMODL / IJN: [id number] /
[2021-02-10 17:01] LABS: Glucose,Whole Blood 387 mg/dL (75-99)
[2021-02-10] MEDS: traZODone HCL 100 MG TAB PO SCH (19:34)
[2021-02-10 19:55] LABS: Glucose,Whole Blood 400 mg/dL (75-99)
--- NOTE | 2021-02-10 21:47 | P.PN ---
Progress Note - Text Progress Note Date: 02/10/21 Chief Complaint: Legs became weak History of presenting complaint This is a very pleasant 51-year-old patient, chronic stable medical conditions include diabetes mellitus type 2, peripheral neuropathy, hyperlipidemia patient has chronic lower extremity leg wounds. Patient now presents with episodes of falling down. He states that these happens intermittently. The current episode patient was satting in the kitchen reaching [facility] to get a copy and his legs and he felt weak and then he went down to the ground. no chest pain or palpitation. He does often get dizzy on standing up. No seizure activity. No focal weakness. Appetite is good. No fever no chills. Admitted with falling down. Found to be orthostatic. Nonketotic hyperosmolar hyperglycemia. IV fluids. Found to be from autonomic dysfunction from diabetes. Also chest pain workup as per cardiology. Found to be orthostatic. Hua added and also FLORA stockings. Today: Nuclear stress test showed a fixed defect and a small area of reversibility. Patient be referred cardiac catheter showing tomorrow. No chest pain. Review of systems: Was done for constitutional, cardiovascular, GI, pulmonary. relevant finding as above Active Medications Acetaminophen (Acetaminophen Tab 325 Mg Tab) 650 mg PO Q6HR PRN PRN Reason: Mild Pain or Fever > 100.5 Albuterol Sulfate (Albuterol Nebulized 2.5 Mg/3 Ml) 2.5 mg INHALATION RT-Q6H PRN PRN Reason: Shortness Of Breath Amlodipine Besylate (Amlodipine 10 Mg Tab) 10 mg PO DAILY [facility] Last Admin: 02/10/21 07:36 Dose: 10 mg Documented by: Aspirin (Aspirin 81 Mg) 81 mg PO DAILY [facility] Last Admin: 02/10/21 07:36 Dose: 81 mg Documented by: Atorvastatin Calcium (Atorvastatin 40 Mg Tab) 40 mg PO DAILY [facility] Last Admin: 02/10/21 07:36 Dose: 40 mg Documented by: Budesonide/Formoterol Fumarate (Symbicort 80-4.5 Mcg Inhaler) 2 puff INHALATION RT-BID [facility] Last Admin: 02/10/21 20:39 Dose: Not Given Documented by: Duloxetine HCl (Duloxetine Hcl 60 Mg Capsule.) 60 mg PO DAILY [facility] Last Admin: 02/10/21 07:37 Dose: 60 mg Documented by: Fludrocortisone Acetate (Fludrocortisone 0.1 Mg Tab) 0.1 mg PO BID [facility] Last Admin: 02/10/21 19:34 Dose: 0.1 mg Documented by: Gabapentin (Gabapentin 100 Mg Cap) 100 mg PO TID [facility] Last Admin: 02/10/21 19:34 Dose: 100 mg Documented by: Sodium Chloride (Saline 0.9%) 1,000 mls @ 100 mls/hr IV .Q10H [facility] Last Admin: 02/10/21 11:57 Dose: 100 mls/hr Documented by: Ibuprofen (Ibuprofen 400 Mg Tab) 400 mg PO Q6HR PRN PRN Reason: Mild Pain or Fever > 100.5 Insulin Aspart (Insulin Aspart (Novolog) 100 Unit/Ml Vial) 10 unit SQ AC-TID [facility] Last Admin: 02/10/21 17:18 Dose: 10 unit Documented by: Insulin Aspart (Insulin Aspart (Novolog) 100 Unit/Ml Vial) 0 unit SQ [facility]; Protocol Last Admin: 02/10/21 20:41 Dose: 7 unit Documented by: Isosorbide Mononitrate (Isosorbide Mononitrate Er 30 Mg Tab.Er.24h) 30 mg PO DAILY [facility] Last Admin: 02/10/21 11:56 Dose: 30 mg Documented by: Metoprolol Tartrate (Metoprolol Tartrate 50 Mg Tab) 50 mg PO BID [facility] Last Admin: 02/10/21 19:34 Dose: 50 mg Documented by: Naloxone HCl (Naloxone 0.4 Mg/Ml 1 Ml Vial) 0.2 mg IV Q2M PRN PRN Reason: Opioid Reversal Nitroglycerin (Nitroglycerin Sl Tabs 0.4 Mg Tab) 0.4 mg SUBLINGUAL Q5M PRN PRN Reason: Chest Pain Non-Formulary Medication (Semaglutide [Ozempic]) 1 mg SQ MO [facility] Ondansetron HCl (Ondansetron 4 Mg Tab) 4 mg PO TID PRN PRN Reason: Nausea Pantoprazole Sodium (Pantoprazole 40 Mg Tablet) 40 mg PO AC-BRKFST [facility] Last Admin: 02/10/21 07:36 Dose: 40 mg Documented by: Trazodone HCl (Trazodone Hcl 100 Mg Tab) 100 mg PO HS [facility] Last Admin: 02/10/21 19:34 Dose: 100 mg Documented by: Past medical history to include: Diabetes, hyperlipidemia, peripheral neuropathy, MRSA infection including abscess and cellulitis,, anxiety, Social history: Patient lives with his 2 children. 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 Smoking 2 packs a day for 32 , stopped recently. Alcohol occasionally. Physical examination: VITAL SIGNS: 97.9, 81, 18, 118/62, 99% room air GENERAL: in bed, comfortable EYES: Pupils equal. Conjunctiva normal. NECK: JVD not raised; masses not palpable. HEART: First and second heart sounds are normal; mild edema LUNGS: Respiratory rate normal, decreased breath sounds. ABDOMEN: Soft, nontender, liver spleen not palpable, no masses palpable. PSYCH: Alert and oriented x3; mood and affect normal. DERMATOLOGICAL: Healed Wounds of the lower extremity. See nursing notes. NEUROLOGICAL: Cranial nerves grossly intact; no facial asymmetry, decreased sensation peripheral INVESTIGATIONS, reviewed in the clinical context: February 09: Potassium 4.4 bun 47 creatinine 2.37 Nuclear stress test: Fixed defect along the inferior wall. Subtle small area of reversibility along the mid anterior wall. EF 50% EKG tracing personally reviewed by me-no sinus rhythm, prolonged QT Chest x-ray film personally reviewed by me-lungs clear WBC 11.4 hemoglobin 12.2 platelets 285 sodium 129 potassium 5.2 bun 43 creatinine 2.35 glucose 517 Troponin I 2 negative Previous testing: January 17: Hemoglobin 10.8 potassium 4.6 creatinine 2.07 January 05: 2-D echocardiogram/EF 55-60%, [id number] aortic regurgitation Assessment and plan: -Fall, secondary to orthostatic hypertension secondary to autonomic dysfunction from diabetes- Florinef 0.1 mg twice daily and FLORA stockings above thigh. Fall precautions -Anterior chest pain. Nuclear stress test showing some reversibility. Pending cardiac catheterization -Chronic lower extremity wounds. Recently completed a course of daptomycin for MRSA infection -Chronic congestive heart failure from diastolic dysfunction EF 50-55% Follow hemodynamic state/fluids state -Secondary pulmonary hypertension due to CHF Follow clinically -Diabetes mellitus type 2 chronically on insulin uncontrolled with nonketotic hyperglycemia IV fluids. Follow Accu-Cheks. 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 Other medications to continue. Discussed with the patient.
[2021-02-10] MEDS ORDERED: INSULIN DETEMIR (LEVEMIR) 100 UNIT/ML SYR SQ SCH (22:15)
[2021-02-10 22:28] LABS: Glucose,Whole Blood 258 mg/dL (75-99)
[2021-02-11] MEDS: SODIUM CHLORIDE 0.9% 1,000 ML IV SCH ×2 (00:15→08:27)
[2021-02-11 03:04] VITALS: RESP 18
[2021-02-11 07:34] LABS: Glucose,Whole Blood 253 mg/dL (75-99)
[2021-02-11] MEDS: SYMBICORT 80-4.5 MCG INHALER INHALATION SCH (07:46)
[2021-02-11 07:52] VITALS: BP 172/82; PULSE 79; TEMP 97.8
[2021-02-11] MEDS: INSULIN ASPART (NovoLOG) 100 UNIT/ML VIAL SQ SCH ×2 (08:26)
[2021-02-11] MEDS: ASPIRIN 81 MG PO SCH (08:27)
[2021-02-11] MEDS: amLODIPine 10 MG TAB PO SCH (08:27)
[2021-02-11] MEDS: PANTOPRAZOLE 40 MG TABLET PO SCH (08:27)
[2021-02-11] MEDS: ATORVASTATIN 40 MG TAB PO SCH (08:27)
[2021-02-11] MEDS: DULoxetine HCL 60 MG CAPSULE.DR PO SCH (08:27)
[2021-02-11] MEDS: ISOSORBIDE MONONITRATE ER 30 MG TAB.ER.24H PO SCH (08:27)
[2021-02-11] MEDS: FLUDROCORTISONE 0.1 MG TAB PO SCH (08:27)
[2021-02-11] MEDS: GABAPENTIN 100 MG CAP PO SCH (08:27)
[2021-02-11] MEDS: METOPROLOL TARTRATE 50 MG TAB PO SCH (08:27)
--- NOTE | 2021-02-11 10:41 | P.PN ---
Subjective Progress Note Date: 02/11/21 Principal diagnosis: Chest pain This is a 51 year old gentleman with a past medical history significant for chronic kidney disease and also diabetes and hypertension and dyslipidemia who was admitted to the hospital with a chest discomfort. For that reason we are asked to see the patient as a consult. The patient was ruled out for acute coronary event. He underwent myocardial perfusion imaging stress test and that revealed subtle small area of reversibility of the anterior wall. Unfortunately the patient GFR is very low. Because of that we advise conservative medical approach. He was seen this morning. He stated that the chest discomfort has improved. Currently his pain is about 1/10 in intensity. No shortness of breath. The kidney function continues to be abnormal. We advised the patient to continue the conservative medical approach as far as the chest discomfort is not worse compared to before. I had a long discussion with him about the risk of doing coronary angiogram and to breathe as in the kidney function up with him on dialysis and the patient is in full understanding and agreement at this point. Objective - Vital Signs Vital signs: Vital Signs Temp 97.8 F 02/11/21 07:00 Pulse 79 02/11/21 08:00 Resp 18 02/11/21 08:00 BP 172/82 02/11/21 07:00 Pulse Ox 100 02/11/21 07:00 Intake & Output 02/10/21 02/11/21 02/11/21 18:59 06:59 18:59 Intake Total 600 350 Output Total 600 1000 Balance 600 -600 -650 Intake: IV 600 Sodium Chloride 0.9% 1, 600 000 ml @ 100 mls/hr IV . Q10H LUIZA Rx#:[id number] Oral 350 Output: Urine 600 1000 Other: Voiding Method Urinal Urinal Urinal # Voids 2 - Constitutional General appearance: Present: no acute distress - Respiratory Respiratory: bilateral: CTA - Cardiovascular Rhythm: regular - Labs CBC & Chem 7: 02/08/21 15:12 02/10/21 09:02 Labs: Abnormal Lab Results - Last 24 Hours (Table) 02/10/21 02/10/21 02/10/21 Range/Units 11:38 17:00 19:53 POC Glucose (mg/dL) 483 H 387 H 400 H (75-99) mg/dL 02/10/21 02/11/21 Range/Units 22:26 07:32 POC Glucose (mg/dL) 258 H 253 H (75-99) mg/dL Assessment and Plan Assessment: Assessment #1 chest discomfort which has improved #2 chronic kidney disease #3 multiple comorbidities Plan #1 continue the current medical regimen #2 maximize medical treatment if the pressure allowed #3 further recommendation to follow
[2021-02-11 12:16] LABS: Glucose,Whole Blood 95 mg/dL (75-99)
--- NOTE | 2021-02-11 17:24 | P.DS ---
Providers Date of admission: 02/09/21 16:13 Expected date of discharge: 02/11/21 Attending physician: Armando Pablo Consults: 02/08/21 17:18 Consult Physician Routine Consulting Provider: Pieter Payne Consult Reason/Comments: CP Do you want consulting provider notified?: Yes Primary care physician: Meet Fontanez Assessment: Chief Complaint: Legs became weak History of presenting complaint This is a very pleasant 51-year-old patient, chronic stable medical conditions include diabetes mellitus type 2, peripheral neuropathy, hyperlipidemia patient has chronic lower extremity leg wounds. Patient now presents with episodes of falling down. He states that these happens intermittently. The current episode patient was satting in the kitchen reaching [place] to get a copy and his legs and he felt weak and then he went down to the ground. no chest pain or palpitation. He does often get dizzy on standing up. No seizure activity. No focal weakness. Appetite is good. No fever no chills. Admitted with falling down. Found to be orthostatic. Nonketotic hyperosmolar hyperglycemia. IV fluids. Found to be from autonomic dysfunction from diabetes. Also chest pain workup as per cardiology. Found to be orthostatic. Florinef added and also FLORA stockings. Nuclear stress test showed a fixed defect and a small area of reversibility. Given his renal function it was decided to manage him medically. Imdur was added. Today: Care was discussed with the patient. Patient will follow-up with cardiology, nephrology, and PCP. Questions answered Consultation: Dr. Ureña from cardiology Past medical history to include: Diabetes, hyperlipidemia, peripheral neuropathy, MRSA infection including abscess and cellulitis,, anxiety, Social history: Patient lives with his 2 children. Previously did [employer]. Smoking 2 packs a day for 32 , stopped recently. Alcohol occasionally. Physical examination: VITAL SIGNS: 97.8, 79, 18, 1 28 x 68, 100% room air GENERAL: in bed, comfortable EYES: Pupils equal. Conjunctiva normal. NECK: JVD not raised; masses not palpable. HEART: First and second heart sounds are normal; mild edema LUNGS: Respiratory rate normal, decreased breath sounds. ABDOMEN: Soft, nontender, liver spleen not palpable, no masses palpable. PSYCH: Alert and oriented x3; mood and affect normal. DERMATOLOGICAL: Healed Wounds of the lower extremity. See nursing notes. NEUROLOGICAL: Cranial nerves grossly intact; no facial asymmetry, decreased sensation peripheral INVESTIGATIONS, reviewed in the clinical context: February 09: Potassium 4.4 bun 47 creatinine 2.37 Nuclear stress test: Fixed defect along the inferior wall. Subtle small area of reversibility along the mid anterior wall. EF 50% EKG tracing personally reviewed by me-no sinus rhythm, prolonged QT Chest x-ray film personally reviewed by me-lungs clear WBC 11.4 hemoglobin 12.2 platelets 285 sodium 129 potassium 5.2 bun 43 creatinine 2.35 glucose 517 Troponin I 2 negative Previous testing: January 17: Hemoglobin 10.8 potassium 4.6 creatinine 2.07 January 4: 2-D echocardiogram/EF 55-60%, [id number] aortic regurgitation Assessment and plan: -Fall, secondary to orthostatic hypertension secondary to autonomic dysfunction from diabetes- Florinef 0.1 mg twice daily and FLORA stockings above thigh. Fall precautions -Anterior chest pain. Nuclear stress test showing some reversibility. For medical management. Imdur added -Chronic lower extremity wounds. Recently completed a course of daptomycin for MRSA infection -Chronic congestive heart failure from diastolic dysfunction EF 50-55% Follow hemodynamic state/fluids state -Secondary pulmonary hypertension due to CHF Follow clinically -Diabetes mellitus type 2 chronically on insulin uncontrolled with nonketotic hyperglycemia IV fluids. Follow Accu-Cheks. 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 DULoxetine HCL [Cymbalta] 60 mg PO DAILY Acetaminophen Tab [Tylenol] 650 mg PO Q4H PRN PRN Reason: Mild Pain Or Fever > 100.5 Albuterol Sulfate [Proair Hfa] 2 puff INHALATION RT-Q6H PRN PRN Reason: Shortness Of Breath Semaglutide [Ozempic] 1 mg SQ MO traZODone HCL [Desyrel] 100 mg PO HS #30 tab Atorvastatin [Lipitor] 40 mg PO DAILY #30 tab Fluticasone/Salmeterol [Advair 250-50 Diskus] 1 puff INHALATION RT-BID Nitroglycerin Sl Tabs [Nitrostat] 0.4 mg SL Q5M PRN PRN Reason: Chest Pain Gabapentin [Neurontin] 100 mg PO TID #12 cap Ondansetron [Zofran] 4 mg PO TID PRN PRN Reason: Nausea INSULIN ASPART (NovoLOG) [NovoLOG (formulary)] See Protocol SQ ACHS Metoprolol Tartrate [Lopressor] 50 mg PO BID 30 Days #60 tab Aspirin 81 mg PO DAILY #30 chewable amLODIPine [Norvasc] 10 mg PO DAILY #30 tab Discontinued INSULIN ASPART (NovoLOG) [NovoLOG (formulary)] 10 unit SQ AC-TID 30 Days #5 vial Furosemide [Lasix] 40 mg PO BID@0900,1600 30 Days #60 tab Discharge Medication List Omeprazole [PriLOSEC] 40 mg PO AC-BRKFST #14 capsule. 11/04/19 [Rx] DULoxetine HCL [Cymbalta] 60 mg PO DAILY 04/01/20 [History] Acetaminophen Tab [Tylenol] 650 mg PO Q4H PRN 07/25/20 [History] Albuterol Sulfate [Proair Hfa] 2 puff INHALATION RT-Q6H PRN 07/25/20 [History] Semaglutide [Ozempic] 1 mg SQ MO 10/03/20 [History] Atorvastatin [Lipitor] 40 mg PO DAILY #30 tab 10/13/20 [Rx] traZODone HCL [Desyrel] 100 mg PO HS #30 tab 10/13/20 [Rx] Fluticasone/Salmeterol [Advair 250-50 Diskus] 1 puff INHALATION RT-BID 12/16/20 [History] Nitroglycerin Sl Tabs [Nitrostat] 0.4 mg SL Q5M PRN 12/16/20 [History] Ondansetron [Zofran] 4 mg PO TID PRN 12/16/20 [History] INSULIN ASPART (NovoLOG) [NovoLOG (formulary)] See Protocol SQ ACHS 01/04/21 [History] Gabapentin [Neurontin] 100 mg PO TID #12 cap 01/14/21 [Rx] Metoprolol Tartrate [Lopressor] 50 mg PO BID 30 Days #60 tab 01/14/21 [Rx] Aspirin 81 mg PO DAILY #30 chewable 01/18/21 [Rx] amLODIPine [Norvasc] 10 mg PO DAILY #30 tab 01/18/21 [Rx] Fludrocortisone [Florinef] 0.1 mg PO BID #60 tab 02/11/21 [Rx] Isosorbide Mononitrate ER [Imdur] 30 mg PO DAILY #30 tab.er.24h 02/11/21 [Rx] Follow up Appointment(s)/Referral(s): Equipment & Supplies,[facility] [NON-STAFF] - As Needed Meet Fontanez DO [Primary Care Provider] - 1-2 days [facility], [NON-STAFF] - 1-2 Days Rito Christine DO [STAFF PHYSICIAN] - 1 Week Alfredo Dickson MD [STAFF PHYSICIAN] - 2 Weeks Patient Instructions/Handouts: Near Syncope (DC) Activity/Diet/Wound Care/Special Instructions: send home with thigh high stockings
[2021-03-01] MEDS ORDERED: NON FORMULARY DRUG (Semaglutide [Ozempic] 1 MG/0.75 ML Pen.Injctr) SQ SCH (09:00)
== END 2021-02-11 13:12 | disposition home health service (06) | DRG 74 ==
LOC: EC 14:22 → 6NMEDSUR 17:18 → OBSVTOIN 02-09 16:13 → 6NMEDSUR 02-11 00:51
PROVIDERS: ADMIT Hospitalist; ATTEND Hospitalist
DX: E11.43 Type 2 diabetes mellitus with diabetic autonomic (poly)neuropathy (principal); E87.1 Hypo-osmolality and hyponatremia; I13.0 Hypertensive heart and chronic kidney disease with heart failure and stage 1 through stage 4 chronic kidney disease, or unspecified chronic kidney disease; I50.32 Chronic diastolic (congestive) heart failure; N17.9 Acute kidney failure, unspecified; I95.1 Orthostatic hypotension; E11.22 Type 2 diabetes mellitus with diabetic chronic kidney disease; E11.42 Type 2 diabetes mellitus with diabetic polyneuropathy; E78.5 Hyperlipidemia, unspecified; J44.9 Chronic obstructive pulmonary disease, unspecified; M10.9 Gout, unspecified; E87.5 Hyperkalemia; I45.81 Long QT syndrome; N18.30 Chronic kidney disease, stage 3 unspecified; E11.21 Type 2 diabetes mellitus with diabetic nephropathy; E11.00 Type 2 diabetes mellitus with hyperosmolarity without nonketotic hyperglycemic-hyperosmolar coma (NKHHC); R07.89 Other chest pain; F41.9 Anxiety disorder, unspecified; I25.10 Atherosclerotic heart disease of native coronary artery without angina pectoris; I08.8 Other rheumatic multiple valve diseases; I27.29 Other secondary pulmonary hypertension; I45.10 Unspecified right bundle-branch block; Z20.822 Contact with and (suspected) exposure to COVID-19; R29.6 Repeated falls; Z79.52 Long term (current) use of systemic steroids; Z79.82 Long term (current) use of aspirin; Z79.899 Other long term (current) drug therapy; Z87.891 Personal history of nicotine dependence; W18.30XA Fall on same level, unspecified, initial encounter; Z86.14 Personal history of Methicillin resistant Staphylococcus aureus infection; Z98.42 Cataract extraction status, left eye; Z98.41 Cataract extraction status, right eye; Z90.49 Acquired absence of other specified parts of digestive tract; Z79.4 Long term (current) use of insulin
CPT/HCPCS: 36415; 71046; 78452; 80048; 80053; 81001; 83735; 84484; 85025; 85610; 85730; 87635; 93005; 93017; 94760; 96361; 96374; 99285

== ENCOUNTER 2021-03-04 20:33 | Inpatient (IN) | payer OTHER ==
[2021-03-04] MEDS ORDERED: SODIUM CHLORIDE 0.9% 1,000 ML IV STA (20:55)
[2021-03-04] MEDS ORDERED: TOBRAMYCIN 0.3% OPHTH OINT 3.5 GM TUBE BOTH EYES STA (20:55)
[2021-03-04] MEDS ORDERED: SODIUM CHLORIDE 0.9% 500 ML 500 ML IV STA (20:55)
[2021-03-04] MEDS ORDERED: ONDANSETRON 4 MG/2 ML VIAL IVP STA (20:55)
[2021-03-04 20:57] LABS: Glucose,Whole Blood 478 mg/dL (75-99)
[2021-03-04] MEDS ORDERED: TRIMETHOBENZAMIDE 100 MG/ML 2 ML VIAL IM STA (20:57)
--- NOTE | 2021-03-04 21:04 | ED ---
General Adult HPI - General Source: patient Mode of arrival: wheelchair <Radha Mcdaniel - Last Filed: 03/05/21 00:21> <Shaun Malave - Last Filed: 03/08/21 06:52> - General Chief complaint: Nausea/Vomiting/Diarrhea Stated complaint: Vision Problems,Vomiting, Diarrhea Time Seen by Provider: 03/04/21 20:46 - History of Present Illness Initial comments: 51 year-old male patient presents for evaluation for multiple complaints. He reports vomiting, cough, shortness of breath, and blurred vision. Patient has history of COPD, uncontrolled diabetes, chronic kidney disease, and CHF. Patient does not check his blood sugar but states he has been taking his insulin. Reports increasing cough over the last week. Denies sputum production. States he has had worsening blurred vision over the last week as well. Denies any head injury. Denies fever or chills. Denies any chest pain. Denies increase in swelling to the lower extremities. Family member reports wounds all over his body, states he scratches them open, and they heal slowly. He also has had eye drainage, redness, and swelling. Patient denies any recent rash, abdominal pain, diarrhea, constipation, back pain, numbness, tingling, dizziness, weakness, hematuria, dysuria, urinary urgency, urinary frequency, or any other complaints. (Radha Mcdaniel) - Related Data Home Medications Medication Instructions Recorded Confirmed DULoxetine HCL [Cymbalta] 60 mg PO DAILY 04/01/20 03/05/21 Acetaminophen Tab [Tylenol] 650 mg PO Q4H PRN 07/25/20 03/05/21 Albuterol Sulfate [Proair Hfa] 2 puff INHALATION RT-Q6H PRN 07/25/20 03/05/21 Semaglutide [Ozempic] 1 mg SQ MO 10/03/20 03/05/21 Fluticasone/Salmeterol [Advair 1 puff INHALATION RT-BID 12/16/20 03/05/21 250-50 Diskus] Nitroglycerin Sl Tabs [Nitrostat] 0.4 mg SL Q5M PRN 12/16/20 03/05/21 Ondansetron [Zofran] 4 mg PO TID PRN 12/16/20 03/05/21 INSULIN ASPART (NovoLOG) [NovoLOG See Protocol SQ ACHS 01/04/21 03/05/21 (formulary)] Furosemide [Lasix] 40 mg PO BID PRN 03/05/21 03/05/21 Gabapentin 800 mg PO TID 03/05/21 03/05/21 traZODone HCL [Desyrel] 100 mg PO HS PRN 03/05/21 03/05/21 Previous Rx's Medication Instructions Recorded Omeprazole [PriLOSEC] 40 mg PO LUPILLO-ROSETTE #14 capsule. 11/04/19 Atorvastatin [Lipitor] 40 mg PO DAILY #30 tab 10/13/20 Metoprolol Tartrate [Lopressor] 50 mg PO BID 30 Days #60 tab 01/14/21 Aspirin 81 mg PO DAILY #30 chewable 01/18/21 amLODIPine [Norvasc] 10 mg PO DAILY #30 tab 01/18/21 Fludrocortisone [Florinef] 0.1 mg PO BID #60 tab 02/11/21 Isosorbide Mononitrate ER [Imdur] 30 mg PO DAILY #30 tab.er.24h 02/11/21 Allergies Allergy/AdvReac Type Severity Reaction Status Date / Time No Known Allergies Allergy Verified 03/05/21 08:01 Review of Systems ROS Other: All systems not noted in ROS Statement are negative. <Radha Mcdaniel - Last Filed: 03/05/21 00:21> ROS Other: All systems not noted in ROS Statement are negative. <Shaun Maalve - Last Filed: 03/08/21 06:52> ROS Statement: Those systems with pertinent positive or pertinent negative responses have been documented in the HPI. Past Medical History Past Medical History: Heart Failure, Diabetes Mellitus, Hyperlipidemia, Hypertension Additional Past Medical History / Comment(s): IDDM type II, neuropathy bilateral feet, gout, bilateral eye catarct removal, MRSA . History of Any Multi-Drug Resistant Organisms: MRSA Date of last positivie culture/infection: 12/17/20 MDRO Source:: Right Leg Past Surgical History: Cholecystectomy Additional Past Surgical History / Comment(s): I&D scrotal abscess, I&D back abscess Past Anesthesia/Blood Transfusion Reactions: No Reported Reaction Past Psychological History: Anxiety Smoking Status: Former smoker Past Alcohol Use History: None Reported Past Drug Use History: None Reported - Past Family History Mother Family Medical History: Diabetes Mellitus Father History Unknown: Yes <VioletaGeoffreyRadha Rina - Last Filed: 03/05/21 00:21> General Exam General appearance: alert, in no apparent distress, other (This is a well-de veloped, well-nourished adult male patient in no acute distress. Vital signs upon presentation temperature 98.1F, pulse 92, respirations 17, blood pressure 191/92, pulse ox 90% on room air.) Eye exam: Present: PERRL, EOMI, periorbital swelling (Periorbital swelling and erythema), other (Green eye drainage with crusting over the lashes.). Absent: scleral icterus, conjunctival injection ENT exam: Present: normal exam, normal oropharynx, mucous membranes moist Respiratory exam: Present: rales (Posterior bilateral). Absent: normal lung sounds bilaterally, respiratory distress, wheezes, rhonchi, stridor Cardiovascular Exam: Present: regular rate, normal rhythm, gallop. Absent: normal heart sounds, systolic murmur, diastolic murmur, rubs, clicks GI/Abdominal exam: Present: soft, normal bowel sounds. Absent: distended, tenderness, guarding, rebound, rigid Neurological exam: Present: alert, oriented X3, CN II-XII intact Psychiatric exam: Present: normal affect, normal mood Skin exam: Present: warm, dry, intact, normal color. Absent: rash <Radha Mcdaniel M - Last Filed: 03/05/21 00:21> Course <Radha Mcdaniel Rina - Last Filed: 03/05/21 00:21> Vital Signs 03/04/21 03/04/21 03/04/21 20:36 20:57 21:21 Temperature 98.1 F Pulse Rate 92 70 Respiratory 17 18 Rate Blood Pressure 191/92 168/95 O2 Sat by Pulse 90 L 90 L 97 Oximetry 03/04/21 03/04/21 03/04/21 22:18 22:20 22:38 Temperature Pulse Rate 93 Respiratory 22 Rate Blood Pressure 159/91 O2 Sat by Pulse 80 L 92 L 97 Oximetry 03/04/21 03/04/21 03/04/21 23:07 23:35 23:45 Temperature Pulse Rate 88 85 82 Respiratory 18 18 Rate Blood Pressure 194/99 168/81 O2 Sat by Pulse 100 96 95 Oximetry 03/05/21 03/05/21 03/05/21 00:58 01:30 02:38 Temperature Pulse Rate 87 86 Respiratory 18 22 Rate Blood Pressure 138/70 146/76 O2 Sat by Pulse 97 98 97 Oximetry 03/05/21 06:00 Temperature Pulse Rate 81 Respiratory 20 Rate Blood Pressure 145/76 O2 Sat by Pulse 100 Oximetry - Reevaluation(s) Reevaluation #1: 03/04/21 22:[address] Malave in to evaluate patient. Additional orders entered. (Radha Mcdaniel) EKG Findings - EKG Comments: EKG Findings:: EKG obtained at 2052 shows normal sinus rhythm with a prolonged QT interval. Ventricular rate is 91, AZ interval 170, QRS duration 100, QT 376, QTc 462. No evidence of ST elevation or depression. <Radha Mcdaniel - Last Filed: 03/05/21 00:21> Medical Decision Making - Lab Data Result diagrams: 03/04/21 20:59 03/04/21 20:59 - Radiology Data Radiology results: report reviewed, image reviewed <Radha Mcdaniel - Last Filed: 03/05/21 00:21> - Lab Data Result diagrams: 03/06/21 06:57 03/07/21 17:21 <Shaun Malave - Last Filed: 03/08/21 06:52> - Medical Decision Making 51 year-old male patient with multiple comorbidities including CHF, poorly controlled diabetes, and chronic renal failure presents to the emergency department for evaluation of vomiting, shortness of breath, and increased cough over the last week. Physical examination did reveal crackles in the posterior lung manzo. EKG showed sinus rhythm with a prolonged QT interval. Labs reviewed and did reveal elevated blood sugar, elevated BNP at 15,800, normal potassium level. Elevated lipase 600. Please BUN and creatinine. Chest x-ray showed evidence for pulmonary edema consistent with CHF. Oxygen saturation dropped to 70s on room air. We did start BiPap applied nitropaste, gave sublingual nitro, IV lasix, and a slow infusion of normal saline. He will be admitted to the hospital for further evaluation by nephrology and cardiology. Patient and family are agreeable with this plan. Case discussed in detail with my attending Dr. Malave who was also able to evaluate the patient. (Radha Mcdaniel) I saw this patient in conjunction with the physician assistant professor of biology. I performed independent history and physical exam. Agree with case management. (Shaun Malave) - Lab Data Lab Results 03/04/21 03/04/21 03/04/21 Range/Units 20:55 20:59 20:59 WBC 8.4 (3.8-10.6) k/uL RBC 3.44 L (4.30-5.90) m/uL Hgb 9.8 L D (13.0-17.5) gm/dL Hct 28.9 L (39.0-53.0) % MCV 84.0 (80.0-100.0) fL MCH 28.5 (25.0-35.0) pg MCHC 33.9 (31.0-37.0) g/dL RDW 15.1 (11.5-15.5) % Plt Count 301 (150-450) k/uL MPV 8.2 Neutrophils % 80 % Lymphocytes % 10 % Monocytes % 6 % Eosinophils % 3 % Basophils % 1 % Neutrophils # 6.7 (1.3-7.7) k/uL Lymphocytes # 0.8 L (1.0-4.8) k/uL Monocytes # 0.5 (0-1.0) k/uL Eosinophils # 0.2 (0-0.7) k/uL Basophils # 0.0 (0-0.2) k/uL Sodium 133 L (137-145) mmol/L Potassium 5.0 (3.5-5.1) mmol/L Chloride 99 (98-107) mmol/L Carbon Dioxide 26 (22-30) mmol/L Anion Gap 8 mmol/L BUN 89 H (9-20) mg/dL Creatinine 5.44 H (0.66-1.25) mg/dL Est GFR (CKD-EPI)AfAm 13 (>60 ml/min/1.73 sqM) Est GFR (CKD-EPI)NonAf 11 (>60 ml/min/1.73 sqM) Glucose 465 H (74-99) mg/dL POC Glucose (mg/dL) 478 H (75-99) mg/dL POC Glu Cardiac Cath Rn ID Willing, Vicky Calcium 8.3 L (8.4-10.2) mg/dL Total Bilirubin 0.6 (0.2-1.3) mg/dL AST 18 (17-59) U/L ALT 15 (4-49) U/L Alkaline Phosphatase 311 H (38-126) U/L Troponin I (0.000-0.034) ng/mL NT-Pro-B Natriuret Pep pg/mL Total Protein 7.4 (6.3-8.2) g/dL Albumin 3.2 L (3.5-5.0) g/dL Lipase 614 H (23-300) U/L Acetone, Qual Negative (Negative) Coronavirus (PCR) (Not Detectd) 03/04/21 03/04/21 03/04/21 Range/Units 20:59 20:59 20:59 WBC (3.8-10.6) k/uL RBC (4.30-5.90) m/uL Hgb (13.0-17.5) gm/dL Hct (39.0-53.0) % MCV (80.0-100.0) fL MCH (25.0-35.0) pg MCHC (31.0-37.0) g/dL RDW (11.5-15.5) % Plt Count (150-450) k/uL MPV Neutrophils % % Lymphocytes % % Monocytes % % Eosinophils % % Basophils % % Neutrophils # (1.3-7.7) k/uL Lymphocytes # (1.0-4.8) k/uL Monocytes # (0-1.0) k/uL Eosinophils # (0-0.7) k/uL Basophils # (0-0.2) k/uL Sodium (137-145) mmol/L Potassium (3.5-5.1) mmol/L Chloride (98-107) mmol/L Carbon Dioxide (22-30) mmol/L Anion Gap mmol/L BUN (9-20) mg/dL Creatinine (0.66-1.25) mg/dL Est GFR (CKD-EPI)AfAm (>60 ml/min/1.73 sqM) Est GFR (CKD-EPI)NonAf (>60 ml/min/1.73 sqM) Glucose (74-99) mg/dL POC Glucose (mg/dL) (75-99) mg/dL POC Glu Cardiac Cath Rn ID Calcium (8.4-10.2) mg/dL Total Bilirubin (0.2-1.3) mg/dL AST (17-59) U/L ALT (4-49) U/L Alkaline Phosphatase (38-126) U/L Troponin I <0.012 (0.000-0.034) ng/mL NT-Pro-B Natriuret Pep 90370 pg/mL Total Protein (6.3-8.2) g/dL Albumin (3.5-5.0) g/dL Lipase (23-300) U/L Acetone, Qual (Negative) Coronavirus (PCR) Not Detected (Not Detectd) 03/04/21 Range/Units 23:53 WBC (3.8-10.6) k/uL RBC (4.30-5.90) m/uL Hgb (13.0-17.5) gm/dL Hct (39.0-53.0) % MCV (80.0-100.0) fL MCH (25.0-35.0) pg MCHC (31.0-37.0) g/dL RDW (11.5-15.5) % Plt Count (150-450) k/uL MPV Neutrophils % % Lymphocytes % % Monocytes % % Eosinophils % % Basophils % % Neutrophils # (1.3-7.7) k/uL Lymphocytes # (1.0-4.8) k/uL Monocytes # (0-1.0) k/uL Eosinophils # (0-0.7) k/uL Basophils # (0-0.2) k/uL Sodium (137-145) mmol/L Potassium (3.5-5.1) mmol/L Chloride (98-107) mmol/L Carbon Dioxide (22-30) mmol/L Anion Gap mmol/L BUN (9-20) mg/dL Creatinine (0.66-1.25) mg/dL Est GFR (CKD-EPI)AfAm (>60 ml/min/1.73 sqM) Est GFR (CKD-EPI)NonAf (>60 ml/min/1.73 sqM) Glucose (74-99) mg/dL POC Glucose (mg/dL) 341 H (75-99) mg/dL POC Glu Cardiac Cath Rn ID Esme Montalvo Calcium (8.4-10.2) mg/dL Total Bilirubin (0.2-1.3) mg/dL AST (17-59) U/L ALT (4-49) U/L Alkaline Phosphatase (38-126) U/L Troponin I (0.000-0.034) ng/mL NT-Pro-B Natriuret Pep pg/mL Total Protein (6.3-8.2) g/dL Albumin (3.5-5.0) g/dL Lipase (23-300) U/L Acetone, Qual (Negative) Coronavirus (PCR) (Not Detectd) - Radiology Data Two-view x-ray of the chest is obtained. Report is reviewed in its entirety. Impression by Dr. Mina shows imaging findings highly suggestive of cardiogenic heart failure, superimposed multifocal pneumonia cannot be entirely excluded. (Radha Mcdaniel) Critical Care Time Critical Care Time: Yes (30 minutes) <Shaun Malave - Last Filed: 03/08/21 06:52> Disposition Decision to Admit Reason: Admit from EC Decision Date: 03/05/21 Decision Time: 00:15 <Radha Mcdaniel - Last Filed: 03/05/21 00:21> <Shaun Malave - Last Filed: 03/08/21 06:52> Clinical Impression: CHF exacerbation, Hyperglycemia, Acute kidney injury Disposition: ADMITTED IP TO THIS [facility] Condition: Serious
[2021-03-04 21:26] LABS: Basophils % (A) 1 %; Eosinophils # (A) 0.2 k/uL (0-0.7); Eosinophils % (A) 3 %; HCT 28.9 % (39.0-53.0); HGB 9.8 gm/dL (13.0-17.5); Lymphocytes # (A) 0.8 k/uL (1.0-4.8); Lymphocytes % (A) 10 %; MCH 28.5 pg (25.0-35.0); MCHC 33.9 g/dL (31.0-37.0); Mean Platelet Volume 8.2; Monocytes # (A) 0.5 k/uL (0-1.0); Monocytes % (A) 6 %; Neutrophils # (A) 6.7 k/uL (1.3-7.7); Neutrophils % (A) 80 %; Platelet Count 301 k/uL (150-450); RBC 3.44 m/uL (4.30-5.90); RDW 15.1 % (11.5-15.5); WBC 8.4 k/uL (3.8-10.6)
[2021-03-04 21:37] LABS: ALT 15 U/L (4-49); AST 18 U/L (17-59); African American GFR (CKD) 13 (>60 ml/min/1.73 sqM); Albumin 3.2 g/dL (3.5-5.0); Alkaline Phosphatase 311 U/L (38-126); Anion Gap 8 mmol/L; Blood Urea Nitrogen 89 mg/dL (9-20); Calcium 8.3 mg/dL (8.4-10.2); Carbon Dioxide 26 mmol/L (22-30); Chloride 99 mmol/L (98-107); Glucose 465 mg/dL (74-99); Lipase 614 U/L (23-300); Non-African American GFR(CKD) 11 (>60 ml/min/1.73 sqM); Sodium 133 mmol/L (137-145); Total Bilirubin 0.6 mg/dL (0.2-1.3); Total Protein 7.4 g/dL (6.3-8.2)
--- NOTE | 2021-03-04 21:45 | XR ---
EXAMINATION TYPE: XR chest 2V DATE OF EXAM: 03/04/2021 COMPARISON: 02/08/2021 HISTORY: 51-year-old male with syncope TECHNIQUE: Frontal and lateral views of the chest are obtained. FINDINGS: There is pulmonary vascular congestion. There is no pneumothorax or pleural effusion. The mediastinal silhouette is within normal limit. No acute osseous abnormality. Degenerative changes are seen in the right shoulder joint. IMPRESSION: Imaging findings highly suggestive of cardiogenic heart failure, superimposed multifocal pneumonia ca nnot be entirely excluded.
[2021-03-04] MEDS ORDERED: INSULIN ASPART (NovoLOG) 100 UNIT/ML VIAL SQ STA (22:07)
[2021-03-04] MEDS ORDERED: NITROGLYCERIN OINT 1 INCH/GM PACKET TOPICAL STA (22:18)
[2021-03-04] MEDS ORDERED: FUROSEMIDE 10 MG/ML 4 ML VIAL IV STA (22:18)
[2021-03-04] MEDS ORDERED: NITROGLYCERIN SL TABS 0.4 MG TAB SUBLINGUAL STA (22:18)
[2021-03-04] MEDS ORDERED: MORPHINE SULFATE 2 MG/ML SYRINGE IVP STA (22:21)
[2021-03-04] MEDS ORDERED: hydrALAZINE HCL 20 MG/ML 1 ML VIAL IVP STA (23:43)
[2021-03-04 23:55] LABS: Glucose,Whole Blood 341 mg/dL (75-99)
[2021-03-05] MEDS ORDERED: MORPHINE SULFATE 4 MG/ML SYRINGE IV PRN (00:09)
[2021-03-05] MEDS ORDERED: NALOXONE 0.4 MG/ML 1 ML VIAL IV PRN (00:09)
[2021-03-05 03:06] LABS: Amorphous Sediment,Urine Rare /hpf; Appearance,Urine Cloudy (Clear); Bacteria,Urine Rare /hpf; Bilirubin,Urine Negative (Negative); Blood,Urine Moderate (Negative); Color,Urine Yellow; Glucose,Urine (UA) 4+ (Negative); Hyaline Casts,Urine 30 /lpf (0-2); Ketones,Urine Negative (Negative); Leukocyte Esterase,Urine Negative (Negative); Mucus,Urine Rare /hpf; Nitrite,Urine Negative (Negative); PH, Urine 5.5 (5.0-8.0); Protein,Urine 3+ (Negative); RBC,Urine 28 /hpf (0-5); Specific Gravity,Urine 1.012 (1.001-1.035); Squamous Epithelial Cell,Urine 1 /hpf (0-4); Urobilinogen,Urine <2.0 mg/dL (<2.0); WBC,Urine 6 /hpf (0-5)
[2021-03-05 08:42] LABS: Glucose,Whole Blood 228 mg/dL (75-99)
[2021-03-05] MEDS ORDERED: FUROSEMIDE 10 MG/ML 4 ML VIAL IV SCH (09:00)
[2021-03-05] MEDS ORDERED: ALBUTEROL NEBULIZED 2.5 MG/3 ML INHALATION PRN (09:22)
[2021-03-05] MEDS ORDERED: traZODone HCL 100 MG TAB PO PRN (09:22)
[2021-03-05] MEDS ORDERED: NITROGLYCERIN SL TABS 0.4 MG TAB SUBLINGUAL PRN (09:22)
--- NOTE | 2021-03-05 10:34 | P.HPIM ---
History of Present Illness 51-year-old male with multiple chronic medical problems came in with the blurry vision which started about a week ago. Patient is found to have uncontrolled blood sugars. Patient does have history of congestive heart failure chronic diastolic dysfunction was comparing of shortness of breath unable to get clear history of orthopnea paroxysmal nocturnal dyspnea it's very hard to get history from the patient. Patient the visual problem his blurriness in both eyes. Patient denied any fever chills denied any significant cough. Patient is on 0.1 mg twice a day of hydrocortisone for autonomic dysfunction as per the previous documentation in this autonomic dysfunction was believed to be secondary to diabetes mellitus. Patient does have chronic kidney disease stage IV with baseline creatinine of around 2.8 and present creatinine is around 5. Patient has multiple chronic ulcerations of bilateral lower extremities which are presently in healing stages, none of them appear to be infected. Patient has some hypervolemic hyponatremia as well. Chest x-ray did show pulmonary edema and patient's BNP is highly elevated REVIEW OF SYSTEMS: CONSTITUTIONAL: No fever, no malaise, no fatigue. HEENT: No recent hearing problems. Denied any sore throat. CARDIOVASCULAR: No chest pain,no palpitations, no syncope. PULMONARY:no hemoptysis. GASTROINTESTINAL: No diarrhea, no nausea, no vomiting, no abdominal pain. NEUROLOGICAL: No headaches, no weakness, no numbness. HEMATOLOGICAL: Denies any bleeding or petechiae. GENITOURINARY: Denies any burning micturition, frequency, or urgency. MUSCULOSKELETAL/RHEUMATOLOGICAL: Denies any joint pain, swelling, or any muscle pain. ENDOCRINE: Denies any polyuria or polydipsia. The rest of the 14-point review of systems is negative. PHYSICAL EXAMINATION: GENERAL: The patient is alert and oriented x3, not in any acute distress. Well developed, well nourished. HEENT: Pupils are round and equally reacting to light. EOMI, patient has significant blurriness of vision in both eyes. No scleral icterus. No conjunctival pallor. Normocephalic, atraumatic. No pharyngeal erythema. No thyromegaly. CARDIOVASCULAR: S1 and S2 present. No murmurs, rubs, or gallops. PULMONARY: Chest is clear to auscultation, no wheezing or crackles. ABDOMEN: Soft, nontender, nondistended, normoactive bowel sounds. No palpable organomegaly. MUSCULOSKELETAL: No joint swelling or deformity. EXTREMITIES: No cyanosis, clubbing, or pedal edema. NEUROLOGICAL: Gross neurological examination did not reveal any focal deficits. SKIN: Multiple stage I and stage II ulcerations in bilateral lower extremity chest in healing stages Assessment and plan -Blurry vision probably secondary to hyperglycemia, we'll see for a his vision improves with the controlling the blood sugars continue with his home regimen of ozempic along with sliding scale insulin -Volume overload possibly congestive heart failure chronic diastolic dysfunction with acute exacerbation the exacerbation is secondary to fludrocortisone will cut down the dose of fludrocortisone, patient will be started on Lasix 80 mg IV twice a day -Chronic kidney disease stage IV: Secondary to diabetic nephropathy -Acute renal failure: Prerenal azotemia probably secondary to congestive heart f ailure or volume overload IV Lasix as mentioned above -Autonomic dysfunction for which patient is on fludrocortisone may not be much beneficial probably we'll wean this medication. -Type 2 diabetes mellitus uncontrolled elevated blood sugars: Patient will be continued on his home regimen along with sliding scale insulin and titration of this insulin depending on his blood sugars. -Multiple bilateral lower extremity ulcers in healing stages secondary to diabetic peripheral neuropathy -Congestive heart failure chronic diastolic dysfunction with acute exacerbation Secondary pulmonary hypertension due to CHF -COPD without any acute exacerbation quit smoking years ago DVT prophylaxis: Subcutaneous heparin Past Medical History Past Medical History: Heart Failure, Diabetes Mellitus, Hyperlipidemia, Hypertension Additional Past Medical History / Comment(s): IDDM type II, neuropathy bilateral feet, gout, bilateral eye catarct removal, MRSA . History of Any Multi-Drug Resistant Organisms: MRSA Date of last positivie culture/infection: 12/17/20 MDRO Source:: Right Leg Past Surgical History: Cholecystectomy Additional Past Surgical History / Comment(s): I&D scrotal abscess, I&D back abscess Past Anesthesia/Blood Transfusion Reactions: No Reported Reaction Past Psychological History: Anxiety Smoking Status: Former smoker Past Alcohol Use History: None Reported Past Drug Use History: None Reported - Past Family History Mother Family Medical History: Diabetes Mellitus Father History Unknown: Yes Medications and Allergies Home Medications Medication Instructions Recorded Confirmed Type Omeprazole [PriLOSEC] 40 mg PO LUPILLO-BRKFST #14 amparo. 11/04/19 03/05/21 Rx DULoxetine HCL [Cymbalta] 60 mg PO DAILY 04/01/20 03/05/21 History Acetaminophen Tab [Tylenol] 650 mg PO Q4H PRN 07/25/20 03/05/21 History Albuterol Sulfate [Proair Hfa] 2 puff INHALATION RT-Q6H PRN 07/25/20 03/05/21 History Semaglutide [Ozempic] 1 mg SQ MO 10/03/20 03/05/21 History Atorvastatin [Lipitor] 40 mg PO DAILY #30 tab 10/13/20 03/05/21 Rx Fluticasone/Salmeterol [Advair 1 puff INHALATION RT-BID 12/16/20 03/05/21 History 250-50 Diskus] Nitroglycerin Sl Tabs [Nitrostat] 0.4 mg SL Q5M PRN 12/16/20 03/05/21 History Ondansetron [Zofran] 4 mg PO TID PRN 12/16/20 03/05/21 History INSULIN ASPART (NovoLOG) [NovoLOG See Protocol SQ ACHS 01/04/21 03/05/21 History (formulary)] Metoprolol Tartrate [Lopressor] 50 mg PO BID 30 Days #60 tab 01/14/21 03/05/21 Rx Aspirin 81 mg PO DAILY #30 chewable 01/18/21 03/05/21 Rx amLODIPine [Norvasc] 10 mg PO DAILY #30 tab 01/18/21 03/05/21 Rx Fludrocortisone [Florinef] 0.1 mg PO BID #60 tab 02/11/21 03/05/21 Rx Isosorbide Mononitrate ER [Imdur] 30 mg PO DAILY #30 tab.er.24h 02/11/21 03/05/21 Rx Furosemide [Lasix] 40 mg PO BID PRN 03/05/21 03/05/21 History Gabapentin 800 mg PO TID 03/05/21 03/05/21 History traZODone HCL [Desyrel] 100 mg PO HS PRN 03/05/21 03/05/21 History Allergies Allergy/AdvReac Type Severity Reaction Status Date / Time No Known Allergies Allergy Verified 03/05/21 08:01 Physical Exam Vitals: Vital Signs Temp Pulse Resp BP Pulse Ox 03/05/21 06:00 81 20 145/76 100 03/05/21 02:38 86 22 146/76 97 03/05/21 01:30 98 03/05/21 00:58 87 18 138/70 97 03/04/21 23:45 82 18 168/81 95 03/04/21 23:35 85 96 03/04/21 23:07 88 18 194/99 100 03/04/21 22:38 93 22 159/91 97 03/04/21 22:20 92 L 03/04/21 22:18 80 L 03/04/21 21:21 70 18 168/95 97 03/04/21 20:57 90 L 03/04/21 20:36 98.1 F 92 17 191/92 90 L Intake and Output 03/04/21 03/05/21 03/05/21 22:59 06:59 14:59 Intake Total 0 Balance 0 Intake: Oral 0 Other: # Voids 1 Weight 77.111 kg Results CBC & Chem 7: 03/04/21 20:59 03/04/21 20:59 Labs: Abnormal Lab Results - Last 24 Hours (Table) 03/04/21 03/04/21 03/04/21 Range/Units 20:55 20:59 20:59 RBC 3.44 L (4.30-5.90) m/uL Hgb 9.8 L D (13.0-17.5) gm/dL Hct 28.9 L (39.0-53.0) % Lymphocytes # 0.8 L (1.0-4.8) k/uL Sodium 133 L (137-145) mmol/L BUN 89 H (9-20) mg/dL Creatinine 5.44 H (0.66-1.25) mg/dL Glucose 465 H (74-99) mg/dL POC Glucose (mg/dL) 478 H (75-99) mg/dL Calcium 8.3 L (8.4-10.2) mg/dL Alkaline Phosphatase 311 H (38-126) U/L Albumin 3.2 L (3.5-5.0) g/dL Lipase 614 H (23-300) U/L Urine Protein (Negative) Urine Glucose (UA) (Negative) Urine Blood (Negative) Urine RBC (0-5) /hpf Urine WBC (0-5) /hpf Amorphous Sediment (None) /hpf Urine Bacteria (None) /hpf Hyaline Casts (0-2) /lpf Urine Mucus (None) /hpf 03/04/21 03/05/21 03/05/21 Range/Units 23:53 02:38 08:40 RBC (4.30-5.90) m/uL Hgb (13.0-17.5) gm/dL Hct (39.0-53.0) % Lymphocytes # (1.0-4.8) k/uL Sodium (137-145) mmol/L BUN (9-20) mg/dL Creatinine (0.66-1.25) mg/dL Glucose (74-99) mg/dL POC Glucose (mg/dL) 341 H 228 H (75-99) mg/dL Calcium (8.4-10.2) mg/dL Alkaline Phosphatase (38-126) U/L Albumin (3.5-5.0) g/dL Lipase (23-300) U/L Urine Protein 3+ H (Negative) Urine Glucose (UA) 4+ H (Negative) Urine Blood Moderate H (Negative) Urine RBC 28 H (0-5) /hpf Urine WBC 6 H (0-5) /hpf Amorphous Sediment Rare H (None) /hpf Urine Bacteria Rare H (None) /hpf Hyaline Casts 30 H (0-2) /lpf Urine Mucus Rare H (None) /hpf
--- NOTE | 2021-03-05 11:33 | P.CRDCN ---
History of Present Illness Consult date: 03/05/21 History of present illness: HISTORY OF PRESENT ILLNESS: This is a 51-year-old male with a past medical history significant for diabetes mellitus, hypertension, hyperlipidemia, former nicotine dependence, bilateral neuropathy, chronic kidney disease and chronic diastolic heart failure. Patient follows in the office with Dr. Dickson. We have been asked to see the patient in consultation for congestive heart failure. Patient examined at the bedside. Patient presented to the hospital with multiple complaints including shortness of breath and blurry vision. Patient was found to be in acute CHF. He was started on IV Lasix. EKG reveals sinus mechanism with no signs of acute ischemia Chest xray imaging findings have suggestive of cardiogenic heart failure, superimposed multi focal pneumonia cannot be entirely excluded. Laboratory data: WBC 8.4. Hemoglobin 9.8. Platelet count 301. Sodium 133. Potassium 5.0. BUN 89. Creatinine 5.44. Glucose 465. Troponin negative 2. BNP 15,800. Current home cardiac medications include Norvasc 10 mg daily, metoprolol tartrate 50 mg twice a day, Imdur 39 g daily, Lasix 40 mg twice a day Florinef 0.1 mg twice a day, Lipitor 40 mg daily, aspirin 81 mg daily Most recent echocardiogram obtained in January 2021 revealed ejection fraction 55- 60%, [id number] aortic regurgitation, mild mitral regurgitation, mild tricuspid regurgitation Patient underwent stress test in February 2021 revealing a fixed defect along the inferior wall could represent diaphragmatic attenuation artifact versus old inferior wall infarct. Subtle small area of reversibility along the mid anterior wall. Patient did not have any troponin elevation or EKG abnormalities and given his chronic kidney disease, medical management was recommended. REVIEW OF SYSTEMS: At the time of my exam: CONSTITUTIONAL: Denies fever or chills. HEENT: Denies blurred vision, vision changes, or eye pain. Denies hemoptysis CARDIOVASCULAR: Denies chest pain. Denies orthopnea. Denies PND. Denies palpitations RESPIRATORY: Denies shortness of breath. GASTROINTESTINAL: Denies abdominal pain. Denies nausea or vomiting. HEMATOLOGIC: Denies bleeding disorders. GENITOURINARY: Denies any blood in urine. SKIN: Denies pruitis. Denies rash. PHYSICAL EXAM: VITAL SIGNS: Reviewed. GENERAL: Well-developed in no acute distress. HEENT: Head is normocephalic. Pupils are equal, round. Sclerae anicteric. Mucous membranes of the mouth are moist. Neck supple. No JVD or thyromegaly LUNGS: Respirations even and unlabored. Lungs diminished bilaterally. HEART: Regular rate and rhythm. S1 and S2 heard. ABDOMEN: Soft. Nondistended. Nontender. EXTREMITIES: Normal range of motion. No clubbing or cyanosis. Peripheral pulses intact. Bilateral lower extremity edema NEUROLOGIC: Awake and alert. Oriented x 3. ASSESSMENT: Acute exacerbation of chronic diastolic heart failure Hypertension Hyperlipidemia Diabetes mellitus, uncontrolled Chronic kidney disease Dysautonomia Former nicotine dependence PLAN: No need to repeat echocardiogram as this was performed in January 2021 Resume home cardiac medications Continue IV Lasix Monitor kidney function Daily weights Accurate I&O Further recommendations pending patient's course Nurse practitioner note has been reviewed by physician. Signing provider agrees with the documented findings, assessment, and plan of care. Past Medical History Past Medical History: Heart Failure, Diabetes Mellitus, Hyperlipidemia, Hypertension Additional Past Medical History / Comment(s): IDDM type II, neuropathy bilateral feet, gout, bilateral eye catarct removal, MRSA . History of Any Multi-Drug Resistant Organisms: MRSA Date of last positivie culture/infection: 12/17/20 MDRO Source:: Right Leg Past Surgical History: Cholecystectomy Additional Past Surgical History / Comment(s): I&D scrotal abscess, I&D back abscess Past Anesthesia/Blood Transfusion Reactions: No Reported Reaction Past Psychological History: Anxiety Smoking Status: Former smoker Past Alcohol Use History: None Reported Past Drug Use History: None Reported - Past Family History Mother Family Medical History: Diabetes Mellitus Father History Unknown: Yes Medications and Allergies Home Medications Medication Instructions Recorded Confirmed Type Omeprazole [PriLOSEC] 40 mg PO AC-BRKFST #14 capsule. 11/04/19 03/05/21 Rx DULoxetine HCL [Cymbalta] 60 mg PO DAILY 04/01/20 03/05/21 History Acetaminophen Tab [Tylenol] 650 mg PO Q4H PRN 07/25/20 03/05/21 History Albuterol Sulfate [Proair Hfa] 2 puff INHALATION RT-Q6H PRN 07/25/20 03/05/21 History Semaglutide [Ozempic] 1 mg SQ MO 10/03/20 03/05/21 History Atorvastatin [Lipitor] 40 mg PO DAILY #30 tab 10/13/20 03/05/21 Rx Fluticasone/Salmeterol [Advair 1 puff INHALATION RT-BID 12/16/20 03/05/21 Histor y 250-50 Diskus] Nitroglycerin Sl Tabs [Nitrostat] 0.4 mg SL Q5M PRN 12/16/20 03/05/21 History Ondansetron [Zofran] 4 mg PO TID PRN 12/16/20 03/05/21 History INSULIN ASPART (NovoLOG) [NovoLOG See Protocol SQ ACHS 01/04/21 03/05/21 History (formulary)] Metoprolol Tartrate [Lopressor] 50 mg PO BID 30 Days #60 tab 01/14/21 03/05/21 Rx Aspirin 81 mg PO DAILY #30 chewable 01/18/21 03/05/21 Rx amLODIPine [Norvasc] 10 mg PO DAILY #30 tab 01/18/21 03/05/21 Rx Fludrocortisone [Florinef] 0.1 mg PO BID #60 tab 02/11/21 03/05/21 Rx Isosorbide Mononitrate ER [Imdur] 30 mg PO DAILY #30 tab.er.24h 02/11/21 03/05/21 Rx Furosemide [Lasix] 40 mg PO BID PRN 03/05/21 03/05/21 History Gabapentin 800 mg PO TID 03/05/21 03/05/21 History traZODone HCL [Desyrel] 100 mg PO HS PRN 03/05/21 03/05/21 History Allergies Allergy/AdvReac Type Severity Reaction Status Date / Time No Known Allergies Allergy Verified 03/05/21 08:01 Physical Exam Vitals: Vital Signs Temp Pulse Resp BP Pulse Ox 03/05/21 06:00 81 20 145/76 100 03/05/21 02:38 86 22 146/76 97 03/05/21 01:30 98 03/05/21 00:58 87 18 138/70 97 03/04/21 23:45 82 18 168/81 95 03/04/21 23:35 85 96 03/04/21 23:07 88 18 194/99 100 03/04/21 22:38 93 22 159/91 97 03/04/21 22:20 92 L 03/04/21 22:18 80 L 03/04/21 21:21 70 18 168/95 97 03/04/21 20:57 90 L 03/04/21 20:36 98.1 F 92 17 191/92 90 L Intake and Output 03/04/21 03/05/21 03/05/21 22:59 06:59 14:59 Intake Total 0 Balance 0 Intake: Oral 0 Other: # Voids 1 Weight 77.111 kg Results 03/04/21 20:59 03/04/21 20:59 Cardiac Enzymes 03/04/21 03/04/21 03/05/21 Range/Units 20:59 20:59 03:36 AST 18 (17-59) U/L Troponin I <0.012 <0.012 (0.000-0.034) ng/mL 03/05/21 Range/Units 09:25 AST (17-59) U/L Troponin I <0.012 (0.000-0.034) ng/mL CBC 03/04/21 Range/Units 20:59 WBC 8.4 (3.8-10.6) k/uL RBC 3.44 L (4.30-5.90) m/uL Hgb 9.8 L D (13.0-17.5) gm/dL Hct 28.9 L (39.0-53.0) % Plt Count 301 (150-450) k/uL Comprehensive Metabolic Panel 03/04/21 Range/Units 20:59 Sodium 133 L (137-145) mmol/L Potassium 5.0 (3.5-5.1) mmol/L Chloride 99 (98-107) mmol/L Carbon Dioxide 26 (22-30) mmol/L BUN 89 H (9-20) mg/dL Creatinine 5.44 H (0.66-1.25) mg/dL Glucose 465 H (74-99) mg/dL Calcium 8.3 L (8.4-10.2) mg/dL AST 18 (17-59) U/L ALT 15 (4-49) U/L Alkaline Phosphatase 311 H (38-126) U/L Total Protein 7.4 (6.3-8.2) g/dL Albumin 3.2 L (3.5-5.0) g/dL Current Medications Generic Name Dose Route Start Last Admin Trade Name Freq PRN Reason Stop Dose Admin Acetaminophen 650 mg 03/05/21 09:22 Acetaminophen Tab 325 Mg Tab PO Q4H PRN Mild Pain or Fever > 100.5 Albuterol Sulfate 2.5 mg 03/05/21 09:22 Albuterol Nebulized 2.5 Mg/3 Ml INHALATION RT-Q6H PRN Shortness Of Breath Aspirin 81 mg 03/06/21 09:00 Aspirin 81 Mg PO DAILY [facility] Atorvastatin Calcium 40 mg 03/06/21 09:00 Atorvastatin 40 Mg Tab PO DAILY [facility] Budesonide/Formoterol Fumarate 2 puff 03/05/21 20:00 Symbicort 80-4.5 Mcg Inhaler INHALATION RT-BID [facility] Duloxetine HCl 60 mg 03/06/21 09:00 Duloxetine Hcl 60 Mg Capsule.Dr PO DAILY [facility] Furosemide 80 mg 03/05/21 21:00 Furosemide 10 Mg/Ml 10 Ml Vial IV Q12HR [facility] Heparin Sodium (Porcine) 5,000 unit 03/05/21 16:00 Heparin Sodium,Porcine/Pf 5,000 Unit/0.5 Ml Syringe SQ Q8HR [facility] Insulin Aspart 0 unit 03/05/21 07:30 Insulin Aspart (Novolog) 100 Unit/Ml Vial SQ ACHS [facility] Protocol Isosorbide Mononitrate 30 mg 03/06/21 09:00 Isosorbide Mononitrate Er 30 Mg Tab.Er.24h PO DAILY [facility] Metoprolol Tartrate 50 mg 03/05/21 09:30 Metoprolol Tartrate 50 Mg Tab PO BID [facility] Morphine Sulfate 4 mg 03/05/21 00:09 Morphine Sulfate 4 Mg/Ml Syringe IV Q4HR PRN Severe Pain Naloxone HCl 0.2 mg 03/05/21 00:09 Naloxone 0.4 Mg/Ml 1 Ml Vial IV Q2M PRN Opioid Reversal Nitroglycerin 0.4 mg 03/05/21 09:22 Nitroglycerin Sl Tabs 0.4 Mg Tab SUBLINGUAL Q5M PRN Chest Pain Semaglutide [Ozempic 1 mg 03/08/21 09:00 ] 1 Mg/0.75 Ml Pen. SQ Injctr MO [facility] Ondansetron HCl 4 mg 03/05/21 00:09 Ondansetron 4 Mg/2 Ml Vial IVP Q8HR PRN Nausea And Vomiting Ondansetron HCl 4 mg 03/05/21 09:22 Ondansetron 4 Mg Tab PO TID PRN Nausea Pantoprazole Sodium 40 mg 03/06/21 07:30 Pantoprazole 40 Mg Tablet PO AC-BRKFST [facility] Tobramycin 1 applic 03/05/21 09:00 Tobramycin 0.3% Ophth Oint 3.5 Gm Tube BOTH EYES QID [facility] Trazodone HCl 100 mg 03/05/21 09:22 Trazodone Hcl 100 Mg Tab PO HS PRN Insomnia Intake and Output 03/04/21 03/05/21 03/05/21 22:59 06:59 14:59 Intake Total 0 Balance 0 Intake: Oral 0 Other: # Voids 1 Weight 77.111 kg 03/04/21 20:59 03/04/21 20:59
[2021-03-05 11:38] LABS: Glucose,Whole Blood 291 mg/dL (75-99)
--- NOTE | 2021-03-05 12:17 | CONS ---
CONSULTATION REASON FOR CONSULT: Renal failure. HISTORY OF PRESENT ILLNESS: The patient is a 51-year-old male with history of chronic kidney disease NKF stage IV secondary to diabetic kidney disease. Baseline creatinine around 2 mg/dL. He was admitted to the hospital with complaints of vomiting, cough. He also had some blurred vision. He denied significant swelling in the lower extremities. The patient states that he had been taking his diuretics as prescribed. He had fair urine output. The patient is maintained on loop diuretics at home which I do not see on his medication list currently. His serum creatinine was at 5.4 mg/dL today. Previous creatinine was 2.3 on 02/10/2021. The blood pressure is not low. Systolic around 140-160 mmHg. Urine output currently not charted. Chest x-ray shows bilateral pulmonary infiltrates suggestive of CHF. PAST MEDICAL HISTORY: Significant for chronic kidney disease, history of acute interstitial nephritis, type 2 diabetes, hyperlipidemia, hypertension, neuropathy, gout, volume overload, diastolic heart failure, MRSA infection in the leg. PAST SURGICAL HISTORY: Scrotal abscess I&D and I&D of other abscesses on the legs, cholecystectomy. SOCIAL HISTORY: Negative for current smoking. Patient is a former smoker. No history of drug abuse or alcohol abuse. MEDICATIONS: Medications prior to admission included Cymbalta, Tylenol, ProAir, Ozempic, Nitrostat, Zofran, insulin, Prilosec, Lipitor, Desyrel, Neurontin, Lopressor, Norvasc, aspirin, Florinef, Imdur. ALLERGIES: None. REVIEW OF SYSTEMS: As per HPI. Other systems negative. EXAMINATION: Patient is comfortable, awake, not in any acute distress. Blood pressure is 145/76, heart rate 81 per minute, he is afebrile. Examination of the heart S1, S2. Examination of lungs, decreased breath sounds at bases, minimal basal crackles heard. Abdomen is soft, nontender. Examination of lower extremities shows no significant edema. Multiple ulcers and scabs noted on the lower extremities from previous skin abscesses and cellulitis. [employer] exam grossly intact. LAB: Show sodium of 133, potassium 5.0, chloride 99, BUN 89, CO2 26, creatinine 5.4, glucose 465. UA shows 3+ protein, glucose 4+. Hemoglobin 9.8 g/dL. ASSESSMENT: 1. Acute kidney injury, rule out obstructive uropathy. Check accurate I's and O's. The patient had history of nausea and vomiting. However, chest x-ray suggests congestive heart failure. He is maintained on IV Lasix which I will continue at the same dose for now. We will repeat his labs in a.m. and check ultrasound of the kidneys. 2. Chronic kidney disease, stage 4. Baseline creatinine about 2-2.3 mg/dL. Etiology diabetic kidney disease. 3. History of acute kidney injury secondary to acute interstitial nephritis about 2-3 months ago. 4. Type 2 diabetes currently uncontrolled. PLAN: Continue with IV Lasix. HUGO Sequeira. Repeat labs in a.m. Check ultrasound to rule out urine retention. The patient may need dialysis if his renal function does not improve. His nausea and vomiting could possibly be related to underlying uremia. Thank you for this consultation. Will continue to follow the patient with you during his hospitalization. MMODL / IJN: [id number] /
--- NOTE | 2021-03-05 12:20 | US ---
EXAMINATION TYPE: US kidneys/renal and bladder DATE OF EXAM: 03/05/2021 COMPARISON: NONE CLINICAL HISTORY: RF. renal failure EXAM MEASUREMENTS: Right Kidney: 11.6 x 5.7 x 5.2 cm Left Kidney: 11.6 x 5.1 x 4.6 cm Right Kidney: No hydronephrosis or masses seen Left Kidney: No hydronephrosis or masses seen Bladder: Anechoic wall measures 6 mm Bilateral Jets seen: No left only There is no evidence for hydronephrosis at this point in time. No nephrolithiasis is seen. No sandy s are identified. The urinary bladder is anechoic. IMPRESSION: No distinct abnormality seen.
[2021-03-05] MEDS: INSULIN ASPART (NovoLOG) 100 UNIT/ML VIAL SQ SCH ×4 (13:28→21:37)
[2021-03-05] MEDS: TOBRAMYCIN 0.3% OPHTH OINT 3.5 GM TUBE BOTH EYES SCH ×4 (14:10→21:38)
[2021-03-05] MEDS: METOPROLOL TARTRATE 50 MG TAB PO SCH ×2 (14:10→21:37)
[2021-03-05 16:42] LABS: Glucose,Whole Blood 308 mg/dL (75-99)
[2021-03-05] MEDS: HEPARIN SODIUM,PORCINE/PF 5,000 UNIT/0.5 ML SYRINGE SQ SCH (17:40)
[2021-03-05] MEDS: SYMBICORT 80-4.5 MCG INHALER INHALATION SCH (20:02)
[2021-03-05 20:23] LABS: Glucose,Whole Blood 244 mg/dL (75-99)
[2021-03-05] MEDS: FUROSEMIDE 10 MG/ML 10 ML VIAL IV SCH (21:36)
[2021-03-06] MEDS: HEPARIN SODIUM,PORCINE/PF 5,000 UNIT/0.5 ML SYRINGE SQ SCH ×4 (00:22→23:12)
[2021-03-06 06:18] LABS: Glucose,Whole Blood 256 mg/dL (75-99)
[2021-03-06] MEDS: PANTOPRAZOLE 40 MG TABLET PO SCH (06:35)
[2021-03-06] MEDS: INSULIN ASPART (NovoLOG) 100 UNIT/ML VIAL SQ SCH ×4 (06:37→21:08)
[2021-03-06 07:40] LABS: Basophils # (A) 0.1 k/uL (0-0.2); Basophils % (A) 1 %; Eosinophils # (A) 0.2 k/uL (0-0.7); Eosinophils % (A) 4 %; HCT 26.2 % (39.0-53.0); HGB 8.9 gm/dL (13.0-17.5); Lymphocytes % (A) 14 %; MCH 28.8 pg (25.0-35.0); MCHC 33.9 g/dL (31.0-37.0); MCV 84.8 fL (80.0-100.0); Mean Platelet Volume 8.2; Monocytes # (A) 0.5 k/uL (0-1.0); Monocytes % (A) 8 %; Neutrophils # (A) 4.9 k/uL (1.3-7.7); Neutrophils % (A) 72 %; Platelet Count 250 k/uL (150-450); RDW 15.6 % (11.5-15.5); WBC 6.8 k/uL (3.8-10.6)
[2021-03-06 07:51] LABS: Albumin 2.7 g/dL (3.5-5.0); Calcium 8.2 mg/dL (8.4-10.2); Potassium 5.3 mmol/L (3.5-5.1); Total Bilirubin 0.5 mg/dL (0.2-1.3); Total Protein 6.5 g/dL (6.3-8.2)
[2021-03-06] MEDS ORDERED: SODIUM POLYSTYRENE SULFONATE 15 GM/60 ML BOTTLE PO STA (08:09)
--- NOTE | 2021-03-06 08:20 | P.PN ---
Subjective 51-year-old male with multiple chronic medical problems came in with the blurry vision which started about a week ago. Patient is found to have uncontrolled blood sugars. Patient does have history of congestive heart failure chronic d iastolic dysfunction was comparing of shortness of breath unable to get clear history of orthopnea paroxysmal nocturnal dyspnea it's very hard to get history from the patient. Patient the visual problem his blurriness in both eyes. Patient denied any fever chills denied any significant cough. Patient is on 0.1 mg twice a day of hydrocortisone for autonomic dysfunction as per the previous documentation in this autonomic dysfunction was believed to be secondary to diabetes mellitus. Patient does have chronic kidney disease stage IV with baseline creatinine of around 2.8 and present creatinine is around 5. Patient has multiple chronic ulcerations of bilateral lower extremities which are pr esently in healing stages, none of them appear to be infected. Patient has some hypervolemic hyponatremia as well. Chest x-ray did show pulmonary edema and patient's BNP is highly elevated 03/06/2021 patient vision is getting better patient blood sugars are still high patient is a semiglutide. Patient the potassium is 5.3 will order Kayexalate. and 80 mg of IV Lasix patient the creatinine remains stable at 5.28 nephrology is a valid in the patient patient is an 80 mg twice a day of IV Lasix instead of which patient doesn't have any good urine output at this time. Because of continued elevation of blood sugars will add a long-acting insulin 12 units. Constitutional: Denied any fatigue denied any fever. Cardio vascular: denied any chest pain, palpitations Gastrointestinal denied any nausea vomiting Pulmonary: Denied any shortness of breath cough Neurologic denied any new focal deficits All inpatient medications were reviewed and appropriate changes in these medications as dictated in the interval history and assessment and plan. PHYSICAL EXAMINATION: GENERAL: The patient is alert and oriented x3, not in any acute distress. Well developed, well nourished. HEENT: Pupils are round and equally reacting to light. EOMI, blurriness is be tter now. No scleral icterus. No conjunctival pallor. Normocephalic, atraumatic. No pharyngeal erythema. No thyromegaly. CARDIOVASCULAR: S1 and S2 present. No murmurs, rubs, or gallops. PULMONARY: Chest is clear to auscultation, no wheezing or crackles. ABDOMEN: Soft, nontender, nondistended, normoactive bowel sounds. No palpable organomegaly. MUSCULOSKELETAL: No joint swelling or deformity. EXTREMITIES: No cyanosis, clubbing, or pedal edema. NEUROLOGICAL: Gross neurological examination did not reveal any focal deficits. SKIN: Multiple stage I and stage II ulcerations in bilateral lower extremity chest in healing stages Assessment and plan -Blurry vision probably secondary to hyperglycemia, improved with improvement of blood sugars continue with his home regimen of ozempic along with sliding scale insulin. Adding long-acting insulin -Volume overload possibly congestive heart failure chronic diastolic dysfunction with acute exacerbation the exacerbation is secondary to fludrocortisone , patient is presently on low-dose of fludrocortisone, patient will be started on Lasix 80 mg IV twice a day. No cigarette can urine output -Chronic kidney disease stage IV: Secondary to diabetic nephropathy -Acute renal failure: Prerenal azotemia probably secondary to congestive heart failure or volume overload IV Lasix as mentioned above -Autonomic dysfunction for which patient is on fludrocortisone may not be much beneficial probably we'll wean this medication. -Type 2 diabetes mellitus uncontrolled elevated blood sugars: Patient will be continued on his home regimen along with sliding scale insulin and titration of this insulin depending on his blood sugars. -Multiple bilateral lower extremity ulcers in healing stages secondary to diabetic peripheral neuropathy -Congestive heart failure chronic diastolic dysfunction with acute exacerbation Secondary pulmonary hypertension due to CHF -COPD without any acute exacerbation quit smoking years ago DVT prophylaxis: Subcutaneous heparin Objective - Vital Signs Vital signs: Vital Signs Temp 98.3 F 03/06/21 04:00 Pulse 69 03/06/21 04:00 Resp 16 03/06/21 04:00 BP 160/82 03/06/21 04:00 Pulse Ox 95 03/06/21 04:00 Intake & Output 03/05/21 03/06/21 03/06/21 18:59 06:59 18:59 Intake Total 720 Output Total 410 Balance 720 -410 Weight 77.111 kg 77.8 kg Intake: Oral 720 Output: Urine 410 Other: Voiding Method Urinal # Voids 2 # Bowel Movements 1 - Labs CBC & Chem 7: 03/06/21 06:57 03/06/21 06:57 Labs: Abnormal Lab Results - Last 24 Hours (Table) 03/05/21 03/05/21 03/05/21 Range/Units 08:40 11:36 16:41 RBC (4.30-5.90) m/uL Hgb (13.0-17.5) gm/dL Hct (39.0-53.0) % RDW (11.5-15.5) % Sodium (137-145) mmol/L Potassium (3.5-5.1) mmol/L BUN (9-20) mg/dL Creatinine (0.66-1.25) mg/dL Glucose (74-99) mg/dL POC Glucose (mg/dL) 228 H 291 H 308 H (75-99) mg/dL Calcium (8.4-10.2) mg/dL Alkaline Phosphatase (38-126) U/L Albumin (3.5-5.0) g/dL 03/05/21 03/06/21 03/06/21 Range/Units 20:22 06:17 06:57 RBC 3.10 L (4.30-5.90) m/uL Hgb 8.9 L (13.0-17.5) gm/dL Hct 26.2 L (39.0-53.0) % RDW 15.6 H (11.5-15.5) % Sodium (137-145) mmol/L Potassium (3.5-5.1) mmol/L BUN (9-20) mg/dL Creatinine (0.66-1.25) mg/dL Glucose (74-99) mg/dL POC Glucose (mg/dL) 244 H 256 H (75-99) mg/dL Calcium (8.4-10.2) mg/dL Alkaline Phosphatase (38-126) U/L Albumin (3.5-5.0) g/dL 03/06/21 Range/Units 06:57 RBC (4.30-5.90) m/uL Hgb (13.0-17.5) gm/dL Hct (39.0-53.0) % RDW (11.5-15.5) % Sodium 134 L (137-145) mmol/L Potassium 5.3 H (3.5-5.1) mmol/L BUN 97 H (9-20) mg/dL Creatinine 5.26 H (0.66-1.25) mg/dL Glucose 246 H (74-99) mg/dL POC Glucose (mg/dL) (75-99) mg/dL Calcium 8.2 L (8.4-10.2) mg/dL Alkaline Phosphatase 282 H (38-126) U/L Albumin 2.7 L (3.5-5.0) g/dL
[2021-03-06] MEDS: ASPIRIN 81 MG PO SCH (08:28)
[2021-03-06] MEDS: amLODIPine 10 MG TAB PO SCH (08:29)
[2021-03-06] MEDS: TOBRAMYCIN 0.3% OPHTH OINT 3.5 GM TUBE BOTH EYES SCH ×4 (08:29→21:09)
[2021-03-06] MEDS: FUROSEMIDE 10 MG/ML 10 ML VIAL IV SCH (08:29)
[2021-03-06] MEDS: METOPROLOL TARTRATE 50 MG TAB PO SCH ×2 (08:29→21:08)
[2021-03-06] MEDS: ISOSORBIDE MONONITRATE ER 30 MG TAB.ER.24H PO SCH (08:29)
[2021-03-06] MEDS: DULoxetine HCL 60 MG CAPSULE.DR PO SCH (08:29)
[2021-03-06] MEDS: ATORVASTATIN 40 MG TAB PO SCH (08:29)
[2021-03-06] MEDS ORDERED: FLUDROCORTISONE 0.1 MG TAB PO SCH (09:00)
[2021-03-06] MEDS: SYMBICORT 80-4.5 MCG INHALER INHALATION SCH ×2 (09:03→19:14)
--- NOTE | 2021-03-06 09:21 | P.PN ---
Subjective Patient is seen in follow-up for acute kidney injury on chronic kidney disease. No improvement in renal function. Urine output 250 mL overnight despite IV Lasix. Oral intake is poor. No edema. Has been having intermittent vomiting and loose stools. Vital signs are stable. General: The patient appeared well nourished and normally developed. HEENT: Head exam is unremarkable. Neck is without jugular venous distension. LUNGS: Breath sounds decreased. HEART: Rate and Rhythm are regular. ABDOMEN: Soft, no distention. EXTREMITITES: No edema. Objective - Vital Signs Vital signs: Vital Signs Temp 98.1 F 03/06/21 08:26 Pulse 70 03/06/21 08:26 Resp 18 03/06/21 08:26 BP 166/84 03/06/21 08:26 Pulse Ox 95 03/06/21 09:02 Intake & Output 03/05/21 03/06/21 03/06/21 18:59 06:59 18:59 Intake Total 720 720 Output Total 410 Balance 720 -410 720 Weight 77.111 kg 77.8 kg Intake: Oral 720 720 Output: Urine 410 Other: Voiding Method Urinal # Voids 2 # Bowel Movements 1 - Labs CBC & Chem 7: 03/06/21 06:57 03/06/21 06:57 Labs: Abnormal Lab Results - Last 24 Hours (Table) 03/05/21 03/05/21 03/05/21 Range/Units 11:36 16:41 20:22 RBC (4.30-5.90) m/uL Hgb (13.0-17.5) gm/dL Hct (39.0-53.0) % RDW (11.5-15.5) % Sodium (137-145) mmol/L Potassium (3.5-5.1) mmol/L BUN (9-20) mg/dL Creatinine (0.66-1.25) mg/dL Glucose (74-99) mg/dL POC Glucose (mg/dL) 291 H 308 H 244 H (75-99) mg/dL Calcium (8.4-10.2) mg/dL Alkaline Phosphatase (38-126) U/L Albumin (3.5-5.0) g/dL 03/06/21 03/06/21 03/06/21 Range/Units 06:17 06:57 06:57 RBC 3.10 L (4.30-5.90) m/uL Hgb 8.9 L (13.0-17.5) gm/dL Hct 26.2 L (39.0-53.0) % RDW 15.6 H (11.5-15.5) % Sodium 134 L (137-145) mmol/L Potassium 5.3 H (3.5-5.1) mmol/L BUN 97 H (9-20) mg/dL Creatinine 5.26 H (0.66-1.25) mg/dL Glucose 246 H (74-99) mg/dL POC Glucose (mg/dL) 256 H (75-99) mg/dL Calcium 8.2 L (8.4-10.2) mg/dL Alkaline Phosphatase 282 H (38-126) U/L Albumin 2.7 L (3.5-5.0) g/dL Assessment and Plan Plan: Assessment: 1. Acute kidney injury secondary to ATN secondary to diuresis, vomiting and diarrhea. Creatinine 5.26 today. No evidence of urinary retention or hydronephrosis. 2. Chronic kidney disease stage IIIB secondary to diabetic kidney disease with baseline creatinine in the range of 2-2.5. 3. Diabetes mellitus. 4. Chronic diastolic CHF. 5. Mild hyperkalemia secondary to acute kidney injury. Patient received Kayexalate this morning. 6. Anemia of chronic kidney disease. Rule out iron deficiency. Plan: Stop IV Lasix. Start normal saline at 75 mL an hour. Repeat BMP this evening. Continue to monitor renal function and urine output. Continue to assess daily for need for renal present therapy. Check iron studies. Repeat chest x-ray.
[2021-03-06 11:38] LABS: Glucose,Whole Blood 307 mg/dL (75-99)
[2021-03-06] MEDS: SODIUM CHLORIDE 0.9% 1,000 ML IV SCH ×2 (11:57→20:59)
--- NOTE | 2021-03-06 12:33 | P.PN ---
Subjective Progress Note Date: 03/06/21 Patient was interviewed and examined lying in bed. Patient reported feels better today. He reports shortness of breath is improved. GENERAL: Well-appearing, well-nourished and in no acute distress. NECK: Supple without JVD or thyromegaly. LUNGS: Auscultation of lungs does demonstrate some mild crackles in the right base, clear on the left. No wheezing, or rales. HEART: Regular rate and rhythm without murmurs, rubs or gallops. S1 and S2 heard. No S3 gallop. EXTREMITIES: Normal range of motion, no edema. No clubbing or cyanosis. Peripheral pulses intact and strong. VITALS: [Temp 98.1, pulse 70, respiratory rate 18, blood pressure 166/84, O2 saturation 91% on room air] TELEMETRY: [Sinus rhythm on telemetry] LABS: [White count 6.8, hemoglobin 8.9, sodium 134, potassium 5.3, V1 97, creatinine 5.26, glucose 246] IMPRESSION: [Acute exacerbation of chronic diastolic heart failure Hypertension Hyperlipidemia Diabetes mellitus, uncontrolled Chronic kidney disease Dysautonomia Former nicotine dependence] PLAN: Change to by mouth Lasix 80 mg twice a day Start amlodipine 10 mg daily Monitor kidney function Daily weights Accurate intake and output The patient has been seen and evaluated by Dr. Rodriguez. Plan of care has been reviewed and agreed upon by Dr. Rodriguez. Objective - Vital Signs Vital signs: Vital Signs Temp 98.1 F 03/06/21 08:26 Pulse 64 03/06/21 11:56 Resp 18 03/06/21 11:56 BP 138/78 03/06/21 11:56 Pulse Ox 93 L 03/06/21 11:56 Intake & Output 03/05/21 03/06/21 03/06/21 18:59 06:59 18:59 Intake Total 720 720 Output Total 410 Balance 720 -410 720 Weight 77.111 kg 77.8 kg Intake: Oral 720 720 Output: Urine 410 Other: Voiding Method Urinal Urinal # Voids 2 # Bowel Movements 1 1 - Labs CBC & Chem 7: 03/06/21 06:57 03/06/21 06:57 Labs: Abnormal Lab Results - Last 24 Hours (Table) 03/05/21 03/05/21 03/06/21 Range/Units 16:41 20:22 06:17 RBC (4.30-5.90) m/uL Hgb (13.0-17.5) gm/dL Hct (39.0-53.0) % RDW (11.5-15.5) % Sodium (137-145) mmol/L Potassium (3.5-5.1) mmol/L BUN (9-20) mg/dL Creatinine (0.66-1.25) mg/dL Glucose (74-99) mg/dL POC Glucose (mg/dL) 308 H 244 H 256 H (75-99) mg/dL Calcium (8.4-10.2) mg/dL Alkaline Phosphatase (38-126) U/L Albumin (3.5-5.0) g/dL 03/06/21 03/06/21 03/06/21 Range/Units 06:57 06:57 11:37 RBC 3.10 L (4.30-5.90) m/uL Hgb 8.9 L (13.0-17.5) gm/dL Hct 26.2 L (39.0-53.0) % RDW 15.6 H (11.5-15.5) % Sodium 134 L (137-145) mmol/L Potassium 5.3 H (3.5-5.1) mmol/L BUN 97 H (9-20) mg/dL Creatinine 5.26 H (0.66-1.25) mg/dL Glucose 246 H (74-99) mg/dL POC Glucose (mg/dL) 307 H (75-99) mg/dL Calcium 8.2 L (8.4-10.2) mg/dL Alkaline Phosphatase 282 H (38-126) U/L Albumin 2.7 L (3.5-5.0) g/dL
[2021-03-06] MEDS: ONDANSETRON 4 MG/2 ML VIAL IVP PRN (14:45)
[2021-03-06] MEDS ORDERED: FUROSEMIDE 80 MG TAB PO SCH (16:00)
[2021-03-06 16:45] LABS: Glucose,Whole Blood 259 mg/dL (75-99)
[2021-03-06 17:57] LABS: Ferritin 159.7 ng/mL (22.0-322.0)
[2021-03-06 18:02] LABS: % Iron Saturation 5.33 (15.00-50.00)
[2021-03-06 19:38] LABS: Potassium 5.2 mmol/L (3.5-5.1)
[2021-03-06 20:21] LABS: Glucose,Whole Blood 347 mg/dL (75-99)
[2021-03-06] MEDS: ACETAMINOPHEN TAB 325 MG TAB PO PRN (21:08)
[2021-03-06] MEDS: INSULIN DETEMIR (LEVEMIR) 100 UNIT/ML SYR SQ SCH (21:08)
[2021-03-07 03:05] LABS: Glucose,Whole Blood 81 mg/dL (75-99)
[2021-03-07] MEDS: INSULIN ASPART (NovoLOG) 100 UNIT/ML VIAL SQ SCH ×4 (06:00→20:24)
[2021-03-07 06:01] LABS: Glucose,Whole Blood 98 mg/dL (75-99)
[2021-03-07] MEDS: PANTOPRAZOLE 40 MG TABLET PO SCH (06:01)
[2021-03-07] MEDS: SYMBICORT 80-4.5 MCG INHALER INHALATION SCH ×2 (07:45→20:35)
[2021-03-07 08:12] LABS: Albumin 3.1 g/dL (3.5-5.0); Calcium 8.3 mg/dL (8.4-10.2); Magnesium 2.7 mg/dL (1.6-2.3); Potassium 5.3 mmol/L (3.5-5.1); Total Bilirubin 0.4 mg/dL (0.2-1.3); Total Protein 7.1 g/dL (6.3-8.2)
--- NOTE | 2021-03-07 08:44 | P.PN ---
Subjective Patient is seen in follow-up for acute kidney injury on chronic kidney disease. No improvement in renal function. He did not receive IV fluids yesterday due to lack of IV access. Still complains of diarrhea. Oral intake fair. Blood pressure stable. Vital signs are stable. General: The patient appeared well nourished and normally developed. HEENT: Head exam is unremarkable. Neck is without jugular venous distension. LUNGS: Breath sounds decreased. HEART: Rate and Rhythm are regular. ABDOMEN: Soft, no distention. EXTREMITITES: No edema. Objective - Vital Signs Vital signs: Vital Signs Temp 97.7 F 03/07/21 03:26 Pulse 56 L 03/07/21 03:26 Resp 16 03/07/21 03:26 BP 132/71 03/07/21 03:26 Pulse Ox 94 L 03/07/21 03:26 Intake & Output 03/06/21 03/07/21 03/07/21 18:59 06:59 18:59 Intake Total 1200 Output Total 350 Balance 1200 -350 Weight 77.7 kg Intake: Oral 1200 Output: Urine 350 Other: Voiding Method Urinal Urinal # Voids 2 # Bowel Movements 1 - Labs CBC & Chem 7: 03/06/21 06:57 03/07/21 07:15 Labs: Abnormal Lab Results - Last 24 Hours (Table) 03/06/21 03/06/21 03/06/21 Range/Units 06:57 11:37 16:43 Sodium (137-145) mmol/L Potassium (3.5-5.1) mmol/L BUN (9-20) mg/dL Creatinine (0.66-1.25) mg/dL Glucose (74-99) mg/dL POC Glucose (mg/dL) 307 H 259 H (75-99) mg/dL Calcium (8.4-10.2) mg/dL Magnesium (1.6-2.3) mg/dL Iron 12 L (65-175) ug/dL TIBC 225 L (228-460) ug/dL % Saturation 5.33 L (15.00-50.00) Alkaline Phosphatase (38-126) U/L Albumin (3.5-5.0) g/dL 03/06/21 03/06/21 03/07/21 Range/Units 18:54 20:20 07:15 Sodium 133 L 136 L (137-145) mmol/L Potassium 5.2 H 5.3 H (3.5-5.1) mmol/L BUN 97 H 98 H (9-20) mg/dL Creatinine 5.30 H 5.94 H (0.66-1.25) mg/dL Glucose 319 H 101 H (74-99) mg/dL POC Glucose (mg/dL) 347 H (75-99) mg/dL Calcium 8.0 L 8.3 L (8.4-10.2) mg/dL Magnesium 2.7 H (1.6-2.3) mg/dL Iron (65-175) ug/dL TIBC (228-460) ug/dL % Saturation (15.00-50.00) Alkaline Phosphatase 333 H (38-126) U/L Albumin 3.1 L (3.5-5.0) g/dL Assessment and Plan Plan: Assessment: 1. Acute kidney injury secondary to ATN secondary to diuresis, vomiting and diarrhea. Creatinine 5.94 today. No evidence of urinary retention or hydronephrosis. 2. Chronic kidney disease stage IIIB secondary to diabetic kidney disease with baseline creatinine in the range of 2-2.5. 3. Diabetes mellitus. 4. Chronic diastolic CHF. 5. Mild hyperkalemia secondary to acute kidney injury. Stable. 6. Anemia of chronic kidney disease. Iron deficiency noted. Plan: Continue to hold diuretics. Start normal saline at 75 mL an hour - he received IV access this morning. Repeat K this evening. Continue to monitor renal function and urine output. Add IV iron. Follow-up chest x-ray. If no improvement in renal function and urine output in the next 24 hours, will initiate renal replacement therapy. Patient agreeable.
--- NOTE | 2021-03-07 08:53 | XR ---
EXAMINATION TYPE: XR chest 1V DATE OF EXAM: 03/07/2021 COMPARISON: 03/04/2021 HISTORY: Shortness of breath TECHNIQUE: Single frontal view of the chest is obtained. FINDINGS AND IMPRESSION: Decreased bilateral interstitial opacities/pulmonary edema. Decreased bibasilar airspace disease and/or atelectasis. Trace bilateral pleural effusions. No pneumothorax. Cardiomediastinal silhouette within normal limit. No acute osseous abnormality. Overall there is interval improvement compared to 03/04/2021.
[2021-03-07] MEDS: ASPIRIN 81 MG PO SCH (09:56)
[2021-03-07] MEDS: ATORVASTATIN 40 MG TAB PO SCH (09:56)
[2021-03-07] MEDS: amLODIPine 10 MG TAB PO SCH (09:56)
[2021-03-07] MEDS: ISOSORBIDE MONONITRATE ER 30 MG TAB.ER.24H PO SCH (09:56)
[2021-03-07] MEDS: DULoxetine HCL 60 MG CAPSULE.DR PO SCH (09:57)
[2021-03-07] MEDS: HEPARIN SODIUM,PORCINE/PF 5,000 UNIT/0.5 ML SYRINGE SQ SCH ×3 (09:57→23:32)
[2021-03-07] MEDS: METOPROLOL TARTRATE 50 MG TAB PO SCH ×2 (09:57→20:23)
[2021-03-07] MEDS: SODIUM FERRIC GLUCONAT-SUCROSE 125 MG in SODIUM CHLORIDE 0.9% 100 ML IVPB SCH (09:58)
[2021-03-07] MEDS: TOBRAMYCIN 0.3% OPHTH OINT 3.5 GM TUBE BOTH EYES SCH ×4 (09:59→20:26)
--- NOTE | 2021-03-07 11:48 | P.PN ---
Subjective Progress Note Date: 03/07/21 The patient was interviewed and examined lying comfortably in bed. He was sleeping and appears quite irritated about being awakened. No chest pain or chest pressure. No palpitations, dizziness, or lightheadedness. He states he has been up walking around his room. GENERAL: Well-appearing, well-nourished and in no acute distress. NECK: Supple without JVD or thyromegaly. LUNGS: Breath sounds diminished mto auscultation bilaterally. Respiration equal and unlabored. No wheezes, rales or rhonchi. HEART: Regular rate and rhythm without murmurs, rubs or gallops. S1 and S2 heard. EXTREMITIES: Normal range of motion. Mild edema. No clubbing or cyanosis. Peripheral pulses intact and strong. Multiple diabetic wounds on his bilateral lower extremities VITALS: Blood pressure 132/71, pulse rate 56, temperature 97.7F, respiratory rate 16, SpO2 94% on room air TELEMETRY: Sinus rhythm with heart rates in the 60s LABS: Sodium 136, potassium 5.3, creatinine 5.94, BUN 98, magnesium 2.7, AST 34, ALT 18, ALP 333 IMPRESSION: Diastolic heart failure Hypertension, improved Hyperlipidemia Diabetes mellitus, uncontrolled Dysautonomia Chronic kidney disease Former smoker Diabetic ulcers PLAN: Continue current medication regimen Patient is cleared to be discharged from the cardiac standpoint Follow-up with cardiology in 1-2 weeks The patient has been seen and evaluated. Plan of care has been reviewed and agreed upon by Dr Rodriguez. Objective - Vital Signs Vital signs: Vital Signs Temp 96.9 F L 03/07/21 08:00 Pulse 64 03/07/21 08:00 Resp 16 03/07/21 08:00 BP 160/72 03/07/21 08:00 Pulse Ox 96 03/07/21 08:00 Intake & Output 03/06/21 03/07/21 03/07/21 18:59 06:59 18:59 Intake Total 1200 480 Output Total 350 Balance 1200 -350 480 Weight 77.7 kg Intake: Oral 1200 480 Output: Urine 350 Other: Voiding Method Urinal Urinal # Voids 2 # Bowel Movements 1 - Labs CBC & Chem 7: 03/06/21 06:57 03/07/21 07:15 Labs: Abnormal Lab Results - Last 24 Hours (Table) 03/06/21 03/06/21 03/06/21 Range/Units 06:57 16:43 18:54 Sodium 133 L (137-145) mmol/L Potassium 5.2 H (3.5-5.1) mmol/L BUN 97 H (9-20) mg/dL Creatinine 5.30 H (0.66-1.25) mg/dL Glucose 319 H (74-99) mg/dL POC Glucose (mg/dL) 259 H (75-99) mg/dL Calcium 8.0 L (8.4-10.2) mg/dL Magnesium (1.6-2.3) mg/dL Iron 12 L (65-175) ug/dL TIBC 225 L (228-460) ug/dL % Saturation 5.33 L (15.00-50.00) Alkaline Phosphatase (38-126) U/L Albumin (3.5-5.0) g/dL 03/06/21 03/07/21 Range/Units 20:20 07:15 Sodium 136 L (137-145) mmol/L Potassium 5.3 H (3.5-5.1) mmol/L BUN 98 H (9-20) mg/dL Creatinine 5.94 H (0.66-1.25) mg/dL Glucose 101 H (74-99) mg/dL POC Glucose (mg/dL) 347 H (75-99) mg/dL Calcium 8.3 L (8.4-10.2) mg/dL Magnesium 2.7 H (1.6-2.3) mg/dL Iron (65-175) ug/dL TIBC (228-460) ug/dL % Saturation (15.00-50.00) Alkaline Phosphatase 333 H (38-126) U/L Albumin 3.1 L (3.5-5.0) g/dL
[2021-03-07 12:05] LABS: Glucose,Whole Blood 238 mg/dL (75-99)
[2021-03-07] MEDS: SODIUM CHLORIDE 0.9% 1,000 ML IV SCH ×2 (12:08→23:33)
--- NOTE | 2021-03-07 12:54 | P.PN ---
Subjective 51-year-old male with multiple chronic medical problems came in with the blurry vision which started about a week ago. Patient is found to have uncontrolled blood sugars. Patient does have history of congestive heart failure chronic d iastolic dysfunction was comparing of shortness of breath unable to get clear history of orthopnea paroxysmal nocturnal dyspnea it's very hard to get history from the patient. Patient the visual problem his blurriness in both eyes. Patient denied any fever chills denied any significant cough. Patient is on 0.1 mg twice a day of hydrocortisone for autonomic dysfunction as per the previous documentation in this autonomic dysfunction was believed to be secondary to diabetes mellitus. Patient does have chronic kidney disease stage IV with baseline creatinine of around 2.8 and present creatinine is around 5. Patient has multiple chronic ulcerations of bilateral lower extremities which are pr esently in healing stages, none of them appear to be infected. Patient has some hypervolemic hyponatremia as well. Chest x-ray did show pulmonary edema and patient's BNP is highly elevated 03/06/2021 patient vision is getting better patient blood sugars are still high patient is a semiglutide. Patient the potassium is 5.3 will order Kayexalate. and 80 mg of IV Lasix patient the creatinine remains stable at 5.28 nephrology is a valid in the patient patient is an 80 mg twice a day of IV Lasix instead of which patient doesn't have any good urine output at this time. Because of continued elevation of blood sugars will add a long-acting insulin 12 units. 03/07/2021 Patient doesn't have any significant urine output. Patient creatinine is bit worse today chest x-ray showing clearing CHF, nephrology valid the patient is started him on IV fluids at this time creatinine is 5.94. Patient most probably will end up requiring hemodialysis. Patient cannot have gabapentin because of his acute renal failure. Serum potassium is 5.3 Constitutional: Denied any fatigue denied any fever. Cardio vascular: denied any chest pain, palpitations Gastrointestinal denied any nausea vomiting Pulmonary: Denied any shortness of breath cough Neurologic denied any new focal deficits All inpatient medications were reviewed and appropriate changes in these medic ations as dictated in the interval history and assessment and plan. PHYSICAL EXAMINATION: GENERAL: The patient is alert and oriented x3, not in any acute distress. Well developed, well nourished. HEENT: Pupils are round and equally reacting to light. EOMI, blurriness is better now. No scleral icterus. No conjunctival pallor. Normocephalic, atraumatic. No pharyngeal erythema. No thyromegaly. CARDIOVASCULAR: S1 and S2 present. No murmurs, rubs, or gallops. PULMONARY: Chest is clear to auscultation, no wheezing or crackles. ABDOMEN: Soft, nontender, nondistended, normoactive bowel sounds. No palpable organomegaly. MUSCULOSKELETAL: No joint swelling or deformity. EXTREMITIES: No cyanosis, clubbing, or pedal edema. NEUROLOGICAL: Gross neurological examination did not reveal any focal deficits. SKIN: Multiple stage I and stage II ulcerations in bilateral lower extremity chest in healing stages Assessment and plan -Acute renal failure: Prerenal azotemia probably secondary to congestive heart failure or volume overload on admission as his creatinine continued to get worse and the history is takes is looking better patient was started on IV fluids and now this worsening renal failure was believed to be secondary to excess Lasix. Patient most probably has cardiorenal syndrome and and up needing hemodialysis eventually -Blurry vision probably secondary to hyperglycemia, improved with improvement of blood sugars continue with his home regimen of ozempic along with sliding scale insulin. Added long-acting insulin blood sugars are highly fluctuating because of his poor dietary compliance -Volume overload possibly congestive heart failure chronic diastolic dysfunction with acute exacerbation the exacerbation is secondary to fludrocortisone , patient is presently on low-dose of fludrocortisone, -Chronic kidney disease stage IV: Secondary to diabetic nephropathy -Autonomic dysfunction for which patient is on fludrocortisone which is being weaned off and will discontinued today -Type 2 diabetes mellitus uncontrolled elevated blood sugars: Patient will be continued on his home regimen along with sliding scale insulin and titration of this insulin depending on his blood sugars. -Multiple bilateral lower extremity ulcers in healing stages secondary to diabetic peripheral neuropathy -Congestive heart failure chronic diastolic dysfunction with acute exacerbation Secondary pulmonary hypertension due to CHF -COPD without any acute exacerbation quit smoking years ago DVT prophylaxis: Subcutaneous heparin Objective - Vital Signs Vital signs: Vital Signs Temp 97 F L 03/07/21 12:09 Pulse 66 03/07/21 12:09 Resp 16 03/07/21 12:09 BP 143/70 03/07/21 12:09 Pulse Ox 96 03/07/21 12:09 Intake & Output 03/06/21 03/07/21 03/07/21 18:59 06:59 18:59 Intake Total 1200 480 Output Total 350 Balance 1200 -350 480 Weight 77.7 kg Intake: Oral 1200 480 Output: Urine 350 Other: Voiding Method Urinal Urinal # Voids 2 # Bowel Movements 1 - Labs CBC & Chem 7: 03/06/21 06:57 03/07/21 07:15 Labs: Abnormal Lab Results - Last 24 Hours (Table) 03/06/21 03/06/21 03/06/21 Range/Units 06:57 16:43 18:54 Sodium 133 L (137-145) mmol/L Potassium 5.2 H (3.5-5.1) mmol/L BUN 97 H (9-20) mg/dL Creatinine 5.30 H (0.66-1.25) mg/dL Glucose 319 H (74-99) mg/dL POC Glucose (mg/dL) 259 H (75-99) mg/dL Calcium 8.0 L (8.4-10.2) mg/dL Magnesium (1.6-2.3) mg/dL Iron 12 L (65-175) ug/dL TIBC 225 L (228-460) ug/dL % Saturation 5.33 L (15.00-50.00) Alkaline Phosphatase (38-126) U/L Albumin (3.5-5.0) g/dL 03/06/21 03/07/21 03/07/21 Range/Units 20:20 07:15 12:03 Sodium 136 L (137-145) mmol/L Potassium 5.3 H (3.5-5.1) mmol/L BUN 98 H (9-20) mg/dL Creatinine 5.94 H (0.66-1.25) mg/dL Glucose 101 H (74-99) mg/dL POC Glucose (mg/dL) 347 H 238 H (75-99) mg/dL Calcium 8.3 L (8.4-10.2) mg/dL Magnesium 2.7 H (1.6-2.3) mg/dL Iron (65-175) ug/dL TIBC (228-460) ug/dL % Saturation (15.00-50.00) Alkaline Phosphatase 333 H (38-126) U/L Albumin 3.1 L (3.5-5.0) g/dL
[2021-03-07 17:01] LABS: Glucose,Whole Blood 187 mg/dL (75-99)
[2021-03-07] MEDS ORDERED: SODIUM POLYSTYRENE SULFONATE 15 GM/60 ML BOTTLE PO STA (18:49)
[2021-03-07 20:11] LABS: Glucose,Whole Blood 226 mg/dL (75-99)
[2021-03-07] MEDS: INSULIN DETEMIR (LEVEMIR) 100 UNIT/ML SYR SQ SCH (20:23)
[2021-03-08 03:44] LABS: Glucose,Whole Blood 66 mg/dL (75-99)
[2021-03-08 03:47] LABS: Glucose,Whole Blood 76 mg/dL (75-99)
[2021-03-08 06:13] LABS: Glucose,Whole Blood 117 mg/dL (75-99)
[2021-03-08] MEDS: INSULIN ASPART (NovoLOG) 100 UNIT/ML VIAL SQ SCH ×4 (06:22→20:58)
[2021-03-08] MEDS: PANTOPRAZOLE 40 MG TABLET PO SCH (06:22)
[2021-03-08 07:17] LABS: Calcium 8.1 mg/dL (8.4-10.2); Magnesium 2.6 mg/dL (1.6-2.3); Potassium 5.2 mmol/L (3.5-5.1)
[2021-03-08] MEDS: SYMBICORT 80-4.5 MCG INHALER INHALATION SCH ×2 (09:08→21:59)
--- NOTE | 2021-03-08 09:19 | P.PN ---
Subjective Patient is seen in follow-up for acute kidney injury on chronic kidney disease. No improvement in renal function. He is receiving IV fluids. Patient states he's been voiding but output has been low. Diarrhea improved. Still doesn't feel well overall. Vital signs are stable. General: The patient appeared well nourished and normally developed. HEENT: Head exam is unremarkable. Neck is without jugular venous distension. LUNGS: Breath sounds decreased. HEART: Rate and Rhythm are regular. ABDOMEN: Soft, no distention. EXTREMITITES: No edema. Chronic changes and wounds noted. Objective - Vital Signs Vital signs: Vital Signs Temp 98.2 F 03/08/21 04:00 Pulse 66 03/08/21 04:00 Resp 20 03/08/21 04:00 BP 134/69 03/08/21 04:00 Pulse Ox 94 L 03/08/21 04:00 Intake & Output 03/07/21 03/08/21 03/08/21 18:59 06:59 18:59 Intake Total 598 360 Output Total 580 Balance 598 -580 360 Weight 77.5 kg Intake: Oral 598 360 Output: Urine 580 Other: Voiding Method Toilet Urinal # Voids 1 - Labs CBC & Chem 7: 03/06/21 06:57 03/08/21 06:07 Labs: Abnormal Lab Results - Last 24 Hours (Table) 03/07/21 03/07/21 03/07/21 Range/Units 12:03 17:00 17:21 Sodium (137-145) mmol/L Potassium 5.5 H (3.5-5.1) mmol/L BUN (9-20) mg/dL Creatinine (0.66-1.25) mg/dL Glucose (74-99) mg/dL POC Glucose (mg/dL) 238 H 187 H (75-99) mg/dL Calcium (8.4-10.2) mg/dL Phosphorus (2.5-4.5) mg/dL Magnesium (1.6-2.3) mg/dL 03/07/21 03/08/21 03/08/21 Range/Units 20:00 03:33 06:07 Sodium 135 L (137-145) mmol/L Potassium 5.2 H (3.5-5.1) mmol/L BUN 106 H* (9-20) mg/dL Creatinine 5.66 H (0.66-1.25) mg/dL Glucose 113 H (74-99) mg/dL POC Glucose (mg/dL) 226 H 66 L (75-99) mg/dL Calcium 8.1 L (8.4-10.2) mg/dL Phosphorus 8.0 H (2.5-4.5) mg/dL Magnesium 2.6 H (1.6-2.3) mg/dL 03/08/21 Range/Units 06:12 Sodium (137-145) mmol/L Potassium (3.5-5.1) mmol/L BUN (9-20) mg/dL Creatinine (0.66-1.25) mg/dL Glucose (74-99) mg/dL POC Glucose (mg/dL) 117 H (75-99) mg/dL Calcium (8.4-10.2) mg/dL Phosphorus (2.5-4.5) mg/dL Magnesium (1.6-2.3) mg/dL Assessment and Plan Plan: Assessment: 1. Acute kidney injury secondary to ATN secondary to diuresis, vomiting and diarrhea. Creatinine 5.66 today. No evidence of urinary retention or hydronephrosis. 2. Chronic kidney disease stage IIIB secondary to diabetic kidney disease with baseline creatinine in the range of 2-2.5. 3. Diabetes mellitus. 4. Chronic diastolic CHF. 5. Mild hyperkalemia secondary to acute kidney injury. Stable. 6. Anemia of chronic kidney disease. Iron deficiency noted. Plan: Maintain IV fluids - decrease rate to 50 cc/hr. Maintain IV iron. Due to no improvement in renal function, low urine output and symptoms of uremia, initiated renal replacement therapy. Consult vascular surgery for dialysis catheter placement. Plan for first unit of hemodialysis today and second treatment tomorrow. Monitor for renal recovery.
[2021-03-08] MEDS: METOPROLOL TARTRATE 50 MG TAB PO SCH ×2 (10:13→20:59)
[2021-03-08] MEDS: amLODIPine 10 MG TAB PO SCH (10:14)
[2021-03-08] MEDS: ISOSORBIDE MONONITRATE ER 30 MG TAB.ER.24H PO SCH (10:14)
[2021-03-08] MEDS: HEPARIN SODIUM,PORCINE/PF 5,000 UNIT/0.5 ML SYRINGE SQ SCH ×3 (10:14→22:44)
[2021-03-08] MEDS: DULoxetine HCL 60 MG CAPSULE.DR PO SCH (10:14)
[2021-03-08] MEDS: ATORVASTATIN 40 MG TAB PO SCH (10:14)
[2021-03-08] MEDS: ASPIRIN 81 MG PO SCH (10:14)
[2021-03-08] MEDS: SODIUM FERRIC GLUCONAT-SUCROSE 125 MG in SODIUM CHLORIDE 0.9% 100 ML IVPB SCH (10:15)
[2021-03-08] MEDS: TOBRAMYCIN 0.3% OPHTH OINT 3.5 GM TUBE BOTH EYES SCH ×4 (10:15→20:59)
[2021-03-08 11:37] LABS: Glucose,Whole Blood 212 mg/dL (75-99)
--- NOTE | 2021-03-08 12:26 | P.OP ---
Date of Procedure: 03/08/21 Preoperative Diagnosis: Acute on chronic renal failure Postoperative Diagnosis: Same. Procedure(s) Performed: Insertion of a non-tunneled hemodialysis catheter via the right femoral vein approach. Anesthesia: local Surgeon: Hua Becerril Estimated Blood Loss (ml): 5 IV fluids (ml): 0 Urine output (ml): 0 Pathology: none sent Condition: stable Disposition: no change Indications for Procedure: Patient is a 51-year-old male with a long-standing history of diabetes mellitus who is progressively drenching renal insufficiency. Over the past few days his renal function decline to the point where dialysis is now recommended. Patient is thus offered a non-tunneled hemodialysis catheter for initiation of dialysis today. Description of Procedure: Patient was placed supine in his bed. The right inguinal area sterilely prepped and draped in usual manner. 1% Xylocaine was utilized for local anesthesia tissues overlying the femoral vein. Through this anesthetized area a multipurpose needle was utilized to cannulate the vein. Once cannulated Softip guidewire is advanced without difficulty into the vein. The needle was withdrawn. A vessel dilator was advanced over the guidewire and then withdrawn, and the dialysis catheter was then advanced over the guidewire without difficulty. The guidewire was withdrawn. Blood was easily aspirated through both ports and both ports were then flushed with heparin saline solution. Caps were applied to each port limb and the catheter was secured to skin with nylon suture. Appropriate dressings were applied. Patient tolerated the procedure well. The dialysis catheter is available for use.
--- NOTE | 2021-03-08 12:29 | P.GSCN ---
History of Present Illness Consult date: 03/08/21 Reason for Consult: Dialysis access. Requesting physician: Niko Coffey History of present illness: Patient is a 51-year-old male with a long-standing history of diabetes mellitus and cardiac disease who recently was admitted with uncontrolled hyperglycemia and other comorbid medical issues. During this time his renal function has progressively declined to the point where dialysis is appropriate and request is made for dialysis access. Past Medical History Past Medical History: Heart Failure, Diabetes Mellitus, Hyperlipidemia, Hypertension Additional Past Medical History / Comment(s): IDDM type II, neuropathy bilateral feet, gout, bilateral eye catarct removal, MRSA . History of Any Multi-Drug Resistant Organisms: MRSA Year Discovered:: 12/17/20 MDRO Source:: Right Leg Past Surgical History: Cholecystectomy Additional Past Surgical History / Comment(s): I&D scrotal abscess, I&D back abscess Past Anesthesia/Blood Transfusion Reactions: No Reported Reaction Past Psychological History: Anxiety Smoking Status: Former smoker Past Alcohol Use History: None Reported Past Drug Use History: None Reported - Past Family History Mother Family Medical History: Diabetes Mellitus Father History Unknown: Yes Medications and Allergies Home Medications Medication Instructions Recorded Confirmed Type Omeprazole [PriLOSEC] 40 mg PO AC-BRKFST #14 capsule.dr 11/04/19 03/05/21 Rx DULoxetine HCL [Cymbalta] 60 mg PO DAILY 04/01/20 03/05/21 History Acetaminophen Tab [Tylenol] 650 mg PO Q4H PRN 07/25/20 03/05/21 History Albuterol Sulfate [Proair Hfa] 2 puff INHALATION RT-Q6H PRN 07/25/20 03/05/21 History Semaglutide [Ozempic] 1 mg SQ MO 10/03/20 03/05/21 History Atorvastatin [Lipitor] 40 mg PO DAILY #30 tab 10/13/20 03/05/21 Rx Fluticasone/Salmeterol [Advair 1 puff INHALATION RT-BID 12/16/20 03/05/21 History 250-50 Diskus] Nitroglycerin Sl Tabs [Nitrostat] 0.4 mg SL Q5M PRN 12/16/20 03/05/21 History Ondansetron [Zofran] 4 mg PO TID PRN 12/16/20 03/05/21 History INSULIN ASPART (NovoLOG) [NovoLOG See Protocol SQ ACHS 01/04/21 03/05/21 History (formulary)] Metoprolol Tartrate [Lopressor] 50 mg PO BID 30 Days #60 tab 01/14/21 03/05/21 Rx Aspirin 81 mg PO DAILY #30 chewable 01/18/21 03/05/21 Rx amLODIPine [Norvasc] 10 mg PO DAILY #30 tab 01/18/21 03/05/21 Rx Fludrocortisone [Florinef] 0.1 mg PO BID #60 tab 02/11/21 03/05/21 Rx Isosorbide Mononitrate ER [Imdur] 30 mg PO DAILY #30 tab.er.24h 02/11/21 03/05/21 Rx Furosemide [Lasix] 40 mg PO BID PRN 03/05/21 03/05/21 History Gabapentin 800 mg PO TID 03/05/21 03/05/21 History traZODone HCL [Desyrel] 100 mg PO HS PRN 03/05/21 03/05/21 History Allergies Allergy/AdvReac Type Severity Reaction Status Date / Time No Known Allergies Allergy Verified 03/05/21 08:01 Surgical - Exam Osteopathic Statement: *. No significant issues noted on an osteopathic structural exam other than those noted in the History and Physical/Consult. Vital Signs Temp Pulse Resp BP Pulse Ox 98.1 F 92 17 191/92 90 L 03/04/21 20:36 03/04/21 20:36 03/04/21 20:36 03/04/21 20:36 03/04/21 20:36 Results - Labs 03/06/21 06:57 03/08/21 06:07 Abnormal Lab Results - Last 24 Hours (Table) 03/07/21 03/07/21 03/07/21 Range/Units 17:00 17:21 20:00 Sodium (137-145) mmol/L Potassium 5.5 H (3.5-5.1) mmol/L BUN (9-20) mg/dL Creatinine (0.66-1.25) mg/dL Glucose (74-99) mg/dL POC Glucose (mg/dL) 187 H 226 H (75-99) mg/dL Calcium (8.4-10.2) mg/dL Phosphorus (2.5-4.5) mg/dL Magnesium (1.6-2.3) mg/dL 03/08/21 03/08/21 03/08/21 Range/Units 03:33 06:07 06:12 Sodium 135 L (137-145) mmol/L Potassium 5.2 H (3.5-5.1) mmol/L BUN 106 H* (9-20) mg/dL Creatinine 5.66 H (0.66-1.25) mg/dL Glucose 113 H (74-99) mg/dL POC Glucose (mg/dL) 66 L 117 H (75-99) mg/dL Calcium 8.1 L (8.4-10.2) mg/dL Phosphorus 8.0 H (2.5-4.5) mg/dL Magnesium 2.6 H (1.6-2.3) mg/dL 03/08/21 Range/Units 11:36 Sodium (137-145) mmol/L Potassium (3.5-5.1) mmol/L BUN (9-20) mg/dL Creatinine (0.66-1.25) mg/dL Glucose (74-99) mg/dL POC Glucose (mg/dL) 212 H (75-99) mg/dL Calcium (8.4-10.2) mg/dL Phosphorus (2.5-4.5) mg/dL Magnesium (1.6-2.3) mg/dL Diabetes panel 03/07/21 03/08/21 Range/Units 17:21 06:07 Sodium 135 L (137-145) mmol/L Potassium 5.5 H 5.2 H (3.5-5.1) mmol/L Chloride 103 (98-107) mmol/L Carbon Dioxide 23 (22-30) mmol/L BUN 106 H* (9-20) mg/dL Creatinine 5.66 H (0.66-1.25) mg/dL Glucose 113 H (74-99) mg/dL Calcium 8.1 L (8.4-10.2) mg/dL Calcium panel 03/08/21 Range/Units 06:07 Calcium 8.1 L (8.4-10.2) mg/dL Phosphorus 8.0 H (2.5-4.5) mg/dL Pituitary panel 03/07/21 03/08/21 Range/Units 17:21 06:07 Sodium 135 L (137-145) mmol/L Potassium 5.5 H 5.2 H (3.5-5.1) mmol/L Chloride 103 (98-107) mmol/L Carbon Dioxide 23 (22-30) mmol/L BUN 106 H* (9-20) mg/dL Creatinine 5.66 H (0.66-1.25) mg/dL Glucose 113 H (74-99) mg/dL Calcium 8.1 L (8.4-10.2) mg/dL Adrenal panel 03/07/21 03/08/21 Range/Units 17:21 06:07 Sodium 135 L (137-145) mmol/L Potassium 5.5 H 5.2 H (3.5-5.1) mmol/L Chloride 103 (98-107) mmol/L Carbon Dioxide 23 (22-30) mmol/L BUN 106 H* (9-20) mg/dL Creatinine 5.66 H (0.66-1.25) mg/dL Glucose 113 H (74-99) mg/dL Calcium 8.1 L (8.4-10.2) mg/dL Assessment and Plan Assessment: Chronic kidney disease stage IV with progression into acute renal failure Plan: I discussed with the patient placement of a non-tunneled hemodialysis catheter. The procedure, risk and benefits were discussed. Patient wished proceed. Consent form was signed. Catheter will be placed shortly. Time with Patient: Less than 30
--- NOTE | 2021-03-08 14:07 | P.PN ---
Subjective Progress Note Date: 03/08/21 51-year-old male with multiple chronic medical problems came in with the blurry vision which started about a week ago. Patient is found to have uncontrolled blood sugars. Patient does have history of congestive heart failure chronic diastolic dysfunction was comparing of shortness of breath unable to get clear history of orthopnea paroxysmal nocturnal dyspnea it's very hard to get history from the patient. Patient the visual problem his blurriness in both eyes. Patient denied any fever chills denied any significant cough. Patient is on 0.1 mg twice a day of hydrocortisone for autonomic dysfunction as per the previous documentation in this autonomic dysfunction was believed to be secondary to diabetes mellitus. Patient does have chronic kidney disease stage IV with baseline creatinine of around 2.8 and present creatinine is around 5. Patient has multiple chronic ulcerations of bilateral lower extremities which are presently in healing stages, none of them appear to be infected. Patient has some hypervolemic hyponatremia as well. Chest x-ray did show pulmonary edema and patient's BNP is highly elevated 03/06/2021 patient vision is getting better patient blood sugars are still high patient is a semiglutide. Patient the potassium is 5.3 will order Kayexalate. and 80 mg of IV Lasix patient the creatinine remains stable at 5.28 nephrology is a valid in the patient patient is an 80 mg twice a day of IV Lasix instead of which patient doesn't have any good urine output at this time. Because of continued elevation of blood sugars will add a long-acting insulin 12 units. 03/07/2021 Patient doesn't have any significant urine output. Patient creatinine is bit worse today chest x-ray showing clearing CHF, nephrology evaluated the patient is started him on IV fluids at this time creatinine is 5.94. Patient most probably will end up requiring hemodialysis. Patient cannot have gabapentin because of his acute renal failure. Serum potassium is 5.3 03/08/2021 Patient is seen and evaluated in follow-up this morning currently without IV access and no one in-house available for midline and nursing staff attempting IV access. Patient's creatinine is worse today at 5.66 with a BUN of 122, potassium is 5.2, sodium is 135, magnesium is 2.6. Nephrology following closely and plans are for dialysis catheter placement today to initiate hemodialysis. Patient is agreeable to this and will receive temporary catheter placement and start treatments. Patient continues to be lethargic although arousable and verbalizes understanding of treatment moving forward. Patient is maintained on sliding scale along with long-acting and will continue to monitor Accu-Cheks before meals and at bedtime. Patient also continues on gentle IV hydration and cardiology following. Constitutional: Reports of fatigue, denied any fever. Cardio vascular: denied any chest pain, palpitations Gastrointestinal denied any nausea vomiting Pulmonary: Denied any shortness of breath cough Neurologic denied any new focal deficits Active Medications Acetaminophen (Acetaminophen Tab 325 Mg Tab) 650 mg PO Q4H PRN PRN Reason: Mild Pain or Fever > 100.5 Last Admin: 03/06/21 21:08 Dose: 650 mg Documented by: Albuterol Sulfate (Albuterol Nebulized 2.5 Mg/3 Ml) 2.5 mg INHALATION RT-Q6H PRN PRN Reason: Shortness Of Breath Amlodipine Besylate (Amlodipine 10 Mg Tab) 10 mg PO DAILY [facility] Last Admin: 03/08/21 10:14 Dose: 10 mg Documented by: Aspirin (Aspirin 81 Mg) 81 mg PO DAILY [facility] Last Admin: 03/08/21 10:14 Dose: 81 mg Documented by: Atorvastatin Calcium (Atorvastatin 40 Mg Tab) 40 mg PO DAILY [facility] Last Admin: 03/08/21 10:14 Dose: 40 mg Documented by: Budesonide/Formoterol Fumarate (Symbicort 80-4.5 Mcg Inhaler) 2 puff INHALATION RT-BID [facility] Last Admin: 03/08/21 09:08 Dose: Not Given Documented by: Duloxetine HCl (Duloxetine Hcl 60 Mg Capsule.Dr) 60 mg PO DAILY [facility] Last Admin: 03/08/21 10:14 Dose: 60 mg Documented by: Heparin Sodium (Porcine) (Heparin Sodium,Porcine/Pf 5,000 Unit/0.5 Ml Syringe) 5,000 unit SQ Q8HR [facility] Last Admin: 03/08/21 10:14 Dose: 5,000 unit Documented by: Sodium Chloride (Saline 0.9%) 1,000 mls @ 50 mls/hr IV .Q20H [facility] Last Admin: 03/07/21 23:33 Dose: 75 mls/hr Documented by: Ferric Sodium Gluconate 125 mg (/ Sodium Chloride) 110 mls @ 100 mls/hr IVPB DAILY [facility] Stop: 03/10/21 09:31 Last Admin: 03/08/21 10:15 Dose: 100 mls/hr Documented by: Insulin Aspart (Insulin Aspart (Novolog) 100 Unit/Ml Vial) 0 unit SQ [facility]; Protocol Last Admin: 03/08/21 13:22 Dose: 3 unit Documented by: Insulin Detemir (Insulin Detemir (Levemir) 100 Unit/Ml Syr) 12 unit SQ HS [facility] Last Admin: 03/07/21 20:23 Dose: 12 unit Documented by: Isosorbide Mononitrate (Isosorbide Mononitrate Er 30 Mg Tab.Er.24h) 30 mg PO DAILY [facility] Last Admin: 03/08/21 10:14 Dose: 30 mg Documented by: Metoprolol Tartrate (Metoprolol Tartrate 50 Mg Tab) 50 mg PO BID [facility] Last Admin: 03/08/21 10:13 Dose: 50 mg Documented by: Morphine Sulfate (Morphine Sulfate 4 Mg/Ml Syringe) 4 mg IV Q4HR PRN PRN Reason: Severe Pain Naloxone HCl (Naloxone 0.4 Mg/Ml 1 Ml Vial) 0.2 mg IV Q2M PRN PRN Reason: Opioid Reversal Nitroglycerin (Nitroglycerin Sl Tabs 0.4 Mg Tab) 0.4 mg SUBLINGUAL Q5M PRN PRN Reason: Chest Pain Semaglutide [Ozempic ] 1 Mg/0.75 Ml Pen. Injctr 1 mg SQ MO [facility] Ondansetron HCl (Ondansetron 4 Mg/2 Ml Vial) 4 mg IVP Q8HR PRN PRN Reason: Nausea And Vomiting Last Admin: 03/06/21 14:45 Dose: 4 mg Documented by: Ondansetron HCl (Ondansetron 4 Mg Tab) 4 mg PO TID PRN PRN Reason: Nausea Pantoprazole Sodium (Pantoprazole 40 Mg Tablet) 40 mg PO AC-BRKFST [facility] Last Admin: 03/08/21 06:22 Dose: Not Given Documented by: Tobramycin (Tobramycin 0.3% Ophth Oint 3.5 Gm Tube) 1 applic BOTH EYES QID [facility] Last Admin: 03/08/21 13:22 Dose: 1 applic Documented by: Trazodone HCl (Trazodone Hcl 100 Mg Tab) 100 mg PO HS PRN PRN Reason: Insomnia Objective - Vital Signs Vital signs: Vital Signs Temp 98.2 F 03/08/21 04:00 Pulse 66 03/08/21 04:00 Resp 20 03/08/21 04:00 BP 134/69 03/08/21 04:00 Pulse Ox 94 L 03/08/21 04:00 Intake & Output 03/07/21 03/08/21 03/08/21 18:59 06:59 18:59 Intake Total 598 360 Output Total 580 Balance 598 -580 360 Weight 77.5 kg Intake: Oral 598 360 Output: Urine 580 Other: Voiding Method Toilet Urinal # Voids 1 - Exam GENERAL: The patient is alert and oriented x3, lethargic although arousable, not in any acute distress. Well developed, well nourished. Disheveled appearing, unkempt HEENT: Pupils are round and equally reacting to light. EOMI, blurriness is better now. No scleral icterus. No conjunctival pallor. Normocephalic, atraumatic. No pharyngeal erythema. No thyromegaly. CARDIOVASCULAR: S1 and S2 present. No murmurs, rubs, or gallops. PULMONARY: Chest is clear to auscultation, no wheezing or crackles. ABDOMEN: Soft, nontender, nondistended, normoactive bowel sounds. No palpable organomegaly. MUSCULOSKELETAL: No joint swelling or deformity. EXTREMITIES: No cyanosis, clubbing, or pedal edema. NEUROLOGICAL: Gross neurological examination did not reveal any focal deficits. SKIN: Multiple stage I and stage II ulcerations in bilateral lower extremities in multiple healing stages, with multiple scabs noted as well - Labs CBC & Chem 7: 03/06/21 06:57 03/08/21 06:07 Labs: Abnormal Lab Results - Last 24 Hours (Table) 03/07/21 03/07/21 03/07/21 Range/Units 12:03 17:00 17:21 Sodium (137-145) mmol/L Potassium 5.5 H (3.5-5.1) mmol/L BUN (9-20) mg/dL Creatinine (0.66-1.25) mg/dL Glucose (74-99) mg/dL POC Glucose (mg/dL) 238 H 187 H (75-99) mg/dL Calcium (8.4-10.2) mg/dL Phosphorus (2.5-4.5) mg/dL Magnesium (1.6-2.3) mg/dL 03/07/21 03/08/21 03/08/21 Range/Units 20:00 03:33 06:07 Sodium 135 L (137-145) mmol/L Potassium 5.2 H (3.5-5.1) mmol/L BUN 106 H* (9-20) mg/dL Creatinine 5.66 H (0.66-1.25) mg/dL Glucose 113 H (74-99) mg/dL POC Glucose (mg/dL) 226 H 66 L (75-99) mg/dL Calcium 8.1 L (8.4-10.2) mg/dL Phosphorus 8.0 H (2.5-4.5) mg/dL Magnesium 2.6 H (1.6-2.3) mg/dL 03/08/21 Range/Units 06:12 Sodium (137-145) mmol/L Potassium (3.5-5.1) mmol/L BUN (9-20) mg/dL Creatinine (0.66-1.25) mg/dL Glucose (74-99) mg/dL POC Glucose (mg/dL) 117 H (75-99) mg/dL Calcium (8.4-10.2) mg/dL Phosphorus (2.5-4.5) mg/dL Magnesium (1.6-2.3) mg/dL Assessment and Plan Assessment: -Acute renal failure: Prerenal azotemia probably secondary to congestive heart failure or volume overload on admission, most likely cardiorenal. creatinine continues to worsen and nephrology following and patient is maintained on IV normal saline at 75 ML per hour and vascular consulted for temporary hemodialysis catheter placement as creatinine is 5.66 today. -Blurry vision probably secondary to hyperglycemia, improved with improvement of blood sugars continue with his home regimen of ozempic along with sliding scale insulin and long-acting added and will continue to monitor Accu-Cheks before meals and at bedtime closely. Patient is noncompliant with medications and diet restrictions. -Volume overload possibly congestive heart failure chronic diastolic dysfunction with acute exacerbation the exacerbation is secondary to fludrocortisone, patient to receive hemodialysis catheter today with nephrology following closely -Chronic kidney disease stage IV: Secondary to diabetic nephropathy -Autonomic dysfunction for which patient is on fludrocortisone which is being weaned off and will be discontinued -Type 2 diabetes mellitus uncontrolled elevated blood sugars: Patient will be continued on his home regimen along with sliding scale insulin and titration of this insulin depending on his blood sugars. -Multiple bilateral lower extremity ulcers in healing stages secondary to diabetic peripheral neuropathy -Congestive heart failure chronic diastolic dysfunction with acute exacerbation -Secondary pulmonary hypertension due to CHF -COPD without any acute exacerbation quit smoking years ago -DVT prophylaxis: Subcutaneous heparin -full code Plan: Continue gentle IV hydration and patient is scheduled to receive hemodialysis catheter and vascular surgery evaluated the patient and will be receiving right femoral temporary dialysis catheter to start treatment today with nephrology following closely. We'll repeat labs and continue to monitor blood sugars closely. Will discuss with nephrology further down the line about possibly requiring long-term hemodialysis in the outpatient setting. Patient is extremely noncompliant with medications and diet restrictions and will need extensive education and close follow-up in the outpatient setting. Further recommendations to follow based on the clinical course the patient. prognosis is guarded.
[2021-03-08 16:48] LABS: Hepatitis B Surface AB- Quant <3.5 mIU/mL; Hepatitis B Surface Antibody Non-Reactive (Non-Reactive); Hepatitis B Surface Antigen Non-Reactive (Non-Reactive)
[2021-03-08 16:50] LABS: Glucose,Whole Blood 151 mg/dL (75-99)
[2021-03-08] MEDS: SODIUM CHLORIDE 0.9% 1,000 ML IV SCH (19:10)
[2021-03-08 20:31] LABS: Glucose,Whole Blood 319 mg/dL (75-99)
[2021-03-08] MEDS: Semaglutide [Ozempic] 1 MG/0.75 ML Pen.Injctr SQ SCH (20:44)
[2021-03-08] MEDS: INSULIN DETEMIR (LEVEMIR) 100 UNIT/ML SYR SQ SCH (20:58)
[2021-03-08] MEDS: GABAPENTIN 100 MG CAP PO SCH (22:43)
[2021-03-09 06:07] LABS: Glucose,Whole Blood 88 mg/dL (75-99)
[2021-03-09] MEDS: INSULIN ASPART (NovoLOG) 100 UNIT/ML VIAL SQ SCH ×4 (06:12→21:27)
[2021-03-09] MEDS: PANTOPRAZOLE 40 MG TABLET PO SCH (06:15)
[2021-03-09] MEDS: SYMBICORT 80-4.5 MCG INHALER INHALATION SCH ×2 (07:47→16:47)
[2021-03-09] MEDS: HEPARIN SODIUM,PORCINE/PF 5,000 UNIT/0.5 ML SYRINGE SQ SCH ×2 (08:56→16:53)
[2021-03-09] MEDS: METOPROLOL TARTRATE 50 MG TAB PO SCH ×2 (08:56→21:27)
[2021-03-09] MEDS: GABAPENTIN 100 MG CAP PO SCH ×3 (08:56→21:27)
[2021-03-09] MEDS: ISOSORBIDE MONONITRATE ER 30 MG TAB.ER.24H PO SCH (08:56)
[2021-03-09] MEDS: SODIUM FERRIC GLUCONAT-SUCROSE 125 MG in SODIUM CHLORIDE 0.9% 100 ML IVPB SCH (08:56)
[2021-03-09] MEDS: DULoxetine HCL 60 MG CAPSULE.DR PO SCH (08:56)
[2021-03-09] MEDS: ATORVASTATIN 40 MG TAB PO SCH (08:56)
[2021-03-09] MEDS: amLODIPine 10 MG TAB PO SCH (08:56)
[2021-03-09] MEDS: ASPIRIN 81 MG PO SCH (08:57)
[2021-03-09] MEDS: TOBRAMYCIN 0.3% OPHTH OINT 3.5 GM TUBE BOTH EYES SCH ×3 (08:57→16:54)
--- NOTE | 2021-03-09 09:36 | P.PN ---
Subjective Patient is seen in follow-up for acute kidney injury on chronic kidney disease. No improvement in renal function. He is receiving IV fluids. Patient states he's been voiding but output has been low. Accurate I's and O's not done. Still having loose bowel movements. Vital signs are stable. General: The patient appeared well nourished and normally developed. HEENT: Head exam is unremarkable. Neck is without jugular venous distension. LUNGS: Breath sounds decreased. HEART: Rate and Rhythm are regular. ABDOMEN: Soft, no distention. EXTREMITITES: No edema. Chronic changes and wounds noted. Objective - Vital Signs Vital signs: Vital Signs Temp 98.4 F 03/09/21 08:00 Pulse 64 03/09/21 08:00 Resp 18 03/09/21 08:00 BP 147/74 03/09/21 08:00 Pulse Ox 94 L 03/09/21 08:00 Intake & Output 03/08/21 03/09/21 03/09/21 18:59 06:59 18:59 Intake Total 950 240 Output Total 0 Balance 950 240 Weight 91 kg Intake: Oral 950 240 Output: Hemodialysis 0 - Labs CBC & Chem 7: 03/06/21 06:57 03/08/21 06:07 Labs: Abnormal Lab Results - Last 24 Hours (Table) 03/08/21 03/08/21 03/08/21 Range/Units 11:36 16:48 20:20 POC Glucose (mg/dL) 212 H 151 H 319 H (75-99) mg/dL Assessment and Plan Plan: Assessment: 1. Acute kidney injury secondary to ATN secondary to diuresis, vomiting and diarrhea. Creatinine peaked at 5.66 this admission. Started on hemodialysis March 18 - has a right femoral catheter that was placed March 08. No evidence of urinary retention or hydronephrosis. 2. Chronic kidney disease stage IIIB secondary to diabetic kidney disease with baseline creatinine in the range of 2-2.5. 3. Diabetes mellitus. 4. Chronic diastolic CHF. 5. Mild hyperkalemia secondary to acute kidney injury. Better. 6. Anemia of chronic kidney disease. Iron deficiency noted. 7. Hyperphosphatemia secondary to acute kidney injury. Plan: Maintain normal saline at 50 mL an hour. Maintain IV iron. Second treatment of hemodialysis today and third treatment tomorrow. Monitor for renal recovery. Add PhosLo with meals. Strict I's and O's. Discussed with the nurse.
[2021-03-09 09:42] LABS: Basophils % (A) 1 %; Eosinophils # (A) 0.1 k/uL (0-0.7); Eosinophils % (A) 2 %; HCT 25.2 % (39.0-53.0); HGB 8.3 gm/dL (13.0-17.5); Lymphocytes # (A) 0.7 k/uL (1.0-4.8); Lymphocytes % (A) 10 %; MCH 28.3 pg (25.0-35.0); MCHC 32.8 g/dL (31.0-37.0); MCV 86.3 fL (80.0-100.0); Mean Platelet Volume 9.7; Monocytes # (A) 0.5 k/uL (0-1.0); Monocytes % (A) 7 %; Neutrophils # (A) 5.9 k/uL (1.3-7.7); Neutrophils % (A) 80 %; Platelet Count 239 k/uL (150-450); RBC 2.92 m/uL (4.30-5.90); RDW 15.5 % (11.5-15.5); WBC 7.4 k/uL (3.8-10.6)
[2021-03-09 10:00] LABS: Potassium 5.1 mmol/L (3.5-5.1)
--- NOTE | 2021-03-09 10:55 | CDI ---
Documentation Clarification Form Date: 03/09/2021 10:42:00 AM From: Joanna Ramires CCS, CCDS Admit Date: 03/05/2021 12:27:00 AM Patient Name: Marquez Squires Visit Number: [id number] Discharge Date: ATTENTION: The Clinical Documentation Specialists (CDI) and [facility] Coding Staff appreciate your assistance in clarifying documentation. Please respond to the clarification below the line at the bottom and electronically sign. The CDI & [facility] Coding staff will review the response and follow-up if needed. Please note: Queries are made part of the Legal Health Record. If you have any questions, please contact the author of this message via ITS. Dr. Tawanna Christine and/or Dr. Quintin Pollock: Conflicting documentation has been found in the medical record. Per the Attending Physician documentation throughout the record, the CKD Stage is documented as Stage IV. Per the Nephrology Consult on 03/05 the CKD Stage is Stage IV. Subsequent Nephrology Progress Notes the Stage is documented as Stage IIIb. As attending physician, please provide clarification. History/Risk Factors per the 03/05 H/P: CKD Stage IV secondary to Diabetic Nephropathy, Autonomic Dysfunction (nos), IDDM II, Multiple bilateral lower extremity ulcers, Diabetic Peripheral Neuropathy, Chronic Diastolic CHF, Secondary Pulmonary Hypertension, COPD, Former smoker. Clinical Indicators: Presented to the ED on 03/04 with Nausea, Vomiting, Diarrhea, SOB & blurred vision. ED Clinical Impression: CHF Exacerbation, Hyperglycemia, NIXON 03/04 LAB: GUN 89, Creatinine 5.44, GFR 11. 7/3 GFR 12, 03/07 GFR: 10, 03/08 GFR 11, 03/09 GFR 14 Historical GFR: 05/04/2017: >60 Treatment 03/04: IV Na Cl 1,000 mls @ 999 mls/hr q1H, IV Lasix, Insulin sq, IV Apresoline 03/08 Dialysis catheter inserted for Hemodialysis. Please clarify which diagnosis is most appropriate: [ ] CKD Stage 3b (GFR 30-44) [ ] CKD Stage 4 (GFR 15-29) [ ] CKD Stage 5 (GFR <15) (Template Last Revised: November 2020) CKD Stage 3b MTDD
[2021-03-09 11:42] LABS: Glucose,Whole Blood 69 mg/dL (75-99)
[2021-03-09 11:59] LABS: Glucose,Whole Blood 87 mg/dL (75-99)
[2021-03-09] MEDS: CALCIUM ACETATE 667 MG TAB PO SCH ×2 (12:32→16:54)
--- NOTE | 2021-03-09 12:58 | P.PN ---
Subjective Progress Note Date: 03/09/21 Principal diagnosis: Acute kidney injury requiring dialysis Patient seen and examined lying in bed. He is status post right femoral temporary hemodialysis catheter placement yesterday. He underwent hemodialysis treatment yesterday, and again plan for today and tomorrow. He denies any acute changes, no bleeding from the catheter site. Objective - Vital Signs Vital signs: Vital Signs Temp 98.4 F 03/09/21 08:00 Pulse 64 03/09/21 08:00 Resp 18 03/09/21 08:00 BP 147/74 03/09/21 08:00 Pulse Ox 94 L 03/09/21 08:00 Intake & Output 03/08/21 03/09/21 03/09/21 18:59 06:59 18:59 Intake Total 950 240 Output Total 0 Balance 950 240 Weight 91 kg Intake: Oral 950 240 Output: Hemodialysis 0 - Exam General appearance: The patient is alert, oriented, in no acute distress. HET: Head is normocephalic and atraumatic. Neck: Supple without lymphadenopathy. Trachea midline. Heart: S1 S2. Regular rate and rhythm. Lungs: Clear to auscultation. Abdomen: Soft, nontender, nondistended. Extremities: Normal skin color and turgor. Right groin with intact temporary hemodialysis catheter, no hematoma or bleeding noted. Neurological: No focal deficits. - Labs CBC & Chem 7: 03/09/21 09:28 03/09/21 09:28 Labs: Abnormal Lab Results - Last 24 Hours (Table) 03/08/21 03/08/21 03/08/21 Range/Units 11:36 16:48 20:20 RBC (4.30-5.90) m/uL Hgb (13.0-17.5) gm/dL Hct (39.0-53.0) % Lymphocytes # (1.0-4.8) k/uL Sodium (137-145) mmol/L BUN (9-20) mg/dL Creatinine (0.66-1.25) mg/dL POC Glucose (mg/dL) 212 H 151 H 319 H (75-99) mg/dL Calcium (8.4-10.2) mg/dL 03/09/21 03/09/21 Range/Units 09:28 09:28 RBC 2.92 L (4.30-5.90) m/uL Hgb 8.3 L (13.0-17.5) gm/dL Hct 25.2 L (39.0-53.0) % Lymphocytes # 0.7 L (1.0-4.8) k/uL Sodium 136 L (137-145) mmol/L BUN 87 H (9-20) mg/dL Creatinine 4.60 H (0.66-1.25) mg/dL POC Glucose (mg/dL) (75-99) mg/dL Calcium 8.0 L (8.4-10.2) mg/dL Assessment and Plan Assessment: 1. Acute on chronic renal failure requiring hemodialysis Plan: 1. Patient is status post right femoral hemodialysis catheter 2. Continue hemodialysis as ordered per nephrology Thank you for this consultation, we will sign off at this time. Please do not hesitate to contact us if patient will need long-term hemodialysis The impression and plan of care has been dictated as directed. I performed a history and examination of this patient, discussed the same with the dictator. I agree with the dictator's note ,documented as a scribe. Any additional findings or plans will be noted.
--- NOTE | 2021-03-09 13:55 | P.PN ---
Subjective Progress Note Date: 03/09/21 51-year-old male with multiple chronic medical problems came in with the blurry vision which started about a week ago. Patient is found to have uncontrolled blood sugars. Patient does have history of congestive heart failure chronic diastolic dysfunction was comparing of shortness of breath unable to get clear history of orthopnea paroxysmal nocturnal dyspnea it's very hard to get history from the patient. Patient the visual problem his blurriness in both eyes. Patient denied any fever chills denied any significant cough. Patient is on 0.1 mg twice a day of hydrocortisone for autonomic dysfunction as per the previous documentation in this autonomic dysfunction was believed to be secondary to diabetes mellitus. Patient does have chronic kidney disease stage IV with baseline creatinine of around 2.8 and present creatinine is around 5. Patient has multiple chronic ulcerations of bilateral lower extremities which are presently in healing stages, none of them appear to be infected. Patient has some hypervolemic hyponatremia as well. Chest x-ray did show pulmonary edema and patient's BNP is highly elevated 03/06/2021 patient vision is getting better patient blood sugars are still high patient is a semiglutide. Patient the potassium is 5.3 will order Kayexalate. and 80 mg of IV Lasix patient the creatinine remains stable at 5.28 nephrology is a valid in the patient patient is an 80 mg twice a day of IV Lasix instead of which patient doesn't have any good urine output at this time. Because of continued elevation of blood sugars will add a long-acting insulin 12 units. 03/07/2021 Patient doesn't have any significant urine output. Patient creatinine is bit worse today chest x-ray showing clearing CHF, nephrology evaluated the patient is started him on IV fluids at this time creatinine is 5.94. Patient most probably will end up requiring hemodialysis. Patient cannot have gabapentin because of his acute renal failure. Serum potassium is 5.3 03/08/2021 Patient is seen and evaluated in follow-up this morning currently without IV access and no one in-house available for midline and nursing staff attempting IV access. Patient's creatinine is worse today at 5.66 with a BUN of 122, potassium is 5.2, sodium is 135, magnesium is 2.6. Nephrology following closely and plans are for dialysis catheter placement today to initiate hemodialysis. Patient is agreeable to this and will receive temporary catheter placement and start treatments. Patient continues to be lethargic although arousable and verbalizes understanding of treatment moving forward. Patient is maintained on sliding scale along with long-acting and will continue to monitor Accu-Cheks before meals and at bedtime. Patient also continues on gentle IV hydration and cardiology following. 03/09/2021 Patient is seen in follow-up continues to be lethargic although easily arousable. Continues with loose stools and not making much urine. Patient received a temporary dialysis catheter in the right femoral region and received a dose of dialysis yesterday and will continue with hemodialysis today and possibly tomorrow as well and nephrology following closely. Creatinine slightly improved at 4.6 this morning with a BUN of 87, sodium is 136 with a potassium of 5.1. Hemoglobin is stable at 8.3. Patient is receiving IV iron transfusions. Vital signs are stable and patient is afebrile. Constitutional: Reports of fatigue, denied any fever. Cardio vascular: denied any chest pain, palpitations Gastrointestinal denied any nausea vomiting Pulmonary: Denied any shortness of breath cough Neurologic denied any new focal deficits Objective - Vital Signs Vital signs: Vital Signs Temp 98.1 F 03/09/21 04:00 Pulse 80 03/09/21 04:00 Resp 20 03/09/21 04:00 BP 135/67 03/09/21 04:00 Pulse Ox 96 03/09/21 04:00 Intake & Output 03/08/21 03/09/21 03/09/21 18:59 06:59 18:59 Intake Total 950 240 Output Total 0 Balance 950 240 Weight 91 kg Intake: Oral 950 240 Output: Hemodialysis 0 - Exam GENERAL: The patient is alert and oriented x3, lethargic although arousable, not in any acute distress. Well developed, well nourished. Disheveled appearing, unkempt HEENT: Pupils are round and equally reacting to light. EOMI, blurriness is better now. No scleral icterus. No conjunctival pallor. Normocephalic, atraumatic. No pharyngeal erythema. No thyromegaly. CARDIOVASCULAR: S1 and S2 present. No murmurs, rubs, or gallops. PULMONARY: Chest is clear to auscultation, no wheezing or crackles. ABDOMEN: Soft, nontender, nondistended, normoactive bowel sounds. No palpable organomegaly. MUSCULOSKELETAL: No joint swelling or deformity. EXTREMITIES: No cyanosis, clubbing, or pedal edema. Right groin temporary catheter placement for dialysis noted NEUROLOGICAL: Gross neurological examination did not reveal any focal deficits. SKIN: Multiple stage I and stage II ulcerations in bilateral lower extremities in multiple healing stages, with multiple scabs noted as well - Labs CBC & Chem 7: 03/09/21 09:28 03/09/21 09:28 Labs: Abnormal Lab Results - Last 24 Hours (Table) 03/08/21 03/08/21 03/08/21 Range/Units 11:36 16:48 20:20 POC Glucose (mg/dL) 212 H 151 H 319 H (75-99) mg/dL Assessment and Plan Assessment: -Acute renal failure: Prerenal azotemia probably secondary to congestive heart failure or volume overload on admission, most likely cardiorenal. Patient received temporary Port-A-Cath dialysis placement and received a dose of dialysis yesterday and again today with nephrology following closely. Creatinine slightly improved at 4.60 -Blurry vision probably secondary to hyperglycemia, improved with improvement of blood sugars continue with his home regimen of ozempic along with sliding scale insulin and long-acting added and will continue to monitor Accu-Cheks before meals and at bedtime closely. Patient is noncompliant with medications and diet restrictions. -Volume overload possibly congestive heart failure chronic diastolic dysfunction with acute exacerbation the exacerbation is secondary to fludrocortisone, patient to receive hemodialysis again today after receiving his first dose of hemodialysis yesterday with nephrology following closely -Chronic kidney disease stage 4: Secondary to diabetic nephropathy, received temporarily cath placement for hemodialysis and received a dose of hemodialysis yesterday and again today and nephrology is following closely -Autonomic dysfunction for which patient is on fludrocortisone which is being weaned off and will be discontinued -Type 2 diabetes mellitus uncontrolled elevated blood sugars: Patient will be continued on his home regimen along with sliding scale insulin and titration of this insulin depending on his blood sugars. -Multiple bilateral lower extremity ulcers in healing stages secondary to diabetic peripheral neuropathy -Congestive heart failure chronic diastolic dysfunction with acute exacerbation -Secondary pulmonary hypertension due to CHF -COPD without any acute exacerbation quit smoking years ago -DVT prophylaxis: Subcutaneous heparin -full code Plan: Continue gentle IV hydration and patient is scheduled to receive hemodialysis today again with nephrology following closely. Creatinine slightly improved at 4.60 with a BUN of 87 and potassium is 5.1. We'll repeat labs and continue to monitor blood sugars closely. Patient is extremely noncompliant with medications and diet restrictions and will need extensive education and close follow-up in the outpatient setting. Further recommendations to follow based on the clinical course the patient. prognosis is guarded.
[2021-03-09 16:47] LABS: Glucose,Whole Blood 102 mg/dL (75-99)
[2021-03-09 20:27] LABS: Glucose,Whole Blood 158 mg/dL (75-99)
[2021-03-10] MEDS: HEPARIN SODIUM,PORCINE/PF 5,000 UNIT/0.5 ML SYRINGE SQ SCH ×3 (00:03→16:35)
[2021-03-10] MEDS: SODIUM CHLORIDE 0.9% 1,000 ML IV SCH ×2 (00:15→06:31)
[2021-03-10] MEDS: INSULIN DETEMIR (LEVEMIR) 100 UNIT/ML SYR SQ SCH ×2 (00:16→21:34)
[2021-03-10] MEDS: TOBRAMYCIN 0.3% OPHTH OINT 3.5 GM TUBE BOTH EYES SCH ×6 (00:16→21:35)
[2021-03-10] MEDS: ACETAMINOPHEN TAB 325 MG TAB PO PRN (03:45)
[2021-03-10 06:21] LABS: Glucose,Whole Blood 208 mg/dL (75-99)
[2021-03-10] MEDS: INSULIN ASPART (NovoLOG) 100 UNIT/ML VIAL SQ SCH ×4 (06:30→21:34)
[2021-03-10] MEDS: PANTOPRAZOLE 40 MG TABLET PO SCH (06:30)
[2021-03-10] MEDS: CALCIUM ACETATE 667 MG TAB PO SCH ×3 (06:30→17:57)
[2021-03-10 07:38] LABS: Magnesium 2.1 mg/dL (1.6-2.3); Potassium 4.5 mmol/L (3.5-5.1)
[2021-03-10] MEDS: SYMBICORT 80-4.5 MCG INHALER INHALATION SCH ×2 (07:49→19:41)
--- NOTE | 2021-03-10 09:27 | P.PN ---
Subjective Patient is seen in follow-up for acute kidney injury on chronic kidney disease. No improvement in renal function. He is receiving IV fluids. Patient states he's been voiding but output has been low. Accurate I's and O's not done as he is also having diarrhea. Vital signs are stable. General: The patient appeared well nourished and normally developed. HEENT: Head exam is unremarkable. Neck is without jugular venous distension. LUNGS: Breath sounds decreased. HEART: Rate and Rhythm are regular. ABDOMEN: Soft, no distention. EXTREMITITES: No edema. Chronic changes and wounds noted. Objective - Vital Signs Vital signs: Vital Signs Temp 98.2 F 03/10/21 04:00 Pulse 70 03/10/21 04:00 Resp 18 03/10/21 04:00 BP 148/70 03/10/21 04:00 Pulse Ox 96 03/10/21 04:00 Intake & Output 03/09/21 03/10/21 03/10/21 18:59 06:59 18:59 Intake Total 720 100 480 Output Total 500 Balance 220 100 480 Weight 76 kg Intake: Oral 720 100 480 Output: Hemodialysis 500 Other: Voiding Method Toilet Urinal # Voids 1 # Bowel Movements 1 1 - Labs CBC & Chem 7: 03/09/21 09:28 03/10/21 07:01 Labs: Abnormal Lab Results - Last 24 Hours (Table) 03/09/21 03/09/21 03/09/21 Range/Units 09:28 09:28 11:40 RBC 2.92 L (4.30-5.90) m/uL Hgb 8.3 L (13.0-17.5) gm/dL Hct 25.2 L (39.0-53.0) % Lymphocytes # 0.7 L (1.0-4.8) k/uL Sodium 136 L (137-145) mmol/L BUN 87 H (9-20) mg/dL Creatinine 4.60 H (0.66-1.25) mg/dL Glucose (74-99) mg/dL POC Glucose (mg/dL) 69 L (75-99) mg/dL Calcium 8.0 L (8.4-10.2) mg/dL 03/09/21 03/09/21 03/10/21 Range/Units 16:45 20:25 06:20 RBC (4.30-5.90) m/uL Hgb (13.0-17.5) gm/dL Hct (39.0-53.0) % Lymphocytes # (1.0-4.8) k/uL Sodium (137-145) mmol/L BUN (9-20) mg/dL Creatinine (0.66-1.25) mg/dL Glucose (74-99) mg/dL POC Glucose (mg/dL) 102 H 158 H 208 H (75-99) mg/dL Calcium (8.4-10.2) mg/dL 03/10/21 Range/Units 07:01 RBC (4.30-5.90) m/uL Hgb (13.0-17.5) gm/dL Hct (39.0-53.0) % Lymphocytes # (1.0-4.8) k/uL Sodium 134 L (137-145) mmol/L BUN 59 H (9-20) mg/dL Creatinine 3.37 H (0.66-1.25) mg/dL Glucose 220 H (74-99) mg/dL POC Glucose (mg/dL) (75-99) mg/dL Calcium 8.0 L (8.4-10.2) mg/dL Assessment and Plan Plan: Assessment: 1. Acute kidney injury secondary to ATN secondary to diuresis, vomiting and diarrhea. Creatinine peaked at 5.66 this admission. Started on hemodialysis March 18 - has a right femoral catheter that was placed March 08. No evidence of urinary retention or hydronephrosis. 2. Chronic kidney disease stage IIIB secondary to diabetic kidney disease with baseline creatinine in the range of 2-2.5. 3. Diabetes mellitus. 4. Chronic diastolic CHF. 5. Mild hyperkalemia secondary to acute kidney injury. Better. 6. Anemia of chronic kidney disease. Iron deficiency noted. 7. Hyperphosphatemia secondary to acute kidney injury maintained on PhosLo. Plan: Maintain normal saline at 50 mL an hour. Maintain IV iron. Third treatment of hemodialysis today. Plan to hold tomorrow. Monitor for renal recovery.
[2021-03-10] MEDS: SODIUM FERRIC GLUCONAT-SUCROSE 125 MG in SODIUM CHLORIDE 0.9% 100 ML IVPB SCH (10:24)
[2021-03-10] MEDS: amLODIPine 10 MG TAB PO SCH (10:25)
[2021-03-10] MEDS: ISOSORBIDE MONONITRATE ER 30 MG TAB.ER.24H PO SCH (10:25)
[2021-03-10] MEDS: DULoxetine HCL 60 MG CAPSULE.DR PO SCH (10:25)
[2021-03-10] MEDS: ASPIRIN 81 MG PO SCH (10:25)
[2021-03-10] MEDS: METOPROLOL TARTRATE 50 MG TAB PO SCH ×2 (10:25→21:35)
[2021-03-10] MEDS: ATORVASTATIN 40 MG TAB PO SCH (10:25)
[2021-03-10] MEDS: GABAPENTIN 100 MG CAP PO SCH ×3 (10:25→21:35)
[2021-03-10 11:41] LABS: Glucose,Whole Blood 225 mg/dL (75-99)
[2021-03-10] MEDS: ONDANSETRON 4 MG TAB PO PRN (12:18)
[2021-03-10 16:45] LABS: Glucose,Whole Blood 177 mg/dL (75-99)
--- NOTE | 2021-03-10 20:42 | P.PN ---
Subjective Progress Note Date: 03/10/21 51-year-old male with multiple chronic medical problems came in with the blurry vision which started about a week ago. Patient is found to have uncontrolled blood sugars. Patient does have history of congestive heart failure chronic diastolic dysfunction was comparing of shortness of breath unable to get clear history of orthopnea paroxysmal nocturnal dyspnea it's very hard to get history from the patient. Patient the visual problem his blurriness in both eyes. Patient denied any fever chills denied any significant cough. Patient is on 0.1 mg twice a day of hydrocortisone for autonomic dysfunction as per the previous documentation in this autonomic dysfunction was believed to be secondary to diabetes mellitus. Patient does have chronic kidney disease stage IV with baseline creatinine of around 2.8 and present creatinine is around 5. Patient has multiple chronic ulcerations of bilateral lower extremities which are presently in healing stages, none of them appear to be infected. Patient has some hypervolemic hyponatremia as well. Chest x-ray did show pulmonary edema and patient's BNP is highly elevated 03/06/2021 patient vision is getting better patient blood sugars are still high patient is a semiglutide. Patient the potassium is 5.3 will order Kayexalate. and 80 mg of IV Lasix patient the creatinine remains stable at 5.28 nephrology is a valid in the patient patient is an 80 mg twice a day of IV Lasix instead of which patient doesn't have any good urine output at this time. Because of continued elevation of blood sugars will add a long-acting insulin 12 units. 03/07/2021 Patient doesn't have any significant urine output. Patient creatinine is bit worse today chest x-ray showing clearing CHF, nephrology evaluated the patient is started him on IV fluids at this time creatinine is 5.94. Patient most probably will end up requiring hemodialysis. Patient cannot have gabapentin because of his acute renal failure. Serum potassium is 5.3 03/08/2021 Patient is seen and evaluated in follow-up this morning currently without IV access and no one in-house available for midline and nursing staff attempting IV access. Patient's creatinine is worse today at 5.66 with a BUN of 122, potassium is 5.2, sodium is 135, magnesium is 2.6. Nephrology following closely and plans are for dialysis catheter placement today to initiate hemodialysis. Patient is agreeable to this and will receive temporary catheter placement and start treatments. Patient continues to be lethargic although arousable and verbalizes understanding of treatment moving forward. Patient is maintained on sliding scale along with long-acting and will continue to monitor Accu-Cheks before meals and at bedtime. Patient also continues on gentle IV hydration and cardiology following. 03/09/2021 Patient is seen in follow-up continues to be lethargic although easily arousable. Continues with loose stools and not making much urine. Patient received a temporary dialysis catheter in the right femoral region and received a dose of dialysis yesterday and will continue with hemodialysis today and possibly tomorrow as well and nephrology following closely. Creatinine slightly improved at 4.6 this morning with a BUN of 87, sodium is 136 with a potassium of 5.1. Hemoglobin is stable at 8.3. Patient is receiving IV iron transfusions. Vital signs are stable and patient is afebrile. 03/10/2021 Patient is seen in follow up and continues to have loose stools. Will add anti- diarrheal and check to ensure cdiff testing was negative. Patient continues on hemodialysis with another session today and will monitor labs closely. Creatinine improving at 3.37 with a BUN of 59. Nephrology following closely. Discussion is being had about close monitoring of kidney functions with possibly requiring permacath placement for continued hemodialysis in the outpatient setting. Will need to discuss further with nephrology. Patient continues to have restless legs and twitching although states has improved since starting requip. Patient continues on neurontin as well. Constitutional: Reports of fatigue, denied any fever. Cardio vascular: denied any chest pain, palpitations Gastrointestinal denied any nausea vomiting,reports continued loose stools Pulmonary: Denied any shortness of breath cough Neurologic denied any new focal deficits, reports continued bilateral lower leg muscle twitches Objective - Vital Signs Vital signs: Vital Signs Temp 98.2 F 03/10/21 04:00 Pulse 70 03/10/21 04:00 Resp 18 03/10/21 04:00 BP 148/70 03/10/21 04:00 Pulse Ox 96 03/10/21 04:00 Intake & Output 03/09/21 03/10/21 03/10/21 18:59 06:59 18:59 Intake Total 720 100 Output Total 500 Balance 220 100 Weight 76 kg Intake: Oral 720 100 Output: Hemodialysis 500 Other: Voiding Method Toilet Urinal # Voids 1 # Bowel Movements 1 - Exam GENERAL: The patient is alert and oriented x3, awake, not in any acute distress. Well developed, well nourished. Disheveled appearing, unkempt HEENT: Pupils are round and equally reacting to light. EOMI, blurriness is better now. No scleral icterus. No conjunctival pallor. Normocephalic, atraumatic. No pharyngeal erythema. No thyromegaly. CARDIOVASCULAR: S1 and S2 present. No murmurs, rubs, or gallops. PULMONARY: Chest is clear to auscultation, no wheezing or crackles. ABDOMEN: Soft, nontender, nondistended, normoactive bowel sounds. No palpable organomegaly. MUSCULOSKELETAL: No joint swelling or deformity. EXTREMITIES: No cyanosis, clubbing, or pedal edema. Right groin temporary catheter placement for dialysis noted NEUROLOGICAL: Gross neurological examination did not reveal any focal deficits. SKIN: Multiple stage I and stage II ulcerations in bilateral lower extremities in multiple healing stages, with multiple scabs noted as well - Labs CBC & Chem 7: 03/09/21 09:28 03/10/21 07:01 Labs: Abnormal Lab Results - Last 24 Hours (Table) 03/09/21 03/09/21 03/09/21 Range/Units 09:28 09:28 11:40 RBC 2.92 L (4.30-5.90) m/uL Hgb 8.3 L (13.0-17.5) gm/dL Hct 25.2 L (39.0-53.0) % Lymphocytes # 0.7 L (1.0-4.8) k/uL Sodium 136 L (137-145) mmol/L BUN 87 H (9-20) mg/dL Creatinine 4.60 H (0.66-1.25) mg/dL Glucose (74-99) mg/dL POC Glucose (mg/dL) 69 L (75-99) mg/dL Calcium 8.0 L (8.4-10.2) mg/dL 03/09/21 03/09/21 03/10/21 Range/Units 16:45 20:25 06:20 RBC (4.30-5.90) m/uL Hgb (13.0-17.5) gm/dL Hct (39.0-53.0) % Lymphocytes # (1.0-4.8) k/uL Sodium (137-145) mmol/L BUN (9-20) mg/dL Creatinine (0.66-1.25) mg/dL Glucose (74-99) mg/dL POC Glucose (mg/dL) 102 H 158 H 208 H (75-99) mg/dL Calcium (8.4-10.2) mg/dL 03/10/21 Range/Units 07:01 RBC (4.30-5.90) m/uL Hgb (13.0-17.5) gm/dL Hct (39.0-53.0) % Lymphocytes # (1.0-4.8) k/uL Sodium 134 L (137-145) mmol/L BUN 59 H (9-20) mg/dL Creatinine 3.37 H (0.66-1.25) mg/dL Glucose 220 H (74-99) mg/dL POC Glucose (mg/dL) (75-99) mg/dL Calcium 8.0 L (8.4-10.2) mg/dL Assessment and Plan Assessment: -Acute renal failure: Prerenal azotemia probably secondary to congestive heart failure or volume overload on admission, most likely cardiorenal. Patient received temporary Port-A-Cath dialysis placement and undergoing hemodialysis daily and again today with nephrology following closely. Creatinine improving. -Possible restless leg syndrome; patient continues with lower extremity muscle twitching which is increased at night and was given Requip with improvement and will continue with Requip for now -Blurry vision probably secondary to hyperglycemia, improved with improvement of blood sugars continue with his home regimen of ozempic along with sliding scale insulin and long-acting added and will continue to monitor Accu-Cheks before meals and at bedtime closely. Patient is noncompliant with medications and diet restrictions. -continued diarrhea -Volume overload possibly congestive heart failure chronic diastolic dysfunction with acute exacerbation the exacerbation is secondary to fludrocortisone, patient to receive hemodialysis again today with nephrology following closely -Chronic kidney disease stage 4: Secondary to diabetic nephropathy, received temporarily cath placement for hemodialysis and received a dose of hemodialysis yesterday and again today and nephrology is following closely. Will need to discuss with nephrology about possible permanent catheter placement for outpatient dialysis. -Autonomic dysfunction for which patient is on fludrocortisone which is being weaned off and will be discontinued -Type 2 diabetes mellitus uncontrolled elevated blood sugars: Patient will be continued on his home regimen along with sliding scale insulin and titration of this insulin depending on his blood sugars. -Multiple bilateral lower extremity ulcers in healing stages secondary to diabetic peripheral neuropathy -Congestive heart failure chronic diastolic dysfunction with acute exacerbation -Secondary pulmonary hypertension due to CHF -COPD without any acute exacerbation quit smoking years ago -DVT prophylaxis: Subcutaneous heparin -full code Plan: Continue gentle IV hydration and patient is scheduled to receive hemodialysis today again with nephrology following closely. Creatinine improving. We'll repeat labs and continue to monitor blood sugars closely. Patient is extremely noncompliant with medications and diet restrictions and will need extensive education and close follow-up in the outpatient setting. Lengthy discussion had again with patient about diet and medication compliance. Will need to discuss with nephrology about needing outpatient hemodialysis. Cdiff was negative and will add imodium and questran for diarrhea. Further recommendations to follow based on the clinical course the patient. prognosis is guarded.
[2021-03-10] MEDS ORDERED: LOPERAMIDE 2 MG CAP PO PRN (20:44)
[2021-03-10] MEDS ORDERED: GABAPENTIN 100 MG CAP PO PRN (20:44)
[2021-03-10 20:46] LABS: Glucose,Whole Blood 204 mg/dL (75-99)
[2021-03-11] MEDS: HEPARIN SODIUM,PORCINE/PF 5,000 UNIT/0.5 ML SYRINGE SQ SCH ×4 (00:13→23:08)
[2021-03-11] MEDS: ACETAMINOPHEN TAB 325 MG TAB PO PRN (00:14)
[2021-03-11] MEDS: SODIUM CHLORIDE 0.9% 1,000 ML IV SCH ×2 (04:42→23:08)
[2021-03-11 06:00] LABS: Glucose,Whole Blood 118 mg/dL (75-99)
[2021-03-11] MEDS: INSULIN ASPART (NovoLOG) 100 UNIT/ML VIAL SQ SCH ×4 (06:04→21:00)
[2021-03-11] MEDS: CALCIUM ACETATE 667 MG TAB PO SCH ×3 (06:16→16:41)
[2021-03-11] MEDS: PANTOPRAZOLE 40 MG TABLET PO SCH (06:16)
[2021-03-11 08:22] LABS: Basophils # (A) 0.1 k/uL (0-0.2); Basophils % (A) 1 %; Eosinophils # (A) 0.2 k/uL (0-0.7); Eosinophils % (A) 3 %; HGB 8.6 gm/dL (13.0-17.5); Lymphocytes % (A) 14 %; MCH 29.1 pg (25.0-35.0); MCHC 34.2 g/dL (31.0-37.0); MCV 85.1 fL (80.0-100.0); Mean Platelet Volume 8.2; Monocytes # (A) 0.6 k/uL (0-1.0); Monocytes % (A) 8 %; Neutrophils # (A) 5.2 k/uL (1.3-7.7); Neutrophils % (A) 74 %; Platelet Count 250 k/uL (150-450); RBC 2.94 m/uL (4.30-5.90); RDW 15.1 % (11.5-15.5); WBC 7.1 k/uL (3.8-10.6)
[2021-03-11 08:30] LABS: Potassium 4.5 mmol/L (3.5-5.1)
[2021-03-11] MEDS: ATORVASTATIN 40 MG TAB PO SCH (08:48)
[2021-03-11] MEDS: GABAPENTIN 100 MG CAP PO SCH ×3 (08:48→21:32)
[2021-03-11] MEDS: DULoxetine HCL 60 MG CAPSULE.DR PO SCH (08:48)
[2021-03-11] MEDS: ASPIRIN 81 MG PO SCH (08:48)
[2021-03-11] MEDS: amLODIPine 10 MG TAB PO SCH (08:48)
[2021-03-11] MEDS: ISOSORBIDE MONONITRATE ER 30 MG TAB.ER.24H PO SCH (08:49)
[2021-03-11] MEDS: TOBRAMYCIN 0.3% OPHTH OINT 3.5 GM TUBE BOTH EYES SCH ×3 (08:49→17:33)
[2021-03-11] MEDS: METOPROLOL TARTRATE 50 MG TAB PO SCH ×2 (08:49→21:00)
[2021-03-11] MEDS: CHOLESTYRAMINE (WITH SUGAR) 4 GM PACKET PO SCH ×2 (08:49→17:33)
[2021-03-11] MEDS: SYMBICORT 80-4.5 MCG INHALER INHALATION SCH ×2 (08:52→19:25)
--- NOTE | 2021-03-11 09:23 | P.PN ---
Subjective Patient is seen in follow-up for acute kidney injury on chronic kidney disease. No improvement in renal function. He is receiving IV fluids. Patient states he's been voiding but output has been low. Diarrhea improved. Overall feels better today. Vital signs are stable. General: The patient appeared well nourished and normally developed. HEENT: Head exam is unremarkable. Neck is without jugular venous distension. LUNGS: Breath sounds decreased. HEART: Rate and Rhythm are regular. ABDOMEN: Soft, no distention. EXTREMITITES: No edema. Chronic changes and wounds noted. Objective - Vital Signs Vital signs: Vital Signs Temp 98.0 F 03/11/21 08:00 Pulse 68 03/11/21 08:00 Resp 16 03/11/21 08:00 BP 143/75 03/11/21 08:00 Pulse Ox 95 03/11/21 08:52 Intake & Output 03/10/21 03/11/21 03/11/21 18:59 06:59 18:59 Intake Total 1220 240 Balance 1220 240 Weight 89 kg Intake: Oral 720 240 Hemodialysis 500 Other: Voiding Method Toilet Toilet Toilet Urinal Urinal Urinal # Bowel Movements 1 - Labs CBC & Chem 7: 03/11/21 07:15 03/11/21 07:15 Labs: Abnormal Lab Results - Last 24 Hours (Table) 03/10/21 03/10/21 03/10/21 Range/Units 11:37 16:43 20:44 RBC (4.30-5.90) m/uL Hgb (13.0-17.5) gm/dL Hct (39.0-53.0) % Sodium (137-145) mmol/L Carbon Dioxide (22-30) mmol/L BUN (9-20) mg/dL Creatinine (0.66-1.25) mg/dL POC Glucose (mg/dL) 225 H 177 H 204 H (75-99) mg/dL Calcium (8.4-10.2) mg/dL 03/11/21 03/11/21 03/11/21 Range/Units 05:59 07:15 07:15 RBC 2.94 L (4.30-5.90) m/uL Hgb 8.6 L (13.0-17.5) gm/dL Hct 25.0 L (39.0-53.0) % Sodium 136 L (137-145) mmol/L Carbon Dioxide 32 H (22-30) mmol/L BUN 42 H (9-20) mg/dL Creatinine 3.16 H (0.66-1.25) mg/dL POC Glucose (mg/dL) 118 H (75-99) mg/dL Calcium 8.0 L (8.4-10.2) mg/dL Assessment and Plan Plan: Assessment: 1. Acute kidney injury secondary to ATN secondary to diuresis, vomiting and diarrhea. Creatinine peaked at 5.66 this admission. Started on hemodialysis March 18 - has a right femoral catheter that was placed March 08. No evidence of urinary retention or hydronephrosis. 2. Chronic kidney disease stage IIIB secondary to diabetic kidney disease with baseline creatinine in the range of 2-2.5. 3. Diabetes mellitus. 4. Chronic diastolic CHF. 5. Mild hyperkalemia secondary to acute kidney injury. Better. 6. Anemia of chronic kidney disease. Iron deficiency noted - s/p IV iron . 7. Hyperphosphatemia secondary to acute kidney injury maintained on PhosLo. Plan: Maintain normal saline at 50 mL an hour. Hold hemodialysis today. Add Aranesp. Monitor for renal recovery.
[2021-03-11] MEDS: DARBEPOETIN ALFA 40 MCG/0.4 ML SYRINGE SQ SCH (11:00)
[2021-03-11 11:44] LABS: Glucose,Whole Blood 122 mg/dL (75-99)
--- NOTE | 2021-03-11 14:35 | P.PN ---
Subjective Progress Note Date: 03/11/21 51-year-old male with multiple chronic medical problems came in with the blurry vision which started about a week ago. Patient is found to have uncontrolled blood sugars. Patient does have history of congestive heart failure chronic diastolic dysfunction was comparing of shortness of breath unable to get clear history of orthopnea paroxysmal nocturnal dyspnea it's very hard to get history from the patient. Patient the visual problem his blurriness in both eyes. Patient denied any fever chills denied any significant cough. Patient is on 0.1 mg twice a day of hydrocortisone for autonomic dysfunction as per the previous documentation in this autonomic dysfunction was believed to be secondary to diabetes mellitus. Patient does have chronic kidney disease stage IV with baseline creatinine of around 2.8 and present creatinine is around 5. Patient has multiple chronic ulcerations of bilateral lower extremities which are presently in healing stages, none of them appear to be infected. Patient has some hypervolemic hyponatremia as well. Chest x-ray did show pulmonary edema and patient's BNP is highly elevated 03/06/2021 patient vision is getting better patient blood sugars are still high patient is a semiglutide. Patient the potassium is 5.3 will order Kayexalate. and 80 mg of IV Lasix patient the creatinine remains stable at 5.28 nephrology is a valid in the patient patient is an 80 mg twice a day of IV Lasix instead of which patient doesn't have any good urine output at this time. Because of continued elevation of blood sugars will add a long-acting insulin 12 units. 03/07/2021 Patient doesn't have any significant urine output. Patient creatinine is bit worse today chest x-ray showing clearing CHF, nephrology evaluated the patient is started him on IV fluids at this time creatinine is 5.94. Patient most probably will end up requiring hemodialysis. Patient cannot have gabapentin because of his acute renal failure. Serum potassium is 5.3 03/08/2021 Patient is seen and evaluated in follow-up this morning currently without IV access and no one in-house available for midline and nursing staff attempting IV access. Patient's creatinine is worse today at 5.66 with a BUN of 122, potassium is 5.2, sodium is 135, magnesium is 2.6. Nephrology following closely and plans are for dialysis catheter placement today to initiate hemodialysis. Patient is agreeable to this and will receive temporary catheter placement and start treatments. Patient continues to be lethargic although arousable and verbalizes understanding of treatment moving forward. Patient is maintained on sliding scale along with long-acting and will continue to monitor Accu-Cheks before meals and at bedtime. Patient also continues on gentle IV hydration and cardiology following. 03/09/2021 Patient is seen in follow-up continues to be lethargic although easily arousable. Continues with loose stools and not making much urine. Patient received a temporary dialysis catheter in the right femoral region and received a dose of dialysis yesterday and will continue with hemodialysis today and possibly tomorrow as well and nephrology following closely. Creatinine slightly improved at 4.6 this morning with a BUN of 87, sodium is 136 with a potassium of 5.1. Hemoglobin is stable at 8.3. Patient is receiving IV iron transfusions. Vital signs are stable and patient is afebrile. 03/10/2021 Patient is seen in follow up and continues to have loose stools. Will add anti- diarrheal and check to ensure cdiff testing was negative. Patient continues on hemodialysis with another session today and will monitor labs closely. Creatinine improving at 3.37 with a BUN of 59. Nephrology following closely. Discussion is being had about close monitoring of kidney functions with possibly requiring permacath placement for continued hemodialysis in the outpatient setting. Will need to discuss further with nephrology. Patient continues to have restless legs and twitching although states has improved since starting requip. Patient continues on neurontin as well. 03/11/2021 Patient is seen in follow-up and evaluated this morning with no acute overnight issues. States the diarrhea has resolved and is urinating although at a decreased output. Patient denies any dysuria or retention. Patient has been receiving hemodialysis and will not be receiving it today with nephrology following closely. Patient contains on gentle IV hydration of normal saline 50 mL per hour and will continue. White blood count is 7.1 and hemoglobin is stable at 8.6, sodium is 136 with a potassium of 4.5, BUN is 42 and current creatinine is 3.16. Blood sugars were controlled at this time. Patient denies any vomiting although is occasionally having some intermittent periods of nausea and has Zofran as needed. Constitutional: Reports of fatigue, denied any fever. Cardio vascular: denied any chest pain, palpitations Gastrointestinal denied any vomiting, reports occasional periods of nausea, reports diarrhea has resolved Pulmonary: Denied any shortness of breath cough Neurologic denied any new focal deficits Objective - Vital Signs Vital signs: Vital Signs Temp 98.0 F 03/11/21 08:00 Pulse 68 03/11/21 08:00 Resp 16 03/11/21 08:00 BP 143/75 03/11/21 08:00 Pulse Ox 95 03/11/21 08:52 Intake & Output 03/10/21 03/11/21 03/11/21 18:59 06:59 18:59 Intake Total 1220 240 Balance 1220 240 Weight 89 kg Intake: Oral 720 240 Hemodialysis 500 Other: Voiding Method Toilet Toilet Toilet Urinal Urinal Urinal # Bowel Movements 1 - Exam GENERAL: The patient is alert and oriented x3, awake, not in any acute distress. Well developed, well nourished. Disheveled appearing, unkempt HEENT: Pupils are round and equally reacting to light. EOMI, blurriness is better now. No scleral icterus. No conjunctival pallor. Normocephalic, a traumatic. No pharyngeal erythema. No thyromegaly. CARDIOVASCULAR: S1 and S2 present. No murmurs, rubs, or gallops. PULMONARY: Chest is clear to auscultation, no wheezing or crackles. ABDOMEN: Soft, nontender, nondistended, normoactive bowel sounds. No palpable organomegaly. MUSCULOSKELETAL: No joint swelling or deformity. EXTREMITIES: No cyanosis, clubbing, or pedal edema. Right groin temporary catheter placement for dialysis noted NEUROLOGICAL: Gross neurological examination did not reveal any focal deficits. SKIN: Multiple stage I and stage II ulcerations in bilateral lower extremities in multiple healing stages, with multiple scabs noted as well - Labs CBC & Chem 7: 03/11/21 07:15 03/11/21 07:15 Labs: Abnormal Lab Results - Last 24 Hours (Table) 03/10/21 03/10/21 03/10/21 Range/Units 11:37 16:43 20:44 RBC (4.30-5.90) m/uL Hgb (13.0-17.5) gm/dL Hct (39.0-53.0) % Sodium (137-145) mmol/L Carbon Dioxide (22-30) mmol/L BUN (9-20) mg/dL Creatinine (0.66-1.25) mg/dL POC Glucose (mg/dL) 225 H 177 H 204 H (75-99) mg/dL Calcium (8.4-10.2) mg/dL 03/11/21 03/11/21 03/11/21 Range/Units 05:59 07:15 07:15 RBC 2.94 L (4.30-5.90) m/uL Hgb 8.6 L (13.0-17.5) gm/dL Hct 25.0 L (39.0-53.0) % Sodium 136 L (137-145) mmol/L Carbon Dioxide 32 H (22-30) mmol/L BUN 42 H (9-20) mg/dL Creatinine 3.16 H (0.66-1.25) mg/dL POC Glucose (mg/dL) 118 H (75-99) mg/dL Calcium 8.0 L (8.4-10.2) mg/dL Assessment and Plan Assessment: -Acute renal failure: Prerenal azotemia probably secondary to congestive heart failure or volume overload on admission, most likely cardiorenal. Patient received temporary Port-A-Cath dialysis placement and has been undergoing hemodialysis daily will not be having a treatment today with possible hemodialysis tomorrow. Creatinine is 3.16 with a BUN of 42 today. -Possible restless leg syndrome; patient continues with lower extremity muscle twitching which is increased at night and was given Requip with improvement and will continue with Requip and increase dose slightly, continue gabapentin as well -Blurry vision probably secondary to hyperglycemia, improved -diarrhea, resolved may use Imodium and/or Questran as needed -Volume overload possibly congestive heart failure chronic diastolic dysfunction with acute exacerbation the exacerbation is secondary to fludrocortisone, patient has been receiving hemodialysis with nephrology following closely -Chronic kidney disease stage 4: Secondary to diabetic nephropathy, received temporarily cath placement for hemodialysis and received a dose of hemodialysis yesterday and be taking a break from hemodialysis today. nephrology is following closely. Will need to discuss with nephrology about possible permanent catheter placement for outpatient dialysis. -Autonomic dysfunction for which patient is on fludrocortisone which is being weaned off and will be discontinued -Type 2 diabetes mellitus uncontrolled elevated blood sugars: Patient will be continued on his home regimen along with sliding scale insulin and titration of this insulin depending on his blood sugars. -Multiple bilateral lower extremity ulcers in healing stages secondary to diabetic peripheral neuropathy -Congestive heart failure chronic diastolic dysfunction with acute exacerbation -Secondary pulmonary hypertension due to CHF -COPD without any acute exacerbation quit smoking years ago -DVT prophylaxis: Subcutaneous heparin -full code Plan: Continue gentle IV hydration and patient is maintained on hemodialysis and taking a break today with nephrology following closely. Creatinine minimally improving. We'll repeat labs and continue to monitor blood sugars closely. Patient is extremely noncompliant with medications and diet restrictions and will need extensive education and close follow-up in the outpatient setting. Patient states diarrhea has resolved and continue with Questran and Imodium as needed. Lengthy discussion had again with patient about diet and medication compliance. Will need to discuss with nephrology about needing outpatient hemodialysis. Further recommendations to follow based on the clinical course the patient. prognosis is guarded.
[2021-03-11 16:57] LABS: Glucose,Whole Blood 161 mg/dL (75-99)
[2021-03-11 19:41] LABS: Glucose,Whole Blood 284 mg/dL (75-99)
[2021-03-11] MEDS: INSULIN DETEMIR (LEVEMIR) 100 UNIT/ML SYR SQ SCH (21:00)
[2021-03-12 06:26] LABS: Glucose,Whole Blood 89 mg/dL (75-99)
[2021-03-12] MEDS: INSULIN ASPART (NovoLOG) 100 UNIT/ML VIAL SQ SCH ×4 (06:28→21:01)
[2021-03-12] MEDS: PANTOPRAZOLE 40 MG TABLET PO SCH (06:29)
[2021-03-12] MEDS: CALCIUM ACETATE 667 MG TAB PO SCH ×3 (06:29→17:23)
[2021-03-12] MEDS: SYMBICORT 80-4.5 MCG INHALER INHALATION SCH ×2 (07:28→19:52)
[2021-03-12 09:02] LABS: Magnesium 2.1 mg/dL (1.6-2.3); Potassium 4.8 mmol/L (3.5-5.1)
[2021-03-12] MEDS: DULoxetine HCL 60 MG CAPSULE.DR PO SCH (09:34)
[2021-03-12] MEDS: ATORVASTATIN 40 MG TAB PO SCH (09:34)
[2021-03-12] MEDS: METOPROLOL TARTRATE 50 MG TAB PO SCH ×2 (09:34→21:00)
[2021-03-12] MEDS: amLODIPine 10 MG TAB PO SCH (09:34)
[2021-03-12] MEDS: ISOSORBIDE MONONITRATE ER 30 MG TAB.ER.24H PO SCH (09:34)
[2021-03-12] MEDS: GABAPENTIN 100 MG CAP PO SCH ×3 (09:34→21:01)
[2021-03-12] MEDS: ASPIRIN 81 MG PO SCH (09:34)
[2021-03-12] MEDS: HEPARIN SODIUM,PORCINE/PF 5,000 UNIT/0.5 ML SYRINGE SQ SCH ×3 (09:34→23:14)
[2021-03-12] MEDS: CHOLESTYRAMINE (WITH SUGAR) 4 GM PACKET PO SCH ×2 (09:35→17:23)
[2021-03-12] MEDS: TOBRAMYCIN 0.3% OPHTH OINT 3.5 GM TUBE BOTH EYES SCH ×4 (09:39→21:01)
--- NOTE | 2021-03-12 11:05 | P.PN ---
Subjective Progress Note Date: 03/12/21 Principal diagnosis: Acute kidney injury requiring dialysis She was seen and examined lying in bed. We've been asked to see patient to put in a permanent tunneled dialysis catheter. Patient did not receive hemodialysis yesterday and his kidney function worsened, therefore nephrology was likely tunneled catheter placed. Objective - Vital Signs Vital signs: Vital Signs Temp 98.7 F 03/12/21 08:00 Pulse 69 03/12/21 08:00 Resp 18 03/12/21 08:00 BP 165/83 03/12/21 08:00 Pulse Ox 95 03/12/21 08:00 Intake & Output 03/11/21 03/12/21 03/12/21 18:59 06:59 18:59 Intake Total 740 480 Balance 740 480 Weight 89 kg 90 kg Intake: Oral 740 480 Other: Voiding Method Toilet Toilet Toilet Urinal Urinal Urinal - Exam General appearance: The patient is alert, oriented, in no acute distress. HET: Head is normocephalic and atraumatic. Neck: Supple without lymphadenopathy. Trachea midline. Heart: S1 S2. Regular rate and rhythm. Lungs: Clear to auscultation. Abdomen: Soft, nontender, nondistended. Extremities: Normal skin color and turgor. Right groin with intact temporary hemodialysis catheter, no hematoma or bleeding noted. Neurological: No focal deficits. - Labs CBC & Chem 7: 03/11/21 07:15 03/12/21 07:27 Labs: Abnormal Lab Results - Last 24 Hours (Table) 03/11/21 03/11/21 03/11/21 Range/Units 11:37 16:55 19:39 Sodium (137-145) mmol/L BUN (9-20) mg/dL Creatinine (0.66-1.25) mg/dL Glucose (74-99) mg/dL POC Glucose (mg/dL) 122 H 161 H 284 H (75-99) mg/dL Calcium (8.4-10.2) mg/dL 03/12/21 Range/Units 07:27 Sodium 135 L (137-145) mmol/L BUN 50 H (9-20) mg/dL Creatinine 3.96 H (0.66-1.25) mg/dL Glucose 103 H (74-99) mg/dL POC Glucose (mg/dL) (75-99) mg/dL Calcium 8.0 L (8.4-10.2) mg/dL Assessment and Plan Assessment: 1. Acute on chronic renal failure requiring hemodialysis 2. Diabetes mellitus Plan: 1. Patient is status post right femoral hemodialysis catheter03/08/21 2. Continue hemodialysis as ordered per nephrology 3. Kidney function worsening without hemodialysis, nephrology would like a tunneled hemodialysis catheter placed for long-term hemodialysis. Patient will be scheduled this afternoon. The impression and plan of care has been dictated as directed. I performed a history and examination of this patient, discussed the same with the dictator. I agree with the dictator's note ,documented as a scribe. Any additional findings or plans will be noted.
--- NOTE | 2021-03-12 11:36 | P.PN ---
Subjective Patient is seen in follow-up for acute kidney injury on chronic kidney disease. No improvement in renal function. He is receiving IV fluids. Urine output remains low. Diarrhea improved. Vital signs are stable. General: The patient appeared well nourished and normally developed. HEENT: Head exam is unremarkable. Neck is without jugular venous distension. LUNGS: Breath sounds decreased. HEART: Rate and Rhythm are regular. ABDOMEN: Soft, no distention. EXTREMITITES: No edema. Chronic changes and wounds noted. Objective - Vital Signs Vital signs: Vital Signs Temp 98.7 F 03/12/21 08:00 Pulse 69 03/12/21 08:00 Resp 18 03/12/21 08:00 BP 165/83 03/12/21 08:00 Pulse Ox 95 03/12/21 08:00 Intake & Output 03/11/21 03/12/21 03/12/21 18:59 06:59 18:59 Intake Total 740 480 Balance 740 480 Weight 89 kg 90 kg Intake: Oral 740 480 Other: Voiding Method Toilet Toilet Toilet Urinal Urinal Urinal - Labs CBC & Chem 7: 03/11/21 07:15 03/12/21 07:27 Labs: Abnormal Lab Results - Last 24 Hours (Table) 03/11/21 03/11/21 03/11/21 Range/Units 11:37 16:55 19:39 Sodium (137-145) mmol/L BUN (9-20) mg/dL Creatinine (0.66-1.25) mg/dL Glucose (74-99) mg/dL POC Glucose (mg/dL) 122 H 161 H 284 H (75-99) mg/dL Calcium (8.4-10.2) mg/dL 03/12/21 Range/Units 07:27 Sodium 135 L (137-145) mmol/L BUN 50 H (9-20) mg/dL Creatinine 3.96 H (0.66-1.25) mg/dL Glucose 103 H (74-99) mg/dL POC Glucose (mg/dL) (75-99) mg/dL Calcium 8.0 L (8.4-10.2) mg/dL Assessment and Plan Plan: Assessment: 1. Acute kidney injury secondary to ATN secondary to diuresis, vomiting and diarrhea. Creatinine peaked at 5.66 this admission. Started on hemodialysis March 18 - has a right femoral catheter that was placed March 08. No evidence of urinary retention or hydronephrosis. Dialysis health March 11 and creatinine is up to 3.96 today. 2. Chronic kidney disease stage IIIB secondary to diabetic kidney disease with baseline creatinine in the range of 2-2.5. 3. Diabetes mellitus. 4. Chronic diastolic CHF. 5. Mild hyperkalemia secondary to acute kidney injury. Better. 6. Anemia of chronic kidney disease. Iron deficiency noted - s/p IV iron. Maintained on Aranesp. 7. Hyperphosphatemia secondary to acute kidney injury maintained on PhosLo. Plan: Maintain normal saline at 50 mL an hour. Hemodialysis today. Permacath scheduled for tomorrow. Outpatient dialysis to be set up by sample case porter. Monitor for renal recovery outpatient.
[2021-03-12 11:41] LABS: Glucose,Whole Blood 167 mg/dL (75-99)
--- NOTE | 2021-03-12 14:56 | P.PN ---
Subjective Progress Note Date: 03/12/21 51-year-old male with multiple chronic medical problems came in with the blurry vision which started about a week ago. Patient is found to have uncontrolled blood sugars. Patient does have history of congestive heart failure chronic diastolic dysfunction was comparing of shortness of breath unable to get clear history of orthopnea paroxysmal nocturnal dyspnea it's very hard to get history from the patient. Patient the visual problem his blurriness in both eyes. Patient denied any fever chills denied any significant cough. Patient is on 0.1 mg twice a day of hydrocortisone for autonomic dysfunction as per the previous documentation in this autonomic dysfunction was believed to be secondary to diabetes mellitus. Patient does have chronic kidney disease stage IV with baseline creatinine of around 2.8 and present creatinine is around 5. Patient has multiple chronic ulcerations of bilateral lower extremities which are presently in healing stages, none of them appear to be infected. Patient has some hypervolemic hyponatremia as well. Chest x-ray did show pulmonary edema and patient's BNP is highly elevated 03/06/2021 patient vision is getting better patient blood sugars are still high patient is a semiglutide. Patient the potassium is 5.3 will order Kayexalate. and 80 mg of IV Lasix patient the creatinine remains stable at 5.28 nephrology is a valid in the patient patient is an 80 mg twice a day of IV Lasix instead of which patient doesn't have any good urine output at this time. Because of continued elevation of blood sugars will add a long-acting insulin 12 units. 03/07/2021 Patient doesn't have any significant urine output. Patient creatinine is bit worse today chest x-ray showing clearing CHF, nephrology evaluated the patient is started him on IV fluids at this time creatinine is 5.94. Patient most probably will end up requiring hemodialysis. Patient cannot have gabapentin because of his acute renal failure. Serum potassium is 5.3 03/08/2021 Patient is seen and evaluated in follow-up this morning currently without IV access and no one in-house available for midline and nursing staff attempting IV access. Patient's creatinine is worse today at 5.66 with a BUN of 122, potassium is 5.2, sodium is 135, magnesium is 2.6. Nephrology following closely and plans are for dialysis catheter placement today to initiate hemodialysis. Patient is agreeable to this and will receive temporary catheter placement and start treatments. Patient continues to be lethargic although arousable and verbalizes understanding of treatment moving forward. Patient is maintained on sliding scale along with long-acting and will continue to monitor Accu-Cheks before meals and at bedtime. Patient also continues on gentle IV hydration and cardiology following. 03/09/2021 Patient is seen in follow-up continues to be lethargic although easily arousable. Continues with loose stools and not making much urine. Patient received a temporary dialysis catheter in the right femoral region and received a dose of dialysis yesterday and will continue with hemodialysis today and possibly tomorrow as well and nephrology following closely. Creatinine slightly improved at 4.6 this morning with a BUN of 87, sodium is 136 with a potassium of 5.1. Hemoglobin is stable at 8.3. Patient is receiving IV iron transfusions. Vital signs are stable and patient is afebrile. 03/10/2021 Patient is seen in follow up and continues to have loose stools. Will add anti- diarrheal and check to ensure cdiff testing was negative. Patient continues on hemodialysis with another session today and will monitor labs closely. Creatinine improving at 3.37 with a BUN of 59. Nephrology following closely. Discussion is being had about close monitoring of kidney functions with possibly requiring permacath placement for continued hemodialysis in the outpatient setting. Will need to discuss further with nephrology. Patient continues to have restless legs and twitching although states has improved since starting requip. Patient continues on neurontin as well. 03/11/2021 Patient is seen in follow-up and evaluated this morning with no acute overnight issues. States the diarrhea has resolved and is urinating although at a decreased output. Patient denies any dysuria or retention. Patient has been receiving hemodialysis and will not be receiving it today with nephrology following closely. Patient contains on gentle IV hydration of normal saline 50 mL per hour and will continue. White blood count is 7.1 and hemoglobin is stable at 8.6, sodium is 136 with a potassium of 4.5, BUN is 42 and current creatinine is 3.16. Blood sugars were controlled at this time. Patient denies any vomiting although is occasionally having some intermittent periods of nausea and has Zofran as needed. 03/12/2021 Patient is seen this morning and creatinine worsened at 3.96 and BUN is up at 50, sodium is 135 and potassium is 4.8. Discussed with nephrology along with vascular surgery and will have permanent dialysis catheter placed and will be working on a dialysis schedule and a chair time and case management following. Will continue current medication regimen for blood sugars and again discussed diet compliance. Patient is extremely noncompliant with medications and glucose monitoring in the outpatient setting. Patient is high risk for readmissions as he has had multiple hospitalizations most recently. Patient denies any chest pain, shortness of breath, or palpitations. Patient is afebrile. Constitutional: Reports of fatigue, denied any fever. Cardio vascular: denied any chest pain, palpitations Gastrointestinal denied any vomiting, reports diarrhea has resolved Pulmonary: Denied any shortness of breath cough Neurologic denied any new focal deficits Objective - Vital Signs Vital signs: Vital Signs Temp 97.8 F 03/12/21 04:00 Pulse 65 03/12/21 04:00 Resp 16 03/12/21 04:00 BP 125/65 03/12/21 04:00 Pulse Ox 90 L 03/12/21 04:00 Intake & Output 03/11/21 03/12/21 03/12/21 18:59 06:59 18:59 Intake Total 740 480 Balance 740 480 Weight 89 kg 90 kg Intake: Oral 740 480 Other: Voiding Method Toilet Toilet Urinal Urinal - Exam GENERAL: The patient is alert and oriented x3, awake, not in any acute distress. Well developed, well nourished. Disheveled appearing, unkempt HEENT: Pupils are round and equally reacting to light. EOMI, blurriness is better now. No scleral icterus. No conjunctival pallor. Normocephalic, atraumatic. No pharyngeal erythema. No thyromegaly. CARDIOVASCULAR: S1 and S2 present. No murmurs, rubs, or gallops. PULMONARY: Chest is clear to auscultation, no wheezing or crackles. ABDOMEN: Soft, nontender, nondistended, normoactive bowel sounds. No palpable organomegaly. MUSCULOSKELETAL: No joint swelling or deformity. EXTREMITIES: No cyanosis, clubbing, or pedal edema. Right groin temporary catheter placement for dialysis noted NEUROLOGICAL: Gross neurological examination did not reveal any focal deficits. SKIN: Multiple stage I and stage II ulcerations in bilateral lower extremities in multiple healing stages, with multiple scabs noted as well - Labs CBC & Chem 7: 03/11/21 07:15 03/12/21 07:27 Labs: Abnormal Lab Results - Last 24 Hours (Table) 03/11/21 03/11/21 03/11/21 Range/Units 11:37 16:55 19:39 Sodium (137-145) mmol/L BUN (9-20) mg/dL Creatinine (0.66-1.25) mg/dL Glucose (74-99) mg/dL POC Glucose (mg/dL) 122 H 161 H 284 H (75-99) mg/dL Calcium (8.4-10.2) mg/dL 03/12/21 Range/Units 07:27 Sodium 135 L (137-145) mmol/L BUN 50 H (9-20) mg/dL Creatinine 3.96 H (0.66-1.25) mg/dL Glucose 103 H (74-99) mg/dL POC Glucose (mg/dL) (75-99) mg/dL Calcium 8.0 L (8.4-10.2) mg/dL Assessment and Plan Assessment: -Acute renal failure: Prerenal azotemia probably secondary to congestive heart failure or volume overload on admission, most likely cardiorenal. Patient received temporary Port-A-Cath dialysis placement and continues to have worsening kidney functions and plans are for permanent catheter placement for outpatient dialysis and this was discussed with vascular surgery along with nephrology -Possible restless leg syndrome; patient continues with lower extremity muscle twitching which is increased at night and was given Requip with improvement and will continue with current dose -Blurry vision probably secondary to hyperglycemia, improved -diarrhea, resolved may use Imodium and/or Questran as needed -Volume overload possibly congestive heart failure chronic diastolic dysfunction with acute exacerbation the exacerbation is secondary to fludrocortisone, which has been discontinued -Chronic kidney disease stage 4: Secondary to diabetic nephropathy, received temporarily cath placement for hemodialysis. Patient will require permanent c atheter placement and vascular surgery plans to place one possibly tomorrow and will need outpatient hemodialysis -Autonomic dysfunction for which patient is on fludrocortisone which has been discontinued -Type 2 diabetes mellitus uncontrolled elevated blood sugars: Continue sliding scale and long-acting -Multiple bilateral lower extremity ulcers in healing stages secondary to diabetic peripheral neuropathy -Congestive heart failure chronic diastolic dysfunction with acute exacerbation -Secondary pulmonary hypertension due to CHF -COPD without any acute exacerbation quit smoking years ago -DVT prophylaxis: Subcutaneous heparin -full code Plan: Continue gentle IV hydration and patient is maintained on hemodialysis with no real improvement in kidney functions and discussed with nephrology and vascular surgery and patient will have a permanent catheter placement and will need outpatient hemodialysis. Case Management working on possible chair time in the outpatient setting. We'll repeat labs and continue to monitor blood sugars closely. Patient is extremely noncompliant with medications and diet restrictions and will need extensive education and close follow-up in the outpatient setting. Lengthy discussion had again with patient about diet and medication compliance. prognosis is guarded.
[2021-03-12] MEDS ORDERED: LIDOCAINE 1% INJ 10MG/ML (20 ML MDV) ONE (15:16)
[2021-03-12] MEDS ORDERED: HEPARIN SODIUM 1,000 UN/ML (10ML VL) ONE (15:19)
[2021-03-12] MEDS ORDERED: fentaNYL (PF) 50 MCG/ML 2 ML AMP ONE (15:38)
[2021-03-12] MEDS ORDERED: fentaNYL (PF) 50 MCG/ML 2 ML AMP IV ONE (15:40)
[2021-03-12] MEDS ORDERED: LIDOCAINE 1% INJ 10MG/ML (20 ML MDV) SQ ONE (15:42)
[2021-03-12] MEDS ORDERED: IV FLUID CONTINUATION 1,000 ML IV ONE (15:45)
--- NOTE | 2021-03-12 16:13 | P.OP ---
Description of Procedure: Date: 03/12/2021 Preoperative diagnosis: End-stage renal failure Postoperative diagnosis: Same Procedure: Placement of tunneled hemodialysis catheter via right internal jugular vein ultrasound-guided access Surgeon: Shaun Adrian D.O. Anesthesia: Local with sedation Estimated blood loss: Minimal Complications: None Condition: Stable Indication for procedure: 51-year-old gentleman who is currently being treated at the hospital for acute renal failure receiving hemodialysis via the right femoral vein. It was determined that he would likely need extended dialysis therefore tunneled catheter is needed to be placed. He presents today for such procedure. Operative narrative: After written and informed consent was obtained and all risks, benefits and competitions were described the patient was brought to the Stroke Program Coordinator and laid in a supine position. The area of the right neck was prepped and draped in the usual sterile fashion. Timeout was performed in normal fashion and antibiotics were administered prior to access. Utilizing ultrasound the right internal jugular vein was visualized and shown to be patent without any thrombus. Under ultrasound guidance the vein was then cannulated with dark nonpulsatile blood flow visualized. Guidewire was placed under direct visualization of fluoroscopy into the superior vena cava. Attention was then placed to the chest wall. A small incision was created on the lateral aspect of the chest wall as well as the access site at the neck. A 19 centimeter palindrome hemodialysis catheter was then tunneled from the chest wall to the neck. Serial dilation was then performed and breakaway sheath was placed into the internal jugular vein under direct visualization of fluoroscopy. The catheter was then placed within the break away sheath the sheath was removed. The ports were assessed for patency and lazara and flushed easily and then were hep-locked. The catheter was then sutured in place, cleansed and dressings were placed. The patient tolerated procedure well.
--- NOTE | 2021-03-12 17:09 | XR ---
EXAMINATION TYPE: XR chest 1V portable DATE OF EXAM: 03/12/2021 COMPARISON: 03/07/2021 HISTORY: Check line placement TECHNIQUE: FINDINGS: There is right side central venous catheter with tip over the right atrium. There is bilate ral basilar atelectasis and pleural effusions. This is worse on the right side. There is probably inf iltrate right lower lobe. IMPRESSION: Catheter in good position. There is increased basilar atelectasis and pleural fluid channing red to last exam.
[2021-03-12 17:13] LABS: Glucose,Whole Blood 111 mg/dL (75-99)
[2021-03-12] MEDS: SODIUM CHLORIDE 0.9% 1,000 ML IV SCH (17:23)
[2021-03-12 20:54] LABS: Glucose,Whole Blood 159 mg/dL (75-99)
[2021-03-12] MEDS: INSULIN DETEMIR (LEVEMIR) 100 UNIT/ML SYR SQ SCH (21:01)
[2021-03-13] MEDS: ACETAMINOPHEN TAB 325 MG TAB PO PRN ×2 (02:56→08:40)
[2021-03-13 06:08] LABS: Glucose,Whole Blood 59 mg/dL (75-99)
[2021-03-13] MEDS: INSULIN ASPART (NovoLOG) 100 UNIT/ML VIAL SQ SCH ×4 (06:14→20:46)
[2021-03-13] MEDS: PANTOPRAZOLE 40 MG TABLET PO SCH (06:15)
[2021-03-13] MEDS: CALCIUM ACETATE 667 MG TAB PO SCH ×3 (06:15→17:21)
[2021-03-13 06:31] LABS: Glucose,Whole Blood 81 mg/dL (75-99)
[2021-03-13] MEDS: DULoxetine HCL 60 MG CAPSULE.DR PO SCH (08:39)
[2021-03-13] MEDS: ASPIRIN 81 MG PO SCH (08:39)
[2021-03-13] MEDS: HEPARIN SODIUM,PORCINE/PF 5,000 UNIT/0.5 ML SYRINGE SQ SCH ×3 (08:39→23:08)
[2021-03-13] MEDS: CHOLESTYRAMINE (WITH SUGAR) 4 GM PACKET PO SCH ×2 (08:39→17:21)
[2021-03-13] MEDS: GABAPENTIN 100 MG CAP PO SCH ×3 (08:40→20:45)
[2021-03-13] MEDS: METOPROLOL TARTRATE 50 MG TAB PO SCH ×2 (08:40→20:45)
[2021-03-13] MEDS: amLODIPine 10 MG TAB PO SCH (08:40)
[2021-03-13] MEDS: ATORVASTATIN 40 MG TAB PO SCH (08:40)
[2021-03-13] MEDS: ISOSORBIDE MONONITRATE ER 30 MG TAB.ER.24H PO SCH (08:40)
[2021-03-13] MEDS: SYMBICORT 80-4.5 MCG INHALER INHALATION SCH ×2 (08:41→23:41)
[2021-03-13] MEDS: TOBRAMYCIN 0.3% OPHTH OINT 3.5 GM TUBE BOTH EYES SCH ×4 (08:54→20:46)
--- NOTE | 2021-03-13 09:23 | P.PN ---
Subjective 51-year-old male with multiple chronic medical problems came in with the blurry vision which started about a week ago. Patient is found to have uncontrolled blood sugars. Patient does have history of congestive heart failure chronic diastolic dysfunction was comparing of shortness of breath unable to get clear history of orthopnea paroxysmal nocturnal dyspnea it's very hard to get history from the patient. Patient the visual problem his blurriness in both eyes. Patient denied any fever chills denied any significant cough. Patient is on 0.1 mg twice a day of hydrocortisone for autonomic dysfunction as per the previous documentation in this autonomic dysfunction was believed to be secondary to diabetes mellitus. Patient does have chronic kidney disease stage IV with baseline creatinine of around 2.8 and present creatinine is around 5. Patient has multiple chronic ulcerations of bilateral lower extremities which are presently in healing stages, none of them appear to be infected. Patient has some hypervolemic hyponatremia as well. Chest x-ray did show pulmonary edema and patient's BNP is highly elevated 03/06/2021 patient vision is getting better patient blood sugars are still high patient is a semiglutide. Patient the potassium is 5.3 will order Kayexalate. and 80 mg of IV Lasix patient the creatinine remains stable at 5.28 nephrology is a valid in the patient patient is an 80 mg twice a day of IV Lasix instead of which patient doesn't have any good urine output at this time. Because of continued elevation of blood sugars will add a long-acting insulin 12 units. 03/07/2021 Patient doesn't have any significant urine output. Patient creatinine is bit worse today chest x-ray showing clearing CHF, nephrology evaluated the patient is started him on IV fluids at this time creatinine is 5.94. Patient most probably will end up requiring hemodialysis. Patient cannot have gabapentin because of his acute renal failure. Serum potassium is 5.3 03/08/2021 Patient is seen and evaluated in follow-up this morning currently without IV access and no one in-house available for midline and nursing staff attempting IV access. Patient's creatinine is worse today at 5.66 with a BUN of 122, potassium is 5.2, sodium is 135, magnesium is 2.6. Nephrology following closely and plans are for dialysis catheter placement today to initiate hemodialysis. Patient is agreeable to this and will receive temporary catheter placement and start treatments. Patient continues to be lethargic although arousable and verb alizes understanding of treatment moving forward. Patient is maintained on sliding scale along with long-acting and will continue to monitor Accu-Cheks before meals and at bedtime. Patient also continues on gentle IV hydration and cardiology following. 03/09/2021 Patient is seen in follow-up continues to be lethargic although easily arousable. Continues with loose stools and not making much urine. Patient received a temporary dialysis catheter in the right femoral region and received a dose of dialysis yesterday and will continue with hemodialysis today and possibly tomorrow as well and nephrology following closely. Creatinine slightly improved at 4.6 this morning with a BUN of 87, sodium is 136 with a potassium of 5.1. Hemoglobin is stable at 8.3. Patient is receiving IV iron transfusions. Vital signs are stable and patient is afebrile. 03/10/2021 Patient is seen in follow up and continues to have loose stools. Will add anti- diarrheal and check to ensure cdiff testing was negative. Patient continues on hemodialysis with another session today and will monitor labs closely. Cr eatinine improving at 3.37 with a BUN of 59. Nephrology following closely. Discussion is being had about close monitoring of kidney functions with possibly requiring permacath placement for continued hemodialysis in the outpatient setting. Will need to discuss further with nephrology. Patient continues to have restless legs and twitching although states has improved since starting requip. Patient continues on neurontin as well. 03/11/2021 Patient is seen in follow-up and evaluated this morning with no acute overnight issues. States the diarrhea has resolved and is urinating although at a de creased output. Patient denies any dysuria or retention. Patient has been receiving hemodialysis and will not be receiving it today with nephrology following closely. Patient contains on gentle IV hydration of normal saline 50 mL per hour and will continue. White blood count is 7.1 and hemoglobin is stable at 8.6, sodium is 136 with a potassium of 4.5, BUN is 42 and current creatinine is 3.16. Blood sugars were controlled at this time. Patient denies any vomiting although is occasionally having some intermittent periods of nausea and has Zofran as needed. 03/12/2021 Patient is seen this morning and creatinine worsened at 3.96 and BUN is up at 50, sodium is 135 and potassium is 4.8. Discussed with nephrology along with vascular surgery and will have permanent dialysis catheter placed and will be working on a dialysis schedule and a chair time and case management following. Will continue current medication regimen for blood sugars and again discussed diet compliance. Patient is extremely noncompliant with medications and glucose monitoring in the outpatient setting. Patient is high risk for readmissions as he has had multiple hospitalizations most recently. Patient denies any chest pain, shortness of breath, or palpitations. Patient is afebrile. 03/13/2021 Patient is feeling bit short of breath I'll obtain a chest x-ray to make sure patient is not going into pulmonary edema again. Patient is also on morphine which is not advisable in end-stage dialysis patient morphine and will be discontinued at this time. Patient is on hemodialysis now. Constitutional: Reports of fatigue, denied any fever. Cardio vascular: denied any chest pain, palpitations Gastrointestinal denied any vomiting, reports diarrhea has resolved Pulmonary: Denied any shortness of breath cough Neurologic denied any new focal deficits - Exam GENERAL: The patient is alert and oriented x3, awake, not in any acute distress. Well developed, well nourished. Disheveled appearing, unkempt HEENT: Pupils are round and equally reacting to light. EOMI, blurriness is be tter now. No scleral icterus. No conjunctival pallor. Normocephalic, atraumatic. No pharyngeal erythema. No thyromegaly. CARDIOVASCULAR: S1 and S2 present. No murmurs, rubs, or gallops. PULMONARY: Chest is clear to auscultation, no wheezing or crackles. ABDOMEN: Soft, nontender, nondistended, normoactive bowel sounds. No palpable organomegaly. MUSCULOSKELETAL: No joint swelling or deformity. EXTREMITIES: No cyanosis, clubbing, or pedal edema. Right groin temporary catheter placement for dialysis noted NEUROLOGICAL: Gross neurological examination did not reveal any focal deficits. SKIN: Multiple stage I and stage II ulcerations in bilateral lower extremities in multiple healing stages, with multiple scabs noted as well Assessment and Plan Assessment: -Acute renal failure: Prerenal azotemia probably secondary to congestive heart failure or volume overload on admission, most likely cardiorenal. Patient received temporary Port-A-Cath dialysis placement and continues to have worsening kidney functions and plans are for permanent catheter placement for outpatient dialysis and this was discussed with vascular surgery along with nephrology - restless leg syndrome; on Requip with improvement and will continue with current dose -Blurry vision probably secondary to hyperglycemia, improved -diarrhea, resolved may use Imodium and/or Questran as needed -Volume overload possibly congestive heart failure chronic diastolic dysfunction with acute exacerbation the exacerbation is secondary to fludrocortisone, which has been discontinued -Chronic kidney disease stage 4: Secondary to diabetic nephropathy, received temporarily cath placement for hemodialysis. Patient will require permanent catheter placement and vascular surgery plans to place one possibly tomorrow and will need outpatient hemodialysis -Autonomic dysfunction for which patient is on fludrocortisone which has been discontinued -Type 2 diabetes mellitus uncontrolled elevated blood sugars: Continue sliding scale, hold long-acting insulin because of his hypoglycemic episodes. -Multiple bilateral lower extremity ulcers in healing stages secondary to diabetic peripheral neuropathy -Congestive heart failure chronic diastolic dysfunction with acute exacerbation -Secondary pulmonary hypertension due to CHF -COPD without any acute exacerbation quit smoking years ago -DVT prophylaxis: Subcutaneous heparin -full code Objective - Vital Signs Vital signs: Vital Signs Temp 98.5 F 03/13/21 07:45 Pulse 66 03/13/21 07:47 Resp 18 03/13/21 07:47 BP 106/62 03/13/21 07:45 Pulse Ox 95 03/13/21 07:45 Intake & Output 03/12/21 03/13/21 03/13/21 18:59 06:59 18:59 Intake Total 580 240 Output Total 700 Balance -120 240 Weight 94 kg Intake: IV 100 Oral 480 240 Output: Hemodialysis 700 Other: Voiding Method Toilet Toilet Urinal Urinal - Labs CBC & Chem 7: 03/11/21 07:15 03/12/21 07:27 Labs: Abnormal Lab Results - Last 24 Hours (Table) 03/12/21 03/12/21 03/12/21 Range/Units 11:39 17:11 20:32 POC Glucose (mg/dL) 167 H 111 H 159 H (75-99) mg/dL 03/13/21 Range/Units 05:58 POC Glucose (mg/dL) 59 L (75-99) mg/dL
--- NOTE | 2021-03-13 09:30 | P.PN ---
Subjective Patient is seen in follow-up for acute kidney injury on chronic kidney disease. No improvement in renal function. Started on hemodialysis this admission. Now has a permacath. He is receiving IV fluids. Patient states he's not urinating at all. Diarrhea improved. Oral intake fair. Vital signs are stable. General: The patient appeared well nourished and normally developed. HEENT: Head exam is unremarkable. Neck is without jugular venous distension. LUNGS: Breath sounds decreased. HEART: Rate and Rhythm are regular. ABDOMEN: Soft, no distention. EXTREMITITES: No edema. Chronic changes and wounds noted. Objective - Vital Signs Vital signs: Vital Signs Temp 98.5 F 03/13/21 07:45 Pulse 66 03/13/21 07:47 Resp 18 03/13/21 07:47 BP 106/62 03/13/21 07:45 Pulse Ox 95 03/13/21 07:45 Intake & Output 03/12/21 03/13/21 03/13/21 18:59 06:59 18:59 Intake Total 580 240 Output Total 700 Balance -120 240 Weight 94 kg Intake: IV 100 Oral 480 240 Output: Hemodialysis 700 Other: Voiding Method Toilet Toilet Urinal Urinal - Labs CBC & Chem 7: 03/11/21 07:15 03/12/21 07:27 Labs: Abnormal Lab Results - Last 24 Hours (Table) 03/12/21 03/12/21 03/12/21 Range/Units 11:39 17:11 20:32 POC Glucose (mg/dL) 167 H 111 H 159 H (75-99) mg/dL 03/13/21 Range/Units 05:58 POC Glucose (mg/dL) 59 L (75-99) mg/dL Assessment and Plan Plan: Assessment: 1. Acute kidney injury secondary to ATN secondary to diuresis, vomiting and diarrhea. Creatinine peaked at 5.66 this admission. Started on hemodialysis March 08. No evidence of urinary retention or hydronephrosis. Has a permacath. 2. Chronic kidney disease stage IIIB secondary to diabetic kidney disease with baseline creatinine in the range of 2-2.5. 3. Diabetes mellitus. 4. Chronic diastolic CHF. 5. Mild hyperkalemia secondary to acute kidney injury. Better. 6. Anemia of chronic kidney disease. Iron deficiency noted - s/p IV iron. Maintained on Aranesp. 7. Hyperphosphatemia secondary to acute kidney injury maintained on PhosLo. Plan: Hep-Lock IV fluids. Hemodialysis Monday. Outpatient dialysis to be set up by window caser. Monitor for renal recovery outpatient. Decrease amlodipine to 5 mg once daily.
--- NOTE | 2021-03-13 10:27 | IR ---
Fluoroscopy HISTORY: Central venous catheter placement 2.1 minutes fluoroscopy time supplied to the referring clinician. 45 intraoperative C-arm images doc ument the procedure. See dictated report from vascular surgery.
--- NOTE | 2021-03-13 10:48 | XR ---
EXAMINATION TYPE: XR chest 1V DATE OF EXAM: 03/13/2021 COMPARISON: 03/12/2021 HISTORY: Congestive heart failure TECHNIQUE: Single frontal view of the chest is obtained. FINDINGS AND IMPRESSION: Right jugular CVC tip at the cavoatrial junction stable. Pulmonary vascular congestion no significant change. Stable bibasilar opacities on the basis of atelectasis and/or pneumonia. Cardiomediastinal silhouette within normal limits. Small to moderate size right pleural effusion, no significant change since prior. No pneumothorax. Generalized osteopenia. Degenerative changes in both shoulder joints and the spine. No acute osseous abnormality.
[2021-03-13 11:06] LABS: Glucose,Whole Blood 191 mg/dL (75-99)
[2021-03-13] MEDS: ONDANSETRON 4 MG/2 ML VIAL IVP PRN (12:49)
[2021-03-13 16:06] LABS: Glucose,Whole Blood 108 mg/dL (75-99)
--- NOTE | 2021-03-13 16:12 | P.PN ---
Progress Note - Text Progress Note Date: 03/13/21 Patient seen and examined. Catheter is clean, dry and intact without any signs of hematoma or infection. Right groin without any hematoma. Patient is to continue hemodialysis per nephrology. We will sign off at this time and reevaluate as needed. Patient will follow-up in the outpatient setting to discuss permanent hemodialysis access if nephrology deems necessary.
[2021-03-13] MEDS: ONDANSETRON 4 MG TAB PO PRN (16:29)
[2021-03-13 20:40] LABS: Glucose,Whole Blood 191 mg/dL (75-99)
[2021-03-14 06:02] LABS: Glucose,Whole Blood 225 mg/dL (75-99)
[2021-03-14] MEDS: PANTOPRAZOLE 40 MG TABLET PO SCH (06:25)
[2021-03-14] MEDS: INSULIN ASPART (NovoLOG) 100 UNIT/ML VIAL SQ SCH ×4 (06:25→20:38)
[2021-03-14] MEDS: CALCIUM ACETATE 667 MG TAB PO SCH ×3 (06:25→17:29)
[2021-03-14] MEDS ORDERED: VANCOMYCIN IV PER PHARMACY 1 EACH MISC MISCELLANE PRN (06:41)
[2021-03-14] MEDS ORDERED: VANCOMYCIN 1,500 MG in SODIUM CHLORIDE 0.9% 250 ML IVPB ONE (07:00)
--- NOTE | 2021-03-14 07:40 | P.PN ---
Subjective 51-year-old male with multiple chronic medical problems came in with the blurry vision which started about a week ago. Patient is found to have uncontrolled blood sugars. Patient does have history of congestive heart failure chronic diastolic dysfunction was comparing of shortness of breath unable to get clear history of orthopnea paroxysmal nocturnal dyspnea it's very hard to get history from the patient. Patient the visual problem his blurriness in both eyes. Patient denied any fever chills denied any significant cough. Patient is on 0.1 mg twice a day of hydrocortisone for autonomic dysfunction as per the previous documentation in this autonomic dysfunction was believed to be secondary to diabetes mellitus. Patient does have chronic kidney disease stage IV with baseline creatinine of around 2.8 and present creatinine is around 5. Patient has multiple chronic ulcerations of bilateral lower extremities which are presently in healing stages, none of them appear to be infected. Patient has some hypervolemic hyponatremia as well. Chest x-ray did show pulmonary edema and patient's BNP is highly elevated 03/06/2021 patient vision is getting better patient blood sugars are still high patient is a semiglutide. Patient the potassium is 5.3 will order Kayexalate. and 80 mg of IV Lasix patient the creatinine remains stable at 5.28 nephrology is a valid in the patient patient is an 80 mg twice a day of IV Lasix instead of which patient doesn't have any good urine output at this time. Because of continued elevation of blood sugars will add a long-acting insulin 12 units. 03/07/2021 Patient doesn't have any significant urine output. Patient creatinine is bit worse today chest x-ray showing clearing CHF, nephrology evaluated the patient is started him on IV fluids at this time creatinine is 5.94. Patient most probably will end up requiring hemodialysis. Patient cannot have gabapentin because of his acute renal failure. Serum potassium is 5.3 03/08/2021 Patient is seen and evaluated in follow-up this morning currently without IV access and no one in-house available for midline and nursing staff attempting IV access. Patient's creatinine is worse today at 5.66 with a BUN of 122, potassium is 5.2, sodium is 135, magnesium is 2.6. Nephrology following closely and plans are for dialysis catheter placement today to initiate hemodialysis. Patient is agreeable to this and will receive temporary catheter placement and start treatments. Patient continues to be lethargic although arousable and verb alizes understanding of treatment moving forward. Patient is maintained on sliding scale along with long-acting and will continue to monitor Accu-Cheks before meals and at bedtime. Patient also continues on gentle IV hydration and cardiology following. 03/09/2021 Patient is seen in follow-up continues to be lethargic although easily arousable. Continues with loose stools and not making much urine. Patient received a temporary dialysis catheter in the right femoral region and received a dose of dialysis yesterday and will continue with hemodialysis today and possibly tomorrow as well and nephrology following closely. Creatinine slightly improved at 4.6 this morning with a BUN of 87, sodium is 136 with a potassium of 5.1. Hemoglobin is stable at 8.3. Patient is receiving IV iron transfusions. Vital signs are stable and patient is afebrile. 03/10/2021 Patient is seen in follow up and continues to have loose stools. Will add anti- diarrheal and check to ensure cdiff testing was negative. Patient continues on hemodialysis with another session today and will monitor labs closely. Cr eatinine improving at 3.37 with a BUN of 59. Nephrology following closely. Discussion is being had about close monitoring of kidney functions with possibly requiring permacath placement for continued hemodialysis in the outpatient setting. Will need to discuss further with nephrology. Patient continues to have restless legs and twitching although states has improved since starting requip. Patient continues on neurontin as well. 03/11/2021 Patient is seen in follow-up and evaluated this morning with no acute overnight issues. States the diarrhea has resolved and is urinating although at a de creased output. Patient denies any dysuria or retention. Patient has been receiving hemodialysis and will not be receiving it today with nephrology following closely. Patient contains on gentle IV hydration of normal saline 50 mL per hour and will continue. White blood count is 7.1 and hemoglobin is stable at 8.6, sodium is 136 with a potassium of 4.5, BUN is 42 and current creatinine is 3.16. Blood sugars were controlled at this time. Patient denies any vomiting although is occasionally having some intermittent periods of nausea and has Zofran as needed. 03/12/2021 Patient is seen this morning and creatinine worsened at 3.96 and BUN is up at 50, sodium is 135 and potassium is 4.8. Discussed with nephrology along with vascular surgery and will have permanent dialysis catheter placed and will be working on a dialysis schedule and a chair time and case management following. Will continue current medication regimen for blood sugars and again discussed diet compliance. Patient is extremely noncompliant with medications and glucose monitoring in the outpatient setting. Patient is high risk for readmissions as he has had multiple hospitalizations most recently. Patient denies any chest pain, shortness of breath, or palpitations. Patient is afebrile. 03/13/2021 Patient is feeling bit short of breath I'll obtain a chest x-ray to make sure patient is not going into pulmonary edema again. Patient is also on morphine which is not advisable in end-stage dialysis patient morphine and will be discontinued at this time. Patient is on hemodialysis now. 03/14/2021 Patient chest x-ray did not show any significant abnormality patient has swelling on the left forearm dorsal aspect appears to be a small abscess with cellulitis. Patient will be started on vancomycin patient had history of MRSA in the past infectious disease will be consulted patient may need drainage of t hat abscess. Constitutional: Reports of fatigue, denied any fever. Cardio vascular: denied any chest pain, palpitations Gastrointestinal denied any vomiting, reports diarrhea has resolved Pulmonary: Denied any shortness of breath cough Neurologic denied any new focal deficits - Exam GENERAL: The patient is alert and oriented x3, awake, not in any acute distress. Well developed, well nourished. Disheveled appearing, unkempt HEENT: Pupils are round and equally reacting to light. EOMI, blurriness is better now. No scleral icterus. No conjunctival pallor. Normocephalic, atraumatic. No pharyngeal erythema. No thyromegaly. CARDIOVASCULAR: S1 and S2 present. No murmurs, rubs, or gallops. PULMONARY: Chest is clear to auscultation, no wheezing or crackles. ABDOMEN: Soft, nontender, nondistended, normoactive bowel sounds. No palpable organomegaly. MUSCULOSKELETAL: No joint swelling or deformity. EXTREMITIES: No cyanosis, clubbing, or pedal edema. Right groin temporary catheter placement for dialysis noted NEUROLOGICAL: Gross neurological examination did not reveal any focal deficits. SKIN: Multiple stage I and stage II ulcerations in bilateral lower extremities in multiple healing stages, with multiple scabs noted as well Assessment and Plan Assessment: -Acute renal failure: Prerenal azotemia probably secondary to congestive heart failure or volume overload on admission, most likely cardiorenal. Patient r eceived temporary Port-A-Cath dialysis placement and continues to have worsening kidney functions and plans are for permanent catheter placement for outpatient dialysis and this was discussed with vascular surgery along with nephrology -Possible abscess in the left arm: Vancomycin infectious disease consult - restless leg syndrome; on Requip with improvement and will continue with current dose -Blurry vision probably secondary to hyperglycemia, improved -diarrhea, resolved may use Imodium and/or Questran as needed -Volume overload possibly congestive heart failure chronic diastolic dysfunction with acute exacerbation the exacerbation is secondary to fludrocortisone, which has been discontinued -Chronic kidney disease stage 4: Secondary to diabetic nephropathy, received temporarily cath placement for hemodialysis. Patient will require permanent catheter placement and vascular surgery plans to place one possibly tomorrow and will need outpatient hemodialysis -Autonomic dysfunction for which patient is on fludrocortisone which has been discontinued -Type 2 diabetes mellitus uncontrolled elevated blood sugars: Continue sliding scale, hold long-acting insulin because of his hypoglycemic episodes. -Multiple bilateral lower extremity ulcers in healing stages secondary to diabetic peripheral neuropathy -Congestive heart failure chronic diastolic dysfunction with acute exacerbation -Secondary pulmonary hypertension due to CHF -COPD without any acute exacerbation quit smoking years ago -DVT prophylaxis: Subcutaneous heparin -full code Objective - Vital Signs Vital signs: Vital Signs Temp 97.8 F 03/14/21 04:00 Pulse 67 03/14/21 04:00 Resp 17 03/14/21 04:00 BP 111/56 03/14/21 04:00 Pulse Ox 96 03/14/21 04:05 Intake & Output 03/13/21 03/14/21 03/14/21 18:59 06:59 18:59 Intake Total 880 Balance 880 Weight 97.4 kg Intake: Oral 880 Other: Voiding Method Toilet Urinal - Labs CBC & Chem 7: 03/11/21 07:15 03/12/21 07:27 Labs: Abnormal Lab Results - Last 24 Hours (Table) 03/13/21 03/13/21 03/13/21 Range/Units 11:03 16:03 20:39 POC Glucose (mg/dL) 191 H 108 H 191 H (75-99) mg/dL 03/14/21 Range/Units 06:00 POC Glucose (mg/dL) 225 H (75-99) mg/dL
[2021-03-14 07:53] LABS: Calcium 7.8 mg/dL (8.4-10.2); Potassium 4.6 mmol/L (3.5-5.1)
[2021-03-14] MEDS: SYMBICORT 80-4.5 MCG INHALER INHALATION SCH ×2 (08:10→20:48)
[2021-03-14] MEDS: METOPROLOL TARTRATE 50 MG TAB PO SCH ×2 (08:39→20:38)
[2021-03-14] MEDS: HEPARIN SODIUM,PORCINE/PF 5,000 UNIT/0.5 ML SYRINGE SQ SCH ×3 (08:39→23:15)
[2021-03-14] MEDS: amLODIPine 5 MG TAB PO SCH (08:40)
[2021-03-14] MEDS: ISOSORBIDE MONONITRATE ER 30 MG TAB.ER.24H PO SCH (08:40)
[2021-03-14] MEDS: ATORVASTATIN 40 MG TAB PO SCH (08:40)
[2021-03-14] MEDS: GABAPENTIN 100 MG CAP PO SCH ×3 (08:40→20:37)
[2021-03-14] MEDS: ASPIRIN 81 MG PO SCH (08:40)
[2021-03-14] MEDS: DULoxetine HCL 60 MG CAPSULE.DR PO SCH (08:40)
[2021-03-14] MEDS: TOBRAMYCIN 0.3% OPHTH OINT 3.5 GM TUBE BOTH EYES SCH ×4 (09:00→20:38)
[2021-03-14] MEDS: CHOLESTYRAMINE (WITH SUGAR) 4 GM PACKET PO SCH ×2 (09:21→17:29)
--- NOTE | 2021-03-14 09:42 | P.PN ---
Subjective Patient is seen in follow-up for acute kidney injury on chronic kidney disease. No improvement in renal function. Started on hemodialysis this admission. Now has a permacath. Patient states he's not urinating at all. Diarrhea improved. Oral intake fair. No chest pain or shortness of breath. Hemodynamically stable. Vital signs are stable. General: The patient appeared well nourished and normally developed. HEENT: Head exam is unremarkable. Neck is without jugular venous distension. LUNGS: Breath sounds decreased. HEART: Rate and Rhythm are regular. ABDOMEN: Soft, no distention. EXTREMITITES: No edema. Chronic changes and wounds noted. Objective - Vital Signs Vital signs: Vital Signs Temp 97.8 F 03/14/21 04:00 Pulse 67 03/14/21 04:00 Resp 17 03/14/21 04:00 BP 111/56 03/14/21 04:00 Pulse Ox 96 03/14/21 04:05 Intake & Output 03/13/21 03/14/21 03/14/21 18:59 06:59 18:59 Intake Total 880 240 Balance 880 240 Weight 97.4 kg Intake: Oral 880 240 Other: Voiding Method Toilet Urinal - Labs CBC & Chem 7: 03/11/21 07:15 03/14/21 06:54 Labs: Abnormal Lab Results - Last 24 Hours (Table) 03/13/21 03/13/21 03/13/21 Range/Units 11:03 16:03 20:39 Sodium (137-145) mmol/L BUN (9-20) mg/dL Creatinine (0.66-1.25) mg/dL Glucose (74-99) mg/dL POC Glucose (mg/dL) 191 H 108 H 191 H (75-99) mg/dL Calcium (8.4-10.2) mg/dL 03/14/21 03/14/21 Range/Units 06:00 06:54 Sodium 135 L (137-145) mmol/L BUN 42 H (9-20) mg/dL Creatinine 4.02 H (0.66-1.25) mg/dL Glucose 255 H (74-99) mg/dL POC Glucose (mg/dL) 225 H (75-99) mg/dL Calcium 7.8 L (8.4-10.2) mg/dL Assessment and Plan Plan: Assessment: 1. Acute kidney injury secondary to ATN secondary to diuresis, vomiting and diarrhea. Creatinine peaked at 5.66 this admission. Started on hemodialysis March 08. No evidence of urinary retention or hydronephrosis. Has a permacath. 2. Chronic kidney disease stage IIIB secondary to diabetic kidney disease with baseline creatinine in the range of 2-2.5. 3. Diabetes mellitus. 4. Chronic diastolic CHF. 5. Mild hyperkalemia secondary to acute kidney injury. Better. 6. Anemia of chronic kidney disease. Iron deficiency noted - s/p IV iron. Maintained on Aranesp. 7. Hyperphosphatemia secondary to acute kidney injury maintained on PhosLo. Plan: Hemodialysis tomorrow. Outpatient dialysis to be set up by director of casework department. Monitor for renal recovery outpatient. Hold amlodipine for systolic blood pressure less than 120.
[2021-03-14 11:58] LABS: Glucose,Whole Blood 222 mg/dL (75-99)
[2021-03-14 16:52] LABS: Glucose,Whole Blood 194 mg/dL (75-99)
[2021-03-14 20:29] LABS: Glucose,Whole Blood 143 mg/dL (75-99)
--- NOTE | 2021-03-14 22:34 | P.CONS ---
History of Present Illness - Reason for Consult Consult date: 03/14/21 Left arm abscess Requesting physician: Pasquale Pollock - Chief Complaint Left arm pain swelling redness 2 days - History of Present Illness Patient is a 51-year-old male admitted to hospital about 9 days ago in this patient who did have a acute on chronic renal insufficiency and has been started on dialysis patient to have history of bilateral lower extremity abscess and cellulitis secondary to MRSA which is currently resolved patient has developed an area of swelling and redness to the left forearm area that he noticed about a day ago patient did not mention there was any IV at that site patient be complaining of pain to the area to be more of a sharp to dull aching intensity could be 4-5 out of 10 no radiation there is no purulent drainage from it patient has been started on vancomycin infectious was consulted for further management of antibiotic therapy no blood cultures were done Review of Systems Positive point has been mentioned in the HPI rest of the systems are negative Past Medical History Past Medical History: Heart Failure, Diabetes Mellitus, Hyperlipidemia, Hype rtension Additional Past Medical History / Comment(s): IDDM type II, neuropathy bilateral feet, gout, bilateral eye catarct removal, MRSA . History of Any Multi-Drug Resistant Organisms: MRSA Year Discovered:: 12/17/20 MDRO Source:: Right Leg Past Surgical History: Cholecystectomy Additional Past Surgical History / Comment(s): I&D scrotal abscess, I&D back abscess Past Anesthesia/Blood Transfusion Reactions: No Reported Reaction Past Psychological History: Anxiety Smoking Status: Former smoker Past Alcohol Use History: None Reported Past Drug Use History: None Reported - Past Family History Mother Family Medical History: Diabetes Mellitus Father History Unknown: Yes Medications and Allergies Home Medications Medication Instructions Recorded Confirmed Type Omeprazole [PriLOSEC] 40 mg PO AC-BRKFST #14 capsule. 11/04/19 03/05/21 Rx DULoxetine HCL [Cymbalta] 60 mg PO DAILY 04/01/20 03/05/21 History Acetaminophen Tab [Tylenol] 650 mg PO Q4H PRN 07/25/20 03/05/21 History Albuterol Sulfate [Proair Hfa] 2 puff INHALATION RT-Q6H PRN 07/25/20 03/05/21 History Semaglutide [Ozempic] 1 mg SQ MO 10/03/20 03/05/21 History Atorvastatin [Lipitor] 40 mg PO DAILY #30 tab 10/13/20 03/05/21 Rx Fluticasone/Salmeterol [Advair 1 puff INHALATION RT-BID 12/16/20 03/05/21 History 250-50 Diskus] Nitroglycerin Sl Tabs [Nitrostat] 0.4 mg SL Q5M PRN 12/16/20 03/05/21 History Ondansetron [Zofran] 4 mg PO TID PRN 12/16/20 03/05/21 History INSULIN ASPART (NovoLOG) [NovoLOG See Protocol SQ ACHS 01/04/21 03/05/21 History (formulary)] Metoprolol Tartrate [Lopressor] 50 mg PO BID 30 Days #60 tab 01/14/21 03/05/21 Rx Aspirin 81 mg PO DAILY #30 chewable 01/18/21 03/05/21 Rx amLODIPine [Norvasc] 10 mg PO DAILY #30 tab 01/18/21 03/05/21 Rx Fludrocortisone [Florinef] 0.1 mg PO BID #60 tab 02/11/21 03/05/21 Rx Isosorbide Mononitrate ER [Imdur] 30 mg PO DAILY #30 tab.er.24h 02/11/21 03/05/21 Rx Furosemide [Lasix] 40 mg PO BID PRN 03/05/21 03/05/21 History Gabapentin 800 mg PO TID 03/05/21 03/05/21 History traZODone HCL [Desyrel] 100 mg PO HS PRN 03/05/21 03/05/21 History Allergies Allergy/AdvReac Type Severity Reaction Status Date / Time No Known Allergies Allergy Verified 03/05/21 08:01 Physical Exam Vitals: Vital Signs Temp Pulse Resp BP Pulse Ox 03/14/21 12:00 97.5 F L 69 18 127/71 94 L 03/14/21 08:00 97.9 F 70 18 129/71 95 03/14/21 04:05 96 03/14/21 04:00 97.8 F 67 17 111/56 85 L 03/14/21 02:00 62 16 03/14/21 00:00 62 16 127/65 99 03/13/21 20:00 98.2 F 68 17 126/60 95 03/13/21 16:00 97.9 F 79 16 160/56 94 L Intake and Output 03/13/21 03/14/21 03/14/21 22:59 06:59 14:59 Intake Total 240 480 Balance 240 480 Intake: Oral 240 480 Other: Voiding Method Toilet Urinal Weight 97.4 kg GENERAL DESCRIPTION: Middle-aged male lying in bed, no distress. No tachypnea or accessory muscle of respiration use. HEENT: Shows Pallor , no scleral icterus. Oral mucous membrane is dry. No pharyngeal erythema or thrush NECK: Trachea central, no thyromegaly. LUNGS: Unlabored breathing. Decreased redness on the base. No wheeze or c rackle. HEART: S1, S2, regular rate and rhythm. No loud murmur ABDOMEN: Soft, no tenderness , guarding or rigidity, no organomegaly EXTREMITIES: No edema of feet. Bilateral is currently with the no redness, patient did have a left arm area of swelling redness and induration which is painful to touch no drainage SKIN: No rash, no masses palpable. NEUROLOGICAL: The patient is awake, alert, oriented x3, mood and affect normal. Results CBC & Chem 7: 03/11/21 07:15 03/14/21 06:54 Labs: Abnormal Lab Results - Last 24 Hours (Table) 03/13/21 03/13/21 03/14/21 Range/Units 16:03 20:39 06:00 Sodium (137-145) mmol/L BUN (9-20) mg/dL Creatinine (0.66-1.25) mg/dL Glucose (74-99) mg/dL POC Glucose (mg/dL) 108 H 191 H 225 H (75-99) mg/dL Calcium (8.4-10.2) mg/dL 03/14/21 03/14/21 Range/Units 06:54 11:54 Sodium 135 L (137-145) mmol/L BUN 42 H (9-20) mg/dL Creatinine 4.02 H (0.66-1.25) mg/dL Glucose 255 H (74-99) mg/dL POC Glucose (mg/dL) 222 H (75-99) mg/dL Calcium 7.8 L (8.4-10.2) mg/dL Assessment and Plan Assessment: 1-patient with left upper extremity cellulitis and wound infection likely from gram-positive skin vijay in this patient who do have a history of MRSA infection more likely due to MRSA 2-patient with renal insufficiency and per discussion with the welder assistant he did have a chance of recovery of his renal function hence will avoid nephrotoxic medication (1) Left arm cellulitis Current Visit: Yes Status: Acute Code(s): L03.114 - CELLULITIS OF LEFT UPPER LIMB SNOMED Code(s): 460197772 Plan: 1-discontinue vancomycin 2-Marked area of induration left arm 3-daptomycin 4 mg/kg every 48 hour We will follow on clinical condition and cultures to further adjust medication if needed Thank you for this consultation we will follow the patient along with you Time with Patient: Greater than 30
[2021-03-15 06:07] LABS: HCT 23.7 % (39.0-53.0); HGB 7.9 gm/dL (13.0-17.5); MCH 29.4 pg (25.0-35.0); MCHC 33.3 g/dL (31.0-37.0); MCV 88.3 fL (80.0-100.0); Mean Platelet Volume 8.3; Platelet Count 197 k/uL (150-450); RBC 2.68 m/uL (4.30-5.90); RDW 15.3 % (11.5-15.5); WBC 6.5 k/uL (3.8-10.6)
[2021-03-15 06:23] LABS: Calcium 7.9 mg/dL (8.4-10.2); Potassium 5.3 mmol/L (3.5-5.1)
[2021-03-15 06:34] LABS: Glucose,Whole Blood 239 mg/dL (75-99)
[2021-03-15] MEDS: PANTOPRAZOLE 40 MG TABLET PO SCH (06:40)
[2021-03-15] MEDS: INSULIN ASPART (NovoLOG) 100 UNIT/ML VIAL SQ SCH ×4 (06:40→20:58)
[2021-03-15] MEDS: CALCIUM ACETATE 667 MG TAB PO SCH ×3 (06:40→17:45)
[2021-03-15] MEDS: SYMBICORT 80-4.5 MCG INHALER INHALATION SCH ×2 (07:56→20:56)
[2021-03-15] MEDS ORDERED: VANCOMYCIN 1,500 MG in SODIUM CHLORIDE 0.9% 250 ML IVPB ONE (08:00)
[2021-03-15] MEDS: HEPARIN SODIUM,PORCINE/PF 5,000 UNIT/0.5 ML SYRINGE SQ SCH ×2 (09:07→16:00)
[2021-03-15] MEDS: DULoxetine HCL 60 MG CAPSULE.DR PO SCH (09:08)
[2021-03-15] MEDS: METOPROLOL TARTRATE 50 MG TAB PO SCH ×2 (09:08→20:04)
[2021-03-15] MEDS: amLODIPine 5 MG TAB PO SCH (09:08)
[2021-03-15] MEDS: GABAPENTIN 100 MG CAP PO SCH ×3 (09:08→20:04)
[2021-03-15] MEDS: CHOLESTYRAMINE (WITH SUGAR) 4 GM PACKET PO SCH ×2 (09:08→17:46)
[2021-03-15] MEDS: ASPIRIN 81 MG PO SCH (09:09)
[2021-03-15] MEDS: ISOSORBIDE MONONITRATE ER 30 MG TAB.ER.24H PO SCH (09:10)
[2021-03-15] MEDS: TOBRAMYCIN 0.3% OPHTH OINT 3.5 GM TUBE BOTH EYES SCH ×4 (09:10→20:05)
[2021-03-15] MEDS: Semaglutide [Ozempic] 1 MG/0.75 ML Pen.Injctr SQ SCH (09:11)
[2021-03-15 12:07] LABS: Glucose,Whole Blood 222 mg/dL (75-99)
--- NOTE | 2021-03-15 13:09 | P.PN ---
Subjective Progress Note Date: 03/15/21 51-year-old male with multiple chronic medical problems came in with the blurry vision which started about a week ago. Patient is found to have uncontrolled blood sugars. Patient does have history of congestive heart failure chronic diastolic dysfunction was comparing of shortness of breath unable to get clear history of orthopnea paroxysmal nocturnal dyspnea it's very hard to get history from the patient. Patient the visual problem his blurriness in both eyes. Patient denied any fever chills denied any significant cough. Patient is on 0.1 mg twice a day of hydrocortisone for autonomic dysfunction as per the previous documentation in this autonomic dysfunction was believed to be secondary to diabetes mellitus. Patient does have chronic kidney disease stage IV with baseline creatinine of around 2.8 and present creatinine is around 5. Patient has multiple chronic ulcerations of bilateral lower extremities which are presently in healing stages, none of them appear to be infected. Patient has some hypervolemic hyponatremia as well. Chest x-ray did show pulmonary edema and patient's BNP is highly elevated 03/06/2021 patient vision is getting better patient blood sugars are still high patient is a semiglutide. Patient the potassium is 5.3 will order Kayexalate. and 80 mg of IV Lasix patient the creatinine remains stable at 5.28 nephrology is a valid in the patient patient is an 80 mg twice a day of IV Lasix instead of which patient doesn't have any good urine output at this time. Because of continued elevation of blood sugars will add a long-acting insulin 12 units. 03/07/2021 Patient doesn't have any significant urine output. Patient creatinine is bit worse today chest x-ray showing clearing CHF, nephrology evaluated the patient is started him on IV fluids at this time creatinine is 5.94. Patient most probably will end up requiring hemodialysis. Patient cannot have gabapentin because of his acute renal failure. Serum potassium is 5.3 03/08/2021 Patient is seen and evaluated in follow-up this morning currently without IV access and no one in-house available for midline and nursing staff attempting IV access. Patient's creatinine is worse today at 5.66 with a BUN of 122, potassium is 5.2, sodium is 135, magnesium is 2.6. Nephrology following closely and plans are for dialysis catheter placement today to initiate hemodialysis. Patient is agreeable to this and will receive temporary catheter placement and start treatments. Patient continues to be lethargic although arousable and verbalizes understanding of treatment moving forward. Patient is maintained on sliding scale along with long-acting and will continue to monitor Accu-Cheks before meals and at bedtime. Patient also continues on gentle IV hydration and cardiology following. 03/09/2021 Patient is seen in follow-up continues to be lethargic although easily arousable. Continues with loose stools and not making much urine. Patient received a temporary dialysis catheter in the right femoral region and received a dose of dialysis yesterday and will continue with hemodialysis today and possibly tomorrow as well and nephrology following closely. Creatinine slightly improved at 4.6 this morning with a BUN of 87, sodium is 136 with a potassium of 5.1. Hemoglobin is stable at 8.3. Patient is receiving IV iron transfusions. Vital signs are stable and patient is afebrile. 03/10/2021 Patient is seen in follow up and continues to have loose stools. Will add anti- diarrheal and check to ensure cdiff testing was negative. Patient continues on hemodialysis with another session today and will monitor labs closely. Creatinine improving at 3.37 with a BUN of 59. Nephrology following closely. Discussion is being had about close monitoring of kidney functions with possibly requiring permacath placement for continued hemodialysis in the outpatient setting. Will need to discuss further with nephrology. Patient continues to have restless legs and twitching although states has improved since starting requip. Patient continues on neurontin as well. 03/11/2021 Patient is seen in follow-up and evaluated this morning with no acute overnight issues. States the diarrhea has resolved and is urinating although at a decreased output. Patient denies any dysuria or retention. Patient has been receiving hemodialysis and will not be receiving it today with nephrology following closely. Patient contains on gentle IV hydration of normal saline 50 mL per hour and will continue. White blood count is 7.1 and hemoglobin is stable at 8.6, sodium is 136 with a potassium of 4.5, BUN is 42 and current creatinine is 3.16. Blood sugars were controlled at this time. Patient denies any vomiting although is occasionally having some intermittent periods of nausea and has Zofran as needed. 03/12/2021 Patient is seen this morning and creatinine worsened at 3.96 and BUN is up at 50, sodium is 135 and potassium is 4.8. Discussed with nephrology along with vascular surgery and will have permanent dialysis catheter placed and will be working on a dialysis schedule and a chair time and case management following. Will continue current medication regimen for blood sugars and again discussed diet compliance. Patient is extremely noncompliant with medications and glucose monitoring in the outpatient setting. Patient is high risk for readmissions as he has had multiple hospitalizations most recently. Patient denies any chest pain, shortness of breath, or palpitations. Patient is afebrile. 03/13/2021 Patient is feeling bit short of breath I'll obtain a chest x-ray to make sure patient is not going into pulmonary edema again. Patient is also on morphine which is not advisable in end-stage dialysis patient morphine and will be discontinued at this time. Patient is on hemodialysis now. 03/14/2021 Patient chest x-ray did not show any significant abnormality patient has swelling on the left forearm dorsal aspect appears to be a small abscess with cellulitis. Patient will be started on vancomycin patient had history of MRSA in the past infectious disease will be consulted patient may need drainage of that abscess. 03/15/2021 Patient is seen in follow-up continues on IV antibiotics in the form of daptomycin and vancomycin has been discontinued. Infectious disease following closely. Patient continues with left forearm almost elbow area swelling with a scab noted and continued redness although slightly improved and will not require drainage at this time. This was discussed with infectious disease. Patient is being arranged for outpatient dialysis as kidney functions continue to worsen. Patient did recently receive a permanent catheter for continued hemodialysis. branch sales manager working on chair time and Homecare was offered although patient continues to refuse. Kidney functions were BUN of 52 and creatinine of 4.39 and currently receiving dialysis at this time. Sodium is 135 and potassium is 5.3. Hemoglobin is stable at 7.9. Patient continues on sliding scale and will continue to monitor Accu-Cheks before meals and at bedtime. Patient remains on 2 L of oxygen via nasal cannula denies shortness of breath although states his oxygen saturation has been dipping down per nursing staff. will do home O2 eval. Constitutional: Reports of fatigue, denied any fever. Cardio vascular: denied any chest pain, palpitations Gastrointestinal denied any vomiting, reports diarrhea has resolved Pulmonary: Denied any shortness of breath cough Neurologic denied any new focal deficits Objective - Vital Signs Vital signs: Vital Signs Temp 97.9 F 03/14/21 16:00 Pulse 69 03/15/21 04:00 Resp 18 03/15/21 04:00 BP 133/71 03/15/21 04:00 Pulse Ox 94 L 03/15/21 04:00 Intake & Output 03/14/21 03/15/21 03/15/21 18:59 06:59 18:59 Intake Total 480 472 Balance 480 472 Weight 95 kg Intake: Oral 480 472 Other: Voiding Method Toilet Urinal - Exam GENERAL: The patient is alert and oriented x3, awake, not in any acute distress. Well developed, well nourished. Disheveled appearing, unkempt HEENT: Pupils are round and equally reacting to light. EOMI, blurriness is better now. No scleral icterus. No conjunctival pallor. Normocephalic, atraumatic. No pharyngeal erythema. No thyromegaly. CARDIOVASCULAR: S1 and S2 present. No murmurs, rubs, or gallops. PULMONARY: Chest is clear to auscultation, no wheezing or crackles. ABDOMEN: Soft, nontender, nondistended, normoactive bowel sounds. No palpable organomegaly. MUSCULOSKELETAL: No joint swelling or deformity. EXTREMITIES: No cyanosis, clubbing, or pedal edema. Right groin temporary catheter placement for dialysis noted NEUROLOGICAL: Gross neurological examination did not reveal any focal deficits. SKIN: Multiple stage I and stage II ulcerations in bilateral lower extremities in multiple healing stages, with multiple scabs noted as well, left forearm outer aspect scabbing with abscess and redness noted with some decrease in inflammation noted as well. - Labs CBC & Chem 7: 03/15/21 05:18 03/15/21 05:18 Labs: Abnormal Lab Results - Last 24 Hours (Table) 03/14/21 03/14/21 03/14/21 Range/Units 11:54 16:49 20:00 RBC (4.30-5.90) m/uL Hgb (13.0-17.5) gm/dL Hct (39.0-53.0) % Sodium (137-145) mmol/L Potassium (3.5-5.1) mmol/L BUN (9-20) mg/dL Creatinine (0.66-1.25) mg/dL Glucose (74-99) mg/dL POC Glucose (mg/dL) 222 H 194 H 143 H (75-99) mg/dL Calcium (8.4-10.2) mg/dL 03/15/21 03/15/21 03/15/21 Range/Units 05:18 05:18 06:02 RBC 2.68 L (4.30-5.90) m/uL Hgb 7.9 L (13.0-17.5) gm/dL Hct 23.7 L (39.0-53.0) % Sodium 135 L (137-145) mmol/L Potassium 5.3 H (3.5-5.1) mmol/L BUN 52 H (9-20) mg/dL Creatinine 4.39 H (0.66-1.25) mg/dL Glucose 209 H (74-99) mg/dL POC Glucose (mg/dL) 239 H (75-99) mg/dL Calcium 7.9 L (8.4-10.2) mg/dL Assessment and Plan Assessment: -Acute renal failure: Prerenal azotemia probably secondary to congestive heart failure or volume overload on admission, most likely cardiorenal. Patient has received permacath placement and case management working on chair time for the outpatient setting -Possible abscess in the left arm: Patient on IV daptomycin and infectious disease following with no plans for I&D at this time showing clinical improvement -restless leg syndrome; on Requip with improvement and will continue with c urrent dose -Blurry vision probably secondary to hyperglycemia, improved -diarrhea, resolved may use Imodium and/or Questran as needed -Volume overload possibly congestive heart failure chronic diastolic dysfunction with acute exacerbation the exacerbation is secondary to fludrocortisone, which has been discontinued -Chronic kidney disease stage 4: Secondary to diabetic nephropathy, received per [facility] catheter placement will need outpatient hemodialysis -Autonomic dysfunction for which patient is on fludrocortisone which has been discontinued -Type 2 diabetes mellitus uncontrolled elevated blood sugars: Continue sliding scale, hold long-acting insulin because of his hypoglycemic episodes. -Multiple bilateral lower extremity ulcers in healing stages secondary to diabetic peripheral neuropathy -Congestive heart failure chronic diastolic dysfunction with acute exacerbation -Secondary pulmonary hypertension due to CHF -COPD without any acute exacerbation quit smoking years ago -DVT prophylaxis: Subcutaneous heparin -full code Plan: Patient continues on IV daptomycin showing clinical improvement of the possible left outer aspect forearm abscess and infectious disease following. Patient has received permanent catheter for hemodialysis and case Management working on possible chair time in the outpatient setting. Patient is receiving hemodialysis today. Will also need home O2 assessment as patient and nursing staff state oxygen saturations have been dipping down at night and does not normally wear O2 in the outpatient setting. We'll repeat labs and continue to monitor blood sugars closely. Patient is extremely noncompliant with medications and diet restrictions and will need extensive education and close follow-up in the outpatient setting. Lengthy discussion had again with patient about diet and medication compliance. Patient continues to refuse Homecare at this time. Possible discharge in 24-48 hours.
[2021-03-15 16:58] LABS: Glucose,Whole Blood 253 mg/dL (75-99)
--- NOTE | 2021-03-15 17:41 | PN ---
PROGRESS NOTE Patient is seen for followup for acute kidney injury on top of chronic kidney disease. The patient has been started on dialysis. He is maintained on a Monday, Monday, Monday schedule. Patient is scheduled for hemodialysis today. He is complaining of increased abdominal distention. He denies any significant shortness of breath though. The patient states that he has had some urine output, although not as much as previously. PHYSICAL EXAMINATION: Blood pressure 137/72, heart rate 69 per minute, he is afebrile. Examination of the heart S1, S2. Examination of the lungs, decreased breath sounds at the bases. Abdomen is soft, nontender, distended with abdominal wall edema. Examination of lower extremities shows chronic skin changes. Multiple scars noted. No significant edema noted at this time. RESERVOIR ENGINEERING ADVISOR exam is grossly intact. LAB: Show hemoglobin 7.9, sodium 135, potassium 5.3, BUN 52, creatinine 4.39. ASSESSMENT: 1. Acute kidney injury on top of chronic kidney disease, currently started on dialysis. The patient is scheduled on a Monday, Monday, Monday schedule. He is volume overloaded as well today. I will increase the UF to 2.5 L as tolerated today. 2. Hyperkalemia, fairly stable expect further improvement with dialysis today. 3. Chronic kidney disease stage 3B to 4 secondary to diabetic kidney disease, baseline creatinine about 2-2.5 mg/dL. 4. History of acute kidney injury, mostly acute interstitial nephritis status post steroids. 5. Chronic diastolic congestive heart failure. 6. Anemia of chronic disease with iron deficiency status post IV iron maintained on Aranesp. 7. Chronic kidney disease, mineral bone disorder, maintained on PhosLo for hyperphosphatemia. 8. History of lower extremity cellulitis previously, currently with left arm cellulitis, being followed by Infectious Disease, maintained on daptomycin. PLAN: Hemodialysis today and will maintain patient on a Monday, Monday, Monday schedule. Awaiting outpatient chair time and placement. Continue with the diuretics for now and continue to monitor for recovery of renal function. MMODL / IJN: [id number] /
[2021-03-15 20:48] LABS: Glucose,Whole Blood 204 mg/dL (75-99)
--- NOTE | 2021-03-15 22:40 | PN ---
PROGRESS NOTE DATE OF SERVICE: 03/15/2021 REASON FOR FOLLOWUP: Left forearm abscess and cellulitis. INTERVAL HISTORY: The patient is afebrile. The patient is feeling better. The left forearm pain and swelling has slightly decreased. No chest pain, shortness of breath or cough. No abdominal pain, no diarrhea. PHYSICAL EXAMINATION: Blood pressure 123/69, pulse of 77, temperature 98.3. He is 95% on 2 L nasal cannula. General description is a middle-aged male lying in no distress. Respiratory system: Unlabored breathing, clear to auscultation anteriorly. Heart S1, S2. Regular rate and rhythm. Abdomen, soft, no tenderness. Left forearm swelling and redness has decreased. No drainage. No fluctuation. LABS: Hemoglobin is 7.1, white count 6.7, BUN of 52, creatinine 4.39. DIAGNOSTIC IMPRESSION AND PLAN: Patient with left forearm cellulitis with no evidence of any abscess. Clinically on daptomycin to continue for another 7-10 days to finish a course of therapy. Plan for dialysis. Continue supportive care. MMYINGL / JAN: [id number] /
[2021-03-16] MEDS: HEPARIN SODIUM,PORCINE/PF 5,000 UNIT/0.5 ML SYRINGE SQ SCH ×3 (00:25→16:14)
[2021-03-16] MEDS: ACETAMINOPHEN TAB 325 MG TAB PO PRN (03:36)
[2021-03-16 06:09] LABS: Glucose,Whole Blood 224 mg/dL (75-99)
[2021-03-16] MEDS: CALCIUM ACETATE 667 MG TAB PO SCH ×3 (06:10→16:14)
[2021-03-16] MEDS: INSULIN ASPART (NovoLOG) 100 UNIT/ML VIAL SQ SCH ×4 (06:10→20:48)
[2021-03-16] MEDS: PANTOPRAZOLE 40 MG TABLET PO SCH (06:10)
[2021-03-16] MEDS: SYMBICORT 80-4.5 MCG INHALER INHALATION SCH ×2 (07:35→19:10)
[2021-03-16 07:40] LABS: HCT 23.8 % (39.0-53.0); HGB 8.2 gm/dL (13.0-17.5); MCHC 34.4 g/dL (31.0-37.0); MCV 87.3 fL (80.0-100.0); Mean Platelet Volume 8.1; Platelet Count 194 k/uL (150-450); RBC 2.73 m/uL (4.30-5.90); RDW 15.4 % (11.5-15.5); WBC 5.2 k/uL (3.8-10.6)
[2021-03-16 07:56] LABS: Potassium 4.7 mmol/L (3.5-5.1)
[2021-03-16] MEDS: amLODIPine 5 MG TAB PO SCH (09:01)
[2021-03-16] MEDS: ISOSORBIDE MONONITRATE ER 30 MG TAB.ER.24H PO SCH (09:01)
[2021-03-16] MEDS: GABAPENTIN 100 MG CAP PO SCH ×3 (09:01→20:46)
[2021-03-16] MEDS: METOPROLOL TARTRATE 50 MG TAB PO SCH ×2 (09:02→20:46)
[2021-03-16] MEDS: ASPIRIN 81 MG PO SCH (09:02)
[2021-03-16] MEDS: DULoxetine HCL 60 MG CAPSULE.DR PO SCH (09:02)
[2021-03-16] MEDS: TOBRAMYCIN 0.3% OPHTH OINT 3.5 GM TUBE BOTH EYES SCH ×4 (09:02→20:50)
[2021-03-16] MEDS: CHOLESTYRAMINE (WITH SUGAR) 4 GM PACKET PO SCH ×2 (09:08→16:44)
[2021-03-16 11:50] LABS: Glucose,Whole Blood 207 mg/dL (75-99)
--- NOTE | 2021-03-16 12:57 | PN ---
PROGRESS NOTE DATE OF SERVICE: 03/16/2021 REASON FOR FOLLOWUP: Left forearm abscess and cellulitis. INTERVAL HISTORY: The patient is afebrile. The patient is breathing comfortably. Denies having any chest pain shortness of breath or cough. Left forearm pain and swelling have improved. The area of swelling has decreased. No drainage. PHYSICAL EXAMINATION: Blood pressure 156/84, pulse of 57, temperature 98.5. He is 98% on 2 L nasal cannula. General description is a middle-aged male lying in bed in no distress. Respiratory system: Unlabored breathing. Clear to auscultation anteriorly. Heart S1, S2. Regular rate and rhythm. Abdomen soft, no tenderness. The left forearm swelling and redness has decreased. LAB: Hemoglobin 8.1, white count of 5.2, BUN of 46, creatinine 3.90. DIAGNOSTIC IMPRESSION AND PLAN: Patient with left forearm abscess and cellulitis. Overall improvement on IV daptomycin to continue for another 7 doses with dialysis so we can avoid PICC line and close outpatient followup. MMODL / IJN: [id number] /
--- NOTE | 2021-03-16 13:17 | PN ---
PROGRESS NOTE Patient is seen for followup for acute kidney injury on top of chronic kidney disease. He is currently maintained on dialysis. Patient is having arrangements made for chair time at the [facility]. He will be maintained on a Monday, Monday, Monday schedule. PHYSICAL EXAMINATION: Blood pressure today is 156/84, heart rate 57 per minute, he is afebrile. Examination of the lower extremity shows no significant edema. Abdomen is soft, nontender, distended. The facial edema has improved significantly. PAPER WOOD CUTTER exam grossly intact. LAB: Show sodium 136, potassium 4.7, chloride 102 BUN 46, creatinine 3.9, hemoglobin 8.2 g/dL. ASSESSMENT: 1. Acute kidney injury, currently dialysis dependent. The patient will be maintained on a Monday, Monday, Monday schedule as outpatient. 2. Chronic kidney disease stage 4 secondary to diabetic kidney disease as well as history of acute interstitial nephritis, baseline about 2-2.5 mg/dL prior to his acute kidney injury. 3. Hyperkalemia, currently improved. 4. Volume overload, now improved. 5. Chronic kidney disease mineral bone disorder. 6. History of lower extremity cellulitis and left arm cellulitis, currently being followed by Infectious Disease, maintained on daptomycin. 7. Anemia of chronic disease with iron deficiency maintained on IV iron and Aranesp. PLAN: Patient is stable for discharge. We will arrange for dialysis tomorrow if he is still in the hospital. He will follow up as outpatient for dialysis on a Monday, Monday, Monday schedule. Daptomycin can be given at dialysis. He does not need a PICC line at this time. MMODL / IJN: [id number] /
--- NOTE | 2021-03-16 14:24 | P.PN ---
Subjective Progress Note Date: 03/16/21 51-year-old male with multiple chronic medical problems came in with the blurry vision which started about a week ago. Patient is found to have uncontrolled blood sugars. Patient does have history of congestive heart failure chronic diastolic dysfunction was comparing of shortness of breath unable to get clear history of orthopnea paroxysmal nocturnal dyspnea it's very hard to get history from the patient. Patient the visual problem his blurriness in both eyes. Patient denied any fever chills denied any significant cough. Patient is on 0.1 mg twice a day of hydrocortisone for autonomic dysfunction as per the previous documentation in this autonomic dysfunction was believed to be secondary to diabetes mellitus. Patient does have chronic kidney disease stage IV with baseline creatinine of around 2.8 and present creatinine is around 5. Patient has multiple chronic ulcerations of bilateral lower extremities which are presently in healing stages, none of them appear to be infected. Patient has some hypervolemic hyponatremia as well. Chest x-ray did show pulmonary edema and patient's BNP is highly elevated 03/06/2021 patient vision is getting better patient blood sugars are still high patient is a semiglutide. Patient the potassium is 5.3 will order Kayexalate. and 80 mg of IV Lasix patient the creatinine remains stable at 5.28 nephrology is a valid in the patient patient is an 80 mg twice a day of IV Lasix instead of which patient doesn't have any good urine output at this time. Because of continued elevation of blood sugars will add a long-acting insulin 12 units. 03/07/2021 Patient doesn't have any significant urine output. Patient creatinine is bit worse today chest x-ray showing clearing CHF, nephrology evaluated the patient is started him on IV fluids at this time creatinine is 5.94. Patient most probably will end up requiring hemodialysis. Patient cannot have gabapentin because of his acute renal failure. Serum potassium is 5.3 03/08/2021 Patient is seen and evaluated in follow-up this morning currently without IV access and no one in-house available for midline and nursing staff attempting IV access. Patient's creatinine is worse today at 5.66 with a BUN of 122, potassium is 5.2, sodium is 135, magnesium is 2.6. Nephrology following closely and plans are for dialysis catheter placement today to initiate hemodialysis. Patient is agreeable to this and will receive temporary catheter placement and start treatments. Patient continues to be lethargic although arousable and verbalizes understanding of treatment moving forward. Patient is maintained on sliding scale along with long-acting and will continue to monitor Accu-Cheks before meals and at bedtime. Patient also continues on gentle IV hydration and cardiology following. 03/09/2021 Patient is seen in follow-up continues to be lethargic although easily arousable. Continues with loose stools and not making much urine. Patient received a temporary dialysis catheter in the right femoral region and received a dose of dialysis yesterday and will continue with hemodialysis today and possibly tomorrow as well and nephrology following closely. Creatinine slightly improved at 4.6 this morning with a BUN of 87, sodium is 136 with a potassium of 5.1. Hemoglobin is stable at 8.3. Patient is receiving IV iron transfusions. Vital signs are stable and patient is afebrile. 03/10/2021 Patient is seen in follow up and continues to have loose stools. Will add anti- diarrheal and check to ensure cdiff testing was negative. Patient continues on hemodialysis with another session today and will monitor labs closely. Creatinine improving at 3.37 with a BUN of 59. Nephrology following closely. Discussion is being had about close monitoring of kidney functions with possibly requiring permacath placement for continued hemodialysis in the outpatient setting. Will need to discuss further with nephrology. Patient continues to have restless legs and twitching although states has improved since starting requip. Patient continues on neurontin as well. 03/11/2021 Patient is seen in follow-up and evaluated this morning with no acute overnight issues. States the diarrhea has resolved and is urinating although at a decreased output. Patient denies any dysuria or retention. Patient has been receiving hemodialysis and will not be receiving it today with nephrology following closely. Patient contains on gentle IV hydration of normal saline 50 mL per hour and will continue. White blood count is 7.1 and hemoglobin is stable at 8.6, sodium is 136 with a potassium of 4.5, BUN is 42 and current creatinine is 3.16. Blood sugars were controlled at this time. Patient denies any vomiting although is occasionally having some intermittent periods of nausea and has Zofran as needed. 03/12/2021 Patient is seen this morning and creatinine worsened at 3.96 and BUN is up at 50, sodium is 135 and potassium is 4.8. Discussed with nephrology along with vascular surgery and will have permanent dialysis catheter placed and will be working on a dialysis schedule and a chair time and case management following. Will continue current medication regimen for blood sugars and again discussed diet compliance. Patient is extremely noncompliant with medications and glucose monitoring in the outpatient setting. Patient is high risk for readmissions as he has had multiple hospitalizations most recently. Patient denies any chest pain, shortness of breath, or palpitations. Patient is afebrile. 03/13/2021 Patient is feeling bit short of breath I'll obtain a chest x-ray to make sure patient is not going into pulmonary edema again. Patient is also on morphine which is not advisable in end-stage dialysis patient morphine and will be discontinued at this time. Patient is on hemodialysis now. 03/14/2021 Patient chest x-ray did not show any significant abnormality patient has swelling on the left forearm dorsal aspect appears to be a small abscess with cellulitis. Patient will be started on vancomycin patient had history of MRSA in the past infectious disease will be consulted patient may need drainage of that abscess. 03/15/2021 Patient is seen in follow-up continues on IV antibiotics in the form of daptomycin and vancomycin has been discontinued. Infectious disease following closely. Patient continues with left forearm almost elbow area swelling with a scab noted and continued redness although slightly improved and will not require drainage at this time. This was discussed with infectious disease. Patient is being arranged for outpatient dialysis as kidney functions continue to worsen. Patient did recently receive a permanent catheter for continued hemodialysis. manager it security working on chair time and Homecare was offered although patient continues to refuse. Kidney functions were BUN of 52 and creatinine of 4.39 and currently receiving dialysis at this time. Sodium is 135 and potassium is 5.3. Hemoglobin is stable at 7.9. Patient continues on sliding scale and will continue to monitor Accu-Cheks before meals and at bedtime. Patient remains on 2 L of oxygen via nasal cannula denies shortness of breath although states his oxygen saturation has been dipping down per nursing staff. will do home O2 eval. 03/16/2021 Patient is seen this morning with no acute overnight issues. Patient continues on IV daptomycin and plans are for patient to continue receiving IV antibiotic therapy during hemodialysis appointments for the next 7-10 days in the outpatient setting. Case management following and dialysis is not there today to accommodate arranging for IV antibiotic therapy during dialysis and will be there in the morning. Patient is going to be scheduled on Monday/Monday/Monday hemodialysis appointments outpatient. Patient continues on 2 L via nasal cannula although oxygen saturations are 96-98% and will evaluate home oxygen assessment tomorrow prior to discharge to evaluate for possible home O2 in the outpatient setting. Hemoglobin is stable at 8.2 today, sodium is 136 with a potassium 4.7, current BUN is 46 and creatinine is 3.9. Blood sugar in the 200s and will continue with sliding scale for now. Constitutional: Reports of fatigue, denied any fever. Cardio vascular: denied any chest pain, palpitations Gastrointestinal denied any vomiting, reports diarrhea has resolved Pulmonary: Denied any shortness of breath cough Neurologic denied any new focal deficits Objective - Vital Signs Vital signs: Vital Signs Temp 98.3 F 03/15/21 16:00 Pulse 66 03/16/21 03:56 Resp 16 03/16/21 03:56 BP 164/77 03/16/21 03:56 Pulse Ox 96 03/16/21 03:56 Intake & Output 03/15/21 03/16/21 03/16/21 18:59 06:59 18:59 Intake Total 826 Output Total 2500 Balance -1674 Weight 96 kg Intake: Oral 826 Output: Hemodialysis 2500 Other: Voiding Method Toilet Urinal # Bowel Movements 1 - Exam GENERAL: The patient is alert and oriented x3, awake, not in any acute distress. Well developed, well nourished. Disheveled appearing, unkempt HEENT: Pupils are round and equally reacting to light. EOMI, blurriness is better now. No scleral icterus. No conjunctival pallor. Normocephalic, atraumatic. No pharyngeal erythema. No thyromegaly. CARDIOVASCULAR: S1 and S2 present. No murmurs, rubs, or gallops. Right chest wall port permacath noted PULMONARY: Chest is clear to auscultation, no wheezing or crackles. ABDOMEN: Soft, nontender, nondistended, normoactive bowel sounds. No palpable organomegaly. MUSCULOSKELETAL: No joint swelling or deformity. EXTREMITIES: No cyanosis, clubbing, or pedal edema. NEUROLOGICAL: Gross neurological examination did not reveal any focal deficits. SKIN: Multiple stage I and stage II ulcerations in bilateral lower extremities in multiple healing stages, with multiple scabs noted as well, left forearm outer aspect scabbing with abscess and redness noted with some decrease in inflammation noted as well. - Labs CBC & Chem 7: 03/16/21 07:14 03/16/21 07:14 Labs: Abnormal Lab Results - Last 24 Hours (Table) 03/15/21 03/15/21 03/15/21 Range/Units 12:05 16:57 20:47 RBC (4.30-5.90) m/uL Hgb (13.0-17.5) gm/dL Hct (39.0-53.0) % Sodium (137-145) mmol/L BUN (9-20) mg/dL Creatinine (0.66-1.25) mg/dL Glucose (74-99) mg/dL POC Glucose (mg/dL) 222 H 253 H 204 H (75-99) mg/dL Calcium (8.4-10.2) mg/dL 03/16/21 03/16/21 03/16/21 Range/Units 06:07 07:14 07:14 RBC 2.73 L (4.30-5.90) m/uL Hgb 8.2 L (13.0-17.5) gm/dL Hct 23.8 L (39.0-53.0) % Sodium 136 L (137-145) mmol/L BUN 46 H (9-20) mg/dL Creatinine 3.90 H (0.66-1.25) mg/dL Glucose 205 H (74-99) mg/dL POC Glucose (mg/dL) 224 H (75-99) mg/dL Calcium 8.0 L (8.4-10.2) mg/dL Assessment and Plan Assessment: -Acute renal failure: Prerenal azotemia probably secondary to congestive heart failure or volume overload on admission, most likely cardiorenal. Patient has received permacath placement and case management working on chair time for the outpatient setting -Possible abscess in the left arm: Patient on IV daptomycin and infectious disease following with no plans for I&D at this time showing clinical improvement, patient will have outpatient daptomycin during dialysis for the next 7-10 days once arranged by case management -restless leg syndrome; on Requip with improvement and will continue with current dose -Blurry vision probably secondary to hyperglycemia, improved -diarrhea, resolved may use Imodium and/or Questran as needed -Volume overload possibly congestive heart failure chronic diastolic dysfunction with acute exacerbation the exacerbation is secondary to fludrocortisone, which has been discontinued -Chronic kidney disease stage 4: Secondary to diabetic nephropathy, received permanent catheter placement and currently being arranged for outpatient hemodialysis -Autonomic dysfunction for which patient is on fludrocortisone which has been discontinued -Type 2 diabetes mellitus uncontrolled elevated blood sugars: Continue sliding scale -Multiple bilateral lower extremity ulcers in healing stages secondary to diabetic peripheral neuropathy -Congestive heart failure chronic diastolic dysfunction with acute exacerbation -Secondary pulmonary hypertension due to CHF -COPD without any acute exacerbation quit smoking years ago -DVT prophylaxis: Subcutaneous heparin -full code Plan: Patient continues on IV daptomycin showing clinical improvement of the possible left outer aspect forearm abscess and infectious disease following. Patient will continue in the outpatient setting and received IV daptomycin during hemodialysis treatments on Monday/Monday/Monday for a period of 7-10 sessions. Patient will need close outpatient follow-up at the wound care center with Dr. Milligan. Patient has received permanent catheter for hemodialysis and case Management working on possible chair time in the outpatient setting. Will also need home O2 assessment as patient continues to be on 2 L although saturating 96-98%. We'll continue to monitor blood sugars closely. Patient is extremely noncompliant with medications and diet restrictions and will need extensive education and close follow-up in the outpatient setting. Lengthy discussion had again with patient about diet and medication compliance. Possible discharge in 24 hours once antibiotic arrangements have been made with the dialysis center.
[2021-03-16 16:19] LABS: Glucose,Whole Blood 306 mg/dL (75-99)
[2021-03-16 16:21] LABS: Hemoglobin A1C 11.7 % (4.0-6.0)
[2021-03-16 20:10] LABS: Glucose,Whole Blood 304 mg/dL (75-99)
[2021-03-17] MEDS: HEPARIN SODIUM,PORCINE/PF 5,000 UNIT/0.5 ML SYRINGE SQ SCH ×4 (01:49→23:23)
[2021-03-17 06:07] LABS: Glucose,Whole Blood 287 mg/dL (75-99)
[2021-03-17] MEDS: CALCIUM ACETATE 667 MG TAB PO SCH ×3 (06:25→17:00)
[2021-03-17] MEDS: PANTOPRAZOLE 40 MG TABLET PO SCH (06:25)
[2021-03-17] MEDS: INSULIN ASPART (NovoLOG) 100 UNIT/ML VIAL SQ SCH ×4 (06:25→21:00)
[2021-03-17] MEDS: ASPIRIN 81 MG PO SCH (08:04)
[2021-03-17] MEDS: GABAPENTIN 100 MG CAP PO SCH ×3 (08:05→20:58)
[2021-03-17] MEDS: METOPROLOL TARTRATE 50 MG TAB PO SCH ×2 (08:05→20:58)
[2021-03-17] MEDS: ISOSORBIDE MONONITRATE ER 30 MG TAB.ER.24H PO SCH (08:05)
[2021-03-17] MEDS: DULoxetine HCL 60 MG CAPSULE.DR PO SCH (08:05)
[2021-03-17] MEDS: amLODIPine 5 MG TAB PO SCH (08:05)
[2021-03-17] MEDS: TOBRAMYCIN 0.3% OPHTH OINT 3.5 GM TUBE BOTH EYES SCH ×4 (08:06→21:22)
[2021-03-17] MEDS: CHOLESTYRAMINE (WITH SUGAR) 4 GM PACKET PO SCH ×2 (08:06→15:39)
[2021-03-17] MEDS: SYMBICORT 80-4.5 MCG INHALER INHALATION SCH ×2 (08:40→21:12)
[2021-03-17 09:51] LABS: Potassium 5.5 mmol/L (3.5-5.1)
[2021-03-17] MEDS: INSULIN DETEMIR (LEVEMIR) 100 UNIT/ML SYR SQ SCH (11:32)
[2021-03-17 11:44] LABS: Glucose,Whole Blood 333 mg/dL (75-99)
--- NOTE | 2021-03-17 11:46 | PN ---
PROGRESS NOTE Patient is seen for followup for acute kidney injury on top of chronic kidney disease. He is currently maintained on dialysis. Plans are for discharge today with continued outpatient dialysis. PHYSICAL EXAMINATION: On examination today, blood pressure was 130/62, heart rate 72 per minute. Patient is afebrile. Examination of the heart S1, S2. Examination of the lungs, bilateral breath sounds are heard. Abdomen is soft, nontender. There is abdominal wall edema noted. Exam of lower extremities shows no significant edema. Multiple scratch berumen and/or scabs are noted. LABORATORY CLERK exam grossly intact. LAB: Show sodium 135, potassium 5.5, chloride 102, BUN 55, creatinine 4.13. ASSESSMENT: 1. Acute kidney injury on top of chronic kidney disease mostly acute tubular necrosis, currently on hemodialysis. The patient will continue with the outpatient dialysis. 2. Volume overload slowly improving. 3. Chronic kidney disease, mineral bone disorder, maintained on PhosLo. 4. Cellulitis, maintained on daptomycin which patient can continue at home. Previously he had lower extremity cellulitis, currently it is mostly in the left arm. 5. Anemia of chronic disease. Maintained on Aranesp. PLAN: Hemodialysis today and continue dialysis as outpatient. The patient will be discharged on daptomycin which can be given with hemodialysis. MMODL / IJN: [id number] /
--- NOTE | 2021-03-17 12:25 | XR ---
EXAMINATION TYPE: XR chest 1V portable DATE OF EXAM: 03/17/2021 COMPARISON: 03/13/2021 HISTORY: SOB, Follow Up FINDINGS: Stable right basilar infiltrate and/or atelectasis with pleural effusion. Linear atelectasis left mid lung zone. Stable appearance of the cardio-mediastinal structures at this time. Large bore central venous line unchanged in position. IMPRESSION: 1. Stable portable chest. Clinical correlation and follow up until resolution is recommended.
--- NOTE | 2021-03-17 15:34 | P.DS ---
Providers Date of admission: 03/05/21 00:27 Expected date of discharge: 03/17/21 Attending physician: Niko Coffey Consults: 03/05/21 00:10 Consult Physician Routine Consulting Provider: Rito Christine Consult Reason/Comments: Acute on chronic renal failure Do you want consulting provider notified?: Yes 03/12/21 10:39 Consult Physician Urgent Consulting Provider: Shaun Adrian Consult Reason/Comments: needs permacath for outpatient dialysis/ recently placed temp cath Do you want consulting provider notified?: Yes 03/14/21 06:42 Consult Physician Routine Consulting Provider: Shaan Milligan Consult Reason/Comments: abscess left arm Do you want consulting provider notified?: Yes Primary care physician: Meet Fontanez Hospital Course: Final diagnosis -Acute renal failure: Prerenal azotemia probably secondary to congestive heart failure or volume overload on admission, most likely cardiorenal. -Status post permacath dialysis catheter placement and will continue on hemodialysis Monday/Monday/Monday -Possible abscess in the left arm -restless leg syndrome -Blurry vision probably secondary to hyperglycemia, improved -diarrhea, resolved -Volume overload possibly congestive heart failure chronic diastolic dysfunction with acute exacerbation the exacerbation is secondary to fludrocortisone, which has been discontinued -Chronic kidney disease stage 4: Secondary to diabetic nephropathy -Autonomic dysfunction -Type 2 diabetes mellitus uncontrolled elevated blood sugars -Multiple bilateral lower extremity ulcers in healing stages secondary to diab etic peripheral neuropathy -Congestive heart failure chronic diastolic dysfunction with acute exacerbation -Secondary pulmonary 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 Patient will follow-up with Dr. Meet Ley in the outpatient setting upon discharge. Patient will also follow-up with cardiology, nephrology, vascular surgery, infectious disease in the outpatient setting. Patient will continue with daptomycin during hemodialysis on Monday/ Monday/Monday for 7- 10 sessions and needs close outpatient follow-up with infectious disease Dr. Milligan at the wound center. Total time taken is greater than 35 minutes. Hospital course 51-year-old male with multiple chronic medical problems came in with the blurry vision which started about a week ago. Patient is found to have uncontrolled blood sugars. Patient does have history of congestive heart failure chronic diastolic dysfunction was comparing of shortness of breath unable to get clear history of orthopnea paroxysmal nocturnal dyspnea it's very hard to get history from the patient. Patient the visual problem his blurriness in both eyes. Patient denied any fever chills denied any significant cough. Patient is on 0.1 mg twice a day of hydrocortisone for autonomic dysfunction as per the previous documentation in this autonomic dysfunction was believed to be secondary to diabetes mellitus. Patient does have chronic kidney disease stage IV with baseline creatinine of around 2.8 and present creatinine is around 5. Patient has multiple chronic ulcerations of bilateral lower extremities which are presently in healing stages, none of them appear to be infected. Patient has some hypervolemic hyponatremia as well. Chest x-ray did show pulmonary edema and patient's BNP is highly elevated 03/12/2021 Patient is seen this morning and creatinine worsened at 3.96 and BUN is up at 50, sodium is 135 and potassium is 4.8. Discussed with nephrology along with vascular surgery and will have permanent dialysis catheter placed and will be working on a dialysis schedule and a chair time and case management following. Will continue current medication regimen for blood sugars and again discussed diet compliance. Patient is extremely noncompliant with medications and glucose monitoring in the outpatient setting. Patient is high risk for readmissions as he has had multiple hospitalizations most recently. Patient denies any chest pain, shortness of breath, or palpitations. Patient is afebrile. 03/13/2021 Patient is feeling bit short of breath I'll obtain a chest x-ray to make sure patient is not going into pulmonary edema again. Patient is also on morphine which is not advisable in end-stage dialysis patient morphine and will be discontinued at this time. Patient is on hemodialysis now. 03/14/2021 Patient chest x-ray did not show any significant abnormality patient has swelling on the left forearm dorsal aspect appears to be a small abscess with cellulitis. Patient will be started on vancomycin patient had history of MRSA in the past infectious disease will be consulted patient may need drainage of that abscess. 03/15/2021 Patient is seen in follow-up continues on IV antibiotics in the form of daptomycin and vancomycin has been discontinued. Infectious disease following closely. Patient continues with left forearm almost elbow area swelling with a scab noted and continued redness although slightly improved and will not require drainage at this time. This was discussed with infectious disease. Patient is being arranged for outpatient dialysis as kidney functions continue to worsen. Patient did recently receive a permanent catheter for continued hemodialysis. manager play working on chair time and Homecare was offered although patient continues to refuse. Kidney functions were BUN of 52 and creatinine of 4.39 and currently receiving dialysis at this time. Sodium is 135 and potassium is 5.3. Hemoglobin is stable at 7.9. Patient continues on sliding scale and will continue to monitor Accu-Cheks before meals and at bedtime. Patient remains on 2 L of oxygen via nasal cannula denies shortness of breath although states his oxygen saturation has been dipping down per nursing staff. will do home O2 eval. 03/16/2021 Patient is seen this morning with no acute overnight issues. Patient continues on IV daptomycin and plans are for patient to continue receiving IV antibiotic therapy during hemodialysis appointments for the next 7-10 days in the outpatient setting. Case management following and dialysis is not there today to accommodate arranging for IV antibiotic therapy during dialysis and will be there in the morning. Patient is going to be scheduled on Monday/Monday/Monday hemodialysis appointments outpatient. Patient continues on 2 L via nasal cannula although oxygen saturations are 96-98% and will evaluate home oxygen assessment tomorrow prior to discharge to evaluate for possible home O2 in the outpatient setting. Hemoglobin is stable at 8.2 today, sodium is 136 with a potassium 4.7, current BUN is 46 and creatinine is 3.9. Blood sugar in the 200s and will continue with sliding scale for now. 03/17/2021 Patient is seen in follow-up this morning and continues to have some occasional shortness of breath and oxygen saturations dipping down into the 80s on room air while at rest and will require home oxygen due to congestive heart failure. Arrangements have been made for patient to continue with daptomycin during dialysis treatments on Monday/Monday/Monday and needs close outpatient follow-up with infectious disease in 1-2 weeks. Patient also needs follow-up with nephrology, cardiology, and his primary care provider upon discharge. Patient will continue with insulin sliding scale along with long-acting and again discussed, educated, instructed the patient on diet modification and compliance with medications and follow-up appointments. Patient admits to noncompliance with medications and continue treatment plan. Patient continues to refuse Homecare stating he has help in the home. Patient is scheduled to receive hemodialysis today and will continue in the outpatient setting with his next session on Monday. Patient states he does have transportation to hemodialysis in [place]. Chest x-ray was done today showing Currently no reports of chest pain, shortness of breath, or palpitations. Patient is afebrile. No reports of nausea or vomiting and patient is tolerating diet. Guarded prognosis secondary to multiple readmissions for treatment and medication noncompliance On exam vital signs are stable. Cardio S1, S2 are muffled. Respiratory system shows diminished breath sounds at the bases with no wheezing or rhonchi noted. Abdomen is soft and nontender. Nervous system shows no focal deficits. Please refer to medication reconciliation sheet for a list of medications. Patient Condition at Discharge: Fair Plan - Discharge Summary Discharge Rx Participant: No New Discharge Prescriptions: New Darbepoetin Andrez [Aranesp] 40 mcg SQ Q7D syringe Furosemide [Lasix] 80 mg PO BID@0900,1600 #60 tab Insulin Detemir (Levemir) [Levemir] 10 unit SQ DAILY@0700 30 Days #4 syr Gabapentin [Neurontin] 100 mg PO TID #12 cap Calcium Acetate [PhosLo] 667 mg PO TID-W/MEALS #90 tab rOPINIRole HCL [Requip] 0.5 mg PO DAILY #60 tab amLODIPine [Norvasc] 5 mg PO DAILY #30 tab Continue Omeprazole [PriLOSEC] 40 mg PO -[facility] #14 capsule. DULoxetine HCL [Cymbalta] 60 mg PO DAILY Acetaminophen Tab [Tylenol] 650 mg PO Q4H PRN PRN Reason: Mild Pain Or Fever > 100.5 Albuterol Sulfate [Proair Hfa] 2 puff INHALATION RT-Q6H PRN PRN Reason: Shortness Of Breath Semaglutide [Ozempic] 1 mg SQ MO Atorvastatin [Lipitor] 40 mg PO DAILY #30 tab Fluticasone/Salmeterol [Advair 250-50 Diskus] 1 puff INHALATION RT-BID Nitroglycerin Sl Tabs [Nitrostat] 0.4 mg SL Q5M PRN PRN Reason: Chest Pain Isosorbide Mononitrate ER [Imdur] 30 mg PO DAILY #30 tab.er.24h Ondansetron [Zofran] 4 mg PO TID PRN PRN Reason: Nausea INSULIN ASPART (NovoLOG) [NovoLOG (formulary)] See Protocol SQ ACHS Metoprolol Tartrate [Lopressor] 50 mg PO BID 30 Days #60 tab Aspirin 81 mg PO DAILY #30 chewable traZODone HCL [Desyrel] 100 mg PO HS PRN PRN Reason: Insomnia Discontinued Gabapentin 800 mg PO TID amLODIPine [Norvasc] 10 mg PO DAILY #30 tab Fludrocortisone [Florinef] 0.1 mg PO BID #60 tab Furosemide [Lasix] 40 mg PO BID PRN PRN Reason: Edema Discharge Medication List Omeprazole [PriLOSEC] 40 mg PO AC-BRKT #14 capsule.dr 11/04/19 [Rx] DULoxetine HCL [Cymbalta] 60 mg PO DAILY 04/01/20 [History] Acetaminophen Tab [Tylenol] 650 mg PO Q4H PRN 07/25/20 [History] Albuterol Sulfate [Proair Hfa] 2 puff INHALATION RT-Q6H PRN 07/25/20 [History] Semaglutide [Ozempic] 1 mg SQ MO 10/03/20 [History] Atorvastatin [Lipitor] 40 mg PO DAILY #30 tab 10/13/20 [Rx] Fluticasone/Salmeterol [Advair 250-50 Diskus] 1 puff INHALATION RT-BID 12/16/20 [History] Nitroglycerin Sl Tabs [Nitrostat] 0.4 mg SL Q5M PRN 12/16/20 [History] Ondansetron [Zofran] 4 mg PO TID PRN 12/16/20 [History] INSULIN ASPART (NovoLOG) [NovoLOG (formulary)] See Protocol SQ ACHS 01/04/21 [History] Metoprolol Tartrate [Lopressor] 50 mg PO BID 30 Days #60 tab 01/14/21 [Rx] Aspirin 81 mg PO DAILY #30 chewable 01/18/21 [Rx] Isosorbide Mononitrate ER [Imdur] 30 mg PO DAILY #30 tab.er.24h 02/11/21 [Rx] traZODone HCL [Desyrel] 100 mg PO HS PRN 03/05/21 [History] Calcium Acetate [PhosLo] 667 mg PO TID-W/MEALS #90 tab 03/17/21 [Rx] Darbepoetin Andrez [Aranesp] 40 mcg SQ Q7D syringe 03/17/21 [Rx] Furosemide [Lasix] 80 mg PO BID@0900,1600 #60 tab 03/17/21 [Rx] Gabapentin [Neurontin] 100 mg PO TID #12 cap 03/17/21 [Rx] Insulin Detemir (Levemir) [Levemir] 10 unit SQ DAILY@0700 30 Days #4 syr 03/17/21 [Rx] amLODIPine [Norvasc] 5 mg PO DAILY #30 tab 03/17/21 [Rx] rOPINIRole HCL [Requip] 0.5 mg PO DAILY #60 tab 03/17/21 [Rx] Follow up Appointment(s)/Referral(s): Payton Rodgers MD [STAFF PHYSICIAN] - 1 Week Meet Fontanez DO [Primary Care Provider] - 1-2 days Shaun Adrian DO [STAFF PHYSICIAN] - 2 Weeks Shaan Milligan MD [STAFF PHYSICIAN] - 1 Week Patient Instructions/Handouts: Heart Failure (GEN), Chronic Kidney Disease Diet (GEN), Dialysis Diet (GEN), Low-Sodium Diet (DC), Low-Sodium Diet (GEN), Hemodialysis (DC), Type 2 Diabetes Management for Adults (GEN) Activity/Diet/Wound Care/Special Instructions: Hemodialysis at [facility] - Monday, Monday, Monday @2:15 p.m. - first date of dialysis tentatively Mon03/17/21 @2:00 p.m. Patient requires home oxygen at discharge secondary to hypoxia from CHF Activity Limited until follow-up Follow-up with primary care provider upon discharge Follow-up cardiology outpatient Follow-up nephrology outpatient Continue with hemodialysis as scheduled Continue with daptomycin during dialysis Follow-up with infectious disease [facility] Doctor Srini in one week Continue to monitor blood sugars before meals and at bedtime NovoLog sliding scale 0-150 equals 0 units 151-200 equals 2 units 201-250 equals 4 units 251-300 equals 6 units 301-350 equals 8 units 351-400 equals 10 units Please notify provider if blood sugar is 400 or above Continue with long-acting insulin 10 units daily Continue with incentive spirometer at least 10 times every 1 hour while awake Continue heart healthy diabetic renal diet Continue with low potassium, low phosphorus, low salt diet Must be compliant with medications prescribed along with dialysis treatments Discharge Disposition: HOME SELF-CARE
--- NOTE | 2021-03-17 15:40 | P.PN ---
Subjective Progress Note Date: 03/17/21 51-year-old male with multiple chronic medical problems came in with the blurry vision which started about a week ago. Patient is found to have uncontrolled blood sugars. Patient does have history of congestive heart failure chronic diastolic dysfunction was comparing of shortness of breath unable to get clear history of orthopnea paroxysmal nocturnal dyspnea it's very hard to get history from the patient. Patient the visual problem his blurriness in both eyes. Patient denied any fever chills denied any significant cough. Patient is on 0.1 mg twice a day of hydrocortisone for autonomic dysfunction as per the previous documentation in this autonomic dysfunction was believed to be secondary to diabetes mellitus. Patient does have chronic kidney disease stage IV with baseline creatinine of around 2.8 and present creatinine is around 5. Patient has multiple chronic ulcerations of bilateral lower extremities which are presently in healing stages, none of them appear to be infected. Patient has some hypervolemic hyponatremia as well. Chest x-ray did show pulmonary edema and patient's BNP is highly elevated 03/06/2021 patient vision is getting better patient blood sugars are still high patient is a semiglutide. Patient the potassium is 5.3 will order Kayexalate. and 80 mg of IV Lasix patient the creatinine remains stable at 5.28 nephrology is a valid in the patient patient is an 80 mg twice a day of IV Lasix instead of which patient doesn't have any good urine output at this time. Because of continued elevation of blood sugars will add a long-acting insulin 12 units. 03/07/2021 Patient doesn't have any significant urine output. Patient creatinine is bit worse today chest x-ray showing clearing CHF, nephrology evaluated the patient is started him on IV fluids at this time creatinine is 5.94. Patient most probably will end up requiring hemodialysis. Patient cannot have gabapentin because of his acute renal failure. Serum potassium is 5.3 03/08/2021 Patient is seen and evaluated in follow-up this morning currently without IV access and no one in-house available for midline and nursing staff attempting IV access. Patient's creatinine is worse today at 5.66 with a BUN of 122, potassium is 5.2, sodium is 135, magnesium is 2.6. Nephrology following closely and plans are for dialysis catheter placement today to initiate hemodialysis. Patient is agreeable to this and will receive temporary catheter placement and start treatments. Patient continues to be lethargic although arousable and verbalizes understanding of treatment moving forward. Patient is maintained on sliding scale along with long-acting and will continue to monitor Accu-Cheks before meals and at bedtime. Patient also continues on gentle IV hydration and cardiology following. 03/09/2021 Patient is seen in follow-up continues to be lethargic although easily arousable. Continues with loose stools and not making much urine. Patient received a temporary dialysis catheter in the right femoral region and received a dose of dialysis yesterday and will continue with hemodialysis today and possibly tomorrow as well and nephrology following closely. Creatinine slightly improved at 4.6 this morning with a BUN of 87, sodium is 136 with a potassium of 5.1. Hemoglobin is stable at 8.3. Patient is receiving IV iron transfusions. Vital signs are stable and patient is afebrile. 03/10/2021 Patient is seen in follow up and continues to have loose stools. Will add anti- diarrheal and check to ensure cdiff testing was negative. Patient continues on hemodialysis with another session today and will monitor labs closely. Creatinine improving at 3.37 with a BUN of 59. Nephrology following closely. Discussion is being had about close monitoring of kidney functions with possibly requiring permacath placement for continued hemodialysis in the outpatient setting. Will need to discuss further with nephrology. Patient continues to have restless legs and twitching although states has improved since starting requip. Patient continues on neurontin as well. 03/11/2021 Patient is seen in follow-up and evaluated this morning with no acute overnight issues. States the diarrhea has resolved and is urinating although at a decreased output. Patient denies any dysuria or retention. Patient has been receiving hemodialysis and will not be receiving it today with nephrology following closely. Patient contains on gentle IV hydration of normal saline 50 mL per hour and will continue. White blood count is 7.1 and hemoglobin is stable at 8.6, sodium is 136 with a potassium of 4.5, BUN is 42 and current creatinine is 3.16. Blood sugars were controlled at this time. Patient denies any vomiting although is occasionally having some intermittent periods of nausea and has Zofran as needed. 03/12/2021 Patient is seen this morning and creatinine worsened at 3.96 and BUN is up at 50, sodium is 135 and potassium is 4.8. Discussed with nephrology along with vascular surgery and will have permanent dialysis catheter placed and will be working on a dialysis schedule and a chair time and case management following. Will continue current medication regimen for blood sugars and again discussed diet compliance. Patient is extremely noncompliant with medications and glucose monitoring in the outpatient setting. Patient is high risk for readmissions as he has had multiple hospitalizations most recently. Patient denies any chest pain, shortness of breath, or palpitations. Patient is afebrile. 03/13/2021 Patient is feeling bit short of breath I'll obtain a chest x-ray to make sure patient is not going into pulmonary edema again. Patient is also on morphine which is not advisable in end-stage dialysis patient morphine and will be discontinued at this time. Patient is on hemodialysis now. 03/14/2021 Patient chest x-ray did not show any significant abnormality patient has swelling on the left forearm dorsal aspect appears to be a small abscess with cellulitis. Patient will be started on vancomycin patient had history of MRSA in the past infectious disease will be consulted patient may need drainage of that abscess. 03/15/2021 Patient is seen in follow-up continues on IV antibiotics in the form of daptomycin and vancomycin has been discontinued. Infectious disease following closely. Patient continues with left forearm almost elbow area swelling with a scab noted and continued redness although slightly improved and will not require drainage at this time. This was discussed with infectious disease. Patient is being arranged for outpatient dialysis as kidney functions continue to worsen. Patient did recently receive a permanent catheter for continued hemodialysis. corporate manager working on chair time and Homecare was offered although patient continues to refuse. Kidney functions were BUN of 52 and creatinine of 4.39 and currently receiving dialysis at this time. Sodium is 135 and potassium is 5.3. Hemoglobin is stable at 7.9. Patient continues on sliding scale and will continue to monitor Accu-Cheks before meals and at bedtime. Patient remains on 2 L of oxygen via nasal cannula denies shortness of breath although states his oxygen saturation has been dipping down per nursing staff. will do home O2 eval. 03/16/2021 Patient is seen this morning with no acute overnight issues. Patient continues on IV daptomycin and plans are for patient to continue receiving IV antibiotic therapy during hemodialysis appointments for the next 7-10 days in the outpatient setting. Case management following and dialysis is not there today to accommodate arranging for IV antibiotic therapy during dialysis and will be there in the morning. Patient is going to be scheduled on Monday/Monday/Monday hemodialysis appointments outpatient. Patient continues on 2 L via nasal cannula although oxygen saturations are 96-98% and will evaluate home oxygen assessment tomorrow prior to discharge to evaluate for possible home O2 in the outpatient setting. Hemoglobin is stable at 8.2 today, sodium is 136 with a potassium 4.7, current BUN is 46 and creatinine is 3.9. Blood sugar in the 200s and will continue with sliding scale for now. 03/17/2021 Patient is seen in follow-up this morning and continues to have some occasional shortness of breath and oxygen saturations dipping down into the 80s on room air while at rest and will require home oxygen due to congestive heart failure. Arrangements have been made for patient to continue with daptomycin during dialysis treatments on Monday/Monday/Monday and needs close outpatient follow-up with infectious disease in 1-2 weeks. Patient also needs follow-up with nephrology, cardiology, and his primary care provider upon discharge. Patient will continue with insulin sliding scale along with long-acting and again discussed, educated, instructed the patient on diet modification and compliance with medications and follow-up appointments. Patient admits to noncompliance with medications and continue treatment plan. Patient continues to refuse Homecare stating he has help in the home. Patient is scheduled to receive hemodialysis today and will continue in the outpatient setting with his next session on Monday. Patient states he does have transportation to hemodialysis in [place]. Chest x-ray was done today showing Currently no reports of chest pain, shortness of breath, or palpitations. Patient is afebrile. No reports of nausea or vomiting and patient is tolerating diet. Guarded prognosis secondary to multiple readmissions for treatment and medication noncompliance On exam vital signs are stable. Cardio S1, S2 are muffled. Respiratory system shows diminished breath sounds at the bases with no wheezing or rhonchi noted. Abdomen is soft and nontender. Nervous system shows no focal deficits. Patient was scheduled to be discharged today although just completed hemodialysis and continues to wait for home oxygen to be delivered and patient states he feels exhausted after dialysis and would like to discharge in the morning. Will discharge in the a.m. after receiving oxygen tanks. Incentive spirometer ordered and instructed the patient to continue using 10 times every hour while awake. Patient also encouraged to increase activity as he has been mostly laying in the bed throughout most of this hospitalization. Again, stressed the importance of medication, diet, medical treatment, and follow-up outpatient compliance is of importance. Patient most likely meets criteria for palliative and will discuss this with patient. Constitutional: Reports of fatigue, denied any fever. Cardio vascular: denied any chest pain, palpitations Gastrointestinal denied any vomiting, reports diarrhea has resolved Pulmonary: Denied any shortness of breath cough Neurologic denied any new focal deficits Objective - Vital Signs Vital signs: Vital Signs Temp 98.0 F 03/17/21 15:07 Pulse 74 03/17/21 15:07 Resp 18 03/17/21 15:07 BP 160/72 03/17/21 15:07 Pulse Ox 91 L 03/17/21 11:34 Intake & Output 03/16/21 03/17/21 03/17/21 18:59 06:59 18:59 Intake Total 480 480 Output Total 2500 Balance 480 -2020 Weight 94.5 kg Intake: Oral 480 480 Output: Hemodialysis 2500 Other: Voiding Method Toilet Toilet Urinal Urinal - Exam GENERAL: The patient is alert and oriented x3, awake, not in any acute distress. Well developed, well nourished. Disheveled appearing, unkempt HEENT: Pupils are round and equally reacting to light. EOMI, blurriness is better now. No scleral icterus. No conjunctival pallor. Normocephalic, atraumatic. No pharyngeal erythema. No thyromegaly. CARDIOVASCULAR: S1 and S2 present. No murmurs, rubs, or gallops. Right chest wall port permacath noted PULMONARY: Diminished otherwise Chest is clear to auscultation, no wheezing or crackles. ABDOMEN: Soft, nontender, nondistended, normoactive bowel sounds. No palpable organomegaly. MUSCULOSKELETAL: No joint swelling or deformity. EXTREMITIES: No cyanosis, clubbing, or pedal edema. NEUROLOGICAL: Gross neurological examination did not reveal any focal deficits. SKIN: Multiple stage I and stage II ulcerations in bilateral lower extremities in multiple healing stages, with multiple scabs noted as well, left forearm outer aspect scabbing with abscess and redness noted with some decrease in inflammation noted as well. - Labs CBC & Chem 7: 03/16/21 07:14 03/17/21 09:12 Labs: Abnormal Lab Results - Last 24 Hours (Table) 03/16/21 03/16/21 03/16/21 Range/Units 07:14 16:18 20:08 Sodium (137-145) mmol/L Potassium (3.5-5.1) mmol/L BUN (9-20) mg/dL Creatinine (0.66-1.25) mg/dL Glucose (74-99) mg/dL POC Glucose (mg/dL) 306 H 304 H (75-99) mg/dL Hemoglobin A1c 11.7 H (4.0-6.0) % Calcium (8.4-10.2) mg/dL 03/17/21 03/17/21 03/17/21 Range/Units 06:05 09:12 11:43 Sodium 135 L (137-145) mmol/L Potassium 5.5 H (3.5-5.1) mmol/L BUN 55 H (9-20) mg/dL Creatinine 4.13 H (0.66-1.25) mg/dL Glucose 324 H (74-99) mg/dL POC Glucose (mg/dL) 287 H 333 H (75-99) mg/dL Hemoglobin A1c (4.0-6.0) % Calcium 8.0 L (8.4-10.2) mg/dL Assessment and Plan Assessment: -Acute renal failure: Prerenal azotemia probably secondary to congestive heart failure or volume overload on admission, most likely cardiorenal. Patient has received permacath placement and case management working on chair time for the outpatient setting -Possible abscess in the left arm: Patient on IV daptomycin and infectious disease following with no plans for I&D at this time showing clinical improvement, patient will have outpatient daptomycin during dialysis for the next 7-10 days once arranged by case management -restless leg syndrome; on Requip with improvement and will continue with current dose -Blurry vision probably secondary to hyperglycemia, improved -diarrhea, resolved may use Imodium and/or Questran as needed -Volume overload possibly congestive heart failure chronic diastolic dysfunction with acute exacerbation the exacerbation is secondary to fludrocortisone, which has been discontinued -Chronic kidney disease stage 4: Secondary to diabetic nephropathy, received permanent catheter placement and currently being arranged for outpatient hemodialysis -Autonomic dysfunction for which patient is on fludrocortisone which has been discontinued -Type 2 diabetes mellitus uncontrolled elevated blood sugars: Continue sliding scale -Multiple bilateral lower extremity ulcers in healing stages secondary to diabetic peripheral neuropathy -Congestive heart failure chronic diastolic dysfunction with acute exacerbation -Secondary pulmonary hypertension due to CHF -COPD without any acute exacerbation quit smoking years ago -DVT prophylaxis: Subcutaneous heparin -full code Plan: Patient continues on IV daptomycin showing clinical improvement of the possible left outer aspect forearm abscess and infectious disease following. Patient will continue in the outpatient setting and received IV daptomycin during hemodialysis treatments on Monday/Monday/Monday for a period of 7-10 sessions. Patient receiving hemodialysis today and continues to be lethargic and states he feels exhausted and continues to wait for oxygen to be delivered prior to discharge. Will hold and observe patient overnight and await for oxygen takes to be delivered prior to discharge. Patient will need close outpat ient follow-up at the wound care center with Dr. Milligan. Patient is extremely noncompliant with medications and diet restrictions and will need extensive education and close follow-up in the outpatient setting. Lengthy discussion has been had daily with patient about diet and medication compliance. Patient will discharge in 24 hours once oxygen tanks have been delivered. Time with Patient: Greater than 30
[2021-03-17] MEDS: FUROSEMIDE 80 MG TAB PO SCH (16:10)
[2021-03-17 16:55] LABS: Glucose,Whole Blood 120 mg/dL (75-99)
--- NOTE | 2021-03-17 17:50 | PN ---
PROGRESS NOTE DATE OF SERVICE: 03/17/2021 REASON FOR FOLLOWUP: Left forearm abscess and cellulitis INTERVAL HISTORY: The patient is afebrile. The patient is feeling better. The left forearm pain and swelling has improved. Currently no wound drainage. No chest pain. Complaining of some shortness of breath. No cough. No abdominal pain, no diarrhea. PHYSICAL EXAMINATION: Blood pressure 118/60 with a pulse of 69, temperature 98, he is 91% on 4 L nasal cannula. GENERAL DESCRIPTION is a middle-aged male, lying in bed, in no distress. RESPIRATORY SYSTEM: Unlabored breathing, clear to auscultation anteriorly. HEART: S1, S2. Regular. ABDOMEN: Soft, nontender. No mass. EXTREMITIES: Left forearm swelling has decreased. LABS: BUN of 55, creatinine 4.13. DIAGNOSTIC IMPRESSION AND PLAN: Patient with left forearm abscess cellulitis. Overall improvement. Daptomycin to continue for another 4 to 5 doses and close outpatient followup. MMODL / IJN: [id number] / MTDD
[2021-03-17 19:48] LABS: Glucose,Whole Blood 183 mg/dL (75-99)
[2021-03-17] MEDS: ACETAMINOPHEN TAB 325 MG TAB PO PRN (20:58)
[2021-03-18 06:08] LABS: Glucose,Whole Blood 207 mg/dL (75-99)
[2021-03-18] MEDS: PANTOPRAZOLE 40 MG TABLET PO SCH (06:12)
[2021-03-18] MEDS: CALCIUM ACETATE 667 MG TAB PO SCH ×2 (06:12→12:35)
[2021-03-18] MEDS: INSULIN DETEMIR (LEVEMIR) 100 UNIT/ML SYR SQ SCH (06:12)
[2021-03-18] MEDS: INSULIN ASPART (NovoLOG) 100 UNIT/ML VIAL SQ SCH ×2 (06:13→11:58)
[2021-03-18] MEDS ORDERED: INSULIN DETEMIR (LEVEMIR) 100 UNIT/ML SYR SQ SCH (07:00)
[2021-03-18] MEDS: CHOLESTYRAMINE (WITH SUGAR) 4 GM PACKET PO SCH (08:33)
[2021-03-18 08:50] VITALS: TEMP 98.4
[2021-03-18] MEDS: DARBEPOETIN ALFA 40 MCG/0.4 ML SYRINGE SQ SCH (08:51)
[2021-03-18] MEDS: amLODIPine 5 MG TAB PO SCH (08:51)
[2021-03-18] MEDS: HEPARIN SODIUM,PORCINE/PF 5,000 UNIT/0.5 ML SYRINGE SQ SCH (08:51)
[2021-03-18] MEDS: ISOSORBIDE MONONITRATE ER 30 MG TAB.ER.24H PO SCH ×2 (08:51→08:52)
[2021-03-18] MEDS: FUROSEMIDE 80 MG TAB PO SCH (08:52)
[2021-03-18] MEDS: ASPIRIN 81 MG PO SCH (08:52)
[2021-03-18] MEDS: GABAPENTIN 100 MG CAP PO SCH (08:52)
[2021-03-18] MEDS: DULoxetine HCL 60 MG CAPSULE.DR PO SCH (08:53)
[2021-03-18] MEDS: METOPROLOL TARTRATE 50 MG TAB PO SCH (08:53)
[2021-03-18] MEDS: SYMBICORT 80-4.5 MCG INHALER INHALATION SCH (08:59)
[2021-03-18] MEDS: TOBRAMYCIN 0.3% OPHTH OINT 3.5 GM TUBE BOTH EYES SCH ×2 (09:02→12:35)
[2021-03-18 10:05] VITALS: BMI 32.6
[2021-03-18] MEDS ORDERED: DOCUSATE 100 MG CAP PO SCH (11:30)
--- NOTE | 2021-03-18 11:39 | P.DS ---
Providers Date of admission: 03/05/21 00:27 Attending physician: Niko Coffey Consults: 03/05/21 00:10 Consult Physician Routine Consulting Provider: Rito Christine Consult Reason/Comments: Acute on chronic renal failure Do you want consulting provider notified?: Yes 03/12/21 10:39 Consult Physician Urgent Consulting Provider: Shaun Adrian Consult Reason/Comments: needs permacath for outpatient dialysis/ recently placed temp cath Do you want consulting provider notified?: Yes 03/14/21 06:42 Consult Physician Routine Consulting Provider: Shaan Milligan Consult Reason/Comments: abscess left arm Do you want consulting provider notified?: Yes Primary care physician: Meet Fontanez [facility] Course: Final diagnosis -Acute renal failure: Prerenal azotemia probably secondary to congestive heart failure or volume overload on admission, most likely cardiorenal. -Status post permacath dialysis catheter placement and will continue on hemodialysis Monday/Monday/Monday -Possible abscess in the left arm -restless leg syndrome -Blurry vision probably secondary to hyperglycemia, improved -diarrhea, resolved -Volume overload possibly congestive heart failure chronic diastolic dysfunction with acute exacerbation the exacerbation is secondary to fludrocortisone, which has been discontinued -Chronic kidney disease stage 4: Secondary to diabetic nephropathy -Autonomic dysfunction -Type 2 diabetes mellitus uncontrolled elevated blood sugars -Multiple bilateral lower extremity ulcers in healing stages secondary to diabetic peripheral neuropathy -Congestive heart failure chronic diastolic dysfunction with acute exacerbation -Secondary pulmonary 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 Patient will follow-up with Dr. Meet Ley in the outpatient setting upon discharge. Patient will also follow-up with cardiology, nephrology, vascular surgery, infectious disease in the outpatient setting. Patient will continue with daptomycin during hemodialysis on Monday/ Monday/Monday for 7- 10 sessions and needs close outpatient follow-up with infectious disease Dr. Milligan at the wound center. Total time taken is greater than 35 minutes. Hospital course 51-year-old male with multiple chronic medical problems came in with the blurry vision which started about a week ago. Patient is found to have uncontrolled blood sugars. Patient does have history of congestive heart failure chronic diastolic dysfunction was comparing of shortness of breath unable to get clear history of orthopnea paroxysmal nocturnal dyspnea it's very hard to get history from the patient. Patient the visual problem his blurriness in both eyes. Patient denied any fever chills denied any significant cough. Patient is on 0.1 mg twice a day of hydrocortisone for autonomic dysfunction as per the previous documentation in this autonomic dysfunction was believed to be secondary to diabetes mellitus. Patient does have chronic kidney disease stage IV with baseline creatinine of around 2.8 and present creatinine is around 5. Patient has multiple chronic ulcerations of bilateral lower extremities which are presently in healing stages, none of them appear to be infected. Patient has some hypervolemic hyponatremia as well. Chest x-ray did show pulmonary edema and patient's BNP is highly elevated 03/12/2021 Patient is seen this morning and creatinine worsened at 3.96 and BUN is up at 50 , sodium is 135 and potassium is 4.8. Discussed with nephrology along with vascular surgery and will have permanent dialysis catheter placed and will be working on a dialysis schedule and a chair time and case management following. Will continue current medication regimen for blood sugars and again discussed diet compliance. Patient is extremely noncompliant with medications and glucose monitoring in the outpatient setting. Patient is high risk for readmissions as he has had multiple hospitalizations most recently. Patient denies any chest pain, shortness of breath, or palpitations. Patient is afebrile. 03/13/2021 Patient is feeling bit short of breath I'll obtain a chest x-ray to make sure patient is not going into pulmonary edema again. Patient is also on morphine which is not advisable in end-stage dialysis patient morphine and will be discontinued at this time. Patient is on hemodialysis now. 03/14/2021 Patient chest x-ray did not show any significant abnormality patient has swelling on the left forearm dorsal aspect appears to be a small abscess with cellulitis. Patient will be started on vancomycin patient had history of MRSA in the past infectious disease will be consulted patient may need drainage of that abscess. 03/15/2021 Patient is seen in follow-up continues on IV antibiotics in the form of daptomycin and vancomycin has been discontinued. Infectious disease following closely. Patient continues with left forearm almost elbow area swelling with a scab noted and continued redness although slightly improved and will not require drainage at this time. This was discussed with infectious disease. Patient is being arranged for outpatient dialysis as kidney functions continue to worsen. Patient did recently receive a permanent catheter for continued hemodialysis. disaster recovery manager working on chair time and Homecare was offered although patient continues to refuse. Kidney functions were BUN of 52 and creatinine of 4.39 and currently receiving dialysis at this time. Sodium is 135 and potassium is 5.3. Hemoglobin is stable at 7.9. Patient continues on sliding scale and will continue to monitor Accu-Cheks before meals and at bedtime. Patient remains on 2 L of oxygen via nasal cannula denies shortness of breath although states his oxygen saturation has been dipping down per nursing staff. will do home O2 eval. 03/16/2021 Patient is seen this morning with no acute overnight issues. Patient continues on IV daptomycin and plans are for patient to continue receiving IV antibiotic therapy during hemodialysis appointments for the next 7-10 days in the outpatient setting. Case management following and dialysis is not there today to accommodate arranging for IV antibiotic therapy during dialysis and will be there in the morning. Patient is going to be scheduled on Monday/Monday/Monday hemodialysis appointments outpatient. Patient continues on 2 L via nasal cannula although oxygen saturations are 96-98% and will evaluate home oxygen assessment tomorrow prior to discharge to evaluate for possible home O2 in the outpatient setting. Hemoglobin is stable at 8.2 today, sodium is 136 with a potassium 4.7, current BUN is 46 and creatinine is 3.9. Blood sugar in the 200s and will continue with sliding scale for now. 03/17/2021 Patient is seen in follow-up this morning and continues to have some occasional shortness of breath and oxygen saturations dipping down into the 80s on room air while at rest and will require home oxygen due to congestive heart failure. Arrangements have been made for patient to continue with daptomycin during dialysis treatments on Monday/Monday/Monday and needs close outpatient follow-up with infectious disease in 1-2 weeks. Patient also needs follow-up with nephrology, cardiology, and his primary care provider upon discharge. Patient will continue with insulin sliding scale along with long-acting and again discussed, educated, instructed the patient on diet modification and compliance with medications and follow-up appointments. Patient admits to noncompliance with medications and continue treatment plan. Patient continues to refuse Homecare stating he has help in the home. Patient is scheduled to receive hemodialysis today and will continue in the outpatient setting with his next session on Monday. Patient states he does have transportation to hemodialysis in [place]. Chest x-ray was done today showing Currently no reports of chest pain, shortness of breath, or palpitations. Patient is afebrile. No reports of nausea or vomiting and patient is tolerating diet. Guarded prognosis secondary to multiple readmissions for treatment and medication noncompliance 03/18/2021 No overnight events patient is feeling better patient will be discharged today PHYSICAL EXAMINATION: GENERAL: The patient is alert and oriented x3, not in any acute distress. Well developed, well nourished. HEENT: Pupils are round and equally reacting to light. EOMI. No scleral icterus. No conjunctival pallor. Normocephalic, atraumatic. No pharyngeal erythema. No thyromegaly. CARDIOVASCULAR: S1 and S2 present. No murmurs, rubs, or gallops. PULMONARY: Chest is clear to auscultation, no wheezing or crackles. ABDOMEN: Soft, nontender, nondistended, normoactive bowel sounds. No palpable organomegaly. MUSCULOSKELETAL: No joint swelling or deformity. EXTREMITIES: No cyanosis, clubbing, or pedal edema. NEUROLOGICAL: Gross neurological examination did not reveal any focal deficits. SKIN: She has multiple skin breakdowns everywhere in the body. His cellulitis in the left upper extremity is getting better Patient Condition at Discharge: Fair Plan - Discharge Summary Discharge Rx Participant: No New Discharge Prescriptions: New Darbepoetin Andrez [Aranesp] 40 mcg SQ Q7D syringe Furosemide [Lasix] 80 mg PO BID@0900,1600 #60 tab Insulin Detemir (Levemir) [Levemir] 10 unit SQ DAILY@0700 30 Days #4 syr Gabapentin [Neurontin] 100 mg PO TID #12 cap Calcium Acetate [PhosLo] 667 mg PO TID-W/MEALS #90 tab rOPINIRole HCL [Requip] 0.5 mg PO DAILY #60 tab amLODIPine [Norvasc] 5 mg PO DAILY #30 tab Continue Omeprazole [PriLOSEC] 40 mg PO AC-LORIKFSKacey #14 capsule. DULoxetine HCL [Cymbalta] 60 mg PO DAILY Acetaminophen Tab [Tylenol] 650 mg PO Q4H PRN PRN Reason: Mild Pain Or Fever > 100.5 Albuterol Sulfate [Proair Hfa] 2 puff INHALATION RT-Q6H PRN PRN Reason: Shortness Of Breath Semaglutide [Ozempic] 1 mg SQ MO Atorvastatin [Lipitor] 40 mg PO DAILY #30 tab Fluticasone/Salmeterol [Advair 250-50 Diskus] 1 puff INHALATION RT-BID Nitroglycerin Sl Tabs [Nitrostat] 0.4 mg SL Q5M PRN PRN Reason: Chest Pain Isosorbide Mononitrate ER [Imdur] 30 mg PO DAILY #30 tab.er.24h Ondansetron [Zofran] 4 mg PO TID PRN PRN Reason: Nausea INSULIN ASPART (NovoLOG) [NovoLOG (formulary)] See Protocol SQ ACHS Metoprolol Tartrate [Lopressor] 50 mg PO BID 30 Days #60 tab Aspirin 81 mg PO DAILY #30 chewable traZODone HCL [Desyrel] 100 mg PO HS PRN PRN Reason: Insomnia Discontinued Gabapentin 800 mg PO TID amLODIPine [Norvasc] 10 mg PO DAILY #30 tab Fludrocortisone [Florinef] 0.1 mg PO BID #60 tab Furosemide [Lasix] 40 mg PO BID PRN PRN Reason: Edema Discharge Medication List Omeprazole [PriLOSEC] 40 mg PO [facility] #14 capsule. 11/04/19 [Rx] DULoxetine HCL [Cymbalta] 60 mg PO DAILY 04/01/20 [History] Acetaminophen Tab [Tylenol] 650 mg PO Q4H PRN 07/25/20 [History] Albuterol Sulfate [Proair Hfa] 2 puff INHALATION RT-Q6H PRN 07/25/20 [History] Semaglutide [Ozempic] 1 mg SQ MO 10/03/20 [History] Atorvastatin [Lipitor] 40 mg PO DAILY #30 tab 10/13/20 [Rx] Fluticasone/Salmeterol [Advair 250-50 Diskus] 1 puff INHALATION RT-BID 12/16/20 [History] Nitroglycerin Sl Tabs [Nitrostat] 0.4 mg SL Q5M PRN 12/16/20 [History] Ondansetron [Zofran] 4 mg PO TID PRN 12/16/20 [History] INSULIN ASPART (NovoLOG) [NovoLOG (formulary)] See Protocol SQ ACHS 01/04/21 [History] Metoprolol Tartrate [Lopressor] 50 mg PO BID 30 Days #60 tab 01/14/21 [Rx] Aspirin 81 mg PO DAILY #30 chewable 01/18/21 [Rx] Isosorbide Mononitrate ER [Imdur] 30 mg PO DAILY #30 tab.er.24h 02/11/21 [Rx] traZODone HCL [Desyrel] 100 mg PO HS PRN 03/05/21 [History] Calcium Acetate [PhosLo] 667 mg PO TID-W/MEALS #90 tab 03/17/21 [Rx] Darbepoetin Andrez [Aranesp] 40 mcg SQ Q7D syringe 03/17/21 [Rx] Furosemide [Lasix] 80 mg PO BID@0900,1600 #60 tab 03/17/21 [Rx] Gabapentin [Neurontin] 100 mg PO TID #12 cap 03/17/21 [Rx] Insulin Detemir (Levemir) [Levemir] 10 unit SQ DAILY@0700 30 Days #4 syr 03/17/21 [Rx] amLODIPine [Norvasc] 5 mg PO DAILY #30 tab 03/17/21 [Rx] rOPINIRole HCL [Requip] 0.5 mg PO DAILY #60 tab 03/17/21 [Rx] Follow up Appointment(s)/Referral(s): Payton Rodgers MD [STAFF PHYSICIAN] - 1 Week Meet Fontanez DO [Primary Care Provider] - 1-2 days Shaun Adrian DO [STAFF PHYSICIAN] - 2 Weeks Shaan Milligan MD [STAFF PHYSICIAN] - 1 Week Patient Instructions/Handouts: Heart Failure (GEN), Chronic Kidney Disease Diet (GEN), Dialysis Diet (GEN), Low-Sodium Diet (DC), Low-Sodium Diet (GEN), Hemodialysis (DC), Type 2 Diabetes Management for Adults (GEN) Activity/Diet/Wound Care/Special Instructions: Hemodialysis at [facility] - Monday, Monday, Monday @2:15 p.m. - first date of dialysis tentatively Mon03/17/21 @2:00 p.m. Patient requires home oxygen at discharge secondary to hypoxia from CHF Activity Limited until follow-up Follow-up with primary care provider upon discharge Follow-up cardiology outpatient Follow-up nephrology outpatient Continue with hemodialysis as scheduled Continue with daptomycin during dialysis Follow-up with infectious disease [facility] Doctor Srini in one week Continue to monitor blood sugars before meals and at bedtime NovoLog sliding scale 0-150 equals 0 units 151-200 equals 2 units 201-250 equals 4 units 251-300 equals 6 units 301-350 equals 8 units 351-400 equals 10 units Please notify provider if blood sugar is 400 or above Continue with long-acting insulin 10 units daily Continue with incentive spirometer at least 10 times every 1 hour while awake Continue heart healthy diabetic renal diet Continue with low potassium, low phosphorus, low salt diet Must be compliant with medications prescribed along with dialysis treatments Discharge Disposition: HOME SELF-CARE
[2021-03-18 11:42] LABS: Glucose,Whole Blood 122 mg/dL (75-99)
--- NOTE | 2021-03-18 12:01 | PN ---
PROGRESS NOTE Patient is seen for followup for acute kidney injury on top of chronic kidney disease. The patient was dialyzed yesterday. He had about 2.5 L of ultrafiltration. He states he is feeling better. Weight, however, seems to have not changed. PHYSICAL EXAMINATION: On examination today, blood pressure is 176/79, heart rate 72 per minute, he is afebrile. Examination of the heart S1, S2. Examination of the lungs, bilateral breath sounds. Breath sounds are heard. Abdomen is soft, nontender. Examination of lower extremities shows no evidence of edema. Old scabs noted and pigmentation from recent abscesses and cellulitis. MACHINE SHOP SUPERVISOR exam grossly intact. LAB: Not available from today. On March 17, sodium 135, potassium 5.5, BUN 55, creatinine 4.1. ASSESSMENT: 1. Acute kidney injury, currently hemodialysis dependent, maintained on a Monday, Monday, Monday schedule. Patient has an outpatient chair time. He will be going to the [place] unit. 2. Mild hyperkalemia. Expect improvement post dialysis today. 3. Volume overload, currently improved. 4. Cellulitis, left arm, maintained on antibiotics. 5. Constipation. Patient is complaining of having had a very hard time with bowel movement yesterday after dialysis. PLAN: Add Colace. Hold off on Questran. He did have diarrhea previously, however, this has now resolved. We will follow him as outpatient on dialysis. Continue with oral Lasix for now. MMODL / IJN: [id number] /
[2021-03-18 12:28] VITALS: BP 156/77; PULSE 63; RESP 18
--- NOTE | 2021-03-18 14:42 | P.PN ---
Progress Note - Text Progress Note Date: 03/18/21 REASON FOR FOLLOWUP: Left forearm abscess and cellulitis INTERVAL HISTORY: The patient remains to be afebrile. The patient is feeling better. The left forearm pain and swelling has decreased in intensity. Currently no wound drainage. No chest pain. Complaining of some shortness of breath. No cough. No abdominal pain, no diarrhea. PHYSICAL EXAMINATION: Blood pressure 110/50 with a pulse of 60, temperature 98, he is 91% on 4 L nasal cannula. GENERAL DESCRIPTION is a middle-aged male, lying in bed, in no distress. RESPIRATORY SYSTEM: Unlabored breathing, clear to auscultation anteriorly. HEART: S1, S2. Regular. ABDOMEN: Soft, nontender. No mass. EXTREMITIES: Left forearm swelling has decreased. LABS: reviewed DIAGNOSTIC IMPRESSION AND PLAN: Patient with left forearm abscess cellulitis. Overall improvement. Daptomycin to continue at end of dialysis for another 4 doses to finish his treatment and close outpatient followup.
== END 2021-03-18 14:18 | disposition home or self-care (01) | DRG 291 ==
LOC: EC 20:33 → 3SCARD 03-05 00:27
PROVIDERS: ADMIT Hospitalist; ATTEND Hospitalist
PROC: 06HM33Z Insertion of Infusion Device into Right Femoral Vein, Percutaneous Approach (ICD-10-PCS; principal; 2021-03-08)
PROC: 0JH63XZ Insertion of Tunneled Vascular Access Device into Chest Subcutaneous Tissue and Fascia, Percutaneous Approach (ICD-10-PCS; 2021-03-12 12:50)
PROC: 02HV33Z Insertion of Infusion Device into Superior Vena Cava, Percutaneous Approach (ICD-10-PCS; 2021-03-12 12:50)
PROC: 5A1D70Z Performance of Urinary Filtration, Intermittent, Less than 6 Hours Per Day (ICD-10-PCS; 2021-03-12 12:50)
DX: I13.2 Hypertensive heart and chronic kidney disease with heart failure and with stage 5 chronic kidney disease, or end stage renal disease (principal); I50.33 Acute on chronic diastolic (congestive) heart failure; N17.0 Acute kidney failure with tubular necrosis; N18.6 End stage renal disease; E87.1 Hypo-osmolality and hyponatremia; L02.414 Cutaneous abscess of left upper limb; L03.114 Cellulitis of left upper limb; L97.919 Non-pressure chronic ulcer of unspecified part of right lower leg with unspecified severity; L97.929 Non-pressure chronic ulcer of unspecified part of left lower leg with unspecified severity; J98.11 Atelectasis; D50.9 Iron deficiency anemia, unspecified; D63.1 Anemia in chronic kidney disease; E11.22 Type 2 diabetes mellitus with diabetic chronic kidney disease; E83.9 Disorder of mineral metabolism, unspecified; E11.42 Type 2 diabetes mellitus with diabetic polyneuropathy; E11.622 Type 2 diabetes mellitus with other skin ulcer; E11.65 Type 2 diabetes mellitus with hyperglycemia; I27.29 Other secondary pulmonary hypertension; J44.9 Chronic obstructive pulmonary disease, unspecified; E78.5 Hyperlipidemia, unspecified; E83.39 Other disorders of phosphorus metabolism; Z20.822 Contact with and (suspected) exposure to COVID-19; Z99.2 Dependence on renal dialysis; F41.9 Anxiety disorder, unspecified; G25.81 Restless legs syndrome; H53.8 Other visual disturbances; G90.1 Familial dysautonomia [Riley-Day]; E87.5 Hyperkalemia; R09.02 Hypoxemia; T50.0X5A Adverse effect of mineralocorticoids and their antagonists, initial encounter; T50.2X5A Adverse effect of carbonic-anhydrase inhibitors, benzothiadiazides and other diuretics, initial encounter; M10.9 Gout, unspecified; R19.7 Diarrhea, unspecified; Z79.4 Long term (current) use of insulin; Z79.82 Long term (current) use of aspirin; Z79.899 Other long term (current) drug therapy; Z83.3 Family history of diabetes mellitus; Z86.14 Personal history of Methicillin resistant Staphylococcus aureus infection; Z87.891 Personal history of nicotine dependence; Z91.11 Patient's noncompliance with dietary regimen; Z91.14 Patient's other noncompliance with medication regimen; Z90.49 Acquired absence of other specified parts of digestive tract; Z91.19 Patient's noncompliance with other medical treatment and regimen; Z98.42 Cataract extraction status, left eye; Z98.41 Cataract extraction status, right eye
CPT/HCPCS: 36415; 36571; 71045; 71046; 76770; 76937; 77001; 80048; 80053; 81001; 82009; 82728; 83036; 83540; 83550; 83690; 83735; 83880; 84100; 84132; 84484; 85025; 85027; 86704; 86706; 87324; 87340; 87635; 90935; 93005; 94660; 94760; 96361; 96372; 96374; 96375; 99291

== ENCOUNTER 2021-09-02 13:08 | Inpatient (IN) | payer OTHER ==
[2021-09-02] MEDS ORDERED: ACETAMINOPHEN TAB 500 MG TAB PO STA (15:19)
--- NOTE | 2021-09-02 15:30 | XR ---
EXAMINATION TYPE: XR chest 2V DATE OF EXAM: 09/02/2021 COMPARISON: 03/17/2021 TECHNIQUE: PA and lateral views submitted. HISTORY: Chest pain FINDINGS: There is bilateral areas of infiltrate and small effusion on the right. Elevated hemidiaphragms are s een due to reduced inspiration. No pneumothorax. Heart size normal. IMPRESSION: 1. Correlate for pulmonary edema versus diffuse bilateral pneumonia.
[2021-09-02 15:34] LABS: Basophils % (A) 0 %; Eosinophils # (A) 0.1 k/uL (0-0.7); Eosinophils % (A) 0 %; HCT 33.6 % (39.0-53.0); HGB 10.7 gm/dL (13.0-17.5); Hypochromasia Slight; Lymphocytes # (A) 0.4 k/uL (1.0-4.8); Lymphocytes % (A) 2 %; MCH 28.9 pg (25.0-35.0); MCV 90.3 fL (80.0-100.0); Mean Platelet Volume 8.1; Monocytes # (A) 0.8 k/uL (0-1.0); Monocytes % (A) 4 %; Neutrophils # (A) 18.1 k/uL (1.3-7.7); Neutrophils % (A) 92 %; Platelet Count 313 k/uL (150-450); RBC 3.72 m/uL (4.30-5.90); RDW 15.8 % (11.5-15.5); WBC 19.6 k/uL (3.8-10.6)
[2021-09-02 15:38] LABS: Albumin 2.9 g/dL (3.5-5.0); Calcium 8.6 mg/dL (8.4-10.2); Magnesium 2.1 mg/dL (1.6-2.3); Potassium 5.9 mmol/L (3.5-5.1); Total Bilirubin 0.7 mg/dL (0.2-1.3); Total Protein 7.7 g/dL (6.3-8.2)
[2021-09-02 15:39] LABS: INR 1.4 (<1.2); Partial Thromboplastin Time 26.3 sec (22.0-30.0); Prothrombin Time 13.9 sec (9.0-12.0)
[2021-09-02] MEDS ORDERED: MORPHINE SULFATE 4 MG/ML SYRINGE IVP STA (16:20)
[2021-09-02] MEDS ORDERED: PANTOPRAZOLE 40 MG/10 ML VIAL IVP STA (16:20)
[2021-09-02] MEDS ORDERED: ONDANSETRON 4 MG/2 ML VIAL IVP STA (16:20)
[2021-09-02] MEDS ORDERED: AZITHROMYCIN 500 MG in SODIUM CHLORIDE 0.9% 250 ML IVPB STA (16:20)
[2021-09-02] MEDS ORDERED: cefTRIAXone IN SWFI 1,000 MG/10 ML SYRINGE IVP STA (16:20)
[2021-09-02] MEDS ORDERED: FUROSEMIDE 10 MG/ML 10 ML VIAL IV STA (16:35)
--- NOTE | 2021-09-02 16:37 | ED ---
General Adult HPI - General Chief complaint: Chest Pain Stated complaint: Chest tightness/Nausea/Vomiting/Diarrhea Time Seen by Provider: 09/02/21 14:33 Source: patient, RN notes reviewed, old records reviewed Mode of arrival: ambulatory Limitations: no limitations - History of Present Illness Initial comments: 51-year-old male resents a for evaluation of dyspnea, vomiting. Patient also complains of some mild chest discomfort which she states is quite chronic. He has history of diabetes. Patient also reports lower extremity swelling. He has had fever and chills as well. - Related Data Home Medications Medication Instructions Recorded Confirmed DULoxetine HCL [Cymbalta] 60 mg PO DAILY 04/01/20 03/05/21 Acetaminophen Tab [Tylenol] 650 mg PO Q4H PRN 07/25/20 03/05/21 Albuterol Sulfate [Proair Hfa] 2 puff INHALATION RT-Q6H PRN 07/25/20 03/05/21 Semaglutide [Ozempic] 1 mg SQ MO 10/03/20 03/05/21 Fluticasone/Salmeterol [Advair 1 puff INHALATION RT-BID 12/16/20 03/05/21 250-50 Diskus] Nitroglycerin Sl Tabs [Nitrostat] 0.4 mg SL Q5M PRN 12/16/20 03/05/21 Ondansetron [Zofran] 4 mg PO TID PRN 12/16/20 03/05/21 INSULIN ASPART (NovoLOG) [NovoLOG See Protocol SQ ACHS 01/04/21 03/05/21 (formulary)] traZODone HCL [Desyrel] 100 mg PO HS PRN 03/05/21 03/05/21 Previous Rx's Medication Instructions Recorded Omeprazole [PriLOSEC] 40 mg PO AC-BRKFST #14 amparo. 11/04/19 Atorvastatin [Lipitor] 40 mg PO DAILY #30 tab 10/13/20 Metoprolol Tartrate [Lopressor] 50 mg PO BID 30 Days #60 tab 01/14/21 Aspirin 81 mg PO DAILY #30 chewable 01/18/21 Isosorbide Mononitrate ER [Imdur] 30 mg PO DAILY #30 tab.er.24h 02/11/21 Calcium Acetate [PhosLo] 667 mg PO TID-W/MEALS #90 tab 03/17/21 Darbepoetin Andrez [Aranesp] 40 mcg SQ Q7D syringe 03/17/21 Furosemide [Lasix] 80 mg PO BID@0900,1600 #60 tab 03/17/21 Gabapentin [Neurontin] 100 mg PO TID #12 cap 03/17/21 Insulin Detemir (Levemir) [Levemir] 10 unit SQ DAILY@0700 30 Days #4 03/17/21 syr amLODIPine [Norvasc] 5 mg PO DAILY #30 tab 03/17/21 rOPINIRole HCL [Requip] 0.5 mg PO DAILY #60 tab 03/17/21 Allergies Allergy/AdvReac Type Severity Reaction Status Date / Time No Known Allergies Allergy Verified 09/02/21 16:16 Review of Systems ROS Statement: Those systems with pertinent positive or pertinent negative responses have been documented in the HPI. ROS Other: All systems not noted in ROS Statement are negative. Past Medical History Past Medical History: Heart Failure, Diabetes Mellitus, Hyperlipidemia, Hypertension Additional Past Medical History / Comment(s): COVID (vented) IDDM type II, neuropathy bilateral feet, gout, bilateral eye catarct removal, MRSA . History of Any Multi-Drug Resistant Organisms: MRSA Date of last positivie culture/infection: 12/17/20 MDRO Source:: Right Leg Past Surgical History: Cholecystectomy Additional Past Surgical History / Comment(s): I&D scrotal abscess, I&D back abscess Past Anesthesia/Blood Transfusion Reactions: No Reported Reaction Past Psychological History: Anxiety Smoking Status: Former smoker Past Alcohol Use History: None Reported Past Drug Use History: None Reported - Past Family History Mother Family Medical History: Diabetes Mellitus Father History Unknown: Yes General Exam Limitations: no limitations General appearance: alert, in no apparent distress Head exam: Present: atraumatic, normocephalic Eye exam: Present: normal appearance, PERRL ENT exam: Present: mucous membranes dry Neck exam: Present: normal inspection. Absent: tenderness, meningismus Respiratory exam: Present: rales, decreased breath sounds. Absent: respiratory distress Cardiovascular Exam: Present: normal rhythm, tachycardia GI/Abdominal exam: Present: soft. Absent: distended, tenderness, guarding Extremities exam: Present: pedal edema Neurological exam: Present: alert, oriented X3, CN II-XII intact. Absent: motor sensory deficit Psychiatric exam: Present: normal affect, normal mood Skin exam: Present: warm, dry, intact. Absent: cyanosis, diaphoretic Course Vital Signs 09/02/21 09/02/21 09/02/21 14:17 16:57 17:01 Temperature 99.9 F H Pulse Rate 109 H 100 100 Respiratory 22 20 Rate Blood Pressure 164/89 150/76 O2 Sat by Pulse 94 L 95 Oximetry 09/02/21 17:08 Temperature Pulse Rate 98 Respiratory Rate Blood Pressure O2 Sat by Pulse Oximetry EKG Findings - EKG Comments: EKG Findings:: EKG: Sinus tachycardia, pulmonary disease pattern, no ST segment elevation, rate of 109, W[place] interval 160, QRS duration 88, QTC 444 Medical Decision Making - Medical Decision Making 51-year-old male presenting with fever, chest tightness, dyspnea. Workup is initiated, patient has a white blood cell count of 19. He has chest x-ray showing CHF versus pneumonia. He started on both IV antibiotics and Lasix in the emergency department. Overall he does appear fluid overloaded and has a significantly elevated BNP at 20,000. His troponin is negative. I did discuss case with Dr. Pablo who will admit. He does recommend pro-calcitonin, these results are pending. - Lab Data Result diagrams: 09/02/21 15:15 09/02/21 15:11 Lab Results 09/02/21 09/02/21 09/02/21 Range/Units 15:11 15:11 15:11 WBC (3.8-10.6) k/uL RBC (4.30-5.90) m/uL Hgb (13.0-17.5) gm/dL Hct (39.0-53.0) % MCV (80.0-100.0) fL MCH (25.0-35.0) pg MCHC (31.0-37.0) g/dL RDW (11.5-15.5) % Plt Count (150-450) k/uL MPV Neutrophils % % Lymphocytes % % Monocytes % % Eosinophils % % Basophils % % Neutrophils # (1.3-7.7) k/uL Lymphocytes # (1.0-4.8) k/uL Monocytes # (0-1.0) k/uL Eosinophils # (0-0.7) k/uL Basophils # (0-0.2) k/uL Hypochromasia PT 13.9 H (9.0-12.0) sec INR 1.4 H (<1.2) APTT 26.3 (22.0-30.0) sec Sodium 139 (137-145) mmol/L Potassium 5.9 H (3.5-5.1) mmol/L Chloride 104 (98-107) mmol/L Carbon Dioxide 28 (22-30) mmol/L Anion Gap 7 mmol/L BUN 83 H (9-20) mg/dL Creatinine 3.14 H (0.66-1.25) mg/dL Est GFR (CKD-EPI)AfAm 25 (>60 ml/min/1.73 sqM) Est GFR (CKD-EPI)NonAf 22 (>60 ml/min/1.73 sqM) Glucose 228 H (74-99) mg/dL Calcium 8.6 (8.4-10.2) mg/dL Magnesium 2.1 (1.6-2.3) mg/dL Total Bilirubin 0.7 (0.2-1.3) mg/dL AST 47 (17-59) U/L ALT 28 (4-49) U/L Alkaline Phosphatase 328 H (38-126) U/L Troponin I <0.012 (0.000-0.034) ng/mL NT-Pro-B Natriuret Pep pg/mL Total Protein 7.7 (6.3-8.2) g/dL Albumin 2.9 L (3.5-5.0) g/dL Coronavirus (PCR) (Not Detectd) 09/02/21 09/02/21 09/02/21 Range/Units 15:11 15:15 15:57 WBC 19.6 H (3.8-10.6) k/uL RBC 3.72 L (4.30-5.90) m/uL Hgb 10.7 L (13.0-17.5) gm/dL Hct 33.6 L (39.0-53.0) % MCV 90.3 (80.0-100.0) fL MCH 28.9 (25.0-35.0) pg MCHC 32.0 (31.0-37.0) g/dL RDW 15.8 H (11.5-15.5) % Plt Count 313 (150-450) k/uL MPV 8.1 Neutrophils % 92 % Lymphocytes % 2 % Monocytes % 4 % Eosinophils % 0 % Basophils % 0 % Neutrophils # 18.1 H (1.3-7.7) k/uL Lymphocytes # 0.4 L (1.0-4.8) k/uL Monocytes # 0.8 (0-1.0) k/uL Eosinophils # 0.1 (0-0.7) k/uL Basophils # 0.0 (0-0.2) k/uL Hypochromasia Slight PT (9.0-12.0) sec INR (<1.2) APTT (22.0-30.0) sec Sodium (137-145) mmol/L Potassium (3.5-5.1) mmol/L Chloride (98-107) mmol/L Carbon Dioxide (22-30) mmol/L Anion Gap mmol/L BUN (9-20) mg/dL Creatinine (0.66-1.25) mg/dL Est GFR (CKD-EPI)AfAm (>60 ml/min/1.73 sqM) Est GFR (CKD-EPI)NonAf (>60 ml/min/1.73 sqM) Glucose (74-99) mg/dL Calcium (8.4-10.2) mg/dL Magnesium (1.6-2.3) mg/dL Total Bilirubin (0.2-1.3) mg/dL AST (17-59) U/L ALT (4-49) U/L Alkaline Phosphatase (38-126) U/L Troponin I (0.000-0.034) ng/mL NT-Pro-B Natriuret Pep 58650 pg/mL Total Protein (6.3-8.2) g/dL Albumin (3.5-5.0) g/dL Coronavirus (PCR) Not Detected (Not Detectd) Disposition Clinical Impression: CHF (congestive heart failure), Pneumonia Disposition: ADMITTED IP TO THIS [facility] Condition: Serious Is patient prescribed a controlled substance at d/c from ED?: No Referrals: Meet Fontanez DO [Primary Care Provider] - 1-2 days Decision to Admit Reason: Admit from EC Decision Date: 09/02/21 Decision Time: 18:05
[2021-09-02] MEDS ORDERED: IPRATROPIUM-ALBUTEROL 3 ML NEB INHALATION STA (16:48)
[2021-09-02] MEDS ORDERED: NALOXONE 0.4 MG/ML 1 ML VIAL IV PRN (18:02)
[2021-09-03 10:33] LABS: Glucose,Whole Blood 214 mg/dL (75-99)
--- NOTE | 2021-09-03 10:38 | P.NPCON ---
History of Present Illness - Reason for Consult Consult date: 09/03/21 hyperkalemia - Chief Complaint Shortness of breath - History of Present Illness This is a 51-year-old patient known to us with chronic kidney disease stage IV, came in with shortness of breath nausea vomiting diarrhea. Admission labs showed creatinine 3.14 bee and 83, sodium 139 potassium 5.9 chloride 104 bicarb 28. A chest x-ray shows congestive heart failure He denies changing any medication. At home he was on 80 twice a day of Lasix. He is known with diabetes since young age, has multiple skin superficial ulcers on his right leg and significant edema. Has history of being on temporally dialysis in February of this year Past Medical History Past Medical History: Heart Failure, Diabetes Mellitus, Hyperlipidemia, Hypertension Additional Past Medical History / Comment(s): COVID (vented) IDDM type II, neuropathy bilateral feet, gout, bilateral eye catarct removal, MRSA . History of Any Multi-Drug Resistant Organisms: MRSA Date of last positivie culture/infection: 12/17/20 MDRO Source:: Right Leg Past Surgical History: Cholecystectomy Additional Past Surgical History / Comment(s): I&D scrotal abscess, I&D back abscess Past Anesthesia/Blood Transfusion Reactions: No Reported Reaction Past Psychological History: Anxiety Smoking Status: Former smoker Past Alcohol Use History: None Reported Past Drug Use History: None Reported - Past Family History Mother Family Medical History: Diabetes Mellitus Father History Unknown: Yes Medications and Allergies Home Medications Medication Instructions Recorded Confirmed Type DULoxetine HCL [Cymbalta] 60 mg PO DAILY 04/01/20 09/02/21 History Acetaminophen Tab [Tylenol] 650 mg PO Q4H PRN 07/25/20 09/02/21 History Atorvastatin [Lipitor] 40 mg PO DAILY #30 tab 10/13/20 09/02/21 Rx Metoprolol Tartrate [Lopressor] 50 mg PO BID 30 Days #60 tab 01/14/21 09/02/21 Rx Aspirin 81 mg PO DAILY #30 chewable 01/18/21 09/02/21 Rx Isosorbide Mononitrate ER [Imdur] 30 mg PO DAILY #30 tab.er.24h 02/11/21 09/02/21 Rx Furosemide [Lasix] 80 mg PO BID@0900,1600 #60 tab 03/17/21 09/02/21 Rx Gabapentin [Neurontin] 100 mg PO TID #12 cap 03/17/21 09/02/21 Rx Insulin Aspart Protam & Aspart See Protocol SQ ACHS 09/02/21 09/02/21 History [NovoLOG MIX 70-30 Flexpen] Omeprazole [PriLOSEC] 40 mg PO DAILY 09/02/21 09/02/21 History Ozempic 4mg/3ml 4 mg SQ TU 09/02/21 09/02/21 History amLODIPine [Norvasc] 5 mg PO BID 09/02/21 09/02/21 History rOPINIRole HCL [Requip] 0.25 mg PO HS 09/02/21 09/02/21 History Allergies Allergy/AdvReac Type Severity Reaction Status Date / Time No Known Allergies Allergy Verified 09/02/21 18:32 Physical Exam Vitals: Vital Signs Temp Pulse Pulse Resp BP Pulse Ox 09/03/21 06:33 93 18 89 L 09/03/21 06:00 88 18 147/75 90 L 09/03/21 04:14 89 18 145/73 92 L 09/03/21 02:59 98.9 F 92 18 149/76 90 L 09/03/21 01:00 97 18 140/92 97 09/03/21 00:00 93 16 127/65 94 L 09/02/21 23:00 90 11 L 127/65 92 L 09/02/21 22:00 91 12 127/65 92 L 09/02/21 21:00 90 18 127/65 95 09/02/21 20:00 92 16 121/65 95 09/02/21 19:26 96 18 121/65 91 L 09/02/21 19:22 97.8 F 92 16 126/65 96 09/02/21 17:08 98 09/02/21 17:01 100 20 150/76 95 09/02/21 16:57 100 09/02/21 15:00 105 H 22 09/02/21 14:17 99.9 F H 109 H 22 164/89 94 L Intake and Output 09/02/21 09/03/21 09/03/21 22:59 06:59 14:59 Intake Total 480 Output Total 800 Balance -320 Intake: Oral 480 Output: Urine 800 On examination is awake alert oriented comfortable HEENT exam no JVP neck is supple no facial asymmetry Lungs are significant for bilateral coarse crackles at bases with fairly good air entry bilaterally Heart sounds unremarkable for any murmur rub gallop Abdomen soft slightly distended Extremity exam was 2+ edema with multiple superficial skin lesions with superficial ulcers on the right leg mostly. 2+ edema Neurologically awake alert oriented. Very poor memory Results - Lab Results Most recent lab results Calcium 8.6 mg/dL (8.4-10.2) 09/02/21 15:11 Magnesium 2.1 mg/dL (1.6-2.3) 09/02/21 15:11 09/02/21 15:15 09/02/21 15:11 Assessment and Plan Assessment: Impression 1. Hyperkalemia secondary to acute kidney injury, and partially from the high blood sugars concurrently to 28 2. Chronic kidney disease diabetic nephropathy stage IV, history of temporary dialysis in March 2021. Baseline creatinine is in the 3-4 range 3. Congestive heart failure 4. Diabetic nephropathy, multiple diabetic complications, 5. Anemia hemoglobin is 10.7 at target Recommendation 1. IV Lasix 80 every 12. 2. Monitor lites and potassium 3.
[2021-09-03 11:38] LABS: Glucose,Whole Blood 222 mg/dL (75-99)
[2021-09-03] MEDS: ASPIRIN 81 MG PO SCH (12:57)
[2021-09-03] MEDS: amLODIPine 5 MG TAB PO SCH ×2 (12:57→19:52)
[2021-09-03] MEDS: ATORVASTATIN 40 MG TAB PO SCH (12:57)
[2021-09-03] MEDS: DULoxetine HCL 60 MG CAPSULE.DR PO SCH (12:58)
[2021-09-03] MEDS: GABAPENTIN 100 MG CAP PO SCH ×3 (12:58→19:52)
[2021-09-03] MEDS: PANTOPRAZOLE 40 MG TABLET PO SCH (12:58)
[2021-09-03] MEDS: METOPROLOL TARTRATE 50 MG TAB PO SCH ×2 (12:58→19:55)
[2021-09-03] MEDS: ISOSORBIDE MONONITRATE ER 30 MG TAB.ER.24H PO SCH (12:58)
[2021-09-03] MEDS: ACETAMINOPHEN TAB 325 MG TAB PO PRN ×2 (15:06→19:52)
--- NOTE | 2021-09-03 15:51 | P.HPIM ---
History of Present Illness H&P Date: 09/03/21 Chief Complaint: Short of breath History of presenting complaint This is a very pleasant 51-year-old patient, chronic stable medical conditions include diabetes mellitus type 2, peripheral neuropathy, hyperlipidemia patient has chronic lower extremity leg wounds. Autonomic dysfunction from diabetes. Causing orthostatics. Patient now presents with episodes of falling down. He states that these happens intermittently. The current episode patient was satting in the kitchen reaching [facility] to get a copy and his legs and he felt weak and then he went down to the ground. no chest pain or palpitation. He does often get dizzy on standing up. No seizure activity. No focal weakness. Appetite is good. No fever no chills. Patient now presents for short of breath for 2 days. Some cough with green sputum. Also developed some vomiting. Also had some diarrhea. Decreased appetite. There had been some chills. Increasing lower extremity edema. Last bowel movement was yesterday. Last vomiting was yesterday the ER. Patient is accompanied by his girlfriend. Seen earlier by nephrology given IV Lasix. Review of systems: GEN.: Tired, chills, decreased appetite EYES: None HEENT: None NECK: None RESPIRATORY: As above CARDIOVASCULAR: None GASTROINTESTINAL: None GENITOURINARY: None MUSCULOSKELETAL: Joint pains LYMPHATICS: None HEMATOLOGICAL: None DERMATOLOGICAL: Lower extremity Leg wounds- PSYCHIATRY: None NEUROLOGICAL: Numbness tingling hands and feet Past medical history to include: Diabetes, hyperlipidemia, peripheral neuropathy, MRSA infection including abscess and cellulitis,, anxiety, diabetic autonomic dysfunction Social history: Patient lives with his 2 children. Previously did [employer]. Smoking 2 packs a day for 32 years. , Stopped less than a year ago. Alcohol occasionally. Physical examination: VITAL SIGNS: 99.9, 109, 22, 164/89, 94% on 4 L GENERAL: BMI 34.5, laying in bed, awake, tired EYES: Pupils equal. Conjunctiva normal. HEENT: External appearance of nose and ears normal, oral cavity grossly normal. NECK: JVD not raised; masses not palpable. HEART: First and second heart sounds are normal; gross edema LUNGS: Respiratory rate increased, decreased breath sounds. ABDOMEN: Soft, distended nontender, liver spleen not palpable, no masses palpable. PSYCH: Alert and oriented x3; mood and affect anxious DERMATOLOGICAL: Healed Wounds of the lower extremity. See nursing notes. NEUROLOGICAL: Cranial nerves grossly intact; no facial asymmetry, decreased sensation peripheral LYMPHATICS: No lymph nodes palpable in the axilla and neck INVESTIGATIONS, reviewed in the clinical context: White count 19.6 hemoglobin 10.7 platelets 313 potassium 5.9 BUN 83 creatinine 3.14 Chest x-ray film personally reviewed by me-pulmonary edema EKG tracing personally reviewed by me-normal sinus rhythm. Nonspecific T-wave c hanges. Pro-calcitonin 1.7 to Coronavirus [PCR]: Not detected Previous labs: March 2021: BUN 55 creatinine 4.136 Assessment and plan: --Acute on Chronic congestive heart failure from diastolic dysfunction EF 50-55% Start Lasix drip at 10 mg an hour. Strict I's and O's. -Acute gastroenteritis, likely viral. Usually self-limiting. Liquid diet. Advance as tolerated -Chronic autonomic dysfunction from diabetes- Fall precautions -Chronic stable angina with a prior history of positive nuclear stress test. Imdur ER 30 mg a day -Chronic lower extremity wounds. 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 -Diabetic peripheral neuropathy Neurontin 100 mg 3 times a day -Hyperlipidemia Lipitor 40 mg a day -COPD in a previous smoker DuoNeb when necessary -Chronic kidney disease stage 4 likely combination of diabetic nephropathy and hypertensive nephrosclerosis Nephrology consultation placed on Lasix drip. Strict I's and O's. Fluid restriction 1600 mL a day. Liquid diet. Advance as tolerated. Follow Accu-Cheks. Care was discussed with the patient and the the bedside. Nephrology consultation. Past Medical History Past Medical History: Heart Failure, Diabetes Mellitus, Hyperlipidemia, Hypertension Additional Past Medical History / Comment(s): COVID (vented) IDDM type II, neuropathy bilateral feet, gout, bilateral eye catarct removal, MRSA . History of Any Multi-Drug Resistant Organisms: MRSA Date of last positivie culture/infection: 12/17/20 MDRO Source:: Right Leg Past Surgical History: Cholecystectomy Additional Past Surgical History / Comment(s): I&D scrotal abscess, I&D back abscess Past Anesthesia/Blood Transfusion Reactions: No Reported Reaction Past Psychological History: Anxiety Smoking Status: Former smoker Past Alcohol Use History: None Reported Past Drug Use History: None Reported - Past Family History Mother Family Medical History: Diabetes Mellitus Father History Unknown: Yes Medications and Allergies Home Medications Medication Instructions Recorded Confirmed Type DULoxetine HCL [Cymbalta] 60 mg PO DAILY 04/01/20 09/02/21 History Acetaminophen Tab [Tylenol] 650 mg PO Q4H PRN 07/25/20 09/02/21 History Atorvastatin [Lipitor] 40 mg PO DAILY #30 tab 10/13/20 09/02/21 Rx Metoprolol Tartrate [Lopressor] 50 mg PO BID 30 Days #60 tab 01/14/21 09/02/21 Rx Aspirin 81 mg PO DAILY #30 chewable 01/18/21 09/02/21 Rx Isosorbide Mononitrate ER [Imdur] 30 mg PO DAILY #30 tab.er.24h 02/11/21 09/02/21 Rx Furosemide [Lasix] 80 mg PO BID@0900,1600 #60 tab 03/17/21 09/02/21 Rx Gabapentin [Neurontin] 100 mg PO TID #12 cap 03/17/21 09/02/21 Rx Insulin Aspart Protam & Aspart See Protocol SQ ACHS 09/02/21 09/02/21 History [NovoLOG MIX 70-30 Flexpen] Omeprazole [PriLOSEC] 40 mg PO DAILY 09/02/21 09/02/21 History Ozempic 4mg/3ml 4 mg SQ TU 09/02/21 09/02/21 History amLODIPine [Norvasc] 5 mg PO BID 09/02/21 09/02/21 History rOPINIRole HCL [Requip] 0.25 mg PO HS 09/02/21 09/02/21 History Allergies Allergy/AdvReac Type Severity Reaction Status Date / Time No Known Allergies Allergy Verified 09/02/21 18:32 Physical Exam Vitals: Vital Signs Temp Pulse Pulse Resp BP Pulse Ox 09/03/21 06:33 93 18 89 L 09/03/21 06:00 88 18 147/75 90 L 09/03/21 04:14 89 18 145/73 92 L 09/03/21 02:59 98.9 F 92 18 149/76 90 L 09/03/21 01:00 97 18 140/92 97 09/03/21 00:00 93 16 127/65 94 L 09/02/21 23:00 90 11 L 127/65 92 L 09/02/21 22:00 91 12 127/65 92 L 09/02/21 21:00 90 18 127/65 95 09/02/21 20:00 92 16 121/65 95 09/02/21 19:26 96 18 121/65 91 L 09/02/21 19:22 97.8 F 92 16 126/65 96 09/02/21 17:08 98 09/02/21 17:01 100 20 150/76 95 09/02/21 16:57 100 09/02/21 15:00 105 H 22 09/02/21 14:17 99.9 F H 109 H 22 164/89 94 L Intake and Output 09/02/21 09/03/21 09/03/21 22:59 06:59 14:59 Intake Total 480 Output Total 800 Balance -320 Intake: Oral 480 Output: Urine 800 Results CBC & Chem 7: 09/02/21 15:15 09/02/21 15:11 Labs: Abnormal Lab Results - Last 24 Hours (Table) 09/02/21 09/02/21 09/02/21 Range/Units 15:11 15:11 15:11 WBC (3.8-10.6) k/uL RBC (4.30-5.90) m/uL Hgb (13.0-17.5) gm/dL Hct (39.0-53.0) % RDW (11.5-15.5) % Neutrophils # (1.3-7.7) k/uL Lymphocytes # (1.0-4.8) k/uL PT 13.9 H (9.0-12.0) sec INR 1.4 H (<1.2) Potassium 5.9 H (3.5-5.1) mmol/L BUN 83 H (9-20) mg/dL Creatinine 3.14 H (0.66-1.25) mg/dL Glucose 228 H (74-99) mg/dL POC Glucose (mg/dL) (75-99) mg/dL Alkaline Phosphatase 328 H (38-126) U/L Albumin 2.9 L (3.5-5.0) g/dL Procalcitonin 1.72 H (0.02-0.09) ng/mL 09/02/21 09/03/21 Range/Units 15:15 10:31 WBC 19.6 H (3.8-10.6) k/uL RBC 3.72 L (4.30-5.90) m/uL Hgb 10.7 L (13.0-17.5) gm/dL Hct 33.6 L (39.0-53.0) % RDW 15.8 H (11.5-15.5) % Neutrophils # 18.1 H (1.3-7.7) k/uL Lymphocytes # 0.4 L (1.0-4.8) k/uL PT (9.0-12.0) sec INR (<1.2) Potassium (3.5-5.1) mmol/L BUN (9-20) mg/dL Creatinine (0.66-1.25) mg/dL Glucose (74-99) mg/dL POC Glucose (mg/dL) 214 H (75-99) mg/dL Alkaline Phosphatase (38-126) U/L Albumin (3.5-5.0) g/dL Procalcitonin (0.02-0.09) ng/mL
--- NOTE | 2021-09-03 16:50 | P.CNPUL ---
History of Present Illness Consult date: 09/03/21 Reason for consult: dyspnea, pneumonia History of present illness: This is a 51-year-old male patient who came into the ED because of shortness of breath and emesis. The patient also was complaining of some mild chest discomfort which he stated that was of a chronic nature. He also noted to have increased lower extremity edema. He had fever or chills as well. The patient's temperature in the emergency department was 99.9. The patient was tachycardic with a heart rate of 109 and the BP was 1 6489 and EKG showed a normal sinus rhythm without any acute ischemic changes. The echo with of 19.6 with a hemoglobin of 10.7, the patient's BUN was 83 with a creatinine of 3.14 and the patient is level of 139 and a glucose of 228. Potassium level was at 5.9. The patient had troponin level of less than 0.01, LFTs are essentially showing an AST of 47, ALT of 28 with an PHOSPHATASE OF 1028 AND THE PATIENT HAD A PROBNP LEVEL OF 28,000. COVID 19 TESTING WAS NEGATIVE. The chest x-ray showed evidence of elevation of the diaphragms due to reduced respiratory effort and the patient had bilateral pulmonary infiltrates and small effusions consistent with pulmonary edema. Underlying pneumonia cannot be completely excluded. This patient is known to have multiple medical problems and comorbidities. The patient has chronic heart failure which is of a diastolic dysfunction. The patient has also previous history of autonomic dysfunction secondary to diabetes mellitus and chronic kidney disease stage IV and chronic bilateral lower extremity ulceration with various healing stages due to diabetic peripheral neuropathy. The patient also has been reported to have COPD and is been essentially noncompliant to medical treatment. During his last admission of March 2021, the patient acute kidney injury and the patient was found to have previous azotemia related to CHF and the patient had volume overload and the patient was given a permacath dialysis catheter and he was started on hemodialysis MWF 3 times a week. According to the history, the patient was taken Lasix 80 mg at home. He has not been dialyzed and his dialysis and he was offered back in March of 2021. Mother the patient also has previous history of endocarditis secondary to MRSA diagnosis established at [facility] the patient was treated accordingly. He also had MRSA soft tissue infection in the past requiring incision and drainage. Review of Systems CONSTITUTIONAL: Reports some low-grade fever. No chills. HEENT: No recent hearing problems. Denied any sore throat. CARDIOVASCULAR: No chest pain,no palpitations, no syncope. PULMONARY:no hemoptysis. , Admits to have some increased shortness of breath. GASTROINTESTINAL: No diarrhea, no nausea, no vomiting, no abdominal pain. NEUROLOGICAL: No headaches, no weakness, no numbness. HEMATOLOGICAL: Denies any bleeding or petechiae. GENITOURINARY: Denies any burning micturition, frequency, or urgency. MUSCULOSKELETAL/RHEUMATOLOGICAL: Denies any joint pain, swelling, or any muscle pain. ENDOCRINE: Denies any polyuria or polydipsia. Past Medical History Past Medical History: Heart Failure, Diabetes Mellitus, Hyperlipidemia, Hypertension, Renal Disease Additional Past Medical History / Comment(s): COVID (vented) IDDM type II, neuropathy bilateral feet, gout, bilateral eye catarct removal, MRSA . History of Any Multi-Drug Resistant Organisms: MRSA Date of last positivie culture/infection: 12/17/20 MDRO Source:: Right Leg Past Surgical History: Cholecystectomy Additional Past Surgical History / Comment(s): I&D scrotal abscess, I&D back abscess Past Anesthesia/Blood Transfusion Reactions: No Reported Reaction Past Psychological History: Anxiety Smoking Status: Former smoker Past Alcohol Use History: None Reported Past Drug Use History: None Reported - Past Family History Mother Family Medical History: Diabetes Mellitus Father History Unknown: Yes Medications and Allergies Home Medications Medication Instructions Recorded Confirmed Type DULoxetine HCL [Cymbalta] 60 mg PO DAILY 04/01/20 09/02/21 History Acetaminophen Tab [Tylenol] 650 mg PO Q4H PRN 07/25/20 09/02/21 History Atorvastatin [Lipitor] 40 mg PO DAILY #30 tab 10/13/20 09/02/21 Rx Metoprolol Tartrate [Lopressor] 50 mg PO BID 30 Days #60 tab 01/14/21 09/02/21 Rx Aspirin 81 mg PO DAILY #30 chewable 01/18/21 09/02/21 Rx Isosorbide Mononitrate ER [Imdur] 30 mg PO DAILY #30 tab.er.24h 02/11/21 09/02/21 Rx Furosemide [Lasix] 80 mg PO BID@0900,1600 #60 tab 03/17/21 09/02/21 Rx Gabapentin [Neurontin] 100 mg PO TID #12 cap 03/17/21 09/02/21 Rx Insulin Aspart Protam & Aspart See Protocol SQ ACHS 09/02/21 09/02/21 History [NovoLOG MIX 70-30 Flexpen] Omeprazole [PriLOSEC] 40 mg PO DAILY 09/02/21 09/02/21 History Ozempic 4mg/3ml 4 mg SQ TU 09/02/21 09/02/21 History amLODIPine [Norvasc] 5 mg PO BID 09/02/21 09/02/21 History rOPINIRole HCL [Requip] 0.25 mg PO HS 09/02/21 09/02/21 History Allergies Allergy/AdvReac Type Severity Reaction Status Date / Time No Known Allergies Allergy Verified 09/02/21 18:32 Physical Exam Vitals: Vital Signs Temp Pulse Pulse Resp BP BP Pulse Ox 09/03/21 08:00 98.4 F 94 18 161/93 97 09/03/21 06:33 93 18 89 L 09/03/21 06:00 88 18 147/75 90 L 09/03/21 04:14 89 18 145/73 92 L 09/03/21 02:59 98.9 F 92 18 149/76 90 L 09/03/21 01:00 97 18 140/92 97 09/03/21 00:00 93 16 127/65 94 L 09/02/21 23:00 90 11 L 127/65 92 L 09/02/21 22:00 91 12 127/65 92 L 09/02/21 21:00 90 18 127/65 95 09/02/21 20:00 92 16 121/65 95 09/02/21 19:26 96 18 121/65 91 L 09/02/21 19:22 97.8 F 92 16 126/65 96 09/02/21 17:08 98 09/02/21 17:01 100 20 150/76 95 09/02/21 16:57 100 Intake and Output 09/03/21 09/03/21 09/03/21 06:59 14:59 22:59 Intake Total 480 Output Total 800 Balance -320 Intake: Oral 480 Output: Urine 800 GENERAL EXAM: Alert, pleasant, 51-year-old white male, on room air, the pulse ox 97%, no significant shortness of breath at this point in time. Patient is currently on 5 L of oxygen by nasal cannula. HEAD: Normocephalic/atraumatic. EYES: Normal reaction of pupils, equal size. Conjunctiva pink, sclera white. NOSE: Clear with pink turbinates. THROAT: No erythema or exudates. NECK: No masses, no JVD, no thyroid enlargement, no adenopathy. CHEST: No chest wall deformity. Symmetrical expansion. LUNGS: Equal air entry with no crackles, wheeze, rhonchi or dullness. Breath sounds are diminished in lung bases bilaterally along with some dullness to percussion CVS: Regular rate and rhythm, normal S1 and S2, no gallops, no murmurs, no rubs, there is a stage II systolic ejection murmur over the apex. ABDOMEN: Soft, nontender. No hepatosplenomegaly, normal bowel sounds, no guarding or rigidity. EXTREMITIES: No clubbing, no edema, no cyanosis, 2+ pulses and upper and lower extremities. MUSCULOSKELETAL: Muscle strength and tone normal. SPINE: No scoliosis or deformity SKIN: left flank cellulitis, 2 surg wounds, covered with dressings CENTRAL NERVOUS SYSTEM: Alert and oriented -3. No focal deficits, tone is normal in all 4 extremities. PSYCHIATRIC: Alert and oriented -3. Appropriate affect. Intact judgment and insight. Results - Laboratory Findings CBC and BMP: 09/02/21 15:15 09/02/21 15:11 PT/INR, D-dimer PT 13.9 sec (9.0-12.0) H 09/02/21 15:11 INR 1.4 (<1.2) H 09/02/21 15:11 Abnormal lab findings: Abnormal Labs 09/02/21 09/02/21 09/02/21 15:11 15:11 15:11 WBC RBC Hgb Hct RDW Neutrophils # Lymphocytes # PT 13.9 H INR 1.4 H Potassium 5.9 H BUN 83 H Creatinine 3.14 H Glucose 228 H POC Glucose (mg/dL) Alkaline Phosphatase 328 H Albumin 2.9 L Procalcitonin 1.72 H 09/02/21 09/03/21 09/03/21 15:15 10:31 11:36 WBC 19.6 H RBC 3.72 L Hgb 10.7 L Hct 33.6 L RDW 15.8 H Neutrophils # 18.1 H Lymphocytes # 0.4 L PT INR Potassium BUN Creatinine Glucose POC Glucose (mg/dL) 214 H 222 H Alkaline Phosphatase Albumin Procalcitonin - Diagnostic Findings Chest x-ray: image reviewed Assessment and Plan Plan: 1 acute hypoxic respiratory failure secondary to fluid overload with possibly component of CHF. Patient is currently on oxygen at 4 L per minute nasal cannula to maintain a saturation above 97%. Pneumonia is doubtful at this point in time. Note that the patient has also recovered recently from 8 COVID 19 pneumonia. She was hospitalized. Some of the pulmonary infiltrates are seen on the chest x-ray could be residual from a COVID 19 infection. 2 COVID 19 pneumonia with secondary respiratory failure hospitalized and [facility] for a few days and the patient was extubated successfully. 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 6 diabetes mellitus type 1, poorly controlled 7 diabetic peripheral neuropathy,diabetic retinopathy 8 congestion heart failure essentially diastolic dysfunction 9 hypertension 10 hyperlipidemia 11 multiple bilateral lower extremity ulceration with various healing stages and the diabetic peripheral neuropathy 12 COPD 13 medication noncompliance 14 acute leukocytosis 15 hyperkalemia with a potassium level of 5.9 Plan Consult nephrology Start the patient IV Lasix 80 mg every 12 hours Monitor potassium level and the rest of the electrolytes Monitor volume status and the patient may need hemodialysis again Monitor fever pattern and the patient is currently afebrile and the patient is hemodynamically stable on 5 L by nasal cannula Sent blood cultures ID consultation We'll continue to follow No need for any antibiotics at this point in time.
[2021-09-03 17:13] LABS: Glucose,Whole Blood 199 mg/dL (75-99)
[2021-09-03] MEDS: FUROSEMIDE 100 MG in SODIUM CHLORIDE 0.9% 90 ML IV SCH (17:40)
[2021-09-03] MEDS: INSULIN ASPART (NovoLOG) 100 UNIT/ML VIAL SQ SCH ×2 (18:10→19:54)
[2021-09-03] MEDS: IPRATROPIUM-ALBUTEROL 3 ML NEB INHALATION SCH ×2 (19:35→19:40)
[2021-09-03 19:54] LABS: Glucose,Whole Blood 213 mg/dL (75-99)
[2021-09-03] MEDS ORDERED: INSULIN DETEMIR (LEVEMIR) 100 UNIT/ML SYR SQ SCH (21:00)
[2021-09-03] MEDS ORDERED: FUROSEMIDE 10 MG/ML 10 ML VIAL IV SCH (21:00)
[2021-09-03] MEDS ORDERED: ONDANSETRON 4 MG/2 ML VIAL IVP PRN (22:00)
[2021-09-04] MEDS: FUROSEMIDE 100 MG in SODIUM CHLORIDE 0.9% 90 ML IV SCH ×3 (02:45→19:49)
[2021-09-04] MEDS ORDERED: DEXTROSE 50% SYRINGE 50 ML IVP ONE ×2 (06:20→07:32)
[2021-09-04 06:29] LABS: Glucose,Whole Blood 37 mg/dL (75-99)
[2021-09-04] MEDS: PANTOPRAZOLE 40 MG TABLET PO SCH (06:30)
[2021-09-04] MEDS: INSULIN ASPART (NovoLOG) 100 UNIT/ML VIAL SQ SCH ×4 (06:30→20:27)
[2021-09-04 06:36] LABS: Glucose,Whole Blood 97 mg/dL (75-99)
[2021-09-04 07:40] LABS: Glucose,Whole Blood 49 mg/dL (75-99)
[2021-09-04 07:40] LABS: Glucose,Whole Blood 52 mg/dL (75-99)
[2021-09-04 07:52] LABS: Glucose,Whole Blood 113 mg/dL (75-99)
[2021-09-04] MEDS: IPRATROPIUM-ALBUTEROL 3 ML NEB INHALATION SCH ×4 (08:17→19:24)
[2021-09-04 09:01] LABS: Glucose,Whole Blood 87 mg/dL (75-99)
[2021-09-04] MEDS: amLODIPine 5 MG TAB PO SCH ×2 (09:43→19:58)
[2021-09-04] MEDS: ASPIRIN 81 MG PO SCH (09:43)
[2021-09-04] MEDS: GABAPENTIN 100 MG CAP PO SCH ×3 (09:43→19:58)
[2021-09-04] MEDS: ISOSORBIDE MONONITRATE ER 30 MG TAB.ER.24H PO SCH (09:43)
[2021-09-04] MEDS: ATORVASTATIN 40 MG TAB PO SCH (09:43)
[2021-09-04] MEDS: DULoxetine HCL 60 MG CAPSULE.DR PO SCH (09:43)
[2021-09-04] MEDS: ACETAMINOPHEN TAB 325 MG TAB PO PRN ×2 (09:45→16:25)
--- NOTE | 2021-09-04 10:38 | P.PN ---
Subjective Patient is seen in follow-up for chronic kidney disease. Patient has chronic kidney disease stage IV with creatinine in the range of 3-4. Morning labs pending. He is maintained on Lasix drip. Good urine output. Oral intake fair. Diarrhea resolved. Vital signs are stable. General: The patient appeared well nourished and normally developed. HEENT: Head exam is unremarkable. LUNGS: Breath sounds decreased. HEART: Rate and Rhythm are regular. ABDOMEN: Soft, no distention. EXTREMITITES: 2+ edema. Objective - Vital Signs Vital signs: Vital Signs Temp 96.9 F L 09/04/21 08:00 Pulse 74 09/04/21 08:00 Resp 16 09/04/21 08:00 BP 115/68 09/04/21 08:00 Pulse Ox 91 L 09/04/21 08:00 Intake & Output 09/03/21 09/04/21 09/04/21 18:59 06:59 18:59 Intake Total 480 90.833 Output Total 800 Balance -320 90.833 Weight 99.79 kg Intake: Intake, IV Titration 90.833 Amount Furosemide 100 mg In 90.833 Sodium Chloride 0.9% 90 ml @ 10 MG/HR 10 mls/hr IV .Q10H [facility] Rx#: [id number] Oral 480 Output: Urine 800 Other: Voiding Method Urinal Urinal Urinal - Labs CBC & Chem 7: 09/02/21 15:15 09/02/21 15:11 Labs: Abnormal Lab Results - Last 24 Hours (Table) 09/03/21 09/03/21 09/03/21 Range/Units 10:31 11:36 17:11 POC Glucose (mg/dL) 214 H 222 H 199 H (75-99) mg/dL 09/03/21 09/04/21 09/04/21 Range/Units 19:52 06:19 07:28 POC Glucose (mg/dL) 213 H 37 L 49 L (75-99) mg/dL 09/04/21 09/04/21 Range/Units 07:29 07:50 POC Glucose (mg/dL) 52 L 113 H (75-99) mg/dL Microbiology - Last 24 Hours (Table) 09/02/21 17:00 Blood Culture - Preliminary Blood No Growth after 24 hours 09/02/21 16:45 Blood Culture - Preliminary Blood No Growth after 24 hours Assessment and Plan Plan: Assessment: 1. Chronic kidney disease stage IV with baseline creatinine in the range of 3-4 secondary to cardiorenal syndrome diabetic kidney disease. Creatinine 3.14 yesterday. 2. Volume overload. 3. Acute on chronic diastolic CHF with mild to moderate aortic regurgitation. 4. Hyperkalemia secondary to chronic kidney disease and hyperglycemia. 5. Hypertension with chronic kidney disease. Stable. Plan: Maintain Lasix drip. Add metolazone 5 mg once daily. 1200 mL fluid restriction. Continue to monitor renal function and urine output. Follow-up morning labs and repeat labs in the morning. Hold amlodipine for systolic blood pressure less than 120.
[2021-09-04 10:40] LABS: Calcium 7.9 mg/dL (8.4-10.2); Magnesium 2.1 mg/dL (1.6-2.3); Potassium 4.8 mmol/L (3.5-5.1)
[2021-09-04] MEDS: METOPROLOL TARTRATE 50 MG TAB PO SCH ×2 (11:02→19:58)
--- NOTE | 2021-09-04 11:35 | P.PN ---
Subjective Progress Note Date: 09/04/21 This is a 51-year-old male patient who came into the ED because of shortness of breath and emesis. The patient also was complaining of some mild chest discomfort which he stated that was of a chronic nature. He also noted to have increased lower extremity edema. He had fever or chills as well. The patient's temperature in the emergency department was 99.9. The patient was tachycardic with a heart rate of 109 and the BP was 1 6489 and EKG showed a normal sinus rhythm without any acute ischemic changes. The echo with of 19.6 with a hemoglobin of 10.7, the patient's BUN was 83 with a creatinine of 3.14 and the patient is level of 139 and a glucose of 228. Potassium level was at 5.9. The patient had troponin level of less than 0.01, LFTs are essentially showing an AST of 47, ALT of 28 with an PHOSPHATASE OF 1028 AND THE PATIENT HAD A PROBNP LEVEL OF 28,000. COVID 19 TESTING WAS NEGATIVE. The chest x-ray showed evidence of elevation of the diaphragms due to reduced respiratory effort and the patient had bilateral pulmonary infiltrates and small effusions consistent with pulmonary edema. Underlying pneumonia cannot be completely excluded. This patient is known to have multiple medical problems and comorbidities. The patient has chronic heart failure which is of a diastolic dysfunction. The patient has also previous history of autonomic dysfunction secondary to diabetes mellitus and chronic kidney disease stage IV and chronic bilateral lower extremity ulceration with various healing stages due to diabetic peripheral neuropathy. The patient also has been reported to have COPD and is been essentially noncompliant to medical treatment. During his last admission of 2020, the patient acute kidney injury and the patient was found to have previous azotemia related to CHF and the patient had volume overload and the patient was given a permacath dialysis catheter and he was started on hemodialysis MWF 3 times a week. According to the history, the patient was t aken Lasix 80 mg at home. He has not been dialyzed and his dialysis and he was offered back in March of 2021. Mother the patient also has previous history of endocarditis secondary to MRSA diagnosis established at [facility] the patient was treated accordingly. He also had MRSA soft tissue infection in the past requiring incision and drainage. 09/04/2021, the patient remains on IV Lasix. Exact amount of urine output is not clearly documented in the records. No significant shortness of breath. The patient is still on oxygen at 6 L per minute with a pulse ox of 91%. Afebrile. Hemodynamically stable. No worsening shortness of breath. Blood work from today shows a BUN of 79 with a creatinine of 3.1, potassium is at 4.8 with a sodium level of 134. The patient is receiving Lasix and this was switched from Lasix IV push daily Lasix drip at 10 mg an hour. He is on Levemir insulin 14 units along with a sliding scale coverage. Objective - Vital Signs Vital signs: Vital Signs Temp 96.9 F L 09/04/21 08:00 Pulse 74 09/04/21 08:00 Resp 16 09/04/21 08:00 BP 115/68 09/04/21 08:00 Pulse Ox 91 L 09/04/21 08:00 Intake & Output 09/03/21 09/04/21 09/04/21 18:59 06:59 18:59 Intake Total 480 90.833 82.667 Output Total 800 Balance -320 90.833 82.667 Weight 99.79 kg 99.79 kg Intake: Intake, IV Titration 90.833 82.667 Amount Furosemide 100 mg In 90.833 82.667 Sodium Chloride 0.9% 90 ml @ 10 MG/HR 10 mls/hr IV .Q10H [facility] Rx#: [id number] Oral 480 Output: Urine 800 Other: Voiding Method Urinal Urinal Urinal - Exam GENERAL EXAM: Alert, pleasant, 51-year-old white male, on room air, the pulse ox 97%, no significant shortness of breath at this point in time. Patient is currently on 5 L of oxygen by nasal cannula. HEAD: Normocephalic/atraumatic. EYES: Normal reaction of pupils, equal size. Conjunctiva pink, sclera white. NOSE: Clear with pink turbinates. THROAT: No erythema or exudates. NECK: No masses, no JVD, no thyroid enlargement, no adenopathy. CHEST: No chest wall deformity. Symmetrical expansion. LUNGS: Equal air entry with no crackles, wheeze, rhonchi or dullness. Breath sounds are diminished in lung bases bilaterally along with some dullness to percussion CVS: Regular rate and rhythm, normal S1 and S2, no gallops, no murmurs, no rubs, there is a stage II systolic ejection murmur over the apex. ABDOMEN: Soft, nontender. No hepatosplenomegaly, normal bowel sounds, no guarding or rigidity. EXTREMITIES: No clubbing, no edema, no cyanosis, 2+ pulses and upper and lower extremities. MUSCULOSKELETAL: Muscle strength and tone normal. SPINE: No scoliosis or deformity SKIN: left flank cellulitis, 2 surg wounds, covered with dressings CENTRAL NERVOUS SYSTEM: Alert and oriented -3. No focal deficits, tone is normal in all 4 extremities. PSYCHIATRIC: Alert and oriented -3. Appropriate affect. Intact judgment and insight. - Labs CBC & Chem 7: 09/02/21 15:15 09/04/21 10:10 Labs: Abnormal Lab Results - Last 24 Hours (Table) 09/03/21 09/03/21 09/03/21 Range/Units 11:36 17:11 19:52 Sodium (137-145) mmol/L BUN (9-20) mg/dL Creatinine (0.66-1.25) mg/dL Glucose (74-99) mg/dL POC Glucose (mg/dL) 222 H 199 H 213 H (75-99) mg/dL Calcium (8.4-10.2) mg/dL 09/04/21 09/04/21 09/04/21 Range/Units 06:19 07:28 07:29 Sodium (137-145) mmol/L BUN (9-20) mg/dL Creatinine (0.66-1.25) mg/dL Glucose (74-99) mg/dL POC Glucose (mg/dL) 37 L 49 L 52 L (75-99) mg/dL Calcium (8.4-10.2) mg/dL 09/04/21 09/04/21 Range/Units 07:50 10:10 Sodium 134 L (137-145) mmol/L BUN 79 H (9-20) mg/dL Creatinine 3.13 H (0.66-1.25) mg/dL Glucose 73 L (74-99) mg/dL POC Glucose (mg/dL) 113 H (75-99) mg/dL Calcium 7.9 L (8.4-10.2) mg/dL Microbiology - Last 24 Hours (Table) 09/02/21 17:00 Blood Culture - Preliminary Blood No Growth after 24 hours 09/02/21 16:45 Blood Culture - Preliminary Blood No Growth after 24 hours Assessment and Plan Plan: 1 acute hypoxic respiratory failure secondary to fluid overload with possibly component of CHF. Patient is currently on oxygen at 6 L per minute nasal cannula to maintain a saturation above 90%. Pneumonia is doubtful at this point in time. Note that the patient has also recovered recently recovered from COVID 19 pneumonia. She was hospitalized. Some of the pulmonary infiltrates are seen on the chest x-ray could be residual from a COVID 19 infection. 2 COVID 19 pneumonia with secondary respiratory failure hospitalized and [facility] for a few days and the patient was extubated successfully. 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 6 diabetes mellitus type 1, poorly controlled 7 diabetic peripheral neuropathy,diabetic retinopathy 8 congestion heart failure essentially diastolic dysfunction 9 hypertension 10 hyperlipidemia 11 multiple bilateral lower extremity ulceration with various healing stages and the diabetic peripheral neuropathy 12 COPD 13 medication noncompliance 14 acute leukocytosis 15 hyperkalemia with a potassium level of 5.9 Plan Continue Lasix drip at 10 mg an hour Monitor potassium level and the rest of the electrolytes Monitor volume status and the patient may need hemodialysis again Monitor fever pattern and the patient is currently afebrile and the patient is hemodynamically stable on 6 L by nasal cannula Sent blood cultures We'll continue to follow No need for any antibiotics at this point in time.
[2021-09-04 12:01] LABS: Glucose,Whole Blood 93 mg/dL (75-99)
--- NOTE | 2021-09-04 14:44 | P.PN ---
Progress Note - Text Progress Note Date: 09/04/21 Chief Complaint: Short of breath History of presenting complaint This is a very pleasant 51-year-old patient, chronic stable medical conditions include diabetes mellitus type 2, peripheral neuropathy, hyperlipidemia patient has chronic lower extremity leg wounds. Autonomic dysfunction from diabetes. Causing orthostatics. Patient now presents with episodes of falling down. He states that these happens intermittently. The current episode patient was satting in the kitchen reaching [facility] to get a copy and his legs and he felt weak and then he went down to the ground. no chest pain or palpitation. He does often get dizzy on standing up. No seizure activity. No focal weakness. Appetite is good. No fever no chills. Patient now presents for short of breath for 2 days. Some cough with green sputum. Also developed some vomiting. Also had some diarrhea. Decreased appetite. There had been some chills. Increasing lower extremity edema. Last bowel movement was yesterday. Last vomiting was yesterday the ER. Patient is accompanied by his girlfriend. Seen earlier by nephrology given IV Lasix. September 04: Breathing a bit better. Sitting at edge of the bed. Slight decrease in edema. Tolerating full liquid. Gets full easily. No diarrhea. No vomiting. Lasix drip. Making good urine. Active Medications Acetaminophen (Acetaminophen Tab 325 Mg Tab) 650 mg PO Q6HR PRN PRN Reason: Mild Pain or Fever > 100.5 Last Admin: 09/04/21 09:45 Dose: 650 mg Documented by: Albuterol/Ipratropium (Ipratropium-Albuterol 3 Ml Neb) 3 ml INHALATION RT-QID [facility] Last Admin: 09/04/21 12:24 Dose: Not Given Documented by: Amlodipine Besylate (Amlodipine 5 Mg Tab) 5 mg PO BID [facility] Last Admin: 09/04/21 09:43 Dose: 5 mg Documented by: Aspirin (Aspirin 81 Mg) 81 mg PO DAILY [facility] Last Admin: 09/04/21 09:43 Dose: 81 mg Documented by: Atorvastatin Calcium (Atorvastatin 40 Mg Tab) 40 mg PO DAILY [facility] Last Admin: 09/04/21 09:43 Dose: 40 mg Documented by: Duloxetine HCl (Duloxetine Hcl 60 Mg Capsule.) 60 mg PO DAILY [facility] Last Admin: 09/04/21 09:43 Dose: 60 mg Documented by: Gabapentin (Gabapentin 100 Mg Cap) 100 mg PO TID [facility] Last Admin: 09/04/21 09:43 Dose: 100 mg Documented by: Furosemide 100 mg/ Sodium (Chloride) 100 mls @ 10 mls/hr IV .Q10H [facility] Last Admin: 09/04/21 11:01 Dose: 10 mg/hr, 10 mls/hr Documented by: Insulin Aspart (Insulin Aspart (Novolog) 100 Unit/Ml Vial) [address] [facility]; Protocol Last Admin: 09/04/21 12:12 Dose: Not Given Documented by: Insulin Detemir (Insulin Detemir (Levemir) 100 Unit/Ml Syr) 14 unit SQ [facility] Last Admin: 09/03/21 19:54 Dose: 14 unit Documented by: Isosorbide Mononitrate (Isosorbide Mononitrate Er 30 Mg Tab.Er.24h) 30 mg PO DAILY [facility] Last Admin: 09/04/21 09:43 Dose: 30 mg Documented by: Metolazone (Metolazone 5 Mg Tab) 5 mg PO DAILY [facility] Metoprolol Tartrate (Metoprolol Tartrate 50 Mg Tab) 50 mg PO BID [facility] Last Admin: 09/04/21 11:02 Dose: Not Given Documented by: Naloxone HCl (Naloxone 0.4 Mg/Ml 1 Ml Vial) 0.2 mg IV Q2M PRN PRN Reason: Opioid Reversal Ondansetron HCl (Ondansetron 4 Mg/2 Ml Vial) 4 mg IVP Q6HR PRN PRN Reason: Nausea And Vomiting Pantoprazole Sodium (Pantoprazole 40 Mg Tablet) 40 mg PO DAILY@0730 [facility] Last Admin: 09/04/21 06:30 Dose: Not Given Documented by: Ropinirole HCl (Ropinirole Hcl 0.25 Mg Tab) 0.25 mg PO [facility] Last Admin: 09/03/21 19:52 Dose: 0.25 mg Documented by: Past medical history to include: Diabetes, hyperlipidemia, peripheral neuropathy, MRSA infection including abscess and cellulitis,, anxiety, diabetic autonomic dysfunction Social history: Patient lives with his 2 children. 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 Smoking 2 packs a day for 32 years. , Stopped less than a year ago. Alcohol occasionally. Physical examination: VITAL SIGNS: 96.9, 56, 16, 115/68, 91% on 6 L GENERAL: Sitting in the bed, awake, tired EYES: Pupils equal. Conjunctiva normal. HEENT: External appearance of nose and ears normal, oral cavity grossly normal. NECK: JVD not raised; masses not palpable. HEART: First and second heart sounds are normal; gross edema LUNGS: Respiratory rate increased, decreased breath sounds. ABDOMEN: Soft, distended nontender, liver spleen not palpable, no masses palpable. PSYCH: Alert and oriented x3; mood and affect anxious DERMATOLOGICAL: Wounds of the lower extremity. See nursing notes. INVESTIGATIONS, reviewed in the clinical context: September 04: Potassium 4.8 BUN 79 creatinine 3.13 White count 19.6 hemoglobin 10.7 platelets 313 potassium 5.9 BUN 83 creatinine 3.14 Chest x-ray film personally reviewed by me-pulmonary edema EKG tracing personally reviewed by me-normal sinus rhythm. Nonspecific T-wave changes. Pro-calcitonin 1.7 to Coronavirus [PCR]: Not detected Previous labs: March 2021: BUN 55 creatinine 4.136 Assessment and plan: --Acute on Chronic congestive heart failure from diastolic dysfunction EF 50- 55%: Slow to respond Continue Lasix drip at 10 mg an hour. Strict I's and O's. -Acute gastroenteritis, likely viral.: Better Liquid diet. Advance as tolerated -Chronic autonomic dysfunction from diabetes- Fall precautions -Chronic stable angina with a prior history of positive nuclear stress test. Imdur ER 30 mg a day -Chronic lower extremity wounds. 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 Decrease Levemir to 18 units at night. -Diabetic peripheral neuropathy Neurontin 100 mg 3 times a day -Hyperlipidemia Lipitor 40 mg a day -COPD in a previous smoker DuoNeb when necessary -Chronic kidney disease stage 4 likely combination of diabetic nephropathy and h ypertensive nephrosclerosis Nephrology consultation Continue Lasix drip. Strict I's and O's. Fluid restriction 1600 mL a day. Liquid diet. Discussed the patient. Cutback Levemir to 8 units.
[2021-09-04] MEDS: metOLazone 5 MG TAB PO SCH (14:46)
[2021-09-04 17:01] LABS: Glucose,Whole Blood 139 mg/dL (75-99)
[2021-09-04 19:48] LABS: Glucose,Whole Blood 166 mg/dL (75-99)
[2021-09-04] MEDS: MUPIROCIN 2% OINT 22 GM TUBE TOPICAL SCH (19:58)
[2021-09-04] MEDS ORDERED: INSULIN DETEMIR (LEVEMIR) 100 UNIT/ML SYR SQ SCH (21:00)
--- NOTE | 2021-09-04 22:28 | XR ---
EXAMINATION TYPE: XR Hip Complete RT DATE OF EXAM: 09/04/2021 COMPARISON: NONE HISTORY: Right hip pain TECHNIQUE: 2 views FINDINGS: I see no definite fracture nor dislocation. Hip joint space is fairly normal. Acetabulum is intact. IMPRESSION: I do not see a definite hip fracture.
[2021-09-04] MEDS: BACLOFEN 10 MG TAB PO PRN (23:49)
[2021-09-05 06:02] LABS: Glucose,Whole Blood 231 mg/dL (75-99)
[2021-09-05] MEDS: FUROSEMIDE 100 MG in SODIUM CHLORIDE 0.9% 90 ML IV SCH ×2 (06:13→14:03)
[2021-09-05] MEDS: PANTOPRAZOLE 40 MG TABLET PO SCH (06:13)
[2021-09-05] MEDS: INSULIN ASPART (NovoLOG) 100 UNIT/ML VIAL SQ SCH ×4 (06:13→21:49)
[2021-09-05] MEDS: metOLazone 5 MG TAB PO SCH (07:24)
[2021-09-05] MEDS: ISOSORBIDE MONONITRATE ER 30 MG TAB.ER.24H PO SCH (07:24)
[2021-09-05] MEDS: METOPROLOL TARTRATE 50 MG TAB PO SCH ×2 (07:25→21:48)
[2021-09-05] MEDS: GABAPENTIN 100 MG CAP PO SCH ×3 (07:25→21:48)
[2021-09-05] MEDS: ASPIRIN 81 MG PO SCH (07:25)
[2021-09-05] MEDS: ATORVASTATIN 40 MG TAB PO SCH (07:25)
[2021-09-05] MEDS: amLODIPine 5 MG TAB PO SCH ×2 (07:26→21:48)
[2021-09-05] MEDS: DULoxetine HCL 60 MG CAPSULE.DR PO SCH (07:26)
[2021-09-05] MEDS: IPRATROPIUM-ALBUTEROL 3 ML NEB INHALATION SCH ×4 (07:52→19:54)
--- NOTE | 2021-09-05 09:14 | XR ---
EXAMINATION TYPE: XR chest 2V DATE OF EXAM: 09/05/2021 COMPARISON: 09/02/2021 INDICATION: CHF TECHNIQUE: Frontal and lateral views of the chest are obtained. FINDINGS: The heart size is normal. The pulmonary vasculature is normal. Some mild increased lung markings are present greatest in left mid lung. Findings have improved. IMPRESSION: 1. Mild scattered infiltrates greater in the left midlung have improved over the interval. Continued follow-up is recommended
[2021-09-05 09:16] LABS: Calcium 7.6 mg/dL (8.4-10.2); Magnesium 2.1 mg/dL (1.6-2.3); Potassium 4.9 mmol/L (3.5-5.1)
--- NOTE | 2021-09-05 10:20 | P.CNOR ---
History of Present Illness - [facility] Consult date: 09/05/21 Consult reason: joint pain History of present illness: Patient is a 51-year-old male seen at bedside this morning consultation for right hip pain. He was admitted a few days ago for CHF versus pneumonia. He states he's had right hip and groin pain for the past week or so. It is reported he's had falls. He has pain with range of motion of the right hip and lifting the right leg. His past medical history is positive for chronic diabetes mellitus, CHF, peripheral neuropathy, lower extremity peripheral edema and chronic wounds. He denies other new complaints today. Review of Systems All systems: negative Constitutional: Denies chills, Denies fever Eyes: denies blurred vision, denies pain Ears, nose, mouth and throat: Denies headache, Denies sore throat Cardiovascular: Denies chest pain, Denies shortness of breath Respiratory: Denies cough Gastrointestinal: Denies abdominal pain, Denies diarrhea, Denies nausea, Denies vomiting Musculoskeletal: Denies myalgias Integumentary: Denies pruritus, Denies rash Neurological: Denies numbness, Denies weakness Psychiatric: Denies anxiety, Denies depression Endocrine: Denies fatigue, Denies weight change Past Medical History Past Medical History: Heart Failure, Diabetes Mellitus, Hyperlipidemia, Hype rtension, Renal Disease Additional Past Medical History / Comment(s): COVID (vented) IDDM type II, neuropathy bilateral feet, gout, bilateral eye catarct removal, MRSA . History of Any Multi-Drug Resistant Organisms: MRSA Year Discovered:: 12/17/20 MDRO Source:: Right Leg Past Surgical History: Cholecystectomy Additional Past Surgical History / Comment(s): I&D scrotal abscess, I&D back abscess Past Anesthesia/Blood Transfusion Reactions: No Reported Reaction Smoking Status: Former smoker - Past Family History Mother Family Medical History: Diabetes Mellitus Father History Unknown: Yes Medications and Allergies Home Medications Medication Instructions Recorded Confirmed Type DULoxetine HCL [Cymbalta] 60 mg PO DAILY 04/01/20 09/02/21 History Acetaminophen Tab [Tylenol] 650 mg PO Q4H PRN 07/25/20 09/02/21 History Atorvastatin [Lipitor] 40 mg PO DAILY #30 tab 10/13/20 09/02/21 Rx Metoprolol Tartrate [Lopressor] 50 mg PO BID 30 Days #60 tab 05/13/21 12/30/21 Rx Aspirin 81 mg PO DAILY #30 chewable 01/18/21 09/02/21 Rx Isosorbide Mononitrate ER [Imdur] 30 mg PO DAILY #30 tab.er.24h 02/11/21 09/02/21 Rx Furosemide [Lasix] 80 mg PO BID@0900,1600 #60 tab 03/17/21 09/02/21 Rx Gabapentin [Neurontin] 100 mg PO TID #12 cap 03/17/21 09/02/21 Rx Insulin Aspart Protam & Aspart See Protocol SQ [facility] 09/02/21 09/02/21 History [NovoLOG MIX 70-30 Flexpen] Omeprazole [PriLOSEC] 40 mg PO DAILY 09/02/21 09/02/21 History Ozempic 4mg/3ml 4 mg SQ TU 09/02/21 09/02/21 History amLODIPine [Norvasc] 5 mg PO BID 09/02/21 09/02/21 History rOPINIRole HCL [Requip] 0.25 mg PO HS 09/02/21 09/02/21 History Mupirocin 2% Oint [Bactroban 2% 1 applic TOPICAL TID 09/04/21 09/04/21 History Oint] Allergies Allergy/AdvReac Type Severity Reaction Status Date / Time No Known Allergies Allergy Verified 09/02/21 18:32 Physical Examination Inspection of the right hip and lower extremities show no deformity. There is no erythema or ecchymoses at the right hip and thigh. He has pain in the right groin and anterior hip with flexion to 80 internal and external rotation to 30 and abduction to 30. He has chronic-appearing wounds at the right lower extremity that appear to be noninfectious currently. Neurovascular status is grossly intact with motor and sensation throughout the right lower extremity. His foot and toes are warm to touch and have brisk capillary refill. His calf is soft and nontender. Results Right hip x-ray shows no definite acute fracture. - Labs Labs: Abnormal Lab Results - Last 24 Hours (Table) 09/04/21 09/04/21 09/04/21 Range/Units 10:10 16:56 19:46 Sodium 134 L (137-145) mmol/L Chloride (98-107) mmol/L BUN 79 H (9-20) mg/dL Creatinine 3.13 H (0.66-1.25) mg/dL Glucose 73 L (74-99) mg/dL POC Glucose (mg/dL) 139 H 166 H (75-99) mg/dL Calcium 7.9 L (8.4-10.2) mg/dL 09/05/21 09/05/21 Range/Units 06:00 08:11 Sodium 132 L (137-145) mmol/L Chloride 96 L (98-107) mmol/L BUN 81 H (9-20) mg/dL Creatinine 3.02 H (0.66-1.25) mg/dL Glucose 203 H (74-99) mg/dL POC Glucose (mg/dL) 231 H (75-99) mg/dL Calcium 7.6 L (8.4-10.2) mg/dL Microbiology - Last 24 Hours (Table) 09/02/21 17:00 Blood Culture - Preliminary Blood No Growth after 48 hours 09/02/21 16:45 Blood Culture - Preliminary Blood No Growth after 48 hours H & H 09/02/21 Range/Units 15:15 Hgb 10.7 L (13.0-17.5) gm/dL Hct 33.6 L (39.0-53.0) % Coagulation 09/02/21 Range/Units 15:11 INR 1.4 H (<1.2) Result Diagrams: 09/02/21 15:15 09/05/21 08:11 - Diagnostic results Hip x-ray: report reviewed, image reviewed Assessment and Plan (1) Right hip pain Narrative/Plan: We will order a CT of the right hip. Continue pain management, medical management and DVT prophylaxis. We will review the results of the CT and make further recommendations as appropriate. Current Visit: Yes Status: Acute Code(s): M25.551 - PAIN IN RIGHT HIP SNOMED Code(s): 85347569 Time with Patient: Less than 30
--- NOTE | 2021-09-05 10:24 | P.PN ---
Subjective Patient is seen in follow-up for chronic kidney disease. Patient has chronic kidney disease stage IV with creatinine in the range of 3-4. Renal function fairly stable. He is maintained on Lasix drip. Good urine output. Oral intake fair. Diarrhea resolved. Edema improving. Vital signs are stable. General: The patient appeared well nourished and normally developed. HEENT: Head exam is unremarkable. LUNGS: Breath sounds decreased. HEART: Rate and Rhythm are regular. ABDOMEN: Soft, no distention. EXTREMITITES: 1+ edema. Lower extremity is wrapped. Objective - Vital Signs Vital signs: Vital Signs Temp 98.1 F 09/05/21 07:27 Pulse 78 09/05/21 07:27 Resp 18 09/05/21 07:27 BP 137/78 09/05/21 07:27 Pulse Ox 90 L 09/05/21 07:27 Intake & Output 09/04/21 09/05/21 09/05/21 18:59 06:59 18:59 Intake Total 1202.667 188 240 Output Total 650 1500 350 Balance 552.667 -1312 -110 Weight 99.79 kg 96.9 kg Intake: Intake, IV Titration 82.667 188 Amount Furosemide 100 mg In 82.667 188 Sodium Chloride 0.9% 90 ml @ 10 MG/HR 10 mls/hr IV .Q10H [facility] Rx#: [id number] Oral 1120 240 Output: Urine 650 1500 350 Other: Voiding Method Urinal Urinal # Voids 1 - Labs CBC & Chem 7: 09/02/21 15:15 09/05/21 08:11 Labs: Abnormal Lab Results - Last 24 Hours (Table) 09/04/21 09/04/21 09/04/21 Range/Units 10:10 16:56 19:46 Sodium 134 L (137-145) mmol/L Chloride (98-107) mmol/L BUN 79 H (9-20) mg/dL Creatinine 3.13 H (0.66-1.25) mg/dL Glucose 73 L (74-99) mg/dL POC Glucose (mg/dL) 139 H 166 H (75-99) mg/dL Calcium 7.9 L (8.4-10.2) mg/dL 09/05/21 09/05/21 Range/Units 06:00 08:11 Sodium 132 L (137-145) mmol/L Chloride 96 L (98-107) mmol/L BUN 81 H (9-20) mg/dL Creatinine 3.02 H (0.66-1.25) mg/dL Glucose 203 H (74-99) mg/dL POC Glucose (mg/dL) 231 H (75-99) mg/dL Calcium 7.6 L (8.4-10.2) mg/dL Microbiology - Last 24 Hours (Table) 09/02/21 17:00 Blood Culture - Preliminary Blood No Growth after 48 hours 09/02/21 16:45 Blood Culture - Preliminary Blood No Growth after 48 hours Assessment and Plan Plan: Assessment: 1. Chronic kidney disease stage IV with baseline creatinine in the range of 3-4 secondary to cardiorenal syndrome diabetic kidney disease. Creatinine fairly stable at 3.02 today. 2. Volume overload. Improving with diuresis. 3. Acute on chronic diastolic CHF with mild to moderate aortic regurgitation. 4. Hyperkalemia secondary to chronic kidney disease and hyperglycemia. 5. Hypertension with chronic kidney disease. Stable. Plan: Maintain Lasix drip - plan to transition to oral diuretics tomorrow. Maintain metolazone. 1200 mL fluid restriction. Continue to monitor renal function and urine output. Repeat labs in the morning. Hold amlodipine for systolic blood pressure less than 120.
[2021-09-05] MEDS: ACETAMINOPHEN TAB 325 MG TAB PO PRN ×2 (11:13→21:54)
[2021-09-05] MEDS: BACLOFEN 10 MG TAB PO PRN ×2 (11:13→21:54)
[2021-09-05] MEDS: MUPIROCIN 2% OINT 22 GM TUBE TOPICAL SCH (11:15)
--- NOTE | 2021-09-05 11:28 | CT ---
EXAMINATION TYPE: CT hip RT wo con DATE OF EXAM: 09/05/2021 COMPARISON: Right hip 09/04/2021 HISTORY: right hip pain status post falls CT DLP: 882.8 mGycm Automated exposure control for dose reduction was used. Contrast: None Technique: Axial images 3 mm thick sections. Reconstructed images in the coronal and sagittal planes. FINDINGS: Sacroiliac joints within the field of view appear with mild degenerative change. Symphysis pubis appe ars normal. Femoral head articulates with the acetabulum. Joint space is narrow. Correlate for osteoarthritic deg enerative change. No acute fracture is identified. Follow-up can be performed as clinically indicated . IMPRESSION: 1. NO ACUTE OSSEOUS ABNORMALITY RIGHT HIP. 2. CORRELATE FOR MILD OSTEOARTHRITIS RIGHT HIP.
[2021-09-05 11:45] LABS: Glucose,Whole Blood 250 mg/dL (75-99)
--- NOTE | 2021-09-05 11:50 | P.PN ---
Subjective Progress Note Date: 09/05/21 This is a 51-year-old male patient who came into the ED because of shortness of breath and emesis. The patient also was complaining of some mild chest discomfort which he stated that was of a chronic nature. He also noted to have increased lower extremity edema. He had fever or chills as well. The patient's temperature in the emergency department was 99.9. The patient was tachycardic with a heart rate of 109 and the BP was 1 6489 and EKG showed a normal sinus rhythm without any acute ischemic changes. The echo with of 19.6 with a hemoglobin of 10.7, the patient's BUN was 83 with a creatinine of 3.14 and the patient is level of 139 and a glucose of 228. Potassium level was at 5.9. The patient had troponin level of less than 0.01, LFTs are essentially showing an AST of 47, ALT of 28 with an PHOSPHATASE OF 1028 AND THE PATIENT HAD A PROBNP LEVEL OF 28,000. COVID 19 TESTING WAS NEGATIVE. The chest x-ray showed evidence of elevation of the diaphragms due to reduced respiratory effort and the patient had bilateral pulmonary infiltrates and small effusions consistent with pulmonary edema. Underlying pneumonia cannot be completely excluded. This patient is known to have multiple medical problems and comorbidities. The patient has chronic heart failure which is of a diastolic dysfunction. The patient has also previous history of autonomic dysfunction secondary to diabetes mellitus and chronic kidney disease stage IV and chronic bilateral lower extremity ulceration with various healing stages due to diabetic peripheral neuropathy. The patient also has been reported to have COPD and is been essentially noncompliant to medical treatment. During his last admission of 2020, the patient acute kidney injury and the patient was found to have previous azotemia related to CHF and the patient had volume overload and the patient was given a permacath dialysis catheter and he was started on hemodialysis MWF 3 times a week. According to the history, the patient was t aken Lasix 80 mg at home. He has not been dialyzed and his dialysis and he was offered back in March of 2021. Mother the patient also has previous history of endocarditis secondary to MRSA diagnosis established at [facility] the patient was treated accordingly. He also had MRSA soft tissue infection in the past requiring incision and drainage. 09/04/2021, the patient remains on IV Lasix. Exact amount of urine output is not clearly documented in the records. No significant shortness of breath. The patient is still on oxygen at 6 L per minute with a pulse ox of 91%. Afebrile. Hemodynamically stable. No worsening shortness of breath. Blood work from today shows a BUN of 79 with a creatinine of 3.1, potassium is at 4.8 with a sodium level of 134. The patient is receiving Lasix and this was switched from Lasix IV push daily Lasix drip at 10 mg an hour. He is on Levemir insulin 14 units along with a sliding scale coverage. 09/05/2021, the patient resting comfortably in bed on Lasix drip at 10 mg an hour. Doing well. Negative fluid balance. No C. diff and shortness of breath. Blood work was noted and the patient has a BUN of 81 with a creatinine 3.02, sodium is at 132. Oxygenation is improved. The patient is currently down to 40s about 2 by nasal cannula and the pulse ox is around 96%. No angina. No palpitation. Afebrile. Hemodynamically stable. Nephrology is on the case. Objective - Vital Signs Vital signs: Vital Signs Temp 98.6 F 09/05/21 10:57 Pulse 71 09/05/21 10:57 Resp 16 09/05/21 10:57 BP 138/78 09/05/21 10:57 Pulse Ox 96 09/05/21 10:57 Intake & Output 09/04/21 09/05/21 09/05/21 18:59 06:59 18:59 Intake Total 1202.667 188 240 Output Total 650 1500 350 Balance 552.667 -1312 -110 Weight 99.79 kg 96.9 kg Intake: Intake, IV Titration 82.667 188 Amount Furosemide 100 mg In 82.667 188 Sodium Chloride 0.9% 90 ml @ 10 MG/HR 10 mls/hr IV .Q10H [facility] Rx#: [id number] Oral 1120 240 Output: Urine 650 1500 350 Other: Voiding Method Urinal Urinal Urinal # Voids 1 - Exam GENERAL EXAM: Alert, pleasant, 51-year-old white male, on room air, the pulse ox 97%, no significant shortness of breath at this point in time. Patient is currently on 4 L of oxygen by nasal cannula. HEAD: Normocephalic/atraumatic. EYES: Normal reaction of pupils, equal size. Conjunctiva pink, sclera white. NOSE: Clear with pink turbinates. THROAT: No erythema or exudates. NECK: No masses, no JVD, no thyroid enlargement, no adenopathy. CHEST: No chest wall deformity. Symmetrical expansion. LUNGS: Equal air entry with no crackles, wheeze, rhonchi or dullness. Breath sounds are diminished in lung bases bilaterally along with some dullness to percussion CVS: Regular rate and rhythm, normal S1 and S2, no gallops, no murmurs, no rubs, there is a stage II systolic ejection murmur over the apex. ABDOMEN: Soft, nontender. No hepatosplenomegaly, normal bowel sounds, no guarding or rigidity. EXTREMITIES: No clubbing, no edema, no cyanosis, 2+ pulses and upper and lower extremities. MUSCULOSKELETAL: Muscle strength and tone normal. SPINE: No scoliosis or deformity SKIN: left flank cellulitis, 2 surg wounds, covered with dressings CENTRAL NERVOUS SYSTEM: Alert and oriented -3. No focal deficits, tone is normal in all 4 extremities. PSYCHIATRIC: Alert and oriented -3. Appropriate affect. Intact judgment and insight. - Labs CBC & Chem 7: 09/02/21 15:15 09/05/21 08:11 Labs: Abnormal Lab Results - Last 24 Hours (Table) 09/04/21 09/04/21 09/05/21 Range/Units 16:56 19:46 06:00 Sodium (137-145) mmol/L Chloride (98-107) mmol/L BUN (9-20) mg/dL Creatinine (0.66-1.25) mg/dL Glucose (74-99) mg/dL POC Glucose (mg/dL) 139 H 166 H 231 H (75-99) mg/dL Calcium (8.4-10.2) mg/dL 09/05/21 09/05/21 Range/Units 08:11 11:30 Sodium 132 L (137-145) mmol/L Chloride 96 L (98-107) mmol/L BUN 81 H (9-20) mg/dL Creatinine 3.02 H (0.66-1.25) mg/dL Glucose 203 H (74-99) mg/dL POC Glucose (mg/dL) 250 H (75-99) mg/dL Calcium 7.6 L (8.4-10.2) mg/dL Microbiology - Last 24 Hours (Table) 09/02/21 17:00 Blood Culture - Preliminary Blood No Growth after 48 hours 09/02/21 16:45 Blood Culture - Preliminary Blood No Growth after 48 hours Assessment and Plan Plan: 1 acute hypoxic respiratory failure secondary to fluid overload with possibly component of CHF. Patient is currently on oxygen at 4 L per minute nasal cannula to maintain a saturation above 90%. Pneumonia is doubtful at this point in time. Note that the patient has also recovered recently recovered from COVID 19 pneumonia. She was hospitalized. Some of the pulmonary infiltrates are seen on the chest x-ray could be residual from a COVID 19 infection. For now, the patient is responding to diuresis. The patient on Lasix drip at 10 mg an hour. 2 COVID 19 pneumonia with secondary respiratory failure hospitalized and [facility] for a few days and the patient was extubated successfully. 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 6 diabetes mellitus type 1, poorly controlled 7 diabetic peripheral neuropathy,diabetic retinopathy 8 congestion heart failure essentially diastolic dysfunction 9 hypertension 10 hyperlipidemia 11 multiple bilateral lower extremity ulceration with various healing stages and the diabetic peripheral neuropathy 12 COPD 13 medication noncompliance 14 acute leukocytosis 15 hyperkalemia with a potassium level of 5.9 Plan Continue Lasix drip at 10 mg an hour Oxygenation is improved and the patient is currently on 4 by nasal cannula. Monitor potassium level and the rest of the electrolytes Monitor volume status and the patient may need hemodialysis if no improvement in oxygenation and volume status Monitor fever pattern and the patient is currently afebrile and the patient is hemodynamically stable on 6 L by nasal cannula Repeat chest x-ray with next 24 hours Wean down the FiO2 further We'll continue to follow No need for any antibiotics at this point in time.
[2021-09-05 16:37] LABS: Glucose,Whole Blood 215 mg/dL (75-99)
--- NOTE | 2021-09-05 18:21 | P.PN ---
Progress Note - Text Progress Note Date: 09/05/21 Chief Complaint: Short of breath History of presenting complaint This is a very pleasant 51-year-old patient, chronic stable medical conditions include diabetes mellitus type 2, peripheral neuropathy, hyperlipidemia patient has chronic lower extremity leg wounds. Autonomic dysfunction from diabetes. Causing orthostatics. Patient now presents with episodes of falling down. He states that these happens intermittently. The current episode patient was satting in the kitchen reaching [facility] to get a copy and his legs and he felt weak and then he went down to the ground. no chest pain or palpitation. He does often get dizzy on standing up. No seizure activity. No focal weakness. Appetite is good. No fever no chills. Patient now presents for short of breath for 2 days. Some cough with green sputum. Also developed some vomiting. Also had some diarrhea. Decreased appetite. There had been some chills. Increasing lower extremity edema. Last bowel movement was yesterday. Last vomiting was yesterday the ER. Patient is accompanied by his girlfriend. Seen earlier by nephrology given IV Lasix. September 04: Breathing a bit better. Sitting at edge of the bed. Slight decrease in edema. Tolerating full liquid. Gets full easily. No diarrhea. No vomiting. Lasix drip. Making good urine. September 05: Breathing improving. Sitting at edge of the bed. Lasix drip. Eating close to 75%. Andres wrap lower extremity. Mother and girlfriend at the bedside. Complaint of hip pain last night. X-rays ordered. Consulted orthopedics. Review of systems: Was done for constitutional, cardiovascular, GI, pulmonary. relevant finding as above Active Medications Acetaminophen (Acetaminophen Tab 325 Mg Tab) 650 mg PO Q6HR PRN PRN Reason: Mild Pain or Fever > 100.5 Last Admin: 09/05/21 11:13 Dose: 650 mg Documented by: Albuterol/Ipratropium (Ipratropium-Albuterol 3 Ml Neb) 3 ml INHALATION RT-QID [facility] Last Admin: 09/05/21 15:49 Dose: Not Given Documented by: Amlodipine Besylate (Amlodipine 5 Mg Tab) 5 mg PO BID [facility] Last Admin: 09/05/21 07:26 Dose: 5 mg Documented by: Aspirin (Aspirin 81 Mg) 81 mg PO DAILY [facility] Last Admin: 09/05/21 07:25 Dose: 81 mg Documented by: Atorvastatin Calcium (Atorvastatin 40 Mg Tab) 40 mg PO DAILY [facility] Last Admin: 09/05/21 07:25 Dose: 40 mg Documented by: Baclofen (Baclofen 10 Mg Tab) 5 mg PO Q6H PRN PRN Reason: Muscle Spasm Last Admin: 09/05/21 11:13 Dose: 5 mg Documented by: Duloxetine HCl (Duloxetine Hcl 60 Mg Capsule.Dr) 60 mg PO DAILY [facility] Last Admin: 09/05/21 07:26 Dose: 60 mg Documented by: Gabapentin (Gabapentin 100 Mg Cap) 100 mg PO TID [facility] Last Admin: 09/05/21 14:02 Dose: 100 mg Documented by: Furosemide 100 mg/ Sodium (Chloride) 100 mls @ 10 mls/hr IV .Q10H [facility] Last Admin: 09/05/21 14:03 Dose: 10 mg/hr, 10 mls/hr Documented by: Insulin Aspart (Insulin Aspart (Novolog) 100 Unit/Ml Vial) 0 unit SQ ACHS [facility]; Protocol Last Admin: 09/05/21 14:02 Dose: 5 unit Documented by: Insulin Detemir (Insulin Detemir (Levemir) 100 Unit/Ml Syr) 8 unit SQ HS [facility] Last Admin: 09/04/21 20:27 Dose: Not Given Documented by: Isosorbide Mononitrate (Isosorbide Mononitrate Er 30 Mg Tab.Er.24h) 30 mg PO DAILY [facility] Last Admin: 09/05/21 07:24 Dose: 30 mg Documented by: Metolazone (Metolazone 5 Mg Tab) 5 mg PO DAILY [facility] Last Admin: 09/05/21 07:24 Dose: 5 mg Documented by: Metoprolol Tartrate (Metoprolol Tartrate 50 Mg Tab) 50 mg PO BID [facility] Last Admin: 09/05/21 07:25 Dose: 50 mg Documented by: Mupirocin (Mupirocin 2% Oint 22 Gm Tube) 1 applic TOPICAL DAILY [facility]; Protocol Last Admin: 09/05/21 11:15 Dose: 1 applic Documented by: Naloxone HCl (Naloxone 0.4 Mg/Ml 1 Ml Vial) 0.2 mg IV Q2M PRN PRN Reason: Opioid Reversal Ondansetron HCl (Ondansetron 4 Mg/2 Ml Vial) 4 mg IVP Q6HR PRN PRN Reason: Nausea And Vomiting Pantoprazole Sodium (Pantoprazole 40 Mg Tablet) 40 mg PO DAILY@0730 [facility] Last Admin: 09/05/21 06:13 Dose: 40 mg Documented by: Ropinirole HCl (Ropinirole Hcl 0.25 Mg Tab) 0.25 mg PO HS [facility] Last Admin: 09/04/21 19:58 Dose: 0.25 mg Documented by: Past medical history to include: Diabetes, hyperlipidemia, peripheral neuropathy, MRSA infection including abscess and cellulitis,, anxiety, diabetic autonomic dysfunction Social history: Patient lives with his 2 children. Previously did [employer]. Smoking 2 packs a day for 32 years. , Stopped less than a year ago. Alcohol occasionally. Physical examination: VITAL SIGNS: 98.6, 71, 16, 138/78, 96% on 4 L GENERAL: Sitting in the bed, awake, EYES: Pupils equal. Conjunctiva normal. HEENT: External appearance of nose and ears normal, oral cavity grossly normal. NECK: JVD not raised; masses not palpable. HEART: First and second heart sounds are normal; edema LUNGS: Respiratory rate increased, decreased breath sounds. ABDOMEN: Soft, distended nontender, liver spleen not palpable, no masses palpable. PSYCH: Alert and oriented x3; mood and affect anxious DERMATOLOGICAL: Wounds of the lower extremity. See nursing notes. INVESTIGATIONS, reviewed in the clinical context: September 05: Sodium 132 potassium 4.9 BUN 81 creatinine 3.02 Chest x-ray film personally reviewed by me-[September 05]: Pulmonary edema. Right hip x-ray film personally reviewed by me: Evidence of OA. September 04: Potassium 4.8 BUN 79 creatinine 3.13 White count 19.6 hemoglobin 10.7 platelets 313 potassium 5.9 BUN 83 creatinine 3.14 Chest x-ray film personally reviewed by me-pulmonary edema EKG tracing personally reviewed by me-normal sinus rhythm. Nonspecific T-wave changes. Pro-calcitonin 1.7 to Coronavirus [PCR]: Not detected Previous labs: March 2021: BUN 55 creatinine 4.136 Assessment and plan: --Acute on Chronic congestive heart failure from diastolic dysfunction EF 50- 55%: Slow to respond Continue Lasix drip at 10 mg an hour. Strict I's and O's. -Acute gastroenteritis, likely viral.: Improved Soft bland diet -Chronic autonomic dysfunction from diabetes- Fall precautions -Chronic stable angina with a prior history of positive nuclear stress test. Imdur ER 30 mg a day -Chronic lower extremity wounds. Continue wound care. Consult Dr. 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 Decrease Levemir to 18 units at night. 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 X-ray shows evidence of OA. Orthopedics consulted. CT right hip shows OA. Continue Lasix drip. Fluid restriction Discussed the patient. Increase Levemir to 14 units. Orthopedic evaluation. Follow labs
[2021-09-05] MEDS: INSULIN DETEMIR (LEVEMIR) 100 UNIT/ML SYR SQ SCH (21:49)
[2021-09-05 21:55] LABS: Glucose,Whole Blood 267 mg/dL (75-99)
[2021-09-06 05:56] LABS: Glucose,Whole Blood 181 mg/dL (75-99)
[2021-09-06] MEDS: PANTOPRAZOLE 40 MG TABLET PO SCH (06:20)
[2021-09-06] MEDS: INSULIN ASPART (NovoLOG) 100 UNIT/ML VIAL SQ SCH ×4 (06:20→21:55)
[2021-09-06] MEDS: FUROSEMIDE 100 MG in SODIUM CHLORIDE 0.9% 90 ML IV SCH (06:27)
[2021-09-06] MEDS: METOPROLOL TARTRATE 50 MG TAB PO SCH ×2 (08:53→21:55)
[2021-09-06] MEDS: ASPIRIN 81 MG PO SCH (08:53)
[2021-09-06] MEDS: ATORVASTATIN 40 MG TAB PO SCH (08:54)
[2021-09-06] MEDS: DULoxetine HCL 60 MG CAPSULE.DR PO SCH (08:54)
[2021-09-06] MEDS: ISOSORBIDE MONONITRATE ER 30 MG TAB.ER.24H PO SCH (08:54)
[2021-09-06] MEDS: GABAPENTIN 100 MG CAP PO SCH ×3 (08:54→21:55)
[2021-09-06] MEDS: amLODIPine 5 MG TAB PO SCH ×2 (08:54→21:55)
[2021-09-06] MEDS: metOLazone 5 MG TAB PO SCH (08:54)
[2021-09-06] MEDS: ACETAMINOPHEN TAB 325 MG TAB PO PRN ×2 (08:56→21:55)
[2021-09-06] MEDS: BACLOFEN 10 MG TAB PO PRN ×2 (08:56→21:54)
[2021-09-06] MEDS: MUPIROCIN 2% OINT 22 GM TUBE TOPICAL SCH (09:06)
[2021-09-06] MEDS: IPRATROPIUM-ALBUTEROL 3 ML NEB INHALATION SCH ×4 (09:37→20:08)
--- NOTE | 2021-09-06 09:37 | P.PN ---
Subjective Patient is seen in follow-up for chronic kidney disease. Patient has chronic kidney disease stage IV with creatinine in the range of 3-4. Renal function fairly stable. He is maintained on Lasix drip. Good urine output. Oral intake fair. Diarrhea resolved. Edema improving. No active complaints. Vital signs are stable. General: The patient appeared well nourished and normally developed. HEENT: Head exam is unremarkable. LUNGS: Breath sounds decreased. HEART: Rate and Rhythm are regular. ABDOMEN: Soft, no distention. EXTREMITITES: 1+ edema. Lower extremity is wrapped. Objective - Vital Signs Vital signs: Vital Signs Temp 98.0 F 09/06/21 08:51 Pulse 72 09/06/21 08:51 Resp 18 09/06/21 08:51 BP 125/68 09/06/21 08:51 Pulse Ox 93 L 09/06/21 08:51 Intake & Output 09/05/21 09/06/21 09/06/21 18:59 06:59 18:59 Intake Total 1035.333 460 200 Output Total 1200 650 Balance -164.667 -190 200 Weight 98.4 kg Intake: Intake, IV Titration 78.333 100 Amount Furosemide 100 mg In 78.333 100 Sodium Chloride 0.9% 90 ml @ 10 MG/HR 10 mls/hr IV .Q10H [facility] Rx#: [id number] Oral 957 360 200 Output: Urine 1200 650 Other: Voiding Method Urinal Urinal # Voids 1 1 # Bowel Movements 1 - Labs CBC & Chem 7: 09/02/21 15:15 09/05/21 08:11 Labs: Abnormal Lab Results - Last 24 Hours (Table) 09/05/21 09/05/21 09/05/21 Range/Units 11:30 16:36 21:34 POC Glucose (mg/dL) 250 H 215 H 267 H (75-99) mg/dL 09/06/21 Range/Units 05:28 POC Glucose (mg/dL) 181 H (75-99) mg/dL Microbiology - Last 24 Hours (Table) 09/02/21 17:00 Blood Culture - Preliminary Blood No Growth after 72 hours 09/02/21 16:45 Blood Culture - Preliminary Blood No Growth after 72 hours Assessment and Plan Plan: Assessment: 1. Chronic kidney disease stage IV with baseline creatinine in the range of 3-4 secondary to cardiorenal syndrome diabetic kidney disease. Creatinine fairly stable at 3.02 as of yesterday. 2. Volume overload. Improving with diuresis. 3. Acute on chronic diastolic CHF with mild to moderate aortic regurgitation. 4. Hyperkalemia secondary to chronic kidney disease and hyperglycemia. 5. Hypertension with chronic kidney disease. Stable. Plan: Stop Lasix drip. Add torsemide 40 mg once daily. 1200 mL fluid restriction. Continue to monitor renal function and urine output. Morning labs pending. Hold amlodipine for systolic blood pressure less than 120.
[2021-09-06 10:21] LABS: Calcium 7.5 mg/dL (8.4-10.2); Magnesium 2.1 mg/dL (1.6-2.3); Phosphorus 4.7 mg/dL (2.5-4.5); Potassium 4.6 mmol/L (3.5-5.1)
[2021-09-06] MEDS: TORSEMIDE 20 MG TAB PO SCH (10:53)
[2021-09-06 11:15] LABS: Glucose,Whole Blood 181 mg/dL (75-99)
--- NOTE | 2021-09-06 12:37 | P.PN ---
Subjective Progress Note Date: 09/06/21 This patient is a 51- year old male with a past medical history of diabetes, peripheral neuropathy, hyperlipidemia, hypertension, chronic lower extremity leg wounds, MRSA infection that is currently admitted for CHF. Orthopedics is consulted for evaluation of right hip pain. Patient is seen and examined bedside today. Per chart review, patient has experienced multiple falls. Although per patient, he has not had any falls. Patient states his hip pain began about a week ago. He continues to experience r ight hip pain with no improvements. He states he is unable to put weight on the hip due to pain. He states the pain is located diffusely about the hip and it does not radiate down his leg. CT scan of the right hip obtained yesterday shows no acute fracture. He has no additional complaints at this time. Vital signs stable. Objective - Vital Signs Vital signs: Vital Signs Temp 98.0 F 09/06/21 08:51 Pulse 72 09/06/21 08:51 Resp 18 09/06/21 08:51 BP 125/68 09/06/21 08:51 Pulse Ox 93 L 09/06/21 08:51 Intake & Output 09/05/21 09/06/21 09/06/21 18:59 06:59 18:59 Intake Total 1035.333 460 200 Output Total 1200 650 475 Balance -164.667 -190 -275 Weight 98.4 kg Intake: Intake, IV Titration 78.333 100 Amount Furosemide 100 mg In 78.333 100 Sodium Chloride 0.9% 90 ml @ 10 MG/HR 10 mls/hr IV .Q10H [facility] Rx#: [id number] Oral 957 360 200 Output: Urine 1200 650 475 Other: Voiding Method Urinal Urinal Urinal # Voids 1 1 # Bowel Movements 1 - Exam on examination, the patient is lying in bed in no apparent distress. He is alert and oriented 3. On inspection of the right hip, there are no lacerations, abrasions. No erythema, warmth. No fluctuance. Diffuse pain with palpation of the hip. Non-tender with palpation of the distal thigh, knee, lower leg, foot. Chronic appearing wounds to the bilateral lower legs. There is pain with passive [id number] of the hip. Motor and sensory function intact right lower extremity. Right lower extremity is warm and well perfused with brisk capillary refill. Calf is non-tender. - Labs CBC & Chem 7: 09/02/21 15:15 09/06/21 08:41 Labs: Abnormal Lab Results - Last 24 Hours (Table) 09/05/21 09/05/21 09/06/21 Range/Units 16:36 21:34 05:28 Sodium (137-145) mmol/L Chloride (98-107) mmol/L BUN (9-20) mg/dL Creatinine (0.66-1.25) mg/dL POC Glucose (mg/dL) 215 H 267 H 181 H (75-99) mg/dL Calcium (8.4-10.2) mg/dL Phosphorus (2.5-4.5) mg/dL 09/06/21 09/06/21 Range/Units 08:41 11:13 Sodium 132 L (137-145) mmol/L Chloride 97 L (98-107) mmol/L BUN 87 H (9-20) mg/dL Creatinine 3.03 H (0.66-1.25) mg/dL POC Glucose (mg/dL) 181 H (75-99) mg/dL Calcium 7.5 L (8.4-10.2) mg/dL Phosphorus 4.7 H (2.5-4.5) mg/dL Microbiology - Last 24 Hours (Table) 09/02/21 17:00 Blood Culture - Preliminary Blood No Growth after 72 hours 09/02/21 16:45 Blood Culture - Preliminary Blood No Growth after 72 hours - Imaging and Cardiology CT scan right hip 09/05/20: No acute fractures identified. Mild arthritic changes. Assessment and Plan Assessment: Right hip pain Plan: - Patient continues to experience right hip pain with no improvement. CT scan was negative for acute fracture. Recommend we obtain MRI of the right hip for further evaluation. - Pain management as needed. - Medical management, DVT prophylaxis per internal medicine team. - We will make further recommendations after MRI is obtained.
--- NOTE | 2021-09-06 15:05 | P.PN ---
Progress Note - Text Progress Note Date: 09/06/21 Chief Complaint: Short of breath History of presenting complaint This is a very pleasant 51-year-old patient, chronic stable medical conditions include diabetes mellitus type 2, peripheral neuropathy, hyperlipidemia patient has chronic lower extremity leg wounds. Autonomic dysfunction from diabetes. Causing orthostatics. Patient now presents with episodes of falling down. He states that these happens intermittently. The current episode patient was satting in the kitchen reaching [facility] to get a copy and his legs and he felt weak and then he went down to the ground. no chest pain or palpitation. He does often get dizzy on standing up. No seizure activity. No focal weakness. Appetite is good. No fever no chills. Patient now presents for short of breath for 2 days. Some cough with green sputum. Also developed some vomiting. Also had some diarrhea. Decreased appetite. There had been some chills. Increasing lower extremity edema. Last bowel movement was yesterday. Last vomiting was yesterday the ER. Patient is accompanied by his girlfriend. Seen earlier by nephrology given IV Lasix. September 04: Breathing a bit better. Sitting at edge of the bed. Slight decrease in edema. Tolerating full liquid. Gets full easily. No diarrhea. No vomiting. Lasix drip. Making good urine. September 05: Breathing improving. Sitting at edge of the bed. Lasix drip. Eating close to 75%. Andres wrap lower extremity. Mother and girlfriend at the bedside. Complaint of hip pain last night. X-rays ordered. Consulted orthopedics. September 06: Breathing better. Taken off Lasix drip. Started on torsemide 40 mg. Oral intake fair. Review of systems: Was done for constitutional, cardiovascular, GI, pulmonary. relevant finding as above Active Medications Acetaminophen (Acetaminophen Tab 325 Mg Tab) 650 mg PO Q6HR PRN PRN Reason: Mild Pain or Fever > 100.5 Last Admin: 09/06/21 08:56 Dose: 650 mg Documented by: Albuterol/Ipratropium (Ipratropium-Albuterol 3 Ml Neb) 3 ml INHALATION RT-QID [facility] Last Admin: 09/06/21 12:36 Dose: Not Given Documented by: Amlodipine Besylate (Amlodipine 5 Mg Tab) 5 mg PO BID [facility] Last Admin: 09/06/21 08:54 Dose: 5 mg Documented by: Aspirin (Aspirin 81 Mg) 81 mg PO DAILY [facility] Last Admin: 09/06/21 08:53 Dose: 81 mg Documented by: Atorvastatin Calcium (Atorvastatin 40 Mg Tab) 40 mg PO DAILY [facility] Last Admin: 09/06/21 08:54 Dose: 40 mg Documented by: Baclofen (Baclofen 10 Mg Tab) 5 mg PO Q6H PRN PRN Reason: Muscle Spasm Last Admin: 09/06/21 08:56 Dose: 5 mg Documented by: Duloxetine HCl (Duloxetine Hcl 60 Mg Capsule.Dr) 60 mg PO DAILY [facility] Last Admin: 09/06/21 08:54 Dose: 60 mg Documented by: Gabapentin (Gabapentin 100 Mg Cap) 100 mg PO TID [facility] Last Admin: 09/06/21 08:54 Dose: 100 mg Documented by: Insulin Aspart (Insulin Aspart (Novolog) 100 Unit/Ml Vial) 0 unit SQ [facility]; Protocol Last Admin: 09/06/21 12:42 Dose: 100 unit Documented by: Insulin Detemir (Insulin Detemir (Levemir) 100 Unit/Ml Syr) 14 unit SQ [facility] Last Admin: 09/05/21 21:49 Dose: 14 unit Documented by: Isosorbide Mononitrate (Isosorbide Mononitrate Er 30 Mg Tab.Er.24h) 30 mg PO DAILY [facility] Last Admin: 09/06/21 08:54 Dose: 30 mg Documented by: Metoprolol Tartrate (Metoprolol Tartrate 50 Mg Tab) 50 mg PO BID [facility] Last Admin: 09/06/21 08:53 Dose: 50 mg Documented by: Mupirocin (Mupirocin 2% Oint 22 Gm Tube) 1 applic TOPICAL DAILY [facility]; Protocol Last Admin: 09/06/21 09:06 Dose: 1 applic Documented by: Naloxone HCl (Naloxone 0.4 Mg/Ml 1 Ml Vial) 0.2 mg IV Q2M PRN PRN Reason: Opioid Reversal Ondansetron HCl (Ondansetron 4 Mg/2 Ml Vial) 4 mg IVP Q6HR PRN PRN Reason: Nausea And Vomiting Pantoprazole Sodium (Pantoprazole 40 Mg Tablet) 40 mg PO DAILY@0730 [facility] Last Admin: 09/06/21 06:20 Dose: 40 mg Documented by: Ropinirole HCl (Ropinirole Hcl 0.25 Mg Tab) 0.25 mg PO [facility] Last Admin: 09/05/21 21:55 Dose: 0.25 mg Documented by: Torsemide (Torsemide 20 Mg Tab) 40 mg PO DAILY [facility] Last Admin: 09/06/21 10:53 Dose: 40 mg Documented by: Past medical history to include: Diabetes, hyperlipidemia, peripheral neuropathy, MRSA infection including abscess and cellulitis,, anxiety, diabetic autonomic dysfunction Social history: Patient lives with his 2 children. 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 Smoking 2 packs a day for 32 years. , Stopped less than a year ago. Alcohol occasionally. Physical examination: VITAL SIGNS: 98, 72, 18, 125/68, 93% on 3 L GENERAL: Reclining in bed, awake, more comfortable EYES: Pupils equal. Conjunctiva normal. HEENT: External appearance of nose and ears normal, oral cavity grossly normal. NECK: JVD not raised; masses not palpable. HEART: First and second heart sounds are normal; decrease edema LUNGS: Respiratory rate increased, decreased breath sounds. ABDOMEN: Soft, nontender, liver spleen not palpable, no masses palpable. PSYCH: Alert and oriented x3; mood and affect anxious DERMATOLOGICAL: Wounds of the lower extremity. See nursing notes. INVESTIGATIONS, reviewed in the clinical context: September 06: Sodium 132 potassium 4.6 BUN 87 creatinine 3.03 September 05: Sodium 132 potassium 4.9 BUN 81 creatinine 3.02 Chest x-ray film personally reviewed by me-[September 05]: Pulmonary edema. Right hip x-ray film personally reviewed by me: Evidence of OA. September 04: Potassium 4.8 BUN 79 creatinine 3.13 White count 19.6 hemoglobin 10.7 platelets 313 potassium 5.9 BUN 83 creatinine 3.14 Chest x-ray film personally reviewed by me-pulmonary edema EKG tracing personally reviewed by me-normal sinus rhythm. Nonspecific T-wave changes. Pro-calcitonin 1.7 to Coronavirus [PCR]: Not detected Previous labs: March 2021: BUN 55 creatinine 4.136 Assessment and plan: --Acute on Chronic congestive heart failure from diastolic dysfunction EF 50- 55%: Better Received Lasix drip at 10 mg an hour-discontinued. Started on Demadex 40 mg -Acute gastroenteritis, likely viral.: Improved Soft bland diet -Chronic autonomic dysfunction from diabetes- Fall precautions -Chronic stable angina with a prior history of positive nuclear stress test. Imdur ER 30 mg a day -Chronic lower extremity wounds. Continue wound care. Consult Dr. 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 Decrease Levemir to 18 units at night. 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 X-ray shows evidence of OA. Orthopedics/Dr. Orona consulted. CT right hip shows OA. Lasix drip discontinued. Demadex 40 mg. Continue other medications. MRI of the right hip ordered by orthopedics.
[2021-09-06 16:28] LABS: Glucose,Whole Blood 184 mg/dL (75-99)
--- NOTE | 2021-09-06 17:04 | P.PN ---
Subjective Progress Note Date: 09/06/21 Principal diagnosis: Shortness of breath. 09/04/2021, the patient remains on IV Lasix. Exact amount of urine output is not clearly documented in the records. No significant shortness of breath. The patient is still on oxygen at 6 L per minute with a pulse ox of 91%. Afebrile. Hemodynamically stable. No worsening shortness of breath. Blood work from today shows a BUN of 79 with a creatinine of 3.1, potassium is at 4.8 with a sodium level of 134. The patient is receiving Lasix and this was switched from Lasix IV push daily Lasix drip at 10 mg an hour. He is on Levemir insulin 14 units along with a sliding scale coverage. 09/05/2021, the patient resting comfortably in bed on Lasix drip at 10 mg an hour. Doing well. Negative fluid balance. No C. diff and shortness of breath. Blood work was noted and the patient has a BUN of 81 with a creatinine 3.02, sodium is at 132. Oxygenation is improved. The patient is currently down to 40s about 2 by nasal cannula and the pulse ox is around 96%. No angina. No palpitation. Afebrile. Hemodynamically stable. Nephrology is on the case. Progress note dated 09/06/2021. The patient is again seen in room 353. The patient's not receiving any IV fluids. The patient is on 3 L nasal cannula. The patient does have some lower extremity edema. Overall, the patient's doing much better. Lab data includes a sodium 132, potassium 4.6, chlorides 97, CO2 26, anion gap 9, BUN 87, and creatinine 3.03. Magnesium is 2.1. Chest x-ray from September 05 reveals mild scattered infiltrates, greatest in the left midlung, which are improved. Objective - Vital Signs Vital signs: Vital Signs Temp 98.0 F 09/06/21 08:51 Pulse 67 09/06/21 12:37 Resp 18 09/06/21 12:37 BP 111/67 09/06/21 12:37 Pulse Ox 93 L 09/06/21 12:37 Intake & Output 09/05/21 09/06/21 09/06/21 18:59 06:59 18:59 Intake Total 1035.564 780 2997 Output Total 1200 650 475 Balance -164.667 -190 625 Weight 98.4 kg Intake: Intake, IV Titration 78.333 100 Amount Furosemide 100 mg In 78.333 100 Sodium Chloride 0.9% 90 ml @ 10 MG/HR 10 mls/hr IV .Q10H LUIZA Rx#: [id number] Oral 332 861 0855 Output: Urine 1200 650 475 Other: Voiding Method Urinal Urinal Urinal # Voids 1 1 # Bowel Movements 1 - Exam No acute distress, oriented 3. No clearcut respiratory distress, or conversational dyspnea. The patient's currently on 3 L. HEENT examination is grossly unremarkable. Mucous membranes are moist. No oral lesions. Neck supple. Full range of motion. No adenopathy thyromegaly or neck vein distention. Cardiovascular examination reveals regular rhythm rate. S1-S2 normal. No S3 or S4. No discernible murmur noted. Heart rate 67 bpm. Lungs reveal mild scattered bilateral rhonchi and a few scattered basilar crackles. Breath sounds equal bilaterally. No wheezes. 3 L saturation is 93%. Abdomen soft bowel sounds are heard. No masses or tenderness. Extremities are intact. No cyanosis clubbing or edema. Skin is without rash or lesion. Neurologic examination is brief but nonfocal. - Labs CBC & Chem 7: 09/02/21 15:15 09/06/21 08:41 Labs: Abnormal Lab Results - Last 24 Hours (Table) 09/05/21 09/06/21 09/06/21 Range/Units 21:34 05:28 08:41 Sodium 132 L (137-145) mmol/L Chloride 97 L (98-107) mmol/L BUN 87 H (9-20) mg/dL Creatinine 3.03 H (0.66-1.25) mg/dL POC Glucose (mg/dL) 267 H 181 H (75-99) mg/dL Calcium 7.5 L (8.4-10.2) mg/dL Phosphorus 4.7 H (2.5-4.5) mg/dL 09/06/21 09/06/21 Range/Units 11:13 16:27 Sodium (137-145) mmol/L Chloride (98-107) mmol/L BUN (9-20) mg/dL Creatinine (0.66-1.25) mg/dL POC Glucose (mg/dL) 181 H 184 H (75-99) mg/dL Calcium (8.4-10.2) mg/dL Phosphorus (2.5-4.5) mg/dL Microbiology - Last 24 Hours (Table) 09/02/21 17:00 Blood Culture - Preliminary Blood No Growth after 72 hours 09/02/21 16:45 Blood Culture - Preliminary Blood No Growth after 72 hours Assessment and Plan Assessment: Acute hypoxemic respiratory failure, secondary to diastolic CHF. Recent episode of coronavirus associated pneumonia, hospitalized at [facility]. Stage IV chronic kidney disease. History of aortic valve endocarditis. History of recurrent methicillin-resistant staph aureus infection. Diabetes mellitus. Diabetic neuropathy. Diabetic retinopathy. Hypertension. Hyperlipidemia. COPD. Medication noncompliance. Mild hyperkalemia. Plan: Plan dated 09/06/2021. The patient has been weaned down to 3 L. The patient's Lasix drip has been discontinued. The patient is not receiving any IV fluids. There are basilar crackles on examination, and some lower extremity edema. We will continue to follow. X-rays, labs, and medications are reviewed. Additional recommendations and suggestions are forthcoming. We will continue to follow make recommendations where appropriate. Prognosis is guarded. Time with Patient: Less than 30
--- NOTE | 2021-09-06 18:51 | MR ---
EXAMINATION TYPE: MR hip RT wo con DATE OF EXAM: 09/06/2021 COMPARISON: None HISTORY: Right hip pain Multiplanar multiecho imaging of the pelvis was performed without contrast. Exam limited due to patie nt motion and incomplete sequences. There are STIR and T1 coronal images. There are T1 and T2 axial i mages. On the T1 images there is normal symmetric signal pattern in the proximal femurs. Acetabula appear in tact. There is no evidence of a fracture. STIR images fail to show evidence of any significant bone e lennox. There is no sign of a pelvic mass. IMPRESSION: Within the limitations of the exam there is no significant abnormality of the right hip joint. No fra cture seen. No evidence of avascular necrosis.
[2021-09-06 19:46] LABS: Glucose,Whole Blood 214 mg/dL (75-99)
[2021-09-06] MEDS: INSULIN DETEMIR (LEVEMIR) 100 UNIT/ML SYR SQ SCH (21:55)
[2021-09-07 00:21] LABS: Glucose,Whole Blood 214 mg/dL (75-99)
[2021-09-07 06:11] LABS: Glucose,Whole Blood 289 mg/dL (75-99)
[2021-09-07] MEDS: INSULIN ASPART (NovoLOG) 100 UNIT/ML VIAL SQ SCH ×4 (06:46→21:37)
[2021-09-07] MEDS: PANTOPRAZOLE 40 MG TABLET PO SCH (06:46)
[2021-09-07] MEDS: IPRATROPIUM-ALBUTEROL 3 ML NEB INHALATION SCH ×4 (07:04→20:35)
[2021-09-07 08:14] LABS: Calcium 7.5 mg/dL (8.4-10.2); Magnesium 2.1 mg/dL (1.6-2.3); Potassium 4.3 mmol/L (3.5-5.1)
--- NOTE | 2021-09-07 08:15 | P.CONS ---
History of Present Illness - Reason for Consult Consult date: 09/06/21 lower extremity wounds Requesting physician: Armando Pablo - Chief Complaint shortness of breath x days - History of Present Illness History of present illness : Patient is a 51-year-old male with a past medical history significant for bilateral lower extremity wound infection secondary to MRSA for the patient been previously treated with IV and oral antibiotic therapy patient presenting to the hospital on 09/02/2021 for evaluation of shortness of breath and vomiting patient also complaining of some mild chest discomfort and lower extremity swelling patient on presentation to the hospital did have low-grade fever of 99.9 patient fever has subsequently res olved patient did have white count of 19.6 on admission and has not been checked since then noticed to have elevated BUN and creatinine and is being monitored by nephrology services patient also have a chest x-ray on admission to hospital correlate for pulmonary edema versus diffuse bilateral pneumonia patient did have a x-ray of the right hip with evidence of any fracture subsequently he did have a CT completed yesterday no acute abnormality correlate for mild prostatitis of the right hip, infectious he was consulted last evening for evaluation of lower extremity wounds patient did have a diffuse swelling to the lower extremity and did have some superficial ulceration which is currently cru sting out patient did have mild dull aching pain to the 8 of 10 and no radiation and there is no drainage Review of system: CONSTITUTIONAL: Positive for weakness denies high-grade fever. EYES: No complaint. ENT: No complaint. RESPIRATORY: As per history of present illness. CARDIOVASCULAR: No complaint. GENITOURINARY: No complaint. GASTROINTESTINAL: No complaint. MUSCULOSKELETAL: As per history of present illness. INTEGUMENTARY: As per history of present illness. PSYCHOLOGIC: No complaint. ENDOCRINE: No complaint. NEUROLOGIC: No complaint. Past medical history : Reviewed, documented below Past surgical history : Reviewed, documented below Social history: Reviewed, documented below Medications: Reviewed, as documented below EXAMINATION: Vital sigans= Reviewed and documented below GENERAL DESCRIPTION: Middle-aged male lying in bed, no distress. No tachypnea or accessory muscle of respiration use. HEENT: Shows Pallor , no scleral icterus. Oral mucous membrane is dry. NECK: Trachea central, no thyromegaly. LUNGS: Unlabored breathing. Decreased breath sound at the base. No wheeze or crackle. HEART: S1, S2, regular rate and rhythm. ABDOMEN: Soft, no tenderness , guarding or rigidity EXTREMITIES: Diffuse swelling of the lower extremity with some superficial ulceration no redness on foul-smelling drainage. SKIN: No rash, no masses palpable. NEUROLOGICAL: The patient is awake, alert, oriented x3, mood and affect normal. LABS AND RADIOLOGY: Reviewed results see below Assessment : Patient with bilateral lower extremity wounds which are mostly superficial and has been drying out with no slough tissue no surrounding redness and did have diffuse swelling of the lower extremity clinically not behaving as infected wound no cellulitis Plan: 1-dry protective dressing to the area and Andres wrap to keep the swelling down 2-no need for systemic antibiotic therapy We will follow on clinical condition and cultures to further adjust medication if needed Thank you for this consultation we will follow the patient along with you Past Medical History Past Medical History: Heart Failure, Diabetes Mellitus, Hyperlipidemia, Hyperte nsion, Renal Disease Additional Past Medical History / Comment(s): COVID (vented) IDDM type II, neuropathy bilateral feet, gout, bilateral eye catarct removal, MRSA . History of Any Multi-Drug Resistant Organisms: MRSA Year Discovered:: 12/17/20 MDRO Source:: Right Leg Past Surgical History: Cholecystectomy Additional Past Surgical History / Comment(s): I&D scrotal abscess, I&D back abscess Past Anesthesia/Blood Transfusion Reactions: No Reported Reaction Smoking Status: Former smoker - Past Family History Mother Family Medical History: Diabetes Mellitus Father History Unknown: Yes Medications and Allergies Home Medications Medication Instructions Recorded Confirmed Type DULoxetine HCL [Cymbalta] 60 mg PO DAILY 04/01/20 09/02/21 History Acetaminophen Tab [Tylenol] 650 mg PO Q4H PRN 07/25/20 09/02/21 History Atorvastatin [Lipitor] 40 mg PO DAILY #30 tab 10/13/20 09/02/21 Rx Metoprolol Tartrate [Lopressor] 50 mg PO BID 30 Days #60 tab 01/14/21 09/02/21 Rx Aspirin 81 mg PO DAILY #30 chewable 01/18/21 09/02/21 Rx Isosorbide Mononitrate ER [Imdur] 30 mg PO DAILY #30 tab.er.24h 02/11/21 09/02/21 Rx Furosemide [Lasix] 80 mg PO BID@0900,1600 #60 tab 03/17/21 09/02/21 Rx Gabapentin [Neurontin] 100 mg PO TID #12 cap 03/17/21 09/02/21 Rx Insulin Aspart Protam & Aspart See Protocol SQ ACHS 09/02/21 09/02/21 History [NovoLOG MIX 70-30 Flexpen] Omeprazole [PriLOSEC] 40 mg PO DAILY 09/02/21 09/02/21 History Ozempic 4mg/3ml 4 mg SQ TU 09/02/21 09/02/21 History amLODIPine [Norvasc] 5 mg PO BID 09/02/21 09/02/21 History rOPINIRole HCL [Requip] 0.25 mg PO HS 09/02/21 09/02/21 History Mupirocin 2% Oint [Bactroban 2% 1 applic TOPICAL TID 09/04/21 09/04/21 History Oint] Allergies Allergy/AdvReac Type Severity Reaction Status Date / Time No Known Allergies Allergy Verified 09/02/21 18:32 Physical Exam Vitals: Vital Signs Temp Pulse Resp BP Pulse Ox 09/06/21 08:51 98.0 F 72 18 125/68 93 L 09/06/21 04:00 98.2 F 71 16 140/84 97 09/06/21 00:00 70 16 129/81 95 09/05/21 20:00 78 144/73 09/05/21 18:59 98.0 F 71 18 110/64 93 L 09/05/21 18:51 74 18 09/05/21 16:00 97.3 F L 74 18 109/62 90 L 09/05/21 14:00 71 16 Intake and Output 09/05/21 09/06/21 09/06/21 22:59 06:59 14:59 Intake Total 480 460 200 Output Total 1250 250 225 Balance -770 210 -25 Intake: Intake, IV Titration 100 Amount Furosemide 100 mg In 100 Sodium Chloride 0.9% 90 ml @ 10 MG/HR 10 mls/hr IV .Q10H LUIZA Rx#: [id number] Oral 480 360 200 Output: Urine 1250 250 225 Other: Voiding Method Urinal Urinal Urinal # Voids 1 1 # Bowel Movements 1 Weight 98.4 kg Results CBC & Chem 7: 09/02/21 15:15 09/07/21 06:50 Labs: Abnormal Lab Results - Last 24 Hours (Table) 09/05/21 09/05/21 09/05/21 Range/Units 11:30 16:36 21:34 Sodium (137-145) mmol/L Chloride (98-107) mmol/L BUN (9-20) mg/dL Creatinine (0.66-1.25) mg/dL POC Glucose (mg/dL) 250 H 215 H 267 H (75-99) mg/dL Calcium (8.4-10.2) mg/dL Phosphorus (2.5-4.5) mg/dL 09/06/21 09/06/21 09/06/21 Range/Units 05:28 08:41 11:13 Sodium 132 L (137-145) mmol/L Chloride 97 L (98-107) mmol/L BUN 87 H (9-20) mg/dL Creatinine 3.03 H (0.66-1.25) mg/dL POC Glucose (mg/dL) 181 H 181 H (75-99) mg/dL Calcium 7.5 L (8.4-10.2) mg/dL Phosphorus 4.7 H (2.5-4.5) mg/dL Microbiology - Last 24 Hours (Table) 09/02/21 17:00 Blood Culture - Preliminary Blood No Growth after 72 hours 09/02/21 16:45 Blood Culture - Preliminary Blood No Growth after 72 hours
[2021-09-07] MEDS: amLODIPine 5 MG TAB PO SCH ×2 (08:40→21:36)
[2021-09-07] MEDS: ISOSORBIDE MONONITRATE ER 30 MG TAB.ER.24H PO SCH (08:40)
[2021-09-07] MEDS: ASPIRIN 81 MG PO SCH (08:40)
[2021-09-07] MEDS: DULoxetine HCL 60 MG CAPSULE.DR PO SCH (08:40)
[2021-09-07] MEDS: ATORVASTATIN 40 MG TAB PO SCH (08:40)
[2021-09-07] MEDS: METOPROLOL TARTRATE 50 MG TAB PO SCH ×2 (08:40→21:38)
[2021-09-07] MEDS: GABAPENTIN 100 MG CAP PO SCH ×3 (08:41→21:36)
[2021-09-07] MEDS: MUPIROCIN 2% OINT 22 GM TUBE TOPICAL SCH (08:41)
[2021-09-07] MEDS: TORSEMIDE 20 MG TAB PO SCH (08:41)
--- NOTE | 2021-09-07 09:35 | P.PN ---
Subjective Patient is seen in follow-up for chronic kidney disease. Patient has chronic kidney disease stage IV with creatinine in the range of 3-4. Renal function stable. He is maintained on oral torsemide. Good urine output. Oral intake fair. Diarrhea resolved. Edema improving. No active complaints. Vital signs are stable. General: The patient appeared well nourished and normally developed. HEENT: Head exam is unremarkable. LUNGS: Breath sounds decreased. HEART: Rate and Rhythm are regular. ABDOMEN: Soft, no distention. EXTREMITITES: 1+ edema. Lower extremity is wrapped. Objective - Vital Signs Vital signs: Vital Signs Temp 97.8 F 09/07/21 07:48 Pulse 71 09/07/21 07:48 Resp 18 09/07/21 07:49 BP 126/66 09/07/21 07:48 Pulse Ox 99 09/07/21 07:48 Intake & Output 09/06/21 09/07/21 09/07/21 18:59 06:59 18:59 Intake Total 1218 310 480 Output Total 475 900 Balance 743 -590 480 Intake: IV 10 Invasive Line 4 10 Oral 1218 300 480 Output: Urine 475 900 Other: Voiding Method Urinal Urinal - Labs CBC & Chem 7: 09/02/21 15:15 09/07/21 06:50 Labs: Abnormal Lab Results - Last 24 Hours (Table) 09/06/21 09/06/21 09/06/21 Range/Units 08:41 11:13 16:27 Sodium 132 L (137-145) mmol/L Chloride 97 L (98-107) mmol/L BUN 87 H (9-20) mg/dL Creatinine 3.03 H (0.66-1.25) mg/dL Glucose (74-99) mg/dL POC Glucose (mg/dL) 181 H 184 H (75-99) mg/dL Calcium 7.5 L (8.4-10.2) mg/dL Phosphorus 4.7 H (2.5-4.5) mg/dL 09/06/21 09/07/21 09/07/21 Range/Units 19:45 00:18 06:10 Sodium (137-145) mmol/L Chloride (98-107) mmol/L BUN (9-20) mg/dL Creatinine (0.66-1.25) mg/dL Glucose (74-99) mg/dL POC Glucose (mg/dL) 214 H 214 H 289 H (75-99) mg/dL Calcium (8.4-10.2) mg/dL Phosphorus (2.5-4.5) mg/dL 09/07/21 Range/Units 06:50 Sodium 132 L (137-145) mmol/L Chloride (98-107) mmol/L BUN 95 H (9-20) mg/dL Creatinine 2.99 H (0.66-1.25) mg/dL Glucose 114 H (74-99) mg/dL POC Glucose (mg/dL) (75-99) mg/dL Calcium 7.5 L (8.4-10.2) mg/dL Phosphorus (2.5-4.5) mg/dL Microbiology - Last 24 Hours (Table) 09/02/21 17:00 Blood Culture - Preliminary Blood No Growth after 96 hours 09/02/21 16:45 Blood Culture - Preliminary Blood No Growth after 96 hours Assessment and Plan Plan: Assessment: 1. Chronic kidney disease stage IV with baseline creatinine in the range of 3-4 secondary to cardiorenal syndrome diabetic kidney disease. Renal function stable. 2. Volume overload. Improving with diuresis. 3. Acute on chronic diastolic CHF with mild to moderate aortic regurgitation. 4. Hyperkalemia secondary to chronic kidney disease and hyperglycemia. 5. Hypertension with chronic kidney disease. Stable. 6. Hyponatremia secondary to chronic disease. Hypervolemic. Also component of hyperglycemia. Plan: Maintain torsemide 40 mg once daily. 1200 mL fluid restriction. Continue to monitor renal function and urine output. Hold amlodipine for systolic blood pressure less than 120.
[2021-09-07 11:59] LABS: Glucose,Whole Blood 103 mg/dL (75-99)
--- NOTE | 2021-09-07 13:47 | P.PN ---
Subjective Progress Note Date: 09/07/21 This patient is a 51- year old male with a past medical history of diabetes, peripheral neuropathy, hyperlipidemia, hypertension, chronic lower extremity leg wounds, MRSA infection that is currently admitted for CHF. Orthopedics is consulted for evaluation of right hip pain. CT scan of the right hip obtained 09/05/21 showed no evidence of fracture. MRI of the right hip was performed 09/05/21 showed no fracture, effusion, no abnormality. Patient is seen and examined bedside. He states he continues to experience right hip pain. When asked where the pain is, he points to the anterior and lateral hip. He denies additional complaints at this time. Objective - Vital Signs Vital signs: Vital Signs Temp 97.8 F 09/07/21 07:48 Pulse 71 09/07/21 07:48 Resp 18 09/07/21 07:49 BP 126/66 09/07/21 07:48 Pulse Ox 99 09/07/21 07:48 Intake & Output 09/06/21 09/07/21 09/07/21 18:59 06:59 18:59 Intake Total 1218 310 480 Output Total 475 900 Balance 743 -590 480 Intake: IV 10 Invasive Line 4 10 Oral 1218 300 480 Output: Urine 475 900 Other: Voiding Method Urinal Urinal - Exam on examination, the patient is lying in bed in no apparent distress. He is alert and oriented 3. On inspection of the right hip, there are no laceration s, abrasions. No erythema, warmth. No fluctuance. Diffuse pain with palpation of the hip. Non-tender with palpation of the distal thigh, knee, lower leg, foot. Chronic appearing wounds to the bilateral lower legs. There is pain with passive [id number] of the hip. Motor and sensory function intact right lower extremity. Right lower extremity is warm and well perfused with brisk capillary refill. Calf is non-tender. No pain on palpation of the lumbar spine. - Labs CBC & Chem 7: 09/02/21 15:15 09/07/21 06:50 Labs: Abnormal Lab Results - Last 24 Hours (Table) 09/06/21 09/06/21 09/07/21 Range/Units 16:27 19:45 00:18 Sodium (137-145) mmol/L BUN (9-20) mg/dL Creatinine (0.66-1.25) mg/dL Glucose (74-99) mg/dL POC Glucose (mg/dL) 184 H 214 H 214 H (75-99) mg/dL Calcium (8.4-10.2) mg/dL 09/07/21 09/07/21 09/07/21 Range/Units 06:10 06:50 11:44 Sodium 132 L (137-145) mmol/L BUN 95 H (9-20) mg/dL Creatinine 2.99 H (0.66-1.25) mg/dL Glucose 114 H (74-99) mg/dL POC Glucose (mg/dL) 289 H 103 H (75-99) mg/dL Calcium 7.5 L (8.4-10.2) mg/dL Microbiology - Last 24 Hours (Table) 09/02/21 17:00 Blood Culture - Preliminary Blood No Growth after 96 hours 09/02/21 16:45 Blood Culture - Preliminary Blood No Growth after 96 hours - Imaging and Cardiology Right hip CT scan 09/05/20: No acute fractures. Right hip MRI 09/07/20: No abnormality of the hip joint. No fracture. Assessment and Plan Assessment: Right hip pain Plan: - MRI and CT scan of the right hip show no evidence of fracture and no evidence of abnormality. Recommend observation of the patient's right hip pain at this time. - Recommend evaluation by physical therapy. - Recommend symptomatic treatment to include pain medication, ice/heating pads. - We will follow patient while he remains inpatient and make recommendations as needed.
--- NOTE | 2021-09-07 13:49 | P.PN ---
Subjective Progress Note Date: 09/07/21 Principal diagnosis: Shortness of breath. 09/04/2021, the patient remains on IV Lasix. Exact amount of urine output is not clearly documented in the records. No significant shortness of breath. The patient is still on oxygen at 6 L per minute with a pulse ox of 91%. Afebrile. Hemodynamically stable. No worsening shortness of breath. Blood work from today shows a BUN of 79 with a creatinine of 3.1, potassium is at 4.8 with a sodium level of 134. The patient is receiving Lasix and this was switched from Lasix IV push daily Lasix drip at 10 mg an hour. He is on Levemir insulin 14 units along with a sliding scale coverage. 09/05/2021, the patient resting comfortably in bed on Lasix drip at 10 mg an hour. Doing well. Negative fluid balance. No C. diff and shortness of breath. Blood work was noted and the patient has a BUN of 81 with a creatinine 3.02, sodium is at 132. Oxygenation is improved. The patient is currently down to 40s about 2 by nasal cannula and the pulse ox is around 96%. No angina. No palpitation. Afebrile. Hemodynamically stable. Nephrology is on the case. Progress note dated 09/06/2021. The patient is again seen in room 353. The patient's not receiving any IV fluids. The patient is on 3 L nasal cannula. The patient does have some lower extremity edema. Overall, the patient's doing much better. Lab data includes a sodium 132, potassium 4.6, chlorides 97, CO2 26, anion gap 9, BUN 87, and creatinine 3.03. Magnesium is 2.1. Chest x-ray from September 05 reveals mild scattered infiltrates, greatest in the left midlung, which are improved. Progress note dated 09/07/2021. The patient is again seen in room 353. He's currently on 3 L nasal cannula. He's not receiving IV fluids. Initially when I came to the room, he was laying on his left side, completely flat in bed, without any respiratory distress or difficulty. Sodium 132, potassium 4.3, chlorides 98, CO2 27, anion gap 7, BUN 95, and creatinine 2.99. Objective - Vital Signs Vital signs: Vital Signs Temp 97.8 F 09/07/21 07:48 Pulse 71 09/07/21 07:48 Resp 18 09/07/21 07:49 BP 126/66 09/07/21 07:48 Pulse Ox 99 09/07/21 07:48 Intake & Output 09/06/21 09/07/21 09/07/21 18:59 06:59 18:59 Intake Total 1218 310 480 Output Total 475 900 Balance 743 -590 480 Intake: IV 10 Invasive Line 4 10 Oral 1218 300 480 Output: Urine 475 900 Other: Voiding Method Urinal Urinal - Exam No acute distress, oriented 3. No clearcut respiratory distress, or conversational dyspnea. The patient's currently on 2 L. HEENT examination is grossly unremarkable. Mucous membranes are moist. No oral lesions. Neck supple. Full range of motion. No adenopathy thyromegaly or neck vein distention. Cardiovascular examination reveals regular rhythm rate. S1-S2 normal. No S3 or S4. No discernible murmur noted. Heart rate 71 bpm. Lungs reveal mild scattered bilateral rhonchi and a few scattered basilar crackles. Breath sounds equal bilaterally. No wheezes. 2 L saturation is 99%. Abdomen soft bowel sounds are heard. No masses or tenderness. Extremities are intact. No cyanosis or clubbing. Edema is noted. It is 1+. Skin is very dry. Neurologic examination is brief but nonfocal. - Labs CBC & Chem 7: 09/02/21 15:15 09/07/21 06:50 Labs: Abnormal Lab Results - Last 24 Hours (Table) 09/06/21 09/06/21 09/07/21 Range/Units 16:27 19:45 00:18 Sodium (137-145) mmol/L BUN (9-20) mg/dL Creatinine (0.66-1.25) mg/dL Glucose (74-99) mg/dL POC Glucose (mg/dL) 184 H 214 H 214 H (75-99) mg/dL Calcium (8.4-10.2) mg/dL 09/07/21 09/07/21 09/07/21 Range/Units 06:10 06:50 11:44 Sodium 132 L (137-145) mmol/L BUN 95 H (9-20) mg/dL Creatinine 2.99 H (0.66-1.25) mg/dL Glucose 114 H (74-99) mg/dL POC Glucose (mg/dL) 289 H 103 H (75-99) mg/dL Calcium 7.5 L (8.4-10.2) mg/dL Microbiology - Last 24 Hours (Table) 09/02/21 17:00 Blood Culture - Preliminary Blood No Growth after 96 hours 09/02/21 16:45 Blood Culture - Preliminary Blood No Growth after 96 hours Assessment and Plan Assessment: Acute hypoxemic respiratory failure, secondary to diastolic CHF. Recent episode of coronavirus associated pneumonia, hospitalized at [facility]. Stage IV chronic kidney disease. History of aortic valve endocarditis. History of recurrent methicillin-resistant staph aureus infection. Diabetes mellitus. Diabetic neuropathy. Diabetic retinopathy. Hypertension. Hyperlipidemia. COPD. Medication noncompliance. Mild hyperkalemia. Plan: Plan dated 09/06/2021. The patient has been weaned down to 3 L. The patient's Lasix drip has been d iscontinued. The patient is not receiving any IV fluids. There are basilar crackles on examination, and some lower extremity edema. We will continue to follow. X-rays, labs, and medications are reviewed. Additional recommendations and suggestions are forthcoming. We will continue to follow make recommendations where appropriate. Prognosis is guarded. Plan dated 09/07/2021. The patient has been weaned down to 2 L nasal cannula. He appears very comfortable. We will continue to follow make recommendations where appropriate. Labs, x-rays, and medications are all reviewed. Previous x-rays are reviewed. He appears in no acute distress. He is able to lie flat in bed. Prognosis is guarded. Time with Patient: Less than 30
[2021-09-07 17:09] LABS: Glucose,Whole Blood 183 mg/dL (75-99)
--- NOTE | 2021-09-07 18:58 | P.PN ---
Progress Note - Text Progress Note Date: 09/07/21 Chief Complaint: Short of breath History of presenting complaint This is a very pleasant 51-year-old patient, chronic stable medical conditions include diabetes mellitus type 2, peripheral neuropathy, hyperlipidemia patient has chronic lower extremity leg wounds. Autonomic dysfunction from diabetes. Causing orthostatics. Patient now presents with episodes of falling down. He states that these happens intermittently. The current episode patient was satting in the kitchen reaching [facility] to get a copy and his legs and he felt weak and then he went down to the ground. no chest pain or palpitation. He does often get dizzy on standing up. No seizure activity. No focal weakness. Appetite is good. No fever no chills. Patient now presents for short of breath for 2 days. Some cough with green sputum. Also developed some vomiting. Also had some diarrhea. Decreased appetite. There had been some chills. Increasing lower extremity edema. Last bowel movement was yesterday. Last vomiting was yesterday the ER. Patient is accompanied by his girlfriend. Seen earlier by nephrology given IV Lasix. September 04: Breathing a bit better. Sitting at edge of the bed. Slight decrease in edema. Tolerating full liquid. Gets full easily. No diarrhea. No vomiting. Lasix drip. Making good urine. September 05: Breathing improving. Sitting at edge of the bed. Lasix drip. Eating close to 75%. Andres wrap lower extremity. Mother and girlfriend at the bedside. Complaint of hip pain last night. X-rays ordered. Consulted orthopedics. September 06: Breathing better. Taken off Lasix drip. Started on torsemide 40 mg. Oral intake fair. September 07: Breathing is better. On oral Demadex. Patient now being evaluated for inpatient rehab. radiation control worker/senior case manager is working on the same. Discharged when bed available. Review of systems: Was done for constitutional, cardiovascular, GI, pulmonary. relevant finding as above Active Medications Acetaminophen (Acetaminophen Tab 325 Mg Tab) 650 mg PO Q6HR PRN PRN Reason: Mild Pain or Fever > 100.5 Last Admin: 09/06/21 21:55 Dose: 650 mg Documented by: Albuterol/Ipratropium (Ipratropium-Albuterol 3 Ml Neb) 3 ml INHALATION RT-QID LUIZA Last Admin: 09/07/21 15:42 Dose: Not Given Documented by: Amlodipine Besylate (Amlodipine 5 Mg Tab) 5 mg PO BID [facility] Last Admin: 09/07/21 08:40 Dose: 5 mg Documented by: Aspirin (Aspirin 81 Mg) 81 mg PO DAILY [facility] Last Admin: 09/07/21 08:40 Dose: 81 mg Documented by: Atorvastatin Calcium (Atorvastatin 40 Mg Tab) 40 mg PO DAILY [facility] Last Admin: 09/07/21 08:40 Dose: 40 mg Documented by: Baclofen (Baclofen 10 Mg Tab) 5 mg PO Q6H PRN PRN Reason: Muscle Spasm Last Admin: 09/06/21 21:54 Dose: 5 mg Documented by: Duloxetine HCl (Duloxetine Hcl 60 Mg Capsule.Dr) 60 mg PO DAILY [facility] Last Admin: 09/07/21 08:40 Dose: 60 mg Documented by: Gabapentin (Gabapentin 100 Mg Cap) 100 mg PO TID [facility] Last Admin: 09/07/21 17:23 Dose: 100 mg Documented by: Insulin Aspart (Insulin Aspart (Novolog) 100 Unit/Ml Vial) 0 unit SQ [facility]; Protocol Last Admin: 09/07/21 17:23 Dose: 3 unit Documented by: Insulin Detemir (Insulin Detemir (Levemir) 100 Unit/Ml Syr) 14 unit SQ HS [facility] Last Admin: 09/06/21 21:55 Dose: 14 unit Documented by: Isosorbide Mononitrate (Isosorbide Mononitrate Er 30 Mg Tab.Er.24h) 30 mg PO DAILY [facility] Last Admin: 09/07/21 08:40 Dose: 30 mg Documented by: Metoprolol Tartrate (Metoprolol Tartrate 50 Mg Tab) 50 mg PO BID [facility] Last Admin: 09/07/21 08:40 Dose: 50 mg Documented by: Mupirocin (Mupirocin 2% Oint 22 Gm Tube) 1 applic TOPICAL DAILY [facility]; Protocol Last Admin: 09/07/21 08:41 Dose: Not Given Documented by: Naloxone HCl (Naloxone 0.4 Mg/Ml 1 Ml Vial) 0.2 mg IV Q2M PRN PRN Reason: Opioid Reversal Ondansetron HCl (Ondansetron 4 Mg/2 Ml Vial) 4 mg IVP Q6HR PRN PRN Reason: Nausea And Vomiting Pantoprazole Sodium (Pantoprazole 40 Mg Tablet) 40 mg PO DAILY@0730 [facility] Last Admin: 09/07/21 06:46 Dose: 40 mg Documented by: Ropinirole HCl (Ropinirole Hcl 0.25 Mg Tab) 0.25 mg PO [facility] Last Admin: 09/06/21 21:54 Dose: 0.25 mg Documented by: Torsemide (Torsemide 20 Mg Tab) 40 mg PO DAILY [facility] Last Admin: 09/07/21 08:41 Dose: 40 mg Documented by: Past medical history to include: Diabetes, hyperlipidemia, peripheral neuropathy, MRSA infection including abscess and cellulitis,, anxiety, diabetic autonomic dysfunction Social history: Patient lives with his 2 children. Previously did [employer]. Smoking 2 packs a day for 32 years. , Stopped less than a year ago. Alcohol occasionally. Physical examination: VITAL SIGNS: 98.5, 70, 18, 1 26 x 69, 77% on 2 L GENERAL: Reclining in bed, awake, comfortable EYES: Pupils equal. Conjunctiva normal. HEENT: External appearance of nose and ears normal, oral cavity grossly normal. NECK: JVD not raised; masses not palpable. HEART: First and second heart sounds are normal; decrease edema LUNGS: Respiratory rate normal, decreased breath sounds. ABDOMEN: Soft, nontender, liver spleen not palpable, no masses palpable. PSYCH: Alert and oriented x3; mood and affect anxious DERMATOLOGICAL: Wounds of the lower extremity. See nursing notes. INVESTIGATIONS, reviewed in the clinical context: September 07: Sodium 132 potassium 4.3 BUN 95 creatinine 2.99 September 06: Sodium 132 potassium 4.6 BUN 87 creatinine 3.03 September 05: Sodium 132 potassium 4.9 BUN 81 creatinine 3.02 Chest x-ray film personally reviewed by me-[September 05]: Pulmonary edema. Right hip x-ray film personally reviewed by me: Evidence of OA. September 04: Potassium 4.8 BUN 79 creatinine 3.13 White count 19.6 hemoglobin 10.7 platelets 313 potassium 5.9 BUN 83 creatinine 3.14 Chest x-ray film personally reviewed by me-pulmonary edema EKG tracing personally reviewed by me-normal sinus rhythm. Nonspecific T-wave changes. Pro-calcitonin 1.7 to Coronavirus [PCR]: Not detected Previous labs: March 2021: BUN 55 creatinine 4.136 Assessment and plan: --Acute on Chronic congestive heart failure from diastolic dysfunction EF 50- 55%: Better Received Lasix drip at 10 mg an hour-discontinued. Demadex 40 mg -Acute gastroenteritis, likely viral.: Improved Soft bland diet -Chronic autonomic dysfunction from diabetes- Fall precautions -Chronic stable angina with a prior history of positive nuclear stress test. Imdur ER 30 mg a day -Chronic lower extremity wounds. Continue wound care. Consult Dr. 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 Decrease Levemir to 18 units at night. 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 X-ray shows evidence of OA. Orthopedics/Dr. Orona consulted. CT right hip shows OA. MRI of the hip shows osteoarthritis. Continue current medication treatment plan. Discussed with demand planner. Awaiting [facility] rehab bed.
[2021-09-07 19:33] LABS: Glucose,Whole Blood 243 mg/dL (75-99)
[2021-09-07] MEDS: INSULIN DETEMIR (LEVEMIR) 100 UNIT/ML SYR SQ SCH (21:37)
--- NOTE | 2021-09-07 23:19 | PN ---
PROGRESS NOTE DATE OF SERVICE: 09/07/2021 REASON FOR FOLLOWUP: Right lower extremity wound. INTERVAL HISTORY: Patient is afebrile. The patient is breathing comfortably. The patient denies having any chest pain, shortness of breath or cough. No abdominal pain. No pain to the lower extremity wound area. PHYSICAL EXAMINATION: Blood pressure is 156/69, pulse of 73, temperature 98.5. He is 97% on room air. General description is a middle-aged male up in the chair in no distress. Respiratory system: Unlabored breathing, decreased intensity of breath sounds. No wheeze. Heart S1, S2. Regular rate and rhythm. Abdomen: Soft, no tenderness. Right lower extremity wound has kind of opened up with some slough tissue. Some swelling but no redness. LABS: Creatinine is 2.99. DIAGNOSTIC IMPRESSION AND PLAN: Patient with right lower extremity wound, multiple without evidence of any secondary cellulitis. Local care will be switched over to Santyl followed by moist dressing and light Andres wrap to keep the swelling down. Continue supportive care. MMODL / IJN: [id number] /
[2021-09-08 05:58] LABS: Glucose,Whole Blood 172 mg/dL (75-99)
[2021-09-08] MEDS: INSULIN ASPART (NovoLOG) 100 UNIT/ML VIAL SQ SCH ×4 (06:46→20:43)
[2021-09-08] MEDS: PANTOPRAZOLE 40 MG TABLET PO SCH (06:46)
[2021-09-08] MEDS ORDERED: COLLAGENASE 250 UNIT/GM OINTMENT 30 GM TUBE TOPICAL SCH (09:00)
--- NOTE | 2021-09-08 09:12 | P.PN ---
Subjective Patient is seen in follow-up for chronic kidney disease. Patient has chronic kidney disease stage IV with creatinine in the range of 3-4. Renal function stable. He is maintained on oral torsemide. Good urine output. Oral intake fair. Diarrhea resolved. Edema improving. No active complaints. Vital signs are stable. General: The patient appeared well nourished and normally developed. HEENT: Head exam is unremarkable. LUNGS: Breath sounds decreased. HEART: Rate and Rhythm are regular. ABDOMEN: Soft, no distention. EXTREMITITES: 1+ edema. Lower extremity is wrapped. Objective - Vital Signs Vital signs: Vital Signs Temp 98.3 F 09/08/21 04:00 Pulse 71 09/08/21 04:00 Resp 18 09/08/21 04:00 BP 148/79 09/08/21 04:00 Pulse Ox 97 09/08/21 04:00 Intake & Output 09/07/21 09/08/21 09/08/21 18:59 06:59 18:59 Intake Total 716 464 Output Total 325 Balance 716 -325 464 Weight 96.4 kg Intake: Oral 716 464 Output: Urine 325 Other: Voiding Method Urinal - Labs CBC & Chem 7: 09/02/21 15:15 09/07/21 06:50 Labs: Abnormal Lab Results - Last 24 Hours (Table) 09/07/21 09/07/21 09/07/21 Range/Units 11:44 16:53 19:29 POC Glucose (mg/dL) 103 H 183 H 243 H (75-99) mg/dL C-Reactive Protein (<1.0) mg/dL 09/08/21 09/08/21 Range/Units 05:56 06:52 POC Glucose (mg/dL) 172 H (75-99) mg/dL C-Reactive Protein 4.6 H (<1.0) mg/dL Microbiology - Last 24 Hours (Table) 09/02/21 17:00 Blood Culture - Preliminary Blood No Growth after 120 hours 09/02/21 16:45 Blood Culture - Preliminary Blood No Growth after 120 hours Assessment and Plan Plan: Assessment: 1. Chronic kidney disease stage IV with baseline creatinine in the range of 3-4 secondary to cardiorenal syndrome diabetic kidney disease. Renal function stable. 2. Volume overload. Improving with diuresis. 3. Acute on chronic diastolic CHF with mild to moderate aortic regurgitation. 4. Hyperkalemia secondary to chronic kidney disease and hyperglycemia. Improved. 5. Hypertension with chronic kidney disease. Stable. 6. Hyponatremia secondary to chronic disease. Hypervolemic. Also component of hyperglycemia. Plan: Maintain torsemide 40 mg once daily. 1200 mL fluid restriction. Continue to monitor renal function and urine output. Follow-up morning labs.
[2021-09-08] MEDS: ASPIRIN 81 MG PO SCH (09:20)
[2021-09-08] MEDS: DULoxetine HCL 60 MG CAPSULE.DR PO SCH (09:20)
[2021-09-08] MEDS: amLODIPine 5 MG TAB PO SCH ×2 (09:21→20:39)
[2021-09-08] MEDS: METOPROLOL TARTRATE 50 MG TAB PO SCH ×2 (09:21→20:42)
[2021-09-08] MEDS: ATORVASTATIN 40 MG TAB PO SCH (09:21)
[2021-09-08] MEDS: GABAPENTIN 100 MG CAP PO SCH (09:21)
[2021-09-08] MEDS: TORSEMIDE 20 MG TAB PO SCH (09:21)
[2021-09-08] MEDS: ISOSORBIDE MONONITRATE ER 30 MG TAB.ER.24H PO SCH (09:21)
[2021-09-08] MEDS: IPRATROPIUM-ALBUTEROL 3 ML NEB INHALATION SCH ×4 (10:43→21:45)
[2021-09-08] MEDS: MUPIROCIN 2% OINT 22 GM TUBE TOPICAL SCH (11:35)
[2021-09-08 11:48] VITALS: BMI 33.3
[2021-09-08 11:53] LABS: Glucose,Whole Blood 167 mg/dL (75-99)
--- NOTE | 2021-09-08 13:14 | P.PN ---
Subjective Progress Note Date: 09/08/21 Principal diagnosis: Shortness of breath. 09/04/2021, the patient remains on IV Lasix. Exact amount of urine output is not clearly documented in the records. No significant shortness of breath. The patient is still on oxygen at 6 L per minute with a pulse ox of 91%. Afebrile. Hemodynamically stable. No worsening shortness of breath. Blood work from today shows a BUN of 79 with a creatinine of 3.1, potassium is at 4.8 with a sodium level of 134. The patient is receiving Lasix and this was switched from Lasix IV push daily Lasix drip at 10 mg an hour. He is on Levemir insulin 14 units along with a sliding scale coverage. 09/05/2021, the patient resting comfortably in bed on Lasix drip at 10 mg an hour. Doing well. Negative fluid balance. No C. diff and shortness of breath. Blood work was noted and the patient has a BUN of 81 with a creatinine 3.02, sodium is at 132. Oxygenation is improved. The patient is currently down to 40s about 2 by nasal cannula and the pulse ox is around 96%. No angina. No palpitation. Afebrile. Hemodynamically stable. Nephrology is on the case. Progress note dated 09/06/2021. The patient is again seen in room 353. The patient's not receiving any IV fluids. The patient is on 3 L nasal cannula. The patient does have some lower extremity edema. Overall, the patient's doing much better. Lab data includes a sodium 132, potassium 4.6, chlorides 97, CO2 26, anion gap 9, BUN 87, and creatinine 3.03. Magnesium is 2.1. Chest x-ray from September 05 reveals mild scattered infiltrates, greatest in the left midlung, which are improved. Progress note dated 09/07/2021. The patient is again seen in room 353. He's currently on 3 L nasal cannula. He's not receiving IV fluids. Initially when I came to the room, he was laying on his left side, completely flat in bed, without any respiratory distress or difficulty. Sodium 132, potassium 4.3, chlorides 98, CO2 27, anion gap 7, BUN 95, and creatinine 2.99. Progress note dated 09/08/2021. 51-year-old male, again seen in room 353. The patient's currently on 2 L nasal cannula. The patient is not receiving any IV fluids. The patient is feeling better. He is much less short of breath. He's able to lay flat in bed, without any respiratory difficulty. Labs today include a sed rate of 87, a glucose of 167, C-reactive protein of 4.6, and a pro-calcitonin level of 0.9. Blood cultures are thus far negative. Objective - Vital Signs Vital signs: Vital Signs Temp 97.7 F 09/08/21 08:00 Pulse 71 09/08/21 11:45 Resp 16 09/08/21 11:45 BP 131/71 09/08/21 08:00 Pulse Ox 96 09/08/21 08:00 Intake & Output 09/07/21 09/08/21 09/08/21 18:59 06:59 18:59 Intake Total 716 464 Output Total 325 Balance 716 -325 464 Weight 96.4 kg 96.4 kg Intake: Oral 716 464 Output: Urine 325 Other: Voiding Method Urinal Urinal # Voids 1 # Bowel Movements 1 - Exam No acute distress, oriented 3. No clearcut respiratory distress, or conversational dyspnea. The patient's currently on 2 L. HEENT examination is grossly unremarkable. Mucous membranes are moist. No oral lesions. Neck supple. Full range of motion. No adenopathy thyromegaly or neck vein distention. Cardiovascular examination reveals regular rhythm rate. S1-S2 normal. No S3 or S4. No discernible murmur noted. Heart rate 71 bpm. Lungs reveal mild rhonchi and mild basilar crackles. Breath sounds are improved. Breath sounds are equal bilaterally. There are no wheezes. 2 L saturations between 96-97%. Abdomen soft bowel sounds are heard. No masses or tenderness. Extremities are intact. No cyanosis or clubbing. Edema is noted. It is 1+. Lower extremity edema is improved. Skin is very dry. Neurologic examination is brief but nonfocal. - Labs CBC & Chem 7: 09/02/21 15:15 09/07/21 06:50 Labs: Abnormal Lab Results - Last 24 Hours (Table) 09/07/21 09/07/21 09/08/21 Range/Units 16:53 19:29 05:56 ESR (0-15) mm/hr POC Glucose (mg/dL) 183 H 243 H 172 H (75-99) mg/dL C-Reactive Protein (<1.0) mg/dL Procalcitonin (0.02-0.09) ng/mL 09/08/21 09/08/21 09/08/21 Range/Units 06:52 06:52 06:52 ESR 87 H (0-15) mm/hr POC Glucose (mg/dL) (75-99) mg/dL C-Reactive Protein 4.6 H (<1.0) mg/dL Procalcitonin 0.90 H (0.02-0.09) ng/mL 09/08/21 Range/Units 11:42 ESR (0-15) mm/hr POC Glucose (mg/dL) 167 H (75-99) mg/dL C-Reactive Protein (<1.0) mg/dL Procalcitonin (0.02-0.09) ng/mL Microbiology - Last 24 Hours (Table) 09/02/21 17:00 Blood Culture - Preliminary Blood No Growth after 120 hours 09/02/21 16:45 Blood Culture - Preliminary Blood No Growth after 120 hours Assessment and Plan Assessment: Acute hypoxemic respiratory failure, secondary to diastolic CHF. Recent episode of coronavirus associated pneumonia, hospitalized at [facility]. Stage IV chronic kidney disease. History of aortic valve endocarditis. History of recurrent methicillin-resistant staph aureus infection. Diabetes mellitus. Diabetic neuropathy. Diabetic retinopathy. Hypertension. Hyperlipidemia. COPD. Medication noncompliance. Mild hyperkalemia. Plan: Plan dated 09/06/2021. The patient has been weaned down to 3 L. The patient's Lasix drip has been discontinued. The patient is not receiving any IV fluids. There are basilar crackles on examination, and some lower extremity edema. We will continue to follow. X-rays, labs, and medications are reviewed. Additional recommendations and suggestions are forthcoming. We will continue to follow make recommendati ons where appropriate. Prognosis is guarded. Plan dated 09/07/2021. The patient has been weaned down to 2 L nasal cannula. He appears very comfortable. We will continue to follow make recommendations where appropriate. Labs, x-rays, and medications are all reviewed. Previous x-rays are reviewed. He appears in no acute distress. He is able to lie flat in bed. Prognosis is guarded. Plan dated 09/08/2021. The patient has been weaned on 2 L. The patient is not having any respiratory issues whatsoever. Labs, medications, and x-rays are all reviewed. From the pulmonary standpoint, the patient could be considered for possible discharge. We will leave that up to the primary. No additional recommendations are made. Prognosis is guarded. Time with Patient: Less than 30
[2021-09-08 13:31] LABS: Glucose,Whole Blood 179 mg/dL (75-99)
--- NOTE | 2021-09-08 14:40 | CT ---
EXAMINATION TYPE: CT brain wo con DATE OF EXAM: 09/08/2021 COMPARISON: CT brain 10/06/2020 HISTORY: Increased lethargy. CT DLP: 1111.4 mGycm Automated exposure control for dose reduction was used. Helical imaging through the brain. FINDINGS: Possible mucus retention cyst, polyp noted within the left maxillary sinus, there is some associated mucoperiosteal thickening. Brain shows no hemorrhage or hydrocephalus. There is a stable appearance. Mastoid air cells are well aerated. Brain density is maintained. IMPRESSION: STABLE EXAM, NO ACUTE BRAIN ABNORMALITY. SINUS DISEASE.
--- NOTE | 2021-09-08 14:54 | P.PN ---
Progress Note - Text Progress Note Date: 09/08/21 Chief Complaint: Short of breath History of presenting complaint This is a very pleasant 51-year-old patient, chronic stable medical conditions include diabetes mellitus type 2, peripheral neuropathy, hyperlipidemia patient has chronic lower extremity leg wounds. Autonomic dysfunction from diabetes. Causing orthostatics. Patient now presents with episodes of falling down. He states that these happens intermittently. The current episode patient was satting in the kitchen reaching [facility] to get a copy and his legs and he felt weak and then he went down to the ground. no chest pain or palpitation. He does often get dizzy on standing up. No seizure activity. No focal weakness. Appetite is good. No fever no chills. Patient now presents for short of breath for 2 days. Some cough with green sputum. Also developed some vomiting. Also had some diarrhea. Decreased appetite. There had been some chills. Increasing lower extremity edema. Last bowel movement was yesterday. Last vomiting was yesterday the ER. Patient is accompanied by his girlfriend. Seen earlier by nephrology given IV Lasix. September 04: Breathing a bit better. Sitting at edge of the bed. Slight decrease in edema. Tolerating full liquid. Gets full easily. No diarrhea. No vomiting. Lasix drip. Making good urine. September 05: Breathing improving. Sitting at edge of the bed. Lasix drip. Eating close to 75%. Andres wrap lower extremity. Mother and girlfriend at the bedside. Complaint of hip pain last night. X-rays ordered. Consulted orthopedics. September 06: Breathing better. Taken off Lasix drip. Started on torsemide 40 mg. Oral intake fair. September 07: Breathing is better. On oral Demadex. Patient now being evaluated for inpatient rehab. glueline worker/case management director is working on the same. Discharged when bed available. September 08: Pulse ox 96% on 2 L this morning. Eating well. Diet. Breathing is stable. [facility] Family is concerned and feels that his neurological status is unchanged. Patient did not complain of any focal or new weakness. He simply took speed tired. Neurology consultation is being initiated. Computed tomography scan of the brain ordered. Review of systems: Was done for constitutional, cardiovascular, GI, pulmonary. relevant finding as above Active Medications Acetaminophen (Acetaminophen Tab 325 Mg Tab) 650 mg PO Q6HR PRN PRN Reason: Mild Pain or Fever > 100.5 Last Admin: 09/06/21 21:55 Dose: 650 mg Documented by: Albuterol/Ipratropium (Ipratropium-Albuterol 3 Ml Neb) 3 ml INHALATION RT-QID [facility] Last Admin: 09/08/21 11:56 Dose: Not Given Documented by: Amlodipine Besylate (Amlodipine 5 Mg Tab) 5 mg PO BID [facility] Last Admin: 09/08/21 09:21 Dose: 5 mg Documented by: Aspirin (Aspirin 81 Mg) 81 mg PO DAILY [facility] Last Admin: 09/08/21 09:20 Dose: 81 mg Documented by: Atorvastatin Calcium (Atorvastatin 40 Mg Tab) 40 mg PO DAILY [facility] Last Admin: 09/08/21 09:21 Dose: 40 mg Documented by: Baclofen (Baclofen 10 Mg Tab) 5 mg PO Q6H PRN PRN Reason: Muscle Spasm Last Admin: 09/06/21 21:54 Dose: 5 mg Documented by: Collagenase (Collagenase 250 Unit/Gm Ointment 30 Gm Tube) 1 applic TOPICAL DAILY [facility]; Protocol Last Admin: 09/08/21 09:20 Dose: 1 applic Documented by: Duloxetine HCl (Duloxetine Hcl 60 Mg Capsule.Dr) 60 mg PO DAILY [facility] Last Admin: 09/08/21 09:20 Dose: 60 mg Documented by: Insulin Aspart (Insulin Aspart (Novolog) 100 Unit/Ml Vial) 0 unit SQ ACHS [facility]; Protocol Last Admin: 09/08/21 06:46 Dose: 2 unit Documented by: Insulin Detemir (Insulin Detemir (Levemir) 100 Unit/Ml Syr) 14 unit SQ HS [facility] Last Admin: 09/07/21 21:37 Dose: 14 unit Documented by: Isosorbide Mononitrate (Isosorbide Mononitrate Er 30 Mg Tab.Er.24h) 30 mg PO DAILY [facility] Last Admin: 09/08/21 09:21 Dose: 30 mg Documented by: Metoprolol Tartrate (Metoprolol Tartrate 50 Mg Tab) 50 mg PO BID [facility] Last Admin: 09/08/21 09:21 Dose: 50 mg Documented by: Mupirocin (Mupirocin 2% Oint 22 Gm Tube) 1 applic TOPICAL DAILY [facility]; Protocol Last Admin: 09/08/21 11:35 Dose: Not Given Documented by: Naloxone HCl (Naloxone 0.4 Mg/Ml 1 Ml Vial) 0.2 mg IV Q2M PRN PRN Reason: Opioid Reversal Ondansetron HCl (Ondansetron 4 Mg/2 Ml Vial) 4 mg IVP Q6HR PRN PRN Reason: Nausea And Vomiting Pantoprazole Sodium (Pantoprazole 40 Mg Tablet) 40 mg PO DAILY@0730 [facility] Last Admin: 09/08/21 06:46 Dose: 40 mg Documented by: Ropinirole HCl (Ropinirole Hcl 0.25 Mg Tab) 0.25 mg PO HS [facility] Last Admin: 09/07/21 21:36 Dose: 0.25 mg Documented by: Torsemide (Torsemide 20 Mg Tab) 40 mg PO DAILY [facility] Last Admin: 09/08/21 09:21 Dose: 40 mg Documented by: Past medical history to include: Diabetes, hyperlipidemia, peripheral neuropathy, MRSA infection including abscess and cellulitis,, anxiety, diabetic autonomic dysfunction Social history: Patient lives with his 2 children. Previously did [employer]. Smoking 2 packs a day for 32 years. , Stopped less than a year ago. Alcohol occasionally. Physical examination: VITAL SIGNS: 97.7, 84, 16, 131/71, 96% on 2 L GENERAL: Laying in bed, sleepy, comfortable EYES: Pupils equal. Conjunctiva normal. HEENT: External appearance of nose and ears normal, oral cavity grossly normal. NECK: JVD not raised; masses not palpable. HEART: First and second heart sounds are normal; decrease edema LUNGS: Respiratory rate normal, decreased breath sounds. ABDOMEN: Soft, nontender, liver spleen not palpable, no masses palpable. PSYCH: Answering questions appropriately sleepy NEUROLOGICAL: No focal weakness DERMATOLOGICAL: Wounds of the lower extremity. See nursing notes. INVESTIGATIONS, reviewed in the clinical context: September 08: ESR 87 CRP 4.6 procalcitonin 0.90 September 07: Sodium 132 potassium 4.3 BUN 95 creatinine 2.99 September 06: Sodium 132 potassium 4.6 BUN 87 creatinine 3.03 September 05: Sodium 132 potassium 4.9 BUN 81 creatinine 3.02 Chest x-ray film personally reviewed by me-[September 05]: Pulmonary edema. Right hip x-ray film personally reviewed by me: Evidence of OA. September 04: Potassium 4.8 BUN 79 creatinine 3.13 White count 19.6 hemoglobin 10.7 platelets 313 potassium 5.9 BUN 83 creatinine 3.14 Chest x-ray film personally reviewed by me-pulmonary edema EKG tracing personally reviewed by me-normal sinus rhythm. Nonspecific T-wave changes. Pro-calcitonin 1.7 to Coronavirus [PCR]: Not detected Previous labs: March 2021: BUN 55 creatinine 4.136 Assessment and plan: --Acute on Chronic congestive heart failure from diastolic dysfunction EF 50- 55%: Stable Received Lasix drip at 10 mg an hour-discontinued. Demadex 40 mg -Acute gastroenteritis, likely viral.: Corrected Soft bland diet -Chronic autonomic dysfunction from diabetes- Fall precautions -Chronic stable angina with a prior history of positive nuclear stress test. Imdur ER 30 mg a day -Chronic lower extremity wounds. Continue wound care. Consult Dr. 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 Decrease Levemir to 18 units at night. 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 X-ray shows evidence of OA. Orthopedics/Dr. [place] consulted. CT right hip shows OA. MRI of the hip shows osteoarthritis. Family's concern about vision being 2 lethargic. He's been eating well. Pulse ox is good. Laying flat in bed. Comfortable. No obvious focal weakness. We'll get a computed tomography scan of the brain and get a neurological opinion to make sure nothing else is going on. Discharge held for today. Will DC Neurontin at that is contributing to patient being lethargic.
--- NOTE | 2021-09-08 15:40 | P.CNNES ---
History of Present Illness Consult date: 09/08/21 Requesting physician: Armando Pablo Reason for Consult: altered mental status History of Present Illness: This is a 51-year-old gentleman with medical history of uncontrolled diabetes mellitus, diabetic peripheral neuropathy, positive orthostatic hypotension/dysautonomic (with positive tilt table test on 10/2020), chronic kidney disease, diabetic retinopathic the, history of recurrent MRSA infection, hyperlipidemia, heart failure with preserved ejection fraction, hypertension who presented to the emergency department on 09/02/2021 for dyspnea and vomiting. Neurology is consulted for altered mental status. Per the patient's nurse the patient has episodes of jerks that are brief of his upper body laterally and he is responsive during these episodes and there is no foaming around the mouth. Per the patient's mother was at bedside she stated that the patient had difficulty raising his arm up but according to the nurse when she asked him to raise arm there is no focal deficits. Patient had recent walsh virus associated pneumonia and was treated at [facility]. During his hospital stay it was felt the patient has acute hypoxic respiratory failure because of diastolic congestive heart failure as well as the patient had recent. In this hospital stay the patient's POC glucose was low as 30s to 40s on 09/04/2021. Per the patient's mother she stated the patient follows up with Dr. Woodall as an outpatient and she did an EMG with nerve conduction study and per patient was told everything look well. Patient is on home medication of baclofen 5 mg 1 tablet every hours as needed, gabapentin 100 mg 1 tablet 3 times a day, Lipitor 40 mg daily, insulin, metoprolol, ropinirole 0.25 mg daily at bedtime, aspirin 81 mg, Imdur. Of note, I saw the patient on 2020 and the patient had orthostatic h ypotension/dysautonomia with positive tilt table test. Patient had generalized weakness due to multifactorial because of hypotension, brittle diabetes and which she had mild hypoglycemia. Patient has history of ?endocarditis on 07/2020 but further was negative for endocartitis or abscess at [facility]. Some other workup in the hospital consisted of: Most recent vital signs is a blood pressure 130/71, heart rate of 70, respiratory of 16, temperature of 97.9 Fahrenheit, pulse ox of 93 L on 3 L nasal cannula. Patient white blood cell was 19.6 on 09/02/2021 and is predominantly neutroph ilic and has not had any repeated the CBC repeated. Chemistry panels sodium is 132, creatinine is 2.99, serum glucose is 114, calcium 7.5, magnesium is 2.1. AST is 47 ALTs 28. Infection disease is on board in the file patient has right lower extremity won't multiple without evidence of any secondary cellulitis. And they recommend continue supportive care. Nephrology team is also on board. Review of Systems Review of system: The 12 point system was reviewed and apparent positive and negative per HPI. Past Medical History Past Medical History: Heart Failure, Diabetes Mellitus, Hyperlipidemia, Hypertension, Renal Disease Additional Past Medical History / Comment(s): COVID (vented) IDDM type II, neuropathy bilateral feet, gout, bilateral eye catarct removal, MRSA . History of Any Multi-Drug Resistant Organisms: MRSA Date of last positivie culture/infection: 12/17/20 MDRO Source:: Right Leg Past Surgical History: Cholecystectomy Additional Past Surgical History / Comment(s): I&D scrotal abscess, I&D back abscess Past Anesthesia/Blood Transfusion Reactions: No Reported Reaction Smoking Status: Former smoker - Past Family History Mother Family Medical History: Diabetes Mellitus Father History Unknown: Yes Medications and Allergies Home Medications Medication Instructions Recorded Confirmed Type DULoxetine HCL [Cymbalta] 60 mg PO DAILY 04/01/20 09/02/21 History Acetaminophen Tab [Tylenol] 650 mg PO Q4H PRN 07/25/20 09/02/21 History Atorvastatin [Lipitor] 40 mg PO DAILY #30 tab 10/13/20 09/02/21 Rx Metoprolol Tartrate [Lopressor] 50 mg PO BID 30 Days #60 tab 01/14/21 09/02/21 Rx Aspirin 81 mg PO DAILY #30 chewable 01/18/21 09/02/21 Rx Isosorbide Mononitrate ER [Imdur] 30 mg PO DAILY #30 tab.er.24h 02/11/21 09/02/21 Rx Insulin Aspart Protam & Aspart See Protocol SQ ACHS 09/02/21 09/02/21 History [NovoLOG MIX 70-30 Flexpen] Omeprazole [PriLOSEC] 40 mg PO DAILY 09/02/21 09/02/21 History Ozempic 4mg/3ml 4 mg SQ TU 09/02/21 09/02/21 History amLODIPine [Norvasc] 5 mg PO BID 09/02/21 09/02/21 History rOPINIRole HCL [Requip] 0.25 mg PO HS 09/02/21 09/02/21 History Mupirocin 2% Oint [Bactroban 2% 1 applic TOPICAL TID 09/04/21 09/04/21 History Oint] Baclofen [Lioresal] 5 mg PO Q8H PRN #30 tab 09/07/21 Rx Ipratropium-Albuterol Nebulize 3 ml INHALATION BID #60 ml 09/07/21 Rx [Duoneb 0.5 mg-3 mg/3 ml Soln] Torsemide [Demadex] 40 mg PO DAILY #60 tab 09/07/21 Rx Collagenase [Santyl Ointment] 1 applic TOPICAL DAILY gm 09/08/21 Rx Gabapentin [Neurontin] 100 mg PO TID #9 cap 09/08/21 Rx Allergies Allergy/AdvReac Type Severity Reaction Status Date / Time No Known Allergies Allergy Verified 09/02/21 18:32 Physical Examination - Vital Signs Vital Signs: Vital Signs Temp Pulse Resp BP Pulse Ox 09/08/21 14:02 97.9 F 70 16 130/71 93 L 09/08/21 11:45 71 16 09/08/21 08:00 97.7 F 84 16 131/71 96 09/08/21 04:00 98.3 F 71 18 148/79 97 09/08/21 02:00 20 09/07/21 23:41 98.1 F 77 20 128/70 95 09/07/21 20:00 20 09/07/21 16:00 98.5 F 70 18 126/69 97 Intake and Output 09/07/21 09/08/21 09/08/21 22:59 06:59 14:59 Intake Total 236 464 Output Total 325 Balance 236 -325 464 Intake: Oral 236 464 Output: Urine 325 Other: Voiding Method Urinal Urinal Urinal # Voids 1 # Bowel Movements 1 Weight 96.4 kg 96.4 kg GENERAL: The patient is lying in bed and is not in acute distress. CHEST: The heart rate is regular rate rhythm. No murmurs to auscultation. LUNG: Clear to auscultation bilaterally no wheezing noted throughout. Not labored breathing. ABDOMEN/GI: Bowel sounds present in all 4 quadrants. No tenderness to palpation throughout. INTEGUMENTARY: Has ulcer over the lower lower extremity below knee. NEUROLOGICAL: Higher mental function: The patient is awake, alert, oriented to self, place and time. He is somewhat slow is is responding appropriately. Patient is following simple commands. No aphasia and no neglect. Cranial nerves: The pupils are round, equal and reactive to light and accommodation. Visual manzo could not be asses because of his history of rentinopathy.. Extraocular movement is intact no nystagmus is noted. Facial sensation is normal to touch throughout. The facial strength is normal th roughout. Hearing is mildly decrease bilaterally to hand rub. Tongue is midline and moved [id number] without any difficulty. No dysarthria is noted. Shoulder shrug is normal bilaterally. Motor: The strength is 5 over 5 throughout uppers. The lower is limited because of pain but is able to lift above gravity over left lower extremity while right he is able to bend his knee (limited because of hip pain). Normal tone and bulk in uppers. Has atrophy over thenar. Left lower has guage wrapped below left knee. Cerebellum: Normal finger to nose bilaterally. Had myoclonic jerks extending arms out. Sensation: Sensation is normal to touch throughout. Plantars are downgoing bilaterally. Results - Laboratory Findings CBC and BMP: 09/02/21 15:15 09/07/21 06:50 Abnormal Lab Findings: Abnormal Labs 09/02/21 09/02/21 09/02/21 15:11 15:11 15:11 WBC RBC Hgb Hct RDW Neutrophils # Lymphocytes # ESR PT 13.9 H INR 1.4 H Sodium Potassium 5.9 H Chloride BUN 83 H Creatinine 3.14 H Glucose 228 H POC Glucose (mg/dL) Calcium Phosphorus Alkaline Phosphatase 328 H C-Reactive Protein Albumin 2.9 L Procalcitonin 1.72 H 09/02/21 09/03/21 09/03/21 15:15 10:31 11:36 WBC 19.6 H RBC 3.72 L Hgb 10.7 L Hct 33.6 L RDW 15.8 H Neutrophils # 18.1 H Lymphocytes # 0.4 L ESR PT INR Sodium Potassium Chloride BUN Creatinine Glucose POC Glucose (mg/dL) 214 H 222 H Calcium Phosphorus Alkaline Phosphatase C-Reactive Protein Albumin Procalcitonin 09/03/21 09/03/21 09/04/21 17:11 19:52 06:19 WBC RBC Hgb Hct RDW Neutrophils # Lymphocytes # ESR PT INR Sodium Potassium Chloride BUN Creatinine Glucose POC Glucose (mg/dL) 199 H 213 H 37 L Calcium Phosphorus Alkaline Phosphatase C-Reactive Protein Albumin Procalcitonin 09/04/21 09/04/21 09/04/21 07:28 07:29 07:50 WBC RBC Hgb Hct RDW Neutrophils # Lymphocytes # ESR PT INR Sodium Potassium Chloride BUN Creatinine Glucose POC Glucose (mg/dL) 49 L 52 L 113 H Calcium Phosphorus Alkaline Phosphatase C-Reactive Protein Albumin Procalcitonin 09/04/21 09/04/21 09/04/21 10:10 16:56 19:46 WBC RBC Hgb Hct RDW Neutrophils # Lymphocytes # ESR PT INR Sodium 134 L Potassium Chloride BUN 79 H Creatinine 3.13 H Glucose 73 L POC Glucose (mg/dL) 139 H 166 H Calcium 7.9 L Phosphorus Alkaline Phosphatase C-Reactive Protein Albumin Procalcitonin 09/05/21 09/05/21 09/05/21 06:00 08:11 11:30 WBC RBC Hgb Hct RDW Neutrophils # Lymphocytes # ESR PT INR Sodium 132 L Potassium Chloride 96 L BUN 81 H Creatinine 3.02 H Glucose 203 H POC Glucose (mg/dL) 231 H 250 H Calcium 7.6 L Phosphorus Alkaline Phosphatase C-Reactive Protein Albumin Procalcitonin 09/05/21 09/05/21 09/06/21 16:36 21:34 05:28 WBC RBC Hgb Hct RDW Neutrophils # Lymphocytes # ESR PT INR Sodium Potassium Chloride BUN Creatinine Glucose POC Glucose (mg/dL) 215 H 267 H 181 H Calcium Phosphorus Alkaline Phosphatase C-Reactive Protein Albumin Procalcitonin 09/06/21 09/06/21 09/06/21 08:41 11:13 16:27 WBC RBC Hgb Hct RDW Neutrophils # Lymphocytes # ESR PT INR Sodium 132 L Potassium Chloride 97 L BUN 87 H Creatinine 3.03 H Glucose POC Glucose (mg/dL) 181 H 184 H Calcium 7.5 L Phosphorus 4.7 H Alkaline Phosphatase C-Reactive Protein Albumin Procalcitonin 09/06/21 09/07/21 09/07/21 19:45 00:18 06:10 WBC RBC Hgb Hct RDW Neutrophils # Lymphocytes # ESR PT INR Sodium Potassium Chloride BUN Creatinine Glucose POC Glucose (mg/dL) 214 H 214 H 289 H Calcium Phosphorus Alkaline Phosphatase C-Reactive Protein Albumin Procalcitonin 09/07/21 09/07/21 09/07/21 06:50 11:44 16:53 WBC RBC Hgb Hct RDW Neutrophils # Lymphocytes # ESR PT INR Sodium 132 L Potassium Chloride BUN 95 H Creatinine 2.99 H Glucose 114 H POC Glucose (mg/dL) 103 H 183 H Calcium 7.5 L Phosphorus Alkaline Phosphatase C-Reactive Protein Albumin Procalcitonin 09/07/21 09/08/21 09/08/21 19:29 05:56 06:52 WBC RBC Hgb Hct RDW Neutrophils # Lymphocytes # ESR PT INR Sodium Potassium Chloride BUN Creatinine Glucose POC Glucose (mg/dL) 243 H 172 H Calcium Phosphorus Alkaline Phosphatase C-Reactive Protein Albumin Procalcitonin 0.90 H 09/08/21 09/08/21 09/08/21 06:52 06:52 11:42 WBC RBC Hgb Hct RDW Neutrophils # Lymphocytes # ESR 87 H PT INR Sodium Potassium Chloride BUN Creatinine Glucose POC Glucose (mg/dL) 167 H Calcium Phosphorus Alkaline Phosphatase C-Reactive Protein 4.6 H Albumin Procalcitonin 09/08/21 13:25 WBC RBC Hgb Hct RDW Neutrophils # Lymphocytes # ESR PT INR Sodium Potassium Chloride BUN Creatinine Glucose POC Glucose (mg/dL) 179 H Calcium Phosphorus Alkaline Phosphatase C-Reactive Protein Albumin Procalcitonin Assessment and Plan Assessment: Altered mental status due to multifactorial hypoxic encephalopathy and toxic- metabolic encephalopathy (had episode of hypoglycemia during this hospital stay as low in 30's-40's)---currently mentation seems appropriate. 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 CT of the head is ordered by the primary team is pending Q4 hour neuro checks Home Gabapentin 100mg 1 tab tid is not started which I agree which can cause worsening of his myoclonic jerks. PT and OT are consulted Infection disease is on board Nephrology is on board Pulmonology team is on board Recommend the patient to follow-up with cardiology team regarding the positive tilt table test in past. Please avoid any further hypoglycemia events and will defer management to primary team. We'll defer the rest of medical management to the primary team. Upon discharge, the patient needs to follow-up with his neurologist (Dr. Woodall) as outpatient within 1-2 weeks. The plan is discussed with the patient, his mother (who is at bedside) and his nurse. Thank you for the consultation. Franklin Long M.D. Neuro-Hospitalist Time with Patient: Greater than 30
[2021-09-08 17:05] LABS: Glucose,Whole Blood 214 mg/dL (75-99)
[2021-09-08] MEDS: ACETAMINOPHEN TAB 325 MG TAB PO PRN (18:30)
[2021-09-08] MEDS: BACLOFEN 10 MG TAB PO PRN (18:32)
[2021-09-08 20:03] LABS: Glucose,Whole Blood 384 mg/dL (75-99)
[2021-09-08] MEDS: INSULIN DETEMIR (LEVEMIR) 100 UNIT/ML SYR SQ SCH (20:42)
--- NOTE | 2021-09-08 22:47 | PN ---
PROGRESS NOTE DATE OF SERVICE: 09/08/2021 REASON FOR FOLLOWUP: Right lower extremity wound. INTERVAL HISTORY: Patient is afebrile. The patient is breathing comfortably. Denies having any chest pain. No shortness of breath or cough. No nausea or abdominal pain. No pain in the right lower extremity. PHYSICAL EXAMINATION: Blood pressure 117/65, pulse of 72, temperature 99.1. He is 95% on 2 L nasal cannula. General description is a middle-aged male lying in bed in no distress. Respiratory system: Unlabored breathing, clear to auscultation anteriorly. Heart S1, S2. Regular rate and rhythm. Abdomen is soft, no tenderness. Right leg wound is currently dressed. No obvious drainage on the dressing. LABS: Blood culture negative. DIAGNOSTIC IMPRESSION/PLAN: Right lower extremity wound. No evidence of any cellulitis. Local care to continue with Santyl followed by moist dressing and Andres wrap to keep the swelling down. Continue supportive care. No need for systematic antibiotic therapy. MMODL / IJN: [id number] /
[2021-09-09 04:39] VITALS: PULSE 68
[2021-09-09] MEDS: INSULIN ASPART (NovoLOG) 100 UNIT/ML VIAL SQ SCH ×2 (06:37→12:11)
[2021-09-09] MEDS: PANTOPRAZOLE 40 MG TABLET PO SCH (06:37)
[2021-09-09 06:38] LABS: Glucose,Whole Blood 109 mg/dL (75-99)
[2021-09-09] MEDS: IPRATROPIUM-ALBUTEROL 3 ML NEB INHALATION SCH ×2 (07:50→11:46)
[2021-09-09 08:44] LABS: Calcium 7.7 mg/dL (8.4-10.2); Magnesium 2.2 mg/dL (1.6-2.3); Potassium 4.7 mmol/L (3.5-5.1)
--- NOTE | 2021-09-09 09:41 | P.PN ---
Subjective Patient is seen in follow-up for chronic kidney disease. Patient has chronic kidney disease stage IV with creatinine in the range of 3-4. Renal function worse today. He is maintained on oral torsemide. Good urine output. Oral intake fair. Diarrhea resolved. Edema improving. No active complaints. Vital signs are stable. General: The patient appeared well nourished and normally developed. HEENT: Head exam is unremarkable. LUNGS: Breath sounds decreased. HEART: Rate and Rhythm are regular. ABDOMEN: Soft, no distention. EXTREMITITES: 1+ edema. Lower extremity is wrapped. Objective - Vital Signs Vital signs: Vital Signs Temp 97.7 F 09/09/21 04:00 Pulse 68 09/09/21 04:00 Resp 20 09/09/21 04:00 BP 112/55 09/09/21 04:00 Pulse Ox 91 L 09/09/21 04:00 Intake & Output 09/08/21 09/09/21 09/09/21 18:59 06:59 18:59 Intake Total 700 Output Total 325 400 Balance 375 -400 Weight 96.4 kg Intake: Oral 700 Output: Urine 325 400 Other: Voiding Method Urinal Urinal # Voids 1 # Bowel Movements 1 - Labs CBC & Chem 7: 09/02/21 15:15 09/09/21 07:51 Labs: Abnormal Lab Results - Last 24 Hours (Table) 09/08/21 09/08/21 09/08/21 Range/Units 06:52 11:42 13:25 Sodium (137-145) mmol/L Chloride (98-107) mmol/L BUN (9-20) mg/dL Creatinine (0.66-1.25) mg/dL Glucose (74-99) mg/dL POC Glucose (mg/dL) 167 H 179 H (75-99) mg/dL Calcium (8.4-10.2) mg/dL Procalcitonin 0.90 H (0.02-0.09) ng/mL 09/08/21 09/08/21 09/09/21 Range/Units 16:54 20:01 06:36 Sodium (137-145) mmol/L Chloride (98-107) mmol/L BUN (9-20) mg/dL Creatinine (0.66-1.25) mg/dL Glucose (74-99) mg/dL POC Glucose (mg/dL) 214 H 384 H 109 H (75-99) mg/dL Calcium (8.4-10.2) mg/dL Procalcitonin (0.02-0.09) ng/mL 09/09/21 Range/Units 07:51 Sodium 134 L (137-145) mmol/L Chloride 97 L (98-107) mmol/L BUN 106 H* (9-20) mg/dL Creatinine 3.44 H (0.66-1.25) mg/dL Glucose 110 H (74-99) mg/dL POC Glucose (mg/dL) (75-99) mg/dL Calcium 7.7 L (8.4-10.2) mg/dL Procalcitonin (0.02-0.09) ng/mL Microbiology - Last 24 Hours (Table) 09/02/21 16:45 Blood Culture - Final Blood No Growth after 144 hours 09/02/21 17:00 Blood Culture - Final Blood No Growth after 144 hours Assessment and Plan Plan: Assessment: 1. Chronic kidney disease stage IV with baseline creatinine in the range of 3-4 secondary to cardiorenal syndrome diabetic kidney disease. Renal function worse today. Creatinine 3.44. BUN 106. 2. Volume overload. Improving with diuresis. 3. Acute on chronic diastolic CHF with mild to moderate aortic regurgitation. 4. Hyperkalemia secondary to chronic kidney disease and hyperglycemia. Improved. 5. Hypertension with chronic kidney disease. Stable. 6. Hyponatremia secondary to chronic disease. Hypervolemic. Also component of hyperglycemia. Better. Plan: Hold torsemide today. Resume tomorrow at dose of 20 mg daily. 1200 mL fluid restriction. Continue to monitor renal function and urine output.
[2021-09-09] MEDS: TORSEMIDE 20 MG TAB PO SCH (10:10)
[2021-09-09] MEDS: BACLOFEN 10 MG TAB PO PRN (10:20)
[2021-09-09] MEDS: ACETAMINOPHEN TAB 325 MG TAB PO PRN (10:21)
[2021-09-09] MEDS: ATORVASTATIN 40 MG TAB PO SCH (10:21)
[2021-09-09] MEDS: amLODIPine 5 MG TAB PO SCH (10:22)
[2021-09-09] MEDS: ASPIRIN 81 MG PO SCH (10:22)
[2021-09-09] MEDS: DULoxetine HCL 60 MG CAPSULE.DR PO SCH (10:22)
[2021-09-09] MEDS: ISOSORBIDE MONONITRATE ER 30 MG TAB.ER.24H PO SCH (10:22)
[2021-09-09] MEDS: METOPROLOL TARTRATE 50 MG TAB PO SCH (10:22)
--- NOTE | 2021-09-09 11:33 | P.PN ---
Subjective Progress Note Date: 09/09/21 Principal diagnosis: Shortness of breath. 09/04/2021, the patient remains on IV Lasix. Exact amount of urine output is not clearly documented in the records. No significant shortness of breath. The patient is still on oxygen at 6 L per minute with a pulse ox of 91%. Afebrile. Hemodynamically stable. No worsening shortness of breath. Blood work from today shows a BUN of 79 with a creatinine of 3.1, potassium is at 4.8 with a sodium level of 134. The patient is receiving Lasix and this was switched from Lasix IV push daily Lasix drip at 10 mg an hour. He is on Levemir insulin 14 units along with a sliding scale coverage. 09/05/2021, the patient resting comfortably in bed on Lasix drip at 10 mg an hour. Doing well. Negative fluid balance. No C. diff and shortness of breath. Blood work was noted and the patient has a BUN of 81 with a creatinine 3.02, sodium is at 132. Oxygenation is improved. The patient is currently down to 40s about 2 by nasal cannula and the pulse ox is around 96%. No angina. No palpitation. Afebrile. Hemodynamically stable. Nephrology is on the case. Progress note dated 09/06/2021. The patient is again seen in room 353. The patient's not receiving any IV fluids. The patient is on 3 L nasal cannula. The patient does have some lower extremity edema. Overall, the patient's doing much better. Lab data includes a sodium 132, potassium 4.6, chlorides 97, CO2 26, anion gap 9, BUN 87, and creatinine 3.03. Magnesium is 2.1. Chest x-ray from September 05 reveals mild scattered infiltrates, greatest in the left midlung, which are improved. Progress note dated 09/07/2021. The patient is again seen in room 353. He's currently on 3 L nasal cannula. He's not receiving IV fluids. Initially when I came to the room, he was laying on his left side, completely flat in bed, without any respiratory distress or difficulty. Sodium 132, potassium 4.3, chlorides 98, CO2 27, anion gap 7, BUN 95, and creatinine 2.99. Progress note dated 09/08/2021. 51-year-old male, again seen in room 353. The patient's currently on 2 L nasal cannula. The patient is not receiving any IV fluids. The patient is feeling better. He is much less short of breath. He's able to lay flat in bed, without any respiratory difficulty. Labs today include a sed rate of 87, a glucose of 167, C-reactive protein of 4.6, and a pro-calcitonin level of 0.9. Blood cultures are thus far negative. Progress note dated 09/09/2021. This is a 51-year-old male, who is again seen in room 353. He's been in the hospital now for 7 days. The patient is currently on 2 L nasal cannula. He's not receiving any IV fluids. The patient is apparently being evaluated for possible discharge to [facility] today. No final decision has been made. The patient's currently resting comfortably. He is laying flat in bed, without any respiratory difficulty or distress. Current laboratory data includes a sodium 134, potassium 4.7, chlorides 97, CO2 29, anion gap 8, BUN 106, and creatinine 3.44. Calcium is 7.7. Magnesium 2.2. Blood cultures are negative. Objective - Vital Signs Vital signs: Vital Signs Temp 97.7 F 09/09/21 04:00 Pulse 68 09/09/21 04:00 Resp 20 09/09/21 04:00 BP 112/55 09/09/21 04:00 Pulse Ox 91 L 09/09/21 04:00 Intake & Output 09/08/21 09/09/21 09/09/21 18:59 06:59 18:59 Intake Total 700 118 Output Total 325 400 Balance 375 -400 118 Weight 96.4 kg Intake: Oral 700 118 Output: Urine 325 400 Other: Voiding Method Urinal Urinal # Voids 1 # Bowel Movements 1 - Exam No acute distress, oriented 3. No clearcut respiratory distress, or conversational dyspnea. The patient's currently on 2 L. HEENT examination is grossly unremarkable. Mucous membranes are moist. No oral lesions. Neck supple. Full range of motion. No adenopathy thyromegaly or neck vein distention. Cardiovascular examination reveals regular rhythm rate. S1-S2 normal. No S3 or S4. No discernible murmur noted. Heart rate 71 bpm. Lungs reveal mild rhonchi and mild basilar crackles. Breath sounds are improved. Breath sounds are equal bilaterally. There are no wheezes. 2 L saturations are 93%. On room air, saturations are 91%.. Abdomen soft bowel sounds are heard. No masses or tenderness. Extremities are intact. No cyanosis or clubbing. Edema is noted. It is 1+. Lower extremity edema is improved. Skin is very dry. Neurologic examination is brief but nonfocal. - Labs CBC & Chem 7: 09/02/21 15:15 09/09/21 07:51 Labs: Abnormal Lab Results - Last 24 Hours (Table) 09/08/21 09/08/21 09/08/21 Range/Units 11:42 13:25 16:54 Sodium (137-145) mmol/L Chloride (98-107) mmol/L BUN (9-20) mg/dL Creatinine (0.66-1.25) mg/dL Glucose (74-99) mg/dL POC Glucose (mg/dL) 167 H 179 H 214 H (75-99) mg/dL Calcium (8.4-10.2) mg/dL 09/08/21 09/09/21 09/09/21 Range/Units 20:01 06:36 07:51 Sodium 134 L (137-145) mmol/L Chloride 97 L (98-107) mmol/L BUN 106 H* (9-20) mg/dL Creatinine 3.44 H (0.66-1.25) mg/dL Glucose 110 H (74-99) mg/dL POC Glucose (mg/dL) 384 H 109 H (75-99) mg/dL Calcium 7.7 L (8.4-10.2) mg/dL Microbiology - Last 24 Hours (Table) 09/02/21 16:45 Blood Culture - Final Blood No Growth after 144 hours 09/02/21 17:00 Blood Culture - Final Blood No Growth after 144 hours Assessment and Plan Assessment: Acute hypoxemic respiratory failure, secondary to diastolic CHF. Recent episode of coronavirus associated pneumonia, hospitalized at [facility]. Stage IV chronic kidney disease. History of aortic valve endocarditis. History of recurrent methicillin-resistant staph aureus infection. Diabetes mellitus. Diabetic neuropathy. Diabetic retinopathy. Hypertension. Hyperlipidemia. COPD. Medication noncompliance. Mild hyperkalemia. Plan: Plan dated 09/06/2021. The patient has been weaned down to 3 L. The patient's Lasix drip has been discontinued. The patient is not receiving any IV fluids. There are basilar crackles on examination, and some lower extremity edema. We will continue to follow. X-rays, labs, and medications are reviewed. Additional recommendations and suggestions are forthcoming. We will continue to follow make recommendations where appropriate. Prognosis is guarded. Plan dated 09/07/2021. The patient has been weaned down to 2 L nasal cannula. He appears very comfortable. We will continue to follow make recommendations where appropriate. Labs, x-rays, and medications are all reviewed. Previous x-rays are reviewed. He appears in no acute distress. He is able to lie flat in bed. Prognosis is guarded. Plan dated 09/08/2021. The patient has been weaned on 2 L. The patient is not having any respiratory issues whatsoever. Labs, medications, and x-rays are all reviewed. From the pulmonary standpoint, the patient could be considered for possible discharge. We will leave that up to the primary. No additional recommendations are made. Prognosis is guarded. Plan dated 09/09/2021. The patient has been weaned down to 2 L nasal cannula. On room air, her saturations are 91%. They do decline to below 90% when he exerts himself. Labs, medications, and x-rays are all reviewed. On the pulmonary standpoint, the patient is stable for discharge. There is some talk, the patient could be discharged to [facility] today. No final decision has been made. We will continue to follow and make recommendations where appropriate. Prognosis is guarded. From the pulmonary standpoint, the patient should be discharged on albuterol sulfate and ipratropium bromide, breathing treatments, 4 times a day. Time with Patient: Less than 30
[2021-09-09 11:47] LABS: Glucose,Whole Blood 144 mg/dL (75-99)
[2021-09-09 12:06] VITALS: BP 117/75; RESP 18; TEMP 98.9
[2021-09-09] MEDS: MUPIROCIN 2% OINT 22 GM TUBE TOPICAL SCH (12:10)
--- NOTE | 2021-09-09 12:54 | EEG ---
ELECTROENCEPHALOGRAM REPORT DATE OF SERVICE: 09/09/2021. This is a 51-year-old gentleman who has altered mental status and myoclonic jerks. The video EEG is obtained to evaluate for seizure epileptiform activity. EEG TYPE: A routine 21 channel EEG is performed with video using the 10/20 electrode placement system. RELEVANT MEDICATION: The patient is not on any antiepileptic drugs. DESCRIPTION: Awake and drowsy state obtained. During awake state, the background consists of 6-7 hertz activity. Rarely to occasionally, the patient has background of non- rhythmic delta activity. There is no physiological stage 2 sleep architecture. There is no focal slowing. Interictal and ictal is negative. ACTIVATION PROCEDURE: Photic stimulation and hyperventilation is not performed. CLINICAL INTERPRETATION: This is an abnormal routine EEG. The background slowing is suggestive of mild to moderate encephalopathy likely due to toxic-metabolic etiology. There are no focal slowing, epileptiform discharge or seizure on the EEG. Clinical correlation is recommended. ADAM / SELVIN: [id number] / MTDD
--- NOTE | 2021-09-09 13:21 | P.PN ---
Subjective Progress Note Date: 09/09/21 The patient is seen at bedside and per nurse, he has worsening of his kidney function otherwise he is about the same. Patient was accompanied by his girlfriend and his mother and they stated that patient is doing better today compared to yesterday. They stated that patient is able to sit up today which he was not doing that yesterday and has less jerks of his body. Patient was sitting in the bed and having his lunch upon seeing him without support. Otherwise denies any new neurological problems. Objective - Vital Signs Vital signs: Vital Signs Temp 97.7 F 09/09/21 04:00 Pulse 68 09/09/21 04:00 Resp 20 09/09/21 04:00 BP 112/55 09/09/21 04:00 Pulse Ox 91 L 09/09/21 04:00 Intake & Output 09/08/21 09/09/21 09/09/21 18:59 06:59 18:59 Intake Total 700 118 Output Total 325 400 Balance 375 -400 118 Weight 96.4 kg Intake: Oral 700 118 Output: Urine 325 400 Other: Voiding Method Urinal Urinal # Voids 1 # Bowel Movements 1 - Exam GENERAL: The patient is sitting and having his lunch. He is not in acute distress. NEUROLOGICAL: Higher mental function: The patient is awake, alert, oriented to self, place and time. Patient is following simple commands. No aphasia and no neglect. Cranial nerves: The pupils are round, equal and reactive to light and accommodation. Visual manzo could not be asses because of his history of rentinopathy.. Extraocular movement is intact no nystagmus is noted. Facial sensation is normal to touch throughout. The facial strength is normal throughout. Hearing is mildly decrease bilaterally to hand rub. Tongue is midline and moved [id number] without any difficulty. No dysarthria is noted. Shoulder shrug is normal bilaterally. Motor: The strength is 5 over 5 throughout uppers. The lower is limited because of pain but is able to lift above gravity over left lower extremity while right he is able to bend his knee (limited because of hip pain). Normal tone and bulk in uppers. Has atrophy over thenar. Left lower has guage wrapped below left k nee. Cerebellum: Normal finger to nose bilaterally. Had myoclonic jerks extending arms out. Sensation: Sensation is normal to touch throughout. Plantars are downgoing bilaterally. WORK-UP: Patient white blood cell was 19.6 on 09/02/2021 and is predominantly neutrophilic and has not had any repeated the CBC repeated. His BUN is 106 and the most recent creatinine is 3.44. His POC glucose has been in the range of 100s to 380 AST is 47 ALTs 28. Walsh virus PCR was not detected CT of the head is reported as stable exam. No acute brain abnormality. Sinus disease. I personally reviewed the CT of the head and there is no acute or subacute ischemia and there is no at proximal hemorrhage. I do not appreciate any the encephalomalacia. - Labs CBC & Chem 7: 09/02/21 15:15 09/09/21 07:51 Labs: Abnormal Lab Results - Last 24 Hours (Table) 09/08/21 09/08/21 09/08/21 Range/Units 06:52 11:42 13:25 Sodium (137-145) mmol/L Chloride (98-107) mmol/L BUN (9-20) mg/dL Creatinine (0.66-1.25) mg/dL Glucose (74-99) mg/dL POC Glucose (mg/dL) 167 H 179 H (75-99) mg/dL Calcium (8.4-10.2) mg/dL Procalcitonin 0.90 H (0.02-0.09) ng/mL 09/08/21 09/08/21 09/09/21 Range/Units 16:54 20:01 06:36 Sodium (137-145) mmol/L Chloride (98-107) mmol/L BUN (9-20) mg/dL Creatinine (0.66-1.25) mg/dL Glucose (74-99) mg/dL POC Glucose (mg/dL) 214 H 384 H 109 H (75-99) mg/dL Calcium (8.4-10.2) mg/dL Procalcitonin (0.02-0.09) ng/mL 09/09/21 Range/Units 07:51 Sodium 134 L (137-145) mmol/L Chloride 97 L (98-107) mmol/L BUN 106 H* (9-20) mg/dL Creatinine 3.44 H (0.66-1.25) mg/dL Glucose 110 H (74-99) mg/dL POC Glucose (mg/dL) (75-99) mg/dL Calcium 7.7 L (8.4-10.2) mg/dL Procalcitonin (0.02-0.09) ng/mL Microbiology - Last 24 Hours (Table) 09/02/21 16:45 Blood Culture - Final Blood No Growth after 144 hours 09/02/21 17:00 Blood Culture - Final Blood No Growth after 144 hours Assessment and Plan Assessment: Altered mental status due to multifactorial hypoxic encephalopathy and toxic- metabolic encephalopathy (had episode of hypoglycemia during this hospital stay as low in 30's-40's)---currently mentation seems appropriate. 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 * Regarding mother concern of left upper extremity weakness, per nurse there is no weakness and on my examination no weakness of uppers and does not appear like stroke. CT of the head is ordered by the primary team is pending * Q4 hour neuro checks * Home Gabapentin 100mg 1 tab tid is not started which I agree which can cause worsening of his myoclonic jerks. * PT and OT are consulted * Infection disease is on board * Nephrology is on board * Pulmonology team is on board * Recommend the patient to follow-up with cardiology team regarding the positive tilt table test in past. * Please avoid any further hypoglycemia events and will defer management to primary team. * We'll defer the rest of medical management to the primary team. * Upon discharge, the patient needs to follow-up with his neurologist (Dr. Woodall) as outpatient within 1-2 weeks. The plan is discussed with the patient's nurse and his mother who is at bedside. Otherwise no other neurological work-up at this time. Franklin Long M.D. Neuro-Hospitalist Time with Patient: Less than 30
--- NOTE | 2021-09-09 13:48 | P.DS ---
Providers Date of admission: 09/02/21 18:03 Expected date of discharge: 09/09/21 Attending physician: Armando Pablo Consults: 09/03/21 09:46 Consult Physician Routine Consulting Provider: Gareth Quezada Consult Reason/Comments: hyperkalemia Do you want consulting provider notified?: Yes 09/03/21 09:49 Consult Physician Routine Consulting Provider: Anthony Maurice Consult Reason/Comments: pneumonia Do you want consulting provider notified?: Yes 09/04/21 20:20 Consult Physician Routine Consulting Provider: Nathen Orona Consult Reason/Comments: New onset right sided hip pain Do you want consulting provider notified?: Yes, Notify in am 09/05/21 18:17 Consult Physician Routine Consulting Provider: Shaan Brown Consult Reason/Comments: Lower extremity wounds Do you want consulting provider notified?: Yes 09/08/21 14:04 Consult Physician Routine Consulting Provider: Franklin Long Consult Reason/Comments: altered mental status Do you want consulting provider notified?: Yes Primary care physician: Meet [facility] Course: Chief Complaint: Short of breath History of presenting complaint This is a very pleasant 51-year-old patient, chronic stable medical conditions include diabetes mellitus type 2, peripheral neuropathy, hyperlipidemia patient has chronic lower extremity leg wounds. Autonomic dysfunction from diabetes. Causing orthostatics. Patient now presents with episodes of falling down. He states that these happens intermittently. The current episode patient was satting in the kitchen [facility] and his legs and he felt weak and then he went down to the ground. no chest pain or palpitation. He does often get dizzy on standing up. No seizure activity. No focal weakness. Appetite is good. No fever no chills. Patient now presents for short of breath for 2 days. Some cough with green sputum. Also developed some vomiting. Also had some diarrhea. Decreased appetite. There had been some chills. Increasing lower extremity edema. Last bowel movement was yesterday. Last vomiting was yesterday the ER. Patient is accompanied by his girlfriend. Seen earlier by nephrology given IV Lasix. September 04: Breathing a bit better. Sitting at edge of the bed. Slight decrease in edema. Tolerating full liquid. Gets full easily. No diarrhea. No vomiting. Lasix drip. Making good urine. September 05: Breathing improving. Sitting at edge of the bed. Lasix drip. Eating close to 75%. Andres wrap lower extremity. Mother and girlfriend at the bedside. Complaint of hip pain last night. X-rays ordered. Consulted orthopedics. September 06: Breathing better. Taken off Lasix drip. Started on torsemide 40 mg. Oral intake fair. September 07: Breathing is better. On oral Demadex. Patient now being evaluated for inpatient rehab. production staff worker/case management specialist is working on the same. Discharged when bed available. September 08: Pulse ox 96% on 2 L this morning. Eating well. Diet. Breathing is stable. Patient was to be discharged to the [facility]. Family is concerned and feels that his neurological status is unchanged. Patient did not complain of any focal or new weakness. He simply look tired. Neurology consultation is being initiated. Computed tomography scan of the brain ordered. September 09: Patient sitting up. Family at the bedside. Neurontin was discontinued yesterday. Eating well. Questions were answered of the family. Cleared by neurology. Dose of torsemide cutback. Discussion and discharge planning more than 35 minutes Consultation: Dr. Long from neurology Nephrology Dr. Orona from orthopedics Dr. Faulkner in part because from pulmonary Past medical history to include: Diabetes, hyperlipidemia, peripheral neuropathy, MRSA infection including abscess and cellulitis,, anxiety, diabetic autonomic dysfunction Social history: Patient lives with his 2 children. Previously did [employer]. Smoking 2 packs a day for 32 years. , Stopped less than a year ago. Alcohol occasionally. Physical examination: VITAL SIGNS: 98.9, 68, 18, 117/75, 94% on 2 L GENERAL: Sitting up, comfortable EYES: Pupils equal. Conjunctiva normal. HEENT: External appearance of nose and ears normal, oral cavity grossly normal. NECK: JVD not raised; masses not palpable. HEART: First and second heart sounds are normal; decrease edema LUNGS: Respiratory rate normal, decreased breath sounds. ABDOMEN: Soft, nontender, liver spleen not palpable, no masses palpable. PSYCH: Answering questions appropriately sleepy NEUROLOGICAL: No focal weakness DERMATOLOGICAL: Wounds of the lower extremity. See nursing notes. INVESTIGATIONS, reviewed in the clinical context: September 09: Potassium 4.7 BUN 106 creatinine 3.44 September 08: ESR 87 CRP 4.6 procalcitonin 0.90 September 07: Sodium 132 potassium 4.3 BUN 95 creatinine 2.99 September 06: Sodium 132 potassium 4.6 BUN 87 creatinine 3.03 September 05: Sodium 132 potassium 4.9 BUN 81 creatinine 3.02 Chest x-ray film personally reviewed by me-[September 05]: Pulmonary edema. Right hip x-ray film personally reviewed by me: Evidence of OA. September 04: Potassium 4.8 BUN 79 creatinine 3.13 White count 19.6 hemoglobin 10.7 platelets 313 potassium 5.9 BUN 83 creatinine 3.14 Chest x-ray film personally reviewed by me-pulmonary edema EKG tracing personally reviewed by me-normal sinus rhythm. Nonspecific T-wave changes. Pro-calcitonin 1.7 to Coronavirus [PCR]: Not detected Previous labs: March 2021: BUN 55 creatinine 4.136 Assessment and plan: --Acute on Chronic congestive heart failure from diastolic dysfunction EF 50-5 5%: Stable Received Lasix drip at 10 mg an hour-discontinued. Demadex 20 mg -Acute gastroenteritis, likely viral.: Corrected Soft bland diet -Chronic autonomic dysfunction from diabetes- Fall precautions -Chronic stable angina with a prior history of positive nuclear stress test. Imdur ER 30 mg a day -Chronic lower extremity wounds. Continue wound care. -Essential hypertension Amlodipine 5 mg twice a day Lopressor 50 mg twice a day -Secondary pulmonary hypertension due to CHF Follow clinically -Diabetes mellitus type 2 chronically on insulin , uncontrolled with hypoglycemia and hyperglycemia Diabetic diet Follow Accu-Cheks. Decrease Levemir to 18 units at night. -Diabetic peripheral neuropathy Neurontin discontinued. 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 X-ray shows evidence of OA. Orthopedics/Dr. Orona consulted. CT right hip shows OA. MRI of the hip shows osteoarthritis. Disposition: [facility] Plan - Discharge Summary Discharge Rx Participant: No New Discharge Prescriptions: New Ipratropium-Albuterol Nebulize [Duoneb 0.5 mg-3 mg/3 ml Soln] 3 ml INHALATION BID #60 ml Collagenase [Santyl Ointment] 1 applic TOPICAL DAILY gm Torsemide [Demadex] 20 mg PO DAILY #1 tablet Baclofen [Lioresal] 5 mg PO Q8H PRN #30 tab PRN Reason: Muscle Spasm Continue DULoxetine HCL [Cymbalta] 60 mg PO DAILY Acetaminophen Tab [Tylenol] 650 mg PO Q4H PRN PRN Reason: Mild Pain Or Fever > 100.5 Atorvastatin [Lipitor] 40 mg PO DAILY #30 tab Isosorbide Mononitrate ER [Imdur] 30 mg PO DAILY #30 tab.er.24h rOPINIRole HCL [Requip] 0.25 mg PO HS Ozempic 4mg/3ml 4 mg SQ TU Omeprazole [PriLOSEC] 40 mg PO DAILY Metoprolol Tartrate [Lopressor] 50 mg PO BID 30 Days #60 tab Aspirin 81 mg PO DAILY #30 chewable Insulin Aspart Protam & Aspart [NovoLOG MIX 70-30 Flexpen] See Protocol SQ ACHS amLODIPine [Norvasc] 5 mg PO BID Mupirocin 2% Oint [Bactroban 2% Oint] 1 applic TOPICAL TID Discontinued Furosemide [Lasix] 80 mg PO BID@0900,1600 #60 tab Gabapentin [Neurontin] 100 mg PO TID #12 cap Discharge Medication List DULoxetine HCL [Cymbalta] 60 mg PO DAILY 04/01/20 [History] Acetaminophen Tab [Tylenol] 650 mg PO Q4H PRN 07/25/20 [History] Atorvastatin [Lipitor] 40 mg PO DAILY #30 tab 10/13/20 [Rx] Metoprolol Tartrate [Lopressor] 50 mg PO BID 30 Days #60 tab 01/14/21 [Rx] Aspirin 81 mg PO DAILY #30 chewable 01/18/21 [Rx] Isosorbide Mononitrate ER [Imdur] 30 mg PO DAILY #30 tab.er.24h 02/11/21 [Rx] Insulin Aspart Protam & Aspart [NovoLOG MIX 70-30 Flexpen] See Protocol SQ ACHS 09/02/21 [History] Omeprazole [PriLOSEC] 40 mg PO DAILY 09/02/21 [History] Ozempic 4mg/3ml 4 mg SQ TU 09/02/21 [History] amLODIPine [Norvasc] 5 mg PO BID 09/02/21 [History] rOPINIRole HCL [Requip] 0.25 mg PO HS 09/02/21 [History] Mupirocin 2% Oint [Bactroban 2% Oint] 1 applic TOPICAL TID 09/04/21 [History] Baclofen [Lioresal] 5 mg PO Q8H PRN #30 tab 09/07/21 [Rx] Ipratropium-Albuterol Nebulize [Duoneb 0.5 mg-3 mg/3 ml Soln] 3 ml INHALATION BID #60 ml 09/07/21 [Rx] Collagenase [Santyl Ointment] 1 applic TOPICAL DAILY gm 09/08/21 [Rx] Torsemide [Demadex] 20 mg PO DAILY #1 tablet 09/09/21 [Rx] Follow up Appointment(s)/Referral(s): [facility], [NON-STAFF] - Meet Fontanez DO [Primary Care Provider] - 1-2 days Rito Christine DO [STAFF PHYSICIAN] - 10 Days Patient Instructions/Handouts: Heart Failure (DC), Pneumonia (DC) Activity/Diet/Wound Care/Special Instructions: fluid restrict 1200 cc/day wound care per dr brown
--- NOTE | 2021-09-09 14:33 | PN ---
PROGRESS NOTE DATE OF SERVICE: 09/09/2021 REASON FOR FOLLOWUP: Right lower extremity wound. INTERVAL HISTORY: The patient is afebrile. He is breathing comfortably. Denies having any chest pain or cough. No abdominal pain or worsening to the right leg. PHYSICAL EXAMINATION: Blood pressure 113/75 with a pulse of 68. Temperature is 98.9. He is 94% on 2 L nasal cannula. General description is a middle-aged male up in the bed in no distress. Respiratory system: Unlabored breathing, decreased intensity of the breath sounds. Right lower extremity multiple wounds with slough tissue on the right. Swelling and redness, no drainage. LABS: Creatinine 3.44. DIAGNOSTIC IMPRESSION AND PLAN: Patient with right lower extremity wound. No evidence of cellulitis. Recommend local wound care with Santyl followed by moist dressing to be changed daily and Andres wrap to the leg to keep the swelling down. MMODL / IJN: [id number] /
== END 2021-09-09 15:16 | DRG 291 ==
LOC: EC 13:08 → 3SCARD 18:03
PROVIDERS: ADMIT Hospitalist; ATTEND Hospitalist
DX: I13.0 Hypertensive heart and chronic kidney disease with heart failure and stage 1 through stage 4 chronic kidney disease, or unspecified chronic kidney disease (principal); I50.33 Acute on chronic diastolic (congestive) heart failure; J96.01 Acute respiratory failure with hypoxia; G92.8 Other toxic encephalopathy; E87.1 Hypo-osmolality and hyponatremia; J44.0 Chronic obstructive pulmonary disease with (acute) lower respiratory infection; N18.4 Chronic kidney disease, stage 4 (severe); G93.1 Anoxic brain damage, not elsewhere classified; Z20.822 Contact with and (suspected) exposure to COVID-19; E11.22 Type 2 diabetes mellitus with diabetic chronic kidney disease; M16.11 Unilateral primary osteoarthritis, right hip; I27.29 Other secondary pulmonary hypertension; I35.1 Nonrheumatic aortic (valve) insufficiency; D63.1 Anemia in chronic kidney disease; E11.319 Type 2 diabetes mellitus with unspecified diabetic retinopathy without macular edema; E11.42 Type 2 diabetes mellitus with diabetic polyneuropathy; E11.65 Type 2 diabetes mellitus with hyperglycemia; E11.649 Type 2 diabetes mellitus with hypoglycemia without coma; E78.5 Hyperlipidemia, unspecified; E87.5 Hyperkalemia; F41.9 Anxiety disorder, unspecified; I20.8 Other forms of angina pectoris; R29.6 Repeated falls; A08.4 Viral intestinal infection, unspecified; Z86.14 Personal history of Methicillin resistant Staphylococcus aureus infection; Z79.4 Long term (current) use of insulin; Z79.82 Long term (current) use of aspirin; Z79.899 Other long term (current) drug therapy; Z91.14 Patient's other noncompliance with medication regimen; Z83.3 Family history of diabetes mellitus; Z86.79 Personal history of other diseases of the circulatory system; Z87.891 Personal history of nicotine dependence; Z87.01 Personal history of pneumonia (recurrent)
CPT/HCPCS: 36415; 70450; 71046; 73502; 80048; 80053; 83735; 83880; 84100; 84145; 84484; 85025; 85610; 85652; 85730; 86140; 87040; 87635; 93005; 94640; 94760; 95816; 96365; 96367; 96375; 99285

== ENCOUNTER 2021-09-22 13:06 | Inpatient (IN) | payer OTHER ==
[2021-09-22 14:35] LABS: INR 1.3 (<1.2); Partial Thromboplastin Time 25.7 sec (22.0-30.0)
[2021-09-22 14:38] LABS: Anisocytosis Slight; Basophils # (A) 0.1 k/uL (0-0.2); Basophils % (A) 1 %; Eosinophils # (A) 0.2 k/uL (0-0.7); Eosinophils % (A) 2 %; HCT 26.7 % (39.0-53.0); Hypochromasia Slight; Lymphocytes # (A) 0.8 k/uL (1.0-4.8); Lymphocytes % (A) 9 %; MCH 28.4 pg (25.0-35.0); MCHC 32.1 g/dL (31.0-37.0); MCV 88.5 fL (80.0-100.0); Mean Platelet Volume 8.3; Monocytes # (A) 0.4 k/uL (0-1.0); Monocytes % (A) 5 %; Neutrophils # (A) 7.5 k/uL (1.3-7.7); Neutrophils % (A) 82 %; Platelet Count 302 k/uL (150-450); RBC 3.02 m/uL (4.30-5.90); RDW 16.7 % (11.5-15.5); WBC 9.2 k/uL (3.8-10.6)
[2021-09-22 14:39] LABS: HGB 8.6 gm/dL (13.0-17.5)
[2021-09-22 14:50] LABS: Albumin 2.6 g/dL (3.5-5.0); Calcium 7.8 mg/dL (8.4-10.2); Magnesium 2.2 mg/dL (1.6-2.3); Potassium 4.2 mmol/L (3.5-5.1); Total Bilirubin 0.8 mg/dL (0.2-1.3); Total Protein 7.7 g/dL (6.3-8.2)
--- NOTE | 2021-09-22 14:53 | ED ---
General Adult HPI - General Source: patient, EMS, RN notes reviewed, old records reviewed Mode of arrival: EMS Limitations: no limitations <Torres Hutchins - Last Filed: 09/22/21 14:47> <Vishal He - Last Filed: 09/22/21 16:03> - General Chief complaint: Shortness of Breath Stated complaint: Abnormal Labs Time Seen by Provider: 09/22/21 13:30 - History of Present Illness Initial comments: 51 yo male presenting for evaluation of dyspnea, hypoxia, abdominal swelling. Patient has history of CHF, chronic kidney disease, coronary artery disease. Patient is presenting from the intermediate with increased oxygen requirements as well as increased abdominal swelling. He states that his doctor sent him in for IV diuresis. No active chest pain. No fever. No cough. (Torres Hutchins) Patient care was signed out to me by previous shift physician, Dr. Sullivan. Patient's 51-year-old male lives in a intermediate. He was brought to the emergency department for shortness of breath. Shortness of breath is associated with swelling throughout his body. He has history of heart failure and renal disease. Patient allegedly had some hypoxic episodes at the intermediate. His oxygen requirements increased. He normally wears 4 L at home. He was sent in by intermediate physician for IV diuresis. Patient was evaluated at the bedside at 4:00 PM. Patient is not showing any significant signs of dyspnea at this time. He does have pitting edema from his abdomen to his lower extremities. Maintaining adequate saturations 96%. Although patient is not showing any severe symptoms given his medical history patient be admitted observation. Case discussed with Dr. Johns. Patient was given Lasix. His labs show stable hemoglobin 8.6. Coag panel is negative. Metabolic panel shows creatinine 3.03. Patient's creatinine is appears to be improved from his baseline. Brain natruretic peptide is 22,000. Chest x-ray shows CHF. (Vishal He) - Related Data Home Medications Medication Instructions Recorded Confirmed DULoxetine HCL [Cymbalta] 60 mg PO DAILY 04/01/20 09/02/21 Acetaminophen Tab [Tylenol] 650 mg PO Q4H PRN 07/25/20 09/02/21 Insulin Aspart Protam & Aspart See Protocol SQ ACHS 09/02/21 09/02/21 [NovoLOG MIX 70-30 Flexpen] Omeprazole [PriLOSEC] 40 mg PO DAILY 09/02/21 09/02/21 Ozempic 4mg/3ml 4 mg SQ TU 09/02/21 09/02/21 amLODIPine [Norvasc] 5 mg PO BID 09/02/21 09/02/21 rOPINIRole HCL [Requip] 0.25 mg PO HS 09/02/21 09/02/21 Mupirocin 2% Oint [Bactroban 2% 1 applic TOPICAL TID 09/04/21 09/04/21 Oint] Previous Rx's Medication Instructions Recorded Atorvastatin [Lipitor] 40 mg PO DAILY #30 tab 10/13/20 Metoprolol Tartrate [Lopressor] 50 mg PO BID 30 Days #60 tab 01/14/21 Aspirin 81 mg PO DAILY #30 chewable 01/18/21 Isosorbide Mononitrate ER [Imdur] 30 mg PO DAILY #30 tab.er.24h 02/11/21 Baclofen [Lioresal] 5 mg PO Q8H PRN #30 tab 09/07/21 Ipratropium-Albuterol Nebulize 3 ml INHALATION BID #60 ml 09/07/21 [Duoneb 0.5 mg-3 mg/3 ml Soln] Collagenase [Santyl Ointment] 1 applic TOPICAL DAILY gm 09/08/21 Torsemide [Demadex] 20 mg PO DAILY #1 tablet 09/09/21 Allergies Allergy/AdvReac Type Severity Reaction Status Date / Time No Known Allergies Allergy Verified 09/22/21 13:31 Review of Systems ROS Other: All systems not noted in ROS Statement are negative. <Torres Hutchins - Last Filed: 09/22/21 14:47> ROS Other: All systems not noted in ROS Statement are negative. <Vishal He - Last Filed: 09/22/21 16:03> ROS Statement: Those systems with pertinent positive or pertinent negative responses have been documented in the HPI. Past Medical History Past Medical History: Heart Failure, Diabetes Mellitus, Hyperlipidemia, Hypertension, Renal Disease Additional Past Medical History / Comment(s): COVID (vented) IDDM type II, neuropathy bilateral feet, gout, bilateral eye catarct removal, MRSA . History of Any Multi-Drug Resistant Organisms: MRSA Date of last positivie culture/infection: 12/17/20 MDRO Source:: Right Leg Past Surgical History: Cholecystectomy Additional Past Surgical History / Comment(s): I&D scrotal abscess, I&D back abscess Past Anesthesia/Blood Transfusion Reactions: No Reported Reaction Past Psychological History: Anxiety Smoking Status: Former smoker Past Alcohol Use History: None Reported Past Drug Use History: None Reported - Past Family History Mother Family Medical History: Diabetes Mellitus Father History Unknown: Yes <Torres Hutchins - Last Filed: 09/22/21 14:47> General Exam Limitations: no limitations General appearance: alert, in no apparent distress Head exam: Present: atraumatic, normocephalic Eye exam: Present: normal appearance, PERRL ENT exam: Present: normal exam Neck exam: Present: normal inspection. Absent: tenderness, meningismus Respiratory exam: Present: rales, decreased breath sounds. Absent: respiratory distress, wheezes Cardiovascular Exam: Present: regular rate, normal rhythm GI/Abdominal exam: Present: soft, distended. Absent: tenderness, guarding, rebound Extremities exam: Present: pedal edema Neurological exam: Present: alert, oriented X3, CN II-XII intact. Absent: motor sensory deficit Psychiatric exam: Present: normal affect, normal mood Skin exam: Present: warm, dry, intact. Absent: cyanosis, diaphoretic <Torres Hutchins - Last Filed: 09/22/21 14:47> Course <Torres Hutchins - Last Filed: 09/22/21 14:47> Vital Signs 09/22/21 09/22/21 13:16 15:37 Temperature 97.9 F Pulse Rate 85 88 Respiratory 18 16 Rate Blood Pressure 140/70 158/82 O2 Sat by Pulse 90 L 96 Oximetry - Reevaluation(s) Reevaluation #1: 09/22/21 14:53 Patient care signed out To Dr. He. (Torres Hutchins) EKG Findings - EKG Comments: EKG Findings:: EKG: Normal sinus rhythm, low voltage, rate of 85, FL interval 156, QRS duration 106, QTC [address] segment elevation. <Torres Hutchins - Last Filed: 09/22/21 14:47> Medical Decision Making - Lab Data Result diagrams: 09/22/21 14:13 <Torres Hutchins N - Last Filed: 09/22/21 14:47> - Lab Data Result diagrams: 09/22/21 14:13 09/22/21 14:13 <YingElisdorothy Morin - Last Filed: 09/22/21 16:03> - Lab Data Lab Results 09/22/21 09/22/21 09/22/21 Range/Units 14:13 14:13 14:13 WBC 9.2 (3.8-10.6) k/uL RBC 3.02 L (4.30-5.90) m/uL Hgb 8.6 L D (13.0-17.5) gm/dL Hct 26.7 L (39.0-53.0) % MCV 88.5 (80.0-100.0) fL MCH 28.4 (25.0-35.0) pg MCHC 32.1 (31.0-37.0) g/dL RDW 16.7 H (11.5-15.5) % Plt Count 302 (150-450) k/uL MPV 8.3 Neutrophils % 82 % Lymphocytes % 9 % Monocytes % 5 % Eosinophils % 2 % Basophils % 1 % Neutrophils # 7.5 (1.3-7.7) k/uL Lymphocytes # 0.8 L (1.0-4.8) k/uL Monocytes # 0.4 (0-1.0) k/uL Eosinophils # 0.2 (0-0.7) k/uL Basophils # 0.1 (0-0.2) k/uL Hypochromasia Slight Anisocytosis Slight PT 13.0 H (9.0-12.0) sec INR 1.3 H (<1.2) APTT 25.7 (22.0-30.0) sec Sodium 139 (137-145) mmol/L Potassium 4.2 (3.5-5.1) mmol/L Chloride 103 (98-107) mmol/L Carbon Dioxide 27 (22-30) mmol/L Anion Gap 9 mmol/L BUN 89 H (9-20) mg/dL Creatinine 3.03 H (0.66-1.25) mg/dL Est GFR (CKD-EPI)AfAm 27 (>60 ml/min/1.73 sqM) Est GFR (CKD-EPI)NonAf 23 (>60 ml/min/1.73 sqM) Glucose 105 H (74-99) mg/dL Calcium 7.8 L (8.4-10.2) mg/dL Magnesium 2.2 (1.6-2.3) mg/dL Total Bilirubin 0.8 (0.2-1.3) mg/dL AST 40 (17-59) U/L ALT 18 (4-49) U/L Alkaline Phosphatase 433 H (38-126) U/L Troponin I (0.000-0.034) ng/mL NT-Pro-B Natriuret Pep pg/mL Total Protein 7.7 (6.3-8.2) g/dL Albumin 2.6 L (3.5-5.0) g/dL 09/22/21 09/22/21 Range/Units 14:13 14:13 WBC (3.8-10.6) k/uL RBC (4.30-5.90) m/uL Hgb (13.0-17.5) gm/dL Hct (39.0-53.0) % MCV (80.0-100.0) fL MCH (25.0-35.0) pg MCHC (31.0-37.0) g/dL RDW (11.5-15.5) % Plt Count (150-450) k/uL MPV Neutrophils % % Lymphocytes % % Monocytes % % Eosinophils % % Basophils % % Neutrophils # (1.3-7.7) k/uL Lymphocytes # (1.0-4.8) k/uL Monocytes # (0-1.0) k/uL Eosinophils # (0-0.7) k/uL Basophils # (0-0.2) k/uL Hypochromasia Anisocytosis PT (9.0-12.0) sec INR (<1.2) APTT (22.0-30.0) sec Sodium (137-145) mmol/L Potassium (3.5-5.1) mmol/L Chloride (98-107) mmol/L Carbon Dioxide (22-30) mmol/L Anion Gap mmol/L BUN (9-20) mg/dL Creatinine (0.66-1.25) mg/dL Est GFR (CKD-EPI)AfAm (>60 ml/min/1.73 sqM) Est GFR (CKD-EPI)NonAf (>60 ml/min/1.73 sqM) Glucose (74-99) mg/dL Calcium (8.4-10.2) mg/dL Magnesium (1.6-2.3) mg/dL Total Bilirubin (0.2-1.3) mg/dL AST (17-59) U/L ALT (4-49) U/L Alkaline Phosphatase (38-126) U/L Troponin I 0.012 (0.000-0.034) ng/mL NT-Pro-B Natriuret Pep 34371 pg/mL Total Protein (6.3-8.2) g/dL Albumin (3.5-5.0) g/dL Disposition <Torres Hutchins - Last Filed: 09/22/21 14:47> <Vishal He - Last Filed: 09/22/21 16:03> Clinical Impression: Dyspnea, Heart failure Disposition: ADMITTED IP TO THIS HOSP Condition: Fair Referrals: Meet Fontanez DO [Primary Care Provider] - 1-2 days
--- NOTE | 2021-09-22 15:20 | XR ---
EXAMINATION TYPE: XR chest 2V DATE OF EXAM: 09/22/2021 COMPARISON: 09/05/2021 INDICATION: Difficulty breathing TECHNIQUE: Frontal and lateral views of the chest are obtained. FINDINGS: The heart size is mildly prominent. The pulmonary vasculature is prominent. There is a posterior pleural effusion.. IMPRESSION: 1. Cortical consideration for congestive heart failure is recommended. Follow up studies can be perfo rmed.
[2021-09-22] MEDS ORDERED: FUROSEMIDE 10 MG/ML 4 ML VIAL IV STA (16:01)
[2021-09-22] MEDS: FUROSEMIDE 10 MG/ML 4 ML VIAL IV SCH (17:18)
[2021-09-22] MEDS: METOPROLOL TARTRATE 50 MG TAB PO SCH (23:24)
[2021-09-22] MEDS: amLODIPine 5 MG TAB PO SCH (23:25)
[2021-09-22] MEDS: BACLOFEN 10 MG TAB PO PRN (23:25)
[2021-09-23] MEDS: FUROSEMIDE 10 MG/ML 4 ML VIAL IV SCH (04:42)
[2021-09-23 07:06] LABS: African American GFR (CKD) 27 (>60 ml/min/1.73 sqM); Anion Gap 6 mmol/L; Blood Urea Nitrogen 81 mg/dL (9-20); Calcium 7.8 mg/dL (8.4-10.2); Carbon Dioxide 29 mmol/L (22-30); Chloride 104 mmol/L (98-107); Glucose 128 mg/dL (74-99); Non-African American GFR(CKD) 24 (>60 ml/min/1.73 sqM); Sodium 139 mmol/L (137-145)
[2021-09-23] MEDS: ASPIRIN 81 MG PO SCH (07:48)
[2021-09-23] MEDS: ISOSORBIDE MONONITRATE ER 30 MG TAB.ER.24H PO SCH (07:48)
[2021-09-23] MEDS: DULoxetine HCL 60 MG CAPSULE.DR PO SCH (07:48)
[2021-09-23] MEDS: amLODIPine 5 MG TAB PO SCH ×2 (07:49→19:43)
[2021-09-23] MEDS: PANTOPRAZOLE 40 MG TABLET PO SCH (07:49)
[2021-09-23] MEDS: METOPROLOL TARTRATE 50 MG TAB PO SCH ×2 (07:49→19:43)
--- NOTE | 2021-09-23 10:35 | P.NPCON ---
History of Present Illness - Reason for Consult chronic renal failure - History of Present Illness Reason for consultation: Chronic kidney disease History of present illness: Patient is a 51-year-old male seen in consultation for chronic kidney disease. Patient has chronic kidney disease stage IV with baseline creatinine near 3. Etiology is diabetic kidney disease and cardiorenal syndrome. Patient presented to the hospital from rehab facility due to hypoxia. Patient states he feels fine. He had refused breathing treatment at the facility and was sent to the hospital. He admits to good urine output. No hematuria or dysuria. No vomiting or diarrhea. No chest pain. He is currently on 5 L nasal cannula. Blood pressure stable. Afebrile. He tested negative for coronavirus. He is receiving IV Lasix. Patient has history of diastolic CHF. He denies swelling in his extremities. Oral intake has been fair. Denies use of nonsteroidals. Vital signs are stable. HEENT: Head exam is unremarkable. LUNGS: Breath sounds decreased. HEART: Rate and Rhythm are regular. ABDOMEN: Soft, mild distention. EXTREMITITES: 1+ edema in the thighs. Chronic changes noted. Past Medical History Past Medical History: Heart Failure, Diabetes Mellitus, Hyperlipidemia, Hypertension, Renal Disease Additional Past Medical History / Comment(s): COVID (vented) IDDM type II, neuropathy bilateral feet, gout, bilateral eye catarct removal, MRSA . History of Any Multi-Drug Resistant Organisms: MRSA Date of last positivie culture/infection: 12/17/20 MDRO Source:: Right Leg Past Surgical History: Cholecystectomy Additional Past Surgical History / Comment(s): I&D scrotal abscess, I&D back abscess Past Anesthesia/Blood Transfusion Reactions: No Reported Reaction Past Psychological History: Anxiety Additional Psychological History / Comment(s): He is independent. He works in [employer]. Smoking Status: Former smoker Past Alcohol Use History: None Reported Additional Past Alcohol Use History / Comment(s): Pt started smoking in 1987 Past Drug Use History: None Reported - Past Family History Mother Family Medical History: Diabetes Mellitus Father History Unknown: Yes Medications and Allergies Home Medications Medication Instructions Recorded Confirmed Type DULoxetine HCL [Cymbalta] 60 mg PO DAILY@0900 04/01/20 09/22/21 History amLODIPine [Norvasc] 5 mg PO BID@0900,2100 09/02/21 09/22/21 History rOPINIRole HCL [Requip] 0.25 mg PO HS@209909/02/21 09/22/21 History Aspirin 81 mg PO DAILY@0900 09/22/21 09/22/21 History Atorvastatin [Lipitor] 40 mg PO HS@209909/22/21 09/22/21 History Baclofen 5 mg PO Q8H PRN 09/22/21 09/22/21 History Collagenase [Santyl Ointment] 1 applic TOPICAL HS 09/22/21 09/22/21 History Insulin Lispro [humaLOG Kwikpen] See Protocol SQ ACHS@07,11,16,09/22/21 09/22/21 History Ipratropium-Albuterol Nebulize 3 ml INHALATION RT-BID@0900,209909/22/21 History [Duoneb 0.5 mg-3 mg/3 ml Soln] Isosorbide Mononitrate ER [Imdur] 30 mg PO DAILY@0909/22/21 09/22/21 History Metoprolol Tartrate [Lopressor] 50 mg PO BID@0900,209909/22/21 09/22/21 History Omeprazole 40 mg PO DAILY@0900 09/22/21 09/22/21 History Semaglutide [Ozempic] 0.25 mg SQ FR 09/22/21 09/22/21 History Torsemide [Demadex] 20 mg PO DAILY@0900 09/22/21 09/22/21 History Allergies Allergy/AdvReac Type Severity Reaction Status Date / Time No Known Allergies Allergy Verified 09/22/21 16:12 Physical Exam Vitals: Vital Signs Temp Pulse Pulse Resp BP BP Pulse Ox 09/23/21 07:39 98.3 F 86 17 139/63 91 L 09/23/21 07:15 17 09/23/21 02:00 98.5 F 84 16 144/67 09/22/21 23:23 93 130/70 09/22/21 19:26 98.0 F 92 18 161/85 95 09/22/21 19:23 93 18 09/22/21 15:37 88 16 158/82 96 09/22/21 13:16 97.9 F 85 18 140/70 90 L Intake and Output 09/22/21 09/23/21 09/23/21 22:59 06:59 14:59 Output Total 400 Balance -400 Output: Urine 400 Other: Voiding Method Bedpan Bedpan Urinal Urinal # Bowel Movements 1 Weight 67 kg Results - Lab Results Most recent lab results Calcium 7.8 mg/dL (8.4-10.2) L 09/23/21 06:25 Magnesium 2.2 mg/dL (1.6-2.3) 09/23/21 06:25 09/22/21 14:13 09/23/21 06:25 Assessment and Plan Plan: Assessment: 1. Chronic kidney disease stage IV with baseline creatinine near 3 secondary to diabetic kidney disease and cardiorenal syndrome. GFR stable. 2. Acute on chronic diastolic CHF. 3. Volume overload. 4. Acute hypoxic respiratory failure. 5. Anemia of chronic kidney disease. 6. Hypertension with chronic kidney disease. Plan: Maintain IV Lasix. Check iron studies. Continue to monitor renal function and urine output. Follow-up echocardiogram. Thank you for the consultation. I'll continue to follow the patient with you during his hospital stay.
[2021-09-23] MEDS ORDERED: TORSEMIDE 20 MG TAB PO SCH (10:45)
--- NOTE | 2021-09-23 10:45 | P.CRDCN ---
History of Present Illness Consult date: 09/23/21 History of present illness: HISTORY OF PRESENT ILLNESS: This is a 51-year-old male with a past medical history significant for hypertension, congestive heart failure, diabetes, bilateral neuropathy, chronic kidney disease and former nicotine dependence. Patient follows in the office with Dr. Dickson. We have been asked to see the patient in consultation for CHF. Patient examined at the bedside. Patient states he was sent in by the physician at [facility] on the [address] because they felt he was in acute CHF. The patient currently denies any chest pain or pressure. He denies SOB. His BNP was found to be elevated at 22,200. He was started on IV lasix per the ER physician. EKG reveals sinus mechanism with low voltage QRS. No signs of acute ischemia. Chest xray heart size is mildly prominent. Pulmonary vasculature is prominent. Posterior pleural effusion. Correlate for CHF Laboratory data: WBC 9.2. Hemoglobin 8.6. Platelet count 302. Sodium 139. Potassium 4.0. BUN 81. Creatinine 2.96. Troponin negative 1. ProBNP 22,200 Current home cardiac medications include amlodipine 5 mg twice a day, metoprolol tartrate 50 mg twice a day, Lipitor 40 mg daily, Demadex 20 mg daily, aspirin 81 mg daily, Imdur 30mg daily Most recent echocardiogram obtained in January 2021 revealed ejection fraction 55- 60%, [id number] aortic regurgitation, mild mitral regurgitation, mild tricuspid regurgitation Patient underwent stress test in February 2021 revealing a fixed defect along the inferior wall could represent diaphragmatic attenuation artifact versus old inferior wall infarct. Subtle small area of reversibility along the mid anterior wall. Patient did not have any troponin elevation or EKG abnormalities and given his chronic kidney disease, medical management was recommended. REVIEW OF SYSTEMS: At the time of my exam: CONSTITUTIONAL: Denies fever or chills. HEENT: Denies blurred vision, vision changes, or eye pain. Denies hemoptysis CARDIOVASCULAR: Denies chest pain. Denies orthopnea. Denies PND. Denies palpitations RESPIRATORY: Denies shortness of breath. GASTROINTESTINAL: Denies abdominal pain. Denies nausea or vomiting. HEMATOLOGIC: Denies bleeding disorders. GENITOURINARY: Denies any blood in urine. SKIN: Denies pruitis. Denies rash. PHYSICAL EXAM: VITAL SIGNS: Reviewed. GENERAL: Well-developed in no acute distress. HEENT: Head is normocephalic. Pupils are equal, round. Sclerae anicteric. Mucous membranes of the mouth are moist. Neck supple. No JVD or thyromegaly LUNGS: Respirations even and unlabored. Lungs essentially clear to auscultation bilaterally. HEART: Regular rate and rhythm. S1 and S2 heard. ABDOMEN: Soft. Nondistended. Nontender. EXTREMITIES: Normal range of motion. No clubbing or cyanosis. Peripheral pulses intact. No lower extremity edema. Multiple scabs to lower extremities noted. NEUROLOGIC: Awake and alert. Oriented x 3. ASSESSMENT: Acute exacerbation of chronic diastolic heart failure Hypertension Hyperlipidemia Diabetes mellitus Chronic kidney disease Dysautonomia Former nicotine dependence PLAN: Obtain 2D echo to assess cardiac structure and function Resume home cardiac medications Discontinue IV lasix Begin Demadex 20mg BID Monitor kidney function Accurate I&O Daily weights Further recommendations pending patient course Nurse practitioner note has been reviewed by physician. Signing provider agrees with the documented findings, assessment, and plan of care. Past Medical History Past Medical History: Heart Failure, Diabetes Mellitus, Hyperlipidemia, Hypertension, Renal Disease Additional Past Medical History / Comment(s): COVID (vented) IDDM type II, neuropathy bilateral feet, gout, bilateral eye catarct removal, MRSA . History of Any Multi-Drug Resistant Organisms: MRSA Date of last positivie culture/infection: 12/17/20 MDRO Source:: Right Leg Past Surgical History: Cholecystectomy Additional Past Surgical History / Comment(s): I&D scrotal abscess, I&D back abscess Past Anesthesia/Blood Transfusion Reactions: No Reported Reaction Past Psychological History: Anxiety Additional Psychological History / Comment(s): He is independent. He works in [employer]. Smoking Status: Former smoker Past Alcohol Use History: None Reported Additional Past Alcohol Use History / Comment(s): Pt started smoking in 1987 Past Drug Use History: None Reported - Past Family History Mother Family Medical History: Diabetes Mellitus Father History Unknown: Yes Medications and Allergies Home Medications Medication Instructions Recorded Confirmed Type DULoxetine HCL [Cymbalta] 60 mg PO DAILY@0900 04/01/20 09/22/21 History amLODIPine [Norvasc] 5 mg PO BID@0900,2100 09/02/21 09/22/21 History rOPINIRole HCL [Requip] 0.25 mg PO HS@2100 09/02/21 09/22/21 History Aspirin 81 mg PO DAILY@0900 09/22/21 09/22/21 History Atorvastatin [Lipitor] 40 mg PO HS@209909/22/21 09/22/21 History Baclofen 5 mg PO Q8H PRN 09/22/21 09/22/21 History Collagenase [Santyl Ointment] 1 applic TOPICAL HS 09/22/21 09/22/21 History Insulin Lispro [humaLOG Kwikpen] See Protocol SQ ACHS@07,11,16,09/22/21 09/22/21 History Ipratropium-Albuterol Nebulize 3 ml INHALATION RT-BID@0900,209909/22/21 09/22/21 History [Duoneb 0.5 mg-3 mg/3 ml Soln] Isosorbide Mononitrate ER [Imdur] 30 mg PO DAILY@0909/22/21 09/22/21 History Metoprolol Tartrate [Lopressor] 50 mg PO BID@0900,209909/22/21 09/22/21 History Omeprazole 40 mg PO DAILY@0900 09/22/21 09/22/21 History Semaglutide [Ozempic] 0.25 mg SQ FR 09/22/21 09/22/21 History Torsemide [Demadex] 20 mg PO DAILY@0909/22/21 09/22/21 History Allergies Allergy/AdvReac Type Severity Reaction Status Date / Time No Known Allergies Allergy Verified 09/22/21 16:12 Physical Exam Vitals: Vital Signs Temp Pulse Pulse Resp BP BP Pulse Ox 09/23/21 07:39 98.3 F 86 17 139/63 91 L 09/23/21 07:15 17 09/23/21 02:00 98.5 F 84 16 144/67 09/22/21 23:23 93 130/70 09/22/21 19:26 98.0 F 92 18 161/85 95 09/22/21 19:23 93 18 09/22/21 15:37 88 16 158/82 96 09/22/21 13:16 97.9 F 85 18 140/70 90 L Intake and Output 09/22/21 09/23/21 09/23/21 22:59 06:59 14:59 Output Total 400 Balance -400 Output: Urine 400 Other: Voiding Method Bedpan Bedpan Urinal Urinal # Bowel Movements 1 Weight 67 kg Results 09/22/21 14:13 09/23/21 06:25 Cardiac Enzymes 09/22/21 09/22/21 Range/Units 14:13 14:13 AST 40 (17-59) U/L Troponin I 0.012 (0.000-0.034) ng/mL Coagulation 09/22/21 Range/Units 14:13 PT 13.0 H (9.0-12.0) sec APTT 25.7 (22.0-30.0) sec CBC 09/22/21 Range/Units 14:13 WBC 9.2 (3.8-10.6) k/uL RBC 3.02 L (4.30-5.90) m/uL Hgb 8.6 L D (13.0-17.5) gm/dL Hct 26.7 L (39.0-53.0) % Plt Count 302 (150-450) k/uL Comprehensive Metabolic Panel 09/22/21 09/23/21 Range/Units 14:13 06:25 Sodium 139 139 (137-145) mmol/L Potassium 4.2 4.0 (3.5-5.1) mmol/L Chloride 103 104 (98-107) mmol/L Carbon Dioxide 27 29 (22-30) mmol/L BUN 89 H 81 H (9-20) mg/dL Creatinine 3.03 H 2.96 H (0.66-1.25) mg/dL Glucose 105 H 128 H (74-99) mg/dL Calcium 7.8 L 7.8 L (8.4-10.2) mg/dL AST 40 (17-59) U/L ALT 18 (4-49) U/L Alkaline Phosphatase 433 H (38-126) U/L Total Protein 7.7 (6.3-8.2) g/dL Albumin 2.6 L (3.5-5.0) g/dL Current Medications Generic Name Dose Route Start Last Admin Trade Name Freq PRN Reason Stop Dose Admin Albuterol/Ipratropium 3 ml 09/23/21 09:00 Ipratropium-Albuterol 3 Ml Neb INHALATION RT-BID@0900,2100 LUIZA Amlodipine Besylate 5 mg 09/22/21 22:14 09/23/21 07:49 Amlodipine 5 Mg Tab PO 5 mg BID@0900,2099 [facility] Administration Aspirin 81 mg 09/23/21 09:00 09/23/21 07:48 Aspirin 81 Mg PO 81 mg DAILY@0900 LUIZA Administration Atorvastatin Calcium 40 mg 09/23/21 21:00 Atorvastatin 40 Mg Tab PO HS@2100 LUIZA Baclofen 5 mg 09/22/21 22:13 09/22/21 23:25 Baclofen 10 Mg Tab PO 5 mg Q8H PRN Administration Muscle Spasm Collagenase 1 applic 09/23/21 21:00 Collagenase 250 Unit/Gm Ointment 30 Gm Tube TOPICAL HS [facility] Protocol Duloxetine HCl 60 mg 09/23/21 09:00 09/23/21 07:48 Duloxetine Hcl 60 Mg Capsule.Dr PO 60 mg DAILY@0900 [facility] Administration Furosemide 40 mg 09/22/21 17:00 09/23/21 04:42 Furosemide 10 Mg/Ml 4 Ml Vial IV 40 mg Q12H LUIZA Administration Isosorbide Mononitrate 30 mg 09/23/21 09:00 09/23/21 07:48 Isosorbide Mononitrate Er 30 Mg Tab.Er.24h PO 30 mg DAILY@0900 [facility] Administration Metoprolol Tartrate 50 mg 09/22/21 22:14 09/23/21 07:49 Metoprolol Tartrate 50 Mg Tab PO 50 mg BID@0900,2099 [facility] Administration Pantoprazole Sodium 40 mg 09/23/21 09:00 09/23/21 07:49 Pantoprazole 40 Mg Tablet PO 40 mg DAILY@0900 LUIZA Administration Ropinirole HCl 0.25 mg 09/22/21 21:00 09/22/21 23:24 Ropinirole Hcl 0.25 Mg Tab PO 0.25 mg HS@2100 [facility] Administration Intake and Output 09/22/21 09/23/21 09/23/21 22:59 06:59 14:59 Output Total 400 Balance -400 Output: Urine 400 Other: Voiding Method Bedpan Bedpan Urinal Urinal # Bowel Movements 1 Weight 67 kg 09/22/21 14:13 09/23/21 06:25
[2021-09-23] MEDS: IPRATROPIUM-ALBUTEROL 3 ML NEB INHALATION SCH ×2 (11:35→20:53)
[2021-09-23 11:41] LABS: Glucose,Whole Blood 140 mg/dL (75-99)
[2021-09-23 11:44] LABS: Glucose,Whole Blood 143 mg/dL (75-99)
[2021-09-23] MEDS: INSULIN ASPART (NovoLOG) 100 UNIT/ML VIAL SQ SCH ×3 (11:46→19:38)
--- NOTE | 2021-09-23 13:00 | ECHOF ---
Referral Reason:LV function MEASUREMENTS -------- HEIGHT: 170.2 cm WEIGHT: 66.7 kg BP: RVIDd: 2.7 cm (< 3.3) IVSd: 1.4 cm (0.6 - 1.1) LVIDd: 4.8 cm (3.9 - 5.3) LVPWd: 1.4 cm (0.6 - 1.1) IVSs: 1.8 cm LVIDs: 3.6 cm LVPWs: 2.0 cm Ao Diam: 3.2 cm (2.0 - 3.7) AV Cusp: 1.6 cm (1.5 - 2.6) LA Diam: 4.4 cm (2.7 - 3.8) MV EXCURSION: 13.883 mm (> 18.000) MV EF SLOPE: 114 mm/s (70 - 150) EPSS: 1.6 cm MV E Tawanda: 1.18 m/s MV DecT: 141 ms MV A Tawanda: 0.99 m/s MV E/A Ratio: 1.19 AR PHT: 565 ms RAP: 15.00 mmHg RVSP: 51.55 mmHg FINDINGS -------- This was a technically good study. The left ventricular size is normal. There is moderate concentric left ventricular hypertrophy. O verall left ventricular systolic function is normal with, an EF between 55 - 60 %. The right ventricle is normal in size. The left atrial size is normal. The right atrial size is normal. Aortic valve is trileaflet and is mildly thickened. There is moderate aortic regurgitation. The mitral valve is normal. Mild mitral regurgitation is present. The tricuspid valve appears structurally normal. Moderate tricuspid regurgitation present. There is mild pulmonary hypertension. The right ventricular systolic pressure, as measured by Doppler, is 51.55mmHg. There is no pulmonic regurgitation present. The aortic root size is normal. The inferior vena cava is mildly dilated. There is a small, generalized pericardial effusion present. Large Pleural Effusion. CONCLUSIONS -------- 1. The left ventricular size is normal. 2. There is moderate concentric left ventricular hypertrophy. 3. Overall left ventricular systolic function is normal with, an EF between 55 - 60 %. 4. Aortic valve is trileaflet and is mildly thickened. 5. There is moderate aortic regurgitation. 6. Mild mitral regurgitation is present. 7. Moderate tricuspid regurgitation present. 8. There is mild pulmonary hypertension. 9. The right ventricular systolic pressure, as measured by Doppler, is 51.55mmHg. 10. The inferior vena cava is mildly dilated. 11. There is a small, generalized pericardial effusion present. 12. Large Pleural Effusion. SNOW REMOVING SUPERVISOR: Johana Schneider RDCS
[2021-09-23 13:37] VITALS: BMI 23.1
--- NOTE | 2021-09-23 16:21 | P.HPIM ---
History of Present Illness H&P Date: 09/23/21 Chief Complaint: vomiting History of presenting complaint This is a pleasant 51-year-old patient, chronic stable medical conditions include diabetes mellitus type 2, peripheral neuropathy, hyperlipidemia patient has chronic lower extremity leg wounds. CHF 50-55%, Autonomic dysfunction from diabetes. Causing orthostatics. Patient was here earlier in the month with CHF exacerbation. Was put on a Lasix drip. Neurontin was discontinued. Patient was sent in from [facility]. abdominal swelling, shortness of breath. No fever no cough no chest pain. Patient states he vomited for about 3 days. About 1-3 times a day. Slight abdominal discomfort. No change in bowel pattern. Patient breathing still short of breath. Pulse ox is 91% on 5 L. Did get some Lasix in the ER. Tired Review of systems: GEN.: Tired, EYES: None HEENT: None NECK: None RESPIRATORY: As above CARDIOVASCULAR: None GASTROINTESTINAL: As above GENITOURINARY: None MUSCULOSKELETAL: Joint pains LYMPHATICS: None HEMATOLOGICAL: None DERMATOLOGICAL: Lower extremity Leg wounds-healing PSYCHIATRY: None NEUROLOGICAL: Numbness tingling hands and feet Past medical history to include: Diabetes, hyperlipidemia, peripheral neuropathy, MRSA infection including abscess and cellulitis,, anxiety, diabetic autonomic dysfunction. CHF EF 50-55% Social history: Currently at [facility]. Previously did [employer]. Smoking 2 packs a day for 32 years. , Stopped less than a year ago. Alcohol occasionally. Physical examination: VITAL SIGNS: 98.3, 86, 17, 1 39 x 63, 91% on 5 L GENERAL: BMI 23.1, laying in bed awake, tired. EYES: Pupils equal. Conjunctiva normal. HEENT: External appearance of nose and ears normal, oral cavity grossly normal. NECK: JVD not raised; masses not palpable. HEART: First and second heart sounds are normal; some edema. LUNGS: Respiratory rate normal; decreased breath sounds. ABDOMEN: Soft, distended nontender, liver spleen not palpable, no masses palpabl e. PSYCH: [Alert and oriented x3; mood and affect anxious l. MUSCULOSKELETAL:No Clubbing/cyanosis;muscles-grossly intact NEUROLOGICAL: [Cranial nerves grossly intact; no facial asymmetry, decreased sensation distally. LYMPHATICS: No lymph nodes palpable in the axilla and neck INVESTIGATIONS, reviewed in the clinical context: White count 9.2 hemoglobin 8.6 platelets 302 potassium 4.2 BUN 89 creatinine 3.03 2-D echocardiogram: EF 55-60%. Moderate aortic regurgitation. Moderate tricuspid regurgitation. Albumin 2.6 Coronavirus [PCR]: Not detected EKG tracing personally reviewed by me-normal sinus rhythm. Rate 85 low voltage. Chest x-ray film personally reviewed by me-pulmonary edema/pleural effusion Assessment and plan: --Acute on Chronic congestive heart failure from diastolic dysfunction EF 50- 55%: Stable Bumex drip 0.5 mg an hour. Strict I's and O's. -Autonomic gastroparesis causing vomiting. For liquid diet. Advance as tolerated. -Chronic autonomic dysfunction from diabetes- Fall precautions -Chronic stable angina with a prior history of positive nuclear stress test. Imdur ER 30 mg a day -Chronic lower extremity wounds. Continue wound care. 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 Levemir 16 units daily at bedtime -Diabetic peripheral neuropathy Neurontin discontinued. 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 Strict I's and O's. Fluid restriction. Patient responded well on last admission to diuretic drip. Home medications resumed. Follow electrolytes. We'll liquid diet and advance as tolerated. Given the complexity and severity of patient's condition expect the patient to be in the hospital at least for 2 overnights Past Medical History Past Medical History: Heart Failure, Diabetes Mellitus, Hyperlipidemia, Hypertension, Renal Disease Additional Past Medical History / Comment(s): COVID (vented) IDDM type II, neuropathy bilateral feet, gout, bilateral eye catarct removal, MRSA . History of Any Multi-Drug Resistant Organisms: MRSA Date of last positivie culture/infection: 12/17/20 MDRO Source:: Right Leg Past Surgical History: Cholecystectomy Additional Past Surgical History / Comment(s): I&D scrotal abscess, I&D back abscess Past Anesthesia/Blood Transfusion Reactions: No Reported Reaction Past Psychological History: Anxiety Additional Psychological History / Comment(s): He is independent. He works in [employer]. Smoking Status: Former smoker Past Alcohol Use History: None Reported Additional Past Alcohol Use History / Comment(s): Pt started smoking in 1987 Past Drug Use History: None Reported - Past Family History Mother Family Medical History: Diabetes Mellitus Father History Unknown: Yes Medications and Allergies Home Medications Medication Instructions Recorded Confirmed Type DULoxetine HCL [Cymbalta] 60 mg PO DAILY@0900 04/01/20 09/22/21 History amLODIPine [Norvasc] 5 mg PO BID@0900,209909/02/21 09/22/21 History rOPINIRole HCL [Requip] 0.25 mg PO HS@209909/02/21 09/22/21 History Aspirin 81 mg PO DAILY@89909/22/21 09/22/21 History Atorvastatin [Lipitor] 40 mg PO HS@209909/22/21 09/22/21 History Baclofen 5 mg PO Q8H PRN 09/22/21 09/22/21 History Collagenase [Santyl Ointment] 1 applic TOPICAL HS 09/22/21 09/22/21 History Insulin Lispro [humaLOG Kwikpen] See Protocol SQ ACHS@07,11,16,09/22/21 09/22/21 History Ipratropium-Albuterol Nebulize 3 ml INHALATION RT-BID@0900,209909/22/21 09/22/21 History [Duoneb 0.5 mg-3 mg/3 ml Soln] Isosorbide Mononitrate ER [Imdur] 30 mg PO DAILY@0909/22/21 09/22/21 History Metoprolol Tartrate [Lopressor] 50 mg PO BID@0900,209909/22/21 09/22/21 History Omeprazole 40 mg PO DAILY@89909/22/21 09/22/21 History Semaglutide [Ozempic] 0.25 mg SQ FR 09/22/21 09/22/21 History Torsemide [Demadex] 20 mg PO DAILY@0900 09/22/21 09/22/21 History Allergies Allergy/AdvReac Type Severity Reaction Status Date / Time No Known Allergies Allergy Verified 09/22/21 16:12 Physical Exam Vitals: Vital Signs Temp Pulse Pulse Resp BP BP Pulse Ox 09/23/21 07:39 98.3 F 86 17 139/63 91 L 09/23/21 07:15 17 09/23/21 02:00 98.5 F 84 16 144/67 09/22/21 23:23 93 130/70 09/22/21 19:26 98.0 F 92 18 161/85 95 09/22/21 19:23 93 18 09/22/21 15:37 88 16 158/82 96 09/22/21 13:16 97.9 F 85 18 140/70 90 L Intake and Output 09/22/21 09/23/21 09/23/21 22:59 06:59 14:59 Output Total 400 Balance -400 Output: Urine 400 Other: Voiding Method Bedpan Bedpan Urinal Urinal # Bowel Movements 1 Weight 67 kg Results CBC & Chem 7: 09/22/21 14:13 09/23/21 06:25 Labs: Abnormal Lab Results - Last 24 Hours (Table) 09/22/21 09/22/21 09/22/21 Range/Units 14:13 14:13 14:13 RBC 3.02 L (4.30-5.90) m/uL Hgb 8.6 L D (13.0-17.5) gm/dL Hct 26.7 L (39.0-53.0) % RDW 16.7 H (11.5-15.5) % Lymphocytes # 0.8 L (1.0-4.8) k/uL PT 13.0 H (9.0-12.0) sec INR 1.3 H (<1.2) BUN 89 H (9-20) mg/dL Creatinine 3.03 H (0.66-1.25) mg/dL Glucose 105 H (74-99) mg/dL Calcium 7.8 L (8.4-10.2) mg/dL Alkaline Phosphatase 433 H (38-126) U/L Albumin 2.6 L (3.5-5.0) g/dL 09/23/21 Range/Units 06:25 RBC (4.30-5.90) m/uL Hgb (13.0-17.5) gm/dL Hct (39.0-53.0) % RDW (11.5-15.5) % Lymphocytes # (1.0-4.8) k/uL PT (9.0-12.0) sec INR (<1.2) BUN 81 H (9-20) mg/dL Creatinine 2.96 H (0.66-1.25) mg/dL Glucose 128 H (74-99) mg/dL Calcium 7.8 L (8.4-10.2) mg/dL Alkaline Phosphatase (38-126) U/L Albumin (3.5-5.0) g/dL Thrombosis Risk Factor Assmnt - Choose All That Apply Any of the Below Risk Factors Present?: Yes Each Factor Represents 1 point: Age 41-60 years Other Risk Factors: No Thrombosis Risk Factor Assessment Total Risk Factor Score: 1 Thrombosis Risk Factor Assessment Level: Low Risk
[2021-09-23 16:48] LABS: Glucose,Whole Blood 176 mg/dL (75-99)
[2021-09-23] MEDS: BUMETANIDE 10 MG in DEXTROSE 5% IN WATER 60 ML IV SCH ×2 (17:05)
[2021-09-23 19:32] LABS: Glucose,Whole Blood 129 mg/dL (75-99)
[2021-09-23] MEDS: COLLAGENASE 250 UNIT/GM OINTMENT 30 GM TUBE TOPICAL SCH (19:43)
[2021-09-23] MEDS: ATORVASTATIN 40 MG TAB PO SCH (19:43)
[2021-09-23] MEDS ORDERED: INSULIN DETEMIR (LEVEMIR) 100 UNIT/ML SYR SQ SCH (21:00)
[2021-09-24] MEDS: BACLOFEN 10 MG TAB PO PRN (01:09)
[2021-09-24 03:54] LABS: % Iron Saturation 9.1 (15.00-50.00)
[2021-09-24 06:32] LABS: African American GFR (CKD) 29 (>60 ml/min/1.73 sqM); Anion Gap 8 mmol/L; Blood Urea Nitrogen 79 mg/dL (9-20); Calcium 7.8 mg/dL (8.4-10.2); Carbon Dioxide 30 mmol/L (22-30); Chloride 100 mmol/L (98-107); Magnesium 2.1 mg/dL (1.6-2.3); Non-African American GFR(CKD) 25 (>60 ml/min/1.73 sqM); Potassium 3.9 mmol/L (3.5-5.1); Sodium 138 mmol/L (137-145)
[2021-09-24 06:40] LABS: Glucose 45 mg/dL (74-99)
[2021-09-24 07:03] LABS: Glucose,Whole Blood 73 mg/dL (75-99)
[2021-09-24] MEDS: IPRATROPIUM-ALBUTEROL 3 ML NEB INHALATION SCH ×2 (07:40→20:33)
[2021-09-24] MEDS: INSULIN ASPART (NovoLOG) 100 UNIT/ML VIAL SQ SCH ×4 (09:42→21:31)
--- NOTE | 2021-09-24 09:46 | P.PN ---
Subjective Patient is seen in follow-up for chronic kidney disease. Renal function stable. Maintained on Bumex drip. Good urine output. Denies chest pain or shortness of breath. Currently on 5 L nasal cannula. Vital signs are stable. HEENT: Head exam is unremarkable. LUNGS: Breath sounds decreased. HEART: Rate and Rhythm are regular. ABDOMEN: Soft, mild distention. EXTREMITITES: Lower extremity wounds noted. 1+ edema. Objective - Vital Signs Vital signs: Vital Signs Temp 98.0 F 09/24/21 08:04 Pulse 81 09/24/21 08:04 Resp 18 09/24/21 08:04 BP 126/83 09/24/21 08:04 Pulse Ox 94 L 09/24/21 08:04 Intake & Output 09/23/21 09/24/21 09/24/21 18:59 06:59 18:59 Intake Total 14 Output Total 400 1950 750 Balance -400 -1950 -736 Weight 67 kg Intake: Oral 14 Output: Urine 400 1950 750 Other: Voiding Method Bedpan Bedpan Urinal Urinal # Voids 2 2 # Bowel Movements 3 1 - Labs CBC & Chem 7: 09/22/21 14:13 09/24/21 05:26 Labs: Abnormal Lab Results - Last 24 Hours (Table) 09/23/21 09/23/21 09/23/21 Range/Units 06:25 06:55 11:39 BUN (9-20) mg/dL Creatinine (0.66-1.25) mg/dL Glucose (74-99) mg/dL POC Glucose (mg/dL) 143 H 140 H (75-99) mg/dL Calcium (8.4-10.2) mg/dL Iron 20 L (65-175) ug/dL TIBC 214 L (228-460) ug/dL % Saturation 9.10 L (15.00-50.00) Transferrin 153.0 L (204.0-354.0) mg/dL Ferritin 330.0 H (22.0-322.0) ng/mL 09/23/21 09/23/21 09/24/21 Range/Units 16:47 19:29 05:26 BUN 79 H (9-20) mg/dL Creatinine 2.82 H (0.66-1.25) mg/dL Glucose 45 L* (74-99) mg/dL POC Glucose (mg/dL) 176 H 129 H (75-99) mg/dL Calcium 7.8 L (8.4-10.2) mg/dL Iron (65-175) ug/dL TIBC (228-460) ug/dL % Saturation (15.00-50.00) Transferrin (204.0-354.0) mg/dL Ferritin (22.0-322.0) ng/mL 09/24/21 Range/Units 07:01 BUN (9-20) mg/dL Creatinine (0.66-1.25) mg/dL Glucose (74-99) mg/dL POC Glucose (mg/dL) 73 L (75-99) mg/dL Calcium (8.4-10.2) mg/dL Iron (65-175) ug/dL TIBC (228-460) ug/dL % Saturation (15.00-50.00) Transferrin (204.0-354.0) mg/dL Ferritin (22.0-322.0) ng/mL Assessment and Plan Plan: Assessment: 1. Chronic kidney disease stage IV with baseline creatinine near 3 secondary to diabetic kidney disease and cardiorenal syndrome. GFR stable. 2. Acute on chronic diastolic CHF with moderate tricuspid regurgitation. 3. Volume overload. Improving with diuresis. 4. Acute hypoxic respiratory failure. 5. Anemia of chronic kidney disease. Iron deficiency noted. 6. Hypertension with chronic kidney disease. Plan: Maintain Bumex drip - transition to oral Demadex 20 mg twice daily upon discharge. Add IV iron. Continue to monitor renal function and urine output. Avoid nephrotoxins.
[2021-09-24] MEDS: ASPIRIN 81 MG PO SCH (10:33)
[2021-09-24] MEDS: METOPROLOL TARTRATE 50 MG TAB PO SCH ×2 (10:33→21:31)
[2021-09-24] MEDS: DULoxetine HCL 60 MG CAPSULE.DR PO SCH (10:33)
[2021-09-24] MEDS: ISOSORBIDE MONONITRATE ER 30 MG TAB.ER.24H PO SCH (10:34)
[2021-09-24] MEDS: PANTOPRAZOLE 40 MG TABLET PO SCH (10:34)
[2021-09-24] MEDS: amLODIPine 5 MG TAB PO SCH ×2 (10:34→21:31)
[2021-09-24] MEDS ORDERED: GABAPENTIN 100 MG CAP PO SCH (11:00)
[2021-09-24 11:23] LABS: Glucose,Whole Blood 86 mg/dL (75-99)
[2021-09-24] MEDS: SODIUM FERRIC GLUCONAT-SUCROSE 125 MG in SODIUM CHLORIDE 0.9% 100 ML IVPB SCH (11:41)
[2021-09-24] MEDS: GABAPENTIN 100 MG CAP PO SCH ×2 (12:19→21:32)
[2021-09-24] MEDS: BUMETANIDE 10 MG in DEXTROSE 5% IN WATER 60 ML IV SCH ×2 (12:23)
--- NOTE | 2021-09-24 13:26 | P.PN ---
Subjective Progress Note Date: 09/24/21 HISTORY OF PRESENT ILLNESS: This is a 51-year-old male with a past medical history significant for hypertension, congestive heart failure, diabetes, bilateral neuropathy, chronic kidney disease and former nicotine dependence. Patient follows in the office with Dr. Dickson. We have been asked to see the patient in consultation for CHF. Patient examined at the bedside. Patient states he was sent in by the physician at [facility] on the [address] because they felt he was in acute CHF. The patient currently denies any chest pain or pressure. He denies SOB. His BNP was found to be elevated at 22,200. He was started on IV lasix per the ER physician. EKG reveals sinus mechanism with low voltage QRS. No signs of acute ischemia. Chest xray heart size is mildly prominent. Pulmonary vasculature is prominent. Posterior pleural effusion. Correlate for CHF Laboratory data: WBC 9.2. Hemoglobin 8.6. Platelet count 302. Sodium 139. Potassium 4.0. BUN 81. Creatinine 2.96. Troponin negative 1. ProBNP 22,200 Current home cardiac medications include amlodipine 5 mg twice a day, metoprolol tartrate 50 mg twice a day, Lipitor 40 mg daily, Demadex 20 mg daily, aspirin 81 mg daily, Imdur 30mg daily Most recent echocardiogram obtained in January 2021 revealed ejection fraction 55- 60%, [id number] aortic regurgitation, mild mitral regurgitation, mild tricuspid regurgitation Patient underwent stress test in February 2021 revealing a fixed defect along the inferior wall could represent diaphragmatic attenuation artifact versus old inferior wall infarct. Subtle small area of reversibility along the mid anterior wall. Patient did not have any troponin elevation or EKG abnormalities and given his chronic kidney disease, medical management was recommended. 09/24/2021 Patient examined this morning at the bedside. Patient denies chest pain or pressure. He reports improvement in his SOB. He was put on a Bumex drip by Dr. Pablo yesterday. Nephrology is following. Echocardiogram completed revealed ejection fraction 55-60%, moderate aortic regurgitation, mild mitral regurgitation, moderate tricuspid regurgitation, and mild pulmonary hypertension, small generalized pericardial effusion, and large pleural effusion. PHYSICAL EXAM: VITAL SIGNS: Reviewed. GENERAL: Well-developed in no acute distress. HEENT: Head is normocephalic. Pupils are equal, round. Sclerae anicteric. Mucous membranes of the mouth are moist. Neck supple. No JVD or thyromegaly LUNGS: Respirations even and unlabored. Lungs diminished to auscultation bilaterally. HEART: Regular rate and rhythm. S1 and S2 heard. Systolic murmur noted. ABDOMEN: Soft. Nondistended. Nontender. EXTREMITIES: Normal range of motion. No clubbing or cyanosis. Peripheral pulses intact. No lower extremity edema. Multiple scabs to lower extremities noted. NEUROLOGIC: Awake and alert. Oriented x 3. ASSESSMENT: Acute exacerbation of chronic diastolic heart failure Hypertension Hyperlipidemia Diabetes mellitus Chronic kidney disease Dysautonomia Former nicotine dependence PLAN: Continue current cardiac medications Continue diuretics per nephrology Per Dr. Schwarz, patient is stable from a cardiac standpoint. We will sign off. Please reconsult if needed. Nurse practitioner note has been reviewed by physician. Signing provider agrees with the documented findings, assessment, and plan of care. Objective - Vital Signs Vital signs: Vital Signs Temp 98.0 F 09/24/21 08:04 Pulse 81 09/24/21 08:04 Resp 18 09/24/21 08:04 BP 126/83 09/24/21 08:04 Pulse Ox 94 L 09/24/21 08:04 Intake & Output 09/23/21 09/24/21 09/24/21 18:59 06:59 18:59 Intake Total 117.5 Output Total 400 1950 1230 Balance -400 -1950 -1112.5 Weight 67 kg Intake: Intake, IV Titration 96.5 Amount Bumetanide 10 mg In 96.5 Dextrose 5% in Water 60 ml @ 0.5 MG/HR 5 mls/hr IV .Q20H [facility] Rx#: [id number] Oral 21 Output: Urine 400 1950 1230 Other: Voiding Method Bedpan Bedpan Urinal Urinal # Voids 2 2 # Bowel Movements 3 1 - Labs CBC & Chem 7: 09/22/21 14:13 09/24/21 05:26 Labs: Abnormal Lab Results - Last 24 Hours (Table) 09/23/21 09/23/21 09/23/21 Range/Units 06:25 16:47 19:29 BUN (9-20) mg/dL Creatinine (0.66-1.25) mg/dL Glucose (74-99) mg/dL POC Glucose (mg/dL) 176 H 129 H (75-99) mg/dL Calcium (8.4-10.2) mg/dL Iron 20 L (65-175) ug/dL TIBC 214 L (228-460) ug/dL % Saturation 9.10 L (15.00-50.00) Transferrin 153.0 L (204.0-354.0) mg/dL Ferritin 330.0 H (22.0-322.0) ng/mL 09/24/21 09/24/21 Range/Units 05:26 07:01 BUN 79 H (9-20) mg/dL Creatinine 2.82 H (0.66-1.25) mg/dL Glucose 45 L* (74-99) mg/dL POC Glucose (mg/dL) 73 L (75-99) mg/dL Calcium 7.8 L (8.4-10.2) mg/dL Iron (65-175) ug/dL TIBC (228-460) ug/dL % Saturation (15.00-50.00) Transferrin (204.0-354.0) mg/dL Ferritin (22.0-322.0) ng/mL
[2021-09-24 16:22] LABS: Glucose,Whole Blood 112 mg/dL (75-99)
--- NOTE | 2021-09-24 17:49 | P.PN ---
Progress Note - Text Progress Note Date: 09/24/21 Chief Complaint: vomiting History of presenting complaint This is a pleasant 51-year-old patient, chronic stable medical conditions include diabetes mellitus type 2, peripheral neuropathy, hyperlipidemia patient has chronic lower extremity leg wounds. CHF 50-55%, Autonomic dysfunction from diabetes. Causing orthostatics. Patient was here earlier in the month with CHF exacerbation. Was put on a Lasix drip. Neurontin was discontinued. Patient was sent in from [facility]. abdominal swelling, shortness of breath. No fever no cough no chest pain. Patient states he vomited for about 3 days. About 1-3 times a day. Slight abdominal discomfort. No change in bowel pattern. Patient breathing still short of breath. Pulse ox is 91% on 5 L. Did get some Lasix in the ER. Tired. Admitted with CHF exacerbation diastolic dysfunction. Started on a Bumex drip. September 24: Patient on Bumex drip 0.5 mg an hour. About 2200 mL in negative fluid balance. Edema coming down. Oral intake about 25%. Breathing better. Patient was hypoglycemic this morning because of increased appetite. Lantus cutback Review of systems: Was done for constitutional, cardiovascular, GI, pulmonary. relevant finding as above Active Medications Albuterol/Ipratropium (Ipratropium-Albuterol 3 Ml Neb) 3 ml INHALATION RT- BID@0900,2100 [facility] Last Admin: 09/24/21 07:40 Dose: Not Given Documented by: Amlodipine Besylate (Amlodipine 5 Mg Tab) 5 mg PO BID@0900,2100 [facility] Last Admin: 09/24/21 10:34 Dose: 5 mg Documented by: Aspirin (Aspirin 81 Mg) 81 mg PO DAILY@0900 [facility] Last Admin: 09/24/21 10:33 Dose: 81 mg Documented by: Atorvastatin Calcium (Atorvastatin 40 Mg Tab) 40 mg PO HS@2100 [facility] Last Admin: 09/23/21 19:43 Dose: 40 mg Documented by: Baclofen (Baclofen 10 Mg Tab) 5 mg PO Q8H PRN PRN Reason: Muscle Spasm Last Admin: 09/24/21 01:09 Dose: 5 mg Documented by: Collagenase (Collagenase 250 Unit/Gm Ointment 30 Gm Tube) 1 applic TOPICAL HS [facility]; Protocol Last Admin: 09/23/21 19:43 Dose: Not Given Documented by: Duloxetine HCl (Duloxetine Hcl 60 Mg Capsule.Dr) 60 mg PO DAILY@0900 [facility] Last Admin: 09/24/21 10:33 Dose: 60 mg Documented by: Gabapentin (Gabapentin 100 Mg Cap) 100 mg PO [facility] Last Admin: 09/24/21 12:19 Dose: Not Given Documented by: Bumetanide 10 mg/ Dextrose/ (Water) 100 mls @ 5 mls/hr IV .Q20H [facility] Last Admin: 09/24/21 12:23 Dose: 0.5 mg/hr, 5 mls/hr Documented by: Ferric Sodium Gluconate 125 mg (/ Sodium Chloride) 110 mls @ 100 mls/hr IVPB DAILY [facility] Stop: 09/27/21 09:46 Last Admin: 09/24/21 11:41 Dose: 100 mls/hr Documented by: Insulin Aspart (Insulin Aspart (Novolog) 100 Unit/Ml Vial) 0 unit SQ [facility]; Protocol Last Admin: 09/24/21 17:03 Dose: Not Given Documented by: Insulin Detemir (Insulin Detemir (Levemir) 100 Unit/Ml Syr) 8 unit SQ [facility] Isosorbide Mononitrate (Isosorbide Mononitrate Er 30 Mg Tab.Er.24h) 30 mg PO DAILY@0900 [facility] Last Admin: 09/24/21 10:34 Dose: 30 mg Documented by: Metoprolol Tartrate (Metoprolol Tartrate 50 Mg Tab) 50 mg PO BID@0900,2100 [facility] Last Admin: 09/24/21 10:33 Dose: 50 mg Documented by: Pantoprazole Sodium (Pantoprazole 40 Mg Tablet) 40 mg PO DAILY@0900 [facility] Last Admin: 09/24/21 10:34 Dose: 40 mg Documented by: Ropinirole HCl (Ropinirole Hcl 0.25 Mg Tab) 0.25 mg PO HS@2100 [facility] Last Admin: 09/23/21 19:43 Dose: 0.25 mg Documented by: Past medical history to include: Diabetes, hyperlipidemia, peripheral neuropathy, MRSA infection including abscess and cellulitis,, anxiety, diabetic autonomic dysfunction. CHF EF 50-55% Social history: Currently at [facility]. Previously did [employer]. Smoking 2 packs a day for 32 years. , Stopped less than a year ago. Alcohol occasionally. Physical examination: VITAL SIGNS: 98, 81, 18, 126/83, 94% on 5 L GENERAL: , laying in bed awake, tired. EYES: Pupils equal. Conjunctiva normal. HEENT: External appearance of nose and ears normal, oral cavity grossly normal. NECK: JVD not raised; masses not palpable. HEART: First and second heart sounds are normal; some edema. LUNGS: Respiratory rate normal; decreased breath sounds. ABDOMEN: Soft, distended nontender, liver spleen not palpable, no masses palpable. PSYCH: [Alert and oriented x3; mood and affect anxious l. MUSCULOSKELETAL:No Clubbing/cyanosis;muscles-grossly intact NEUROLOGICAL: [Cranial nerves grossly intact; no facial asymmetry, decreased sensation distally. INVESTIGATIONS, reviewed in the clinical context: September 24: Potassium 3.9 BUN 79 creatinine 2.8 to. Blood glucose 45 White count 9.2 hemoglobin 8.6 platelets 302 potassium 4.2 BUN 89 creatinine 3.03 2-D echocardiogram: EF 55-60%. Moderate aortic regurgitation. Moderate tricuspid regurgitation. Albumin 2.6 Coronavirus [PCR]: Not detected EKG tracing personally reviewed by me-normal sinus rhythm. Rate 85 low voltage. Chest x-ray film personally reviewed by me-pulmonary edema/pleural effusion Assessment and plan: --Acute on Chronic congestive heart failure from diastolic dysfunction EF 50- 55%: Slow to respond Bumex drip 0.5 mg an hour. Strict I's and O's. Good urine output -Autonomic gastroparesis causing vomiting. For liquid diet. Advance as tolerated. -Chronic autonomic dysfunction from diabetes- Fall precautions -Chronic stable angina with a prior history of positive nuclear stress test. Imdur ER 30 mg a day -Chronic lower extremity wounds. Continue wound care. -Essential hypertension Amlodipine 5 mg twice a day Lopressor 50 mg twice a day -Secondary pulmonary hypertension due to CHF Follow clinically -Diabetes mellitus type 2 on ozempic. Uncontrolled with hypoglycemia Diabetic diet Follow Accu-Cheks. Cutback Levemir 8 units daily at bedtime -Diabetic peripheral neuropathy Neurontin discontinued. 4 lethargic -Hyperlipidemia Lipitor 40 mg a day -COPD in a previous smoker DuoNeb when necessary -Chronic kidney disease stage 4 likely combination of diabetic nephropathy and hypertensive nephrosclerosis Nephrology consultation -Primary osteoarthritis of the hip Tylenol as needed Continue Bumex drip 0.5 mg an hour. Strict I's and O's. Fluid restriction. Encouraged the patient to increase oral intake. Cut back Lantus to 8 units. Follow electrolytes closely.
[2021-09-24] MEDS ORDERED: INSULIN DETEMIR (LEVEMIR) 100 UNIT/ML SYR SQ SCH (21:00)
[2021-09-24 21:04] LABS: Glucose,Whole Blood 141 mg/dL (75-99)
[2021-09-24] MEDS: ATORVASTATIN 40 MG TAB PO SCH (21:31)
[2021-09-24] MEDS: COLLAGENASE 250 UNIT/GM OINTMENT 30 GM TUBE TOPICAL SCH (22:44)
[2021-09-25 06:35] LABS: African American GFR (CKD) 29 (>60 ml/min/1.73 sqM); Anion Gap 4 mmol/L; Blood Urea Nitrogen 72 mg/dL (9-20); Calcium 7.7 mg/dL (8.4-10.2); Carbon Dioxide 33 mmol/L (22-30); Chloride 100 mmol/L (98-107); Non-African American GFR(CKD) 25 (>60 ml/min/1.73 sqM); Potassium 3.8 mmol/L (3.5-5.1); Sodium 137 mmol/L (137-145)
[2021-09-25 07:03] LABS: Glucose 34 mg/dL (74-99)
[2021-09-25 07:07] LABS: Glucose,Whole Blood 54 mg/dL (75-99)
[2021-09-25] MEDS: INSULIN ASPART (NovoLOG) 100 UNIT/ML VIAL SQ SCH ×4 (07:07→21:57)
[2021-09-25] MEDS: ACETAMINOPHEN TAB 500 MG TAB PO PRN (07:18)
[2021-09-25] MEDS: DULoxetine HCL 60 MG CAPSULE.DR PO SCH (07:18)
[2021-09-25] MEDS: METOPROLOL TARTRATE 50 MG TAB PO SCH ×2 (07:18→21:56)
[2021-09-25] MEDS: PANTOPRAZOLE 40 MG TABLET PO SCH (07:18)
[2021-09-25] MEDS: ASPIRIN 81 MG PO SCH (07:18)
[2021-09-25] MEDS: amLODIPine 5 MG TAB PO SCH ×2 (07:19→21:56)
[2021-09-25] MEDS: ISOSORBIDE MONONITRATE ER 30 MG TAB.ER.24H PO SCH (07:19)
--- NOTE | 2021-09-25 07:19 | XR ---
EXAMINATION TYPE: XR chest 2V DATE OF EXAM: 09/25/2021 6:37 AM COMPARISON:Chest radiograph from one day prior. TECHNIQUE: Frontal and lateral views of the chest. CLINICAL INDICATION:Male, 51 years old with history of Follow-up CHF; FINDINGS: Lungs/Pleura: Interval increase in size of right pleural effusion with associated segmental atelectas is. No evidence a left pleural effusion. No evidence of pneumothorax or focal consolidation Pulmonary vascularity: Mild Pulmonary vascular congestion. Heart/mediastinum: Cardiomediastinal silhouette is partially obscured due to overlying and adjacent o pacities. Musculoskeletal: No acute osseous pathology. IMPRESSION: 1. Interval increase in size of right pleural effusion with associated subsegmental atelectasis. 2. Mild pulmonary vascular congestion
[2021-09-25 07:28] LABS: Glucose,Whole Blood 75 mg/dL (75-99)
[2021-09-25] MEDS: BUMETANIDE 10 MG in DEXTROSE 5% IN WATER 60 ML IV SCH ×2 (10:04)
[2021-09-25] MEDS: SODIUM FERRIC GLUCONAT-SUCROSE 125 MG in SODIUM CHLORIDE 0.9% 100 ML IVPB SCH (10:04)
[2021-09-25] MEDS: IPRATROPIUM-ALBUTEROL 3 ML NEB INHALATION SCH ×2 (11:19→20:05)
[2021-09-25 11:51] LABS: Glucose,Whole Blood 118 mg/dL (75-99)
--- NOTE | 2021-09-25 15:47 | P.PN ---
Subjective Progress Note Date: 09/25/21 Follow-up for acute kidney injury. Lying comfortable in the bed. No nausea vomiting diarrhea. Good urine output. Objective - Vital Signs Vital signs: Vital Signs Temp 97.5 F L 09/25/21 14:00 Pulse 94 09/25/21 14:00 Resp 17 09/25/21 14:00 BP 133/74 09/25/21 14:00 Pulse Ox 94 L 09/25/21 14:00 Intake & Output 09/24/21 09/25/21 09/25/21 18:59 06:59 18:59 Intake Total 117.5 100 Output Total 1755 700 Balance -1637.5 -600 Intake: Intake, IV Titration 96.5 100 Amount Bumetanide 10 mg In 96.5 100 Dextrose 5% in Water 60 ml @ 0.5 MG/HR 5 mls/hr IV .Q20H [facility] Rx#: [id number] Oral 21 Output: Urine 1755 700 Other: Voiding Method Urinal Bedside Commode Urinal # Voids 1 1 - Exam No acute distress S1-S2 heard Decreased breath sounds Trace edema - Labs CBC & Chem 7: 09/22/21 14:13 09/25/21 05:46 Labs: Abnormal Lab Results - Last 24 Hours (Table) 09/24/21 09/24/21 09/25/21 Range/Units 16:21 21:01 05:46 Carbon Dioxide 33 H (22-30) mmol/L BUN 72 H (9-20) mg/dL Creatinine 2.79 H (0.66-1.25) mg/dL Glucose 34 L* (74-99) mg/dL POC Glucose (mg/dL) 112 H 141 H (75-99) mg/dL Calcium 7.7 L (8.4-10.2) mg/dL 09/25/21 09/25/21 Range/Units 07:05 11:49 Carbon Dioxide (22-30) mmol/L BUN (9-20) mg/dL Creatinine (0.66-1.25) mg/dL Glucose (74-99) mg/dL POC Glucose (mg/dL) 54 L 118 H (75-99) mg/dL Calcium (8.4-10.2) mg/dL Assessment and Plan Assessment: #1 volume overload secondary to diastolic CHF. #2 chronic kidney disease stage IV secondary to diabetic nephropathy with a bas martin creatinine around 3.0 MG per DL #3 acute hypoxic respiratory failure, better. #4 hypertension with chronic kidney disease #5 anemia with chronic kidney disease Plan: #1 continue Bumex drip, at discharge torsemide 20 by mouth twice a day. #2 renal function around baseline. #3 avoid nephrotoxic agents.
[2021-09-25 16:42] LABS: Glucose,Whole Blood 167 mg/dL (75-99)
--- NOTE | 2021-09-25 19:55 | P.PN ---
Progress Note - Text Progress Note Date: 09/25/21 Chief Complaint: vomiting History of presenting complaint This is a pleasant 51-year-old patient, chronic stable medical conditions include diabetes mellitus type 2, peripheral neuropathy, hyperlipidemia patient has chronic lower extremity leg wounds. CHF 50-55%, Autonomic dysfunction from diabetes. Causing orthostatics. Patient was here earlier in the month with CHF exacerbation. Was put on a Lasix drip. Neurontin was discontinued. Patient was sent in from [facility]. abdominal swelling, shortness of breath. No fever no cough no chest pain. Patient states he vomited for about 3 days. About 1-3 times a day. Slight abdominal discomfort. No change in bowel pattern. Patient breathing still short of breath. Pulse ox is 91% on 5 L. Did get some Lasix in the ER. Tired. Admitted with CHF exacerbation diastolic dysfunction. Started on a Bumex drip. September 24: Patient on Bumex drip 0.5 mg an hour. About 2200 mL in negative fluid balance. Edema coming down. Oral intake about 25%. Breathing better. Patient was hypoglycemic this morning because of increased appetite. Lantus cutback September 25: Patient had been hypoglycemic. Levemir discontinued. Oral intake better. About 4000 mL negative fluid balance. Will DC the Bumex drip tonight and start Bumex in the morning. Review of systems: Was done for constitutional, cardiovascular, GI, pulmonary. relevant finding as above Active Medications Acetaminophen (Acetaminophen Tab 500 Mg Tab) 500 mg PO Q6HR PRN PRN Reason: Fever and/ or Pain Last Admin: 09/25/21 07:18 Dose: 500 mg Documented by: Albuterol/Ipratropium (Ipratropium-Albuterol 3 Ml Neb) 3 ml INHALATION RT- BID@0900,2100 [facility] Last Admin: 09/25/21 11:19 Dose: Not Given Documented by: Amlodipine Besylate (Amlodipine 5 Mg Tab) 5 mg PO BID@0900,2100 [facility] Last Admin: 09/25/21 07:19 Dose: 5 mg Documented by: Aspirin (Aspirin 81 Mg) 81 mg PO DAILY@0900 [facility] Last Admin: 09/25/21 07:18 Dose: 81 mg Documented by: Atorvastatin Calcium (Atorvastatin 40 Mg Tab) 40 mg PO HS@2100 [facility] Last Admin: 01/21/22 21:31 Dose: 40 mg Documented by: Baclofen (Baclofen 10 Mg Tab) 5 mg PO Q8H PRN PRN Reason: Muscle Spasm Last Admin: 09/24/21 01:09 Dose: 5 mg Documented by: Collagenase (Collagenase 250 Unit/Gm Ointment 30 Gm Tube) 1 applic [facility]; Protocol Last Admin: 09/24/21 22:44 Dose: 1 applic Documented by: Duloxetine HCl (Duloxetine Hcl 60 Mg Capsule.Dr) 60 mg PO DAILY@0900 [facility] Last Admin: 09/25/21 07:18 Dose: 60 mg Documented by: Gabapentin (Gabapentin 100 Mg Cap) 100 mg PO HS [facility] Last Admin: 09/24/21 21:32 Dose: 100 mg Documented by: Bumetanide 10 mg/ Dextrose/ (Water) 100 mls @ 5 mls/hr IV .Q20H [facility] Last Admin: 09/25/21 10:04 Dose: 0.5 mg/hr, 5 mls/hr Documented by: Ferric Sodium Gluconate 125 mg (/ Sodium Chloride) 110 mls @ 100 mls/hr IVPB DAILY [facility] Stop: 09/27/21 09:46 Last Admin: 09/25/21 10:04 Dose: 100 mls/hr Documented by: Insulin Aspart (Insulin Aspart (Novolog) 100 Unit/Ml Vial) 0 unit SQ [facility]; Protocol Last Admin: 09/25/21 16:50 Dose: Not Given Documented by: Isosorbide Mononitrate (Isosorbide Mononitrate Er 30 Mg Tab.Er.24h) 30 mg PO DAILY@0900 [facility] Last Admin: 09/25/21 07:19 Dose: 30 mg Documented by: Metoprolol Tartrate (Metoprolol Tartrate 50 Mg Tab) 50 mg PO BID@0900,2100 [facility] Last Admin: 09/25/21 07:18 Dose: 50 mg Documented by: Pantoprazole Sodium (Pantoprazole 40 Mg Tablet) 40 mg PO DAILY@0900 [facility] Last Admin: 09/25/21 07:18 Dose: 40 mg Documented by: Ropinirole HCl (Ropinirole Hcl 0.25 Mg Tab) 0.25 mg PO HS@2100 [facility] Last Admin: 09/24/21 21:32 Dose: 0.25 mg Documented by: Torsemide (Torsemide 20 Mg Tab) 20 mg PO BID [facility] Past medical history to include: Diabetes, hyperlipidemia, peripheral neuropathy, MRSA infection including abscess and cellulitis,, anxiety, diabetic autonomic dysfunction. CHF EF 50-55% Social history: Currently at [facility]. Previously did [employer]. Smoking 2 packs a day for 32 years. , Stopped less than a year ago. Alcohol occasionally. Physical examination: VITAL SIGNS: 97.5, 94, 17, 1 33 x 34, 94% on 5 L GENERAL: , laying in bed awake, EYES: Pupils equal. Conjunctiva normal. HEENT: External appearance of nose and ears normal, oral cavity grossly normal. NECK: JVD not raised; masses not palpable. HEART: First and second heart sounds are normal; edema better LUNGS: Respiratory rate normal; decreased breath sounds. ABDOMEN: Soft, less distended nontender, liver spleen not palpable, no masses palpable. PSYCH: [Alert and oriented x3; mood and affect anxious l. MUSCULOSKELETAL:No Clubbing/cyanosis;muscles-grossly intact NEUROLOGICAL: [Cranial nerves grossly intact; no facial asymmetry, decreased sensation distally. INVESTIGATIONS, reviewed in the clinical context: September 25: Potassium 3.8. 32 creatinine 2.79. Blood glucose 34 September 24: Potassium 3.9 BUN 79 creatinine 2.8 to. Blood glucose 45 White count 9.2 hemoglobin 8.6 platelets 302 potassium 4.2 BUN 89 creatinine 3.03 2-D echocardiogram: EF 55-60%. Moderate aortic regurgitation. Moderate tricuspid regurgitation. Albumin 2.6 Coronavirus [PCR]: Not detected EKG tracing personally reviewed by me-normal sinus rhythm. Rate 85 low voltage. Chest x-ray film personally reviewed by me-pulmonary edema/pleural effusion Assessment and plan: --Acute on Chronic congestive heart failure from diastolic dysfunction EF 50- 55%: Slow to respond Bumex drip 0.5 mg an hour. Strict I's and O's. Good urine output. -Autonomic gastroparesis causing vomiting. For liquid diet. Advance as tolerated. -Chronic autonomic dysfunction from diabetes- Fall precautions -Chronic stable angina with a prior history of positive nuclear stress test. Imdur ER 30 mg a day -Chronic lower extremity wounds. Continue wound care. -Essential hypertension Amlodipine 5 mg twice a day Lopressor 50 mg twice a day -Secondary pulmonary hypertension due to CHF Follow clinically -Diabetes mellitus type 2 on ozempic. Uncontrolled with hypoglycemia Diabetic diet Follow Accu-Cheks. DC Levemir. Encourage oral intake -Diabetic peripheral neuropathy Neurontin discontinued. 4 lethargic -Hyperlipidemia Lipitor 40 mg a day -COPD in a previous smoker DuoNeb when necessary -Chronic kidney disease stage 4 likely combination of diabetic nephropathy and hypertensive nephrosclerosis Nephrology consultation -Primary osteoarthritis of the hip Tylenol as needed Continue Bumex drip 0.5 mg an hour. Strict I's and O's. Fluid restriction. HUGO Levemir. Changed to oral Bumex in the morning. Discussed with patient.
[2021-09-25 20:56] LABS: Glucose,Whole Blood 278 mg/dL (75-99)
[2021-09-25] MEDS: ATORVASTATIN 40 MG TAB PO SCH (21:56)
[2021-09-25] MEDS: COLLAGENASE 250 UNIT/GM OINTMENT 30 GM TUBE TOPICAL SCH (21:57)
[2021-09-25] MEDS: GABAPENTIN 100 MG CAP PO SCH (21:57)
[2021-09-26] MEDS: BUMETANIDE 10 MG in DEXTROSE 5% IN WATER 60 ML IV SCH ×2 (07:03)
[2021-09-26 07:04] LABS: Glucose,Whole Blood 151 mg/dL (75-99)
[2021-09-26] MEDS: amLODIPine 5 MG TAB PO SCH ×2 (09:27→21:17)
[2021-09-26] MEDS: METOPROLOL TARTRATE 50 MG TAB PO SCH ×2 (09:27→21:18)
[2021-09-26] MEDS: DULoxetine HCL 60 MG CAPSULE.DR PO SCH (09:27)
[2021-09-26] MEDS: ISOSORBIDE MONONITRATE ER 30 MG TAB.ER.24H PO SCH (09:27)
[2021-09-26] MEDS: ASPIRIN 81 MG PO SCH (09:28)
[2021-09-26] MEDS: INSULIN ASPART (NovoLOG) 100 UNIT/ML VIAL SQ SCH ×4 (09:28→21:17)
[2021-09-26] MEDS: PANTOPRAZOLE 40 MG TABLET PO SCH (09:28)
[2021-09-26] MEDS: SODIUM FERRIC GLUCONAT-SUCROSE 125 MG in SODIUM CHLORIDE 0.9% 100 ML IVPB SCH (09:28)
[2021-09-26] MEDS: TORSEMIDE 20 MG TAB PO SCH ×2 (09:29→21:18)
[2021-09-26] MEDS: IPRATROPIUM-ALBUTEROL 3 ML NEB INHALATION SCH ×2 (11:28→21:07)
[2021-09-26 11:43] LABS: Glucose,Whole Blood 153 mg/dL (75-99)
--- NOTE | 2021-09-26 14:08 | P.PN ---
Subjective Progress Note Date: 09/26/21 Follow-up for acute kidney injury. Lying comfortable in the bed. No nausea vomiting diarrhea. Good urine output. Objective - Vital Signs Vital signs: Vital Signs Temp 97.9 F 09/26/21 08:00 Pulse 87 09/26/21 08:00 Resp 18 09/26/21 08:15 BP 122/55 09/26/21 01:57 Pulse Ox 94 L 09/26/21 08:00 Intake & Output 09/25/21 09/26/21 09/26/21 18:59 06:59 18:59 Intake Total 100 Output Total 700 2150 Balance -600 -2150 Weight 84.9 kg Intake: Intake, IV Titration 100 Amount Bumetanide 10 mg In 100 Dextrose 5% in Water 60 ml @ 0.5 MG/HR 5 mls/hr IV .Q20H [facility] Rx#: [id number] Output: Urine 700 2150 Other: Voiding Method Bedside Commode Bedside Commode Urinal Urinal # Voids 1 1 # Bowel Movements 1 - Exam No acute distress S1-S2 heard Decreased breath sounds Trace edema - Labs CBC & Chem 7: 09/22/21 14:13 09/25/21 05:46 Labs: Abnormal Lab Results - Last 24 Hours (Table) 09/25/21 09/25/21 09/26/21 Range/Units 16:41 20:53 07:02 POC Glucose (mg/dL) 167 H 278 H 151 H (75-99) mg/dL 09/26/21 Range/Units 11:42 POC Glucose (mg/dL) 153 H (75-99) mg/dL Assessment and Plan Assessment: #1 volume overload secondary to diastolic CHF. #2 chronic kidney disease stage IV secondary to diabetic nephropathy with a baseline creatinine around 3.0 MG per DL #3 acute hypoxic respiratory failure, better. #4 hypertension with chronic kidney disease #5 anemia with chronic kidney disease Plan: #1 torsemide 20 by mouth twice a day. #2 renal function around baseline. #3 avoid nephrotoxic agents.
[2021-09-26] MEDS: ACETAMINOPHEN TAB 500 MG TAB PO PRN (15:08)
--- NOTE | 2021-09-26 15:53 | P.PN ---
Progress Note - Text Progress Note Date: 09/26/21 Chief Complaint: vomiting History of presenting complaint This is a pleasant 51-year-old patient, chronic stable medical conditions include diabetes mellitus type 2, peripheral neuropathy, hyperlipidemia patient has chronic lower extremity leg wounds. CHF 50-55%, Autonomic dysfunction from diabetes. Causing orthostatics. Patient was here earlier in the month with CHF exacerbation. Was put on a Lasix drip. Neurontin was discontinued. Patient was sent in from [facility]. abdominal swelling, shortness of breath. No fever no cough no chest pain. Patient states he vomited for about 3 days. About 1-3 times a day. Slight abdominal discomfort. No change in bowel pattern. Patient breathing still short of breath. Pulse ox is 91% on 5 L. Did get some Lasix in the ER. Tired. Admitted with CHF exacerbation diastolic dysfunction. Started on a Bumex drip. September 24: Patient on Bumex drip 0.5 mg an hour. About 2200 mL in negative fluid balance. Edema coming down. Oral intake about 25%. Breathing better. Patient was hypoglycemic this morning because of increased appetite. Lantus cutback September 25: Patient had been hypoglycemic. Levemir discontinued. Oral intake better. About 4000 mL negative fluid balance. Will DC the Bumex drip tonight and start Bumex in the morning. September 26: Patient not having much of an appetite. Had a long talk with the patient to make sure that he eats. He is hemodynamically stable. Breathing stable. Back to [facility] tomorrow Review of systems: Was done for constitutional, cardiovascular, GI, pulmonary. relevant finding as above Active Medications Acetaminophen (Acetaminophen Tab 500 Mg Tab) 500 mg PO Q6HR PRN PRN Reason: Fever and/ or Pain Last Admin: 09/26/21 15:08 Dose: 500 mg Documented by: Albuterol/Ipratropium (Ipratropium-Albuterol 3 Ml Neb) 3 ml INHALATION RT- BID@0900,2100 [facility] Last Admin: 09/26/21 11:28 Dose: Not Given Documented by: Amlodipine Besylate (Amlodipine 5 Mg Tab) 5 mg PO BID@0900,2100 [facility] Last Admin: 09/26/21 09:27 Dose: 5 mg Documented by: Aspirin (Aspirin 81 Mg) 81 mg PO DAILY@0900 [facility] Last Admin: 09/26/21 09:28 Dose: 81 mg Documented by: Atorvastatin Calcium (Atorvastatin 40 Mg Tab) 40 mg PO HS@2099 [facility] Last Admin: 09/25/21 21:56 Dose: 40 mg Documented by: Baclofen (Baclofen 10 Mg Tab) 5 mg PO Q8H PRN PRN Reason: Muscle Spasm Last Admin: 09/24/21 01:09 Dose: 5 mg Documented by: Collagenase (Collagenase 250 Unit/Gm Ointment 30 Gm Tube) 1 applic TOPICAL [facility]; Protocol Last Admin: 09/25/21 21:57 Dose: 1 applic Documented by: Duloxetine HCl (Duloxetine Hcl 60 Mg Capsule.Dr) 60 mg PO DAILY@0900 [facility] Last Admin: 09/26/21 09:27 Dose: 60 mg Documented by: Gabapentin (Gabapentin 100 Mg Cap) 100 mg PO [facility] Last Admin: 09/25/21 21:57 Dose: 100 mg Documented by: Ferric Sodium Gluconate 125 mg (/ Sodium Chloride) 110 mls @ 100 mls/hr IVPB DAILY [facility] Stop: 09/27/21 09:46 Last Admin: 09/26/21 09:28 Dose: 100 mls/hr Documented by: Insulin Aspart (Insulin Aspart (Novolog) 100 Unit/Ml Vial) 0 unit SQ [facility]; Protocol Last Admin: 09/26/21 12:42 Dose: 1 unit Documented by: Isosorbide Mononitrate (Isosorbide Mononitrate Er 30 Mg Tab.Er.24h) 30 mg PO DAILY@0900 [facility] Last Admin: 09/26/21 09:27 Dose: 30 mg Documented by: Metoprolol Tartrate (Metoprolol Tartrate 50 Mg Tab) 50 mg PO BID@09,2099 [facility] Last Admin: 09/26/21 09:27 Dose: 50 mg Documented by: Pantoprazole Sodium (Pantoprazole 40 Mg Tablet) 40 mg PO DAILY@0900 [facility] Last Admin: 09/26/21 09:28 Dose: 40 mg Documented by: Ropinirole HCl (Ropinirole Hcl 0.25 Mg Tab) 0.25 mg PO HS@2099 [facility] Last Admin: 09/25/21 21:56 Dose: 0.25 mg Documented by: Torsemide (Torsemide 20 Mg Tab) 20 mg PO BID [facility] Last Admin: 09/26/21 09:29 Dose: 20 mg Documented by: Past medical history to include: Diabetes, hyperlipidemia, peripheral neuropathy, MRSA infection including abscess and cellulitis,, anxiety, diabetic autonomic dysfunction. CHF EF 50-55% Social history: Currently at [facility]. Previously did [place]. Smoking 2 packs a day for 32 years. , Stopped less than a year ago. Alcohol occasionally. Physical examination: VITAL SIGNS: 99.1, 85, 14, 140/51, 95% on 2 L GENERAL: , laying in bed awake, EYES: Pupils equal. Conjunctiva normal. HEENT: External appearance of nose and ears normal, oral cavity grossly normal. NECK: JVD not raised; masses not palpable. HEART: First and second heart sounds are normal; edema better LUNGS: Respiratory rate normal; decreased breath sounds. ABDOMEN: Soft, less distended nontender, liver spleen not palpable, no masses palpable. PSYCH: [Alert and oriented x3; mood and affect anxious l. MUSCULOSKELETAL:No Clubbing/cyanosis;muscles-grossly intact NEUROLOGICAL: [Cranial nerves grossly intact; no facial asymmetry, decreased sensation distally. INVESTIGATIONS, reviewed in the clinical context: September 25: Potassium 3.8. 32 creatinine 2.79. Blood glucose 34 September 24: Potassium 3.9 BUN 79 creatinine 2.8 to. Blood glucose 45 White count 9.2 hemoglobin 8.6 platelets 302 potassium 4.2 BUN 89 creatinine 3.03 2-D echocardiogram: EF 55-60%. Moderate aortic regurgitation. Moderate tricuspid regurgitation. Albumin 2.6 Coronavirus [PCR]: Not detected EKG tracing personally reviewed by me-normal sinus rhythm. Rate 85 low voltage. Chest x-ray film personally reviewed by me-pulmonary edema/pleural effusion Assessment and plan: --Acute on Chronic congestive heart failure from diastolic dysfunction EF 50- 55%: Slow to respond Bumex drip 0.5 mg an hour. Strict I's and O's. Good urine output. -Autonomic gastroparesis causing vomiting. For liquid diet. Advance as tolerated. -Chronic autonomic dysfunction from diabetes- Fall precautions -Chronic stable angina with a prior history of positive nuclear stress test. Imdur ER 30 mg a day -Chronic lower extremity wounds. Continue wound care. -Essential hypertension Amlodipine 5 mg twice a day Lopressor 50 mg twice a day -Secondary pulmonary hypertension due to CHF Follow clinically -Diabetes mellitus type 2 on ozempic. Uncontrolled with hypoglycemia Diabetic diet Follow Accu-Cheks. HUGO Levemir. Encourage oral intake -Diabetic peripheral neuropathy Neurontin discontinued. 4 lethargic -Hyperlipidemia Lipitor 40 mg a day -COPD in a previous smoker DuoNeb when necessary -Chronic kidney disease stage 4 likely combination of diabetic nephropathy and hypertensive nephrosclerosis Nephrology consultation -Primary osteoarthritis of the hip Tylenol as needed Patient is on oral Demadex. No restriction. Stable. Had a lengthy talk with the patient about his diet. He expresses understanding. [facility] ECF tomorrow.
[2021-09-26 16:54] LABS: Glucose,Whole Blood 139 mg/dL (75-99)
[2021-09-26 19:58] LABS: Glucose,Whole Blood 165 mg/dL (75-99)
[2021-09-26] MEDS: ATORVASTATIN 40 MG TAB PO SCH (21:17)
[2021-09-26] MEDS: GABAPENTIN 100 MG CAP PO SCH (21:17)
[2021-09-26] MEDS: COLLAGENASE 250 UNIT/GM OINTMENT 30 GM TUBE TOPICAL SCH (21:20)
[2021-09-27 07:25] LABS: Glucose,Whole Blood 141 mg/dL (75-99)
[2021-09-27] MEDS: IPRATROPIUM-ALBUTEROL 3 ML NEB INHALATION SCH (07:41)
[2021-09-27 08:13] VITALS: PULSE 80
[2021-09-27] MEDS: INSULIN ASPART (NovoLOG) 100 UNIT/ML VIAL SQ SCH ×2 (08:25→11:43)
[2021-09-27] MEDS: DULoxetine HCL 60 MG CAPSULE.DR PO SCH (08:27)
[2021-09-27] MEDS: ISOSORBIDE MONONITRATE ER 30 MG TAB.ER.24H PO SCH (08:28)
[2021-09-27] MEDS: amLODIPine 5 MG TAB PO SCH (08:28)
[2021-09-27] MEDS: METOPROLOL TARTRATE 50 MG TAB PO SCH (08:28)
[2021-09-27] MEDS: TORSEMIDE 20 MG TAB PO SCH (08:28)
[2021-09-27] MEDS: PANTOPRAZOLE 40 MG TABLET PO SCH (08:28)
[2021-09-27] MEDS: ASPIRIN 81 MG PO SCH (08:28)
[2021-09-27] MEDS: SODIUM FERRIC GLUCONAT-SUCROSE 125 MG in SODIUM CHLORIDE 0.9% 100 ML IVPB SCH (10:57)
[2021-09-27 11:42] LABS: Glucose,Whole Blood 129 mg/dL (75-99)
--- NOTE | 2021-09-27 14:28 | P.PN ---
Subjective Principal diagnosis: Pt is seen for f/u for NIXON on top of CKD. He has had good improvement in volume status. Weight has decreased. No SOB. Bumex changed to PO Objective - Vital Signs Vital signs: Vital Signs Temp 98.3 F 09/27/21 08:00 Pulse 80 09/27/21 08:00 Resp 14 09/27/21 08:00 BP 132/66 09/27/21 08:00 Pulse Ox 95 09/27/21 08:00 Intake & Output 09/26/21 09/27/21 09/27/21 18:59 06:59 18:59 Weight 75.5 kg Other: Voiding Method Bedside Commode Bedside Commode Urinal Urinal - Exam Pt is awake, comfortable. Alert and oriented x3. Lungs are clear. Examination of the heart: S1 and S 2 Examination of the abdomen reveals it to be soft, non tender. Examination of the lower extremities, chronic skin changes - Labs CBC & Chem 7: 09/22/21 14:13 09/25/21 05:46 Labs: Abnormal Lab Results - Last 24 Hours (Table) 09/26/21 09/26/21 09/27/21 Range/Units 16:52 19:57 07:24 POC Glucose (mg/dL) 139 H 165 H 141 H (75-99) mg/dL 09/27/21 Range/Units 11:40 POC Glucose (mg/dL) 129 H (75-99) mg/dL Assessment and Plan Assessment: #1 volume overload secondary to diastolic CHF, improved. #2 chronic kidney disease stage IV secondary to diabetic nephropathy with a baseline creatinine around 3.0 MG per DL #3 acute hypoxic respiratory failure, better. #4 hypertension with chronic kidney disease #5 anemia with chronic kidney disease Plan: Continue demadex. OK to discharge. F/u as out pt. in 1 week.
--- NOTE | 2021-09-27 14:55 | P.DS ---
Providers Date of admission: 09/22/21 16:04 Expected date of discharge: 09/27/21 Attending physician: Armando Pablo Consults: 09/22/21 22:16 Consult Physician Routine Consulting Provider: Rito Christine Consult Reason/Comments: JESUS Morin Do you want consulting provider notified?: Yes Primary care physician: [facility] Course: Chief Complaint: vomiting History of presenting complaint This is a pleasant 51-year-old patient, chronic stable medical conditions include diabetes mellitus type 2, peripheral neuropathy, hyperlipidemia patient has chronic lower extremity leg wounds. CHF 50-55%, Autonomic dysfunction from diabetes. Causing orthostatics. Patient was here earlier in the month with CHF exacerbation. Was put on a Lasix drip. Neurontin was discontinued. Patient was sent in from [facility]. abdominal swelling, shortness of breath. No fever no cough no chest pain. Patient states he vomited for about 3 days. About 1-3 times a day. Slight abdominal discomfort. No change in bowel pattern. Patient breathing still short of breath. Pulse ox is 91% on 5 L. Did get some Lasix in the ER. Tired. Admitted with CHF exacerbation diastolic dysfunction. Started on a Bumex drip. Patient is about 6 L / negative fluid balance. Patient's oral intake is rather erratic. He was counseled about importance of same. Insulin discontinued. Only eating a sliding scale. September 27: Discussed with Dr. Rodgers from nephrology. [facility]. Discussed with the patient. Reinforced importance of eating. Discussed with social work lecturer. Patient returned to [facility] Discussion and discharge planning more than 35 minutes Consultation: Nephrology Dr. LORI Schwarz from cardiology Past medical history to include: Diabetes, hyperlipidemia, peripheral neuropathy, MRSA infection including abscess and cellulitis,, anxiety, diabetic autonomic dysfunction. CHF EF 50-55% Social history: Currently at [facility]. 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 Smoking 2 packs a day for 32 years. , Stopped less than a year ago. Alcohol occasionally. Physical examination: VITAL SIGNS: 98.3, 80, 14, 132/66, 95% on 4 L GENERAL: , laying in bed awake, comfortable EYES: Pupils equal. Conjunctiva normal. HEENT: External appearance of nose and ears normal, oral cavity grossly normal. NECK: JVD not raised; masses not palpable. HEART: First and second heart sounds are normal; edema better LUNGS: Respiratory rate normal; decreased breath sounds. ABDOMEN: Soft, less distended nontender, liver spleen not palpable, no masses palpable. PSYCH: [Alert and oriented x3; mood and affect anxious MUSCULOSKELETAL:No Clubbing/cyanosis;muscles-grossly intact NEUROLOGICAL: [Cranial nerves grossly intact; no facial asymmetry, decreased sensation distally. INVESTIGATIONS, reviewed in the clinical context: September 25: Potassium 3.8. 32 creatinine 2.79. Blood glucose 34 September 24: Potassium 3.9 BUN 79 creatinine 2.8 to. Blood glucose 45 White count 9.2 hemoglobin 8.6 platelets 302 potassium 4.2 BUN 89 creatinine 3.03 2-D echocardiogram: EF 55-60%. Moderate aortic regurgitation. Moderate tricuspid regurgitation. Albumin 2.6 Coronavirus [PCR]: Not detected EKG tracing personally reviewed by me-normal sinus rhythm. Rate 85 low voltage. Chest x-ray film personally reviewed by me-pulmonary edema/pleural effusion Assessment and plan: --Acute on Chronic congestive heart failure from diastolic dysfunction EF 50- 55%: Improved Bumex drip 0.5 mg an hour. About 6 L and negative fluid balance. Discharged on Bumex 20 mg twice a day. Fluid restriction -Autonomic gastroparesis causing vomiting. -Chronic autonomic dysfunction from diabetes- Fall precautions -Chronic stable angina with a prior history of positive nuclear stress test. Imdur ER 30 mg a day -Chronic lower extremity wounds. Continue wound care. -Essential hypertension Amlodipine 5 mg twice a day Lopressor 50 mg twice a day -Secondary pulmonary hypertension due to CHF Follow clinically -Diabetes mellitus type 2 on ozempic. Uncontrolled with hypoglycemia Diabetic diet Follow Accu-Cheks. DC Levemir. Encourage oral intake -Diabetic peripheral neuropathy Neurontin 100 mg daily at bedtime -Hyperlipidemia Lipitor 40 mg a day -COPD in a previous smoker DuoNeb when necessary -Chronic kidney disease stage 4 likely combination of diabetic nephropathy and hypertensive nephrosclerosis Nephrology consultation -Primary osteoarthritis of the hip Tylenol as needed Disposition: ECF/[facility] Patient Condition at Discharge: Fair Plan - Discharge Summary Discharge Rx Participant: No New Discharge Prescriptions: New Gabapentin [Neurontin] 100 mg PO HS #3 cap Continue DULoxetine HCL [Cymbalta] 60 mg PO DAILY@0900 rOPINIRole HCL [Requip] 0.25 mg PO HS@2100 Baclofen 5 mg PO Q8H PRN PRN Reason: Muscle Spasm Metoprolol Tartrate [Lopressor] 50 mg PO BID@899,2099 Omeprazole 40 mg PO DAILY@899 Atorvastatin [Lipitor] 40 mg PO HS@2099 Isosorbide Mononitrate ER [Imdur] 30 mg PO DAILY@0900 Insulin Lispro [humaLOG Kwikpen] See Protocol SQ ACHS@,,, amLODIPine [Norvasc] 5 mg PO BID@899,2099 Collagenase [Santyl Ointment] 1 applic TOPICAL HS Ipratropium-Albuterol Nebulize [Duoneb 0.5 mg-3 mg/3 ml Soln] 3 ml INHALATION RT-BID@899,2099 Semaglutide [Ozempic] 0.25 mg SQ FR Aspirin 81 mg PO DAILY@0900 Changed Torsemide [Demadex] 20 mg PO BID #60 tab Discharge Medication List DULoxetine HCL [Cymbalta] 60 mg PO DAILY@0904/01/20 [History] amLODIPine [Norvasc] 5 mg PO BID@09,209909/02/21 [History] rOPINIRole HCL [Requip] 0.25 mg PO HS@209909/02/21 [History] Aspirin 81 mg PO DAILY@89909/22/21 [History] Atorvastatin [Lipitor] 40 mg PO HS@209909/22/21 [History] Baclofen 5 mg PO Q8H PRN 09/22/21 [History] Collagenase [Santyl Ointment] 1 applic TOPICAL HS 09/22/21 [History] Insulin Lispro [humaLOG Kwikpen] See Protocol SQ ACHS@07,,,09/22/21 [History] Ipratropium-Albuterol Nebulize [Duoneb 0.5 mg-3 mg/3 ml Soln] 3 ml INHALATION RT-BID@899,209909/22/21 [History] Isosorbide Mononitrate ER [Imdur] 30 mg PO DAILY@89909/22/21 [History] Metoprolol Tartrate [Lopressor] 50 mg PO BID@0900,209909/22/21 [History] Omeprazole 40 mg PO DAILY@89909/22/21 [History] Semaglutide [Ozempic] 0.25 mg SQ FR 09/22/21 [History] Gabapentin [Neurontin] 100 mg PO HS #3 cap 09/27/21 [Rx] Torsemide [Demadex] 20 mg PO BID #60 tab 09/27/21 [Rx] Follow up Appointment(s)/Referral(s): Meet Fontanez DO [Primary Care Provider] - 1-2 days Alfredo Dickson MD [STAFF PHYSICIAN] - 10/05/21 9:00 am Activity/Diet/Wound Care/Special Instructions: fluid restriction 1500 cc/day
[2021-09-27 15:13] VITALS: BP 138/70; RESP 16; TEMP 97.7
== END 2021-09-27 16:39 | DRG 291 ==
LOC: EC 13:06 → 4SSUR 16:04
PROVIDERS: ADMIT Hospitalist; ATTEND Hospitalist
PROC: 5A0935A Assistance with Respiratory Ventilation, Less than 24 Consecutive Hours, High Flow/Velocity Cannula (ICD-10-PCS; principal; 2021-09-27)
DX: I13.0 Hypertensive heart and chronic kidney disease with heart failure and stage 1 through stage 4 chronic kidney disease, or unspecified chronic kidney disease (principal); I50.33 Acute on chronic diastolic (congestive) heart failure; J96.01 Acute respiratory failure with hypoxia; N18.4 Chronic kidney disease, stage 4 (severe); N17.9 Acute kidney failure, unspecified; D63.1 Anemia in chronic kidney disease; E11.22 Type 2 diabetes mellitus with diabetic chronic kidney disease; E11.42 Type 2 diabetes mellitus with diabetic polyneuropathy; E11.43 Type 2 diabetes mellitus with diabetic autonomic (poly)neuropathy; E11.649 Type 2 diabetes mellitus with hypoglycemia without coma; E61.1 Iron deficiency; E78.5 Hyperlipidemia, unspecified; F41.9 Anxiety disorder, unspecified; G90.1 Familial dysautonomia [Riley-Day]; I07.1 Rheumatic tricuspid insufficiency; I25.118 Atherosclerotic heart disease of native coronary artery with other forms of angina pectoris; Z20.822 Contact with and (suspected) exposure to COVID-19; I27.29 Other secondary pulmonary hypertension; J44.9 Chronic obstructive pulmonary disease, unspecified; K31.84 Gastroparesis; M16.10 Unilateral primary osteoarthritis, unspecified hip; Z79.4 Long term (current) use of insulin; Z79.82 Long term (current) use of aspirin; Z79.899 Other long term (current) drug therapy; Z83.3 Family history of diabetes mellitus; Z87.891 Personal history of nicotine dependence
CPT/HCPCS: 36415; 71046; 80048; 80053; 82728; 83540; 83550; 83735; 83880; 84484; 85025; 85610; 85730; 87635; 93005; 93306; 94760; 99285

== ENCOUNTER 2021-11-15 13:46 | Inpatient (IN) | payer OTHER ==
--- NOTE | 2021-11-15 14:41 | XR ---
EXAMINATION TYPE: XR chest 2V DATE OF EXAM: 11/15/2021 COMPARISON: 09/25/2021 HISTORY: 51 year-old male shortness of breath, CHF TECHNIQUE: AP and lateral views FINDINGS: Low lung volumes with crowded vascular markings. Diffuse interstitial and vascular prominence. Scatte red patchy opacities are present. There is a trace effusions on the lateral view. Heart borderline to mildly enlarged. IMPRESSION: 2. Mild cardiomegaly. Prominent hypoventilatory changes limiting the assessment. 2. Patchy opacities and possible trace effusions. Correlate for mild to moderate CHF.
[2021-11-15] MEDS ORDERED: SODIUM CHLORIDE 0.9% 1,000 ML IV ONE (17:22)
[2021-11-15 17:24] LABS: Albumin 2.5 g/dL (3.5-5.0); Calcium 7.3 mg/dL (8.4-10.2); Potassium 3.7 mmol/L (3.5-5.1); Total Bilirubin 1.5 mg/dL (0.2-1.3); Total Protein 7.5 g/dL (6.3-8.2)
--- NOTE | 2021-11-15 17:32 | ED ---
General Adult HPI - General Chief complaint: Shortness of Breath Stated complaint: trouble walking, possible dehydration Time Seen by Provider: 11/15/21 16:53 Source: patient, family, RN notes reviewed, old records reviewed Mode of arrival: wheelchair Limitations: no limitations - History of Present Illness Initial comments: Is a 51-year-old male who has a past medical history significant for diabetes renal failure congestive heart failure. Patient comes in today because of difficulty breathing last few days and is getting weaker and weaker point where he almost fell twice today. Patient did not hurt himself. Patient is noticed increased swelling to both legs. Patient also noticed swelling on his abdomen. Patient denies any chest pain or palpitations. Patient denies any recent fever chills or cough. Patient states this are the same symptoms he has when he typically has fluid on his lungs. Patient denies any headache patient denies an y numbness weakness. Patient denies any recent injury or trauma. - Related Data Home Medications Medication Instructions Recorded Confirmed DULoxetine HCL [Cymbalta] 60 mg PO DAILY@0900 04/01/20 09/22/21 amLODIPine [Norvasc] 5 mg PO BID@09,209909/02/21 09/22/21 rOPINIRole HCL [Requip] 0.25 mg PO HS@209909/02/21 09/22/21 Aspirin 81 mg PO DAILY@89909/22/21 09/22/21 Atorvastatin [Lipitor] 40 mg PO HS@209909/22/21 09/22/21 Baclofen 5 mg PO Q8H PRN 09/22/21 09/22/21 Collagenase [Santyl Ointment] 1 applic TOPICAL HS 09/22/21 09/22/21 Insulin Lispro [humaLOG Kwikpen] See Protocol SQ ACHS@07,11,16,09/22/21 09/22/21 Ipratropium-Albuterol Nebulize 3 ml INHALATION RT-BID@0900,209909/22/21 09/22/21 [Duoneb 0.5 mg-3 mg/3 ml Soln] Isosorbide Mononitrate ER [Imdur] 30 mg PO DAILY@0900 09/22/21 09/22/21 Metoprolol Tartrate [Lopressor] 50 mg PO BID@0900,209909/22/21 09/22/21 Omeprazole 40 mg PO DAILY@0900 09/22/21 09/22/21 Semaglutide [Ozempic] 0.25 mg SQ FR 09/22/21 09/22/21 Previous Rx's Medication Instructions Recorded Gabapentin [Neurontin] 100 mg PO HS #3 cap 09/27/21 Torsemide [Demadex] 20 mg PO BID #60 tab 09/27/21 Allergies Allergy/AdvReac Type Severity Reaction Status Date / Time No Known Allergies Allergy Verified 11/15/21 14:18 Review of Systems ROS Statement: Those systems with pertinent positive or pertinent negative responses have been documented in the HPI. ROS Other: All systems not noted in ROS Statement are negative. Past Medical History Past Medical History: Heart Failure, Diabetes Mellitus, Hyperlipidemia, Hype rtension, Renal Disease Additional Past Medical History / Comment(s): COVID (vented) IDDM type II, neuropathy bilateral feet, gout, bilateral eye catarct removal, MRSA . History of Any Multi-Drug Resistant Organisms: MRSA Date of last positivie culture/infection: 12/17/20 MDRO Source:: Right Leg Past Surgical History: Cholecystectomy Additional Past Surgical History / Comment(s): I&D scrotal abscess, I&D back abscess Past Anesthesia/Blood Transfusion Reactions: No Reported Reaction Past Psychological History: Anxiety Smoking Status: Former smoker Past Alcohol Use History: None Reported Past Drug Use History: None Reported - Past Family History Mother Family Medical History: Diabetes Mellitus Father History Unknown: Yes General Exam - General Exam Comments Initial Comments: GENERAL: Patient is well-developed and well-nourished. Patient is nontoxic and well-hy drated and is in mild distress. ENT: Neck is soft and supple. No significant lymphadenopathy is noted. Oropharynx is clear. Moist mucous membranes. Neck has full range of motion without eliciting any pain. EYES: The sclera were anicteric and conjunctiva were pink and moist. Extraocular movements were intact and pupils were equal round and reactive to light. Eyelids were unremarkable. PULMONARY: She has some crackles bilateral bases and breath sounds are somewhat diminished CARDIOVASCULAR: There is a regular rate and rhythm without any murmurs gallops or rubs. ABDOMEN: Soft and nontender with normal bowel sounds. Patient has distended abdomen SKIN: Skin is clear with no lesions or rashes and otherwise unremarkable. NEUROLOGIC: Patient is alert and oriented x3. Cranial nerves II through XII are grossly intact. Motor and sensory are also intact. Normal speech, volume and content. Symmetrical smile. MUSCULOSKELETAL: Normal extremities with adequate strength and full range of motion. 2+ edema bilateral legs patient has edema on his abdomen as well. LYMPHATICS: No significant lymphadenopathy is noted PSYCHIATRIC: Normal psychiatric evaluation. Limitations: no limitations Course Vital Signs 11/15/21 11/15/21 11/15/21 14:18 17:00 17:52 Temperature 97 F L Pulse Rate 107 H 101 H Respiratory 18 26 H Rate Blood Pressure 142/75 148/81 O2 Sat by Pulse 100 89 L 96 Oximetry 11/15/21 18:30 Temperature Pulse Rate 98 Respiratory 22 Rate Blood Pressure 147/82 O2 Sat by Pulse 97 Oximetry Medical Decision Making - Medical Decision Making EKG shows sinus tachycardia at 100 bpm NJ interval 190 QRS is under 5 Q-T intervals 3 surgery QTC is 390. Patient's EKG shows no ST segment elevation or depression. Patient's chest x-ray shows acute pulmonary edema. Patient has edema all within the abdomen consistent with anasarca. Patient's sodium is 1:30. - Lab Data Result diagrams: 11/15/21 16:06 11/15/21 16:06 Lab Results 11/15/21 11/15/21 11/15/21 Range/Units 16:06 16:06 16:06 WBC 9.3 (3.8-10.6) k/uL RBC 4.20 L (4.30-5.90) m/uL Hgb 11.9 L D (13.0-17.5) gm/dL Hct 37.8 L (39.0-53.0) % MCV 90.1 (80.0-100.0) fL MCH 28.3 (25.0-35.0) pg MCHC 31.4 (31.0-37.0) g/dL RDW 16.4 H (11.5-15.5) % Plt Count 259 (150-450) k/uL MPV 7.6 Neutrophils % 96 % Lymphocytes % 1 % Monocytes % 2 % Eosinophils % 0 % Basophils % 0 % Neutrophils # 8.9 H (1.3-7.7) k/uL Lymphocytes # 0.1 L (1.0-4.8) k/uL Monocytes # 0.2 (0-1.0) k/uL Eosinophils # 0.0 (0-0.7) k/uL Basophils # 0.0 (0-0.2) k/uL Hypochromasia Slight Anisocytosis Slight PT (9.0-12.0) sec INR (<1.2) APTT (22.0-30.0) sec Sodium 130 L (137-145) mmol/L Potassium 3.7 (3.5-5.1) mmol/L Chloride 97 L (98-107) mmol/L Carbon Dioxide 23 (22-30) mmol/L Anion Gap 10 mmol/L BUN 84 H (9-20) mg/dL Creatinine 3.05 H (0.66-1.25) mg/dL Est GFR (CKD-EPI)AfAm 26 (>60 ml/min/1.73 sqM) Est GFR (CKD-EPI)NonAf 23 (>60 ml/min/1.73 sqM) Glucose 239 H (74-99) mg/dL Plasma Lactic Acid Don 1.5 (0.7-2.0) mmol/L Calcium 7.3 L (8.4-10.2) mg/dL Total Bilirubin 1.5 H (0.2-1.3) mg/dL AST 21 (17-59) U/L ALT 13 (4-49) U/L Alkaline Phosphatase 207 H (38-126) U/L Troponin I (0.000-0.034) ng/mL Total Protein 7.5 (6.3-8.2) g/dL Albumin 2.5 L (3.5-5.0) g/dL 11/15/21 11/15/21 Range/Units 16:06 17:51 WBC (3.8-10.6) k/uL RBC (4.30-5.90) m/uL Hgb (13.0-17.5) gm/dL Hct (39.0-53.0) % MCV (80.0-100.0) fL MCH (25.0-35.0) pg MCHC (31.0-37.0) g/dL RDW (11.5-15.5) % Plt Count (150-450) k/uL MPV Neutrophils % % Lymphocytes % % Monocytes % % Eosinophils % % Basophils % % Neutrophils # (1.3-7.7) k/uL Lymphocytes # (1.0-4.8) k/uL Monocytes # (0-1.0) k/uL Eosinophils # (0-0.7) k/uL Basophils # (0-0.2) k/uL Hypochromasia Anisocytosis PT 14.3 H (9.0-12.0) sec INR 1.4 H (<1.2) APTT 27.7 (22.0-30.0) sec Sodium (137-145) mmol/L Potassium (3.5-5.1) mmol/L Chloride (98-107) mmol/L Carbon Dioxide (22-30) mmol/L Anion Gap mmol/L BUN (9-20) mg/dL Creatinine (0.66-1.25) mg/dL Est GFR (CKD-EPI)AfAm (>60 ml/min/1.73 sqM) Est GFR (CKD-EPI)NonAf (>60 ml/min/1.73 sqM) Glucose (74-99) mg/dL Plasma Lactic Acid Don (0.7-2.0) mmol/L Calcium (8.4-10.2) mg/dL Total Bilirubin (0.2-1.3) mg/dL AST (17-59) U/L ALT (4-49) U/L Alkaline Phosphatase (38-126) U/L Troponin I <0.012 (0.000-0.034) ng/mL Total Protein (6.3-8.2) g/dL Albumin (3.5-5.0) g/dL Disposition Clinical Impression: Acute pulmonary edema, Anasarca, Renal failure, Hyponatremia, Hypocalcemia Disposition: ADMITTED IP TO THIS HOSP Referrals: Meet Fontanez DO [Primary Care Provider] - 1-2 days Time of Disposition: 19:06
[2021-11-15 17:34] LABS: Anisocytosis Slight; Basophils % (A) 0 %; Eosinophils % (A) 0 %; HCT 37.8 % (39.0-53.0); Hypochromasia Slight; Lymphocytes # (A) 0.1 k/uL (1.0-4.8); Lymphocytes % (A) 1 %; MCH 28.3 pg (25.0-35.0); MCHC 31.4 g/dL (31.0-37.0); MCV 90.1 fL (80.0-100.0); Mean Platelet Volume 7.6; Monocytes # (A) 0.2 k/uL (0-1.0); Monocytes % (A) 2 %; Neutrophils # (A) 8.9 k/uL (1.3-7.7); Neutrophils % (A) 96 %; Platelet Count 259 k/uL (150-450); RDW 16.4 % (11.5-15.5); WBC 9.3 k/uL (3.8-10.6)
[2021-11-15 17:37] LABS: HGB 11.9 gm/dL (13.0-17.5)
[2021-11-15 18:05] LABS: INR 1.4 (<1.2); Partial Thromboplastin Time 27.7 sec (22.0-30.0); Prothrombin Time 14.3 sec (9.0-12.0)
[2021-11-15] MEDS ORDERED: FUROSEMIDE 10 MG/ML 4 ML VIAL IV STA (18:46)
[2021-11-15] MEDS ORDERED: CALCIUM GLUCONATE 1 GM in SODIUM CHLORIDE 0.9% 100 ML IVPB ONE (20:00)
[2021-11-16] MEDS ORDERED: FUROSEMIDE 10 MG/ML 4 ML VIAL IV SCH (04:00)
[2021-11-16] MEDS ORDERED: PANTOPRAZOLE 40 MG/10 ML VIAL IVP ONE (05:03)
--- NOTE | 2021-11-16 10:37 | P.NPCON ---
History of Present Illness - Reason for Consult chronic renal failure - History of Present Illness Reason for consultation: Chronic kidney disease History of present illness: Patient is a 51-year-old male seen in consultation for chronic any disease. 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 Creatinine 3.05 on admission. Patient presented to the hospital with generalized weakness. Patient states he also has noticed worsening edema in his lower extremities and has gained quite a bit overweight. He's currently on IV Lasix 40 mg 3 times daily. Per nurse, urine output overnight was 1.1 L. Chest x-ray was suggestive of fluid overload. He denies any fever or chills. Oral intake has been poor. He denies excessive fluid intake. Denies use of nonsteroidals. Blood sugar 239 on admission. Blood pressure stable. Afebrile. ProBNP was 39,900. Patient has history of diastolic CHF with mild mitral regurgitation, moderate tricuspid regurgitation. Patient has long-standing history of diabetes. He has required temporary hemodialysis in the past. Vital signs are stable. General: Awake and alert. HEENT: Head exam is unremarkable. LUNGS: Breath sounds decreased. HEART: Rate and Rhythm are regular. ABDOMEN: Soft, distention noted. EXTREMITITES: 2+ edema. Chronic changes noted. Past Medical History Past Medical History: Heart Failure, Diabetes Mellitus, Hyperlipidemia, Hypertension, Renal Disease Additional Past Medical History / Comment(s): COVID (vented) IDDM type II, neuropathy bilateral feet, gout, bilateral eye catarct removal, MRSA . History of Any Multi-Drug Resistant Organisms: MRSA Date of last positivie culture/infection: 12/17/20 MDRO Source:: Right Leg Past Surgical History: Cholecystectomy Additional Past Surgical History / Comment(s): I&D scrotal abscess, I&D back abscess Past Anesthesia/Blood Transfusion Reactions: No Reported Reaction Past Psychological History: Anxiety Smoking Status: Former smoker Past Alcohol Use History: None Reported Past Drug Use History: None Reported - Past Family History Mother Family Medical History: Diabetes Mellitus Father History Unknown: Yes Medications and Allergies Home Medications Medication Instructions Recorded Confirmed Type DULoxetine HCL [Cymbalta] 60 mg PO DAILY@0900 04/01/20 11/15/21 History amLODIPine [Norvasc] 5 mg PO BID@0900,2100 09/02/21 11/15/21 History rOPINIRole HCL [Requip] 0.25 mg PO HS@209909/02/21 11/15/21 History Aspirin 81 mg PO DAILY@0900 09/22/21 11/15/21 History Atorvastatin [Lipitor] 40 mg PO HS@209909/22/21 11/15/21 History Baclofen 5 mg PO Q8H PRN 09/22/21 11/15/21 History Collagenase [Santyl Ointment] 1 applic TOPICAL HS 09/22/21 11/15/21 History Insulin Lispro [humaLOG Kwikpen] See Protocol SQ ACHS@07,11,16,09/22/21 11/15/21 History Ipratropium-Albuterol Nebulize 3 ml INHALATION RT-BID@0900,209909/22/21 11/15/21 History [Duoneb 0.5 mg-3 mg/3 ml Soln] Isosorbide Mononitrate ER [Imdur] 30 mg PO DAILY@0900 09/22/21 11/15/21 History Metoprolol Tartrate [Lopressor] 50 mg PO BID@0900,209909/22/21 11/15/21 History Omeprazole 40 mg PO DAILY@0900 09/22/21 11/15/21 History Semaglutide [Ozempic] 0.25 mg SQ FR 09/22/21 11/15/21 History Gabapentin [Neurontin] 100 mg PO HS #3 cap 09/27/21 11/15/21 Rx Torsemide [Demadex] 20 mg PO BID #60 tab 09/27/21 11/15/21 Rx Allergies Allergy/AdvReac Type Severity Reaction Status Date / Time No Known Allergies Allergy Verified 11/15/21 20:40 Physical Exam Vitals: Vital Signs Temp Pulse Resp BP Pulse Ox 11/16/21 04:50 97.9 F 98 15 134/73 96 11/15/21 23:44 103 H 16 135/80 96 11/15/21 18:30 98 22 147/82 97 11/15/21 18:20 26 H 11/15/21 17:52 96 11/15/21 17:00 101 H 26 H 148/81 89 L 11/15/21 14:18 97 F L 107 H 18 142/75 100 Results - Lab Results Most recent lab results Calcium 7.3 mg/dL (8.4-10.2) L 11/15/21 16:06 11/15/21 16:06 11/15/21 16:06 Assessment and Plan Plan: Assessment: 1. Chronic kidney disease stage IV secondary to diabetic kidney disease and cardiorenal syndrome with baseline creatinine in the range of 2.8-3. 2. Volume overload. 3. Acute on chronic diastolic CHF and moderate tricuspid regurgitation. 4. Diabetes mellitus. 5. Hypervolemic hyponatremia. 6. Hypertension with chronic kidney disease. Stable. Plan: Stop IV Lasix. Start Lasix drip at 10 mL an hour. 1500 mL fluid restriction. Low-salt diet. Check bladder scan to rule out urinary retention. Straight catheter if greater than 300 mL present. Continue to monitor renal function and urine output. Thank you for the consultation. I will continue to follow the patient with you during his hospital stay.
--- NOTE | 2021-11-16 11:17 | P.CNPUL ---
History of Present Illness Consult date: 11/16/21 Reason for consult: dyspnea, hypoxemia History of present illness: This is a very pleasant 51-year-old male patient is a very well-known to me. I took care of this patient during a prolonged hospitalization back in August 2021 that extended through September 2021. The patient has multiple medical problems. The patient is post coronary 19 pneumonia that occurred last year requiring intubation mechanical ventilation. He is known to have previous history of infective endocarditis of the aortic valve, previous history of MRSA soft tissue infection involving the left flank Combigan by cellulitis/abscess, he is diabetic1, peripheral diabetic neuropathy and retinopathy, diastolic heart failure, hypertension, hyperlipidemia, chronic lower extremity ulceration of the skin at the radius stages, COPD, and chronic stage for kidney disease that has been followed up by Dr. Christine on outpatient basis. The patient came into the emergency having more shortness of breath and more swelling in his abdomen and his lower extremities bilaterally. He felt that he was getting more overloaded with fluids. He typically is on oxygen at 5 L at home and currently is on 6 L. His chest x-ray showing some increased pulmonary vascular markings/edema b ilaterally. No cough. No sputum production. No chest tightness. No wheezing. No significant leukocytosis. White cell count is at 9.3 with a hemoglobin of 11.9, his creatinine is up to 3.05 and the patient has stage IV kidney disease with a GFR of 23. Sodium level is at 1:30. Glucose is up to 39, proBNP level is 39,009 100 and LFTs are essentially within normal limits. INR is at 1.4 with a PT of 14.3 and a PTT of 27. His last echocardiogram that was done on 09/23/2021 showed a ejection fraction of 55-60%, he had moderate aortic regurgitation, moderate tricuspid regurgitation, moderate to severe pulmonary hypertension with a PA pressure of 51, moderate degree of concentric left ventr icular hypertrophy. Based on his medication from home, the patient was taking Demadex 20 mg by mouth twice a day. Currently he is on Lasix drip at 10 mg an hour. Giraldo catheter is in place and the patient is producing urine output for now. Review of Systems CONSTITUTIONAL: Reports some low-grade fever. No chills. HEENT: No recent hearing problems. Denied any sore throat. CARDIOVASCULAR: No chest pain,no palpitations, no syncope. PULMONARY:no hemoptysis. , Admits to have some increased shortness of breath. GASTROINTESTINAL: No diarrhea, no nausea, no vomiting, no abdominal pain. NEUROLOGICAL: No headaches, no weakness, no numbness. HEMATOLOGICAL: Denies any bleeding or petechiae. GENITOURINARY: Denies any burning micturition, frequency, or urgency. The patient is currently being diuresed with IV Lasix. The patient has increased swelling in all 4 extremities and the patient has also developed abdominal swelling. MUSCULOSKELETAL/RHEUMATOLOGICAL: Denies any joint pain, swelling made in lower extremities and abdominal area. He does have some limited scrotal swelling also., or any muscle pain. ENDOCRINE: Denies any polyuria or polydipsia. Past Medical History Past Medical History: Heart Failure, Diabetes Mellitus, Hyperlipidemia, Hypertension, Renal Disease Additional Past Medical History / Comment(s): COVID (vented) IDDM type II, neuropathy bilateral feet, gout, bilateral eye catarct removal, MRSA . History of Any Multi-Drug Resistant Organisms: MRSA Date of last positivie culture/infection: 12/17/20 MDRO Source:: Right Leg Past Surgical History: Cholecystectomy Additional Past Surgical History / Comment(s): I&D scrotal abscess, I&D back abscess Past Anesthesia/Blood Transfusion Reactions: No Reported Reaction Past Psychological History: Anxiety Smoking Status: Former smoker Past Alcohol Use History: None Reported Past Drug Use History: None Reported - Past Family History Mother Family Medical History: Diabetes Mellitus Father History Unknown: Yes Medications and Allergies Home Medications Medication Instructions Recorded Confirmed Type DULoxetine HCL [Cymbalta] 60 mg PO DAILY@0900 04/01/20 11/15/21 History amLODIPine [Norvasc] 5 mg PO BID@0900,209909/02/21 11/15/21 History rOPINIRole HCL [Requip] 0.25 mg PO HS@209909/02/21 11/15/21 History Aspirin 81 mg PO DAILY@0900 09/22/21 11/15/21 History Atorvastatin [Lipitor] 40 mg PO HS@209909/22/21 11/15/21 History Baclofen 5 mg PO Q8H PRN 09/22/21 11/15/21 History Collagenase [Santyl Ointment] 1 applic TOPICAL HS 09/22/21 11/15/21 History Insulin Lispro [humaLOG Kwikpen] See Protocol SQ ACHS@07,11,16,21 09/22/21 11/15/21 History Ipratropium-Albuterol Nebulize 3 ml INHALATION RT-BID@0900,209909/22/21 11/15/21 History [Duoneb 0.5 mg-3 mg/3 ml Soln] Isosorbide Mononitrate ER [Imdur] 30 mg PO DAILY@89909/22/21 11/15/21 History Metoprolol Tartrate [Lopressor] 50 mg PO BID@0900,209909/22/21 11/15/21 History Omeprazole 40 mg PO DAILY@89909/22/21 11/15/21 History Semaglutide [Ozempic] 0.25 mg SQ FR 09/22/21 11/15/21 History Gabapentin [Neurontin] 100 mg PO HS #3 cap 09/27/21 11/15/21 Rx Torsemide [Demadex] 20 mg PO BID #60 tab 09/27/21 11/15/21 Rx Allergies Allergy/AdvReac Type Severity Reaction Status Date / Time No Known Allergies Allergy Verified 11/15/21 20:40 Physical Exam Vitals: Vital Signs Temp Pulse Resp BP Pulse Ox 11/16/21 04:50 97.9 F 98 15 134/73 96 11/15/21 23:44 103 H 16 135/80 96 11/15/21 18:30 98 22 147/82 97 11/15/21 18:20 26 H 11/15/21 17:52 96 11/15/21 17:00 101 H 26 H 148/81 89 L 11/15/21 14:18 97 F L 107 H 18 142/75 100 GENERAL EXAM: Alert, pleasant, 51-year-old white male, on room air, the pulse ox 97%, no significant shortness of breath at this point in time. Patient is currently on 6 L of oxygen by nasal cannula. HEAD: Normocephalic/atraumatic. EYES: Normal reaction of pupils, equal size. Conjunctiva pink, sclera white. NOSE: Clear with pink turbinates. THROAT: No erythema or exudates. NECK: No masses, no JVD, no thyroid enlargement, no adenopathy. CHEST: No chest wall deformity. Symmetrical expansion. LUNGS: Equal air entry with no crackles, wheeze, rhonchi or dullness. Breath sounds are diminished in lung bases bilaterally along with some dullness to percussion CVS: Regular rate and rhythm, normal S1 and S2, no gallops, no murmurs, no rubs, there is a stage IV systolic ejection murmur over the apex. ABDOMEN: Soft, nontender. No hepatosplenomegaly, normal bowel sounds, no guarding or rigidity. She has had some abdominal distention and possibly some abdominal wall edema and underlying ascites as the patient has some fluid wave and shifting dullness on examination. EXTREMITIES: No clubbing, increased edema, no cyanosis, 2+ pulses and upper and lower extremities. MUSCULOSKELETAL: Muscle strength and tone normal. SPINE: No scoliosis or deformity SKIN Various wounds of the physical stages and sizes, essentially superficial without any surrounding cellulitis. CENTRAL NERVOUS SYSTEM: Alert and oriented -3. No focal deficits, tone is normal in all 4 extremities. PSYCHIATRIC: Alert and oriented -3. Appropriate affect. Intact judgment and insight. Results - Laboratory Findings CBC and BMP: 11/15/21 16:06 11/15/21 16:06 PT/INR, D-dimer PT 14.3 sec (9.0-12.0) H 11/15/21 17:51 INR 1.4 (<1.2) H 11/15/21 17:51 Abnormal lab findings: Abnormal Labs 11/15/21 11/15/21 11/15/21 16:06 16:06 17:51 RBC 4.20 L Hgb 11.9 L D Hct 37.8 L RDW 16.4 H Neutrophils # 8.9 H Lymphocytes # 0.1 L PT 14.3 H INR 1.4 H Sodium 130 L Chloride 97 L BUN 84 H Creatinine 3.05 H Glucose 239 H Calcium 7.3 L Total Bilirubin 1.5 H Alkaline Phosphatase 207 H Albumin 2.5 L Assessment and Plan Plan: 1 acute chronic hypoxic respiratory failure secondary to fluid overload as the patient's chest x-rays consistent with increased fluid overload and interstitial edema. No evidence of any superinfection at this point in time. The patient is currently on 6 L O2 and at home he is on 5 L O2 nasal cannula. Note that the patient thinks his abdominal swelling, scrotal edema, lower extremity edema all consistent with fluid overload. He is known to have stage IV chronic kidney disease and a creatinine currently is at 3.05 with a GFR of 23. The findings on the case and the patient was started on Lasix at at 10 mg an hour. 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 , recovered 6 diabetes mellitus type 1, poorly controlled 7 diabetic peripheral neuropathy,diabetic retinopathy 8 congestion heart failure essentially diastolic dysfunction, moderate aortic regurgitation, moderate tricuspid regurgitation secondary pulmonary hypertension 9 hypertension 10 hyperlipidemia 11 multiple bilateral lower extremity ulceration with various healing stages and the diabetic peripheral neuropathy 12 COPD 13 medication noncompliance 14 medical debility seconds above-mentioned comorbidities Plan Agree on Lasix drip monitor renal function monitor urine output and electrolytes titrate O2 to maintain a saturation above 90% chest x-ray was noted and there is no evidence of any pneumonia resume all medications and offer the patient adequate blood sugar control, suggest putting him on a sliding scale insulin coverage for now. Hold Norvasc and this may be potentially contributing to his increased edema We'll continue to follow
[2021-11-16 12:26] LABS: Calcium 7.1 mg/dL (8.4-10.2); Potassium 3.3 mmol/L (3.5-5.1)
--- NOTE | 2021-11-16 14:05 | P.CRDCN ---
History of Present Illness History of present illness: This is a 51-year-old male with a past medical history significant for hypertension, congestive heart failure, diabetes, bilateral neuropathy, chronic kidney disease and former nicotine dependence. Patient follows in the office with Dr. Dickson. We have been asked to see the patient in consultation for CHF. Patient presents emergency department for worsening shortness of breath, generalized weakness, increased weight cane, bilateral lower extremity edema, abdominal swelling and scrotal edema and some dizziness. Patient states that his symptoms have worsened the past 3 days. The patient currently denies any chest pain or pressure. His BNP was found to be elevated at 39,900. He was st arted on IV lasix drip per Nephrology. DIAGNOSTICS EKG reveals sinus tachycardia, heart rate 100, no significant ST-T wave abnormalities. Chest xray mild cardiomegaly, patchy opacities, possible trace effusions. Laboratory data: Sodium 129, potassium 3.3, BUN 84, serum, and 2.9, troponin negative Current home cardiac medications include amlodipine 5 mg twice a day, metoprolol tartrate 50 mg twice a day, Lipitor 40 mg daily, Demadex 20 mg daily, aspirin 81 mg daily, Imdur 30mg daily Most recent echocardiogram obtained in September 2021 revealed ejection fraction 55-60%, moderate aortic regurgitation, mild mitral regurgitation, moderate tricuspid regurgitation, and mild pulmonary hypertension, small generalized pericardial effusion, and large pleural effusion. Patient underwent stress test in February 2021 revealing a fixed defect along the inferior wall could represent diaphragmatic attenuation artifact versus old inferior wall infarct. Subtle small area of reversibility along the mid ante rior wall. Patient did not have any troponin elevation or EKG abnormalities and given his chronic kidney disease, medical management was recommended. REVIEW OF SYSTEMS: At the time of my exam: CONSTITUTIONAL: Denies fever or chills. HEENT: Denies blurred vision, vision changes, or eye pain. Denies hemoptysis CARDIOVASCULAR: Denies chest pain. Denies orthopnea. Denies PND. Denies palpitations RESPIRATORY: Denies shortness of breath. GASTROINTESTINAL: Denies abdominal pain. Denies nausea or vomiting. HEMATOLOGIC: Denies bleeding disorders. GENITOURINARY: Denies any blood in urine. SKIN: Denies pruitis. Denies rash. PHYSICAL EXAM: VITAL SIGNS: Reviewed. GENERAL: Well-developed in no acute distress. HEENT: Head is normocephalic. Pupils are equal, round. Sclerae anicteric. Mucous membranes of the mouth are moist. Neck supple. No JVD or thyromegaly LUNGS: Respirations even and unlabored. Lungs essentially clear to auscultation bilaterally. HEART: Regular rate and rhythm. S1 and S2 heard. ABDOMEN: Soft. Nondistended. Nontender. Edema noted. Scrotal edema also present. EXTREMITIES: Normal range of motion. No clubbing or cyanosis. Peripheral pulses intact. 1+bilateral extremity edema. Multiple scabs to lower extremities noted. NEUROLOGIC: Awake and alert. Oriented x 3. ASSESSMENT: Acute exacerbation of chronic heart failure with preserved EF, right sided heart failure Hypertension Hyperlipidemia Type 2 Diabetes mellitus Chronic kidney disease Dysautonomia Former nicotine dependence PLAN: Continue IV Lasix Resume home cardiac medications aspirin, statin, metoprolol tartrate, imdur Patient not on ACEI/ARB due to renal function Monitor kidney function Accurate I&O Daily weights Further recommendations pending patient course Nurse practitioner note has been reviewed by physician. Signing provider agrees with the documented findings, assessment, and plan of care. Past Medical History Past Medical History: Heart Failure, Diabetes Mellitus, Hyperlipidemia, Hypertension, Renal Disease Additional Past Medical History / Comment(s): COVID (vented) IDDM type II, neuropathy bilateral feet, gout, bilateral eye catarct removal, MRSA . History of Any Multi-Drug Resistant Organisms: MRSA Date of last positivie culture/infection: 12/17/20 MDRO Source:: Right Leg Past Surgical History: Cholecystectomy Additional Past Surgical History / Comment(s): I&D scrotal abscess, I&D back abscess Past Anesthesia/Blood Transfusion Reactions: No Reported Reaction Past Psychological History: Anxiety Smoking Status: Former smoker Past Alcohol Use History: None Reported Past Drug Use History: None Reported - Past Family History Mother Family Medical History: Diabetes Mellitus Father History Unknown: Yes Medications and Allergies Home Medications Medication Instructions Recorded Confirmed Type DULoxetine HCL [Cymbalta] 60 mg PO DAILY@0900 04/01/20 11/15/21 History amLODIPine [Norvasc] 5 mg PO BID@0900,2100 09/02/21 11/15/21 History rOPINIRole HCL [Requip] 0.25 mg PO HS@2100 09/02/21 11/15/21 History Aspirin 81 mg PO DAILY@0900 09/22/21 11/15/21 History Atorvastatin [Lipitor] 40 mg PO HS@2100 09/22/21 11/15/21 History Baclofen 5 mg PO Q8H PRN 09/22/21 11/15/21 History Collagenase [Santyl Ointment] 1 applic TOPICAL HS 09/22/21 11/15/21 History Insulin Lispro [humaLOG Kwikpen] See Protocol SQ ACHS@07,11,16,21 09/22/21 11/15/21 History Ipratropium-Albuterol Nebulize 3 ml INHALATION RT-BID@0900,209909/22/21 11/15/21 History [Duoneb 0.5 mg-3 mg/3 ml Soln] Isosorbide Mononitrate ER [Imdur] 30 mg PO DAILY@0900 09/22/21 11/15/21 History Metoprolol Tartrate [Lopressor] 50 mg PO BID@0900,2100 09/22/21 11/15/21 History Omeprazole 40 mg PO DAILY@0900 09/22/21 11/15/21 History Semaglutide [Ozempic] 0.25 mg SQ FR 09/22/21 11/15/21 History Gabapentin [Neurontin] 100 mg PO HS #3 cap 09/27/21 11/15/21 Rx Torsemide [Demadex] 20 mg PO BID #60 tab 09/27/21 11/15/21 Rx Allergies Allergy/AdvReac Type Severity Reaction Status Date / Time No Known Allergies Allergy Verified 11/15/21 20:40 Physical Exam Vitals: Vital Signs Temp Pulse Resp BP Pulse Ox 11/16/21 04:50 97.9 F 98 15 134/73 96 11/15/21 23:44 103 H 16 135/80 96 11/15/21 18:30 98 22 147/82 97 11/15/21 18:20 26 H 11/15/21 17:52 96 11/15/21 17:00 101 H 26 H 148/81 89 L 11/15/21 14:18 97 F L 107 H 18 142/75 100 Results 11/15/21 16:06 11/16/21 11:17 Cardiac Enzymes 11/15/21 11/15/21 Range/Units 16:06 16:06 AST 21 (17-59) U/L Troponin I <0.012 (0.000-0.034) ng/mL Coagulation 11/15/21 Range/Units 17:51 PT 14.3 H (9.0-12.0) sec APTT 27.7 (22.0-30.0) sec CBC 11/15/21 Range/Units 16:06 WBC 9.3 (3.8-10.6) k/uL RBC 4.20 L (4.30-5.90) m/uL Hgb 11.9 L D (13.0-17.5) gm/dL Hct 37.8 L (39.0-53.0) % Plt Count 259 (150-450) k/uL Comprehensive Metabolic Panel 11/15/21 Range/Units 16:06 Sodium 130 L (137-145) mmol/L Potassium 3.7 (3.5-5.1) mmol/L Chloride 97 L (98-107) mmol/L Carbon Dioxide 23 (22-30) mmol/L BUN 84 H (9-20) mg/dL Creatinine 3.05 H (0.66-1.25) mg/dL Glucose 239 H (74-99) mg/dL Calcium 7.3 L (8.4-10.2) mg/dL AST 21 (17-59) U/L ALT 13 (4-49) U/L Alkaline Phosphatase 207 H (38-126) U/L Total Protein 7.5 (6.3-8.2) g/dL Albumin 2.5 L (3.5-5.0) g/dL Current Medications Generic Name Dose Route Start Last Admin Trade Name Theodore PRN Reason Stop Dose Admin Furosemide 40 mg 11/16/21 04:00 11/16/21 05:07 Furosemide 10 Mg/Ml 4 Ml Vial IV 40 mg Q8H LUIZA Administration 11/15/21 16:06 11/15/21 16:06
[2021-11-16] MEDS: FUROSEMIDE 100 MG in SODIUM CHLORIDE 0.9% 90 ML IV SCH ×2 (14:59→21:33)
[2021-11-16] MEDS: HEPARIN SODIUM,PORCINE/PF 5,000 UNIT/0.5 ML SYRINGE SQ SCH ×2 (15:28→23:11)
[2021-11-16] MEDS: IPRATROPIUM-ALBUTEROL 3 ML NEB INHALATION SCH (19:21)
[2021-11-16] MEDS ORDERED: ONDANSETRON 4 MG/2 ML VIAL IVP PRN (20:06)
[2021-11-16] MEDS ORDERED: Potassium Replacement Protocol 1 EACH MISC MISCELLANE PRN (20:07)
[2021-11-16 21:31] LABS: Glucose,Whole Blood 271 mg/dL (75-99)
[2021-11-16] MEDS: HYDROcodone/APAP 5-325MG 1 EACH TAB PO PRN (21:32)
[2021-11-16] MEDS: ATORVASTATIN 40 MG TAB PO SCH (21:33)
[2021-11-16] MEDS: amLODIPine 5 MG TAB PO SCH (21:33)
[2021-11-16] MEDS: METOPROLOL TARTRATE 50 MG TAB PO SCH (21:33)
[2021-11-16] MEDS: GABAPENTIN 100 MG CAP PO SCH (21:33)
[2021-11-16] MEDS: INSULIN ASPART (NovoLOG) 100 UNIT/ML VIAL SQ SCH (21:34)
--- NOTE | 2021-11-16 21:36 | P.HPIM ---
History of Present Illness H&P Date: 11/16/21 Chief Complaint: Shortness of breath Patient is a 51-year-old male with a known history of chronic kidney disease stage IV, diabetes type 2 insulin-dependent, hypertension, hyperlipidemia, chronic CHF and anxiety and previous history of smoking presents to ER with complaints of difficulty breathing and generalized weakness. Patient also having worsening bilateral lower extremity edema and weight gain. Symptoms have been getting worse for the past 3 days. Denied any complaints of cough or sputum production. No fever no chills. No headache or dizziness or lightheade dness. Chest x-ray showed mild cardiomegaly. Prominent hypoventilatory changes limiting reassessment. Patchy opacities and possible trace effusions. Correlate for mild to moderate CHF. Patient was started on IV Lasix 40 mg every 8 hourly in the ER. EKG showed sinus tachycardia. Laboratory showed WBC 9.3 hemoglobin 11.9 and platelets 259 sodium 130 potassium 3.7 chloride 97 bicarb is 23 BUN 84 and creatinine 3.05 and blood sugar is 239 lactic acid 1.5 total bilirubin was 1.5 alk phos 207 and proBNP 72816 and albumin level is 2.5. Most recent echocardiogram in September 2021 showed ejection fraction 55 to 60% and moderate TR and mild MR and moderate TR and mild pulmonary hypertension and small generalized pericardial effusion and large pleural effusion. Patient was previously admitted to the hospital due to COVID-19 infection requiring mechanical ventilation and also history of infective endocarditis. Patient is oxygen at 5 L via nasal cannula at home. Review of Systems Constitutional: Patient denies any fever or chills . Generalized weakness and weight gain. Abdomen: Patient denied nausea vomiting and diarrhea and abdominal pain. Cardiovascular: Patient denies any chest pain. Positive short of breath no palpitations. Increasing leg swelling. Respiratory: patient denied any cough or sputum production. Does have worsening shortness of breath Neurologic: Patient denied any numbness or tingling headache. Musculoskeletal: Patient denies any complaints of joint swelling or deformity. Skin: Negative Psychiatric: Negative Endocrine: No heat or cold intolerance. No recent weight gain. Genitourinary: No dysuria or hematuria. All other 14 point ROS negative except the above Past Medical History Past Medical History: Heart Failure, Diabetes Mellitus, Hyperlipidemia, Hypertension, Renal Disease Additional Past Medical History / Comment(s): COVID (vented) IDDM type II, neuropathy bilateral feet, gout, bilateral eye catarct removal, MRSA . History of Any Multi-Drug Resistant Organisms: MRSA Date of last positivie culture/infection: 12/17/20 MDRO Source:: Right Leg Past Surgical History: Cholecystectomy Additional Past Surgical History / Comment(s): I&D scrotal abscess, I&D back abscess Past Anesthesia/Blood Transfusion Reactions: No Reported Reaction Past Psychological History: Anxiety Smoking Status: Former smoker Past Alcohol Use History: None Reported Past Drug Use History: None Reported - Past Family History Mother Family Medical History: Diabetes Mellitus Father History Unknown: Yes Medications and Allergies Home Medications Medication Instructions Recorded Confirmed Type DULoxetine HCL [Cymbalta] 60 mg PO DAILY@0904/01/20 11/15/21 History amLODIPine [Norvasc] 5 mg PO BID@899,209909/02/21 11/15/21 History rOPINIRole HCL [Requip] 0.25 mg PO HS@209909/02/21 11/15/21 History Aspirin 81 mg PO DAILY@89909/22/21 11/15/21 History Atorvastatin [Lipitor] 40 mg PO HS@209909/22/21 11/15/21 History Baclofen 5 mg PO Q8H PRN 09/22/21 11/15/21 History Collagenase [Santyl Ointment] 1 applic TOPICAL HS 09/22/21 11/15/21 History Insulin Lispro [humaLOG Kwikpen] See Protocol SQ ACHS@07,11,16,09/22/21 11/15/21 History Ipratropium-Albuterol Nebulize 3 ml INHALATION RT-BID@899,209909/22/21 11/15/21 History [Duoneb 0.5 mg-3 mg/3 ml Soln] Isosorbide Mononitrate ER [Imdur] 30 mg PO DAILY@89909/22/21 11/15/21 History Metoprolol Tartrate [Lopressor] 50 mg PO BID@0900,209909/22/21 11/15/21 History Omeprazole 40 mg PO DAILY@89909/22/21 11/15/21 History Semaglutide [Ozempic] 0.25 mg SQ FR 09/22/21 11/15/21 History Gabapentin [Neurontin] 100 mg PO HS #3 cap 09/27/21 11/15/21 Rx Torsemide [Demadex] 20 mg PO BID #60 tab 09/27/21 11/15/21 Rx Allergies Allergy/AdvReac Type Severity Reaction Status Date / Time No Known Allergies Allergy Verified 11/15/21 20:40 Physical Exam Vitals: Vital Signs Temp Pulse Resp BP Pulse Ox 11/16/21 04:50 97.9 F 98 15 134/73 96 11/15/21 23:44 103 H 16 135/80 96 11/15/21 18:30 98 22 147/82 97 11/15/21 18:20 26 H 11/15/21 17:52 96 11/15/21 17:00 101 H 26 H 148/81 89 L 11/15/21 14:18 97 F L 107 H 18 142/75 100 PHYSICAL EXAMINATION: Patient is lying in the bed comfortably, no acute distress, awake alert and oriented. Lethargic and drowsy.. HEENT: Normocephalic. Neck is supple. Pupils reactive. Nostrils clear. Oral cavity is moist. Neck reveals no JVD, carotid bruits, or thyromegaly. CHEST EXAMINATION: Trachea is central. Symmetrical expansion. Bibasilar diminished sounds otherwise lung manzo clear to auscultation and percussion. CARDIAC: Normal S1, S2 with no gallops. No murmurs ABDOMEN: Soft. Bowel sounds normal. No organomegaly. No abdominal bruits. Extremities: Bilateral 3+ pedal edema no clubbing or cyanosis Neurologically awake, alert, oriented x3 with well-coordinated movements. No focal deficits noted Skin: No rash or skin lesions. Psychiatric: Cooperative. Nonsuicidal, anxious. Musculoskeletal: No joint swelling or deformity. Normal range of motion. Results CBC & Chem 7: 11/15/21 16:06 11/16/21 11:17 Labs: Abnormal Lab Results - Last 24 Hours (Table) 11/15/21 11/15/21 11/15/21 Range/Units 16:06 16:06 17:51 RBC 4.20 L (4.30-5.90) m/uL Hgb 11.9 L D (13.0-17.5) gm/dL Hct 37.8 L (39.0-53.0) % RDW 16.4 H (11.5-15.5) % Neutrophils # 8.9 H (1.3-7.7) k/uL Lymphocytes # 0.1 L (1.0-4.8) k/uL PT 14.3 H (9.0-12.0) sec INR 1.4 H (<1.2) Sodium 130 L (137-145) mmol/L Chloride 97 L (98-107) mmol/L BUN 84 H (9-20) mg/dL Creatinine 3.05 H (0.66-1.25) mg/dL Glucose 239 H (74-99) mg/dL Calcium 7.3 L (8.4-10.2) mg/dL Total Bilirubin 1.5 H (0.2-1.3) mg/dL Alkaline Phosphatase 207 H (38-126) U/L Albumin 2.5 L (3.5-5.0) g/dL Thrombosis Risk Factor Assmnt - DVT/VTE Prophylaxis DVT/VTE Prophylaxis: Pharmacologic Prophylaxis ordered Assessment and Plan Assessment: Worsening shortness of breath secondary to fluid overload due to CKD and acute CHF. Acute on chronic CHF with diastolic dysfunction Chronic kidney disease stage IV. Baseline creatinine 2.8-3 Hypervolemic hyponatremia Hypertension Previous history of COVID-19 infection requiring mechanical ventilator Chronic hypoxic respiratory failure requiring oxygen at 5 L via nasal cannula History of infective endocarditis Moderate TR and moderate AR Hyperglycemia with uncontrolled diabetes type 1 Diabetic peripheral neuropathy and retinopathy Anxiety Previous history of smoking DVT prophylaxis with heparin subcu Plan: Patient will be continued on Lasix drip and monitor renal function closely. Continue with oxygen supplementation. Follow-up sodium level. Replace electrolytes. Patient will be started on insulin sliding scale and follow closely. Car diology, nephrology and pulmonary was consulted. Prognosis is guarded. Time with Patient: Greater than 30
[2021-11-16] MEDS: POTASSIUM CHLORIDE ER 20 MEQ TAB.ER PO SCH ×2 (23:12→23:47)
[2021-11-17 06:18] LABS: Glucose,Whole Blood 281 mg/dL (75-99)
[2021-11-17] MEDS: FUROSEMIDE 100 MG in SODIUM CHLORIDE 0.9% 90 ML IV SCH ×2 (06:24→15:29)
[2021-11-17] MEDS: PANTOPRAZOLE 40 MG TABLET PO SCH (06:26)
[2021-11-17] MEDS: INSULIN ASPART (NovoLOG) 100 UNIT/ML VIAL SQ SCH ×4 (06:26→20:26)
[2021-11-17 08:17] LABS: Magnesium 1.8 mg/dL (1.6-2.3); Potassium 3.6 mmol/L (3.5-5.1)
[2021-11-17 08:18] LABS: Anisocytosis Slight; Basophils % (A) 0 %; Eosinophils % (A) 0 %; HCT 25.1 % (39.0-53.0); Hypochromasia Marked; Lymphocytes # (A) 0.3 k/uL (1.0-4.8); Lymphocytes % (A) 2 %; MCH 27.9 pg (25.0-35.0); MCHC 29.9 g/dL (31.0-37.0); MCV 93.1 fL (80.0-100.0); Mean Platelet Volume 7.6; Monocytes # (A) 0.4 k/uL (0-1.0); Monocytes % (A) 2 %; Neutrophils # (A) 16.6 k/uL (1.3-7.7); Neutrophils % (A) 95 %; Platelet Count 306 k/uL (150-450); RBC 2.69 m/uL (4.30-5.90); RDW 16.5 % (11.5-15.5); WBC 17.5 k/uL (3.8-10.6)
[2021-11-17 08:31] LABS: HGB 7.5 gm/dL (13.0-17.5)
[2021-11-17] MEDS: HEPARIN SODIUM,PORCINE/PF 5,000 UNIT/0.5 ML SYRINGE SQ SCH ×3 (08:46→22:53)
[2021-11-17] MEDS: DULoxetine HCL 60 MG CAPSULE.DR PO SCH (08:47)
[2021-11-17] MEDS: ISOSORBIDE MONONITRATE ER 30 MG TAB.ER.24H PO SCH (08:47)
[2021-11-17] MEDS: amLODIPine 5 MG TAB PO SCH ×2 (08:47→19:52)
[2021-11-17] MEDS: ASPIRIN 81 MG PO SCH (08:47)
[2021-11-17] MEDS: METOPROLOL TARTRATE 50 MG TAB PO SCH ×2 (08:47→20:26)
[2021-11-17] MEDS ORDERED: POTASSIUM CHLORIDE ER 20 MEQ TAB.ER PO STA (09:38)
--- NOTE | 2021-11-17 09:39 | P.PN ---
Subjective Patient is seen in follow-up for chronic kidney disease. Renal function fairly stable. On Lasix drip. Nonoliguric. Currently on 5 L nasal cannula. Blood pressure stable. Dyspnea improved. Oral intake fair. Vital signs are stable. General: Awake and alert. HEENT: Head exam is unremarkable. LUNGS: Breath sounds decreased. HEART: Rate and Rhythm are regular. ABDOMEN: Soft, no tenderness. EXTREMITITES: 1+ edema. Chronic changes noted. Objective - Vital Signs Vital signs: Vital Signs Temp 97.6 F 11/17/21 07:45 Pulse 76 11/17/21 07:45 Resp 16 11/17/21 07:45 BP 115/56 11/17/21 07:45 Pulse Ox 93 L 11/17/21 07:45 Intake & Output 11/16/21 11/17/21 11/17/21 18:59 06:59 18:59 Intake Total 694.167 Output Total 1000 Balance -305.833 Weight 90.718 kg 92 kg Intake: Intake, IV Titration 154.167 Amount Furosemide 100 mg In 154.167 Sodium Chloride 0.9% 90 ml @ 10 MG/HR 10 mls/hr IV .Q10H [facility] Rx#: [id number] Oral 540 Output: Urine 1000 Other: Voiding Method Indwelling Catheter Indwelling Catheter # Bowel Movements 1 - Labs CBC & Chem 7: 11/17/21 06:40 11/17/21 06:40 Labs: Abnormal Lab Results - Last 24 Hours (Table) 11/16/21 11/16/21 11/17/21 Range/Units 11:17 21:29 06:16 WBC (3.8-10.6) k/uL RBC (4.30-5.90) m/uL Hgb (13.0-17.5) gm/dL Hct (39.0-53.0) % MCHC (31.0-37.0) g/dL RDW (11.5-15.5) % Neutrophils # (1.3-7.7) k/uL Lymphocytes # (1.0-4.8) k/uL Sodium 129 L (137-145) mmol/L Potassium 3.3 L (3.5-5.1) mmol/L BUN 84 H (9-20) mg/dL Creatinine 2.96 H (0.66-1.25) mg/dL Glucose 223 H (74-99) mg/dL POC Glucose (mg/dL) 271 H 281 H (75-99) mg/dL Calcium 7.1 L (8.4-10.2) mg/dL 11/17/21 11/17/21 Range/Units 06:40 06:40 WBC 17.5 H (3.8-10.6) k/uL RBC 2.69 L (4.30-5.90) m/uL Hgb 7.5 L D (13.0-17.5) gm/dL Hct 25.1 L (39.0-53.0) % MCHC 29.9 L (31.0-37.0) g/dL RDW 16.5 H (11.5-15.5) % Neutrophils # 16.6 H (1.3-7.7) k/uL Lymphocytes # 0.3 L (1.0-4.8) k/uL Sodium 130 L (137-145) mmol/L Potassium (3.5-5.1) mmol/L BUN 85 H (9-20) mg/dL Creatinine 3.06 H (0.66-1.25) mg/dL Glucose 157 H (74-99) mg/dL POC Glucose (mg/dL) (75-99) mg/dL Calcium 7.0 L (8.4-10.2) mg/dL Assessment and Plan Plan: Assessment: 1. Chronic kidney disease stage IV secondary to diabetic kidney disease and cardiorenal syndrome with baseline creatinine in the range of 2.8-3. 2. Volume overload. Improving with diuresis. 3. Acute on chronic diastolic CHF and moderate tricuspid regurgitation. 4. Diabetes mellitus. 5. Hypervolemic hyponatremia. Slightly improved. 6. Hypertension with chronic kidney disease. Controlled. 7. Anemia of chronic kidney disease. Rule out iron deficiency. Denies any active bleeding. 8. Hypokalemia from diuresis. Plan: Maintain Lasix drip at 10 mL an hour. 1500 mL fluid restriction. Low-salt diet. Strict I's and O's. Continue to monitor renal function and urine output. Check iron studies. Check stool for occult blood. Replace potassium. Hold amlodipine for systolic blood pressure less than 120.
[2021-11-17 09:57] VITALS: BMI 31.7
[2021-11-17 10:42] LABS: Phosphorus 4.6 mg/dL (2.5-4.5)
[2021-11-17] MEDS: IPRATROPIUM-ALBUTEROL 3 ML NEB INHALATION SCH ×2 (10:53→20:34)
[2021-11-17 11:34] LABS: Glucose,Whole Blood 171 mg/dL (75-99)
--- NOTE | 2021-11-17 14:30 | P.PN ---
Subjective This is a 51-year-old male with a past medical history significant for hypertension, congestive heart failure, diabetes, bilateral neuropathy, chronic kidney disease and former nicotine dependence. Patient follows in the office with Dr. Dickson. We have been asked to see the patient in consultation for CHF. Patient presents emergency department for worsening shortness of breath, generalized weakness, increased weight cane, bilateral lower extremity edema, abdominal swelling and scrotal edema and some dizziness. Patient states that his symptoms have worsened the past 3 days. The patient currently denies any chest pain or pressure. His BNP was found to be elevated at 39,900. He was started on IV lasix drip per Nephrology. Patient seen and examined at bedside, no acute distress. He continues to have abdominal and scrotal edema. He denies chest pain or shortness of breath. He currently has no lower extremity edema. Patient with 1 L urine output the past 24 hours. He is currently maintained on IV Lasix [id number], aspirin 81 mg daily, amlodipine 5 mg twice a day, atorvastatin 40 mg nightly, Imdur 30 mg daily, metoprolol tartrate 50 mg twice a day Labs, sodium 130, potassium 3.6, BUN 85, serum creatinine 3.06, magnesium 1.8 PHYSICAL EXAM: VITAL SIGNS: Reviewed. GENERAL: Well-developed in no acute distress. HEENT:Neck supple. No JVD LUNGS: Respirations even and unlabored. Lungs essentially clear to auscultation bilaterally. HEART: Regular rate and rhythm. S1 and S2 heard. ABDOMEN: Soft. Nondistended. Nontender. Abdominal Edema noted. Scrotal edema also present. EXTREMITIES: Normal range of motion. No clubbing or cyanosis. Peripheral pulses intact. no lower extremity edema . Multiple scabs to lower extremities noted. NEUROLOGIC: Awake and alert. Oriented x 3. ASSESSMENT: Acute exacerbation of chronic heart failure with preserved EF, right sided heart failure Hypertension Hyperlipidemia Type 2 Diabetes mellitus Chronic kidney disease Dysautonomia Former nicotine dependence Aortic regurgitation PLAN: Continue IV Lasix per nephrology Repeat 2D echocardiogram to evaluate patient's aortic insufficiency. Patient with possible amyloid etiology with low voltage EKG, elevated BNP out of proportion to exam, heart failure with preserved EF and recurrent admissions with heart failure symptoms, follow up with repeat 2D echocardiogram Resume home cardiac medications aspirin, statin, metoprolol tartrate, imdur Patient not on ACEI/ARB due to renal function Monitor kidney function Accurate I&O, 1.5l fluid restriction Daily weights Further recommendations pending patient course Nurse practitioner note has been reviewed by physician. Signing provider agrees with the documented findings, assessment, and plan of care. Objective - Vital Signs Vital signs: Vital Signs Temp 96.2 F L 11/17/21 11:34 Pulse 69 11/17/21 12:55 Resp 12 11/17/21 12:55 BP 103/64 11/17/21 11:34 Pulse Ox 93 L 11/17/21 11:34 Intake & Output 11/16/21 11/17/21 11/17/21 18:59 06:59 18:59 Intake Total 694.167 354 Output Total 1000 325 Balance -305.833 29 Weight 90.718 kg 92 kg 92 kg Intake: Intake, IV Titration 154.167 Amount Furosemide 100 mg In 154.167 Sodium Chloride 0.9% 90 ml @ 10 MG/HR 10 mls/hr IV .Q10H [facility] Rx#: [id number] Oral 540 354 Output: Urine 1000 325 Other: Voiding Method Indwelling Catheter Indwelling Catheter Indwelling Catheter # Bowel Movements 1 - Labs CBC & Chem 7: 11/17/21 06:40 11/17/21 06:40 Labs: Abnormal Lab Results - Last 24 Hours (Table) 11/16/21 11/17/21 11/17/21 Range/Units 21:29 06:16 06:40 WBC (3.8-10.6) k/uL RBC (4.30-5.90) m/uL Hgb (13.0-17.5) gm/dL Hct (39.0-53.0) % MCHC (31.0-37.0) g/dL RDW (11.5-15.5) % Neutrophils # (1.3-7.7) k/uL Lymphocytes # (1.0-4.8) k/uL Sodium 130 L (137-145) mmol/L BUN 85 H (9-20) mg/dL Creatinine 3.06 H (0.66-1.25) mg/dL Glucose 157 H (74-99) mg/dL POC Glucose (mg/dL) 271 H 281 H (75-99) mg/dL Calcium 7.0 L (8.4-10.2) mg/dL Phosphorus (2.5-4.5) mg/dL 11/17/21 11/17/21 11/17/21 Range/Units 06:40 06:40 11:32 WBC 17.5 H (3.8-10.6) k/uL RBC 2.69 L (4.30-5.90) m/uL Hgb 7.5 L D (13.0-17.5) gm/dL Hct 25.1 L (39.0-53.0) % MCHC 29.9 L (31.0-37.0) g/dL RDW 16.5 H (11.5-15.5) % Neutrophils # 16.6 H (1.3-7.7) k/uL Lymphocytes # 0.3 L (1.0-4.8) k/uL Sodium (137-145) mmol/L BUN (9-20) mg/dL Creatinine (0.66-1.25) mg/dL Glucose (74-99) mg/dL POC Glucose (mg/dL) 171 H (75-99) mg/dL Calcium (8.4-10.2) mg/dL Phosphorus 4.6 H (2.5-4.5) mg/dL
--- NOTE | 2021-11-17 15:27 | P.PN ---
Subjective Progress Note Date: 11/17/21 Principal diagnosis: Dyspnea, hypoxia This is a very pleasant 51-year-old male patient is a very well-known to me. I took care of this patient during a prolonged hospitalization back in August 2021 that extended through September 2021. The patient has multiple medical problems. The patient is post coronary 19 pneumonia that occurred last year requiring intubation mechanical ventilation. He is known to have previous history of infective endocarditis of the aortic valve, previous history of MRSA soft tissue infection involving the left flank Combigan by cellulitis/abscess, he is diabetic1, peripheral diabetic neuropathy and retinopathy, diastolic heart failure, hypertension, hyperlipidemia, chronic lower extremity ulceration of the skin at the radius stages, COPD, and chronic stage for kidney disease that has been followed up by Dr. Christine on outpatient basis. The patient came into the emergency having more shortness of breath and more swelling in his abdomen and his lower extremities bilaterally. He felt that he was getting more overloaded with fluids. He typically is on oxygen at 5 L at home and currently is on 6 L. His chest x-ray showing some increased pulmonary vascular markings/edema bilaterally. No cough. No sputum production. No chest tightness. No wheezing. No significant leukocytosis. White cell count is at 9.3 with a hemoglobin of 11.9, his creatinine is up to 3.05 and the patient has stage IV kidney disease with a GFR of 23. Sodium level is at 1:30. Glucose is up to 39, proBNP level is 39,009 100 and LFTs are essentially within normal limits. INR is at 1.4 with a PT of 14.3 and a PTT of 27. His last echocardiogram that was done on 09/23/2021 showed a ejection fraction of 55-60%, he had moderate aortic regurgitation, moderate tricuspid regurgitation, moderate to severe pulmonary hypertension with a PA pressure of 51, moderate degree of concentric left ventricular hypertrophy. Based on his medication from home, the patient was taking Demadex 20 mg by mouth twice a day. Currently he is on Lasix drip at 10 mg an hour. Giraldo catheter is in place and the patient is producing urine output for now. On 11/17/2021 patient is seen in follow-up on selective care unit, she is lethargic, but arousable, he is currently on 5 L of oxygen pulse ox is 93-99%, he remains on Lasix infusion at 10 mg per hour and he is in -300 mL negative nodes balance over the last 24 hours. Does not appear to be in any acute distress, he answers simple questions, he dozes back off. [place] any chest discomfort. Today's labs have been reviewed, his renal function is fairly stable, with BUN of 85 and creatinine of 3.06. Sodium is improved at 1:30, respiratory electrolytes were within normal limits, potassium is 3.6, white blood cell count of 17.5, hemoglobin is 7.5. Echocardiogram has been completed, awaiting official readout. Generally patient is quite weak. Has been on and off lethargic. He remains generally swollen with abdominal wall edema, upper and lower extremity edema. He continues on nebulized bronchodilators. Objective - Vital Signs Vital signs: Vital Signs Temp 96.2 F L 11/17/21 11:34 Pulse 69 11/17/21 12:55 Resp 12 11/17/21 12:55 BP 103/64 11/17/21 11:34 Pulse Ox 93 L 11/17/21 11:34 Intake & Output 11/16/21 11/17/21 11/17/21 18:59 06:59 18:59 Intake Total 694.167 354 Output Total 1000 325 Balance -305.833 29 Weight 90.718 kg 92 kg 92 kg Intake: Intake, IV Titration 154.167 Amount Furosemide 100 mg In 154.167 Sodium Chloride 0.9% 90 ml @ 10 MG/HR 10 mls/hr IV .Q10H [facility] Rx#: [id number] Oral 540 354 Output: Urine 1000 325 Other: Voiding Method Indwelling Catheter Indwelling Catheter Indwelling Catheter # Bowel Movements 1 - Exam GENERAL EXAM: Alert, very pleasant, 51-year-old chronically ill-looking lethargic but arousable white male, on 5 L of oxygen and a pulse ox of 99% comfortable in no apparent distress. HEAD: Normocephalic/atraumatic. EYES: Normal reaction of pupils, equal size. Conjunctiva pink, sclera white. NOSE: Clear with pink turbinates. THROAT: No erythema or exudates. NECK: No masses, no JVD, no thyroid enlargement, no adenopathy. CHEST: No chest wall deformity. Symmetrical expansion. LUNGS: Equal air entry with no crackles, wheeze, rhonchi or dullness. CVS: Regular rate and rhythm, normal S1 and S2, no gallops, no murmurs, no rubs ABDOMEN: Soft, nontender. No hepatosplenomegaly, normal bowel sounds, no guarding or rigidity. EXTREMITIES: No clubbing, no edema, no cyanosis, 2+ pulses and upper and lower extremities. MUSCULOSKELETAL: Muscle strength and tone normal. SPINE: No scoliosis or deformity SKIN: No rashes CENTRAL NERVOUS SYSTEM: Lethargic but arousable No focal deficits, tone is normal in all 4 extremities. - Labs CBC & Chem 7: 11/17/21 06:40 11/17/21 06:40 Labs: Abnormal Lab Results - Last 24 Hours (Table) 11/16/21 11/17/21 11/17/21 Range/Units 21:29 06:16 06:40 WBC (3.8-10.6) k/uL RBC (4.30-5.90) m/uL Hgb (13.0-17.5) gm/dL Hct (39.0-53.0) % MCHC (31.0-37.0) g/dL RDW (11.5-15.5) % Neutrophils # (1.3-7.7) k/uL Lymphocytes # (1.0-4.8) k/uL Sodium 130 L (137-145) mmol/L BUN 85 H (9-20) mg/dL Creatinine 3.06 H (0.66-1.25) mg/dL Glucose 157 H (74-99) mg/dL POC Glucose (mg/dL) 271 H 281 H (75-99) mg/dL Calcium 7.0 L (8.4-10.2) mg/dL Phosphorus (2.5-4.5) mg/dL 11/17/21 11/17/21 11/17/21 Range/Units 06:40 06:40 11:32 WBC 17.5 H (3.8-10.6) k/uL RBC 2.69 L (4.30-5.90) m/uL Hgb 7.5 L D (13.0-17.5) gm/dL Hct 25.1 L (39.0-53.0) % MCHC 29.9 L (31.0-37.0) g/dL RDW 16.5 H (11.5-15.5) % Neutrophils # 16.6 H (1.3-7.7) k/uL Lymphocytes # 0.3 L (1.0-4.8) k/uL Sodium (137-145) mmol/L BUN (9-20) mg/dL Creatinine (0.66-1.25) mg/dL Glucose (74-99) mg/dL POC Glucose (mg/dL) 171 H (75-99) mg/dL Calcium (8.4-10.2) mg/dL Phosphorus 4.6 H (2.5-4.5) mg/dL Assessment and Plan Plan: Assessment: #1. Acute on chronic hypoxic respiratory failure secondary to acute fluid overload and interstitial edema. No evidence of superinfection at this point in time, currently on 5 L of oxygen and this is his home dose oxygen. His hypoxia has improved. Patient remains on diuretics. Patient continues to be generally swollen with increased abdominal wall swelling, scrotal edema, lower extremity edema he is stage IV chronic kidney disease. Currently remains on Lasix 10 mg an hour infusion #2. COVID-19 pneumonia with secondary respiratory failure hospitalized at [facility] in 2020 #3. Chronic stage IV kidney disease #4. 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 Diabetes mellitus type 1, poorly controlled #7. Diabetic peripheral neuropathy, diabetic retinopathy #8. Congestive heart failure with diastolic dysfunction, with moderate to severe aortic regurgitation, moderately severe tricuspid regurgitation secondary to pulmonary hypertension #9. Hypertension #10. Hyperlipidemia #11. Multiple bilateral lower extremity ulcerations with various healing stages and diabetic peripheral neuropathy #12. COPD #13. Medication noncompliance #14. Medical debility secondary to above-mentioned comorbidities Plan: Continue current medical treatment Continue diuretics per nephrology Patient is still significantly fluid overloaded but maintaining negative net fluid balance Continue nebulized bronchodilators Monitor electrolytes and renal profile We'll continue to follow his clinical course Overall long-term prognosis is guarded I have personally seen and examined the patient, performed the documentation and the assessment and plan as written. Number of minutes spent on the visit: [10] Time with Patient: Less than 30 (I have personally seen and examined the patient and reviewed the documentation. I performed a joint evaluation with the nurse practitioner in this evaluation was done more than 20 minutes. I fully agree with the documentation above and the plan of care.. The patient's has bilateral pleural effus)
[2021-11-17 16:41] LABS: Glucose,Whole Blood 128 mg/dL (75-99)
[2021-11-17] MEDS: HYDROcodone/APAP 5-325MG 1 EACH TAB PO PRN ×2 (17:35→22:57)
[2021-11-17 20:15] LABS: Glucose,Whole Blood 176 mg/dL (75-99)
[2021-11-17] MEDS: ATORVASTATIN 40 MG TAB PO SCH (20:26)
[2021-11-17] MEDS: GABAPENTIN 100 MG CAP PO SCH (20:26)
[2021-11-17 23:38] LABS: % Iron Saturation 8.65 (15.00-50.00)
--- NOTE | 2021-11-17 23:59 | P.PN ---
Subjective Progress Note Date: 11/17/21 Patient is a 51-year-old male with a known history of chronic kidney disease stage IV, diabetes type 2 insulin-dependent, hypertension, hyperlipidemia, chronic CHF and anxiety and previous history of smoking presents to ER with complaints of difficulty breathing and generalized weakness. Patient also hav ing worsening bilateral lower extremity edema and weight gain. Symptoms have been getting worse for the past 3 days. Denied any complaints of cough or sputum production. No fever no chills. No headache or dizziness or lightheadedness. Chest x-ray showed mild cardiomegaly. Prominent hypoventila tory changes limiting reassessment. Patchy opacities and possible trace effusions. Correlate for mild to moderate CHF. Patient was started on IV Lasix 40 mg every 8 hourly in the ER. EKG showed sinus tachycardia. Laboratory showed WBC 9.3 hemoglobin 11.9 and platelets 259 sodium 130 potassium 3.7 chloride 97 bicarb is 23 BUN 84 and creatinine 3.05 and blood sugar is 239 lactic acid 1.5 total bilirubin was 1.5 alk phos 207 and proBNP 00245 and albumin level is 2.5. Most recent echocardiogram in September 2021 showed ejection fraction 55 to 60% and moderate TR and mild MR and moderate TR and mild pulmonary hypertension and small generalized pericardial effusion and large pleural effusion. Patient was previously admitted to the hospital due to COVID-19 infection requiring mechanical ventilation and also history of infective endocarditis. Patient is oxygen at 5 L via nasal cannula at home. 11/17/2021 Patient is currently in the telemetry unit. Awake alert and oriented. Continued on Lasix drip. Requiring oxygen at 5 L via nasal cannula. Patient states that her breathing is better today. Still having bilateral leg swelling and generalized edema. Denies any complaints of chest pain. No fever or chills. No nausea vomiting abdominal pain or diarrhea. Laboratory data showed WBC 17.5 hemoglobin 7.4 and platelets 306 Sodium 130 potassium 3.6 chloride 100 BUN 85 creatinine 3.06 and blood sugar 157 . Pulmonary nephrology is on board. Current medications reviewed. Objective - Vital Signs Vital signs: Vital Signs Temp 97.5 F L 11/17/21 19:47 Pulse 70 11/17/21 20:00 Resp 20 11/17/21 19:47 BP 101/50 11/17/21 19:47 Pulse Ox 92 L 11/17/21 19:47 Intake & Output 11/17/21 11/17/21 11/18/21 06:59 18:59 06:59 Intake Total 694.167 444.833 Output Total 1000 325 Balance -305.833 119.833 Weight 92 kg 92 kg Intake: Intake, IV Titration 154.167 90.833 Amount Furosemide 100 mg In 154.167 90.833 Sodium Chloride 0.9% 90 ml @ 10 MG/HR 10 mls/hr IV .Q10H [facility] Rx#: [id number] Oral 540 354 Output: Urine 1000 325 Other: Voiding Method Indwelling Catheter Indwelling Catheter Indwelling Catheter # Bowel Movements 1 - Exam PHYSICAL EXAMINATION: Patient is lying in the bed comfortably, no acute distress, awake alert and oriented. Lethargic and drowsy.. HEENT: Normocephalic. Neck is supple. Pupils reactive. Nostrils clear. Oral cavity is moist. Neck reveals no JVD, carotid bruits, or thyromegaly. CHEST EXAMINATION: Trachea is central. Symmetrical expansion. Bibasilar diminished sounds otherwise lung manzo clear to auscultation and percussion. CARDIAC: Normal S1, S2 with no gallops. No murmurs ABDOMEN: Soft. Bowel sounds normal. No organomegaly. No abdominal bruits. Extremities: Bilateral 3+ pedal edema no clubbing or cyanosis Neurologically awake, alert, oriented x3 with well-coordinated movements. No focal deficits noted Skin: No rash or skin lesions. Psychiatric: Cooperative. Nonsuicidal, anxious. Musculoskeletal: No joint swelling or deformity. Normal range of motion. - Labs CBC & Chem 7: 11/17/21 06:40 11/17/21 06:40 Labs: Abnormal Lab Results - Last 24 Hours (Table) 11/17/21 11/17/21 11/17/21 Range/Units 06:16 06:40 06:40 WBC 17.5 H (3.8-10.6) k/uL RBC 2.69 L (4.30-5.90) m/uL Hgb 7.5 L D (13.0-17.5) gm/dL Hct 25.1 L (39.0-53.0) % MCHC 29.9 L (31.0-37.0) g/dL RDW 16.5 H (11.5-15.5) % Neutrophils # 16.6 H (1.3-7.7) k/uL Lymphocytes # 0.3 L (1.0-4.8) k/uL Sodium 130 L (137-145) mmol/L BUN 85 H (9-20) mg/dL Creatinine 3.06 H (0.66-1.25) mg/dL Glucose 157 H (74-99) mg/dL POC Glucose (mg/dL) 281 H (75-99) mg/dL Calcium 7.0 L (8.4-10.2) mg/dL Phosphorus (2.5-4.5) mg/dL 11/17/21 11/17/21 11/17/21 Range/Units 06:40 11:32 16:37 WBC (3.8-10.6) k/uL RBC (4.30-5.90) m/uL Hgb (13.0-17.5) gm/dL Hct (39.0-53.0) % MCHC (31.0-37.0) g/dL RDW (11.5-15.5) % Neutrophils # (1.3-7.7) k/uL Lymphocytes # (1.0-4.8) k/uL Sodium (137-145) mmol/L BUN (9-20) mg/dL Creatinine (0.66-1.25) mg/dL Glucose (74-99) mg/dL POC Glucose (mg/dL) 171 H 128 H (75-99) mg/dL Calcium (8.4-10.2) mg/dL Phosphorus 4.6 H (2.5-4.5) mg/dL 11/17/21 Range/Units 20:12 WBC (3.8-10.6) k/uL RBC (4.30-5.90) m/uL Hgb (13.0-17.5) gm/dL Hct (39.0-53.0) % MCHC (31.0-37.0) g/dL RDW (11.5-15.5) % Neutrophils # (1.3-7.7) k/uL Lymphocytes # (1.0-4.8) k/uL Sodium (137-145) mmol/L BUN (9-20) mg/dL Creatinine (0.66-1.25) mg/dL Glucose (74-99) mg/dL POC Glucose (mg/dL) 176 H (75-99) mg/dL Calcium (8.4-10.2) mg/dL Phosphorus (2.5-4.5) mg/dL Assessment and Plan Assessment: Worsening shortness of breath secondary to fluid overload/ anasarca due to CKD and acute CHF. Acute on chronic CHF with diastolic dysfunction Chronic kidney disease stage IV. Baseline creatinine 2.8-3 Hypervolemic hyponatremia Hypertension Previous history of COVID-19 infection requiring mechanical ventilator Chronic hypoxic respiratory failure requiring oxygen at 5 L via nasal cannula History of infective endocarditis Moderate TR and moderate AR Hyperglycemia with uncontrolled diabetes type 1 Diabetic peripheral neuropathy and retinopathy Anxiety Previous history of smoking DVT prophylaxis with heparin subcu Plan: Patient will be continued on Lasix drip and monitor renal function closely. pt. is non oliguric. Continue with oxygen supplementation. Follow-up sodium level. Replace electrolytes. Patient was started on insulin sliding scale and follow closely. Cardiology, nephrology and pulmonary is on board. Prognosis is guarded. Time with Patient: Greater than 30
[2021-11-18] MEDS: FUROSEMIDE 100 MG in SODIUM CHLORIDE 0.9% 90 ML IV SCH (00:30)
[2021-11-18] MEDS ORDERED: FUROSEMIDE 10 MG/ML 10 ML VIAL IV STA (05:11)
[2021-11-18 06:10] LABS: Glucose,Whole Blood 131 mg/dL (75-99)
[2021-11-18] MEDS: INSULIN ASPART (NovoLOG) 100 UNIT/ML VIAL SQ SCH ×4 (06:21→20:55)
[2021-11-18] MEDS: PANTOPRAZOLE 40 MG TABLET PO SCH (06:21)
[2021-11-18 07:30] LABS: Anisocytosis Slight; Basophils % (A) 0 %; Eosinophils # (A) 0.1 k/uL (0-0.7); Eosinophils % (A) 0 %; HCT 23.2 % (39.0-53.0); HGB 7.1 gm/dL (13.0-17.5); Hypochromasia Marked; Lymphocytes # (A) 0.3 k/uL (1.0-4.8); Lymphocytes % (A) 2 %; MCH 28.6 pg (25.0-35.0); MCHC 30.4 g/dL (31.0-37.0); Mean Platelet Volume 7.7; Monocytes # (A) 0.8 k/uL (0-1.0); Monocytes % (A) 4 %; Neutrophils # (A) 19.4 k/uL (1.3-7.7); Neutrophils % (A) 94 %; Platelet Count 304 k/uL (150-450); RBC 2.47 m/uL (4.30-5.90); RDW 16.2 % (11.5-15.5); WBC 20.7 k/uL (3.8-10.6)
[2021-11-18 08:01] LABS: Calcium 7.2 mg/dL (8.4-10.2); Magnesium 1.8 mg/dL (1.6-2.3); Potassium 4.2 mmol/L (3.5-5.1)
[2021-11-18] MEDS: ISOSORBIDE MONONITRATE ER 30 MG TAB.ER.24H PO SCH (08:30)
[2021-11-18] MEDS: amLODIPine 5 MG TAB PO SCH (08:30)
[2021-11-18] MEDS: METOPROLOL TARTRATE 50 MG TAB PO SCH (08:31)
[2021-11-18] MEDS: IPRATROPIUM-ALBUTEROL 3 ML NEB INHALATION SCH ×2 (08:36→20:50)
[2021-11-18] MEDS: ASPIRIN 81 MG PO SCH (09:19)
[2021-11-18] MEDS: HEPARIN SODIUM,PORCINE/PF 5,000 UNIT/0.5 ML SYRINGE SQ SCH ×2 (09:19→15:31)
--- NOTE | 2021-11-18 09:34 | P.PN ---
Subjective Patient is seen in follow-up for chronic kidney disease. Renal function worse. Urine output 80 mL overnight despite Lasix drip. Also received 60 mg IV push Lasix this morning with no response in urine output. Currently on 5 L nasal cannula. Blood pressure on the lower side. Overload fair. Vital signs are stable. General: Awake and alert. HEENT: Head exam is unremarkable. LUNGS: Breath sounds decreased. HEART: Rate and Rhythm are regular. ABDOMEN: Soft, no tenderness. EXTREMITITES: 1+ edema. Chronic changes noted. Objective - Vital Signs Vital signs: Vital Signs Temp 97.5 F L 11/17/21 19:47 Pulse 70 11/18/21 04:00 Resp 20 11/18/21 04:00 BP 94/50 11/18/21 04:00 Pulse Ox 91 L 11/18/21 04:00 Intake & Output 11/17/21 11/18/21 11/18/21 18:59 06:59 18:59 Intake Total 444.833 330.167 Output Total 325 85 Balance 119.833 245.167 Weight 92 kg 96.5 kg Intake: Intake, IV Titration 90.833 90.167 Amount Furosemide 100 mg In 90.833 90.167 Sodium Chloride 0.9% 90 ml @ 10 MG/HR 10 mls/hr IV .Q10H [facility] Rx#: [id number] Oral 354 240 Output: Urine 325 85 Other: Voiding Method Indwelling Catheter Indwelling Catheter - Labs CBC & Chem 7: 11/18/21 06:32 11/18/21 06:32 Labs: Abnormal Lab Results - Last 24 Hours (Table) 11/17/21 11/17/21 11/17/21 Range/Units 06:40 11:32 16:37 WBC (3.8-10.6) k/uL RBC (4.30-5.90) m/uL Hgb (13.0-17.5) gm/dL Hct (39.0-53.0) % MCHC (31.0-37.0) g/dL RDW (11.5-15.5) % Neutrophils # (1.3-7.7) k/uL Lymphocytes # (1.0-4.8) k/uL Sodium (137-145) mmol/L Carbon Dioxide (22-30) mmol/L BUN (9-20) mg/dL Creatinine (0.66-1.25) mg/dL POC Glucose (mg/dL) 171 H 128 H (75-99) mg/dL Calcium (8.4-10.2) mg/dL Phosphorus 4.6 H (2.5-4.5) mg/dL Iron 10 L (65-175) ug/dL TIBC 111 L (228-460) ug/dL % Saturation 8.65 L (15.00-50.00) Transferrin 79.1 L (204.0-354.0) mg/dL Ferritin 564.0 H (22.0-322.0) ng/mL 11/17/21 11/18/21 11/18/21 Range/Units 20:12 06:09 06:32 WBC (3.8-10.6) k/uL RBC (4.30-5.90) m/uL Hgb (13.0-17.5) gm/dL Hct (39.0-53.0) % MCHC (31.0-37.0) g/dL RDW (11.5-15.5) % Neutrophils # (1.3-7.7) k/uL Lymphocytes # (1.0-4.8) k/uL Sodium 130 L (137-145) mmol/L Carbon Dioxide 20 L (22-30) mmol/L BUN 96 H (9-20) mg/dL Creatinine 3.21 H (0.66-1.25) mg/dL POC Glucose (mg/dL) 176 H 131 H (75-99) mg/dL Calcium 7.2 L (8.4-10.2) mg/dL Phosphorus (2.5-4.5) mg/dL Iron (65-175) ug/dL TIBC (228-460) ug/dL % Saturation (15.00-50.00) Transferrin (204.0-354.0) mg/dL Ferritin (22.0-322.0) ng/mL 11/18/21 Range/Units 06:32 WBC 20.7 H (3.8-10.6) k/uL RBC 2.47 L (4.30-5.90) m/uL Hgb 7.1 L (13.0-17.5) gm/dL Hct 23.2 L (39.0-53.0) % MCHC 30.4 L (31.0-37.0) g/dL RDW 16.2 H (11.5-15.5) % Neutrophils # 19.4 H (1.3-7.7) k/uL Lymphocytes # 0.3 L (1.0-4.8) k/uL Sodium (137-145) mmol/L Carbon Dioxide (22-30) mmol/L BUN (9-20) mg/dL Creatinine (0.66-1.25) mg/dL POC Glucose (mg/dL) (75-99) mg/dL Calcium (8.4-10.2) mg/dL Phosphorus (2.5-4.5) mg/dL Iron (65-175) ug/dL TIBC (228-460) ug/dL % Saturation (15.00-50.00) Transferrin (204.0-354.0) mg/dL Ferritin (22.0-322.0) ng/mL Assessment and Plan Plan: Assessment: 1. Chronic kidney disease stage IV secondary to diabetic kidney disease and cardiorenal syndrome with baseline creatinine in the range of 2.8-3. 2. Volume overload. 3. Acute on chronic diastolic CHF and moderate tricuspid regurgitation. 4. Diabetes mellitus. 5. Hypervolemic hyponatremia. 6. Hypertension with chronic kidney disease. Blood pressure on the lower side. 7. Anemia of chronic kidney disease. Iron deficiency noted. Denies any active bleeding. 8. Hypokalemia from diuresis. Improved. Plan: Stop Lasix drip. 1500 mL fluid restriction. Low-salt diet. Strict I's and O's. Continue to monitor renal function and urine output. Add IV iron. Follow-up stool for occult blood. Due to volume overload and oliguria, initiated renal replacement therapy. Consult vascular surgery for catheter placement. Plan to first treatment of hemodialysis today and second treatment tomorrow. Patient agreeable. Follow-up echocardiogram.
[2021-11-18] MEDS: SODIUM FERRIC GLUCONAT-SUCROSE 125 MG in SODIUM CHLORIDE 0.9% 100 ML IVPB SCH (10:25)
[2021-11-18] MEDS: DULoxetine HCL 60 MG CAPSULE.DR PO SCH (10:25)
[2021-11-18 11:50] LABS: Glucose,Whole Blood 108 mg/dL (75-99)
[2021-11-18 12:27] LABS: Amorphous Sediment,Urine Rare /hpf; Appearance,Urine Cloudy (Clear); Bilirubin,Urine Negative (Negative); Blood,Urine Moderate (Negative); Color,Urine Dark Yellow; Glucose,Urine (UA) Negative (Negative); Ketones,Urine Negative (Negative); Leukocyte Esterase,Urine Small (Negative); Nitrite,Urine Negative (Negative); PH, Urine 5.5 (5.0-8.0); Protein,Urine 2+ (Negative); RBC,Urine 13 /hpf (0-5); Specific Gravity,Urine 1.018 (1.001-1.035); Squamous Epithelial Cell,Urine <1 /hpf (0-4); WBC,Urine 4 /hpf (0-5)
[2021-11-18] MEDS: MIDODRINE 5 MG TAB PO SCH ×2 (12:48→18:14)
--- NOTE | 2021-11-18 12:53 | P.PN ---
Subjective This is a 51-year-old male with a past medical history significant for hypertension, congestive heart failure, diabetes, bilateral neuropathy, chronic kidney disease and former nicotine dependence. Patient follows in the office with Dr. Dickson. We have been asked to see the patient in consultation for CHF. Patient presents emergency department for worsening shortness of breath, generalized weakness, increased weight cane, bilateral lower extremity edema, abdominal swelling and scrotal edema and some dizziness. Patient states that his symptoms have worsened the past 3 days. The patient currently denies any chest pain or pressure. His BNP was found to be elevated at 39,900. He was started on IV lasix drip per Nephrology. Patient seen and examined at bedside, no acute distress. He continues to have abdominal and scrotal edema. He has not improved since admission. Renal function worse. Urine output 80 mL overnight despite Lasix drip. His Lasix drip has been discontinued per nephrology and plan for HD catheter placement and initiation of dialysis. He is currently maintained on IV Lasix 60mg given once, aspirin 81 mg daily, atorvastatin 40 mg nightly, Imdur 30 mg daily, metoprolol tartrate 50 mg twice a day Labs, sodium 130, potassium 4.2, BUN 96, serum creatinine 2.21, magnesium 1.8 PHYSICAL EXAM: VITAL SIGNS: Reviewed. GENERAL: In no acute distress. Lethargic HEENT:Neck supple. No JVD LUNGS: Respirations even and unlabored. Lungs essentially clear to auscultation bilaterally. HEART: Regular rate and rhythm. S1 and S2 heard. ABDOMEN: Soft. Nondistended. Nontender. Abdominal Edema noted. Scrotal edema also present. EXTREMITIES: Normal range of motion. No clubbing or cyanosis. Peripheral pulses intact. no lower extremity edema . Multiple scabs to lower extremities noted. NEUROLOGIC: Awake and alert. Oriented x 3. ASSESSMENT: Acute exacerbation of chronic heart failure with preserved EF, right sided heart failure Hypertension Hyperlipidemia Type 2 Diabetes mellitus Chronic kidney disease Dysautonomia Former nicotine dependence Aortic regurgitation PLAN: Plan for dialysis catheter placement and hemodialysis per nephrology Patient's repeat echocardiogram reviewed by Dr. Medrano does not appear to be amyloid etiology but confirmation patient needs cardiac MRI imaging Resume home cardiac medications aspirin, statin, metoprolol tartrate, imdur Patient not on ACEI/ARB due to renal function Monitor kidney function Accurate I&O, Daily weights Further recommendations pending patient course Nurse practitioner note has been reviewed by physician. Signing provider agrees with the documented findings, assessment, and plan of care. Objective - Vital Signs Vital signs: Vital Signs Temp 98.1 F 11/18/21 11:42 Pulse 66 11/18/21 11:42 Resp 16 11/18/21 11:42 BP 83/50 11/18/21 11:42 Pulse Ox 90 L 11/18/21 11:42 Intake & Output 11/17/21 11/18/21 11/18/21 18:59 06:59 18:59 Intake Total 444.833 330.167 240 Output Total 325 85 Balance 119.833 245.167 240 Weight 92 kg 96.5 kg Intake: Intake, IV Titration 90.833 90.167 Amount Furosemide 100 mg In 90.833 90.167 Sodium Chloride 0.9% 90 ml @ 10 MG/HR 10 mls/hr IV .Q10H [facility] Rx#: [id number] Oral 354 240 240 Output: Urine 325 85 Other: Voiding Method Indwelling Catheter Indwelling Catheter Indwelling Catheter - Labs CBC & Chem 7: 11/18/21 06:32 11/18/21 06:32 Labs: Abnormal Lab Results - Last 24 Hours (Table) 11/17/21 11/17/21 11/17/21 Range/Units 06:40 16:37 20:12 WBC (3.8-10.6) k/uL RBC (4.30-5.90) m/uL Hgb (13.0-17.5) gm/dL Hct (39.0-53.0) % MCHC (31.0-37.0) g/dL RDW (11.5-15.5) % Neutrophils # (1.3-7.7) k/uL Lymphocytes # (1.0-4.8) k/uL Sodium (137-145) mmol/L Carbon Dioxide (22-30) mmol/L BUN (9-20) mg/dL Creatinine (0.66-1.25) mg/dL POC Glucose (mg/dL) 128 H 176 H (75-99) mg/dL Calcium (8.4-10.2) mg/dL Iron 10 L (65-175) ug/dL TIBC 111 L (228-460) ug/dL % Saturation 8.65 L (15.00-50.00) Transferrin 79.1 L (204.0-354.0) mg/dL Ferritin 564.0 H (22.0-322.0) ng/mL Urine Protein (Negative) Urine Blood (Negative) Ur Leukocyte Esterase (Negative) Urine RBC (0-5) /hpf Amorphous Sediment (None) /hpf 11/18/21 11/18/21 11/18/21 Range/Units 06:09 06:32 06:32 WBC 20.7 H (3.8-10.6) k/uL RBC 2.47 L (4.30-5.90) m/uL Hgb 7.1 L (13.0-17.5) gm/dL Hct 23.2 L (39.0-53.0) % MCHC 30.4 L (31.0-37.0) g/dL RDW 16.2 H (11.5-15.5) % Neutrophils # 19.4 H (1.3-7.7) k/uL Lymphocytes # 0.3 L (1.0-4.8) k/uL Sodium 130 L (137-145) mmol/L Carbon Dioxide 20 L (22-30) mmol/L BUN 96 H (9-20) mg/dL Creatinine 3.21 H (0.66-1.25) mg/dL POC Glucose (mg/dL) 131 H (75-99) mg/dL Calcium 7.2 L (8.4-10.2) mg/dL Iron (65-175) ug/dL TIBC (228-460) ug/dL % Saturation (15.00-50.00) Transferrin (204.0-354.0) mg/dL Ferritin (22.0-322.0) ng/mL Urine Protein (Negative) Urine Blood (Negative) Ur Leukocyte Esterase (Negative) Urine RBC (0-5) /hpf Amorphous Sediment (None) /hpf 11/18/21 11/18/21 Range/Units 11:48 12:02 WBC (3.8-10.6) k/uL RBC (4.30-5.90) m/uL Hgb (13.0-17.5) gm/dL Hct (39.0-53.0) % MCHC (31.0-37.0) g/dL RDW (11.5-15.5) % Neutrophils # (1.3-7.7) k/uL Lymphocytes # (1.0-4.8) k/uL Sodium (137-145) mmol/L Carbon Dioxide (22-30) mmol/L BUN (9-20) mg/dL Creatinine (0.66-1.25) mg/dL POC Glucose (mg/dL) 108 H (75-99) mg/dL Calcium (8.4-10.2) mg/dL Iron (65-175) ug/dL TIBC (228-460) ug/dL % Saturation (15.00-50.00) Transferrin (204.0-354.0) mg/dL Ferritin (22.0-322.0) ng/mL Urine Protein 2+ H (Negative) Urine Blood Moderate H (Negative) Ur Leukocyte Esterase Small H (Negative) Urine RBC 13 H (0-5) /hpf Amorphous Sediment Rare H (None) /hpf
--- NOTE | 2021-11-18 13:04 | XR ---
EXAMINATION TYPE: XR chest 1V portable DATE OF EXAM: 11/18/2021 CLINICAL HISTORY: Difficulty breathing progress study. TECHNIQUE: Single AP portable upright view of the chest is obtained. COMPARISON: Chest x-ray from 3 days earlier and older studies FINDINGS: Low lung volumes with left greater than right bilateral lower lung opacities on current st udy. Interval worsening left lower lung from most recent prior. Cardiac silhouette size stable and wi thin normal limits. Osseous structures are intact. IMPRESSION: Worsening left lower lung acute infiltrate and/or atelectasis. Fairly stable less promine nt right medial basilar acute infiltrate and/or atelectasis. Low lung volumes redemonstrated.
--- NOTE | 2021-11-18 13:29 | P.PN ---
Progress Note - Text Progress Note Date: 11/18/21 History of presenting complaint This is a pleasant 51-year-old patient, chronic stable medical conditions include diabetes mellitus type 2, peripheral neuropathy, hyperlipidemia patient has chronic lower extremity leg wounds. CHF 50-55%, Autonomic dysfunction from diabetes. Causing orthostatics. oxygen at 5 L via nasal cannula at home. presents to ER with complaints of difficulty breathing and generalized weakness. Patient also having worsening bilateral lower extremity edema and weight gain. Symptoms have been getting worse for the past 3 days. Denied any complaints of cough or sputum production. No fever no chills. No headache or dizziness or lightheadedness. Chest x-ray showed mild cardiomegaly. Prominent hypoventilatory changes limiting reassessment. Patchy opacities and possible trace effusions. Correlate for mild to moderate CHF. Patient was started on IV Lasix 40 mg every 8 hourly in the ER. EKG showed sinus tachycardia. Laboratory showed WBC 9.3 hemoglobin 11.9 and platelets 259 sodium 130 potassium 3.7 chloride 97 bicarb is 23 BUN 84 and creatinine 3.05 and blood sugar is 239 lactic acid 1.5 total bilirubin was 1.5 alk phos 207 and proBNP 90967 and albumin level is 2.5. Most recent echocardiogram in September 2021 showed ejection fraction 55 to 60% and moderate TR and mild MR and moderate TR and mild pulmonary hypertension and small generalized pericardial effusion and large pleural effusion. Patient was previously admitted to the hospital due to COVID-19 infection requiring mechanical ventilation and also history of infective endocarditis. November 18: I assumed care of patient today. Patient had been on Lasix drip. Minimal urine output. Lasix drip was discontinued. Poor appetite. Vascular surgery consulted for dialysis catheter placement and dialysis to be started today. Fluid restriction. Patient feeling tired and rundown. Active Medications Hydrocodone Bitart/Acetaminophen (Hydrocodone/Apap 5-325mg 1 Each Tab) 1 each PO Q6HR PRN PRN Reason: Pain Last Admin: 11/17/21 22:57 Dose: 1 each Documented by: Albuterol/Ipratropium (Ipratropium-Albuterol 3 Ml Neb) 3 ml INHALATION RT- BID@0900,2100 [facility] Last Admin: 11/18/21 08:36 Dose: Not Given Documented by: Aspirin (Aspirin 81 Mg) 81 mg PO DAILY@0900 [facility] Last Admin: 11/18/21 09:19 Dose: Not Given Documented by: Atorvastatin Calcium (Atorvastatin 40 Mg Tab) 40 mg PO HS@2100 [facility] Last Admin: 11/17/21 20:26 Dose: 40 mg Documented by: Duloxetine HCl (Duloxetine Hcl 60 Mg Capsule.Dr) 60 mg PO DAILY@0900 [facility] Last Admin: 11/18/21 10:25 Dose: 60 mg Documented by: Gabapentin (Gabapentin 100 Mg Cap) 100 mg PO HS [facility] Last Admin: 11/17/21 20:26 Dose: 100 mg Documented by: Heparin Sodium (Porcine) (Heparin Sodium,Porcine/Pf 5,000 Unit/0.5 Ml Syringe) 5,000 unit SQ Q8HR [facility] Last Admin: 11/18/21 09:19 Dose: Not Given Documented by: Ferric Sodium Gluconate 125 mg (/ Sodium Chloride) 110 mls @ 100 mls/hr IVPB DAILY [facility] Stop: 11/21/21 10:01 Last Admin: 11/18/21 10:25 Dose: 100 mls/hr Documented by: Insulin Aspart (Insulin Aspart (Novolog) 100 Unit/Ml Vial) 0 unit SQ ACHS [facility]; Protocol Last Admin: 11/18/21 11:51 Dose: Not Given Documented by: Isosorbide Mononitrate (Isosorbide Mononitrate Er 30 Mg Tab.Er.24h) 30 mg PO DAILY@0900 [facility] Last Admin: 11/18/21 08:30 Dose: Not Given Documented by: Metoprolol Tartrate (Metoprolol Tartrate 50 Mg Tab) 50 mg PO BID@0900,2100 [facility] Last Admin: 11/18/21 08:31 Dose: Not Given Documented by: Midodrine (Midodrine 5 Mg Tab) 10 mg PO AC-TID [facility] Last Admin: 11/18/21 12:48 Dose: 10 mg Documented by: Miscellaneous Information (Potassium Replacement Protocol 1 Each Misc) 1 each MISCELLANE DAILY PRN; Protocol PRN Reason: Per Protocol Ondansetron HCl (Ondansetron 4 Mg/2 Ml Vial) 4 mg IVP Q6HR PRN PRN Reason: Nausea And Vomiting Pantoprazole Sodium (Pantoprazole 40 Mg Tablet) 40 mg PO DAILY@0730 [facility] Last Admin: 11/18/21 06:21 Dose: 40 mg Documented by: Ropinirole HCl (Ropinirole Hcl 0.25 Mg Tab) 0.25 mg PO HS@2100 [facility] Last Admin: 11/17/21 20:26 Dose: 0.25 mg Documented by: Past medical history to include: Diabetes, hyperlipidemia, peripheral neuropathy, MRSA infection including abscess and cellulitis,, anxiety, diabetic autonomic dysfunction. CHF EF 50-55% Social history: Currently at [facility]. Previously did [employer]. Smoking 2 packs a day for 32 years. , Stopped less than a year ago. Alcohol occasionally. Physical examination: VITAL SIGNS: Weight 1, 66, 20, 83/50, 90% on 5 L GENERAL: , laying in bed awake, tired EYES: Pupils equal. Conjunctiva normal. HEENT: External appearance of nose and ears normal, oral cavity grossly normal. NECK: JVD not raised; masses not palpable. HEART: First and second heart sounds are normal; edema present LUNGS: Respiratory rate normal; decreased breath sounds. ABDOMEN: Soft, some distended nontender, liver spleen not palpable, no masses palpable. PSYCH: [Alert and oriented x3; mood and affect anxious MUSCULOSKELETAL:No Clubbing/cyanosis;muscles-grossly intact NEUROLOGICAL: [Cranial nerves grossly intact; no facial asymmetry, decreased sensation distally. INVESTIGATIONS, reviewed in the clinical context: White count 20.7 hemoglobin 7.1 platelets 304 sodium 1:30 potassium 4.2 BUN 96 creatinine 3.2 on EKG: Sinus tachycardia Chest x-ray film personally reviewed by me-left basal atelectasis. Assessment and plan: --Acute on Chronic congestive heart failure from diastolic dysfunction EF 50- 55%: Not improving Patient failed a Lasix drip. With no urine output. -Autonomic gastroparesis causing vomiting. -Chronic autonomic dysfunction from diabetes- Fall precautions -Chronic stable angina with a prior history of positive nuclear stress test. Imdur ER 30 mg a day -Chronic lower extremity wounds. Continue wound care. -Essential hypertension Lopressor 50 mg twice a day -Secondary pulmonary hypertension due to CHF Follow clinically -Diabetes mellitus type 2 on ozempic. Uncontrolled with hypoglycemia Diabetic diet Follow Accu-Cheks. -Diabetic peripheral neuropathy Neurontin 100 mg daily at bedtime -Hyperlipidemia Lipitor 40 mg a day -COPD in a previous smoker DuoNeb twice a day -Chronic kidney disease stage 4 likely combination of diabetic nephropathy and hypertensive nephrosclerosis, progressed to end-stage kidney disease 4 hemodialysis catheter placement today and start hemodialysis -Primary osteoarthritis of the hip Tylenol as needed Lasix drip discontinued as minimal urine output. Yeimy consulted for placement of hemodialysis catheter and we'll start hemodialysis today. Discussed with patient. Other medications to continue. Fluid restriction. Prognosis guarded.
--- NOTE | 2021-11-18 14:57 | P.PN ---
Subjective Progress Note Date: 11/18/21 Principal diagnosis: Dyspnea, hypoxia This is a very pleasant 51-year-old male patient is a very well-known to me. I took care of this patient during a prolonged hospitalization back in August 2021 that extended through September 2021. The patient has multiple medical problems. The patient is post coronary 19 pneumonia that occurred last year requiring intubation mechanical ventilation. He is known to have previous history of infective endocarditis of the aortic valve, previous history of MRSA soft tissue infection involving the left flank Combigan by cellulitis/abscess, he is diabetic1, peripheral diabetic neuropathy and retinopathy, diastolic heart failure, hypertension, hyperlipidemia, chronic lower extremity ulceration of the skin at the radius stages, COPD, and chronic stage for kidney disease that has been followed up by Dr. Christine on outpatient basis. The patient came into the emergency having more shortness of breath and more swelling in his abdomen and his lower extremities bilaterally. He felt that he was getting more overloaded with fluids. He typically is on oxygen at 5 L at home and currently is on 6 L. His chest x-ray showing some increased pulmonary vascular markings/edema bilaterally. No cough. No sputum production. No chest tightness. No wheezing. No significant leukocytosis. White cell count is at 9.3 with a hemoglobin of 11.9, his creatinine is up to 3.05 and the patient has stage IV kidney disease with a GFR of 23. Sodium level is at 1:30. Glucose is up to 39, proBNP level is 39,009 100 and LFTs are essentially within normal limits. INR is at 1.4 with a PT of 14.3 and a PTT of 27. His last echocardiogram that was done on 09/23/2021 showed a ejection fraction of 55-60%, he had moderate aortic regurgitation, moderate tricuspid regurgitation, moderate to severe pulmonary hypertension with a PA pressure of 51, moderate degree of concentric left ventricular hypertrophy. Based on his medication from home, the patient was taking Demadex 20 mg by mouth twice a day. Currently he is on Lasix drip at 10 mg an hour. Giraldo catheter is in place and the patient is producing urine output for now. On 11/17/2021 patient is seen in follow-up on selective care unit, she is lethargic, but arousable, he is currently on 5 L of oxygen pulse ox is 93-99%, he remains on Lasix infusion at 10 mg per hour and he is in -300 mL negative nodes balance over the last 24 hours. Does not appear to be in any acute distress, he answers simple questions, he dozes back off. [place] any chest discomfort. Today's labs have been reviewed, his renal function is fairly stable, with BUN of 85 and creatinine of 3.06. Sodium is improved at 1:30, respiratory electrolytes were within normal limits, potassium is 3.6, white blood cell count of 17.5, hemoglobin is 7.5. Echocardiogram has been completed, awaiting official readout. Generally patient is quite weak. Has been on and off lethargic. He remains generally swollen with abdominal wall edema, upper and lower extremity edema. He continues on nebulized bronchodilators. On 11/18/2021 patient seen in follow-up on selective care unit. Patient is lethargic but arousable to voice, his blood pressure is 83/50, but he is afebrile. He is currently on 5 L of oxygen pulse ox is 90-92%. His Lasix drip has been discontinued, Norvas the surgery has been consulted for insertion of temporary hemodialysis catheter. Follow-up chest x-ray has been obtained showing worsening left lower lobe infiltrate and/or atelectasis, and stable and less prominent right medial basilar infiltrate, low lung volumes. Patient denies any cough, no phlegm production. White count today is elevated at 20.7, and blood cultures will be sent. Hemoglobin is 7.1, platelet count is 304, sodium is 1:30, potassium is 4.2, chloride is 11, CO2 is 20, and Is 90, B1 is 96, creatinine is 3.21. Lactic acid is 0.7. Urinalysis was also sent showing moderate amount of blood, but white blood cells at 4. Midodrine has been added. Patient's antihypertensives have been held including Lopressor and Imdur. Objective - Vital Signs Vital signs: Vital Signs Temp 98.1 F 11/18/21 11:42 Pulse 66 11/18/21 11:42 Resp 16 11/18/21 11:42 BP 83/50 11/18/21 11:42 Pulse Ox 90 L 11/18/21 11:42 Intake & Output 11/17/21 11/18/21 11/18/21 18:59 06:59 18:59 Intake Total 444.833 330.167 240 Output Total 325 85 Balance 119.833 245.167 240 Weight 92 kg 96.5 kg Intake: Intake, IV Titration 90.167 Amount Furosemide 100 mg In 90.167 Sodium Chloride 0.9% 90 ml @ 10 MG/HR 10 mls/hr IV .Q10H [facility] Rx#: [id number] Oral 354 240 240 Output: Urine 325 85 Other: Voiding Method Indwelling Catheter Indwelling Catheter Indwelling Catheter - Exam GENERAL EXAM: Lethargic very pleasant, 51-year-old chronically ill-looking lethargic but arousable white male, on 5 L of oxygen and a pulse ox of 92% comfortable in no apparent distress. HEAD: Normocephalic/atraumatic. EYES: Normal reaction of pupils, equal size. Conjunctiva pink, sclera white. NOSE: Clear with pink turbinates. THROAT: No erythema or exudates. NECK: No masses, no JVD, no thyroid enlargement, no adenopathy. CHEST: No chest wall deformity. Symmetrical expansion. LUNGS: Equal air entry with no crackles, wheeze, rhonchi or dullness. CVS: Regular rate and rhythm, normal S1 and S2, no gallops, no murmurs, no rubs ABDOMEN: Soft, nontender. No hepatosplenomegaly, normal bowel sounds, no guarding or rigidity. EXTREMITIES: No clubbing, no edema, no cyanosis, 2+ pulses and upper and lower extremities. MUSCULOSKELETAL: Muscle strength and tone normal. SPINE: No scoliosis or deformity SKIN: No rashes CENTRAL NERVOUS SYSTEM: Lethargic but arousable No focal deficits, tone is normal in all 4 extremities. - Labs CBC & Chem 7: 11/18/21 06:32 11/18/21 06:32 Labs: Abnormal Lab Results - Last 24 Hours (Table) 11/17/21 11/17/21 11/17/21 Range/Units 06:40 16:37 20:12 WBC (3.8-10.6) k/uL RBC (4.30-5.90) m/uL Hgb (13.0-17.5) gm/dL Hct (39.0-53.0) % MCHC (31.0-37.0) g/dL RDW (11.5-15.5) % Neutrophils # (1.3-7.7) k/uL Lymphocytes # (1.0-4.8) k/uL Sodium (137-145) mmol/L Carbon Dioxide (22-30) mmol/L BUN (9-20) mg/dL Creatinine (0.66-1.25) mg/dL POC Glucose (mg/dL) 128 H 176 H (75-99) mg/dL Calcium (8.4-10.2) mg/dL Iron 10 L (65-175) ug/dL TIBC 111 L (228-460) ug/dL % Saturation 8.65 L (15.00-50.00) Transferrin 79.1 L (204.0-354.0) mg/dL Ferritin 564.0 H (22.0-322.0) ng/mL Urine Protein (Negative) Urine Blood (Negative) Ur Leukocyte Esterase (Negative) Urine RBC (0-5) /hpf Amorphous Sediment (None) /hpf 11/18/21 11/18/21 11/18/21 Range/Units 06:09 06:32 06:32 WBC 20.7 H (3.8-10.6) k/uL RBC 2.47 L (4.30-5.90) m/uL Hgb 7.1 L (13.0-17.5) gm/dL Hct 23.2 L (39.0-53.0) % MCHC 30.4 L (31.0-37.0) g/dL RDW 16.2 H (11.5-15.5) % Neutrophils # 19.4 H (1.3-7.7) k/uL Lymphocytes # 0.3 L (1.0-4.8) k/uL Sodium 130 L (137-145) mmol/L Carbon Dioxide 20 L (22-30) mmol/L BUN 96 H (9-20) mg/dL Creatinine 3.21 H (0.66-1.25) mg/dL POC Glucose (mg/dL) 131 H (75-99) mg/dL Calcium 7.2 L (8.4-10.2) mg/dL Iron (65-175) ug/dL TIBC (228-460) ug/dL % Saturation (15.00-50.00) Transferrin (204.0-354.0) mg/dL Ferritin (22.0-322.0) ng/mL Urine Protein (Negative) Urine Blood (Negative) Ur Leukocyte Esterase (Negative) Urine RBC (0-5) /hpf Amorphous Sediment (None) /hpf 11/18/21 11/18/21 Range/Units 11:48 12:02 WBC (3.8-10.6) k/uL RBC (4.30-5.90) m/uL Hgb (13.0-17.5) gm/dL Hct (39.0-53.0) % MCHC (31.0-37.0) g/dL RDW (11.5-15.5) % Neutrophils # (1.3-7.7) k/uL Lymphocytes # (1.0-4.8) k/uL Sodium (137-145) mmol/L Carbon Dioxide (22-30) mmol/L BUN (9-20) mg/dL Creatinine (0.66-1.25) mg/dL POC Glucose (mg/dL) 108 H (75-99) mg/dL Calcium (8.4-10.2) mg/dL Iron (65-175) ug/dL TIBC (228-460) ug/dL % Saturation (15.00-50.00) Transferrin (204.0-354.0) mg/dL Ferritin (22.0-322.0) ng/mL Urine Protein 2+ H (Negative) Urine Blood Moderate H (Negative) Ur Leukocyte Esterase Small H (Negative) Urine RBC 13 H (0-5) /hpf Amorphous Sediment Rare H (None) /hpf Assessment and Plan Plan: Assessment: #1. Acute on chronic hypoxic respiratory failure secondary to acute fluid overload and interstitial edema. No evidence of superinfection at this point in time, currently on 5 L of oxygen and this is his home dose oxygen. His hypoxia has improved. Patient remains on diuretics. Patient continues to be generally swollen with increased abdominal wall swelling, scrotal edema, lower extremity edema he is stage IV chronic kidney disease. Lasix drip has been discontinued, patient is having hemodialysis catheter inserted today and hemodialysis will be initiated. #2. COVID-19 pneumonia with secondary respiratory failure hospitalized at [facility] in 2020 #3. Chronic stage IV kidney disease #4. 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 Diabetes mellitus type 1, poorly controlled #7. Diabetic peripheral neuropathy, diabetic retinopathy #8. Congestive heart failure with diastolic dysfunction, with moderate to severe aortic regurgitation, moderately severe tricuspid regurgitation secondary to pulmonary hypertension #9. Hypertension #10. Hyperlipidemia #11. Multiple bilateral lower extremity ulcerations with various healing stages and diabetic peripheral neuropathy #12. COPD #13. Medication noncompliance #14. Medical debility secondary to above-mentioned comorbidities Plan: Lasix has been discontinued and patient will be initiated on hemodialysis per nephrology Patient is still significantly fluid overloaded He states he feels a bit more short of breath He is lethargic, white blood cell count is increased Blood cultures were sent, urinalysis and chest x-ray ordered Midodrin has been added Yesterday's echocardiogram results are still pending, Overall prognosis is quite guarded We'll continue to follow his clinical course I have personally seen and examined the patient and reviewed the documentation. I performed a joint evaluation with the nurse practitioner in this evaluation was done more than 20 minutes. I fully agree with the documentation above and the plan of care.. The patient will be started on hemodialysis. The patient continues to have fluid overload without much success on diuresis with IV Lasix. The patient remains encephalopathic and probably uremic. Associated with hemodialysis. We'll continue to follow. He does have bilateral pleural effusions which hopefully would improve with hemodialysis. Time with Patient: Less than 30
[2021-11-18] MEDS ORDERED: LIDOCAINE 1% INJ 10MG/ML (20 ML MDV) ONE (15:56)
[2021-11-18] MEDS ORDERED: HEPARIN SODIUM 1,000 UN/ML (10ML VL) ONE (15:58)
[2021-11-18] MEDS ORDERED: LIDOCAINE 1% INJ 10MG/ML (20 ML MDV) SQ ONE (16:02)
[2021-11-18 16:33] LABS: Glucose,Whole Blood 111 mg/dL (75-99)
--- NOTE | 2021-11-18 16:57 | CONS ---
CONSULTATION This is a 51-year-old gentleman who has been admitted with acute on chronic renal failure. Kidney function is deteriorating. BUN is 96, creatinine is 2.81. I was consulted for placement of a dialysis catheter. Patient has been evaluated and scheduled for placement of dialysis catheter. PAST MEDICAL HISTORY: History of congestive heart failure, diabetes mellitus, hyperlipidemia, hypertension, chronic kidney disease. PAST SURGICAL HISTORY: Patient had a cholecystectomy done in the past. PHYSICAL EXAMINATION: The patient was seen in his room. Neck is supple. No bruit appreciated. Chest: The patient has a few crackles at the lung bases. First and second sounds present. Abdomen is protuberant. Marked edema of the lower extremity. Bowel sounds are present. Femorals are 1+. LABS: BUN is 96, creatinine is 2.81, hemoglobin is 11.9. PT is 14.3, INR is 1.14. Creatinine has increased to 3.5 and BUN has increased to 84. PLAN: Placement of a dialysis catheter. Risks and complications were discussed. This will be arranged. MMODL / IJN: [id number] /
--- NOTE | 2021-11-18 16:59 | PCN ---
PROCEDURE NOTE PREOPERATIVE DIAGNOSIS: Acute on chronic renal failure. POSTOPERATIVE DIAGNOSIS: Acute on chronic renal failure. PROCEDURE: Ultrasound-guided placement of 30 cm dialysis catheter via right femoral approach. DESCRIPTION: The patient was brought to the director labor standards. Right groin was prepped and draped in the usual sterile manner. Lidocaine 1% plain was infiltrated in the groin area. Ultrasound- guided micropuncture was introduced into the right femoral vein. Micropuncture guidewire was passed and a 4-Slovak dilator was advanced on the top of the guidewire. Then we passed a regular guidewire without any resistance. The dilator was advanced on the top of the guidewire. Then we placed a triple-lumen 30 cm dialysis catheter on the top of the guidewire. Guidewire was removed, flushed with heparin saline and hep- locked. It was secured with 3-0 nylon. Patient tolerated the procedure well. MMODL / IJN: [id number] /
[2021-11-18] MEDS: GABAPENTIN 100 MG CAP PO SCH (20:01)
[2021-11-18] MEDS: ATORVASTATIN 40 MG TAB PO SCH (20:01)
[2021-11-18 20:09] LABS: Glucose,Whole Blood 89 mg/dL (75-99)
[2021-11-19] MEDS: METOPROLOL TARTRATE 50 MG TAB PO SCH ×3 (00:33→21:58)
[2021-11-19] MEDS: HEPARIN SODIUM,PORCINE/PF 5,000 UNIT/0.5 ML SYRINGE SQ SCH ×3 (00:33→18:38)
[2021-11-19 06:19] LABS: Glucose,Whole Blood 136 mg/dL (75-99)
[2021-11-19 06:50] LABS: Hepatitis B Surface AB- Quant 3.5 mIU/mL; Hepatitis B Surface Antibody Nonreactive (Nonreactive); Hepatitis B Surface Antigen Nonreactive (Nonreactive)
[2021-11-19] MEDS: PANTOPRAZOLE 40 MG TABLET PO SCH (06:52)
[2021-11-19] MEDS: MIDODRINE 5 MG TAB PO SCH ×3 (06:52→18:38)
[2021-11-19] MEDS: INSULIN ASPART (NovoLOG) 100 UNIT/ML VIAL SQ SCH ×4 (06:54→21:58)
[2021-11-19 08:29] LABS: Anisocytosis Slight; Basophils % (A) 0 %; Eosinophils % (A) 0 %; HCT 26.4 % (39.0-53.0); HGB 7.8 gm/dL (13.0-17.5); Hypochromasia Marked; Lymphocytes # (A) 0.4 k/uL (1.0-4.8); Lymphocytes % (A) 2 %; MCH 27.9 pg (25.0-35.0); MCHC 29.7 g/dL (31.0-37.0); MCV 93.8 fL (80.0-100.0); Mean Platelet Volume 7.8; Monocytes # (A) 0.8 k/uL (0-1.0); Monocytes % (A) 3 %; Neutrophils # (A) 26.1 k/uL (1.3-7.7); Neutrophils % (A) 95 %; Platelet Count 378 k/uL (150-450); RBC 2.82 m/uL (4.30-5.90); RDW 16.2 % (11.5-15.5); WBC 27.6 k/uL (3.8-10.6)
[2021-11-19 08:32] LABS: Calcium 7.3 mg/dL (8.4-10.2); Potassium 4.1 mmol/L (3.5-5.1); Total Bilirubin 1.3 mg/dL (0.2-1.3); Total Protein 6.7 g/dL (6.3-8.2)
--- NOTE | 2021-11-19 08:44 | IR ---
EXAMINATION TYPE: IR cvc insert non tunneled DATE OF EXAM: 11/18/2021 COMPARISON: NONE HISTORY: Fluoroscopy time. Fluoroscopy was provided to the referring clinician.
[2021-11-19] MEDS: IPRATROPIUM-ALBUTEROL 3 ML NEB INHALATION SCH ×2 (09:16→21:47)
[2021-11-19] MEDS: SODIUM FERRIC GLUCONAT-SUCROSE 125 MG in SODIUM CHLORIDE 0.9% 100 ML IVPB SCH (09:48)
--- NOTE | 2021-11-19 09:55 | P.PN ---
Subjective Patient is seen in follow-up for chronic kidney disease. Started on hemodialysis 11/18/2021 due to volume overload and oliguria. Patient was oligu ene despite IV push Lasix and Lasix drip. Tolerating dialysis well. Currently on 5 L nasal cannula. Blood pressure stable. Vital signs are stable. General: Awake and alert. HEENT: Head exam is unremarkable. LUNGS: Breath sounds decreased. HEART: Rate and Rhythm are regular. ABDOMEN: Soft, no tenderness. EXTREMITITES: 1+ edema. Chronic changes noted. Objective - Vital Signs Vital signs: Vital Signs Temp 98 F 11/19/21 08:00 Pulse 80 11/19/21 08:00 Resp 17 11/19/21 08:00 BP 129/57 11/19/21 08:00 Pulse Ox 93 L 11/19/21 09:17 Intake & Output 11/18/21 11/19/21 11/19/21 18:59 06:59 18:59 Intake Total 340 236 Output Total 2014 Balance -4465 236 Intake: Intake, IV Titration 100 Amount Sodium Ferric Gluconat- 100 Sucrose 125 mg In Sodium Chloride 0.9% 100 ml @ 100 mls/hr IVPB DAILY [facility] Rx#:[id number] Oral 240 236 Output: Urine 15 Hemodialysis 1999 Other: Voiding Method Indwelling Catheter Indwelling Catheter Indwelling Catheter - Labs CBC & Chem 7: 11/19/21 06:00 11/19/21 06:00 Labs: Abnormal Lab Results - Last 24 Hours (Table) 11/18/21 11/18/21 11/18/21 Range/Units 11:48 12:02 16:31 WBC (3.8-10.6) k/uL RBC (4.30-5.90) m/uL Hgb (13.0-17.5) gm/dL Hct (39.0-53.0) % MCHC (31.0-37.0) g/dL RDW (11.5-15.5) % Sodium (137-145) mmol/L BUN (9-20) mg/dL Creatinine (0.66-1.25) mg/dL Glucose (74-99) mg/dL POC Glucose (mg/dL) 108 H 111 H (75-99) mg/dL Calcium (8.4-10.2) mg/dL Alkaline Phosphatase (38-126) U/L Albumin (3.5-5.0) g/dL Urine Protein 2+ H (Negative) Urine Blood Moderate H (Negative) Ur Leukocyte Esterase Small H (Negative) Urine RBC 13 H (0-5) /hpf Amorphous Sediment Rare H (None) /hpf 11/19/21 11/19/21 11/19/21 Range/Units 06:00 06:00 06:18 WBC 27.6 H (3.8-10.6) k/uL RBC 2.82 L (4.30-5.90) m/uL Hgb 7.8 L (13.0-17.5) gm/dL Hct 26.4 L (39.0-53.0) % MCHC 29.7 L (31.0-37.0) g/dL RDW 16.2 H (11.5-15.5) % Sodium 136 L (137-145) mmol/L BUN 79 H (9-20) mg/dL Creatinine 3.16 H (0.66-1.25) mg/dL Glucose 109 H (74-99) mg/dL POC Glucose (mg/dL) 136 H (75-99) mg/dL Calcium 7.3 L (8.4-10.2) mg/dL Alkaline Phosphatase 389 H (38-126) U/L Albumin 2.0 L (3.5-5.0) g/dL Urine Protein (Negative) Urine Blood (Negative) Ur Leukocyte Esterase (Negative) Urine RBC (0-5) /hpf Amorphous Sediment (None) /hpf Assessment and Plan Plan: Assessment: 1. Chronic kidney disease stage IV secondary to diabetic kidney disease and cardiorenal syndrome with baseline creatinine in the range of 2.8-3. 2. Volume overload. Improving with ultrafiltration. 3. Acute on chronic diastolic CHF and moderate tricuspid regurgitation. 4. Diabetes mellitus. 5. Hypervolemic hyponatremia. Improved postdialysis. 6. Hypertension with chronic kidney disease. Controlled this morning. 7. Anemia of chronic kidney disease. Iron deficiency noted. Denies any active bleeding. 8. Hypokalemia from diuresis. Improved. 9. Acute kidney injury secondary to ATN secondary to cardiorenal syndrome. Started on hemodialysis 11/18/2021 due to oliguria and volume overload. Has a permacath. Plan: Currently seen while undergoing hemodialysis. Third dialysis treatment tomorrow. 1500 mL fluid restriction. Low-salt diet. Strict I's and O's. Continue to monitor renal function and urine output. Maintain IV iron. Follow-up stool for occult blood. Follow-up echocardiogram. Add Aranesp.
[2021-11-19 11:19] LABS: Glucose,Whole Blood 107 mg/dL (75-99)
--- NOTE | 2021-11-19 12:54 | P.PN ---
Subjective This is a 51-year-old male with a past medical history significant for hypertension, congestive heart failure, diabetes, bilateral neuropathy, chronic kidney disease and former nicotine dependence. Patient follows in the office with Dr. Dickson. We have been asked to see the patient in consultation for CHF. Patient presents emergency department for worsening shortness of breath, generalized weakness, increased weight cane, bilateral lower extremity edema, abdominal swelling and scrotal edema and some dizziness. Patient states that his symptoms have worsened the past 3 days. His BNP was found to be elevated at 39,900. He was started on IV lasix drip per Nephrology. Patient continued to have worsening renal function, decreased urine output and no improvement in symptoms. 11/18/21- Hemodialysis catheter placed and initiation of dialysis was started 11/19/2021 Patient seen and examined at bedside, no acute distress. He continues to have abdominal and scrotal edema. However, his shortness of breath has improved and he states he is feeling better today. He underwent hemodialysis yesterday with 2L removed . He is currently maintained on aspirin 81 mg daily, atorvastatin 40 mg nightly, Imdur 30 mg daily, metoprolol tartrate 50 mg twice a day Labs, sodium 136, potassium 4.1, BUN 78, serum creatinine 3.16 PHYSICAL EXAM: VITAL SIGNS: Reviewed. GENERAL: In no acute distress. Lethargic HEENT:Neck supple. No JVD LUNGS: Respirations even and unlabored. Lungs essentially clear to auscultation bilaterally. HEART: Regular rate and rhythm. S1 and S2 heard. ABDOMEN: Soft. Nondistended. Nontender. Abdominal Edema noted. Scrotal edema also present. EXTREMITIES: Normal range of motion. No clubbing or cyanosis. Peripheral pulses intact. no lower extremity edema . Multiple scabs to lower extremities noted. NEUROLOGIC: Awake and alert. Oriented x 3. ASSESSMENT: Acute exacerbation of chronic heart failure with preserved EF, right sided heart failure Initiation of hemodialysis 11/18/2021 due to oliguria and volume overload. Permacath placed. Hypertension Hyperlipidemia Type 2 Diabetes mellitus Chronic kidney disease Dysautonomia Former nicotine dependence Aortic regurgitation PLAN: Hemodialysis initated on 11/18, plan for second treatment today Continue home cardiac medications aspirin, statin, metoprolol tartrate, imdur Patient not on ACEI/ARB due to renal function Monitor kidney function Accurate I&O, Daily weights Further recommendations pending patient course Nurse practitioner note has been reviewed by physician. Signing provider agrees with the documented findings, assessment, and plan of care. Objective - Vital Signs Vital signs: Vital Signs Temp 98.2 F 11/19/21 12:00 Pulse 82 11/19/21 12:00 Resp 16 11/19/21 12:00 BP 140/74 11/19/21 12:00 Pulse Ox 92 L 11/19/21 12:00 Intake & Output 11/18/21 11/19/21 11/19/21 18:59 06:59 18:59 Intake Total 340 236 Output Total 2014 Balance -1675 236 Intake: Intake, IV Titration 100 Amount Sodium Ferric Gluconat- 100 Sucrose 125 mg In Sodium Chloride 0.9% 100 ml @ 100 mls/hr IVPB DAILY [facility] Rx#:[id number] Oral 240 236 Output: Urine 15 Hemodialysis 2000 Other: Voiding Method Indwelling Catheter Indwelling Catheter Indwelling Catheter - Labs CBC & Chem 7: 11/19/21 06:00 11/19/21 06:00 Labs: Abnormal Lab Results - Last 24 Hours (Table) 11/18/21 11/19/21 11/19/21 Range/Units 16:31 06:00 06:00 WBC 27.6 H (3.8-10.6) k/uL RBC 2.82 L (4.30-5.90) m/uL Hgb 7.8 L (13.0-17.5) gm/dL Hct 26.4 L (39.0-53.0) % MCHC 29.7 L (31.0-37.0) g/dL RDW 16.2 H (11.5-15.5) % Neutrophils # 26.1 H (1.3-7.7) k/uL Lymphocytes # 0.4 L (1.0-4.8) k/uL Sodium 136 L (137-145) mmol/L BUN 79 H (9-20) mg/dL Creatinine 3.16 H (0.66-1.25) mg/dL Glucose 109 H (74-99) mg/dL POC Glucose (mg/dL) 111 H (75-99) mg/dL Calcium 7.3 L (8.4-10.2) mg/dL Alkaline Phosphatase 389 H (38-126) U/L Albumin 2.0 L (3.5-5.0) g/dL 11/19/21 11/19/21 Range/Units 06:18 11:17 WBC (3.8-10.6) k/uL RBC (4.30-5.90) m/uL Hgb (13.0-17.5) gm/dL Hct (39.0-53.0) % MCHC (31.0-37.0) g/dL RDW (11.5-15.5) % Neutrophils # (1.3-7.7) k/uL Lymphocytes # (1.0-4.8) k/uL Sodium (137-145) mmol/L BUN (9-20) mg/dL Creatinine (0.66-1.25) mg/dL Glucose (74-99) mg/dL POC Glucose (mg/dL) 136 H 107 H (75-99) mg/dL Calcium (8.4-10.2) mg/dL Alkaline Phosphatase (38-126) U/L Albumin (3.5-5.0) g/dL
[2021-11-19] MEDS: ISOSORBIDE MONONITRATE ER 30 MG TAB.ER.24H PO SCH (12:57)
[2021-11-19] MEDS: DULoxetine HCL 60 MG CAPSULE.DR PO SCH (12:57)
[2021-11-19] MEDS: ASPIRIN 81 MG PO SCH (12:57)
[2021-11-19] MEDS: HYDROcodone/APAP 5-325MG 1 EACH TAB PO PRN (13:42)
--- NOTE | 2021-11-19 14:41 | P.PN ---
Subjective Progress Note Date: 11/19/21 Principal diagnosis: Dyspnea, hypoxia This is a very pleasant 51-year-old male patient is a very well-known to me. I took care of this patient during a prolonged hospitalization back in August 2021 that extended through September 2021. The patient has multiple medical problems. The patient is post coronary 19 pneumonia that occurred last year requiring intubation mechanical ventilation. He is known to have previous history of infective endocarditis of the aortic valve, previous history of MRSA soft tissue infection involving the left flank Combigan by cellulitis/abscess, he is diabetic1, peripheral diabetic neuropathy and retinopathy, diastolic heart failure, hypertension, hyperlipidemia, chronic lower extremity ulceration of the skin at the radius stages, COPD, and chronic stage for kidney disease that has been followed up by Dr. Christine on outpatient basis. The patient came into the emergency having more shortness of breath and more swelling in his abdomen and his lower extremities bilaterally. He felt that he was getting more overloaded with fluids. He typically is on oxygen at 5 L at home and currently is on 6 L. His chest x-ray showing some increased pulmonary vascular markings/edema bilaterally. No cough. No sputum production. No chest tightness. No wheezing. No significant leukocytosis. White cell count is at 9.3 with a hemoglobin of 11.9, his creatinine is up to 3.05 and the patient has stage IV kidney disease with a GFR of 23. Sodium level is at 1:30. Glucose is up to 39, proBNP level is 39,009 100 and LFTs are essentially within normal limits. INR is at 1.4 with a PT of 14.3 and a PTT of 27. His last echocardiogram that was done on 09/23/2021 showed a ejection fraction of 55-60%, he had moderate aortic regurgitation, moderate tricuspid regurgitation, moderate to severe pulmonary hypertension with a PA pressure of 51, moderate degree of concentric left ventricular hypertrophy. Based on his medication from home, the patient was taking Demadex 20 mg by mouth twice a day. Currently he is on Lasix drip at 10 mg an hour. Giraldo catheter is in place and the patient is producing urine output for now. On 11/17/2021 patient is seen in follow-up on selective care unit, she is lethargic, but arousable, he is currently on 5 L of oxygen pulse ox is 93-99%, he remains on Lasix infusion at 10 mg per hour and he is in -300 mL negative nodes balance over the last 24 hours. Does not appear to be in any acute distress, he answers simple questions, he dozes back off. [place] any chest discomfort. Today's labs have been reviewed, his renal function is fairly stable, with BUN of 85 and creatinine of 3.06. Sodium is improved at 1:30, respiratory electrolytes were within normal limits, potassium is 3.6, white blood cell count of 17.5, hemoglobin is 7.5. Echocardiogram has been completed, awaiting official readout. Generally patient is quite weak. Has been on and off lethargic. He remains generally swollen with abdominal wall edema, upper and lower extremity edema. He continues on nebulized bronchodilators. On 11/18/2021 patient seen in follow-up on selective care unit. Patient is lethargic but arousable to voice, his blood pressure is 83/50, but he is afebrile. He is currently on 5 L of oxygen pulse ox is 90-92%. His Lasix drip has been discontinued, Norvasc the surgery has been consulted for insertion of temporary hemodialysis catheter. Follow-up chest x-ray has been obtained showing worsening left lower lobe infiltrate and/or atelectasis, and stable and less prominent right medial basilar infiltrate, low lung volumes. Patient denies any cough, no phlegm production. White count today is elevated at 20.7, and blood cultures will be sent. Hemoglobin is 7.1, platelet count is 304, sodium is 1:30, potassium is 4.2, chloride is 11, CO2 is 20, and Is 90, B1 is 96, creatinine is 3.21. Lactic acid is 0.7. Urinalysis was also sent showing moderate amount of blood, but white blood cells at 4. Midodrine has been added. Patient's antihypertensives have been held including Lopressor and Imdur. On 11/19/2021 patient is seen in follow-up on selective care unit. Patient is lethargic, patient was started on hemodialysis yesterday, he had another treatment today 2 L off. Following his hemodialysis patient is quite fatigued, lethargic, but he is arousable to voice. Today's labs have been reviewed, white blood cell count is 27.6, hemoglobin is 7.8, platelet count was 278, sodium is 136, dressed electrolyte are within normal limits, BUN of 79 creatinine is 3.16. Blood cultures have shown no growth. Still has quite significant generalized edema, which is slightly improved. Still has abdominal wall edema with abdominal skin striae, lower extremity edema and scrotal edema. Appetite has been poor. Is currently on 5 L of oxygen pulse ox is 92%. Blood pressures improved currently at 140/74, no fever or chills. Objective - Vital Signs Vital signs: Vital Signs Temp 98.2 F 11/19/21 12:00 Pulse 82 11/19/21 12:00 Resp 16 11/19/21 12:00 BP 140/74 11/19/21 12:00 Pulse Ox 92 L 11/19/21 12:00 Intake & Output 11/18/21 11/19/21 11/19/21 18:59 06:59 18:59 Intake Total 340 236 0 Output Total 2014 Balance -1675 236 0 Intake: Intake, IV Titration 100 Amount Sodium Ferric Gluconat- 100 Sucrose 125 mg In Sodium Chloride 0.9% 100 ml @ 100 mls/hr IVPB DAILY [facility] Rx#:[id number] Oral 240 236 0 Output: Urine 15 Hemodialysis 1999 Other: Voiding Method Indwelling Catheter Indwelling Catheter Indwelling Catheter - Exam GENERAL EXAM: Lethargic very pleasant, 51-year-old chronically ill-looking lethargic but arousable white male, on 5 L of oxygen and a pulse ox of 92% comfortable in no apparent distress. HEAD: Normocephalic/atraumatic. EYES: Normal reaction of pupils, equal size. Conjunctiva pink, sclera white. NOSE: Clear with pink turbinates. THROAT: No erythema or exudates. NECK: No masses, no JVD, no thyroid enlargement, no adenopathy. CHEST: No chest wall deformity. Symmetrical expansion. LUNGS: Equal air entry with no crackles, wheeze, rhonchi or dullness. CVS: Regular rate and rhythm, normal S1 and S2, no gallops, no murmurs, no rubs ABDOMEN: Soft, nontender. No hepatosplenomegaly, normal bowel sounds, no guarding or rigidity. EXTREMITIES: No clubbing, no edema, no cyanosis, 2+ pulses and upper and lower extremities. MUSCULOSKELETAL: Muscle strength and tone normal. SPINE: No scoliosis or deformity SKIN: No rashes CENTRAL NERVOUS SYSTEM: Lethargic but arousable No focal deficits, tone is normal in all 4 extremities. - Labs CBC & Chem 7: 11/19/21 06:00 11/19/21 06:00 Labs: Abnormal Lab Results - Last 24 Hours (Table) 11/18/21 11/19/21 11/19/21 Range/Units 16:31 06:00 06:00 WBC 27.6 H (3.8-10.6) k/uL RBC 2.82 L (4.30-5.90) m/uL Hgb 7.8 L (13.0-17.5) gm/dL Hct 26.4 L (39.0-53.0) % MCHC 29.7 L (31.0-37.0) g/dL RDW 16.2 H (11.5-15.5) % Neutrophils # 26.1 H (1.3-7.7) k/uL Lymphocytes # 0.4 L (1.0-4.8) k/uL Sodium 136 L (137-145) mmol/L BUN 79 H (9-20) mg/dL Creatinine 3.16 H (0.66-1.25) mg/dL Glucose 109 H (74-99) mg/dL POC Glucose (mg/dL) 111 H (75-99) mg/dL Calcium 7.3 L (8.4-10.2) mg/dL Alkaline Phosphatase 389 H (38-126) U/L Albumin 2.0 L (3.5-5.0) g/dL 11/19/21 11/19/21 Range/Units 06:18 11:17 WBC (3.8-10.6) k/uL RBC (4.30-5.90) m/uL Hgb (13.0-17.5) gm/dL Hct (39.0-53.0) % MCHC (31.0-37.0) g/dL RDW (11.5-15.5) % Neutrophils # (1.3-7.7) k/uL Lymphocytes # (1.0-4.8) k/uL Sodium (137-145) mmol/L BUN (9-20) mg/dL Creatinine (0.66-1.25) mg/dL Glucose (74-99) mg/dL POC Glucose (mg/dL) 136 H 107 H (75-99) mg/dL Calcium (8.4-10.2) mg/dL Alkaline Phosphatase (38-126) U/L Albumin (3.5-5.0) g/dL Microbiology - Last 24 Hours (Table) 11/18/21 12:12 Blood Culture - Preliminary Blood No Growth after 24 hours 11/18/21 12:12 Blood Culture - Preliminary Blood No Growth after 24 hours Assessment and Plan Plan: Assessment: #1. Acute on chronic hypoxic respiratory failure secondary to acute fluid overload and interstitial edema. No evidence of superinfection at this point in time, currently on 5 L of oxygen and this is his home dose oxygen. His hypoxia has improved. Patient remains on diuretics. Patient continues to be generally swollen with increased abdominal wall swelling, scrotal edema, lower extremity edema he is stage IV chronic kidney disease. Lasix drip has been discontinued, patient is having hemodialysis catheter inserted today and hemodialysis was initiated on 11/18/2021 #2. COVID-19 pneumonia with secondary respiratory failure hospitalized at [facility] in 2020 #3. Chronic stage IV kidney disease #4. 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 Diabetes mellitus type 1, poorly controlled #7. Diabetic peripheral neuropathy, diabetic retinopathy #8. Congestive heart failure with diastolic dysfunction, with moderate to severe aortic regurgitation, moderately severe tricuspid regurgitation secondary to pulmonary hypertension #9. Hypertension #10. Hyperlipidemia #11. Multiple bilateral lower extremity ulcerations with various healing stages and diabetic peripheral neuropathy #12. COPD #13. Medication noncompliance #14. Medical debility secondary to above-mentioned comorbidities Plan: Patient was initiated on hemodialysis He is quite fatigued, lethargic His been bedbound for the most part Appetite has been poor Blood cultures have been sent yesterday No growth so far, awaiting final cultures Chest x-ray showing worsening left lower lung infiltrate and atelectasis, low lung volumes Urinalysis showed no evidence of infection Patient tolerated hemodialysis Blood pressure is improved today But overall he seems to be quite debilitated His prognosis is quite guarded I have personally seen and examined the patient and reviewed the documentation. I performed a joint evaluation with the nurse practitioner in this evaluation was done more than 20 minutes. I fully agree with the documentation above and the plan of care. Time with Patient: Less than 30
--- NOTE | 2021-11-19 16:23 | P.PN ---
Progress Note - Text Progress Note Date: 11/19/21 History of presenting complaint This is a pleasant 51-year-old patient, chronic stable medical conditions include diabetes mellitus type 2, peripheral neuropathy, hyperlipidemia patient has chronic lower extremity leg wounds. CHF 50-55%, Autonomic dysfunction from diabetes. Causing orthostatics. oxygen at 5 L via nasal cannula at home. presents to ER with complaints of difficulty breathing and generalized weakness. Patient also having worsening bilateral lower extremity edema and weight gain. Symptoms have been getting worse for the past 3 days. Denied any complaints of cough or sputum production. No fever no chills. No headache or dizziness or lightheadedness. Chest x-ray showed mild cardiomegaly. Prominent hypoventilatory changes limiting reassessment. Patchy opacities and possible trace effusions. Correlate for mild to moderate CHF. Patient was started on IV Lasix 40 mg every 8 hourly in the ER. EKG showed sinus tachycardia. Laboratory showed WBC 9.3 hemoglobin 11.9 and platelets 259 sodium 130 potassium 3.7 chloride 97 bicarb is 23 BUN 84 and creatinine 3.05 and blood sugar is 239 lactic acid 1.5 total bilirubin was 1.5 alk phos 207 and proBNP 80418 and albumin level is 2.5. Most recent echocardiogram in September 2021 showed ejection fraction 55 to 60% and moderate TR and mild MR and moderate TR and mild pulmonary hypertension and small generalized pericardial effusion and large pleural effusion. Patient was previously admitted to the hospital due to COVID-19 infection requiring mechanical ventilation and also history of infective endocarditis. November 18: I assumed care of patient today. Patient had been on Lasix drip. Minimal urine output. Lasix drip was discontinued. Poor appetite. Vascular surgery consulted for dialysis catheter placement and dialysis to be started today. Fluid restriction. Patient feeling tired and rundown. November 19: Patient started hemodialysis yesterday. Another dialysis today. Not much of an appetite. Discussed with the at the bedside. Encourage oral intake. Tired. Active Medications Hydrocodone Bitart/Acetaminophen (Hydrocodone/Apap 5-325mg 1 Each Tab) 1 each PO Q6HR PRN PRN Reason: Pain Last Admin: 11/19/21 13:42 Dose: 1 each Documented by: Albuterol/Ipratropium (Ipratropium-Albuterol 3 Ml Neb) 3 ml INHALATION RT- BID@0900,2100 [facility] Last Admin: 11/19/21 09:16 Dose: Not Given Documented by: Aspirin (Aspirin 81 Mg) 81 mg PO DAILY@0900 [facility] Last Admin: 11/19/21 12:57 Dose: 81 mg Documented by: Atorvastatin Calcium (Atorvastatin 40 Mg Tab) 40 mg PO HS@2100 [facility] Last Admin: 11/18/21 20:01 Dose: 40 mg Documented by: Darbepoetin Andrez (Darbepoetin Andrez 40 Mcg/0.4 Ml Syringe) 40 mcg SQ Q7D [facility] Duloxetine HCl (Duloxetine Hcl 60 Mg Capsule.Dr) 60 mg PO DAILY@0900 [facility] Last Admin: 11/19/21 12:57 Dose: 60 mg Documented by: Gabapentin (Gabapentin 100 Mg Cap) 100 mg PO HS [facility] Last Admin: 11/18/21 20:01 Dose: 100 mg Documented by: Heparin Sodium (Porcine) (Heparin Sodium,Porcine/Pf 5,000 Unit/0.5 Ml Syringe) 5,000 unit SQ Q8HR [facility] Last Admin: 11/19/21 09:48 Dose: Not Given Documented by: Ferric Sodium Gluconate 125 mg (/ Sodium Chloride) 110 mls @ 100 mls/hr IVPB DAILY [facility] Stop: 11/21/21 10:01 Last Admin: 11/19/21 09:48 Dose: 100 mls/hr Documented by: Insulin Aspart (Insulin Aspart (Novolog) 100 Unit/Ml Vial) 0 unit SQ ACHS [facility]; Protocol Last Admin: 11/19/21 14:25 Dose: Not Given Documented by: Isosorbide Mononitrate (Isosorbide Mononitrate Er 30 Mg Tab.Er.24h) 30 mg PO DAILY@0900 [facility] Last Admin: 11/19/21 12:57 Dose: 30 mg Documented by: Metoprolol Tartrate (Metoprolol Tartrate 50 Mg Tab) 50 mg PO BID@0900,2100 [facility] Last Admin: 11/19/21 12:56 Dose: 50 mg Documented by: Midodrine (Midodrine 5 Mg Tab) 10 mg PO AC-TID [facility] Last Admin: 11/19/21 12:57 Dose: Not Given Documented by: Miscellaneous Information (Potassium Replacement Protocol 1 Each Misc) 1 each MISCELLANE DAILY PRN; Protocol PRN Reason: Per Protocol Ondansetron HCl (Ondansetron 4 Mg/2 Ml Vial) 4 mg IVP Q6HR PRN PRN Reason: Nausea And Vomiting Pantoprazole Sodium (Pantoprazole 40 Mg Tablet) 40 mg PO DAILY@0730 [facility] Last Admin: 11/19/21 06:52 Dose: 40 mg Documented by: Ropinirole HCl (Ropinirole Hcl 0.25 Mg Tab) 0.25 mg PO HS@2100 [facility] Last Admin: 11/18/21 20:01 Dose: 0.25 mg Documented by: Past medical history to include: Diabetes, hyperlipidemia, peripheral neuropathy, MRSA infection including abscess and cellulitis,, anxiety, diabetic autonomic dysfunction. CHF EF 50-55% Social history: Currently at [employer]. Previously did [employer]. Smoking 2 packs a day for 32 years. , Stopped less than a year ago. Alcohol occasionally. Physical examination: VITAL SIGNS: 98.1, 85, 18, 142/73, 92% on 5 L GENERAL: , laying in bed awake, tired EYES: Pupils equal. Conjunctiva normal. HEENT: External appearance of nose and ears normal, oral cavity grossly normal. NECK: JVD not raised; masses not palpable. HEART: First and second heart sounds are normal; edema present LUNGS: Respiratory rate normal; decreased breath sounds. ABDOMEN: Soft, some distended nontender, liver spleen not palpable, no masses palpable. PSYCH: [Alert and oriented x3; mood and affect anxious MUSCULOSKELETAL:No Clubbing/cyanosis;muscles-grossly intact NEUROLOGICAL: [Cranial nerves grossly intact; no facial asymmetry, decreased sensation distally. INVESTIGATIONS, reviewed in the clinical context: November 19: White count 27.6 hemoglobin 7.8 potassium 4.1. 79 creatinine 3.16 White count 20.7 hemoglobin 7.1 platelets 304 sodium 1:30 potassium 4.2 BUN 96 creatinine 3.2 on EKG: Sinus tachycardia Chest x-ray film personally reviewed by me-left basal atelectasis. Assessment and plan: --Acute on Chronic congestive heart failure from diastolic dysfunction EF 50- 55%: Not improving Patient failed a Lasix drip. With no urine output. -Autonomic gastroparesis causing vomiting. -Acute medical debility multifactorial -Chronic autonomic dysfunction from diabetes- Fall precautions -Chronic stable angina with a prior history of positive nuclear stress test. Imdur ER 30 mg a day -Chronic lower extremity wounds. Continue wound care. -Essential hypertension Lopressor 50 mg twice a day -Secondary pulmonary hypertension due to CHF Follow clinically -Diabetes mellitus type 2 on ozempic. Uncontrolled with hypoglycemia Diabetic diet Follow Accu-Cheks. -Diabetic peripheral neuropathy Neurontin 100 mg daily at bedtime -Hyperlipidemia Lipitor 40 mg a day -COPD in a previous smoker DuoNeb twice a day -Chronic kidney disease stage 4 likely combination of diabetic nephropathy and hypertensive nephrosclerosis, progressed to end-stage kidney disease: Sodium respond Hemodialysis started November 19 -Primary osteoarthritis of the hip Tylenol as needed -Anorexia, multifactorial Encourage oral intake. Hopefully to improve with hemodialysis Second round of hemodialysis today. Other medications to continue. Discussed with the at the bedside. Prognosis guarded.
[2021-11-19 16:33] LABS: Glucose,Whole Blood 124 mg/dL (75-99)
--- NOTE | 2021-11-19 17:07 | ECHOF ---
Referral Reason:CHF, repeat to evaluate aortic insufficiency MEASUREMENTS -------- HEIGHT: 170.2 cm WEIGHT: 91.6 kg BP: IVSd: 1.2 cm (0.6 - 1.1) LVIDd: 3.3 cm (3.9 - 5.3) LVPWd: 1.2 cm (0.6 - 1.1) IVSs: 1.6 cm LVIDs: 1.8 cm LVPWs: 1.5 cm LAESV Index (A-L): 15.93 ml/m Ao Diam: 3.1 cm (2.0 - 3.7) AV Cusp: 2.0 cm (1.5 - 2.6) LA Diam: 3.3 cm (2.7 - 3.8) MV EXCURSION: 16.659 mm (> 18.000) MV EF SLOPE: 70 mm/s (70 - 150) EPSS: 1.6 cm MV E Tawanda: 0.91 m/s MV DecT: 169 ms MV A Tawanda: 1.02 m/s MV E/A Ratio: 0.89 AR PHT: 545 ms RAP: 5.00 mmHg RVSP: 46.81 mmHg TAPSE: 23.04 mm FINDINGS -------- This was a technically good study. The left ventricular size is normal. There is mild concentric left ventricular hypertrophy. Overa ll left ventricular systolic function is normal with, an EF between 55 - 60 %. Normal LAP Grade 1 D iastolic Dysfunction. The right ventricle is normal in size. The right ventricular systolic function is normal. The left atrial size is normal. Normal LA size by volume 22+/-6 ml/m2. The right atrial size is normal. The aortic valve is trileaflet and appears structurally normal. There is mild aortic regurgitation. The mitral valve is normal. There is trace mitral regurgitation. The tricuspid valve appears structurally normal. Severe tricuspid regurgitation present. There is mild to moderate pulmonary hypertension. The right ventricular systolic pressure, as measured by Patience devlinpler, is 46.81mmHg. There is no pulmonic regurgitation present. The aortic root size is normal. IVC Not well visulized. There is a small, generalized pericardial effusion present. Large Pleural Effusion. CONCLUSIONS -------- 1. The left ventricular size is normal. 2. There is mild concentric left ventricular hypertrophy. 3. Overall left ventricular systolic function is normal with, an EF between 55 - 60 %. 4. Normal LAP Grade 1 Diastolic Dysfunction. 5. There is mild aortic regurgitation. 6. There is trace mitral regurgitation. 7. Severe tricuspid regurgitation present. 8. There is mild to moderate pulmonary hypertension. 9. The right ventricular systolic pressure, as measured by Doppler, is 46.81mmHg. 10. There is a small, generalized pericardial effusion present. 11. Large Pleural Effusion. PACKAGING TECHNICIAN: Johana Schneider RDCS
[2021-11-19 20:22] LABS: Glucose,Whole Blood 116 mg/dL (75-99)
[2021-11-19] MEDS: GABAPENTIN 100 MG CAP PO SCH (20:38)
[2021-11-19] MEDS: ATORVASTATIN 40 MG TAB PO SCH (20:38)
[2021-11-20] MEDS: HEPARIN SODIUM,PORCINE/PF 5,000 UNIT/0.5 ML SYRINGE SQ SCH ×3 (02:42→16:17)
[2021-11-20 05:59] LABS: Glucose,Whole Blood 96 mg/dL (75-99)
[2021-11-20] MEDS: INSULIN ASPART (NovoLOG) 100 UNIT/ML VIAL SQ SCH ×4 (06:12→20:42)
[2021-11-20] MEDS: MIDODRINE 5 MG TAB PO SCH ×3 (06:47→17:40)
[2021-11-20] MEDS: PANTOPRAZOLE 40 MG TABLET PO SCH (06:47)
[2021-11-20 08:41] LABS: Anisocytosis Slight; HCT 27.3 % (39.0-53.0); HGB 8.2 gm/dL (13.0-17.5); Hypochromasia Marked; MCH 27.7 pg (25.0-35.0); MCHC 30.1 g/dL (31.0-37.0); MCV 92.1 fL (80.0-100.0); Mean Platelet Volume 7.4; Platelet Count 398 k/uL (150-450); RBC 2.96 m/uL (4.30-5.90); RDW 16.9 % (11.5-15.5); WBC 24.5 k/uL (3.8-10.6)
[2021-11-20 09:00] LABS: Albumin 1.7 g/dL (3.5-5.0); Calcium 6.9 mg/dL (8.4-10.2); Potassium 3.6 mmol/L (3.5-5.1); Total Bilirubin 1.3 mg/dL (0.2-1.3); Total Protein 5.9 g/dL (6.3-8.2)
[2021-11-20] MEDS: IPRATROPIUM-ALBUTEROL 3 ML NEB INHALATION SCH ×2 (09:27→19:53)
[2021-11-20] MEDS: SODIUM FERRIC GLUCONAT-SUCROSE 125 MG in SODIUM CHLORIDE 0.9% 100 ML IVPB SCH (09:58)
[2021-11-20 11:43] LABS: Glucose,Whole Blood 119 mg/dL (75-99)
[2021-11-20] MEDS: DULoxetine HCL 60 MG CAPSULE.DR PO SCH (12:30)
[2021-11-20] MEDS: METOPROLOL TARTRATE 50 MG TAB PO SCH ×2 (12:30→20:41)
[2021-11-20] MEDS: ASPIRIN 81 MG PO SCH (12:30)
[2021-11-20] MEDS: ISOSORBIDE MONONITRATE ER 30 MG TAB.ER.24H PO SCH (12:30)
--- NOTE | 2021-11-20 13:38 | P.PN ---
Subjective Progress Note Date: 11/20/21 This is a very pleasant 51-year-old male patient is a very well-known to me. I took care of this patient during a prolonged hospitalization back in August 2021 that extended through September 2021. The patient has multiple medical problems. The patient is post coronary 19 pneumonia that occurred last year requiring intubation mechanical ventilation. He is known to have previous history of infective endocarditis of the aortic valve, previous history of MRSA soft tissue infection involving the left flank Combigan by cellulitis/abscess, he is diabetic1, peripheral diabetic neuropathy and retinopathy, diastolic heart failure, hypertension, hyperlipidemia, chronic lower extremity ulceration of the skin at the radius stages, COPD, and chronic stage for kidney disease that has been followed up by Dr. Christine on outpatient basis. The patient came into the emergency having more shortness of breath and more swelling in his abdomen and his lower extremities bilaterally. He felt that he was getting more overloaded with fluids. He typically is on oxygen at 5 L at home and currently is on 6 L. His chest x-ray showing some increased pulmonary vascular markings/edema bilaterally. No cough. No sputum production. No chest tightness. No wheezing. No significant leukocytosis. White cell count is at 9.3 with a hemoglobin of 11.9, his creatinine is up to 3.05 and the patient has stage IV kidney disease with a GFR of 23. Sodium level is at 1:30. Glucose is up to 39, proBNP level is 39,009 100 and LFTs are essentially within normal limits. INR is at 1.4 with a PT of 14.3 and a PTT of 27. His last echocardiogram that was done on 09/23/2021 showed a ejection fraction of 55-60%, he had moderate aortic regurgitation, moderate tricuspid regurgitation, moderate to severe pulmonary hypertension with a PA pressure of 51, moderate degree of concentric left ventricular hypertrophy. Based on his medication from home, the patient was taking Demadex 20 mg by mouth twice a day. Currently he is on Lasix drip at 10 mg an hour. Giraldo catheter is in place and the patient is producing urine o utput for now. On 11/17/2021 patient is seen in follow-up on selective care unit, she is lethargic, but arousable, he is currently on 5 L of oxygen pulse ox is 93-99%, he remains on Lasix infusion at 10 mg per hour and he is in -300 mL negative nodes balance over the last 24 hours. Does not appear to be in any acute distress, he answers simple questions, he dozes back off. [place] any chest discom fort. Today's labs have been reviewed, his renal function is fairly stable, with BUN of 85 and creatinine of 3.06. Sodium is improved at 1:30, respiratory electrolytes were within normal limits, potassium is 3.6, white blood cell count of 17.5, hemoglobin is 7.5. Echocardiogram has been completed, awaiting official readout. Generally patient is quite weak. Has been on and off lethargic. He remains generally swollen with abdominal wall edema, upper and lower extremity edema. He continues on nebulized bronchodilators. On 11/18/2021 patient seen in follow-up on selective care unit. Patient is lethargic but arousable to voice, his blood pressure is 83/50, but he is afebrile. He is currently on 5 L of oxygen pulse ox is 90-92%. His Lasix drip has been discontinued, Norvasc the surgery has been consulted for insertion of temporary hemodialysis catheter. Follow-up chest x-ray has been obtained showing worsening left lower lobe infiltrate and/or atelectasis, and stable and less prominent right medial basilar infiltrate, low lung volumes. Patient denies any cough, no phlegm production. White count today is elevated at 20.7, and blood cultures will be sent. Hemoglobin is 7.1, platelet count is 304, sodium is 1:30, potassium is 4.2, chloride is 11, CO2 is 20, and Is 90, B1 is 96, creatinine is 3.21. Lactic acid is 0.7. Urinalysis was also sent showing moderate amount of blood, but white blood cells at 4. Midodrine has been added. Patient's antihypertensives have been held including Lopressor and Imdur. On 11/19/2021 patient is seen in follow-up on selective care unit. Patient is lethargic, patient was started on hemodialysis yesterday, he had another treatment today 2 L off. Following his hemodialysis patient is quite fatigued, lethargic, but he is arousable to voice. Today's labs have been reviewed, white blood cell count is 27.6, hemoglobin is 7.8, platelet count was 278, sodium is 136, dressed electrolyte are within normal limits, BUN of 79 creatinine is 3.16. Blood cultures have shown no growth. Still has quite significant generalized edema, which is slightly improved. Still has abdominal wall edema with abdominal skin striae, lower extremity edema and scrotal edema. Appetite has been poor. Is currently on 5 L of oxygen pulse ox is 92%. Blood pressures improved currently at 140/74, no fever or chills. 11/20/2021, the patient is awake and alert. He is undergoing hemodialysis changes or the undergone 2 sessions of hemodialysis and the patient is going to undergo his first session with a goal of ultrafiltration of 2 L. There is third spacing and edema is improving. He had ascites, abdominal wall edema, lower extremity edema with seems to be better. Mentally, he is also less cloudy, much more alert and responsive on today's evaluation. No significant shortness of breath. He is resting comfortably in bed. The patient has a white cell count of 24 with hemoglobin 8.2, his potassium level is at 3.6. His creatinine is down to 2.5 and a BUN is a 57. LFTs are showing some mild elevation of alkaline phosphatase of 294 with a bilirubin of 1.3. ALT and AST are all essentially within normal limits. His albumin serums at 1.7. Objective - Vital Signs Vital signs: Vital Signs Temp 98.2 F 11/20/21 08:00 Pulse 77 11/20/21 08:00 Resp 18 11/20/21 08:00 BP 111/55 11/20/21 08:00 Pulse Ox 96 11/20/21 08:00 Intake & Output 11/19/21 11/20/21 11/20/21 18:59 06:59 18:59 Intake Total 0 240 120 Output Total 1999 Balance 0 240 -1880 Intake: Oral 0 240 120 Output: Hemodialysis 1999 Other: Voiding Method Indwelling Catheter Indwelling Catheter Indwelling Catheter # Bowel Movements 2 - Exam GENERAL EXAM: Lethargic very pleasant, 51-year-old chronically ill-looking lethargic but arousable white male, on 5 L of oxygen and a pulse ox of 92% comfortable in no apparent distress. HEAD: Normocephalic/atraumatic. EYES: Normal reaction of pupils, equal size. Conjunctiva pink, sclera white. NOSE: Clear with pink turbinates. THROAT: No erythema or exudates. NECK: No masses, no JVD, no thyroid enlargement, no adenopathy. CHEST: No chest wall deformity. Symmetrical expansion. LUNGS: Equal air entry with no crackles, wheeze, rhonchi or dullness. CVS: Regular rate and rhythm, normal S1 and S2, no gallops, no murmurs, no rubs ABDOMEN: Soft, nontender. No hepatosplenomegaly, normal bowel sounds, no guarding or rigidity. EXTREMITIES: No clubbing, there is edema, no cyanosis, 2+ pulses and upper and lower extremities. MUSCULOSKELETAL: Muscle strength and tone normal. SPINE: No scoliosis or deformity SKIN: No rashes CENTRAL NERVOUS SYSTEM: Lethargic but arousable No focal deficits, tone is normal in all 4 extremities. - Labs CBC & Chem 7: 11/20/21 08:22 11/20/21 08:22 Labs: Abnormal Lab Results - Last 24 Hours (Table) 11/19/21 11/19/21 11/20/21 Range/Units 16:31 20:21 08:22 WBC (3.8-10.6) k/uL RBC (4.30-5.90) m/uL Hgb (13.0-17.5) gm/dL Hct (39.0-53.0) % MCHC (31.0-37.0) g/dL RDW (11.5-15.5) % Sodium 135 L (137-145) mmol/L BUN 57 H (9-20) mg/dL Creatinine 2.57 H (0.66-1.25) mg/dL POC Glucose (mg/dL) 124 H 116 H (75-99) mg/dL Calcium 6.9 L (8.4-10.2) mg/dL Alkaline Phosphatase 294 H (38-126) U/L Total Protein 5.9 L (6.3-8.2) g/dL Albumin 1.7 L (3.5-5.0) g/dL 11/20/21 11/20/21 Range/Units 08:22 11:41 WBC 24.5 H (3.8-10.6) k/uL RBC 2.96 L (4.30-5.90) m/uL Hgb 8.2 L (13.0-17.5) gm/dL Hct 27.3 L (39.0-53.0) % MCHC 30.1 L (31.0-37.0) g/dL RDW 16.9 H (11.5-15.5) % Sodium (137-145) mmol/L BUN (9-20) mg/dL Creatinine (0.66-1.25) mg/dL POC Glucose (mg/dL) 119 H (75-99) mg/dL Calcium (8.4-10.2) mg/dL Alkaline Phosphatase (38-126) U/L Total Protein (6.3-8.2) g/dL Albumin (3.5-5.0) g/dL Microbiology - Last 24 Hours (Table) 11/18/21 12:12 Blood Culture - Preliminary Blood No Growth after 24 hours 11/18/21 12:12 Blood Culture - Preliminary Blood No Growth after 24 hours Assessment and Plan Plan: Assessment: #1. Acute on chronic hypoxic respiratory failure secondary to acute fluid overload and interstitial edema. No evidence of superinfection at this point in time, currently on 5 L of oxygen and this is his home dose oxygen. His hypoxia has improved. Patient remains on diuretics. Patient continues to be generally swollen with increased abdominal wall swelling, scrotal edema, lower extremity edema he is stage IV chronic kidney disease. Lasix drip has been discontinued, patient is having hemodialysis catheter inserted and the patient has completed 2 sessions of hemodialysis and interstitial be done today with a goal of ultrafiltration of 2 L. The third spacing and edema is improving. The patient is also getting less short of breath. He is still on 5 L of O2 by nasal cannula #2. COVID-19 pneumonia with secondary respiratory failure hospitalized at [facility] in 2020 #3. Chronic stage IV kidney disease, currently on hemodialysis #4. 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 Diabetes mellitus type 1, poorly controlled #7. Diabetic peripheral neuropathy, diabetic retinopathy #8. Congestive heart failure with diastolic dysfunction, with moderate to severe aortic regurgitation, moderately severe tricuspid regurgitation secondary to pulmonary hypertension #9. Hypertension #10. Hyperlipidemia #11. Multiple bilateral lower extremity ulcerations with various healing stages and diabetic peripheral neuropathy #12. COPD #13. Medication noncompliance #14. Medical debility secondary to above-mentioned comorbidities Plan: Continue hemodialysis per nephrology He is quite fatigued, lethargic, clinically much more alert and awake with hemodialysis His been bedbound for the most part Appetite has been poor Blood cultures have been sent, and the blood cultures of been negative No growth so far, awaiting final cultures Chest x-ray showing worsening left lower lung infiltrate and atelectasis, low lung volumes Urinalysis showed no evidence of infection Patient tolerated hemodialysis Blood pressure is improved today But overall he seems to be quite debilitated His prognosis is quite guarded
[2021-11-20 16:17] LABS: Anisocytosis Slight; HCT 23.6 % (39.0-53.0); HGB 7.1 gm/dL (13.0-17.5); Hypochromasia Marked; MCH 27.7 pg (25.0-35.0); MCHC 30.1 g/dL (31.0-37.0); MCV 91.9 fL (80.0-100.0); Mean Platelet Volume 7.5; Platelet Count 358 k/uL (150-450); RBC 2.57 m/uL (4.30-5.90); RDW 16.3 % (11.5-15.5); WBC 28.7 k/uL (3.8-10.6)
--- NOTE | 2021-11-20 16:18 | P.PN ---
Progress Note - Text Progress Note Date: 11/20/21 History of presenting complaint This is a pleasant 51-year-old patient, chronic stable medical conditions include diabetes mellitus type 2, peripheral neuropathy, hyperlipidemia patient has chronic lower extremity leg wounds. CHF 50-55%, Autonomic dysfunction from diabetes. Causing orthostatics. oxygen at 5 L via nasal cannula at home. presents to ER with complaints of difficulty breathing and generalized weakness. Patient also having worsening bilateral lower extremity edema and weight gain. Symptoms have been getting worse for the past 3 days. Denied any complaints of cough or sputum production. No fever no chills. No headache or dizziness or lightheadedness. Chest x-ray showed mild cardiomegaly. Prominent hypoventilatory changes limiting reassessment. Patchy opacities and possible trace effusions. Correlate for mild to moderate CHF. Patient was started on IV Lasix 40 mg every 8 hourly in the ER. EKG showed sinus tachycardia. Laboratory showed WBC 9.3 hemoglobin 11.9 and platelets 259 sodium 130 potassium 3.7 chloride 97 bicarb is 23 BUN 84 and creatinine 3.05 and blood sugar is 239 lactic acid 1.5 total bilirubin was 1.5 alk phos 207 and proBNP 19302 and albumin level is 2.5. Most recent echocardiogram in September 2021 showed ejection fraction 55 to 60% and moderate TR and mild MR and moderate TR and mild pulmonary hypertension and small generalized pericardial effusion and large pleural effusion. Patient was previously admitted to the hospital due to COVID-19 infection requiring mechanical ventilation and also history of infective endocarditis. November 18: I assumed care of patient today. Patient had been on Lasix drip. Minimal urine output. Lasix drip was discontinued. Poor appetite. Vascular surgery consulted for dialysis catheter placement and dialysis to be started today. Fluid restriction. Patient feeling tired and rundown. November 19: Patient started hemodialysis yesterday. Another dialysis today. Not much of an appetite. Discussed with the at the bedside. Encourage oral intake. Tired. November 20: Patient had urinalysis done today. Ate a little bit. No edema. Tired. As the patient to sit up in a chair with assistance. Active Medications Hydrocodone Bitart/Acetaminophen (Hydrocodone/Apap 5-325mg 1 Each Tab) 1 each PO Q6HR PRN PRN Reason: Pain Last Admin: 11/19/21 13:42 Dose: 1 each Documented by: Albuterol/Ipratropium (Ipratropium-Albuterol 3 Ml Neb) 3 ml INHALATION RT-BID@ [facility] Last Admin: 11/20/21 09:27 Dose: Not Given Documented by: Aspirin (Aspirin 81 Mg) 81 mg PO DAILY@09 [facility] Last Admin: 11/20/21 12:30 Dose: 81 mg Documented by: Atorvastatin Calcium (Atorvastatin 40 Mg Tab) 40 mg PO HS@2099 [facility] Last Admin: 11/19/21 20:38 Dose: 40 mg Documented by: Darbepoetin Andrez (Darbepoetin Andrez 40 Mcg/0.4 Ml Syringe) 40 mcg SQ Q7D [facility] Duloxetine HCl (Duloxetine Hcl 60 Mg Capsule.Dr) 60 mg PO DAILY@899 [facility] Last Admin: 11/20/21 12:30 Dose: 60 mg Documented by: Gabapentin (Gabapentin 100 Mg Cap) 100 mg PO HS [facility] Last Admin: 11/19/21 20:38 Dose: 100 mg Documented by: Heparin Sodium (Porcine) (Heparin Sodium,Porcine/Pf 5,000 Unit/0.5 Ml Syringe) 5,000 unit SQ Q8HR [facility] Last Admin: 11/20/21 09:58 Dose: Not Given Documented by: Ferric Sodium Gluconate 125 mg (/ Sodium Chloride) 110 mls @ 100 mls/hr IVPB DAILY [facility] Stop: 11/21/21 10:01 Last Admin: 11/20/21 09:58 Dose: 100 mls/hr Documented by: Insulin Aspart (Insulin Aspart (Novolog) 100 Unit/Ml Vial) 0 unit SQ ACHS [facility]; Protocol Last Admin: 11/20/21 11:57 Dose: Not Given Documented by: Isosorbide Mononitrate (Isosorbide Mononitrate Er 30 Mg Tab.Er.24h) 30 mg PO DAILY@899 [facility] Last Admin: 11/20/21 12:30 Dose: 30 mg Documented by: Metoprolol Tartrate (Metoprolol Tartrate 50 Mg Tab) 50 mg PO BID@899,2099 [facility] Last Admin: 11/20/21 12:30 Dose: 50 mg Documented by: Midodrine (Midodrine 5 Mg Tab) 10 mg PO AC-TID [facility] Last Admin: 11/20/21 12:30 Dose: 10 mg Documented by: Miscellaneous Information (Potassium Replacement Protocol 1 Each Misc) 1 each MISCELLANE DAILY PRN; Protocol PRN Reason: Per Protocol Ondansetron HCl (Ondansetron 4 Mg/2 Ml Vial) 4 mg IVP Q6HR PRN PRN Reason: Nausea And Vomiting Pantoprazole Sodium (Pantoprazole 40 Mg Tablet) 40 mg PO DAILY@0730 [facility] Last Admin: 11/20/21 06:47 Dose: 40 mg Documented by: Ropinirole HCl (Ropinirole Hcl 0.25 Mg Tab) 0.25 mg PO HS@2100 [facility] Last Admin: 11/19/21 20:38 Dose: 0.25 mg Documented by: Past medical history to include: Diabetes, hyperlipidemia, peripheral neuropathy, MRSA infection including abscess and cellulitis,, anxiety, diabetic autonomic dysfunction. CHF EF 50-55% Social history: Currently at [employer]. Previously did [employer]. Smoking 2 packs a day for 32 years. , Stopped less than a year ago. Alcohol occasionally. Physical examination: VITAL SIGNS: 98, 74, 16, 102/58, 97% on 5 L GENERAL: , laying in bed awake, tired EYES: Pupils equal. Conjunctiva normal. HEENT: External appearance of nose and ears normal, oral cavity grossly normal. NECK: JVD not raised; masses not palpable. HEART: First and second heart sounds are normal; edema present LUNGS: Respiratory rate normal; decreased breath sounds. ABDOMEN: Soft, some distended nontender, liver spleen not palpable, no masses palpable. PSYCH: [Alert and oriented x3; mood and affect anxious MUSCULOSKELETAL:No Clubbing/cyanosis;muscles-grossly intact NEUROLOGICAL: [Cranial nerves grossly intact; no facial asymmetry, decreased sensation distally. INVESTIGATIONS, reviewed in the clinical context: November 20: White count 28.7 hemoglobin 7.1 November 19: White count 27.6 hemoglobin 7.8 potassium 4.1. 79 creatinine 3.16 White count 20.7 hemoglobin 7.1 platelets 304 sodium 1:30 potassium 4.2 BUN 96 creatinine 3.2 on EKG: Sinus tachycardia Chest x-ray film personally reviewed by me-left basal atelectasis. Assessment and plan: --Acute on Chronic congestive heart failure from diastolic dysfunction EF 50- 55%: Not improving Patient failed a Lasix drip. With no urine output. On hemodialysis -Autonomic gastroparesis causing vomiting. -Acute medical debility multifactorial -Chronic autonomic dysfunction from diabetes- Fall precautions -Chronic stable angina with a prior history of positive nuclear stress test. Imdur ER 30 mg a day -Chronic lower extremity wounds. Continue wound care. -Essential hypertension Lopressor 50 mg twice a day -Secondary pulmonary hypertension due to CHF Follow clinically -Diabetes mellitus type 2 on ozempic. Uncontrolled with hypoglycemia Diabetic diet Follow Accu-Cheks. -Diabetic peripheral neuropathy Neurontin 100 mg daily at bedtime -Hyperlipidemia Lipitor 40 mg a day -COPD in a previous smoker DuoNeb twice a day -Chronic kidney disease stage 4 likely combination of diabetic nephropathy and hypertensive nephrosclerosis, progressed to end-stage kidney disease: Sodium respond Hemodialysis started November 19 -Primary osteoarthritis of the hip Tylenol as needed -Anorexia, multifactorial Encourage oral intake. Hopefully to improve with hemodialysis Hemodialysis today. Encouraged to sit up in a chair. Encourage oral intake. Other medications to continue. Prognosis guarded.
[2021-11-20 16:23] LABS: Albumin 1.6 g/dL (3.5-5.0); Calcium 6.7 mg/dL (8.4-10.2); Potassium 3.4 mmol/L (3.5-5.1); Total Bilirubin 1.1 mg/dL (0.2-1.3); Total Protein 5.3 g/dL (6.3-8.2)
[2021-11-20 16:26] LABS: INR 1.6 (<1.2); Partial Thromboplastin Time 44.2 sec (22.0-30.0)
[2021-11-20 16:37] LABS: Glucose,Whole Blood 108 mg/dL (75-99)
--- NOTE | 2021-11-20 16:51 | P.PN ---
Subjective Patient is seen for follow-up currently maintained on dialysis. Tolerating his treatment well. No significant complaints today. Objective - Vital Signs Vital signs: Vital Signs Temp 98 F 11/20/21 12:00 Pulse 74 11/20/21 12:00 Resp 16 11/20/21 12:00 BP 102/58 11/20/21 12:00 Pulse Ox 97 11/20/21 12:00 Intake & Output 11/19/21 11/20/21 11/20/21 18:59 06:59 18:59 Intake Total 0 240 120 Output Total 1999 Balance 0 240 -1880 Intake: Oral 0 240 120 Output: Hemodialysis 1999 Other: Voiding Method Indwelling Catheter Indwelling Catheter Indwelling Catheter # Bowel Movements 2 - Exam awake, comfortable Examination of the heart S1 and S2 Examination lungs decreased breath sounds at the bases Abdomen is soft nontender Examination of lower extremities shows 1+ edema and chronic skin changes. D[employer]PER[employer]ENT exam grossly intact - Labs CBC & Chem 7: 11/20/21 15:52 11/20/21 15:52 Labs: Abnormal Lab Results - Last 24 Hours (Table) 11/19/21 11/20/21 11/20/21 Range/Units 20:21 08:22 08:22 WBC 24.5 H (3.8-10.6) k/uL RBC 2.96 L (4.30-5.90) m/uL Hgb 8.2 L (13.0-17.5) gm/dL Hct 27.3 L (39.0-53.0) % MCHC 30.1 L (31.0-37.0) g/dL RDW 16.9 H (11.5-15.5) % PT (9.0-12.0) sec INR (<1.2) APTT (22.0-30.0) sec Sodium 135 L (137-145) mmol/L Potassium (3.5-5.1) mmol/L BUN 57 H (9-20) mg/dL Creatinine 2.57 H (0.66-1.25) mg/dL Glucose (74-99) mg/dL POC Glucose (mg/dL) 116 H (75-99) mg/dL Calcium 6.9 L (8.4-10.2) mg/dL Alkaline Phosphatase 294 H (38-126) U/L Total Protein 5.9 L (6.3-8.2) g/dL Albumin 1.7 L (3.5-5.0) g/dL 11/20/21 11/20/21 11/20/21 Range/Units 11:41 15:52 15:52 WBC 28.7 H (3.8-10.6) k/uL RBC 2.57 L (4.30-5.90) m/uL Hgb 7.1 L (13.0-17.5) gm/dL Hct 23.6 L (39.0-53.0) % MCHC 30.1 L (31.0-37.0) g/dL RDW 16.3 H (11.5-15.5) % PT 16.0 H (9.0-12.0) sec INR 1.6 H (<1.2) APTT 44.2 H (22.0-30.0) sec Sodium (137-145) mmol/L Potassium (3.5-5.1) mmol/L BUN (9-20) mg/dL Creatinine (0.66-1.25) mg/dL Glucose (74-99) mg/dL POC Glucose (mg/dL) 119 H (75-99) mg/dL Calcium (8.4-10.2) mg/dL Alkaline Phosphatase (38-126) U/L Total Protein (6.3-8.2) g/dL Albumin (3.5-5.0) g/dL 11/20/21 11/20/21 Range/Units 15:52 16:35 WBC (3.8-10.6) k/uL RBC (4.30-5.90) m/uL Hgb (13.0-17.5) gm/dL Hct (39.0-53.0) % MCHC (31.0-37.0) g/dL RDW (11.5-15.5) % PT (9.0-12.0) sec INR (<1.2) APTT (22.0-30.0) sec Sodium 134 L (137-145) mmol/L Potassium 3.4 L (3.5-5.1) mmol/L BUN 38 H (9-20) mg/dL Creatinine 1.82 H (0.66-1.25) mg/dL Glucose 123 H (74-99) mg/dL POC Glucose (mg/dL) 108 H (75-99) mg/dL Calcium 6.7 L (8.4-10.2) mg/dL Alkaline Phosphatase 303 H (38-126) U/L Total Protein 5.3 L (6.3-8.2) g/dL Albumin 1.6 L (3.5-5.0) g/dL Microbiology - Last 24 Hours (Table) 11/18/21 12:12 Blood Culture - Preliminary Blood No Growth after 48 hours 11/18/21 12:12 Blood Culture - Preliminary Blood No Growth after 48 hours Assessment and Plan Assessment: 1. Chronic kidney disease stage IV secondary to diabetic kidney disease and cardiorenal syndrome currently started on dialysis secondary to severe volume overload. 2. Acute on chronic diastolic CHF with moderate tricuspid regurgitation 4. Type 2 diabetes 5. Hypervolemic hyponatremia 6. Acute kidney injury, ATN secondary to cardiorenal syndrome started on dialysis on 11/18/2021. Patient has a permacath Plan: Dialysis on 11/22/2021 Continue with fluid restriction Continue with [facility]
--- NOTE | 2021-11-20 18:59 | P.PN ---
Subjective This is a 51-year-old male with a past medical history significant for hypertension, congestive heart failure, diabetes, bilateral neuropathy, chronic kidney disease and former nicotine dependence. Patient follows in the office with Dr. Dickson. We have been asked to see the patient in consultation for CHF. Patient presents emergency department for worsening shortness of breath, generalized weakness, increased weight cane, bilateral lower extremity edema, abdominal swelling and scrotal edema and some dizziness. Patient states that his symptoms have worsened the past 3 days. His BNP was found to be elevated at 39,900. He was started on IV lasix drip per Nephrology. Patient continued to have worsening renal function, decreased urine output and no improvement in symptoms. 11/18/21- Hemodialysis catheter placed and initiation of dialysis was started 11/19/2021 Patient seen and examined at bedside, no acute distress. He continues to have abdominal and scrotal edema. However, his shortness of breath has improved and he states he is feeling better today. He underwent hemodialysis yesterday with 2L removed . He is currently maintained on aspirin 81 mg daily, atorvastatin 40 mg nightly, Imdur 30 mg daily, metoprolol tartrate 50 mg twice a day Labs, sodium 136, potassium 4.1, BUN 78, serum creatinine 3.16 11/20 Patient seen and examined. Patient pulled his dialysis catheter out and had some bleeding around the site however no hematoma noted. Denies any chest pain or pressure. PHYSICAL EXAM: VITAL SIGNS: Reviewed. GENERAL: In no acute distress. Lethargic HEENT:Neck supple. No JVD LUNGS: Respirations even and unlabored. Lungs essentially clear to auscultation bilaterally. HEART: Regular rate and rhythm. S1 and S2 heard. ABDOMEN: Soft. Nondistended. Nontender. Abdominal Edema noted. Scrotal edema also present. EXTREMITIES: Normal range of motion. No clubbing or cyanosis. Peripheral pulses intact. no lower extremity edema . Multiple scabs to lower extremities noted. NEUROLOGIC: Awake and alert. Oriented x 3. ASSESSMENT: Acute exacerbation of chronic heart failure with preserved EF, right sided heart failure Initiation of hemodialysis 11/18/2021 due to oliguria and volume overload. Permacath placed. Hypertension Hyperlipidemia Type 2 Diabetes mellitus Chronic kidney disease Dysautonomia Former nicotine dependence Aortic regurgitation PLAN: Hemodialysis initated on 11/18, plan for second treatment today Continue home cardiac medications aspirin, statin, metoprolol tartrate, imdur Patient not on ACEI/ARB due to renal function Monitor kidney function Accurate I&O, Daily weights Continue volume management with hemodialysis. No further recommendations from a cardiac standpoint. Please call with any questions. Objective - Vital Signs Vital signs: Vital Signs Temp 97.6 F 11/20/21 16:10 Pulse 71 11/20/21 16:10 Resp 15 11/20/21 16:10 BP 109/63 11/20/21 16:10 Pulse Ox 96 11/20/21 16:10 Intake & Output 11/19/21 11/20/21 11/20/21 18:59 06:59 18:59 Intake Total 0 240 360 Output Total 2200 Balance 0 240 -1840 Intake: Oral 0 240 360 Output: Urine 200 Hemodialysis 2000 Other: Voiding Method Indwelling Catheter Indwelling Catheter Indwelling Catheter # Bowel Movements 2 - Labs CBC & Chem 7: 11/20/21 15:52 11/20/21 15:52 Labs: Abnormal Lab Results - Last 24 Hours (Table) 11/19/21 11/20/21 11/20/21 Range/Units 20:21 08:22 08:22 WBC 24.5 H (3.8-10.6) k/uL RBC 2.96 L (4.30-5.90) m/uL Hgb 8.2 L (13.0-17.5) gm/dL Hct 27.3 L (39.0-53.0) % MCHC 30.1 L (31.0-37.0) g/dL RDW 16.9 H (11.5-15.5) % PT (9.0-12.0) sec INR (<1.2) APTT (22.0-30.0) sec Sodium 135 L (137-145) mmol/L Potassium (3.5-5.1) mmol/L BUN 57 H (9-20) mg/dL Creatinine 2.57 H (0.66-1.25) mg/dL Glucose (74-99) mg/dL POC Glucose (mg/dL) 116 H (75-99) mg/dL Calcium 6.9 L (8.4-10.2) mg/dL Alkaline Phosphatase 294 H (38-126) U/L Total Protein 5.9 L (6.3-8.2) g/dL Albumin 1.7 L (3.5-5.0) g/dL 11/20/21 11/20/21 11/20/21 Range/Units 11:41 15:52 15:52 WBC 28.7 H (3.8-10.6) k/uL RBC 2.57 L (4.30-5.90) m/uL Hgb 7.1 L (13.0-17.5) gm/dL Hct 23.6 L (39.0-53.0) % MCHC 30.1 L (31.0-37.0) g/dL RDW 16.3 H (11.5-15.5) % PT 16.0 H (9.0-12.0) sec INR 1.6 H (<1.2) APTT 44.2 H (22.0-30.0) sec Sodium (137-145) mmol/L Potassium (3.5-5.1) mmol/L BUN (9-20) mg/dL Creatinine (0.66-1.25) mg/dL Glucose (74-99) mg/dL POC Glucose (mg/dL) 119 H (75-99) mg/dL Calcium (8.4-10.2) mg/dL Alkaline Phosphatase (38-126) U/L Total Protein (6.3-8.2) g/dL Albumin (3.5-5.0) g/dL 11/20/21 11/20/21 Range/Units 15:52 16:35 WBC (3.8-10.6) k/uL RBC (4.30-5.90) m/uL Hgb (13.0-17.5) gm/dL Hct (39.0-53.0) % MCHC (31.0-37.0) g/dL RDW (11.5-15.5) % PT (9.0-12.0) sec INR (<1.2) APTT (22.0-30.0) sec Sodium 134 L (137-145) mmol/L Potassium 3.4 L (3.5-5.1) mmol/L BUN 38 H (9-20) mg/dL Creatinine 1.82 H (0.66-1.25) mg/dL Glucose 123 H (74-99) mg/dL POC Glucose (mg/dL) 108 H (75-99) mg/dL Calcium 6.7 L (8.4-10.2) mg/dL Alkaline Phosphatase 303 H (38-126) U/L Total Protein 5.3 L (6.3-8.2) g/dL Albumin 1.6 L (3.5-5.0) g/dL Microbiology - Last 24 Hours (Table) 11/18/21 12:12 Blood Culture - Preliminary Blood No Growth after 48 hours 11/18/21 12:12 Blood Culture - Preliminary Blood No Growth after 48 hours
[2021-11-20 20:27] LABS: Glucose,Whole Blood 165 mg/dL (75-99)
[2021-11-20] MEDS: ATORVASTATIN 40 MG TAB PO SCH (20:41)
[2021-11-20] MEDS: GABAPENTIN 100 MG CAP PO SCH (20:41)
[2021-11-20 22:20] LABS: Anisocytosis Slight; HCT 24.5 % (39.0-53.0); HGB 7.4 gm/dL (13.0-17.5); Hypochromasia Marked; MCH 27.7 pg (25.0-35.0); MCV 92.3 fL (80.0-100.0); Mean Platelet Volume 7.4; Platelet Count 374 k/uL (150-450); RBC 2.66 m/uL (4.30-5.90); RDW 16.6 % (11.5-15.5); WBC 27.6 k/uL (3.8-10.6)
[2021-11-21] MEDS: HEPARIN SODIUM,PORCINE/PF 5,000 UNIT/0.5 ML SYRINGE SQ SCH ×3 (01:41→17:59)
[2021-11-21 05:55] LABS: Glucose,Whole Blood 171 mg/dL (75-99)
[2021-11-21] MEDS: INSULIN ASPART (NovoLOG) 100 UNIT/ML VIAL SQ SCH ×4 (06:05→21:27)
[2021-11-21 08:07] LABS: Anisocytosis Slight; HCT 25.4 % (39.0-53.0); HGB 7.6 gm/dL (13.0-17.5); Hypochromasia Marked; MCH 27.5 pg (25.0-35.0); MCHC 29.8 g/dL (31.0-37.0); MCV 92.3 fL (80.0-100.0); Mean Platelet Volume 7.6; Platelet Count 341 k/uL (150-450); RBC 2.75 m/uL (4.30-5.90); RDW 16.6 % (11.5-15.5); WBC 27.3 k/uL (3.8-10.6)
[2021-11-21 08:19] LABS: Albumin 1.7 g/dL (3.5-5.0); Calcium 6.7 mg/dL (8.4-10.2); Potassium 3.7 mmol/L (3.5-5.1); Total Bilirubin 1.1 mg/dL (0.2-1.3); Total Protein 5.7 g/dL (6.3-8.2)
[2021-11-21] MEDS: IPRATROPIUM-ALBUTEROL 3 ML NEB INHALATION SCH ×2 (08:50→20:57)
[2021-11-21] MEDS: DULoxetine HCL 60 MG CAPSULE.DR PO SCH (09:57)
[2021-11-21] MEDS: METOPROLOL TARTRATE 50 MG TAB PO SCH ×2 (09:58→21:27)
[2021-11-21] MEDS: MIDODRINE 5 MG TAB PO SCH ×3 (09:58→17:59)
[2021-11-21] MEDS: ASPIRIN 81 MG PO SCH (09:58)
[2021-11-21] MEDS: SODIUM FERRIC GLUCONAT-SUCROSE 125 MG in SODIUM CHLORIDE 0.9% 100 ML IVPB SCH (09:58)
[2021-11-21] MEDS: PANTOPRAZOLE 40 MG TABLET PO SCH (09:58)
[2021-11-21] MEDS: ISOSORBIDE MONONITRATE ER 30 MG TAB.ER.24H PO SCH (09:58)
[2021-11-21] MEDS ORDERED: DARBEPOETIN ALFA 40 MCG/0.4 ML SYRINGE SQ SCH (10:00)
--- NOTE | 2021-11-21 10:22 | P.PN ---
Subjective Patient is seen for follow-up for acute kidney injuries, started on hemodialysis. Patient tolerated dialysis well yesterday however later on during the day patient was found in a pool of blood with his IJ permacath pulled out. He states that he does not remember pulling it out however patient's oxygen was of 2 and there is concern regarding ongoing hypoxia and confusion. Patient is scheduled for reinsertion of IJ permacath later on today by Dr. Dixon. Patient's girlfriend is present at bedside. He has been confused. Objective - Vital Signs Vital signs: Vital Signs Temp 97.7 F 11/21/21 04:00 Pulse 78 11/21/21 04:00 Resp 15 11/21/21 04:00 BP 107/56 11/21/21 04:00 Pulse Ox 92 L 11/21/21 04:00 Intake & Output 11/20/21 11/21/21 11/21/21 18:59 06:59 18:59 Intake Total 360 Output Total 2200 Balance -1840 Weight 89 kg Intake: Oral 360 Output: Urine 200 Hemodialysis 2000 Other: Voiding Method Indwelling Catheter Indwelling Catheter Indwelling Catheter - Exam awake, comfortable Examination of the heart S1 and S2 Examination lungs decreased breath sounds at the bases Abdomen is soft nontender Examination of lower extremities shows 1+ edema and chronic skin changes. POCKET SETTER exam grossly intact, patient is confused - Labs CBC & Chem 7: 11/21/21 07:47 11/21/21 07:47 Labs: Abnormal Lab Results - Last 24 Hours (Table) 11/20/21 11/20/21 11/20/21 Range/Units 11:41 15:52 15:52 WBC 28.7 H (3.8-10.6) k/uL RBC 2.57 L (4.30-5.90) m/uL Hgb 7.1 L (13.0-17.5) gm/dL Hct 23.6 L (39.0-53.0) % MCHC 30.1 L (31.0-37.0) g/dL RDW 16.3 H (11.5-15.5) % PT 16.0 H (9.0-12.0) sec INR 1.6 H (<1.2) APTT 44.2 H (22.0-30.0) sec Sodium (137-145) mmol/L Potassium (3.5-5.1) mmol/L BUN (9-20) mg/dL Creatinine (0.66-1.25) mg/dL Glucose (74-99) mg/dL POC Glucose (mg/dL) 119 H (75-99) mg/dL Calcium (8.4-10.2) mg/dL Alkaline Phosphatase (38-126) U/L Total Protein (6.3-8.2) g/dL Albumin (3.5-5.0) g/dL 11/20/21 11/20/21 11/20/21 Range/Units 15:52 16:35 20:25 WBC (3.8-10.6) k/uL RBC (4.30-5.90) m/uL Hgb (13.0-17.5) gm/dL Hct (39.0-53.0) % MCHC (31.0-37.0) g/dL RDW (11.5-15.5) % PT (9.0-12.0) sec INR (<1.2) APTT (22.0-30.0) sec Sodium 134 L (137-145) mmol/L Potassium 3.4 L (3.5-5.1) mmol/L BUN 38 H (9-20) mg/dL Creatinine 1.82 H (0.66-1.25) mg/dL Glucose 123 H (74-99) mg/dL POC Glucose (mg/dL) 108 H 165 H (75-99) mg/dL Calcium 6.7 L (8.4-10.2) mg/dL Alkaline Phosphatase 303 H (38-126) U/L Total Protein 5.3 L (6.3-8.2) g/dL Albumin 1.6 L (3.5-5.0) g/dL 11/20/21 11/20/21 11/21/21 Range/Units 21:59 21:59 05:43 WBC 27.6 H (3.8-10.6) k/uL RBC 2.66 L (4.30-5.90) m/uL Hgb 7.4 L (13.0-17.5) gm/dL Hct 24.5 L (39.0-53.0) % MCHC 30.0 L (31.0-37.0) g/dL RDW 16.6 H (11.5-15.5) % PT (9.0-12.0) sec INR (<1.2) APTT 38.3 H (22.0-30.0) sec Sodium (137-145) mmol/L Potassium (3.5-5.1) mmol/L BUN (9-20) mg/dL Creatinine (0.66-1.25) mg/dL Glucose (74-99) mg/dL POC Glucose (mg/dL) 171 H (75-99) mg/dL Calcium (8.4-10.2) mg/dL Alkaline Phosphatase (38-126) U/L Total Protein (6.3-8.2) g/dL Albumin (3.5-5.0) g/dL 11/21/21 11/21/21 Range/Units 07:47 07:47 WBC 27.3 H (3.8-10.6) k/uL RBC 2.75 L (4.30-5.90) m/uL Hgb 7.6 L (13.0-17.5) gm/dL Hct 25.4 L (39.0-53.0) % MCHC 29.8 L (31.0-37.0) g/dL RDW 16.6 H (11.5-15.5) % PT (9.0-12.0) sec INR (<1.2) APTT (22.0-30.0) sec Sodium 134 L (137-145) mmol/L Potassium (3.5-5.1) mmol/L BUN 43 H (9-20) mg/dL Creatinine 2.61 H (0.66-1.25) mg/dL Glucose 158 H (74-99) mg/dL POC Glucose (mg/dL) (75-99) mg/dL Calcium 6.7 L (8.4-10.2) mg/dL Alkaline Phosphatase 334 H (38-126) U/L Total Protein 5.7 L (6.3-8.2) g/dL Albumin 1.7 L (3.5-5.0) g/dL Microbiology - Last 24 Hours (Table) 11/18/21 12:12 Blood Culture - Preliminary Blood No Growth after 48 hours 11/18/21 12:12 Blood Culture - Preliminary Blood No Growth after 48 hours Assessment and Plan Assessment: 1. Chronic kidney disease stage IV secondary to diabetic kidney disease and cardiorenal syndrome currently started on dialysis secondary to severe volume overload. 2. Acute on chronic diastolic CHF with moderate tricuspid regurgitation 4. Type 2 diabetes 5. Hypervolemic hyponatremia 6. Acute kidney injury, ATN secondary to cardiorenal syndrome started on dialysis on 11/18/2021. Patient's catheter came out yesterday. He may have pulled it out while he was confused since his oxygen was not on as well. Plans are for placement of new catheter today. Plan: Dialysis on 11/22/2021 Continue with fluid restriction Continue with the Jeremiah
[2021-11-21 11:35] LABS: Glucose,Whole Blood 150 mg/dL (75-99)
[2021-11-21] MEDS ORDERED: HEPARIN SODIUM 1,000 UN/ML (10ML VL) ONE (12:28)
[2021-11-21] MEDS ORDERED: LIDOCAINE 1% INJ 10MG/ML (20 ML MDV) ONE (12:28)
[2021-11-21] MEDS: MIDAZOLAM 2 MG/2 ML VIAL IVP ONE ×2 (13:06→13:29)
[2021-11-21] MEDS ORDERED: LIDOCAINE 1% INJ 10MG/ML (10 ML MDV) SQ ONE (13:09)
[2021-11-21] MEDS ORDERED: SODIUM CHLORIDE 0.9% 1,000 ML IV ONE (13:10)
--- NOTE | 2021-11-21 15:26 | XR ---
EXAMINATION TYPE: XR chest 1V DATE OF EXAM: 11/21/2021 CLINICAL HISTORY: Dialysis catheter placement. TECHNIQUE: Single AP portable upright view of the chest is obtained. COMPARISON: Chest x-ray from 3 days earlier. FINDINGS: There is new large bore right internal jugular dual-lumen dialysis catheter with tips termi nating in right atrium. No pneumothorax seen after catheter placement. Low lung volumes redemonstrated with worsening central and bilateral lower lung opacities. Interval C ardiac silhouette size stable and within normal limits. Osseous structures are intact. IMPRESSION: Worsening bilateral edema and/or infiltrates on background low lung volumes. No pneumotho rax after dialysis catheter placement.
--- NOTE | 2021-11-21 15:27 | IR ---
EXAMINATION TYPE: IR cvc insert central tunneled DATE OF EXAM: 11/21/2021 CLINICAL HISTORY: Failed dialysis. TECHNIQUE: Fluoroscopy. COMPARISON: None. FINDINGS: Fluoroscopic guidance was provided during right internal jugular dialysis catheter inserti on procedure performed by Dr. Dixon. A total of 4.3 minutes of fluoroscopic time was utilized duri ng the procedure and 142 spot images are acquired. IMPRESSION: As Above.
--- NOTE | 2021-11-21 15:49 | P.PN ---
Subjective Progress Note Date: 11/21/21 This is a very pleasant 51-year-old male patient is a very well-known to me. I took care of this patient during a prolonged hospitalization back in August 2021 that extended through September 2021. The patient has multiple medical problems. The patient is post coronary 19 pneumonia that occurred last year requiring intubation mechanical ventilation. He is known to have previous history of infective endocarditis of the aortic valve, previous history of MRSA soft tissue infection involving the left flank Combigan by cellulitis/abscess, he is diabetic1, peripheral diabetic neuropathy and retinopathy, diastolic heart failure, hypertension, hyperlipidemia, chronic lower extremity ulceration of the skin at the radius stages, COPD, and chronic stage for kidney disease that has been followed up by Dr. Christine on outpatient basis. The patient came into the emergency having more shortness of breath and more swelling in his abdomen and his lower extremities bilaterally. He felt that he was getting more overloaded with fluids. He typically is on oxygen at 5 L at home and currently is on 6 L. His chest x-ray showing some increased pulmonary vascular markings/edema bilaterally. No cough. No sputum production. No chest tightness. No wheezing. No significant leukocytosis. White cell count is at 9.3 with a hemoglobin of 11.9, his creatinine is up to 3.05 and the patient has stage IV kidney disease with a GFR of 23. Sodium level is at 1:30. Glucose is up to 39, proBNP level is 39,009 100 and LFTs are essentially within normal limits. INR is at 1.4 with a PT of 14.3 and a PTT of 27. His last echocardiogram that was done on 09/23/2021 showed a ejection fraction of 55-60%, he had moderate aortic regurgitation, moderate tricuspid regurgitation, moderate to severe pulmonary hypertension with a PA pressure of 51, moderate degree of concentric left ventricular hypertrophy. Based on his medication from home, the patient was taking Demadex 20 mg by mouth twice a day. Currently he is on Lasix drip at 10 mg an hour. Giraldo catheter is in place and the patient is producing urine o utput for now. On 11/17/2021 patient is seen in follow-up on selective care unit, she is lethargic, but arousable, he is currently on 5 L of oxygen pulse ox is 93-99%, he remains on Lasix infusion at 10 mg per hour and he is in -300 mL negative nodes balance over the last 24 hours. Does not appear to be in any acute distress, he answers simple questions, he dozes back off. [place] any chest discom fort. Today's labs have been reviewed, his renal function is fairly stable, with BUN of 85 and creatinine of 3.06. Sodium is improved at 1:30, respiratory electrolytes were within normal limits, potassium is 3.6, white blood cell count of 17.5, hemoglobin is 7.5. Echocardiogram has been completed, awaiting official readout. Generally patient is quite weak. Has been on and off lethargic. He remains generally swollen with abdominal wall edema, upper and lower extremity edema. He continues on nebulized bronchodilators. On 11/18/2021 patient seen in follow-up on selective care unit. Patient is lethargic but arousable to voice, his blood pressure is 83/50, but he is afebrile. He is currently on 5 L of oxygen pulse ox is 90-92%. His Lasix drip has been discontinued, Norvasc the surgery has been consulted for insertion of temporary hemodialysis catheter. Follow-up chest x-ray has been obtained showing worsening left lower lobe infiltrate and/or atelectasis, and stable and less prominent right medial basilar infiltrate, low lung volumes. Patient denies any cough, no phlegm production. White count today is elevated at 20.7, and blood cultures will be sent. Hemoglobin is 7.1, platelet count is 304, sodium is 1:30, potassium is 4.2, chloride is 11, CO2 is 20, and Is 90, B1 is 96, creatinine is 3.21. Lactic acid is 0.7. Urinalysis was also sent showing moderate amount of blood, but white blood cells at 4. Midodrine has been added. Patient's antihypertensives have been held including Lopressor and Imdur. On 11/19/2021 patient is seen in follow-up on selective care unit. Patient is lethargic, patient was started on hemodialysis yesterday, he had another treatment today 2 L off. Following his hemodialysis patient is quite fatigued, lethargic, but he is arousable to voice. Today's labs have been reviewed, white blood cell count is 27.6, hemoglobin is 7.8, platelet count was 278, sodium is 136, dressed electrolyte are within normal limits, BUN of 79 creatinine is 3.16. Blood cultures have shown no growth. Still has quite significant generalized edema, which is slightly improved. Still has abdominal wall edema with abdominal skin striae, lower extremity edema and scrotal edema. Appetite has been poor. Is currently on 5 L of oxygen pulse ox is 92%. Blood pressures improved currently at 140/74, no fever or chills. 11/20/2021, the patient is awake and alert. He is undergoing hemodialysis changes or the undergone 2 sessions of hemodialysis and the patient is going to undergo his first session with a goal of ultrafiltration of 2 L. There is third spacing and edema is improving. He had ascites, abdominal wall edema, lower extremity edema with seems to be better. Mentally, he is also less cloudy, much more alert and responsive on today's evaluation. No significant shortness of breath. He is resting comfortably in bed. The patient has a white cell count of 24 with hemoglobin 8.2, his potassium level is at 3.6. His creatinine is down to 2.5 and a BUN is a 57. LFTs are showing some mild elevation of alkaline phosphatase of 294 with a bilirubin of 1.3. ALT and AST are all essentially within normal limits. His albumin serums at 1.7. 11/21/2021, the patient is doing well. Underwent hemodialysis yesterday. He had adequate ultrafiltration in the volume status gradually improving. Noted the patient tolerated the procedure well and later on during the day the patient was found to have blood within the IJ permacath that had been pulled out. Based on that, the patient is scheduled to have another internal jugular permacath r einsertion. He is afebrile. He is hemodynamically stable. Lower extremity edema is improved. He is currently on 5 L O2 nasal cannula with a pulse is a 93%. Breathing is nonlabored. He is afebrile. The blood cultures of been negative. White cell count is at 27 with a hemoglobin of 7.6. Blood sugar is at 150. Less encephalopathic. Objective - Vital Signs Vital signs: Vital Signs Temp 97.6 F 11/21/21 11:32 Pulse 75 11/21/21 11:32 Resp 17 11/21/21 11:32 BP 109/76 11/21/21 11:32 Pulse Ox 93 L 03/20/22 11:32 Intake & Output 11/20/21 11/21/21 11/21/21 18:59 06:59 18:59 Intake Total 360 20 Output Total 2200 Balance -1840 20 Weight 89 kg Intake: IV 20 Oral 360 Output: Urine 200 Hemodialysis 2000 Other: Voiding Method Indwelling Catheter Indwelling Catheter Indwelling Catheter - Exam GENERAL EXAM: Lethargic very pleasant, 51-year-old chronically ill-looking lethargic but arousable white male, on 5 L of oxygen and a pulse ox of 92% comfortable in no apparent distress. HEAD: Normocephalic/atraumatic. EYES: Normal reaction of pupils, equal size. Conjunctiva pink, sclera white. NOSE: Clear with pink turbinates. THROAT: No erythema or exudates. NECK: No masses, no JVD, no thyroid enlargement, no adenopathy. CHEST: No chest wall deformity. Symmetrical expansion. LUNGS: Equal air entry with no crackles, wheeze, rhonchi or dullness. CVS: Regular rate and rhythm, normal S1 and S2, no gallops, no murmurs, no rubs ABDOMEN: Soft, nontender. No hepatosplenomegaly, normal bowel sounds, no guard ing or rigidity. EXTREMITIES: No clubbing, there is edema, no cyanosis, 2+ pulses and upper and lower extremities. MUSCULOSKELETAL: Muscle strength and tone normal. SPINE: No scoliosis or deformity SKIN: No rashes CENTRAL NERVOUS SYSTEM: Lethargic but arousable No focal deficits, tone is normal in all 4 extremities. - Labs CBC & Chem 7: 11/21/21 07:47 11/21/21 07:47 Labs: Abnormal Lab Results - Last 24 Hours (Table) 11/20/21 11/20/21 11/20/21 Range/Units 15:52 15:52 15:52 WBC 28.7 H (3.8-10.6) k/uL RBC 2.57 L (4.30-5.90) m/uL Hgb 7.1 L (13.0-17.5) gm/dL Hct 23.6 L (39.0-53.0) % MCHC 30.1 L (31.0-37.0) g/dL RDW 16.3 H (11.5-15.5) % PT 16.0 H (9.0-12.0) sec INR 1.6 H (<1.2) APTT 44.2 H (22.0-30.0) sec Sodium 134 L (137-145) mmol/L Potassium 3.4 L (3.5-5.1) mmol/L BUN 38 H (9-20) mg/dL Creatinine 1.82 H (0.66-1.25) mg/dL Glucose 123 H (74-99) mg/dL POC Glucose (mg/dL) (75-99) mg/dL Calcium 6.7 L (8.4-10.2) mg/dL Alkaline Phosphatase 303 H (38-126) U/L Total Protein 5.3 L (6.3-8.2) g/dL Albumin 1.6 L (3.5-5.0) g/dL 11/20/21 11/20/21 11/20/21 Range/Units 16:35 20:25 21:59 WBC (3.8-10.6) k/uL RBC (4.30-5.90) m/uL Hgb (13.0-17.5) gm/dL Hct (39.0-53.0) % MCHC (31.0-37.0) g/dL RDW (11.5-15.5) % PT (9.0-12.0) sec INR (<1.2) APTT 38.3 H (22.0-30.0) sec Sodium (137-145) mmol/L Potassium (3.5-5.1) mmol/L BUN (9-20) mg/dL Creatinine (0.66-1.25) mg/dL Glucose (74-99) mg/dL POC Glucose (mg/dL) 108 H 165 H (75-99) mg/dL Calcium (8.4-10.2) mg/dL Alkaline Phosphatase (38-126) U/L Total Protein (6.3-8.2) g/dL Albumin (3.5-5.0) g/dL 11/20/21 11/21/21 11/21/21 Range/Units 21:59 05:43 07:47 WBC 27.6 H 27.3 H (3.8-10.6) k/uL RBC 2.66 L 2.75 L (4.30-5.90) m/uL Hgb 7.4 L 7.6 L (13.0-17.5) gm/dL Hct 24.5 L 25.4 L (39.0-53.0) % MCHC 30.0 L 29.8 L (31.0-37.0) g/dL RDW 16.6 H 16.6 H (11.5-15.5) % PT (9.0-12.0) sec INR (<1.2) APTT (22.0-30.0) sec Sodium (137-145) mmol/L Potassium (3.5-5.1) mmol/L BUN (9-20) mg/dL Creatinine (0.66-1.25) mg/dL Glucose (74-99) mg/dL POC Glucose (mg/dL) 171 H (75-99) mg/dL Calcium (8.4-10.2) mg/dL Alkaline Phosphatase (38-126) U/L Total Protein (6.3-8.2) g/dL Albumin (3.5-5.0) g/dL 11/21/21 11/21/21 Range/Units 07:47 11:33 WBC (3.8-10.6) k/uL RBC (4.30-5.90) m/uL Hgb (13.0-17.5) gm/dL Hct (39.0-53.0) % MCHC (31.0-37.0) g/dL RDW (11.5-15.5) % PT (9.0-12.0) sec INR (<1.2) APTT (22.0-30.0) sec Sodium 134 L (137-145) mmol/L Potassium (3.5-5.1) mmol/L BUN 43 H (9-20) mg/dL Creatinine 2.61 H (0.66-1.25) mg/dL Glucose 158 H (74-99) mg/dL POC Glucose (mg/dL) 150 H (75-99) mg/dL Calcium 6.7 L (8.4-10.2) mg/dL Alkaline Phosphatase 334 H (38-126) U/L Total Protein 5.7 L (6.3-8.2) g/dL Albumin 1.7 L (3.5-5.0) g/dL Microbiology - Last 24 Hours (Table) 11/18/21 12:12 Blood Culture - Preliminary Blood No Growth after 72 hours 11/18/21 12:12 Blood Culture - Preliminary Blood No Growth after 72 hours Assessment and Plan Plan: Assessment: #1. Acute on chronic hypoxic respiratory failure secondary to acute fluid overload and interstitial edema. No evidence of superinfection at this point in time, currently on 5 L of oxygen and this is his home dose oxygen. His hypoxia has improved. Patient remains on diuretics. Patient continues to be generally swollen with increased abdominal wall swelling, scrotal edema, lower extremity edema he is stage IV chronic kidney disease. Lasix drip has been discontinued, patient is having hemodialysis catheter inserted and the patient has completed 3 sessions of hemodialysis when there is obvious improvement in his volume status which is being progressively more optimized. #2. COVID-19 pneumonia with secondary respiratory failure hospitalized at [facility] in 2020 #3. Chronic stage IV kidney disease, currently on hemodialysis #4. 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 Diabetes mellitus type 1, poorly controlled #7. Diabetic peripheral neuropathy, diabetic retinopathy #8. Congestive heart failure with diastolic dysfunction, with moderate to severe aortic regurgitation, moderately severe tricuspid regurgitation secondary to pulmonary hypertension #9. Hypertension #10. Hyperlipidemia #11. Multiple bilateral lower extremity ulcerations with various healing stages and diabetic peripheral neuropathy #12. COPD #13. Medication noncompliance #14. Medical debility secondary to above-mentioned comorbidities #15 leukocytosis 6. Anemia of chronic disease Plan: Patient will need at least insertion of a permacath. Previously isn't permacath got inadvertently pulled out this will be done by vascular surgery. Continue hemodialysis per nephrology The patient is less encephalopathic His been bedbound Appetite has been poor Blood cultures have been sent, and the blood cultures of been negative, white cell count remains elevated No growth so far, awaiting final cultures Chest x-ray showing worsening left lower lung infiltrate and atelectasis, low lung volumes Nephrology is on the case. Vascular surgery is on the case. But overall he seems to be quite debilitated His prognosis is quite guarded
[2021-11-21 16:59] LABS: Glucose,Whole Blood 158 mg/dL (75-99)
--- NOTE | 2021-11-21 17:34 | P.PN ---
Progress Note - Text Progress Note Date: 11/21/21 History of presenting complaint This is a pleasant 51-year-old patient, chronic stable medical conditions include diabetes mellitus type 2, peripheral neuropathy, hyperlipidemia patient has chronic lower extremity leg wounds. CHF 50-55%, Autonomic dysfunction from diabetes. Causing orthostatics. oxygen at 5 L via nasal cannula at home. presents to ER with complaints of difficulty breathing and generalized weakness. Patient also having worsening bilateral lower extremity edema and weight gain. Symptoms have been getting worse for the past 3 days. Denied any complaints of cough or sputum production. No fever no chills. No headache or dizziness or lightheadedness. Chest x-ray showed mild cardiomegaly. Prominent hypoventilatory changes limiting reassessment. Patchy opacities and possible trace effusions. Correlate for mild to moderate CHF. Patient was started on IV Lasix 40 mg every 8 hourly in the ER. EKG showed sinus tachycardia. Laboratory showed WBC 9.3 hemoglobin 11.9 and platelets 259 sodium 130 potassium 3.7 chloride 97 bicarb is 23 BUN 84 and creatinine 3.05 and blood sugar is 239 lactic acid 1.5 total bilirubin was 1.5 alk phos 207 and proBNP 31236 and albumin level is 2.5. Most recent echocardiogram in September 2021 showed ejection fraction 55 to 60% and moderate TR and mild MR and moderate TR and mild pulmonary hypertension and small generalized pericardial effusion and large pleural effusion. Patient was previously admitted to the hospital due to COVID-19 infection requiring mechanical ventilation and also history of infective endocarditis. November 18: I assumed care of patient today. Patient had been on Lasix drip. Minimal urine output. Lasix drip was discontinued. Poor appetite. Vascular surgery consulted for dialysis catheter placement and dialysis to be started today. Fluid restriction. Patient feeling tired and rundown. November 19: Patient started hemodialysis yesterday. Another dialysis today. Not much of an appetite. Discussed with the at the bedside. Encourage oral intake. Tired. November 20: Patient had urinalysis done today. Ate a little bit. No edema. Tired. As the patient to sit up in a chair with assistance. November 21: Yesterday patient reported out as hemodialysis catheter. Patient is due to have another catheter this afternoon. Poor oral intake. Tired. Active Medications Hydrocodone Bitart/Acetaminophen (Hydrocodone/Apap 5-325mg 1 Each Tab) 1 each PO Q6HR PRN PRN Reason: Pain Last Admin: 11/19/21 13:42 Dose: 1 each Documented by: Albuterol/Ipratropium (Ipratropium-Albuterol 3 Ml Neb) 3 ml INHALATION RT- BID@899,2099 [facility] Last Admin: 11/21/21 08:50 Dose: Not Given Documented by: Aspirin (Aspirin 81 Mg) 81 mg PO DAILY@09 [facility] Last Admin: 11/21/21 09:58 Dose: Not Given Documented by: Atorvastatin Calcium (Atorvastatin 40 Mg Tab) 40 mg PO HS@2099 [facility] Last Admin: 11/20/21 20:41 Dose: 40 mg Documented by: Darbepoetin Andrez (Darbepoetin Andrez 40 Mcg/0.4 Ml Syringe) 40 mcg SQ Q7D [facility] Last Admin: 11/21/21 09:58 Dose: 40 mcg Documented by: Duloxetine HCl (Duloxetine Hcl 60 Mg Capsule.Dr) 60 mg PO DAILY@09 [facility] Last Admin: 11/21/21 09:57 Dose: 60 mg Documented by: Gabapentin (Gabapentin 100 Mg Cap) 100 mg PO HS [facility] Last Admin: 11/20/21 20:41 Dose: 100 mg Documented by: Heparin Sodium (Porcine) (Heparin Sodium,Porcine/Pf 5,000 Unit/0.5 Ml Syringe) 5,000 unit SQ Q8HR [facility] Last Admin: 11/21/21 09:33 Dose: Not Given Documented by: Insulin Aspart (Insulin Aspart (Novolog) 100 Unit/Ml Vial) 0 unit SQ [facility]; Protocol Last Admin: 11/21/21 11:31 Dose: Not Given Documented by: Isosorbide Mononitrate (Isosorbide Mononitrate Er 30 Mg Tab.Er.24h) 30 mg PO DAILY@0900 [facility] Last Admin: 11/21/21 09:58 Dose: 30 mg Documented by: Metoprolol Tartrate (Metoprolol Tartrate 50 Mg Tab) 50 mg PO BID@899,2099 [facility] Last Admin: 11/21/21 09:58 Dose: 50 mg Documented by: Midodrine (Midodrine 5 Mg Tab) 10 mg PO AC-TID [facility] Last Admin: 11/21/21 11:31 Dose: Not Given Documented by: Miscellaneous Information (Potassium Replacement Protocol 1 Each Misc) 1 each MISCELLANE DAILY PRN; Protocol PRN Reason: Per Protocol Ondansetron HCl (Ondansetron 4 Mg/2 Ml Vial) 4 mg IVP Q6HR PRN PRN Reason: Nausea And Vomiting Pantoprazole Sodium (Pantoprazole 40 Mg Tablet) 40 mg PO DAILY@0730 [facility] Last Admin: 11/21/21 09:58 Dose: Not Given Documented by: Ropinirole HCl (Ropinirole Hcl 0.25 Mg Tab) 0.25 mg PO HS@2100 [facility] Last Admin: 11/20/21 20:41 Dose: 0.25 mg Documented by: Past medical history to include: Diabetes, hyperlipidemia, peripheral neuropathy, MRSA infection including abscess and cellulitis,, anxiety, diabetic autonomic dysfunction. CHF EF 50-55% Social history: Currently at [employer]. Previously did [employer]. Smoking 2 packs a day for 32 years. , Stopped less than a year ago. Alcohol occasionally. Physical examination: VITAL SIGNS: 98.1, 75, 17, 109/76, 93% on 5 L GENERAL: , laying in bed awake, tired EYES: Pupils equal. Conjunctiva normal. HEENT: External appearance of nose and ears normal, oral cavity grossly normal. NECK: JVD not raised; masses not palpable. HEART: First and second heart sounds are normal; edema present LUNGS: Respiratory rate normal; decreased breath sounds. ABDOMEN: Soft, some distended nontender, liver spleen not palpable, no masses palpable. PSYCH: [Alert and oriented x3; mood and affect anxious MUSCULOSKELETAL:No Clubbing/cyanosis;muscles-grossly intact NEUROLOGICAL: [Cranial nerves grossly intact; no facial asymmetry, decreased sensation distally. INVESTIGATIONS, reviewed in the clinical context: November 21: White count was 7.3 hemoglobin 7.6 potassium 3.7 creatinine 2.61 November 20: White count 28.7 hemoglobin 7.1 November 19: White count 27.6 hemoglobin 7.8 potassium 4.1. 79 creatinine 3.16 White count 20.7 hemoglobin 7.1 platelets 304 sodium 1:30 potassium 4.2 BUN 96 creatinine 3.2 on EKG: Sinus tachycardia Chest x-ray film personally reviewed by me-left basal atelectasis. Assessment and plan: --Acute on Chronic congestive heart failure from diastolic dysfunction EF 50- 55%: Not improving Patient failed a Lasix drip. With no urine output. On hemodialysis -Autonomic gastroparesis causing vomiting. -Acute medical debility multifactorial -Chronic autonomic dysfunction from diabetes- Fall precautions -Chronic stable angina with a prior history of positive nuclear stress test. Imdur ER 30 mg a day -Chronic lower extremity wounds. Continue wound care. -Essential hypertension Lopressor 50 mg twice a day -Secondary pulmonary hypertension due to CHF Follow clinically -Diabetes mellitus type 2 on ozempic. Uncontrolled with hypoglycemia Diabetic diet Follow Accu-Cheks. -Diabetic peripheral neuropathy Neurontin 100 mg daily at bedtime -Hyperlipidemia Lipitor 40 mg a day -COPD in a previous smoker DuoNeb twice a day -Chronic kidney disease stage 4 likely combination of diabetic nephropathy and hypertensive nephrosclerosis, progressed to end-stage kidney disease: Sodium respond Hemodialysis started November 19. Patient pulled out his dialysis catheter on November 20. -Primary osteoarthritis of the hip Tylenol as needed -Anorexia, multifactorial Encourage oral intake. Hopefully to improve with hemodialysis Encourage oral intake. Dr. Dixon replacing another dialysis catheter today. Dialysis to continue. Other medications to continue. Prognosis guarded. Advanced care planning: This was discussed in detail with the patient regarding his overall cardiac prognosis. fraility Poor appetite. Option of DO NOT RESUSCITATE was discussed. At this point patient wishes to remain full code." Further discussed with the family. Total time spent about 20 minutes
--- NOTE | 2021-11-21 19:31 | PCN ---
PROCEDURE NOTE PREOPERATIVE DIAGNOSIS: Acute on chronic renal failure. POSTOPERATIVE DIAGNOSIS: Acute on chronic renal failure. PROCEDURE PERFORMED: Ultrasound-guided 23 cm dialysis catheter right jugular approach under local and IV sedation. Sedation time was 20 minutes. DESCRIPTION OF PROCEDURE: This patient was brought to the blender laborer. Right side of the neck and chest was prepped and drapes applied in a sterile manner. 1% lidocaine were infiltrated in the neck area. Ultrasound-guided micropuncture into the right jugular vein. Micropuncture guidewire was passed and 4-[place] dilator on the top of the guidewire. Then a small incision was made on the chest wall. A tunnel was created. Through the tunnel, we brought a 23 cm dialysis catheter. After that, we passed a guidewire which was parked in the inferior vena cava. First, we passed a dilator. Then we placed a sheath on the top of the guidewire. Through the sheath, we introduced the dialysis catheter. Tip of the catheter introduced into superior vena junction, flushed with heparin saline and hep- locked, secured with 3-0 silk. Dressing applied. Patient tolerated the procedure well. PLAN: The patient is going to the room, will have a portable stat chest x-ray. MMODL / IJN: [id number] /
[2021-11-21 20:13] LABS: Glucose,Whole Blood 148 mg/dL (75-99)
[2021-11-21] MEDS: ATORVASTATIN 40 MG TAB PO SCH (21:27)
[2021-11-21] MEDS: GABAPENTIN 100 MG CAP PO SCH (21:27)
[2021-11-22] MEDS: HEPARIN SODIUM,PORCINE/PF 5,000 UNIT/0.5 ML SYRINGE SQ SCH ×4 (01:02→23:47)
[2021-11-22 06:08] LABS: Glucose,Whole Blood 146 mg/dL (75-99)
[2021-11-22] MEDS: MIDODRINE 5 MG TAB PO SCH ×4 (06:16→18:00)
[2021-11-22] MEDS: PANTOPRAZOLE 40 MG TABLET PO SCH (06:16)
[2021-11-22] MEDS: INSULIN ASPART (NovoLOG) 100 UNIT/ML VIAL SQ SCH ×4 (06:17→20:23)
[2021-11-22] MEDS: IPRATROPIUM-ALBUTEROL 3 ML NEB INHALATION SCH ×2 (07:38→21:06)
[2021-11-22] MEDS: ASPIRIN 81 MG PO SCH (09:29)
[2021-11-22] MEDS: DULoxetine HCL 60 MG CAPSULE.DR PO SCH (09:29)
[2021-11-22] MEDS: METOPROLOL TARTRATE 50 MG TAB PO SCH ×2 (09:32→20:28)
[2021-11-22] MEDS: ISOSORBIDE MONONITRATE ER 30 MG TAB.ER.24H PO SCH (09:32)
[2021-11-22] MEDS ORDERED: MIDODRINE 5 MG TAB PO ONE (11:00)
--- NOTE | 2021-11-22 11:10 | P.PN ---
Subjective Patient is seen for follow-up for acute kidney injuries, started on hemodialysis. Patient tolerated dialysis well yesterday however later on during the day patient was found in a pool of blood with his IJ permacath pulled out. He states that he does not remember pulling it out however patient's oxygen was of 2 and there is concern regarding ongoing hypoxia and confusion. Patient is status post new IJ catheter placement Patient is seen on hemodialysis today. He is fairly comfortable. He remains confused on and off. Currently with a heavy dressing on the catheter as well as gloves on the right hand. Blood pressure staying on the lower side. Objective - Vital Signs Vital signs: Vital Signs Temp 97.7 F 11/22/21 04:00 Pulse 75 11/22/21 04:00 Resp 16 11/22/21 04:00 BP 97/61 11/22/21 04:00 Pulse Ox 92 L 11/22/21 04:00 Intake & Output 11/21/21 11/22/21 11/22/21 18:59 06:59 18:59 Intake Total 20 540 0 Output Total 450 Balance 20 90 0 Intake: IV 20 Oral 540 0 Output: Urine 450 Other: Voiding Method Indwelling Catheter Indwelling Catheter - Exam awake, comfortable Examination of the heart S1 and S2 Examination lungs decreased breath sounds at the bases Abdomen is soft nontender Examination of lower extremities shows trace edema and chronic skin changes. PROGRAM COORDINATOR EXECUTIVE EDUCATION exam grossly intact, patient is confused - Labs CBC & Chem 7: 11/21/21 07:47 11/21/21 07:47 Labs: Abnormal Lab Results - Last 24 Hours (Table) 11/21/21 11/21/21 11/21/21 Range/Units 11:33 16:58 20:05 POC Glucose (mg/dL) 150 H 158 H 148 H (75-99) mg/dL 11/22/21 Range/Units 06:06 POC Glucose (mg/dL) 146 H (75-99) mg/dL Microbiology - Last 24 Hours (Table) 11/18/21 12:12 Blood Culture - Preliminary Blood No Growth after 72 hours 11/18/21 12:12 Blood Culture - Preliminary Blood No Growth after 72 hours Assessment and Plan Assessment: 1. Chronic kidney disease stage IV secondary to diabetic kidney disease and cardiorenal syndrome currently started on dialysis secondary to severe volume overload. 2. Acute on chronic diastolic CHF with moderate tricuspid regurgitation 4. Type 2 diabetes 5. Hypervolemic hyponatremia 6. Acute kidney injury, ATN secondary to cardiorenal syndrome started on dialysis on 11/18/2021. Patient's catheter came out yesterday. He may have pulled it out while he was confused since his oxygen was not on as well. Status post new catheter placement 7, hypervolemia currently improved Plan: No significant ultrafiltration today. We will hold hemodialysis tomorrow Continue with midodrine
[2021-11-22 11:49] LABS: Glucose,Whole Blood 137 mg/dL (75-99)
--- NOTE | 2021-11-22 14:32 | P.PN ---
Progress Note - Text Progress Note Date: 11/22/21 History of presenting complaint This is a pleasant 51-year-old patient, chronic stable medical conditions include diabetes mellitus type 2, peripheral neuropathy, hyperlipidemia patient has chronic lower extremity leg wounds. CHF 50-55%, Autonomic dysfunction from diabetes. Causing orthostatics. oxygen at 5 L via nasal cannula at home. presents to ER with complaints of difficulty breathing and generalized weakness. Patient also having worsening bilateral lower extremity edema and weight gain. Symptoms have been getting worse for the past 3 days. Denied any complaints of cough or sputum production. No fever no chills. No headache or dizziness or lightheadedness. Chest x-ray showed mild cardiomegaly. Prominent hypoventilatory changes limiting reassessment. Patchy opacities and possible trace effusions. Correlate for mild to moderate CHF. Patient was started on IV Lasix 40 mg every 8 hourly in the ER. EKG showed sinus tachycardia. Laboratory showed WBC 9.3 hemoglobin 11.9 and platelets 259 sodium 130 potassium 3.7 chloride 97 bicarb is 23 BUN 84 and creatinine 3.05 and blood sugar is 239 lactic acid 1.5 total bilirubin was 1.5 alk phos 207 and proBNP 10204 and albumin level is 2.5. Most recent echocardiogram in September 2021 showed ejection fraction 55 to 60% and moderate TR and mild MR and moderate TR and mild pulmonary hypertension and small generalized pericardial effusion and large pleural effusion. Patient was previously admitted to the hospital due to COVID-19 infection requiring mechanical ventilation and also history of infective endocarditis. November 18: I assumed care of patient today. Patient had been on Lasix drip. Minimal urine output. Lasix drip was discontinued. Poor appetite. Vascular surgery consulted for dialysis catheter placement and dialysis to be started today. Fluid restriction. Patient feeling tired and rundown. November 19: Patient started hemodialysis yesterday. Another dialysis today. Not much of an appetite. Discussed with the at the bedside. Encourage oral intake. Tired. November 20: Patient had urinalysis done today. Ate a little bit. No edema. Tired. As the patient to sit up in a chair with assistance. November 21: Yesterday patient reported out as hemodialysis catheter. Patient is due to have another catheter this afternoon. Poor oral intake. Tired. November 22: Patient delirious. Has a sitter. Dialysis catheter placed right chest wall. Spoke to patient's girlfriend Myrna. Will have patient's daughter come in tomorrow and discuss CODE STATUS. Also discussed with Dr. Rodgers. DO NOT RESUSCITATE appears to be appropriate Active Medications Hydrocodone Bitart/Acetaminophen (Hydrocodone/Apap 5-325mg 1 Each Tab) 1 each PO Q6HR PRN PRN Reason: Pain Last Admin: 11/19/21 13:42 Dose: 1 each Documented by: Albuterol/Ipratropium (Ipratropium-Albuterol 3 Ml Neb) 3 ml INHALATION RT- BID@899,2099 [facility] Last Admin: 11/22/21 07:38 Dose: Not Given Documented by: Aspirin (Aspirin 81 Mg) 81 mg PO DAILY@899 [facility] Last Admin: 11/22/21 09:29 Dose: 81 mg Documented by: Atorvastatin Calcium (Atorvastatin 40 Mg Tab) 40 mg PO HS@2099 [facility] Last Admin: 11/21/21 21:27 Dose: Not Given Documented by: Darbepoetin Andrez (Darbepoetin Andrez 40 Mcg/0.4 Ml Syringe) 40 mcg SQ Q7D [facility] Last Admin: 11/21/21 09:58 Dose: 40 mcg Documented by: Duloxetine HCl (Duloxetine Hcl 60 Mg Capsule.) 60 mg PO DAILY@899 [facility] Last Admin: 11/22/21 09:29 Dose: 60 mg Documented by: Gabapentin (Gabapentin 100 Mg Cap) 100 mg PO [facility] Last Admin: 11/21/21 21:27 Dose: Not Given Documented by: Heparin Sodium (Porcine) (Heparin Sodium,Porcine/Pf 5,000 Unit/0.5 Ml Syringe) 5,000 unit SQ Q8HR [facility] Last Admin: 11/22/21 09:29 Dose: 5,000 unit Documented by: Insulin Aspart (Insulin Aspart (Novolog) 100 Unit/Ml Vial) 0 unit SQ [facility]; Protocol Last Admin: 11/22/21 12:58 Dose: 1 unit Documented by: Isosorbide Mononitrate (Isosorbide Mononitrate Er 30 Mg Tab.Er.24h) 30 mg PO DAILY@0900 [facility] Last Admin: 11/22/21 09:32 Dose: Not Given Documented by: Metoprolol Tartrate (Metoprolol Tartrate 50 Mg Tab) 50 mg PO BID@899,2099 [facility] Last Admin: 11/22/21 09:32 Dose: Not Given Documented by: Midodrine (Midodrine 5 Mg Tab) 10 mg PO AC-TID [facility] Last Admin: 11/22/21 12:59 Dose: 10 mg Documented by: Miscellaneous Information (Potassium Replacement Protocol 1 Each Misc) 1 each MISCELLANE DAILY PRN; Protocol PRN Reason: Per Protocol Ondansetron HCl (Ondansetron 4 Mg/2 Ml Vial) 4 mg IVP Q6HR PRN PRN Reason: Nausea And Vomiting Pantoprazole Sodium (Pantoprazole 40 Mg Tablet) 40 mg PO DAILY@0730 [facility] Last Admin: 11/22/21 06:16 Dose: Not Given Documented by: Ropinirole HCl (Ropinirole Hcl 0.25 Mg Tab) 0.25 mg PO HS@2100 [facility] Last Admin: 11/21/21 21:27 Dose: Not Given Documented by: Past medical history to include: Diabetes, hyperlipidemia, peripheral neuropathy, MRSA infection including abscess and cellulitis,, anxiety, diabetic autonomic dysfunction. CHF EF 50-55% Social history: Currently at [employer]. Previously did [id number]. Smoking 2 packs a day for 32 years. , Stopped less than a year ago. Alcohol occasionally. Physical examination: VITAL SIGNS: 98.4, 80, 21, 111/68, 92% on 5 L GENERAL: , laying in bed delirious EYES: Pupils equal. Conjunctiva normal. HEENT: External appearance of nose and ears normal, oral cavity grossly normal. NECK: JVD not raised; masses not palpable. HEART: First and second heart sounds are normal; edema present LUNGS: Respiratory rate normal; decreased breath sounds. ABDOMEN: Soft, some distended nontender, liver spleen not palpable, no masses palpable. PSYCH: Lethargic delirious MUSCULOSKELETAL:No Clubbing/cyanosis;muscles-grossly intact NEUROLOGICAL: [Cranial nerves grossly intact; no facial asymmetry, decreased sensation distally. INVESTIGATIONS, reviewed in the clinical context: November 21: White count was 7.3 hemoglobin 7.6 potassium 3.7 creatinine 2.61 November 20: White count 28.7 hemoglobin 7.1 November 19: White count 27.6 hemoglobin 7.8 potassium 4.1. 79 creatinine 3.16 White count 20.7 hemoglobin 7.1 platelets 304 sodium 1:30 potassium 4.2 BUN 96 creatinine 3.2 on EKG: Sinus tachycardia Chest x-ray film personally reviewed by me-left basal atelectasis. Assessment and plan: --Acute on Chronic congestive heart failure from diastolic dysfunction EF 50- 55%: Not improving Patient failed a Lasix drip. With no urine output. On hemodialysis -Autonomic gastroparesis causing vomiting. -Acute medical debility multifactorial -Acute metabolic encephalopathy and delirium. Multifactorial -Chronic autonomic dysfunction from diabetes- Fall precautions -Chronic stable angina with a prior history of positive nuclear stress test. Imdur ER 30 mg a day -Chronic lower extremity wounds. Continue wound care. -Essential hypertension Lopressor 50 mg twice a day -Secondary pulmonary hypertension due to CHF Follow clinically -Diabetes mellitus type 2 on ozempic. Uncontrolled with hypoglycemia Diabetic diet Follow Accu-Cheks. -Diabetic peripheral neuropathy Neurontin 100 mg daily at bedtime -Hyperlipidemia Lipitor 40 mg a day -COPD in a previous smoker DuoNeb twice a day -Chronic kidney disease stage 4 likely combination of diabetic nephropathy and hypertensive nephrosclerosis, progressed to end-stage kidney disease: Sodium respond Hemodialysis started November 19. Patient pulled out his dialysis catheter on November 20. Dialysis catheter placed again on November 21. -Primary osteoarthritis of the hip Tylenol as needed -Anorexia, multifactorial Encourage oral intake. Hopefully to improve with hemodialysis Prognosis guarded. Patient has a sitter. Delirious. Patient's and her daughter to come in to discussCODE STATUS.
[2021-11-22 16:33] LABS: Glucose,Whole Blood 125 mg/dL (75-99)
--- NOTE | 2021-11-22 17:14 | P.PN ---
Subjective Progress Note Date: 11/22/21 Principal diagnosis: Acute on chronic hypoxic respiratory failure secondary to fluid overload secondary to end-stage renal disease and secondary to chronic diastolic congestive heart failure, and medications noncompliance. 11/20/2021, the patient is awake and alert. He is undergoing hemodialysis changes or the undergone 2 sessions of hemodialysis and the patient is going to undergo his first session with a goal of ultrafiltration of 2 L. There is third spacing and edema is improving. He had ascites, abdominal wall edema, lower extremity edema with seems to be better. Mentally, he is also less cloudy, much more alert and responsive on today's evaluation. No significant shortness of breath. He is resting comfortably in bed. The patient has a white cell count of 24 with hemoglobin 8.2, his potassium level is at 3.6. His creatinine is down to 2.5 and a BUN is a 57. LFTs are showing some mild elevation of alkaline phosphatase of 294 with a bilirubin of 1.3. ALT and AST are all essentially within normal limits. His albumin serums at 1.7. 11/21/2021, the patient is doing well. Underwent hemodialysis yesterday. He had adequate ultrafiltration in the volume status gradually improving. Noted the patient tolerated the procedure well and later on during the day the patient was found to have blood within the IJ permacath that had been pulled out. Based on that, the patient is scheduled to have another internal jugular permacath reinsertion. He is afebrile. He is hemodynamically stable. Lower extremity edema is improved. He is currently on 5 L O2 nasal cannula with a pulse is a 93%. Breathing is nonlabored. He is afebrile. The blood cultures of been negative. White cell count is at 27 with a hemoglobin of 7.6. Blood sugar is at 150. Less encephalopathic. Reevaluated today on 11/22/21, patient had his hemodialysis catheter replaced. Patient is being dialyzed, doing fairly well, does not seem to be in any distress. Chest x-ray continues to show evidence of interstitial edema he is on 5 L nasal cannula with O2 session about 94%. is at bedside, sister is also at bedside, apparently the patient has been pulling his IV lines, and there is a concern that he may pull out his dialysis catheter again. WBC count today is 27.3 hemoglobin is 7.6 electrolytes are normal BUN is 43 creatinine 2.61. Objective - Vital Signs Vital signs: Vital Signs Temp 98.4 F 11/22/21 12:26 Pulse 80 11/22/21 12:26 Resp 21 11/22/21 12:26 BP 111/68 11/22/21 12:26 Pulse Ox 94 L 11/22/21 09:00 Intake & Output 11/21/21 11/22/21 11/22/21 18:59 06:59 18:59 Intake Total 20 540 300 Output Total 450 826 Balance 20 90 -526 Intake: IV 20 Oral 540 0 Hemodialysis 300 Output: Urine 450 Hemodialysis 826 Other: Voiding Method Indwelling Catheter Indwelling Catheter Indwelling Catheter - Exam GENERAL EXAM: Revealed 51-year-old white male lethargic, arousable, in no dis tress. HEAD: Normocephalic/atraumatic. ENT: PERRLA, EOMI, anicteric, no neck masses no JVD no stridor. CHEST: No chest wall deformity. Symmetrical expansion. LUNGS: Symmetrical chest expansion crackles at the bases. Dialysis catheter noted in the right subclavian area. CVS: Regular rate and rhythm, normal S1 and S2, no gallops, no murmurs, no rubs ABDOMEN: Soft, nontender. No hepatosplenomegaly, normal bowel sounds, no guarding or rigidity. EXTREMITIES: No clubbing, there is edema, no cyanosis, 2+ pulses and upper and lower extremities. MUSCULOSKELETAL: Muscle strength and tone normal. SKIN: No rashes CENTRAL NERVOUS SYSTEM: Lethargic but arousable No focal deficits, tone is normal in all 4 extremities. - Labs CBC & Chem 7: 11/21/21 07:47 11/21/21 07:47 Labs: Abnormal Lab Results - Last 24 Hours (Table) 11/21/21 11/22/21 11/22/21 Range/Units 20:05 06:06 11:48 POC Glucose (mg/dL) 148 H 146 H 137 H (75-99) mg/dL 11/22/21 Range/Units 16:32 POC Glucose (mg/dL) 125 H (75-99) mg/dL Microbiology - Last 24 Hours (Table) 11/18/21 12:12 Blood Culture - Preliminary Blood No Growth after 96 hours 11/18/21 12:12 Blood Culture - Preliminary Blood No Growth after 96 hours Assessment and Plan Assessment: Impression: Acute on chronic hypoxic respiratory failure secondary to interstitial edema and fluid overload secondary to renal failure. History of chronic diastolic congestive heart failure Chronic kidney disease stage IV on hemodialysis History of COVID-19 pneumonia and previous hospitalization in 2020 Type 1 diabetes poorly controlled Hypertension Dyslipidemia History of diabetic foot ulcers and diabetic peripheral neuropathy Chronic obstructive pulmonary disease Medical debility and multiple comorbidities Anemia of chronic disease Medications noncompliance Acute metabolic toxic encephalopathy Recommendation: Continue present supportive care measures Continue hemodialysis Continue close monitoring of his encephalopathy We will continue to follow. Patient has poor long-term prognosis. Time with Patient: Less than 30
[2021-11-22 20:13] LABS: Glucose,Whole Blood 119 mg/dL (75-99)
[2021-11-22] MEDS: GABAPENTIN 100 MG CAP PO SCH (20:28)
[2021-11-22] MEDS: ATORVASTATIN 40 MG TAB PO SCH (20:28)
[2021-11-23 06:11] LABS: Glucose,Whole Blood 132 mg/dL (75-99)
[2021-11-23] MEDS: INSULIN ASPART (NovoLOG) 100 UNIT/ML VIAL SQ SCH ×4 (06:14→20:45)
[2021-11-23] MEDS: MIDODRINE 5 MG TAB PO SCH ×3 (06:17→17:23)
[2021-11-23] MEDS: PANTOPRAZOLE 40 MG TABLET PO SCH (06:18)
[2021-11-23] MEDS: ASPIRIN 81 MG PO SCH (08:13)
[2021-11-23] MEDS: DULoxetine HCL 60 MG CAPSULE.DR PO SCH (08:13)
[2021-11-23] MEDS: HEPARIN SODIUM,PORCINE/PF 5,000 UNIT/0.5 ML SYRINGE SQ SCH ×2 (08:13→15:55)
[2021-11-23] MEDS: METOPROLOL TARTRATE 50 MG TAB PO SCH ×2 (08:13→20:48)
[2021-11-23] MEDS: ISOSORBIDE MONONITRATE ER 30 MG TAB.ER.24H PO SCH (08:13)
[2021-11-23] MEDS: IPRATROPIUM-ALBUTEROL 3 ML NEB INHALATION SCH ×2 (09:18→19:30)
--- NOTE | 2021-11-23 11:14 | P.PN ---
Subjective Patient is seen for follow-up for acute kidney injuries, started on hemodialysis on 11/18/2021 for persistent volume overload. Patient's dialysis catheter had come out. Concern regarding confusion from hypoxia resulting in catheter being pulled out. Patient is status post new IJ catheter placement Patient was dialyzed yesterday. UF at 826 mL as blood pressure was running low. This morning patient is laying in bed he is comfortable. Not in any acute distress. He has a large dressing on his catheter as an attempt to not have him pulled it out. Objective - Vital Signs Vital signs: Vital Signs Temp 97.9 F 11/23/21 08:00 Pulse 72 11/23/21 09:27 Resp 14 11/23/21 08:00 BP 101/62 11/23/21 08:00 Pulse Ox 90 L 11/23/21 08:00 Intake & Output 11/22/21 11/23/21 11/23/21 18:59 06:59 18:59 Intake Total 300 480 118 Output Total 826 50 0 Balance -526 430 118 Weight 88.5 kg Intake: Oral 0 480 118 Hemodialysis 300 Output: Urine 50 0 Uretheral (Giraldo) 50 0 Hemodialysis 826 Other: Voiding Method Indwelling Catheter Indwelling Catheter Indwelling Catheter # Bowel Movements 1 - Exam awake, comfortable Examination of the heart S1 and S2 Examination lungs decreased breath sounds at the bases Abdomen is soft nontender Examination of lower extremities shows trace edema and chronic skin changes. [employer] exam grossly intact, currently doesn't appear to be confused - Labs CBC & Chem 7: 11/21/21 07:47 11/21/21 07:47 Labs: Abnormal Lab Results - Last 24 Hours (Table) 11/22/21 11/22/21 11/22/21 Range/Units 11:48 16:32 20:09 POC Glucose (mg/dL) 137 H 125 H 119 H (75-99) mg/dL 11/23/21 Range/Units 06:09 POC Glucose (mg/dL) 132 H (75-99) mg/dL Microbiology - Last 24 Hours (Table) 11/18/21 12:12 Blood Culture - Preliminary Blood No Growth after 96 hours 11/18/21 12:12 Blood Culture - Preliminary Blood No Growth after 96 hours Assessment and Plan Assessment: 1. Chronic kidney disease stage IV secondary to diabetic kidney disease and cardiorenal syndrome currently started on dialysis secondary to severe volume overload on 11/18/2021 2. Acute on chronic diastolic CHF with moderate tricuspid regurgitation 4. Type 2 diabetes 5. Hypervolemic hyponatremia 6. Acute kidney injury, ATN secondary to cardiorenal syndrome started on dialysis on 11/18/2021. Patient's catheter came out yesterday. He may have pulled it out while he was confused since his oxygen was not on as well. Status post new catheter placement 7, hypervolemia , slowly improving Plan: Hemodialysis in a.m. Hold hemodialysis today Increase intake Increase activity as tolerated
[2021-11-23 11:41] LABS: Glucose,Whole Blood 141 mg/dL (75-99)
--- NOTE | 2021-11-23 12:19 | P.PN ---
Subjective Progress Note Date: 11/23/21 Principal diagnosis: Acute on chronic hypoxic respiratory failure secondary to fluid overload secondary to end-stage renal disease and secondary to chronic diastolic congestive heart failure, and medications noncompliance. 11/20/2021, the patient is awake and alert. He is undergoing hemodialysis changes or the undergone 2 sessions of hemodialysis and the patient is going to undergo his first session with a goal of ultrafiltration of 2 L. There is third spacing and edema is improving. He had ascites, abdominal wall edema, lower extremity edema with seems to be better. Mentally, he is also less cloudy, much more alert and responsive on today's evaluation. No significant shortness of breath. He is resting comfortably in bed. The patient has a white cell count of 24 with hemoglobin 8.2, his potassium level is at 3.6. His creatinine is down to 2.5 and a BUN is a 57. LFTs are showing some mild elevation of alkaline phosphatase of 294 with a bilirubin of 1.3. ALT and AST are all essentially within normal limits. His albumin serums at 1.7. 11/21/2021, the patient is doing well. Underwent hemodialysis yesterday. He had adequate ultrafiltration in the volume status gradually improving. Noted the patient tolerated the procedure well and later on during the day the patient was found to have blood within the IJ permacath that had been pulled out. Based on that, the patient is scheduled to have another internal jugular permacath reinsertion. He is afebrile. He is hemodynamically stable. Lower extremity edema is improved. He is currently on 5 L O2 nasal cannula with a pulse is a 93%. Breathing is nonlabored. He is afebrile. The blood cultures of been negative. White cell count is at 27 with a hemoglobin of 7.6. Blood sugar is at 150. Less encephalopathic. Reevaluated today on 11/22/21, patient had his hemodialysis catheter replaced. Patient is being dialyzed, doing fairly well, does not seem to be in any distress. Chest x-ray continues to show evidence of interstitial edema he is on 5 L nasal cannula with O2 session about 94%. is at bedside, sister is also at bedside, apparently the patient has been pulling his IV lines, and there is a concern that he may pull out his dialysis catheter again. WBC count today is 27.3 hemoglobin is 7.6 electrolytes are normal BUN is 43 creatinine 2.61. Reevaluated today on 11/23/21, patient remains on the third floor, his is at bedside, and is symmetric is also at bedside. Patient is not receiving hemodialysis today, he did receive hemodialysis yesterday. He seems to be a bit more awake today and more cooperative. Does not seem to be in distress, and he is definitely less lethargic compared to yesterday. Patient is on 5 L nasal cannula, O2 saturation is 92%. WBC count is 27.3, electrolytes are normal. BUN is 43 creatinine 2.61 L were actually from 2 days ago. Objective - Vital Signs Vital signs: Vital Signs Temp 98.2 F 11/23/21 11:34 Pulse 76 11/23/21 11:34 Resp 14 11/23/21 11:34 BP 103/57 11/23/21 11:34 Pulse Ox 92 L 11/23/21 11:34 Intake & Output 11/22/21 11/23/21 11/23/21 18:59 06:59 18:59 Intake Total 300 480 118 Output Total 826 50 0 Balance -526 430 118 Weight 88.5 kg Intake: Oral 0 480 118 Hemodialysis 300 Output: Urine 50 0 Uretheral (Giraldo) 50 0 Hemodialysis 826 Other: Voiding Method Indwelling Catheter Indwelling Catheter Indwelling Catheter # Bowel Movements 1 - Exam GENERAL EXAM: Revealed 51-year-old white male less lethargic today, awake, in no distress, on 5 L nasal cannula. HEAD: Normocephalic/atraumatic. ENT: PERRLA, EOMI, anicteric, no neck masses no JVD no stridor. CHEST: No chest wall deformity. Symmetrical expansion. LUNGS: Symmetrical chest expansion crackles at the bases. Dialysis catheter noted in the right subclavian area. CVS: Regular rate and rhythm, normal S1 and S2, no gallops, no murmurs, no rubs ABDOMEN: Soft, nontender. No hepatosplenomegaly, normal bowel sounds, no guarding or rigidity. EXTREMITIES: No clubbing, there is edema, no cyanosis, 2+ pulses and upper and lower extremities. MUSCULOSKELETAL: Muscle strength and tone normal. SKIN: No rashes CENTRAL NERVOUS SYSTEM: Awake, oriented 3, no gross focal deficit but seems to be generally weak. - Labs CBC & Chem 7: 11/21/21 07:47 11/21/21 07:47 Labs: Abnormal Lab Results - Last 24 Hours (Table) 11/22/21 11/22/21 11/23/21 Range/Units 16:32 20:09 06:09 POC Glucose (mg/dL) 125 H 119 H 132 H (75-99) mg/dL 11/23/21 Range/Units 11:40 POC Glucose (mg/dL) 141 H (75-99) mg/dL Microbiology - Last 24 Hours (Table) 11/18/21 12:12 Blood Culture - Preliminary Blood No Growth after 96 hours 11/18/21 12:12 Blood Culture - Preliminary Blood No Growth after 96 hours Assessment and Plan Assessment: Impression: Acute on chronic hypoxic respiratory failure secondary to interstitial edema and fluid overload secondary to renal failure. History of chronic diastolic congestive heart failure Chronic kidney disease stage IV on hemodialysis History of COVID-19 pneumonia and previous hospitalization in 2020 Type 1 diabetes poorly controlled Hypertension Dyslipidemia History of diabetic foot ulcers and diabetic peripheral neuropathy Chronic obstructive pulmonary disease Medical debility and multiple comorbidities Anemia of chronic disease Medications noncompliance Acute metabolic toxic encephalopathy Recommendation: Continue present supportive care measures Continue hemodialysis Continue close monitoring of his encephalopathy Will follow as needed. Patient has poor long-term prognosis. Time with Patient: Less than 30
--- NOTE | 2021-11-23 15:16 | P.PN ---
Progress Note - Text Progress Note Date: 11/23/21 History of presenting complaint This is a pleasant 51-year-old patient, chronic stable medical conditions include diabetes mellitus type 2, peripheral neuropathy, hyperlipidemia patient has chronic lower extremity leg wounds. CHF 50-55%, Autonomic dysfunction from diabetes. Causing orthostatics. oxygen at 5 L via nasal cannula at home. presents to ER with complaints of difficulty breathing and generalized weakness. Patient also having worsening bilateral lower extremity edema and weight gain. Symptoms have been getting worse for the past 3 days. Denied any complaints of cough or sputum production. No fever no chills. No headache or dizziness or lightheadedness. Chest x-ray showed mild cardiomegaly. Prominent hypoventilatory changes limiting reassessment. Patchy opacities and possible trace effusions. Correlate for mild to moderate CHF. Patient was started on IV Lasix 40 mg every 8 hourly in the ER. EKG showed sinus tachycardia. Laboratory showed WBC 9.3 hemoglobin 11.9 and platelets 259 sodium 130 potassium 3.7 chloride 97 bicarb is 23 BUN 84 and creatinine 3.05 and blood sugar is 239 lactic acid 1.5 total bilirubin was 1.5 alk phos 207 and proBNP 79095 and albumin level is 2.5. Most recent echocardiogram in September 2021 showed ejection fraction 55 to 60% and moderate TR and mild MR and moderate TR and mild pulmonary hypertension and small generalized pericardial effusion and large pleural effusion. Patient was previously admitted to the hospital due to COVID-19 infection requiring mechanical ventilation and also history of infective endocarditis. November 18: I assumed care of patient today. Patient had been on Lasix drip. Minimal urine output. Lasix drip was discontinued. Poor appetite. Vascular surgery consulted for dialysis catheter placement and dialysis to be started today. Fluid restriction. Patient feeling tired and rundown. November 19: Patient started hemodialysis yesterday. Another dialysis today. Not much of an appetite. Discussed with the at the bedside. Encourage oral intake. Tired. November 20: Patient had urinalysis done today. Ate a little bit. No edema. Tired. As the patient to sit up in a chair with assistance. November 21: Yesterday patient reported out as hemodialysis catheter. Patient is due to have another catheter this afternoon. Poor oral intake. Tired. November 22: Patient delirious. Has a sitter. Dialysis catheter placed right chest wall. Spoke to patient's girlfriend Myrna. Will have patient's daughter come in tomorrow and discuss CODE STATUS. Also discussed with Dr. Rodgers. DO NOT RESUSCITATE appears to be appropriate November 23: Patient got dialyzed yesterday. More awake today. Tired but communicating better. Did eat some today. Had a family meeting with patient's mother children several members. CODE STATUS was discussed. Patient daughter will further talk to the patient and decide later today. Patient remains full code currently. Active Medications Hydrocodone Bitart/Acetaminophen (Hydrocodone/Apap 5-325mg 1 Each Tab) 1 each PO Q6HR PRN PRN Reason: Pain Last Admin: 11/19/21 13:42 Dose: 1 each Documented by: Albuterol/Ipratropium (Ipratropium-Albuterol 3 Ml Neb) 3 ml INHALATION RT- BID@0900,2100 [facility] Last Admin: 11/23/21 09:18 Dose: 3 ml Documented by: Aspirin (Aspirin 81 Mg) 81 mg PO DAILY@0900 [facility] Last Admin: 11/23/21 08:13 Dose: 81 mg Documented by: Atorvastatin Calcium (Atorvastatin 40 Mg Tab) 40 mg PO HS@2100 [facility] Last Admin: 11/22/21 20:28 Dose: 40 mg Documented by: Darbepoetin Andrez (Darbepoetin Andrez 40 Mcg/0.4 Ml Syringe) 40 mcg SQ Q7D [facility] Last Admin: 11/21/21 09:58 Dose: 40 mcg Documented by: Duloxetine HCl (Duloxetine Hcl 60 Mg Capsule.) 60 mg PO DAILY@0900 [facility] Last Admin: 11/23/21 08:13 Dose: 60 mg Documented by: Gabapentin (Gabapentin 100 Mg Cap) 100 mg PO [facility] Last Admin: 11/22/21 20:28 Dose: 100 mg Documented by: Heparin Sodium (Porcine) (Heparin Sodium,Porcine/Pf 5,000 Unit/0.5 Ml Syringe) 5,000 unit SQ Q8HR [facility] Last Admin: 11/23/21 08:13 Dose: 5,000 unit Documented by: Insulin Aspart (Insulin Aspart (Novolog) 100 Unit/Ml Vial) 0 unit SQ [facility]; Protocol Last Admin: 11/23/21 12:19 Dose: 1 unit Documented by: Isosorbide Mononitrate (Isosorbide Mononitrate Er 30 Mg Tab.Er.24h) 30 mg PO DAILY@0900 [facility] Last Admin: 11/23/21 08:13 Dose: 30 mg Documented by: Metoprolol Tartrate (Metoprolol Tartrate 50 Mg Tab) 50 mg PO BID@0900,2100 [facility] Last Admin: 11/23/21 08:13 Dose: 50 mg Documented by: Midodrine (Midodrine 5 Mg Tab) 10 mg PO AC-TID [facility] Last Admin: 11/23/21 11:29 Dose: 10 mg Documented by: Miscellaneous Information (Potassium Replacement Protocol 1 Each Misc) 1 each MISCELLANE DAILY PRN; Protocol PRN Reason: Per Protocol Ondansetron HCl (Ondansetron 4 Mg/2 Ml Vial) 4 mg IVP Q6HR PRN PRN Reason: Nausea And Vomiting Pantoprazole Sodium (Pantoprazole 40 Mg Tablet) 40 mg PO DAILY@0730 [facility] Last Admin: 11/23/21 06:18 Dose: 40 mg Documented by: Ropinirole HCl (Ropinirole Hcl 0.25 Mg Tab) 0.25 mg PO HS@2100 [facility] Last Admin: 11/22/21 20:28 Dose: 0.25 mg Documented by: Past medical history to include: Diabetes, hyperlipidemia, peripheral neuropathy, MRSA infection including abscess and cellulitis,, anxiety, diabetic autonomic dysfunction. CHF EF 50-55% Social history: Currently at [employer]. Previously did [employer]. Smoking 2 packs a day for 32 years. , Stopped less than a year ago. Alcohol occasionally. Physical examination: VITAL SIGNS: 98.2, 76, 14, 103/57, 92% on 5 L GENERAL: , laying in bed , more awake tired. Right chest wall dialysis catheter EYES: Pupils equal. Conjunctiva normal. HEENT: External appearance of nose and ears normal, oral cavity grossly normal. NECK: JVD not raised; masses not palpable. HEART: First and second heart sounds are normal; edema present LUNGS: Respiratory rate normal; decreased breath sounds. ABDOMEN: Soft, some distended nontender, liver spleen not palpable, no masses palpable. PSYCH: Answering questions appropriately MUSCULOSKELETAL:No Clubbing/cyanosis;muscles-grossly intact NEUROLOGICAL: [Cranial nerves grossly intact; no facial asymmetry, decreased sensation distally. INVESTIGATIONS, reviewed in the clinical context: November 21: White count was 7.3 hemoglobin 7.6 potassium 3.7 creatinine 2.61 November 20: White count 28.7 hemoglobin 7.1 November 19: White count 27.6 hemoglobin 7.8 potassium 4.1. 79 creatinine 3.16 White count 20.7 hemoglobin 7.1 platelets 304 sodium 1:30 potassium 4.2 BUN 96 creatinine 3.2 on EKG: Sinus tachycardia Chest x-ray film personally reviewed by me-left basal atelectasis. Assessment and plan: --Acute on Chronic congestive heart failure from diastolic dysfunction EF 50- 55%: Better Patient failed a Lasix drip. With no urine output. On hemodialysis -Autonomic gastroparesis causing vomiting. -Acute medical debility multifactorial -Acute metabolic encephalopathy and delirium. Multifactorial: Slow to respond -Chronic autonomic dysfunction from diabetes- Fall precautions -Chronic stable angina with a prior history of positive nuclear stress test. Imdur ER 30 mg a day -Chronic lower extremity wounds. Continue wound care. -Essential hypertension Lopressor 50 mg twice a day -Secondary pulmonary hypertension due to CHF Follow clinically -Diabetes mellitus type 2 on ozempic. Uncontrolled with hypoglycemia Diabetic diet Follow Accu-Cheks. -Diabetic peripheral neuropathy Neurontin 100 mg daily at bedtime -Hyperlipidemia Lipitor 40 mg a day -COPD in a previous smoker DuoNeb twice a day -Chronic kidney disease stage 4 likely combination of diabetic nephropathy and hypertensive nephrosclerosis, progressed to end-stage kidney disease: Sodium respond Hemodialysis started November 19. Patient pulled out his dialysis catheter on November 20. Dialysis catheter placed again on November 21. -Primary osteoarthritis of the hip Tylenol as needed -Anorexia, multifactorial Encourage oral intake. Hopefully to improve with hemodialysis Encourage oral intake. Continue current treatment plan. No hemodialysis today. Advanced care planning: Had a meeting in the room with several family members including 2 daughters, girlfriend and other family members. Several questions answered. They had que stions about kidney transplant. I did inform them that could be best answered by nephrology, but given patient's generalized condition currently not a good candidate. They leaning towards DO NOT RESUSCITATE. They'll further discuss with patient today. Then they'll decide as per patient's choice. Time spent about 25 minutes
[2021-11-23 16:34] LABS: Glucose,Whole Blood 134 mg/dL (75-99)
[2021-11-23 20:09] LABS: Glucose,Whole Blood 113 mg/dL (75-99)
[2021-11-23] MEDS: ATORVASTATIN 40 MG TAB PO SCH (20:48)
[2021-11-23] MEDS: GABAPENTIN 100 MG CAP PO SCH (20:48)
[2021-11-24] MEDS: HEPARIN SODIUM,PORCINE/PF 5,000 UNIT/0.5 ML SYRINGE SQ SCH ×3 (00:20→16:37)
[2021-11-24 06:08] LABS: Glucose,Whole Blood 93 mg/dL (75-99)
[2021-11-24] MEDS: INSULIN ASPART (NovoLOG) 100 UNIT/ML VIAL SQ SCH ×4 (06:29→20:29)
[2021-11-24] MEDS: PANTOPRAZOLE 40 MG TABLET PO SCH (06:29)
[2021-11-24] MEDS: MIDODRINE 5 MG TAB PO SCH ×3 (06:29→16:37)
[2021-11-24] MEDS: IPRATROPIUM-ALBUTEROL 3 ML NEB INHALATION SCH ×2 (07:20→20:03)
[2021-11-24] MEDS: METOPROLOL TARTRATE 50 MG TAB PO SCH ×2 (08:31→19:43)
[2021-11-24] MEDS: ISOSORBIDE MONONITRATE ER 30 MG TAB.ER.24H PO SCH (08:31)
[2021-11-24] MEDS: DULoxetine HCL 60 MG CAPSULE.DR PO SCH (08:31)
[2021-11-24] MEDS: ASPIRIN 81 MG PO SCH (08:31)
[2021-11-24 11:53] LABS: Glucose,Whole Blood 96 mg/dL (75-99)
--- NOTE | 2021-11-24 12:33 | P.PN ---
Subjective Patient is seen for follow-up for acute kidney injury on top of CKD, started on hemodialysis on 11/18/2021 for persistent volume overload. Patient's dialysis catheter had come out. Concern regarding confusion from hypoxia resulting in catheter being pulled out. Patient is status post new IJ catheter placement Patient's BP remains on the lower side, maintained on midodrine. This morning patient is laying in bed he is comfortable. Not in any acute distress. He has a large dressing on his catheter as an attempt to not have him pulled it out. Had a loose bowel movement today. Family present at bedside and I answered multiple questions regarding his nephrological status. Family had questions regarding kidney transplantation. I have advised them that he is currently quite ill and not a candidate for transplantation at this very moment unless his overall general condition improves over the next few months.I have also advised them that routinely if renal function is stable as outpatient patient's are not referred for transplantation unless we see a decline in the renal function which is not acute from other underlying factors. Objective - Vital Signs Vital signs: Vital Signs Temp 98.5 F 11/24/21 11:53 Pulse 70 11/24/21 11:53 Resp 18 11/24/21 11:53 BP 94/61 11/24/21 11:53 Pulse Ox 90 L 11/24/21 11:53 Intake & Output 11/23/21 11/24/21 11/24/21 18:59 06:59 18:59 Intake Total 118 360 0 Output Total 5 5 Balance 113 355 0 Weight 88.5 kg Intake: Oral 118 360 0 Output: Urine 5 5 Uretheral (Giraldo) 0 5 Other: Voiding Method Indwelling Catheter Indwelling Catheter Indwelling Catheter # Voids 0 # Bowel Movements 2 - Exam awake, comfortable Examination of the heart S1 and S2 Examination lungs decreased breath sounds at the bases Abdomen is soft nontender Examination of lower extremities shows 2+ edema and chronic skin changes. [employer] exam grossly intact, currently doesn't appear to be confused - Labs CBC & Chem 7: 11/21/21 07:47 11/21/21 07:47 Labs: Abnormal Lab Results - Last 24 Hours (Table) 11/23/21 11/23/21 Range/Units 16:32 20:06 POC Glucose (mg/dL) 134 H 113 H (75-99) mg/dL Microbiology - Last 24 Hours (Table) 11/18/21 12:12 Blood Culture - Preliminary Blood No Growth after 120 hours 11/18/21 12:12 Blood Culture - Preliminary Blood No Growth after 120 hours Assessment and Plan Assessment: 1. Chronic kidney disease stage IV secondary to diabetic kidney disease and cardiorenal syndrome currently started on dialysis secondary to severe volume overload on 11/18/2021. Patient also has had poor urine output 2. Acute on chronic diastolic CHF with moderate tricuspid regurgitation 4. Type 2 diabetes 5. Hypervolemic hyponatremia 6. Acute kidney injury, ATN secondary to cardiorenal syndrome started on dialysis on 11/18/2021. Patient's catheter came out yesterday. He may have pulled it out while he was confused since his oxygen was not on as well. Status post new catheter placement 7, Hypervolemia , slowly improving Plan: Hemodialysis today Encouraged Increased intake Increase activity as tolerated Increase UF as tolerated Check random cortisol level
--- NOTE | 2021-11-24 15:21 | P.PN ---
Progress Note - Text Progress Note Date: 11/24/21 History of presenting complaint This is a pleasant 51-year-old patient, chronic stable medical conditions include diabetes mellitus type 2, peripheral neuropathy, hyperlipidemia patient has chronic lower extremity leg wounds. CHF 50-55%, Autonomic dysfunction from diabetes. Causing orthostatics. oxygen at 5 L via nasal cannula at home. presents to ER with complaints of difficulty breathing and generalized weakness. Patient also having worsening bilateral lower extremity edema and weight gain. Symptoms have been getting worse for the past 3 days. Denied any complaints of cough or sputum production. No fever no chills. No headache or dizziness or lightheadedness. Chest x-ray showed mild cardiomegaly. Prominent hypoventilatory changes limiting reassessment. Patchy opacities and possible trace effusions. Correlate for mild to moderate CHF. Patient was started on IV Lasix 40 mg every 8 hourly in the ER. EKG showed sinus tachycardia. Laboratory showed WBC 9.3 hemoglobin 11.9 and platelets 259 sodium 130 potassium 3.7 chloride 97 bicarb is 23 BUN 84 and creatinine 3.05 and blood sugar is 239 lactic acid 1.5 total bilirubin was 1.5 alk phos 207 and proBNP 13013 and albumin level is 2.5. Most recent echocardiogram in September 2021 showed ejection fraction 55 to 60% and moderate TR and mild MR and moderate TR and mild pulmonary hypertension and small generalized pericardial effusion and large pleural effusion. Patient was previously admitted to the hospital due to COVID-19 infection requiring mechanical ventilation and also history of infective endocarditis. November 18: I assumed care of patient today. Patient had been on Lasix drip. Minimal urine output. Lasix drip was discontinued. Poor appetite. Vascular surgery consulted for dialysis catheter placement and dialysis to be started today. Fluid restriction. Patient feeling tired and rundown. November 19: Patient started hemodialysis yesterday. Another dialysis today. Not much of an appetite. Discussed with the at the bedside. Encourage oral intake. Tired. November 20: Patient had urinalysis done today. Ate a little bit. No edema. Tired. As the patient to sit up in a chair with assistance. November 21: Yesterday patient reported out as hemodialysis catheter. Patient is due to have another catheter this afternoon. Poor oral intake. Tired. November 22: Patient delirious. Has a sitter. Dialysis catheter placed right chest wall. Spoke to patient's girlfriend Myrna. Will have patient's daughter come in tomorrow and discuss CODE STATUS. Also discussed with Dr. Rodgers. DO NOT RESUSCITATE appears to be appropriate November 23: Patient got dialyzed yesterday. More awake today. Tired but communicating better. Did eat some today. Had a family meeting with patient's mother children several members. CODE STATUS was discussed. Patient daughter will further talk to the patient and decide later today. Patient remains full code currently. November 24: Patient after discussing with the family decided to become DO NOT RESUSCITATE. Eating some today. Daughter had questions about PEG tube feeding. Pros and cons were discussed. The family and the patient and the family meeting with Dr. Rodgers from nephrology. Given his current clinical situation deemed not a candidate for transplantation. Active Medications Hydrocodone Bitart/Acetaminophen (Hydrocodone/Apap 5-325mg 1 Each Tab) 1 each PO Q6HR PRN PRN Reason: Pain Last Admin: 11/19/21 13:42 Dose: 1 each Documented by: Albuterol/Ipratropium (Ipratropium-Albuterol 3 Ml Neb) 3 ml INHALATION RT- BID@0900,2100 [facility] Last Admin: 11/24/21 07:20 Dose: Not Given Documented by: Aspirin (Aspirin 81 Mg) 81 mg PO DAILY@0900 [facility] Last Admin: 11/24/21 08:31 Dose: 81 mg Documented by: Atorvastatin Calcium (Atorvastatin 40 Mg Tab) 40 mg PO HS@2100 [facility] Last Admin: 11/23/21 20:48 Dose: 40 mg Documented by: Darbepoetin Andrez (Darbepoetin Andrez 40 Mcg/0.4 Ml Syringe) 40 mcg SQ Q7D [facility] Last Admin: 11/21/21 09:58 Dose: 40 mcg Documented by: Duloxetine HCl (Duloxetine Hcl 60 Mg Capsule.Dr) 60 mg PO DAILY@0900 [facility] Last Admin: 11/24/21 08:31 Dose: 60 mg Documented by: Gabapentin (Gabapentin 100 Mg Cap) 100 mg PO [facility] Last Admin: 11/23/21 20:48 Dose: 100 mg Documented by: Heparin Sodium (Porcine) (Heparin Sodium,Porcine/Pf 5,000 Unit/0.5 Ml Syringe) 5,000 unit SQ Q8HR [facility] Last Admin: 11/24/21 08:31 Dose: 5,000 unit Documented by: Insulin Aspart (Insulin Aspart (Novolog) 100 Unit/Ml Vial) 0 unit SQ [facility]; Protocol Last Admin: 11/24/21 11:53 Dose: Not Given Documented by: Isosorbide Mononitrate (Isosorbide Mononitrate Er 30 Mg Tab.Er.24h) 30 mg PO DAILY@0900 [facility] Last Admin: 11/24/21 08:31 Dose: 30 mg Documented by: Metoprolol Tartrate (Metoprolol Tartrate 50 Mg Tab) 50 mg PO BID@0900,2100 [facility] Last Admin: 11/24/21 08:31 Dose: 50 mg Documented by: Midodrine (Midodrine 5 Mg Tab) 10 mg PO AC-TID [facility] Last Admin: 11/24/21 11:37 Dose: 10 mg Documented by: Miscellaneous Information (Potassium Replacement Protocol 1 Each Misc) 1 each MISCELLANE DAILY PRN; Protocol PRN Reason: Per Protocol Ondansetron HCl (Ondansetron 4 Mg/2 Ml Vial) 4 mg IVP Q6HR PRN PRN Reason: Nausea And Vomiting Pantoprazole Sodium (Pantoprazole 40 Mg Tablet) 40 mg PO DAILY@0730 [facility] Last Admin: 11/24/21 06:29 Dose: 40 mg Documented by: Ropinirole HCl (Ropinirole Hcl 0.25 Mg Tab) 0.25 mg PO HS@2100 [facility] Last Admin: 11/23/21 20:48 Dose: 0.25 mg Documented by: Past medical history to include: Diabetes, hyperlipidemia, peripheral neuropathy, MRSA infection including abscess and cellulitis,, anxiety, diabetic autonomic dysfunction. CHF EF 50-55% Social history: Currently at [facility]. Previously did [employer]. Smoking 2 packs a day for 32 years. , Stopped less than a year ago. Alcohol occasionally. Physical examination: VITAL SIGNS: 98.5, 70, 18, 94/61, 90% on 5 L GENERAL: , laying in bed , awake tired. Right chest wall dialysis catheter EYES: Pupils equal. Conjunctiva normal. HEENT: External appearance of nose and ears normal, oral cavity grossly normal. NECK: JVD not raised; masses not palpable. HEART: First and second heart sounds are normal; edema present LUNGS: Respiratory rate normal; decreased breath sounds. ABDOMEN: Soft, some distended nontender, liver spleen not palpable, no masses palpable. PSYCH: Answering questions appropriately MUSCULOSKELETAL:No Clubbing/cyanosis;muscles-grossly intact NEUROLOGICAL: [Cranial nerves grossly intact; no facial asymmetry, decreased sensation distally. INVESTIGATIONS, reviewed in the clinical context: Cortisol 39 November 21: White count was 7.3 hemoglobin 7.6 potassium 3.7 creatinine 2.61 November 20: White count 28.7 hemoglobin 7.1 November 19: White count 27.6 hemoglobin 7.8 potassium 4.1. 79 creatinine 3.16 White count 20.7 hemoglobin 7.1 platelets 304 sodium 1:30 potassium 4.2 BUN 96 creatinine 3.2 on EKG: Sinus tachycardia Chest x-ray film personally reviewed by me-left basal atelectasis. Assessment and plan: --Acute on Chronic congestive heart failure from diastolic dysfunction EF 50- 55%: Better Patient failed a Lasix drip. With no urine output. On hemodialysis -Acute medical debility multifactorial -Acute metabolic encephalopathy and delirium. Multifactorial: Some improvement -Chronic autonomic dysfunction from diabetes-including gastroparesis Fall precautions -Chronic stable angina with a prior history of positive nuclear stress test. Imdur ER 30 mg a day -Chronic lower extremity wounds. Continue wound care. -Essential hypertension Lopressor 50 mg twice a day -Secondary pulmonary hypertension due to CHF Follow clinically -Diabetes mellitus type 2 on ozempic. Uncontrolled with hypoglycemia Diabetic diet Follow Accu-Cheks. -Diabetic peripheral neuropathy Neurontin 100 mg daily at bedtime -Hyperlipidemia Lipitor 40 mg a day -COPD in a previous smoker DuoNeb twice a day -Chronic kidney disease stage 4 likely combination of diabetic nephropathy and hypertensive nephrosclerosis, progressed to end-stage kidney disease: Sodium respond Hemodialysis started November 19. Patient pulled out his dialysis catheter on November 20. Dialysis catheter placed again on November 21. -Primary osteoarthritis of the hip Tylenol as needed -Anorexia, multifactorial Encourage oral intake. Hopefully to improve with hemodialysis -DO NOT RESUSCITATE Diet was discussed with the patient and family. Family to bring in some food from home. Tolerating food supplement. CODE STATUS DO NOT RESUSCITATE. Hemodialysis today.
[2021-11-24 16:30] LABS: Glucose,Whole Blood 105 mg/dL (75-99)
[2021-11-24] MEDS: GABAPENTIN 100 MG CAP PO SCH (19:43)
[2021-11-24] MEDS: ATORVASTATIN 40 MG TAB PO SCH (19:43)
[2021-11-24 19:57] LABS: Glucose,Whole Blood 93 mg/dL (75-99)
[2021-11-25] MEDS: HEPARIN SODIUM,PORCINE/PF 5,000 UNIT/0.5 ML SYRINGE SQ SCH (02:06)
[2021-11-25 04:05] VITALS: BP 94/60; PULSE 75; RESP 20; TEMP 97.4
[2021-11-25 06:11] LABS: Glucose,Whole Blood 77 mg/dL (75-99)
[2021-11-25] MEDS: INSULIN ASPART (NovoLOG) 100 UNIT/ML VIAL SQ SCH (06:16)
[2021-11-25] MEDS: PANTOPRAZOLE 40 MG TABLET PO SCH (06:45)
[2021-11-25] MEDS: MIDODRINE 5 MG TAB PO SCH (06:45)
[2021-11-25 09:14] LABS: Glucose,Whole Blood 69 mg/dL (75-99)
--- NOTE | 2021-11-25 09:15 | P.EN ---
Arrived on scene to find patient with dark brown liquid from his mouth. Unresponsive. Nursing had been unable to get pulse-ox or blood pressure to register. Absent cardiac sounds, had 2 agonal breaths then no respirations, pupils fixed and dilated. Time of 908 girlfriend at bedside notified.
[2021-11-25] MEDS: IPRATROPIUM-ALBUTEROL 3 ML NEB INHALATION SCH (10:59)
--- NOTE | 2021-11-29 18:25 | P.DS ---
Providers Date of admission: 11/15/21 19:29 Expected date of discharge: 11/25/21 Attending physician: Armando Pablo Consults: 11/15/21 19:29 Consult Physician Routine Consulting Provider: Sadie Faulkner Consult Reason/Comments: Pulmonary edema Do you want consulting provider notified?: Yes Consult Physician Routine Consulting Provider: Rito Christine Consult Reason/Comments: Renal failure Do you want consulting provider notified?: Yes 11/18/21 08:29 Consult Physician Routine Consulting Provider: Ed Dixon Consult Reason/Comments: insertion of dialysis catheter Do you want consulting provider notified?: Yes [facility] care [facility] Course: History of presenting complaint This is a pleasant 51-year-old patient, chronic stable medical conditions include diabetes mellitus type 2, peripheral neuropathy, hyperlipidemia patient has chronic lower extremity leg wounds. CHF 50-55%, Autonomic dysfunction from diabetes. Causing orthostatics. oxygen at 5 L via nasal cannula at home. presents to ER with complaints of difficulty breathing and generalized weakness. Patient also having worsening bilateral lower extremity edema and weight gain. Symptoms have been getting worse for the past 3 days. Denied any complaints of cough or sputum production. No fever no chills. No headache or dizziness or lightheadedness. Chest x-ray showed mild cardiomegaly. Prominent hypoventilatory changes limiting reassessment. Patchy opacities and possible trace effusions. Correlate for mild to moderate CHF. Patient was started on IV Lasix 40 mg every 8 hourly in the ER. EKG showed sinus tachycardia. Laboratory showed WBC 9.3 hemoglobin 11.9 and platelets 259 sodium 130 potassium 3.7 chloride 97 bicarb is 23 BUN 84 and creatinine 3.05 and blood sugar is 239 lactic acid 1.5 total bilirubin was 1.5 alk phos 207 and proBNP 43386 and albumin level is 2.5. Most recent echocardiogram in September 2021 showed ejection fraction 55 to 60% an d moderate TR and mild MR and moderate TR and mild pulmonary hypertension and small generalized pericardial effusion and large pleural effusion. Patient was previously admitted to the hospital due to COVID-19 infection requiring mechanical ventilation and also history of infective endocarditis. November 18: I assumed care of patient today. Patient had been on Lasix drip. Minimal urine output. Lasix drip was discontinued. Poor appetite. Vascular surgery consulted for dialysis catheter placement and dialysis to be started today. Fluid restriction. Patient feeling tired and rundown. November 19: Patient started hemodialysis yesterday. Another dialysis today. Not much of an appetite. Discussed with the at the bedside. Encourage oral intake. Tired. November 20: Patient had urinalysis done today. Ate a little bit. No edema. Tired. As the patient to sit up in a chair with assistance. November 21: Yesterday patient reported out as hemodialysis catheter. Patient is due to have another catheter this afternoon. Poor oral intake. Tired. November 22: Patient delirious. Has a sitter. Dialysis catheter placed right chest wall. Spoke to patient's girlfriend Myrna. Will have patient's daughter come in tomorrow and discuss CODE STATUS. Also discussed with Dr. Rodgers. DO NOT RESUSCITATE appears to be appropriate November 23: Patient got dialyzed yesterday. More awake today. Tired but communicating better. Did eat some today. Had a family meeting with patient's mother children several members. CODE STATUS was discussed. Patient daughter will further talk to the patient and decide later today. Patient remains full code currently. November 24: Patient after discussing with the family decided to become DO NOT RESUSCITATE. Eating some today. Daughter had questions about PEG tube feeding. Pros and cons were discussed. The family and the patient and the family meeting with Dr. Rodgers from nephrology. Given his current clinical situation deemed not a candidate for transplantation. November 25: Patient went downhill and succumbed to his underlying condition. . A team was called out. Past medical history to include: Diabetes, hyperlipidemia, peripheral neuropathy, MRSA infection including abscess and cellulitis,, anxiety, diabetic autonomic dysfunction. CHF EF 50-55% Social history: Currently at [employer]. Previously did [employer]. Smoking 2 packs a day for 32 years. , Stopped less than a year ago. Alcohol occasionally. INVESTIGATIONS, reviewed in the clinical context: Cortisol 39 November 21: White count was 7.3 hemoglobin 7.6 potassium 3.7 creatinine 2.61 November 20: White count 28.7 hemoglobin 7.1 November 19: White count 27.6 hemoglobin 7.8 potassium 4.1. 79 creatinine 3.16 White count 20.7 hemoglobin 7.1 platelets 304 sodium 1:30 potassium 4.2 BUN 96 creatinine 3.2 on EKG: Sinus tachycardia Chest x-ray film personally reviewed by me-left basal atelectasis. Cause of : Diabetes mellitus2 Assessment and plan: --Acute on Chronic congestive heart failure from diastolic dysfunction EF 50- 55%: Better Patient failed a Lasix drip. With no urine output. On hemodialysis -Acute medical debility multifactorial -Acute metabolic encephalopathy and delirium. Multifactorial: Some improvement -Chronic autonomic dysfunction from diabetes-including gastroparesis Fall precautions -Chronic stable angina with a prior history of positive nuclear stress test. Imdur ER 30 mg a day -Chronic lower extremity wounds. Continue wound care. -Essential hypertension Lopressor 50 mg twice a day -Secondary pulmonary hypertension due to CHF Follow clinically -Diabetes mellitus type 2 on ozempic. Uncontrolled with hypoglycemia Diabetic diet Follow Accu-Cheks. -Diabetic peripheral neuropathy Neurontin 100 mg daily at bedtime -Hyperlipidemia Lipitor 40 mg a day -COPD in a previous smoker DuoNeb twice a day -Chronic kidney disease stage 4 likely combination of diabetic nephropathy and hypertensive nephrosclerosis, progressed to end-stage kidney disease: Sodium respond Hemodialysis started November 19. Patient pulled out his dialysis catheter on November 20. Dialysis catheter placed again on November 21. -Primary osteoarthritis of the hip Tylenol as needed -Anorexia, multifactorial Encourage oral intake. Hopefully to improve with hemodialysis -DO NOT RESUSCITATE Disposition: Patient Plan - Discharge Summary Discharge Rx Participant: No New Discharge Prescriptions: No Action DULoxetine HCL [Cymbalta] 60 mg PO DAILY@0900 rOPINIRole HCL [Requip] 0.25 mg PO HS@2100 Baclofen 5 mg PO Q8H PRN PRN Reason: Muscle Spasm Metoprolol Tartrate [Lopressor] 50 mg PO BID@0900,2100 Omeprazole 40 mg PO DAILY@0900 Atorvastatin [Lipitor] 40 mg PO HS@2100 Isosorbide Mononitrate ER [Imdur] 30 mg PO DAILY@0900 Insulin Lispro [humaLOG Kwikpen] See Protocol SQ ACHS@07,11,16,21 Gabapentin [Neurontin] 100 mg PO HS #3 cap amLODIPine [Norvasc] 5 mg PO BID@0900,2100 Collagenase [Santyl Ointment] 1 applic TOPICAL HS Ipratropium-Albuterol Nebulize [Duoneb 0.5 mg-3 mg/3 ml Soln] 3 ml INHALATION RT-BID@0900,2100 Semaglutide [Ozempic] 0.25 mg SQ FR Aspirin 81 mg PO DAILY@00 Torsemide [Demadex] 20 mg PO BID #60 tab Discharge Medication List DULoxetine HCL [Cymbalta] 60 mg PO DAILY@0904/01/20 [History] amLODIPine [Norvasc] 5 mg PO BID@0900,209909/02/21 [History] rOPINIRole HCL [Requip] 0.25 mg PO HS@209909/02/21 [History] Aspirin 81 mg PO DAILY@89909/22/21 [History] Atorvastatin [Lipitor] 40 mg PO HS@209909/22/21 [History] Baclofen 5 mg PO Q8H PRN 09/22/21 [History] Collagenase [Santyl Ointment] 1 applic TOPICAL HS 09/22/21 [History] Insulin Lispro [humaLOG Kwikpen] See Protocol SQ ACHS@07,11,16,09/22/21 [History] Ipratropium-Albuterol Nebulize [Duoneb 0.5 mg-3 mg/3 ml Soln] 3 ml INHALATION RT-BID@0900,209909/22/21 [History] Isosorbide Mononitrate ER [Imdur] 30 mg PO DAILY@89909/22/21 [History] Metoprolol Tartrate [Lopressor] 50 mg PO BID@899,209909/22/21 [History] Omeprazole 40 mg PO DAILY@89909/22/21 [History] Semaglutide [Ozempic] 0.25 mg SQ FR 09/22/21 [History] Gabapentin [Neurontin] 100 mg PO HS #3 cap 09/27/21 [Rx] Torsemide [Demadex] 20 mg PO BID #60 tab 09/27/21 [Rx] Follow up Appointment(s)/Referral(s): Meet Fontanez DO [Primary Care Provider] - 1-2 days Discharge Disposition: - Preliminary Cause of Preliminary Cause of : Diabetes mellitus
== END 2021-11-25 15:54 | disposition expired | DRG 291 ==
LOC: EC 13:46 → 3SCARD 19:29
PROVIDERS: ADMIT Hospitalist; ATTEND Hospitalist
PROC: 5A1D70Z Performance of Urinary Filtration, Intermittent, Less than 6 Hours Per Day (ICD-10-PCS; principal; 2021-11-18 13:10)
PROC: 05HM33Z Insertion of Infusion Device into Right Internal Jugular Vein, Percutaneous Approach (ICD-10-PCS; 2021-11-18 13:10)
PROC: B543ZZA Ultrasonography of Right Jugular Veins, Guidance (ICD-10-PCS; 2021-11-18 13:10)
PROC: 0JH63XZ Insertion of Tunneled Vascular Access Device into Chest Subcutaneous Tissue and Fascia, Percutaneous Approach (ICD-10-PCS; 2021-11-22)
PROC: 05HM33Z Insertion of Infusion Device into Right Internal Jugular Vein, Percutaneous Approach (ICD-10-PCS; 2021-11-22)
PROC: B5131ZA Fluoroscopy of Right Jugular Veins using Low Osmolar Contrast, Guidance (ICD-10-PCS; 2021-11-22)
PROC: B548ZZA Ultrasonography of Superior Vena Cava, Guidance (ICD-10-PCS; 2021-11-22)
DX: I13.2 Hypertensive heart and chronic kidney disease with heart failure and with stage 5 chronic kidney disease, or end stage renal disease (principal); N17.0 Acute kidney failure with tubular necrosis; G92.8 Other toxic encephalopathy; I50.33 Acute on chronic diastolic (congestive) heart failure; J96.21 Acute and chronic respiratory failure with hypoxia; N18.6 End stage renal disease; I33.0 Acute and subacute infective endocarditis; G93.41 Metabolic encephalopathy; E87.1 Hypo-osmolality and hyponatremia; J98.11 Atelectasis; R18.8 Other ascites; I31.3 Pericardial effusion (noninflammatory); F05 Delirium due to known physiological condition; I50.82 Biventricular heart failure; Z66 Do not resuscitate; I13.0 Hypertensive heart and chronic kidney disease with heart failure and stage 1 through stage 4 chronic kidney disease, or unspecified chronic kidney disease; R26.2 Difficulty in walking, not elsewhere classified; E86.0 Dehydration; D63.1 Anemia in chronic kidney disease; E10.22 Type 1 diabetes mellitus with diabetic chronic kidney disease; E10.319 Type 1 diabetes mellitus with unspecified diabetic retinopathy without macular edema; E10.42 Type 1 diabetes mellitus with diabetic polyneuropathy; E10.43 Type 1 diabetes mellitus with diabetic autonomic (poly)neuropathy; E10.622 Type 1 diabetes mellitus with other skin ulcer; E10.21 Type 1 diabetes mellitus with diabetic nephropathy; E10.649 Type 1 diabetes mellitus with hypoglycemia without coma; E10.65 Type 1 diabetes mellitus with hyperglycemia; I08.3 Combined rheumatic disorders of mitral, aortic and tricuspid valves; K31.84 Gastroparesis; D50.9 Iron deficiency anemia, unspecified; E87.6 Hypokalemia; T50.1X5A Adverse effect of loop [high-ceiling] diuretics, initial encounter; E66.3 Overweight; M10.9 Gout, unspecified; J44.9 Chronic obstructive pulmonary disease, unspecified; E78.5 Hyperlipidemia, unspecified; R00.0 Tachycardia, unspecified; E87.70 Fluid overload, unspecified; E83.51 Hypocalcemia; F41.9 Anxiety disorder, unspecified; G90.1 Familial dysautonomia [Riley-Day]; I20.8 Other forms of angina pectoris; I27.29 Other secondary pulmonary hypertension; M16.10 Unilateral primary osteoarthritis, unspecified hip; N50.89 Other specified disorders of the male genital organs; W19.XXXA Unspecified fall, initial encounter; Z79.4 Long term (current) use of insulin; Z79.82 Long term (current) use of aspirin; Z79.899 Other long term (current) drug therapy; Z83.3 Family history of diabetes mellitus; Z86.14 Personal history of Methicillin resistant Staphylococcus aureus infection; Z87.891 Personal history of nicotine dependence; Z91.14 Patient's other noncompliance with medication regimen; Z99.2 Dependence on renal dialysis; X58.XXXA Exposure to other specified factors, initial encounter; Z98.42 Cataract extraction status, left eye; Z98.41 Cataract extraction status, right eye
CPT/HCPCS: 36415; 36556; 36558; 71045; 71046; 76937; 77001; 80048; 80053; 81001; 82533; 82728; 83540; 83550; 83605; 83735; 83880; 83970; 84100; 84484; 85025; 85027; 85610; 85730; 86704; 86706; 86850; 86900; 86901; 87040; 87340; 90935; 93005; 93306; 94640; 94760; 96365; 96367; 96375; 96376; 99285